=== PATIENT | male | born 1965 | race Caucasian/White ===

== ENCOUNTER → 2019-04-26 11:38 | Outpatient (CLI) | payer MEDICARE, OTHER, SELFPAY ==
--- NOTE | 2019-04-26 12:01 | US_ITS ---
EXAM DESCRIPTION: Ultrasound the testicles CLINICAL HISTORY: 53 years Male, RT GROIN (NOT LEFT)PAIN X 2 WEEKS COMPARISON: None. FINDINGS: A bilateral testicular ultrasound was performed showing a homogeneous internal pattern of the testicles with the following measurements: Right testicle: 3.5 cm. x 2.6cm. x 2.0 cm. Left testicle: 3.3 cm. x 2.6cm. x 2.0 cm. There is good color Doppler flow noted in both testicles, with no evidence of an internal testicular mass. The epididymis appears shows multiple small epididymal cysts bilaterally the largest on the right measuring 6 x 4 x 4 mm in size. A small right hydrocele is seen. US/Testicular with Arterial Flow IMPRESSION: Some tiny epididymal cysts are noted in both epididymis is. No evidence of testicular torsion or other abnormalities are seen. Electronically Signed: Gumaro Graham, at 14:20 EST Tel , Service support ,
[2019-04-26 13:33] LABS: Absolute Lymphocyte Count 1.69 X10^3/uL (0.83-4.51); Absolute Neutrophil Count 5.3 X10^3/uL (2.0-7.7); Basophil# 0.03 X10^3/uL; Basophil% 0.4 % (0-1); Eosinophil# 0.22 X10^3/uL; Eosinophils% 2.7 % (0-5); Hematocrit 48.9 % (40-54); Hemoglobin 16.7 g/dL (13.0-16.5); Lymphocyte # 1.69 X10^3/ul (4.0); Lymphocyte % 20.7 % (19-41); Mean Corp Hgb Conc 34.2 g/dL (32-36); Mean Corpuscular Hgb 28.9 pg (27.0-32.0); Mean Corpuscular Volume 84.6 fL (80-94); Mean Platelet Vol. 9.8 fl (6.2-12.0); Monocyte# 0.88 X10^3/uL; Monocyte% 10.8 % (0-10); NRBC Flagged by Analyzer 0 % (0-5); Neutrophil # 5.31 X10^3/uL (2.7-7.7); Platelet Count 158 K/mm3 (150-450); RBC Distribution Width CV 12.5 % (11.6-14.6); RBC Distribution Width SD 37.5 fl (35.1-43.9); Red Blood Count 5.78 M/mm3 (4.6-6.2); White Blood Count 8.2 K/mm3 (4.4-11.0)
[2019-04-26 13:58] LABS: ALB/GLOB Ratio 1.1 RATIO (0.9-2.4); AST(SGOT) 29 U/L (15-37); Alanine Aminotransfer ALT/SGPT 42 U/L (16-61); Albumin, Serum 4.1 g/dL (3.2-5.0); Alkaline Phosphatase 68 U/L (45-117); Anion Gap 7 (5-15); BUN 13 mg/dL (7-18); BUN/Creat Ratio 10.9 RATIO (10-20); Calcium,Total 8.9 mg/dL (8.5-10.1); Chloride 105 mmol/L (98-107); Creatinine, Serum 1.19 mg/dL (0.70-1.30); EST Glomerular Filtration Rate 68 mL/min (>60); Est Glom Filt Rate - Afr Amer 82 mL/min (>60); Globulin 3.7 g/dL (2.2-4.2); Glucose 99 mg/dL (74-106); Potassium 3.8 mmol/L (3.5-5.1); Protein, Total 7.8 g/dL (6.4-8.2); Sodium Level 138 mmol/L (136-145); Vitamin D,25 Hydroxy 38.3 ng/mL
== END ==
DX: R10.31 Right lower quadrant pain (principal); R79.89 Other specified abnormal findings of blood chemistry; E55.9 Vitamin D deficiency, unspecified
CPT/HCPCS: 36415; 76870; 80053; 82306; 85025; 93976

== ENCOUNTER → 2019-05-06 | Outpatient (CLI) | payer MEDICARE, OTHER, SELFPAY ==
[2019-05-06 10:42] LABS: Hemoglobin A1c 6.4 % (4.2-6.3)
[2019-05-06 10:50] LABS: Vitamin B12 464 pg/mL (211-911)
[2019-05-06 11:01] LABS: Ferritin 75 ng/mL (26-388); Iron Binding Capacity,Total 283 ug/dL (250-450); Magnesium 1.8 mg/dL (1.6-2.6)
[2019-05-06 16:42] LABS: Iron 50 ug/dL (65-175)
== END | disposition home or self-care (01) ==
DX: R53.83 Other fatigue (principal); R73.03 Prediabetes; F41.9 Anxiety disorder, unspecified; E61.1 Iron deficiency
CPT/HCPCS: 36415; 82607; 82728; 82746; 83036; 83540; 83550; 83735

== ENCOUNTER 2019-05-12 19:58 | Emergency (ER) | payer MEDICARE, OTHER, SELFPAY ==
[2019-05-12 20:00] VITALS: BP 137/76; PULSE 83; RESP 18; TEMP 36.8; O2SAT 94; BMI 35.2
[2019-05-12 21:30] VITALS: RESP 16
--- NOTE | 2019-05-12 22:31 | CT_ITS ---
STUDY: CT ABDOMEN AND PELVIS WITH CONTRAST REASON FOR EXAM: Male, 53 years old. Lower abdominal pain. History of diverticulitis. RADIATION DOSAGE (If Supplied By Facility): CTDIvol = ( 16.94 ) mGy, DLP = ( 1335.32 ) mGycm TECHNIQUE: Transaxial images were obtained from the dome of the diaphragm to the symphysis pubis without oral contrast. IV 100mL Isovue-300 was administered. Sagittal and coronal images were reconstructed. Individualized dose optimization techniques were used for this CT. COMPARISON: None. FINDINGS: The visualized lung bases are unremarkable. The visualized portions of the heart are within normal limits. Normal liver. There are surgical clips in the gallbladder fossa consistent with a prior cholecystectomy. There is mild splenomegaly. Spleen measures 15.1 cm in greatest craniocaudad dimension. Normal pancreas. Normal bilateral adrenal glands. Normal right kidney. Normal left kidney. Normal visualized stomach. Normal small intestine. Mild wall thickening, diverticulosis and mild pericolonic inflammatory changes involving a 7.5 cm segment of the mid sigmoid colon left hemipelvis axial image 95 and coronal image 66. Additional scattered diverticuli involving the descending and sigmoid colon. The appendix is probably visualized, is very small, and appears normal. Normal abdominal aorta. Normal inferior vena cava. Normal retroperitoneum. No intra-abdominal free air. Normal urinary bladder. Prostate gland is borderline enlarged. Normal abdominal wall. Mild degenerative changes of the lower thoracic and upper lumbar spine. CT/Abdomen/Pelvis W IV Cont ONLY IMPRESSION: Acute sigmoid diverticulitis without evidence of perforation. Mild splenomegaly. Borderline prostate gland enlargement. Electronically Signed: Pollo Rosales MD at 0:06 EDT , Service support ,
--- NOTE | 2019-05-12 22:35 | ED.VISSUMM ---
- ER Visit Summary Date of Service: 05/12/19 Chief Complaint: Planing of bilateral lower abdominal pain for 3 weeks. History of Present Illness: The patient is a 53 M history of diverticulosis, prior stroke and Parkinson's disease. Prior appendectomy and cholecystectomy. Patient states has had pain for about 3 weeks of lower abdomen. Saw his primary care physician in [facility]. Was placed on antibiotics and had a ultrasound of his testicles which was negative. States the pain is not improved. He was on amoxicillin. Patient denies fever. He denies nausea or vomiting. He denies diarrhea. He does have mild dysuria. Physical Examination: Middle-aged male no acute distress vital signs are stable afebrile. Does not look septic or toxic. HEENT exam normal. Neck nontender. Lungs clear to auscultation. Heart regular rhythm no murmur. Abdomen is soft. Bilateral lower quadrant tenderness. No hernia. No masses. No obstruction. No peritoneal signs. External exam is unremarkable. Normal scrotum and testicles are nontender nonenlarged. No masses. No inguinal lymphadenopathy. Extremities moves all 4. Neurologically is awake and alert. Test Results: Again at 10. Hemoglobin 15. No bands chemistries normal except creatinine 1.41. Liver enzymes negative. UA negative. CAT scan abdomen pelvis with IV contrast read both the radiologist and reviewed by me shows sigmoid diverticulitis. Mild splenomegaly. Mild BPH. I went over all the test results with the patient and his significant other. Emergency Department Course and Treatment: Patient treated with IV morphine and Zofran for pain. A liter of normal saline. Screening labs and CAT scan are being obtained along with urinalysis. Patient given 1 dose of oral Cipro and Flagyl prior to discharge. Treatment Plan: Cipro twice daily for 10 days. Flagyl 3 times daily for 10 days. [place] for pain. Zofran for nausea. Follow-up. Disposition: Discharge Impression: Acute bilateral lower quadrant abdominal pain [place] to sigmoid diverticulitis This note was generated with [employer] dictation software. It may contain incorrect words, spelling, and punctuation that were not noted in review of the chart prior to signing ED Disposition - Plan for ED Patient: Referrals: [facility] Doctor,Out of [NON-STAFF] -
[2019-05-12] MEDS: 0.9% Normal Saline 1,000 ML 1000 ML IV (22:50)
[2019-05-12] MEDS: Ondansetron 4 MG/2 ML Vial IV (22:50)
[2019-05-12] MEDS: morphine 8 MG/ML Syringe 6 MG IV (22:52)
[2019-05-12 22:55] LABS: Bacteria 0 SEEN /hpf (None Seen); Mucous, Urine 0 SEEN /hpf (<or=2+); Red Blood Cells-Urine 0 SEEN /hpf (0-5); Squamous Epithelial Cells - UA 0 SEEN /hpf (0-5); White Blood Cells 0 SEEN /hpf (0-5)
[2019-05-12 22:58] LABS: Color, Urine Yellow (Yellow); Glucose, Dipstick Normal (Normal); Ketone-Dipstick Negative (Negative); Leukocyte Esterase-Dipstick Negative /ul (Negative); Nitrite-Dipstick Negative (Negative); Occult Blood-Urine 10 /ul (Negative); Protein-Dipstick Negative (Negative); Specific Gravity, Urine 1.015 (1.002-1.030); Urine Bilirubin Dipstick Negative (Negative); Urine Clarity Clear (Clear); Urine Urobilinogen Normal (Normal)
[2019-05-12 23:00] LABS: Absolute Lymphocyte Count 1.72 X10^3/uL (0.83-4.51); Absolute Neutrophil Count 7.5 X10^3/uL (2.0-7.7); Basophil# 0.06 X10^3/uL; Basophil% 0.6 % (0-1); Eosinophil# 0.35 X10^3/uL; Eosinophils% 3.2 % (0-5); Hematocrit 47.2 % (40-54); Hemoglobin 15.8 g/dL (13.0-16.5); Lymphocyte # 1.72 X10^3/ul (4.0); Lymphocyte % 15.8 % (19-41); Mean Corp Hgb Conc 33.5 g/dL (32-36); Mean Corpuscular Hgb 28.3 pg (27.0-32.0); Mean Corpuscular Volume 84.4 fL (80-94); Mean Platelet Vol. 10.1 fl (6.2-12.0); Monocyte# 1.07 X10^3/uL; Monocyte% 9.8 % (0-10); NRBC Flagged by Analyzer 0 % (0-5); Neutrophil # 7.52 X10^3/uL (2.7-7.7); Neutrophil % 69.1 % (47-70); Platelet Count 166 K/mm3 (150-450); RBC Distribution Width CV 12.8 % (11.6-14.6); Red Blood Count 5.59 M/mm3 (4.6-6.2); White Blood Count 10.9 K/mm3 (4.4-11.0)
[2019-05-12 23:07] LABS: ALB/GLOB Ratio 1.1 RATIO (0.9-2.4); AST(SGOT) 21 U/L (15-37); Alanine Aminotransfer ALT/SGPT 36 U/L (16-61); Albumin, Serum 3.9 g/dL (3.2-5.0); Alkaline Phosphatase 69 U/L (45-117); Anion Gap 8 (5-15); BUN 14 mg/dL (7-18); BUN/Creat Ratio 9.9 RATIO (10-20); Calcium,Total 8.8 mg/dL (8.5-10.1); Chloride 106 mmol/L (98-107); Creatinine, Serum 1.41 mg/dL (0.70-1.30); EST Glomerular Filtration Rate 56 mL/min (>60); Est Glom Filt Rate - Afr Amer 67 mL/min (>60); Globulin 3.7 g/dL (2.2-4.2); Glucose 110 mg/dL (74-106); Protein, Total 7.6 g/dL (6.4-8.2); Sodium Level 139 mmol/L (136-145)
[2019-05-12 23:32] VITALS: BP 141/78; PULSE 74; RESP 14; TEMP 36.6; O2SAT 95
[2019-05-13] MEDS: morphine 8 MG/ML Syringe 6 MG IV (00:01)
--- NOTE | 2019-05-13 00:31 | ED.DEP ---
ED Disposition - Plan for ED Patient: Disposition: Home or Assisted Living Instructions: Diverticulitis Prescriptions: Ciprofloxacin [Cipro] 500 mg PO BID #20 tab Prescription Printed Metronidazole [Flagyl] 500 mg PO Q8 #30 tab Prescription Printed Hydrocodone Bitart/Apap 5-325 [Woodrow 5MG-325MG] 1 tab PO Q4H PRN PRN 2 Days #14 tab PRN Reason: Pain Prescription Printed Ondansetron [Zofran Odt] 4 mg PO Q8H PRN PRN #10 tab PRN Reason: Nausea Prescription Printed Referrals: [facility],Out of [NON-STAFF] - 1 Week Additional Instructions: With your doctor in a week to ensure you are improving. [place]row as needed for pain and/or Motrin. Cipro 1 pill 2 times a day for 10 days. Flagyl 1 pill 3 times a day for 10 days. Do not drink any alcohol while you are on the Cipro. Plenty of fluids and rest. Zofran as needed for nausea.
[2019-05-13] MEDS: metroNIDAZOLE 500 MG Tablet PO (00:50)
[2019-05-13] MEDS: Ciprofloxacin 500 MG Tablet PO (00:50)
[2019-05-13 00:54] VITALS: RESP 16
== END 2019-05-13 00:55 | disposition home or self-care (01) ==
PROVIDERS: Emergency Provider Emergency Medicine
DX: K57.32 Diverticulitis of large intestine without perforation or abscess without bleeding (principal); R30.0 Dysuria; G20 Parkinson's disease; R16.1 Splenomegaly, not elsewhere classified; N40.0 Benign prostatic hyperplasia without lower urinary tract symptoms; Z79.82 Long term (current) use of aspirin; Z79.899 Other long term (current) drug therapy; Z86.73 Personal history of transient ischemic attack (TIA), and cerebral infarction without residual deficits; Z90.49 Acquired absence of other specified parts of digestive tract
CPT/HCPCS: 74177; 80053; 81001; 85025; 96361; 96374; 96375; 96376; 99285; J7030; Q9967; A4216; J2405

== ENCOUNTER → 2019-07-26 09:21 | Outpatient (CLI) | payer MEDICARE, SELFPAY ==
--- NOTE | 2019-07-26 09:35 | MRI_ITS ---
STUDY: MRI ABDOMEN WITH AND WITHOUT CONTRAST REASON FOR EXAM: Male, 54 years old. ruq pain -- pain, enlarged spleen, f/t CT TECHNIQUE: Standardized fat and water weighted pulse sequences were obtained in all 3 orthogonal planes post contrast administration. dotarem 23ml IV was administered for the contrast portion of the examination. COMPARISON: CT 05/12/2019 FINDINGS: The visualized lung bases are unremarkable. The visualized portions of the heart are within normal limits. Normal liver. There are surgical clips in the gallbladder fossa consistent with a prior cholecystectomy. There is mild splenomegaly. Normal pancreas. Normal bilateral adrenal glands. Normal right kidney. Normal left kidney. Normal visualized stomach. Normal small intestine. Normal colon. There is non-visualization of the appendix. Normal abdominal aorta. Normal inferior vena cava. Normal retroperitoneum. Normal abdominal wall. Normal osseous structures. MRI/MRI Abd WITH and W/O Contrast IMPRESSION: Mild splenomegaly. Electronically Signed: Arcenio Deng MD at 10:58 EDT Tel , Service support ,
== END ==
DX: R16.1 Splenomegaly, not elsewhere classified (principal); R10.11 Right upper quadrant pain
CPT/HCPCS: 74183; A9575

== ENCOUNTER 2019-10-17 10:38 | Emergency (ER) | payer OTHER, MEDICARE, SELFPAY ==
[2019-10-17 10:39] VITALS: BP 140/78; PULSE 107; PULSE 108; RESP 17; RESP 19; TEMP 36.6; O2SAT 94; O2SAT 95; BMI 34.1
--- NOTE | 2019-10-17 11:07 | CT_ITS ---
STUDY: CT ABDOMEN AND PELVIS WITH CONTRAST REASON FOR EXAM: Male, 54 years old. LLQ AND RLQ PAIN/NAUSEA/HX OF DIVERTICULITIS RADIATION DOSAGE (If Supplied By Facility): CTDIvol = ( 15.90 ) mGy, DLP = ( 1107.40 ) mGycm TECHNIQUE: Transaxial images were obtained from the dome of the diaphragm to the symphysis pubis without oral contrast. Oral and amp; IV [place] and amp; 100mL Isovue-300 was administered. Sagittal and coronal images were reconstructed. Individualized dose optimization techniques were used for this CT. COMPARISON: None. FINDINGS: The visualized lung bases are unremarkable. The visualized portions of the heart are within normal limits. Normal liver. There are surgical clips in the gallbladder fossa consistent with a prior cholecystectomy. Normal spleen. Normal pancreas. Normal bilateral adrenal glands. Normal right kidney. Normal left kidney. Normal visualized stomach. Normal small intestine. There is diverticulosis, with thickening of the colon wall, and pericolonic inflammation changes consistent with acute diverticulitis. There is non-visualization of the appendix. Normal abdominal aorta. Normal inferior vena cava. Normal retroperitoneum. Normal urinary bladder. Normal abdominal wall. Normal osseous structures. CT/Abdomen/Pelvis WITH Contrast IMPRESSION: Sigmoid diverticulitis. There is no evidence of abscess. There is no free air in the abdomen. Electronically Signed: Damari Mtz, at 14:06 EDT Tel , Service support ,
[2019-10-17] MEDS: Ondansetron 4 MG/2 ML Vial IV (11:15)
[2019-10-17] MEDS: Morphine 4 MG/ML Syringe IV ×2 (11:15→14:24)
[2019-10-17 11:27] LABS: Absolute Lymphocyte Count 0.72 X10^3/uL (0.83-4.51); Absolute Neutrophil Count 13.1 X10^3/uL (2.0-7.7); Basophil# 0.03 X10^3/uL; Basophil% 0.2 % (0-1); Eosinophils% 0.7 % (0-5); Hematocrit 45.7 % (40-54); Hemoglobin 15.6 g/dL (13.0-16.5); Lymphocyte # 0.72 X10^3/ul (4.0); Lymphocyte % 4.7 % (19-41); Mean Corp Hgb Conc 34.1 g/dL (32-36); Mean Corpuscular Hgb 29.4 pg (27.0-32.0); Mean Corpuscular Volume 86.2 fL (80-94); Monocyte# 1.34 X10^3/uL; Monocyte% 8.7 % (0-10); NRBC Flagged by Analyzer 0 % (0-5); Neutrophil % 85.2 % (47-70); Platelet Count 141 K/mm3 (150-450); RBC Distribution Width CV 12.1 % (11.6-14.6); RBC Distribution Width SD 38.1 fl (35.1-43.9); White Blood Count 15.4 K/mm3 (4.4-11.0)
[2019-10-17 11:39] LABS: ALB/GLOB Ratio 1.1 RATIO (0.9-2.4); AST(SGOT) 15 U/L (15-37); Alanine Aminotransfer ALT/SGPT 32 U/L (16-61); Albumin, Serum 3.9 g/dL (3.2-5.0); Alkaline Phosphatase 68 U/L (45-117); BUN 13 mg/dL (7-18); BUN/Creat Ratio 10.7 RATIO (10-20); Calcium,Total 8.9 mg/dL (8.5-10.1); Chloride 106 mmol/L (98-107); Creatinine, Serum 1.22 mg/dL (0.70-1.30); EST Glomerular Filtration Rate 66 mL/min (>60); Est Glom Filt Rate - Afr Amer 80 mL/min (>60); Estimated Creatinine Clearance 71.47 ml/min; Globulin 3.5 g/dL (2.2-4.2); Glucose 145 mg/dL (74-106); Lipase 84 U/L (73-393); Potassium 4.2 mmol/L (3.5-5.1); Protein, Total 7.4 g/dL (6.4-8.2); Sodium Level 137 mmol/L (136-145)
[2019-10-17 11:40] LABS: Anion Gap 2 (5-15)
--- NOTE | 2019-10-17 11:52 | ED.VISSUMM ---
- ER Visit Summary Date of Service: 10/17/19 Chief Complaint: Abdominal pain History of Present Illness: The patient is a 54 M presenting with abdominal pain. Patient states this started yesterday. He states he has had multiple episodes of diverticulitis and this feels similar. He has had nausea and vomiting. He states his last bowel movement was yesterday. Denies blood in his stool. History of previous appendectomy and cholecystectomy. Denies other complaints. Physical Examination: Vitals are stable. Patient is afebrile. Alert no acute distress. HEENT exam is unremarkable. Neck is supple. Lungs are clear and equal bilaterally. Heart is regular rate and rhythm. Abdomen is soft left lower quadrant and right lower quadrant tenderness with no guarding or rebound Extremities are unremarkable. Skin is warm and dry. Remainder of exam is unremarkable. Emergency Department Course and Treatment: Patient was given morphine, Zofran IV. CBC shows white count 15.4, platelet 141. Chemistries show glucose 145. Liver lipase are normal. Urinalysis unremarkable. CT abdomen pelvis shows sigmoid diverticulitis. There is no evidence of abscess. There is no free air in the abdomen. Patient continues to have pain was given a GI cocktail and additional dose of morphine. On reevaluation, patient is resting comfortably. He states his primary care physician already called him in a prescription for Cipro and Flagyl. He is advised to take these medications until complete. Advised to follow-up with primary care physician. Also given referral to Dr. Giraldo, general surgery for recurrent diverticulitis. Advised return to ED for worsening complaints. Disposition: Discharge home Impression: Diverticulitis This note was generated with [employer] dictation software. It may contain incorrect words, spelling, and punctuation that were not noted in review of the chart prior to signing ED Disposition - Plan for ED Patient: Instructions: ED Diverticulitis Referrals: Thuy Hannah [Other] Tay Giraldo MD [STAFF PHYSICIAN] -
[2019-10-17 12:11] LABS: Bacteria 0 SEEN /hpf (None Seen); Squamous Epithelial Cells - UA 0 SEEN /hpf (0-5); White Blood Cells 0 SEEN /hpf (0-5)
[2019-10-17 12:15] LABS: Color, Urine Yellow (Yellow); Glucose, Dipstick Normal (Normal); Ketone-Dipstick Negative (Negative); Leukocyte Esterase-Dipstick 25 /ul (Negative); Nitrite-Dipstick Negative (Negative); Occult Blood-Urine 10 /ul (Negative); Protein-Dipstick 15 mg/dl (Negative); Urine Bilirubin Dipstick Negative (Negative); Urine Clarity Clear (Clear); Urine Urobilinogen Normal (Normal); Urine pH 6.5 (5.0 - 8.0)
[2019-10-17 12:20] LABS: Red Blood Cells-Urine 0-5 SEEN /hpf (0-5)
[2019-10-17 12:21] LABS: Mucous, Urine RARE /hpf (<or=2+)
[2019-10-17] MEDS: Mag Hydrox/Al Hydrox/Simeth 30 ML UDC PO (13:15)
[2019-10-17 14:27] VITALS: BP 121/76; RESP 16
--- NOTE | 2019-10-17 14:54 | ED.DEP ---
ED Disposition - Plan for ED Patient: Instructions: ED Diverticulitis Referrals: Thuy Hannah [Other]
--- NOTE | 2019-10-17 14:56 | ED.DEP ---
ED Disposition - Plan for ED Patient: Instructions: ED Diverticulitis Referrals: Thuy Hannah [Other] Tay Giraldo MD [STAFF PHYSICIAN] -
[2019-10-17] MEDS: Ciprofloxacin 500 MG Tablet PO (15:11)
[2019-10-17] MEDS: metroNIDAZOLE 500 MG Tablet PO (15:12)
[2019-10-17 15:17] VITALS: RESP 18
== END 2019-10-17 15:18 | disposition home or self-care (01) ==
LOC: ED 11:29
PROVIDERS: Emergency Provider Emergency Medicine
DX: K57.32 Diverticulitis of large intestine without perforation or abscess without bleeding (principal); G20 Parkinson's disease; Z79.82 Long term (current) use of aspirin; Z79.899 Other long term (current) drug therapy; Z90.49 Acquired absence of other specified parts of digestive tract
CPT/HCPCS: 74177; 80053; 81001; 83690; 85025; 96374; 96375; 96376; 99284; J7030; Q9967; A4216; J2405

== ENCOUNTER 2020-01-31 08:59 | Day surgery (SDC) | payer OTHER, MEDICARE, SELFPAY ==
[2020-01-07 12:35] VITALS: BMI 34.7
--- NOTE | 2020-01-31 09:00 | HP_ITS ---
Intake Vital Signs 01/07/20 Height 5 ft 11 in 01/07/20 Weight: 249 lb 01/07/20 BP 144/78 H 01/07/20 Blood Pressure Location Rt brachial 01/07/20 Position Sitting 01/07/20 Respiration 18 01/07/20 Pulse 72 01/07/20 Pulse Source Monitor 01/07/20 Temp 98.3 F 01/07/20 Temp Source Temporal 01/07/20 Pulse Oximetry (%) 96 01/07/20 Oxygen Delivery Method room air Intake Visit Reasons: DIVERTICULITIS Chief Complaint: Diverticulitis/abdominal pain Software Quality Analyst Required: No Accompanied by: Is patient in pain?: Yes Allergies No Known Allergies Allergy (Verified 01/07/20 12:37) Medications Aspirin 81 mg PO DAILY 05/12/19 [History Confirmed 01/07/20] Cholecalciferol (VIT D3) [Vitamin D] 2,000 unit PO DAILY 05/12/19 [History Confirmed 01/07/20] Melatonin [Melatin] 9 mg PO DAILY 05/12/19 [History Confirmed 01/07/20] Pantoprazole Sodium [Protonix] 80 mg PO BID 05/12/19 [History Confirmed 01/07/20] Paroxetine HCl 75 mg PO DAILY 05/12/19 [History Confirmed 01/07/20] Trazodone HCl 250 mg PO DAILY 05/12/19 [History Confirmed 01/07/20] atorvastatin 20 mg tablet 40 mg PO DAILY tab 01/07/20 [History Confirmed 01/07/20] carbidopa 50 mg-levodopa 200 mg-entacapone 200 mg tablet 1 tab PO DAILY 01/07/20 [History Confirmed 01/07/20] carbidopa ER 36.25 mg-levodopa 145 mg capsule,extended release 1 cap PO TID 01/07/20 [History Confirmed 01/07/20] diltiazem HCl 30 mg tablet 60 mg PO DAILY tab 01/07/20 [History Confirmed 01/07/20] prazosin 5 mg capsule 6 mg PO DAILY cap 01/07/20 [History Confirmed 01/07/20] [facility] Medical History GERD (gastroesophageal reflux disease) (Acute) Constipation (Acute) Sleep apnea (Acute) Depression with anxiety (Acute) Abdominal pain (Acute) Diverticulitis (Acute) Surgical History (Updated 01/07/20 @ 12:34 by Itzel Delatorre) History of appendectomy (Acute) History of laparoscopic cholecystectomy (Acute) Family History (Updated 01/07/20 @ 12:48 by Itzle Delatorre) Mother Heart disease Hypertension High cholesterol Cancer skin cancer Father Heart disease High cholesterol Hypertension CVA (cerebral vascular accident) Social History (Updated 01/07/20 @ 13:[address] Jay Chavez MD) Smoking Status: Smoker, status unknown alcohol intake: never substance use type: does not use HPI HPI HPI: KRISHAN BURNHAM is a 54 M who presents to the office today for HPI HPI Surgical H&P: Yes HPI: KRISHAN BURNHAM, is a 54 M who presents to the office today for diverticulitis. The patient has had several bouts of diverticulitis in his past. He reports he chronically has left lower quadrant pain. His last bout of diverticulitis was this past March and this past September. He reports he is never had complicated diverticulitis. He does have constipation leading up to his flareups. He reports no nausea or vomiting. He has no fevers or chills. He has no history or family history of inflammatory bowel disease. His last colonoscopy was 6 years ago. ROS General General: No weight change, appetite, fatigue, colon cancer, breast cancer or weakness Endo Endocrine: No thyroid disease, diabetes mellitus, thyroid cancer, Hair loss, heat intolerance or cold intolerance Skin Skin: No rash or changing moles Breast Breast: No left breast lump, right breast lump, nipple discharge, breast pain, abnormal mammogram, abnormal US or breast enlargement Musc Musculoskeletal: No back problems, arthritis, rheumatoid arthritis, gout or joint pain Cardio Cardiovascular: No murmur, pacemaker, heart disease, atrial fibrillation, high blood pressure, heart attack, heart stent, palpitations, shortness of breat with exertion or chest pain Psych Psychiatric: Yes depression and anxiety; no hearing voices Resp Respiratory: No shortness of breath, Yes sleep apnea, No cough, No COPD, No asthma, No emphysema, No wheezing Gastro Gastrointestinal: Yes abdominal pain, No nausea or vomiting, No diarrhea, Yes constipation, No blood in stool, Yes acid reflux, No hemorrhoids, No ulcers, No gallbladder problem, No black,tarry stools Skyler Hematologic: No blood thinners, No blood disorders, No bleeding, No anemia, No blood clots Neuro Neurologic: No system reviewed and no additional complaints, except as docu, No as per HPI, No abnormal walking, No abnormal hearing, No abnormal movements, No abnormal speech, No behavioral changes, No burning sensations, No confusion, No seizure-like activity, No unsteadiness, No dizziness, No localized weakness, No frequent falls, No headache(s), No lack of coordination, No loss of vision, No memory loss, No numbness, No other visual disturbances, No radiating pain, No restless legs, No sensory deficit, No fainting, No tingling, No tremor(s), No weakness, No other Exam Const General: cooperative Orientation: alert, oriented x3 Chest Breast Palpation: No nipple discharge Resp Effort & Inspection: normal respiratory effort Auscultation: clear to auscultation bilaterally Cardio Rate: regular rate Rhythm: regular rhythm Heart Sounds: no murmurs GI Inspection: non-distended Palpation: soft, tender in the LLQ Assessment & Plan Problems 1. 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 I recommended sigmoid colectomy to the patient. I discussed this with him in detail. I recommended colonoscopy as his last one was 6 years ago and he did have polyps. I explained endoscopy in detail to the patient. I explained the risks including but not limited to stroke or heart attack with anesthesia, perforation of the GI tract, bleeding, infection. I explained that any of these could necessitate further emergency surgery. The patient understands and all questions were answered sufficiently. The patient wishes to proceed with procedure. Jay Chavez MD Pager: [facility] [address] [place] [address], [address] [place] [address] Office: Orders Orders: Colonoscopy Today K57.92 Coding Level of Care Code Off vis,new,level 3 Diagnoses Diverticulitis K57.92 I have re-examined the patient. There are no clinical changes since date of exam.
[2020-01-31 09:16] VITALS: BP 133/78; PULSE 82; RESP 16; TEMP 36.8; O2SAT 98; BMI 34.1
[2020-01-31] MEDS: Lactated Ringers 1,000 ML 100 ML IV (09:27)
--- NOTE | 2020-01-31 10:34 | OP.COLON_ITS ---
Patient Name: Arcenio Hernández Procedure Date: 01/31/2020 10:11 AM Date of : 1965 Age: 54 Procedure: Colonoscopy Indications: Follow-up of diverticulitis Providers: Jay Chavez MD Referring MD: Jay Chavez MD Medicines: Monitored Anesthesia Care Patient Profile: This is a 54 year old male. Refer to note in patient chart for documentation of history and physical. Last Colonoscopy: several years ago. Complications: No immediate complications. Procedure: Pre-Anesthesia Assessment: - Prior to the procedure, a History and Physical was performed, and patient medications and allergies were reviewed. The patient's tolerance of previous anesthesia was also reviewed. The risks and benefits of the procedure and the sedation options and risks were discussed with the patient. All questions were answered, and informed consent was obtained. Prior Anticoagulants: The patient has taken no previous anticoagulant or antiplatelet agents. After reviewing the risks and benefits, the patient was deemed in satisfactory condition to undergo the procedure. After I obtained informed consent, the scope was passed under direct vision. Throughout the procedure, the patient's blood pressure, pulse, and oxygen saturations were monitored continuously. The Colonoscope was introduced through the anus and advanced to the cecum, identified by appendiceal orifice and ileocecal valve. The colonoscopy was performed without difficulty. The patient tolerated the procedure well. The quality of the bowel preparation was good. Scope In: 10:18:45 AM Scope Withdrawal Time 0 hours 6 minutes 14 seconds Scope Out: 10:28:07 AM Total Procedure Duration Time 0 hours 9 minutes 22 seconds Findings: A few small-mouthed diverticula were found in the sigmoid colon. The entire examined colon appeared normal on direct and retroflexion views. Impression: - Diverticulosis in the sigmoid colon. - The entire examined colon is normal on direct and retroflexion views. - No specimens collected. Recommendation: - Discharge patient to home. - Resume previous diet. - Continue present medications. - Repeat colonoscopy in 10 years for screening purposes. - Return to my office at appointment to be scheduled. Procedure Code(s): --- Professional --- 11256, Colonoscopy, flexible; diagnostic, including collection of specimen(s) by brushing or washing, when performed (separate procedure) Diagnosis Code(s): --- Professional --- K57.32, Diverticulitis of large intestine without perforation or abscess without bleeding K57.30, Diverticulosis of large intestine without perforation or abscess without bleeding CPT copyright 2017 [employer]. All rights reserved. The codes documented in this report are preliminary and upon radiologic technology teacher review may be revised to meet current compliance requirements. Jay Chavez MD 01/31/2020 10:34:23 AM This report has been signed electronically. Number of Addenda: 0 Note Initiated On: 01/31/2020 10:11 AM
[2020-01-31 10:35] VITALS: BP 133/78; BP 91/56; PULSE 68; RESP 16; TEMP 36.8; O2SAT 95
--- NOTE | 2020-01-31 10:35 | OP.CCLET_ITS ---
01/31/2020 Thuy Hannah Np-c Re : Colonoscopy procedure for Arcenio Hernández [place] This procedure was performed on Friday, January 31, 2020. My impressions and recommendations are as follows: Impressions : - Diverticulosis in the sigmoid colon. - The entire examined colon is normal on direct and retroflexion views. - No specimens collected. Recommendations : - Discharge patient to home. - Resume previous diet. - Continue present medications. - Repeat colonoscopy in 10 years for screening purposes. - Return to my office at appointment to be scheduled. My findings are described in the full procedure note, which is enclosed. If I can be of further assistance, please feel free to contact me at Doctor phone number(s): , Work: . Sincerely, Jay Chavez MD 01/31/2020 10:34:23 AM This report has been signed electronically.
[2020-01-31 10:40] VITALS: BP 133/78; BP 94/56; PULSE 67; RESP 16; O2SAT 94
[2020-01-31 10:45] VITALS: BP 102/53; BP 133/78; PULSE 68; RESP 16; O2SAT 94
[2020-01-31 10:50] VITALS: BP 118/80; BP 133/78; PULSE 77; RESP 16; TEMP 37.2; O2SAT 94
== END 2020-01-31 11:14 | disposition home or self-care (01) ==
LOC: EN 09:00 → AC 09:00
PROVIDERS: PCP Nurse Practitioner Family; Referring Provider Surgery; Visit Provider Surgery
PROC: 0DJD8ZZ Inspection of Lower Intestinal Tract, Via Natural or Artificial Opening Endoscopic (ICD-10-PCS; CPT 45378; principal; 2020-01-31 09:55)
DX: K57.32 Diverticulitis of large intestine without perforation or abscess without bleeding (principal); K59.00 Constipation, unspecified; G20 Parkinson's disease; E78.00 Pure hypercholesterolemia, unspecified; Z79.82 Long term (current) use of aspirin; Z79.899 Other long term (current) drug therapy; Z86.010 Personal history of colon polyps
CPT/HCPCS: 45378; 87426; C9803; J7120; J2405

== ENCOUNTER 2020-02-24 08:51 | Inpatient (IN) | payer OTHER, MEDICARE, SELFPAY ==
[2020-02-07 09:35] VITALS: BMI 33.5
[2020-02-19 10:25] LABS: Hematocrit 47.3 % (40-54); Mean Corp Hgb Conc 33.8 g/dL (32-36); Mean Corpuscular Hgb 29.8 pg (27.0-32.0); Mean Corpuscular Volume 88.1 fL (80-94); Mean Platelet Vol. 10.1 fl (6.2-12.0); Platelet Count 138 K/mm3 (150-450); RBC Distribution Width CV 12.5 % (11.6-14.6); RBC Distribution Width SD 39.8 fl (35.1-43.9); Red Blood Count 5.37 M/mm3 (4.6-6.2); White Blood Count 7.3 K/mm3 (4.4-11.0)
[2020-02-19 10:38] LABS: Magnesium 2.2 mg/dL (1.6-2.6)
--- NOTE | 2020-02-19 10:57 | EKG12_ITS ---
Test Reason : PREOP Blood Pressure : / mmHG Vent. Rate : 065 BPM Atrial Rate : 065 BPM P-R Int : 184 ms QRS Dur : 080 ms QT Int : 378 ms P-R-T Axes : 022 -09 032 degrees QTc Int : 393 ms Normal sinus rhythm Normal ECG Confirmed by GINA REDD, JUICE ([id number]), science editor MENDY CHEEMA ([id number]) on 02/20/2020 8:46:15 AM Referred By: Jay Chavez Confirmed By:JUICE FUENTES MD
[2020-02-24] VITALS (12 sets, daily range): BP systolic 119–183; BP diastolic 69–93; PULSE 75–85; RESP 16–18; TEMP 36.6–37.4; O2SAT 90–100; BMI 34.7
--- NOTE | 2020-02-24 08:26 | HP_ITS ---
Intake Vital Signs 02/07/20 Height 5 ft 11 in 02/07/20 Weight: 240 lb 02/07/20 BMI 33.5 02/07/20 BP 128/80 H 02/07/20 Blood Pressure Location Lt brachial 02/07/20 Position Sitting 02/07/20 Respiration 16 02/07/20 Pulse 67 02/07/20 Pulse Source Monitor 02/07/20 Temp 98.4 F 02/07/20 Temp Source Temporal 02/07/20 Pulse Oximetry (%) 97 02/07/20 Oxygen Delivery Method room air Intake Visit Reasons: 1wk f/u C-Scope 01/30 Chief Complaint: Diverticulitis/abdominal pain Coating Mixer Required: No Is patient in pain?: Yes (LLQ) Pain scale (1-10): 3 Allergies No Known Allergies Allergy (Verified 02/07/20 09:42) Medications Aspirin 81 mg PO DAILY 05/12/19 [History Confirmed 02/07/20] Cholecalciferol (VIT D3) [Vitamin D] 2,000 unit PO DAILY 05/12/19 [History Confirmed 02/07/20] Melatonin [Melatin] 9 mg PO DAILY 05/12/19 [History Confirmed 02/07/20] Pantoprazole Sodium [Protonix] 80 mg PO BID 05/12/19 [History Confirmed 02/07/20] Paroxetine HCl 75 mg PO DAILY 05/12/19 [History Confirmed 02/07/20] Trazodone HCl 250 mg PO DAILY 05/12/19 [History Confirmed 02/07/20] atorvastatin 20 mg tablet 40 mg PO DAILY tab 01/07/20 [History Confirmed 02/07/20] carbidopa 50 mg-levodopa 200 mg-entacapone 200 mg tablet 1 tab PO DAILY 01/07/20 [History Confirmed 02/07/20] carbidopa ER 36.25 mg-levodopa 145 mg capsule,extended release 1 cap PO TID 01/07/20 [History Confirmed 02/07/20] diltiazem HCl 30 mg tablet 60 mg PO DAILY tab 01/07/20 [History Confirmed 02/07/20] prazosin 5 mg capsule 6 mg PO DAILY cap 01/07/20 [History Confirmed 02/07/20] metronidazole 500 mg tablet 500 mg PO .COMPLEX #6 tab 02/07/20 [Rx Confirmed 02/07/20] neomycin 500 mg tablet 500 mg PO .COMPLEX #6 tab 02/07/20 [Rx Confirmed 02/07/20] [facility] Medical History GERD (gastroesophageal reflux disease) (Acute) Constipation (Acute) Sleep apnea (Acute) Depression with anxiety (Acute) Abdominal pain (Acute) Diverticulitis (Acute) Surgical History History of appendectomy (Acute) History of laparoscopic cholecystectomy (Acute) Family History Mother Heart disease Hypertension High cholesterol Cancer skin cancer Father Heart disease High cholesterol Hypertension CVA (cerebral vascular accident) Social History (Updated 02/07/20 @ 09:[address] Jay Chavez MD) Smoking Status: Never smoker alcohol intake: never substance use type: does not use HPI HPI HPI: KRISHAN BURNHAM, is a 54 M who presents to the office today for HPI HPI Surgical H&P: Yes HPI: KRISHAN BURNHAM, is a 54 M who presents to the office today for Diverticulitis. The patient recently had colonoscopy for recurrent diverticulitis and the colonoscopy was normal except for diverticulosis. The patient is here to discuss elective sigmoid colectomy. The patient is not having any recurrent nausea or vomiting or severe pain. He has chronic dull left lower quadrant pain. ROS General General: No weight change, appetite, fatigue, colon cancer, breast cancer or weakness Endo Endocrine: No thyroid disease, diabetes mellitus, thyroid cancer, Hair loss, heat intolerance or cold intolerance Skin Skin: No rash or changing moles Breast Breast: No left breast lump, right breast lump, nipple discharge, breast pain, abnormal mammogram, abnormal US or breast enlargement Musc Musculoskeletal: No back problems, arthritis, rheumatoid arthritis, gout or joint pain Cardio Cardiovascular: No murmur, pacemaker, heart disease, atrial fibrillation, high blood pressure, heart attack, heart stent, palpitations, shortness of breat with exertion or chest pain Psych Psychiatric: Yes depression and anxiety; no hearing voices Resp Respiratory: No shortness of breath, Yes sleep apnea, No cough, No COPD, No asthma, No emphysema, No wheezing Gastro Gastrointestinal: Yes abdominal pain, No nausea or vomiting, No diarrhea, Yes constipation, No blood in stool, Yes acid reflux, No hemorrhoids, No ulcers, No gallbladder problem, No black,tarry stools Skyler Hematologic: No blood thinners, No blood disorders, No bleeding, No anemia, No blood clots Neuro Neurologic: No system reviewed and no additional complaints, except as docu, No as per HPI, No abnormal walking, No abnormal hearing, No abnormal movements, No abnormal speech, No behavioral changes, No burning sensations, No confusion, No seizure-like activity, No unsteadiness, No dizziness, No localized weakness, No frequent falls, No headache(s), No lack of coordination, No loss of vision, No memory loss, No numbness, No other visual disturbances, No radiating pain, No restless legs, No sensory deficit, No fainting, No tingling, No tremor(s), No weakness, No other Exam Const General: cooperative Orientation: alert, oriented x3 Chest Breast Palpation: No nipple discharge Resp Effort & Inspection: normal respiratory effort Auscultation: clear to auscultation bilaterally Cardio Rate: regular rate Rhythm: regular rhythm Heart Sounds: no murmurs GI Inspection: non-distended Palpation: soft, nontender Assessment & Plan Problems 1. Diverticulitis K57.92 Plan The patient has recurring diverticulitis that happens several times per year and would like a sigmoid colectomy. I discussed laparoscopic sigmoid colectomy with the patient in detail as well as the risks of bleeding, infection, injury to other organs like the ureter, bowel, bladder. The patient understands risks and wants to proceed with laparoscopic possible open sigmoid resection. I discussed hospitalization after surgery as well as ERAS protocol. Patient had bowel prep as well as antibiotic bowel prep ordered. We discussed the current risks associated with COVID-19. While it is understood that there is a community spread of COVID-19, the risk of christ COVID-19 while at [facility] ([facility]) is very low; however, the risk cannot be completely mitigated because of the community spread of the disease. We discussed in detail the risk of exposure to and/or potential harm posed by the COVID-19 virus with having a surgery/procedure at this time versus the risk of delaying the surgery/procedure. It is not possible to know either the risk of delaying the surgery or procedure or chance of getting an infection with perfect accuracy, but a joint decision was made to proceed at this time with the scheduled surgery/procedure as indicated on the consent form. Patient was notified that we will need to comply with any screening or testing [facility] wishes to perform or that surgery may be delayed for any positive results. I discussed that the patient surgery may be delayed if Covid necessitates due to bed restrictions or surgery cancellations. If that occurs the patient will be rescheduled for the spring. Jay Chavez MD Pager: [facility] [address] [place] [address] [address] [place] [address] Office: Medications New: metronidazole (Flagyl) 500 mg PO; 2 tabs at 1300, 2000 and 2100 night before surgery 6 tabs 0RF neomycin 500 mg PO; 2 tabs at 1300, 2000 and 2100 night before surgery 6 tabs 0RF Coding Level of Care Code Off vis,est,level 4 Diagnoses Diverticulitis K57.92 I have re-examined the patient. There are no clinical changes since date of exam.
[2020-02-24] MEDS: Lactated Ringers 1,000 ML 40 ML IV ×2 (09:53→18:43)
[2020-02-24] MEDS: Acetaminophen 500 MG Tablet 1000 MG PO ×3 (09:56→21:25)
[2020-02-24] MEDS: Gabapentin 600 MG Tablet PO (09:56)
[2020-02-24 10:51] LABS: Bedside Glucose 146 mg/dL (70-110)
--- NOTE | 2020-02-24 11:00 | COL_PTH ---
PATIENT: KRISHAN BURNHAM LOC: MS3 U#:[id number] AGE/SX: 54/M ROOM: NC310 RE02/24/[address]: Dr. Jay Chavez MD : 1965 BED: 1 DIS: 02/26/2020 SPEC #: [id number] RECD: 02/24/20 15:52 STATUS: FLYNN REKeya #: [id number] BAIRON: 02/24/20 11:[address]: Jay Chavez DEPT: SURGICAL PATHOLOGY RECD BY: Dorothy Holt ENTERED: 02/25/20 07:12 SP TYPE: COLON OTHR DR: Thuy Hannah, [employer]-C Tissues: A - Colon, NOS B - Colon Donuts C - Colon Donuts Procedures: Surgery Specimen Level III Surgery Specimen Level V HEADER OPERATION: ERAS, laparoscopic sigmoid colectomy PRE-OP DIAGNOSIS: Diverticulitis TISSUE SUBMITTED: A - Colon, sigmoid, suture mathis proximal colon, B - Proximal donut, C - Distal donut MICROSCOPIC DIAGNOSIS A. Colon, segmental resection: Diverticular disease of colon with microabscess formation. Two out of two lymph nodes with no pathologic change. B. Proximal mucosal donut, excision: Vascular congestion. No evidence of inflammation. C. Distal mucosal donut, excision: Vascular congestion. No evidence of inflammation. AM:salas 02/27/20 MICROSCOPIC DESCRIPTION Slides are reviewed. GROSS DESCRIPTION A - Received in fixative is one container labeled with the patient's name and designated colon. The specimen consists of a 12 cm segment of bowel with attached yellow fatty tissue that displays fat wrapping. No gross perforations are evident. Serial sections reveal multiple diverticula, none of which appear to have perforated through the bowel wall. Company Laundry Worker sections are submitted in five cassettes as follows: 1-4 - diverticula, 5 - possible lymph node. B - Received in fixative is one container labeled with the patient's name and designated proximal donut. The specimen consists of a holbrook mucosal donut measuring 2 cm in diameter and 1 cm in length. No mucosal mass lesions are identified. Company Laundry Worker sections are submitted in one cassette. C - Received in fixative is one container labeled with the patient's name and designated distal donut. The specimen consists of a holbrook mucosal donut measuring 2 cm in diameter and 1.2 cm in length. No mucosal mass lesions are identified. Company Laundry Worker sections are submitted in one cassette. / AM:salas 02/26/20 TC:3 CPT: 34122, 41693 x2
[2020-02-24] MEDS: Lubricating Jelly 60 GM Tube 30 GM TOPICAL (13:22)
[2020-02-24] MEDS: BUPIVACAINE LIPOSOME/PF 20 ML VIAL OPERA.SITE (14:00)
--- NOTE | 2020-02-24 15:08 | PCM.OPRPT ---
Problem List (1) Diverticulitis Status: Acute Report of Operation Date of Procedure: 02/24/20 Pre-Operative Diagnosis: History of recurrent diverticulitis Post-Operative Diagnosis: Same Surgery/Procedure Performed:: 1. Laparoscopic sigmoid colectomy. 2. Laparoscopic takedown of splenic flexure Specimen's removed: Sigmoid colon with suture marking the proximal staple line Description of Procedure: The patient was brought back to the operating room and general anesthesia was induced. Patient was placed into stirrups and the rectum was prepped with Betadine and then a Betadine enema was performed with a flexible catheter. The patient then had a Davis catheter placed. Next the abdomen and perineum were prepped and draped in usual sterile fashion. An incision was made in the right mid abdomen and using a Visiport technique a 5 mm port was placed under direct visualization. The abdomen was then insufflated to 15 mmHg. The abdomen was inspected and the patient had a small hernia superior to the umbilicus. Under laparoscopic guidance a tap block was performed bilaterally from the ASIS up to the subcostal margin. This was performed with Exparel saline mixture. Next under direct visualization an incision was made over the underlying hernia and a 5 mm port was placed through the hernia. In the right lower quadrant another incision was made and a 12 mm port was placed under direct visualization. Another 5 mm port was placed in the left lower quadrant. Each of the skin incisions was injected with local anesthetic prior to incision. Patient was then placed in steep Trendelenburg position. The sigmoid colon was identified and the diseased portion of the colon was identified in the mid sigmoid with tight adhesions to the left lower quadrant. These adhesions were taken down and then the white line of Toldt was taken down superiorly and inferiorly using the Enseal. The left ureter was identified. There was not enough slack in the descending colon to reach the pelvis and so the white line of Toldt was taken down all the way up to the splenic flexure and the splenic flexure was released laparoscopically. Next the peritoneum in the pelvis was scored and a 60 [place] stapler was used to divide the rectosigmoid junction. The mesentery to the sigmoid was then taken down with Enseal until the nondiseased portion of the colon was reached. Next the skin incision was made in the bikini region and deepened to the fascia and a Pfannenstiel incision in the fascia was made with electrocautery. The peritoneum was then incised vertically and a wound protector was placed. The staple line was delivered through the wound protector and the diseased segment of the colon was brought up. There was good hemostasis and there was good oozing at the staple line. An [place] was used to take down the healthy colon and the specimen was sent. The staple line was then removed and the distal descending colon was sized and a 29 EEA stapler was selected. The anvil was placed into the distal descending bowel and an 0 Prolene suture was used to pursestring the colon shot around the anvil. This was then placed back into the abdomen and the wound protector was tied closed with an umbilical tape. The abdomen was reinsufflated and inspected. Next serial sizers were placed per rectum and the 29 EEA stapler was placed through the anus and into the rectum and the spike was deployed. The anvil was placed onto the spike and the stapler was closed and fired. The stapler was then removed and donuts were intact. The pelvis was irrigated with saline and pressure was held on the descending colon and a rigid proctoscope was placed into the rectum and inflated. There was no air leak. The fluid in the pelvis was suctioned but there was some bleeding at the staple line anteriorly. A 2-0 silk suture was used laparoscopically to suture this area to stop the bleeding. The rectum was reinspected from the inside using the rigid sigmoidoscope to ensure that the anastomosis was patent and nonbleeding. The pelvis was then irrigated and suctioned dry and the air was allowed to desufflate from the abdomen and the wound protector was removed. All staff changed gown and gloves. The peritoneum was closed in a running fashion using a 3-0 Vicryl suture. The lower wound was irrigated and suctioned dry. The fascia was closed in a transverse fashion using 0 PDS suture. The subcutaneous tissue was then irrigated and suctioned and the skin was closed with interrupted 4-0 Monocryl sutures. The abdomen was reinsufflated and laparoscopically using a Kamlesh Gutierrez needle the ventral hernia was closed with a [id number] 0 Vicryl suture. The air was desufflated from the abdomen once more and under direct visualization the right lower quadrant fascia was closed with an 0 Vicryl suture as well. All skin incisions were injected once more with local anesthetic and closed with interrupted 4-0 Monocryl sutures as well as Steri-Strips and bandages. Patient was then awoken and taken to PACU in stable condition with Davis in place. Patient tolerated the procedure well. - Admit VTE Documentation VTE Mechan Device Prophylaxis: SCD's
[2020-02-24] MEDS: MELATONIN 3 MG TABLET 9 MG PO (21:25)
[2020-02-24] MEDS: Docusate Sodium 100 MG Capsule PO (21:25)
[2020-02-24] MEDS: traZODone 100 MG Tablet 250 MG PO (21:31)
[2020-02-24] MEDS: Pantoprazole Sodium 40 MG Tablet 80 MG PO (23:17)
[2020-02-25] VITALS (7 sets, daily range): BP systolic 113–128; BP diastolic 62–76; PULSE 61–85; RESP 16–18; TEMP 36.6–36.9; O2SAT 94–96
[2020-02-25] MEDS: Ketorolac 15 MG/ML Vial IV ×2 (01:56→14:28)
[2020-02-25] MEDS: Acetaminophen 500 MG Tablet 1000 MG PO ×3 (05:00→18:43)
[2020-02-25 06:06] LABS: Hematocrit 42.3 % (40-54); Hemoglobin 14.3 g/dL (13.0-16.5); Mean Corp Hgb Conc 33.8 g/dL (32-36); Mean Corpuscular Hgb 29.5 pg (27.0-32.0); Mean Corpuscular Volume 87.4 fL (80-94); Platelet Count 155 K/mm3 (150-450); RBC Distribution Width CV 12.4 % (11.6-14.6); RBC Distribution Width SD 39.1 fl (35.1-43.9); Red Blood Count 4.84 M/mm3 (4.6-6.2); White Blood Count 12.1 K/mm3 (4.4-11.0)
[2020-02-25 06:26] LABS: Anion Gap 4 (5-15); BUN 15 mg/dL (7-18); BUN/Creat Ratio 12.3 RATIO (10-20); Calcium,Total 8.4 mg/dL (8.5-10.1); Chloride 107 mmol/L (98-107); Creatinine, Serum 1.22 mg/dL (0.70-1.30); EST Glomerular Filtration Rate 66 mL/min (>60); Est Glom Filt Rate - Afr Amer 79 mL/min (>60); Estimated Creatinine Clearance 73.72 ml/min; Glucose 130 mg/dL (74-106); Potassium 4.2 mmol/L (3.5-5.1); Sodium Level 138 mmol/L (136-145)
[2020-02-25] MEDS: 0.9% Saline Lock 10 ML Syringe IV ×2 (07:56→14:28)
--- NOTE | 2020-02-25 08:36 | PN.SURG_ITS ---
Patient Problems: Active and Suspected Problems (Last Reviewed 02/07/20 @ 09:27 by Jo Guadarrama) Diverticulitis (Acute) Subjective: Patient reports he is doing well and tolerated clears with no nausea or vomiting. Abdominal pain is well controlled - Physical Exam Vitals/I&O's: Vital Signs Temp Pulse Resp BP Pulse Ox 98.4 F 85 16 113/64 95 02/25/20 04:57 02/25/20 04:57 02/25/20 04:57 02/25/20 04:57 02/25/20 06:57 Oxygen Flow Rate (L/min) 6 Oxygen Delivery Method Room Air Weight: 249 lb 5.485 oz Body Mass Index (BMI) 34.7 Intake and Output for Last 24 Hours 02/23/20 02/24/20 02/25/20 23:59 23:59 23:59 Intake Total 1556.5 / 1556.5 979.33 / 979.33 Output Total 2500 / 2500 350 / 350 Balance -943.5 / -943.5 629.33 / 629.33 General: Alert, Oriented x3 Lungs: Normal air movement Cardiovascular: Regular rate, Regular Rhythm Abdomen: Soft, Non-Distended Laboratory Results 02/24/20 09:42: POC Glucose 146 H 02/25/20 05:52: WBC 12.1 H, RBC 4.84, Hgb 14.3, Hct 42.3, MCV 87.4, MCH 29.5, MCHC 33.8, RDW Std Deviation 39.1, RDW Coeff of Gail 12.4, Plt Count 155, MPV 10.0 02/25/20 05:52: Sodium 138, Potassium 4.2, Chloride 107, Carbon Dioxide 27.0, Anion Gap 4 L, BUN 15, Creatinine 1.22, Estim Creat Clear Calc 73.72, Est GFR (MDRD) Af Amer 79, Est GFR (MDRD) Non-Af 66, BUN/Creatinine Ratio 12.3, Glucose 130 H, Calcium 8.4 L Current Medications Acetaminophen (Acetaminophen 500 Mg Tablet) 1,000 mg PO Q6H TAN Last Admin: 02/25/20 05:00 Dose: 1,000 mg Documented by: Atorvastatin Calcium (Atorvastatin Calcium 40 Mg Tablet) 40 mg PO DAILY [facility] Diltiazem HCl (Diltiazem 60 Mg Tablet) 60 mg PO BID [facility] Docusate Sodium (Docusate Sodium 100 Mg Capsule) 100 mg PO BID [facility] Last Admin: 02/24/20 21:25 Dose: 100 mg Documented by: Sodium Chloride () 250 mls @ 15 mls/hr IV .[id number] PRN PRN Reason: Saline Flush Sodium Chloride () 250 mls @ 15 mls/hr IV .[id number] PRN PRN Reason: Additional IVPB Infusion Ketorolac Tromethamine (Ketorolac 15 Mg/Ml Vial) 15 mg IV Q6H PRN PRN PRN Reason: Pain Score 4-10 Last Admin: 02/25/20 01:56 Dose: 15 mg Documented by: Magnesium Chloride (Magnesium Chloride 64 Mg Delay Rel.Tablet) 128 mg PO DAILY PRN PRN PRN Reason: Constipation Melatonin (Melatonin 3 Mg Tablet) 9 mg PO QHS [facility] Last Admin: 02/24/20 21:25 Dose: 9 mg Documented by: Ondansetron HCl (Ondansetron Odt 4 Mg Tablet) 4 mg PO Q6H PRN PRN PRN Reason: NAUSEA Pantoprazole Sodium (Pantoprazole Sodium 40 Mg Tablet) 80 mg PO BID [facility] Last Admin: 02/24/20 23:17 Dose: 80 mg Documented by: Paroxetine HCl (Paroxetine Cr 12.5 Mg Tablet) 75 mg PO DAILY [facility] Sodium Chloride (0.9% Saline Lock 10 Ml Syringe) 10 - 40 ml IV UD PRN PRN Reason: SALINE FLUSH Last Admin: 02/25/20 07:56 Dose: 10 ml Documented by: Trazodone HCl (Trazodone 100 Mg Tablet) 250 mg PO DAILY@2200 [facility] Last Admin: 02/24/20 21:31 Dose: 250 mg Documented by: Medical Necessity - Tobacco Use Smoking Status: Never smoker Tobacco Use: Non-smoker Assessment/Plan All Active Problems (Last Reviewed 02/07/20 @ 09:27 by Jo Guadarrama) GERD (gastroesophageal reflux disease) (Acute) Constipation (Acute) Sleep apnea (Acute) Depression with anxiety (Acute) Abdominal pain (Acute) Diverticulitis (Acute) 54-year-old male status post laparoscopic sigmoid colectomy 1. Patient is tolerating clears no nausea or vomiting. Abdominal pain is well controlled on the Tylenol and Toradol. I will remove his Davis and stop his IV fluids. Continue clears until later today once he is passing more significant flatus I will advance his diet. Jay Chavez MD Pager: [facility] [address] [place] [address], [address] [place] [phone] Office:
[2020-02-25] MEDS: Atorvastatin Calcium 40 MG Tablet PO (09:57)
[2020-02-25] MEDS: Docusate Sodium 100 MG Capsule PO ×2 (09:57→22:08)
[2020-02-25] MEDS: Pantoprazole Sodium 40 MG Tablet PO (09:57)
[2020-02-25] MEDS: PARoxetine CR 12.5 MG Tablet 75 MG PO (09:57)
[2020-02-25] MEDS: dilTIAZem 60 MG Tablet PO ×2 (09:57→22:09)
--- NOTE | 2020-02-25 10:02 | CASEMGMT ---
Addendum entered by Chaim Atwood 02/25/20 11:17: Call received from Jovani @ [facility] for clinical update on pt and this was provided to her. She was made aware pt states [facility] approved his surgery @ [facility] and that he was informed [facility] would pay for the hospitalization. Call placed to Kathy in pre-cert. She verifies there is an [facility]. Addendum entered by Chaim Atwood 02/25/20 10:11: Correction. Pt was sitting up in chair in room at time of assessment. Original Note: RN CM FRONT END JAVA DEVELOPER CM to room to meet with patient for initial transition planning/care coordination assessment. RN CM introduced self and role at [facility]. Pt voices understanding and consents to assessment at this time. Pt sitting up in bed in no distress at this time. Pt is A/O at this time and answers all questions appropriately. Care providers, pharmacy, and demographics verified/updated at this time. PCP: Dr Thuy Hannah @ [facility]. Seekamran Cota @ [facility] Specialists: [facility] Neurologist Preferred Pharmacy: [facility] Insurance: [facility], [facility]. Pt states surgery @ [facility] was approved through the [facility]. Prescription Benefit: [facility] only Living Will/HPOA: Has both LW and Healthcare POA: , [place]. LNOK: Living Arrangements: Lives in one story home w/1 step to enter with his and 2 sons (8 and 17 yrs old). Independent Transportation: Pt states drives self and states no transportation concerns at this time. will take him home @ d/c DME: CPAP Pt states no need for further DME at this time. HHC/SNF: No history of either. No needs identified. Pt wishes to return home and states has no concerns with going home at time of discharge. CM to follow for any discharge planning/needs. Pt voices no concerns/needs at this time. Advised pt to ask for CM if any questions/concerns/needs arise. Voices understanding. PLAN: Home Phil STRICKLAND RN, CM
[2020-02-25] MEDS: Ondansetron ODT 4 MG Tablet PO (14:28)
[2020-02-25] MEDS: MELATONIN 3 MG TABLET 9 MG PO (22:07)
[2020-02-25] MEDS: traZODone 100 MG Tablet 250 MG PO (22:08)
[2020-02-25 22:25] LABS: Bedside Glucose 130 mg/dL (70-110)
[2020-02-26] MEDS: Acetaminophen 500 MG Tablet 1000 MG PO ×3 (00:15→11:59)
[2020-02-26 00:17] VITALS: BP 120/71; PULSE 70; RESP 16; TEMP 36.6; O2SAT 93
[2020-02-26 06:18] VITALS: BP 137/78; PULSE 66; RESP 16; TEMP 36.8; O2SAT 95
[2020-02-26 07:30] LABS: Absolute Lymphocyte Count 1.66 X10^3/uL (0.83-4.51); Absolute Neutrophil Count 5.1 X10^3/uL (2.0-7.7); Basophil# 0.03 X10^3/uL; Basophil% 0.4 % (0-1); Eosinophils% 1.3 % (0-5); Hemoglobin 13.9 g/dL (13.0-16.5); Lymphocyte # 1.66 X10^3/ul (4.0); Lymphocyte % 21.3 % (19-41); Mean Corp Hgb Conc 33.1 g/dL (32-36); Mean Corpuscular Hgb 28.9 pg (27.0-32.0); Mean Corpuscular Volume 87.3 fL (80-94); Mean Platelet Vol. 9.8 fl (6.2-12.0); Monocyte# 0.89 X10^3/uL; Monocyte% 11.4 % (0-10); NRBC Flagged by Analyzer 0 % (0-5); Neutrophil # 5.09 X10^3/uL (2.7-7.7); Neutrophil % 65.2 % (47-70); Platelet Count 141 K/mm3 (150-450); RBC Distribution Width CV 12.3 % (11.6-14.6); RBC Distribution Width SD 39.5 fl (35.1-43.9); Red Blood Count 4.81 M/mm3 (4.6-6.2); White Blood Count 7.8 K/mm3 (4.4-11.0)
--- NOTE | 2020-02-26 07:39 | DCINST_ITS ---
- Discharge Diagnoses Current Active Problems: Current Active and Chronic Problems (Last Reviewed 02/07/20 @ 09:27 by Jo Guadarrama) Diverticulitis (Acute) You will use the following diet at home:: Regular Your food should be the consistency of: Regular Discharge Activity: May Drive, May Shower Lifting Restrictions: 20 lbs for 4 weeks Call your doctor if your incision/area has: Continuous Slow Oozing, Sudden Incr eased Bleeding, Increased Pain/ Swelling, Increased Redness, Foul Smelling Discharge, Swelling at the incision site Call your doctor if you observe: Fever of 101 or Higher Remove Dressing in (days):: 1 - Remove clear bandages tomorrow, remove white steri strips in 7-10 days Allergies/Adverse Reactions: Allergies No Known Allergies Allergy (Verified 02/17/20 13:25) Medications to take at Discharge Aspirin 81 mg PO DAILY 05/12/19 Cholecalciferol (VIT D3) [Vitamin D3] 2,000 unit PO DAILY 05/12/19 Melatonin [Melatin] 9 mg PO QHS 05/12/19 Pantoprazole Sodium [Protonix] 80 mg PO BID 05/12/19 Paroxetine HCl 75 mg PO DAILY 05/12/19 Trazodone HCl 250 mg PO DAILY 05/12/19 atorvastatin 20 mg tablet 40 mg PO DAILY tab 01/07/20 diltiazem HCl 30 mg tablet 60 mg PO DAILY tab 01/07/20 Carbidopa/Levodopa 50/200 [Sinemet CR 50/200] 1 tab PO QHS 02/17/20 Famotidine [Acid Controller] 20 mg PO QHS 02/17/20 Primary Care Physician: Thuy Hannah, CHANNEL MANAGER-C [Primary Care Provider] - Test Results: Test results from this visit will be discussed in further detail at your follow- up appointment, if applicable. Please Follow Up With: Jay Chavez MD When: Please call to schedule 2 week follow up appointment. [phone]
--- NOTE | 2020-02-26 07:43 | PCM.DC.SUM ---
Discharge Date and Diagnosis - Problem List Patient Problems: Active and Suspected Problems (Last Reviewed 02/07/20 @ 09:27 by Jo Guadarrama) Diverticulitis (Acute) Date of Admission: 02/24/20 Date of Discharge: 02/26/20 - Primary Discharge Diagnosis Acute Problems: Active Problems (Last Reviewed 02/07/20 @ 09:27 by Jo Guadarrama) Diverticulitis (Acute) Hospital Course and Treatment Operations: colectomy Procedures: None Summary of Care Provided: The patient is a 54 year old M who presented for elective sigmoid colectomy for chronic diverticulitis. Patient tolerated laparoscopic sigmoid colectomy well with no issues. After 1 day he was started on clear liquids and advance to a full liquid diet in the next day was advanced to regular diet after he tolerated this and passing flatus and bowel movements he was discharged home in stable condition. Patient Problems: Active and Suspected Problems (Last Reviewed 02/07/20 @ 09:27 by Jo Guadarrama) Diverticulitis (Acute) - Physical Exam Vitals/I&O's: Vital Signs Temp Pulse Resp BP Pulse Ox 98.2 F 66 16 137/78 H 95 02/26/20 06:18 02/26/20 06:18 02/26/20 06:18 02/26/20 06:18 02/26/20 06:18 Oxygen Flow Rate (L/min) 6 Oxygen Delivery Method Room Air Weight: 249 lb 5.485 oz Body Mass Index (BMI) 34.7 Intake and Output for Last 24 Hours 02/24/20 02/25/20 02/26/20 23:59 23:59 23:59 Intake Total 1556.5 / 1556.5 1959.33 / 2549.33 1390 / 1390 Output Total 2500 / 2500 2049 / 2049 Balance -943.5 / -943.5 -90.67 / 499.33 1390 / 1390 Laboratory Results 02/25/20 22:06: POC Glucose 130 H 02/26/20 06:30: WBC 7.8, RBC 4.81, Hgb 13.9, Hct 42.0, MCV 87.3, MCH 28.9, MCHC 33.1, RDW Std Deviation 39.5, RDW Coeff of Gail 12.3, Plt Count 141 L, MPV 9.8, Immature Gran % (Auto) 0.400, Neut % (Auto) 65.2, Lymph % (Auto) 21.3, [place] % (Auto) 11.4 H, Eos % (Auto) 1.3, Baso % (Auto) 0.4, Absolute Neuts (auto) 5.1, Absolute Lymphs (auto) 1.66, Nucleated RBC % 0 Current Medications Acetaminophen (Acetaminophen 500 Mg Tablet) 1,000 mg PO Q6H [facility] Last Admin: 02/26/20 06:26 Dose: 1,000 mg Documented by: Atorvastatin Calcium (Atorvastatin Calcium 40 Mg Tablet) 40 mg PO DAILY [facility] Last Admin: 02/25/20 09:57 Dose: 40 mg Documented by: Diltiazem HCl (Diltiazem 60 Mg Tablet) 60 mg PO BID [facility] Last Admin: 02/25/20 22:09 Dose: 60 mg Documented by: Docusate Sodium (Docusate Sodium 100 Mg Capsule) 100 mg PO BID [facility] Last Admin: 02/25/20 22:08 Dose: 100 mg Documented by: Sodium Chloride () 250 mls @ 15 mls/hr IV .[id number] PRN PRN Reason: Saline Flush Sodium Chloride () 250 mls @ 15 mls/hr IV .[id number] PRN PRN Reason: Additional IVPB Infusion Ketorolac Tromethamine (Ketorolac 15 Mg/Ml Vial) 15 mg IV Q6H PRN PRN PRN Reason: Pain Score 4-10 Last Admin: 02/25/20 14:28 Dose: 15 mg Documented by: Magnesium Chloride (Magnesium Chloride 64 Mg Delay Rel.Tablet) 128 mg PO DAILY PRN PRN PRN Reason: Constipation Melatonin (Melatonin 3 Mg Tablet) 9 mg PO QHS [facility] Last Admin: 02/25/20 22:07 Dose: 9 mg Documented by: Ondansetron HCl (Ondansetron Odt 4 Mg Tablet) 4 mg PO Q6H PRN PRN PRN Reason: NAUSEA Last Admin: 02/25/20 14:28 Dose: 4 mg Documented by: Pantoprazole Sodium (Pantoprazole Sodium 40 Mg Tablet) 40 mg PO DAILY [facility] Last Admin: 02/25/20 09:57 Dose: 40 mg Documented by: Paroxetine HCl (Paroxetine Cr 12.5 Mg Tablet) 75 mg PO DAILY [facility] Last Admin: 02/25/20 09:57 Dose: 75 mg Documented by: Sodium Chloride (0.9% Saline Lock 10 Ml Syringe) 10 - 40 ml IV UD PRN PRN Reason: SALINE FLUSH Last Admin: 02/25/20 14:28 Dose: 20 ml Documented by: Trazodone HCl (Trazodone 100 Mg Tablet) 250 mg PO DAILY@2200 TAN Last Admin: 02/25/20 22:08 Dose: 250 mg Documented by: Discharge Activity: May Drive, May Shower Call your doctor if your incision/area has: Continuous Slow Oozing, Sudden Increased Bleeding, Increased Pain/ Swelling, Increased Redness, Foul Smelling Discharge, Swelling at the incision site Call your doctor if you observe: Fever of 101 or Higher Remove Dressing in (days):: 1 - Remove clear bandages tomorrow, remove white steri strips in 7-10 days Home Medications: Medications to take at Discharge Aspirin 81 mg PO DAILY 05/12/19 Cholecalciferol (VIT D3) [Vitamin D3] 2,000 unit PO DAILY 05/12/19 Melatonin [Melatin] 9 mg PO QHS 05/12/19 Pantoprazole Sodium [Protonix] 80 mg PO BID 05/12/19 Paroxetine HCl 75 mg PO DAILY 05/12/19 Trazodone HCl 250 mg PO DAILY 05/12/19 atorvastatin 20 mg tablet 40 mg PO DAILY tab 01/07/20 diltiazem HCl 30 mg tablet 60 mg PO DAILY tab 01/07/20 Carbidopa/Levodopa 50/200 [Sinemet CR 50/200] 1 tab PO QHS 02/17/20 Famotidine [Acid Controller] 20 mg PO QHS 02/17/20 Primary Care Physician: Thuy Hannah, [facility] [Primary Care Provider] - Please Follow Up With: Jay Chavez MD When: Please call to schedule 2 week follow up appointment. [phone] Medical Necessity - Tobacco Use Smoking Status: Never smoker Tobacco Use: Non-smoker Meaningful Use Info Meaningful Use Diagnoses (Choose all that apply): None applicable
--- NOTE | 2020-02-26 08:51 | PCS.PANDOC ---
PANDEMIC DOCUMENTATION INITIATED: Date: Time:
[2020-02-26] MEDS: Docusate Sodium 100 MG Capsule PO (08:54)
[2020-02-26] MEDS: Ketorolac 15 MG/ML Vial IV (08:54)
[2020-02-26] MEDS: Pantoprazole Sodium 40 MG Tablet PO (08:54)
[2020-02-26] MEDS: Atorvastatin Calcium 40 MG Tablet PO (08:55)
[2020-02-26] MEDS: PARoxetine CR 12.5 MG Tablet 75 MG PO (08:55)
[2020-02-26] MEDS: dilTIAZem 60 MG Tablet PO (08:55)
[2020-02-26] MEDS: 0.9% Saline Lock 10 ML Syringe IV (08:56)
[2020-02-26 09:04] VITALS: O2SAT 93
[2020-02-26 10:00] VITALS: BP 134/76; PULSE 78; RESP 18; TEMP 36.6; O2SAT 94
--- NOTE | 2020-02-26 11:00 | PHA.DC.MR ---
Pharmacy Service has performed discharge medication reconciliation for this patient. The patient's discharge medication list was reviewed for discrepancies and discrepancies were resolved. Home Medications Aspirin 81 mg PO DAILY 05/12/19 Cholecalciferol (VIT D3) [Vitamin D3] 2,000 unit PO DAILY 05/12/19 Melatonin [Melatin] 9 mg PO QHS 05/12/19 Pantoprazole Sodium [Protonix] 80 mg PO BID 05/12/19 Paroxetine HCl 75 mg PO DAILY 05/12/19 Trazodone HCl 250 mg PO DAILY 05/12/19 atorvastatin 20 mg tablet 40 mg PO DAILY tab 01/07/20 diltiazem HCl 30 mg tablet 60 mg PO DAILY tab 01/07/20 Carbidopa/Levodopa 50/200 [Sinemet CR 50/200] 1 tab PO QHS 02/17/20 Famotidine [Acid Controller] 20 mg PO QHS 02/17/20
--- NOTE | 2020-02-26 13:39 | CASEMGMT ---
MONICA BOONE NOTE: VM received from Jovani @ [facility] for update on pt. Call placed back to [facility] and they were made aware d/c order is in and plan is for d/c home today if pt tolerating reg diet, ambulating, and pain well controlled. D/C summary and instructions faxed to [facility] at this time. Phil STRICKLAND RN CM
== END 2020-02-26 14:02 | disposition home or self-care (01) | DRG 331 ==
LOC: ACINP 08:56 → MS3 16:40
PROVIDERS: Anesthesiology; Admitting Provider Surgery; PCP Nurse Practitioner Family; Referring Provider Surgery; Visit Provider Surgery
PROC: 0DTN0ZZ Resection of Sigmoid Colon, Open Approach (ICD-10-PCS; CPT 44204; principal; 2020-02-24 10:35)
DX: K57.92 Diverticulitis of intestine, part unspecified, without perforation or abscess without bleeding (principal); K43.9 Ventral hernia without obstruction or gangrene; G20 Parkinson's disease; I10 Essential (primary) hypertension; E78.00 Pure hypercholesterolemia, unspecified; G47.30 Sleep apnea, unspecified; K21.9 Gastro-esophageal reflux disease without esophagitis; F32.9 Major depressive disorder, single episode, unspecified; F41.9 Anxiety disorder, unspecified; Z79.82 Long term (current) use of aspirin; Z79.899 Other long term (current) drug therapy
CPT/HCPCS: 36415; 80048; 82962; 83735; 85025; 85027; 87426; 88304; 88307; 93005; 94762; 99251; C9803; J7120; A4216; C1760; G0463; J2405

== ENCOUNTER 2020-06-06 16:24 | Inpatient (IN) | payer OTHER, MEDICARE, SELFPAY ==
[2020-02-24 16:56] VITALS: BMI 34.7
[2020-06-06] VITALS (8 sets, daily range): BP systolic 129–176; BP diastolic 73–84; PULSE 64–84; RESP 16–18; TEMP 36.6–36.9; O2SAT 94–100; BMI 36.0; BMI 35.3
--- NOTE | 2020-06-06 16:33 | EKG12_ITS ---
Test Reason : CP Blood Pressure : / mmHG Vent. Rate : 084 BPM Atrial Rate : 084 BPM P-R Int : 188 ms QRS Dur : 082 ms QT Int : 348 ms P-R-T Axes : 018 -24 022 degrees QTc Int : 411 ms Normal sinus rhythm Minimal voltage criteria for LVH, may be normal variant Borderline ECG Confirmed by SELMA REDD, STEVE ([id number]), graphic editor AUBREE MIXON ([id number]) on 06/10/2020 10:45:50 AM Referred By: AROLDO Confirmed By:STEVE HAHN MD
--- NOTE | 2020-06-06 16:34 | ED.DCSUM_ITS ---
History of Present Illness Chief Complaint: Chest Pain Informant: Patient Onset: Today Current Severity: Mild Maximum Severity: Moderate Narrative: Patient presents with chest pressure since 1 PM this afternoon. He states for the past couple days he has what he is describing as bee stings. He states he gets a stinging sensation in his chest that goes up to the back of his head and then down his right arm. He states this only last for a few seconds at a time. - Past Medical History (1) Depression with anxiety Status: Chronic (2) GERD (gastroesophageal reflux disease) Status: Chronic Past Medical History - Allergies and Home Meds Allergies/Adverse Reactions: Allergies No Known Allergies Allergy (Verified 03/09/20 09:15) Primary Care Physician: Thuy Hannah NP-C [Primary Care Provider] - Smoking Status: Never smoker Review of Systems General: Denies: Chills, Fever Eyes: Denies: Visual changes - bilaterally ENT: Denies: Bilateral ear pain Cardiovascular: Reports: Chest pain. Denies: Palpitations, Heart racing Respiratory: Denies: Dyspnea Gastrointestinal: Denies: Abdominal pain, Nausea, Vomiting Neurological: Reports: Headache, Parasthesia, Numbness Hematologic: Denies: Easy bruising, Easy bleeding Allergy: Denies: Uticaria Physical Exam Vital Signs/Narrative: Vital Signs Temp Pulse Resp BP Pulse Ox 06/06/20 16:25 98.4 F 84 16 176/84 H 96 Inital Vital Signs reviewed: Yes General: Well nourished, Well developed Head: Normocephalic Neck: Supple Cardiovascular: Regular rate, Regular rhythm Respiratory: No distress, CTA bilaterally Abdomen: Soft, Nontender Extremities: Nontender, No edema Skin: Normal color Neurological: Alert, Oriented x3 Psychological: Normal affect Diagnostic/Tx/Re-eval Chest X-Ray - ED: 1 View, Read by ED Physician, Normal, Heart, Lungs, Mediastinum Impressions Chest X-Ray 06/06/20 16:40 IMPRESSION: Nonacute portable x-ray examination of the chest. Electronically Signed: Juma Oconnell MD (Brooks) at 17:00 EDT , Service support , 06/06/20 16:40 Chest 1 View (Portable) [RAD] Stat Laboratory Results 06/06/20 06/06/20 16:29 16:29 WBC 8.3 RBC 5.42 Hgb 15.7 Hct 46.5 MCV 85.8 MCH 29.0 MCHC 33.8 RDW Std Deviation 39.3 RDW Coeff of Gail 12.8 Plt Count 155 MPV 9.8 Immature Gran % (Auto) 0.200 Neut % (Auto) 63.4 Lymph % (Auto) 20.9 [place] % (Auto) 12.5 H Eos % (Auto) 2.5 Baso % (Auto) 0.5 Absolute Neuts (auto) 5.3 Absolute Lymphs (auto) 1.74 Nucleated RBC % 0 Sodium 139 Potassium 3.8 Chloride 106 Carbon Dioxide 28.0 Anion Gap 5 BUN 15 Creatinine 1.22 Estim Creat Clear Calc 73.72 Est GFR (MDRD) Af Amer 79 Est GFR (MDRD) Non-Af 66 BUN/Creatinine Ratio 12.3 Glucose 128 H Calcium 8.9 Troponin I < 0.015 - EKG Initial EKG Interpretation: Sinus Rhythm - Sinus 84. No acute ST change. - Medical Decision Making Patient was given aspirin on arrival. Portable chest x-ray per my interpretation shows no focal infiltrate. Radiologist interpretation is reviewed. Blood work is unremarkable at this time. Patient states he did have a prior stress test done he believes at [facility]. I was able to find a prior stress from December 2017 in clinic sink. The impression for that stress test states that there is abnormal myocardial perfusion. There is a small perfusion defect of moderate intensity in the inferolateral region during stress imaging which is most consistent with ischemia but may be due to artifact. When asked about this patient states he never had a follow-up stress test or heart cath done. Repeat examination patient is resting comfortably. I did recommend observation for cycling of enzymes and probable stress test. I will speak with the hospitalist regarding admission. ED Disposition - Plan for ED Patient: Disposition: Acute Care Hospital [facility] Diagnosis: Chest pain Referrals: Thuy Hannah, [facility] [Primary Care Provider] -
--- NOTE | 2020-06-06 16:40 | RAD_ITS ---
STUDY: X-RAY CHEST REASON FOR EXAM: Male, 54 years old. chest pain TECHNIQUE: AP COMPARISON: None. FINDINGS: EKG leads project over the chest. The lungs are clear and expanded. There is no demonstrated pleural abnormality. Normal size heart. Normal mediastinum and nandini. Normal visualized pulmonary arteries. Normal visualized aortic arch and descending thoracic aorta. Normal visualized thoracic spine. Normal visualized ribs, clavicles, and shoulders. There is no demonstrated abnormality of the visualized soft tissue structures of the upper abdomen. RAD/Chest 1 View (Portable) IMPRESSION: Nonacute portable x-ray examination of the chest. Electronically Signed: Juma Oconnell MD (Brooks) at 17:00 EDT , Service support ,
[2020-06-06 16:43] LABS: Absolute Lymphocyte Count 1.74 X10^3/uL (0.83-4.51); Absolute Neutrophil Count 5.3 X10^3/uL (2.0-7.7); Basophil# 0.04 X10^3/uL; Basophil% 0.5 % (0-1); Eosinophil# 0.21 X10^3/uL; Eosinophils% 2.5 % (0-5); Hematocrit 46.5 % (40-54); Hemoglobin 15.7 g/dL (13.0-16.5); Lymphocyte # 1.74 X10^3/ul (4.0); Lymphocyte % 20.9 % (19-41); Mean Corp Hgb Conc 33.8 g/dL (32-36); Mean Corpuscular Volume 85.8 fL (80-94); Mean Platelet Vol. 9.8 fl (6.2-12.0); Monocyte# 1.04 X10^3/uL; Monocyte% 12.5 % (0-10); NRBC Flagged by Analyzer 0 % (0-5); Neutrophil # 5.29 X10^3/uL (2.7-7.7); Neutrophil % 63.4 % (47-70); Platelet Count 155 K/mm3 (150-450); RBC Distribution Width CV 12.8 % (11.6-14.6); RBC Distribution Width SD 39.3 fl (35.1-43.9); Red Blood Count 5.42 M/mm3 (4.6-6.2); White Blood Count 8.3 K/mm3 (4.4-11.0)
[2020-06-06 17:02] LABS: Anion Gap 5 (5-15); BUN 15 mg/dL (7-18); BUN/Creat Ratio 12.3 RATIO (10-20); Calcium,Total 8.9 mg/dL (8.5-10.1); Chloride 106 mmol/L (98-107); Creatinine, Serum 1.22 mg/dL (0.70-1.30); EST Glomerular Filtration Rate 66 mL/min (>60); Est Glom Filt Rate - Afr Amer 79 mL/min (>60); Estimated Creatinine Clearance 73.72 ml/min; Glucose 128 mg/dL (74-106); Potassium 3.8 mmol/L (3.5-5.1); Sodium Level 139 mmol/L (136-145)
[2020-06-06] MEDS: Aspirin 81 MG TAB.CHEW 324 MG PO (17:10)
--- NOTE | 2020-06-06 18:07 | PCM.HP.STD ---
Problem List (1) Chest pain Status: Acute Qualifiers: Chest pain type: unspecified Qualified Code(s): R07.9 - Chest pain, unspecified (2) Parkinsons disease Status: Chronic (3) GERD (gastroesophageal reflux disease) Status: Chronic Qualifiers: Esophagitis presence: esophagitis presence not specified Qualified Code(s): K21.9 - Gastro-esophageal reflux disease without esophagitis (4) Constipation Status: Chronic Qualifiers: Constipation type: unspecified constipation type Qualified Code(s): K59.00 - Constipation, unspecified (5) Sleep apnea Status: Chronic Qualifiers: Sleep apnea type: unspecified type Qualified Code(s): G47.30 - Sleep apnea, unspecified (6) Depression with anxiety Status: Chronic (7) HTN (hypertension) Status: Chronic Qualifiers: Hypertension type: essential hypertension Qualified Code(s): I10 - Essential (primary) hypertension (8) HLD (hyperlipidemia) Status: Chronic Qualifiers: Hyperlipidemia type: unspecified Qualified Code(s): E78.5 - Hyperlipidemia, unspecified History of Present Illness Date of Admission: 06/06/20 Chief Complaint: Chest pain The patient is a 54 y/o M w/ PMHx: Parkinson's disease following w/ Neurology at [facility], Obesity, BRITTANY on CPAP q HS, GERD, Depression and Anxiety, Hx abnormal stress test but no follow-up catheterization per his report 2018, HTN, HLD who presents to the [facility] ED on 06/06/20 with history of onset chest pain, described as stinging-like sensation, occuring while at rest with radiation into the RUE and neck region lasting seconds at a time over the last several days, recurring most recently at ~ 1 pm on day of ED presentation. He rated discomfort 4-5 out of 10 in severity, currently improved upon ED evaluation but notes it had been constant previously. Denies any recent specific injury or alteration activity. He denies any related dyspnea, diaphoresis, nausea, emesis. Work-up in the ED included T 98.4, heart rate 84, BP 176/4 with repeat 1 3634, respiratory rate 16, 96% on room air, CBC with WBC 8.3, hemoglobin 15.7, platelet 155 without marked shift, BMP with glucose 128 otherwise not marked appearing, troponin less than 0.015, chest x-ray with no acute cardiopulmonary findings, EKG SR without acute evidence of ischemia. In the ED patient administered aspirin 324 mg p.o. x1. Past Medical History Past Medical History (Chronic Problems): Chronic Problems (Last Reviewed 03/09/20 @ 09:18 by Josie Calvert) Parkinsons disease (Chronic) HTN (hypertension) (Chronic) HLD (hyperlipidemia) (Chronic) GERD (gastroesophageal reflux disease) (Chronic) Constipation (Chronic) Sleep apnea (Chronic) Depression with anxiety (Chronic) Medical History: Medical History (Last Reviewed 03/09/20 @ 09:18 by Josie Calvert) GERD (gastroesophageal reflux disease) (Chronic) K21.9 Constipation (Acute) K59.00 Sleep apnea (Acute) G47.30 Depression with anxiety (Chronic) F41.8 Abdominal pain (Acute) R10.9 Diverticulitis (Acute) K57.92 Allergies No Known Allergies Allergy (Verified 03/09/20 09:15) Home Medications: Ambulatory Orders Medication Instructions Recorded Aspirin 81 mg PO DAILY 05/12/19 Cholecalciferol (VIT D3) [Vitamin 2,000 unit PO DAILY 05/12/19 D3] Melatonin [Melatin] 9 mg PO QHS 05/12/19 Pantoprazole Sodium [Protonix] 80 mg PO BID 05/12/19 Paroxetine HCl 75 mg PO DAILY 05/12/19 Trazodone HCl 250 mg PO DAILY 05/12/19 atorvastatin 20 mg tablet 40 mg PO DAILY tab 01/07/20 diltiazem HCl 30 mg tablet 60 mg PO DAILY tab 01/07/20 Carbidopa/Levodopa 50/200 [Sinemet 1 tab PO QHS 02/17/20 CR 50/200] Famotidine [Acid Controller] 20 mg PO QHS 02/17/20 Surgical History: Surgical History (Last Updated 03/09/20 @ 09:18 by Josie Calvert) History of appendectomy Z90.49 History of colectomy Onset Date: ~02/2020 Z90.49 History of laparoscopic cholecystectomy Z90.49 Surgical History: - - Appendectomy, cholecystectomy, recent partial colectomy secondary to recurrent diverticulitis. Psychiatric History: Anxiety, Depression Lives: Spouse/ Significant Other Smoking Status: Never smoker Tobacco Use: Non-smoker Alcohol: None Drugs: None - *Family History Maternal Family History: Family History (Last Reviewed 03/09/20 @ 09:18 by Josie Calvert) Mother Heart disease Hypertension High cholesterol Cancer Father Heart disease High cholesterol Hypertension CVA (cerebral vascular accident) History Items: Cancer, High Cholesterol, Heart Disease, Hypertension Paternal Family History: Family History (Last Reviewed 03/09/20 @ 09:18 by Josie Calvert) Mother Heart disease Hypertension High cholesterol Cancer Father Heart disease High cholesterol Hypertension CVA (cerebral vascular accident) History Items: High Cholesterol, Heart Disease, Hypertension, Stroke Review of Systems Constitutional: Reports: Fatigue. Denies: Anorexia, Chills, Fever, Malaise, Weakness, Weight Change HEENT: Denies: Head Aches, Sinus Congestion, Sinus Drainage Cardiovascular: Reports: Chest Pain. Denies: Chest Pressure, Chest Tightness, Light Headedness, Orthopnea, Palpitations, Syncope Respiratory: Denies: Cough, Shortness of Breath, Shortness of breath at rest, Shortness of breath upon exertion, Sputum production Gastrointestinal: Denies: Abdominal Pain, Nausea, Vomiting Genitourinary: Denies: Dysuria Musculoskeletal: Reports: Joint Pain. Denies: Joint Tenderness Skin: Denies: Rash, Wounds Neurological: Denies: Numbness, Tingling, Focal weakness Psychiatric: Reports: Anxiety, Depression. Denies: Homicidal Ideations, Suicidal Ideations Hematologic/ Lymphatic: Denies: Easy Bruising, Easy Bleeding VTE Information - Inpt Only VTE Present on Admission: No VTE Mechan Device Prophylaxis: SCD's VTE Pharm Prophylaxis ordered?: Yes Patient Problems: Active and Suspected Problems (Last Reviewed 03/09/20 @ 09:18 by Josie Calvert) Chest pain (Acute) Subjective: Patient seated upright in the ED bed, no acute distress, improved chest discomfort. Objective: Physical Examination: General: awake, alert, oriented x 3 and cooperative, seated upright in the ED bed in no apparent distress, chest discomfort improving. Skin: normal color, turgor, no icterus, cyanosis. HEENT: AT/NC, EOMI, PERRLA, mildly dry MM, no carotid bruits or JVD noted. Lungs: Diminished breath sounds, greater bases, moderate effort, no rales, ronchi or wheezing. Heart: Regular rate and rhythm; no gallop, rub audible. Abdomen: soft,obese, NTTP, ND, normal BS, no HSM. Extremities: no cyanosis, clubbing, or edema. Neurological: patient awake, alert, oriented as noted; cognitive function intact; pupils equally reactive to light and accomodation; cranial nerves II-XII grossly normal, moving all 4 extremities, no focal deficits, strength mildly globally decreased, possibly confounded by underlying Parkinson's disease. Psychiatric: affect appears flat, fatigued, no acute evidence of depressive or anxiety feelings. - Physical Exam Vitals/I&O's: Vital Signs Temp Pulse Resp BP Pulse Ox 98.4 F 80 16 136/84 H 94 06/06/20 16:25 06/06/20 17:10 06/06/20 17:10 06/06/20 17:10 06/06/20 17:10 Oxygen Delivery Method Room Air Weight: 258 lb 6.108 oz Body Mass Index (BMI) 36.0 Laboratory Results 06/06/20 16:29: WBC 8.3, RBC 5.42, Hgb 15.7, Hct 46.5, MCV 85.8, MCH 29.0, MCHC 33.8, RDW Std Deviation 39.3, RDW Coeff of Gail 12.8, Plt Count 155, MPV 9.8, Immature Gran % (Auto) 0.200, Neut % (Auto) 63.4, Lymph % (Auto) 20.9, [place] % (Auto) 12.5 H, Eos % (Auto) 2.5, Baso % (Auto) 0.5, Absolute Neuts (auto) 5.3, Absolute Lymphs (auto) 1.74, Nucleated RBC % 0 06/06/20 16:29: Sodium 139, Potassium 3.8, Chloride 106, Carbon Dioxide 28.0, Anion Gap 5, BUN 15, Creatinine 1.22, Estim Creat Clear Calc 73.72, Est GFR (MDRD) Af Amer 79, Est GFR (MDRD) Non-Af 66, BUN/Creatinine Ratio 12.3, Glucose 128 H, Calcium 8.9, Troponin I < 0.015 Assessment/Plan All Active Problems (Last Reviewed 03/09/20 @ 09:18 by Josie Calvert) Chest pain (Acute) Abdominal pain (Acute) Diverticulitis (Acute) The patient is a 54 y/o M w/ PMHx: Parkinson's disease following w/ Neurology at [facility], Obesity, BRITTANY on CPAP q HS, GERD, Depression and Anxiety, Hx abnormal stress test but no follow-up catheterization per his report 2018, HTN, HLD who presents to the [facility] ED on 06/06/20 with history of onset chest pain, described as stinging-like sensation, occuring while at rest with radiation into the RUE and neck region lasting seconds at a time over the last several days, recurring most recently at ~ 1 pm on day of ED presentation. 1. Chest Pain, atypical: EKG in ED SR without acute evidence of ischemia, CXR w/ no acute cardiopulmonary findings, initial trop less than 0.015. Will admit to PCU, place on a monitored bed to assure no acute myocardial infarction with serial cardiac enzymes and EKGs. If repeat cardiac enzymes and EKGs remain unremarkable will pursue a.m. cardiac stress testing Monday. FLP in AM. Magnesium requested. ASA, NG, morphine. 2. Hyperglycemia: Admission glucose 128, mildly elevated, possibly stress response, continue to trend and if appropriate obtain A1c. 3. Hx Abnormal Stress test: Noted 2018 abnormal stress testing at [place] [facility], noted abnormal myocardial perfusion study with a small perfusion defect of moderate intensity in the inferior lateral region consistent with ischemia, continue evaluation as noted #1, maintain on aspirin, statin, currently on diltiazem instead of beta-josafat therapy. 4. Hypertension: Continue home regimen including diltiazem with hold parameters as needed, notably elevated although upon initial ED presentation, improved, PRN hydralazine. 5. Hyperlipidemia: Continue home statin regimen. AM FLP. 6. Obesity: Weight loss and lifestyle changes encouraged. 7. Anxiety and depression: We will continue patient home paroxetine regimen as well as trazodone regimen. 8. GERD: We will continue patient home PPI. 9. BRITTANY: We will continue CPAP nightly if amenable. 10. Hx Diverticulitis: Notable history recurrence, s/p partial colectomy 01/[address] Chavez. 11. Parkinson's disease: Will continue home sinemet regimen, continue Neurology evaluation at [facility]. 12. DVT prophylaxis: SCDs, Lovenox. OBSV E&M: [id number] Initial observation care L3
--- NOTE | 2020-06-06 18:51 | EKG12_ITS ---
Test Reason : AM EKG Blood Pressure : / mmHG Vent. Rate : 076 BPM Atrial Rate : 076 BPM P-R Int : 160 ms QRS Dur : 082 ms QT Int : 374 ms P-R-T Axes : 034 -20 012 degrees QTc Int : 420 ms Normal sinus rhythm Normal ECG When compared with ECG of 06-JUN-2020 19:12, MANUAL COMPARISON REQUIRED, DATA IS UNCONFIRMED Confirmed by SELMA REDD, STEVE ([id number]), fashion editor AUBREE MIXON ([id number]) on 06/10/2020 1:23:41 PM Referred By: VALENTÍN Confirmed By:STEVE HAHN MD
[2020-06-06] MEDS: 0.9% Saline Lock 10 ML Syringe IV (20:09)
[2020-06-06 20:41] LABS: Magnesium 2.1 mg/dL (1.6-2.6)
[2020-06-06] MEDS: Atorvastatin Calcium 40 MG Tablet PO (21:44)
[2020-06-06] MEDS: Psyllium 1 PACKET PO (21:44)
[2020-06-06] MEDS: MELATONIN 3 MG TABLET 9 MG PO (21:44)
[2020-06-06] MEDS: traZODone 100 MG Tablet 250 MG PO (21:44)
[2020-06-06] MEDS: Famotidine 20 MG Tablet PO (21:45)
[2020-06-06] MEDS: Pantoprazole Sodium 40 MG Tablet 80 MG PO (21:45)
[2020-06-06] MEDS: CARBIDOPA/LEVODOPA CR 50/200 Tablet PO (21:46)
[2020-06-07] VITALS (11 sets, daily range): BP systolic 111–144; BP diastolic 67–77; PULSE 58–75; RESP 11–16; TEMP 36.6–36.8; O2SAT 94–98
--- NOTE | 2020-06-07 05:55 | EKG12_ITS ---
Test Reason : CP ADMISSION Blood Pressure : / mmHG Vent. Rate : 064 BPM Atrial Rate : 064 BPM P-R Int : 184 ms QRS Dur : 084 ms QT Int : 378 ms P-R-T Axes : 028 -21 005 degrees QTc Int : 389 ms Normal sinus rhythm Normal ECG When compared with ECG of 06-JUN-2020 16:32, MANUAL COMPARISON REQUIRED, DATA IS UNCONFIRMED Confirmed by SELMA REDD, STEVE ([id number]), online content editor AUBREE MIXON ([id number]) on 06/10/2020 1:24:12 PM Referred By: VALENTÍN Confirmed By:STEVE HAHN MD
[2020-06-07 06:32] LABS: Absolute Lymphocyte Count 1.51 X10^3/uL (0.83-4.51); Absolute Neutrophil Count 4.4 X10^3/uL (2.0-7.7); Basophil# 0.06 X10^3/uL; Basophil% 0.9 % (0-1); Eosinophil# 0.24 X10^3/uL; Eosinophils% 3.4 % (0-5); Hematocrit 45.5 % (40-54); Hemoglobin 14.9 g/dL (13.0-16.5); Lymphocyte # 1.51 X10^3/ul (4.0); Lymphocyte % 21.4 % (19-41); Mean Corp Hgb Conc 32.7 g/dL (32-36); Mean Corpuscular Hgb 28.4 pg (27.0-32.0); Mean Corpuscular Volume 86.8 fL (80-94); Mean Platelet Vol. 9.8 fl (6.2-12.0); Monocyte# 0.86 X10^3/uL; Monocyte% 12.2 % (0-10); NRBC Flagged by Analyzer 0 % (0-5); Neutrophil # 4.36 X10^3/uL (2.7-7.7); Platelet Count 141 K/mm3 (150-450); RBC Distribution Width CV 12.8 % (11.6-14.6); Red Blood Count 5.24 M/mm3 (4.6-6.2)
[2020-06-07 07:12] LABS: ALB/GLOB Ratio 1.1 RATIO (0.9-2.4); AST(SGOT) 21 U/L (15-37); Alanine Aminotransfer ALT/SGPT 12 U/L (16-61); Albumin, Serum 3.6 g/dL (3.2-5.0); Alkaline Phosphatase 62 U/L (45-117); Anion Gap 5 (5-15); BUN 15 mg/dL (7-18); BUN/Creat Ratio 13.2 RATIO (10-20); Calcium,Total 8.7 mg/dL (8.5-10.1); Chloride 106 mmol/L (98-107); Cholesterol 122 mg/dL (200); Creatinine, Serum 1.14 mg/dL (0.70-1.30); EST Glomerular Filtration Rate 71 mL/min (>60); Est Glom Filt Rate - Afr Amer 86 mL/min (>60); Globulin 3.3 g/dL (2.2-4.2); Glucose 118 mg/dL (74-106); High Density Lipoprotein 25 mg/dL; Potassium 4.1 mmol/L (3.5-5.1); Protein, Total 6.9 g/dL (6.4-8.2); Sodium Level 137 mmol/L (136-145); Triglycerides 248 mg/dL; Very Low Density Lipoprotein 50 mg/dL (5-40)
[2020-06-07] MEDS: Pantoprazole Sodium 40 MG Tablet 80 MG PO ×2 (10:13→22:14)
[2020-06-07] MEDS: PARoxetine 10 MG Tablet 15 MG PO (10:13)
[2020-06-07] MEDS: Paroxetine 20 MG Tablet 60 MG PO (10:16)
[2020-06-07] MEDS: Enoxaparin 40 MG/0.4 ML Syringe SC (10:17)
[2020-06-07] MEDS: dilTIAZem 60 MG CAP.SR.12H PO (10:18)
[2020-06-07] MEDS: Aspirin 81 MG TAB.CHEW PO (10:18)
--- NOTE | 2020-06-07 11:06 | PN_ITS ---
Patient Problems: Active and Suspected Problems (Last Reviewed 03/09/20 @ 09:18 by Josie Calvert) Chest pain (Acute) Subjective: Patient seen and examined. No further chest pain overnight. Plan for stress test pain. - Physical Exam Vitals/I&O's: Vital Signs Temp Pulse Resp BP Pulse Ox 97.9 F 68 15 144/77 H 97 06/07/20 10:04 06/07/20 10:04 06/07/20 10:04 06/07/20 10:04 06/07/20 10:04 Oxygen Delivery Method Room Air Weight: 249 lb 1.957 oz Body Mass Index (BMI) 35.3 Intake and Output for Last 24 Hours 06/05/20 06/06/20 06/07/20 23:59 23:59 23:59 Intake Total 500 / 500 Balance 500 / 500 General: Alert, Oriented x3, Cooperative HEENT: Atraumatic, PERRLA, EOMI, Normocephalic Neck: Supple, No JVD, Negative Carotid Bruits Lungs: Clear to auscultation, Diminished Cardiovascular: Regular rate, No murmurs Abdomen: Bowel Sounds Present, Soft, Non Tender, Non-Distended Extremities: No clubbing, No cyanosis, No edema, Capillary Refill Less than 3 Seconds Skin: No rashes, No breakdown Musculoskeletal: No Tenderness to Palpation of Joints or Extremities Neurological: Cranial nerves II-XII grossly intact, Neuro grossly intact Psych/Mental Status: Normal Affect, Appropriate Laboratory Results 06/06/20 16:29: WBC 8.3, RBC 5.42, Hgb 15.7, Hct 46.5, MCV 85.8, MCH 29.0, MCHC 33.8, RDW Std Deviation 39.3, RDW Coeff of Gail 12.8, Plt Count 155, MPV 9.8, Immature Gran % (Auto) 0.200, Neut % (Auto) 63.4, Lymph % (Auto) 20.9, [place] % (Auto) 12.5 H, Eos % (Auto) 2.5, Baso % (Auto) 0.5, Absolute Neuts (auto) 5.3, Absolute Lymphs (auto) 1.74, Nucleated RBC % 0 06/06/20 16:29: Sodium 139, Potassium 3.8, Chloride 106, Carbon Dioxide 28.0, Anion Gap 5, BUN 15, Creatinine 1.22, Estim Creat Clear Calc 73.72, Est GFR (MDRD) Af Amer 79, Est GFR (MDRD) Non-Af 66, BUN/Creatinine Ratio 12.3, Glucose 128 H, Calcium 8.9, Troponin I < 0.015 06/06/20 20:05: Magnesium 2.1, Troponin I < 0.015 06/06/20 22:00: Troponin I < 0.015 06/07/20 05:41: WBC 7.0, RBC 5.24, Hgb 14.9, Hct 45.5, MCV 86.8, MCH 28.4, MCHC 32.7, RDW Std Deviation 40.0, RDW Coeff of Gail 12.8, Plt Count 141 L, MPV 9.8, Immature Gran % (Auto) 0.100, Neut % (Auto) 62.0, Lymph % (Auto) 21.4, [place] % (Auto) 12.2 H, Eos % (Auto) 3.4, Baso % (Auto) 0.9, Absolute Neuts (auto) 4.4, Absolute Lymphs (auto) 1.51, Nucleated RBC % 0 06/07/20 05:41: Sodium 137, Potassium 4.1, Chloride 106, Carbon Dioxide 26.0, Anion Gap 5, BUN 15, Creatinine 1.14, Estim Creat Clear Calc 78.90, Est GFR (MDRD) Af Amer 86, Est GFR (MDRD) Non-Af 71, BUN/Creatinine Ratio 13.2, Glucose 118 H, Calcium 8.7, Total Bilirubin 0.80, AST 21, ALT 12 L, Alkaline Phosphatase 62, Total Protein 6.9, Albumin 3.6, Globulin 3.3, Albumin/Globulin Ratio 1.1, Triglycerides 248 H, Cholesterol 122, LDL Cholesterol 47, VLDL Cholesterol 50 H, HDL Cholesterol 25 L 06/07/20 10:28: D-Dimer Quant (PE/DVT) Pending Current Medications Acetaminophen (Acetaminophen 325 Mg Tablet) 650 mg PO Q6H PRN PRN PRN Reason: Pain Score 1-10/Temp > 100.7 F Al Hydroxide/Mg Hydroxide (Mag Hydrox/Al Hydrox/Simeth 30 Ml Udc) 30 ml PO Q6H PRN PRN PRN Reason: Gastric Burning Albuterol Sulfate (Albuterol 2.5 Mg/3 Ml Vial.Neb.) 2.5 mg INHALATION Q2H PRN PRN PRN Reason: Dyspnea, wheezing Aspirin (A[facility]in 81 Mg Tab.Chew) [facility] Last Admin: 06/07/20 10:18 Dose: 81 mg Documented by: Atorvastatin Calcium (Atorvastatin Calcium 40 Mg Tablet) 40 mg PO QHS [facility] Last Admin: 06/06/20 21:44 Dose: 40 mg Documented by: Carbidopa/Levodopa (Carbidopa/Levodopa Cr 50/200 Tablet) 1 tablet PO QHS [facility] Last Admin: 06/06/20 21:46 Dose: 1 tablet Documented by: Diltiazem HCl (Diltiazem 60 Mg Cap.Sr.12h) 60 mg PO DAILY [facility] Last Admin: 06/07/20 10:18 Dose: 60 mg Documented by: Enoxaparin Sodium (Enoxaparin 40 Mg/0.4 Ml Syringe) 40 mg SC DAILY [facility] Last Admin: 06/07/20 10:17 Dose: 40 mg Documented by: Famotidine (Famotidine 20 Mg Tablet) 20 mg PO QHS [facility] Last Admin: 06/06/20 21:45 Dose: 20 mg Documented by: Guaifenesin (Guaifenesin 10 Ml Udc (200mg/10ml)) 20 ml PO Q4H PRN PRN PRN Reason: COUGH Hydralazine HCl (Hydralazine 20 Mg/Ml Vial) 10 mg IV Q4H PRN PRN PRN Reason: SBP > 160 Sodium Chloride () 1,000 mls @ 100 mls/hr IV .Q10H [facility] Sodium Chloride () 250 mls @ 15 mls/hr IV .[id number] PRN PRN Reason: Saline Flush Sodium Chloride () 250 mls @ 15 mls/hr IV .[id number] PRN PRN Reason: Additional IVPB Infusion Magnesium Hydroxide (Magnesium Hydroxide 30 Ml Udc) 30 ml PO DAILY PRN PRN PRN Reason: Constipation Melatonin (Melatonin 3 Mg Tablet) 9 mg PO QHS [facility] Last Admin: 06/06/20 21:44 Dose: 9 mg Documented by: Morphine Sulfate (Morphine 2 Mg/Ml Syringe) 2 mg IV Q3H PRN PRN PRN Reason: Pain Score 6-10 Nitroglycerin (Nitroglycerin (Inpatient Use) 0.4 Mg Tab.Subl) 0.4 mg SL Q5M PRN PRN Reason: CARDIAC/CHEST PAIN Ondansetron HCl (Ondansetron 4 Mg/2 Ml Vial) 4 mg IV Q8H PRN PRN PRN Reason: NAUSEA/VOMITING Oxycodone HCl (Oxycodone 5 Mg Tablet) 5 mg PO Q4H PRN PRN PRN Reason: Pain Score 4-5 Pantoprazole Sodium (Pantoprazole Sodium 40 Mg Tablet) 80 mg PO BID [facility] Last Admin: 06/07/20 10:13 Dose: 80 mg Documented by: Paroxetine HCl (Paroxetine 20 Mg Tablet) 60 mg PO DAILY [facility] Last Admin: 06/07/20 10:16 Dose: 60 mg Documented by: Paroxetine HCl (Paroxetine 10 Mg Tablet) 15 mg PO DAILY [facility] Last Admin: 06/07/20 10:13 Dose: 15 mg Documented by: Prochlorperazine Edisylate (Prochlorperazine 10 Mg/2 Ml Vial) 5 mg IV Q4H PRN PRN PRN Reason: Breakthrough Nausea/Vomiting Psyllium Hydrophilic Mucilloid (Psyllium 1 Packet) 1 packet PO DAILY PRN PRN PRN Reason: Constipation Last Admin: 06/06/20 21:44 Dose: 1 packet Documented by: Senna/Docusate Sodium (Senna/Docusate Sodium 1 Tablet) 2 tablet PO BID PRN PRN PRN Reason: Constipation Sodium Chloride (0.9% Saline Lock 10 Ml Syringe) 10 - 40 ml IV UD PRN PRN Reason: SALINE FLUSH Last Admin: 06/06/20 20:09 Dose: 10 ml Documented by: Throat Lozenges (Benzocaine/Menthol 1 Lozenge) 1 lozenge MUCOUS MEM Q2H PRN PRN PRN Reason: SORE THROAT Trazodone HCl (Trazodone 100 Mg Tablet) 250 mg PO QHS [facility] Last Admin: 06/06/20 21:44 Dose: 250 mg Documented by: Medical Necessity - Tobacco Use Smoking Status: Never smoker Tobacco Use: Non-smoker Assessment/Plan All Active Problems (Last Reviewed 03/09/20 @ 09:18 by Josie Calvert) Chest pain (Acute) Abdominal pain (Acute) Diverticulitis (Acute) 1. Atypical chest pain, history of abnormal stress test 2018-troponin negative. EKG without ST-T changes. Plan for stress test in a.m. 2. Hypertension-stable, continue on Cardizem. 3. Hyperlipidemia-continue statin. 4. Anxiety/depression-on paroxetine, trazodone. 5. Obesity-encouraged diet and lifestyle modifications. 6. GERD-continue PPI. 7. BRITTANY-continue CPAP. 8. History of diverticulitis-status post partial colectomy 02/[address] Chavez. 9. Parkinson's disease-continue Sinemet. DVT prophylaxis-Lovenox This patient was seen by ARGENTINA Hayden under the supervision of Dr. Guevara.
[2020-06-07 11:15] LABS: D-Dimer Quantitative (DVT/PE) <= 0.27 FEU/ug/m (0.27-0.49)
[2020-06-07] MEDS: Acetaminophen 325 MG Tablet 650 MG PO ×2 (11:40→20:28)
[2020-06-07 12:51] LABS: Hemoglobin A1c 5.9 % (3.8-5.6)
[2020-06-07] MEDS: CARBIDOPA/LEVODOPA CR 50/200 Tablet PO (22:14)
[2020-06-07] MEDS: Atorvastatin Calcium 40 MG Tablet PO (22:14)
[2020-06-07] MEDS: MELATONIN 3 MG TABLET 9 MG PO (22:14)
[2020-06-07] MEDS: traZODone 100 MG Tablet 250 MG PO (22:14)
[2020-06-07] MEDS: Famotidine 20 MG Tablet PO (22:14)
[2020-06-07] MEDS: 0.9% Normal Saline 1,000 ML 100 ML IV (22:17)
[2020-06-07] MEDS: 0.9% Saline Lock 10 ML Syringe IV (22:17)
[2020-06-08] VITALS (7 sets, daily range): BP systolic 118–134; BP diastolic 63–73; PULSE 52–67; RESP 14–18; TEMP 36.2–36.9; O2SAT 95–96
--- NOTE | 2020-06-08 04:33 | EKG12_ITS ---
Test Reason : AM EKG Blood Pressure : / mmHG Vent. Rate : 058 BPM Atrial Rate : 058 BPM P-R Int : 182 ms QRS Dur : 104 ms QT Int : 410 ms P-R-T Axes : 024 004 033 degrees QTc Int : 402 ms Sinus bradycardia Nonspecific T wave abnormality Abnormal ECG Confirmed by GINA REDD, JUICE ([id number]), editor farm journal AUBREE MIXON ([id number]) on 06/11/2020 11:22:18 AM Referred By: ROWAN Confirmed By:JUICE FUENTES MD
[2020-06-08] MEDS: Aspirin 81 MG TAB.CHEW PO (05:52)
--- NOTE | 2020-06-08 06:51 | CPS ---
pt wears own bipap from home
--- NOTE | 2020-06-08 11:50 | CASEMGMT ---
MONICA BOONE assessment: Face to Face with patient for initial transition planning/care coordination assessment. MONICA BOONE introduced self and role at [facility], pt voices understanding and consents to assessment. Pt is sitting up in bed in no distress. Pt is A/Ox4 and answers all questions appropriately. Care providers, pharmacy, and demographics verified. Presentation: c/o chest pressure. Also c/o PRADO and some N/T to left arm Admitting dx: Chest pain PCP: Tori Cortez [place] Specialists: [place] [facility] [place] [facility] Insurance: [facility] A/B Prescription Benefit: [place] Living Will/HPOA: Pt states has LW/HPOA and is aware that they are not on file at [facility]. Pt states his , Guera Hernández, is HPOA. LNOK: Guera Hernández, Living Arrangements: Pt states lives with in 1 story home and states no concerns at home. Pt states is independent with ADL's. Transportation: Pt states drives self and states no transportation concerns. DME/HHC: Pt states has a cpap thru [place] and states no need for any further DME. Pt states no hx of HHC or SNF in the past. Pt states no concerns with going home at time of discharge. Pt states is on disability. Pt states does not smoke cigarettes or drink ETOH. Pt states no further concerns/needs. CM to follow for any further discharge planning/needs. Advised pt to ask for CM if any further questions/concerns/needs arise, voices understanding. Pt Goal: Home [place]ONE
--- NOTE | 2020-06-08 11:52 | DCINST_ITS ---
- Discharge Diagnoses Current Active Problems: Current Active and Chronic Problems (Last Reviewed 03/09/20 @ 09:18 by Josie Calvert) Chest pain (Acute) Parkinsons disease (Chronic) HTN (hypertension) (Chronic) HLD (hyperlipidemia) (Chronic) GERD (gastroesophageal reflux disease) (Chronic) Constipation (Chronic) Sleep apnea (Chronic) Depression with anxiety (Chronic) You will use the following diet at home:: Cardiac Discharge Activity: Return to Normal Activity Call your doctor if you observe: Shortness of breath, Dizziness, Fainting spells, Chest pain Allergies/Adverse Reactions: Allergies No Known Allergies Allergy (Verified 03/09/20 09:15) Medications to take at Discharge Aspirin 81 mg PO DAILY 05/12/19 Cholecalciferol (VIT D3) [Vitamin D3] 2,000 unit PO DAILY 05/12/19 Melatonin [Melatin] 9 mg PO QHS 05/12/19 Pantoprazole Sodium [Protonix] 80 mg PO BID 05/12/19 Paroxetine HCl 75 mg PO DAILY 05/12/19 Trazodone HCl 250 mg PO DAILY 05/12/19 atorvastatin 20 mg tablet 40 mg PO DAILY tab 01/07/20 diltiazem HCl 30 mg tablet 60 mg PO DAILY tab 01/07/20 Carbidopa/Levodopa 50/200 [Sinemet CR 50/200] 1 tab PO QHS 02/17/20 Famotidine [Acid Controller] 20 mg PO QHS 02/17/20 Primary Care Physician: Thuy Hannah, HOTEL ATTENDANT-C [Primary Care Provider] - Please follow up with your Primary Care Physician in: 1 Week Test Results: Test results from this visit will be discussed in further detail at your follow- up appointment, if applicable. Proposed Discharge Date: 06/08/20
--- NOTE | 2020-06-08 12:44 | STRESSREP ---
Stress Test Report Pharmacologic myocardial perfusion stress test. 54-year-old male with a history of chest pain. Stress protocol: Resting EKG demonstrates normal sinus rhythm with a rate of 57 bpm normal intervals are noted resting blood pressure is 130/82 mmHg. 0.4 mg of regadenoson was infused per usual protocol followed by rapid intravenous saline flush injection continuous EKG monitoring was performed. The patient maintained sinus rhythm throughout the recording. The maximum heart rate attained was 81 bpm which was 48% of max impacted heart rate the maximum workload was 1 metabolic equivalent. At rest there were no ST or T wave changes noted to suggest abnormal flow reserve and at peak infusion nonspecific ST changes were noted with did not meet the criteria for ischemia. The final blood pressure was 120/78 mmHg. Myocardial perfusion protocol. 14.8 mCi of technetium 99m sestamibi was injected at rest. 0.4 mg of regadenoson was infused per usual protocol. At peak infusion 44.9 mCi of technetium 99m sestamibi was injected. Stress and rest images were reconstructed and compared in the short axis vertical long horizontal long axis. Gated images were also obtained. Perfusion SPECT analysis: Review of the stress images demonstrate normal uptake of tracer noted in all areas of the myocardium and the resting images demonstrate normal uptake of tracer noted in all areas of the myocardium. No areas of reversibility are noted to suggest ischemia and no previous infarct is noted. Gated SPECT analysis: The gated ejection fraction is 61%. Conclusion: Normal pharmacologic myocardial perfusion stress test. Preserved ejection fraction.
--- NOTE | 2020-06-08 13:21 | PCM.DC.SUM ---
<Sharri Thomason STATISTICAL REPORTING ANALYST - Last Filed: 06/08/20 13:25> Discharge Date and Diagnosis - Problem List Patient Problems: Active and Suspected Problems (Last Reviewed 03/09/20 @ 09:18 by Josie Calvert) Chest pain (Acute) Date of Admission: 06/06/20 Date of Discharge: 06/08/20 - Primary Discharge Diagnosis Acute Problems: Active Problems (Last Reviewed 03/09/20 @ 09:18 by Josie Calvert) 1. Atypical chest pain, ACS ruled out 2. Hypertension 3. Hyperlipidemia 4. Anxiety/depression 5. Obesity 6. GERD 7. BRITTANY 8. History of diverticulitis-status post partial colectomy 02/[address] Chavez. 9. Parkinson's disease - Secondary Discharge Diagnosis Chronic Problems: Chronic Problems (Last Reviewed 03/09/20 @ 09:18 by Josie Calvert) Parkinsons disease (Chronic) HTN (hypertension) (Chronic) HLD (hyperlipidemia) (Chronic) GERD (gastroesophageal reflux disease) (Chronic) Constipation (Chronic) Sleep apnea (Chronic) Depression with anxiety (Chronic) Hospital Course and Treatment Imaging Results: Diagnostic Data Chest X-Ray 06/06/20 16:40 IMPRESSION: Nonacute portable x-ray examination of the chest. Electronically Signed: Juma Oconnell MD (Brooks) at 17:00 EDT , Service support , Operations: None Procedures: Stress test Summary of Care Provided: The patient is a 54 year old M admitted 06/06/20 due to chest pain. 1. Atypical chest pain, history of abnormal stress test 2018-troponin negative. EKG without ST-T changes. Patient underwent nuclear stress test which was negative for ischemia, gated ejection fraction 61%. He has not had any further chest pain during admission. ACS ruled out. Follow-up with PCP in 1 week. 2. Hypertension-stable, continue on Cardizem. 3. Hyperlipidemia-continue statin. 4. Anxiety/depression-on paroxetine, trazodone. 5. Obesity-encouraged diet and lifestyle modifications. 6. GERD-continue PPI. 7. BRITTANY-continue CPAP. 8. History of diverticulitis-status post partial colectomy 02/[address] Chavez. 9. Parkinson's disease-continue Sinemet. General: Alert, Oriented x3, Cooperative HEENT: Atraumatic, PERRLA, EOMI, Normocephalic Neck: Supple, No JVD, Negative Carotid Bruits Lungs: Clear to auscultation, Diminished Cardiovascular: Regular rate, No murmurs Abdomen: Bowel Sounds Present, Soft, Non Tender, Non-Distended Extremities: No clubbing, No cyanosis, No edema, Capillary Refill Less than 3 Seconds Skin: No rashes, No breakdown Musculoskeletal: No Tenderness to Palpation of Joints or Extremities Neurological: Cranial nerves II-XII grossly intact, Neuro grossly intact Psych/Mental Status: Normal Affect, Appropriate Patient seen and examined prior to discharge. Physical assessment as noted above. Patient is stable for discharge with follow up recommendations as noted above. This patient was seen by ARGENTINA Hayden under the supervision of Dr. Briones. Patient Problems: Active and Suspected Problems (Last Reviewed 03/09/20 @ 09:18 by Josie Calvert) Chest pain (Acute) - Physical Exam Vitals/I&O's: Vital Signs Temp Pulse Resp BP Pulse Ox 98.4 F 64 14 134/73 H 96 06/08/20 11:42 06/08/20 11:48 06/08/20 11:42 06/08/20 11:42 06/08/20 11:42 Oxygen Delivery Method Room Air Weight: 251 lb 8.759 oz Body Mass Index (BMI) 35.3 Intake and Output for Last 24 Hours 06/06/20 06/07/20 06/08/20 23:59 23:59 23:59 Intake Total 1020 / 1020 965 / 965 Balance 1020 / 1020 965 / 965 Current Medications Acetaminophen (Acetaminophen 325 Mg Tablet) 650 mg PO Q6H PRN PRN PRN Reason: Pain Score 1-10/Temp > 100.7 F Last Admin: 06/07/20 20:28 Dose: 650 mg Documented by: Al Hydroxide/Mg Hydroxide (Mag Hydrox/Al Hydrox/Simeth 30 Ml Udc) 30 ml PO Q6H PRN PRN PRN Reason: Gastric Burning Albuterol Sulfate (Albuterol 2.5 Mg/3 Ml Vial.Neb.) 2.5 mg INHALATION Q2H PRN PRN PRN Reason: Dyspnea, wheezing Aspirin (Aspirin 81 Mg Tab.Chew) [facility] Last Admin: 06/08/20 05:52 Dose: 81 mg Documented by: Atorvastatin Calcium (Atorvastatin Calcium 40 Mg Tablet) 40 mg PO QHS [facility] Last Admin: 06/07/20 22:14 Dose: 40 mg Documented by: Carbidopa/Levodopa (Carbidopa/Levodopa Cr 50/200 Tablet) 1 tablet PO QHS [facility] Last Admin: 06/07/20 22:14 Dose: 1 tablet Documented by: Diltiazem HCl (Diltiazem 60 Mg Cap.Sr.12h) 60 mg PO DAILY [facility] Last Admin: 06/07/20 10:18 Dose: 60 mg Documented by: Enoxaparin Sodium (Enoxaparin 40 Mg/0.4 Ml Syringe) 40 mg SC DAILY [facility] Last Admin: 06/07/20 10:17 Dose: 40 mg Documented by: Famotidine (Famotidine 20 Mg Tablet) 20 mg PO QHS [facility] Last Admin: 06/07/20 22:14 Dose: 20 mg Documented by: Guaifenesin (Guaifenesin 10 Ml Udc (200mg/10ml)) 20 ml PO Q4H PRN PRN PRN Reason: COUGH Hydralazine HCl (Hydralazine 20 Mg/Ml Vial) 10 mg IV Q4H PRN PRN PRN Reason: SBP > 160 Sodium Chloride () 1,000 mls @ 100 mls/hr IV .Q10H [facility] Last Infusion: 06/08/20 07:56 Dose: 0 mls/hr Documented by: Sodium Chloride () 250 mls @ 15 mls/hr IV .[id number] PRN PRN Reason: Saline Flush Sodium Chloride () 250 mls @ 15 mls/hr IV .[id number] PRN PRN Reason: Additional IVPB Infusion Magnesium Hydroxide (Magnesium Hydroxide 30 Ml Udc) 30 ml PO DAILY PRN PRN PRN Reason: Constipation Melatonin (Melatonin 3 Mg Tablet) 9 mg PO QHS [facility] Last Admin: 06/07/20 22:14 Dose: 9 mg Documented by: Morphine Sulfate (Morphine 2 Mg/Ml Syringe) 2 mg IV Q3H PRN PRN PRN Reason: Pain Score 6-10 Nitroglycerin (Nitroglycerin (Inpatient Use) 0.4 Mg Tab.Subl) 0.4 mg SL Q5M PRN PRN Reason: CARDIAC/CHEST PAIN Ondansetron HCl (Ondansetron 4 Mg/2 Ml Vial) 4 mg IV Q8H PRN PRN PRN Reason: NAUSEA/VOMITING Oxycodone HCl (Oxycodone 5 Mg Tablet) 5 mg PO Q4H PRN PRN PRN Reason: Pain Score 4-5 Pantoprazole Sodium (Pantoprazole Sodium 40 Mg Tablet) 80 mg PO BID [facility] Last Admin: 06/07/20 22:14 Dose: 80 mg Documented by: Paroxetine HCl (Paroxetine 20 Mg Tablet) 60 mg PO DAILY [facility] Last Admin: 06/07/20 10:16 Dose: 60 mg Documented by: Paroxetine HCl (Paroxetine 10 Mg Tablet) 15 mg PO DAILY [facility] Last Admin: 06/07/20 10:13 Dose: 15 mg Documented by: Prochlorperazine Edisylate (Prochlorperazine 10 Mg/2 Ml Vial) 5 mg IV Q4H PRN PRN PRN Reason: Breakthrough Nausea/Vomiting Psyllium Hydrophilic Mucilloid (Psyllium 1 Packet) 1 packet PO DAILY PRN PRN PRN Reason: Constipation Last Admin: 06/06/20 21:44 Dose: 1 packet Documented by: Senna/Docusate Sodium (Senna/Docusate Sodium 1 Tablet) 2 tablet PO BID PRN PRN PRN Reason: Constipation Sodium Chloride (0.9% Saline Lock 10 Ml Syringe) 10 - 40 ml IV UD PRN PRN Reason: SALINE FLUSH Last Admin: 06/07/20 22:17 Dose: 10 ml Documented by: Throat Lozenges (Benzocaine/Menthol 1 Lozenge) 1 lozenge MUCOUS MEM Q2H PRN PRN PRN Reason: SORE THROAT Trazodone HCl (Trazodone 100 Mg Tablet) 250 mg PO QHS [facility] Last Admin: 06/07/20 22:14 Dose: 250 mg Documented by: Discharge Diet: Low fat/ Low Cholesterol Discharge Activity: Return to Normal Activity Call your doctor if you observe: Shortness of breath, Dizziness, Fainting spells, Chest pain Home Medications: Medications to take at Discharge Aspirin 81 mg PO DAILY 05/12/19 Cholecalciferol (VIT D3) [Vitamin D3] 2,000 unit PO DAILY 05/12/19 Melatonin [Melatin] 9 mg PO QHS 05/12/19 Pantoprazole Sodium [Protonix] 80 mg PO BID 05/12/19 Paroxetine HCl 75 mg PO DAILY 05/12/19 Trazodone HCl 250 mg PO DAILY 05/12/19 atorvastatin 20 mg tablet 40 mg PO DAILY tab 01/07/20 diltiazem HCl 30 mg tablet 60 mg PO DAILY tab 01/07/20 Carbidopa/Levodopa 50/200 [Sinemet CR 50/200] 1 tab PO QHS 02/17/20 Famotidine [Acid Controller] 20 mg PO QHS 02/17/20 Primary Care Physician: Thuy Hannah, STATISTICAL REPORTING ANALYST-C [Primary Care Provider] - Please follow up with your Primary Care Physician in: 1 Week Disposition: Home Minutes spent on discharge:: 35 Patient Condition:: Stable Medical Necessity - Tobacco Use Smoking Status: Never smoker Tobacco Use: Non-smoker Meaningful Use Info Meaningful Use Diagnoses (Choose all that apply): None applicable <Kelsae Briones - Last Filed: 06/09/20 17:01> Discharge Date and Diagnosis - Primary Discharge Diagnosis Acute Problems: Active Problems (Last Reviewed 03/09/20 @ 09:18 by Josie Calvert) Chest pain (Acute) - Secondary Discharge Diagnosis Chronic Problems: Chronic Problems (Last Reviewed 03/09/20 @ 09:18 by Josie Calvert) Parkinsons disease (Chronic) HTN (hypertension) (Chronic) HLD (hyperlipidemia) (Chronic) GERD (gastroesophageal reflux disease) (Chronic) Constipation (Chronic) Sleep apnea (Chronic) Depression with anxiety (Chronic) Hospital Course and Treatment Summary of Care Provided: This patient was seen in conjunction with Sharri Thomason NP. I have independently interviewed and examined the patient and reviewed pertinent historical, laboratory, and other data. Please refer to her note for patient's presentation, findings, and recommendations. 54-year-old male with a past medical history of hypertension, hyperlipidemia, anxiety/depression, obesity, GERD who was admitted with acute onset of chest discomfort. He was admitted to the telemetry floor. There were no acute events overnight. Troponins were trended and were negative. He underwent stress test that was negative. Patient was discharged to follow-up in the outpatient with his primary care doctor. On the day of discharge, patient was seen and examined. Denies any new complaints. Vitals were reviewed -stable Physical Exam: Gen: Comfortable, not pale, not jaundiced, alert oriented x3 CVS:HS I +II, regular, no murmurs RESP: CTA GI: BS present and normal, nontender, no palpable organs EXT:No edema - Physical Exam Vitals/I&O's: Vital Signs Temp Pulse Resp BP Pulse Ox 98.4 F 64 14 134/73 H 96 06/08/20 11:42 06/08/20 11:48 06/08/20 11:42 06/08/20 11:42 06/08/20 11:42 Oxygen Delivery Method Room Air Weight: 114.1 kg Body Mass Index (BMI) 35.3 Intake and Output for Last 24 Hours 06/07/20 06/08/20 06/09/20 23:59 23:59 23:59 Intake Total 1020 / 1020 965 / 965 Balance 1020 / 1020 965 / 965 Inpatient E&M: [id number] Disch Hosp
--- NOTE | 2020-06-08 13:54 | CASEMGMT ---
Per Anjelica PRIETO, clinicals were faxed to the [place] [facility] this am for pt. Kandis ANDERSON CM
== END 2020-06-08 13:55 | disposition home or self-care (01) | DRG 313 ==
LOC: ED 18:03 → PCU 18:37
PROVIDERS: Internal Medicine; Nurse Practitioner Family; Admitting Provider Family Medicine; Emergency Provider Emergency Medicine; PCP Nurse Practitioner Family; Visit Provider Internal Medicine
DX: R07.89 Other chest pain (principal); R73.9 Hyperglycemia, unspecified; G20 Parkinson's disease; I10 Essential (primary) hypertension; E78.5 Hyperlipidemia, unspecified; K21.9 Gastro-esophageal reflux disease without esophagitis; G47.33 Obstructive sleep apnea (adult) (pediatric); F41.8 Other specified anxiety disorders; E66.9 Obesity, unspecified; Z68.35 Body mass index [BMI] 35.0-35.9, adult; Z79.82 Long term (current) use of aspirin; Z79.899 Other long term (current) drug therapy; Z90.49 Acquired absence of other specified parts of digestive tract
CPT/HCPCS: 36415; 71045; 78452; 80048; 80053; 80061; 83036; 83735; 84484; 85025; 85379; 93005; 93017; 94660; 99251; 99285; A9500; J7030; A4216; G0463; J2785

== ENCOUNTER 2020-10-18 17:31 | Emergency (ER) | payer OTHER, MEDICARE, SELFPAY ==
[2020-10-18 17:31] VITALS: BP 155/80; PULSE 67; RESP 16; TEMP 37.3; BMI 34.8
--- NOTE | 2020-10-18 17:59 | EX.ED.UPPERE ---
HPI History of Present Illness Chief Complaint: Upper Extremity Injury Detail of Chief Complaint: Left hand injury Informant: patient Narrative Narrative: Patient presents to the emergency department with complaint of injury to his left thumb and hand. Patient states that he was at [place] yesterday getting into the hot tub when he slipped and injured his hand. He is right-hand dominant. He denies any other injuries. Patient having a hard time moving his left thumb. [facility] Medical History (Updated 10/18/20 @ 18:[address] Deo Rodriguez DO) Abdominal pain Constipation Depression with anxiety Diverticulitis Former smoker GERD (gastroesophageal reflux disease) Hyperlipidemia Hypertension Sleep apnea Home Medications aspirin 81 mg PO DAILY 05/12/19 [History Last Taken 02/17/20] cholecalciferol (vitamin D3) 2,000 unit PO DAILY 05/12/19 [History Last Taken 02/23/20] melatonin 9 mg PO QHS 05/12/19 [History Last Taken 02/23/20] pantoprazole 80 mg PO BID 05/12/19 [History Last Taken Unknown] paroxetine HCl 75 mg PO DAILY 05/12/19 [History Last Taken 02/23/20] trazodone 250 mg PO QHS 05/12/19 [History Last Taken 02/23/20] atorvastatin 20 mg tablet 40 mg PO DAILY tab 01/07/20 [History Last Taken 02/23/20] diltiazem HCl 30 mg tablet 60 mg PO DAILY tab 01/07/20 [History Last Taken 02/24/20] carbidopa-levodopa 1 tab PO QHS 02/17/20 [History Last Taken 02/23/20] famotidine 20 mg PO QHS 02/17/20 [History Last Taken 02/23/20] Allergy/AdvReac Type Severity Reaction Status Date / Time No Known Allergies Allergy Verified 10/18/20 17:31 Family History Mother Heart disease Hypertension High cholesterol Cancer skin cancer Father Heart disease High cholesterol Hypertension CVA (cerebral vascular accident) Surgical History (Updated 06/06/20 @ 16:[address] Lupe Shin MD) History of appendectomy History of colectomy (~02/2020) History of laparoscopic cholecystectomy Social History (Updated 03/09/20 @ 09:[address] Jay Chavez MD) Smoking Status: Former smoker alcohol intake: never substance use type: does not use ROS ROS ED Constitutional Constitutional ED: Reports systems reviewed and no addt'l complaints, except as documented; Denies body ache(s), change in weight or chills Eyes Eyes: Denies acute decrease in peripheral vision, change in vision, double vision or loss of vision ENT ENT ED: Reports none; Denies ear pain, lip swelling, loss taste/smell, neck pain, otalgia or sore throat Cardiovascular Cardiovascular: Reports none; Denies abdominal pain, chest pain with activity, leg edema, lightheadedness, palpitations, rapid heart rate or syncope Respiratory/Chest Respiratory/Chest: Reports none; Denies change in mental status, dry cough, dyspnea, hemoptysis, shortness of breath at rest or shortness of breath with exertion Gastrointestinal Gastrointestinal: Reports none; Denies abdominal pain, change in stool character, diarrhea, hematemesis, hematochezia, melena, rectal bleeding or vomiting Genitourinary Genitourinary ED: Reports none; Denies abdominal discomfort, anuria, dysuria, genital pain or polyuria Musculoskeletal Musculoskeletal: Reports none and other Details: Left hand injury ; Denies arthralgias, back pain, difficulty walking, extremity pain, muscle weakness or myalgias Integumentary Reports none; Denies abscess or rash Neurologic Neurologic: Reports none; Denies abnormal gait, confusion, focal weakness, frequent falls, headache(s), loss of vision, numbness, paresthesias, radicular pain, vertigo or weakness Psychiatric Psychiatric: Reports systems reviewed and no addt'l complaints, except as documented and none; Denies behavioral changes, confusion, difficulty concentrating, hallucinations, suicidal ideation, tactile hallucinations or visual hallucinations Endocrine Endocrinology: Denies none, cold intolerance, excessive sweating, fatigue or heat intolerance Hematologic/Lymphatic Hematologic/Lymphatic: Reports none; Denies anemia, easy bleeding or easy bruising Allergic/Immunologic Allergic/Immunologic ED: Denies as per HPI, none, lip swelling, mouth swelling, throat swelling, tongue swelling or hives EXAM Physical Exam Const Vital Signs: 10/18/20 17:31 Temperature 99.1 F Temperature Source Temporal Pulse Rate 67 Respiratory Rate 16 Blood Pressure 155/80 H Blood Pressure Mean 105 Positive well nourished and well developed General Appearance ED: well developed and NAD HEENT Reports TM's clear and moist mucous membranes normocephalic and atraumatic; Negative for trauma or tenderness Tympanic Membrane ED: Yes TM's clear Eyes PERRL and EOMs intact bilaterally General Eye ED: Negative for pale conjunctiva or scleral icterus Neck no lymphadenopathy, supple and no JVD General: Negative for tenderness Chest Wall inspection of chest normal and palpation of chest normal Chest: Negative for tenderness Resp normal respiratory effort and clear to auscultation bilaterally Effort and Inspection: Negative for respiratory distress or pain with movement Auscultation: Negative for rhonchi, wheezes or diminished lung sounds Cardio regular rate, regular rhythm, S1 normal heart sound, S2 normal heart sound and no murmurs Peripheral Pulses: pulses 2+ throughout GI normal to inspection, nondistended, normoactive bowel sounds, soft to palpation, non-tender, non-distended and no masses Back/Spine no CVA tenderness and no thoracic nor lumbar tenderness Extremity Extremity Narrative: Evaluation of the left hand reveals soft tissue swelling over the thenar eminence of the left hand. Patient is tenderness palpation over the anatomic snuffbox. He has tenderness over the dorsal aspect of the carpal bones diffusely. Patient has tenderness over the first MCP joint. Decreased range of motion flexion extension of the thumb at the IP joint and MCP joint secondary to swelling and pain. Neurovascularly intact distally. General Extremety ED: Yes edema General Extremity: edema Neuro oriented x3, CN's II-XII intact bilaterally, no sensory deficits noted and gait normal Sensorium / Orientation: awake, alert, oriented to person, oriented to place and oriented to time Motor Exam: strength 5/5 throughout and strength abnormal Psych mental status grossly normal Skin no rashes or lesions noted and no wounds MDM MDM MDM Narrative Medical decision making narrative: Patient has some tenderness in the anatomic snuffbox therefore he will be placed in a thumb spica splint. Patient advised to follow-up with his primary care physician in 5 to 7 days. He will use ibuprofen and Tylenol for discomfort. Radiography Diagnostic Testing: Three-view x-rays of left hand obtained interpreted by myself as no acute fractures or dislocations. Official report from radiology pending. Discharge Plan Triage Chief Complaint: Upper Extremity Injury ED Provider: Deo Rodriguez Dx/Rx/DC Orders Clinical Impression: Sprain and strain of left hand Instructions: ED Hand Sprain Prescriptions: No Action melatonin 3 MG tablet 9 mg PO QHS RF: 0 trazodone 100 MG tablet 250 mg PO QHS RF: 0 paroxetine HCl 30 MG tablet 75 mg PO DAILY RF: 0 pantoprazole 40 MG tablet 80 mg PO BID RF: 0 aspirin 81 MG tablet,chewable 81 mg PO DAILY RF: 0 cholecalciferol (vitamin D3) 1,000 UNIT tablet 2,000 unit PO DAILY RF: 0 atorvastatin 20 mg tablet 40 mg PO DAILY RF: 0 diltiazem HCl 30 mg tablet 60 mg PO DAILY RF: 0 carbidopa-levodopa 1 TABLET tablet extended release 1 tab PO QHS RF: 0 famotidine 20 MG tablet 20 mg PO QHS RF: 0 Primary Care Provider: Thuy Hannah Referrals: Thuy Hannah, PHYSICALLY IMPAIRED TEACHER-C [Primary Care Provider] - 5-7 Days Disposition Disposition: Home, Self Care
--- NOTE | 2020-10-18 18:03 | RAD_ITS ---
STUDY: X-RAY - LEFT HAND REASON FOR EXAM: Male, 55 years old. injury TECHNIQUE: 3 view(s) of the hand. COMPARISON: None. FINDINGS: Normal radiocarpal articulation. Normal distal radioulnar joint. Normal visualized carpal bones. Normal carpal articulations Normal carpometacarpal articulation of the thumb. Normal second through fifth carpometacarpal joints. Normal metacarpi. Normal metacarpophalangeal joint of the thumb. Normal interphalangeal joint of the thumb. Normal proximal and distal phalanges of the thumb. Normal metacarpophalangeal joints of the second through fifth fingers. Normal proximal and distal interphalangeal joints of the second through fifth fingers. Normal phalanges of the second through fifth fingers. There is a 3 mm metal foreign body in the soft tissues of the hyperthenar eminence. RAD/Hand Min 3 Views IMPRESSION: No fractures or dislocations. Electronically Signed: Rainer Estrada MD at 19:05 EDT , Service support ,
[2020-10-18 18:37] VITALS: BP 141/84; PULSE 59; RESP 16; O2SAT 99
[2020-10-18 19:02] VITALS: BP 147/86; PULSE 61; RESP 15; O2SAT 98
== END 2020-10-18 19:27 | disposition home or self-care (01) ==
PROVIDERS: Emergency Provider Emergency Medicine; PCP Nurse Practitioner Family
DX: S63.92XA Sprain of unspecified part of left wrist and hand, initial encounter (principal); S66.912A Strain of unspecified muscle, fascia and tendon at wrist and hand level, left hand, initial encounter; W18.43XA Slipping, tripping and stumbling without falling due to stepping from one level to another, initial encounter; Y93.89 Activity, other specified; Y92.9 Unspecified place or not applicable; Y99.9 Unspecified external cause status; I10 Essential (primary) hypertension; E78.5 Hyperlipidemia, unspecified; K21.9 Gastro-esophageal reflux disease without esophagitis; G47.30 Sleep apnea, unspecified; F32.9 Major depressive disorder, single episode, unspecified; F41.9 Anxiety disorder, unspecified; Z79.82 Long term (current) use of aspirin; Z79.899 Other long term (current) drug therapy; Z87.891 Personal history of nicotine dependence
CPT/HCPCS: 73130; 99283

== ENCOUNTER 2020-10-26 16:53 | Emergency (ER) | payer OTHER, MEDICARE, SELFPAY ==
[2020-10-26 16:54] VITALS: BP 146/82; PULSE 77; RESP 16; TEMP 37; O2SAT 97; BMI 36.6
--- NOTE | 2020-10-26 17:47 | CT_ITS ---
STUDY: CT ABDOMEN AND PELVIS WITH CONTRAST REASON FOR EXAM: Male, 55 years old. LLQ Abd pain RADIATION DOSAGE (If Supplied By Facility): CTDIvol = ( ) mGy, DLP = ( 1216.89 ) mGycm TECHNIQUE: Transaxial images were obtained from the dome of the diaphragm to the symphysis pubis without oral contrast. was administered. Sagittal and coronal images were reconstructed. Individualized dose optimization techniques were used for this CT. COMPARISON: 10/17/2019 FINDINGS: The visualized lung bases are unremarkable. The visualized portions of the heart are within normal limits. Nonspecific fatty infiltrated liver without mass or bile duct dilatation.. Gallbladder has been removed surgically.. Spleen is mildly enlarged but homogeneous attenuation. Normal pancreas. Normal bilateral adrenal glands. Normal right kidney. Normal left kidney. Normal visualized stomach. Normal small intestine. There are diverticular changes in the descending colon with focal stranding in the fat which may be consistent with acute diverticulitis. There is a trace of fluid in the paracolic gutter. Postsurgical changes status post resection of sigmoid colon. There is no peridiverticular abscess.. Appendix not visualized which may be consistent with prior appendectomy Normal abdominal aorta. Normal inferior vena cava. Normal retroperitoneum. Normal urinary bladder. Normal abdominal wall. Lumbar spine demonstrates mild spondylosis. CT/Abdomen/Pelvis W IV Cont ONLY IMPRESSION: Findings consistent with acute diverticulitis of the descending colon without evidence for peridiverticular abscess. Postop change status post resection of the sigmoid colon cholecystectomy and appendectomy Electronically Signed: Marlon Alex MD at 20:18 EDT , Service support ,
--- NOTE | 2020-10-26 17:48 | EDS_ITS ---
HPI HPI - GI History of Present Illness Chief Complaint: Abd Pain Informant: patient Abdominal Pain/Flank Pain Onset: Days Context: Gradual Onset Timing: Continuous Quality: Cramping Location: LLQ Current Severity: Mild Maximum Severity: Mild Nausea/Vomiting/Emesis GI Symptom: Positive for Nausea and Vomiting Onset: Today Diarrhea/Melena/Hematochezia GI Symptom: Positive for Diarrhea Onset: Today Stool Quality: Positive for Loose Severity: Mild Associated Symptoms Associated Symptoms: Negative for Dysuria, Frequency, Hematuria and Urgency Narrative Narrative: 55 yo male history of diverticulitis is and Parkinson's disease. Prior appendectomy, cholecystectomy and partial colectomy due to diverticulitis. 7-day history of nausea, vomiting diarrhea. Also left lower quadrant abdominal pain. Denies any dysuria. No stone history. No trauma. Prior similar symptoms: Yes Recent Illness/Hospitalization: No PFSH PFSH Medical History Abdominal pain Constipation Depression with anxiety Diverticulitis Former smoker GERD (gastroesophageal reflux disease) Hyperlipidemia Hypertension Sleep apnea Home Medications aspirin 81 mg PO DAILY 05/12/19 [History Last Taken 02/17/20] cholecalciferol (vitamin D3) 2,000 unit PO DAILY 05/12/19 [History Last Taken 02/23/20] melatonin 9 mg PO QHS 05/12/19 [History Last Taken 02/23/20] pantoprazole 80 mg PO BID 05/12/19 [History Last Taken Unknown] paroxetine HCl 75 mg PO DAILY 05/12/19 [History Last Taken 02/23/20] trazodone 250 mg PO QHS 05/12/19 [History Last Taken 02/23/20] atorvastatin 20 mg tablet 40 mg PO DAILY tab 01/07/20 [History Last Taken 02/23/20] diltiazem HCl 30 mg tablet 60 mg PO DAILY tab 01/07/20 [History Last Taken 02/24/20] carbidopa-levodopa 1 tab PO QHS 02/17/20 [History Last Taken 02/23/20] famotidine 20 mg PO QHS 02/17/20 [History Last Taken 02/23/20] ciprofloxacin HCl [Cipro] 500 mg PO BID #20 tab 10/26/20 [Rx Last Taken Unknown] hydrocodone-acetaminophen 1 tab PO Q4H PRN 4 Days #20 tab 10/26/20 [Rx Last Taken Unknown] metronidazole [Flagyl] 500 mg PO Q8H 10 Days #30 tab 10/26/20 [Rx Last Taken Unknown] venlafaxine [Effexor XR] 150 mg PO DAILY 10/26/20 [History Last Taken Unknown] Allergy/AdvReac Type Severity Reaction Status Date / Time No Known Allergies Allergy Verified 10/26/20 16:55 Family History Mother Heart disease Hypertension High cholesterol Cancer skin cancer Father Heart disease High cholesterol Hypertension CVA (cerebral vascular accident) Surgical History History of appendectomy History of colectomy (~02/2020) History of laparoscopic cholecystectomy Social History Smoking Status: Former smoker alcohol intake: never substance use type: does not use ROS ROS ED ROS Narrative Left lower quadrant abdominal pain, nausea, vomiting and diarrhea. Review of Systems ROS Unobtainable: Denies due to encephalopathy Constitutional Constitutional ED: Denies chills, fever(s) or subjective ENT ENT ED: Denies ear pain or sore throat Cardiovascular Cardiovascular: Denies chest pain or palpitations Respiratory/Chest Respiratory/Chest: Denies cough or dyspnea Gastrointestinal Gastrointestinal: Reports abdominal pain, diarrhea, nausea and vomiting; Denies constipation or melena Genitourinary Genitourinary ED: Denies dysuria or hematuria Musculoskeletal Musculoskeletal: Denies myalgias Integumentary Denies rash Neurologic Neurologic: Denies headache(s) Psychiatric Psychiatric: Denies depression Endocrine Endocrinology: Denies polyuria Hematologic/Lymphatic Hematologic/Lymphatic: Denies easy bruising Allergic/Immunologic Allergic/Immunologic ED: Denies urticaria EXAM Physical Exam Narrative Exam Narrative: Middle-aged male no acute distress. Vital signs stable afebrile. HEENT exam unremarkable. Lungs are clear. Heart regular rhythm. Abdomen soft. Tenderness left lower quadrant. No rebound guarding or rigidity. Nondistended. No pulsatile mass. Moving all 4 extremities. Back nontender. Neurologically awake and alert. No focal motor deficits. Const Vital Signs: 10/26/20 16:54 10/26/20 19:42 Temperature 98.6 F Temperature Source Temporal Pulse Rate 77 72 Respiratory Rate 16 16 Blood Pressure 146/82 H 134/76 H Blood Pressure Mean 103 95 Pulse Ox 97 97 Oxygen Delivery Method Room Air Room Air Positive well nourished and well developed General Appearance ED: well developed and NAD; Negative for pallor HEENT Reports moist mucous membranes normocephalic and atraumatic; Negative for trauma or tenderness Eyes PERRL and EOMs intact bilaterally Neck no lymphadenopathy, supple and no JVD General: Negative for tenderness Resp normal respiratory effort and clear to auscultation bilaterally Auscultation: Negative for rales, rhonchi or wheezes Cardio regular rate, regular rhythm, S1 normal heart sound, S2 normal heart sound and no murmurs GI non-distended and no masses; Negative for non-tender GI Narrative: Left lower quadrant tenderness. Auscultation: normoactive bowel sounds Palpation: soft and tender; Negative for guarding or rigid Back/Spine no CVA tenderness General Back: Negative for CVA tenderness Extremity full ROM General Extremety ED: Negative for edema or tenderness General Extremity: Negative for edema Neuro CN's II-XII intact bilaterally and moves all extremities Sensorium / Orientation: alert, oriented to person, oriented to place and oriented to time Motor Exam: strength 5/5 throughout Psych mental status grossly normal and thought process normal Skin no wounds General Skin Exam: Negative for jaundice or pallor Lesions: no lesions Rashes: no rashes MDM MDM MDM Narrative Medical decision making narrative: 55-year-old male history of diverticulitis. Left lower quadrant abdominal pain diverticulitis versus other etiologies. Treated with IV fluids, morphine and Zofran. CAT scan and labs pending. Repeat exam patient doing well at 825. Was given IV Toradol for additional pain. Labs are unremarkable as is the urinalysis. CAT scans consistent with acute diverticulitis. He will be started on Cipro and Flagyl for the next 10 days and follow-up with his primary care physician. Lab Data Attestation: I reviewed the patient's lab results. Lab results narrative: CBC shows a normal white count 9.7. Hemoglobin 15. Electrolytes show a gap of 4 normal creatinine of 1 liver enzymes unremarkable. Urine negative. Labs: Laboratory Results - last 24 hr 10/26/20 10/26/20 10/26/20 17:45 17:45 18:00 WBC 9.7 RBC 5.47 Hgb 15.6 Hct 47.0 MCV 85.9 MCH 28.5 MCHC 33.2 RDW Std Deviation 39.0 RDW Coeff of Gail 12.6 Plt Count 180 MPV 9.6 Immature Gran % (Auto) 0.300 Neut % (Auto) 68.5 Lymph % (Auto) 17.6 L Ritchie % (Auto) 12.2 H Eos % (Auto) 1.1 Baso % (Auto) 0.3 Absolute Neuts (auto) 6.6 Absolute Lymphs (auto) 1.70 Nucleated RBC % 0 Sodium 139 Potassium 3.9 Chloride 108 H Carbon Dioxide 27.0 Anion Gap 4 L BUN 11 Creatinine 1.09 Estim Creat Clear Calc 79.06 Est GFR (MDRD) Af Amer 90 Est GFR (MDRD) Non-Af 75 BUN/Creatinine Ratio 10.1 Glucose 118 H Calcium 8.6 Total Bilirubin 0.50 AST 18 ALT 36 Alkaline Phosphatase 61 Total Protein 7.5 Albumin 3.9 Globulin 3.6 Albumin/Globulin Ratio 1.1 Urine Color Yellow Urine Clarity Sl. Cloudy Urine pH 6.5 Ur Specific Carmichael 1.010 Urine Protein Negative Urine Glucose (UA) Normal Urine Ketones Negative Urine Occult Blood Negative Urine Nitrite Negative Urine Bilirubin Negative Urine Urobilinogen Normal Ur Leukocyte Esterase Negative Urine RBC 0 SEEN Urine WBC 0 SEEN Ur Squamous Epith Cells 0-5 SEEN Urine Bacteria 0 SEEN Urine Mucus 0 SEEN Radiography Diagnostic Testing: Radiology Impression Abdomen/Pelvis CT 10/26/20 17:47 IMPRESSION: Findings consistent with acute diverticulitis of the descending colon without evidence for peridiverticular abscess. Postop change status post resection of the sigmoid colon cholecystectomy and appendectomy Electronically Signed: Marlon Alex MD at 20:18 EDT , Service support , Discharge Plan Triage Chief Complaint: Abd Pain ED Provider: Javy Navarro Dx/Rx/DC Orders Clinical Impression: Diverticulitis Instructions: ED Diverticulitis Prescriptions: New ciprofloxacin HCl [Cipro] 500 mg tablet 500 mg PO BID Qty: 20 RF: 0 metronidazole [Flagyl] 500 mg tablet 500 mg PO Q8H 10 Days Qty: 30 RF: 0 hydrocodone-acetaminophen 5-325 mg tablet 1 tab PO Q4H PRN (Reason: pain) 4 Days Qty: 20 RF: 0 No Action melatonin 3 MG tablet 9 mg PO QHS RF: 0 trazodone 100 MG tablet 250 mg PO QHS RF: 0 paroxetine HCl 30 MG tablet 75 mg PO DAILY RF: 0 pantoprazole 40 MG tablet 80 mg PO BID RF: 0 aspirin 81 MG tablet,chewable 81 mg PO DAILY RF: 0 cholecalciferol (vitamin D3) 1,000 UNIT tablet 2,000 unit PO DAILY RF: 0 atorvastatin 20 mg tablet 40 mg PO DAILY RF: 0 diltiazem HCl 30 mg tablet 60 mg PO DAILY RF: 0 carbidopa-levodopa 1 TABLET tablet extended release 1 tab PO QHS RF: 0 famotidine 20 MG tablet 20 mg PO QHS RF: 0 venlafaxine [Effexor XR] 150 mg Capsule,Extended Release 24hr 150 mg PO DAILY RF: 0 Primary Care Provider: Thuy Hannah Referrals: Thuy Hannah, INSURANCE ADMINISTRATIVE ASSISTANT-C [Primary Care Provider] -
[2020-10-26 17:54] LABS: Absolute Neutrophil Count 6.6 X10^3/uL (2.0-7.7); Basophil# 0.03 X10^3/uL; Basophil% 0.3 % (0-1); Eosinophil# 0.11 X10^3/uL; Eosinophils% 1.1 % (0-5); Hemoglobin 15.6 g/dL (13.0-16.5); Lymphocyte % 17.6 % (19-41); Mean Corp Hgb Conc 33.2 g/dL (32-36); Mean Corpuscular Hgb 28.5 pg (27.0-32.0); Mean Corpuscular Volume 85.9 fL (80-94); Mean Platelet Vol. 9.6 fl (6.2-12.0); Monocyte# 1.18 X10^3/uL; Monocyte% 12.2 % (0-10); NRBC Flagged by Analyzer 0 % (0-5); Neutrophil # 6.63 X10^3/uL (2.7-7.7); Neutrophil % 68.5 % (47-70); Platelet Count 180 K/mm3 (150-450); RBC Distribution Width CV 12.6 % (11.6-14.6); Red Blood Count 5.47 M/mm3 (4.6-6.2); White Blood Count 9.7 K/mm3 (4.4-11.0)
[2020-10-26] MEDS: Ondansetron 4 MG/2 ML Vial IV (17:57)
[2020-10-26] MEDS: 0.9% Normal Saline 1,000 ML 1000 ML IV (17:57)
[2020-10-26] MEDS: morphine 8 MG/ML Syringe IV (17:57)
[2020-10-26 18:11] LABS: Bacteria 0 SEEN /hpf (None Seen); Mucous, Urine 0 SEEN /hpf (<or=2+); Red Blood Cells-Urine 0 SEEN /hpf (0-5); White Blood Cells 0 SEEN /hpf (0-5)
[2020-10-26 18:20] LABS: ALB/GLOB Ratio 1.1 RATIO (0.9-2.4); AST(SGOT) 18 U/L (15-37); Alanine Aminotransfer ALT/SGPT 36 U/L (16-61); Albumin, Serum 3.9 g/dL (3.2-5.0); Alkaline Phosphatase 61 U/L (45-117); Anion Gap 4 (5-15); BUN 11 mg/dL (7-18); BUN/Creat Ratio 10.1 RATIO (10-20); Calcium,Total 8.6 mg/dL (8.5-10.1); Chloride 108 mmol/L (98-107); Creatinine, Serum 1.09 mg/dL (0.70-1.30); EST Glomerular Filtration Rate 75 mL/min (>60); Est Glom Filt Rate - Afr Amer 90 mL/min (>60); Estimated Creatinine Clearance 79.06 ml/min; Globulin 3.6 g/dL (2.2-4.2); Glucose 118 mg/dL (74-106); Potassium 3.9 mmol/L (3.5-5.1); Protein, Total 7.5 g/dL (6.4-8.2); Sodium Level 139 mmol/L (136-145)
[2020-10-26 18:51] LABS: Color, Urine Yellow (Yellow); Glucose, Dipstick Normal (Normal); Ketone-Dipstick Negative (Negative); Leukocyte Esterase-Dipstick Negative /ul (Negative); Nitrite-Dipstick Negative (Negative); Occult Blood-Urine Negative /ul (Negative); Protein-Dipstick Negative (Negative); Urine Bilirubin Dipstick Negative (Negative); Urine Clarity Sl. Cloudy (Clear); Urine Urobilinogen Normal (Normal); Urine pH 6.5 (5.0 - 8.0)
[2020-10-26 19:32] LABS: Squamous Epithelial Cells - UA 0-5 SEEN /hpf (0-5)
[2020-10-26 19:42] VITALS: BP 134/76; PULSE 72; RESP 16; O2SAT 97
[2020-10-26] MEDS: Ketorolac 30 MG/ML Syringe IV (20:26)
--- NOTE | 2020-10-26 20:32 | ED.RN ---
this RN prepared to medicate pt. Did not realize med was a repeat. med vial opened. wasted with RN
[2020-10-26] MEDS: Ciprofloxacin 500 MG Tablet PO (20:53)
[2020-10-26] MEDS: metroNIDAZOLE 500 MG Tablet PO (20:53)
[2020-10-26 20:54] VITALS: BP 135/77; PULSE 84; RESP 16; O2SAT 98
== END 2020-10-26 20:55 | disposition home or self-care (01) ==
LOC: ED 17:59
PROVIDERS: Emergency Provider Emergency Medicine; PCP Nurse Practitioner Family
DX: K57.92 Diverticulitis of intestine, part unspecified, without perforation or abscess without bleeding (principal); F32.9 Major depressive disorder, single episode, unspecified; F41.9 Anxiety disorder, unspecified; K21.9 Gastro-esophageal reflux disease without esophagitis; E78.5 Hyperlipidemia, unspecified; G20 Parkinson's disease; Z79.82 Long term (current) use of aspirin; Z79.899 Other long term (current) drug therapy; Z87.891 Personal history of nicotine dependence
CPT/HCPCS: 74177; 80048; 80053; 81001; 85025; 96361; 96374; 96375; 99285; J7030; Q9967; A4216; J2405

== ENCOUNTER 2021-02-09 19:29 | Emergency (ER) | payer OTHER, SELFPAY ==
[2021-02-09 19:30] VITALS: BP 150/84; PULSE 92; RESP 15; TEMP 36.3; O2SAT 95; BMI 34.8
--- NOTE | 2021-02-09 20:00 | US_ITS ---
STUDY: VENOUS DOPPLER ULTRASOUND - LEFT LOWER EXTREMITY REASON FOR EXAM: Male, 55 years old. LEG PAIN AND SWELLING LT POSTERIOR KNEE PAIN TECHNIQUE: Ultrasound evaluation of the deep vein system to include nichols-scale imaging and compression was performed. Nichols-scale imaging and Doppler sonographic evaluation, including duplex spectral analysis and qualitative color flow sonography, was performed. COMPARISON: None. FINDINGS: Common Femoral Vein: Normal compression, spontaneity and augmentation. Normal color Doppler. Common Femoral Vein/Greater Saphenous Junction: Normal compression, spontaneity and augmentation. Normal color Doppler. Superficial Femoral Proximal: Normal compression, spontaneity and augmentation. Normal color Doppler. Superficial Femoral Middle: Normal compression, spontaneity and augmentation. Normal color Doppler. Superficial Femoral Distal: Normal compression, spontaneity and augmentation. Normal color Doppler. Popliteal Vein: Normal compression, spontaneity and augmentation. Normal color Doppler. Posterior Tibial Vein: Normal compression, spontaneity and augmentation. Normal color Doppler. Peroneal Vein: Normal compression, spontaneity and augmentation. Normal color Doppler. There is no demonstrated deep venous thrombosis. US/Venous Duplex Imag/Limited/Uni IMPRESSION: There is no demonstrated deep venous thrombosis. Please see technologist report in PACS for further details for their impression/ worksheet/ details/ etc. Electronically Signed: Rito Thrasher MD at 20:27 EST , Service support ,
--- NOTE | 2021-02-09 23:09 | EDS_ITS ---
HPI History of Present Illness Chief Complaint: Lower Extremity Injury Detail of Chief Complaint: Atraumatic left calf popliteal fossa pain Informant: patient Onset/Context/Timing Onset: Days (Onset 2 days ago) Context: Sudden Onset Timing: Continuous Quality of Pain: - (Pain) Location: Left popliteal fossa/calf Current Severity: Mild Maximum Severity: Moderate Worsened by: Nothing Relieved by: Nothing Associated Symptoms Associated Symptoms: Positive for - (No associated symptoms); Negative for Parasthesia, Weakness and Loss of Funtion Narrative Narrative: Patient is a 55-year-old male presents with atraumatic pain in the popliteal fossa and calf left side. He denies history of DVT or PE. There is no history of trauma. He denies paresthesia, anesthesia motors. He denies prior problems with his knee. He denies any bruising. He is not on an anticoagulant. He has no constitutional symptoms. Tetanus Immunization: 5-10 years Prior similar symptoms: No Recent Illness/Hospitalization: No [facility] Medical History Abdominal pain Constipation Depression with anxiety Diverticulitis Former smoker GERD (gastroesophageal reflux disease) Hyperlipidemia Hypertension Sleep apnea Home Medications aspirin 81 mg PO DAILY 05/12/19 [History Last Taken 02/17/20] cholecalciferol (vitamin D3) 2,000 unit PO DAILY 05/12/19 [History Last Taken 02/23/20] melatonin 9 mg PO QHS 05/12/19 [History Last Taken 02/23/20] pantoprazole 80 mg PO BID 05/12/19 [History Last Taken Unknown] paroxetine HCl 75 mg PO DAILY 05/12/19 [History Last Taken 02/23/20] trazodone 250 mg PO QHS 05/12/19 [History Last Taken 02/23/20] atorvastatin 20 mg tablet 40 mg PO DAILY tab 01/07/20 [History Last Taken 02/23/20] diltiazem HCl 30 mg tablet 60 mg PO DAILY tab 01/07/20 [History Last Taken 02/24/20] carbidopa-levodopa 1 tab PO QHS 02/17/20 [History Last Taken 02/23/20] famotidine 20 mg PO QHS 02/17/20 [History Last Taken 02/23/20] hydrocodone-acetaminophen 1 tab PO Q4H PRN 4 Days #20 tab 10/26/20 [Rx Last Taken Unknown] venlafaxine [Effexor XR] 150 mg PO DAILY 10/26/20 [History Last Taken Unknown] Allergy/AdvReac Type Severity Reaction Status Date / Time No Known Allergies Allergy Verified 02/09/21 19:32 Family History Mother Heart disease Hypertension High cholesterol Cancer skin cancer Father Heart disease High cholesterol Hypertension CVA (cerebral vascular accident) Surgical History History of appendectomy History of colectomy (~02/2020) History of laparoscopic cholecystectomy Social History (Updated 02/09/21 @ 23:[address] Flavio Concepcion MD) household members: spouse Smoking Status: Former smoker alcohol intake: never substance use type: does not use ROS ROS ED Constitutional Constitutional ED: Denies chills, fever(s), subjective or sweats Cardiovascular Cardiovascular: Denies chest pain, palpitations or racing heartbeat Respiratory/Chest Respiratory/Chest: Denies cough, dyspnea or dyspnea on exertion Gastrointestinal Gastrointestinal: Denies nausea or vomiting Musculoskeletal Musculoskeletal: Denies arthralgias or myalgias Hematologic/Lymphatic Hematologic/Lymphatic: Denies easy bleeding or easy bruising EXAM Physical Exam Const Vital Signs: 02/09/21 19:30 Temperature 97.4 F L Temperature Source Temporal Pulse Rate 92 Respiratory Rate 15 Blood Pressure 150/84 H Blood Pressure Mean 106 Pulse Ox 95 Oxygen Delivery Method Room Air Positive well nourished, well developed and obese; Negative for cachectic or contractures General Appearance ED: well developed and NAD; Negative for cachectic or contractures Nutritional Appearance: obese; Negative for cachectic HEENT normocephalic and atraumatic Eyes PERRL Neck full ROM and supple Chest Wall inspection of chest normal Resp normal respiratory effort Cardio regular rate and regular rhythm Extremity normal to inspection and full ROM Extremity Narrative: There is no reproducible pain. There is no fullness in the popliteal fossa. The patellas not blottable. There is no effusion. He has full active range of motion. There is no neurovascular mice. General Extremety ED: Yes weight-bearing difficulty; Negative for cyanosis or edema General Extremity: weight-bearing difficulty; Negative for cyanosis or edema Psych mental status grossly normal Skin no wounds Lesions: no lesions Rashes: no rashes MDM MDM MDM Narrative Medical decision making narrative: After case was discussed with triage nurse venous duplex was ordered. Venous duplex was interpreted as negative. Patient was informed the cause of his pain is unknown. Discharge Plan Triage Chief Complaint: Lower Extremity Injury ED Provider: Flavio Concepcion Dx/Rx/DC Orders Clinical Impression: Pain of left calf Instructions: ED Pain, Acute, Uncertain Cause Prescriptions: No Action melatonin 3 MG tablet 9 mg PO QHS RF: 0 trazodone 100 MG tablet 250 mg PO QHS RF: 0 paroxetine HCl 30 MG tablet 75 mg PO DAILY RF: 0 pantoprazole 40 MG tablet 80 mg PO BID RF: 0 aspirin 81 MG tablet,chewable 81 mg PO DAILY RF: 0 cholecalciferol (vitamin D3) 1,000 UNIT tablet 2,000 unit PO DAILY RF: 0 atorvastatin 20 mg tablet 40 mg PO DAILY RF: 0 diltiazem HCl 30 mg tablet 60 mg PO DAILY RF: 0 carbidopa-levodopa 1 TABLET tablet extended release 1 tab PO QHS RF: 0 famotidine 20 MG tablet 20 mg PO QHS RF: 0 venlafaxine [Effexor XR] 150 mg Capsule,Extended Release 24hr 150 mg PO DAILY RF: 0 hydrocodone-acetaminophen 5-325 mg tablet 1 tab PO Q4H PRN (Reason: pain) 4 Days Qty: 20 RF: 0 Primary Care Provider: Thuy Hannah Referrals: Thuy Hannah, CAL[facility]RATION SPECIALIST-C [Primary Care Provider] - 3-5 Days if not improving Disposition Disposition: Home, Self Care
== END 2021-02-09 23:24 | disposition home or self-care (01) ==
PROVIDERS: Emergency Provider Emergency Medicine; PCP Nurse Practitioner Family
DX: M79.662 Pain in left lower leg (principal); I10 Essential (primary) hypertension; E78.5 Hyperlipidemia, unspecified; K21.9 Gastro-esophageal reflux disease without esophagitis; G47.30 Sleep apnea, unspecified; E66.9 Obesity, unspecified; F32.A Depression, unspecified; F41.9 Anxiety disorder, unspecified; Z79.82 Long term (current) use of aspirin; Z79.899 Other long term (current) drug therapy; Z87.891 Personal history of nicotine dependence
CPT/HCPCS: 93971; 99282

== ENCOUNTER → 2021-02-16 10:54 | Outpatient (CLI) | payer MEDICARE, SELFPAY ==
[2021-02-16 12:21] LABS: Absolute Lymphocyte Count 1.43 X10^3/uL (0.83-4.51); Absolute Neutrophil Count 4.9 X10^3/uL (2.0-7.7); Basophil# 0.05 X10^3/uL; Basophil% 0.7 % (0-1); Eosinophil# 0.18 X10^3/uL; Eosinophils% 2.5 % (0-5); Hematocrit 47.8 % (40-54); Hemoglobin 16.4 g/dL (13.0-16.5); Lymphocyte # 1.43 X10^3/ul (0.83-4.51); Lymphocyte % 19.6 % (19-41); Mean Corp Hgb Conc 34.3 g/dL (32-36); Mean Corpuscular Hgb 29.4 pg (27.0-32.0); Mean Corpuscular Volume 85.8 fL (80-94); Mean Platelet Vol. 9.9 fl (6.2-12.0); Monocyte# 0.74 X10^3/uL; Monocyte% 10.1 % (0-10); NRBC Flagged by Analyzer 0 % (0-5); Neutrophil # 4.89 X10^3/uL (2.7-7.7); Neutrophil % 66.8 % (47-70); Platelet Count 160 K/mm3 (150-450); RBC Distribution Width CV 12.2 % (11.6-14.6); RBC Distribution Width SD 38.1 fl (35.1-43.9); Red Blood Count 5.57 M/mm3 (4.6-6.2); White Blood Count 7.3 K/mm3 (4.4-11.0)
[2021-02-16 12:41] LABS: Hemoglobin A1c 6.5 % (3.8-5.6)
[2021-02-16 12:47] LABS: AST(SGOT) 18 U/L (15-37); Alanine Aminotransfer ALT/SGPT 44 U/L (16-61); Albumin, Serum 3.6 g/dL (3.2-5.0); Alkaline Phosphatase 74 U/L (45-117); Anion Gap 3 (5-15); BUN 14 mg/dL (7-18); BUN/Creat Ratio 12.4 RATIO (10-20); Calcium,Total 8.9 mg/dL (8.5-10.1); Chloride 106 mmol/L (98-107); Creatinine, Serum 1.13 mg/dL (0.70-1.30); EST Glomerular Filtration Rate 71 mL/min (>60); Est Glom Filt Rate - Afr Amer 87 mL/min (>60); Globulin 3.7 g/dL (2.2-4.2); Glucose 231 mg/dL (74-106); Potassium 4.8 mmol/L (3.5-5.1); Protein, Total 7.3 g/dL (6.4-8.2); Sodium Level 137 mmol/L (136-145)
== END ==
PROVIDERS: PCP Internal Medicine; Referring Provider Internal Medicine; Visit Provider Internal Medicine
DX: I10 Essential (primary) hypertension (principal); R73.03 Prediabetes
CPT/HCPCS: 36415; 80053; 83036; 85025

== ENCOUNTER 2021-03-08 12:05 | Outpatient (CLI) | payer MEDICARE, SELFPAY ==
[2021-03-08 12:12] VITALS: BP 149/85; PULSE 72; RESP 16; TEMP 36.4; O2SAT 97
[2021-03-08] MEDS: 0.9% Saline Lock 10 ML Syringe IV (12:14)
[2021-03-08 12:37] VITALS: BP 139/74; PULSE 67; RESP 16; TEMP 36.8; O2SAT 98
[2021-03-08 13:31] VITALS: BP 141/74; PULSE 61; RESP 16; TEMP 36.5; O2SAT 99
== END 2021-03-08 23:59 | disposition home or self-care (01) ==
LOC: MS3OUT 12:06 → MS3 12:06
PROVIDERS: PCP Internal Medicine; Referring Provider Nurse Practitioner Adult Health; Visit Provider Nurse Practitioner Adult Health
DX: U07.1 COVID-19 (principal)
CPT/HCPCS: J7050; M0243; A4216; Q0244

== ENCOUNTER 2021-03-19 09:53 | Outpatient (CLI) | payer MEDICARE, SELFPAY ==
[2021-03-19 12:47] LABS: Anion Gap 6 (5-15); BUN 14 mg/dL (7-18); BUN/Creat Ratio 12.1 RATIO (10-20); Calcium,Total 9.2 mg/dL (8.5-10.1); Chloride 106 mmol/L (98-107); Creatinine, Serum 1.16 mg/dL (0.70-1.30); EST Glomerular Filtration Rate 69 mL/min (>60); Est Glom Filt Rate - Afr Amer 84 mL/min (>60); Glucose 176 mg/dL (74-106); Potassium 3.9 mmol/L (3.5-5.1); Sodium Level 136 mmol/L (136-145)
== END 2021-03-19 23:59 | disposition short-term general hospital (02) ==
LOC: BIMLAB 09:54
PROVIDERS: PCP Internal Medicine; Referring Provider Internal Medicine; Visit Provider Internal Medicine
DX: I10 Essential (primary) hypertension (principal)
CPT/HCPCS: 36415; 80048

== ENCOUNTER → 2021-07-08 | Outpatient (CLI) | payer MEDICARE, SELFPAY ==
--- NOTE | 2021-07-08 13:22 | VDLE_ITS ---
Reason For Study: Pain Procedure LEFT This is a venous duplex using B-mode, color GSV is normal. flow and spectral Doppler. CFV is compressible, spontaneous, phasic, Exam performed in department. competent, and demonstrates normal A preliminary report was called and/or faxed augmentation. to Brittney. FV is compressible, spontaneous, phasic, competent and demonstrates normal augmentation. POP V is compressible, spontaneous, phasic, competent and demonstrates normal augmentation. T/P Trunk is compressible. PTV is compressible. LT PerV is compressible. VL/Venous Duplex US, Unilateral Interpretation Summary There is no evidence of left lower extremity deep vein thrombosis. Left great s aphenous vein appears patent and compressible segmentally. Ordering Physician: Chang Lugo Referring Physician: Di Walden Performed By: Anu Maki RVT
== END | disposition home or self-care (01) ==
PROVIDERS: PCP Internal Medicine; Referring Provider Nurse Practitioner Family; Visit Provider Nurse Practitioner Family
DX: R07.9 Chest pain, unspecified (principal); M79.662 Pain in left lower leg
CPT/HCPCS: 93971

== ENCOUNTER → 2021-07-09 | Outpatient (CLI) | payer MEDICARE, SELFPAY ==
[2021-07-09 12:33] LABS: Absolute Lymphocyte Count 1.65 X10^3/uL (0.83-4.51); Absolute Neutrophil Count 4.7 X10^3/uL (2.0-7.7); Basophil# 0.03 X10^3/uL; Basophil% 0.4 % (0-1); Eosinophil# 0.25 X10^3/uL; Eosinophils% 3.4 % (0-5); Hematocrit 48.3 % (40-54); Hemoglobin 16.6 g/dL (13.0-16.5); Lymphocyte # 1.65 X10^3/ul (0.83-4.51); Lymphocyte % 22.1 % (19-41); Mean Corp Hgb Conc 34.4 g/dL (32-36); Mean Corpuscular Hgb 30.1 pg (27.0-32.0); Mean Corpuscular Volume 87.7 fL (80-94); Monocyte# 0.81 X10^3/uL; Monocyte% 10.9 % (0-10); NRBC Flagged by Analyzer 0 % (0-5); Neutrophil # 4.69 X10^3/uL (2.7-7.7); Neutrophil % 62.8 % (47-70); Platelet Count 174 K/mm3 (150-450); RBC Distribution Width CV 12.5 % (11.6-14.6); RBC Distribution Width SD 39.9 fl (35.1-43.9); Red Blood Count 5.51 M/mm3 (4.6-6.2); White Blood Count 7.5 K/mm3 (4.4-11.0)
[2021-07-09 12:38] LABS: Hemoglobin A1c 6.8 % (3.8-5.6)
[2021-07-09 13:20] LABS: ALB/GLOB Ratio 1.3 RATIO (0.9-2.4); AST(SGOT) 27 U/L (15-37); Alanine Aminotransfer ALT/SGPT 41 U/L (16-61); Albumin, Serum 3.8 g/dL (3.2-5.0); Alkaline Phosphatase 80 U/L (45-117); Anion Gap 8 (5-15); BUN 21 mg/dL (7-18); BUN/Creat Ratio 19.8 RATIO (10-20); Calcium,Total 8.1 mg/dL (8.5-10.1); Chloride 105 mmol/L (98-107); Cholesterol 131 mg/dL (200); Creatinine, Serum 1.06 mg/dL (0.70-1.30); EST Glomerular Filtration Rate 77 mL/min (>60); Est Glom Filt Rate - Afr Amer 93 mL/min (>60); Glucose 188 mg/dL (74-106); High Density Lipoprotein 19 mg/dL; Potassium 4.2 mmol/L (3.5-5.1); Protein, Total 6.8 g/dL (6.4-8.2); Sodium Level 136 mmol/L (136-145); Thyroid Stim Hormone (TSH) 1.29 uIU/mL (0.358-3.74); Triglycerides 983 mg/dL
== END | disposition home or self-care (01) ==
LOC: BIMLAB 09:04
PROVIDERS: PCP Internal Medicine; Referring Provider Nurse Practitioner Family; Visit Provider Nurse Practitioner Family
DX: K57.92 Diverticulitis of intestine, part unspecified, without perforation or abscess without bleeding (principal); R73.03 Prediabetes; I10 Essential (primary) hypertension; E78.5 Hyperlipidemia, unspecified; R07.9 Chest pain, unspecified; F41.8 Other specified anxiety disorders
CPT/HCPCS: 36415; 80053; 80061; 83036; 84443; 85025

== ENCOUNTER 2021-08-04 16:12 | Emergency (ER) | payer OTHER, SELFPAY ==
[2021-08-04 16:12] VITALS: BP 134/78; PULSE 79; RESP 15; TEMP 37.1; O2SAT 98; BMI 33.9
--- NOTE | 2021-08-04 16:29 | CT_ITS ---
STUDY: CT ABDOMEN AND PELVIS WITH CONTRAST REASON FOR EXAM: Male, 56 years old. abdominal pain -- IV PO Contrast RADIATION DOSAGE (If Supplied By Facility): CTDIvol = ( 10.85 ) mGy, DLP = ( 1220.83 ) mGycm TECHNIQUE: Transaxial images were obtained from the dome of the diaphragm to the symphysis pubis without oral contrast. Oral and amp; IV Gastrografin and amp; 75mL Isovue-370 was administered. Sagittal and coronal images were reconstructed. Individualized dose optimization techniques were used for this CT. COMPARISON: 10/26/2020 FINDINGS: Minimal bibasilar dependent atelectasis. A very small hiatal hernia. Mildly enlarged spleen measuring 15 cm in the greatest dimension. Unremarkable liver, pancreas, adrenals, and bilateral kidneys. Status post cholecystectomy with associated stable mild CBD dilatation. No CT evidence of acute appendicitis. Distal colonic diverticulosis. No acute diverticulitis. Status post partial sigmoid resection and anastomosis. No free air or free fluid. No adenopathy. Minimal vascular constipation. No abdominal aortic aneurysm. Sections through the pelvis demonstrate a mildly enlarged prostate. Urinary bladder grossly intact. No acute osseous abnormality. Multilevel thoracolumbar spondylosis. CT/Abdomen/Pelvis WITH Contrast IMPRESSION: No acute finding in the abdomen and pelvis. Stable mild splenomegaly. Distal colonic diverticulosis. No acute diverticulitis. Electronically Signed: Baljit Winters MD at 19:13 EDT ,
--- NOTE | 2021-08-04 16:30 | EKG12_ITS ---
Test Reason : Blood Pressure : / mmHG Vent. Rate : 071 BPM Atrial Rate : 071 BPM P-R Int : 206 ms QRS Dur : 084 ms QT Int : 376 ms P-R-T Axes : 010 -20 002 degrees QTc Int : 408 ms Normal sinus rhythm Normal ECG Confirmed by SELMA REDD, STEVE ([id number]), primer expeditor and drier AUBREE MIXON ([id number]) on 08/09/2021 7:37:42 AM Referred By: AROLDO Confirmed By:STEVE HAHN MD
--- NOTE | 2021-08-04 16:35 | EX.ED.DYSGE1 ---
HPI History of Present Illness Chief Complaint: Abd Pain Informant: patient Onset/Context/Timing Onset: Weeks Context: Gradual Onset Current Severity: Mild Maximum Severity: Moderate Narrative Narrative: Patient presents with 10-day history of left upper quadrant abdominal pain. He states over the past 2 days he has developed nausea. He does take famotidine for reflux disease but despite this is woken up 3 nights in a row with severe heartburn. He denies fever or chills. Pain does seem to be worse with food. He reports a 10 pound weight loss in the last 2 weeks. He has had prior cholecystectomy as well as a partial colectomy because of diverticulitis. He has been having normal bowel movements. No urinary complaints. [facility] Medical History Abdominal pain Borderline type 2 diabetes mellitus Constipation COVID-19 vaccine series completed Depression with anxiety Diverticulitis Former smoker GERD (gastroesophageal reflux disease) Hyperlipidemia Hypertension Sleep apnea Type 2 diabetes mellitus Home Medications aspirin 81 mg PO DAILY 05/12/19 [History Last Taken 02/17/20] cholecalciferol (vitamin D3) 2,000 unit PO DAILY 05/12/19 [History Last Taken 02/23/20] melatonin 9 mg PO QHS 05/12/19 [History Last Taken 02/23/20] pantoprazole 80 mg PO BID 05/12/19 [History Last Taken Unknown] paroxetine HCl 75 mg PO DAILY 05/12/19 [History Last Taken 02/23/20] trazodone 250 mg PO QHS 05/12/19 [History Last Taken 02/23/20] famotidine 20 mg PO QHS 02/17/20 [History Last Taken 02/23/20] venlafaxine [Effexor XR] 150 mg PO DAILY 10/26/20 [History Last Taken Unknown] carbidopa ER 50 mg-levodopa 200 mg tablet,extended release 1 tab PO TID tab 02/16/21 [History Last Taken Unknown] clonazepam 0.5 mg tablet 0.5 mg PO QHS PRN 02/16/21 [History Last Taken Unknown] diltiazem HCl 30 mg tablet 60 mg PO BID tab 02/16/21 [History Last Taken Unknown] hydrochlorothiazide 12.5 mg tablet 12.5 mg PO QAM #90 tab 02/16/21 [Rx Last Taken Unknown] levodopa 42 mg capsule with inhalation device 84 mg INHALATION BID 02/16/21 [History Last Taken Unknown] prazosin 2 mg capsule 6 mg PO QHS cap 02/16/21 [History Last Taken Unknown] propranolol 10 mg tablet 10 mg PO ONCE PRN tab 02/16/21 [History Last Taken Unknown] fenofibrate 54 mg tablet 54 mg PO DAILY #90 tab 07/13/21 [Rx Last Taken Unknown] semaglutide 0.5 mg SUBCUT QWEEK 90 Days #5.2 ml 07/13/21 [Rx Last Taken Unknown] empagliflozin [Jardiance] 0 mg PO DAILY 08/04/21 [History Last Taken Unknown] hydrocodone-acetaminophen 1 tab PO Q6H PRN 3 Days #10 tab 08/04/21 [Rx Last Taken Unknown] ondansetron 4 mg PO Q8H PRN #10 tab 08/04/21 [Rx Last Taken Unknown] pantoprazole [Protonix] 40 mg PO DAILY #14 tab 08/04/21 [Rx Last Taken Unknown] Allergy/AdvReac Type Severity Reaction Status Date / Time No Known Allergies Allergy Verified 08/04/21 16:12 Family History Mother Heart disease Hypertension High cholesterol Cancer skin cancer Father Heart disease High cholesterol Hypertension CVA (cerebral vascular accident) Surgical History History of appendectomy History of colectomy (~02/2020) History of laparoscopic cholecystectomy Social History household members: spouse number of children: 5 current occupational status: unemployed Smoking Status: Former smoker alcohol intake: never substance use type: does not use ROS ROS ED Constitutional Constitutional ED: Denies chills or fever(s) Eyes Eyes: Denies change in vision ENT ENT ED: Denies sore throat Cardiovascular Cardiovascular: Denies chest pain Respiratory/Chest Respiratory/Chest: Denies cough or dyspnea Gastrointestinal Gastrointestinal: Reports abdominal pain, nausea and vomiting; Denies diarrhea Genitourinary Genitourinary ED: Denies dysuria Musculoskeletal Musculoskeletal: Reports back pain Integumentary Denies rash Neurologic Neurologic: Denies headache(s) or weakness Allergic/Immunologic Allergic/Immunologic ED: Denies urticaria EXAM Physical Exam Const Vital Signs: 08/04/21 16:12 08/04/21 18:13 Temperature 98.8 F Temperature Source Temporal Pulse Rate 79 Respiratory Rate 15 16 Blood Pressure 134/78 H Blood Pressure Mean 96 Pulse Ox 98 Positive well nourished and well developed General Appearance ED: well developed HEENT Reports moist mucous membranes Eyes PERRL and EOMs intact bilaterally Neck supple Chest Wall inspection of chest normal and palpation of chest normal Resp normal respiratory effort and clear to auscultation bilaterally GI Auscultation: hypoactive bowel sounds Palpation: soft and tender other (Tenderness in the epigastrium as well as along the left side of the abdomen. No guarding or rebound.) Extremity normal to inspection Neuro oriented x3 Sensorium / Orientation: alert Psych mental status grossly normal Skin no rashes or lesions noted MDM MDM MDM Narrative Medical decision making narrative: Patient was given morphine and Zofran along with IV fluids. Lab work obtained. CT scan of the abdomen pelvis ordered. Lab Data Labs: Laboratory Results - last 24 hr 08/04/21 08/04/21 16:40 16:40 WBC 9.2 RBC 5.43 Hgb 16.0 Hct 46.5 MCV 85.6 MCH 29.5 MCHC 34.4 RDW Std Deviation 39.0 RDW Coeff of Gail 12.7 Plt Count 174 MPV 9.7 Immature Gran % (Auto) 0.200 Neut % (Auto) 71.7 H Lymph % (Auto) 16.2 L Thurston % (Auto) 9.1 Eos % (Auto) 2.3 Baso % (Auto) 0.5 Absolute Neuts (auto) 6.6 Absolute Lymphs (auto) 1.49 Nucleated RBC % 0 Sodium 139 Potassium 3.5 Chloride 107 Carbon Dioxide 26.0 Anion Gap 6 BUN 15 Creatinine 1.20 Estim Creat Clear Calc 73.21 Est GFR (MDRD) Af Amer 81 Est GFR (MDRD) Non-Af 67 BUN/Creatinine Ratio 12.5 Glucose 103 Calcium 9.1 Total Bilirubin 0.60 Direct Bilirubin 0.18 AST 34 ALT 52 Alkaline Phosphatase 53 Troponin I High Sens 12 Total Protein 7.3 Albumin 4.0 Globulin 3.3 Lipase 106 Radiography Diagnostic Testing: Clinical Impression(s) from Imaging Studies Abdomen/Pelvis CT 08/04/21 16:29 IMPRESSION: No acute finding in the abdomen and pelvis. Stable mild splenomegaly. Distal colonic diverticulosis. No acute diverticulitis. Electronically Signed: Baljit Winters MD at 19:13 EDT , EKG Initial EKG: Attestation: I personally reviewed and interpreted this EKG as follows: Interpretation: Sinus Rhythm (Sinus at 71 with no acute ischemia.) Treatment and Re-Evaluation Narrative: Due to increased pain patient did ask for something further and was given a small dose of Dilaudid. Lab work returns unremarkable. LFTs and lipase are normal. Troponin is negative. EKG reveals no ischemia. CT scan with p.o. and IV contrast shows no acute findings. Test results are all discussed with the patient. At this time I will write him for [place] and Zofran at home as well as a short course of Protonix to take in place of his Pepcid. He is to follow-up with his primary care physician if not improving. Return instructions provided. Discharge Plan Triage Chief Complaint: Abd Pain ED Provider: Lupe Shin Dx/Rx/DC Orders Clinical Impression: Abdominal pain Instructions: ED Abdominal Pain Unkn Cause Male... Prescriptions: New hydrocodone-acetaminophen 5-325 mg tablet 1 tab PO Q6H PRN (Reason: pain) 3 Days Qty: 10 RF: 0 pantoprazole [Protonix] 40 mg tablet,delayed release (DR/EC) 40 mg PO DAILY Qty: 14 RF: 0 ondansetron 4 mg tablet,disintegrating 4 mg PO Q8H PRN (Reason: nausea and vomiting) Qty: 10 RF: 0 No Action prazosin 2 mg capsule 6 mg PO QHS RF: 0 Inbrija 42 mg capsule, w/inhalation device 84 mg inhalation BID RF: 0 clonazepam 0.5 mg tablet 0.5 mg PO QHS PRN (Reason: Sleep) RF: 0 propranolol 10 mg tablet 10 mg PO ONCE PRN (Reason: Anxiety) RF: 0 hydrochlorothiazide 12.5 mg tablet 12.5 mg PO QAM Qty: 90 RF: 1 Ozempic 0.25 mg or 0.5 mg(2 mg/1.5 mL) pen injector 0.5 mg subcut QWEEK 90 Days Qty: 5.2 RF: 1 fenofibrate 54 mg tablet 54 mg PO DAILY Qty: 90 RF: 3 melatonin 3 MG tablet 9 mg PO QHS RF: 0 trazodone 100 MG tablet 250 mg PO QHS RF: 0 paroxetine HCl 30 MG tablet 75 mg PO DAILY RF: 0 pantoprazole 40 MG tablet 80 mg PO BID RF: 0 aspirin 81 MG tablet,chewable 81 mg PO DAILY RF: 0 cholecalciferol (vitamin D3) 1,000 UNIT tablet 2,000 unit PO DAILY RF: 0 diltiazem HCl 30 mg tablet 60 mg PO BID RF: 0 famotidine 20 MG tablet 20 mg PO QHS RF: 0 carbidopa-levodopa 50-200 mg tablet extended release 1 tab PO TID RF: 0 venlafaxine [Effexor XR] 150 mg Capsule,Extended Release 24hr 150 mg PO DAILY RF: 0 Jardiance 10 mg Tablet 0 mg PO DAILY RF: 0 Primary Care Provider: Chang Lugo NP Referrals: Chang Lugo NP, CABLE LAYER-C [Primary Care Provider] - 5-7 Days Disposition Disposition: Home, Self Care
[2021-08-04] MEDS: Ondansetron 4 MG/2 ML Vial IV (16:43)
[2021-08-04] MEDS: Morphine 4 MG/ML Syringe IV (16:43)
[2021-08-04 16:47] LABS: Absolute Lymphocyte Count 1.49 X10^3/uL (0.83-4.51); Absolute Neutrophil Count 6.6 X10^3/uL (2.0-7.7); Basophil# 0.05 X10^3/uL; Basophil% 0.5 % (0-1); Eosinophil# 0.21 X10^3/uL; Eosinophils% 2.3 % (0-5); Hematocrit 46.5 % (40-54); Lymphocyte # 1.49 X10^3/ul (0.83-4.51); Lymphocyte % 16.2 % (19-41); Mean Corp Hgb Conc 34.4 g/dL (32-36); Mean Corpuscular Hgb 29.5 pg (27.0-32.0); Mean Corpuscular Volume 85.6 fL (80-94); Mean Platelet Vol. 9.7 fl (6.2-12.0); Monocyte# 0.84 X10^3/uL; Monocyte% 9.1 % (0-10); NRBC Flagged by Analyzer 0 % (0-5); Neutrophil # 6.61 X10^3/uL (2.7-7.7); Neutrophil % 71.7 % (47-70); Platelet Count 174 K/mm3 (150-450); RBC Distribution Width CV 12.7 % (11.6-14.6); Red Blood Count 5.43 M/mm3 (4.6-6.2); White Blood Count 9.2 K/mm3 (4.4-11.0)
[2021-08-04] MEDS: 0.9% Normal Saline 1,000 ML 150 ML IV (17:04)
[2021-08-04 17:14] LABS: AST(SGOT) 34 U/L (15-37); Alanine Aminotransfer ALT/SGPT 52 U/L (16-61); Alkaline Phosphatase 53 U/L (45-117); Anion Gap 6 (5-15); BUN 15 mg/dL (7-18); BUN/Creat Ratio 12.5 RATIO (10-20); Bilirubin, Direct 0.18 mg/dL (0.00-0.30); Calcium,Total 9.1 mg/dL (8.5-10.1); Chloride 107 mmol/L (98-107); EST Glomerular Filtration Rate 67 mL/min (>60); Est Glom Filt Rate - Afr Amer 81 mL/min (>60); Estimated Creatinine Clearance 73.21 ml/min; Globulin 3.3 g/dL (2.2-4.2); Glucose 103 mg/dL (74-106); Lipase 106 U/L (73-393); Potassium 3.5 mmol/L (3.5-5.1); Protein, Total 7.3 g/dL (6.4-8.2); Sodium Level 139 mmol/L (136-145); Troponin-I HS 12 pg/mL (3.0-78.0)
[2021-08-04] MEDS: HYDROmorphone 0.5 MG/0.5 ML SYRINGE IV (17:57)
[2021-08-04 18:13] VITALS: RESP 16
[2021-08-04 19:32] VITALS: BP 140/82; PULSE 75; RESP 18; O2SAT 97
== END 2021-08-04 19:32 | disposition home or self-care (01) ==
PROVIDERS: Emergency Provider Emergency Medicine; PCP Nurse Practitioner Family; Visit Provider Emergency Medicine
DX: R10.9 Unspecified abdominal pain (principal); E11.9 Type 2 diabetes mellitus without complications; I10 Essential (primary) hypertension; E78.5 Hyperlipidemia, unspecified; K21.9 Gastro-esophageal reflux disease without esophagitis; R10.12 Left upper quadrant pain; R12 Heartburn; G47.30 Sleep apnea, unspecified; F32.A Depression, unspecified; F41.9 Anxiety disorder, unspecified; Z79.82 Long term (current) use of aspirin; Z79.899 Other long term (current) drug therapy; Z87.891 Personal history of nicotine dependence; Z90.49 Acquired absence of other specified parts of digestive tract
CPT/HCPCS: 74177; 80048; 80076; 83690; 84484; 85025; 93005; 96361; 96374; 96375; 99283; J7030; Q9967; A4216; J2405

== ENCOUNTER → 2021-09-20 | Outpatient (CLI) | payer MEDICARE, SELFPAY ==
[2021-09-20 12:18] LABS: Absolute Lymphocyte Count 1.39 X10^3/uL (0.83-4.51); Absolute Neutrophil Count 4.3 X10^3/uL (2.0-7.7); Basophil# 0.03 X10^3/uL; Basophil% 0.5 % (0-1); Eosinophil# 0.15 X10^3/uL; Eosinophils% 2.3 % (0-5); Hematocrit 49.3 % (40-54); Hemoglobin 16.3 g/dL (13.0-16.5); Lymphocyte # 1.39 X10^3/ul (0.83-4.51); Lymphocyte % 21.4 % (19-41); Mean Corp Hgb Conc 33.1 g/dL (32-36); Mean Corpuscular Hgb 29.2 pg (27.0-32.0); Mean Corpuscular Volume 88.4 fL (80-94); Monocyte# 0.59 X10^3/uL; Monocyte% 9.1 % (0-10); NRBC Flagged by Analyzer 0 % (0-5); Neutrophil # 4.34 X10^3/uL (2.7-7.7); Neutrophil % 66.5 % (47-70); Platelet Count 166 K/mm3 (150-450); RBC Distribution Width CV 12.2 % (11.6-14.6); RBC Distribution Width SD 39.9 fl (35.1-43.9); Red Blood Count 5.58 M/mm3 (4.6-6.2); White Blood Count 6.5 K/mm3 (4.4-11.0)
[2021-09-20 12:27] LABS: ALB/GLOB Ratio 1.2 RATIO (0.9-2.4); AST(SGOT) 20 U/L (15-37); Alanine Aminotransfer ALT/SGPT 30 U/L (16-61); Albumin, Serum 4.2 g/dL (3.2-5.0); Alkaline Phosphatase 51 U/L (45-117); Anion Gap 6 (5-15); BUN 20 mg/dL (7-18); BUN/Creat Ratio 15.3 RATIO (10-20); Chloride 107 mmol/L (98-107); Cholesterol 174 mg/dL (200); Creatinine, Serum 1.31 mg/dL (0.70-1.30); EST Glomerular Filtration Rate 60 mL/min (>60); Est Glom Filt Rate - Afr Amer 73 mL/min (>60); Globulin 3.4 g/dL (2.2-4.2); Glucose 107 mg/dL (74-106); High Density Lipoprotein 30 mg/dL; Potassium 4.1 mmol/L (3.5-5.1); Protein, Total 7.6 g/dL (6.4-8.2); Sodium Level 139 mmol/L (136-145); Triglycerides 156 mg/dL; Very Low Density Lipoprotein 31 mg/dL (5-40)
[2021-09-20 12:31] LABS: Hemoglobin A1c 5.6 % (3.8-5.6)
== END | disposition home or self-care (01) ==
LOC: BIMLAB 10:53
PROVIDERS: PCP Nurse Practitioner Family; Referring Provider Physician Assistant; Visit Provider Physician Assistant
DX: K57.92 Diverticulitis of intestine, part unspecified, without perforation or abscess without bleeding (principal); E11.9 Type 2 diabetes mellitus without complications; I10 Essential (primary) hypertension; E78.5 Hyperlipidemia, unspecified; K21.9 Gastro-esophageal reflux disease without esophagitis; R07.9 Chest pain, unspecified
CPT/HCPCS: 36415; 80053; 80061; 83036; 85025

== ENCOUNTER 2021-11-30 15:37 | Inpatient (IN) | payer OTHER, SELFPAY ==
[2021-11-30] VITALS (33 sets, daily range): BP systolic 125–172; BP diastolic 65–100; PULSE 60–90; RESP 13–20; TEMP 36.4–37.1; O2SAT 94–977; BMI 29.3; BMI 31.1
--- NOTE | 2021-11-30 15:42 | EKG12_ITS ---
Test Reason : STROKE Blood Pressure : / mmHG Vent. Rate : 074 BPM Atrial Rate : 074 BPM P-R Int : 190 ms QRS Dur : 090 ms QT Int : 380 ms P-R-T Axes : 049 -26 019 degrees QTc Int : 421 ms Normal sinus rhythm Normal ECG Confirmed by STEVE HAHN MD ([id number]), slot editor AUBREE MIXON ([id number]) on 12/02/2021 8:01:19 AM Referred By: THOMAS Confirmed By:STEVE HAHN MD
--- NOTE | 2021-11-30 15:43 | CT_ITS ---
STUDY: CT HEAD STROKE PROTOCOL W/O CONTRAST INJECTION REASON FOR EXAM: Male, 56 years old. Neuro deficit, acute, stroke suspected RADIATION DOSAGE (If Supplied By Facility): CTDIvol = ( 44.99 ) mGy, DLP = ( a 46.73 ) mGycm TECHNIQUE: Transaxial CT imaging of the brain was performed without administration of intravenous contrast material. Individualized dose optimization techniques were used for this CT. COMPARISON: No relevant priors. FINDINGS: Normal soft tissue structures. Normal calvarium. Normal size ventricles and extra-axial spaces for the patient''s age. Normal white matter tracts of the cerebral hemispheres. Normal basal ganglia and thalami. Normal brainstem. Normal cerebellum. There is no intracranial hemorrhage. There are no findings of an acute ischemic infarction. There is opacification of both maxillary sinuses. ASPECT score: 10 CT/STROKE Brain/Head without Cont IMPRESSION: Normal unenhanced CT scan of the brain. N.B. : The above Results were Read Back by Nikhil Jarquin MD to [facility] and understanding confirmed on 11/30/2021 15:57:20 (ET). Electronically Signed: Nikhil Jarquin MD at 15:58 EDT ,
--- NOTE | 2021-11-30 15:47 | EDS_ITS ---
HPI History of Present Illness Chief Complaint: Neuro S/Sx Detail of Chief Complaint: Strokelike symptoms that started at 1430 Informant: patient and spouse/S.O. Onset/Context/Timing Onset: Hours Context: Sudden Onset Timing: Continuous Quality and Location: Positive for Right Facial Droop, Right Face Paresthesia, Right Arm Parasthesia and Right Leg Parasthesia Current Severity: Mild Maximum Severity: Mild Worsened by: Nothing Relieved by: Nothing Associated Symptoms Associated Symptoms: Negative for Headache, Nausea, Vomiting or Chest Pain Narrative Narrative: Patient is a 56-year-old male with history of type 2 diabetes, hypertension, hyperlipidemia, GERD, obstructive sleep apnea, prior stroke and Parkinson's disease. He was brought to the hospital because of strokelike symptoms. He texted his at 1430. He was brought to the emergency department immediately. Denies headache. Nuys double vision, blurred vision loss of vision. No drainage ears decreased hearing. Denies cardiac symptoms. Denies respiratory symptoms. Nuys GI symptoms. states he does have weakness from his Parkinson's but its not unilateral. Prior similar symptoms: Yes Recent Illness/Hospitalization: No PFSH PFSH Medical History Abdominal pain Borderline type 2 diabetes mellitus Constipation COVID-19 vaccine series completed Depression with anxiety Diverticulitis Former smoker GERD (gastroesophageal reflux disease) Hyperlipidemia Hypertension Sleep apnea Type 2 diabetes mellitus Home Medications aspirin 81 mg chewable tablet 81 mg PO DAILY BLOOD THINNER 05/12/19 [History Last Taken 02/17/20] cholecalciferol (vitamin D3) 25 mcg (1,000 unit) tablet 2,000 unit PO DAILY SUPPLEMENT 05/12/19 [History Last Taken 02/23/20] melatonin 3 mg tablet 9 mg PO QHS SLEEP 05/12/19 [History Last Taken 02/23/20] paroxetine HCl 30 mg tablet 75 mg PO DAILY DEPRESSION 05/12/19 [History Last Taken 02/23/20] trazodone 100 mg tablet 250 mg PO QHS SLEEP 05/12/19 [History Last Taken 02/23/20] famotidine 20 mg tablet 20 mg PO QHS GERD 02/17/20 [History Last Taken 02/23/20] venlafaxine 150 mg capsule,extended release 24 hr (Effexor XR) 150 mg PO DAILY 10/26/20 [History Last Taken Unknown] carbidopa ER 50 mg-levodopa 200 mg tablet,extended release 1 tab PO TID PARKINSONS 02/16/21 [History Last Taken Unknown] clonazepam 0.5 mg tablet 0.5 mg PO QHS PRN Sleep 02/16/21 [History Last Taken Unknown] diltiazem HCl 30 mg tablet 60 mg PO BID BP 02/16/21 [History Last Taken Unknown] hydrochlorothiazide 12.5 mg tablet 12.5 mg PO QAM #90 tabs 02/16/21 [Rx Last Taken Unknown] levodopa 42 mg capsule with inhalation device (Inbrija) 84 mg inhalation BID 02/16/21 [History Last Taken Unknown] prazosin 2 mg capsule 6 mg PO QHS 02/16/21 [History Last Taken Unknown] propranolol 10 mg tablet 10 mg PO ONCE PRN Anxiety 02/16/21 [History Last Taken Unknown] fenofibrate 54 mg tablet 54 mg PO DAILY #90 tabs 07/13/21 [Rx Last Taken Unknown] empagliflozin 10 mg tablet (Jardiance) 0 mg PO DAILY 08/04/21 [History Last Taken Unknown] ondansetron 4 mg disintegrating tablet 4 mg PO Q8H PRN nausea and vomiting #10 tabs 08/04/21 [Rx Last Taken Unknown] pantoprazole 40 mg tablet,delayed release (Protonix) 40 mg PO DAILY #14 tabs 08/04/21 [Rx Last Taken Unknown] ciprofloxacin HCl 500 mg tablet 500 mg PO Q12H 2 weeks #28 tabs 11/30/21 [Rx Last Taken Unknown] Allergy/AdvReac Type Severity Reaction Status Date / Time No Known Allergies Allergy Verified 11/30/21 10:09 Family History Mother Heart disease Hypertension High cholesterol Cancer skin cancer Father Heart disease High cholesterol Hypertension CVA (cerebral vascular accident) Surgical History History of appendectomy History of colectomy (~02/2020) History of laparoscopic cholecystectomy Social History household members: spouse number of children: 5 current occupational status: unemployed Smoking Status: Former smoker alcohol intake: never substance use type: does not use ROS ROS ED Constitutional Constitutional ED: Denies chills, fever(s), subjective, sweats or weakness Eyes Eyes: Denies blurry vision, change in vision or diplopia ENT ENT ED: Denies ear pain, rhinorrhea or sore throat Cardiovascular Cardiovascular: Denies chest pain or palpitations Respiratory/Chest Respiratory/Chest: Denies cough, dyspnea or dyspnea on exertion Gastrointestinal Gastrointestinal: Denies abdominal pain, diarrhea, melena, nausea or vomiting Genitourinary Genitourinary ED: Denies dysuria, hematuria or urinary frequency Musculoskeletal Musculoskeletal: Denies arthralgias, back pain, myalgias or neck pain Integumentary Denies Abrasions or rash Neurologic Neurologic: Reports paresthesias and weakness; Denies headache(s) Psychiatric Psychiatric: Denies anxiety, depression or suicidal ideation Endocrine Endocrinology: Denies polydipsia, polyphagia or polyuria Hematologic/Lymphatic Hematologic/Lymphatic: Denies easy bleeding or easy bruising EXAM Physical Exam Const Vital Signs: 11/30/21 15:39 11/30/21 15:55 11/30/21 15:55 Temperature 97.6 F L Temperature Source Temporal Pulse Rate 90 84 Respiratory Rate 16 18 Blood Pressure 154/90 H 136/95 H Blood Pressure Mean 111 108 Blood Pressure Source Blood Pressure Position Blood Pressure Location Pulse Ox 98 97 97 Oxygen Delivery Method Room Air Room Air Room Air 11/30/21 15:55 11/30/21 16:09 11/30/21 16:12 Temperature 97.6 F L Temperature Source Temporal Pulse Rate 83 85 Respiratory Rate 18 16 Blood Pressure 172/85 H 172/85 H 172/85 H Blood Pressure Mean 114 114 Blood Pressure Source Blood Pressure Position Blood Pressure Location Pulse Ox 98 97 Oxygen Delivery Method Room Air Room Air 11/30/21 16:12 11/30/21 16:12 11/30/21 16:27 Temperature 98.5 F 98.5 F Temperature Source Temporal Temporal Temporal Pulse Rate 71 73 67 Respiratory Rate 16 16 14 Blood Pressure 157/86 H 157/86 H 142/77 H Blood Pressure Mean 109 109 98 Blood Pressure Source Monitor Blood Pressure Position Sitting Blood Pressure Location Left Arm Pulse Ox 96 96 95 Oxygen Delivery Method Room Air Room Air 11/30/21 16:27 11/30/21 16:31 Temperature 98.5 F 98.5 F Temperature Source Temporal Temporal Pulse Rate 67 69 Respiratory Rate 16 14 Blood Pressure 142/77 H 142/77 H Blood Pressure Mean 98 98 Blood Pressure Source Monitor Blood Pressure Position Supine Blood Pressure Location Left Arm Pulse Ox 96 96 Oxygen Delivery Method Room Air Room Air Positive well nourished and well developed General Appearance ED: well developed and NAD HEENT Reports moist mucous membranes Nose: other Other Details: Ears normal. Nares patent. Mucosa moist. Uvula midline. No deviation tongue or protrusion. Head is atraumatic normocephalic. Eyes PERRL and EOMs intact bilaterally General Eye ED: Negative for pale conjunctiva or scleral icterus Neck no lymphadenopathy, supple and no JVD Chest Wall inspection of chest normal and palpation of chest normal Resp normal respiratory effort and clear to auscultation bilaterally Cardio no murmurs Rate: regular rate Rhythm: regular rhythm Heart Sounds: S1 normal and S2 normal GI normal to inspection, nondistended, normoactive bowel sounds, soft to palpation, non-tender and non-distended Back/Spine no CVA tenderness Thoracic Spine / Upper Back: Negative for thoracic spinal tenderness Lumbar Spine / Lower Back: Negative for lumbar spinal tenderness Extremity normal to inspection General Extremety ED: Negative for deformity, edema or tenderness General Extremity: Negative for deformity or edema Neuro No oriented x3, CN's II-XII intact bilaterally and No no sensory deficits noted [place] Coma Scale: document GCS findings Spontaneous Obeys Commands Confused 14 Sensorium / Orientation: oriented to person, oriented to place and orientation impaired; Negative for alert or oriented to time Motor Exam: Negative for strength 5/5 throughout Psych Mood & Affect: depressed Skin no wounds General Skin Exam: Negative for jaundice Lesions: no lesions Rashes: no rashes NIHSS NIHSS Initial: 1a Level of Consciousness: 1 1b LOC Questions (Score 2 if aphasic/stupor): 1 1c LOC Commands (Only score 1st attempt): 0 2 Best Gaze (If aphasic, use reflexive mvmts.): 0 3 Visual: 1 (Patient has a visual field cut patient right lower quadrant, homonymous quadrantanopsia) 4 Facial Palsy: 0 5 Motor Arm Right (UN = amputation/fusion): 1 5 Motor Arm Left: 0 6 Motor Leg Right: 2 6 Motor Leg Left: 0 8 Sensory (Aphasia/stupor=0 or 1, coma=2): 1 9 Best Language: 0 10 Dysarthria (mute, coma=2, intubated=UN): 0 11 Extinction and Inattention (only scored if +): 1 Total Score: 8 MDM MDM MDM Narrative Medical decision making narrative: NIH was not completed however his score is 6 without testing for visual field cut or cerebellar dysfunction. CT of the head was ordered as well as CTA of the head neck When Dr. Hanna the neurologist from [facility] was available. He was informed the patient's presentation, NIH score and discussion that was being had with and patient regarding tPA. They did give verbal consent. He agreed. tPA was ordered. Lab Data Attestation: I reviewed the patient's lab results. Lab results narrative: CBC is unremarkable. Coags are unremarkable. [id number] glucose is elevated 182. Basic metabolic panel and troponin are unremarkable. Labs: Laboratory Results - last 24 hr 11/30/21 11/30/21 11/30/21 15:43 15:45 15:45 WBC 8.2 RBC 5.60 Hgb 15.8 Hct 47.8 MCV 85.4 MCH 28.2 MCHC 33.1 RDW Std Deviation 38.6 RDW Coeff of Gail 12.6 Plt Count 194 MPV 9.7 Immature Gran % (Auto) 0.200 Neut % (Auto) 65.0 Lymph % (Auto) 22.1 [place] % (Auto) 9.3 Eos % (Auto) 2.7 Baso % (Auto) 0.7 Absolute Neuts (auto) 5.3 Absolute Lymphs (auto) 1.80 Nucleated RBC % 0 PT 13.3 INR 1.0 APTT 27.9 Sodium Potassium Chloride Carbon Dioxide Anion Gap BUN Creatinine Estim Creat Clear Calc Est GFR (MDRD) Af Amer Est GFR (MDRD) Non-Af BUN/Creatinine Ratio Glucose Calcium Troponin I High Sens POC Glucose 182 H 11/30/21 15:45 WBC RBC Hgb Hct MCV MCH MCHC RDW Std Deviation RDW Coeff of Gail Plt Count MPV Immature Gran % (Auto) Neut % (Auto) Lymph % (Auto) [place] % (Auto) Eos % (Auto) Baso % (Auto) Absolute Neuts (auto) Absolute Lymphs (auto) Nucleated RBC % PT INR APTT Sodium 141 Potassium 3.8 Chloride 107 Carbon Dioxide 28.0 Anion Gap 6 BUN 23 H Creatinine 1.17 Estim Creat Clear Calc 75.09 Est GFR (MDRD) Af Amer 83 Est GFR (MDRD) Non-Af 68 BUN/Creatinine Ratio 19.7 Glucose 165 H Calcium 9.3 Troponin I High Sens 10 POC Glucose Radiography Diagnostic Testing: Clinical Impression(s) from Imaging Studies Brain CT 11/30/21 15:43 IMPRESSION: Normal unenhanced CT scan of the brain. N.B. : The above Results were Read Back by Nikhil Jarquin MD to Flavio Concepcion and understanding confirmed on 11/30/2021 15:57:20 (ET). Electronically Signed: Nikhil Jarquin MD at 15:58 EDT , ADDENDUM: 11/30/21 1605 IMPRESSION: Normal unenhanced CT scan of the brain. N.B. : The above Results were Read Back by Nikhil Jarquin MD to Flavio Concepcion and understanding confirmed on 11/30/2021 15:57:20 (ET). Electronically Signed: Nikhil Jarquin MD at 15:58 EDT , Head/Neck CTA 11/30/21 15:52 IMPRESSION: Minor atherosclerotic disease within the brain and neck. Electronically Signed: Marlon Alex MD at 16:15 EDT , ADDENDUM: 11/30/21 1629 IMPRESSION: Minor atherosclerotic disease within the brain and neck. N.B. : The above Results were Read Back by Marlon Alex MD to Lupe Shin MD, and understanding confirmed on 11/30/2021 16:22:04 (ET). Electronically Signed: Marlon Alex MD at 16:15 EDT , EKG Initial EKG: Attestation: I personally reviewed and interpreted this EKG as follows: Interpretation: Sinus Rhythm (The EKG is normal. Rate is 74. VA interval is 190 ms. Cures duration 90 ms. QT duration 280 ms. Dixie is normal) Stroke Documentation Questions Stroke Team Activated: Yes Reviewed Inclusion/Exclusion criteria: Yes IV Alteplase (t-PA) Administered: Yes No contraindications for IV Alteplase (t-PA) administration.: Yes Alteplase (t-PA) risks, benefits, alternative discussed: Yes Critical Care Time Critical Care Time: Yes Critical care time (excluding procedures): 30-74 minutes (32 minutes), Including time spent: (History, physical, documentation, review of CT scan, discussion with radiologist, discussion with neurologist at [facility]), Discussing w/Patient &/or Family/Machine Operator Assistant (Discussion with patient and regarding administration tPA with risk factors and benefits outlined.), Discussing w/Consultants (Radiologist, neurologist and hospitalist), Arranging Admission or Transfer and - (Administration of tPA) Discharge Plan Dx/Rx/DC Orders Clinical Impression: Acute cerebrovascular accident (CVA) due to ischemia, HTN (hypertension), HLD (hyperlipidemia), Borderline type 2 diabetes mellitus Disposition Disposition: Acute Care [facility]
[2021-11-30 15:51] LABS: Absolute Neutrophil Count 5.3 X10^3/uL (2.0-7.7); Basophil# 0.06 X10^3/uL; Basophil% 0.7 % (0-1); Eosinophil# 0.22 X10^3/uL; Eosinophils% 2.7 % (0-5); Hematocrit 47.8 % (40-54); Hemoglobin 15.8 g/dL (13.0-16.5); Lymphocyte % 22.1 % (19-41); Mean Corp Hgb Conc 33.1 g/dL (32-36); Mean Corpuscular Hgb 28.2 pg (27.0-32.0); Mean Corpuscular Volume 85.4 fL (80-94); Mean Platelet Vol. 9.7 fl (6.2-12.0); Monocyte# 0.76 X10^3/uL; Monocyte% 9.3 % (0-10); NRBC Flagged by Analyzer 0 % (0-5); Platelet Count 194 K/mm3 (150-450); RBC Distribution Width CV 12.6 % (11.6-14.6); RBC Distribution Width SD 38.6 fl (35.1-43.9); White Blood Count 8.2 K/mm3 (4.4-11.0)
--- NOTE | 2021-11-30 15:52 | CT_ITS ---
We are attempting to reach an attending provider to discuss findings. An addendum with communication details will be sent when the communication is complete. STUDY: CTA HEAD AND NECK WITH CONTRAST REASON FOR EXAM: Male, 56 years old. Stroke RADIATION DOSAGE (If Supplied By Facility): CTDIvol = ( 23.28 ) mGy, DLP = ( 701.67 ) mGycm TECHNIQUE: CT angiography was performed with a multi-detector CT scanner. Data acquisition was obtained from the skull base through the vertex following intravenous administration of IV 100mL [id number]-370. MIP images were reconstructed from the axial data set. Post-processing of the angiographic images was performed, with multiplanar reformation and 3D reconstruction. Individualized dose optimization techniques were used for this CT. COMPARISON: No relevant priors. FINDINGS: Normal bilateral petrous carotid arteries. Minor calcific plaquing of the right cavernous carotid artery with a normal supraclinoid bifurcation. Minor calcific plaquing of the left cavernous carotid artery with a normal supraclinoid bifurcation. Normal right A1 segments of the anterior cerebral artery. Normal left A1 segments of the anterior cerebral artery. Anterior communicating artery not visualized consistent with normal variant. Normal bilateral A2 segments of the anterior cerebral arteries. Normal right M1 and M2 segments of the middle cerebral arteries, with a normal M1 bifurcation. Normal left M1 and M2 segments of the middle cerebral arteries, with a normal M1 bifurcation. Posterior communicating arteries not visualized consistent with normal variant Normal bilateral vertebral arteries. Normal basilar artery with a normal basilar bifurcation. The visualized bilateral superior cerebellar (SCA) arteries are normal. Normal bilateral P1, P2 and visualized P3 segments of the posterior cerebral arteries. There is no demonstrated aneurysm of the [place] of [place]. There is no demonstrated abnormality of the visualized brain. AORTIC ARCH: Normal visualized aortic arch. Normal origins of the brachiocephalic, left common carotid, and left subclavian arteries. RIGHT CAROTID ARTERIES: Normal right common carotid artery (CCA). Tiny focus of calcific plaque in the right common carotid bulb. Normal origin of the right internal carotid (ICA) artery without a hemodynamically significant stenosis. Normal visualized cervical portion of the right internal carotid artery. Normal origin of the right external carotid artery (ECA). LEFT CAROTID ARTERIES: Normal left common carotid artery (CCA). Normal left common carotid bulb. Normal origin of the left internal carotid (ICA) artery without a hemodynamically significant stenosis. Normal visualized cervical portion of the left internal carotid artery. Normal origin of the left external carotid artery (ECA). VERTEBRAL ARTERIES: Normal bilateral vertebral arteries. CT/STROKE CTA Head AND Neck W/Con IMPRESSION: Minor atherosclerotic disease within the brain and neck. Electronically Signed: Marlon Alex MD at 16:15 EDT ,
[2021-11-30 16:02] LABS: Partial Thromboplast Time 27.9 Seconds (24.1-36.2); Prothrombin Time (Protime)PT. 13.3 SECONDS (11.7-14.9)
[2021-11-30 16:06] LABS: Bedside Glucose 182 mg/dL (74-106)
--- NOTE | 2021-11-30 16:07 | CHAPLAIN ---
Type of Pastoral Visit ___ Initial Visit ___ Follow-up Visit ___ On-call Visit ___ General Patient Visit ___ Spiritual Assessment ___ Family Conference ___ Bereavement _x__ Rapid Response ___ Code Blue ___ Other (describe below) Pastoral Care Referral From ___ Patient ___ Family ___ Nurse ___ Physician ___ Twist Tester ___ Scrap Metal Burner _x__ Other (describe below) Sacrament/Intervention _x__ Active listening ___ Anointing ___ Church ___ Bereavement ___ Communion ___ Radha exploration ___ ___ Life review _x__ Prayer ___ Reconciliation ___ Sacrament of Sick _x__ Supportive presence ___ Wedding ___ Other (describe below) Pastoral Comments came to ED triage for stroke alert; patient was taken to CT scan; met with spouse along with SW to offer support; spouse indicated relationship to episcopalian and post doc fellowship's and therefore open to prayer support; sat with spouse until pt returned to room and readied for online meeting with neurologist; introduced self and role to patient
[2021-11-30 16:10] LABS: Anion Gap 6 (5-15); BUN 23 mg/dL (7-18); BUN/Creat Ratio 19.7 RATIO (10-20); Calcium,Total 9.3 mg/dL (8.5-10.1); Chloride 107 mmol/L (98-107); Creatinine, Serum 1.17 mg/dL (0.70-1.30); EST Glomerular Filtration Rate 68 mL/min (>60); Est Glom Filt Rate - Afr Amer 83 mL/min (>60); Estimated Creatinine Clearance 75.09 ml/min; Glucose 165 mg/dL (74-106); Potassium 3.8 mmol/L (3.5-5.1); Sodium Level 141 mmol/L (136-145); Troponin-I HS 10 pg/mL (3.0-78.0)
[2021-11-30] MEDS: 0.9% Normal Saline 1,000 ML 100 ML IV ×2 (16:23→20:27)
--- NOTE | 2021-11-30 16:23 | HP.PCM.HOS_ITS ---
HPI - General General Date of Admission: 11/30/21 Date of Service: 11/30/21 Chief Complaint: Blurry vision, imbalance, paresthesias R face, R sided weakness HPI Narrative The patient is a 56 y/o M w/ PMHx: Hx Diverticulitis s/p prior partial colectomy, HTN, HLD, Diabetes mellitus type II, Depression and Anxiety, GERD, Former tobacco use, BRITTANY, Parkinson's disease who presents to the [facility] ED on 11/30/21 with history of onset of strokelike symptoms at approximately 1430 with right facial droop, right-sided facial paresthesias as well as right-sided upper and lower extremity paresthesias in addition to weakness with history of underlying chronic weakness secondary to his Parkinson's disease but is never been unilateral but he does report history of COVID illness diagnosed 11/14/21 with mild symptom onset ~ 3 days prior to his testing with history of full vaccination series. He also notes recent issues with his prostate and recent prostatitis with cipro start but he notes having not filled this regimen yet. Work-up in the ED included T17.6, heart rate 90, BP 154/90, respiratory rate 16, 98% on room air with most recent vitals T98.5, heart rate 73, BP 157 heart rate 86, respiratory rate 16, 96% on room air, CBC with WBC 8.2, hemoglobin 15.8, platelet 194 without marked shift, unremarkable coags, BMP with BUN/current 23/1.17, glucose 165, troponin 10, CT brain with no acute intracranial findings, follow-up CTA head and neck with noted minor atherosclerotic disease within the brain and neck, EKG sinus rhythm with no acute evidence of ischemia. Patient initial NIH stroke scale with 1 for level of consciousness, 1 for LOC questions, 1 right upper extremity motor, 2 for right lower extremity motor, 1 sensory, 1 extinction and inattention for a total of 8. ED physician did initiate stroke alert and discussed the case with neurologist from [facility] with initiation of tPA protocol. In the ED patient administered alteplase bolus and normal saline IV fluids. Improved in the ED on evaluation to NIHSS 4. [facility] Medical History (Updated 11/30/21 @ 16:[address] Flavio Concepcion MD) Abdominal pain Borderline type 2 diabetes mellitus Constipation COVID-19 vaccine series completed Depression with anxiety Diverticulitis Former smoker GERD (gastroesophageal reflux disease) Hyperlipidemia Hypertension Sleep apnea Type 2 diabetes mellitus Home Medications aspirin 81 mg chewable tablet 81 mg PO DAILY BLOOD THINNER 05/12/19 [History L ast Taken 02/17/20] cholecalciferol (vitamin D3) 25 mcg (1,000 unit) tablet 2,000 unit PO DAILY SUPP LEMENT 05/12/19 [History Last Taken 02/23/20] melatonin 3 mg tablet 9 mg PO QHS SLEEP 05/12/19 [History Last Taken 02/23/20] paroxetine HCl 30 mg tablet 75 mg PO DAILY DEPRESSION 05/12/19 [History Last Taken 02/23/20] trazodone 100 mg tablet 250 mg PO QHS SLEEP 05/12/19 [History Last Taken 02/23/20] famotidine 20 mg tablet 20 mg PO QHS GERD 02/17/20 [History Last Taken 02/23/20] venlafaxine 150 mg capsule,extended release 24 hr (Effexor XR) 150 mg PO DAILY 10/26/20 [History Last Taken Unknown] carbidopa ER 50 mg-levodopa 200 mg tablet,extended release 1 tab PO TID PARKINSONS 02/16/21 [History Last Taken Unknown] clonazepam 0.5 mg tablet 0.5 mg PO QHS PRN Sleep 02/16/21 [History Last Taken Un known] diltiazem HCl 30 mg tablet 60 mg PO BID BP 02/16/21 [History Last Taken Unknown] hydrochlorothiazide 12.5 mg tablet 12.5 mg PO QAM #90 tabs 02/16/21 [Rx Last Taken Unknown] levodopa 42 mg capsule with inhalation device (Inbrija) 84 mg inhalation BID 02/16/21 [History Last Taken Unknown] prazosin 2 mg capsule 6 mg PO QHS 02/16/21 [History Last Taken Unknown] propranolol 10 mg tablet 10 mg PO ONCE PRN Anxiety 02/16/21 [History Last Taken Unknown] fenofibrate 54 mg tablet 54 mg PO DAILY #90 tabs 07/13/21 [Rx Last Taken Unknown] empagliflozin 10 mg tablet (Jardiance) 0 mg PO DAILY 08/04/21 [History Last Taken Unknown] ondansetron 4 mg disintegrating tablet 4 mg PO Q8H PRN nausea and vomiting #10 tabs 08/04/21 [Rx Last Taken Unknown] pantoprazole 40 mg tablet,delayed release (Protonix) 40 mg PO DAILY #14 tabs 08/04/21 [Rx Last Taken Unknown] ciprofloxacin HCl 500 mg tablet 500 mg PO Q12H 2 weeks #28 tabs 11/30/21 [Rx Last Taken Unknown] Allergy/AdvReac Type Severity Reaction Status Date / Time No Known Allergies Allergy Verified 11/30/21 10:09 Family History Mother Heart disease Hypertension High cholesterol Cancer skin cancer Father Heart disease High cholesterol Hypertension CVA (cerebral vascular accident) Surgical History (Updated 11/30/21 @ 17:[address] Jamee Phillips MD) History of appendectomy History of colectomy (~02/2020) History of laparoscopic cholecystectomy S/P arthroscopic surgery of left knee Social History (Updated 11/30/21 @ 17:[address] Jamee Phillips MD) household members: spouse number of children: 5 current occupational status: unemployed Smoking Status: Former smoker how long ago did patient quit smoking: Quit ~ 15 years prior, smoked socially only. alcohol intake: never substance use type: does not use ROS ROS Narrative Admission Review of Systems: CONSTITUTIONAL: No weight loss, fever, chills, + weakness or fatigue. HEENT: + R facial droop, transient field cut, blurry vision, facial paresthesias. Eyes: No double vision or yellow sclerae. Ears, Nose, Throat: No hearing loss, sneezing, congestion, runny nose or sore throat. SKIN: No rash or itching, lesions, wounds. CARDIOVASCULAR: No chest pain, chest pressure or chest discomfort, palpitations, edema, orthopnea, syncopal events. RESPIRATORY: No shortness of breath, cough or sputum, wheezing, hemoptysis. GASTROINTESTINAL: No anorexia, nausea, vomiting or diarrhea, abdominal pain, melena, BRBPR. GENITOURINARY: + Penile discomfort at tip with weeks insertion, recent prostate discomfort, No dysuria, frequency. NEUROLOGICAL: + R sided facial droop, vision changes transiently, paresthesias, weakness. No headache, dizziness, syncope, paralysis, ataxia, change in bowel or bladder control, seizure. MUSCULOSKELETAL: + muscle, back pain, joint pain or stiffness. HEMATOLOGIC: No anemia, bleeding or bruising. LYMPHATICS: No enlarged nodes. No history of splenectomy. PSYCHIATRIC: + history of depression or anxiety, no SI. ENDOCRINOLOGIC: No reports of sweating, cold or heat intolerance. No polyuria or polydipsia. ALLERGIES: No history of asthma, hives, eczema or rhinitis. Vital Signs Vital Signs Vital Signs: 11/30/21 15:39 11/30/21 15:55 11/30/21 15:55 Temperature 97.6 F L Temperature Source Temporal Pulse Rate 90 84 Respiratory Rate 16 18 Blood Pressure 154/90 H 136/95 H Blood Pressure Mean 111 108 Blood Pressure Source Blood Pressure Position Blood Pressure Location Pulse Ox 98 97 97 Oxygen Delivery Method Room Air Room Air Room Air 11/30/21 15:55 11/30/21 16:09 11/30/21 16:12 Temperature 97.6 F L Temperature Source Temporal Pulse Rate 83 85 Respiratory Rate 18 16 Blood Pressure 172/85 H 172/85 H 172/85 H Blood Pressure Mean 114 114 Blood Pressure Source Blood Pressure Position Blood Pressure Location Pulse Ox 98 97 Oxygen Delivery Method Room Air Room Air 11/30/21 16:12 11/30/21 16:12 Temperature 98.5 F Temperature Source Temporal Temporal Pulse Rate 71 73 Respiratory Rate 16 16 Blood Pressure 157/86 H 157/86 H Blood Pressure Mean 109 109 Blood Pressure Source Monitor Blood Pressure Position Sitting Blood Pressure Location Left Arm Pulse Ox 96 96 Oxygen Delivery Method Room Air Weight Weight: 210 lb 8.663 oz Body Mass Index (BMI) 29.3 Physical Exam Narrative Physical Examination: General: Awake, alert, oriented to self, place however did give initially incorrect month but gave correct year and president, remains cooperative, seated upright in the ED bed, extremely flat affect and does admit to depression and anxiety. Skin: Normal color, normal turgor, no icterus, no cyanosis. HEENT: AT/NC, EOMI, PERRLA, MMM, no carotid bruits or JVD noted, no further field cut noted, correctable very mild right-sided facial nasolabial flattening, speech appropriate. Lungs: CTA bilaterally, moderate effort, mild decrease BL bases, no rales, ronchi or wheezing. Heart: Currently regular rate and rhythm; no gallop, rub audible. Abdomen: Soft, overweight, NTTP, ND, normal BS, no HSM. Extremities: No cyanosis, clubbing, or edema. Neurological: Patient awake, alert, oriented as noted, cognitive function improving, suspect near baseline intact; pupils equally reactive to light and accommodation, cranial nerves grossly normal except still mild residual right- sided nasolabial fold flattening, moving all 4 extremities however still does have a very mild drift right upper extremity and right lower extremity, appropriate [id number] and [id number], equivocal Babinski, sensation still with paresthesias to the right side. Psychiatric: Affect appears extremely flat, does admit that he has been more depressed and anxious over the last 3 weeks but denies suicidal ideation. Results Lab / Micro Data Result Diagrams: 11/30/21 15:45 11/30/21 15:45 Labs: Laboratory Results - last 24 hr 11/30/21 15:43: POC Glucose 182 H 11/30/21 15:45: WBC 8.2, RBC 5.60, Hgb 15.8, Hct 47.8, MCV 85.4, MCH 28.2, MCHC 33.1, RDW Std Deviation 38.6, RDW Coeff of Gail 12.6, Plt Count 194, MPV 9.7, Immature Gran % (Auto) 0.200, Neut % (Auto) 65.0, Lymph % (Auto) 22.1, [place] % (Auto) 9.3, Eos % (Auto) 2.7, Baso % (Auto) 0.7, Absolute Neuts (auto) 5.3, Absolute Lymphs (auto) 1.80, Nucleated RBC % 0 11/30/21 15:45: PT 13.3, INR 1.0, APTT 27.9 11/30/21 15:45: Sodium 141, Potassium 3.8, Chloride 107, Carbon Dioxide 28.0, Anion Gap 6, BUN 23 H, Creatinine 1.17, Estim Creat Clear Calc 75.09, Est GFR (MDRD) Af Amer 83, Est GFR (MDRD) Non-Af 68, BUN/Creatinine Ratio 19.7, Glucose 165 H, Calcium 9.3, Troponin I High Sens [address] 11/30/21 15:43 IMPRESSION: Normal unenhanced CT scan of the brain. N.B. : The above Results were Read Back by Nikhil Jarquin MD to [facility] Concepcion and understanding confirmed on 11/30/2021 15:57:20 (ET). Electronically Signed: Nikhil Jarquin MD at 15:58 EDT , ADDENDUM: 11/30/21 1605 IMPRESSION: Normal unenhanced CT scan of the brain. N.B. : The above Results were Read Back by Nikhil Jarquin MD to Flavio Concepcion and understanding confirmed on 11/30/2021 15:57:20 (ET). Electronically Signed: Nikhil Jarquin MD at 15:58 EDT , Head/Neck CTA 11/30/21 15:52 IMPRESSION: Minor atherosclerotic disease within the brain and neck. Electronically Signed: Marlon Alex MD at 16:15 EDT , Assessment & Plan Assessment/Plan (1) Acute cerebrovascular accident (CVA) due to ischemia: PLAN: Plan The patient is a 56 y/o M w/ PMHx: Hx Diverticulitis s/p prior partial colectomy, HTN, HLD, Diabetes mellitus type II, Depression and Anxiety, GERD, Former tobacco use, BRITTANY, Parkinson's disease who presents to the [facility] ED on 11/30/21 with history of onset of strokelike symptoms at approximately 1430 with right facial droop, right-sided facial paresthesias as well as right-sided upper and lower extremity paresthesias in addition to weakness with history of underlying chronic weakness secondary to his Parkinson's disease but is never been unilateral but he does report history of COVID illness diagnosed 11/14/21 with mild symptom onset ~ 3 days prior to his testing with history of full vaccination series. #1. Acute R sided Weakness/Paresthesias/R facial droop concerning for Acute CVA s/p TPA administration: Will admit to the ICU, TPA administered/initiated in the ED, will plan CT head in 24 hours or if appropriate timing will obtain MRI brain at that time, ECHO, PT/OT/Speech/Nutrition evaluation per protocol, will consult insulation cutter given tPA administration and continue with neurology consultation, will continue permissive hypertension with as needed agents per stroke protocol, resume immediately aspirin therapy once repeat CT head or MRI if appropriate at 24 hours is negative for any intracranial bleeding, initiate on high-dose statin therapy, maintain on fall and aspiration precautions. FLP, magnesium, TSH, HgbA1c. Recent risks also included recent COVID illness. #2. Anxiety and depression, Uncontrolled: From review of records clarifying as patient is listed as being on venlafaxine high-dose in addition to high-dose paroxetine and high-dose trazodone, following clarification we will add appropriate home regimen however we will temporarily hold if an actual home medicine high-dose trazodone given likely sedation in acute setting. Discussed frankly and notes recently 3-4 week history of worsened depression without SI with follow-up therapy this week and next week as well. Strongly encouraged early and aggressive follow-up especially given current acute presentation. #3. Recent prostatitis: We will continue recently initiated ciprofloxacin therapy and encourage continued outpatient follow-up. Weeks in place per protocol given #1. #4. Parkinson's disease: Complicates presentation, maintain on fall precautions, will continue patient home levodopa regimen, therapies consulted as noted. #5. Hypertension: Permissive hypertension with as needed agents per stroke protocol. #6. Hyperlipidemia: FLP in AM. We will continue patient home fenofibrate regimen, initiate on high-dose statin therapy given acute presentation as noted #1 #7. Diabetes mellitus type II with hyperglycemia: Hold oral home regimen, continue home insulin regimen, ADA diet, accu checks w/ ISS. #8. Former tobacco use: Encourage continued tobacco cessation. #9. BRITTANY: CPAP nightly. #10. DVT prophylaxis: SCDs, defer any chemoprophylaxis given tPA administration. Charges/Coding Visit Charges Inpatient E&M: 65761 Init Hosp L3
--- NOTE | 2021-11-30 16:35 | CM.ED ---
SW Note SW responded to stroke alert for patient. SW and [facility] [employer] met with patient's , Guera. SW provided emotional support. SW remains available if further needs arise. Plan: Emotional Support Faiza BAILON
[2021-11-30] MEDS: Lidocaine Jelly 2% 20 ML Syringe (URO-JET) 1 APPLIC TOPICAL (16:59)
--- NOTE | 2021-11-30 17:15 | CM.ED ---
voiced concern regarding the [facility] being notified. SW asked chief unit forester Sarah to advise [facility]. Faiza BAILON
--- NOTE | 2021-11-30 18:30 | RAD_ITS ---
STUDY: X-RAY CHEST REASON FOR EXAM: Male, 56 years old. Neuro deficit, acute, stroke suspected TECHNIQUE: AP portable COMPARISON: 06/06/2020 FINDINGS: The lungs are clear and expanded. There is no demonstrated pleural abnormality. Normal size heart. Normal mediastinum and nandini. Normal visualized pulmonary arteries. Normal visualized aortic arch and descending thoracic aorta. Dorsal spine demonstrates degenerative changes.. Normal visualized ribs, clavicles, and shoulders. There is no demonstrated abnormality of the visualized soft tissue structures of the upper abdomen. RAD/Chest 1 View IMPRESSION: No acute cardiopulmonary pathology. Electronically Signed: Marlon Alex MD at 19:35 EDT ,
--- NOTE | 2021-11-30 18:40 | TELEMED_ITS ---
[facility] Telemed has confirmed receipt of a request for visit. This document confirms receipt of the order initiating the consult. To find the results of the consultation, please view the patient's reports for the scanned Telemed Consult.
--- NOTE | 2021-11-30 18:40 | ECHOD_ITS ---
Reason For Study: CVA Procedure This was a 2D Doppler, Color Flow transthoracic echocardiogram. Exam performed portable in ICU/CCU. Left Ventricle Normal LV size. Left ventricular systolic function is normal. The estimated ejection fraction is 60 %. No regional wall motion abnormalities noted. Right Ventricle Normal RV size. Normal systolic function. Atria Normal left atrium. Normal right atrium. Bubble contrast study negative for right to left interatrial shunt. Mitral Valve Normal mitral valve. Trivial eccentric mitral valve insufficiency. Tricuspid Valve Normal tricuspid valve. Mild tricuspid valve insufficiency. Pulmonary artery systolic pressure is 26 mmHg. Aortic Valve Normal aortic valve. Trisinus/trileaflet aortic valve. Mild (1+) aortic valve insufficiency. Pulmonic Valve Normal pulmonic valve. Great Vessels Normal aortic root. The pulmonary artery is normal size. Normal inferior vena cava. Pericardium/Pleural No pericardial effusion. Medication Performed a rapid injection of agitated mix of 9 cc saline and 1cc air to assess for atrial septal defect. MMode/2D Measurements & Calculations LVIDd: 5.5 cm IVSd: 1.0 cm Ao root diam: 3.3 cm LVIDs: 3.5 cm LVPWd: 0.87 cm RVDd: 4.2 cm FS: 36.6 % LAV(MOD-bp): 58.4 ml LVAd ap4: 42.9 cm2 SV(MOD-sp4): 92.9 ml LAV(MOD-bp) Indexed: 26.5 ml/m2 LVLd ap4: 9.8 cm LAV(MOD-sp2): 55.0 ml EDV(MOD-sp4): 151.2 ml LAV(MOD-sp4): 52.7 ml EDV(sp4-el): 159.5 ml LVAs ap4: 23.1 cm2 LVLs ap4: 7.9 cm ESV(MOD-sp4): 58.3 ml ESV(sp4-el): 57.4 ml EF(MOD-sp4): 61.5 % EF(sp4-el): 64.1 % SV(sp4-el): 102.2 ml LA A4 area: 20.8 cm2 LA dimension(2D): 4.0 cm RA A4 area: 19.6 cm2 Time Measurements MV dec time: 0.21 sec Doppler Measurements & Calculations MV E max david: 70.8 cm/sec Lat Peak E' David: 10.7 cm/sec Med Peak E' David: 8.1 cm/sec MV A max david: 64.7 cm/sec E/E' lat: 6.6 E/E' med: 8.8 MV E/A: 1.1 MV dec slope: 330.5 cm/sec2 Ao V2 max: 134.7 cm/sec AI max david: 356.4 cm/sec Ao max P.3 mmHg AI max P.8 mmHg AI dec slope: 170.5 cm/sec2 AI P1/2t: 612.4 msec LV V1 max: 130.7 cm/sec PA V2 max: 130.4 cm/sec PI end-d david: 66.6 cm/sec LV V1 max P.8 mmHg TR max david: 236.9 cm/sec TR max P.5 mmHg ECHO/Echo Complete Interpretation Summary Normal LV size. Left ventricular systolic function is normal. The estimated ejection fraction is 60 %. Bubble contrast study negative for right to left interatrial shunt. Pulmonary artery systolic pressure is 26 mmHg. Ordering Physician: Jamee Phillips Referring Physician: KEV HAYWARD Performed By: Carolyne Nam RDCS
[2021-11-30 19:00] LABS: Magnesium 2.3 mg/dL (1.6-2.6)
[2021-11-30] MEDS: Acetaminophen 325 MG Tablet 650 MG PO (19:15)
[2021-11-30] MEDS: CARBIDOPA/LEVODOPA CR 50/200 Tablet PO (20:25)
[2021-11-30] MEDS: Pantoprazole Sodium 40 MG Tablet 80 MG PO (20:25)
[2021-11-30] MEDS: Atorvastatin Calcium 80 MG Tablet PO (20:25)
[2021-11-30] MEDS: Famotidine 20 MG Tablet PO (20:26)
[2021-11-30] MEDS: Polyethylene Glycol 3350 17 GM PACKET PO (20:26)
[2021-11-30] MEDS: Ciprofloxacin 500 MG Tablet PO (20:27)
[2021-11-30] MEDS: clonazePAM 0.5 MG Tablet PO (20:54)
[2021-11-30] MEDS: Insulin Lispro 100 UNIT/ML INSULN.PEN SC (20:54)
[2021-11-30 21:16] LABS: Bedside Glucose 198 mg/dL (74-106)
[2021-11-30] MEDS: proCHLORPERazine 10 MG/2 ML Vial 5 MG IV (23:03)
[2021-11-30] MEDS: 0.9% Saline Lock 10 ML Syringe IV (23:03)
[2021-12-01] VITALS (32 sets, daily range): BP systolic 94–157; BP diastolic 49–87; PULSE 51–80; RESP 13–21; TEMP 36.2–36.8; O2SAT 94–99; BMI 31.1
[2021-12-01] MEDS: 0.9% Normal Saline 1,000 ML 100 ML IV (02:00)
[2021-12-01 04:33] LABS: Absolute Lymphocyte Count 1.63 X10^3/uL (0.83-4.51); Absolute Neutrophil Count 3.9 X10^3/uL (2.0-7.7); Basophil# 0.03 X10^3/uL; Basophil% 0.5 % (0-1); Eosinophil# 0.26 X10^3/uL; Hematocrit 45.9 % (40-54); Hemoglobin 15.4 g/dL (13.0-16.5); Lymphocyte # 1.63 X10^3/ul (0.83-4.51); Lymphocyte % 25.1 % (19-41); Mean Corp Hgb Conc 33.6 g/dL (32-36); Mean Corpuscular Hgb 28.4 pg (27.0-32.0); Mean Corpuscular Volume 84.5 fL (80-94); Mean Platelet Vol. 9.7 fl (6.2-12.0); Monocyte# 0.63 X10^3/uL; Monocyte% 9.7 % (0-10); NRBC Flagged by Analyzer 0 % (0-5); Neutrophil # 3.93 X10^3/uL (2.7-7.7); Neutrophil % 60.4 % (47-70); Platelet Count 167 K/mm3 (150-450); RBC Distribution Width CV 12.6 % (11.6-14.6); RBC Distribution Width SD 38.3 fl (35.1-43.9); Red Blood Count 5.43 M/mm3 (4.6-6.2); White Blood Count 6.5 K/mm3 (4.4-11.0)
[2021-12-01 05:57] LABS: ALB/GLOB Ratio 1.1 RATIO (0.9-2.4); AST(SGOT) 14 U/L (15-37); Alanine Aminotransfer ALT/SGPT 12 U/L (16-61); Albumin, Serum 3.5 g/dL (3.2-5.0); Alkaline Phosphatase 49 U/L (45-117); Anion Gap 6 (5-15); BUN 16 mg/dL (7-18); BUN/Creat Ratio 17.5 RATIO (10-20); Calcium,Total 8.5 mg/dL (8.5-10.1); Chloride 109 mmol/L (98-107); Cholesterol 114 mg/dL (200); Creatinine, Serum 0.91 mg/dL (0.70-1.30); EST Glomerular Filtration Rate 91 mL/min (>60); Est Glom Filt Rate - Afr Amer 110 mL/min (>60); Estimated Creatinine Clearance 96.54 ml/min; Globulin 3.3 g/dL (2.2-4.2); Glucose 96 mg/dL (74-106); High Density Lipoprotein 29 mg/dL; Potassium 4.2 mmol/L (3.5-5.1); Protein, Total 6.8 g/dL (6.4-8.2); Sodium Level 142 mmol/L (136-145); Triglycerides 115 mg/dL; Very Low Density Lipoprotein 23 mg/dL (5-40)
--- NOTE | 2021-12-01 06:36 | EX.PCM.CONCC ---
Assessment & Plan Assessment/Plan (1) Acute cerebrovascular accident (CVA) due to ischemia: PLAN: Plan RECOMMENDATIONS: 1. Continue ICU monitoring per tPA protocol. 2. Maintain blood pressure less than 185/105 mmHg. 3. Repeat head imaging early this evening. 4. PT/OT evaluations once cleared from repeat head imaging standpoint. IMPRESSIONS: 1. Acute ischemic CVA status post tPA Continue routine ICU monitoring per tPA protocol. Maintain bedrest until repeat head imaging is completed. Maintain blood pressure less than 185/105 mmHg. PT/OT evaluations once cleared from repeat head imaging standpoint. 2. History of Parkinson's disease/prior CVA/GERD/diabetes mellitus/recent COVID infection Complicates care, management, recovery and prognosis. Continue home medications as indicated. This note was generated with Last.fmation software. It may contain incorrect words, spelling, and punctuation that were not noted in checking the note before signing. HPI Consult Data Date of Consult: 12/01/21 HPI Narrative Reason for Consultation: CVA status post tPA HPI Narrative: The patient is a 56-year-old male, with a history as outlined below, who presented to the emergency department on November 30 with a right facial droop and right-sided paresthesias. The patient reported that he did suffer from a stroke approximately 7 years ago. The patient is a non-smoker. He does have a history of Parkinson's disease, GERD and diabetes mellitus. The patient was recently diagnosed with COVID-19 in mid October 2021, but his illness was rather mild in severity. On presentation to the emergency department, the patient was noted to be afebrile hemodynamically stable. He was maintaining appropriate oxygen saturations on room air. His initial laboratory evaluation was completely unremarkable. Head CT was unremarkable. CTA head and neck showed no significant stenoses or large vessel occlusion. Over concerns for an ischemic CVA, neurology consultation was obtained and the recommendation was to proceed with tPA administration. Accordingly, the patient was admitted to the medical intensive care unit post tPA per protocol. No overnight issues were identified by the nursing staff. The patient's presenting symptoms have all completely resolved. His last NIH score was 0. He is due for repeat head imaging early this evening. [facility] Medical History (Updated 11/30/21 @ 16:[address] Flavio Concepcion MD) Abdominal pain Borderline type 2 diabetes mellitus Constipation COVID-19 vaccine series completed Depression with anxiety Diverticulitis Former smoker GERD (gastroesophageal reflux disease) Hyperlipidemia Hypertension Sleep apnea Type 2 diabetes mellitus Home Medications aspirin 81 mg chewable tablet 81 mg PO DAILY BLOOD THINNER 05/12/19 [History Last Taken 11/30/21] melatonin 3 mg tablet 9 mg PO QHS SLEEP 05/12/19 [History Last Taken 11/29/21] trazodone 100 mg tablet 200 mg PO QHS SLEEP 05/12/19 [History Last Taken 11/29/21] famotidine 20 mg tablet 20 mg PO BID GERD 02/17/20 [History Last Taken 11/30/21] carbidopa ER 50 mg-levodopa 200 mg tablet,extended release 1 tab PO QHS PARKINSONS 02/16/21 [History Last Taken 11/29/21] clonazepam 0.5 mg tablet 0.5 mg PO BID PRN PRN Sleep 02/16/21 [History Last Taken 11/30/21] hydrochlorothiazide 12.5 mg tablet 12.5 mg PO QAM #90 tabs 02/16/21 [Rx Last Taken 11/30/21] levodopa 42 mg capsule with inhalation device (Inbrija) 84 mg inhalation TID 02/16/21 [History Last Taken 11/30/21] propranolol 10 mg tablet 10 mg PO TID 02/16/21 [History Last Taken 11/30/21] carbidopa ER 36.25 mg-levodopa 145 mg capsule,extended release (Rytary) 1 cap PO 4X/DAY 11/30/21 [History Last Taken Unknown] cholecalciferol (vitamin D3) 50 mcg (2,000 unit) tablet 50 mcg PO DAILY supplement 11/30/21 [History Last Taken 11/30/21] diltiazem HCl 60 mg tablet 60 mg PO BID 11/30/21 [History Last Taken 11/30/21] empagliflozin 25 mg tablet (Jardiance) 12.5 mg PO DAILY 11/30/21 [History Last Taken 11/30/21] omega-3 fatty acids 1,000 mg PO DAILY 11/30/21 [History Last Taken 11/30/21] pantoprazole 40 mg tablet,delayed release (Protonix) 80 mg PO BID gerd 11/30/21 [History Last Taken 11/30/21] polyethylene glycol 3350 17 gram oral powder packet 17 g PO QHS 11/30/21 [History Last Taken 11/29/21] prazosin 5 mg capsule 10 mg PO QHS 11/30/21 [History Last Taken 11/29/21] rosuvastatin 20 mg tablet 20 mg PO QHS 11/30/21 [History Last Taken 11/29/21] testosterone cypionate 200 mg/mL intramuscular oil 200 mg IM Q14D 11/30/21 [History Last Taken 1 Week Ago ~11/23/21] Allergy/AdvReac Type Severity Reaction Status Date / Time No Known Allergies Allergy Verified 11/30/21 10:09 Family History Mother Heart disease Hypertension High cholesterol Cancer skin cancer Father Heart disease High cholesterol Hypertension CVA (cerebral vascular accident) Surgical History (Updated 11/30/21 @ 17:[address] Jamee Phillips MD) History of appendectomy History of colectomy (~02/2020) History of laparoscopic cholecystectomy S/P arthroscopic surgery of left knee Social History (Updated 11/30/21 @ 17:[address] Jamee Phillips MD) household members: spouse number of children: 5 current occupational status: unemployed Smoking Status: Former smoker how long ago did patient quit smoking: Quit ~ 15 years prior, smoked socially only. alcohol intake: never substance use type: does not use ROS ROS Narrative 10 systems were reviewed with pertinent positives as noted in the HPI above. Physical Exam Const alert and no apparent distress General Appearance: cooperative HEENT normocephalic, head/scalp atraumatic and moist oral mucous membranes Eyes PERRL, EOMs intact bilaterally and conjunctivae normal Neck supple General: trachea midline Chest inspection of chest normal Resp normal respiratory effort Auscultation: Negative for rales, rhonchi or wheezes Cardio regular rate and regular rhythm GI normal to inspection, nondistended, normoactive bowel sounds Extremity no clubbing, cyanosis or edema Skin no rashes or lesions noted Neuro CN's II-XII intact bilaterally and no focal motor deficits Psych cooperative and affect normal Lab / Micro Data Result Diagrams: 12/01/21 04:20 12/01/21 04:20 Labs: Laboratory Results - last 24 hr 11/30/21 15:43: POC Glucose 182 H 11/30/21 15:45: WBC 8.2, RBC 5.60, Hgb 15.8, Hct 47.8, MCV 85.4, MCH 28.2, MCHC 33.1, RDW Std Deviation 38.6, RDW Coeff of Gail 12.6, Plt Count 194, MPV 9.7, Immature Gran % (Auto) 0.200, Neut % (Auto) 65.0, Lymph % (Auto) 22.1, [place] % (Auto) 9.3, Eos % (Auto) 2.7, Baso % (Auto) 0.7, Absolute Neuts (auto) 5.3, Absolute Lymphs (auto) 1.80, Nucleated RBC % 0 11/30/21 15:45: PT 13.3, INR 1.0, APTT 27.9 11/30/21 15:45: Sodium 141, Potassium 3.8, Chloride 107, Carbon Dioxide 28.0, Anion Gap 6, BUN 23 H, Creatinine 1.17, Estim Creat Clear Calc 75.09, Est GFR (MDRD) Af Amer 83, Est GFR (MDRD) Non-Af 68, BUN/Creatinine Ratio 19.7, Glucose 165 H, Calcium 9.3, Troponin I High Sens 10 11/30/21 15:45: Magnesium 2.3 11/30/21 20:31: POC Glucose 198 H 12/01/21 04:20: WBC 6.5, RBC 5.43, Hgb 15.4, Hct 45.9, MCV 84.5, MCH 28.4, MCHC 33.6, RDW Std Deviation 38.3, RDW Coeff of Gail 12.6, Plt Count 167, MPV 9.7, Immature Gran % (Auto) 0.300, Neut % (Auto) 60.4, Lymph % (Auto) 25.1, [place] % (Auto) 9.7, Eos % (Auto) 4.0, Baso % (Auto) 0.5, Absolute Neuts (auto) 3.9, Absolute Lymphs (auto) 1.63, Nucleated RBC % 0 12/01/21 04:20: Sodium 142, Potassium 4.2, Chloride 109 H, Carbon Dioxide 27.0, Anion Gap 6, BUN 16, Creatinine 0.91, Estim Creat Clear Calc 96.54, Est GFR (MDRD) Af Amer 110, Est GFR (MDRD) Non-Af 91, BUN/Creatinine Ratio 17.5, Glucose 96, Calcium 8.5, Total Bilirubin 0.50, AST 14 L, ALT 12 L, Alkaline Phosphatase 49, Total Protein 6.8, Albumin 3.5, Globulin 3.3, Albumin/Globulin Ratio 1.1, Triglycerides 115, Cholesterol 114, LDL Cholesterol 62, VLDL Cholesterol 23, HDL Cholesterol 29 L, TSH 1.[address] 11/30/21 15:43 IMPRESSION: Normal unenhanced CT scan of the brain. N.B. : The above Results were Read Back by Nikhil Jarquin MD to Flavio Concepcion and understanding confirmed on 11/30/2021 15:57:20 (ET). Electronically Signed: Nikhil Jarquin MD at 15:58 EDT , ADDENDUM: 11/30/21 1605 IMPRESSION: Normal unenhanced CT scan of the brain. N.B. : The above Results were Read Back by Nikhil Jarquin MD to Flavio Concepcion and understanding confirmed on 11/30/2021 15:57:20 (ET). Electronically Signed: Nikhil Jarquin MD at 15:58 EDT , Head/Neck CTA 11/30/21 15:52 IMPRESSION: Minor atherosclerotic disease within the brain and neck. Electronically Signed: Marlon Alex MD at 16:15 EDT , ADDENDUM: 11/30/21 1629 IMPRESSION: Minor atherosclerotic disease within the brain and neck. N.B. : The above Results were Read Back by Marlon Alex MD to Lupe Shin MD, and understanding confirmed on 11/30/2021 16:22:04 (ET). Electronically Signed: Marlon Alex MD at 16:15 EDT , Chest X-Ray 11/30/21 18:30 IMPRESSION: No acute cardiopulmonary pathology. Electronically Signed: Marlon Alex MD at 19:35 EDT , Charges/Coding Visit Charges Inpatient E&M: 66610 Init Hosp L2
[2021-12-01 08:45] LABS: Bedside Glucose 116 mg/dL (74-106)
--- NOTE | 2021-12-01 10:00 | CASEMGMT ---
MONICA BOONE assessment: Face to Face with patient for initial transition planning/care coordination assessment. MONICA BOONE introduced self and role at [facility], pt voices understanding and consents to assessment. Pt is sitting up in bed in no distress on room air. Pt is A/Ox4 and answers all questions appropriately. Pt's is at bedside during assessment.? Pt with flat affect during assessment. Care providers, pharmacy,?and demographics verified. ? Presentation: Pt w/ blurry vision, dizziness, off balance-numbness/tingling to right side of face, right sided weakness Admitting dx: CVA s/p TPA PCP: Chang Lugo [employer]; Liat Dee, PCP at [facility] Specialists: Emre neuro at [facility] Pharmacy: [facility] Insurance: [place]/[facility] Prescription Benefit:[place] Living Will/HPOA: Pt states does not have LW/HPOA and declines AD info. LNOK: Guera Hernández, Living Arrangements: Pt lives with in 1 story home with 1-2 steps in and states no concerns at home. Pt is normally independent with ADL's. Transportation: Pt drives self and states no transporation concerns. DME/HHC: [facility] and states no need for any further DME. Pt states has had HHC [facility] in past but has not been to SNF. Pt states no concerns with going home at time of discharge. Pt is retired. Pt does not smoke cigarettes or drink ETOH. Pt voices no further concerns/needs. CM to follow for therapy notes and any further discharge planning/needs. Advised pt to ask for CM if any further questions/concerns/needs arise, voices understanding. Pt Goal: Home ? Plan: Home, pending therapy evals, repeat MRI. [place] MONICA BOONE
[2021-12-01] MEDS: Famotidine 20 MG Tablet PO ×2 (10:10→21:10)
[2021-12-01] MEDS: Pantoprazole Sodium 40 MG Tablet 80 MG PO ×2 (10:11→21:11)
--- NOTE | 2021-12-01 10:46 | CASEMGMT ---
Social Work SW in to pt room to conduct PHQ9 assessment. Pt resting in bed comfortably. Pt in bedside chair. Pt agreeable to answering questions. Pt shared historical issues with anxiety and depression. During PHQ9 assessment pt answered most questions in affirmative. Total score for assessment was 19/27 which indictes moderately severe depression. SW talked with pt regarding this score. Pt reports self and recently had Covid and pt believes being confined to the home brought on increased level of depression. SW attempted to provide counseling resources. Pt reported resources not needed. Pt shared has psychiatrist and a therapist, both seen bi-weekly through tele-med services with the MD. Pt reported psychiatrist changed meds around 4 weeks ago and pt just recently began to notice a positive effect from the new meds. Pt has appointment set up with therapist and psychiatrist in the next few days. Pt also reported neurologist appointment via video tomorrow. Pt declined this SW calling to arrange/confirm appointments, stated handles these things. recently also applied for a caregiver for pt through MD to help with respite. Pt discussed PTSD. SW reminded pt to implement coping skills learned in therapy and to have marisela and patience with self during this difficult time. Pt appeared understanding. SW provided support to pt and pt . Encouraged both to reach out should other needs/issues/concerns arise. SHAWNA Berumen
--- NOTE | 2021-12-01 14:00 | MRI_ITS ---
STUDY: MRI BRAIN WITHOUT CONTRAST ADMINISTRATION OF 1527 HOURS ON 12/01/2021 REASON FOR EXAM: 56-year-old male. Evaluate for cerebrovascular accident. TECHNIQUE: Standardized multiplanar fat and water weighted pulse sequences were obtained. Sequences were obtained. COMPARISON: None. FINDINGS: Normal size of the ventricles and extra-axial spaces for the patient''s age. Normal white matter tracts of the supratentorial brain. Normal bilateral basal ganglia. Normal thalami. There is no extra-axial fluid accumulation. Normal flow voids within the major intracranial circulation suggesting patency by spin echo criteria. Normal sella turcica, pituitary gland, infundibular stalk, optic chiasm and hypothalamus. Normal tectal plate and pineal gland. Normal midbrain, cristofer and medulla. Normal cerebellum. Normal basal cisterns. Normal bilateral temporal bones. Normal bilateral internal auditory canals. No demonstrated orbital abnormality, within the constraints of a routine brain study. There is opacification of both maxillary sinuses compatible with acute bilateral maxillary sinusitis. Normal calvarium and skull base. Normal visualized soft tissue structures. Normal visualized upper cervical spine. Normal orbits, globes, and optic nerves. There is no evidence of ischemic or hemorrhagic cerebral infarct. No intracranial neoplasms. No abnormal sites of focal demyelination. MRI/Brain without Contrast IMPRESSION: 1. Complete opacification of both maxillary sinuses compatible with a bilateral maxillary sinusitis. 2. No ischemic or hemorrhagic cerebral infarct. 3. No intracranial neoplasms, hemorrhage or hematomas. 4. No abnormal sites of focal demyelination intracranially. 5. Normal orbits, globes and optic nerves. 6. No evidence of other significant abnormalities. Electronically Signed: Leo Millan MD at 18:03 EDT ,
--- NOTE | 2021-12-01 14:39 | PN.HOSP_ITS ---
Subjective Subjective Yesterday afternoon with stroke symptoms including right-sided weakness and right facial droop. Initial NIH was 8. This morning his NIH is 0. He is status post tPA. MRI is scheduled for this afternoon and if negative for hemorrhagic transformation we will start aspirin and Plavix. Patient wanting to get up to go to the bathroom and I informed him that some possible until after he is 24 hours out from his tPA. He voiced understanding. Objective Data Objective Data Vital Signs: Vital Signs Temp Pulse Resp BP Pulse Ox O2 Del Method 98.2 F 68 13 123/79 H 97 Room Air 12/01/21 12:02 12/01/21 12:02 12/01/21 12:02 12/01/21 12:02 12/01/21 12:02 12/01/21 12:02 Oxygen Delivery Method Room Air Weight: 101.4 kg Body Mass Index (BMI) 31.1 Intake & Output: Intake and Output for Last 24 Hours 11/29/21 11/30/21 12/01/21 23:59 23:59 23:59 Intake Total 1052.4 / 1052.4 1196.67 / 1196.67 Output Total 1200 / 1400 2675 / 2675 Balance -147.6 / -347.6 -1478.33 / -1478.33 Lab / Micro Data Result Diagrams: 12/01/21 04:20 12/01/21 04:20 Labs: Laboratory Results - last 24 hr 11/30/21 15:43: POC Glucose 182 H 11/30/21 15:45: WBC 8.2, RBC 5.60, Hgb 15.8, Hct 47.8, MCV 85.4, MCH 28.2, MCHC 33.1, RDW Std Deviation 38.6, RDW Coeff of Gail 12.6, Plt Count 194, MPV 9.7, Imm ature Gran % (Auto) 0.200, Neut % (Auto) 65.0, Lymph % (Auto) 22.1, [place] % (Auto) 9.3, Eos % (Auto) 2.7, Baso % (Auto) 0.7, Absolute Neuts (auto) 5.3, Absolute Lymphs (auto) 1.80, Nucleated RBC % 0 11/30/21 15:45: PT 13.3, INR 1.0, APTT 27.9 11/30/21 15:45: Sodium 141, Potassium 3.8, Chloride 107, Carbon Dioxide 28.0, Anion Gap 6, BUN 23 H, Creatinine 1.17, Estim Creat Clear Calc 75.09, Est GFR (MDRD) Af Amer 83, Est GFR (MDRD) Non-Af 68, BUN/Creatinine Ratio 19.7, Glucose 165 H, Calcium 9.3, Troponin I High Sens 10 11/30/21 15:45: Magnesium 2.3 11/30/21 20:31: POC Glucose 198 H 12/01/21 04:20: WBC 6.5, RBC 5.43, Hgb 15.4, Hct 45.9, MCV 84.5, MCH 28.4, MCHC 33.6, RDW Std Deviation 38.3, RDW Coeff of Gail 12.6, Plt Count 167, MPV 9.7, Immature Gran % (Auto) 0.300, Neut % (Auto) 60.4, Lymph % (Auto) 25.1, [place] % (Auto) 9.7, Eos % (Auto) 4.0, Baso % (Auto) 0.5, Absolute Neuts (auto) 3.9, Absolute Lymphs (auto) 1.63, Nucleated RBC % 0 12/01/21 04:20: Sodium 142, Potassium 4.2, Chloride 109 H, Carbon Dioxide 27.0, Anion Gap 6, BUN 16, Creatinine 0.91, Estim Creat Clear Calc 96.54, Est GFR (MDRD) Af Amer 110, Est GFR (MDRD) Non-Af 91, BUN/Creatinine Ratio 17.5, Glucose 96, Calcium 8.5, Total Bilirubin 0.50, AST 14 L, ALT 12 L, Alkaline Phosphatase 49, Total Protein 6.8, Albumin 3.5, Globulin 3.3, Albumin/Globulin Ratio 1.1, Triglycerides 115, Cholesterol 114, LDL Cholesterol 62, VLDL Cholesterol 23, HDL Cholesterol 29 L, TSH 1.40 12/01/21 04:20: Hemoglobin A1c 6.0 H 12/01/21 08:22: POC Glucose 116 H Radiography Diagnostic Testing: Radiology Impression Brain CT 11/30/21 15:43 IMPRESSION: Normal unenhanced CT scan of the brain. N.B. : The above Results were Read Back by Nikhil Jarquin MD to Flavio Concepcion and understanding confirmed on 11/30/2021 15:57:20 (ET). Electronically Signed: Nikhil Jarquin MD at 15:58 EDT , ADDENDUM: 11/30/21 1605 IMPRESSION: Normal unenhanced CT scan of the brain. N.B. : The above Results were Read Back by Nikhil Jarquin MD to Flavio Concepcion and understanding confirmed on 11/30/2021 15:57:20 (ET). Electronically Signed: Nikhil Jarquin MD at 15:58 EDT , Head/Neck CTA 11/30/21 15:52 IMPRESSION: Minor atherosclerotic disease within the brain and neck. Electronically Signed: Marlon Alex MD at 16:15 EDT , ADDENDUM: 11/30/21 1629 IMPRESSION: Minor atherosclerotic disease within the brain and neck. N.B. : The above Results were Read Back by Marlon Alex MD to Lupe Shin MD, and understanding confirmed on 11/30/2021 16:22:04 (ET). Electronically Signed: Marlon Alex MD at 16:15 EDT , Chest X-Ray 11/30/21 18:30 IMPRESSION: No acute cardiopulmonary pathology. Electronically Signed: Marlon Alex MD at 19:35 EDT , Echocardiogram 11/30/21 18:40 Interpretation Summary Normal LV size. Left ventricular systolic function is normal. The estimated ejection fraction is 60 %. Bubble contrast study negative for right to left interatrial shunt. Pulmonary artery systolic pressure is 26 mmHg. Ordering Physician: Jamee Phillips Referring Physician: KEV HAYWARD Performed By: Carolyne Nam RDCS Physical Exam Const alert, oriented x3, no apparent distress and well nourished Constitutional Narrative: Obese, middle-aged white male sitting up in bed, appears comfortable nontoxic, nursing at bedside HEENT head/scalp atraumatic and moist oral mucous membranes HEENT Narrative: Mallampati 2-3, dentition is good, no thrush Eyes PERRL and EOMs intact bilaterally Resp normal respiratory effort, no retractions, no use of accessory muscles and clear to auscultation bilaterally Auscultation: Negative for crackles, rales, rhonchi or wheezes Cardio regular rate, regular rhythm, S1 normal heart sound, S2 normal heart sound, no murmurs, no rub, no gallops, no clicks and no JVD GI normal to inspection, nondistended, normoactive bowel sounds, soft to palpation and non-tender Extremity no clubbing, cyanosis or edema Extremity Narrative: 2+ pedal pulses Neuro oriented x3, CN's II-XII intact bilaterally, moves all extremities and no focal motor deficits Neuro Narrative: Reflexes are 2+ Speech: speech normal Motor Exam: strength 5/5 throughout Psych Psych Narrative: Affect is flat Assessment & Plan Assessment/Plan (1) Acute cerebrovascular accident (CVA) due to ischemia: PLAN: Plan Acute stroke -Presented with right-sided weakness/paresthesia/right facial droop -Status post tPA yesterday afternoon -MRI pending for this afternoon -If MRI negative for hemorrhagic transformation we will start aspirin 81 mg and Plavix 75 mg daily -Continue rosuvastatin 20 mg at at bedtime -Total cholesterol 114/LDL 62/HDL 29 -Antihypertensives on hold to allow for permissive hypertension following stroke -Pressure has been well controlled status post tPA -Hemoglobin A1c is 6 -CTA of the head and neck showed minor atherosclerotic disease in the brain and neck without any significant stenosis or occlusion -Echocardiogram shows EF of 60% with negative bubble study and pulmonary systolic pressure 26 mmHg -No arrhythmias on telemetry -Will need event monitor at discharge -PT/OT consultation -SOC consultation Hypertension -Allow for permissive hypertension at this time and antihypertensives are held -We will likely restart antihypertensive the next 24 hours -Is on prazosin/propranolol/HCTZ/diltiazem at baseline Recent prostatitis -Davis removed per patient request -Continue home ciprofloxacin -Outpatient follow-up as directed prior to admission Hyperlipidemia -Continue home statin -Lipids appear well controlled Parkinson's disease -PT/OT consultation DM-2 -Home antihyperglycemic's on hold -Continue SSI -Carb controlled diet -Accu-Cheks as ordered -DM-2 well-controlled with a hemoglobin A1c of 6.1 BRITTANY -Continue CPAP nightly Anxiety/depression -Restart medications at discharge -Outpatient follow-up History of tobacco abuse -Continue to encourage ongoing cessation DVT prophylaxis -SCDs -We will start chemoprophylaxis tomorrow if not able to discharge and no hemorr hagic transformation on MRI CODE STATUS Full code -Continue home medication regimen Charges/Coding Visit Charges Inpatient E&M: 26353 Subs Hosp L2
[2021-12-01] MEDS: 0.9% Saline Lock 10 ML Syringe IV (14:50)
[2021-12-01] MEDS: LORazepam 2 MG/ML Syringe 1 MG IV (14:50)
[2021-12-01 15:30] LABS: Bedside Glucose 112 mg/dL (74-106)
[2021-12-01 19:46] LABS: Bedside Glucose 105 mg/dL (74-106)
[2021-12-01] MEDS: Clopidogrel Bisulfate 75 MG Tablet PO (21:10)
[2021-12-01] MEDS: Aspirin 81 MG TAB.CHEW PO (21:10)
[2021-12-01] MEDS: Atorvastatin Calcium 80 MG Tablet PO (21:10)
[2021-12-01] MEDS: traZODone 100 MG Tablet 200 MG PO ×2 (21:11)
[2021-12-01] MEDS: clonazePAM 0.5 MG Tablet PO (21:13)
[2021-12-01] MEDS: CARBIDOPA/LEVODOPA CR 50/200 Tablet PO (21:14)
[2021-12-01] MEDS: Polyethylene Glycol 3350 17 GM PACKET PO (21:14)
[2021-12-01 21:31] LABS: Bedside Glucose 110 mg/dL (74-106)
[2021-12-02] VITALS (10 sets, daily range): BP systolic 97–127; BP diastolic 52–75; PULSE 54–69; RESP 11–19; TEMP 36.2–36.6; O2SAT 95–98
[2021-12-02] MEDS: Aspirin 81 MG TAB.CHEW PO (09:33)
[2021-12-02] MEDS: Famotidine 20 MG Tablet PO (09:33)
[2021-12-02] MEDS: Pantoprazole Sodium 40 MG Tablet 80 MG PO (09:33)
[2021-12-02] MEDS: FLU VACC QS2022-23(6MOS UP)/PF 60 MCG/0.5 ML SYRINGE IM (09:33)
[2021-12-02] MEDS: Clopidogrel Bisulfate 75 MG Tablet PO (09:33)
--- NOTE | 2021-12-02 10:08 | PN.CC_ITS ---
Assessment & Plan Assessment/Plan (1) Acute cerebrovascular accident (CVA) due to ischemia: PLAN: Plan RECOMMENDATIONS: 1. Aspirin and Plavix per neurology recommendations. 2. PT/OT evaluations. 3. The patient is medically stable for transfer out of the intensive care unit. Will sign off from a critical care perspective. IMPRESSIONS: 1. Acute ischemic CVA status post tPA MRI brain, per radiology, demonstrated no evidence of acute infarction. However, there is discrepancy in the interpretation, as the neurologist felt tsewart t the MRI demonstrated evidence of an acute midbrain lacunar infarction on diffusion-weighted imaging. 2. History of Parkinson's disease/prior CVA/GERD/diabetes mellitus/recent COVID infection Complicates care, management, recovery and prognosis. Continue home medications as indicated. This note was generated with [employer] dictation software. It may contain incorrect words, spelling, and punctuation that were not noted in checking the note before signing. Subjective Subjective The patient was seen and examined at the bedside this morning. Events from the last 24 hours have been reviewed. The patient is currently afebrile, hemodynamically stable and maintaining appropriate oxygen saturations on room air. MRI brain completed yesterday demonstrated no evidence of infarction, per radiology. However, neurologist reported a right midbrain lacunar infarct on diffusion-weighted imaging. Objective Data Objective Data The patient's most recent lab work, culture data and imaging studies have all been personally reviewed. Vital Signs: Vital Signs Temp Pulse Resp BP Pulse Ox O2 Del Method 97.8 F 67 14 118/74 96 Room Air 12/02/21 09:25 12/02/21 09:25 12/02/21 09:25 12/02/21 09:25 12/02/21 09:25 12/02/21 09:25 Oxygen Delivery Method Room Air Weight: 221 lb 1.978 oz Body Mass Index (BMI) 31.1 Intake & Output: Intake and Output for Last 24 Hours 11/30/21 12/01/21 12/02/21 23:59 23:59 23:59 Intake Total 1052.4 / 1052.4 1796.67 / 1796.67 0 / 0 Output Total 1200 / 1400 3125 / 3125 700 / 700 Balance -147.6 / -347.6 -1328.33 / -1328.33 -700 / -700 Lab / Micro Data Attestation: I reviewed the patient's lab results. Result Diagrams: 12/01/21 04:20 12/01/21 04:20 Labs: Laboratory Results - last 24 hr 12/01/21 11:38: POC Glucose 112 H 12/01/21 16:44: POC Glucose 105 12/01/21 21:08: POC Glucose 110 H Radiography Diagnostic Testing: Radiology Impression Echocardiogram 11/30/21 18:40 Interpretation Summary Normal LV size. Left ventricular systolic function is normal. The estimated ejection fraction is 60 %. Bubble contrast study negative for right to left interatrial shunt. Pulmonary artery systolic pressure is 26 mmHg. Ordering Physician: Jamee Phillips Referring Physician: KEV HAYWARD Performed By: Carolyne Nam RDCS Brain MRI 12/01/21 14:00 IMPRESSION: 1. Complete opacification of both maxillary sinuses compatible with a bilateral maxillary sinusitis. 2. No ischemic or hemorrhagic cerebral infarct. 3. No intracranial neoplasms, hemorrhage or hematomas. 4. No abnormal sites of focal demyelination intracranially. 5. Normal orbits, globes and optic nerves. 6. No evidence of other significant abnormalities. Electronically Signed: Leo Millan MD at 18:03 EDT , Physical Exam Const alert and no apparent distress General Appearance: cooperative HEENT normocephalic, head/scalp atraumatic and moist oral mucous membranes Eyes PERRL, EOMs intact bilaterally and conjunctivae normal Neck supple General: trachea midline Chest inspection of chest normal Resp normal respiratory effort Auscultation: Negative for rales, rhonchi or wheezes Cardio regular rate and regular rhythm GI normal to inspection, nondistended, normoactive bowel sounds Extremity no clubbing, cyanosis or edema Skin no rashes or lesions noted Neuro CN's II-XII intact bilaterally and no focal motor deficits Psych cooperative and affect normal Charges/Coding Visit Charges Inpatient E&M: 45010 Subs Hosp L2
--- NOTE | 2021-12-02 10:40 | PCM.DC.SUM ---
Providers Date of Admission: 11/30/21 Date of Discharge: 12/02/21 Primary Care Physician: ARGENTINA Carroll Consultations 11/30/21 16:02 Consult: Core Driller Helper / Pulmonary Medicine Routine Consulting Provider: Pulmonary Medicine eduardo Henrietta Reason for Consult: stroke for alteplase EMERGENT Consult: Yes MD Notified: Yes Date Notified: 11/30/21 Time Notified: 17:45 Method of Notification: Text Comments:: If admitted, Hospitalist will consult Core Driller Helper 11/30/21 18:40 Consult: Core Driller Helper / Pulmonary Medicine Routine Consulting Provider: Gamal French Reason for Consult: stroke for alteplase EMERGENT Consult: No MD Notified: Yes Date Notified: 11/30/21 Time Notified: 16:59 Method of Notification: Text Reason For Visit: CVA S/P TPA Diagnosis Discharge Diagnosis (1) Acute cerebrovascular accident (CVA) due to ischemia: Status: Acute Code(s): I63.9 - Cerebral infarction, unspecified Medications at Discharge Home Medications aspirin 81 mg chewable tablet 81 mg PO DAILY BLOOD THINNER 05/12/19 melatonin 3 mg tablet 9 mg PO QHS SLEEP 05/12/19 trazodone 100 mg tablet 200 mg PO QHS SLEEP 05/12/19 famotidine 20 mg tablet 20 mg PO BID GERD 02/17/20 carbidopa ER 50 mg-levodopa 200 mg tablet,extended release 1 tab PO QHS PARKINSONS 02/16/21 clonazepam 0.5 mg tablet 0.5 mg PO BID PRN PRN Sleep 02/16/21 hydrochlorothiazide 12.5 mg tablet 12.5 mg PO QAM #90 tabs 02/16/21 levodopa 42 mg capsule with inhalation device (Inbrija) 84 mg inhalation TID 02/16/21 propranolol 10 mg tablet 10 mg PO TID 02/16/21 carbidopa ER 36.25 mg-levodopa 145 mg capsule,extended release (Rytary) 1 cap PO 4X/DAY 11/30/21 cholecalciferol (vitamin D3) 50 mcg (2,000 unit) tablet 50 mcg PO DAILY supplement 11/30/21 diltiazem HCl 60 mg tablet 60 mg PO BID 11/30/21 empagliflozin 25 mg tablet (Jardiance) 12.5 mg PO DAILY 11/30/21 omega-3 fatty acids 1,000 mg PO DAILY 11/30/21 pantoprazole 40 mg tablet,delayed release (Protonix) 80 mg PO BID gerd 11/30/21 polyethylene glycol 3350 17 gram oral powder packet 17 g PO QHS 11/30/21 prazosin 5 mg capsule 10 mg PO QHS 11/30/21 rosuvastatin 20 mg tablet 20 mg PO QHS 11/30/21 testosterone cypionate 200 mg/mL intramuscular oil 200 mg IM Q14D 11/30/21 clopidogrel 75 mg tablet 75 mg PO DAILY #21 tabs 12/02/21 Hospital Course Operations None Procedures 2-D Echocardiogram and - (CT head/CTA head and neck/MRI brain) Summary of Care Provided Minutes Spent on Discharge: 38 Hospital Course: Mr. Hernández is a 56-year-old white male who presented to the emergency department on 11/30/2021 with complaints of right-sided paresthesias and right facial droop that started approximately 1430 on that afternoon. He did report a history of underlying weakness due to Parkinson's disease. He admitted to a recent COVID-19 infection on 11/14/2021 and had mild symptoms at onset. Work-up in the ED included T17.6, heart rate 90, BP 154/90, respiratory rate 16, 98% on room air with most recent vitals T98.5, heart rate 73, BP 157 heart rate 86, respiratory rate 16, 96% on room air, CBC with WBC 8.2, hemoglobin 15.8, platelet 194 without marked shift, unremarkable coags, BMP with BUN/current 23/1.17, glucose 165, troponin 10, CT brain with no acute intracranial findings, follow-up CTA head and neck with noted minor atherosclerotic disease within the brain and neck, EKG sinus rhythm with no acute evidence of ischemia. His initial NIH was 8. The ED physician did initiate stroke alert and discussed the case with neurologist from [facility] with initiation of tPA protocol.? In the ED tPA was initiated and normal saline IV fluids were given. Repeat NIH after the initiation of tPA showed improvement to a 4. He was admitted to the ICU with stroke protocol. Echocardiogram was performed and showed an EF of 60% with normal LV function and a negative bubble study, pulmonary artery systolic pressure was 26 mmHg. At 24 hours after tPA initiation an MRI was performed and per discussion with neurology they noted a right midbrain lacunar infarct in the cristofer on diffusion-weighted imaging with no hemorrhagic transformation. The MRI report here read by the radiologist reported no acute abnormalities. I have discussed this with radiology and they will review the imaging. His blood pressure medication were held on admission to allow for some permissive hypertension but as needed's were ordered to maintain him in appropriate range status post tPA. He was maintained on his hyperlipidemia medication and total cholesterol was 114/LDL 62/HDL 29. TSH was found to be normal at 1.4. Hemoglobin A1c was 6.0 indicating good glycemic control. Given no hemorrhagic transformation on his MRI aspirin and Plavix were started on the evening of 12/01/2021. He was maintained on his cholesterol medication as noted above. Physical and Occupational Therapy saw the patient and indicated the patient did not demonstrate any need for ongoing skilled therapy at discharge. A prescription for Plavix 75 mg daily x21 days per neurology recommendation was initiated and a prescription was sent to his pharmacy. He is to be maintained on his antihypertensives as well as his medications for hyperlipidemia. Neurology also recommended a hypercoagulable panel be done in the next 1 to 2 weeks but deferred this to outpatient as he had tPA and this would affect results if done at the time of admission. I have discussed this with the patient and placed in his discharge summary to request this from either his primary care physician or his neurologist. He has an established neurologist in [place] and is working on follow-up with her soon. I also recommend follow-up with his primary care physician within the next 1 to 2 weeks. A 30-day event monitor has been ordered and will be initiated after discharge. He was discharged home in stable condition on 12/02/2021. Discharge diagnoses: Right midbrain/cristofer lacunar infarct Hypertension Hyperlipidemia Recent prostatitis [id number] Parkinson's disease BRITTANY Anxiety Depression History of tobacco abuse Physical Exam Const alert, oriented x3, no apparent distress and well nourished Constitutional Narrative: Obese, middle-aged white male sitting up in a chair at the bedside, appears comfortable, nontoxic, General Appearance: cooperative, comfortable, well kempt and well developed Orientation / Consciousness: awake, oriented to person, oriented to place and oriented to time Exam Limitations: no limitations Nutritional Appearance: overweight HEENT normocephalic, head/scalp atraumatic, hearing grossly normal bilaterally and moist oral mucous membranes HEENT Narrative: Mallampati 3, no thrush, dentition is good Eyes PERRL, EOMs intact bilaterally and conjunctivae normal Eyes Narrative: No scleral icterus Neck no lymphadenopathy, supple, no JVD and no carotid bruits Neck Narrative: Trachea midline, no thyroid enlargement Resp normal respiratory effort, no retractions, no use of accessory muscles and clear to auscultation bilaterally Auscultation: Negative for crackles, rales, rhonchi or wheezes Cardio regular rate, regular rhythm, S1 normal heart sound, S2 normal heart sound, no murmurs, no rub, no gallops, no clicks and no JVD GI normal to inspection, nondistended, normoactive bowel sounds, soft to palpation and non-tender Extremity no clubbing, cyanosis or edema Extremity Narrative: 2+ pedal pulses Skin no rashes or lesions noted, no wounds, skin turgor normal and no jaundice Neuro oriented x3, CN's II-XII intact bilaterally, moves all extremities and no focal motor deficits Neuro Narrative: Reflexes are 2+ Speech: speech normal Motor Exam: strength 5/5 throughout Psych Psych Narrative: Affect is flat Weight / BMI Weight Weight: 100.3 kg Body Mass Index (BMI) 31.1 ABG / Lab / Microbiology Data Result Diagrams: 12/01/21 04:20 12/01/21 04:20 Laboratory: Laboratory Results - last 24 hr 12/01/21 11:38: POC Glucose 112 H 12/01/21 16:44: POC Glucose 105 12/01/21 21:08: POC Glucose 110 H Radiography Diagnostic Testing: Radiology Impression Echocardiogram 11/30/21 18:40 Interpretation Summary Normal LV size. Left ventricular systolic function is normal. The estimated ejection fraction is 60 %. Bubble contrast study negative for right to left interatrial shunt. Pulmonary artery systolic pressure is 26 mmHg. Ordering Physician: Jamee Phillips Referring Physician: KEV LUGO Performed By: Carolyne Nam RDCS Brain MRI 12/01/21 14:00 IMPRESSION: 1. Complete opacification of both maxillary sinuses compatible with a bilateral maxillary sinusitis. 2. No ischemic or hemorrhagic cerebral infarct. 3. No intracranial neoplasms, hemorrhage or hematomas. 4. No abnormal sites of focal demyelination intracranially. 5. Normal orbits, globes and optic nerves. 6. No evidence of other significant abnormalities. Electronically Signed: Leo Millan MD at 18:03 EDT , D/C Instructions Discharge Diet: Low fat / Low cholesterol and 1800 Calorie Control Diet Discharge Activity: Return to Normal Activity Return to work on: 12/06/21 Meaningful Use Info Meaningful Use Diagnoses (Choose all that apply): Ischemic CVA CVA Therapy Assessed for PT,OT and/or ST?: Yes Ischemic Stroke Antithrombotic order at d/c?: Yes Dx of Atrial fib/flutter?: No Anticoagulant at discharge?: No Reason anticoagulant not ordered: Treatment not Indicated Statins at discharge?: Yes Primary Dx Acute Ischemic CVA?: Yes IV tPA ordered during stay?: Yes Discharge Plan Admission Admit Date/Time: 11/30/21 16:34 Primary Reason for Your Visit: Stroke Attending Provider: Leonora Dunbar Primary Care Provider: Kev Lugo NP Consulting Providers: Gamal French ; Frankie Smith ; Manjinder Mcnally ; Rory Garcia ; Ana Lilia Whitaker NP ; Jamee Phillips Instructions Additional Instructions / Restrictions: 1. Neurology recommended hypercoagulable panel be performed in a week or 2 after discharge for accuracy as you were given tPA during her hospitalization and that can affect results. Ask primary care physician or neurologist for this test Discharge Orders/Prescriptions Prescriptions: New clopidogrel 75 mg Tablet 75 mg PO DAILY Qty: 21 0RF Continued Inbrija 42 mg capsule, w/inhalation device 84 mg inhalation TID clonazepam 0.5 mg tablet 0.5 mg PO BID PRN PRN (Reason: Sleep) propranolol 10 mg tablet 10 mg PO TID hydrochlorothiazide 12.5 mg tablet 12.5 mg PO QAM Qty: 90 1RF melatonin 3 MG tablet 9 mg PO QHS trazodone 100 MG tablet 200 mg PO QHS aspirin 81 MG tablet,chewable 81 mg PO DAILY famotidine 20 MG tablet 20 mg PO BID carbidopa-levodopa 50-200 mg tablet extended release 1 tab PO QHS polyethylene glycol 3350 17 gram Powder In Packet 17 g PO QHS prazosin 5 mg Capsule 10 mg PO QHS testosterone cypionate 200 mg/mL Oil 200 mg IM Q14D diltiazem HCl 60 mg Tablet 60 mg PO BID omega-3 fatty acids Capsule 1,000 mg PO DAILY rosuvastatin 20 mg Tablet 20 mg PO QHS cholecalciferol (vitamin D3) 50 mcg (2,000 unit) Tablet 50 mcg PO DAILY Jardiance 25 mg Tablet 12.5 mg PO DAILY Rytary 36.25-145 mg Capsule, Extended Release 1 cap PO 4X/DAY Rx Instructions: divide evenly over waking hours pantoprazole [Protonix] 40 mg tablet,delayed release (DR/EC) 80 mg PO BID Other Ambulatory Orders: 30 Day Event Recorder Preventi (Urgent) Timeframe: 1 Day Facility: [facility] - Location: Cardiovascular Services Ordered By: Dr. Leonora Dunbar Referrals / Follow Up: Temi Bustamante, PharmD, BCPS, BCPP [Other] (Follow up for ) Israel Luciano MD [Non-Staff] - None (no need to f/u with above--> f/u with your neurologist within 1 month) eKv Lugo ROOM INSPECTOR, ROOM INSPECTOR-C [Primary Care Provider] - Disposition Disposition (needs filled in before D/C Order can be placed): Home, Self Care Charges/Coding Visit Charges Inpatient E&M: 89876 Disch Hosp
== END 2021-12-02 11:00 | disposition home or self-care (01) | DRG 62 ==
LOC: ED 16:32 → ICU 16:48
PROVIDERS: Admitting Provider Family Medicine; Emergency Provider Emergency Medicine; PCP Nurse Practitioner Family; Visit Provider Internal Medicine
DX: I63.81 Other cerebral infarction due to occlusion or stenosis of small artery (principal); G81.91 Hemiplegia, unspecified affecting right dominant side; G20 Parkinson's disease; E11.65 Type 2 diabetes mellitus with hyperglycemia; I10 Essential (primary) hypertension; G47.33 Obstructive sleep apnea (adult) (pediatric); K21.9 Gastro-esophageal reflux disease without esophagitis; F41.8 Other specified anxiety disorders; H53.8 Other visual disturbances; E78.5 Hyperlipidemia, unspecified; Z79.85 Long-term (current) use of injectable non-insulin antidiabetic drugs; Z87.891 Personal history of nicotine dependence; Z79.82 Long term (current) use of aspirin; Z86.16 Personal history of COVID-19; Z23 Encounter for immunization; Z79.899 Other long term (current) drug therapy; R29.708 NIHSS score 8; R29.810 Facial weakness; N41.9 Inflammatory disease of prostate, unspecified
CPT/HCPCS: 51702; 70450; 70496; 70498; 70551; 71045; 80048; 80053; 80061; 82962; 83036; 83735; 84443; 84484; 85025; 85610; 85730; 92523; 92526; 92610; 93005; 93306; 97161; 97166; 99285; J2997; J7030; Q9967; 90686; A4216

== ENCOUNTER → 2021-11-30 | Outpatient (CLI) | payer MEDICARE, SELFPAY ==
[2021-11-30 10:40] LABS: Bacteria 0 SEEN /hpf (None Seen); Mucous, Urine 0 SEEN /hpf (<or=2+); Red Blood Cells-Urine 0 SEEN /hpf (0-5); Squamous Epithelial Cells - UA 0 SEEN /hpf (0-5); White Blood Cells 0 SEEN /hpf (0-5)
[2021-11-30 12:26] LABS: Color, Urine Yellow (Yellow); Glucose, Dipstick 1000 mg/dl (Normal); Ketone-Dipstick 5 mg/dl (Negative); Leukocyte Esterase-Dipstick Negative /ul (Negative); Nitrite-Dipstick Negative (Negative); Occult Blood-Urine Negative /ul (Negative); Protein-Dipstick Negative (Negative); Urine Bilirubin Dipstick Negative (Negative); Urine Clarity Clear (Clear); Urine Urobilinogen Normal (Normal); Urine pH 6.5 (5.0 - 8.0)
== END | disposition home or self-care (01) ==
LOC: LABSPEC 10:40
PROVIDERS: PCP Nurse Practitioner Family; Referring Provider Physician Assistant; Visit Provider Physician Assistant
DX: R35.0 Frequency of micturition (principal)
CPT/HCPCS: 81001; 87086

== ENCOUNTER → 2022-01-05 | Outpatient (CLI) | payer MEDICARE, SELFPAY ==
[2022-01-05 12:11] LABS: Absolute Lymphocyte Count 1.37 X10^3/uL (0.83-4.51); Absolute Neutrophil Count 4.3 X10^3/uL (2.0-7.7); Basophil# 0.03 X10^3/uL; Basophil% 0.5 % (0-1); Eosinophil# 0.13 X10^3/uL; Hematocrit 46.5 % (40-54); Hemoglobin 16.1 g/dL (13.0-16.5); Lymphocyte # 1.37 X10^3/ul (0.83-4.51); Lymphocyte % 21.3 % (19-41); Mean Corp Hgb Conc 34.6 g/dL (32-36); Mean Corpuscular Hgb 29.3 pg (27.0-32.0); Mean Corpuscular Volume 84.5 fL (80-94); Mean Platelet Vol. 9.8 fl (6.2-12.0); Monocyte# 0.61 X10^3/uL; Monocyte% 9.5 % (0-10); NRBC Flagged by Analyzer 0 % (0-5); Neutrophil # 4.28 X10^3/uL (2.7-7.7); Neutrophil % 66.4 % (47-70); Platelet Count 140 K/mm3 (150-450); RBC Distribution Width CV 13.2 % (11.6-14.6); RBC Distribution Width SD 39.9 fl (35.1-43.9); White Blood Count 6.4 K/mm3 (4.4-11.0)
[2022-01-05 13:10] LABS: ALB/GLOB Ratio 1.2 RATIO (0.9-2.4); AST(SGOT) 26 U/L (15-37); Alanine Aminotransfer ALT/SGPT 42 U/L (16-61); Albumin, Serum 4.2 g/dL (3.2-5.0); Alkaline Phosphatase 54 U/L (45-117); Anion Gap 9 (5-15); BUN 21 mg/dL (7-18); Calcium,Total 8.8 mg/dL (8.5-10.1); Chloride 103 mmol/L (98-107); Cholesterol 149 mg/dL (200); EST Glomerular Filtration Rate 82 mL/min (>60); Est Glom Filt Rate - Afr Amer 100 mL/min (>60); Globulin 3.6 g/dL (2.2-4.2); Glucose 101 mg/dL (74-106); High Density Lipoprotein 33 mg/dL; Potassium 3.6 mmol/L (3.5-5.1); Protein, Total 7.8 g/dL (6.4-8.2); Sodium Level 138 mmol/L (136-145); Triglycerides 137 mg/dL; Very Low Density Lipoprotein 27 mg/dL (5-40)
[2022-01-05 13:23] LABS: Homocysteine 9.4 umol/L (3.2-10.7)
[2022-01-12 08:09] LABS: Dilute Prothrombin Time (dPT) 45.1 sec (0.0-47.6); Dilute Russell Viper Venom 47.6 sec (0.0-47.0); Factor VIII Activity 112 % (56-140); PTT-LA 35.8 sec (0.0-51.9); Protein C Antigen 97 % (60-150); Protein S, Free 95 % (61-136); Thrombin Time 18.8 sec (0.0-23.0); dPT Confirm Ratio 1.21 Ratio (0.00-1.34)
[2022-01-12 16:43] LABS: Anti-Cardiolipin Ab, IgA, Qn < 9 APL U/mL (0-11); Anti-Cardiolipin Ab, IgG, Qn < 9 GPL U/mL (0-14); Anti-Cardiolipin Ab, IgM, Qn < 9 MPL U/mL (0-12); Anti-Thrombin 3 AG, Immunol 85 % (72-124); Antithrombin 3 Function 95 % (75-135); Beta-2-Glycoprotein I IgA <9 (0-25); Beta-2-Glycoprotein I IgG <9 (0-20); Beta-2-Glycoprotein I IgM <9 (0-32); Interpretation Comment: (.); Protein S, Total 96 % (60-150)
== END | disposition home or self-care (01) ==
PROVIDERS: PCP Nurse Practitioner Family; Referring Provider Physician Assistant; Visit Provider Physician Assistant
DX: I63.9 Cerebral infarction, unspecified (principal)
CPT/HCPCS: 36415; 80053; 80061; 81240; 81241; 83090; 85025; 85240; 85245; 85300; 85301; 85302; 85305; 85306; 86146; 86147

== ENCOUNTER 2022-01-14 14:27 | Emergency (ER) | payer OTHER, SELFPAY ==
[2022-01-14 14:28] VITALS: BP 140/89; PULSE 70; RESP 14; TEMP 36.2; O2SAT 97; BMI 31.5
--- NOTE | 2022-01-14 14:43 | CT_ITS ---
INDICATION: Abdominal pain. EXAMINATION: CT ABDOMEN AND PELVIS WITH CONTRAST - CT Abdomen And Pelvis W/ Contrast Injection TECHNIQUE: Helically acquired images were obtained of the abdomen and pelvis following IV contrast. A radiation dose optimization technique was used for this scan. IV Contrast dosage and agent: 100 mL of Isovue 370 Oral contrast: None. COMPARISON: August 04, 2021. FINDINGS: LOWER CHEST: Lung bases are clear. No cardiomegaly or pericardial effusion. LIVER: Homogeneous. No focal mass. GALLBLADDER AND BILIARY TREE: Status post cholecystectomy. Mild prominence of the CBD without filling defect. PANCREAS: No focal cystic or solid mass. SPLEEN: Normal size without focal cystic or solid mass. ADRENAL GLANDS: No nodules. KIDNEYS AND URETERS: Normal renal size and position. No hydronephrosis. Normal ureters. PERITONEUM: No ascites or free air. No other fluid collection. BOWEL: Normal stomach. There is distended fluid filled loops of small bowel predominantly in the left abdomen. This gradually tapering into a more normal diameter distal small bowel. No transition point or evidence of obstruction. Sigmoid and descending diverticuli without acute inflammatory change. There is a surgical anastomosis in the rectosigmoid region. The proximal colon is unremarkable. Appendix is not identified. LYMPH NODES: Normal VESSELS: Aorta is non-dilated. Normal IVC. URINARY BLADDER: Unremarkable. REPRODUCTIVE ORGANS: Normal prostate. ABDOMINAL WALL: No discrete abdominal or pelvic wall hernia. BONES: Degenerative changes of the lumbar spine. No fracture or dislocation. No lytic or blastic lesions. CT/Abdomen/Pelvis W IV Cont ONLY IMPRESSION: 1. Mildly distended proximal small bowel. This gradually tapers in a more normal distal small bowel. No evidence of obstruction. 2. Colonic diverticulosis without acute inflammatory change. Again seen are surgical clips in the rectosigmoid region. 3. No evidence of renal, ureteral or urinary bladder abnormality. 4. Otherwise stable findings. Electronically Signed: Chad Edouard DO at 17:47 EST Reading Location ID and State: [facility] / [place] Tel [phone], Service support ,
--- NOTE | 2022-01-14 14:46 | EDS_ITS ---
HPI <ARGENTINA Wiseman - Last Filed: 01/14/22 18:23> History of Present Illness Chief Complaint: Abd Pain Narrative Narrative: 56-year-old male with history of diverticulitis, TIA hypertension lipidemia, GERD presents the emergency department with 3 days of left lower quadrant pain. Patient called his PCP, due to his history of diverticulitis they placed him on Augmentin. Patient has taken 2 doses. Today, patient states the pain is much worse, he also developed black tarry stools. Patient is concerned and is here for evaluation. He denies any other fevers or chills today however did state to have them yesterday. Denies any nausea or vomiting however Monday he did have them 2 days ago. Denies any bright red blood. PFSH <ARGENTINA Wiseman - Last Filed: 01/14/22 18:23> [facility] Medical History Abdominal pain Acute cerebrovascular accident (CVA) due to ischemia Borderline type 2 diabetes mellitus Constipation COVID-19 vaccine series completed Depression with anxiety Diverticulitis Former smoker GERD (gastroesophageal reflux disease) Hyperlipidemia Hypertension Sleep apnea Type 2 diabetes mellitus Home Medications aspirin 81 mg chewable tablet 81 mg PO DAILY BLOOD THINNER 05/12/19 [History Last Taken 11/30/21] melatonin 3 mg tablet 9 mg PO QHS SLEEP 05/12/19 [History Last Taken 11/29/21] trazodone 100 mg tablet 200 mg PO QHS SLEEP 05/12/19 [History Last Taken 11/29/21] famotidine 20 mg tablet 20 mg PO BID GERD 02/17/20 [History Last Taken 11/30/21] carbidopa ER 50 mg-levodopa 200 mg tablet,extended release 1 tab PO QHS [place] 02/16/21 [History Last Taken 11/29/21] clonazepam 0.5 mg tablet 0.5 mg PO BID PRN PRN Sleep 02/16/21 [History Last Taken 11/30/21] hydrochlorothiazide 12.5 mg tablet 12.5 mg PO QAM #90 tabs 02/16/21 [Rx Last Taken 11/30/21] levodopa 42 mg capsule with inhalation device (Inbrija) 84 mg inhalation TID 02/16/21 [History Last Taken 11/30/21] propranolol 10 mg tablet 10 mg PO TID 02/16/21 [History Last Taken 11/30/21] carbidopa ER 36.25 mg-levodopa 145 mg capsule,extended release (Rytary) 1 cap PO 4X/DAY 11/30/21 [History Last Taken Unknown] cholecalciferol (vitamin D3) 50 mcg (2,000 unit) tablet 50 mcg PO DAILY supplement 11/30/21 [History Last Taken 11/30/21] diltiazem HCl 60 mg tablet 60 mg PO BID 11/30/21 [History Last Taken 11/30/21] empagliflozin 25 mg tablet (Jardiance) 12.5 mg PO DAILY 11/30/21 [History Last Taken 11/30/21] omega-3 fatty acids 1,000 mg PO DAILY 11/30/21 [History Last Taken 11/30/21] pantoprazole 40 mg tablet,delayed release (Protonix) 80 mg PO BID gerd 11/30/21 [History Last Taken 11/30/21] polyethylene glycol 3350 17 gram oral powder packet 17 g PO QHS 11/30/21 [History Last Taken 11/29/21] prazosin 5 mg capsule 10 mg PO QHS 11/30/21 [History Last Taken 11/29/21] rosuvastatin 20 mg tablet 20 mg PO QHS 11/30/21 [History Last Taken 11/29/21] testosterone cypionate 200 mg/mL intramuscular oil 200 mg IM Q14D 11/30/21 [History Last Taken 1 Week Ago ~11/23/21] clopidogrel 75 mg tablet 75 mg PO DAILY #21 tabs 12/02/21 [Rx Last Taken Unknown] amoxicillin 875 mg-potassium clavulanate 125 mg tablet 1 tab PO BID #20 tabs 01/13/22 [Rx Last Taken Unknown] ondansetron 4 mg disintegrating tablet 4 mg PO Q8H PRN nausea and vomiting #30 tabs 01/13/22 [Rx Last Taken Unknown] dicyclomine 20 mg tablet 20 mg PO BID #20 tabs 01/14/22 [Rx Last Taken Unknown] Allergy/AdvReac Type Severity Reaction Status Date / Time No Known Allergies Allergy Verified 01/14/22 14:28 Family History Mother Heart disease Hypertension High cholesterol Cancer skin cancer Father Heart disease High cholesterol Hypertension CVA (cerebral vascular accident) Surgical History History of appendectomy History of colectomy (~02/2020) History of laparoscopic cholecystectomy S/P arthroscopic surgery of left knee Social History household members: spouse number of children: 5 current occupational status: unemployed Smoking Status: Former smoker how long ago did patient quit smoking: Quit ~ 15 years prior, smoked socially only. alcohol intake: never substance use type: does not use ROS <ARGENTINA Wiseman - Last Filed: 01/14/22 18:23> ROS ED ROS Narrative Constitutional: Negative for weight loss, weakness. Positive fever and chills Eyes: Negative for vision loss, vision change, double vision ENT: Negative for any sore throat, ear pain, congestion Cardiovascular: Negative for any chest pain, tightness, palpitations Respiratory: Negative for any cough, sputum production, hemoptysis, dyspnea, dyspnea on exertion, orthopnea Gastrointestinal: Negative for any diarrhea, constipation, blood in vomit. Positive for abdominal, nausea and vomiting, positive blood in stool : Negative for any urinary frequency, dysuria, retention, blood in urine Muscle skeletal: Negative for any muscle joint pain, stiffness, myalgias, arthralgias, neck pain, back pain Neurological: Negative for any headache, syncope, numbness or tingling, dizziness Skin: Negative for any rashes, lumps, itching, abrasions, lacerations Psychiatric: Negative for any depression, anxiety, stress, suicidal ideation, homicidal ideation Hematologic: Negative for any easy bruising, excessive bruising, easy bleeding Allergies: Negative for any eczema, hives, rash EXAM <ARGENTINA Wiseman - Last Filed: 01/14/22 18:23> Physical Exam Narrative Exam Narrative: Vital signs reviewed. HEET: Head normocephalic atraumatic, TMs clear bilaterally. Posterior pharynx is clear, moist mucous membranes. Nares clear bilaterally. Neck: Supple with no lymphadenopathy or tenderness. No signs of meningismus, negative jolt sign. Cardiac: Regular rate and rhythm no murmurs gallops or rubs, equal peripheral pulses bilaterally. Respiratory: Lungs clear to auscultation bilaterally. No chest tenderness. Abdomen: Soft, nondistended. No abdominal bruit or pulsatile masses. No hepatosplenomegaly. Pain to the left lower quadrant mid abdomen Extremities: No peripheral edema, no signs of gross trauma or deformity. Active full range of motion of all extremities. Neuro: Cranial nerves II through XII intact, no focal neurological deficits. Skin: Clean dry and intact with no rash, purpura, petechiae, vesicles or pustules. Backs/flank: No CVA tenderness, no midline spinal tenderness, no deformity. Psych: Normal mood and affect. No SI, HI or acute psychosis. rectal: Rectal exam was completed with female nurse intern retail. There was no active bleeding. Patient had minimal stool in the rectal vault however the tip I appear to have some dark stool. This will be sent. Const Vital Signs: 01/14/22 14:28 01/14/22 17:09 Temperature 97.1 F L Temperature Source Temporal Pulse Rate 70 62 Respiratory Rate 14 Blood Pressure 140/89 H 132/67 H Blood Pressure Mean 106 88 Pulse Ox 97 96 Oxygen Delivery Method Room Air Room Air <Dr. Bib Beavers DO - Last Filed: 01/16/22 10:17> Physical Exam Const Vital Signs: 01/14/22 14:28 01/14/22 17:09 Temperature 97.1 F L Temperature Source Temporal Pulse Rate 70 62 Respiratory Rate 14 Blood Pressure 140/89 H 132/67 H Blood Pressure Mean 106 88 Pulse Ox 97 96 Oxygen Delivery Method Room Air Room Air [facility] <ARGENTINA Wiseman - Last Filed: 01/14/22 18:23> [facility] Lab Data Labs: Laboratory Results - last 24 hr 01/14/22 01/14/22 01/14/22 15:00 15:10 15:10 WBC 6.5 RBC 5.79 Hgb 16.7 H Hct 49.2 MCV 85.0 MCH 28.8 MCHC 33.9 RDW Std Deviation 39.5 RDW Coeff of Gail 13.0 Plt Count 144 L MPV 10.1 Immature Gran % (Auto) 0.200 Neut % (Auto) 68.1 Lymph % (Auto) 14.9 L Josephine % (Auto) 15.7 H Eos % (Auto) 0.8 Baso % (Auto) 0.3 Absolute Neuts (auto) 4.4 Absolute Lymphs (auto) 0.97 Nucleated RBC % 0 PT 14.0 INR 1.1 Sodium Potassium Chloride Carbon Dioxide Anion Gap BUN Creatinine Estim Creat Clear Calc Est GFR (MDRD) Af Amer Est GFR (MDRD) Non-Af BUN/Creatinine Ratio Glucose Lactic Acid 0.7 Calcium Total Bilirubin AST ALT Alkaline Phosphatase Total Protein Albumin Globulin Albumin/Globulin Ratio Lipase Urine Color Urine Clarity Urine pH Ur Specific [place] Urine Protein Urine Glucose (UA) Urine Ketones Urine Occult Blood Urine Nitrite Urine Bilirubin Urine Urobilinogen Ur Leukocyte Esterase Urine RBC Urine WBC Ur Squamous Epith Cells Urine Bacteria Urine Mucus 01/14/22 01/14/22 15:10 15:10 WBC RBC Hgb Hct MCV MCH MCHC RDW Std Deviation RDW Coeff of Gail Plt Count MPV Immature Gran % (Auto) Neut % (Auto) Lymph % (Auto) Josephine % (Auto) Eos % (Auto) Baso % (Auto) Absolute Neuts (auto) Absolute Lymphs (auto) Nucleated RBC % PT INR Sodium 137 Potassium 3.6 Chloride 102 Carbon Dioxide 27.0 Anion Gap 8 BUN 21 H Creatinine 1.09 Estim Creat Clear Calc 80.60 Est GFR (MDRD) Af Amer 90 Est GFR (MDRD) Non-Af 74 BUN/Creatinine Ratio 19.3 Glucose 116 H Lactic Acid Calcium 9.0 Total Bilirubin 0.90 AST 28 ALT 51 Alkaline Phosphatase 51 Total Protein 7.8 Albumin 4.3 Globulin 3.5 Albumin/Globulin Ratio 1.2 Lipase 72 L Urine Color Straw Urine Clarity Clear Urine pH 6.0 Ur Specific [place] 1.015 Urine Protein Negative Urine Glucose (UA) 1000 H Urine Ketones 5 H Urine Occult Blood 10 H Urine Nitrite Negative Urine Bilirubin Negative Urine Urobilinogen Normal Ur Leukocyte Esterase Negative Urine RBC 0 SEEN Urine WBC 0 SEEN Ur Squamous Epith Cells 0 SEEN Urine Bacteria 0 SEEN Urine Mucus 0 SEEN Radiography Diagnostic Testing: Clinical Impression(s) from Imaging Studies Abdomen/Pelvis CT 01/14/22 14:43 IMPRESSION: 1. Mildly distended proximal small bowel. This gradually tapers in a more normal distal small bowel. No evidence of obstruction. 2. Colonic diverticulosis without acute inflammatory change. Again seen are surgical clips in the rectosigmoid region. 3. No evidence of renal, ureteral or urinary bladder abnormality. 4. Otherwise stable findings. Electronically Signed: Chad Edouard DO at 17:47 EST Reading Location ID and State: [address] [place] [address] Tel [phone], Service support , Treatment and Re-Evaluation Narrative: Patient appears well, patient appears nontoxic, vital signs are stable. Patient presents to the emergency department with ongoing abdominal pain to the left lower quadrant, mid abdomen, started on Augmentin for diverticulitis. Patient did have a full abdominal work-up concerning for any bowel obstruction, abscess formation. Patient's laboratory studies show a normal CBC, patient's chemistries were unremarkable lipase was negative. Patient's PT/INR is within normal limits. Patient's stool occult was negative. Patient did receive IV fluids, IV Zofran, IV morphine. Patient states this did decrease his painful symptoms and he felt much better. Patient did receive a CT scan of the abdomen pelvis with IV contrast, this showed a mildly distended proximal small bowel, this gradually tapers in a more normal distal small bowel. No evidence of obstruction. Colonic diverticulosis without acute inflammatory change again seen are surgical clips in the rectosigmoid region. No evidence of renal, ureteral or urinary bladder abnormality. I did speak with the patient, he is feeling well enough for discharge. He will continue his Augmentin, he will be placed on Bentyl, he has nausea medicine at home. He is given return precautions. Patient stable for discharge. <Dr. Bib Beavers, DO - Last Filed: 01/16/22 10:17> [facility] Narrative Medical decision making narrative: Attending note: Patient seen and evaluated with certified surgical technician. I perform my own [id number] evaluation. I agree with the plan of work-up. Left side to lower quadrant abdominal pain for 2 days. Fever yesterday. Normal bowel movements. Black stools. Denies Pepto-Bismol or iron. History of diverticulitis in the past had partial colectomy previously with reanastomosis followed by Dr. Chavez. PCP started Augmentin yesterday. Pain was increasing today reported going into the suprapubic region. Denies urinary symptoms. Exam mild tenderness left lower quadrant, is no guarding or rebound. Work-up initiated due to his history of diverticulitis and worsening pain. CT scan with no acute process. Patient clinically feeling better. Discharged with outpatient follow-up. Lab Data Attestation: I reviewed the patient's lab results. Labs: Laboratory Results - last 24 hr 01/14/22 01/14/22 01/14/22 15:00 15:10 15:10 WBC 6.5 RBC 5.79 Hgb 16.7 H Hct 49.2 MCV 85.0 MCH 28.8 MCHC 33.9 RDW Std Deviation 39.5 RDW Coeff of Gail 13.0 Plt Count 144 L MPV 10.1 Immature Gran % (Auto) 0.200 Neut % (Auto) 68.1 Lymph % (Auto) 14.9 L Josephine % (Auto) 15.7 H Eos % (Auto) 0.8 Baso % (Auto) 0.3 Absolute Neuts (auto) 4.4 Absolute Lymphs (auto) 0.97 Nucleated RBC % 0 PT 14.0 INR 1.1 Sodium Potassium Chloride Carbon Dioxide Anion Gap BUN Creatinine Estim Creat Clear Calc Est GFR (MDRD) Af Amer Est GFR (MDRD) Non-Af BUN/Creatinine Ratio Glucose Lactic Acid 0.7 Calcium Total Bilirubin AST ALT Alkaline Phosphatase Total Protein Albumin Globulin Albumin/Globulin Ratio Lipase Urine Color Urine Clarity Urine pH Ur Specific [place] Urine Protein Urine Glucose (UA) Urine Ketones Urine Occult Blood Urine Nitrite Urine Bilirubin Urine Urobilinogen Ur Leukocyte Esterase Urine RBC Urine WBC Ur Squamous Epith Cells Urine Bacteria Urine Mucus 01/14/22 01/14/22 15:10 15:10 WBC RBC Hgb Hct MCV MCH MCHC RDW Std Deviation RDW Coeff of Gail Plt Count MPV Immature Gran % (Auto) Neut % (Auto) Lymph % (Auto) Josephine % (Auto) Eos % (Auto) Baso % (Auto) Absolute Neuts (auto) Absolute Lymphs (auto) Nucleated RBC % PT INR Sodium 137 Potassium 3.6 Chloride 102 Carbon Dioxide 27.0 Anion Gap 8 BUN 21 H Creatinine 1.09 Estim Creat Clear Calc 80.60 Est GFR (MDRD) Af Amer 90 Est GFR (MDRD) Non-Af 74 BUN/Creatinine Ratio 19.3 Glucose 116 H Lactic Acid Calcium 9.0 Total Bilirubin 0.90 AST 28 ALT 51 Alkaline Phosphatase 51 Total Protein 7.8 Albumin 4.3 Globulin 3.5 Albumin/Globulin Ratio 1.2 Lipase 72 L Urine Color Straw Urine Clarity Clear Urine pH 6.0 Ur Specific [place] 1.015 Urine Protein Negative Urine Glucose (UA) 1000 H Urine Ketones 5 H Urine Occult Blood 10 H Urine Nitrite Negative Urine Bilirubin Negative Urine Urobilinogen Normal Ur Leukocyte Esterase Negative Urine RBC 0 SEEN Urine WBC 0 SEEN Ur Squamous Epith Cells 0 SEEN Urine Bacteria 0 SEEN Urine Mucus 0 SEEN Radiography Diagnostic Testing: Clinical Impression(s) from Imaging Studies Abdomen/Pelvis CT 01/14/22 14:43 IMPRESSION: 1. Mildly distended proximal small bowel. This gradually tapers in a more normal distal small bowel. No evidence of obstruction. 2. Colonic diverticulosis without acute inflammatory change. Again seen are surgical clips in the rectosigmoid region. 3. No evidence of renal, ureteral or urinary bladder abnormality. 4. Otherwise stable findings. Electronically Signed: Chad Edouard DO at 17:47 EST Reading Location ID and State: [facility] / [place] Tel [phone], Service support , Discharge Plan Triage Chief Complaint: Abd Pain ED Midlevel Provider: Adi Nevarez ED Provider: Bib Beavers Dx/Rx/DC Orders Clinical Impression: Abdominal pain, Diverticulitis Instructions: Abdominal Pain Prescriptions: New dicyclomine 20 mg tablet 20 mg PO BID Qty: 20 0RF No Action Inbrija 42 mg capsule, w/inhalation device 84 mg inhalation TID clonazepam 0.5 mg tablet 0.5 mg PO BID PRN PRN (Reason: Sleep) propranolol 10 mg tablet 10 mg PO TID hydrochlorothiazide 12.5 mg tablet 12.5 mg PO QAM Qty: 90 1RF ondansetron 4 mg tablet,disintegrating 4 mg PO Q8H PRN (Reason: nausea and vomiting) Qty: 30 0RF amoxicillin-pot clavulanate 875-125 mg tablet 1 tab PO BID Qty: 20 0RF melatonin 3 MG tablet 9 mg PO QHS trazodone 100 MG tablet 200 mg PO QHS aspirin 81 MG tablet,chewable 81 mg PO DAILY famotidine 20 MG tablet 20 mg PO BID carbidopa-levodopa 50-200 mg tablet extended release 1 tab PO QHS polyethylene glycol 3350 17 gram Powder In Packet 17 g PO QHS prazosin 5 mg Capsule 10 mg PO QHS testosterone cypionate 200 mg/mL Oil 200 mg IM Q14D diltiazem HCl 60 mg Tablet 60 mg PO BID omega-3 fatty acids Capsule 1,000 mg PO DAILY rosuvastatin 20 mg Tablet 20 mg PO QHS cholecalciferol (vitamin D3) 50 mcg (2,000 unit) Tablet 50 mcg PO DAILY Jardiance 25 mg Tablet 12.5 mg PO DAILY Rytary 36.25-145 mg Capsule, Extended Release 1 cap PO 4X/DAY Rx Instructions: divide evenly over waking hours pantoprazole [Protonix] 40 mg tablet,delayed release (DR/EC) 80 mg PO BID clopidogrel 75 mg Tablet 75 mg PO DAILY Qty: 21 0RF Primary Care Provider: Chang Lugo NP Referrals: Chang Lugo NP, [employer]ATOR[employer] [Primary Care Provider] - Activity Restrictions/Additional Instructions: Please follow-up. Continue Augmentin until finished. Disposition Disposition: Home, Self Care Discharge Date/Time: 01/14/22 18:31
[2022-01-14] MEDS: 0.9% Normal Saline 1,000 ML 1000 ML IV (15:20)
[2022-01-14] MEDS: Ondansetron 4 MG/2 ML Vial IV (15:33)
[2022-01-14 15:34] LABS: Bacteria 0 SEEN /hpf (None Seen); Mucous, Urine 0 SEEN /hpf (<or=2+); Red Blood Cells-Urine 0 SEEN /hpf (0-5); Squamous Epithelial Cells - UA 0 SEEN /hpf (0-5); White Blood Cells 0 SEEN /hpf (0-5)
[2022-01-14] MEDS: Morphine 4 MG/ML Syringe IV (15:34)
[2022-01-14 15:37] LABS: Color, Urine Straw (Yellow); Glucose, Dipstick 1000 mg/dl (Normal); Ketone-Dipstick 5 mg/dl (Negative); Leukocyte Esterase-Dipstick Negative /ul (Negative); Nitrite-Dipstick Negative (Negative); Occult Blood-Urine 10 /ul (Negative); Protein-Dipstick Negative (Negative); Specific Gravity, Urine 1.015 (1.002-1.030); Urine Bilirubin Dipstick Negative (Negative); Urine Clarity Clear (Clear); Urine Urobilinogen Normal (Normal)
[2022-01-14 15:38] LABS: Absolute Lymphocyte Count 0.97 X10^3/uL (0.83-4.51); Absolute Neutrophil Count 4.4 X10^3/uL (2.0-7.7); Basophil# 0.02 X10^3/uL; Basophil% 0.3 % (0-1); Eosinophil# 0.05 X10^3/uL; Eosinophils% 0.8 % (0-5); Hematocrit 49.2 % (40-54); Hemoglobin 16.7 g/dL (13.0-16.5); Lymphocyte # 0.97 X10^3/ul (0.83-4.51); Lymphocyte % 14.9 % (19-41); Mean Corp Hgb Conc 33.9 g/dL (32-36); Mean Corpuscular Hgb 28.8 pg (27.0-32.0); Mean Platelet Vol. 10.1 fl (6.2-12.0); Monocyte# 1.02 X10^3/uL; Monocyte% 15.7 % (0-10); NRBC Flagged by Analyzer 0 % (0-5); Neutrophil # 4.44 X10^3/uL (2.7-7.7); Neutrophil % 68.1 % (47-70); Platelet Count 144 K/mm3 (150-450); RBC Distribution Width SD 39.5 fl (35.1-43.9); Red Blood Count 5.79 M/mm3 (4.6-6.2); White Blood Count 6.5 K/mm3 (4.4-11.0)
[2022-01-14 15:46] LABS: International Normalized Ratio 1.1
[2022-01-14 15:59] LABS: ALB/GLOB Ratio 1.2 RATIO (0.9-2.4); AST(SGOT) 28 U/L (15-37); Alanine Aminotransfer ALT/SGPT 51 U/L (16-61); Albumin, Serum 4.3 g/dL (3.2-5.0); Alkaline Phosphatase 51 U/L (45-117); Anion Gap 8 (5-15); BUN 21 mg/dL (7-18); BUN/Creat Ratio 19.3 RATIO (10-20); Chloride 102 mmol/L (98-107); Creatinine, Serum 1.09 mg/dL (0.70-1.30); EST Glomerular Filtration Rate 74 mL/min (>60); Est Glom Filt Rate - Afr Amer 90 mL/min (>60); Globulin 3.5 g/dL (2.2-4.2); Glucose 116 mg/dL (74-106); Lipase 72 U/L (73-393); Potassium 3.6 mmol/L (3.5-5.1); Protein, Total 7.8 g/dL (6.4-8.2); Sodium Level 137 mmol/L (136-145)
[2022-01-14 16:03] LABS: Lactic Acid 0.7 mmol/L (0.4-1.9)
[2022-01-14 17:09] VITALS: BP 132/67; PULSE 62; O2SAT 96
[2022-01-14 18:31] VITALS: BP 126/73; PULSE 88; RESP 15; O2SAT 99
== END 2022-01-14 18:31 | disposition home or self-care (01) ==
PROVIDERS: Nurse Practitioner; Emergency Provider Emergency Medicine; PCP Nurse Practitioner Family; Visit Provider Emergency Medicine
DX: K57.92 Diverticulitis of intestine, part unspecified, without perforation or abscess without bleeding (principal); E11.9 Type 2 diabetes mellitus without complications; I10 Essential (primary) hypertension; Z87.891 Personal history of nicotine dependence; E78.5 Hyperlipidemia, unspecified; Z86.73 Personal history of transient ischemic attack (TIA), and cerebral infarction without residual deficits; F32.9 Major depressive disorder, single episode, unspecified; F41.9 Anxiety disorder, unspecified; Z79.899 Other long term (current) drug therapy; Z79.82 Long term (current) use of aspirin; Z79.84 Long term (current) use of oral hypoglycemic drugs; R19.7 Diarrhea, unspecified
CPT/HCPCS: 74177; 80053; 81001; 82274; 83605; 83690; 85025; 85610; 87506; 96361; 96374; 96375; 99283; Q9967; J2405

== ENCOUNTER → 2022-01-31 | Outpatient (CLI) | payer MEDICARE, SELFPAY ==
[2022-02-03 14:08] LABS: Dilute Prothrombin Time (dPT) 40.6 sec (0.0-47.6); Dilute Russell Viper Venom 44.7 sec (0.0-47.0); PTT-LA 35.7 sec (0.0-51.9); Thrombin Time 20.3 sec (0.0-23.0); dPT Confirm Ratio 1.12 Ratio (0.00-1.34)
[2022-02-03 14:57] LABS: Interpretation Comment: (.)
== END | disposition home or self-care (01) ==
PROVIDERS: PCP Nurse Practitioner Family; Referring Provider Physician Assistant; Visit Provider Physician Assistant
DX: Z86.73 Personal history of transient ischemic attack (TIA), and cerebral infarction without residual deficits (principal)
CPT/HCPCS: 36415

== ENCOUNTER 2022-03-24 09:17 | Emergency (ER) | payer OTHER, SELFPAY ==
[2022-03-24 09:18] VITALS: BP 157/89; PULSE 70; RESP 15; TEMP 36.2; O2SAT 96; BMI 32.5
--- NOTE | 2022-03-24 09:38 | RAD_ITS ---
STUDY: X-RAY CHEST REASON FOR EXAM: Male, 56 years old. Chest pain TECHNIQUE: PA and lateral views of the chest. COMPARISON: Comparison is made with prior study dated 11/30/2021. FINDINGS: EKG electrodes are seen. The lungs are clear and expanded. There is no demonstrated pleural abnormality. Normal size heart. Normal mediastinum and nandini. Normal visualized pulmonary arteries. Normal visualized aortic arch and descending thoracic aorta. There are diffuse degenerative changes of the visualized thoracic spine. Normal visualized ribs, clavicles, and shoulders. There is no demonstrated abnormality of the visualized soft tissue structures of the upper abdomen. RAD/Chest PA and Lateral IMPRESSION: Normal x-ray examination of the chest. Electronically Signed: Nikhil Jarquin MD at 10:19 [facility] ,
--- NOTE | 2022-03-24 09:45 | EKG12_ITS ---
Test Reason : Blood Pressure : / mmHG Vent. Rate : 068 BPM Atrial Rate : 068 BPM P-R Int : 186 ms QRS Dur : 086 ms QT Int : 394 ms P-R-T Axes : 044 -13 040 degrees QTc Int : 418 ms Normal sinus rhythm Normal ECG Confirmed by SELMA REDD, STEVE ([id number]), deputy editor in chief AUBREE MIXON ([id number]) on 03/28/2022 9:11:29 AM Referred By: THOMAS Confirmed By:STEVE HAHN MD
[2022-03-24 09:47] LABS: Absolute Lymphocyte Count 1.67 X10^3/uL (0.83-4.51); Absolute Neutrophil Count 4.3 X10^3/uL (2.0-7.7); Basophil# 0.04 X10^3/uL; Basophil% 0.6 % (0-1); Eosinophil# 0.18 X10^3/uL; Eosinophils% 2.6 % (0-5); Hematocrit 48.3 % (40-54); Hemoglobin 16.2 g/dL (13.0-16.5); Lymphocyte # 1.67 X10^3/ul (0.83-4.51); Lymphocyte % 23.9 % (19-41); Mean Corp Hgb Conc 33.5 g/dL (32-36); Mean Corpuscular Hgb 29.3 pg (27.0-32.0); Mean Corpuscular Volume 87.3 fL (80-94); Monocyte# 0.83 X10^3/uL; Monocyte% 11.9 % (0-10); NRBC Flagged by Analyzer 0 % (0-5); Neutrophil # 4.25 X10^3/uL (2.7-7.7); Neutrophil % 60.9 % (47-70); Platelet Count 158 K/mm3 (150-450); RBC Distribution Width CV 12.6 % (11.6-14.6); RBC Distribution Width SD 40.3 fl (35.1-43.9); Red Blood Count 5.53 M/mm3 (4.6-6.2)
[2022-03-24 10:05] LABS: Anion Gap 7 (5-15); BUN 21 mg/dL (7-18); BUN/Creat Ratio 18.4 RATIO (10-20); Calcium,Total 8.8 mg/dL (8.5-10.1); Chloride 106 mmol/L (98-107); Creatinine, Serum 1.14 mg/dL (0.70-1.30); EST Glomerular Filtration Rate 70 mL/min (>60); Est Glom Filt Rate - Afr Amer 85 mL/min (>60); Estimated Creatinine Clearance 77.06 ml/min; Glucose 115 mg/dL (74-106); Lipase 195 U/L (73-393); Magnesium 2.4 mg/dL (1.6-2.6); Sodium Level 140 mmol/L (136-145); Troponin-I HS (w/2H Reflex) 12 pg/mL (3.0-78.0)
[2022-03-24 10:16] LABS: AST(SGOT) 13 U/L (15-37); Alanine Aminotransfer ALT/SGPT 32 U/L (16-61); Alkaline Phosphatase 53 U/L (45-117); Bilirubin, Direct 0.18 mg/dL (0.00-0.30); Globulin 3.5 g/dL (2.2-4.2); Protein, Total 7.5 g/dL (6.4-8.2)
--- NOTE | 2022-03-24 10:20 | ED.VIS.CHEST ---
HPI History of Present Illness Chief Complaint: Chest Pain Informant: patient Narrative Narrative: Patient is a 56-year-old male with history of diverticulitis, hypertension, hyperlipidemia, hiatal hernia, GERD presenting with chest pain. Patient states around 8 AM he developed epigastric abdominal pain. 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 He felt it was so bad he was going to pass out. It started rating to his chest, his back, behind his left shoulder blade and down his left arm. He describes as a pressure. He was sweating and slightly nauseous without a secondary to the pain. He notes that the past month he has been having postprandial diarrhea. He has a history of cholecystectomy as well as partial colectomy secondary to diverticulitis. He notes he had a stroke in November but has no residual deficits. He also reports that he had a stress test about a year ago and about 10 years ago had a cardiac catheterization due to similar chest discomfort. He states he had no significant disease at that time. That cath was performed at per the patient. Patient did not take anything for symptoms prior to arrival. [facility] Medical History Abdominal pain Acute cerebrovascular accident (CVA) due to ischemia Borderline type 2 diabetes mellitus Constipation COVID-19 vaccine series completed Depression with anxiety Diverticulitis Former smoker GERD (gastroesophageal reflux disease) Hyperlipidemia Hypertension Sleep apnea Type 2 diabetes mellitus Home Medications melatonin 3 mg tablet 9 mg PO QHS SLEEP 05/12/19 [History Last Taken 11/29/21] trazodone 100 mg tablet 200 mg PO QHS SLEEP 05/12/19 [History Last Taken 11/29/21] famotidine 20 mg tablet 20 mg PO BID GERD 02/17/20 [History Last Taken 11/30/21] carbidopa ER 50 mg-levodopa 200 mg tablet,extended release 1 tab PO QHS [place] 02/16/21 [History Last Taken 11/29/21] clonazepam 0.5 mg tablet 0.5 mg PO QHS 02/16/21 [History Last Taken 11/30/21] hydrochlorothiazide 12.5 mg tablet 12.5 mg PO QAM #90 tabs 02/16/21 [Rx Last Taken 11/30/21] levodopa 42 mg capsule with inhalation device (Inbrija) 84 mg inhalation TID 02/16/21 [History Last Taken 11/30/21] propranolol 10 mg tablet 10 mg PO TID 02/16/21 [History Last Taken 11/30/21] carbidopa ER 36.25 mg-levodopa 145 mg capsule,extended release (Rytary) 1 cap PO 4X/DAY 11/30/21 [History Last Taken Unknown] cholecalciferol (vitamin D3) 50 mcg (2,000 unit) tablet 50 mcg PO DAILY supplement 11/30/21 [History Last Taken 11/30/21] diltiazem HCl 60 mg tablet 60 mg PO BID 11/30/21 [History Last Taken 11/30/21] empagliflozin 25 mg tablet (Jardiance) 12.5 mg PO DAILY 11/30/21 [History Last Taken 11/30/21] omega-3 fatty acids 1,000 mg PO DAILY 11/30/21 [History Last Taken 11/30/21] pantoprazole 40 mg tablet,delayed release (Protonix) 80 mg PO BID gerd 11/30/21 [History Last Taken 11/30/21] polyethylene glycol 3350 17 gram oral powder packet 17 g PO QHS 11/30/21 [History Last Taken 11/29/21] prazosin 5 mg capsule 10 mg PO QHS 11/30/21 [History Last Taken 11/29/21] rosuvastatin 20 mg tablet 20 mg PO QHS 11/30/21 [History Last Taken 11/29/21] testosterone cypionate 200 mg/mL intramuscular oil 200 mg IM Q14D 11/30/21 [History Last Taken 1 Week Ago ~11/23/21] clopidogrel 75 mg tablet 75 mg PO DAILY #21 tabs 12/02/21 [Rx Last Taken Unknown] ondansetron 4 mg disintegrating tablet 4 mg PO Q8H PRN nausea and vomiting #30 tabs 01/13/22 [Rx Last Taken Unknown] dicyclomine 20 mg tablet 20 mg PO BID #20 tabs 01/14/22 [Rx Last Taken Unknown] sucralfate 1 gram tablet (Carafate) 1 g PO Q6H #28 tabs 03/24/22 [Rx Last Taken Unknown] Allergy/AdvReac Type Severity Reaction Status Date / Time No Known Allergies Allergy Verified 03/24/22 09:21 Family History Mother Heart disease Hypertension High cholesterol Cancer skin cancer Father Heart disease High cholesterol Hypertension CVA (cerebral vascular accident) Surgical History History of appendectomy History of colectomy (~02/2020) History of laparoscopic cholecystectomy S/P arthroscopic surgery of left knee Social History household members: spouse number of children: 5 current occupational status: unemployed Smoking Status: Former smoker how long ago did patient quit smoking: Quit ~ 15 years prior, smoked socially only. alcohol intake: never substance use type: does not use ROS ROS ED Constitutional Constitutional ED: Reports sweats; Denies chills or fever(s) Eyes Eyes: Denies change in vision Cardiovascular Cardiovascular: Reports as per HPI and chest pain; Denies palpitations Respiratory/Chest Respiratory/Chest: Denies cough or dyspnea Gastrointestinal Gastrointestinal: Reports abdominal pain, diarrhea and nausea; Denies constipation or vomiting Genitourinary Genitourinary ED: Denies dysuria or hematuria Musculoskeletal Musculoskeletal: Reports back pain; Denies arthralgias, myalgias or neck pain Integumentary Denies rash Neurologic Neurologic: Denies headache(s), paresthesias or weakness Hematologic/Lymphatic Hematologic/Lymphatic: Denies easy bleeding or easy bruising EXAM Physical Exam Const Vital Signs: 03/24/22 09:18 03/24/22 09:24 03/24/22 10:43 Temperature 97.2 F L Temperature Source Temporal Pulse Rate 70 65 Respiratory Rate 15 Respiratory Effort Normal Non-Labored Blood Pressure 157/89 H 123/79 H Blood Pressure Mean 111 Pulse Ox 96 Oxygen Delivery Method Room Air 03/24/22 10:54 03/24/22 12:18 03/24/22 14:14 Temperature 98.2 F Temperature Source Temporal Pulse Rate 66 55 L 74 Respiratory Rate 16 16 Respiratory Effort Blood Pressure 136/77 H 105/70 119/75 Blood Pressure Mean 81 89 Pulse Ox 98 99 Oxygen Delivery Method Room Air Room Air Positive well nourished and well developed General Appearance ED: well developed and NAD HEENT Reports moist mucous membranes normocephalic and atraumatic Eyes PERRL Neck supple and no JVD Chest Wall inspection of chest normal and palpation of chest normal Resp normal respiratory effort and clear to auscultation bilaterally Cardio regular rate, regular rhythm and no murmurs GI normal to inspection, nondistended, normoactive bowel sounds GI Narrative: Mild tenderness palpation in the epigastric and left upper quadrant Extremity normal to inspection Extremity Narrative: 2+ radial and PT pulses Neuro oriented x3 Sensorium / Orientation: awake and alert Motor Exam: Negative for general weakness Psych mental status grossly normal Skin no rashes or lesions noted and no wounds Heart Score History: Moderately Suspicious ECG: Normal Age: >45 - <65 years Risk Factors: >/= 3 Risk Factors or History of CAD Troponin: </= Normal Limit Score: 4 MDM MDM MDM Narrative Medical decision making narrative: Patient is evaluated for chest pain. Started as epigastric/left upper quadrant and radiates to his chest. Vital signs are significant for mild hypertension with a blood pressure 157/89. Differential includes but is not limited to ACS, pneumonia, gastritis, pancreatitis or other acute cardiopulmonary process. Chart review performed and patient had echocardiogram on 11/30/2021 which showed EF of 60% with no significant abnormalities. Patient had a stress test on 06/08/2020 which showed normal pharmacologic myocardial perfusion. Cardiac work-up including delta high-sensitivity troponin is normal. Patient has mild improvement of his chest pain with nitroglycerin but continues to have significant epigastric and left upper quadrant abdominal pain. He is given Maalox (GI cocktail is ordered but our hospital is currently out of oral lidocaine). Patient does not have any significant improvement with a GI cocktail. He is given 4 mg of IV morphine and has improvement of his pain. Given his continued pain I did check a CT of his abdomen pelvis to rule out any diverticulitis, obstruction or other acute process to explain his presentation today. CT is largely negative. Patient is a longstanding history of acid reflux is actually on Protonix as well as famotidine. He has been already referred to Dr. Abreu but cannot be seen until May. I will start the patient on Carafate and encouraged follow-up with primary care until he can be seen by GI. I do suspect his symptoms are more GI in nature. He is also encouraged follow-up with his primary care doctor for further outpatient cardiac testing including stress testing if possible. Patient verbalized agreement understand this plan. Given return precautions to the ER. Discharged home in stable condition. Lab Data Labs: Laboratory Results - last 24 hr 03/24/22 03/24/22 03/24/22 09:20 09:20 09:20 WBC 7.0 RBC 5.53 Hgb 16.2 Hct 48.3 MCV 87.3 MCH 29.3 MCHC 33.5 RDW Std Deviation 40.3 RDW Coeff of Gail 12.6 Plt Count 158 MPV 10.0 Immature Gran % (Auto) 0.100 Neut % (Auto) 60.9 Lymph % (Auto) 23.9 [place] % (Auto) 11.9 H Eos % (Auto) 2.6 Baso % (Auto) 0.6 Absolute Neuts (auto) 4.3 Absolute Lymphs (auto) 1.67 Nucleated RBC % 0 Sodium 140 Potassium 4.0 Chloride 106 Carbon Dioxide 27.0 Anion Gap 7 BUN 21 H Creatinine 1.14 Estim Creat Clear Calc 77.06 Est GFR (MDRD) Af Amer 85 Est GFR (MDRD) Non-Af 70 BUN/Creatinine Ratio 18.4 Glucose 115 H Calcium 8.8 Magnesium 2.4 Total Bilirubin 0.70 Direct Bilirubin 0.18 AST 13 L ALT 32 Alkaline Phosphatase 53 Troponin I High Sens 12 Total Protein 7.5 Albumin 4.0 Globulin 3.5 Lipase 195 03/24/22 11:24 WBC RBC Hgb Hct MCV MCH MCHC RDW Std Deviation RDW Coeff of Gail Plt Count MPV Immature Gran % (Auto) Neut % (Auto) Lymph % (Auto) [place] % (Auto) Eos % (Auto) Baso % (Auto) Absolute Neuts (auto) Absolute Lymphs (auto) Nucleated RBC % Sodium Potassium Chloride Carbon Dioxide Anion Gap BUN Creatinine Estim Creat Clear Calc Est GFR (MDRD) Af Amer Est GFR (MDRD) Non-Af BUN/Creatinine Ratio Glucose Calcium Magnesium Total Bilirubin Direct Bilirubin AST ALT Alkaline Phosphatase Troponin I High Sens 11 Total Protein Albumin Globulin Lipase Radiography Chest X-Ray - ED: 2 View, Read by ED Physician, Read by Radiologist and No Acute Disease Diagnostic Testing: Clinical Impression(s) from Imaging Studies Chest X-Ray 03/24/22 09:38 IMPRESSION: Normal x-ray examination of the chest. Electronically Signed: Nikhil Jarquin MD at 10:19 EST , Abdomen/Pelvis CT 03/24/22 12:32 IMPRESSION: Fatty infiltration of the liver. An anastomosis seen in the sigmoid colon. Status post cholecystectomy and appendectomy. Electronically Signed: Nikhil Jarquin MD at 13:20 EST , Rhythm Strip Rhythm Strip: Sinus Rhythm Rate: 68 Ectopy: None EKG Initial EKG: Attestation: I personally reviewed and interpreted this EKG as follows: Interpretation: Sinus Rhythm Comments: Normal sinus rhythm at a rate of 68 bpm Normal axis Normal intervals Normal ST segments No significant change compared to prior EKG on 08/04/2021 Discharge Plan Triage Chief Complaint: Chest Pain ED Provider: Tarsha Power Dx/Rx/DC Orders Clinical Impression: Chest pain, Abdominal pain, acute, left upper quadrant Instructions: ED Chest Pain, Uncertain Cause, ED Abd Pain Unknown ... Prescriptions: New sucralfate [Carafate] 1 gram tablet 1 g PO Q6H Qty: 28 0RF No Action Inbrija 42 mg capsule, w/inhalation device 84 mg inhalation TID clonazepam 0.5 mg tablet 0.5 mg PO QHS propranolol 10 mg tablet 10 mg PO TID hydrochlorothiazide 12.5 mg tablet 12.5 mg PO QAM Qty: 90 1RF ondansetron 4 mg tablet,disintegrating 4 mg PO Q8H PRN (Reason: nausea and vomiting) Qty: 30 0RF melatonin 3 MG tablet 9 mg PO QHS trazodone 100 MG tablet 200 mg PO QHS famotidine 20 MG tablet 20 mg PO BID carbidopa-levodopa 50-200 mg tablet extended release 1 tab PO QHS polyethylene glycol 3350 17 gram Powder In Packet 17 g PO QHS prazosin 5 mg Capsule 10 mg PO QHS testosterone cypionate 200 mg/mL Oil 200 mg IM Q14D diltiazem HCl 60 mg Tablet 60 mg PO BID omega-3 fatty acids Capsule 1,000 mg PO DAILY rosuvastatin 20 mg Tablet 20 mg PO QHS cholecalciferol (vitamin D3) 50 mcg (2,000 unit) Tablet 50 mcg PO DAILY Jardiance 25 mg Tablet 12.5 mg PO DAILY Rytary 36.25-145 mg Capsule, Extended Release 1 cap PO 4X/DAY Rx Instructions: divide evenly over waking hours pantoprazole [Protonix] 40 mg tablet,delayed release (DR/EC) 80 mg PO BID clopidogrel 75 mg Tablet 75 mg PO DAILY Qty: 21 0RF dicyclomine 20 mg tablet 20 mg PO BID Qty: 20 0RF Primary Care Provider: Chang Lugo NP Referrals: Timur Abreu DO [Med Staff - Active Staff] - As soon as possible Chang Lugo NP, TRANSPORTATION SERVICES REPRESENTATIVE-[facility] [Primary Care Provider] - Activity Restrictions/Additional Instructions: Your cardiac work-up was normal today. The exact cause of your pain is not clear. I question if it could be more associated with your stomach. We will start on Carafate. Please follow-up with your primary care physician for further cardiac evaluation and possibly scheduling an outpatient stress test. Return to the ER if you have a progression or worsening of your symptoms. Disposition Disposition: Home, Self Care Discharge Date/Time: 03/24/22 14:15
[2022-03-24] MEDS: Aspirin 81 MG TAB.CHEW 324 MG PO (10:42)
[2022-03-24 10:43] VITALS: BP 123/79; PULSE 65
[2022-03-24] MEDS: Nitroglycerin SL (ED/IMG/CATH) 0.4 MG TABLET SL ×2 (10:43→10:54)
[2022-03-24 10:54] VITALS: BP 136/77; PULSE 66
[2022-03-24] MEDS: Morphine 4 MG/ML Syringe IV (11:27)
[2022-03-24] MEDS: Mag Hydrox/Al Hydrox/Simeth 30 ML UDC PO (11:38)
[2022-03-24 11:43] LABS: Reflex Troponin-HS? (from REC) Y
[2022-03-24 11:58] LABS: Troponin-I HS 11 pg/mL (3.0-78.0)
[2022-03-24 12:18] VITALS: BP 105/70; PULSE 55; RESP 16; O2SAT 98
--- NOTE | 2022-03-24 12:32 | CT_ITS ---
STUDY: CT ABDOMEN AND PELVIS WITH CONTRAST REASON FOR EXAM: Male, 56 years old. Left-sided epigastric pain. Partial colectomy for diverticular disease. RADIATION DOSAGE (If Supplied By Facility): CTDIvol = ( 17.71 ) mGy, DLP = ( 1172.02 ) mGycm TECHNIQUE: Transaxial images were obtained from the dome of the diaphragm to the symphysis pubis without oral contrast. IV 100mL Isovue-300 was administered. Sagittal and coronal images were reconstructed. Individualized dose optimization techniques were used for this CT. COMPARISON: Comparison is made with prior examination dated 01/14/2022. FINDINGS: The visualized lung bases are unremarkable. The visualized portions of the heart are within normal limits. There is decreased attenuation of the liver consistent with steatosis. There are surgical clips in the gallbladder fossa consistent with a prior cholecystectomy. Normal spleen. Normal pancreas. Normal bilateral adrenal glands. Normal right kidney. Normal left kidney. There is a small hiatal hernia. Normal small intestine. Surgical anastomosis is seen in the sigmoid colon. The patient is status post appendectomy. Clinical history. Normal abdominal aorta. Normal inferior vena cava. Normal retroperitoneum. Normal urinary bladder. Normal abdominal wall. There are mild degenerative changes of the visualized lumbar spine. CT/Abdomen/Pelvis W IV Cont ONLY IMPRESSION: Fatty infiltration of the liver. An anastomosis seen in the sigmoid colon. Status post cholecystectomy and appendectomy. Electronically Signed: Nikhil Jarquin MD at 13:20 EST ,
[2022-03-24 14:14] VITALS: BP 119/75; PULSE 74; RESP 16; TEMP 36.8; O2SAT 99
== END 2022-03-24 14:15 | disposition home or self-care (01) ==
PROVIDERS: Emergency Provider Emergency Medicine; PCP Nurse Practitioner Family; Visit Provider Emergency Medicine
DX: R07.9 Chest pain, unspecified (principal); E11.9 Type 2 diabetes mellitus without complications; R11.0 Nausea; Z87.891 Personal history of nicotine dependence; I10 Essential (primary) hypertension; E78.5 Hyperlipidemia, unspecified; R19.7 Diarrhea, unspecified; R10.12 Left upper quadrant pain
CPT/HCPCS: 36415; 71046; 74177; 80048; 80076; 83690; 83735; 84484; 85025; 93005; 96374; 99285; Q9967; A4216

== ENCOUNTER 2022-05-26 11:35 | Emergency (ER) | payer OTHER, SELFPAY ==
[2022-05-26 11:36] VITALS: BP 122/80; PULSE 72; RESP 20; TEMP 36.6; O2SAT 96; BMI 32.4
--- NOTE | 2022-05-26 12:03 | EDS_ITS ---
HPI HPI - GI History of Present Illness Chief Complaint: Abd Pain Detail of Chief Complaint: Abdominal pain Informant: patient Narrative Narrative: Patient presents with abdominal pain as her 3 days ago. Patient thought his diverticulitis might be acting up. He started on a soft diet. He denies any blood in his stool or black tarry stool. Pain became more severe today. Patient had nausea and vomited x2 at home. He does describe some dysuria and some urinary frequency. He is never had a kidney stone. Patient had a partial colectomy for diverticulitis about 2 years ago. Patient has had his appendix re moved and has had his gallbladder removed. Prior similar symptoms: Yes PFSH PFSH Medical History Abdominal pain Acute cerebrovascular accident (CVA) due to ischemia Borderline type 2 diabetes mellitus Constipation COVID-19 vaccine series completed Depression with anxiety Diverticulitis Former smoker GERD (gastroesophageal reflux disease) Hyperlipidemia Hypertension Sleep apnea Type 2 diabetes mellitus Home Medications melatonin 3 mg tablet 9 mg PO QHS SLEEP 05/12/19 [History Last Taken 11/29/21] trazodone 100 mg tablet 200 mg PO QHS SLEEP 05/12/19 [History Last Taken 11/29/21] famotidine 20 mg tablet 20 mg PO BID GERD 02/17/20 [History Last Taken 11/30/21] carbidopa ER 50 mg-levodopa 200 mg tablet,extended release 1 tab PO QHS [place] 02/16/21 [History Last Taken 11/29/21] clonazepam 0.5 mg tablet 0.5 mg PO QHS 02/16/21 [History Last Taken 11/30/21] hydrochlorothiazide 12.5 mg tablet 12.5 mg PO QAM #90 tabs 02/16/21 [Rx Last Taken 11/30/21] levodopa 42 mg capsule with inhalation device (Inbrija) 84 mg inhalation TID 02/16/21 [History Last Taken 11/30/21] propranolol 10 mg tablet 10 mg PO TID 02/16/21 [History Last Taken 11/30/21] carbidopa ER 36.25 mg-levodopa 145 mg capsule,extended release (Rytary) 1 cap PO 4X/DAY 11/30/21 [History Last Taken Unknown] cholecalciferol (vitamin D3) 50 mcg (2,000 unit) tablet 50 mcg PO DAILY supplement 10/04/22 [History Last Taken 11/30/21] diltiazem HCl 60 mg tablet 60 mg PO BID 11/30/21 [History Last Taken 11/30/21] empagliflozin 25 mg tablet (Jardiance) 12.5 mg PO DAILY 11/30/21 [History Last Taken 11/30/21] omega-3 fatty acids 1,000 mg PO DAILY 11/30/21 [History Last Taken 11/30/21] pantoprazole 40 mg tablet,delayed release (Protonix) 80 mg PO BID gerd 11/30/21 [History Last Taken 11/30/21] polyethylene glycol 3350 17 gram oral powder packet 17 g PO QHS 11/30/21 [History Last Taken 11/29/21] prazosin 5 mg capsule 10 mg PO QHS 11/30/21 [History Last Taken 11/29/21] rosuvastatin 20 mg tablet 20 mg PO QHS 11/30/21 [History Last Taken 11/29/21] testosterone cypionate 200 mg/mL intramuscular oil 200 mg IM Q14D 11/30/21 [History Last Taken 1 Week Ago ~11/23/21] clopidogrel 75 mg tablet 75 mg PO DAILY #21 tabs 12/02/21 [Rx Last Taken Unknown] ondansetron 4 mg disintegrating tablet 4 mg PO Q8H PRN nausea and vomiting #30 tabs 01/13/22 [Rx Last Taken Unknown] dicyclomine 20 mg tablet 20 mg PO BID #20 tabs 01/14/22 [Rx Last Taken Unknown] sucralfate 1 gram tablet (Carafate) 1 g PO Q6H #28 tabs 03/24/22 [Rx Last Taken Unknown] duloxetine 60 mg capsule,delayed release 60 mg PO DAILY 03/29/22 [History Last Taken Unknown] Allergy/AdvReac Type Severity Reaction Status Date / Time No Known Allergies Allergy Verified 05/26/22 11:38 Family History Mother Heart disease Hypertension High cholesterol Cancer skin cancer Father Heart disease High cholesterol Hypertension CVA (cerebral vascular accident) Surgical History History of appendectomy History of colectomy (~02/2020) History of laparoscopic cholecystectomy S/P arthroscopic surgery of left knee Social History household members: spouse number of children: 5 current occupational status: unemployed Smoking Status: Former smoker how long ago did patient quit smoking: Quit ~ 15 years prior, smoked socially only. alcohol intake: never substance use type: does not use ROS ROS ED Review of Systems ROS Unobtainable: other Constitutional Constitutional ED: Reports lethargy; Denies chills, fever(s), sweats or weight loss Eyes Eyes: Denies blurry vision, change in vision or diplopia ENT ENT ED: Denies rhinorrhea or sore throat Cardiovascular Cardiovascular: Denies chest pain, orthopnea or racing heartbeat Respiratory/Chest Respiratory/Chest: Denies cough, dyspnea, dyspnea on exertion, orthopnea or sputum Gastrointestinal Gastrointestinal: Reports abdominal pain, nausea and vomiting; Denies diarrhea Genitourinary Genitourinary ED: Denies dysuria, hematuria or urinary frequency Musculoskeletal Musculoskeletal: Denies arthralgias, back pain, myalgias or neck pain Integumentary Denies abscess, Abrasions or rash Neurologic Neurologic: Denies headache(s) or weakness Psychiatric Psychiatric: Denies anxiety, depression or suicidal thoughts Endocrine Endocrinology: Denies polydipsia, polyphagia or polyuria Hematologic/Lymphatic Hematologic/Lymphatic: Denies easy bleeding, easy bruising or lymphadenopathy Allergic/Immunologic Allergic/Immunologic ED: Denies mouth swelling, tongue swelling or urticaria EXAM Physical Exam Const Vital Signs: 05/26/22 11:36 Temperature 97.9 F Temperature Source Temporal Pulse Rate 72 Respiratory Rate 20 H Blood Pressure 122/80 H Blood Pressure Mean 94 Pulse Ox 96 Oxygen Delivery Method Room Air Positive well nourished and well developed General Appearance ED: well developed and NAD HEENT Reports TM's clear and moist mucous membranes normocephalic and atraumatic; Negative for trauma or tenderness Tympanic Membrane ED: Yes TM's clear Eyes PERRL and EOMs intact bilaterally General Eye ED: Negative for pale conjunctiva or scleral icterus Neck no lymphadenopathy, supple and no JVD General: Negative for tenderness Chest Wall inspection of chest normal and palpation of chest normal Chest: Negative for tenderness Resp normal respiratory effort and clear to auscultation bilaterally Effort and Inspection: Negative for respiratory distress or pain with movement Auscultation: Negative for rhonchi, wheezes or diminished lung sounds Cardio regular rate, regular rhythm, S1 normal heart sound, S2 normal heart sound and no murmurs Peripheral Pulses: pulses 2+ throughout GI normal to inspection, nondistended, normoactive bowel sounds, soft to palpation, non-distended and no masses GI Narrative: Tenderness to palpation over left lower quadrant and suprapubic region with some guarding. There is no rebound, rigidity, or pedal signs. Patient has mild CVA tenderness on the left. Back/Spine no thoracic nor lumbar tenderness Back/Spine Narrative: Mild left CVA tenderness. Extremity normal to inspection General Extremety ED: Negative for edema General Extremity: Negative for edema Neuro oriented x3, CN's II-XII intact bilaterally, no sensory deficits noted and gait normal Sensorium / Orientation: awake, alert, oriented to person, oriented to place and oriented to time Motor Exam: strength 5/5 throughout and strength abnormal Psych mental status grossly normal Skin no rashes or lesions noted and no wounds MDM MDM MDM Narrative Medical decision making narrative: Patient presents with left-sided abdominal pain with history of diverticulitis. In the differential also would be kidney stone versus bowel obstruction versus bowel perforation. Lab work-up showed a normal white count of 7.1. Hemoglobin was 16.1. Platelet count was 151. Chemistries unremarkable. Urinalysis showed glucose but no signs of infection. CT scan of the abdomen pelvis essentially showed no acute disease process but did show the prior anastomosis of the sigmoid colon. Patient was medicated with morphine and Zofran as well as Toradol on arrival. He had good pain relief with that. I discussed results with the patient. He is got an appointment with orthotic and prosthetic technician in May. Patient does not anything for pain or nausea for home. He is advised to return if worsening pain, fever, vomiting, or condition should worsen anyway. Lab Data Labs: Laboratory Results - last 24 hr 05/26/22 05/26/22 05/26/22 12:25 12:25 12:25 WBC 7.1 RBC 5.51 Hgb 16.1 Hct 47.2 MCV 85.7 MCH 29.2 MCHC 34.1 RDW Std Deviation 36.6 RDW Coeff of Gail 11.9 Plt Count 151 MPV 9.6 Immature Gran % (Auto) 0.400 Neut % (Auto) 66.6 Lymph % (Auto) 21.1 [place] % (Auto) 9.6 Eos % (Auto) 1.7 Baso % (Auto) 0.6 Absolute Neuts (auto) 4.8 Absolute Lymphs (auto) 1.50 Nucleated RBC % 0 Sodium 139 Potassium 3.9 Chloride 104 Carbon Dioxide 30.0 Anion Gap 5 BUN 17 Creatinine 1.20 Estim Creat Clear Calc 73.21 Est GFR (MDRD) Af Amer 80 Est GFR (MDRD) Non-Af 66 BUN/Creatinine Ratio 14.2 Glucose 121 H Calcium 9.2 Urine Color Yellow Urine Clarity Clear Urine pH 7.0 Ur Specific [place] 1.010 Urine Protein Negative Urine Glucose (UA) 1000 H Urine Ketones Negative Urine Occult Blood Negative Urine Nitrite Negative Urine Bilirubin Negative Urine Urobilinogen Normal Ur Leukocyte Esterase Negative Urine RBC 0 SEEN Urine WBC 0 SEEN Ur Squamous Epith Cells 0 SEEN Urine Bacteria 0 SEEN Urine Mucus 0 SEEN Radiography Diagnostic Testing: Clinical Impression(s) from Imaging Studies Abdomen/Pelvis CT 05/26/22 12:03 IMPRESSION: Status post cholecystectomy. Surgical anastomosis is seen at the rectosigmoid colon. Electronically Signed: Nikhil Jarquin MD at 12:57 EDT , Discharge Plan Triage Chief Complaint: Abd Pain ED Provider: Deo Rodriguez Dx/Rx/DC Orders Clinical Impression: Abdominal pain Instructions: ED Abdominal Pain Unkn Cause Male... Prescriptions: No Action Inbrija 42 mg capsule, w/inhalation device 84 mg inhalation TID clonazepam 0.5 mg tablet 0.5 mg PO QHS propranolol 10 mg tablet 10 mg PO TID hydrochlorothiazide 12.5 mg tablet 12.5 mg PO QAM Qty: 90 1RF ondansetron 4 mg tablet,disintegrating 4 mg PO Q8H PRN (Reason: nausea and vomiting) Qty: 30 0RF duloxetine 60 mg capsule,delayed release(DR/EC) 60 mg PO DAILY melatonin 3 MG tablet 9 mg PO QHS trazodone 100 MG tablet 200 mg PO QHS famotidine 20 MG tablet 20 mg PO BID carbidopa-levodopa 50-200 mg tablet extended release 1 tab PO QHS polyethylene glycol 3350 17 gram Powder In Packet 17 g PO QHS prazosin 5 mg Capsule 10 mg PO QHS testosterone cypionate 200 mg/mL Oil 200 mg IM Q14D diltiazem HCl 60 mg Tablet 60 mg PO BID omega-3 fatty acids Capsule 1,000 mg PO DAILY rosuvastatin 20 mg Tablet 20 mg PO QHS cholecalciferol (vitamin D3) 50 mcg (2,000 unit) Tablet 50 mcg PO DAILY Jardiance 25 mg Tablet 12.5 mg PO DAILY Rytary 36.25-145 mg Capsule, Extended Release 1 cap PO 4X/DAY Rx Instructions: divide evenly over waking hours pantoprazole [Protonix] 40 mg tablet,delayed release (DR/EC) 80 mg PO BID clopidogrel 75 mg Tablet 75 mg PO DAILY Qty: 21 0RF dicyclomine 20 mg tablet 20 mg PO BID Qty: 20 0RF sucralfate [Carafate] 1 gram tablet 1 g PO Q6H Qty: 28 0RF Primary Care Provider: Chang Lugo NP Referrals: Jay Chavez MD [Med Staff - Active Staff] - 3-5 Days Timur Abreu DO [Med Staff - Active Staff] - Keep [facility] appointment Chang Lugo NP, [employer]OWERHOU[employer] [Primary Care Provider] - Disposition Disposition: Home, Self Care
--- NOTE | 2022-05-26 12:03 | CT_ITS ---
STUDY: CT ABDOMEN AND PELVIS WITHOUT CONTRAST REASON FOR EXAM: Male, 56 years old. Pain, CONSTIPATION, COLECTOMY RADIATION DOSAGE (If Supplied By Facility): CTDIvol = ( 14.55 ) mGy, DLP = ( 767.07 ) mGycm TECHNIQUE: Transaxial images were obtained from the dome of the diaphragm to the symphysis pubis without oral contrast, and without intravenous contrast. Sagittal and coronal images were reconstructed. Individualized dose optimization techniques were used for this CT. COMPARISON: Comparison is made with prior study dated 11/22/2022. FINDINGS: The visualized lung bases are unremarkable. The visualized portions of the heart are within normal limits. Normal liver. There are surgical clips in the gallbladder fossa consistent with a prior cholecystectomy. Normal spleen. Normal pancreas. Normal bilateral adrenal glands. Normal right kidney. Normal left kidney. There is a small hiatal hernia. Normal small intestine. Surgical anastomosis is seen in the rectosigmoid colon. The patient is status post appendectomy. Normal abdominal aorta. Normal inferior vena cava. Normal retroperitoneum. Normal urinary bladder. Normal abdominal wall. There are degenerative changes of the visualized lumbar spine. CT/Abdomen/Pelvis without Cont IMPRESSION: Status post cholecystectomy. Surgical anastomosis is seen at the rectosigmoid colon. Electronically Signed: Nikhil Jarquin MD at 12:57 EDT ,
[2022-05-26] MEDS: 0.9% Normal Saline 1,000 ML 125 ML IV (12:21)
[2022-05-26] MEDS: Morphine 4 MG/ML Syringe IV (12:22)
[2022-05-26] MEDS: Ondansetron 4 MG/2 ML Vial IV (12:22)
[2022-05-26] MEDS: Ketorolac 15 MG/ML Vial IV (12:22)
[2022-05-26 12:37] LABS: Bacteria 0 SEEN /hpf (None Seen); Mucous, Urine 0 SEEN /hpf (<or=2+); Red Blood Cells-Urine 0 SEEN /hpf (0-5); Squamous Epithelial Cells - UA 0 SEEN /hpf (0-5); White Blood Cells 0 SEEN /hpf (0-5)
[2022-05-26 12:38] LABS: Color, Urine Yellow (Yellow); Glucose, Dipstick 1000 mg/dl (Normal); Ketone-Dipstick Negative (Negative); Leukocyte Esterase-Dipstick Negative /ul (Negative); Nitrite-Dipstick Negative (Negative); Occult Blood-Urine Negative /ul (Negative); Protein-Dipstick Negative (Negative); Urine Bilirubin Dipstick Negative (Negative); Urine Clarity Clear (Clear); Urine Urobilinogen Normal (Normal)
[2022-05-26 12:40] LABS: Absolute Neutrophil Count 4.8 X10^3/uL (2.0-7.7); Basophil# 0.04 X10^3/uL; Basophil% 0.6 % (0-1); Eosinophil# 0.12 X10^3/uL; Eosinophils% 1.7 % (0-5); Hematocrit 47.2 % (40-54); Hemoglobin 16.1 g/dL (13.0-16.5); Lymphocyte % 21.1 % (19-41); Mean Corp Hgb Conc 34.1 g/dL (32-36); Mean Corpuscular Hgb 29.2 pg (27.0-32.0); Mean Corpuscular Volume 85.7 fL (80-94); Mean Platelet Vol. 9.6 fl (6.2-12.0); Monocyte# 0.68 X10^3/uL; Monocyte% 9.6 % (0-10); NRBC Flagged by Analyzer 0 % (0-5); Neutrophil # 4.75 X10^3/uL (2.7-7.7); Neutrophil % 66.6 % (47-70); Platelet Count 151 K/mm3 (150-450); RBC Distribution Width CV 11.9 % (11.6-14.6); RBC Distribution Width SD 36.6 fl (35.1-43.9); Red Blood Count 5.51 M/mm3 (4.6-6.2); White Blood Count 7.1 K/mm3 (4.4-11.0)
[2022-05-26 12:52] LABS: Anion Gap 5 (5-15); BUN 17 mg/dL (7-18); BUN/Creat Ratio 14.2 RATIO (10-20); Calcium,Total 9.2 mg/dL (8.5-10.1); Chloride 104 mmol/L (98-107); EST Glomerular Filtration Rate 66 mL/min (>60); Est Glom Filt Rate - Afr Amer 80 mL/min (>60); Estimated Creatinine Clearance 73.21 ml/min; Glucose 121 mg/dL (74-106); Potassium 3.9 mmol/L (3.5-5.1); Sodium Level 139 mmol/L (136-145)
== END 2022-05-26 13:19 | disposition home or self-care (01) ==
PROVIDERS: Emergency Provider Emergency Medicine; PCP Nurse Practitioner Family; Visit Provider Emergency Medicine
DX: R10.9 Unspecified abdominal pain (principal); E11.9 Type 2 diabetes mellitus without complications; E78.5 Hyperlipidemia, unspecified; I10 Essential (primary) hypertension; R11.2 Nausea with vomiting, unspecified; R35.0 Frequency of micturition; R30.0 Dysuria; K21.9 Gastro-esophageal reflux disease without esophagitis; Z90.49 Acquired absence of other specified parts of digestive tract; Z79.84 Long term (current) use of oral hypoglycemic drugs; Z79.02 Long term (current) use of antithrombotics/antiplatelets; Z79.899 Other long term (current) drug therapy; Z87.891 Personal history of nicotine dependence; Z86.73 Personal history of transient ischemic attack (TIA), and cerebral infarction without residual deficits
CPT/HCPCS: 74176; 80048; 81001; 85025; 96361; 96374; 96375; 99283; J7030; A4216; J2405

== ENCOUNTER → 2022-06-17 | Outpatient (CLI) | payer OTHER, SELFPAY ==
[2022-06-17 10:45] LABS: Absolute Lymphocyte Count 1.14 X10^3/uL (0.83-4.51); Absolute Neutrophil Count 3.5 X10^3/uL (2.0-7.7); Basophil# 0.04 X10^3/uL; Basophil% 0.7 % (0-1); Eosinophil# 0.16 X10^3/uL; Hematocrit 47.5 % (40-54); Hemoglobin 16.2 g/dL (13.0-16.5); Lymphocyte # 1.14 X10^3/ul (0.83-4.51); Lymphocyte % 21.2 % (19-41); Mean Corp Hgb Conc 34.1 g/dL (32-36); Mean Corpuscular Hgb 29.5 pg (27.0-32.0); Mean Corpuscular Volume 86.4 fL (80-94); Mean Platelet Vol. 9.5 fl (6.2-12.0); Monocyte# 0.52 X10^3/uL; Monocyte% 9.7 % (0-10); NRBC Flagged by Analyzer 0 % (0-5); Neutrophil # 3.51 X10^3/uL (2.7-7.7); Neutrophil % 65.2 % (47-70); Platelet Count 151 K/mm3 (150-450); RBC Distribution Width CV 12.1 % (11.6-14.6); RBC Distribution Width SD 38.3 fl (35.1-43.9); White Blood Count 5.4 K/mm3 (4.4-11.0)
[2022-06-17 11:09] LABS: Differential Comment 5.4; Erythrocyte Sedimentation Rate 3 mm/hr (0-20)
[2022-06-17 11:13] LABS: ALB/GLOB Ratio 1.3 RATIO (0.9-2.4); AST(SGOT) 25 U/L (15-37); Alanine Aminotransfer ALT/SGPT 46 U/L (16-61); Albumin, Serum 4.5 g/dL (3.2-5.0); Alkaline Phosphatase 53 U/L (45-117); Anion Gap 4 (5-15); BUN 19 mg/dL (7-18); BUN/Creat Ratio 16.4 RATIO (10-20); CRP < 2.90 mg/L (0.0-3.0); Calcium,Total 9.5 mg/dL (8.5-10.1); Chloride 106 mmol/L (98-107); Creatinine, Serum 1.16 mg/dL (0.70-1.30); EST Glomerular Filtration Rate 69 mL/min (>60); Est Glom Filt Rate - Afr Amer 84 mL/min (>60); Globulin 3.5 g/dL (2.2-4.2); Glucose 131 mg/dL (74-106); LDH 165 U/L (87-241); Potassium 3.8 mmol/L (3.5-5.1); Sodium Level 137 mmol/L (136-145)
[2022-06-20 14:08] LABS: Dilute Prothrombin Time (dPT) 38.2 sec (0.0-47.6); Dilute Russell Viper Venom 33.3 sec (0.0-47.0); Interpretation Comment: (.); PTT-LA 36.6 sec (0.0-43.5); Thrombin Time 18.2 sec (0.0-23.0); dPT Confirm Ratio 1.01 Ratio (0.00-1.34)
[2022-06-20 15:07] LABS: Anti-Centromere B Ab <0.2 AI (0.0-0.9); Anti-Chromatin <0.2 AI (0.0-0.9); Anti-Jo <0.2 AI (0.0-0.9); Anti-Scleroderma-70 AB <0.2 AI (0.0-0.9); Anti-dsDNA Ab <1 IU/mL (0-9); Endomysial Antibody IgA Negative (Negative); Immunoglobulin A 243 mg/dL (90-386); RNP Ab <0.2 AI (0.0-0.9); SJOGREN'S Anti-SS-A test < 0.2 AI (0.0-0.9); SJOGREN'S Anti-SS-B test < 0.2 AI (0.0-0.9); Smith Ab <0.2 AI (0.0-0.9); t-Transglutaminase IgA <2 U/mL (0-3)
[2022-06-22 04:07] LABS: Albumin 4.2 g/dL (2.9-4.4); Alpha-1-Globulins 0.3 g/dL (0.0-0.4); Alpha-2-Globulins 0.6 g/dL (0.4-1.0); Cytoplasmic Ab (C-ANCA) <1:20 titer (Neg:<1:20); Immunoglobulin A 250 mg/dL (90-386); Immunoglobulin E 36 IU/mL (6-495); Immunoglobulin G 1184 mg/dL (603-1613); Immunoglobulin M 46 mg/dL (20-172); PROEL- TOTAL PROTEIN 7.2 g/dL (6.0-8.5); Perinuclear Ab (P-ANCA) <1:20 titer (Neg:<1:20)
== END | disposition home or self-care (01) ==
PROVIDERS: Physician Assistant; PCP Nurse Practitioner Family; Referring Provider Nurse Practitioner Adult Health; Visit Provider Nurse Practitioner Adult Health
DX: R19.8 Other specified symptoms and signs involving the digestive system and abdomen (principal); I63.9 Cerebral infarction, unspecified; R10.32 Left lower quadrant pain; K21.9 Gastro-esophageal reflux disease without esophagitis
CPT/HCPCS: 36415; 80053; 82784; 82785; 83516; 83615; 84165; 85025; 85652; 86140; 86225; 86235; 86255; 86256; 86334

== ENCOUNTER → 2022-06-18 | Outpatient (CLI) | payer OTHER, SELFPAY ==
[2022-06-23 16:09] LABS: Calprotectin, Stool 90 ug/g (0-120)
== END | disposition home or self-care (01) ==
LOC: LABSPEC 09:23
PROVIDERS: PCP Nurse Practitioner Family; Visit Provider Nurse Practitioner Adult Health
DX: R10.32 Left lower quadrant pain (principal); R19.8 Other specified symptoms and signs involving the digestive system and abdomen
CPT/HCPCS: 83630; 83993

== ENCOUNTER 2022-07-04 08:25 | Day surgery (SDC) | payer OTHER, SELFPAY ==
[2022-07-04] VITALS (7 sets, daily range): BP systolic 93–118; BP diastolic 54–70; PULSE 63–74; RESP 16–18; TEMP 36.3–36.7; O2SAT 95–97; BMI 31.9
--- NOTE | 2022-07-04 | GASB_PTH ---
PATIENT: KRISHAN BURNHAM LOC: EN U#:[id number] AGE/SX: 56/M ROOM: RE07/04/[address]: Dr. Timur Abreu DO : 1965 BED: DIS: 07/04/2022 SPEC #: [id number] RECD: 07/04/22 14:16 STATUS: FLYNN JUANY #: [id number] BAIRON: 07/04/22 00:[address]: Timur Abreu DEPT: SURGICAL PATHOLOGY RECD BY: Jd Angeles ENTERED: 07/05/22 11:53 SP TYPE: Gastric Bx OTHR DR: Chang Lugo, MANAGER [employer] Tissues: A - Duodenum, NOS B - Gastric mucous membrane C - Esophageal mucous membrane D - Ileum, NOS E - COLON BIOPSY F - Sigmoid colon biopsy Procedures: Special Stain Group II Surgery Specimen Level IV Alcian Blue/PAS (control) HEADER OPERATION: Colonoscopy, [place] biopsy PRE-OP DIAGNOSIS: Abdominal pain, constipation/diarrhea, GERD TISSUE SUBMITTED: A ? Duodenum biopsy, B ? Gastric body biopsy, C ? Distal esophagus biopsy, D ? Terminal ileum biopsy, E ? Random colonic biopsy, F ? Sigmoid polyp biopsy MICROSCOPIC DIAGNOSIS A. Duodenum, biopsy: Fragments of duodenal mucosa with Yaneth gland hyperplasia. B. Gastric body, biopsy: Mild gastritis. See microscopic description and comment. C. Distal esophagus, biopsy: Fragments of gastroesophageal mucosa with chronic inflammation. Intestinal metaplasia (goblet cell metaplasia) not identified. See comment. D. Terminal ileum, biopsy: A fragment of small intestinal mucosa, no pathologic diagnosis. E. Colon, random biopsy: Fragments of colonic mucosa, no pathologic diagnosis. F. Sigmoid polyp, biopsy: A fragment of colonic mucosa, no pathologic diagnosis. SJ:salas 07/06/2022 COMMENT B. The results of immunohistochemistry for Helicobacter pylori will be reported separately ([id number]). C. Alcian blue/PAS stain with matched control is used in the evaluation of the specimen. MICROSCOPIC DESCRIPTION Slides are reviewed. B. The specimen shows fragments of gastric mucosa with chronic inflammatory cell infiltrates in the lamina propria consisting of lymphocytes and plasma cells, consistent with mild chronic gastritis. Focal mucosal congestion is also noted. GROSS DESCRIPTION A - Received in fixative is one container labeled with the patient's name and designated duodenum biopsy. The specimen consists of two irregular fragments of light holbrook soft tissue that in aggregate measure 0.6 x 0.3 x 0.1 cm. The specimen is totally submitted in one cassette. B - Received in fixative is one container labeled with the patient's name and designated gastric body biopsy. The specimen consists of multiple irregular fragments of light holbrook soft tissue that in aggregate measure 1.0 x 0.3 x 0.1 cm. The specimen is totally submitted in one cassette. C - Received in fixative is one container labeled with the patient's name and designated distal esophagus biopsy. The specimen consists of multiple irregular fragments of light holbrook soft tissue that in aggregate measure 0.7 x 0.5 x 0.1 cm. The specimen is totally submitted in one cassette. D - Received in fixative is one container labeled with the patient's name and designated terminal ileum biopsy. The specimen consists of one irregular fragment of light holbrook soft tissue that measures 0.5 x 0.5 x 0.1 cm. The specimen is totally submitted in one cassette. E - Received in fixative is one container labeled with the patient's name and designated random colon biopsy. The specimen consists of multiple irregular fragments of light holbrook soft tissue that in aggregate measure 2.0 x 1.0 x 0.5 cm. The specimen is totally submitted in one cassette. F - Received in fixative is one container labeled with the patient's name and designated sigmoid polyp. The specimen consists of one irregular fragment of light ohlbrook soft tissue that measures 0.5 x 0.5 x 0.1 cm. The specimen is totally submitted in one cassette. / AM:salas 07/05/2022 TC:3 CPT: 01451 x6, [id number]
--- NOTE | 2022-07-04 08:34 | HP.PCM_ITS ---
History and Physical Date of Admission: 07/04/22 56 M who presents to the office today to establish with gastroenterology for chronic abdominal pain.? He actually has multiple different abdominal pains.? The most longstanding pain is left-sided which began years ago.? He had recurrent diverticulitis.? He had laparoscopic sigmoid colectomy and takedown of splenic flexure in January 2020.? Pain resolved for 3 months but then returned and has persisted since then.? He had a follow-up visit with his surgeon Dr. Chavez who felt he might be having issues with the anastomosis and possible stricturing.? At that time patient declined barium enema or colonoscopy.? He continues to have the pain in left upper and left lower quadrants.? This pain is constant.? Can be crampy or sharp.? No particular aggravating or relieving factors. He also has epigastric pain, this started about 6 months ago, random, usually in the morning, sudden onset, severe, doesn't radiate, lasts about an hour, worse with GI cocktail at [employer], better with milk and a little bit of food. He reports he has a hiatal hernia. He takes famotidine, pantoprazole. Reflux better since starting famotidine. Liquid sucralfate hasn't helped.??No nausea or vomiting.? No dysphagia. For 6 mos he has had alternating bowel pattern--can have urgent postprandial diarrhea with cramps, or he can have constipation. Currently having normal BMs, has started making/drinking kefir. No melena or hematochezia. No nocturnal diarrhea. 03/24/22 CT/Abdomen/Pelvis W IV Cont ONLY IMPRESSION: Fatty infiltration of the liver. An anastomosis seen in the sigmoid colon. Status post cholecystectomy and appendectomy. ? 05/26/22 CT/Abdomen/Pelvis without Cont IMPRESSION: Status post cholecystectomy. Surgical anastomosis is seen at the rectosigmoid colon. ROS Const Constitutional: Positive for fatigue, weakness and weight change ENT ENT: No difficulty swallowing Gastro GI: Positive for abdominal pain, bloating, change in bowel habits, constipation, diarrhea, heartburn, excessive flatus, nausea/dyspepsia and vomiting; No belching, change in stool character, coffee ground emesis, cramping, difficulty swallowing, feeling full early, incontinent of stools, Vomiting blood/hematemesis, Blood in stool, loose stools, Black,tarry stools, pain with swallowing or other Musc Musculoskeletal: Positive for stiffness, Arthritis and restless legs; No joint pain Skin Skin: No yellowing of the eye or itchy eyes Neuro Neurology: Positive for weakness and restless legs Psych Psychiatric: Positive for anxiety and Positive for depression Endo Endocrine: Positive for fatigue and weight change Aller/Imm Allergy/Immunologic: No itchy eyes Skyler/Lymp Hematologic/Lymphatic: No easy bleeding or easy bruising Exam Const General: cooperative, healthy appearing and comfortable Orientation: alert, awake and oriented x3 HENMT Head: normal to inspection Eyes Sclera: sclerae normal Resp Effort & Inspection: normal respiratory effort GI Inspection: normal to inspection Palpation: soft, no hepatosplenomegaly, no masses and tender in the epigastrum, in the LLQ, in the RLQ, in the LUQ and in the RUQ General: bladder normal to palpation Skin General: no rashes or lesions noted Neuro Speech: speech normal Gait: normal gait Psych Mood: congruent mood Quality Reporting Tobacco Screening ([facility] 138) Smoking Status: Former smoker Assessment and Plan Assessment and Plan (1) Abdominal pain: ?Status:?Chronic ?Qualifiers: ?Abdominal location:?left lower quadrant? Qualified Code(s):?R10.32 - Left lower quadrant pain ?Plan: 56-year-old male with long-term chronic left upper quadrant and left lower quadrant abdominal pain which may be related to diverticular disease.? History of sigmoid resection and takedown of splenic flexure in 2020 for diverticular disease.? Consider SCAD.? We will get labs to evaluate for inflammation and blood in stool, IBD, autoimmune.? We will contact him with the results via the portal, and any further evaluation as well as treatment.? He has chronic reflux, 6 months of intermittent severe epigastric pain.? He will be scheduled for EGD and colonoscopy, with office visit 2 weeks later to review results. (2) Alternating constipation and diarrhea: ?Status:?Chronic ?Plan: See above (3) GERD (gastroesophageal reflux disease): ?Status:?Chronic ?Qualifiers: ?Esophagitis presence:?esophagitis presence not specified? Qualified Cod e(s):?K21.9 - Gastro-esophageal reflux disease without esophagitis ?Plan: See above ? ? ? Orders: Orders Miscellaneous Lab Procedure Today K21.9 - Gastro-esophageal reflux disease without esophagitis, R10.32 - Left lower quadrant pain, R19.8 - Other specified symptoms and signs involving the digestive system and abdomen ? Comprehensive Metabolic Profil Today R10.32 - Left lower quadrant pain, R19.8 - Other specified symptoms and signs involving the digestive system and abdomen ? CRP Today R10.32 - Left lower quadrant pain, R19.8 - Other specified symptoms and signs involving the digestive system and abdomen ? LDH Today R10.32 - Left lower quadrant pain, R19.8 - Other specified symptoms and signs involving the digestive system and abdomen ? CBC W/Diff, Automated Today R10.32 - Left lower quadrant pain, R19.8 - Other specified symptoms and signs involving the digestive system and abdomen ? Erythrocyte Sed Rate Today R10.32 - Left lower quadrant pain, R19.8 - Other specified symptoms and signs involving the digestive system and abdomen ? DEVI Comprehensive Panel Today R10.32 - Left lower quadrant pain, R19.8 - Other specified symptoms and signs involving the digestive system and abdomen ? Calprotectin, Stool Today R10.32 - Left lower quadrant pain, R19.8 - Other specified symptoms and signs involving the digestive system and abdomen ? Stool Lactoferrin/WBC Today R10.32 - Left lower quadrant pain, R19.8 - Other specified symptoms and signs involving the digestive system and abdomen ? ANCA Today R10.32 - Left lower quadrant pain, R19.8 - Other specified symptoms and signs involving the digestive system and abdomen ? Celiac Disease Profile Today R10.32 - Left lower quadrant pain, R19.8 - Other specified symptoms and signs involving the digestive system and abdomen ? Immunoglobulins G/A/M/E Today R10.32 - Left lower quadrant pain, R19.8 - Other specified symptoms and signs involving the digestive system and abdomen ? CAITLYN + Protein Elect, Serum Today R10.32 - Left lower quadrant pain, R19.8 - Other specified symptoms and signs involving the digestive system and abdomen ? I have examined the patient and the H&P has been reviewed. There are no clinical changes since date of exam.
[2022-07-04] MEDS: Lactated Ringers 1,000 ML 15 ML IV (08:59)
--- NOTE | 2022-07-04 09:30 | IMM_PTH ---
PATIENT: KRISHAN BURNHAM LOC: EN U#:[id number] AGE/SX: 56/M ROOM: RE07/04/[address]: Dr. Timur Abreu DO : 1965 BED: DIS: 07/04/2022 SPEC #: [id number] RECD: 07/05/22 14:59 STATUS: FLYNN REKeya #: [id number] BAIRON: 07/04/22 09:[address]: Timur Abreu DEPT: IMMUNOHISTOCHEMISTRY RECD BY: Stephanie Bentley ENTERED: 07/05/22 14:59 SP TYPE: IMMUNO OTHR DR: Chang Lugo, EXCELLENCE MANAGER-C Tissues: B - Stomach, NOS Procedures: H Pylori (initial) PHYSICIAN & INSTITUTION [place] [id number] SPECIMEN INFORMATION: Tissue Source: B ? Gastric body Clinical Info: Abdominal pain, constipation/diarrhea, GERD Specimen Number: [id number] CPT code: 99565 METHODOLOGY: Deparaffinized sections of prefer/formalin-fixed tissue or PAP/DQ stained slides are incubated with monoclonal/polyclonal antibodies/oligonucleotide probes. Localization is made via biotin free immunoperoxidase method. Appropriate controls are performed and reacted as expected. Results on target cell population are indicated in the following table: RESULTS: ANTIBODY / CLONE RESULT Block B H Pylori (polyclonal) negative These tests were developed and their performance characteristics determined by [facility]. They may not have been cleared or approved by the U.S. Food and Drug Administration. The FDA has determined that such clearance or approval is not necessary. The above immunohistochemical/dualISH markers are ordered and reviewed by the Pathologist. INTERPRETATION: B. Gastric body, biopsy: Negative for Helicobacter pylori organisms. SJ:salas 07/06/2022
[2022-07-04 09:35] LABS: Bedside Glucose 131 mg/dL (74-106)
--- NOTE | 2022-07-04 10:09 | OP.EGD_ITS ---
Patient Name: Arcenio Hernández Procedure Date: 07/04/2022 9:30 AM Date of : 1965 Age: 56 Procedure: Upper GI endoscopy Indications: Functional Dyspepsia, Heartburn Providers: Timur Abreu DO Referring MD: Timur Abreu DO Medicines: Monitored Anesthesia Care Patient Profile: This is a 56 year old male. Refer to note in patient chart for documentation of history and physical. Patient has symptoms of chronic global abdominal pain. Complications: No immediate complications. Procedure: Pre-Anesthesia Assessment: - Prior to the procedure, a History and Physical was performed, and patient medications and allergies were reviewed. The patient is competent. The risks and benefits of the procedure and the sedation options and risks were discussed with the patient. All questions were answered and informed consent was obtained. Patient identification and proposed procedure were verified by the physician in the pre-procedure area. Mental Status Examination: alert and oriented. Airway Examination: normal oropharyngeal airway and neck mobility. Respiratory Examination: clear to auscultation. CV Examination: normal. Prophylactic Antibiotics: The patient does not require prophylactic antibiotics. Prior Anticoagulants: The patient has taken no previous anticoagulant or antiplatelet agents. ASA Grade Assessment: II - A patient with mild systemic disease. After reviewing the risks and benefits, the patient was deemed in satisfactory condition to undergo the procedure. The anesthesia plan was to use monitored anesthesia care (MAC). Immediately prior to administration of medications, the patient was re-assessed for adequacy to receive sedatives. The heart rate, respiratory rate, oxygen saturations, blood pressure, adequacy of pulmonary ventilation, and response to care were monitored throughout the procedure. The physical status of the patient was re-assessed after the procedure. After obtaining informed consent, the endoscope was passed under direct vision. Throughout the procedure, the patient's blood pressure, pulse, and oxygen saturations were monitored continuously. The Colonoscope was introduced through the mouth, and advanced to the second part of duodenum. The upper GI endoscopy was accomplished without difficulty. The patient tolerated the procedure well. Scope In: 9:39:40 AM Scope Out: 9:45:31 AM Total Procedure Duration Time 0 hours 5 minutes 51 seconds Findings: Non-severe esophagitis with no bleeding was found 40 to 42 cm from the incisors. Biopsies were taken with a cold forceps for histology. Verification of patient identification for the specimen was done. Estimated blood loss was minimal. A mild Schatzki ring was found in the lower third of the esophagus. A small hiatal hernia was present. Diffuse moderate inflammation characterized by congestion (edema), erosions and erythema was found in the entire examined stomach. Biopsies were taken with a cold forceps for histology. Verification of patient identification for the specimen was done. Verification of patient identification for the specimen was done. Diffuse mildly erythematous mucosa without active bleeding and with no stigmata of bleeding was found in the duodenal bulb, in the first portion of the duodenum and in the second portion of the duodenum. Biopsies were taken with a cold forceps for histology. Verification of patient identification for the specimen was done. Estimated blood loss was minimal. Impression: - Non-severe reflux esophagitis. Biopsied. - Mild Schatzki ring. - Small hiatal hernia. - Bile gastritis. Biopsied. - Erythematous duodenopathy. Biopsied. Recommendation: - Discharge patient to home. - Resume previous diet. - Continue present medications. - Await pathology results. Procedure Code(s): --- Professional --- 20858, Esophagogastroduodenoscopy, flexible, transoral; with biopsy, single or multiple CPT copyright 2017 [employer]. All rights reserved. The codes documented in this report are preliminary and upon vocational training director review may be revised to meet current compliance requirements. Timur Abreu DO 07/04/2022 10:09:12 AM This report has been signed electronically. Number of Addenda: 0 Note Initiated On: 07/04/2022 9:30 AM
--- NOTE | 2022-07-04 10:10 | OP.CCLET_ITS ---
07/04/2022 Chang Lugo NP [address] [place] [address] [place] [address] Re : Upper GI endoscopy procedure for Arcenio Hernández Dear Mr. Lugo This procedure was performed on Monday, July 04, 2022. My impressions and recommendations are as follows: Impressions : - Non-severe reflux esophagitis. Biopsied. - Mild Schatzki ring. - Small hiatal hernia. - Bile gastritis. Biopsied. - Erythematous duodenopathy. Biopsied. Recommendations : - Discharge patient to home. - Resume previous diet. - Continue present medications. - Await pathology results. My findings are described in the full procedure note, which is enclosed. If I can be of further assistance, please feel free to contact me at . Sincerely, Timur Abreu, 07/04/2022 10:09:12 AM This report has been signed electronically.
--- NOTE | 2022-07-04 10:15 | OP.COLON_ITS ---
Patient Name: Arcenio Hernández Procedure Date: 07/04/2022 9:46 AM Date of : 1965 Age: 56 Procedure: Colonoscopy Indications: Generalized abdominal pain, Clinically significant diarrhea of unexplained origin Providers: Timur Abreu DO Referring MD: Timur Abreu DO Medicines: Monitored Anesthesia Care Patient Profile: This is a 56 year old male. Refer to note in patient chart for documentation of history and physical. Patient has symptoms of chronic global abdominal pain. Last Colonoscopy: within the past 3 years. Complications: No immediate complications. Procedure: Pre-Anesthesia Assessment: - Prior to the procedure, a History and Physical was performed, and patient medications and allergies were reviewed. The patient is competent. The risks and benefits of the procedure and the sedation options and risks were discussed with the patient. All questions were answered and informed consent was obtained. Patient identification and proposed procedure were verified by the physician in the pre-procedure area. Mental Status Examination: alert and oriented. Airway Examination: normal oropharyngeal airway and neck mobility. Respiratory Examination: clear to auscultation. CV Examination: normal. Prophylactic Antibiotics: The patient does not require prophylactic antibiotics. Prior Anticoagulants: The patient has taken no previous anticoagulant or antiplatelet agents. ASA Grade Assessment: II - A patient with mild systemic disease. After reviewing the risks and benefits, the patient was deemed in satisfactory condition to undergo the procedure. The anesthesia plan was to use monitored anesthesia care (MAC). Immediately prior to administration of medications, the patient was re-assessed for adequacy to receive sedatives. The heart rate, respiratory rate, oxygen saturations, blood pressure, adequacy of pulmonary ventilation, and response to care were monitored throughout the procedure. The physical status of the patient was re-assessed after the procedure. After I obtained informed consent, the scope was passed under direct vision. Throughout the procedure, the patient's blood pressure, pulse, and oxygen saturations were monitored continuously. The Colonoscope was introduced through the anus and advanced to the terminal ileum. The colonoscopy was performed without difficulty. The patient tolerated the procedure well. The quality of the bowel preparation was adequate. Scope In: 9:47:15 AM Scope Withdrawal Time 0 hours 14 minutes 41 seconds Scope Out: 10:03:35 AM Total Procedure Duration Time 0 hours 16 minutes 20 seconds Findings: The perianal and digital rectal examinations were normal. A 5 mm polyp was found in the sigmoid colon. The polyp was sessile. The polyp was removed with a cold snare. Resection and retrieval were complete. Verification of patient identification for the specimen was done. Estimated blood loss was minimal. A few small-mouthed diverticula were found in the recto-sigmoid colon and sigmoid colon. There was evidence of a prior end-to-end colo-colonic anastomosis in the recto-sigmoid colon. This was patent and was characterized by healthy appearing mucosa. An area of mildly congested mucosa was found in the entire colon. Biopsies were taken with a cold forceps for histology. Verification of patient identification for the specimen was done. Estimated blood loss was minimal. The terminal ileum appeared normal. Biopsies were taken with a cold forceps for histology. Verification of patient identification for the specimen was done. Estimated blood loss was minimal. Impression: - One 5 mm polyp in the sigmoid colon, removed with a cold snare. Resected and retrieved. - Diverticulosis in the recto-sigmoid colon and in the sigmoid colon. - Patent end-to-end colo-colonic anastomosis, characterized by healthy appearing mucosa. - Congested mucosa in the entire examined colon. Biopsied. - The examined portion of the ileum was normal. Biopsied. Recommendation: - Discharge patient to home. - Resume previous diet. - Continue present medications. - Await pathology results. - Repeat colonoscopy in 5 years for surveillance. Procedure Code(s): --- Professional --- 05223, Colonoscopy, flexible; with removal of tumor(s), polyp(s), or other lesion(s) by snare technique 58375, 59, Colonoscopy, flexible; with biopsy, single or multiple CPT copyright 2017 [employer]. All rights reserved. The codes documented in this report are preliminary and upon police judge review may be revised to meet current compliance requirements. Timur Abreu DO 07/04/2022 10:14:59 AM This report has been signed electronically. Number of Addenda: 0 Note Initiated On: 07/04/2022 9:46 AM
--- NOTE | 2022-07-04 10:16 | OP.CCLET_ITS ---
07/04/2022 Chang Lugo, QUYEN [address] [place] [address] [place] [address] Re : Colonoscopy procedure for Arcenio Edgar Dear Mr. Lugo This procedure was performed on Monday, July 04, 2022. My impressions and recommendations are as follows: Impressions : - One 5 mm polyp in the sigmoid colon, removed with a cold snare. Resected and retrieved. - Diverticulosis in the recto-sigmoid colon and in the sigmoid colon. - Patent end-to-end colo-colonic anastomosis, characterized by healthy appearing mucosa. - Congested mucosa in the entire examined colon. Biopsied. - The examined portion of the ileum was normal. Biopsied. Recommendations : - Discharge patient to home. - Resume previous diet. - Continue present medications. - Await pathology results. - Repeat colonoscopy in 5 years for surveillance. My findings are described in the full procedure note, which is enclosed. If I can be of further assistance, please feel free to contact me at . Sincerely, Timur Abreu DO 07/04/2022 10:14:59 AM This report has been signed electronically.
== END 2022-07-04 10:44 | disposition home or self-care (01) ==
LOC: EN 08:25 → AC 08:27
PROVIDERS: PCP Nurse Practitioner Family; Referring Provider Nurse Practitioner Family; Visit Provider Internal Medicine Gastroenterology
PROC: 0DJD8ZZ Inspection of Lower Intestinal Tract, Via Natural or Artificial Opening Endoscopic (ICD-10-PCS; CPT 45378; principal; 2022-07-04 09:25)
DX: K44.9 Diaphragmatic hernia without obstruction or gangrene (principal); E11.9 Type 2 diabetes mellitus without complications; K57.30 Diverticulosis of large intestine without perforation or abscess without bleeding; K21.00 Gastro-esophageal reflux disease with esophagitis, without bleeding; K29.70 Gastritis, unspecified, without bleeding; Z87.891 Personal history of nicotine dependence; K63.5 Polyp of colon; K22.2 Esophageal obstruction; Z98.0 Intestinal bypass and anastomosis status; I10 Essential (primary) hypertension; Z79.899 Other long term (current) drug therapy
CPT/HCPCS: 45380; 45385; 43239; 82962; 88305; 88313; 88342; J7120; J2405

== ENCOUNTER 2022-08-06 18:52 | Emergency (ER) | payer OTHER, SELFPAY ==
[2022-08-06 18:52] VITALS: BP 157/87; PULSE 96; RESP 16; TEMP 36.9; O2SAT 99; BMI 33.3
--- NOTE | 2022-08-06 19:30 | RAD_ITS ---
STUDY: X-RAY - THORACIC SPINE REASON FOR EXAM: Male, 57 years old. fall, pain TECHNIQUE: XR Spine Thoracic 3 Views COMPARISON: None FINDINGS: Normal kyphosis of the thoracic spine. There is no substantial scoliosis. There is multilevel endplate spondylosis of the thoracic vertebrae. There is multilevel disc space narrowing of the thoracic spine. The soft tissue structures are unremarkable. RAD/Thoracic Spine 3 Views IMPRESSION: There are degenerative changes as noted above. Electronically Signed: Rito Thrasher MD at 19:58 EDT ,
--- NOTE | 2022-08-06 19:30 | RAD_ITS ---
STUDY: X-RAY - LUMBAR SPINE REASON FOR EXAM: Male, 57 years old. fall, pain TECHNIQUE: XR Spine Lumbar 2 or 3 Views COMPARISON: None FINDINGS: Normal lumbar lordosis. There is no substantial scoliosis. There is a normal alignment of the vertebrae. There is multilevel endplate spondylosis of the lumbar vertebrae. There is multi-level degenerative disc disease with multi-level disc space narrowing. There are atherosclerotic vascular calcifications. The soft tissue structures are unremarkable. RAD/Lumbar Spine 2 or 3 Views IMPRESSION: Degenerative changes of the spine, as detailed above. Electronically Signed: Rito Thrasher MD at 20:03 EDT ,
--- NOTE | 2022-08-06 19:49 | EDS_ITS ---
HPI <TAD Bedoya - Last Filed: 08/06/22 20:37> History of Present Illness Chief Complaint: Back Narrative Narrative: Patient presenting today due to back pain that he has had since this evening. He reports that he was outside when he fell backwards and hit his back against an upward projection of the concrete. He reports that he falls often due to his history of Parkinson's. He denies any fever, bowel/bladder incontinence, saddle paresthesia. He did not hit his head nor did he lose consciousness. PFSH <TAD Bedoya - Last Filed: 08/06/22 20:37> [facility] Medical History Abdominal pain Acute cerebrovascular accident (CVA) due to ischemia Borderline type 2 diabetes mellitus Constipation COVID-19 vaccine series completed CPAP (continuous positive airway pressure) dependence Depression with anxiety Diabetes Diverticulitis Former smoker GERD (gastroesophageal reflux disease) History of hiatal hernia Hyperlipidemia Hypertension Lupus Sleep apnea Type 2 diabetes mellitus Wears glasses Home Medications melatonin 3 mg tablet 9 mg PO QHS SLEEP 05/12/19 [History Last Taken 11/29/21] trazodone 100 mg tablet 200 mg PO QHS SLEEP 05/12/19 [History Last Taken 11/29/21] famotidine 20 mg tablet 20 mg PO BID GERD 02/17/20 [History Last Taken 07/04/22 06:00] carbidopa ER 50 mg-levodopa 200 mg tablet,extended release 1 tab PO QHS PARKINSONS 02/16/21 [History Last Taken 11/29/21] clonazepam 0.5 mg tablet 0.5 mg PO QHS 02/16/21 [History Last Taken 11/30/21] hydrochlorothiazide 12.5 mg tablet 12.5 mg PO QAM #90 tabs 02/16/21 [Rx Last Taken 11/30/21] levodopa 42 mg capsule with inhalation device (Inbrija) 84 mg inhalation TID 1 04/19/20 [History Last Taken 11/30/21] propranolol 10 mg tablet 10 mg PO TID 02/16/21 [History Last Taken 11/30/21] carbidopa ER 36.25 mg-levodopa 145 mg capsule,extended release (Rytary) 1 cap PO 4X/DAY 11/30/21 [History Last Taken Unknown] cholecalciferol (vitamin D3) 50 mcg (2,000 unit) tablet 50 mcg PO DAILY supplement 11/30/21 [History Last Taken 11/30/21] diltiazem HCl 60 mg tablet 60 mg PO BID 11/30/21 [History Last Taken 11/30/21] empagliflozin 25 mg tablet (Jardiance) 12.5 mg PO DAILY 11/30/21 [History Last Taken 11/30/21] omega-3 fatty acids 1,000 mg PO DAILY 11/30/21 [History Last Taken 11/30/21] pantoprazole 40 mg tablet,delayed release (Protonix) 80 mg PO BID gerd 11/30/21 [History Last Taken 07/04/22 06:00] polyethylene glycol 3350 17 gram oral powder packet 17 g PO QHS 11/30/21 [History Last Taken 11/29/21] prazosin 5 mg capsule 10 mg PO QHS 11/30/21 [History Last Taken 11/29/21] rosuvastatin 20 mg tablet 20 mg PO QHS 11/30/21 [History Last Taken 11/29/21] testosterone cypionate 200 mg/mL intramuscular oil 200 mg IM Q14D 11/30/21 [History Last Taken 1 Week Ago ~11/23/21] clopidogrel 75 mg tablet 75 mg PO DAILY #21 tabs 12/02/21 [Rx Last Taken Unknown] ondansetron 4 mg disintegrating tablet 4 mg PO Q8H PRN nausea and vomiting #30 tabs 01/13/22 [Rx Last Taken Unknown] dicyclomine 20 mg tablet 20 mg PO BID #20 tabs 01/14/22 [Rx Last Taken Unknown] sucralfate 1 gram tablet (Carafate) 1 g PO Q6H #28 tabs 03/24/22 [Rx Last Taken Unknown] duloxetine 60 mg capsule,delayed release 60 mg PO DAILY 03/29/22 [History Last Taken Unknown] Allergy/AdvReac Type Severity Reaction Status Date / Time No Known Allergies Allergy Verified 08/06/22 18:53 Family History Mother Heart disease Hypertension High cholesterol Cancer skin cancer Father Heart disease High cholesterol Hypertension CVA (cerebral vascular accident) Surgical History History of appendectomy History of colectomy (~02/2020) History of laparoscopic cholecystectomy S/P arthroscopic surgery of left knee Social History household members: spouse number of children: 5 current occupational status: unemployed Smoking Status: Former smoker how long ago did patient quit smoking: Quit ~ 15 years prior, smoked socially only. alcohol intake: never substance use type: does not use ROS <TAD Bedoya - Last Filed: 08/06/22 20:37> ROS ED Constitutional Constitutional ED: Denies chills or fever(s) Cardiovascular Cardiovascular: Denies chest pain Respiratory/Chest Respiratory/Chest: Denies cough or dyspnea Gastrointestinal Gastrointestinal: Denies abdominal pain, nausea or vomiting Genitourinary Genitourinary ED: Denies dysuria, hematuria or urinary frequency Musculoskeletal Musculoskeletal: Reports back pain Integumentary Denies abscess, Abrasions or rash Neurologic Neurologic: Denies paresthesias or weakness EXAM <TAD Bedoya - Last Filed: 08/06/22 20:37> Physical Exam Const Vital Signs: 08/06/22 18:52 Temperature 98.4 F Temperature Source Temporal Pulse Rate 96 Respiratory Rate 16 Blood Pressure 157/87 H Blood Pressure Mean 110 Pulse Ox 99 Oxygen Delivery Method Room Air Positive well nourished, well developed and no apparent distress General Appearance ED: well developed HEENT Reports normocephalic and head/scalp atraumatic Mouth ED: Yes moist mucous membranes normal Eyes PERRL and EOMs intact bilaterally Neck full ROM and supple Chest Wall inspection of chest normal Resp normal respiratory effort and clear to auscultation bilaterally Cardio regular rate and regular rhythm GI soft to palpation, non-tender, non-distended and no masses Back/Spine normal ROM and normal to inspection Back/Spine Narrative: Tenderness to the thoracic and lumbar spine. No step-off. Range of motion in the back intact. Extremity normal to inspection and full ROM Neuro oriented x3, CN's II-XII intact bilaterally, moves all extremities, no focal motor deficits and no sensory deficits noted Sensorium / Orientation: awake and alert Motor Exam: strength 5/5 throughout Psych mental status grossly normal and thought process normal Skin no rashes or lesions noted and no wounds <Dr. Kev Izaguirre DO - Last Filed: 08/06/22 20:41> Physical Exam Const Vital Signs: 08/06/22 18:52 Temperature 98.4 F Temperature Source Temporal Pulse Rate 96 Respiratory Rate 16 Blood Pressure 157/87 H Blood Pressure Mean 110 Pulse Ox 99 Oxygen Delivery Method Room Air [facility] <TAD Bedoya - Last Filed: 08/06/22 20:37> [facility] Narrative Medical decision making narrative: Patient presenting today after a mechanical fall that occurred this evening. he is complaining of pain to his back and has tenderness along the thoracic and lumbar spine. Patient also has paraspinal tenderness to the thoracic and lumbar spine on both the left and right side that is worse on the left. X-ray will be obtained to rule out fracture/ dislocation and is negative for any acute findings. Patient declined anything for pain at this time, I have encouraged him to use Tylenol for his pain and to ice the area. He will be discharged home in stable condition and is comfortable with plan. He is to follow-up with his PCP. Radiography Diagnostic Testing: Clinical Impression(s) from Imaging Studies Lumbar Spine X-Ray 08/06/22 19:30 IMPRESSION: Degenerative changes of the spine, as detailed above. Electronically Signed: Rito Thrasher MD at 20:03 EDT , Thoracic Spine X-Ray 08/06/22 19:30 IMPRESSION: There are degenerative changes as noted above. Electronically Signed: Rito Thrsaher MD at 19:58 EDT , <Dr. Kev Izaguirre, DO - Last Filed: 08/06/22 20:41> [facility] Radiography Diagnostic Testing: Clinical Impression(s) from Imaging Studies Lumbar Spine X-Ray 08/06/22 19:30 IMPRESSION: Degenerative changes of the spine, as detailed above. Electronically Signed: Rito Thrasher MD at 20:03 EDT , Thoracic Spine X-Ray 08/06/22 19:30 IMPRESSION: There are degenerative changes as noted above. Electronically Signed: Rito Thrasher MD at 19:58 EDT , Treatment and Re-Evaluation Narrative: I have personally performed a face to face assessment of the patient and have reviewed the KRYSTAL Note. I performed a substantive portion of the visit including all aspects of the following. My latif findings include: History: Patient presents with back pain that began after a fall today. Patient states he has a history of Parkinson's and falls frequently. Patient states he fell back onto the edge of a concrete curb. Patient denies any head injury or loss of consciousness. Patient states his pain is over his thoracic and lumbar area. Patient denies any radiation of the pain. Patient denies any paresthesias or weakness. Patient denies any other injuries. Exam: Vital signs are stable. Patient is afebrile. Patient is in no acute distress. Musculoskeletal exam reveals tenderness over the thoracic and lumbar spine. There is also tenderness over the paraspinal muscles. There is no bony crepitance or step-off. Range of motion was slightly limited in all motions of the thoracic and lumbar spine secondary to pain. Strength is 5/5 bilaterally in the upper and lower extremities. There are no sensory deficits noted. Medical Decision Making: Differential diagnosis includes thoracic strain, thoracic fracture, lumbar strain, and lumbar fracture. X-rays of the thoracic spine and lumbar spine will be obtained to assess for fracture. X-rays of the thoracic spine were obtained. There are 3 views. On my independent interpretation, there is no acute fracture noted. There is no spondylolisthesis noted. There are some degenerative changes noted. Radiologist also interpreted the x-ray and agrees. X-rays of the lumbar spine were obtained. There are 2 views. On my independent interpretation, there is no acute fracture or spondylolisthesis. There are some degenerative changes noted. Appraisal Specialist also interpreted the x-rays and agrees. Patient was advised of his findings. Patient instructed to use ice to the area. Patient instructed take Tylenol or ibuprofen as needed for pain. Patient was instructed to follow-up with his primary care physician in 5 to 7 days. Patient understood and was agreeable with the plan. All questions were answered. Discharge Plan Triage Chief Complaint: Back ED Midlevel Provider: Sumaya Coles ED Provider: Kev Izaguirre Dx/Rx/DC Orders Clinical Impression: Back contusion, Parkinsons disease, Fall Instructions: ED Back Contusion Prescriptions: No Action Inbrija 42 mg capsule, w/inhalation device 84 mg inhalation TID clonazepam 0.5 mg tablet 0.5 mg PO QHS propranolol 10 mg tablet 10 mg PO TID hydrochlorothiazide 12.5 mg tablet 12.5 mg PO QAM Qty: 90 1RF ondansetron 4 mg tablet,disintegrating 4 mg PO Q8H PRN (Reason: nausea and vomiting) Qty: 30 0RF duloxetine 60 mg capsule,delayed release(DR/EC) 60 mg PO DAILY melatonin 3 MG tablet 9 mg PO QHS trazodone 100 MG tablet 200 mg PO QHS famotidine 20 MG tablet 20 mg PO BID carbidopa-levodopa 50-200 mg tablet extended release 1 tab PO QHS polyethylene glycol 3350 17 gram Powder In Packet 17 g PO QHS prazosin 5 mg Capsule 10 mg PO QHS testosterone cypionate 200 mg/mL Oil 200 mg IM Q14D diltiazem HCl 60 mg Tablet 60 mg PO BID omega-3 fatty acids Capsule 1,000 mg PO DAILY rosuvastatin 20 mg Tablet 20 mg PO QHS cholecalciferol (vitamin D3) 50 mcg (2,000 unit) Tablet 50 mcg PO DAILY Jardiance 25 mg Tablet 12.5 mg PO DAILY Rytary 36.25-145 mg Capsule, Extended Release 1 cap PO 4X/DAY Rx Instructions: divide evenly over waking hours pantoprazole [Protonix] 40 mg tablet,delayed release (DR/EC) 80 mg PO BID clopidogrel 75 mg Tablet 75 mg PO DAILY Qty: 21 0RF dicyclomine 20 mg tablet 20 mg PO BID Qty: 20 0RF sucralfate [Carafate] 1 gram tablet 1 g PO Q6H Qty: 28 0RF [facility] [Primary Care Provider] - Activity Restrictions/Additional Instructions: Alternate Tylenol and ibuprofen for your pain, return for any worsening of your symptoms. Disposition Disposition: Home, Self Care
[2022-08-06 20:48] VITALS: RESP 16
== END 2022-08-06 20:50 | disposition home or self-care (01) ==
PROVIDERS: Emergency Provider Emergency Medicine; Visit Provider Emergency Medicine
DX: S20.229A Contusion of unspecified back wall of thorax, initial encounter (principal); G20 Parkinson's disease; E11.9 Type 2 diabetes mellitus without complications; W01.198A Fall on same level from slipping, tripping and stumbling with subsequent striking against other object, initial encounter; I10 Essential (primary) hypertension; E78.5 Hyperlipidemia, unspecified; Z79.02 Long term (current) use of antithrombotics/antiplatelets; Z79.84 Long term (current) use of oral hypoglycemic drugs; Z79.899 Other long term (current) drug therapy; Z86.73 Personal history of transient ischemic attack (TIA), and cerebral infarction without residual deficits; Z87.891 Personal history of nicotine dependence
CPT/HCPCS: 72072; 72100; 99282

== ENCOUNTER 2022-10-18 11:15 | Outpatient (RCR) | payer OTHER, SELFPAY ==
--- NOTE | 2022-10-18 12:16 | HP.PTEVAL_ITS ---
Patient's Visit Information Visit Information Visit Information: KRISHAN BURNHAM is a 57 year old M referred to Physical Therapy by ALEN LOPES with a diagnosis of back pain and PD. Date of Evaluation: 10/18/22 Physical Therapist: NATALIE Napier Visit Plan Frequency: 2x /Week Duration: 2 Months Plan: 2X/ week for 8 weeks for AT for neutral spine core stability, deep water hang (if able), LE strength, opp arm and leg dual tasking, balance with HEP Subjective Subjective: He has a bugling disc and fx of spine and barrowing of the spine and a cyst. He fell and fx his spine about 6 months ago. He has constant back pain. He has no shooting leg pain and no weakness. No N&T. He has PD (dx in 2010). He tries to walk and does the BIG program at home. He falls at least once a month. He freezes especially when turning and then he falls. He has PT for PD at [facility]. He wants to do water therapy as he has tried land therapy before and it did not work. He has not had any pain management. He takes Tylenol as needed. He has stairs to the basement with a railing. He has a walk in shower. He is retired from the [employer]. Pain back pain: Pain Intensity (Out of 10): 4 Objective Objective: Gait: Pt walks with decreased stride length, decrease arm swing, decrease trunk rotation Standing opp arm and leg: pt able to do approx 3-4 on each side and then he reverts back to same side. Trunk AROM: flexion 75%, ext 25%, SB B 75% and Rot B 50% MMT R hip flex 13.1 and L 15.8 R knee ext 17.7 and L 13.9 R knee flex 8.5 and L 8.6 FGA: 20 Patella DTR 2+/3 B SLUMP TEST + B for pain in the back. Balance/Special Test Scores Functional Gait Assessment Score: 20 % Disability: 33.3400 Oswestry Low Back Score: 11 Goals Goal 1:: I HEP Goal Time Frame: 6-8 Weeks Goal 2:: Increase trunk AROM (at the time of the eval: Trunk AROM: flexion 75%, ext 25%, SB B 75% and Rot B 50%) Goal Time Frame: 6-8 Weeks Goal 3:: Increase LE strength (at the time of the eval: R hip flex 13.1 and L 15.8 R knee ext 17.7 and L 13.9 R knee flex 8.5 and L 8.6) Goal Time Frame: 6-8 Weeks Rehabilitation Potential Rehabilitation Potential: Good Anticipated Interventions Patient/Client Instruction: Educate patient on: Condition and Plan of Care For the Purpose of:: To decrease pain, To increase ROM, To improve nutrient delivery to tissue, To improve muscle performance and motor function, To improve ability to perform ADL's, To increase tolerance to activity/condition/position, To improve performance and independence with ADL's, To decrease level of supervision to perform tasks, To improve ability of physical actions for home/community/work/leisure, To improve gait and locomotor functions, To improve health of tissue, To increase flexibility/ROM, To improve endurance and To improve balance Therapeutic Exercise to Include: Strength training, Endurance training, Balance training, Postural training, Flexibilty training, Gait and locomotor training, Neuromotor development, In an aquatic setting, Active ROM, Dynamic Lumbar Stabilization and Scapular Strength/Stabilization For the Purpose of:: To decrease pain, To increase ROM, To improve nutrient delivery to tissue, To improve muscle performance and motor function, To improve ability to perform ADL's, To increase tolerance to activity/condition/position, To improve performance and independence with ADL's, To decrease level of supervision to perform tasks, To improve ability of physical actions for home/community/work/leisure, To improve gait and locomotor functions, To improve health of tissue, To decrease soft tissue restriction, To increase flexibility/ROM, To improve endurance, To improve balance and To improve safety with gait Functional Training to Include: Gait training For the Purpose of:: To improve safety with gait Text: Thank you for the opportunity to evaluate your patient. For Medicare and Medicare HMO plans, please review the plan of care and approve it. It will need to be FAXED BACK to us at [phone] for Medicare purposes. For Medicare only, by signing this I certify the plan of care. Please let me know if there are questions or concerns regarding this plan of care. Physician Signature: Date:
--- NOTE | 2022-11-29 08:11 | HP.PT.NRP(2) ---
Patient Information Patient Information: KRISHAN BURNHAM was seen in my office for initial evaluation on . The following Plan of Care was established for this patient: Last Seen Last Seen: This patient was last seen in our office . Pertinent comments regarding their Physical therapy will appear below: At this point I will be discontinuing this patient from physical therapy. I would be happy to see this patient again in the future if found appropriate by the physician. Thank you! Meryl Solis, MPT
== END 2022-10-18 19:00 | disposition home or self-care (01) ==
LOC: PT 11:15
DX: M54.9 Dorsalgia, unspecified (principal); G20 Parkinson's disease
CPT/HCPCS: 97161

== ENCOUNTER 2023-01-10 17:28 | Inpatient (IN) | payer OTHER, SELFPAY ==
[2023-01-10] VITALS (22 sets, daily range): BP systolic 127–165; BP diastolic 71–87; PULSE 54–98; RESP 10–15; TEMP 36.2–37; O2SAT 95–100; BMI 33.3; BMI 32.8; BMI 32.6
--- NOTE | 2023-01-10 17:34 | EKG12_ITS ---
Test Reason : POSS STROKE Blood Pressure : / mmHG Vent. Rate : 070 BPM Atrial Rate : 070 BPM P-R Int : 216 ms QRS Dur : 094 ms QT Int : 386 ms P-R-T Axes : 024 -26 029 degrees QTc Int : 416 ms Sinus rhythm with 1st degree A-V block Minimal voltage criteria for LVH, may be normal variant ( R in aVL ) Inferior infarct , age undetermined Abnormal ECG Confirmed by SELMA REDD, STEVE ([id number]), medical transcription editor AUBREE MIXON ([id number]) on 01/18/2023 10:39:18 AM Referred By: Confirmed By:STEVE HAHN MD
--- NOTE | 2023-01-10 17:34 | CT_ITS ---
EXAM: CT angiogram brain. HISTORY: Neuro deficit, acute, stroke suspected TECHNIQUE: CTA Head and Neck Stroke W/ Contrast (and W/O if performed). Multiplanar reconstructions and 3-D reformats were obtained. A radiation dose optimization technique was used for this scan. COMPARISON: CTA November 30, 2021. LIMITATIONS: Motion artifact. DISTAL CAROTID ARTERIES: No significant stenosis. ANTERIOR CEREBRAL ARTERIES: No significant stenosis. MIDDLE CEREBRAL ARTERIES: No significant stenosis. POSTERIOR CEREBRAL ARTERIES: No significant stenosis. BASILAR ARTERY: No significant stenosis. OTHER: The maxillary sinuses are completely opacified bilaterally.. CONCLUSION: No aneurysm or significant stenosis. EXAM: CT angiogram neck. HISTORY: Neuro deficit, acute, stroke suspected TECHNIQUE: CTA Head and Neck Stroke W/ Contrast (and W/O if performed). Multiplanar reconstructions and 3-D reformats were obtained. A radiation dose optimization technique was used for this scan. COMPARISON: CTA November 30, 2021. LIMITATIONS: Motion artifact. CAROTID ARTERIES: No significant stenosis. VERTEBRAL ARTERIES: No significant stenosis. BONES/SOFT TISSUES: No acute fracture. OTHER: None. CONCLUSION: No significant stenosis. N.B. : The above Results were Read Back by Steven Aiken MD to Flavio Concepcion MD, and understanding confirmed on 01/10/2023 18:15:25 (ET). Electronically Signed: Steven Aiken MD at 18:15 EST , CT/STROKE CTA Head AND Neck W/Con IMPRESSION: undefined
--- NOTE | 2023-01-10 17:35 | CT_ITS ---
We are attempting to reach an attending provider to discuss findings. An addendum with communication details will be sent when the communication is complete. EXAMINATION : Head CT w/out contrast HISTORY : Neuro deficit, acute, stroke suspected COMPARISON : None. TECHNIQUE : Multiple contiguous axial images were obtained from the skull base to the vertex without intravenous contrast. A radiation dose optimization technique was used for this scan. FINDINGS : The ventricles and sulci are normal in size. There is no evidence for acute intracranial hemorrhage, mass effect, or midline shift. There is no extra-axial fluid collection. There is normal huerta-white differentiation, without CT evidence of acute ischemia or infarct. The skull base and calvarium are unremarkable. The orbits are unremarkable. The paranasal sinuses are clear. The mastoid air cells are well-aerated. The soft tissues are unremarkable. CT/STROKE Brain/Head without Cont IMPRESSION: No acute intracranial abnormality. Electronically Signed: Ja Dillon MD at 17:49 EST ,
--- NOTE | 2023-01-10 17:38 | ED.RN ---
[facility] LINE CALLED AT [id number]
--- NOTE | 2023-01-10 17:38 | ED.VIS.STROK ---
HPI History of Present Illness Chief Complaint: Stroke Alert Detail of Chief Complaint: Presents with strokelike symptoms Informant: patient and spouse/S.O. Onset/Context/Timing Onset: Today (1644) Context: Sudden Onset Timing: Continuous Quality and Location: Positive for Right Facial Droop, Right Arm Parasthesia, Right Leg Parasthesia, Right Arm Weakness and Right Leg Weakness Onset: 1644 Current Severity: Mild Maximum Severity: Mild Worsened by: Nothing Relieved by: Nothing Associated Symptoms Associated Symptoms: Positive for Chest Pain; Negative for Headache, Nausea or Vomiting Narrative Narrative: Patient is a 57-year-old gentleman with past history of hypertension, hyperlipidemia, type 2 diabetes, GERD, Parkinson disease who presents with strokelike symptoms that started at 1644. He has altered sensation and weakness on the right side. noted slurring of his words. He denies visual symptoms. He denies problems with his balance. He denies prior history of TIA or CVA. He has had intermittent chest pain since Monday. He denies dyspnea or dyspnea on exertion. [place] orthopnea or PND. He has no contraindication anticoagulation. He denies black or maroon-colored stool. Review of prior records indicates the patient has a prior stroke. Will clarify with . Prior similar symptoms: No Recent Illness/Hospitalization: No PFSH PFSH Medical History Abdominal pain Acute cerebrovascular accident (CVA) due to ischemia Borderline type 2 diabetes mellitus Constipation COVID-19 vaccine series completed CPAP (continuous positive airway pressure) dependence Depression with anxiety Diabetes Diverticulitis Former smoker GERD (gastroesophageal reflux disease) History of hiatal hernia Hyperlipidemia Hypertension Lupus Sleep apnea Type 2 diabetes mellitus Wears glasses Home Medications melatonin 3 mg tablet 9 mg PO QHS SLEEP 05/12/19 [History Last Taken 11/29/21] trazodone 100 mg tablet 200 mg PO QHS SLEEP 05/12/19 [History Last Taken 11/29/21] famotidine 20 mg tablet 20 mg PO BID GERD 02/17/20 [History Last Taken 07/04/22 06:00] carbidopa ER 50 mg-levodopa 200 mg tablet,extended release 1 tab PO QHS PARKINSONS 02/16/21 [History Last Taken 11/29/21] clonazepam 0.5 mg tablet 0.5 mg PO QHS 02/16/21 [History Last Taken 11/30/21] hydrochlorothiazide 12.5 mg tablet 12.5 mg PO QAM #90 tabs 02/16/21 [Rx Last Taken 11/30/21] levodopa 42 mg capsule with inhalation device (Inbrija) 84 mg inhalation TID 02/16/21 [History Last Taken 11/30/21] propranolol 10 mg tablet 10 mg PO TID 02/16/21 [History Last Taken 11/30/21] carbidopa ER 36.25 mg-levodopa 145 mg capsule,extended release (Rytary) 1 cap PO 4X/DAY 11/30/21 [History Last Taken Unknown] cholecalciferol (vitamin D3) 50 mcg (2,000 unit) tablet 50 mcg PO DAILY supplement 11/30/21 [History Last Taken 11/30/21] diltiazem HCl 60 mg tablet 60 mg PO BID 11/30/21 [History Last Taken 11/30/21] empagliflozin 25 mg tablet (Jardiance) 12.5 mg PO DAILY 11/30/21 [History Last Taken 11/30/21] omega-3 fatty acids 1,000 mg PO DAILY 11/30/21 [History Last Taken 11/30/21] pantoprazole 40 mg tablet,delayed release (Protonix) 80 mg PO BID gerd 11/30/21 [History Last Taken 07/04/22 06:00] polyethylene glycol 3350 17 gram oral powder packet 17 g PO QHS 11/30/21 [History Last Taken 11/29/21] prazosin 5 mg capsule 10 mg PO QHS 11/30/21 [History Last Taken 11/29/21] rosuvastatin 20 mg tablet 20 mg PO QHS 11/30/21 [History Last Taken 11/29/21] testosterone cypionate 200 mg/mL intramuscular oil 200 mg IM Q14D 11/30/21 [History Last Taken 1 Week Ago ~11/23/21] clopidogrel 75 mg tablet 75 mg PO DAILY #21 tabs 12/02/21 [Rx Last Taken Unknown] ondansetron 4 mg disintegrating tablet 4 mg PO Q8H PRN nausea and vomiting #30 tabs 01/13/22 [Rx Last Taken Unknown] dicyclomine 20 mg tablet 20 mg PO BID #20 tabs 01/14/22 [Rx Last Taken Unknown] sucralfate 1 gram tablet (Carafate) 1 g PO Q6H #28 tabs 03/24/22 [Rx Last Taken Unknown] duloxetine 60 mg capsule,delayed release 60 mg PO DAILY 03/29/22 [History Last Taken Unknown] Allergy/AdvReac Type Severity Reaction Status Date / Time No Known Allergies Allergy Verified 01/10/23 17:36 Family History Mother Heart disease Hypertension High cholesterol Cancer skin cancer Father Heart disease High cholesterol Hypertension CVA (cerebral vascular accident) Surgical History History of appendectomy History of colectomy (~02/2020) History of laparoscopic cholecystectomy S/P arthroscopic surgery of left knee Social History household members: spouse number of children: 5 current occupational status: unemployed Smoking Status: Former smoker how long ago did patient quit smoking: Quit ~ 15 years prior, smoked socially only. alcohol intake: never substance use type: does not use ROS ROS ED Constitutional Constitutional ED: Denies chills, fever(s), subjective, sweats or weakness Eyes Eyes: Denies blurry vision, change in vision or diplopia ENT ENT ED: Denies ear pain, rhinorrhea or sore throat Cardiovascular Cardiovascular: Reports chest pain; Denies palpitations, paroxysmal nocturnal dyspnea or racing heartbeat Respiratory/Chest Respiratory/Chest: Denies cough, dyspnea, dyspnea on exertion or paroxysmal nocturnal dyspnea Gastrointestinal Gastrointestinal: Denies abdominal pain, melena, nausea or vomiting Genitourinary Genitourinary ED: Denies dysuria, hematuria or urinary frequency Musculoskeletal Musculoskeletal: Denies arthralgias, back pain, myalgias or neck pain Integumentary Denies abscess or rash Neurologic Neurologic: Reports paresthesias and weakness; Denies headache(s) Psychiatric Psychiatric: Reports depression; Denies anxiety Endocrine Endocrinology: Denies polydipsia, polyphagia or polyuria Hematologic/Lymphatic Hematologic/Lymphatic: Denies easy bleeding or easy bruising EXAM Physical Exam Const Vital Signs: 01/10/23 17:33 01/10/23 17:42 01/10/23 17:50 Temperature 98.6 F Temperature Source Temporal Pulse Rate 98 Respiratory Rate 14 14 Blood Pressure 156/81 H 165/87 H Blood Pressure Mean 106 113 Blood Pressure Source Blood Pressure Position Blood Pressure Location Pulse Ox 100 Oxygen Delivery Method Room Air Room Air 01/10/23 18:00 01/10/23 18:23 01/10/23 18:04 Temperature Temperature Source Pulse Rate 64 Respiratory Rate 15 Blood Pressure 165/75 H 142/71 H 148/72 H Blood Pressure Mean 105 97 Blood Pressure Source Blood Pressure Position Blood Pressure Location Pulse Ox 95 Oxygen Delivery Method Room Air 01/10/23 18:27 Temperature Temperature Source Pulse Rate 70 Respiratory Rate 15 Blood Pressure 142/71 H Blood Pressure Mean 94 Blood Pressure Source Monitor Blood Pressure Position Sitting Blood Pressure Location Left Arm Pulse Ox 95 Oxygen Delivery Method Room Air Positive well nourished, well developed and obese Constitutional Narrative: She has a flat affect question masked face which may be due to Parkinson's and reason he does not appear alert. He is awake. He does not answer questions quickly but he does answer them correctly. General Appearance ED: well developed and NAD Nutritional Appearance: obese HEENT Reports moist mucous membranes atraumatic Eyes PERRL and EOMs intact bilaterally Eyes Narrative: There is no nystagmus. There is no visual field cut. General Eye ED: Negative for pale conjunctiva or scleral icterus Neck no lymphadenopathy, supple and no JVD Chest Wall inspection of chest normal and palpation of chest normal Resp normal respiratory effort and clear to auscultation bilaterally Cardio no murmurs Rate: regular rate Rhythm: regular rhythm Heart Sounds: S1 normal and S2 normal GI normal to inspection, nondistended, normoactive bowel sounds, soft to palpation, non-tender and non-distended Back/Spine no CVA tenderness Extremity normal to inspection General Extremety ED: Negative for deformity, edema or tenderness General Extremity: Negative for deformity or edema Neuro oriented x3, No CN's II-XII intact bilaterally and No no sensory deficits noted [place] Coma Scale: document GCS findings Spontaneous Obeys Commands Oriented 15 Sensorium / Orientation: Negative for alert Speech: Negative for speech normal Motor Exam: Negative for strength 5/5 throughout Psych Mood & Affect: depressed Skin General Skin Exam: Negative for jaundice Lesions: no lesions Rashes: no rashes NIHSS NIHSS Initial: 1a Level of Consciousness: 1 1b LOC Questions (Score 2 if aphasic/stupor): 0 1c LOC Commands (Only score 1st attempt): 0 2 Best Gaze (If aphasic, use reflexive mvmts.): 0 3 Visual: 0 4 Facial Palsy: 1 5 Motor Arm Right (UN = amputation/fusion): 1 5 Motor Arm Left: 0 6 Motor Leg Right: 1 6 Motor Leg Left: 0 7 Limb ataxia (Only + if out of proportion): 0 8 Sensory (Aphasia/stupor=0 or 1, coma=2): 1 9 Best Language: 0 10 Dysarthria (mute, coma=2, intubated=UN): 1 11 Extinction and Inattention (only scored if +): 0 Total Score: 6 MDM MDM MDM Narrative Medical decision making narrative: Patient has a NIH of 6. Patient is a candidate for thrombolytics. He was taken immediately to the CT suite. Will obtain CT of the head as well as CTA of the head and neck. PGT was 167. Because of his reported chest pain and multiple risk factors for coronary disease EKG was obtained as well as troponin since he had symptoms since Monday. Pharmacy was contacted to alert them that patient is a candidate for thrombolytics. History & Record Review Discussion w/independent historian: Patient and Significant other Lab Data Labs: Laboratory Results - last 24 hr 01/10/23 01/10/23 17:35 17:50 WBC 6.7 RBC 4.71 Hgb 13.8 Hct 40.0 MCV 84.9 MCH 29.3 MCHC 34.5 RDW Std Deviation 37.9 RDW Coeff of Gail 12.3 Plt Count 127 L MPV 9.7 Immature Gran % (Auto) 0.100 Neut % (Auto) 64.2 Lymph % (Auto) 23.5 Sargent % (Auto) 10.0 Eos % (Auto) 1.8 Baso % (Auto) 0.4 Absolute Neuts (auto) 4.3 Absolute Lymphs (auto) 1.57 Nucleated RBC % 0 PT 13.9 INR 1.1 APTT 28.1 Sodium 138 Potassium 3.2 L Chloride 103 Carbon Dioxide 31.0 Anion Gap 4 L BUN 19 H Creatinine 1.31 H Estim Creat Clear Calc 66.26 Est GFR (MDRD) Af Amer 72 Est GFR (MDRD) Non-Af 60 BUN/Creatinine Ratio 14.5 Glucose 159 H Calcium 8.2 L Troponin I High Sens 12 POC Glucose 167 H Radiography Diagnostic Testing: Clinical Impression(s) from Imaging Studies Head/Neck CTA 01/10/23 17:34 IMPRESSION: undefined ADDENDUM: 01/10/23 1822 IMPRESSION: undefined Brain CT 01/10/23 17:35 IMPRESSION: No acute intracranial abnormality. Electronically Signed: Ja Dillon MD at 17:49 EST , ADDENDUM: 01/10/23 1806 IMPRESSION: No acute intracranial abnormality. N.B. : The above Results were Read Back by Ja Dillon MD to Flavio Concepcion MD, and understanding confirmed on 01/10/2023 17:59:11 (ET). Electronically Signed: Ja Dillon MD at 17:49 EST , EKG Initial EKG: Attestation: I personally reviewed and interpreted this EKG as follows: Interpretation: Sinus Rhythm (Rate is 70 with a first-degree AV block. MI interval is 216 ms. QRS duration 94 ms. QT duration 386 ms. There is artifact noted. There is no acute ischemic changes noted. 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 Once I received call from the radiologist regarding the CTA and there was no evidence of a aortic dissection TNK was ordered. Stroke Documentation Questions Stroke Team Activated: Yes Reviewed Inclusion/Exclusion criteria: Yes IV Thrombolytic Administered: Yes No contraindications from thrombolytic administration: Yes Risks, Benefits, Alternatives Discussed: Yes Critical Care Time Critical Care Time: Yes Critical care time (excluding procedures): 30-74 minutes (34), Including time spent: (History, physical, documentation, review of prior records, initial review of CT and CTA.), Discussing w/Patient &/or Family/Agricultural Extension Officer (Regarding risk benefits of TNK.), Discussing w/Consultants (Radiologist for the unenhanced scan, a different radiologist for the CTA of the head neck, neurologist at [facility] and the hospitalist) and Arranging Admission or Transfer (Hospitalist and returns supervisor for ICU bed) Discharge Plan Triage Chief Complaint: Stroke Alert ED Provider: Flavio Concepcion Dx/Rx/DC Orders Clinical Impression: Acute stroke due to ischemia, Parkinsons disease, HTN (hypertension), HLD (hyperlipidemia), Type 2 diabetes mellitus, Chest pressure Prescriptions: No Action Inbrija 42 mg capsule, w/inhalation device 84 mg inhalation TID clonazepam 0.5 mg tablet 0.5 mg PO QHS propranolol 10 mg tablet 10 mg PO TID hydrochlorothiazide 12.5 mg tablet 12.5 mg PO QAM Qty: 90 1RF ondansetron 4 mg tablet,disintegrating 4 mg PO Q8H PRN (Reason: nausea and vomiting) Qty: 30 0RF duloxetine 60 mg capsule,delayed release(DR/EC) 60 mg PO DAILY melatonin 3 MG tablet 9 mg PO QHS trazodone 100 MG tablet 200 mg PO QHS famotidine 20 MG tablet 20 mg PO BID carbidopa-levodopa 50-200 mg tablet extended release 1 tab PO QHS polyethylene glycol 3350 17 gram Powder In Packet 17 g PO QHS prazosin 5 mg Capsule 10 mg PO QHS testosterone cypionate 200 mg/mL Oil 200 mg IM Q14D diltiazem HCl 60 mg Tablet 60 mg PO BID omega-3 fatty acids Capsule 1,000 mg PO DAILY rosuvastatin 20 mg Tablet 20 mg PO QHS cholecalciferol (vitamin D3) 50 mcg (2,000 unit) Tablet 50 mcg PO DAILY Jardiance 25 mg Tablet 12.5 mg PO DAILY Rytary 36.25-145 mg Capsule, Extended Release 1 cap PO 4X/DAY Rx Instructions: divide evenly over waking hours pantoprazole [Protonix] 40 mg tablet,delayed release (DR/EC) 80 mg PO BID clopidogrel 75 mg Tablet 75 mg PO DAILY Qty: 21 0RF dicyclomine 20 mg tablet 20 mg PO BID Qty: 20 0RF sucralfate [Carafate] 1 gram tablet 1 g PO Q6H Qty: 28 0RF [facility] [place] [Primary Care Provider] - Disposition Disposition: Acute Care Hospital [facility]
[2023-01-10 17:53] LABS: Bedside Glucose 167 mg/dL (74-106)
[2023-01-10 17:57] LABS: Absolute Lymphocyte Count 1.57 X10^3/uL (0.83-4.51); Absolute Neutrophil Count 4.3 X10^3/uL (2.0-7.7); Basophil# 0.03 X10^3/uL; Basophil% 0.4 % (0-1); Eosinophil# 0.12 X10^3/uL; Eosinophils% 1.8 % (0-5); Hemoglobin 13.8 g/dL (13.0-16.5); Lymphocyte # 1.57 X10^3/ul (0.83-4.51); Lymphocyte % 23.5 % (19-41); Mean Corp Hgb Conc 34.5 g/dL (32-36); Mean Corpuscular Hgb 29.3 pg (27.0-32.0); Mean Corpuscular Volume 84.9 fL (80-94); Mean Platelet Vol. 9.7 fl (6.2-12.0); Monocyte# 0.67 X10^3/uL; NRBC Flagged by Analyzer 0 % (0-5); Neutrophil # 4.28 X10^3/uL (2.7-7.7); Neutrophil % 64.2 % (47-70); Platelet Count 127 K/mm3 (150-450); RBC Distribution Width CV 12.3 % (11.6-14.6); RBC Distribution Width SD 37.9 fl (35.1-43.9); Red Blood Count 4.71 M/mm3 (4.6-6.2); White Blood Count 6.7 K/mm3 (4.4-11.0)
[2023-01-10 18:13] LABS: International Normalized Ratio 1.1; Prothrombin Time (Protime)PT. 13.9 SECONDS (11.7-14.9)
[2023-01-10 18:16] LABS: Anion Gap 4 (5-15); BUN 19 mg/dL (7-18); BUN/Creat Ratio 14.5 RATIO (10-20); Calcium,Total 8.2 mg/dL (8.5-10.1); Chloride 103 mmol/L (98-107); Creatinine, Serum 1.31 mg/dL (0.70-1.30); EST Glomerular Filtration Rate 60 mL/min (>60); Est Glom Filt Rate - Afr Amer 72 mL/min (>60); Estimated Creatinine Clearance 66.26 ml/min; Glucose 159 mg/dL (74-106); Potassium 3.2 mmol/L (3.5-5.1); Sodium Level 138 mmol/L (136-145); Troponin-I HS 12 pg/mL (3.0-78.0)
[2023-01-10] MEDS: Tenecteplase 25 MG in Syringe 1 EACH 3600 MG IV (18:23)
[2023-01-10] MEDS: 0.9% Saline Lock 10 ML Syringe IV (18:23)
[2023-01-10 18:27] LABS: Partial Thromboplast Time 28.1 Seconds (24.1-36.2)
--- NOTE | 2023-01-10 18:38 | RAD_ITS ---
INDICATION: Neuro deficit, acute, stroke suspected EXAMINATION/TECHNIQUE: X-RAY - portable upright AP chest x-ray COMPARISON: 03/24/2022 FINDINGS: LINES/DEVICES: None. LUNGS: No consolidation, edema or effusion. No pneumothorax. MEDIASTINUM AND CARDIOVASCULAR STRUCTURES: Cardiac silhouette not enlarged. Central airways and mediastinal contour are unremarkable. BONES AND SOFT TISSUES: No acute changes. RAD/Chest 1 View IMPRESSION: No radiographic evidence of acute cardiopulmonary disease. Electronically Signed: Pollo Matute MD at 19:12 EST ,
--- NOTE | 2023-01-10 18:39 | PCM.HP.STD ---
HPI - General General Date of Admission: 01/10/23 Date of Service: 01/10/23 Chief Complaint: R sided weakness, paresthesias, chest pain, LH/dizziness. HPI Narrative The patient is a 57 y/o M w/ PMHx: Hx Diverticulitis s/p prior partial colectomy, HTN, HLD, Diabetes mellitus type II, Depression and Anxiety, GERD, Former tobacco use, BRITTANY on CPAP q HS, Parkinson's disease, admission 11/30/21 with Blurry vision, imbalance, paresthesias R face, R sided weakness w/ TNK administration at that time with no MRI evidence of ischemic stroke noted nor any evidence of demyelination who now re-presents to the [facility] ED on 01/10/23 with history of onset at 1645 onset of right sided facial droop, right upper and lower extremity paresthesias as well as right upper and lower extremity weakness in addition to onset of chest discomfort left-sided described as aching and dyspepsia like in nature with associated mild dyspnea, diaphoresis occurring intermittently since Monday independent of activity or rest lasting up to 30 minutes at a time rated 5-6 out of 10 at its worse however with onset of his neurological symptoms his chest pain again began and continued with reported also right upper extremities pain but no radiation to the neck or to the left upper extremity prompting eventual ED evaluation. He also notes episodes of dizziness with positional changes primarily or with activity in general since Monday as well. In the ED initial NIH stroke score score 6.0. Upon hospitalist evaluation status post TNK initiated at 1827 patient with improvement with resolving paresthesias and only very mild drift to the right upper and lower extremity as well as resolving facial droop and no altered speech noted. Work-up in the ED included 98.6, heart rate 98, BP 156/81, respiratory rate 14, 100% on room air, CBC with WBC 6.7, hemoglobin 13.8, platelet 127 without marked shift, unremarkable coags, BMP with potassium 3.2, BUN/creatinine 19/1.31, glucose 159, troponin 12, EKG with sinus rhythm with first-degree AV block with no acute evidence of ischemia, CT head with no acute intracranial findings, chest x-ray with no acute cardiopulmonary findings, CTA head and neck with no evidence of any significant stenoses or aneurysm. ED physician did discuss with neurology for stroke alert and TNK was recommended and initiated. [facility] Medical History Abdominal pain Acute cerebrovascular accident (CVA) due to ischemia Borderline type 2 diabetes mellitus Constipation COVID-19 vaccine series completed CPAP (continuous positive airway pressure) dependence Depression with anxiety Diabetes Diverticulitis Former smoker GERD (gastroesophageal reflux disease) History of hiatal hernia Hyperlipidemia Hypertension Lupus Sleep apnea Type 2 diabetes mellitus Wears glasses Home Medications melatonin 3 mg tablet 9 mg PO QHS SLEEP 05/12/19 [History Last Taken 11/29/21] trazodone 100 mg tablet 200 mg PO QHS SLEEP 05/12/19 [History Last Taken 11/29/21] famotidine 20 mg tablet 20 mg PO BID GERD 02/17/20 [History Last Taken 07/04/22 06:00] carbidopa ER 50 mg-levodopa 200 mg tablet,extended release 1 tab PO QHS PARKINSONS 02/16/21 [History Last Taken 11/29/21] clonazepam 0.5 mg tablet 0.5 mg PO QHS 02/16/21 [History Last Taken 11/30/21] hydrochlorothiazide 12.5 mg tablet 12.5 mg PO QAM #90 tabs 02/16/21 [Rx Last Taken 11/30/21] levodopa 42 mg capsule with inhalation device (Inbrija) 84 mg inhalation TID 02/16/21 [History Last Taken 11/30/21] propranolol 10 mg tablet 10 mg PO TID 02/16/21 [History Last Taken 11/30/21] carbidopa ER 36.25 mg-levodopa 145 mg capsule,extended release (Rytary) 1 cap PO 4X/DAY 11/30/21 [History Last Taken Unknown] cholecalciferol (vitamin D3) 50 mcg (2,000 unit) tablet 50 mcg PO DAILY supplement 11/30/21 [History Last Taken 11/30/21] diltiazem HCl 60 mg tablet 60 mg PO BID 11/30/21 [History Last Taken 11/30/21] empagliflozin 25 mg tablet (Jardiance) 12.5 mg PO DAILY 11/30/21 [History Last Taken 11/30/21] omega-3 fatty acids 1,000 mg PO DAILY 11/30/21 [History Last Taken 11/30/21] pantoprazole 40 mg tablet,delayed release (Protonix) 80 mg PO BID gerd 11/30/21 [History Last Taken 07/04/22 06:00] polyethylene glycol 3350 17 gram oral powder packet 17 g PO QHS 11/30/21 [History Last Taken 11/29/21] prazosin 5 mg capsule 10 mg PO QHS 11/30/21 [History Last Taken 11/29/21] rosuvastatin 20 mg tablet 20 mg PO QHS 11/30/21 [History Last Taken 11/29/21] testosterone cypionate 200 mg/mL intramuscular oil 200 mg IM Q14D 11/30/21 [History Last Taken 1 Week Ago ~11/23/21] clopidogrel 75 mg tablet 75 mg PO DAILY #21 tabs 12/02/21 [Rx Last Taken Unknown] ondansetron 4 mg disintegrating tablet 4 mg PO Q8H PRN nausea and vomiting #30 tabs 01/13/22 [Rx Last Taken Unknown] dicyclomine 20 mg tablet 20 mg PO BID #20 tabs 01/14/22 [Rx Last Taken Unknown] sucralfate 1 gram tablet (Carafate) 1 g PO Q6H #28 tabs 03/24/22 [Rx Last Taken Unknown] duloxetine 60 mg capsule,delayed release 60 mg PO DAILY 03/29/22 [History Last Taken Unknown] Allergy/AdvReac Type Severity Reaction Status Date / Time No Known Allergies Allergy Verified 01/10/23 17:36 Family History Mother Heart disease Hypertension High cholesterol Cancer skin cancer Father Heart disease High cholesterol Hypertension CVA (cerebral vascular accident) Surgical History History of appendectomy History of colectomy (~02/2020) History of laparoscopic cholecystectomy S/P arthroscopic surgery of left knee Social History household members: spouse number of children: 5 current occupational status: unemployed Smoking Status: Former smoker how long ago did patient quit smoking: Quit ~ 15 years prior, smoked socially only. alcohol intake: never substance use type: does not use ROS ROS Narrative Admission Review of Systems: CONSTITUTIONAL: No weight loss, fever, chills, + weakness or fatigue. HEENT: + R facial droop, facial paresthesias, LH/dizziness. Eyes: No double vision or yellow sclerae. Ears, Nose, Throat: No hearing loss, sneezing, congestion, runny nose or sore throat. SKIN: No rash or itching, lesions, wounds. CARDIOVASCULAR: + chest pain, dyspnea, diaphoresis, LH/Dizziness. No palpitations, edema, orthopnea, syncopal events. RESPIRATORY: No shortness of breath, cough or sputum, wheezing, hemoptysis. GASTROINTESTINAL: No anorexia, nausea, vomiting or diarrhea, abdominal pain, melena, BRBPR. GENITOURINARY: No dysuria, frequency, urgency or retention. NEUROLOGICAL: + R sided facial droop, R sided paresthesias, weakness, LH/dizziness. No headache, syncope, paralysis, ataxia, change in bowel or bladder control, seizure. MUSCULOSKELETAL: + muscle, back pain, joint pain or stiffness. HEMATOLOGIC: No anemia, bleeding or bruising. LYMPHATICS: No enlarged nodes. No history of splenectomy. PSYCHIATRIC: + history of depression or anxiety. ENDOCRINOLOGIC:+ reports of sweating. No cold or heat intolerance. No polyuria or polydipsia. ALLERGIES: No history of asthma, hives, eczema or rhinitis. Vital Signs Vital Signs Vital Signs: 01/10/23 17:33 01/10/23 17:42 01/10/23 17:50 Temperature 98.6 F Temperature Source Temporal Pulse Rate 98 Respiratory Rate 14 14 Blood Pressure 156/81 H 165/87 H Blood Pressure Mean 106 113 Blood Pressure Source Blood Pressure Position Blood Pressure Location Pulse Ox 100 Oxygen Delivery Method Room Air Room Air 01/10/23 18:00 01/10/23 18:23 01/10/23 18:04 Temperature Temperature Source Pulse Rate 64 Respiratory Rate 15 Blood Pressure 165/75 H 142/71 H 148/72 H Blood Pressure Mean 105 97 Blood Pressure Source Blood Pressure Position Blood Pressure Location Pulse Ox 95 Oxygen Delivery Method Room Air 01/10/23 18:27 01/10/23 18:30 Temperature Temperature Source Pulse Rate 70 70 Respiratory Rate 15 15 Blood Pressure 142/71 H 153/83 H Blood Pressure Mean 94 106 Blood Pressure Source Monitor Monitor Blood Pressure Position Sitting Sitting Blood Pressure Location Left Arm Left Arm Pulse Ox 95 96 Oxygen Delivery Method Room Air Room Air Weight Weight: 235 lb 0.204 oz Body Mass Index (BMI) 32.8 Physical Exam Narrative Physical Examination: General: Awake, alert, oriented x 3, cooperative, seated upright in the ED bed, flat affect. Skin: Normal color, normal turgor, no icterus, no cyanosis. HEENT: AT/NC, EOMI, PERRLA, MMM, no carotid bruits or JVD noted, no marked facial droop noted, appropriate smile, equal teeth visualized. Lungs: CTA bilaterally, moderate effort, mild decrease BL bases, no rales, ronchi or wheezing. Heart: Regular rate and rhythm; no gallop, rub audible. Abdomen: Soft, obese, NTTP, ND, normal BS, no HSM. Extremities: No cyanosis, clubbing, or edema. Neurological: Patient awake, alert, oriented as noted, cognitive function appears baseline, pupils equally reactive to light and accommodation, cranial nerves grossly normal, moving all 4 extremities however still does have a very mild drift right upper extremity and right lower extremity, appropriate [id number] and [id number], equivocal Babinski, sensation still with paresthesias to the right face and right lower extremity but he notes improved. Psychiatric: Affect appears flat, does have underlying anxiety and depression. Results Lab / Micro Data 01/10/23 17:50 01/10/23 17:50 Labs: Laboratory Results - last 24 hr 01/10/23 17:35: POC Glucose 167 H 01/10/23 17:50: WBC 6.7, RBC 4.71, Hgb 13.8, Hct 40.0, MCV 84.9, MCH 29.3, MCHC 34.5, RDW Std Deviation 37.9, RDW Coeff of Gail 12.3, Plt Count 127 L, MPV 9.7, Immature Gran % (Auto) 0.100, Neut % (Auto) 64.2, Lymph % (Auto) 23.5, Lincoln % (Auto) 10.0, Eos % (Auto) 1.8, Baso % (Auto) 0.4, Absolute Neuts (auto) 4.3, Absolute Lymphs (auto) 1.57, Nucleated RBC % 0, PT 13.9, INR 1.1, APTT 28.1, Sodium 138, Potassium 3.2 L, Chloride 103, Carbon Dioxide 31.0, Anion Gap 4 L, BUN 19 H, Creatinine 1.31 H, Estim Creat Clear Calc 66.26, Est GFR (MDRD) Af Amer 72, Est GFR (MDRD) Non-Af 60, BUN/Creatinine Ratio 14.5, Glucose 159 H, Calcium 8.2 L, Troponin I High Sens 12 Radiology Impression Head/Neck CTA 01/10/23 17:34 IMPRESSION: undefined ADDENDUM: 01/10/23 1822 IMPRESSION: undefined Brain CT 01/10/23 17:35 IMPRESSION: No acute intracranial abnormality. Electronically Signed: Ja Dillon MD at 17:49 EST , ADDENDUM: 01/10/23 1806 IMPRESSION: No acute intracranial abnormality. N.B. : The above Results were Read Back by Ja Dillon MD to Flavio Concepcion MD, and understanding confirmed on 01/10/2023 17:59:11 (ET). Electronically Signed: Ja Dillon MD at 17:49 EST , Assessment & Plan Assessment/Plan (1) Acute stroke due to ischemia: (2) Chest pressure: PLAN: Plan The patient is a 57 y/o M w/ PMHx: Hx Diverticulitis s/p prior partial colectomy, HTN, HLD, Diabetes mellitus type II, Depression and Anxiety, GERD, Former tobacco use, BRITTANY on CPAP q HS, Parkinson's disease, admission 11/30/21 with Blurry vision, imbalance, paresthesias R face, R sided weakness w/ TNK administration at that time with no MRI evidence of ischemic stroke noted nor any evidence of demyelination who now re-presents to the [facility] ED on 01/10/23 with history of onset at 1645 onset of right sided facial droop, right upper and lower extremity paresthesias as well as right upper and lower extremity weakness in addition to onset of chest discomfort left-sided described as aching and dyspepsia like in nature with associated mild dyspnea, diaphoresis occurring intermittently since Monday independent of activity or rest lasting up to 30 minutes at a time rated 5-6 out of 10 at its worse however with onset of his neurological symptoms his chest pain again began and continued with reported also right upper extremities pain but no radiation to the neck or to the left upper extremity prompting eventual ED evaluation. #1. Acute R sided Weakness/Paresthesias concerning for Acute CVA s/p TNK administration: Will admit to the ICU, TNK administered in the ED, will request data clerk consultation per protocol, will plan CT head in 24 hours or if appropriate timing will obtain MRI brain at that time, ECHO 11/2021 with negative bubble study thus will defer repeat, PT/OT/Speech/Nutrition evaluation per protocol, will continue permissive hypertension with as needed agents per stroke protocol given TNK administration, resume immediately antiplt therapy once repeat CT head or MRI if appropriate at 24 hours is negative for any intracranial bleeding, maintain on statin therapy, maintain on fall and aspiration precautions. FLP, magnesium, TSH, HgbA1c. #2. Chest Pain: EKG in ED with sinus rhythm with first-degree AV block with no acute evidence of ischemia, CXR w/ no acute cardiopulmonary findings, initial trop 12. Will place on a monitored bed to assure no acute myocardial infarction with serial cardiac enzymes and EKGs. Magnesium level requested. FLP in AM. Given current presentation as noted #1 we will temporally have to hold the patient Plavix therapy, resume if repeat CT head or MRI at 24-hour bob is negative. If cardiac enzymes are unremarkable and patient with no acute evidence of stroke then will need to pursue anginal work-up #3. Anxiety and depression: Given current presentation we will hold sedated regimen including clonazepam as well as high-dose trazodone temporarily given need for appropriate and accurate NIH stroke scale assessments, will continue patient home duloxetine regimen. #4. Parkinson's disease: Complicates presentation, maintain on fall precautions, will continue patient home levodopa regimen. #5. Hypertension: Permissive hypertension with as needed agents per stroke protocol especially given TNK administration. #6. Hyperlipidemia: FLP in AM, continue patient on statin therapy. #7. Diabetes mellitus type II with hyperglycemia: Hold oral home regimen, nutrition consulted per protocol #1, hemoglobin A1c requested, ADA diet, accu checks w/ ISS. #8. Former tobacco use: Encourage continued tobacco cessation. #9. BRITTANY: CPAP nightly. #10. DVT prophylaxis: SCDs, defer any chemoprophylaxis given tPA administration. Charges/Coding Visit Charges Inpatient E&M: 68718 Init Hosp L3
--- NOTE | 2023-01-10 18:44 | ED.RN ---
Patient also having c/o chest pain. per doctor at [facility] the CTA must be negative before TNK can be given. Dr. Concepcion to speak to the radiologist. Pharmacy notified to have TNK ready. Per policy weeks cath is to be placed. Patient refused weeks cath. supervisor blasting educated patient on the risks if it was not inserted. Patient declined to have it done. Dr. Concepcion notified.
--- NOTE | 2023-01-10 18:51 | EKG12_ITS ---
Test Reason : DYSRHYTHMIA Blood Pressure : / mmHG Vent. Rate : 064 BPM Atrial Rate : 064 BPM P-R Int : 210 ms QRS Dur : 092 ms QT Int : 382 ms P-R-T Axes : 017 -23 013 degrees QTc Int : 394 ms Sinus rhythm with 1st degree A-V block Minimal voltage criteria for LVH, may be normal variant ( R in aVL ) Borderline ECG Confirmed by SELMA REDD, STEVE ([id number]), deputy editor in chief AUBREE MIXON ([id number]) on 01/18/2023 10:40:04 AM Referred By: Confirmed By:STEVE HAHN MD
[2023-01-10] MEDS: 0.9% Normal Saline (1000mL) 1,000 ML 100 ML IV ×2 (18:58→21:06)
[2023-01-10 19:16] LABS: Magnesium 2.2 mg/dL (1.6-2.6)
[2023-01-10] MEDS: Morphine 4 MG/ML Syringe IV (19:54)
[2023-01-10] MEDS: Ondansetron 4 MG/2 ML Vial IV (19:54)
--- NOTE | 2023-01-10 19:57 | EKG12_ITS ---
Test Reason : CP ADMISSION Blood Pressure : / mmHG Vent. Rate : 056 BPM Atrial Rate : 056 BPM P-R Int : 184 ms QRS Dur : 090 ms QT Int : 428 ms P-R-T Axes : 031 -13 025 degrees QTc Int : 413 ms Sinus bradycardia Otherwise normal ECG When compared with ECG of 10-JAN-2023 18:55, MANUAL COMPARISON REQUIRED, DATA IS UNCONFIRMED Confirmed by SELMA REDD, STEVE ([id number]), development editor AUBREE MIXON ([id number]) on 01/18/2023 1:02:58 PM Referred By: VALENTÍN Confirmed By:STEVE HAHN MD
[2023-01-10 21:00] LABS: Troponin-I HS 14 pg/mL (3.0-78.0)
[2023-01-10] MEDS: Potassium Chloride Oral Tablet 20 MEQ 40 MEQ PO (22:04)
[2023-01-10] MEDS: Famotidine 20 MG Tablet PO (22:05)
[2023-01-10] MEDS: MELATONIN 3 MG TABLET 9 MG PO (22:05)
[2023-01-10] MEDS: Atorvastatin Calcium 40 MG Tablet PO (22:05)
[2023-01-10] MEDS: Polyethylene Glycol 3350 17 GM PACKET PO (22:06)
[2023-01-10] MEDS: Pantoprazole Sodium 40 MG Tablet 80 MG PO (22:06)
[2023-01-10] MEDS: CARBIDOPA/LEVODOPA CR 50/200 Tablet PO (22:06)
[2023-01-10] MEDS: fentaNYL 100 MCG/2 ML Ampul 25 MCG IV (22:19)
[2023-01-10] MEDS: Acetaminophen 325 MG Tablet 650 MG PO (23:04)
[2023-01-11] VITALS (25 sets, daily range): BP systolic 117–171; BP diastolic 70–92; PULSE 51–76; RESP 10–17; TEMP 36.2–36.8; O2SAT 93–98; BMI 32.6
[2023-01-11 00:23] LABS: Bedside Glucose 98 mg/dL (74-106)
[2023-01-11] MEDS: fentaNYL 100 MCG/2 ML Ampul 25 MCG IV ×2 (00:37→08:34)
[2023-01-11 00:43] LABS: Troponin-I HS 18 pg/mL (3.0-78.0)
[2023-01-11] MEDS: Acetaminophen 325 MG Tablet 650 MG PO ×3 (03:35→22:57)
[2023-01-11 03:53] LABS: Absolute Lymphocyte Count 1.45 X10^3/uL (0.83-4.51); Absolute Neutrophil Count 5.7 X10^3/uL (2.0-7.7); Basophil# 0.04 X10^3/uL; Basophil% 0.5 % (0-1); Eosinophil# 0.13 X10^3/uL; Eosinophils% 1.6 % (0-5); Hematocrit 41.3 % (40-54); Hemoglobin 13.9 g/dL (13.0-16.5); Lymphocyte # 1.45 X10^3/ul (0.83-4.51); Lymphocyte % 17.9 % (19-41); Mean Corp Hgb Conc 33.7 g/dL (32-36); Mean Corpuscular Hgb 29.4 pg (27.0-32.0); Mean Corpuscular Volume 87.3 fL (80-94); Monocyte# 0.73 X10^3/uL; NRBC Flagged by Analyzer 0 % (0-5); Neutrophil # 5.73 X10^3/uL (2.7-7.7); Neutrophil % 70.8 % (47-70); Platelet Count 121 K/mm3 (150-450); RBC Distribution Width CV 12.5 % (11.6-14.6); RBC Distribution Width SD 39.7 fl (35.1-43.9); Red Blood Count 4.73 M/mm3 (4.6-6.2); White Blood Count 8.1 K/mm3 (4.4-11.0)
[2023-01-11 04:18] LABS: ALB/GLOB Ratio 1.2 RATIO (0.9-2.4); AST(SGOT) 27 U/L (15-37); Alanine Aminotransfer ALT/SGPT 11 U/L (16-61); Albumin, Serum 3.6 g/dL (3.2-5.0); Alkaline Phosphatase 53 U/L (45-117); Anion Gap 3 (5-15); BUN 18 mg/dL (7-18); Calcium,Total 8.3 mg/dL (8.5-10.1); Chloride 109 mmol/L (98-107); Cholesterol 117 mg/dL (200); Creatinine, Serum 1.06 mg/dL (0.70-1.30); EST Glomerular Filtration Rate 76 mL/min (>60); Est Glom Filt Rate - Afr Amer 92 mL/min (>60); Estimated Creatinine Clearance 81.89 ml/min; Glucose 116 mg/dL (74-106); High Density Lipoprotein 32 mg/dL; Potassium 3.9 mmol/L (3.5-5.1); Protein, Total 6.6 g/dL (6.4-8.2); Sodium Level 139 mmol/L (136-145); Thyroid Stim Hormone (TSH) 1.95 uIU/mL (0.358-3.74); Triglycerides 176 mg/dL; Very Low Density Lipoprotein 35 mg/dL (5-40)
--- NOTE | 2023-01-11 07:45 | EX.PCM.CONCC ---
Assessment & Plan Assessment/Plan (1) Acute stroke due to ischemia: PLAN: Plan RECOMMENDATIONS: 1. Continue ICU monitoring per TNK protocol. 2. Follow-up head imaging is scheduled. 3. PT/OT evaluations once repeat head imaging is complete. 4. Echocardiogram with bubble study. IMPRESSIONS: 1. Acute CVA status post TNK The patient initially presented to the hospital with right-sided deficits and concern for an acute ischemic CVA. TNK was administered following evaluation by neurology. Plan to continue routine monitoring in the ICU per protocol. The patient will be due for follow-up head imaging this evening. If unremarkable, the patient will be a candidate for PT/OT evaluations tomorrow. 2. History of Parkinson's/hypertension/hyperlipidemia/diabetes mellitus/obstructive sleep apnea Complicates care, management, recovery and prognosis. Initiate sliding scale insulin coverage. Continue PAP therapy per home regimen. This note was generated with [employer] software. It may contain incorrect words, spelling, and punctuation that were not noted in checking the note before signing. HPI Consult Data Date of Consult: 01/11/23 HPI Narrative Reason for Consultation: Stroke status post tenecteplase HPI Narrative: The patient is a 57-year-old male, with a history as outlined below, who presented to the emergency department on January 10 with right-sided weakness and paresthesias. The patient has a history of diabetes mellitus, hypertension, Parkinson's disease and obstructive sleep apnea. The patient reported that he was hospitalized in November 2021 with strokelike symptoms and received TNK at that time. Subsequent MRI showed no evidence of ischemic stroke. On presentation to the emergency department, the patient was documented to be afebrile hemodynamically stable. He was maintaining appropriate oxygen saturations on room air. Initial laboratory evaluation revealed a platelet count of 127,000. Coagulation profile was unremarkable. Chemistry profile was notable for a potassium of 3.2 and creatinine of 1.31. CT imaging of the head including CTA showed no evidence for large vessel occlusion or stenosis. Chest x-ray was unremarkable. Stroke consultation was obtained and TNK was felt to be indicated. Following administration, the patient was admitted to the medical intensive care unit for further management. [facility] Medical History Abdominal pain Acute cerebrovascular accident (CVA) due to ischemia Borderline type 2 diabetes mellitus Constipation COVID-19 vaccine series completed CPAP (continuous positive airway pressure) dependence Depression with anxiety Diabetes Diverticulitis Former smoker GERD (gastroesophageal reflux disease) History of hiatal hernia Hyperlipidemia Hypertension Lupus Sleep apnea Type 2 diabetes mellitus Wears glasses Home Medications melatonin 3 mg tablet 9 mg PO QHS SLEEP 05/12/19 [History Last Taken 01/10/23] trazodone 100 mg tablet 200 mg PO QHS SLEEP 05/12/19 [History Last Taken 01/09/23] famotidine 20 mg tablet 20 mg PO BID GERD 02/17/20 [History Last Taken 01/10/23] carbidopa ER 50 mg-levodopa 200 mg tablet,extended release 1 tab PO QHS PARKINSONS 02/16/21 [History Last Taken 11/29/21] clonazepam 0.5 mg tablet 0.5 mg PO QHS Sleep 02/16/21 [History Last Taken 01/09/23] hydrochlorothiazide 12.5 mg tablet 12.5 mg PO QAM #90 tabs 02/16/21 [Rx Last Taken 01/10/23] levodopa 42 mg capsule with inhalation device (Inbrija) 84 mg inhalation TID 02/16/21 [History Last Taken 11/30/21] propranolol 10 mg tablet 10 mg PO TID hypertension 02/16/21 [History Last Taken 01/10/23] carbidopa ER 36.25 mg-levodopa 145 mg capsule,extended release (Rytary) 1 cap PO 4X/DAY Parkinsons 11/30/21 [History Last Taken Unknown] cholecalciferol (vitamin D3) 50 mcg (2,000 unit) tablet 50 mcg PO DAILY supplement 11/30/21 [History Last Taken 01/10/23] diltiazem HCl 60 mg tablet 60 mg PO BID hypertension/angina 11/30/21 [History Last Taken 01/10/23] empagliflozin 25 mg tablet (Jardiance) 12.5 mg PO DAILY diabetes 11/30/21 [History Last Taken 01/10/23] omega-3 fatty acids 1,000 mg PO DAILY 11/30/21 [History Last Taken 11/30/21] pantoprazole 40 mg tablet,delayed release (Protonix) 80 mg PO BID gerd 11/30/21 [History Last Taken 01/10/23] polyethylene glycol 3350 17 gram oral powder packet 17 g PO QHS Constipation 11/30/21 [History Last Taken 01/10/23] prazosin 5 mg capsule 10 mg PO QHS hypertension 11/30/21 [History Last Taken 01/10/23] rosuvastatin 20 mg tablet 20 mg PO QHS high cholesterol 11/30/21 [History Last Taken 01/10/23] testosterone cypionate 200 mg/mL intramuscular oil 200 mg IM Q14D 11/30/21 [History Last Taken 1 Week Ago ~11/23/21] clopidogrel 75 mg tablet 75 mg PO DAILY #21 tabs 12/02/21 [Rx Last Taken 01/10/23] ondansetron 4 mg disintegrating tablet 4 mg PO Q8H PRN nausea and vomiting #30 tabs 01/13/22 [Rx Last Taken Unknown] dicyclomine 20 mg tablet 20 mg PO BID #20 tabs 01/14/22 [Rx Last Taken Unknown] sucralfate 1 gram tablet (Carafate) 1 g PO Q6H Prevent ulcers #28 tabs 03/24/22 [Rx Last Taken 01/10/23] duloxetine 60 mg capsule,delayed release 60 mg PO DAILY depression 03/29/22 [History Last Taken 01/10/23] Allergy/AdvReac Type Severity Reaction Status Date / Time No Known Allergies Allergy Verified 01/10/23 17:36 Family History Mother Heart disease Hypertension High cholesterol Cancer skin cancer Father Heart disease High cholesterol Hypertension CVA (cerebral vascular accident) Surgical History History of appendectomy History of colectomy (~02/2020) History of laparoscopic cholecystectomy S/P arthroscopic surgery of left knee Social History household members: spouse number of children: 5 current occupational status: unemployed Smoking Status: Former smoker how long ago did patient quit smoking: Quit ~ 15 years prior, smoked socially only. alcohol intake: never substance use type: does not use ROS ROS Narrative 10 systems were reviewed with pertinent positives as noted in the HPI above. Physical Exam Const alert and no apparent distress General Appearance: cooperative HEENT normocephalic, head/scalp atraumatic and moist oral mucous membranes Eyes PERRL, EOMs intact bilaterally and conjunctivae normal Neck supple General: trachea midline Chest inspection of chest normal Resp normal respiratory effort Auscultation: Negative for rales, rhonchi or wheezes Cardio regular rate and regular rhythm GI normal to inspection, nondistended, normoactive bowel sounds Extremity no clubbing, cyanosis or edema Skin no rashes or lesions noted Neuro CN's II-XII intact bilaterally and moves all extremities Neuro Narrative: No focal deficits. Psych Mood & Affect: flat affect Lab / Micro Data 01/11/23 03:40 01/11/23 03:40 Labs: Laboratory Results - last 24 hr 01/10/23 17:35: POC Glucose 167 H 01/10/23 17:50: WBC 6.7, RBC 4.71, Hgb 13.8, Hct 40.0, MCV 84.9, MCH 29.3, MCHC 34.5, RDW Std Deviation 37.9, RDW Coeff of Gail 12.3, Plt Count 127 L, MPV 9.7, Immature Gran % (Auto) 0.100, Neut % (Auto) 64.2, Lymph % (Auto) 23.5, [place] % (Auto) 10.0, Eos % (Auto) 1.8, Baso % (Auto) 0.4, Absolute Neuts (auto) 4.3, Absolute Lymphs (auto) 1.57, Nucleated RBC % 0, PT 13.9, INR 1.1, APTT 28.1, Sodium 138, Potassium 3.2 L, Chloride 103, Carbon Dioxide 31.0, Anion Gap 4 L, BUN 19 H, Creatinine 1.31 H, Estim Creat Clear Calc 66.26, Est GFR (MDRD) Af Amer 72, Est GFR (MDRD) Non-Af 60, BUN/Creatinine Ratio 14.5, Glucose 159 H, Calcium 8.2 L, Magnesium 2.2, Troponin I High Sens 12 01/10/23 20:20: Troponin I High Sens 14 01/10/23 22:12: POC Glucose 98 01/11/23 00:08: Troponin I High Sens 18 01/11/23 03:40: WBC 8.1, RBC 4.73, Hgb 13.9, Hct 41.3, MCV 87.3, MCH 29.4, MCHC 33.7, RDW Std Deviation 39.7, RDW Coeff of Gail 12.5, Plt Count 121 L, MPV 10.0, Immature Gran % (Auto) 0.200, Neut % (Auto) 70.8 H, Lymph % (Auto) 17.9 L, [place] % (Auto) 9.0, Eos % (Auto) 1.6, Baso % (Auto) 0.5, Absolute Neuts (auto) 5.7, Absolute Lymphs (auto) 1.45, Nucleated RBC % 0, Sodium 139, Potassium 3.9, Chloride 109 H, Carbon Dioxide 27.0, Anion Gap 3 L, BUN 18, Creatinine 1.06, Estim Creat Clear Calc 81.89, Est GFR (MDRD) Af Amer 92, Est GFR (MDRD) Non-Af 76, BUN/Creatinine Ratio 17.0, Glucose 116 H, Calcium 8.3 L, Total Bilirubin 0.70, AST 27, ALT 11 L, Alkaline Phosphatase 53, Total Protein 6.6, Albumin 3.6, Globulin 3.0, Albumin/Globulin Ratio 1.2, Triglycerides 176, Cholesterol 117, LDL Cholesterol 50, VLDL Cholesterol 35, HDL Cholesterol 32 L, TSH 1.95 Radiology Impression Head/Neck CTA 01/10/23 17:34 IMPRESSION: undefined ADDENDUM: 01/10/23 1822 IMPRESSION: undefined Brain CT 01/10/23 17:35 IMPRESSION: No acute intracranial abnormality. Electronically Signed: Ja Dillon MD at 17:49 EST , ADDENDUM: 01/10/23 1806 IMPRESSION: No acute intracranial abnormality. N.B. : The above Results were Read Back by Ja Dillon MD to Flavio Concepcion MD, and understanding confirmed on 01/10/2023 17:59:11 (ET). Electronically Signed: Ja Dillon MD at 17:49 EST , Chest X-Ray 01/10/23 18:38 IMPRESSION: No radiographic evidence of acute cardiopulmonary disease. Electronically Signed: Pollo Matute MD at 19:12 EST , Charges/Coding Visit Charges Inpatient E&M: 90971 Init Hosp L3
--- NOTE | 2023-01-11 07:49 | PN.HOSP_ITS ---
Subjective Subjective Complaining of right hand. Was occurring prior to events. Denies trauma. No further right sided weakness. Denies h/o gout. Objective Data Objective Data Vital Signs: Vital Signs Temp Pulse Resp BP Pulse Ox O2 Del Method 36.3 C L 61 13 139/83 H 98 Room Air 01/11/23 06:00 01/11/23 07:00 01/11/23 07:00 01/11/23 07:00 01/11/23 07:00 01/11/23 07:00 Oxygen Delivery Method Room Air Weight: 106.2 kg Body Mass Index (BMI) 32.6 Intake & Output: Intake and Output for Last 24 Hours 01/09/23 01/10/23 01/11/23 23:59 23:59 23:59 Intake Total 551.67 / 671.67 1370 / 1370 Output Total 350 / 350 400 / 400 Balance 201.67 / 321.67 970 / 970 Lab / Micro Data 01/11/23 03:40 01/11/23 03:40 Labs: Laboratory Results - last 24 hr 01/10/23 17:35: POC Glucose 167 H 01/10/23 17:50: WBC 6.7, RBC 4.71, Hgb 13.8, Hct 40.0, MCV 84.9, MCH 29.3, MCHC 34.5, RDW Std Deviation 37.9, RDW Coeff of Gail 12.3, Plt Count 127 L, MPV 9.7, Immature Gran % (Auto) 0.100, Neut % (Auto) 64.2, Lymph % (Auto) 23.5, [place] % (Auto) 10.0, Eos % (Auto) 1.8, Baso % (Auto) 0.4, Absolute Neuts (auto) 4.3, Absolute Lymphs (auto) 1.57, Nucleated RBC % 0, PT 13.9, INR 1.1, APTT 28.1, Sodium 138, Potassium 3.2 L, Chloride 103, Carbon Dioxide 31.0, Anion Gap 4 L, BUN 19 H, Creatinine 1.31 H, Estim Creat Clear Calc 66.26, Est GFR (MDRD) Af Amer 72, Est GFR (MDRD) Non-Af 60, BUN/Creatinine Ratio 14.5, Glucose 159 H, Calcium 8.2 L, Magnesium 2.2, Troponin I High Sens 12 11/14/23 20:20: Troponin I High Sens 14 01/10/23 22:12: POC Glucose 98 01/11/23 00:08: Troponin I High Sens 18 01/11/23 03:40: WBC 8.1, RBC 4.73, Hgb 13.9, Hct 41.3, MCV 87.3, MCH 29.4, MCHC 33.7, RDW Std Deviation 39.7, RDW Coeff of Gail 12.5, Plt Count 121 L, MPV 10.0, Immature Gran % (Auto) 0.200, Neut % (Auto) 70.8 H, Lymph % (Auto) 17.9 L, [place] % (Auto) 9.0, Eos % (Auto) 1.6, Baso % (Auto) 0.5, Absolute Neuts (auto) 5.7, Absolute Lymphs (auto) 1.45, Nucleated RBC % 0, Sodium 139, Potassium 3.9, Chloride 109 H, Carbon Dioxide 27.0, Anion Gap 3 L, BUN 18, Creatinine 1.06, Estim Creat Clear Calc 81.89, Est GFR (MDRD) Af Amer 92, Est GFR (MDRD) Non-Af 76, BUN/Creatinine Ratio 17.0, Glucose 116 H, Calcium 8.3 L, Total Bilirubin 0.70, AST 27, ALT 11 L, Alkaline Phosphatase 53, Total Protein 6.6, Albumin 3.6, Globulin 3.0, Albumin/Globulin Ratio 1.2, Triglycerides 176, Cholesterol 117, LDL Cholesterol 50, VLDL Cholesterol 35, HDL Cholesterol 32 L, TSH 1.95 Radiography Diagnostic Testing: Radiology Impression Head/Neck CTA 01/10/23 17:34 IMPRESSION: undefined ADDENDUM: 01/10/23 182 IMPRESSION: undefined Brain CT 01/10/23 17:35 IMPRESSION: No acute intracranial abnormality. Electronically Signed: Ja Dillon MD at 17:49 EST , ADDENDUM: 01/10/23 180 IMPRESSION: No acute intracranial abnormality. N.B. : The above Results were Read Back by Ja Dillon MD to Flavio Concepcion MD, and understanding confirmed on 01/10/2023 17:59:11 (ET). Electronically Signed: Ja Dillon MD at 17:49 EST , Chest X-Ray 01/10/23 18:38 IMPRESSION: No radiographic evidence of acute cardiopulmonary disease. Electronically Signed: Pollo Matute MD at 19:12 EST , Physical Exam Const alert and no apparent distress HEENT head/scalp atraumatic Extremity normal to inspection and no clubbing, cyanosis or edema Extremity Narrative: TTP at radial right wrist. no swelling. Neuro moves all extremities Sensorium / Orientation: awake and alert Assessment & Plan Assessment/Plan (1) Acute stroke due to ischemia: PLAN: Presented with right sided weakness and dysarthria. 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 Received TNK on 01/10. Head CT and CTA H+N negative. Check MRI brain, check Echo PT OT ST (2) Chest pressure: PLAN: Atypical Troponin series negative Echo ordered. (3) Wrist pain: PLAN: TTP over right radial wrist. No obvious edema. Check Xray. Doubt gout. PLAN: Plan Chronic conditions: * Anxiety and depression: Given acute CVA, hold clonazepam, duloxetine * Parkinson's disease: Complicates presentation, maintain on fall precautions, will continue carbidopa CR/levodopa and levodopa. Cannot rule out this being an exacerbation of PD. * Hypertension: Permissive hypertension with as needed agents per stroke protocol especially given TNK administration. * Hyperlipidemia:FLP WNL. continue statin * Diabetes mellitus type II: hold Jardiance. SSI * Former tobacco use * BRITTANY: CPAP nightly. DVT prophylaxis: SCDs, defer any chemoprophylaxis given tPA administration. Charges/Coding Visit Charges Inpatient E&M: 96620 Subs Hosp L2
--- NOTE | 2023-01-11 07:59 | ECHOD_ITS ---
Reason For Study: TIA/CVA Left Ventricle Normal left ventricle. The estimated ejection fraction is 55-60 %. Right Ventricle Normal right ventricle. Normal systolic function. Atria Normal left atrium. Normal right atrium. Mitral Valve The mitral valve is structurally normal. No prolapse or stenosis seen. Tricuspid Valve Normal tricuspid valve. Aortic Valve The aortic valve is not well visualized. Pulmonic Valve The pulmonic valve is not well visualized. Great Vessels Normal aortic root. Pericardium/Pleural No pericardial effusion. MMode/2D Measurements & Calculations LVIDd: 5.0 cm IVSd: 1.1 cm Ao root diam: 3.5 cm LVIDs: 3.0 cm LVPWd: 1.0 cm RVDd: 3.5 cm FS: 40.4 % LAV(MOD-bp): 52.3 ml LVAd ap4: 33.3 cm2 SV(MOD-sp4): 65.8 ml LAV(MOD-bp) Indexed: 23.2 ml/m2 LVLd ap4: 9.2 cm LAV(MOD-sp2): 55.8 ml EDV(MOD-sp4): 97.8 ml LAV(MOD-sp4): 44.1 ml EDV(sp4-el): 102.1 ml LVAs ap4: 16.6 cm2 LVLs ap4: 7.5 cm ESV(MOD-sp4): 32.0 ml ESV(sp4-el): 31.2 ml EF(MOD-sp4): 67.3 % EF(sp4-el): 69.4 % SV(sp4-el): 70.9 ml LA dimension(2D): 4.3 cm LA A4 area: 17.9 cm2 RA A4 area: 14.6 cm2 TAPSE: 2.9 cm Time Measurements MV dec time: 0.23 sec Doppler Measurements & Calculations MV E max david: 87.8 cm/sec Lat Peak E' David: 10.9 cm/sec Med Peak E' David: 8.0 cm/sec MV A max david: 59.7 cm/sec E/E' lat: 8.1 E/E' med: 11.0 MV E/A: 1.5 Ao V2 max: 143.8 cm/sec LV V1 max: 125.5 cm/sec MV dec slope: 386.0 cm/sec2 Ao max P.3 mmHg LV V1 max P.3 mmHg Ao V2 mean: 103.6 cm/sec LV V1 mean P.2 mmHg Ao mean P.7 mmHg LV V1 mean: 82.7 cm/sec Ao V2 VTI: 30.0 cm LV V1 VTI: 26.8 cm AV (velocity ratio): 0.90 PA V2 max: 121.1 cm/sec PI end-d david: 104.4 cm/sec TR max davdi: 245.7 cm/sec TR max P.1 mmHg ECHO/Echo Complete Interpretation Summary The estimated ejection fraction is 55-60 %. Normal LV systolic function No significant change from previous echocardiogram Ordering Physician: Kev Bedoya Referring Physician: [facility] Performed By: Liat Arrington, AYANA, RVT
[2023-01-11] MEDS: Dicyclomine 10 MG Capsule 20 MG PO (08:35)
[2023-01-11] MEDS: Pantoprazole Sodium 40 MG Tablet 80 MG PO ×2 (08:36→21:54)
[2023-01-11] MEDS: Famotidine 20 MG Tablet PO ×2 (08:36→21:53)
[2023-01-11] MEDS: DULoxetine Hcl 60 MG Capsule PO (08:36)
[2023-01-11] MEDS: 0.9% Saline Lock 10 ML Syringe IV ×2 (08:37→16:06)
[2023-01-11] MEDS: CHLORHEXIDINE GLUC 2% CLOTH 1 EACH TOWELETTE TOPICAL (08:43)
[2023-01-11] MEDS: LEVODOPA 42 MG 84 MG INHALATION ×3 (10:03→21:53)
--- NOTE | 2023-01-11 10:55 | CASEMGMT ---
RN?CM?[employer]ENDER?CM?to room to meet with patient for initial transition planning/care coordination?assessment.?RN?CM?introduced self and role at [facility].? Pt voices understanding and consents to?assessment?at this time.? Pt resting in bed in no distress at this time. and son present and pt agreeable to them being present during assessment. ? Pt is A/O at this time and answers all questions appropriately.?? Care providers, pharmacy, and demographics verified/updated at this time. PCP: Liat Dee, PCP at [facility] Specialists: Emre neuro at [facility] Pharmacy: Mahendra Crespo Insurance: [place]/[facility] Prescription Benefit:[facility] Living Will/HPOA: Pt states does not have LW/HPOA and would like to complete. SW, Christina, made aware. Pt and family made aware, if SW unable to complete AD w/pt while he is @ [facility], this can be done as an OP w/SW. They voice understanding. LNOK: Guera Hernández, . 4 children. Living Arrangements: Pt lives with and 10-yr old child in 1 story home with 1-2 steps in and states no concerns at home. Pt is normally independent with ADL's and manages his own medications. Pt and share home mgnt tasks. Transportation: Pt drives self and states no transporation concerns. also drives. DME/HHC/SNF: Pt has a pulse ox, functioning glucometer w/testing supplies, and a cpap thru [place] and states no need for any further DME. Pt states has had HHC thru [place] in past but has not been to SNF. Pt on bedrest until MRI around 4:30/5 PM today. PT/OT evals pending. Pt states, if he is able to get up and walk around independently then he wishes to return home and denies needs. Pt states no concerns with going home at time of discharge. Pt and voice no further concerns/needs. CM to follow for therapy notes and any further discharge planning/needs. Advised pt and to ask for CM if any further questions/concerns/needs arise, voices understanding. PLAN: Home. PT/OT evals pending. Follow for any recommendations. Phil STEVEN RN CM
[2023-01-11 12:24] LABS: Bedside Glucose 146 mg/dL (74-106)
--- NOTE | 2023-01-11 15:00 | RAD_ITS ---
STUDY: X-RAY - RIGHT WRIST REASON FOR EXAM: Male, 57 years old. Right radial wrist pain TECHNIQUE: 2 view(s) of the wrist were obtained. COMPARISON: None. FINDINGS: Normal visualized distal radius and ulna. Normal radiocarpal articulation. Normal distal radioulnar articulation. Normal carpal bones. Normal carpal articulations. Normal carpometacarpal articulation of the thumb. Normal second through fifth carpometacarpal articulations. Normal visualized metacarpal bones. The soft tissue structures are unremarkable. RAD/Wrist 2 Views IMPRESSION: Normal x-ray examination of the wrist. Electronically Signed: Nikhil Jarquin MD at 15:19 EST ,
[2023-01-11] MEDS: CARBIDOPA/LEVODOPA 1 EACH CAPSULE.ER 3 EACH PO ×2 (15:07→20:26)
[2023-01-11] MEDS: Ondansetron 4 MG/2 ML Vial IV (16:05)
--- NOTE | 2023-01-11 16:15 | MRI_ITS ---
STUDY: MRI BRAIN WITHOUT CONTRAST REASON FOR EXAM: Male, 57 years old. CVA -- MRI 24 hours after IV thrombolytic administration TECHNIQUE: Standardized multiplanar fat and water weighted pulse sequences were obtained. COMPARISON: CT and CTA brain January 10, 2023. MR brain December 01, 2021 FINDINGS: Normal size of the ventricles and extra-axial spaces for the patient''s age. Normal white matter tracts of the supratentorial brain. There is no evidence for recent intracranial ischemia or other cause of cytotoxic edema on diffusion weighted imaging (DWI). Normal bilateral basal ganglia. Normal thalami. There is no extra-axial fluid accumulation. Normal flow voids within the major intracranial circulation suggesting patency by spin echo criteria. Normal sella turcica, pituitary gland, infundibular stalk, optic chiasm and hypothalamus. Normal tectal plate and pineal gland. Normal midbrain, cristofer and medulla. Normal cerebellum. Normal basal cisterns. Normal bilateral temporal bones. Normal bilateral internal auditory canals. No demonstrated orbital abnormality, within the constraints of a routine brain study. Bilateral fluid signal in the maxillary sinuses. Normal calvarium and skull base. Normal visualized soft tissue structures. Normal visualized upper cervical spine. MRI/Brain without Contrast IMPRESSION: Bilateral maxillary sinusitis. Otherwise no acute intracranial disease. Electronically Signed: Jason Villeda MD at 17:53 EST ,
--- NOTE | 2023-01-11 16:15 | CASEMGMT ---
Social Work SW met with pt and completed a PHQ9 as pt has a diagnosis of stroke. Pt score of 6 indicating moderate depression. Pt states that he is clinically depressed and is [facility]. Pt states he did have an appointment tomorrow with the counselor that pt will cancel. Pt denies any further mental health resources. SHAWNA Pop
--- NOTE | 2023-01-11 16:18 | CASEMGMT ---
Social Work SW assisted pt in completing a living will and health care POA naming his Guera Hernández. Copy placed on pt chart and original given to pt. SHAWNA Aguiar
[2023-01-11 16:26] LABS: Bedside Glucose 132 mg/dL (74-106)
[2023-01-11] MEDS: Lidocaine 5% Patch 1 PATCH TOPICAL (18:00)
[2023-01-11] MEDS: MELATONIN 3 MG TABLET 9 MG PO (21:53)
[2023-01-11] MEDS: Atorvastatin Calcium 40 MG Tablet PO (21:53)
[2023-01-11] MEDS: Polyethylene Glycol 3350 17 GM PACKET PO (21:53)
[2023-01-11] MEDS: CARBIDOPA/LEVODOPA CR 50/200 Tablet PO (21:54)
[2023-01-11 22:24] LABS: Bedside Glucose 131 mg/dL (74-106)
[2023-01-11] MEDS: traZODone 100 MG Tablet 200 MG PO (22:57)
[2023-01-11] MEDS: clonazePAM 0.5 MG Tablet PO (22:57)
[2023-01-12] VITALS: BP 122/77; PULSE 61; RESP 15; TEMP 36.4; O2SAT 95
[2023-01-12 02:57] LABS: Absolute Lymphocyte Count 1.38 X10^3/uL (0.83-4.51); Absolute Neutrophil Count 6.6 X10^3/uL (2.0-7.7); Basophil# 0.04 X10^3/uL; Basophil% 0.4 % (0-1); Eosinophil# 0.12 X10^3/uL; Eosinophils% 1.3 % (0-5); Hematocrit 43.3 % (40-54); Hemoglobin 14.7 g/dL (13.0-16.5); Lymphocyte # 1.38 X10^3/ul (0.83-4.51); Lymphocyte % 15.3 % (19-41); Mean Corp Hgb Conc 33.9 g/dL (32-36); Mean Corpuscular Hgb 29.5 pg (27.0-32.0); Mean Corpuscular Volume 86.8 fL (80-94); Mean Platelet Vol. 9.8 fl (6.2-12.0); Monocyte# 0.85 X10^3/uL; Monocyte% 9.4 % (0-10); NRBC Flagged by Analyzer 0 % (0-5); Neutrophil # 6.59 X10^3/uL (2.7-7.7); Neutrophil % 73.4 % (47-70); Platelet Count 129 K/mm3 (150-450); RBC Distribution Width CV 12.5 % (11.6-14.6); RBC Distribution Width SD 39.1 fl (35.1-43.9); Red Blood Count 4.99 M/mm3 (4.6-6.2)
[2023-01-12 03:09] LABS: Anion Gap 6 (5-15); BUN 18 mg/dL (7-18); BUN/Creat Ratio 20.5 RATIO (10-20); Calcium,Total 8.7 mg/dL (8.5-10.1); Chloride 107 mmol/L (98-107); Creatinine, Serum 0.88 mg/dL (0.70-1.30); EST Glomerular Filtration Rate 95 mL/min (>60); Est Glom Filt Rate - Afr Amer 115 mL/min (>60); Estimated Creatinine Clearance 98.64 ml/min; Glucose 102 mg/dL (74-106); Potassium 3.7 mmol/L (3.5-5.1); Sodium Level 141 mmol/L (136-145)
[2023-01-12 03:18] VITALS: BMI 32.5
[2023-01-12 04:00] VITALS: BP 143/86; PULSE 55; RESP 12; TEMP 36.6; O2SAT 94
[2023-01-12] MEDS: LEVODOPA 42 MG 84 MG INHALATION (05:45)
[2023-01-12] MEDS: CARBIDOPA/LEVODOPA 1 EACH CAPSULE.ER 3 EACH PO ×2 (07:00→10:16)
[2023-01-12 07:20] LABS: Bedside Glucose 116 mg/dL (74-106)
--- NOTE | 2023-01-12 07:46 | PN.HOSP_ITS ---
Reason for Visit Reason for Visit: Diagnoses Cerebral infarction, unspecified (01/10/23) Pain in unspecified wrist (01/10/23) Other chest pain (01/10/23) Subjective Subjective Still with wrist pain but feeling better. Objective Data Objective Data Vital Signs: Vital Signs Temp Pulse Resp BP Pulse Ox O2 Del Method 36.6 C 55 L 12 143/86 H 94 Room Air 01/12/23 04:00 01/12/23 04:00 01/12/23 04:00 01/12/23 04:00 01/12/23 04:00 01/12/23 04:00 Oxygen Delivery Method Room Air Weight: 106 kg Body Mass Index (BMI) 32.5 Intake & Output: Intake and Output for Last 24 Hours 01/10/23 01/11/23 01/12/23 23:59 23:59 23:59 Intake Total 551.67 / 671.67 2600 / 2900 300 / 300 Output Total 350 / 350 1550 / 2300 1150 / 1150 Balance 201.67 / 321.67 1050 / 600 -850 / -850 Lab / Micro Data 01/12/23 02:47 01/12/23 02:47 Labs: Laboratory Results - last 24 hr 01/10/23 17:37: POC Glucose Cancelled 01/11/23 03:40: Hemoglobin A1c 6.0 H 01/11/23 12:06: POC Glucose 146 H 01/11/23 16:07: POC Glucose 132 H 01/11/23 22:06: POC Glucose 131 H 01/12/23 02:47: WBC 9.0, RBC 4.99, Hgb 14.7, Hct 43.3, MCV 86.8, MCH 29.5, MCHC 33.9, RDW Std Deviation 39.1, RDW Coeff of Gail 12.5, Plt Count 129 L, MPV 9.8, Immature Gran % (Auto) 0.200, Neut % (Auto) 73.4 H, Lymph % (Auto) 15.3 L, [place] % (Auto) 9.4, Eos % (Auto) 1.3, Baso % (Auto) 0.4, Absolute Neuts (auto) 6.6, Absolute Lymphs (auto) 1.38, Nucleated RBC % 0, Sodium 141, Potassium 3.7, Chloride 107, Carbon Dioxide 28.0, Anion Gap 6, BUN 18, Creatinine 0.88, Estim Creat Clear Calc 98.64, Est GFR (MDRD) Af Amer 115, Est GFR (MDRD) Non-Af 95, BUN/Creatinine Ratio 20.5 H, Glucose 102, Calcium 8.7 01/12/23 06:58: POC Glucose 116 H Radiography Diagnostic Testing: Radiology Impression Echocardiogram 01/11/23 07:59 Interpretation Summary The estimated ejection fraction is 55-60 %. Normal LV systolic function No significant change from previous echocardiogram Ordering Physician: Kev Bedoya Referring Physician: [facility] Performed By: Liat Arrington, AYANA, RVT Wrist X-Ray 01/11/23 15:00 IMPRESSION: Normal x-ray examination of the wrist. Electronically Signed: Nikhil Jarquin MD at 15:19 EST , Brain MRI 01/11/23 16:15 IMPRESSION: Bilateral maxillary sinusitis. Otherwise no acute intracranial disease. Electronically Signed: Jason Villeda MD at 17:53 EST , Physical Exam Const alert and no apparent distress HEENT head/scalp atraumatic and moist oral mucous membranes Eyes PERRL Extremity normal to inspection Extremity Narrative: Some slight edema at the radial aspect of his wrist. Does have a Lidoderm patch on. Neuro no focal motor deficits Sensorium / Orientation: awake and alert Assessment & Plan Assessment/Plan (1) Acute stroke due to ischemia: PLAN: Presented with right sided weakness and dysarthria. 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 Received TNK on 01/10. Head CT and CTA H+N negative. MRI brain negative for stroke or bleed. Bilateral maxillary sinusitis. Echo shows and EF 55-60%. PT OT ST Per neurology recommendations: ASA 325 x1, then 81 daily. clopidogrel 75 daily for 3 weeks, high-intensity statin (LDL currently 50). 30-day event monitor. Neurology follow up as outpt. Patient have a follow-up appointment with his neurologist at the [place]. I just recommend him continue with aspirin and clopidogrel until he sees them as well as continue with statin. He states that he will follow-up with the neurologist about the 30-day event monitor. (2) Chest pressure: PLAN: Atypical Troponin series negative Echo ordered. (3) Wrist pain: PLAN: TTP over right radial wrist. No obvious edema. X-ray negative for any fracture Patient denies a history of gout. Check uric acid level as if this is an acute flare he may be artificially low. Patient is never had gout before so its seems less likely however this not ruled out. Patient does take hydrochlorothiazide which can cause gout flares. Recommended supportive management at this time with acetaminophen and patient states that he does have Lidoderm patches at home that he can use. PLAN: Plan Chronic conditions: * Anxiety and depression: Given acute CVA, hold clonazepam, duloxetine * Parkinson's disease: Complicates presentation, maintain on fall precautions, will continue carbidopa CR/levodopa and levodopa. Cannot rule out this being an exacerbation of PD. * Hypertension: Permissive hypertension with as needed agents per stroke protocol especially given TNK administration. * Hyperlipidemia:FLP WNL. continue statin * Diabetes mellitus type II: hold Jardiance. SSI * Former tobacco use * BRITTANY: CPAP nightly. DVT prophylaxis: SCDs, defer any chemoprophylaxis given tPA administration.
[2023-01-12 08:00] VITALS: BP 127/81; PULSE 67; RESP 18; TEMP 36.8; O2SAT 96
[2023-01-12] MEDS: Dicyclomine 10 MG Capsule 20 MG PO (08:15)
[2023-01-12 09:20] VITALS: O2SAT 97
[2023-01-12 10:00] VITALS: BP 146/74; PULSE 71; RESP 16; TEMP 36.8; O2SAT 96
[2023-01-12] MEDS: Lidocaine 5% Patch 1 PATCH TOPICAL (10:14)
[2023-01-12] MEDS: Famotidine 20 MG Tablet PO (10:14)
[2023-01-12] MEDS: Pantoprazole Sodium 40 MG Tablet 80 MG PO (10:14)
[2023-01-12] MEDS: DULoxetine Hcl 60 MG Capsule PO (10:14)
--- NOTE | 2023-01-12 11:00 | DS.PCM_ITS ---
Providers Date of Admission: 01/10/23 Primary Care Physician: [facility] Consultations 01/10/23 18:15 Consult: Thread Separator / Pulmonary Medicine Routine Consulting Provider: Rodríguez Quiros Reason for Consult: stroke for thrombolytic administration EMERGENT Consult: No Notified: Yes Date Notified: 01/10/23 Time Notified: 18:15 Method of Notification: Text Comments:: Consult may be done in ED or ICU 01/10/23 19:57 Consult: Thread Separator / Pulmonary Medicine Routine Consulting Provider: Rodríguez Quiros Reason for Consult: stroke for thrombolytic EMERGENT Consult: Yes Notified: Yes Date Notified: 01/10/23 Time Notified: 18:46 Method of Notification: Text Reason For Visit: CVA S/P TNK Diagnosis Discharge Diagnosis (1) Acute stroke due to ischemia: Status: Acute Code(s): I63.9 - Cerebral infarction, unspecified Plan: Presented with right sided weakness and dysarthria. 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 Received TNK on 01/10. Head CT and CTA H+N negative. MRI brain negative for stroke or bleed. Bilateral maxillary sinusitis. Echo shows and EF 55-60%. PT OT ST Per neurology recommendations: ASA 325 x1, then 81 daily. clopidogrel 75 daily for 3 weeks, high-intensity statin (LDL currently 50). 30-day event monitor. Neurology follow up as outpt. Patient have a follow-up appointment with his neurologist [place]. I just recommend him continue with aspirin and clopidogrel until he sees them as well as continue with statin. He states that he will follow-up with the neurologist about the 30-day event monitor. (2) Chest pressure: Status: Acute Code(s): R07.89 - Other chest pain Plan: Atypical Troponin series negative Echo ordered. (3) Wrist pain: Status: Acute Code(s): M25.539 - Pain in unspecified wrist Plan: TTP over right radial wrist. No obvious edema. X-ray negative for any fracture Patient denies a history of gout. Check uric acid level as if this is an acute flare he may be artificially low. Patient is never had gout before so its seems less likely however this not ruled out. Patient does take hydrochlorothiazide which can cause gout flares. Recommended supportive management at this time with acetaminophen and patient states that he does have Lidoderm patches at home that he can use. Plan Chronic conditions: * Anxiety and depression: Given acute CVA, hold clonazepam, duloxetine * Parkinson's disease: Complicates presentation, maintain on fall precautions, will continue carbidopa CR/levodopa and levodopa. Cannot rule out this being an exacerbation of PD. * Hypertension: Permissive hypertension with as needed agents per stroke protocol especially given TNK administration. * Hyperlipidemia:FLP WNL. continue statin * Diabetes mellitus type II: hold Jardiance. SSI * Former tobacco use * BRITTANY: CPAP nightly. DVT prophylaxis: SCDs, defer any chemoprophylaxis given tPA administration. Medications at Discharge Home Medications melatonin 3 mg tablet 9 mg PO QHS SLEEP 05/12/19 trazodone 100 mg tablet 200 mg PO QHS SLEEP 05/12/19 famotidine 20 mg tablet 20 mg PO BID GERD 02/17/20 carbidopa ER 50 mg-levodopa 200 mg tablet,extended release 1 tab PO QHS [place] 02/16/21 clonazepam 0.5 mg tablet 0.5 mg PO QHS Sleep 02/16/21 hydrochlorothiazide 12.5 mg tablet 12.5 mg PO QAM #90 tabs 02/16/21 levodopa 42 mg capsule with inhalation device (Inbrija) 84 mg inhalation TID Parkinsons 02/16/21 propranolol 10 mg tablet 10 mg PO TID hypertension 02/16/21 carbidopa ER 36.25 mg-levodopa 145 mg capsule,extended release (Rytary) 3 cap PO 4X/DAY Parkinsons 11/30/21 cholecalciferol (vitamin D3) 50 mcg (2,000 unit) tablet 50 mcg PO DAILY supplement 11/30/21 diltiazem HCl 60 mg tablet 60 mg PO BID hypertension/angina 11/30/21 empagliflozin 25 mg tablet (Jardiance) 12.5 mg PO DAILY diabetes 11/30/21 omega-3 fatty acids 1,000 mg PO DAILY 11/30/21 pantoprazole 40 mg tablet,delayed release (Protonix) 80 mg PO BID gerd 11/30/21 polyethylene glycol 3350 17 gram oral powder packet 17 g PO QHS Constipation 11/30/21 prazosin 5 mg capsule 10 mg PO QHS hypertension 11/30/21 rosuvastatin 20 mg tablet 20 mg PO QHS high cholesterol 11/30/21 sucralfate 1 gram tablet (Carafate) 1 g PO Q6H Prevent ulcers #28 tabs 03/24/22 duloxetine 60 mg capsule,delayed release 60 mg PO DAILY depression 03/29/22 aspirin 81 mg tablet,delayed release 81 mg PO DAILY #30 tabs 01/12/23 clopidogrel 75 mg tablet 75 mg PO DAILY #21 tabs 01/12/23 lidocaine 5 % topical patch 1 patch topical DAILY PRN Pain, Severe #0 ea 01/12/23 Hospital Course Operations None Procedures 2-D Echocardiogram Summary of Care Provided Minutes Spent on Discharge: 32 Hospital Course: Patient presents with acute onset of right-sided weakness. Patient was evaluated by [facility] teleneurology and patient underwent tenecteplase. Patient had resolution of his symptoms. Subsequent MRI did not show any evidence of a stroke. Patient was recommended to continue with clopidogrel as well as adding aspirin and statin. Patient goes to [place] for his neurology care and will follow- up with them in regards to which of the medications, aspirin or clopidogrel could be potentially dropped. Patient will need an event monitor the patient states that he will follow-up with neurology in regards to getting that arranged. Patient also did have some right wrist pain. Very tender radially. Slight bogginess there but without erythema or warmth. Etiology is unclear. Wrist x- ray was negative for any fracture. Seems unlikely gout but that is not ruled out at this time. Just recommend supportive management at this time. Patient denies any recent fall that may have precipitated this. Weight / BMI Weight Weight: 106 kg Body Mass Index (BMI) 32.5 ABG / Lab / Microbiology Data 01/12/23 02:47 01/12/23 02:47 Laboratory: Laboratory Results - last 24 hr 01/10/23 17:37: POC Glucose Cancelled 01/11/23 12:06: POC Glucose 146 H 01/11/23 16:07: POC Glucose 132 H 01/11/23 22:06: POC Glucose 131 H 01/12/23 02:47: WBC 9.0, RBC 4.99, Hgb 14.7, Hct 43.3, MCV 86.8, MCH 29.5, MCHC 33.9, RDW Std Deviation 39.1, RDW Coeff of Gail 12.5, Plt Count 129 L, MPV 9.8, Immature Gran % (Auto) 0.200, Neut % (Auto) 73.4 H, Lymph % (Auto) 15.3 L, [place] % (Auto) 9.4, Eos % (Auto) 1.3, Baso % (Auto) 0.4, Absolute Neuts (auto) 6.6, Absolute Lymphs (auto) 1.38, Nucleated RBC % 0, Sodium 141, Potassium 3.7, Chloride 107, Carbon Dioxide 28.0, Anion Gap 6, BUN 18, Creatinine 0.88, Estim Creat Clear Calc 98.64, Est GFR (MDRD) Af Amer 115, Est GFR (MDRD) Non-Af 95, BUN/Creatinine Ratio 20.5 H, Glucose 102, Calcium 8.7 01/12/23 06:58: POC Glucose 116 H Radiography Diagnostic Testing: Radiology Impression Echocardiogram 01/11/23 07:59 Interpretation Summary The estimated ejection fraction is 55-60 %. Normal LV systolic function No significant change from previous echocardiogram Ordering Physician: Kev Bedoya Referring Physician: [facility] Performed By: Liat Arrington, AYANA, RVT Wrist X-Ray 01/11/23 15:00 IMPRESSION: Normal x-ray examination of the wrist. Electronically Signed: Nikhil Jarquin MD at 15:19 EST , Brain MRI 01/11/23 16:15 IMPRESSION: Bilateral maxillary sinusitis. Otherwise no acute intracranial disease. Electronically Signed: Jason Villeda MD at 17:53 EST , D/C Instructions Discharge Diet: Low fat / Low cholesterol Meaningful Use Info Meaningful Use Diagnoses (Choose all that apply): Ischemic CVA CVA Therapy Assessed for PT,OT and/or ST?: Yes Ischemic Stroke Antithrombotic order at d/c?: Yes Dx of Atrial fib/flutter?: No Anticoagulant at discharge?: No Reason anticoagulant not ordered: Treatment not Indicated Statins at discharge?: Yes Primary Dx Acute Ischemic CVA?: Yes IV thrombolytic ordered during stay?: Yes Discharge Plan Admission Admit Date/Time: 01/10/23 18:41 Primary Reason for Your Visit: Stroke Attending Provider: Kev Bedoya Primary Care Provider: [facility] Consulting Providers: Frankie Smith; Gamal French; Marylu Lynn; Manjinder Mcnally; Rory Garcia; Ana Lilia Whitaker NP; Jamee Phillips Instructions Additional Instructions / Restrictions: You had a most concerning for an acute stroke and you did receive tenecteplase (clot Buster medication). Symptoms have resolved. Neurology who saw you recommended taking Plavix and aspirin and also taking a statin medication. He said you follow-up with your neurologist at the [place]. It is recommended that you also have a 30-day event monitor to see if you have any arrhythmia that may potentially lead to further strokes down the road. Discharge Orders/Prescriptions Prescriptions: New lidocaine 5 % Adhesive Patch,Medicated 1 patch topical DAILY PRN (Reason: Pain, Severe) Qty: 0 0RF Protocol: *Topical Application Instructions APPLICATION INSTRUCTIONS: right forearm. aspirin 81 mg tablet,delayed release (DR/EC) 81 mg PO DAILY Qty: 30 0RF Continued Inbrija 42 mg capsule, w/inhalation device 84 mg inhalation TID clonazepam 0.5 mg tablet 0.5 mg PO QHS propranolol 10 mg tablet 10 mg PO TID hydrochlorothiazide 12.5 mg tablet 12.5 mg PO QAM Qty: 90 1RF duloxetine 60 mg capsule,delayed release(DR/EC) 60 mg PO DAILY melatonin 3 MG tablet 9 mg PO QHS trazodone 100 MG tablet 200 mg PO QHS famotidine 20 MG tablet 20 mg PO BID carbidopa-levodopa 50-200 mg tablet extended release 1 tab PO QHS polyethylene glycol 3350 17 gram Powder In Packet 17 g PO QHS prazosin 5 mg Capsule 10 mg PO QHS diltiazem HCl 60 mg Tablet 60 mg PO BID omega-3 fatty acids Capsule 1,000 mg PO DAILY rosuvastatin 20 mg Tablet 20 mg PO QHS cholecalciferol (vitamin D3) 50 mcg (2,000 unit) Tablet 50 mcg PO DAILY Jardiance 25 mg Tablet 12.5 mg PO DAILY Rytary 36.25-145 mg Capsule, Extended Release 3 cap PO 4X/DAY Rx Instructions: divide evenly over waking hours pantoprazole [Protonix] 40 mg tablet,delayed release (DR/EC) 80 mg PO BID sucralfate [Carafate] 1 gram tablet 1 g PO Q6H Qty: 28 0RF clopidogrel 75 mg Tablet 75 mg PO DAILY Qty: 21 0RF Discontinued testosterone cypionate 200 mg/mL Oil 200 mg IM Q14D [facility]errals [facility] - Within 2 Weeks Disposition Disposition (needs filled in before D/C Order can be placed): Home, Self Care Charges/Coding Visit Charges Inpatient E&M: 04054 Disch Hosp >30min
--- NOTE | 2023-01-12 11:20 | CASEMGMT ---
MONICA CM into pt room, pt dressed and standing at window with visitor at bedside. Pt denies any homegoing needs at this time. He states his arm is a little weak but he thinks he can build this strength up on his own. He states if not, [facility] he goes to his follow up appt.
[2023-01-12 11:45] VITALS: BMI 32.5
== END 2023-01-12 12:00 | disposition home or self-care (01) | DRG 62 ==
LOC: ED 18:36 → ICU 19:35
PROVIDERS: Admitting Provider Family Medicine; Emergency Provider Emergency Medicine
DX: I63.9 Cerebral infarction, unspecified (principal); G81.91 Hemiplegia, unspecified affecting right dominant side; E11.65 Type 2 diabetes mellitus with hyperglycemia; F32.A Depression, unspecified; E78.5 Hyperlipidemia, unspecified; J32.0 Chronic maxillary sinusitis; G20.A1 Parkinson's disease without dyskinesia, without mention of fluctuations; I10 Essential (primary) hypertension; G47.33 Obstructive sleep apnea (adult) (pediatric); K21.9 Gastro-esophageal reflux disease without esophagitis; M10.9 Gout, unspecified; F41.9 Anxiety disorder, unspecified; R29.810 Facial weakness; R29.706 NIHSS score 6; R07.89 Other chest pain; Z79.84 Long term (current) use of oral hypoglycemic drugs; Z87.891 Personal history of nicotine dependence; Z86.73 Personal history of transient ischemic attack (TIA), and cerebral infarction without residual deficits
CPT/HCPCS: 70450; 70496; 70498; 70551; 71045; 73100; 80048; 80053; 80061; 82962; 83036; 83735; 84443; 84484; 85025; 85610; 85730; 92610; 93005; 93306; 94668; 97802; 99285; J3101; J7030; Q9967; A4216; J2405; J3490

== ENCOUNTER 2023-03-16 16:41 | Inpatient (IN) | payer OTHER, SELFPAY ==
[2023-03-16] VITALS (10 sets, daily range): BP systolic 113–142; BP diastolic 71–82; PULSE 58–93; RESP 15–18; TEMP 35.8–35.9; O2SAT 96–99; BMI 33.2; BMI 32.8
--- NOTE | 2023-03-16 17:01 | EKG12_ITS ---
Test Reason : CP Blood Pressure : / mmHG Vent. Rate : 078 BPM Atrial Rate : 078 BPM P-R Int : 188 ms QRS Dur : 088 ms QT Int : 362 ms P-R-T Axes : 026 -33 008 degrees QTc Int : 412 ms Normal sinus rhythm Left axis deviation Minimal voltage criteria for LVH, may be normal variant ( R in aVL ) Inferior infarct , age undetermined Abnormal ECG Confirmed by SELMA REDD, STEVE ([id number]), managing editor AUBREE MIXON ([id number]) on 03/17/2023 10:28:25 AM Referred By: TEX Confirmed By:STEVE HAHN MD
[2023-03-16] MEDS: Aspirin 81 MG TAB.CHEW 324 MG PO (17:13)
--- OUTSIDE RECORDS SUMMARY | 2023-03-16 17:15 | XMS RPT_ITS | CCD ---
Author Name Unknown Address [id number] [place] [address] Organization [facility] Care Team Providers Care Community Health Educator Name Role Phone Maki, Sohail L Unavailable Craske, W. Don Unavailable MAKI, SOHAIL L Unavailable Unavailable CRASKE, W. DON Unavailable Unavailable MAKI, SOHAIL L Unavailable Unavailable MAKI, SOHAIL L Unavailable Unavailable MAKI, SOHAIL L Unavailable Unavailable CRASKE, W. DON Unavailable Unavailable MAKI, SOHAIL L Unavailable Unavailable MAKI, SOHAIL L Unavailable Unavailable PHYSICIAN, DEFAULT Unavailable Unavailable PHYSICIAN, DEFAULT Unavailable Unavailable UNKNOWN, PROVIDER Unavailable Unavailable CLEMENTINE Unavailable Unavailable ASSALY, RAGHEB Unavailable Unavailable ADRIAN, VENKATAKRISHNAN Unavailable Unavail able [place] Unavailable Unavailable MAHFOOZ, MARLYN Unavailable Unavailable DAVID, MANGO B Unavailable Unavailable DAVID, MANGO B Unavailable Unavailable DAVID, MANGO B Unavailable Unavailable DAVID, MANGO B Unavailable Unavailable DAVID, MANGO B Unavailable Unavailable DAVID, MANGO B Unavailable Unavailable DAVID, MANGO B Unavailable Unavailable DAVID, MANGO B Unavailable Unavailable DAVID, MANGO B Unavailable Unavailable DAVID, MANGO B Unavailable Unavailable Castillo, Gumaro W Unavailable Unavailable Castillo, Gumaro W Unavailable Unavailable Maki, Sohail L Unavailable Unavailable Castillo, Gumaro W Unavailable Unavailable Maki, Sohail L Unavailable Unavailable Laci Bains Unavailable Unavailable Laci Bains Unavailable Unavailable Maki, Sohail L Unavailable Unavailable Fernando Beaulieu Unavailable Unavailable Fernando Beaulieu Unavailable Unavailable Alejandra Cazares Unavailable Unavailable Alejandra Cazares Unavailable Unavailable Sohail Gambino Primary Care Provider Unavailab Nivia Dai Unavailable GHAZARIAN, STEVE Primary Care Unavailable SERGIO MONTAÑO Attending Unavailable GHAZARIAN, STEVE Referring Unavailable GHAZARIAN, STEVE Primary Care Unavailable GHAZARIAN, STEVE Referring Unavailable GHAZARIAN, STEVE Primary Care Unavailable GHAZARIAN, STEVE Referring Unavailable GHAZARIAN, STEVE Primary Care Unavailable GHAZARIAN, STEVE Referring Unavailable GHAZARIAN, STEVE Primary Care Unavailable GHAZARIAN, STEVE Referring Unavailable GHAZARIAN, STEVE Primary Care Unavailable JASON DALLAS Referring Unavailable GHAZARIAN, STEVE Primary Care Unavailable GHAZARIAN, STEVE Referring Unavailable GHAZARIAN, STEVE Primary Care Unavailable DALLIN DALLAS Admitting Unavailab DALLIN Rob Attending Unavailab SOHAIL Anna Primary Care Unavailable Hannah, Thuy Unavailable Unavailable Hannah, Thuy D Unavailable Unavailable [place], Mango B Unavailable Unavailable Unknown, Referring Provider Unavailable Unav ailable Hannah, Thuy D Unavailable Unavailable David Mango B Unavailable Unavailable Tavallaee, Panchito Unavailable Unavailable Sohail Gambino Primary Care Provider Nivia aCzares Unavailable Hannah, Thuy D Unavailable Unavailable Unavailable VINOD ACUÑA CNP Primary Care Physician Allergies Allergy Classification Reported Allergen(s) Allergy Type Date of Onset Reaction(s) Facility (2 sources) No Known Allergies; Translations: [No Known Allergies] Propensity to adverse reactions (disorder) 8 [facility] Medications Current Medications Medication Drug Class(es) Dates Sig (Normalized) Sig (Original) clonazePAM 0.5 mg oral tablet (3 sources) Benzodiazepine take 1 tablet by mouth three times daily as needed for anxiety clonazePAM (KLONOPIN) 0.5 MG tablet Take 0.5 mg by mouth 3 (three) times a day as needed for anxiety. 0 Active entacapone 200 mg oral tablet (3 sources) Agfvnlqo-Y-Zscbytoujbg ferase Inhibitor take 1 tablet by mouth four times daily entacapone (COMTAN) 200 mg tablet Take 200 mg by mouth 4 (four) times a day. 0 Active hyoscyamine sulfate 0.125 mg sublingual tablet (2 sources) hyoscyamine (LEVSIN/SL) 0.[address] 0.125 mg under the tongue 2 (two) times a day as needed for cramping (abdominal pain & spasm) . 0 Active 24 hr isosorbide mononitrate 30 mg extended release oral tablet (4 sources) Nitrate Vasodilator take 1 tablet by mouth once daily, then take 2 tablets by mouth every twenty-four hours isosorbide mononitrate (IMDUR) 30 MG 24 hr tablet Take 15 mg by mouth daily . 0 Active Completed/Discontinued Medications Medication Drug Class(es) Dates Sig (Normalized) Sig (Original) amoxicillin 500 mg oral capsule (2 sources) Penicillin-class Antibacterial Start: 09-23-2020 take 1 capsule by mouth twice daily Amoxicillin 500 MG Oral Capsule Take 1 capsule twice daily Quantity: 20 Refills: 0 Ordered: 23-Sep-2020 Thuy Mccord Start : 23-Sep-2020 Active amoxicillin 875 mg / clavulanate 125 mg oral tablet (1 source) Penicillin-class Antibacterial Start: 04-26-2019 take 1 tablet by mouth twice daily Amoxicillin-Pot Clavulanate 875-125 MG Oral Tablet 1 tab bid for 10 days Quantity: 20 Refills: 0 Thuy Mccord Start : 26-Apr-2019 Active aspirin 81 mg oral tablet (9 sources) Nonsteroidal Anti-inflammatory Drug Aspirin 81 MG TABS TAKE 1 TABLET DAILY. Quantity: 0 Refills: 0 Ordered: 26-Apr-2019 DO Active Problems Active Problems Problem Classification Problem Date Documented Da te Episodic/Chronic Abdominal pain (10 sources) Right lower quadrant pain; Translations: [Right upper quadrant pain] Episodic Acute cerebrovascular disease (3 sources) Cerebral infarction, unspecified; Translations: [CEREBRAL INFARCTION, UNSPECIFIED] Onset: 04-17-2017 Chronic Anxiety disorders (7 sources) Post-traumatic stress disorder, unspecified; Translations: [Posttraumatic stress disorder] Onset: 04-17-2017 Chronic Coronary atherosclerosis and other heart disease (6 sources) Coronary arteriosclerosis; Translations: [Coronary atherosclerosis of unspecified type of vessel, [place] or graft] Chronic Diabetes mellitus without complication (6 sources) Hyperglycemia; Translations: [Prediabetes] Episodic Disorders of lipid metabolism (1 source) Hyperlipidemia, unspecified; Translations: [HYPERLIPIDEMIA, UNSPECIFIED] Onset: 04-17-2017 Chronic Diverticulosis and diverticulitis (3 sources) Diverticular disease; Translations: [Diverticulosis of colon (without mention of hemorrhage)] Chronic Essential hypertension (7 sources) Essential (primary) hypertension; Translations: [Benign essential hypertension] Onset: 04-17-2017 Chronic Genitourinary symptoms and ill-defined conditions (6 sources) Nocturia; Translations: [Nocturia] Episodic Headache, including migraine (1 source) Migraine, unspecified, not intractable, without status migrainosus; Translations: [MIGRAINE, UNSP, NOT INTRACTABLE, WITHOUT STATUS MIGRAINOSUS] Onset: 04-17-2017 Chronic Headache; including migraine (3 sources) Headache; Translations: [Headache] Episodic Immunizations and screening for infectious disease (3 sources) Patient encounter status; Translations: [Special screening examination for other specified viral diseases] Episodic Inflammatory conditions of male genital organs (5 sources) Prostatitis; Translations: [Prostatitis, unspecified] Episodic Malaise and fatigue (3 sources) Fatigue; Translations: [Other malaise and fatigue] Episodic Mycoses (3 sources) Candidiasis of mouth; Translations: [Candidiasis of mouth] Episodic Nausea and vomiting (1 source) Vomiting, unspecified; Translations: [VOMITING, UNSPECIFIED] Onset: 04-17-2017 Nutritional deficiencies (15 sources) Decreased vitamin D; Translations: [Vitamin deficiency] Episodic Other and unspecified benign neoplasm (6 sources) History of polyp of colon; Translations: [Personal history of colonic polyps] Episodic Other endocrine disorders (1 source) Hypogonadism; Translations: [Hypogonadism] Chronic Other endocrine disorders (6 sources) Testicular hypofunction; Translations: [Other testicular hypofunction] Chronic Other endocrine disorders (5 sources) Male hypogonadism; Translations: [Other testicular hypofunction] Chronic Other gastrointestinal disorders (5 sources) Splenomegaly; Translations: [Splenomegaly] Episodic Other liver diseases (5 sources) Hepatic fibrosis; 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 Other liver diseases (5 sources) Steatosis of liver; Translations: [Other chronic nonalcoholic liver disease] Chronic Other lower respiratory disease (3 sources) Cough; Translations: [Cough] Episodic Other male genital disorders (3 sources) Impotence; Translations: [Erectile dysfunction] Chronic Other male genital disorders (3 sources) Male erectile dysfunction, unspecified; Translations: [Erectile dysfunction] Chronic Other nutritional; endocrine; and metabolic disorders (6 sources) Cholesterol level - finding; Translations: [Lipoprotein deficiencies] Chronic Other nutritional; endocrine; and metabolic disorders (4 sources) Simple obesity ; Translations: [Obesity, unspecified] Chronic Other nutritional; endocrine; and metabolic disorders (4 sources) Morbid obesity; Translations: [Morbid obesity] Chronic Other nutritional; endocrine; and metabolic disorders (2 sources) Obesity; Translations: [Obesity, unspecified] Chronic Other screening for suspected conditions (not mental disorders or infectious disease) (11 sources) Decreased testosterone level ; Translations: [Serum iron low] Onset: 04-30-2019 Episodic Past or Other Problems Problem Classification Problem Date Documented Da te Episodic/Chronic Unclassified (1 source) Varicose veins of leg with pain, right Unclassified (3 sources) Patient encounter status; Translations: [History of Prostate cancer screening] Varicose veins of lower extremity (2 sources) Varicose veins of right lower extremity with pain; Translations: [Varicose veins of right lower extremity with pain] Onset: 02-01-2017 Episodic NEGATED: Highlighted row has not occurred!Residual codes; unclassified (8 sources) Disease Episodic Results Test Name Value Interpretation Reference Range Facil ity Vital Signs Date Time Vital Sign Value Performing Clinician Facility 08-12-2019 16:44-0400 BMI (Body Mass Index) 32.65 kg/m2 Panchito Shannon [facility]Frryfkw-Pkwrnml Work Phone: 08-12-2019 16:44-0400 Body Temperature 97.9 [degF] Panchito Shannon [facility] Work Phone: 08-12-2019 16:44-0400 Body weight 106.17 kg Panchito Shannon [facility] Work Phone: 08-12-2019 16:44-0400 BP Diastolic 82 mm[Hg] Panchito Tavallaee OL-Pktucvz-Iuw land Work Phone: 08-12-2019 16:44-0400 BP Systolic 136 mm[Hg] Panchito Tavallaee LG-Rqkafzg-Jqt land Work Phone: 08-12-2019 16:44-0400 BSA (Body Surface Area) 2.25 m2 Panchito Tavallaee LS-Czkswby-Iiqsnny Work Phone: 08-12-2019 16:44-0400 Height 180.34 cm Panchito Tavallaee WW-Ygoezdf-Mbn land Work Phone: 08-12-2019 16:44-0400 Pulse (Heart Rate) 82 /min Panchito Tavallaee [facility] [place] Work Phone: 08-12-2019 16:44-0400 Pulse Oximetry 96 % Panchito Iliaallaee RH-Pbjxdgw-Cug land Work Phone: 08-12-2019 16:44-0400 Respiratory Rate 16 /min Panchito Tavallaee HR-Tnpgzmz-Ip hland Work Phone: 08-12-2019 11:26-0400 BMI (Body Mass Index) 33.05 kg/m2 Panchito Tavallaee LU-Eftqmgk-Csievzf Work Phone: 08-12-2019 11:26-0400 Body weight 107.5 kg Panchito Iliaallaee SO-Kimzxkx-Iyk land Work Phone: 08-12-2019 11:26-0400 BP Diastolic 62 mm[Hg] Panchito Tavallaee MI-Sgufufh-Vji land Work Phone: 08-12-2019 11:26-0400 BP Systolic 154 mm[Hg] Panchito Tavallaee QX-Msyards-Hut land Work Phone: 08-12-2019 11:26-0400 BSA (Body Surface Area) 2.27 m2 Panchito Tavallaee GA-Unwntys-Klrdqga Work Phone: 08-12-2019 11:26-0400 Height 180.34 cm Panchito Shannon AQ-Hqmntwq-Dos land Work Phone: 08-12-2019 11:26-0400 Pulse (Heart Rate) 115 /min Panchito Shannon -[facility] [place] Work Phone: 04-26-2019 12:10-0500 BMI (Body Mass Index) 35.98 kg/m2 Thuy Hannah [facility] Work Phone: 04-26-2019 12:10-0500 Body weight 117.03 kg Thuy Hannah [facility] Work Phone: 04-26-2019 12:10-0500 BP Diastolic 84 mm[Hg] Thuy Hannah [facility] Work Phone: 04-26-2019 12:10-0500 BP Systolic 136 mm[Hg] Thuy Hannah [facility] Work Phone: 04-26-2019 12:10-0500 BSA (Body Surface Area) 2.35 m2 Thuy Hannah [facility] Work Phone: 04-26-2019 12:10-0500 Height 180.34 cm Thuy Hannah [facility] Medicine Work Phone: 04-26-2019 12:10-0500 Pulse (Heart Rate) 76 /min Thuy Hannah [facility] Work Phone: 07-04-2018 11:50-0400 BP Diastolic 68 mm[Hg] Dallin Dallas [facility] 07-04-2018 11:50-0400 BP Systolic 102 mm[Hg] Dallin Dallas [facility] 07-04-2018 11:50-0400 Pulse (Heart Rate) 57 /[facility] 11:50-0400 Pulse Oximetry 95 % [facility] 09:50-0400 Respiratory Rate 18 /min [facility] 07:26-0400 BMI (Body Mass Index) 33.91 kg/m2 Dallin Dallas [facility] 07-04-2018 07:26-0400 Height 182.9 cm Dallin Dallas [facility] 07-04-2018 07:26-0400 Weight 113.4 kg Dallin Dallas [facility] 07-04-2018 07:20-0400 Body Temperature 97.9 [degF] Dallin Dallas [facility] 02-01-2017 15:11-0500 BP Diastolic 77 mm[Hg] Nivia Cazares [facility] Work Phone: 02-01-2017 15:11-0500 BP Systolic 133 mm[Hg] Nivia Cazares [facility] Work Phone: 02-01-2017 15:11-0500 Pulse (Heart Rate) 66 /min Nivia Cazares [facility] Work Phone: 02-01-2017 15:09-0500 BMI (Body Mass Index) 35.55 kg/m2 Nivia Cazares [facility] Work Phone: 02-01-2017 15:09-0500 Height 180.3 cm Nivia Cazares [facility] Work Phone: 02-01-2017 15:09-0500 Respiratory Rate 16 /min Nivia Cazares [facility] Work Phone: 02-01-2017 15:09-0500 Weight 115.62 kg Nivia Cazares [facility] Work Phone: Encounters Encounter Date Encounter Type Care Provider Facility Start: 08-11-2022 End: 11-25-2022 Physical therapy management JAKE MCMAHON MD [facility] Start: 09-25-2020 Chart Update Thuy Hannah Work Phone: [facility] Work Phone: Start: 09-23-2020 Phys/qhp telephone evaluation 11-20 min Thuy Hannah Work Phone: [facility] Work Phone: Start: 09-10-2020 Office outpatient visit 15 minutes Thuy Hannah Work Phone: [facility] Work Phone: Start: 05-13-2020 End: 05-13-2020 Orders Only Mehnaz Price Work Phone: [facility] Start: 08-12-2019 Patient encounter procedure Panchito Tavallaee YO-Fwongva-Sufercq Work Phone: Start: 07-30-2019 Patient encounter procedure Panchito Tavallaee BQ-Pgolfyt-Sqrprgv Work Phone: Start: 07-08-2019 Patient encounter procedure Panchito Tavallaee JR-Fjbhgnb-Biywqga Work Phone: Start: 06-10-2019 Patient encounter procedure Panchito Tavallaee WF-Znbsotq-Prxnbbr Work Phone: Start: 05-21-2019 Patient encounter procedure Thuy Hannah -[facility] Work Phone: Start: 04-26-2019 Patient encounter procedure Thuy Hannah [facility] Work Phone: Start: 08-14-2018 End: 08-17-2018 Patient [facility] Start: 07-04-2018 End: 07-04-2018 Patient encounter procedure DALLIN REYNOLDS [facility] Start: 07-04-2018 End: 07-04-2018 Patient encounter procedure Dallin Reynolds [facility] Work Phone: [facility] Start: 06-28-2018 End: 06-29-2018 Patient encounter procedure [facility]ASON Fanny [facility] Start: 02-10-2018 End: 02-10-2018 Emergency department patient visit Fernando Beaulieu Facility:[place] Start: 12-29-2017 End: 01-01-2018 Patient encounter procedure [facility] Start: 12-09-2017 End: 12-09-2017 Emergency department patient visit [facility] Start: 09-21-2017 End: 09-21-2017 Patient encounter Gumaro Castillo Facility:[facility] Start: 07-27-2017 End: 07-28-2017 Patient encounter Laci Higgins Bains Facility:[facility] Start: 06-05-2017 End: 06-06-2017 Patient [facility] Start: 04-19-2017 End: 04-19-2017 Patient encounter MANGO ESPINAL Facility:[facility] Start: 04-17-2017 End: 04-18-2017 Evaluation and management of inpatient PROVIDER UNKNOWN Facility:[facility] Start: 04-13-2017 End: 04-13-2017 Patient encounter MANGO ESPINAL Facility:[facility] Start: 04-05-2017 Patient encounter eze Alejandra JaraXavi Sage Facility:[place] Start: 03-17-2017 End: 03-18-2017 Patient encounter MANGO ESPINAL Facility:[facility] Start: 03-08-2017 End: 03-09-2017 Patient encounter MANGO ESPINAL Facility:[facility] Start: 02-01-2017 End: 02-01-2017 Ambulatory [facility] Start: 02-01-2017 Office outpatient ne w 30 minutes [facility] Work Phone: [facility] Start: 01-30-2017 Ambulatory [facility] Amb[facility] Start: 12-19-2016 End: 12-20-2016 Ambulatory DEFAULT PHYSICIAN Facility:[facility] Patient encounter procedure Thuy Hannah Work Phone: -[facility] Work Phone: Procedures Date Procedure Procedure Detail Performing Clinician Start: 08-12-2019 Assay of prostate sp ecific antigen total Panchito Tavallaee Start: 08-12-2019 Assay of testosterone total Panchito Tavallaee Start: 08-12-2019 Measurement of total hemoglobin concentration and hematocrit Panchito Tavallaee Start: 04-26-2019 Ultrasound Scrotum W ith Dopplers Thuy Hannah Start: 04-26-2019 US Bilateral Extremi ty, Nonvascular, Real Time with Image Documentation, Limited, Anatomic Specific Thuy Hannah Start: 08-14-2018 Dup-scan xtr veins unilateral/limited study [facility] Start: 07-04-2018 Cardiac catheterization Dallin Rodolfo [place] Work Phone: Start: 06-28-2018 25 hydroxy includes fractions if performed [facility] Start: 06-28-2018 Assay of thyroid sti mulating hormone tsh [facility] Start: 06-28-2018 Blood typing serologic abo [facility] Start: 06-28-2018 Comprehensive metabo lic panel [facility] Start: 06-28-2018 Lipid panel [facility] Start: 12-29-2017 Myocardial spect mul tiple studies [facility] Start: 12-29-2017 Cv strs tst xers&/or rx cont ecg w/o i&r [facility] Start: 12-29-2017 Echo tthrc r-t 2d w/ wom-mode compl spec&colr d [facility] Start: 12-09-2017 Radiologic exam ches t single view [facility] Start: 12-09-2017 Ct head/brain w/o co ntrast material [facility] Start: 12-09-2017 Assay of free thyroxine [facility] Start: 12-09-2017 Assay of thyroid sti mulating hormone tsh [facility] Start: 12-09-2017 Blood count complete auto&auto difrntl wbc [facility] Start: 12-09-2017 Comprehensive metabo lic panel [facility] Start: 12-09-2017 D-DIMER, QUANTITATIVE G [facility] Start: 12-09-2017 Prothrombin time [facility] Start: 12-09-2017 T3 free mass conc [facility] Start: 12-09-2017 Thromboplastin time partial plasma/whole blood [facility] Start: 12-09-2017 Troponin I.cardiac mass conc [facility] Start: 12-09-2017 EKG 12-LEAD [facility] Start: 04-18-2017 MEASUREMENT OF MULTI CRAFT MAINTENANCE TECHNICIAN E LECTR ACTIVITY, JUDO INSTRUCTOR APPROACH MARLYN CARRILLO Start: 10-28-2016 Colonoscopy Thuy pennington Work Phone: Plan of Treatment Date Care Activity Detail Author Start: 11-20-2027 Tetanus vaccination [facility] Start: 06-08-2021 Patient encounter procedure MCRANNUAL, Provider: Thuy Hannah, Status: Pen, Time: 9:20 AM [facility] Work Phone: Start: 01-28-2020 Assay of prostate specific antigen total Prostate Specific Antigen [facility] Work Phone: Start: 01-28-2020 Assay of testosteron e total Testosterone, Level [facility] Work Phone: Start: 01-28-2020 Measurement of total hemoglobin concentration and hematocrit Hemoglobin + Hematocrit [facility] Work Phone: Start: 10-29-2019 Influenza vaccinatio n given Sequential Influenza Vaccine (#1) [facility] Start: 10-28-2018 Influenza vaccinatio n given SEQUENTIAL INFLUENZA VACCINE (Season Ended) [facility] Start: 04-05-2017 End: 04-05-2017 Ambulatory [facility] Start: 10-28-2016 Influenza vaccination SEQUENTI AL INFLUENZA VACCINE (#1) [facility] Work Phone: Start: 07-07-2015 Administration of he rpes zoster vaccine Zoster Vaccines (1 of 2) [facility] Start: 07-07-2015 Screening for malign ant neoplasm of colon [facility] Start: 07-07-1983 Hepatitis C antibody , confirmatory test Hepatitis C Screening [facility] Start: 1981 COVID-19 Vaccine (1 of 2) COVID-19 Vaccine (1 of 2) [facility] Start: 1980 HIV screening HIV Screening [facility] Start: 1977 Adolescent depressio n screening assessment Depression Screening (PHQ9) [facility] Start: 1968 History and physical examination, annual for health maintenance Wellness Visit [facility] Start: 1965 Prostate specific antigen measurement PSA Level [facility] Start: 1965 Screening colonoscopy COLONOSCOPY [facility] Work Phone: Start: 1965 Screening for malign ant neoplasm of colon Colorectal Cancer Screening: Colonoscopy [facility] Start: 1965 Tetanus vaccination TETANUS EVERY 10 YR [facility] Work Phone: Cardiac catheterization Cardiac Catheterization Routine 07/04/2018 9:24 AM EDT [facility] End: 04-04-2018 Ultrasound venous insufficiency right leg Ultrasound venous insufficiency right leg Routine Varicose veins of leg with pain, right 1 Occurrences starting 02/01/2017 until 04/04/2018 [facility] Work Phone: NEGATED: Highlighted row has been ruled out! Planned Goals not documented FQ-Faqzbtt-Tbxbzvr Work Phone: Immunizations Immunization Date Immunization Notes Care Provider Fa bradley 05-16-2020 Pfizer-BioNTech COVI D-19 Vacc 30 MCG/0.3ML Intramuscular Suspension Thuy D Hannah Work Phone: [facility] Work Phone: 04-25-2020 Pfizer-BioNTech COVI D-19 Vacc 30 MCG/0.3ML Intramuscular Suspension Thuy D Hannah Work Phone: [facility] Work Phone: 12-10-2019 Influenza, injectabl e, Madin Post Canine Kidney, preservative free, quadrivalent Thuy Delgadokins Work Phone: [facility] Work Phone: 12-11-2018 influenza, injectabl e, quadrivalent, preservative free Thuy Delgadokins Work Phone: [facility] Work Phone: 11-27-2018 influenza, seasonal, injectable Thuy Delgadokins Work Phone: [facility] Work Phone: Payers Date Payer Category Payer Unknown 2017 Medicare 2017 Unknown [id number] 2015 Medicare [id number] 2013 Medicare MEDICARE MEDICAR E PART A & B xxxxxxxxxx 2013-Present [place] xxxxxxxxxx [id number] 2013 Medicare [id number] 2013 Medicare MEDICARE MEDICAR E PART A & B [id number] 2013-Present [place] [id number] 1965 Unknown [id number] 1965 Unknown [id number] 1965 Unknown [id number] 1965 Unknown [id number] 1965 Unknown [id number] 1965 Unknown [id number] 1965 Unknown [id number] 1965 Unknown [id number] 1965 Unknown [id number] Private Health Insurance [id number] Social History Date Type Detail Facility Start: 02-01-2017 Tobacco smoking stat 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 (finding) [facility] Tobacco smoking status No Smokin g Status Entered [facility] Sex Assigned At Male [facility] NEGATED: Highlighted row - - [facility] Work Phone: Medical Equipment Procedure Code Equipment Code Equipment Origin al Text Equipment Identifier Dates Closure 6fr Angioseal Vip - [id number] Start: 07-04-2018 Closure 6fr Angioseal Vip - [id number] Start: 07-04-2018 Functional Status Date Assessment Result Facility 08-11-2022 Functional Status Home Living Ad ditional Information OBJECTIVE BP: 137/77 Gait: amb with no AD, ER of hips, slow pace, limited trunk rotation, minimal arm swing, slight limp Transfers: able to perform without UEs Coordination: arm rolling, hand grestures - normal ; toe tapping, limited with RLE 5x Sit to stands: 22 seconds [place] out of 56 Activity-Specific Balance Confidence Scale (ABC): 53% [facility] NEGATED: Highlighted row Functional performance Functional status health issues are not documented Disease [facility] Medicine Work Phone: Mental Status Date Assessment Result Facility NEGATED: Highlighted row Cognitive function [Interpretation] Cognitive status health issues are not documented Disease [facility] Work Phone: Chief complaint Narrative - Reported 09-10-2020 Note Date & Type Note Facility 09-10-2020 Chief complaint Narrative - Reported An interactive audio and video telecommunication system which permits real time communications between the patient (at the originating site) and provider (at the distant site) was utilized to provide this telehealth service.Verbal consent was requested and obtained from ARCENIO BURNHAM on this date, 09/10/2020 04:00 PM , for a telehealth visit.VIRTUAL: [phone]. Cpap not working [facility] Work Phone: Evaluation + Plan note Note Date & Type Note Facility Evaluation + Plan note No data available for this section [facility] History of Present illness Narrative Note Date & Type Note Facility History of Present illness Narrative VIRTUAL APPOINTMENT BEING PERFORMED DUE TO COVID-19 (CORONAVIRUS)Presents today for FACE TO FACE FOR A NEW CPAP MACHINE. C/O HIS MACHINE HAS BEEN BLOWING OUT OUT INTENSE PRESSURE OF AIR THAT CAUSES JOHANNY TO BE UNABLE TO BREATHE. SINCE HE HAS BEEN UNABLE TO USE HIS MACHINE, HE IS NOW HAVING TROUBLE SLEEPING AND IS TIRED THROUGHOUT THE DAY. HE HAS HAD HIS CURRENT MACHINE FOR 6 YEARS. IT IS NOT WORKING CORRECTLY AND IT IS BROKEN BEYOND REPAIR. IT IS MEDICALLY NECESSARY FOR HIM TO HAVE A NEW MACHINE.PARKINSON'S- STABLEDIVERTICULOSIS- STABLE [facility] Work Phone: History of Present illness Narrative Note Date & Type Note Facility History of Present illness Narrative TELEPHONE APPOINTMENT BEING PERFORMED DUE TO COVID-19 (CORONAVIRUS)Presents today for C/O SORE THROAT, NASAL CONGESTION, AND NAUSEA modifying factors consists of HIS IS EXPERIENCING SIMILAR SYMPTOMS associated symptoms consist of NO SINUS TENDERNESS, SOB, COUGH, OR CP prior treatment consists of medication NONETESTOSTERONE- REQUESTING 21 G NEEDLES BE SENT TO [facility]. 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, right Summary Purpose Family History No Family History Records Found Mother Name Dates Details Family history of Blockage o f coronary artery of heart(410.90, I24.0) Status:Active Family history of type 2 ivan betes mellitus(V18.0, Z83.3) Status:Active Family history of cardiac di sorder(V17.49, Z82.49) Status:Active Family history of hyperchole sterolemia(V18.19, Z83.42) Status:Active Family history of hypertensi on(V17.49, Z82.49) Status:Active Family history of malignant neoplasm of skin(V16.8, Z80.8) Status:Active Family history of rheumatoid arthritis(V17.7, Z82.61) Status:Active Father Name Dates Details Family history of myocardial infarction(V17.3, Z82.49) Status:Active Family history of Blockage o f coronary artery of heart(410.90, I24.0) Status:Active Family history of cataracts( V19.19, Z83.518) Status:Active Family history of depression (V17.0, Z81.8) Status:Active Family history of colonic di verticulitis(V18.59, Z83.79) Status:Active Family history of glaucoma(V 19.11, Z83.511) Status:Active Family history of hyperchole sterolemia(V18.19, Z83.42) Status:Active Family history of hypertensi on(V17.49, Z82.49) Status:Active Family history of H/O heart artery stent(V45.82, Z95.5) Status:Active Family history of ulcerative colitis(V18.59, Z83.79) Status:Active Brother Name Dates Details Family history of type 2 ivan betes mellitus(V18.0, Z83.3) Status:Active Mother Name Dates Details Family history of Blockage o f coronary artery of heart(410.90, I24.0) Status:Active Family history of type 2 ivan betes mellitus(V18.0, Z83.3) Status:Active Family history of cardiac di sorder(V17.49, Z82.49) Status:Active Family history of hyperchole sterolemia(V18.19, Z83.42) Status:Active Family history of hypertensi on(V17.49, Z82.49) Status:Active Family history of rheumatoid arthritis(V17.7, Z82.61) Status:Active Family history of malignant neoplasm of skin(V16.8, Z80.8) Status:Active Father Name Dates Details Family history of Blockage o f coronary artery of heart(410.90, I24.0) Status:Active Family history of cataracts( V19.19, Z83.518) Status:Active Family history of depression (V17.0, Z81.8) Status:Active Family history of colonic di verticulitis(V18.59, Z83.79) Status:Active Family history of glaucoma(V 19.11, Z83.511) Status:Active Family history of hyperchole sterolemia(V18.19, Z83.42) Status:Active Family history of hypertensi on(V17.49, Z82.49) Status:Active Family history of H/O heart artery stent(V45.82, Z95.5) Status:Active Family history of ulcerative colitis(V18.59, Z83.79) Status:Active Family history of myocardial infarction(V17.3, Z82.49) Status:Active Brother Name Dates Details Family history of type 2 ivan betes mellitus(V18.0, Z83.3) Status:Active Mother Name Dates Details Family history of Blockage o f coronary artery of heart(410.90, I24.0) Status:Active Family history of type 2 ivan betes mellitus(V18.0, Z83.3) Status:Active Family history of cardiac di sorder(V17.49, Z82.49) Status:Active Family history of hyperchole sterolemia(V18.19, Z83.42) Status:Active Family history of hypertensi on(V17.49, Z82.49) Status:Active Family history of rheumatoid arthritis(V17.7, Z82.61) Status:Active Family history of malignant neoplasm of skin(V16.8, Z80.8) Status:Active Father Name Dates Details Family history of Blockage o f coronary artery of heart(410.90, I24.0) Status:Active Family history of cataracts( V19.19, Z83.518) Status:Active Family history of depression (V17.0, Z81.8) Status:Active Family history of colonic di verticulitis(V18.59, Z83.79) Status:Active Family history of glaucoma(V 19.11, Z83.511) Status:Active Family history of hyperchole sterolemia(V18.19, Z83.42) Status:Active Family history of hypertensi on(V17.49, Z82.49) Status:Active Family history of H/O heart artery stent(V45.82, Z95.5) Status:Active Family history of ulcerative colitis(V18.59, Z83.79) Status:Active Family history of myocardial infarction(V17.3, Z82.49) Status:Active Brother Name Dates Details Family history of type 2 ivan betes mellitus(V18.0, Z83.3) Status:Active Unknown Family Member Name Dates Details Family history of malignant neoplasm of skin: Mother(V16.8, Z80.8) Comments:MELANOMA; Status:Active Family history of myocardial infarction: Father(V17.3, Z82.49) Comments:AGE 58; Status:Active Family history of ulcerative colitis: Father(V18.59, Z83.79) Status:Active H/O heart artery stent: Fath er(V45.82, Z95.5) Status:Active Family history of rheumatoid arthritis: Mother(V17.7, Z82.61) Status:Active Family history of hypertensi on: Mother, Father(V17.49, Z82.49) Status:Active Family history of hyperchole sterolemia: Mother, Father(V18.19, Z83.42) Status:Active Family history of cardiac di sorder: Mother(V17.49, Z82.49) Status:Active Family history of glaucoma: Father(V19.11, Z83.511) Status:Active Family history of colonic di verticulitis: Father(V18.59, Z83.79) Status:Active Family history of type 2 ivan betes mellitus: Mother, Brother(V18.0, Z83.3) Status:Active Family history of depression : Father(V17.0, Z81.8) Status:Active Family history of cataracts: Father(V19.19, Z83.518) Status:Active Blockage of coronary artery of heart: Mother, Father Status:Active Unknown Family Member Name Dates Details Blockage of coronary artery of heart: Mother, Father Status:Active Family history of cataracts: Father(V19.19, Z83.518) Status:Active Family history of depression : Father(V17.0, Z81.8) Status:Active Family history of type 2 ivan betes mellitus: Mother, Brother(V18.0, Z83.3) Status:Active Family history of colonic di verticulitis: Father(V18.59, Z83.79) Status:Active Family history of glaucoma: Father(V19.11, Z83.511) Status:Active Family history of cardiac di sorder: Mother(V17.49, Z82.49) Status:Active Family history of hyperchole sterolemia: Mother, Father(V18.19, Z83.42) Status:Active Family history of hypertensi on: Mother, Father(V17.49, Z82.49) Status:Active Family history of rheumatoid arthritis: Mother(V17.7, Z82.61) Status:Active H/O heart artery stent: Fath er(V45.82, Z95.5) Status:Active Family history of ulcerative colitis: Father(V18.59, Z83.79) Status:Active Family history of malignant neoplasm of skin: Mother(V16.8, Z80.8) Comments:MELANOMA; Status:Active Family history of myocardial infarction: Father(V17.3, Z82.49) Comments:AGE 58; Status:Active Unknown Family Member Name Dates Details Blockage of coronary artery of heart: Mother, Father Status:Active Family history of cataracts: Father(V19.19, Z83.518) Status:Active Family history of depression : Father(V17.0, Z81.8) Status:Active Family history of type 2 ivan betes mellitus: Mother, Brother(V18.0, Z83.3) Status:Active Family history of colonic di verticulitis: Father(V18.59, Z83.79) Status:Active Family history of glaucoma: Father(V19.11, Z83.511) Status:Active Family history of cardiac di sorder: Mother(V17.49, Z82.49) Status:Active Family history of hyperchole sterolemia: Mother, Father(V18.19, Z83.42) Status:Active Family history of hypertensi on: Mother, Father(V17.49, Z82.49) Status:Active Family history of rheumatoid arthritis: Mother(V17.7, Z82.61) Status:Active H/O heart artery stent: Fath er(V45.82, Z95.5) Status:Active Family history of ulcerative colitis: Father(V18.59, Z83.79) Status:Active Family history of malignant neoplasm of skin: Mother(V16.8, Z80.8) Comments:MELANOMA; Status:Active Family history of myocardial infarction: Father(V17.3, Z82.49) Comments:AGE 58; Status:Active Advance Directives No Advanced Directives Records FoundLatest Code Status on File Code Status Date Activated Date Inactivated Comments Full Code 07/04/2018 7:11 AM Documents on File Type Date Recorded Patient Nitroglycerin Distributor Hetal calvert Advance Directives and Edwar lincoln Will 07/04/2018 7:02 AM Discharge Instructions * Instructions* Linda Corrales RN - 07/04/2018 Post Procedure Site Care Instructions After an Angiogram, Peripheral Vascular Procedure, Cardiac Cath, Stent or Angioplasty. During your procedure, your doctor made an opening in your artery. There are many different ways toprevent bleeding from the puncture site. We use closure devices or apply direct manual pressure to the site. Your device was: ? Angioseal ? Starclose ? Mynx ? Perclose ? TR Band For all Procedures: Drink 1 to 2 glasses fo fluid every hour until bedtime to flush the dye used out of the kidneys. Avoid caffeine and alcohol. Do not smoke for 24 hours after the procedure. Smoking greatly increases the chances of a blood clot forming in the artery. Avoid all types of tobacco. You may feel drowsy for the next several hours if you received sedation during the procedure. Limit these activities for the rest of the day: - Do not drive or operate hazardous machinery or instruments. - Do not make important business or personal decisions or sign legal papers. Wound Care: Keep the site clean and dry for 24 hours Apply a new band-aid right away if it becomes wet You may shower after 24 hours. Gently clean the site using mild soap and water Dry the area by blotting it with a clean towel. Do not scrub the area Do not apply powders or lotions to the area. Do not rub or scratch the wound. Do not submerge the site in water for 5 days Watch for signs of infection and call your doctor if they occur - Redness - Swelling - Drainage - Temperature greater than 101 ? What to Expect With Your Groin Site: After the procedure, your groin may feel numb, but this should wear off in about one hour. Soreness and tenderness may last about one week. Possible bruising could occur and last for about 2weeks. You may develop a lump the size of a dime or quarter and this could last up to 6 weeks. ? Care instructions for Groin and Leg Closures Keep a closure device card in your wallet. If re-puncture of the artery needs to occur in the next three months, show this card to your healthcare provider. For the first 2 days if a certain activity causes pain, do not do it. No lifting over 10 pounds forone week or until the wound heals. Limit climbing stairs and excessive bending, squatting, or stooping. Do not take a tub bath, submerge or soak wound in water, for the next 5 days or until the the woundis healed. ? Care Instructions for Wrist and Arm Closures Do not lift anything heaver than 10 pounds with affected arm for 7 days. Do no twist or turn a jar lift or anything else using the affected arm for 7 days. Do not submerge the site in water, such as bathing or washing dishes for 7 days. Do not use the affected hand for any continuous work that would cause flexion or extension of your wrist for 7 days, such as painting, washing windows, or using power tools. Call your Doctor or 911 Immediately if: Bright red, pulsating bleeding, or oozing of blood occurs, that does not stop after lying flat and applying firm pressure to your groin for at least 20 minutes. Increased swelling of a new hematoma, which is a firm, raising area that forms at the site. Changes in groin/leg or wrist/hand area occur, including unusual pain, numbness, tingling, coolness, loss of sensation, and change in color or temperature. Signs of infection: Swelling at site, redness, drainage, warm to touch, fever over 101 degrees and chills, or the site does not heal.STOP taking IMDUR, continue rest of home medications, remove Safeguard tomorrow evening, no tub baths, swimming or hot tubs for 5 days, * Attachments The following attachments cannot be sent through Care Everywhere. * CARDIAC CATHETERIZATION: LEFT (MAORI) documented in this encounter Chief Complaint * A telephone visit (audio only) between the patient (at the originating site) and the provider (at the distant site) was utilized to provide this telehealth service. * Verbal consent was requested and obtained from ARCENIO BURNHAM on this date, 09/23/2020 03:00 PM , fora telehealth visit. * VIRTUAL: [phone]. Congestion, PRADO, nausea. Additional Source Comments (unrecognized sect ion and content) No Status Records FoundNo Status Records FoundNo Status Records FoundNo Status Records FoundNo Status Records FoundNo Status Records FoundNo Status Records FoundNo Status Records FoundNo Status Records FoundNo Status Records Found INFORMATION SOURCE (unrecogn ized section and content) DATE CREATED AUTHOR AUTHOR'S ORGANIZ ATION 09/06/2017 [facility] DATE CREATED AUTHOR AUTHOR'S ORGANIZ ATION 12/15/2017 [facility] DATE CREATED AUTHOR AUTHOR'S ORGANIZ ATION 01/22/[address] [facility] DATE CREATED AUTHOR AUTHOR'S ORGANIZ ATION 02/16/2018 [facility] DATE CREATED AUTHOR AUTHOR'S ORGANIZ ATION 08/17/2018 [facility] DATE CREATED AUTHOR AUTHOR'S ORGANIZ ATION 10/05/2018 [facility] DATE CREATED AUTHOR AUTHOR'S ORGANIZ ATION 09/24/2020 [facility] DATE CREATED AUTHOR AUTHOR'S ORGANIZ ATION 09/26/2020 [facility] DATE CREATED AUTHOR AUTHOR'S ORGANIZ ATION 12/17/2022 [facility] Dallin Dallas MD - 07/03/2018 4:17 PM EDT H&P Notes (unrecognized sect ion and content) Dallin Dallas M.D. [facility] [place] [address] June 28, 2018 Steve Barrios MD [address] [place] [address] RE: Arcenio Burnham : [address] Barrios: CHIEF COMPLAINT: 1. Chest pain. 2. Hospitalization at [facility] on 06/25, for chest discomfort. HISTORY OF PRESENT ILLNESS: I had the pleasure of seeing Mr. Burnham in our office on 06/28/2018. He is a pleasant 52-year-old gentleman who I first saw on 01/23/2018. He has a history of parkinsonism that is well controlled, which he has had since 2010. He had a catheterization in 2000 that was unremarkable. In 2013, he was hospitalized with chest pain, had a Cardiolite stress test on 05/23/2013, was abnormal. He went to the [place] and had a cardiac catheterization in [place] at [facility] and he was told that it was okay, although I do not have the report. He had been developing increasing loss of energy and shortness of breath with exertion as well as chest pain with exertion. He was active in the yard at the beginning of the summer of 2017, but by the end of the summer in 2017 he had limited yard work because of shortness of breath, loss of energy, chest pain. He had a cardiac stress test on 12/29/2017, that was abnormal showing a moderate intensity defect in the inferolateral recently consistent with ischemia. He had an echocardiogram on 12/29/2017, that demonstrated EF of 55% with trivial mitral regurgitation, mild aortic insufficiency. He had an EGD by Dr. Medina in 11/2017, where he had a moderate size hiatal hernia with mild diffuse gastritis. He had grade A esophagitis with moderate size sliding hiatal hernia. Colonoscopy was unremarkable. He was hospitalized in the emergency room on 12/09/2017, for chest pain and myocardial infarction was ruled out. Dr. Barrios who had ordered the stress test and echocardiogram. We have been attempting medical therapy. However, he has continued to have chest pain and chest discomfort. He does use a treadmill everyday for approximately 20 to 30 minutes, his chest pain will sometimes worsen on the treadmill. He will occasionally have it when he is not working and therefore, he has a very atypical quality also. We placed him on full medical therapy including Lopressor and Imdur. On 06/24, Monday, evening, he developed chest pain along with left arm discomfort radiating to the left side of his neck, continued during the night and in the following morning on Monday. He took some nitroglycerin and his pain did not resolve and therefore, went to [facility] and was admitted overnight. His troponins were negative and I am seeing him in discharge. He feels markedly fatigued. He is still able to do the treadmill but has more shortness of breath and he does develop worsening chest pain on the treadmill. He has had no PND, orthopnea. No unusual pedal edema. Denies any syncope, near-syncope. He has no indigestion and food does not affect his discomfort. Again it can occur at any time during the day but does seem to be worsen with exercise consistent with angina. CARDIAC RISK FACTORS: Hypertension: Positive. Hyperlipidemia: Positive. Peripheral Vascular Disease: Negative. Other Family Members: Positive. Father had an AR at 52. Smoking: Negative. Diabetes: Negative. MEDICATIONS: At home, he is currently on aspirin 81 mg daily, Lipitor 40 mg daily, Sinemet SR 25/100 q.i.d., Cardizem 60 mg b.i.d., Comtan 200 mg q.i.d., Imdur 30 mg daily, Lopressor 50 mg b.i.d., Prilosec 40 mg daily, Paxil 75 mg every morning, perphenazine 2 mg nightly, ranitidine 150 mg b.i.d., Requip 2 mg daily, AndroGel, Desyrel 200 mg nightly. PAST MEDICAL HISTORY: 1. He had parkinsonism since 2010. 2. History of kidney stones 30 years ago. 3. Has been treated for hypertension, hyperlipidemia, under good control. 4. Diverticulitis. 5. Catheterization is 2000 and on 09/24/2013, at [facility] and told it was okay. . 6. He has had cholecystectomy. 7. Vasectomy. 8. Appendectomy. FAMILY HISTORY: Father had AR at age 52. Mother had heart disease. Two brothers, 55 and 49, are in good health. SOCIAL HISTORY: He is for the second time for 13 years, has a total of 6 children with 4 children at home; ages 17, 15, 14, and 5; 17-year-old girl is a senior, goes to [employer] for nursing, will graduate within the next month. He does not smoke or drink alcohol. 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 He is now exercising on a treadmill. REVIEW OF SYSTEMS: Cardiac as above. Other systems reviewed including constitutional, eyes, ears, nose and throat, cardiovascular, respiratory, GI, , musculoskeletal, integumentary, neurologic, psychiatric, endocrine, hematologic and allergic/immunologic and are negative except for what is described above. No weight loss or weight gain. No change in bowel habits, no blood in stools. No fever, sweats or chills. PHYSICAL EXAMINATION: VITAL SIGNS: His blood pressure was at 110/60 in both arms with a heart rate of 70 and regular. Respirations were 18. O2 saturation was 98%. Weight is 260 pounds. GENERAL: He is a pleasant 52-year-old gentleman. Denied pain. He was oriented to person, place and time. Answered questions appropriately. SKIN: No unusual skin changes. HEENT: The pupils are equally round and reactive to light and accommodation. Extraocular movements were intact. Mucous membranes were dry. NECK: No JVD. Good carotid pulses. No carotid bruits. No lymphadenopathy or thyromegaly. CARDIOVASCULAR EXAM: S1 and S2 were normal. No S3 or S4. Soft systolic blowing type murmur. No diastolic murmur. PMI was normal. No lift, thrust, or pericardial friction rub. LUNGS: Quite clear to auscultation and percussion. ABDOMEN: Soft and nontender. Good bowel sounds. EXTREMITIES: Good femoral pulses. Good pedal pulses. No pedal edema. Skin was warm and dry. No calf tenderness. Nail beds pink. Good cap refill. PULSES: Bilateral symmetrical radial, brachial and carotid pulses. No carotid bruits. Good femoral and pedal pulses. NEUROLOGIC EXAM: Within normal limits. PSYCHIATRIC EXAM: Within normal limits. LABORATORY DATA: From [facility] on 06/26/2018. His white count was 7.9, hemoglobin 14.6, platelet count 148. Glucose 222, BUN 13, creatinine 1.0, GFR greater than 60, sodium 135, potassium 3.5, calcium 8.7, magnesium 1.7, troponin is less than 0.03. EKG showed sinus rhythm with nonspecific ST changes with no significant change from previous EKG. Echocardiogram on 12/29/2017, showed normal LV function, EF of 55% with mildly dilated left atrium and right atrium, and trivial mitral regurgitation. Cardiac stress test on 12/29/2017, was abnormal showing a small perfusion defect of moderate intensity in anterolateral region during stress consistent with ischemia, I felt there was anterior wall ischemia also. IMPRESSION: 1. Chest pain consistent with angina with left arm discomfort, left neck discomfort, worse with exercise consistent with angina. 2. Hospitalization at [facility] on 06/25/2018, being discharged on 06/26 with negative troponins. 3. Abnormal Myoview stress test with inferolateral ischemia on 12/29/2017. 4. Normal LV function, EF of 60% by an echocardiogram on 12/29/2017. 5. Normal cardiac catheterization in 2000. 6. Catheterization at [facility] in 2013, where he was told everything was okay, although I do not have the actual report. 7. Hypertension, well controlled. 8. Hyperlipidemia, well controlled. 9. Parkinsonism since 2010, well controlled. 10. Strong family history of coronary artery disease with father having a AR at 52. PLAN: Proceed with cardiac catheterization on 07/04 in [place]. DISCUSSION: Mr. Burnham is on full medical therapy with nitrates and beta blockers. However, he continues to have chest pain and was recently hospitalized at [facility] for chest pain. His stress test was mildly abnormal showing inferolateral wall ischemia versus infarct with it being more concern with an ischemia. We had tried full medical therapy. He has also exercised on a regular basis at home on a treadmill, his chest pain continues and does seem to be worse with activity. I think it is reasonable since he continued to have chest pain on full medical therapy consistent with angina to proceed with a cardiac catheterization to define his anatomy. I have discussed this approach and he agrees. I did give him the option of going to cardiac rehab first. Since he has already exercising at home, he feels rehab probably would not be of great benefit and I do tend to agree. I made no change in his medications. We will proceed with a cardiac catheterization this coming Monday. Thank you very much for allowing me the privilege of seeing Mr. Burnham. If you have any questions on my thoughts, please do not hesitate to contact me. Sincerely, DALLIN DALLAS [id number] Doc#: [id number] documented in this encounter Quick Note - Linda Corrales RN - 07/04/2018 1:02 PM EDTQukip Note - Linda Corrales RN - 07/04/2018 12:43 PM EDTQuick Note - Linda Corrales RN - 07/04/2018 9:45 AM EDT Miscellaneous Notes (unrecog nized section and content) Discharge instructions reviewed, instructed patient to STOP taking Imdur per Dr. Dallas's orders, voiced understanding, copy of instructions given to patient Sat HOB up 60 degrees, no change in R groin site, ordered lunch, no signs of distress Dr. Dallas here to talk with patient & spouse Back to room via cart, moved to bed via MAT system, R groin safeguard intact, R PPP, no signs of distress, VS stable, call light within reach documented in this encounter Patient Care team informatio n (unrecognized section and content) Care Team Personnel Name: VINOD ACUÑA DEPORTATION EXAMINER Member Role: Primary Care Physician Address: Address: [address] [place] [id number] Care Team Related Persons Name: ELYSSA BURNHAM FOR RECORDS PERTAINING TO PATIENTS WHO ARE OR HAVE BEEN ENROLLED IN A CHEMICAL DEPENDENCY/SUBSTANCEABUSE PROGRAM, SOME INFORMATION MAY BE OMITTED. This clinical summary was aggregated from multiple sources. Caution should be exercised in using it in the provision of clinical care. This summary normalizes information from multiple sources, and as a consequence, information in this document may materially change the coding, format and clinical context of patient data. In addition, data may be omitted in some cases. CLINICAL DECISIONS SHOULD BE BASED ON THE PRIMARY CLINICAL RECORDS. [employer] [facility]. provides no warranty or guarantee of the accuracy or completeness of information in this document.
--- NOTE | 2023-03-16 17:24 | RAD_ITS ---
STUDY: X-RAY CHEST REASON FOR EXAM: Male, 57 years old. chest pain TECHNIQUE: AP portable COMPARISON: January 10, 2023. FINDINGS: The lungs are clear and expanded. There is no demonstrated pleural abnormality. Normal size heart. Normal mediastinum and nandini. Normal visualized pulmonary arteries. Normal visualized aortic arch and descending thoracic aorta. Normal visualized thoracic spine. Normal visualized ribs, clavicles, and shoulders. There is no demonstrated abnormality of the visualized soft tissue structures of the upper abdomen. No significant change since prior study RAD/Chest 1 View (Portable) IMPRESSION: Normal x-ray examination of the chest. Electronically Signed: Marlon Alex MD at 17:47 EST ,
--- NOTE | 2023-03-16 17:26 | ED.VIS.CHEST ---
HPI History of Present Illness Chief Complaint: Chest Pain Narrative Narrative: 57-year-old male with history of diabetes, hypertension, hyperlipidemia, stroke presenting with chest pain. Patient states it started about 4 days ago. It was retrosternal chest pressure initially and some lightheadedness. This is progressed and he is having increasing chest pressure. Patient states that now radiates up into his neck into his left arm. It is worse with exertion. He denies any trauma. He still feeling lightheaded and dizzy when he gets up and ambulates. Patient states that he has a history of cardiac cath 15 years ago which showed some mild blockages. Patient states at that time he was put on diltiazem which is for his chest pain. He had stress test since then which were negative. Patient states that he has not had a repeat catheterization. Patient states that initially when his symptoms started 4 days ago he thought he was coming down with a chest cold but now he still feels like he is getting weaker and he does not have a cough or shortness of breath or fevers or chills. Patient has not DVT/PE risk factors. Patient notably had a TIA recently and is on Plavix. No black or bloody stools. Patient does have history of GERD and is on Carafate, Protonix 80 mg twice daily, Pepcid. [facility] Medical History (Updated 03/16/23 @ 19:[address] Jake Franklin, ) Abdominal pain Acute cerebrovascular accident (CVA) due to ischemia Acute stroke due to ischemia Borderline type 2 diabetes mellitus Chest pain Constipation COVID-19 vaccine series completed CPAP (continuous positive airway pressure) dependence Depression with anxiety Diabetes Diverticulitis Former smoker GERD (gastroesophageal reflux disease) History of hiatal hernia HLD (hyperlipidemia) HTN (hypertension) Hyperlipidemia Hypertension Lupus Parkinsons disease Sleep apnea Type 2 diabetes mellitus Wears glasses Home Medications melatonin 3 mg tablet 9 mg PO QHS SLEEP 05/12/19 [History Last Taken 03/15/23] trazodone 100 mg tablet 200 mg PO QHS SLEEP 05/12/19 [History Last Taken 03/16/23] famotidine 20 mg tablet 20 mg PO BID GERD 02/17/20 [History Last Taken 03/16/23] clonazepam 0.5 mg tablet 0.5 mg PO QHS SLEEP 02/16/21 [History Last Taken 03/15/23] levodopa 42 mg capsule with inhalation device (Inbrija) 84 mg inhalation 0700,1100,1500 PARKINSONS 02/16/21 [History Last Taken 03/16/23] propranolol 10 mg tablet 10 mg PO TID HYPERTENSION 02/16/21 [History Last Taken 03/16/23] carbidopa ER 36.25 mg-levodopa 145 mg capsule,extended release (Rytary) 4 cap PO 4X/DAY Parkinsons 11/30/21 [History Last Taken 03/16/23] cholecalciferol (vitamin D3) 50 mcg (2,000 unit) tablet 50 mcg PO DAILY SUPPLEMENT 11/30/21 [History Last Taken 03/16/23] diltiazem HCl 60 mg tablet 60 mg PO BID HYPERTENSION/AGINA 11/30/21 [History Last Taken 03/16/23] empagliflozin 25 mg tablet (Jardiance) 12.5 mg PO DAILY DIABETES 11/30/21 [History Last Taken 03/16/23] omega-3 fatty acids 1,000 mg PO DAILY SUPPLEMENT 11/30/21 [History Last Taken 03/16/23] pantoprazole 40 mg tablet,delayed release (Protonix) 80 mg PO BID GERD 11/30/21 [History Last Taken 03/16/23] polyethylene glycol 3350 17 gram oral powder packet 17 g PO QHS PRN CONSTIPATION 11/30/21 [History Last Taken 03/15/23] prazosin 5 mg capsule 10 mg PO QHS HYPERTENSION 11/30/21 [History Last Taken 03/15/23] rosuvastatin 20 mg tablet 20 mg PO QHS HIGH CHOLESTEROL 11/30/21 [History Last Taken 03/16/23] sucralfate 1 gram tablet (Carafate) 1 g PO Q6H STOMACH ULCERS #28 tabs 03/24/22 [Rx Last Taken 01/10/23] duloxetine 60 mg capsule,delayed release 120 mg PO DAILY DEPRESSION 03/29/22 [History Last Taken 03/16/23] aspirin 81 mg tablet,delayed release 81 mg PO DAILY HEART HEALTH #30 tabs 01/12/23 [Rx Last Taken Unknown] clopidogrel 75 mg tablet 75 mg PO DAILY BLOOD THINNER #21 tabs 01/12/23 [Rx Last Taken 03/16/23] clonazepam 0.5 mg tablet 0.5 mg PO DAILY PRN PANIC ATTACKS 03/16/23 [History Last Taken 03/14/23] diclofenac sodium 1 % topical gel 4 g topical BID PRN OSTEOARTHRITIS 03/16/23 [History Last Taken Unknown] gabapentin 300 mg capsule 300 mg PO QHS RESTLESS LEG SYNDROME 03/16/23 [History Last Taken 03/15/23] hydrochlorothiazide 12.5 mg tablet 12.5 mg PO QAM BLOOD PRESSURE 03/16/23 [History Last Taken 03/16/23] lidocaine 5 % topical patch 1 patch topical DAILY PRN SEVERE PAIN 03/16/23 [History Last Taken Unknown] sildenafil 100 mg tablet 100 mg PO DAILY PRN sexual activity 03/16/23 [History Last Taken Unknown] sodium chloride-aloe vera nasal gel ([place] Saline nasal gel) 1 applic intranasal DAILY NASAL DRYNESS 03/16/23 [History Last Taken 03/16/23] sucralfate 100 mg/mL oral suspension (Carafate) 1 g PO 4X/DAY ULCERS 03/16/23 [History Last Taken 03/16/23] Allergy/AdvReac Type Severity Reaction Status Date / Time No Known Allergies Allergy Verified 03/16/23 16:42 Family History Mother Heart disease Hypertension High cholesterol Cancer skin cancer Father Heart disease High cholesterol Hypertension CVA (cerebral vascular accident) Surgical History History of appendectomy History of colectomy (~02/2020) History of laparoscopic cholecystectomy S/P arthroscopic surgery of left knee Social History household members: spouse number of children: 5 current occupational status: unemployed Smoking Status: Former smoker how long ago did patient quit smoking: Quit ~ 15 years prior, smoked socially only. alcohol intake: never substance use type: does not use ROS ROS ED Constitutional Constitutional ED: Denies chills, fever(s) or sweats Eyes Eyes: Denies blurry vision or change in vision ENT ENT ED: Denies ear pain or sore throat Cardiovascular Cardiovascular: Reports as per HPI and chest pain; Denies racing heartbeat Respiratory/Chest Respiratory/Chest: Reports dyspnea; Denies cough or sputum Gastrointestinal Gastrointestinal: Reports nausea; Denies abdominal pain, constipation, diarrhea or vomiting Genitourinary Genitourinary ED: Denies dysuria, hematuria or urinary frequency Musculoskeletal Musculoskeletal: Denies arthralgias, myalgias or neck pain Integumentary Denies abscess, Abrasions or rash Neurologic Neurologic: Denies headache(s), paresthesias or weakness Psychiatric Psychiatric: Denies anxiety, depression, suicidal ideation or suicidal thoughts Endocrine Endocrinology: Denies polydipsia or polyuria EXAM Physical Exam Const Vital Signs: 03/16/23 16:42 03/16/23 17:09 03/16/23 17:09 Temperature 96.4 F L Temperature Source Temporal Pulse Rate 93 Respiratory Rate 18 Respiratory Effort Normal Non-Labored Blood Pressure 142/75 H Blood Pressure Mean 97 Pulse Ox 98 99 Oxygen Delivery Method Room Air Room Air 03/16/23 17:35 03/16/23 18:00 03/16/23 19:16 Temperature Temperature Source Pulse Rate 75 73 73 Respiratory Rate 16 15 Respiratory Effort Blood Pressure 131/80 H 113/76 120/74 Blood Pressure Mean 88 89 Pulse Ox 97 Oxygen Delivery Method Room Air 03/16/23 19:40 03/16/23 20:18 Temperature Temperature Source Pulse Rate 66 63 Respiratory Rate 16 16 Respiratory Effort Blood Pressure 138/71 H 131/82 H Blood Pressure Mean 93 98 Pulse Ox 97 98 Oxygen Delivery Method Room Air Positive well nourished General Appearance ED: NAD; Negative for pallor HEENT Reports moist mucous membranes normocephalic and atraumatic Eyes PERRL and EOMs intact bilaterally Neck no lymphadenopathy Chest Wall inspection of chest normal Resp normal respiratory effort and clear to auscultation bilaterally Auscultation: Negative for rales, rhonchi or wheezes Cardio regular rate and regular rhythm GI normal to inspection, nondistended, normoactive bowel sounds Neuro oriented x3 and CN's II-XII intact bilaterally Sensorium / Orientation: awake and alert Psych mental status grossly normal Skin no rashes or lesions noted General Skin Exam: Negative for jaundice or pallor Heart Score History: Slightly/Non-Suspicious ECG: Nonspecific Repolarization Age: >45 - <65 years Risk Factors: >/= 3 Risk Factors or History of CAD Score: 4 MDM MDM MDM Narrative Medical decision making narrative: Patient presented with chest pain for 4 days. He states been constant but waxes and wanes in severity. It is currently been radiated up his neck into his left shoulder. HEART score 4. Differential includes ACS, CHF, pneumonia, GERD, gastritis, dehydration, uremia, electrolyte normalities. Considered pneumothorax, the patient has equal bilateral breath sounds and chest wall rise. Also considered PE but the patient does PERC negative. CBC will be obtained to assess white blood cell count, hemoglobin, platelets. BMP to assess renal function, electrolytes, glucose. High-sensitivity troponin to assess for ischemia. Chest x-ray rule out pneumonia or CHF. BNP to assess for CHF. Patient will be given nitroglycerin to see if this helps with his chest pain. CBC, BMP, high-sensitivity troponin all within normal limits. BMP 5.2. Delta troponin is 10 and initial troponin 8. There is no significant change. At this point patient wishes to be admitted out of concern for cardiac etiology. Discussed with hospitalist. Impression: 1. Chest pain Lab Data Labs: Laboratory Results - last 24 hr 03/16/23 03/16/23 03/16/23 17:10 17:28 19:35 WBC 6.5 RBC 5.12 Hgb 15.2 Hct 44.0 MCV 85.9 MCH 29.7 MCHC 34.5 RDW Std Deviation 38.6 RDW Coeff of Gail 12.4 Plt Count 147 L MPV 10.1 Immature Gran % (Auto) 0.300 Neut % (Auto) 63.8 Lymph % (Auto) 23.2 [place] % (Auto) 9.7 Eos % (Auto) 2.5 Baso % (Auto) 0.5 Absolute Neuts (auto) 4.2 Absolute Lymphs (auto) 1.51 Nucleated RBC % 0 Sodium 138 Potassium 3.5 Chloride 106 Carbon Dioxide 28.0 Anion Gap 4 L BUN 23 H Creatinine 1.25 Estim Creat Clear Calc 81.49 Est GFR (MDRD) Af Amer 76 Est GFR (MDRD) Non-Af 63 BUN/Creatinine Ratio 18.4 Glucose 173 H Calcium 9.3 Troponin I High Sens 8 10 B-Natriuretic Peptide 5.2 Radiography Diagnostic Testing: Clinical Impression(s) from Imaging Studies Chest X-Ray 03/16/23 17:24 IMPRESSION: Normal x-ray examination of the chest. Electronically Signed: Marlon Alex MD at 17:47 EST , Discharge Plan Triage Chief Complaint: Chest Pain ED Provider: Xavi Orlando Dx/Rx/DC Orders Prescriptions: No Action Inbrija 42 mg capsule, w/inhalation device 84 mg inhalation 0700,1100,1500 clonazepam 0.5 mg tablet 0.5 mg PO QHS propranolol 10 mg tablet 10 mg PO TID duloxetine 60 mg capsule,delayed release(DR/EC) 120 mg PO DAILY melatonin 3 MG tablet 9 mg PO QHS trazodone 100 MG tablet 200 mg PO QHS famotidine 20 MG tablet 20 mg PO BID polyethylene glycol 3350 17 gram Powder In Packet 17 g PO QHS PRN (Reason: CONSTIPATION) prazosin 5 mg Capsule 10 mg PO QHS diltiazem HCl 60 mg Tablet 60 mg PO BID omega-3 fatty acids Capsule 1,000 mg PO DAILY rosuvastatin 20 mg Tablet 20 mg PO QHS cholecalciferol (vitamin D3) 50 mcg (2,000 unit) Tablet 50 mcg PO DAILY Jardiance 25 mg Tablet 12.5 mg PO DAILY Rytary 36.25-145 mg Capsule, Extended Release 4 cap PO 4X/DAY Rx Instructions: divide evenly over waking hours pantoprazole [Protonix] 40 mg tablet,delayed release (DR/EC) 80 mg PO BID sucralfate [Carafate] 1 gram tablet 1 g PO Q6H Qty: 28 0RF aspirin 81 mg tablet,delayed release (DR/EC) 81 mg PO DAILY Qty: 30 0RF clopidogrel 75 mg Tablet 75 mg PO DAILY Qty: 21 0RF clonazepam 0.5 mg tablet 0.5 mg PO DAILY PRN (Reason: PANIC ATTACKS) diclofenac sodium 1 % gel 4 g topical BID PRN (Reason: OSTEOARTHRITIS) gabapentin 300 mg capsule 300 mg PO QHS sildenafil 100 mg tablet 100 mg PO DAILY PRN (Reason: sexual activity) lidocaine 5 % Adhesive Patch,Medicated 1 patch topical DAILY PRN (Reason: SEVERE PAIN) Protocol: *Topical Application Instructions APPLICATION INSTRUCTIONS: right forearm. Rx Instructions: PATCH SHOULDNT BE LEFT ON SKIN FOR MORE THAN 12 HOURS hydrochlorothiazide 12.5 mg tablet 12.5 mg PO QAM Rx Instructions: take with food sucralfate [Carafate] 100 mg/mL suspension 1 g PO 4X/DAY [place] Saline Gel 1 applic intranasal DAILY Primary Care Provider: Hospital,[facility] Referrals: Hospital,[facility] [Primary Care Provider] - Capacity Legal [employer]rication Department Supervisor Reflex Medical hold order details:: IF a medical hold is selected below, a suggested order for a MEDICAL HOLD will reflex upon signing the document. Next of kin: [place] law dictates a PRIORITY LIST for identifying legal decision-maker/legal next of kin in the following order (LNOK): 1st: The patient?s legal guardian, if any 2nd: The patient's spouse (if status is questionable, consult Risk Management) 3rd: The patient?s adult child(marco antonio) (majority, if multiple children) 4th: The patient?s parents 5th: The patient?s adult siblings (majority, if multiple children siblings)
[2023-03-16 17:28] LABS: Absolute Lymphocyte Count 1.51 X10^3/uL (0.83-4.51); Absolute Neutrophil Count 4.2 X10^3/uL (2.0-7.7); Basophil# 0.03 X10^3/uL; Basophil% 0.5 % (0-1); Eosinophil# 0.16 X10^3/uL; Eosinophils% 2.5 % (0-5); Hemoglobin 15.2 g/dL (13.0-16.5); Lymphocyte # 1.51 X10^3/ul (0.83-4.51); Lymphocyte % 23.2 % (19-41); Mean Corp Hgb Conc 34.5 g/dL (32-36); Mean Corpuscular Hgb 29.7 pg (27.0-32.0); Mean Corpuscular Volume 85.9 fL (80-94); Mean Platelet Vol. 10.1 fl (6.2-12.0); Monocyte# 0.63 X10^3/uL; Monocyte% 9.7 % (0-10); NRBC Flagged by Analyzer 0 % (0-5); Neutrophil # 4.15 X10^3/uL (2.7-7.7); Neutrophil % 63.8 % (47-70); Platelet Count 147 K/mm3 (150-450); RBC Distribution Width CV 12.4 % (11.6-14.6); RBC Distribution Width SD 38.6 fl (35.1-43.9); Red Blood Count 5.12 M/mm3 (4.6-6.2); White Blood Count 6.5 K/mm3 (4.4-11.0)
[2023-03-16] MEDS: Nitroglycerin SL (ED/IMG/CATH) 0.4 MG TABLET 0.400000000000000022 MG SL (17:35)
--- NOTE | 2023-03-16 17:40 | ED.RN ---
PT RATES CP AT A 3/10 ON PAIN SCALE AFTER 1 SL NITRO- PATIENT DECLINES ANY FURTHER DOSES.
[2023-03-16 17:44] LABS: Anion Gap 4 (5-15); BUN 23 mg/dL (7-18); BUN/Creat Ratio 18.4 RATIO (10-20); Calcium,Total 9.3 mg/dL (8.5-10.1); Chloride 106 mmol/L (98-107); Creatinine, Serum 1.25 mg/dL (0.70-1.30); EST Glomerular Filtration Rate 63 mL/min (>60); Est Glom Filt Rate - Afr Amer 76 mL/min (>60); Estimated Creatinine Clearance 81.49 ml/min; Glucose 173 mg/dL (74-106); Potassium 3.5 mmol/L (3.5-5.1); Sodium Level 138 mmol/L (136-145); Troponin-I HS (w/2H Reflex) 8 pg/mL (3.0-78.0)
[2023-03-16 17:55] LABS: BNP,B-Type NATRIURETIC PEPTIDE 5.2 pg/mL (0-100)
--- NOTE | 2023-03-16 19:13 | PCM.HP.STD ---
HPI - General General Date of Admission: 03/16/23 Date of Service: 03/16/23 Chief Complaint: Chest Pain HPI Narrative KRISHAN HERNÁNDEZ, is a 57 M with a past medical history of essential hypertension, hyperlipidemia, obesity; with BMI of 33.2 this admission, obstructive sleep apnea; on CPAP, diabetes mellitus type 2; of unknown control, history of TIA/CVA; on Plavix, Parkinson's disease (since 2010), systemic lupus erythematosus, history of colonic diverticulitis; s/p colectomy, BPH, history of de Quervain's tenosynovitis (right), GERD; with history of hiatal hernia on Protonix twice daily, Pepcid and Carafate, depression with anxiety, osteoarthritis and history of chest pain; with left heart catheterization ~15 years ago which showed mild blockages but no flow-limiting ischemia treated with Cardizem who presents to [facility] [place] [facility] complaining of chest pain. Mr. Hernández reports his symptoms began approximately 4 days prior to admission with chest pain that began at rest and was substernal, pressure-like, ~6-7/10, radiating up into his neck and left arm and was made worse with exertion and better after SL NTG. He also admits to feeling lightheaded and dizzy when he gets up and attempts to ambulate. He initially thought he was coming down with a chest cold but now he feels like he is generally getting weaker and does not have cough, shortness of breath, fever or chills so he is becoming more concerned about a potential cardiac origin. He denies recent trauma, overexertion or recent medication changes. In the ER he was noted to have an unremarkable EKG and an normal troponin and he was then admitted to the CDU under observation status for ongoing care for a stay that is expected to be less than 48 hours. [facility] Medical History Abdominal pain Acute cerebrovascular accident (CVA) due to ischemia Acute stroke due to ischemia Borderline type 2 diabetes mellitus Chest pain Constipation COVID-19 vaccine series completed CPAP (continuous positive airway pressure) dependence Depression with anxiety Diabetes Diverticulitis Former smoker GERD (gastroesophageal reflux disease) History of hiatal hernia HLD (hyperlipidemia) HTN (hypertension) Hyperlipidemia Hypertension Lupus Parkinsons disease Sleep apnea Type 2 diabetes mellitus Wears glasses Home Medications melatonin 3 mg tablet 9 mg PO QHS SLEEP 05/12/19 [History Last Taken 03/15/23] trazodone 100 mg tablet 200 mg PO QHS SLEEP 05/12/19 [History Last Taken 03/16/23] famotidine 20 mg tablet 20 mg PO BID GERD 02/17/20 [History Last Taken 03/16/23] clonazepam 0.5 mg tablet 0.5 mg PO QHS SLEEP 02/16/21 [History Last Taken 03/15/23] levodopa 42 mg capsule with inhalation device (Inbrija) 84 mg inhalation 0700,1100,1500 PARKINSONS 02/16/21 [History Last Taken 03/16/23] propranolol 10 mg tablet 10 mg PO TID HYPERTENSION 02/16/21 [History Last Taken 03/16/23] carbidopa ER 36.25 mg-levodopa 145 mg capsule,extended release (Rytary) 4 cap PO 4X/DAY Parkinsons 11/30/21 [History Last Taken 03/16/23] cholecalciferol (vitamin D3) 50 mcg (2,000 unit) tablet 50 mcg PO DAILY SUPPLEMENT 11/30/21 [History Last Taken 03/16/23] diltiazem HCl 60 mg tablet 60 mg PO BID HYPERTENSION/AGINA 11/30/21 [History Last Taken 03/16/23] empagliflozin 25 mg tablet (Jardiance) 12.5 mg PO DAILY DIABETES 11/30/21 [History Last Taken 03/16/23] omega-3 fatty acids 1,000 mg PO DAILY SUPPLEMENT 11/30/21 [History Last Taken 03/16/23] pantoprazole 40 mg tablet,delayed release (Protonix) 80 mg PO BID GERD 11/30/21 [History Last Taken 03/16/23] polyethylene glycol 3350 17 gram oral powder packet 17 g PO QHS PRN CONSTIPATION 11/30/21 [History Last Taken 03/15/23] prazosin 5 mg capsule 10 mg PO QHS HYPERTENSION 11/30/21 [History Last Taken 03/15/23] rosuvastatin 20 mg tablet 20 mg PO QHS HIGH CHOLESTEROL 11/30/21 [History Last Taken 03/16/23] sucralfate 1 gram tablet (Carafate) 1 g PO Q6H STOMACH ULCERS #28 tabs 03/24/22 [Rx Last Taken 01/10/23] duloxetine 60 mg capsule,delayed release 120 mg PO DAILY DEPRESSION 03/29/22 [History Last Taken 03/16/23] aspirin 81 mg tablet,delayed release 81 mg PO DAILY HEART HEALTH #30 tabs 01/12/23 [Rx Last Taken 03/16/23] clopidogrel 75 mg tablet 75 mg PO DAILY BLOOD THINNER #21 tabs 01/12/23 [Rx Last Taken 03/16/23] clonazepam 0.5 mg tablet 0.5 mg PO DAILY PRN PANIC ATTACKS 03/16/23 [History Last Taken 03/14/23] diclofenac sodium 1 % topical gel 4 g topical BID PRN OSTEOARTHRITIS 03/16/23 [History Last Taken Unknown] gabapentin 300 mg capsule 300 mg PO QHS RESTLESS LEG SYNDROME 03/16/23 [History Last Taken 03/15/23] hydrochlorothiazide 12.5 mg tablet 12.5 mg PO QAM BLOOD PRESSURE 03/16/23 [History Last Taken 03/16/23] lidocaine 5 % topical patch 1 patch topical DAILY PRN SEVERE PAIN 03/16/23 [History Last Taken Unknown] sildenafil 100 mg tablet 100 mg PO DAILY PRN sexual activity 03/16/23 [History Last Taken Unknown] sodium chloride-aloe vera nasal gel ([place] Saline nasal gel) 1 applic intranasal DAILY NASAL DRYNESS 03/16/23 [History Last Taken 03/16/23] sucralfate 100 mg/mL oral suspension (Carafate) 1 g PO 4X/DAY ULCERS 03/16/23 [History Last Taken 03/16/23] Allergy/AdvReac Type Severity Reaction Status Date / Time No Known Allergies Allergy Verified 03/16/23 16:42 Family History Mother Heart disease Hypertension High cholesterol Cancer skin cancer Father Heart disease High cholesterol Hypertension CVA (cerebral vascular accident) Surgical History History of appendectomy History of colectomy (~02/2020) History of laparoscopic cholecystectomy S/P arthroscopic surgery of left knee Social History household members: spouse number of children: 5 current occupational status: unemployed Smoking Status: Former smoker how long ago did patient quit smoking: Quit ~ 15 years prior, smoked socially only. alcohol intake: never substance use type: does not use ROS ROS Narrative Review of systems: General: Patient denies fevers or chills. HENT: Denies headache, denies stuffy nose, denies sore throat EYES: Denies changes in vision Resp: Patient admits to shortness of breath but denies cough or sputum. Cardiac: Patient admits to chest pain and sensation his heart is racing. GI: Denies abdominal pain, denies changes in bowel, had some nausea : Denies changes in urination Extremity: Denies swelling Musculoskeletal: Patient denies arthralgias or myalgias. Neuro: Denies any numbness/tingling Heme: Denies any bleeding or bruising Skin: Denies rashes Psychiatric: No complaints voiced related to uncontrolled depression or anxiety. Endocrine: No polyuria, polydipsia or polyphagia. The rest of the 14 point ROS was negative except for positives in HPI. Vital Signs Vital Signs Vital Signs: 03/16/23 16:42 03/16/23 17:09 03/16/23 17:09 Temperature 96.4 F L Temperature Source Temporal Pulse Rate 93 Respiratory Rate 18 Respiratory Effort Normal Non-Labored Blood Pressure 142/75 H Blood Pressure Mean 97 Pulse Ox 98 99 Oxygen Delivery Method Room Air Room Air 03/16/23 17:35 03/16/23 18:00 Temperature Temperature Source Pulse Rate 75 73 Respiratory Rate 16 Respiratory Effort Blood Pressure 131/80 H 113/76 Blood Pressure Mean 88 Pulse Ox Oxygen Delivery Method Weight Weight: 238 lb Body Mass Index (BMI) 33.2 Physical Exam Const alert, oriented x3, no apparent distress, average body habitus and healthy appearing General Appearance: cooperative HEENT normocephalic, head/scalp atraumatic, hearing grossly normal bilaterally and moist oral mucous membranes Eyes PERRL and EOMs intact bilaterally Neck no lymphadenopathy and supple Resp normal respiratory effort, no retractions, no use of accessory muscles and clear to auscultation bilaterally Cardio regular rate and regular rhythm GI normal to inspection, nondistended, normoactive bowel sounds, soft to palpation, non-tender and non-distended Extremity normal to inspection and full ROM Skin Skin Narrative: Patient has no evidence of rash or abscess at this time. Neuro oriented x3, CN's II-XII intact bilaterally, moves all extremities and no focal motor deficits Sensorium / Orientation: awake, alert, oriented to person, oriented to place and oriented to time Speech: speech normal Motor Exam: strength 5/5 throughout Psych affect normal Results Medical Records Data Attestation: I reviewed the patient's medical records Lab / Micro Data Attestation: I reviewed the patient's lab results. 03/16/23 17:10 03/16/23 17:10 Labs: Laboratory Results - last 24 hr 03/16/23 17:10: WBC 6.5, RBC 5.12, Hgb 15.2, Hct 44.0, MCV 85.9, MCH 29.7, MCHC 34.5, RDW Std Deviation 38.6, RDW Coeff of Gail 12.4, Plt Count 147 L, MPV 10.1, Immature Gran % (Auto) 0.300, Neut % (Auto) 63.8, Lymph % (Auto) 23.2, Pratt % (Auto) 9.7, Eos % (Auto) 2.5, Baso % (Auto) 0.5, Absolute Neuts (auto) 4.2, Absolute Lymphs (auto) 1.51, Nucleated RBC % 0, Sodium 138, Potassium 3.5, Chloride 106, Carbon Dioxide 28.0, Anion Gap 4 L, BUN 23 H, Creatinine 1.25, Estim Creat Clear Calc 81.49, Est GFR (MDRD) Af Amer 76, Est GFR (MDRD) Non-Af 63, BUN/Creatinine Ratio 18.4, Glucose 173 H, Calcium 9.3, Troponin I High Sens 8 03/16/23 17:28: B-Natriuretic Peptide 5.2 Imagaing Radiology Impression Chest X-Ray 03/16/23 17:24 IMPRESSION: Normal x-ray examination of the chest. Electronically Signed: Marlon Alex MD at 17:47 EST Reading Location ID and State: [facility] Tel , Service support , Assessment & Plan Assessment/Plan (1) Chest pain: QUALIFIERS: Chest pain type: unspecified Qualified Code(s): R07.9 - Chest pain, unspecified PLAN: Plan 1. Chest pain - Admit to CDU under observation status. Serialize troponin. Check d-dimer. Continue ECASA plus prn SL NTG. Check echocardiogram to evaluate LVEF. Check Lexiscan NST in the AM to evaluate for ischemia. 2. Severe GERD; with history of hiatal hernia on Protonix twice daily, Pepcid and Carafate complicating #1 likely due to at least in part to Pill Esophagitis with Polypharmacy as he is on 27 different routine medications chronically - Continue aggressive GERD regimen. Consider GI consultation as outpatient if cardiac workup is negative and chest pain persists. 3. History of chest pain; with left heart catheterization ~15 years ago which showed mild blockages but no flow-limiting ischemia treated with Cardizem - Noted. Continue Cardizem as previous. 4. Essential hypertension - Continue home regimen plus give prn IV Hydralazine for systolic blood pressure > 160 mm Hg. 5. Hyperlipidemia - Resume statin and check lipid profile in light of #1. 6. Obesity; with BMI of 33.2 this admission plus obstructive sleep apnea; on CPAP - Weight loss will be recommended. Continue nocturnal CPAP. 7. Diabetes mellitus type 2; of unknown control - ADA diet. FSBS q. AC/HS plus SSI. Check HgbA1c to objectively assess quality of diabetic control. 8. History of TIA/CVA; on Plavix - Continue Plavix. 9. Parkinson's disease - Resume carbidopa and levodopa as previous. 10. Systemic lupus erythematosus - Stable. Moderate thrombocytopenia of 147 present on admission. 11. History of colonic diverticulitis; s/p colectomy - Noted. 12. BPH - Continue Prazosin. 13. History of de Quervain's tenosynovitis (right) - Noted. 14. Depression with anxiety - Resume home medications as previous plus give prn Xanax for breakthrough symptoms. 15. Osteoarthritis - Give Tylenol prn. 16. DVT prophylaxis - Lovenox 40 mg sq daily. Total time: Approximately 45 minutes. Charges/Coding Visit Charges OBSV E&M: 39532 Observ/hosp same date L1
[2023-03-16 19:20] LABS: Reflex Troponin-HS? (from REC) Y
--- NOTE | 2023-03-16 19:50 | ECHOD_ITS ---
Reason For Study: Chest Pain Procedure This was a 2D Doppler, Color Flow transthoracic echocardiogram. Exam performed in department. Left Ventricle Normal LV size. Mild concentric left ventricular hypertrophy. Left ventricular systolic function is normal. The estimated ejection fraction is 65 %. No regional wall motion abnormalities noted. Right Ventricle Normal RV size. Normal systolic function. Atria Normal left atrium. Normal right atrium. Mitral Valve The mitral valve is structurally normal. No prolapse or stenosis seen. Trivial mitral valve insufficiency. Tricuspid Valve Normal tricuspid valve. Trivial tricuspid valve insufficiency. Right ventricular systolic pressure estimated to be 32 mmHg. Aortic Valve Trisinus/trileaflet aortic valve. Trivial aortic valve insufficiency. Pulmonic Valve Normal pulmonic valve. Trivial pulmonic valve insufficiency. Great Vessels Normal aortic root. Pericardium/Pleural No pericardial effusion. MMode/2D Measurements & Calculations LVIDd: 4.9 cm IVSd: 1.2 cm Ao root diam: 3.3 cm LVIDs: 3.0 cm LVPWd: 1.2 cm RVDd: 3.9 cm FS: 37.7 % LAV(MOD-bp): 46.0 ml LVAd ap4: 31.9 cm2 SV(MOD-sp4): 63.8 ml LAV(MOD-bp) Indexed: 20.4 ml/m2 LVLd ap4: 8.7 cm LAV(MOD-sp2): 37.4 ml EDV(MOD-sp4): 95.6 ml LAV(MOD-sp4): 47.8 ml EDV(sp4-el): 98.9 ml LVAs ap4: 16.3 cm2 LVLs ap4: 7.2 cm ESV(MOD-sp4): 31.9 ml ESV(sp4-el): 31.4 ml EF(MOD-sp4): 66.7 % EF(sp4-el): 68.3 % SV(sp4-el): 67.5 ml LA A4 area: 18.7 cm2 LA dimension(2D): 3.9 cm RA A4 area: 9.0 cm2 TAPSE: 2.7 cm Time Measurements MV dec time: 0.29 sec Doppler Measurements & Calculations MV E max david: 72.4 cm/sec Lat Peak E' David: 8.4 cm/sec Med Peak E' David: 7.7 cm/sec MV A max david: 59.8 cm/sec E/E' lat: 8.6 E/E' med: 9.4 MV E/A: 1.2 Ao V2 max: 143.5 cm/sec LV V1 max: 120.3 cm/sec MV dec slope: 246.0 cm/sec2 Ao max P.2 mmHg LV V1 max P.8 mmHg Ao V2 mean: 97.5 cm/sec LV V1 mean P.9 mmHg Ao mean P.4 mmHg LV V1 mean: 77.8 cm/sec Ao V2 VTI: 31.4 cm LV V1 VTI: 25.1 cm AV (velocity ratio): 0.80 PA V2 max: 139.5 cm/sec PI end-d david: 93.3 cm/sec TR max david: 268.7 cm/sec PA V2 mean: 107.7 cm/sec TR max P.9 mmHg ECHO/Echo Complete Interpretation Summary The estimated ejection fraction is 65 %. Mild concentric left ventricular hypertrophy. Structually normal valves. Compared to prior study, there is no significant change. Ordering Physician: Jake Franklin Referring Physician: [facility] Performed By: Liat Arrington, AYANA, RVT
[2023-03-16 20:01] LABS: Troponin-I HS 10 pg/mL (3.0-78.0)
[2023-03-16] MEDS: Ondansetron 4 MG/2 ML Vial IV (20:17)
--- OUTSIDE RECORDS SUMMARY | 2023-03-16 21:30 | XMS RPT_ITS | CCD ---
Author Name Unknown Address [address] [place] [address] [facility] Care Team Providers Care Molding Line Operator Name Role Phone Maki, Sohail L Unavailable [...] Unavailable Unavailable ADRIAN, VENKATAKRISHNAN Unavailable Unavail able [place] Unavailable Unavailable MAHFOOZ, MARLYN Unavailable Unavailable DAVID, [...] Unavailable Unavailable Hannah, Thuy D Unavailable Unavailable Dayton, Mango B Unavailable Unavailable Unknown, Referring Provider Unavailable Unav ailable Hannah, Thuy D Unavailable Unavailable David Mango B Unavailable Unavailable Tavallaee, Panchito Unavailable Unavailable Sohail Gambino Primary Care Provider Niiva Cazares Unavailable Hannah, Thuy D Unavailable Unavailable Unavailable VINOD ACUÑA CNP Primary Care Physician Allergies Allergy Classification Reported Allergen(s) Allergy Type Date of Onset Reaction(s) Facility (2 sources) No Known Allergies; Translations: [No Known Allergies] Propensity to adverse reactions (disorder) 8 [facility] Medications Current Medications Medication Drug Class(es) Dates Sig (Normalized) Sig (Original) clonazePAM 0.5 mg oral tablet (3 sources) Benzodiazepine take 1 tablet by mouth three times daily as needed for anxiety clonazePAM (KLONOPIN) 0.5 MG tablet Take 0.5 mg by mouth 3 (three) times a day as needed for anxiety. 0 Active entacapone 200 mg oral tablet (3 sources) Jcmgicno-D-Jtjlkxgrpkj ferase Inhibitor take 1 tablet by mouth [...] [Coronary atherosclerosis of unspecified type of vessel, tulalip or graft] Chronic Diabetes mellitus without complication [...] (Body Mass Index) 32.65 kg/m2 Panchito Shannon WR-Sllokhj-Smbazsx Work Phone: 08-12-2019 16:44-0400 Body Temperature 97.9 [degF] Panchito Shannon MP-Urology-[place] Work Phone: 08-12-2019 16:44-0400 Body weight 106.17 kg Panchito Shannon MP-Urology[facility] [employer] ( [facility] ) Work Phone: 08-12-2019 16:44-0400 BP Diastolic 82 mm[Hg] Panchito Tavallaee XE-Xkgmwac-Bop land Work Phone: 08-12-2019 16:44-0400 BP Systolic 136 mm[Hg] Panchito Tavallaee QK-Umyofoh-Mgu land Work Phone: 08-12-2019 16:44-0400 BSA (Body Surface Area) 2.25 m2 Panchito Tavallaee RP-Ncjxjgm-Fdtetdc Work Phone: 08-12-2019 16:44-0400 Height 180.34 cm Panchito Tavallaee YZ-Gfzhyzy-Zpl land Work Phone: 08-12-2019 16:44-0400 Pulse (Heart Rate) 82 /min Panchito Tavallaee MP-Urology- [place] Work Phone: 08-12-2019 16:44-0400 Pulse Oximetry 96 % Panchito Iliaallaee ND-Uqopwlw-Ark land Work Phone: 08-12-2019 16:44-0400 Respiratory Rate 16 /min Panchito Tavallaee YD-Wlxdkvu-Xc hland Work Phone: 08-12-2019 11:26-0400 BMI (Body Mass Index) 33.05 kg/m2 Panchito Tavallaee OB-Hnewyel-Bgdfpcr Work Phone: 08-12-2019 11:26-0400 Body weight 107.5 kg Panchito Iliaallaee OK-Syyivdg-Ytd land Work Phone: 08-12-2019 11:26-0400 BP Diastolic 62 mm[Hg] Panchito Tavallaee JM-Auijcgk-Olf land Work Phone: 08-12-2019 11:26-0400 BP Systolic 154 mm[Hg] Panchito Tavallaee GC-Vhgdwmx-Wjg land Work Phone: 08-12-2019 11:26-0400 BSA (Body Surface Area) 2.27 m2 Panchito Tavallaee GJ-Ockvvqj-Yejgump Work Phone: 08-12-2019 11:26-0400 Height 180.34 cm Panchito Shannon BV-Ebwtbct-Dke land Work Phone: 08-12-2019 11:26-0400 Pulse (Heart Rate) 115 /min Panchito Shannon -[facility] [place] Work Phone: 04-26-2019 12:10-0500 BMI (Body Mass Index) 35.98 kg/m2 Thuy Hannah [facility] Internal Medicine Work Phone: 04-26-2019 12:10-0500 Body weight 117.03 kg Thuy Hannah [facility] Work Phone: 04-26-2019 12:10-0500 BP Diastolic 84 mm[Hg] Thuy Hannah [facility] Work Phone: 04-26-2019 12:10-0500 BP Systolic 136 mm[Hg] Thuy Hannah [facility] Work Phone: 04-26-2019 12:10-0500 BSA (Body Surface Area) 2.35 m2 Thuy Hannah [facility] Work Phone: 04-26-2019 12:10-0500 Height 180.34 cm Thuy Hannah [facility] Medicine Work Phone: 04-26-2019 12:10-0500 Pulse (Heart Rate) 76 /min Thuy Hannah [facility] Work Phone: 07-04-2018 11:50-0400 BP Diastolic 68 mm[Hg] Dallin Dallas [facility] 07-04-2018 11:50-0400 BP Systolic 102 mm[Hg] Dallin Dallas [facility] 07-04-2018 11:50-0400 Pulse (Heart Rate) 57 /[facility] 11:50-0400 Pulse Oximetry 95 % [facility]-04-[facility] 09:50-0400 Respiratory Rate 18 /min [facility]-2018 07:26-0400 BMI (Body Mass Index) 33.91 kg/m2 Dallin Dallas [facility] 07-04-2018 07:26-0400 Height 182.9 cm Dallin Dallas [facility] 07-04-2018 07:26-0400 Weight 113.4 kg Dallin Dallas [facility] 07-04-2018 07:20-0400 Body Temperature 97.9 [degF] Dallin Dallas [facility] 02-01-2017 15:11-0500 BP Diastolic 77 mm[Hg] Nivia Cazares [facility] Work Phone: 02-01-2017 15:11-0500 BP Systolic 133 mm[Hg] Nivia Cazares [facility] Work Phone: 02-01-2017 15:11-0500 Pulse (Heart Rate) 66 /min Nivia Cazares [facility] Work Phone: 02-01-2017 15:09-0500 BMI (Body Mass Index) 35.55 kg/m2 Nivia Cazares [facility] Work Phone: 02-01-2017 15:09-0500 Height 180.3 cm Nivia Cazares [facility] Work Phone: 02-01-2017 15:09-0500 Respiratory Rate 16 /min Nivia Cazares [facility] Work Phone: 02-01-2017 15:09-0500 Weight 115.62 kg Nivia Cazares [facility] Work Phone: Encounters Encounter Date Encounter Type Care Provider Facility Start: 08-11-2022 End: 11-25-2022 Physical therapy management JAKE MCMAHON MD [facility] Start: 09-25-2020 Chart Update Thuy Hannah Work Phone: [facility] Work Phone: Start: 09-23-2020 Phys/qhp telephone evaluation 11-20 min Thuy Hannah Work Phone: [facility] Work Phone: Start: 09-10-2020 Office outpatient visit 15 minutes Thuy Hannah Work Phone: [facility] Work Phone: Start: 05-13-2020 End: 05-13-2020 Orders Only Mehnaz Price Work Phone: [facility] Start: 08-12-2019 Patient encounter procedure Panchito Tavallaee DO-Xulxodd-Pyzllzb Work Phone: Start: 07-30-2019 Patient encounter procedure Panchito Tavallaee PQ-Yhpvxag-Dfjxwkl Work Phone: Start: 07-08-2019 Patient encounter procedure Panchito Tavallaee XC-Gbehpeb-Dkextup Work Phone: Start: 06-10-2019 Patient encounter procedure Panchito Tavallaee GK-Qrulcdh-Xhllana Work Phone: Start: 05-21-2019 Patient encounter procedure Thuy Hannah -[facility] Work Phone: Start: 04-26-2019 Patient encounter procedure hTuy Hannah [facility] Work Phone: Start: 08-14-2018 End: 08-17-2018 Patient encounter procedure [facility] Start: 07-04-2018 End: 07-04-2018 Patient encounter procedure DALLIN REYNOLDS [facility] Start: 07-04-2018 End: 07-04-2018 Patient encounter procedure Dallin Reynolds [facility] Work Phone: [facility] Start: 06-28-2018 End: 06-29-2018 Patient encounter procedure JASON Fanny [facility] Start: 02-10-2018 End: 02-10-2018 Emergency department patient visit Fernando Beaulieu Facility:[facility] Start: 12-29-2017 End: 01-01-2018 Patient encounter procedure [facility] Start: 12-09-2017 End: 12-09-2017 Emergency department patient visit [facility] Start: 09-21-2017 End: 09-21-2017 Patient encounter Gumaro Castillo Facility:[facility] yin miller Urology [facility] Start: 07-27-2017 End: 07-28-2017 Patient encounter Laci Higgins Bains Facility:[facility] Start: 06-05-2017 End: 06-06-2017 [facility] Start: 04-19-2017 End: 04-19-2017 Patient encounter MANGO ESPINAL Facility:[facility] Start: 04-17-2017 End: 04-18-2017 Evaluation and management of inpatient PROVIDER UNKNOWN Facility:[facility] Start: 04-13-2017 End: 04-13-2017 Patient encounter MANGO ESPINAL Facility:[facility] Start: 04-05-2017 Patient encounter eze Alejandra JaraXavi Sage Facility:[facility] Start: 03-17-2017 End: 03-18-2017 Patient encounter MANGO ESPINAL Facility:[facility] Start: 03-08-2017 End: 03-09-2017 Patient encounter MANGO ESPINAL Facility:[facility] Start: 02-01-2017 End: 02-01-2017 Ambulatory [facility] Start: 02-01-2017 Office outpatient ne w 30 minutes [facility] Work Phone: [facility] Start: 01-30-2017 Ambulatory [facility] Ambulatory Start: 12-19-2016 End: 12-20-2016 Ambulatory DEFAULT PHYSICIAN Facility:[facility] Patient encounter procedure Thuy Hannah Work Phone: -[facility] Work Phone: Procedures Date [...] Start: 08-14-2018 Dup-scan xtr veins unilateral/limited study [facility] Start: 07-04-2018 Cardiac catheterization Dallin Rodolfo [place] Work Phone: Start: 06-28-2018 25 hydroxy includes fractions if performed [facility] Start: 06-28-2018 Assay of thyroid sti mulating hormone tsh [facility] Start: 06-28-2018 Blood typing serologic abo [facility] Start: 06-28-2018 Comprehensive metabo lic panel [facility] Start: 06-28-2018 Lipid panel [facility] Start: 12-29-2017 Myocardial spect mul tiple studies [facility] Start: 12-29-2017 Cv strs tst xers&/or rx cont ecg w/o i&r [facility] Start: 12-29-2017 Echo tthrc r-t 2d w/ wom-mode compl spec&colr d [facility] Start: 12-09-2017 Radiologic exam ches t single view [facility] Start: 12-09-2017 Ct head/brain w/o co ntrast material [facility] Start: 12-09-2017 Assay of free thyroxine [facility] Start: 12-09-2017 Assay of thyroid sti mulating hormone tsh [facility] Start: 12-09-2017 Blood count complete auto&auto difrntl wbc [facility] Start: 12-09-2017 Comprehensive metabo lic panel [facility] Start: 12-09-2017 D-DIMER, QUANTITATIVE G [facility] Start: 12-09-2017 Prothrombin time [facility] Start: 12-09-2017 T3 free mass conc [facility] Start: 12-09-2017 Thromboplastin time partial plasma/whole blood [facility] Start: 12-09-2017 Troponin I.cardiac mass conc [facility] Start: 12-09-2017 EKG 12-LEAD [facility] Start: 04-18-2017 MEASUREMENT OF SURVEY RESEARCH TEACHER E LECTR ACTIVITY, 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 APPROACH MARLYN CARRILLO Start: 10-28-2016 Colonoscopy Thuy pennington Work Phone: Plan of Treatment Date Care Activity Detail Author Start: 11-20-2027 Tetanus vaccination [facility] Start: 06-08-2021 Patient encounter procedure MCRANNUAL, Provider: Thuy Hannah, Status: Pen, Time: 9:20 AM [facility] Work Phone: Start: 01-28-2020 Assay of prostate specific antigen total Prostate Specific Antigen [facility] Work Phone: Start: 01-28-2020 Assay of testosteron e total Testosterone, Level [facility] Work Phone: Start: 01-28-2020 Measurement of total hemoglobin concentration and hematocrit Hemoglobin + Hematocrit [facility] Work Phone: Start: 10-29-2019 Influenza vaccinatio n given Sequential Influenza Vaccine (#1) [facility] Start: 10-28-2018 Influenza vaccinatio n given SEQUENTIAL INFLUENZA VACCINE (Season Ended) [facility] Start: 04-05-2017 End: 04-05-2017 Ambulatory [facility] Start: 10-28-2016 Influenza vaccination SEQUENTI AL INFLUENZA VACCINE (#1) [facility] Work Phone: Start: 07-07-2015 Administration of he rpes zoster vaccine Zoster Vaccines (1 of 2) [facility] Start: 07-07-2015 Screening for malign ant neoplasm of colon [facility] Start: 07-07-1983 Hepatitis C antibody , confirmatory test Hepatitis C Screening [facility] Start: 1981 COVID-19 Vaccine (1 of 2) COVID-19 Vaccine (1 of 2) [facility] Start: 1980 HIV screening HIV Screening [facility] Start: 1977 Adolescent depressio n screening assessment Depression Screening (PHQ9) [facility] Start: 1968 History and physical examination, annual for health maintenance Wellness Visit [facility] Start: 1965 Prostate specific antigen measurement PSA Level [facility] Start: 1965 Screening colonoscopy COLONOSCOPY O [facility] Work Phone: Start: 1965 Screening for malign ant neoplasm of colon Colorectal Cancer Screening: Colonoscopy [facility] Start: 1965 Tetanus vaccination TETANUS EVERY 10 YR [facility] Work Phone: Cardiac catheterization Cardiac Catheterization Routine 07/04/2018 9:24 AM EDT [facility] End: 04-04-2018 Ultrasound venous insufficiency right leg Ultrasound venous insufficiency right leg Routine Varicose veins of leg with pain, right 1 Occurrences starting 02/01/2017 until 04/04/2018 [facility] Work Phone: NEGATED: Highlighted row has been ruled out! Planned Goals not documented YB-Yvgghja-Wtvqrpn Work Phone: Immunizations Immunization Date Immunization Notes Care Provider Fa bradley 05-16-2020 Pfizer-BioNTech COVI D-19 Vacc 30 MCG/0.3ML Intramuscular Suspension Thuy D Hannah Work Phone: [facility] Work Phone: 04-25-2020 Pfizer-BioNTech COVI D-19 Vacc 30 MCG/0.3ML Intramuscular Suspension Thuy D Hannah Work Phone: [facility] Work Phone: 12-10-2019 Influenza, injectabl e, Madin [place] Canine Kidney, preservative free, quadrivalent Thuy Delgadokins Work Phone: [facility] Work Phone: 12-11-2018 influenza, injectabl e, quadrivalent, preservative free Thuy Delgadokins Work Phone: [facility] Work Phone: 11-27-2018 influenza, seasonal, injectable Thuy Delgadokins Work Phone: [facility] Work Phone: Payers Date Payer Category Payer Unknown 2017 Medicare 2017 Unknown [id number] 2015 Medicare [id number] 3 2013 Medicare MEDICARE MEDICAR E PART A & B xxxxxxxxxx 2013-Present [place] xxxxxxxxxx [id number] 2013 Medicare [id number] 2013 Medicare MEDICARE MEDICAR E PART A & B [id number] 2013-Present [place] [id number] 1965 Unknown [id number] 1965 Unknown [id number] 1965 Unknown [id number] 1965 Unknown [id number] 1965 Unknown [id number] 1965 Unknown [id number] 1965 Unknown [id number] 1965 Unknown [id number] 1965 Unknown [id number] Private Health Insurance [id number] Social History Date Type Detail Facility Start: 02-01-2017 Tobacco smoking stat [facility] Never smoker [facility] Work Phone: Sex Assigned At Not on file [facility] Work Phone: Start: 07-04-2018 End: 07-05-2018 Tobacco smoking status NHIS Former smoker [facility] End: 07-04-2005 History of tobacco use Current smoker [facility] Start: 07-04-2018 End: 07-05-2018 Cigarettes smoked current (pack per day) - Reported [facility] Start: 07-05-2018 Tobacco use and exposure Never used [facility] Start: 07-05-2018 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 NEGATED: Highlighted row - - [facility] Work Phone: Medical Equipment Procedure Code Equipment Code Equipment Origin al Text Equipment Identifier Dates Closure 6fr Angioseal Vip - [id number] Start: 07-04-2018 Closure 6fr Angioseal Vip - [id number] Start: 07-04-2018 Functional Status Date Assessment [...] 56 Activity-Specific Balance Confidence Scale (ABC): 53% [facility] NEGATED: Highlighted row Functional performance Functional status health issues are not documented Disease [facility] Medicine Work Phone: Mental Status Date Assessment Result Facility NEGATED: Highlighted row Cognitive function [Interpretation] Cognitive status health issues are not documented Disease [facility] Work Phone: Chief complaint Narrative - [...] 04:00 PM , for a telehealth visit.VIRTUAL: [phone]. Cpap not working [facility] Work Phone: Evaluation + Plan note Note Date & Type Note Facility Evaluation + Plan note No data available for this section [facility] History of Present illness Narrative Note Date [...] TO HAVE A NEW MACHINE.PARKINSON'S- STABLEDIVERTICULOSIS- STABLE [facility] Work Phone: History of Present [...] G AND THEY HURT WHEN INJECTING MED [facility] Work Phone: Hospital Discharge instructions Note Date & Type Note Facility Hospital Discharge instructions No data available for this section [facility] Progress note Note Date & Type Note Facility Progress note No data available for this section [facility] Assessments Diagnosis Varicose veins of leg with [...] Documents on File Type Date Recorded Patient Crane Helper Hetal calvert Advance Directives and Edwar lincoln [...] through Care Everywhere. * CARDIAC CATHETERIZATION: LEFT (WELSH) documented in this encounter Chief Complaint * A telephone visit (audio only) between the patient (at the originating site) and the provider (at the distant site) was utilized to provide this telehealth service. * Verbal consent was requested and obtained from ARCENIO BURNHAM on this date, 09/23/2020 03:00 PM , fora telehealth visit. * VIRTUAL: [phone]. Congestion, PRADO, nausea. Additional Source Comments (unrecognized sect ion and content) No Status Records FoundNo Status Records FoundNo Status Records FoundNo Status Records FoundNo Status Records FoundNo Status Records FoundNo Status Records FoundNo Status Records FoundNo Status Records FoundNo Status Records Found INFORMATION SOURCE (unrecogn ized section and content) DATE CREATED AUTHOR AUTHOR'S ORGANIZ ATION 09/06/2017 [facility] DATE CREATED AUTHOR AUTHOR'S ORGANIZ ATION 12/15/2017 [facility] DATE CREATED AUTHOR AUTHOR'S ORGANIZ ATION 01/22/2018 [facility] DATE CREATED AUTHOR AUTHOR'S ORGANIZ ATION 02/16/2018 [facility] DATE CREATED AUTHOR AUTHOR'S ORGANIZ ATION 08/17/2018 [facility] DATE CREATED AUTHOR AUTHOR'S ORGANIZ ATION 10/05/2018 [facility] DATE CREATED AUTHOR AUTHOR'S ORGANIZ ATION 09/24/2020 [facility] DATE CREATED AUTHOR AUTHOR'S ORGANIZ ATION 09/26/2020 [facility] ical Center DATE CREATED AUTHOR AUTHOR'S ORGANIZ ATION 12/17/2022 [facility] Dallin Dallas MD - 07/03/2018 4:17 PM EDT H&P Notes (unrecognized sect ion and content) Dallin Dallas M.D. [facility] [place] [address] June 28, 2018 Steve Barrios MD [address] [place] [address] RE: Arcenio Burnham : [address] Barrios: CHIEF COMPLAINT: 1. Chest pain. 2. Hospitalization at [facility] on 06/25, for chest discomfort. HISTORY OF [...] 05/23/2013, was abnormal. He went to the ID and had a cardiac catheterization in [place] at [facility] and he was told that it was [...] did not resolve and therefore, went to [facility] and was admitted overnight. His troponins were [...] Other Family Members: Positive. Father had an MD at 52. Smoking: Negative. Diabetes: Negative. MEDICATIONS: [...] Catheterization is 2000 and on 09/24/2013, at [facility] and told it was okay. . 6. He has had cholecystectomy. 7. Vasectomy. 8. Appendectomy. FAMILY HISTORY: Father had MD at age 52. Mother had heart disease. Two brothers, 55 and 49, are in good health. SOCIAL HISTORY: He is for the second time for 13 years, has a total of 6 children with 4 children at home; ages 17, 15, 14, and 5; 17-year-old girl is a senior, goes to [employer] for nursing, will graduate within the next month. He does not smoke or drink alcohol. 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 LABORATORY DATA: From [facility] on 06/26/2018. His white count was 7.9, [...] exercise consistent with angina. 2. Hospitalization at [facility] on 06/25/2018, being discharged on 06/26 with negative troponins. 3. Abnormal Myoview stress test with inferolateral ischemia on 12/29/2017. 4. Normal LV function, EF of 60% by an echocardiogram on 12/29/2017. 5. Normal cardiac catheterization in 2000. 6. Catheterization at [facility] in 2013, where he was told everything was okay, although I do not have the actual report. 7. Hypertension, well controlled. 8. Hyperlipidemia, well controlled. 9. Parkinsonism since 2010, well controlled. 10. Strong family history of coronary artery disease with father having a MD at 52. PLAN: Proceed with cardiac catheterization on 07/04 in [place]. DISCUSSION: Mr. Burnham is on full medical therapy with nitrates and beta blockers. However, he continues to have chest pain and was recently hospitalized at [facility] for chest pain. His stress test was [...] contact me. Sincerely, DALLIN DALLAS [id number] Doc#: [id number] documented in this encounter Quick Note - [...] content) Care Team Personnel Name: VINOD ACUÑA MEDICAL OFFICE MANAGER Member Role: Primary Care Physician Address: Address: [address] [place] [phone] Care Team Related Persons Name: ELYSSA BURNHAM [...] BE BASED ON THE PRIMARY CLINICAL RECORDS. [employer] [facility]. provides no warranty or guarantee of the accuracy or completeness of information in this document.
--- NOTE | 2023-03-16 22:02 | EKG12_ITS ---
Test Reason : chest pain Blood Pressure : / mmHG Vent. Rate : 050 BPM Atrial Rate : 050 BPM P-R Int : 184 ms QRS Dur : 100 ms QT Int : 442 ms P-R-T Axes : 008 -20 -15 degrees QTc Int : 402 ms Sinus bradycardia Minimal voltage criteria for LVH, may be normal variant ( R in aVL ) Inferior infarct , age undetermined Abnormal ECG When compared with ECG of 16-MAR-2023 22:45, MANUAL COMPARISON REQUIRED, DATA IS UNCONFIRMED Confirmed by SELMA REDD, STEVE ([id number]), news assignment editor AUBREE MIXON ([id number]) on 03/17/2023 1:32:41 PM Referred By: Confirmed By:STEVE HAHN MD
[2023-03-16] MEDS: traZODone 100 MG Tablet 200 MG PO (22:22)
[2023-03-16] MEDS: MELATONIN 3 MG TABLET 9 MG PO (22:22)
[2023-03-16] MEDS: Gabapentin 300 MG Capsule PO (22:22)
[2023-03-16] MEDS: dilTIAZem 60 MG Tablet PO (22:22)
[2023-03-16] MEDS: clonazePAM 0.5 MG Tablet PO (22:23)
[2023-03-16] MEDS: Morphine 2 MG/ML Syringe IV (22:23)
[2023-03-16] MEDS: Famotidine 20 MG Tablet PO (22:23)
[2023-03-17 00:31] LABS: Troponin-I HS 14 pg/mL (3.0-78.0)
[2023-03-17] MEDS: Morphine 2 MG/ML Syringe IV ×4 (04:23→22:37)
[2023-03-17] MEDS: 0.9% Saline Lock 10 ML Syringe IV ×3 (04:23→22:47)
[2023-03-17 04:33] VITALS: BP 129/70; PULSE 57; RESP 16; TEMP 36.1; O2SAT 96
--- NOTE | 2023-03-17 05:55 | EKG12_ITS ---
Test Reason : admission EKG Blood Pressure : / mmHG Vent. Rate : 055 BPM Atrial Rate : 055 BPM P-R Int : 198 ms QRS Dur : 088 ms QT Int : 432 ms P-R-T Axes : 010 -24 -16 degrees QTc Int : 413 ms Sinus bradycardia Minimal voltage criteria for LVH, may be normal variant ( R in aVL ) Borderline ECG When compared with ECG of 16-MAR-2023 16:48, MANUAL COMPARISON REQUIRED, DATA IS UNCONFIRMED Confirmed by SELMA REDD, STEVE ([id number]), film editor AUBREE MIXON ([id number]) on 03/17/2023 1:33:37 PM Referred By: Confirmed By:STEVE HAHN MD
[2023-03-17] MEDS: Aspirin E.C. 81 MG Tablet PO (06:49)
[2023-03-17] MEDS: Clopidogrel Bisulfate 75 MG Tablet PO (06:49)
[2023-03-17 07:39] LABS: Cholesterol 146 mg/dL (200); High Density Lipoprotein 32 mg/dL; Triglycerides 302 mg/dL; Very Low Density Lipoprotein 60 mg/dL (5-40)
[2023-03-17 10:30] VITALS: BP 120/72; PULSE 52; RESP 16; TEMP 35.9; O2SAT 98
[2023-03-17] MEDS: LEVODOPA 42 MG 84 MG INHALATION ×3 (10:49→22:35)
[2023-03-17] MEDS: Pantoprazole Sodium 40 MG Tablet 80 MG PO ×2 (10:56→22:42)
[2023-03-17] MEDS: hydroCHLOROthiazide 12.5mg 12.5 MG PO (10:57)
[2023-03-17] MEDS: Famotidine 20 MG Tablet PO ×2 (10:57→22:39)
[2023-03-17] MEDS: Cholecalciferol (VIT D3) 25 MCG TABLET (1,000 UNITS) 50 MCG PO (10:57)
[2023-03-17] MEDS: Sucralfate 1 GM Tablet PO ×3 (10:57→22:40)
[2023-03-17] MEDS: Omega-3 Acid Ethyl Esters 1 GM Capsule PO (10:58)
[2023-03-17] MEDS: DULoxetine Hcl 60 MG Capsule PO (10:58)
--- NOTE | 2023-03-17 14:08 | PN.HOSP_ITS ---
Reason for Visit Reason for Visit: Diagnoses Chest pain, unspecified (03/16/23) Subjective Subjective Patient continues to have chest pain, worse with exertion with associated shortness of breath, improved with nitro, substernal pressure. Patient former smoker and also has strong family history of coronary artery disease, has a brother who is wheezing and he already has stents Objective Data Objective Data Vital Signs: Vital Signs Temp Pulse Resp BP Pulse Ox O2 Del Method 96.7 F L 52 L 16 120/72 98 Room Air 03/17/23 10:30 03/17/23 10:30 03/17/23 10:30 03/17/23 10:30 03/17/23 10:30 03/17/23 10:30 Oxygen Delivery Method Room Air Weight: 107 kg Body Mass Index (BMI) 32.8 Intake & Output: Intake and Output for Last 24 Hours 03/15/23 03/16/23 03/17/23 23:59 23:59 23:59 Intake Total 120 / 120 Balance 120 / 120 Lab / Micro Data 03/16/23 17:10 03/16/23 17:10 Labs: Laboratory Results - last 24 hr 03/16/23 17:10: WBC 6.5, RBC 5.12, Hgb 15.2, Hct 44.0, MCV 85.9, MCH 29.7, MCHC 34.5, RDW Std Deviation 38.6, RDW Coeff of Gail 12.4, Plt Count 147 L, MPV 10.1, Immature Gran % (Auto) 0.300, Neut % (Auto) 63.8, Lymph % (Auto) 23.2, [place] % (A uto) 9.7, Eos % (Auto) 2.5, Baso % (Auto) 0.5, Absolute Neuts (auto) 4.2, Absolute Lymphs (auto) 1.51, Nucleated RBC % 0, Sodium 138, Potassium 3.5, Chloride 106, Carbon Dioxide 28.0, Anion Gap 4 L, BUN 23 H, Creatinine 1.25, Estim Creat Clear Calc 81.49, Est GFR (MDRD) Af Amer 76, Est GFR (MDRD) Non-Af 63, BUN/Creatinine Ratio 18.4, Glucose 173 H, Calcium 9.3, Troponin I High Sens 8 03/16/23 17:28: B-Natriuretic Peptide 5.2 03/16/23 19:35: Troponin I High Sens 10 03/16/23 23:51: Troponin I High Sens 14 03/17/23 06:30: Triglycerides 302 H, Cholesterol 146, LDL Cholesterol 54, VLDL Cholesterol 60 H, HDL Cholesterol 32 L Radiography Diagnostic Testing: Radiology Impression Chest X-Ray 03/16/23 17:24 IMPRESSION: Normal x-ray examination of the chest. Electronically Signed: Marlon Alex MD at 17:47 EST , Physical Exam Narrative General: Alert, oriented, no apparent distress HEENT: Atraumatic, normocephalic Eyes: Anicteric, normal conjunctiva, extraocular movements grossly intact Neck: Supple Respiratory: Clear to auscultation bilaterally, normal respiratory effort Cardiovascular: Regular rate and rhythm GI: Soft, nontender, nondistended Extremities: No edema Musculoskeletal: Moving all extremities Neuro: No overt focal neurological deficits Skin: No rashes appreciated Psych: Cooperative Assessment & Plan Assessment/Plan (1) Chest pain: QUALIFIERS: Chest pain type: unspecified Qualified Code(s): R07.9 - Chest pain, unspecified PLAN: Plan 1. typical chest pain - Admit to CDU under observation status. Serialize troponin. Check d-dimer. Continue ECASA plus prn SL NTG. Check echocardiogram to evaluate LVEF. Check Lexiscan NST in the AM to evaluate for ischemia. -03/17: Patient has chest pain relieved with nitro, symptoms including shortness of breath that worsened with exertion and pain is substernal, continues to have pain, echo and stress test are pending however patient has smoking history and also has very strong history of coronary artery disease so even if these are negative would still like cardiology's input as stress could be false negative. Cardiology consult placed, patient on aspirin, Plavix, and statin 2. Severe GERD; with history of hiatal hernia on Protonix twice daily, Pepcid and Carafate complicating #1 likely due to at least in part to Pill Esophagitis with Polypharmacy as he is on 27 different routine medications chronically - Continue aggressive GERD regimen. Consider GI consultation as outpatient if cardiac workup is negative and chest pain persists. -03/17: Continue PPI 3. History of chest pain; with left heart catheterization ~15 years ago which showed mild blockages but no flow-limiting ischemia treated with Cardizem - Noted. Continue Cardizem as previous. -03/17: See 1 4. Essential hypertension - Continue home regimen plus give prn IV Hydralazine for systolic blood pressure > 160 mm Hg. 5. Hyperlipidemia - Resume statin and check lipid profile in light of #1. -03/17: Continue statin 6. Obesity; with BMI of 33.2 this admission plus obstructive sleep apnea; on CPAP - Weight loss will be recommended. Continue nocturnal CPAP. 7. Diabetes mellitus type 2; of unknown control - ADA diet. FSBS q. AC/HS plus SSI. Check HgbA1c to objectively assess quality of diabetic control. -03/17: Awaiting A1c 8. History of TIA/CVA; on Plavix - Continue Plavix. 9. Parkinson's disease - Resume carbidopa and levodopa as previous. 10. Systemic lupus erythematosus - Stable. Moderate thrombocytopenia of 147 present on admission. 11. History of colonic diverticulitis; s/p colectomy - Noted. 12. BPH - Continue Prazosin. 13. History of de Quervain's tenosynovitis (right) - Noted. 14. Depression with anxiety - Resume home medications as previous plus give prn Xanax for breakthrough symptoms. 15. Osteoarthritis - Give Tylenol prn. 16. DVT prophylaxis - Lovenox 40 mg sq daily. Total time: Approximately 35 minutes. Charges/Coding Visit Charges Inpatient E&M: 13742 Subs Hosp L2
--- NOTE | 2023-03-17 15:07 | STRESSREP ---
Stress Test Report Pharmacologic Lexiscan myocardial perfusion stress test. Indication; 57-year-old patient presented with symptoms of chest pain Cardiac workup with cardiac markers negative. Stress protocol: Resting EKG demonstrates. Normal sinus rhythm. 0.4 mg of regadenoson was infused per usual protocol followed by rapid intravenous saline flush injection continuous EKG monitoring was performed. The maximum heart rate attained was 75 bpm which was 46% of maximum predicted heart . Stress EKG showed[, no significant change from the resting EKG, with maximum heart rate of 75 bpm. Arrhythmia: No arrhythmia demonstrated Symptoms: Patient had no symptoms of chest pain Blood pressure at rest: [112/74 mmHg blood pressure at the end of stress: 118/62 mmHg Myocardial perfusion protocol. 14.2 mCi ]of Technetium 99m Sestamibi was injected at rest. [ 0.4 mg ]of Regadenoson was infused per usual protocol peak infusion 44.3 mCi ]of Technetium 99m sestamibi was injected. Stress images were obtained stress and rest images were reconstructed and compared in the short axis vertical and horizontal long axis. Gated images were also obtained Perfusion SPECT analysis: Review of the images demonstrate normal uptake of sestamibi at rest, post stress images demonstrate similar uptake of sestamibi to the resting images, homogeneous tracer uptake With no evidence of reversible myocardial ischemia. Gated SPECT analysis: The gated ejection fraction is 61% Normal LV wall motion with normal LV systolic function Conclusion: Negative Lexiscan sestamibi myocardial perfusion study for reversible myocardial ischemia Normal myocardial perfusion study Normal LV systolic function Cristina Duncan MD,FACC,[facility]
--- NOTE | 2023-03-17 15:12 | CON.PCM.CA_ITS ---
HPI Consult Data Date of Consult: 03/17/23 HPI Narrative HPI Narrative: KRISHAN BURNHAM, is a 57 M who presented to [facility] yesterday with chest pain. He does have a history of hypertension, hyperlipidemia, diabetes and CVA. Patient had noted that his chest pain started approximately 4 days ago. It was retrosternal in nature with some lightheadedness. Chest discomfort have progressed and that brought him to the emergency room. He noted that it radiated up to his arms and into his neck. He does have a strong family history of heart disease. He states that he had a heart catheterization approximately 15 years ago where he was noted to have mild disease. Troponins have been negative. He did undergo a stress test and echocardiogram today. Stress test was negative for ischemia. We were consulted due to the nature of his symptoms and it was felt that it was likely cardiac in origin. [facility] Medical History Abdominal pain Acute cerebrovascular accident (CVA) due to ischemia Acute stroke due to ischemia Borderline type 2 diabetes mellitus Chest pain Constipation COVID-19 vaccine series completed CPAP (continuous positive airway pressure) dependence Depression with anxiety Diabetes Diverticulitis Former smoker GERD (gastroesophageal reflux disease) History of hiatal hernia HLD (hyperlipidemia) HTN (hypertension) Hyperlipidemia Hypertension Lupus Parkinsons disease Sleep apnea Type 2 diabetes mellitus Wears glasses Home Medications melatonin 3 mg tablet 9 mg PO QHS SLEEP 05/12/19 [History Last Taken 03/15/23] trazodone 100 mg tablet 200 mg PO QHS SLEEP 05/12/19 [History Last Taken 03/16/23] famotidine 20 mg tablet 20 mg PO BID GERD 02/17/20 [History Last Taken 03/16/23] clonazepam 0.5 mg tablet 0.5 mg PO QHS SLEEP 02/16/21 [History Last Taken 03/15/23] levodopa 42 mg capsule with inhalation device (Inbrija) 84 mg inhalation 0700,1100,1500 PARKINSONS 02/16/21 [History Last Taken 03/16/23] propranolol 10 mg tablet 10 mg PO TID HYPERTENSION 02/16/21 [History Last Taken 03/16/23] carbidopa ER 36.25 mg-levodopa 145 mg capsule,extended release (Rytary) 4 cap PO 4X/DAY Parkinsons 11/30/21 [History Last Taken 03/16/23] cholecalciferol (vitamin D3) 50 mcg (2,000 unit) tablet 50 mcg PO DAILY SUPPLEMENT 11/30/21 [History Last Taken 03/16/23] diltiazem HCl 60 mg tablet 60 mg PO BID HYPERTENSION/AGINA 11/30/21 [History Last Taken 03/16/23] empagliflozin 25 mg tablet (Jardiance) 12.5 mg PO DAILY DIABETES 11/30/21 [History Last Taken 03/16/23] omega-3 fatty acids 1,000 mg PO DAILY SUPPLEMENT 11/30/21 [History Last Taken 03/16/23] pantoprazole 40 mg tablet,delayed release (Protonix) 80 mg PO BID GERD 11/30/21 [History Last Taken 03/16/23] polyethylene glycol 3350 17 gram oral powder packet 17 g PO QHS PRN CONSTIPATION 11/30/21 [History Last Taken 03/15/23] prazosin 5 mg capsule 10 mg PO QHS HYPERTENSION 11/30/21 [History Last Taken 03/15/23] rosuvastatin 20 mg tablet 20 mg PO QHS HIGH CHOLESTEROL 11/30/21 [History Last Taken 03/16/23] sucralfate 1 gram tablet (Carafate) 1 g PO Q6H STOMACH ULCERS #28 tabs 03/24/22 [Rx Last Taken 01/10/23] duloxetine 60 mg capsule,delayed release 120 mg PO DAILY DEPRESSION 03/29/22 [History Last Taken 03/16/23] aspirin 81 mg tablet,delayed release 81 mg PO DAILY HEART HEALTH #30 tabs 01/12/23 [Rx Last Taken 03/16/23] clopidogrel 75 mg tablet 75 mg PO DAILY BLOOD THINNER #21 tabs 01/12/23 [Rx Last Taken 03/16/23] clonazepam 0.5 mg tablet 0.5 mg PO DAILY PRN PANIC ATTACKS 03/16/23 [History Last Taken 03/14/23] diclofenac sodium 1 % topical gel 4 g topical BID PRN OSTEOARTHRITIS 03/16/23 [History Last Taken Unknown] gabapentin 300 mg capsule 300 mg PO QHS RESTLESS LEG SYNDROME 03/16/23 [History Last Taken 03/15/23] hydrochlorothiazide 12.5 mg tablet 12.5 mg PO QAM BLOOD PRESSURE 03/16/23 [History Last Taken 03/16/23] lidocaine 5 % topical patch 1 patch topical DAILY PRN SEVERE PAIN 03/16/23 [History Last Taken Unknown] sildenafil 100 mg tablet 100 mg PO DAILY PRN sexual activity 03/16/23 [History Last Taken Unknown] sodium chloride-aloe vera nasal gel (Drayton Saline nasal gel) 1 applic intranasal DAILY NASAL DRYNESS 03/16/23 [History Last Taken 03/16/23] sucralfate 100 mg/mL oral suspension (Carafate) 1 g PO 4X/DAY ULCERS 03/16/23 [History Last Taken 03/16/23] Allergy/AdvReac Type Severity Reaction Status Date / Time No Known Allergies Allergy Verified 03/16/23 16:42 Family History Mother Heart disease Hypertension High cholesterol Cancer skin cancer Father Heart disease High cholesterol Hypertension CVA (cerebral vascular accident) Surgical History History of appendectomy History of colectomy (~02/2020) History of laparoscopic cholecystectomy S/P arthroscopic surgery of left knee Social History household members: spouse number of children: 5 current occupational status: unemployed Smoking Status: Former smoker how long ago did patient quit smoking: Quit ~ 15 years prior, smoked socially only. alcohol intake: never substance use type: does not use Objective Data Vital Signs: Vital Signs Temp Pulse Resp BP Pulse Ox O2 Del Method 96.7 F L 52 L 16 120/72 98 Room Air 03/17/23 10:30 03/17/23 10:30 03/17/23 10:30 03/17/23 10:30 03/17/23 10:30 03/17/23 10:30 Oxygen Delivery Method Room Air Weight: 235 lb 14.314 oz Body Mass Index (BMI) 32.8 Intake & Output: Intake and Output for Last 24 Hours 03/15/23 03/16/23 03/17/23 23:59 23:59 23:59 Intake Total 120 / 120 Balance 120 / 120 Lab / Micro Data 03/16/23 17:10 03/16/23 17:10 Labs: Laboratory Results - last 24 hr 03/16/23 17:10: WBC 6.5, RBC 5.12, Hgb 15.2, Hct 44.0, MCV 85.9, MCH 29.7, MCHC 34.5, RDW Std Deviation 38.6, RDW Coeff of Gail 12.4, Plt Count 147 L, MPV 10.1, Immature Gran % (Auto) 0.300, Neut % (Auto) 63.8, Lymph % (Auto) 23.2, [place] % (Auto) 9.7, Eos % (Auto) 2.5, Baso % (Auto) 0.5, Absolute Neuts (auto) 4.2, Absolute Lymphs (auto) 1.51, Nucleated RBC % 0, Sodium 138, Potassium 3.5, Chloride 106, Carbon Dioxide 28.0, Anion Gap 4 L, BUN 23 H, Creatinine 1.25, Estim Creat Clear Calc 81.49, Est GFR (MDRD) Af Amer 76, Est GFR (MDRD) Non-Af 63, BUN/Creatinine Ratio 18.4, Glucose 173 H, Calcium 9.3, Troponin I High Sens 8 03/16/23 17:28: B-Natriuretic Peptide 5.2 03/16/23 19:35: Troponin I High Sens 10 03/16/23 23:51: Troponin I High Sens 14 03/17/23 06:30: Triglycerides 302 H, Cholesterol 146, LDL Cholesterol 54, VLDL Cholesterol 60 H, HDL Cholesterol 32 L Cardiology Labs/Tests 03/16/23 17:10: WBC 6.5, RBC 5.12, Hgb 15.2, Hct 44.0, MCV 85.9, MCH 29.7, MCHC 34.5, Plt Count 147 L, MPV 10.1, Immature Gran % (Auto) 0.300, Neut % (Auto) 63.8, Lymph % (Auto) 23.2, [place] % (Auto) 9.7, Eos % (Auto) 2.5, Baso % (Auto) 0.5, Absolute Neuts (auto) 4.2, Nucleated RBC % 0, Sodium 138, Potassium 3.5, Chloride 106, Carbon Dioxide 28.0, Anion Gap 4 L, BUN 23 H, Creatinine 1.25, Est GFR (MDRD) Af Amer 76, Est GFR (MDRD) Non-Af 63, BUN/Creatinine Ratio 18.4, Glucose 173 H, Calcium 9.3 03/16/23 17:28: B-Natriuretic Peptide 5.2 03/17/23 06:30: Triglycerides 302 H, Cholesterol 146, LDL Cholesterol 54, VLDL Cholesterol 60 H, HDL Cholesterol 32 L Rhythm: EKG: ECHO: Stress Test: Cardiac Cath: PCI: CT Surgery: Holter monitor: EPS: PPM: CXR: Chest CT Scan: Radiography Diagnostic Testing: Radiology Impression Chest X-Ray 03/16/23 17:24 IMPRESSION: Normal x-ray examination of the chest. Electronically Signed: Marlon Alex MD at 17:47 EST ,
--- NOTE | 2023-03-17 15:30 | CASEMGMT ---
Social Work Both LW and Healthcare POA scanned into [facility], Guera Hernández is pt's healthcare POA. BINTA Carlton
--- NOTE | 2023-03-17 16:19 | PCM.CONS.C ---
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 Minor change in the EKG was noted mainly in the inferior leads with some ST depression. While resting in PCU he was complaining of retrosternal chest pain the prior cardiac catheterization and also had a family history of CAD his brother had a coronary artery stent In January 11 he was in the hospital with history of stroke affecting his right side. Cardiac exam essentially normal. Further evaluation by myocardial perfusion study which is Lexiscan sestamibi showed no evidence of ischemia and evaluation by echocardiogram showed LV function is preserved with no significant valve abnormality Cardiac care plan recommendations; I discussed in detail the plan of outpatient evaluation patient insisted that he is continue to have symptoms of chest pain at rest and on exertion will plan for cardiac catheterization which can be set up on Monday As well CTA to assess for ascending aorta. HPI Consult Data Date of Consult: 03/17/23 HPI Narrative Reason for Consultation: Chest pain evaluation/[facility] HPI Narrative: KRISHAN BURNHAM, is a 57 M who presents [facility] Medical History Abdominal pain Acute cerebrovascular accident (CVA) due to ischemia Acute stroke due to ischemia Borderline type 2 diabetes mellitus Chest pain Constipation COVID-19 vaccine series completed CPAP (continuous positive airway pressure) dependence Depression with anxiety Diabetes Diverticulitis Former smoker GERD (gastroesophageal reflux disease) History of hiatal hernia HLD (hyperlipidemia) HTN (hypertension) Hyperlipidemia Hypertension Lupus Parkinsons disease Sleep apnea Type 2 diabetes mellitus Wears glasses Home Medications melatonin 3 mg tablet 9 mg PO QHS SLEEP 05/12/19 [History Last Taken 03/15/23] trazodone 100 mg tablet 200 mg PO QHS SLEEP 05/12/19 [History Last Taken 03/16/23] famotidine 20 mg tablet 20 mg PO BID GERD 02/17/20 [History Last Taken 03/16/23] clonazepam 0.5 mg tablet 0.5 mg PO QHS SLEEP 02/16/21 [History Last Taken 03/15/23] levodopa 42 mg capsule with inhalation device (Inbrija) 84 mg inhalation 0700,1100,1500 PARKINSONS 02/16/21 [History Last Taken 03/16/23] propranolol 10 mg tablet 10 mg PO TID HYPERTENSION 02/16/21 [History Last Taken 03/16/23] carbidopa ER 36.25 mg-levodopa 145 mg capsule,extended release (Rytary) 4 cap PO 4X/DAY Parkinsons 11/30/21 [History Last Taken 03/16/23] cholecalciferol (vitamin D3) 50 mcg (2,000 unit) tablet 50 mcg PO DAILY SUPPLEMENT 11/30/21 [History Last Taken 03/16/23] diltiazem HCl 60 mg tablet 60 mg PO BID HYPERTENSION/AGINA 11/30/21 [History Last Taken 03/16/23] empagliflozin 25 mg tablet (Jardiance) 12.5 mg PO DAILY DIABETES 11/30/21 [History Last Taken 03/16/23] omega-3 fatty acids 1,000 mg PO DAILY SUPPLEMENT 11/30/21 [History Last Taken 03/16/23] pantoprazole 40 mg tablet,delayed release (Protonix) 80 mg PO BID GERD 11/30/21 [History Last Taken 03/16/23] polyethylene glycol 3350 17 gram oral powder packet 17 g PO QHS PRN CONSTIPATION 11/30/21 [History Last Taken 03/15/23] prazosin 5 mg capsule 10 mg PO QHS HYPERTENSION 11/30/21 [History Last Taken 03/15/23] rosuvastatin 20 mg tablet 20 mg PO QHS HIGH CHOLESTEROL 11/30/21 [History Last Taken 03/16/23] sucralfate 1 gram tablet (Carafate) 1 g PO Q6H STOMACH ULCERS #28 tabs 03/24/22 [Rx Last Taken 01/10/23] duloxetine 60 mg capsule,delayed release 120 mg PO DAILY DEPRESSION 03/29/22 [History Last Taken 03/16/23] aspirin 81 mg tablet,delayed release 81 mg PO DAILY HEART HEALTH #30 tabs 01/12/23 [Rx Last Taken 03/16/23] clopidogrel 75 mg tablet 75 mg PO DAILY BLOOD THINNER #21 tabs 01/12/23 [Rx Last Taken 03/16/23] clonazepam 0.5 mg tablet 0.5 mg PO DAILY PRN PANIC ATTACKS 03/16/23 [History Last Taken 03/14/23] diclofenac sodium 1 % topical gel 4 g topical BID PRN OSTEOARTHRITIS 03/16/23 [History Last Taken Unknown] gabapentin 300 mg capsule 300 mg PO QHS RESTLESS LEG SYNDROME 03/16/23 [History Last Taken 03/15/23] hydrochlorothiazide 12.5 mg tablet 12.5 mg PO QAM BLOOD PRESSURE 03/16/23 [History Last Taken 03/16/23] lidocaine 5 % topical patch 1 patch topical DAILY PRN SEVERE PAIN 03/16/23 [History Last Taken Unknown] sildenafil 100 mg tablet 100 mg PO DAILY PRN sexual activity 03/16/23 [History Last Taken Unknown] sodium chloride-aloe vera nasal gel ([place] Saline nasal gel) 1 applic intranasal DAILY NASAL DRYNESS 03/16/23 [History Last Taken 03/16/23] sucralfate 100 mg/mL oral suspension (Carafate) 1 g PO 4X/DAY ULCERS 03/16/23 [History Last Taken 03/16/23] Allergy/AdvReac Type Severity Reaction Status Date / Time No Known Allergies Allergy Verified 03/16/23 16:42 Family History Mother Heart disease Hypertension High cholesterol Cancer skin cancer Father Heart disease High cholesterol Hypertension CVA (cerebral vascular accident) Surgical History History of appendectomy History of colectomy (~02/2020) History of laparoscopic cholecystectomy S/P arthroscopic surgery of left knee Social History household members: spouse number of children: 5 current occupational status: unemployed Smoking Status: Former smoker how long ago did patient quit smoking: Quit ~ 15 years prior, smoked socially only. alcohol intake: never substance use type: does not use Physical Exam Cardio Cardio Narrative: Resting in chair in PCU Complaining of chest discomfort described as retrosternal with some radiation to the left arm and to the left jaw. Cardiac rhythm is normal sinus Cardiac exam S1-S2 regular Chest exam clear to auscultation bilateral. Risk Stratification Risk Stratification Applicable: Yes Age >/= 65: No >/= 3 CAD Risk Factors (HTN, HLD, DM, family hx of CAD, or current smoker): No Aspirin Use in the Past 7 Days: Yes Severe Angina (>/= episodes in 24 hours): Yes EKG ST Changes >/= 0.5mm: Yes Positive Cardiac Marker: No MACIE Risk Stratification Score: 3 MACIE % Risk: 13% Risk Objective Data Vital Signs: Vital Signs Temp Pulse Resp BP Pulse Ox O2 Del Method 96.7 F L 52 L 16 120/72 98 Room Air 03/17/23 10:30 03/17/23 10:30 03/17/23 10:30 03/17/23 10:30 03/17/23 10:30 03/17/23 10:30 Oxygen Delivery Method Room Air Weight: 235 lb 14.314 oz Body Mass Index (BMI) 32.8 Intake & Output: Intake and Output for Last 24 Hours 03/15/23 03/16/23 03/17/23 23:59 23:59 23:59 Intake Total 120 / 120 Balance 120 / 120 Lab / Micro Data 03/16/23 17:10 03/16/23 17:10 Labs: Laboratory Results - last 24 hr 03/16/23 17:10: WBC 6.5, RBC 5.12, Hgb 15.2, Hct 44.0, MCV 85.9, MCH 29.7, MCHC 34.5, RDW Std Deviation 38.6, RDW Coeff of Gail 12.4, Plt Count 147 L, MPV 10.1, Immature Gran % (Auto) 0.300, Neut % (Auto) 63.8, Lymph % (Auto) 23.2, [place] % (Auto) 9.7, Eos % (Auto) 2.5, Baso % (Auto) 0.5, Absolute Neuts (auto) 4.2, Absolute Lymphs (auto) 1.51, Nucleated RBC % 0, Sodium 138, Potassium 3.5, Chloride 106, Carbon Dioxide 28.0, Anion Gap 4 L, BUN 23 H, Creatinine 1.25, Estim Creat Clear Calc 81.49, Est GFR (MDRD) Af Amer 76, Est GFR (MDRD) Non-Af 63, BUN/Creatinine Ratio 18.4, Glucose 173 H, Calcium 9.3, Troponin I High Sens 8 03/16/23 17:28: B-Natriuretic Peptide 5.2 01/18/24 19:35: Troponin I High Sens 10 03/16/23 23:51: Troponin I High Sens 14 03/17/23 06:30: Triglycerides 302 H, Cholesterol 146, LDL Cholesterol 54, VLDL Cholesterol 60 H, HDL Cholesterol 32 L Cardiology Labs/Tests 03/16/23 17:10: WBC 6.5, RBC 5.12, Hgb 15.2, Hct 44.0, MCV 85.9, MCH 29.7, MCHC 34.5, Plt Count 147 L, MPV 10.1, Immature Gran % (Auto) 0.300, Neut % (Auto) 63.8, Lymph % (Auto) 23.2, [place] % (Auto) 9.7, Eos % (Auto) 2.5, Baso % (Auto) 0.5, Absolute Neuts (auto) 4.2, Nucleated RBC % 0, Sodium 138, Potassium 3.5, Chloride 106, Carbon Dioxide 28.0, Anion Gap 4 L, BUN 23 H, Creatinine 1.25, Est GFR (MDRD) Af Amer 76, Est GFR (MDRD) Non-Af 63, BUN/Creatinine Ratio 18.4, Glucose 173 H, Calcium 9.3 03/16/23 17:28: B-Natriuretic Peptide 5.2 03/17/23 06:30: Triglycerides 302 H, Cholesterol 146, LDL Cholesterol 54, VLDL Cholesterol 60 H, HDL Cholesterol 32 L Rhythm: EKG: ECHO: Stress Test: Cardiac Cath: PCI: CT Surgery: Holter monitor: EPS: PPM: CXR: Chest CT Scan: Radiography Diagnostic Testing: Radiology Impression Chest X-Ray 03/16/23 17:24 IMPRESSION: Normal x-ray examination of the chest. Electronically Signed: Marlon Alex MD at 17:47 EST Reading Location ID and State: [facility] / [place] Tel , Service support , Echocardiogram 03/16/23 19:50 Interpretation Summary The estimated ejection fraction is 65 %. Mild concentric left ventricular hypertrophy. Structually normal valves. Compared to prior study, there is no significant change. Ordering Physician: Jake Franklin Referring Physician: [facility] Performed By: Liat Arrington RDCS, RVT
[2023-03-17 16:30] VITALS: BP 118/70; PULSE 58; RESP 18; TEMP 36.1; O2SAT 100
[2023-03-17 22:30] VITALS: BP 139/81; PULSE 67; RESP 14; TEMP 36.6; O2SAT 94
[2023-03-17] MEDS: MELATONIN 3 MG TABLET 9 MG PO (22:36)
[2023-03-17] MEDS: clonazePAM 0.5 MG Tablet PO (22:36)
[2023-03-17] MEDS: Gabapentin 300 MG Capsule PO (22:36)
[2023-03-17] MEDS: traZODone 100 MG Tablet 200 MG PO (22:37)
[2023-03-17] MEDS: Polyethylene Glycol 3350 17 GM PACKET PO (22:39)
[2023-03-17] MEDS: Doxazosin 4 MG Tablet 8 MG PO (22:39)
[2023-03-17] MEDS: Atorvastatin Calcium 40 MG Tablet PO (22:41)
[2023-03-17] MEDS: dilTIAZem 60 MG Tablet PO (22:41)
[2023-03-18 04:30] VITALS: BP 119/68; PULSE 58; RESP 14; TEMP 35.7; O2SAT 96
[2023-03-18] MEDS: Morphine 2 MG/ML Syringe IV ×4 (05:58→21:52)
[2023-03-18] MEDS: CARBIDOPA/LEVODOPA 1 EACH CAPSULE.ER 3 EACH PO ×4 (06:00→21:49)
[2023-03-18] MEDS: Sucralfate 1 GM Tablet PO ×4 (06:00→21:43)
[2023-03-18] MEDS: LEVODOPA 42 MG 84 MG INHALATION ×3 (06:01→15:00)
[2023-03-18 06:54] LABS: Absolute Lymphocyte Count 0.95 X10^3/uL (0.83-4.51); Absolute Neutrophil Count 3.7 X10^3/uL (2.0-7.7); Basophil# 0.05 X10^3/uL; Basophil% 0.9 % (0-1); Eosinophils% 3.6 % (0-5); Hematocrit 42.2 % (40-54); Hemoglobin 14.5 g/dL (13.0-16.5); Lymphocyte # 0.95 X10^3/ul (0.83-4.51); Lymphocyte % 17.1 % (19-41); Mean Corp Hgb Conc 34.4 g/dL (32-36); Mean Corpuscular Hgb 29.4 pg (27.0-32.0); Mean Corpuscular Volume 85.6 fL (80-94); Monocyte# 0.66 X10^3/uL; Monocyte% 11.8 % (0-10); NRBC Flagged by Analyzer 0 % (0-5); Neutrophil # 3.69 X10^3/uL (2.7-7.7); Neutrophil % 66.2 % (47-70); Platelet Count 137 K/mm3 (150-450); RBC Distribution Width CV 12.4 % (11.6-14.6); RBC Distribution Width SD 38.5 fl (35.1-43.9); Red Blood Count 4.93 M/mm3 (4.6-6.2); White Blood Count 5.6 K/mm3 (4.4-11.0)
[2023-03-18 06:58] LABS: Prothrombin Time (Protime)PT. 13.6 SECONDS (11.7-14.9)
[2023-03-18 07:03] LABS: Anion Gap 5 (5-15); BUN 29 mg/dL (7-18); Calcium,Total 8.5 mg/dL (8.5-10.1); Chloride 108 mmol/L (98-107); Creatinine, Serum 0.97 mg/dL (0.70-1.30); EST Glomerular Filtration Rate 85 mL/min (>60); Est Glom Filt Rate - Afr Amer 103 mL/min (>60); Estimated Creatinine Clearance 104.56 ml/min; Glucose 158 mg/dL (74-106); Potassium 3.6 mmol/L (3.5-5.1); Sodium Level 139 mmol/L (136-145)
[2023-03-18 07:41] LABS: Hemoglobin A1c 6.4 % (3.8-5.6)
--- NOTE | 2023-03-18 08:33 | PCM.PN.HOSP ---
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 (03/17/23) Chest pain, unspecified (03/17/23) Subjective Subjective Patient reports he continues to have chest pain and he had an episode that woke him up overnight, morphine has been helpful when he takes it, awaiting heart cath Objective Data Objective Data Vital Signs: Vital Signs Temp Pulse Resp BP Pulse Ox O2 Del Method 96.3 F L 58 L 14 119/68 96 Room Air 03/18/23 04:30 03/18/23 04:30 03/18/23 04:30 03/18/23 04:30 03/18/23 04:30 03/18/23 04:30 Oxygen Delivery Method Room Air Weight: 107 kg Body Mass Index (BMI) 32.8 Intake & Output: Intake and Output for Last 24 Hours 03/16/23 03/17/23 03/18/23 23:59 23:59 23:59 Intake Total 600 / 1080 960 / 960 Balance 600 / 1080 960 / 960 Lab / Micro Data 03/18/23 06:28 03/18/23 06:28 Labs: Laboratory Results - last 24 hr 03/18/23 06:28: WBC 5.6, RBC 4.93, Hgb 14.5, Hct 42.2, MCV 85.6, MCH 29.4, MCHC 34.4, RDW Std Deviation 38.5, RDW Coeff of Gail 12.4, Plt Count 137 L, MPV 10.0, Immature Gran % (Auto) 0.400, Neut % (Auto) 66.2, Lymph % (Auto) 17.1 L, [place] % (Auto) 11.8 H, Eos % (Auto) 3.6, Baso % (Auto) 0.9, Absolute Neuts (auto) 3.7, Absolute Lymphs (auto) 0.95, Nucleated RBC % 0, PT 13.6, INR 1.0, Sodium 139, Potassium 3.6, Chloride 108 H, Carbon Dioxide 26.0, Anion Gap 5, BUN 29 H, Creatinine 0.97, Estim Creat Clear Calc 104.56, Est GFR (MDRD) Af Amer 103, Est GFR (MDRD) Non-Af 85, BUN/Creatinine Ratio 30.0 H, Glucose 158 H, Hemoglobin A1c 6.4 H, Calcium 8.5 Radiography Diagnostic Testing: Radiology Impression Echocardiogram 03/16/23 19:50 Interpretation Summary The estimated ejection fraction is 65 %. Mild concentric left ventricular hypertrophy. Structually normal valves. Compared to prior study, there is no significant change. Ordering Physician: Jake Franklin Referring Physician: [facility] Performed By: Liat Arrington RDCS, RVT Physical Exam Narrative General: Alert, oriented, no apparent distress HEENT: Atraumatic, normocephalic Eyes: Anicteric, normal conjunctiva, extraocular movements grossly intact Neck: Supple Respiratory: Clear to auscultation bilaterally, normal respiratory effort Cardiovascular: Regular rate and rhythm GI: Soft, nontender, nondistended Extremities: No edema Musculoskeletal: Moving all extremities Neuro: No overt focal neurological deficits Skin: No rashes appreciated Psych: Cooperative Assessment & Plan Assessment/Plan (1) Chest pain: QUALIFIERS: Chest pain type: unspecified Qualified Code(s): R07.9 - Chest pain, unspecified PLAN: Plan 1. typical chest pain - Admit to CDU under observation status. Serialize troponin. Check d-dimer. Continue ECASA plus prn SL NTG. Check echocardiogram to evaluate LVEF. Check Lexiscan NST in the AM to evaluate for ischemia. -03/17: Patient has chest pain relieved with nitro, symptoms including shortness of breath that worsened with exertion and pain is substernal, continues to have pain, echo and stress test are pending however patient has smoking history and also has very strong history of coronary artery disease so even if these are negative would still like cardiology's input as stress could be false negative. Cardiology consult placed, patient on aspirin, Plavix, and statin -03/18: Given stress and echo are okay patient was offered outpatient evaluation however given his ongoing pain cardiac cath to be arranged for Monday 2. Severe GERD; with history of hiatal hernia on Protonix twice daily, Pepcid and Carafate complicating #1 likely due to at least in part to Pill Esophagitis with Polypharmacy as he is on 27 different routine medications chronically - Continue aggressive GERD regimen. Consider GI consultation as outpatient if cardiac workup is negative and chest pain persists. -03/17: Continue PPI 3. History of chest pain; with left heart catheterization ~15 years ago which showed mild blockages but no flow-limiting ischemia treated with Cardizem - Noted. Continue Cardizem as previous. -03/17: See 1 4. Essential hypertension - Continue home regimen plus give prn IV Hydralazine for systolic blood pressure > 160 mm Hg. 5. Hyperlipidemia - Resume statin and check lipid profile in light of #1. -03/17: Continue statin 6. Obesity; with BMI of 33.2 this admission plus obstructive sleep apnea; on CPAP - Weight loss will be recommended. Continue nocturnal CPAP. 7. Diabetes mellitus type 2; of unknown control - ADA diet. FSBS q. AC/HS plus SSI. Check HgbA1c to objectively assess quality of diabetic control. -03/17: Awaiting A1c -03/18: Patient found to be prediabetic with A1c of 6.4, encouraged lifestyle modification 8. History of TIA/CVA; on Plavix - Continue Plavix. 9. Parkinson's disease - Resume carbidopa and levodopa as previous. 10. Systemic lupus erythematosus - Stable. Moderate thrombocytopenia of 147 present on admission. -03/18: Continue to monitor 11. History of colonic diverticulitis; s/p colectomy - Noted. 12. BPH - Continue Prazosin. 13. History of de Quervain's tenosynovitis (right) - Noted. 14. Depression with anxiety - Resume home medications as previous plus give prn Klonopin for breakthrough symptoms. 15. Osteoarthritis - Give Tylenol prn. 16. DVT prophylaxis - Lovenox 40 mg sq daily. Total time: Approximately 35 minutes. Charges/Coding Visit Charges Inpatient E&M: 08377 Subs Hosp L2
[2023-03-18] MEDS: Pantoprazole Sodium 40 MG Tablet 80 MG PO ×2 (09:57→21:44)
[2023-03-18] MEDS: DULoxetine Hcl 60 MG Capsule PO (09:57)
[2023-03-18] MEDS: Omega-3 Acid Ethyl Esters 1 GM Capsule PO (09:57)
[2023-03-18 10:00] VITALS: BP 123/69; PULSE 75; RESP 16; TEMP 36.3; O2SAT 95
[2023-03-18] MEDS: Famotidine 20 MG Tablet PO ×2 (10:02→21:45)
[2023-03-18] MEDS: hydroCHLOROthiazide 12.5mg 12.5 MG PO (10:03)
[2023-03-18] MEDS: Aspirin E.C. 81 MG Tablet PO (10:03)
[2023-03-18] MEDS: Clopidogrel Bisulfate 75 MG Tablet PO (10:03)
[2023-03-18] MEDS: dilTIAZem 60 MG Tablet PO ×2 (10:04→21:43)
[2023-03-18] MEDS: 0.9% Saline Lock 10 ML Syringe IV ×3 (10:04→21:54)
[2023-03-18] MEDS: Cholecalciferol (VIT D3) 25 MCG TABLET (1,000 UNITS) 50 MCG PO (10:04)
[2023-03-18] MEDS: Enoxaparin 40 MG/0.4 ML Syringe SC (10:22)
--- NOTE | 2023-03-18 11:10 | CASEMGMT ---
RN CM Face to Face with patient for initial transition planning/care coordination assessment. RN CM introduced self and role at [facility]. Patient sitting in chair, alert and oriented. Patient willing to participate in assessment and is able to answer all questions appropriately. Care providers, pharmacy, and demographics verified. Patient wishes to discharge home, denies need for home health at this time. Patient states he has no further needs or concerns at this time. CM to follow for discharge planning needs that may arise. PCP: Diego Dee Specialists: jasmin Cueto [place] Preferred Pharmacy: [facility] Insurance: [employer] Pres[place] Benef[place]: [place] Living Will/HPOA: yes, [facility]dez LNOK: Living Arrangements: Patient lives with in a single story home with 2 steps to enter the home. Transportation: self, DME/HHC: Patient has cane and cpap at home. No previous HHC Or SNF Disposition Plan: Patient to discharge home with family support and follow-up plans in place. Anu STEVEN, RN, CM
--- NOTE | 2023-03-18 11:29 | PN.CARD_ITS ---
Subjective Subjective Patient is still having symptoms of chest pain while resting in the chair seen and evaluated today in progressive care unit. Objective Data Vital Signs: Vital Signs Temp Pulse Resp BP Pulse Ox O2 Del Method 97.4 F L 75 16 123/69 H 95 Room Air 03/18/23 10:00 03/18/23 10:00 03/18/23 10:00 03/18/23 10:00 03/18/23 10:00 03/18/23 10:00 Oxygen Delivery Method Room Air Weight: 235 lb 14.314 oz Body Mass Index (BMI) 32.8 Intake & Output: Intake and Output for Last 24 Hours 03/16/23 03/17/23 03/18/23 23:59 23:59 23:59 Intake Total 600 / 1080 960 / 960 Balance 600 / 1080 960 / 960 Lab / Micro Data 03/18/23 06:28 03/18/23 06:28 Labs: Laboratory Results - last 24 hr 03/18/23 06:28: WBC 5.6, RBC 4.93, Hgb 14.5, Hct 42.2, MCV 85.6, MCH 29.4, MCHC 34.4, RDW Std Deviation 38.5, RDW Coeff of Gail 12.4, Plt Count 137 L, MPV 10.0, Immature Gran % (Auto) 0.400, Neut % (Auto) 66.2, Lymph % (Auto) 17.1 L, [place] % (Auto) 11.8 H, Eos % (Auto) 3.6, Baso % (Auto) 0.9, Absolute Neuts (auto) 3.7, Absolute Lymphs (auto) 0.95, Nucleated RBC % 0, PT 13.6, INR 1.0, Sodium 139, Potassium 3.6, Chloride 108 H, Carbon Dioxide 26.0, Anion Gap 5, BUN 29 H, Creatinine 0.97, Estim Creat Clear Calc 104.56, Est GFR (MDRD) Af Amer 103, Est GFR (MDRD) Non-Af 85, BUN/Creatinine Ratio 30.0 H, Glucose 158 H, Hemoglobin A1c 6.4 H, Calcium 8.5 Cardiology Labs/Tests 03/18/23 06:28: WBC 5.6, RBC 4.93, Hgb 14.5, Hct 42.2, MCV 85.6, MCH 29.4, MCHC 34.4, Plt Count 137 L, MPV 10.0, Immature Gran % (Auto) 0.400, Neut % (Auto) 66.2, Lymph % (Auto) 17.1 L, [place] % (Auto) 11.8 H, Eos % (Auto) 3.6, Baso % (Auto) 0.9, Absolute Neuts (auto) 3.7, Nucleated RBC % 0, PT 13.6, INR 1.0, Sodium 139, Potassium 3.6, Chloride 108 H, Carbon Dioxide 26.0, Anion Gap 5, BUN 29 H, Creatinine 0.97, Est GFR (MDRD) Af Amer 103, Est GFR (MDRD) Non-Af 85, BUN/Creatinine Ratio 30.0 H, Glucose 158 H, Hemoglobin A1c 6.4 H, Calcium 8.5 Rhythm: EKG: ECHO: Stress Test: Cardiac Cath: PCI: CT Surgery: Holter monitor: EPS: PPM: CXR: Chest CT Scan: Radiography Diagnostic Testing: Radiology Impression Echocardiogram 03/16/23 19:50 Interpretation Summary The estimated ejection fraction is 65 %. Mild concentric left ventricular hypertrophy. Structually normal valves. Compared to prior study, there is no significant change. Ordering Physician: Jake Franklin Referring Physician: [facility] Performed By: Liat Arrington RDCS, RVT Assessment & Plan Assessment/Plan (1) Chest pain: QUALIFIERS: Chest pain type: unspecified Qualified Code(s): R07.9 - Chest pain, unspecified (2) Unstable angina due to arteriosclerosis of autologous artery coronary artery bypass graft: PLAN: Plan 57-year-old patient who presented with symptoms of chest pain. Has a cardiac workup With echocardiogram showing LV function preserved Further evaluation with Lexiscan sestamibi showed no evidence of reversible myocardial ischemia with a normal myocardial perfusion study. However he continues to describe retrosternal chest pain with some radiation to the left shoulder into the jaw typical of angina Also had a significant family history of CAD his brother had a history of CAD with coronary artery stents Based on his clinical presentation recommended to evaluate with cardiac catheterization he does have a prior cardiac catheterization which showed known obstructive CAD with normal LV function. From cardiac standpoint he is already set up for cardiac cath on Monday.
[2023-03-18] MEDS: Senna/Docusate Sodium 1 Tablet 2 TABLET PO (13:01)
[2023-03-18 15:00] VITALS: BP 133/69; PULSE 70; RESP 16; TEMP 36.6; O2SAT 98
[2023-03-18 21:41] VITALS: BP 127/64; PULSE 61; RESP 16; TEMP 36.8; O2SAT 97
[2023-03-18] MEDS: clonazePAM 0.5 MG Tablet PO (21:42)
[2023-03-18] MEDS: Gabapentin 300 MG Capsule PO (21:42)
[2023-03-18] MEDS: MELATONIN 3 MG TABLET 9 MG PO (21:43)
[2023-03-18] MEDS: traZODone 100 MG Tablet 200 MG PO (21:45)
[2023-03-18] MEDS: Doxazosin 4 MG Tablet 8 MG PO (21:46)
[2023-03-18] MEDS: Polyethylene Glycol 3350 17 GM PACKET PO (21:47)
[2023-03-18] MEDS: Atorvastatin Calcium 40 MG Tablet PO (21:47)
[2023-03-19 03:30] VITALS: BP 133/74; PULSE 60; RESP 18; TEMP 37.2; O2SAT 98
[2023-03-19] MEDS: Morphine 2 MG/ML Syringe IV ×5 (04:17→22:26)
[2023-03-19] MEDS: 0.9% Saline Lock 10 ML Syringe IV (04:17)
[2023-03-19] MEDS: LEVODOPA 42 MG 84 MG INHALATION ×3 (06:05→15:07)
[2023-03-19] MEDS: Sucralfate 1 GM Tablet PO ×4 (06:06→22:10)
[2023-03-19 06:11] VITALS: BP 136/82; PULSE 60; RESP 16; TEMP 36.6; O2SAT 98
[2023-03-19 06:42] LABS: Absolute Lymphocyte Count 1.01 X10^3/uL (0.83-4.51); Absolute Neutrophil Count 2.8 X10^3/uL (2.0-7.7); Basophil# 0.02 X10^3/uL; Basophil% 0.4 % (0-1); Eosinophil# 0.19 X10^3/uL; Eosinophils% 4.1 % (0-5); Hematocrit 42.2 % (40-54); Hemoglobin 14.4 g/dL (13.0-16.5); Lymphocyte # 1.01 X10^3/ul (0.83-4.51); Lymphocyte % 21.8 % (19-41); Mean Corp Hgb Conc 34.1 g/dL (32-36); Mean Corpuscular Hgb 29.1 pg (27.0-32.0); Mean Corpuscular Volume 85.4 fL (80-94); Mean Platelet Vol. 10.3 fl (6.2-12.0); Monocyte# 0.57 X10^3/uL; Monocyte% 12.3 % (0-10); NRBC Flagged by Analyzer 0 % (0-5); Neutrophil # 2.83 X10^3/uL (2.7-7.7); Neutrophil % 61.2 % (47-70); Platelet Count 125 K/mm3 (150-450); RBC Distribution Width CV 12.2 % (11.6-14.6); RBC Distribution Width SD 37.7 fl (35.1-43.9); Red Blood Count 4.94 M/mm3 (4.6-6.2); White Blood Count 4.6 K/mm3 (4.4-11.0)
[2023-03-19 07:15] LABS: Anion Gap 4 (5-15); BUN 20 mg/dL (7-18); BUN/Creat Ratio 20.4 RATIO (10-20); Chloride 104 mmol/L (98-107); Creatinine, Serum 0.98 mg/dL (0.70-1.30); EST Glomerular Filtration Rate 84 mL/min (>60); Est Glom Filt Rate - Afr Amer 101 mL/min (>60); Estimated Creatinine Clearance 103.49 ml/min; Glucose 132 mg/dL (74-106); Potassium 3.4 mmol/L (3.5-5.1); Sodium Level 138 mmol/L (136-145)
--- NOTE | 2023-03-19 08:06 | PN.HOSP_ITS ---
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) with unsta ble angina pectoris (03/17/23) Chest pain, unspecified (03/17/23) Subjective Subjective Still gets the chest pain and shortness of breath but does feel like it is less intense than yesterday Objective Data Objective Data Vital Signs: Vital Signs Temp Pulse Resp BP Pulse Ox O2 Del Method 98 F 60 16 136/82 H 98 Room Air 03/19/23 06:11 03/19/23 06:11 03/19/23 06:11 03/19/23 06:11 03/19/23 06:11 03/19/23 06:11 Oxygen Delivery Method Room Air Weight: 107 kg Body Mass Index (BMI) 32.8 Intake & Output: Intake and Output for Last 24 Hours 03/17/23 03/18/23 03/19/23 23:59 23:59 23:59 Intake Total 600 / 1080 2060 / 2060 800 / 800 Balance 600 / 1080 2060 / 2060 800 / 800 Lab / Micro Data 03/19/23 05:51 03/19/23 05:51 Labs: Laboratory Results - last 24 hr 03/19/23 05:51: WBC 4.6, RBC 4.94, Hgb 14.4, Hct 42.2, MCV 85.4, MCH 29.1, MCHC 34.1, RDW Std Deviation 37.7, RDW Coeff of Gail 12.2, Plt Count 125 L, MPV 10.3, Immature Gran % (Auto) 0.200, Neut % (Auto) 61.2, Lymph % (Auto) 21.8, [place] % (Auto) 12.3 H, Eos % (Auto) 4.1, Baso % (Auto) 0.4, Absolute Neuts (auto) 2.8, Absolute Lymphs (auto) 1.01, Nucleated RBC % 0, Sodium 138, Potassium 3.4 L, Chloride 104, Carbon Dioxide 30.0, Anion Gap 4 L, BUN 20 H, Creatinine 0.98, Estim Creat Clear Calc 103.49, Est GFR (MDRD) Af Amer 101, Est GFR (MDRD) Non-Af 84, BUN/Creatinine Ratio 20.4 H, Glucose 132 H, Calcium 9.0 Physical Exam Narrative General: Alert, oriented, no apparent distress HEENT: Atraumatic, normocephalic Eyes: Anicteric, normal conjunctiva, extraocular movements grossly intact Neck: Supple Respiratory: Clear to auscultation bilaterally, normal respiratory effort Cardiovascular: Regular rate and rhythm GI: Soft, nontender, nondistended Extremities: No edema Musculoskeletal: Moving all extremities Neuro: No overt focal neurological deficits Skin: No rashes appreciated Psych: Cooperative Assessment & Plan Assessment/Plan (1) Chest pain: QUALIFIERS: Chest pain type: unspecified Qualified Code(s): R07.9 - Chest pain, unspecified PLAN: Plan 1. typical chest pain - Admit to CDU under observation status. Serialize troponin. Check d-dimer. Continue ECASA plus prn SL NTG. Check echocardiogram to evaluate LVEF. Check Lexiscan NST in the AM to evaluate for ischemia. -03/17: Patient has chest pain relieved with nitro, symptoms including shortness of breath that worsened with exertion and pain is substernal, continues to have pain, echo and stress test are pending however patient has smoking history and also has very strong history of coronary artery disease so even if these are negative would still like cardiology's input as stress could be false negative. Cardiology consult placed, patient on aspirin, Plavix, and statin -03/18: Given stress and echo are okay patient was offered outpatient evaluation however given his ongoing pain cardiac cath to be arranged for Monday -03/19: Heart cath tomorrow -03/19: Continues to have some pain, somewhat less intense than yesterday, n.p.o. at midnight for heart cath tomorrow 2. Severe GERD; with history of hiatal hernia on Protonix twice daily, Pepcid and Carafate complicating #1 likely due to at least in part to Pill Esophagitis with Polypharmacy as he is on 27 different routine medications chronically - Continue aggressive GERD regimen. Consider GI consultation as outpatient if car diac workup is negative and chest pain persists. -03/17: Continue PPI -03/19: Still may need outpatient GI eval, continuing PPI 3. History of chest pain; with left heart catheterization ~15 years ago which showed mild blockages but no flow-limiting ischemia treated with Cardizem - Noted. Continue Cardizem as previous. -03/17: See 1 4. Essential hypertension - Continue home regimen plus give prn IV Hydralazine for systolic blood pressure > 160 mm Hg. -03/19: Blood pressure 136/82 today 5. Hyperlipidemia - Resume statin and check lipid profile in light of #1. -03/17: Continue statin 6. Obesity; with BMI of 33.2 this admission plus obstructive sleep apnea; on CPAP - Weight loss will be recommended. Continue nocturnal CPAP. 7. Diabetes mellitus type 2; of unknown control - ADA diet. FSBS q. AC/HS plus SSI. Check HgbA1c to objectively assess quality of diabetic control. -03/17: Awaiting A1c -03/18: Patient found to be prediabetic with A1c of 6.4, encouraged lifestyle modification -03/19: Will need to follow-up with PCP on outpatient basis 8. History of TIA/CVA; on Plavix - Continue Plavix. -03/19: Patient on aspirin and Plavix 9. Parkinson's disease - Resume carbidopa and levodopa as previous. 10. Systemic lupus erythematosus - Stable. Moderate thrombocytopenia of 147 pr esent on admission. -03/18: Continue to monitor 11. History of colonic diverticulitis; s/p colectomy - Noted. 12. BPH - Continue Prazosin. 13. History of de Quervain's tenosynovitis (right) - Noted. 14. Depression with anxiety - Resume home medications as previous plus give prn Klonopin for breakthrough symptoms. 15. Osteoarthritis - Give Tylenol prn. 16. DVT prophylaxis - Lovenox 40 mg sq daily. Total time: Approximately 26 minutes. Charges/Coding Visit Charges Inpatient E&M: 35841 [facility] Hosp L1
[2023-03-19] MEDS: dilTIAZem 60 MG Tablet PO ×2 (08:44→22:10)
[2023-03-19] MEDS: Cholecalciferol (VIT D3) 25 MCG TABLET (1,000 UNITS) 50 MCG PO (08:44)
[2023-03-19] MEDS: Enoxaparin 40 MG/0.4 ML Syringe SC (08:45)
[2023-03-19] MEDS: Famotidine 20 MG Tablet PO ×2 (08:45→22:10)
[2023-03-19] MEDS: hydroCHLOROthiazide 12.5mg 12.5 MG PO (08:45)
[2023-03-19] MEDS: Pantoprazole Sodium 40 MG Tablet 80 MG PO ×2 (08:45→22:09)
[2023-03-19] MEDS: Aspirin E.C. 81 MG Tablet PO (08:45)
[2023-03-19] MEDS: Clopidogrel Bisulfate 75 MG Tablet PO (08:46)
[2023-03-19] MEDS: DULoxetine Hcl 60 MG Capsule PO (08:47)
[2023-03-19] MEDS: Omega-3 Acid Ethyl Esters 1 GM Capsule PO (08:47)
[2023-03-19] MEDS: CARBIDOPA/LEVODOPA 1 EACH CAPSULE.ER 3 EACH PO ×4 (08:48→22:27)
[2023-03-19] MEDS: Potassium Chloride Oral Tablet 20 MEQ 40 MEQ PO (08:52)
[2023-03-19 11:10] VITALS: BP 123/68; PULSE 68; RESP 16; TEMP 36.8; O2SAT 96
--- NOTE | 2023-03-19 13:19 | PN.CARD_ITS ---
Subjective Subjective Seen evaluated today at bedside sitting out in a chair Still had mild chest discomfort which is improving. Objective Data Vital Signs: Vital Signs Temp Pulse Resp BP Pulse Ox O2 Del Method 98.3 F 68 16 123/68 H 96 Room Air 03/19/23 11:10 03/19/23 11:10 03/19/23 11:10 03/19/23 11:10 03/19/23 11:10 03/19/23 11:10 Oxygen Delivery Method Room Air Weight: 235 lb 14.314 oz Body Mass Index (BMI) 32.8 Intake & Output: Intake and Output for Last 24 Hours 03/17/23 03/18/23 03/19/23 23:59 23:59 23:59 Intake Total 600 / 1080 2059 / 0 1150 / 1150 Balance 600 / 1080 2059 / 2059 1150 / 1150 Lab / Micro Data 03/19/23 05:51 03/19/23 05:51 Labs: Laboratory Results - last 24 hr 03/19/23 05:51: WBC 4.6, RBC 4.94, Hgb 14.4, Hct 42.2, MCV 85.4, MCH 29.1, MCHC 34.1, RDW Std Deviation 37.7, RDW Coeff of Gail 12.2, Plt Count 125 L, MPV 10.3, Immature Gran % (Auto) 0.200, Neut % (Auto) 61.2, Lymph % (Auto) 21.8, [place] % (Auto) 12.3 H, Eos % (Auto) 4.1, Baso % (Auto) 0.4, Absolute Neuts (auto) 2.8, Absolute Lymphs (auto) 1.01, Nucleated RBC % 0, Sodium 138, Potassium 3.4 L, Chloride 104, Carbon Dioxide 30.0, Anion Gap 4 L, BUN 20 H, Creatinine 0.98, Estim Creat Clear Calc 103.49, Est GFR (MDRD) Af Amer 101, Est GFR (MDRD) Non-Af 84, BUN/Creatinine Ratio 20.4 H, Glucose 132 H, Calcium 9.0 Cardiology Labs/Tests 03/19/23 05:51: WBC 4.6, RBC 4.94, Hgb 14.4, Hct 42.2, MCV 85.4, MCH 29.1, MCHC 34.1, Plt Count 125 L, MPV 10.3, Immature Gran % (Auto) 0.200, Neut % (Auto) 61.2, Lymph % (Auto) 21.8, [place] % (Auto) 12.3 H, Eos % (Auto) 4.1, Baso % (Auto) 0.4, Absolute Neuts (auto) 2.8, Nucleated RBC % 0, Sodium 138, Potassium 3.4 L, Chloride 104, Carbon Dioxide 30.0, Anion Gap 4 L, BUN 20 H, Creatinine 0.98, Est GFR (MDRD) Af Amer 101, Est GFR (MDRD) Non-Af 84, BUN/Creatinine Ratio 20.4 H, G lucose 132 H, Calcium 9.0 Rhythm: EKG: ECHO: Stress Test: Cardiac Cath: PCI: CT Surgery: Holter monitor: EPS: PPM: CXR: Chest CT Scan: Physical Exam Cardio Cardio Narrative: Cardiac examination S1-S2 regular Chest examination clear to auscultation bilateral Review of the cruise consultant showed normal sinus rhythm. Assessment & Plan Assessment/Plan (1) Chest pain: QUALIFIERS: Chest pain type: unspecified Qualified Code(s): R07.9 - Chest pain, unspecified (2) Unstable angina due to arteriosclerosis of autologous artery coronary artery bypass graft: PLAN: Plan 57-year-old patient who presented with symptoms of chest pain has evaluation by nuclear stress test and cardiac markers EKG and he continues to have symptoms of chest pain. Also patient has family history of CAD. Brother had coronary artery stents. Currently patient has been on aspirin Plavix as well as he is on statin. He has a history of GERD with a history of hiatal hernia and been on Protonix. Hype rtension Hyperlipidemia Diabetes mellitus Prior history of TIA CVA and has been on Plavix for that reason. And also had a history of depression and anxiety. Cardiac care plan recommendations; Based on his clinical presentation patient was concerned about CAD Will schedule him for cardiac catheterization due to significant family history and multiple risk factors. And possible stenosis could represent false negative. I discussed in detail the risk of cardiac catheterization benefits with the patient he elected to proceed and he is scheduled for cardiac cath on Monday. Patient remained comfortable no further episode of chest pain. Patient will be followed by the cardiac team
[2023-03-19 16:36] VITALS: BP 118/69; PULSE 64; RESP 16; TEMP 36.9; O2SAT 96
[2023-03-19 22:02] VITALS: BP 136/73; PULSE 66; RESP 16; TEMP 36.6; O2SAT 96
[2023-03-19] MEDS: MELATONIN 3 MG TABLET 9 MG PO (22:10)
[2023-03-19] MEDS: Atorvastatin Calcium 40 MG Tablet PO (22:10)
[2023-03-19] MEDS: traZODone 100 MG Tablet 200 MG PO (22:14)
[2023-03-19] MEDS: Polyethylene Glycol 3350 17 GM PACKET PO (22:15)
[2023-03-19] MEDS: clonazePAM 0.5 MG Tablet PO (22:24)
[2023-03-19] MEDS: Doxazosin 4 MG Tablet 8 MG PO (22:25)
[2023-03-19] MEDS: Gabapentin 300 MG Capsule PO (22:26)
[2023-03-20] VITALS (13 sets, daily range): BP systolic 104–126; BP diastolic 62–76; PULSE 54–68; RESP 13–18; TEMP 36.3–36.6; O2SAT 93–97
[2023-03-20 05:37] LABS: Absolute Lymphocyte Count 1.27 X10^3/uL (0.83-4.51); Basophil# 0.03 X10^3/uL; Basophil% 0.6 % (0-1); Eosinophil# 0.18 X10^3/uL; Eosinophils% 3.5 % (0-5); Hematocrit 41.2 % (40-54); Hemoglobin 14.1 g/dL (13.0-16.5); Lymphocyte # 1.27 X10^3/ul (0.83-4.51); Lymphocyte % 24.8 % (19-41); Mean Corp Hgb Conc 34.2 g/dL (32-36); Mean Corpuscular Volume 84.8 fL (80-94); Mean Platelet Vol. 9.7 fl (6.2-12.0); Monocyte# 0.62 X10^3/uL; Monocyte% 12.1 % (0-10); NRBC Flagged by Analyzer 0 % (0-5); Neutrophil # 3.01 X10^3/uL (2.7-7.7); Neutrophil % 58.8 % (47-70); Platelet Count 135 K/mm3 (150-450); RBC Distribution Width CV 12.3 % (11.6-14.6); RBC Distribution Width SD 37.8 fl (35.1-43.9); Red Blood Count 4.86 M/mm3 (4.6-6.2); White Blood Count 5.1 K/mm3 (4.4-11.0)
[2023-03-20] MEDS: Morphine 2 MG/ML Syringe IV (05:58)
[2023-03-20 06:09] LABS: Anion Gap 6 (5-15); BUN 19 mg/dL (7-18); BUN/Creat Ratio 19.7 RATIO (10-20); Calcium,Total 8.9 mg/dL (8.5-10.1); Chloride 105 mmol/L (98-107); Creatinine, Serum 0.96 mg/dL (0.70-1.30); EST Glomerular Filtration Rate 85 mL/min (>60); Est Glom Filt Rate - Afr Amer 103 mL/min (>60); Estimated Creatinine Clearance 105.65 ml/min; Glucose 144 mg/dL (74-106); Potassium 3.4 mmol/L (3.5-5.1); Sodium Level 139 mmol/L (136-145)
[2023-03-20] MEDS: LEVODOPA 42 MG 84 MG INHALATION ×2 (06:41→10:53)
[2023-03-20] MEDS: Sucralfate 1 GM Tablet PO ×2 (06:42→12:41)
[2023-03-20] MEDS: Aspirin E.C. 81 MG Tablet PO (06:42)
[2023-03-20] MEDS: dilTIAZem 60 MG Tablet PO (06:42)
[2023-03-20] MEDS: Clopidogrel Bisulfate 75 MG Tablet PO (06:42)
--- NOTE | 2023-03-20 11:11 | PN.HOSP_ITS ---
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) with unsta ble angina pectoris (03/17/23) Chest pain, unspecified (03/17/23) Subjective Subjective Patient is a 57-year-old gentleman admitted with recurrent chest pa Objective Data Objective Data Vital Signs: Vital Signs Temp Pulse Resp BP Pulse Ox O2 Del Method 97.5 F L 62 16 124/76 H 94 Room Air 03/20/23 09:30 03/20/23 09:30 03/20/23 09:30 03/20/23 09:30 03/20/23 09:30 03/20/23 09:30 Oxygen Delivery Method Room Air Weight: 107 kg Body Mass Index (BMI) 32.8 Intake & Output: Intake and Output for Last 24 Hours 03/18/23 03/19/23 03/20/23 23:59 23:59 23:59 Intake Total 2059 1600 / 1600 Balance 2059 1600 / 1600 Lab / Micro Data 03/20/23 05:00 03/20/23 05:00 Labs: Laboratory Results - last 24 hr 03/20/23 05:00: WBC 5.1, RBC 4.86, Hgb 14.1, Hct 41.2, MCV 84.8, MCH 29.0, MCHC 34.2, RDW Std Deviation 37.8, RDW Coeff of Gail 12.3, Plt Count 135 L, MPV 9.7, Immature Gran % (Auto) 0.200, Neut % (Auto) 58.8, Lymph % (Auto) 24.8, [place] % (Auto) 12.1 H, Eos % (Auto) 3.5, Baso % (Auto) 0.6, Absolute Neuts (auto) 3.0, Absolute Lymphs (auto) 1.27, Nucleated RBC % 0, Sodium 139, Potassium 3.4 L, Chloride 105, Carbon Dioxide 28.0, Anion Gap 6, BUN 19 H, Creatinine 0.96, Estim Creat Clear Calc 105.65, Est GFR (MDRD) Af Amer 103, Est GFR (MDRD) Non-Af 85, BUN/Creatinine Ratio 19.7, Glucose 144 H, Calcium 8.9 Physical Exam Narrative GENERAL: cooperative HEENT: Atraumatic; normocephalic EYES; Anicteric, Normal Conjunctiva NECK; supple, normal thyroid, RESPIRATORY: Diminished to auscultation CARDIOVASCULAR: Regular S1 S2, GI: soft, normoactive bowel sounds, : No Renal angle tenderness; EXTREMITIES: No edema, no clubbing, MUSCULOSKELETAL: no muscle wasting NEURO: Awake; no lateralizing signs. SKIN: No Rash PSYCH; Flat affect Skin Skin Narrative: Patient has no evidence of rash or abscess at this time. Assessment & Plan Assessment/Plan (1) Chest pain: QUALIFIERS: Chest pain type: unspecified Qualified Code(s): R07.9 - Chest pain, unspecified PLAN: Plan Patient is a 57-year-old gentleman admitted with recurrent chest pain 1. Chest pain ? Consistent with unstable angina. Consult placed to cardiology plan is for patient to undergo subsequent evaluation with left heart catheterization 2. Severe GERD ? With hiatal hernia patient is on Protonix continued 3. Hypertension - Blood pressure controlled, home medications continued with dose adjustment as needed 4. Previous history of TIA/CVA ? Patient is on Plavix 5. Diabetes mellitus type II -patient's oral hypoglycemics held. Placed on Accu-Cheks a.c. and at bedtime and covered with sliding scale insulin 6. Dyslipidemia -Patient is on statin therapy, continued at home dose 7. Obstructive sleep apnea ? On CPAP at night 8. Class I obesity with BMI of 33 ? Complicating care weight loss advised 9. Parkinson's disease ? Patient is on Rytary and Inbrija did continue home dose 10. Systemic lupus erythematosus - Stable. 11. History of colon diverticulitis ? Status post colectomy 12. BPH with lower urinary obstructive symptoms - Patient treated with prazosin 13. Mild thrombocytopenia - will continue with monitoring 14. Generalized osteoarthritis -pain meds as needed 15. DVT prophylaxis - On enoxaparin Time spent in the patient's overall evaluation,decision-making process, review of diagnostic data, adjustment of management, discussion with other providers, nursing nursing and ancillary staff involved in patient's care documentation, 35 Minutes Charges/Coding Visit Charges Inpatient E&M: 87504 Subs Hosp L2
--- NOTE | 2023-03-20 11:15 | NURSING ---
Report called to factory laborer MONICA Almonte.
--- NOTE | 2023-03-20 12:07 | PCM.PN.CARD ---
Subjective Subjective Patient seen and evaluated. Underwent cardiac catheterization today Objective Data Vital Signs: Vital Signs Temp Pulse Resp BP Pulse Ox O2 Del Method 97.5 F L 62 16 124/76 H 94 Room Air 03/20/23 09:30 03/20/23 09:30 03/20/23 09:30 03/20/23 09:30 03/20/23 09:30 03/20/23 09:30 Oxygen Delivery Method Room Air Weight: 235 lb 14.314 oz Body Mass Index (BMI) 32.8 Intake & Output: Intake and Output for Last 24 Hours 03/18/23 03/19/23 03/20/23 23:59 23:59 23:59 Intake Total 2059 1600 / 1600 Balance 2059 1600 / 1600 Lab / Micro Data 03/20/23 05:00 03/20/23 05:00 Labs: Laboratory Results - last 24 hr 03/20/23 05:00: WBC 5.1, RBC 4.86, Hgb 14.1, Hct 41.2, MCV 84.8, MCH 29.0, MCHC 34.2, RDW Std Deviation 37.8, RDW Coeff of Gail 12.3, Plt Count 135 L, MPV 9.7, Immature Gran % (Auto) 0.200, Neut % (Auto) 58.8, Lymph % (Auto) 24.8, [place] % (Auto) 12.1 H, Eos % (Auto) 3.5, Baso % (Auto) 0.6, Absolute Neuts (auto) 3.0, Absolute Lymphs (auto) 1.27, Nucleated RBC % 0, Sodium 139, Potassium 3.4 L, Chloride 105, Carbon Dioxide 28.0, Anion Gap 6, BUN 19 H, Creatinine 0.96, Estim Creat Clear Calc 105.65, Est GFR (MDRD) Af Amer 103, Est GFR (MDRD) Non-Af 85, BUN/Creatinine Ratio 19.7, Glucose 144 H, Calcium 8.9 Cardiology Labs/Tests 03/20/23 05:00: WBC 5.1, RBC 4.86, Hgb 14.1, Hct 41.2, MCV 84.8, MCH 29.0, MCHC 34.2, Plt Count 135 L, MPV 9.7, Immature Gran % (Auto) 0.200, Neut % (Auto) 58.8, Lymph % (Auto) 24.8, [place] % (Auto) 12.1 H, Eos % (Auto) 3.5, Baso % (Auto) 0.6, Absolute Neuts (auto) 3.0, Nucleated RBC % 0, Sodium 139, Potassium 3.4 L, Chloride 105, Carbon Dioxide 28.0, Anion Gap 6, BUN 19 H, Creatinine 0.96, Est GFR (MDRD) Af Amer 103, Est GFR (MDRD) Non-Af 85, BUN/Creatinine Ratio 19.7, Glucose 144 H, Calcium 8.9 Rhythm: EKG: ECHO: Stress Test: Cardiac Cath: PCI: CT Surgery: Holter monitor: EPS: PPM: CXR: Chest CT Scan: Physical Exam Const alert, oriented x3 and no apparent distress General Appearance: cooperative HEENT hearing grossly normal bilaterally Head and Scalp: atraumatic Eyes EOMs intact bilaterally Neck General: normal visual inspection Chest inspection of chest normal and palpation of chest normal Resp normal respiratory effort Auscultation: clear to auscultation bilaterally Cardio regular rate, regular rhythm, S1 normal heart sound and S2 normal heart sound Jugular Venous Distention: JVD GI normal to inspection, nondistended, normoactive bowel sounds Extremity normal capillary refill and no pedal edema Peripheral Pulses: Yes pulses 2+ throughout and femoral pulses present Skin no rashes or lesions noted Neuro oriented x3 and CN's II-XII intact bilaterally Psych Appearance: grossly normal and appropriate Assessment & Plan Assessment/Plan (1) Chest pain: QUALIFIERS: Chest pain type: unspecified Qualified Code(s): R07.9 - Chest pain, unspecified PLAN: Patient had complained of chest discomfort. Was evaluated by cardiology it was felt that cardiac catheterization was warranted. He underwent a cardiac catheterization today which demonstrated essentially normal coronary arteries. Normal left ventricular ejection fraction was also noted. The patient will be discharged for outpatient follow-up.
--- NOTE | 2023-03-20 12:20 | CL.D_ITS ---
Patient Name: KRISHAN BURNHAM Study Date: 03/20/2023 Performing: Jose Seth MD Ht: 71 inches 180.34 cm : 1965 Wt: 235.3 lbs 106.59 kg Age: 57 Gender: male BSA: 2.26 PROCEDURE(S) PERFORMED DC01-(43097)LHC/COR/LV CLINICAL PROFILE AND INDICATIONS Indications: Suspected CAD Heart Failure: None Stress/Imaging Stress/Image Study Performed: No CAD Presentations: Stable angina. CONCLUSIONS Normal coronary arteries Normal LV size, wall motion,and systolic function RECOMMENDATIONS Medical therapy DESCRIPTION OF PROCEDURE The patient arrived to the procedure lab. The risks and benefits of the procedure as well as a full description of our services here and current unavailability of surgical backup were fully explained to the patient and/or their significant other prior to the catheterization. The Timeout was completed, verifying the correct patient and procedure. The patient's procedural site was prepped and draped in the usual fashion. Local anesthetic was given subcutaneously to right radial region with Lidocaine 2%. Using a modified Seldinger technique, arterial access was obtained via the right radial artery, a 6Fr sheath was inserted. Left Coronary Artery selective angiography was performed in multiple views using a 5 Fr. 4.0 Paris catheter. Right Coronary Artery selective angiography was then performed in multiple views using a 5 Fr. 4.0 Paris catheter. Left Ventriculography was performed in WHEELER projection using a 5 Fr. Pigtail catheter. LV to AO pullback pressures were then recorded.The arterial sheath was pulled and a TR Band was applied for hemostasis-9cc air CORONARY ANGIOGRAPHY DOMINANCE: Right Dominant LEFT HEART ASSESSMENT Left Ventricular Ejection Fraction: by LV Gram 60 % Normal LV wall motion Normal Left Ventricular systolic function Normal Left Ventricular systolic function LEFT MAIN: Angiographically normal LEFT ANTERIOR DESCENDING ARTERY: Angiographically normal CIRCUMFLEX ARTERY: Angiographically normal RIGHT CORONARY ARTERY: Angiographically normal COMPLICATIONS No Complications PROCEDURE MEDICATIONS Versed 1 mg IV Fentanyl 50 mcg IV Oxygen: 2 L/min via nasal cannula Heparin given IA 03/20/2023 11:57:01 Verapamil 2.5mg, Ntg 100mcgs, 3000 units of Heparin given IA 03/20/2023 11:57:01 IV Bolus: .9 NaCl 250 ml total 03/20/2023 12:12:04 SUMMARY OF HEMODYNAMIC DATA Time AIR REST ECG 11:44:27 AO 104/64 (80) SA 11:58:52 LV 106/6, 9 12:03:45 LV 109/5, 9 12:03:53 LV 93/10, 11 12:04:27 LVp 94/9, 11 12:04:30 AOp 101/66 (83) 12:04:37 AIR REST 12:15:27 Signed By Jose Seth MD On 03/21/2023 10:06:29 Jose Seth MD
[2023-03-20] MEDS: DULoxetine Hcl 60 MG Capsule PO (12:41)
[2023-03-20] MEDS: Cholecalciferol (VIT D3) 25 MCG TABLET (1,000 UNITS) 50 MCG PO (12:41)
[2023-03-20] MEDS: hydroCHLOROthiazide 12.5mg 12.5 MG PO (12:41)
[2023-03-20] MEDS: Omega-3 Acid Ethyl Esters 1 GM Capsule PO (12:41)
[2023-03-20] MEDS: Pantoprazole Sodium 40 MG Tablet 80 MG PO (12:41)
[2023-03-20] MEDS: CARBIDOPA/LEVODOPA 1 EACH CAPSULE.ER 3 EACH PO (12:42)
[2023-03-20] MEDS: Famotidine 20 MG Tablet PO (12:42)
[2023-03-20] MEDS: Potassium Chloride Oral Tablet 20 MEQ 40 MEQ PO (13:12)
--- NOTE | 2023-03-20 14:17 | DS.PCM_ITS ---
Providers Date of Admission: 03/17/23 Date of Discharge: 03/20/23 Primary Care Physician: [facility] Consultations 03/17/23 14:09 Consult: Cardiology Routine Consulting Provider: Cristina Duncan Reason for Consult: Classic chest pain, strong family hx of CAD and premature CAD EMERGENT Consult: No MD Notified: Yes Date Notified: 03/17/23 Time Notified: 14:18 Method of Notification: Text Reason For Visit: CHEST PAIN Diagnosis Discharge Diagnosis (1) Chest pain: Status: Acute Code(s): R07.9 - Chest pain, unspecified Qualifiers: Chest pain type: unspecified Qualified Code(s): R07.9 - Chest pain, unspecified Plan Patient is a 57-year-old gentleman admitted with recurrent chest pain 1. Chest pain ? Patient was placed on a monitored bed [place] ruled out with serial cardiac enzymes consult placed to cardiology plan is for patient to undergo subsequent evaluation with left heart catheterization ? Patient left heart catheterization did not demonstrate any obstructive lesions. Patient was therefore discharged home with optimization of medical therapy 2. Severe GERD ? With hiatal hernia patient is on Protonix continued 3. Hypertension - Blood pressure controlled, home medications continued with dose adjustment as needed 4. Previous history of TIA/CVA ? Patient is on Plavix 5. Diabetes mellitus type II -patient's oral hypoglycemics held. Placed on Accu-Cheks a.c. and at bedtime and covered with sliding scale insulin 6. Dyslipidemia -Patient is on statin therapy, continued at home dose 7. Obstructive sleep apnea ? On CPAP at night 8. Class I obesity with BMI of 33 ? Complicating care weight loss advised 9. Parkinson's disease ? Patient is on Rytary and Inbrija did continue home dose 10. Systemic lupus erythematosus - Stable. 11. History of colon diverticulitis ? Status post colectomy 12. BPH with lower urinary obstructive symptoms - Patient treated with prazosin 13. Mild thrombocytopenia - will continue with monitoring 14. Generalized osteoarthritis -pain meds as needed 15. DVT prophylaxis - On enoxaparin Time spent in the patient's overall evaluation,decision-making process, review of diagnostic data, adjustment of management, discussion with other providers, nursing nursing and ancillary staff involved in patient's care documentation, 35 Minutes Medications at Discharge Home Medications melatonin 3 mg tablet 9 mg PO QHS SLEEP 05/12/19 trazodone 100 mg tablet 200 mg PO QHS SLEEP 05/12/19 famotidine 20 mg tablet 20 mg PO BID GERD 02/17/20 clonazepam 0.5 mg tablet 0.5 mg PO QHS SLEEP 02/16/21 levodopa 42 mg capsule with inhalation device (Inbrija) 84 mg inhalation 0700,1100,1500 PARKINSONS 02/16/21 propranolol 10 mg tablet 10 mg PO TID HYPERTENSION 02/16/21 carbidopa ER 36.25 mg-levodopa 145 mg capsule,extended release (Rytary) 4 cap PO 4X/DAY Parkinsons 11/30/21 cholecalciferol (vitamin D3) 50 mcg (2,000 unit) tablet 50 mcg PO DAILY SUPPLEMENT 11/30/21 diltiazem HCl 60 mg tablet 60 mg PO BID HYPERTENSION/AGINA 11/30/21 empagliflozin 25 mg tablet (Jardiance) 12.5 mg PO DAILY DIABETES 11/30/21 omega-3 fatty acids 1,000 mg PO DAILY SUPPLEMENT 11/30/21 pantoprazole 40 mg tablet,delayed release (Protonix) 80 mg PO BID GERD 11/30/21 polyethylene glycol 3350 17 gram oral powder packet 17 g PO QHS PRN CONSTIPATION 11/30/21 prazosin 5 mg capsule 10 mg PO QHS HYPERTENSION 11/30/21 rosuvastatin 20 mg tablet 20 mg PO QHS HIGH CHOLESTEROL 11/30/21 sucralfate 1 gram tablet (Carafate) 1 g PO Q6H STOMACH ULCERS #28 tabs 03/24/22 duloxetine 60 mg capsule,delayed release 120 mg PO DAILY DEPRESSION 03/29/22 aspirin 81 mg tablet,delayed release 81 mg PO DAILY HEART HEALTH #30 tabs 01/12/23 clopidogrel 75 mg tablet 75 mg PO DAILY BLOOD THINNER #21 tabs 01/12/23 clonazepam 0.5 mg tablet 0.5 mg PO DAILY PRN PANIC ATTACKS 03/16/23 diclofenac sodium 1 % topical gel 4 g topical BID PRN OSTEOARTHRITIS 03/16/23 gabapentin 300 mg capsule 300 mg PO QHS RESTLESS LEG SYNDROME 03/16/23 hydrochlorothiazide 12.5 mg tablet 12.5 mg PO QAM BLOOD PRESSURE 03/16/23 lidocaine 5 % topical patch 1 patch topical DAILY PRN SEVERE PAIN 03/16/23 sildenafil 100 mg tablet 100 mg PO DAILY PRN sexual activity 03/16/23 sodium chloride-aloe vera nasal gel ([place] Saline nasal gel) 1 applic intranasal DAILY NASAL DRYNESS 03/16/23 sucralfate 100 mg/mL oral suspension (Carafate) 1 g PO 4X/DAY ULCERS 03/16/23 Physical Exam Narrative GENERAL: cooperative HEENT: Atraumatic; normocephalic EYES; Anicteric, Normal Conjunctiva NECK; supple, normal thyroid, RESPIRATORY: Diminished to auscultation CARDIOVASCULAR: Regular S1 S2, GI: soft, normoactive bowel sounds, : No Renal angle tenderness; EXTREMITIES: No edema, no clubbing, MUSCULOSKELETAL: no muscle wasting NEURO: Awake; no lateralizing signs. SKIN: No Rash PSYCH; Flat affect Weight / BMI Weight Weight: 107 kg Body Mass Index (BMI) 32.8 ABG / Lab / Microbiology Data 03/20/23 05:00 03/20/23 05:00 Laboratory: Laboratory Results - last 24 hr 03/20/23 05:00: WBC 5.1, RBC 4.86, Hgb 14.1, Hct 41.2, MCV 84.8, MCH 29.0, MCHC 34.2, RDW Std Deviation 37.8, RDW Coeff of Gail 12.3, Plt Count 135 L, MPV 9.7, Immature Gran % (Auto) 0.200, Neut % (Auto) 58.8, Lymph % (Auto) 24.8, [place] % (Auto) 12.1 H, Eos % (Auto) 3.5, Baso % (Auto) 0.6, Absolute Neuts (auto) 3.0, Absolute Lymphs (auto) 1.27, Nucleated RBC % 0, Sodium 139, Potassium 3.4 L, Chloride 105, Carbon Dioxide 28.0, Anion Gap 6, BUN 19 H, Creatinine 0.96, Estim Creat Clear Calc 105.65, Est GFR (MDRD) Af Amer 103, Est GFR (MDRD) Non-Af 85, BUN/Creatinine Ratio 19.7, Glucose 144 H, Calcium 8.9 D/C Instructions Discharge Diet: Low fat / Low cholesterol Discharge Activity: Return to Normal Activity Call your doctor if you observe: Fever of 101 or Higher, Shortness of breath, Fainting spells and Chest pain Meaningful Use Info Meaningful Use Diagnoses (Choose all that apply): None applicable Discharge Plan Admission Admit Date/Time: 03/17/23 18:57 Attending Provider: Jake Cox Primary Care Provider: [facility] Consulting Providers: Jake Franklin; Cristina Duncan; Temi Katz Discharge Orders/Prescriptions Prescriptions: Continued Inbrija 42 mg capsule, w/inhalation device 84 mg inhalation 0700,1100,1500 clonazepam 0.5 mg tablet 0.5 mg PO QHS propranolol 10 mg tablet 10 mg PO TID duloxetine 60 mg capsule,delayed release(DR/EC) 120 mg PO DAILY melatonin 3 MG tablet 9 mg PO QHS trazodone 100 MG tablet 200 mg PO QHS famotidine 20 MG tablet 20 mg PO BID polyethylene glycol 3350 17 gram Powder In Packet 17 g PO QHS PRN (Reason: CONSTIPATION) prazosin 5 mg Capsule 10 mg PO QHS diltiazem HCl 60 mg Tablet 60 mg PO BID omega-3 fatty acids Capsule 1,000 mg PO DAILY rosuvastatin 20 mg Tablet 20 mg PO QHS cholecalciferol (vitamin D3) 50 mcg (2,000 unit) Tablet 50 mcg PO DAILY Jardiance 25 mg Tablet 12.5 mg PO DAILY Rytary 36.25-145 mg Capsule, Extended Release 4 cap PO 4X/DAY Rx Instructions: divide evenly over waking hours pantoprazole [Protonix] 40 mg tablet,delayed release (DR/EC) 80 mg PO BID sucralfate [Carafate] 1 gram tablet 1 g PO Q6H Qty: 28 0RF aspirin 81 mg tablet,delayed release (DR/EC) 81 mg PO DAILY Qty: 30 0RF clopidogrel 75 mg Tablet 75 mg PO DAILY Qty: 21 0RF clonazepam 0.5 mg tablet 0.5 mg PO DAILY PRN (Reason: PANIC ATTACKS) diclofenac sodium 1 % gel 4 g topical BID PRN (Reason: OSTEOARTHRITIS) gabapentin 300 mg capsule 300 mg PO QHS sildenafil 100 mg tablet 100 mg PO DAILY PRN (Reason: sexual activity) lidocaine 5 % Adhesive Patch,Medicated 1 patch topical DAILY PRN (Reason: SEVERE PAIN) Protocol: *Topical Application Instructions APPLICATION INSTRUCTIONS: right forearm. Rx Instructions: PATCH SHOULDNT BE LEFT ON SKIN FOR MORE THAN 12 HOURS hydrochlorothiazide 12.5 mg tablet 12.5 mg PO QAM Rx Instructions: take with food sucralfate [Carafate] 100 mg/mL suspension 1 g PO 4X/DAY [place] Saline Gel 1 applic intranasal DAILY Referrals / [facility]: [facility] - Within 2 Weeks Disposition Disposition (needs filled in before D/C Order can be placed): Home, Self Care Charges/Coding Visit Charges Inpatient E&M: 63322 Disch Hosp >30min
--- NOTE | 2023-03-20 15:02 | CASEMGMT ---
Patient has order for discharge. RN CM in to discuss needs at discharge. Patient denies needs or help at discharge. Patient had no further questions or concerns.
== END 2023-03-20 15:45 | disposition home or self-care (01) | DRG 287 ==
LOC: ED 18:30 → PCU 21:26
PROVIDERS: Internal Medicine; Admitting Provider Internal Medicine; Emergency Provider Student in an Organized Health Care Education/Training Program; Visit Provider Internal Medicine
DX: R07.9 Chest pain, unspecified (principal); N13.8 Other obstructive and reflux uropathy; M32.9 Systemic lupus erythematosus, unspecified; E11.9 Type 2 diabetes mellitus without complications; E78.5 Hyperlipidemia, unspecified; E66.9 Obesity, unspecified; G20.A1 Parkinson's disease without dyskinesia, without mention of fluctuations; I10 Essential (primary) hypertension; F32.A Depression, unspecified; K44.9 Diaphragmatic hernia without obstruction or gangrene; G47.33 Obstructive sleep apnea (adult) (pediatric); F41.9 Anxiety disorder, unspecified; M15.9 Polyosteoarthritis, unspecified; N40.1 Benign prostatic hyperplasia with lower urinary tract symptoms; N13.9 Obstructive and reflux uropathy, unspecified; Z79.82 Long term (current) use of aspirin; Z79.84 Long term (current) use of oral hypoglycemic drugs; Z79.02 Long term (current) use of antithrombotics/antiplatelets; Z87.891 Personal history of nicotine dependence; Z86.73 Personal history of transient ischemic attack (TIA), and cerebral infarction without residual deficits; Z90.49 Acquired absence of other specified parts of digestive tract; Z68.33 Body mass index [BMI] 33.0-33.9, adult
CPT/HCPCS: 36415; 71045; 78452; 80048; 80061; 83036; 83880; 84484; 85025; 85610; 93005; 93017; 93306; 93458; 99152; 99153; 99285; A9500; Q9967; A4216; C1769; C1894; J2405; J2785

== ENCOUNTER 2023-04-26 12:58 | Outpatient (CLI) | payer OTHER, MEDICARE, SELFPAY ==
--- OUTSIDE RECORDS SUMMARY | 2023-04-26 22:30 | XMS RPT_ITS | CCD ---
Author Name Unknown Address [address] [place] [address] Organization [facility] [place] Care Team Providers Care Manager School Name Role Phone Maki, Sohail L Unavailable [...] Unavailable Unavailable ADRIAN, VENKATAKRISHNAN Unavailable Unavail able [place] Unavailable Unavailable MAHFOOZ, MARLYN Unavailable Unavailable DAVID, [...] Primary Care Unavailable DALLIN DALLAS Admitting Unavailab ADLLIN Rob Attending Unavailab SOHAIL Anna Primary Care Unavailable Hannah, Thuy Unavailable Unavailable Hannah, Thuy D Unavailable Unavailable David, Mango B Unavailable Unavailable Unknown, Referring Provider Unavailable Unav ailable Hannah, Thuy D Unavailable Unavailable [place] Mango B Unavailable Unavailable Tavallaee, Panchito Unavailable Unavailable Sohail Gambino Primary Care Provider [phone] Nivia Cazares Unavailable Hannah, Thuy D Unavailable Unavailable Unavailable VINOD ACUÑA CNP Primary Care Physician Allergies Allergy Classification Reported Allergen(s) Allergy Type Date of Onset Reaction(s) Facility (2 sources) No Known Allergies; Translations: [No Known Allergies] Propensity to adverse reactions (disorder) 8 [facility] Medications Current Medications Medication Drug Class(es) Dates Sig (Normalized) Sig (Original) clonazePAM 0.5 mg oral tablet (3 sources) Benzodiazepine take 1 tablet by mouth three times daily as needed for anxiety clonazePAM (KLONOPIN) 0.5 MG tablet Take 0.5 mg by mouth 3 (three) times a day as needed for anxiety. 0 Active entacapone 200 mg oral tablet (3 sources) Ojeiequa-Q-Kotuugylqiw ferase Inhibitor take 1 tablet by mouth [...] [Coronary atherosclerosis of unspecified type of vessel, hughes or graft] Chronic Diabetes mellitus without complication [...] (Body Mass Index) 32.65 kg/m2 Panchito Shannon [place]-Annddrm-Fpzucru Work Phone: 08-12-2019 16:44-0400 Body Temperature 97.9 [degF] Panchito Shannon [facility] Work Phone: 08-12-2019 16:44-0400 Body weight 106.17 kg Panchito Shannon MP-UrologyGlassdoor Work Phone: 08-12-2019 16:44-0400 BP Diastolic 82 mm[Hg] Panchito Tavallaee BT-Hhclthn-Jdx land Work Phone: 08-12-2019 16:44-0400 BP Systolic 136 mm[Hg] Panchito Tavallaee SN-Qgvnblj-Qye land Work Phone: 08-12-2019 16:44-0400 BSA (Body Surface Area) 2.25 m2 Panchito Tavallaee BE-Ytnapsx-Opmpexg Work Phone: 08-12-2019 16:44-0400 Height 180.34 cm Panchito Tavallaee PC-Ofkzehn-Ntg land Work Phone: 08-12-2019 16:44-0400 Pulse (Heart Rate) 82 /min Panchito Tavallaee MP-[facility]- [place] Work Phone: 08-12-2019 16:44-0400 Pulse Oximetry 96 % Panchito Iliaallaee PX-Pdbmygo-Bgr land Work Phone: 08-12-2019 16:44-0400 Respiratory Rate 16 /min Panchito Tavallaee PF-Deuynyx-Gb hland Work Phone: 08-12-2019 11:26-0400 BMI (Body Mass Index) 33.05 kg/m2 Panchito Tavallaee VX-Tsuloor-Xdbxdee Work Phone: 08-12-2019 11:26-0400 Body weight 107.5 kg Panchito Iliaallaee VJ-Hpqpetm-Wyn land Work Phone: 08-12-2019 11:26-0400 BP Diastolic 62 mm[Hg] Panchito Tavallaee II-Iqzvkts-Eea land Work Phone: 08-12-2019 11:26-0400 BP Systolic 154 mm[Hg] Panchito Tavallaee AF-Shyxsmb-Ltp land Work Phone: 08-12-2019 11:26-0400 BSA (Body Surface Area) 2.27 m2 Panchito Tavallaee XF-Ocglyes-Hhcszuw Work Phone: 08-12-2019 11:26-0400 Height 180.34 cm Panchito Shannon AV-Oxluwcm-Vtc land Work Phone: 08-12-2019 11:26-0400 Pulse (Heart Rate) 115 /min Panchito Shannon -[facility] [place] Work Phone: 04-26-2019 12:10-0500 BMI (Body Mass Index) 35.98 kg/m2 Thuy Hannah [facility] Work Phone: 04-26-2019 12:10-0500 Body weight 117.03 kg Thuy Hannah [facility] Work Phone: 04-26-2019 12:10-0500 BP Diastolic 84 mm[Hg] Thuy Hannah [facility] Work Phone: 04-26-2019 12:10-0500 BP Systolic 136 mm[Hg] Thuy Hannah [facility] Work Phone: 04-26-2019 12:10-0500 BSA (Body Surface Area) 2.35 m2 Thuy Hannah [facility] Work Phone: 04-26-2019 12:10-0500 Height 180.34 cm Thuy Hannah [facility] Medicine Work Phone: 04-26-2019 12:10-0500 Pulse (Heart Rate) 76 /min Thuy Hannah [facility] Work Phone: 07-04-2018 11:50-0400 BP Diastolic 68 mm[Hg] Dallin Dallas [facility] 07-04-2018 11:50-0400 BP Systolic 102 mm[Hg] Dallin Dallas [facility] 07-04-2018 11:50-0400 Pulse (Heart Rate) 57 /min [facility] 11:50-0400 Pulse Oximetry 95 % [facility]-04-2018 09:50-0400 Respiratory Rate 18 /min [facility]-04-2018 07:26-0400 BMI (Body Mass Index) 33.91 kg/m2 Dallin Dallas [facility] 07-04-2018 07:26-0400 Height 182.9 cm Dallin Dallas [facility] 07-04-2018 07:26-0400 Weight 113.4 kg Dallin Dallas [facility] 07-04-2018 07:20-0400 Body Temperature 97.9 [degF] Dallin Dallas [facility] 02-01-2017 15:11-0500 BP Diastolic 77 mm[Hg] Nivia Cazares [facility] Work Phone: 02-01-2017 15:11-0500 BP Systolic 133 mm[Hg] Nivia Cazares [facility] Work Phone: 02-01-2017 15:11-0500 Pulse (Heart Rate) 66 /min Nivia Cazares [facility] Work Phone: 02-01-2017 15:09-0500 BMI (Body Mass Index) 35.55 kg/m2 Nivia Cazares [facility] Work Phone: 02-01-2017 15:09-0500 Height 180.3 cm Nivia Cazares [facility] Work Phone: 02-01-2017 15:09-0500 Respiratory Rate 16 /min Nivia Cazares [facility] Work Phone: 02-01-2017 15:09-0500 Weight 115.62 kg Nivia Cazares [facility] Work Phone: Encounters Encounter Date Encounter Type Care Provider Facility Start: 08-11-2022 End: 11-25-2022 Physical therapy management JAKE MCMAHON MD [facility] Start: 09-25-2020 Chart Update Thuy Hannah Work Phone: [facility] Work Phone: Start: 09-23-2020 Phys/qhp telephone evaluation 11-20 min Thuy Hannah Work Phone: [facility] Work Phone: Start: 09-10-2020 Office outpatient visit 15 minutes Thuy Hannah Work Phone: [facility] Work Phone: Start: 05-13-2020 End: 05-13-2020 Orders Only Mehnaz Price Work Phone: [facility] Start: 08-12-2019 Patient encounter procedure Panchito Tavallaee CJ-Uqszozv-Khtaqta Work Phone: Start: 07-30-2019 Patient encounter procedure Panchito Tavallaee VB-Nmmhyce-Mtxblgf Work Phone: Start: 07-08-2019 Patient encounter procedure Panchito Tavallaee PT-Eorpnox-Novoodt Work Phone: Start: 06-10-2019 Patient encounter procedure Panchito Tavallaee LJ-Zojtrye-Qisuqwb Work Phone: Start: 05-21-2019 Patient encounter procedure Thuy Hannah -[facility] Work Phone: Start: 04-26-2019 Patient encounter procedure Thuy Hannah [facility] Work Phone: Start: 08-14-2018 End: 08-17-2018 Patient encounter procedure [facility] Start: 07-04-2018 End: 07-04-2018 Patient encounter procedure DALLIN REYNOLDS [facility] Start: 07-04-2018 End: 07-04-2018 Patient encounter procedure Dallin Reynolds [facility] Work Phone: [facility] Start: 06-28-2018 End: 06-29-2018 Patient encounter procedure JASON Fanny [facility] Start: 02-10-2018 End: 02-10-2018 Emergency department patient visit Fernando Beaulieu Facility:[facility] Start: 12-29-2017 End: 01-01-2018 Patient encounter procedure [facility] Start: 12-09-2017 End: 12-09-2017 Emergency department patient visit [facility] Start: 09-21-2017 End: 09-21-2017 Patient encounter Gumaro Castillo Facility:[facility] yin miller [facility] Start: 07-27-2017 End: 07-28-2017 Patient encounter Laci Higgins Bains Facility:[facility] Start: 06-05-2017 End: 06-06-2017 Patient [facility] Start: 04-19-2017 End: 04-19-2017 Patient encounter MANGO ESPINAL Facility:[facility] Start: 04-17-2017 End: 04-18-2017 Evaluation and management of inpatient PROVIDER UNKNOWN Facility:[facility] Start: 04-13-2017 End: 04-13-2017 Patient encounter MANGO ESPINAL Facility:[facility] Start: 04-05-2017 Patient encounter eze Alejandra JaraXavi Sage Facility:[facility] Start: 03-17-2017 End: 03-18-2017 Patient encounter MANGO ESPINAL Facility:[facility] Start: 03-08-2017 End: 03-09-2017 Patient encounter MANGO ESPINAL Facility:[facility] Start: 02-01-2017 End: 02-01-2017 Ambulatory [facility] Ambulato ry Start: 02-01-2017 Office outpatient ne w 30 minutes [facility] Work Phone: [facility] Start: 01-30-[address] [facility] Ambulatory Start: 12-19-2016 End: 12-20-2016 Ambulatory DEFAULT PHYSICIAN Facility:[facility] Patient encounter procedure Thuy Hannah Work Phone: -[facility] Work Phone: Procedures Date [...] Start: 08-14-2018 Dup-scan xtr veins unilateral/limited study [facility] Start: 07-04-2018 Cardiac catheterization Dallin Rodolfo [place] Work Phone: Start: 06-28-2018 25 hydroxy includes fractions if performed [facility] Start: 06-28-2018 Assay of thyroid sti mulating hormone tsh [facility] Start: 06-28-2018 Blood typing serologic abo [facility] Start: 06-28-2018 Comprehensive metabo lic panel [facility] Start: 06-28-2018 Lipid panel [facility] Start: 12-29-2017 Myocardial spect mul tiple studies [facility] Start: 12-29-2017 Cv strs tst xers&/or rx cont ecg w/o i&r [facility] Start: 12-29-2017 Echo tthrc r-t 2d w/ wom-mode compl spec&colr d [facility] Start: 12-09-2017 Radiologic exam ches t single view [facility] Start: 12-09-2017 Ct head/brain w/o co ntrast material [facility] Start: 12-09-2017 Assay of free thyroxine [facility] Start: 12-09-2017 Assay of thyroid sti mulating hormone tsh [facility] Start: 12-09-2017 Blood count complete auto&auto difrntl wbc [facility] Start: 12-09-2017 Comprehensive metabo lic panel [facility] Start: 12-09-2017 D-DIMER, QUANTITATIVE [facility] Start: 12-09-2017 Prothrombin time [facility] Start: 12-09-2017 T3 free mass conc [facility] Start: 12-09-2017 Thromboplastin time partial plasma/whole blood [facility] Start: 12-09-2017 Troponin I.cardiac mass conc [facility] Start: 12-09-2017 EKG 12-LEAD [facility] Start: 04-18-2017 MEASUREMENT OF 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, 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 APPROACH MARLYN CARRILLO Start: 10-28-2016 Colonoscopy Thuy pennington Work Phone: Plan of Treatment Date Care Activity Detail Author Start: 11-20-2027 Tetanus vaccination [facility] Start: 06-08-2021 Patient encounter procedure MCRANNUAL, Provider: Thuy Hannah, Status: Pen, Time: 9:20 AM [facility] Work Phone: Start: 01-28-2020 Assay of prostate specific antigen total Prostate Specific Antigen [facility] Work Phone: Start: 01-28-2020 Assay of testosteron e total Testosterone, Level [facility] Work Phone: Start: 01-28-2020 Measurement of total hemoglobin concentration and hematocrit Hemoglobin + Hematocrit [facility] Work Phone: Start: 10-29-2019 Influenza vaccinatio n given Sequential Influenza Vaccine (#1) [facility] Start: 10-28-2018 Influenza vaccinatio n given SEQUENTIAL INFLUENZA VACCINE (Season Ended) [facility] Start: 04-05-2017 End: 04-05-2017 Ambulatory [facility] Start: 10-28-2016 Influenza vaccination SEQUENTI AL INFLUENZA VACCINE (#1) [facility] Work Phone: Start: 07-07-2015 Administration of he rpes zoster vaccine Zoster Vaccines (1 of 2) [facility] Start: 07-07-2015 Screening for malign ant neoplasm of colon [facility] Start: 07-07-1983 Hepatitis C antibody , confirmatory test Hepatitis C Screening [facility] Start: 1981 COVID-19 Vaccine (1 of 2) COVID-19 Vaccine (1 of 2) [facility] Start: 1980 HIV screening HIV Screening [facility] Start: 1977 Adolescent depressio n screening assessment Depression Screening (PHQ9) [facility] Start: 1968 History and physical examination, annual for health maintenance Wellness Visit [facility] Start: 1965 Prostate specific antigen measurement PSA Level [facility] Start: 1965 Screening colonoscopy COLONOSCOPY [facility] Work Phone: Start: 1965 Screening for malign ant neoplasm of colon Colorectal Cancer Screening: Colonoscopy [facility] Start: 1965 Tetanus vaccination TETANUS EVERY 10 YR [facility] Work Phone: Cardiac catheterization Cardiac Catheterization Routine 07/04/2018 9:24 AM EDT [facility] End: 04-04-2018 Ultrasound venous insufficiency right leg Ultrasound venous insufficiency right leg Routine Varicose veins of leg with pain, right 1 Occurrences starting 02/01/2017 until 04/04/2018 [facility] Work Phone: NEGATED: Highlighted row has been ruled out! Planned Goals not documented [facility]Huweeba-Jmjsaaz Work Phone: Immunizations Immunization Date Immunization Notes Care Provider Fa bradley 05-16-2020 Pfizer-BioNTech COVI D-19 Vacc 30 MCG/0.3ML Intramuscular Suspension Thuy D Hannah Work Phone: [facility] Work Phone: 04-25-2020 Pfizer-BioNTech COVI D-19 Vacc 30 MCG/0.3ML Intramuscular Suspension Thuy D Hannah Work Phone: [facility] Work Phone: 12-10-2019 Influenza, injectabl e, Madin [place] Canine Kidney, preservative free, quadrivalent Thuy Delgadokins Work Phone: [facility] Work Phone: 12-11-2018 influenza, injectabl e, quadrivalent, preservative free Thuy Delgadokins Work Phone: [facility] Work Phone: 11-27-2018 influenza, seasonal, injectable Thuy Delgadokins Work Phone: [facility] Work Phone: Payers Date Payer Category Payer Unknown 2017 Medicare 2017 Unknown [id number] 2015 Medicare [id number] 3 2013 Medicare MEDICARE MEDICAR E PART A & B xxxxxxxxxx 2013-Present [place] xxxxxxxxx[place] [id number] 2013 Medicare [id number] 2013 Medicare MEDICARE MEDICAR E PART A & B [id number] 2013-Present [place] [id number] 1965 Unknown [id number] 1965 Unknown [id number] 1965 Unknown [id number] 1965 Unknown [id number] 1965 Unknown [id number] 1965 Unknown [id number] 1965 Unknown [id number] 1965 Unknown [id number] 1965 Unknown [id number] Private Health Insurance [id number] Social History Date Type Detail Facility Start: 02-01-2017 Tobacco smoking stat [facility] Never smoker [facility] Work Phone: Sex Assigned At Not on file [facility] Work Phone: Start: 07-04-2018 End: 07-05-2018 Tobacco smoking status NHIS Former smoker [facility] End: 07-04-2005 History of tobacco use Current smoker [facility] Start: 07-04-2018 End: 07-05-2018 Cigarettes smoked current (pack per day) - Reported [facility] Start: 07-05-2018 Tobacco use and exposure Never used [facility] Start: 07-05-2018 Alcohol intake Current non-dr foot doctor of alcohol (finding) [facility] Tobacco smoking status No Smokin g Status Entered [facility] Sex Assigned At Male [facility] NEGATED: Highlighted row - - [facility] Work Phone: Medical Equipment Procedure Code Equipment Code Equipment Origin al Text Equipment Identifier Dates Closure 6fr Angioseal Vip - [id number] Start: 07-04-2018 Closure 6fr Angioseal Vip - [id number] Start: 07-04-2018 Functional Status Date Assessment [...] 56 Activity-Specific Balance Confidence Scale (ABC): 53% [facility] NEGATED: Highlighted row Functional performance Functional status health issues are not documented Disease [facility] Work Phone: Mental Status Date Assessment Result Facility NEGATED: Highlighted row Cognitive function [Interpretation] Cognitive status health issues are not documented Disease [facility] Work Phone: Chief complaint Narrative - [...] 04:00 PM , for a telehealth visit.VIRTUAL: [phone]. Cpap not working [facility] Work Phone: Evaluation + Plan note Note Date & Type Note Facility Evaluation + Plan note No data available for this section [facility] History of Present illness Narrative Note [...] TO HAVE A NEW MACHINE.PARKINSON'S- STABLEDIVERTICULOSIS- STABLE [facility] Work Phone: History of [...] G AND THEY HURT WHEN INJECTING MED [facility] Work Phone: Hospital Discharge instructions Note Date & Type Note Facility Hospital Discharge instructions No data available for this section [facility] Progress note Note Date & Type Note Facility Progress note No data available for this section [facility] Assessments Diagnosis Varicose veins of leg [...] Documents on File Type Date Recorded 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 * CARDIAC CATHETERIZATION: LEFT ([place]) documented in this encounter Chief Complaint * A telephone visit (audio only) between the patient (at the originating site) and the provider (at the distant site) was utilized to provide this telehealth service. * Verbal consent was requested and obtained from ARCENIO BURNHAM on this date, 09/23/2020 03:00 PM , fora telehealth visit. * VIRTUAL: [phone]. Congestion, PRADO, nausea. Additional Source Comments (unrecognized sect ion and content) No Status Records FoundNo Status Records FoundNo Status Records FoundNo Status Records FoundNo Status Records FoundNo Status Records FoundNo Status Records FoundNo Status Records FoundNo Status Records FoundNo Status Records Found INFORMATION SOURCE (unrecogn ized section and content) DATE CREATED AUTHOR AUTHOR'S ORGANIZ ATION 09/06/2017 [facility] DATE CREATED AUTHOR AUTHOR'S ORGANIZ ATION 12/15/2017 [facility] DATE CREATED AUTHOR AUTHOR'S ORGANIZ ATION 01/22/2018 [facility] DATE CREATED AUTHOR AUTHOR'S ORGANIZ ATION 02/16/2018 [facility] DATE CREATED AUTHOR AUTHOR'S ORGANIZ ATION 08/17/2018 [facility] DATE CREATED AUTHOR AUTHOR'S ORGANIZ ATION 10/05/2018 [facility] DATE CREATED AUTHOR AUTHOR'S ORGANIZ ATION 09/24/2020 [facility] DATE CREATED AUTHOR AUTHOR'S ORGANIZ ATION 09/26/2020 [facility] DATE CREATED AUTHOR AUTHOR'S ORGANIZ ATION 12/17/2022 [facility] Dallin [place] MD - 07/03/2018 4:17 PM EDT H&P Notes (unrecognized sect ion and content) Dallin [place] M.D. [facility] [place] [address] June 28, 2018 Steve Barrios MD [address] [place] [address] RE: Arcenio Burnham : [address] Barrios: CHIEF COMPLAINT: 1. Chest pain. 2. Hospitalization at [facility] on 06/25, for chest discomfort. HISTORY [...] 05/23/2013, was abnormal. [place] went to [place] and had a cardiac catheterization in [place] at [facility] and he was told that it was [...] did not resolve and therefore, went to [facility] and was admitted overnight. His troponins [...] Other Family Members: Positive. Father had an SC at 52. Smoking: Negative. Diabetes: Negative. MEDICATIONS: [...] Catheterization is 2000 and on 09/24/2013, at [facility] and told it was okay. . 6. He has had cholecystectomy. 7. Vasectomy. 8. Appendectomy. FAMILY HISTORY: Father had SC at age 52. Mother had heart disease. Two brothers, 55 and 49, are in good health. SOCIAL HISTORY: He is for the second time for 13 years, has a total of 6 children with 4 children at home; ages 17, 15, 14, and 5; 17-year-old girl is a senior, goes to [employer] for nursing, will graduate within the next month. He does not smoke or drink alcohol. 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 LABORATORY DATA: From [facility] on 06/26/2018. His white count was [...] exercise consistent with angina. 2. [address] [facility] on 06/25/2018, being discharged on 06/26 with negative troponins. 3. Abnormal Myoview stress test with inferolateral ischemia on 12/29/2017. 4. Normal LV function, EF of 60% by an echocardiogram on 12/29/2017. 5. Normal cardiac catheterization in 2000. 6. Catheterization at [facility] in 2013, where he was told everything was okay, although I do not have the actual report. 7. Hypertension, well controlled. 8. Hyperlipidemia, well controlled. 9. Parkinsonism since 2010, well controlled. 10. Strong family history of coronary artery disease with father having a SC at 52. PLAN: Proceed with cardiac catheterization on 07/04 in [place]. DISCUSSION: Mr. Burnham is on full medical therapy with nitrates and beta blockers. However, he continues to have chest pain and was recently hospitalized at [facility] for chest pain. His stress test [...] contact me. Sincerely, DALLIN DALLAS [id number] Doc#: [id number] documented in this encounter Quick Note - [...] content) Care Team Personnel Name: VINOD ACUÑA MACHINE SPRAYER Member Role: Primary Care Physician Address: Address: [address] [place] [phone] Care Team Related Persons Name: ELYSSA BURNHAM [...] BE BASED ON THE PRIMARY CLINICAL RECORDS. [email or web address] [facility]. provides no warranty or guarantee of the accuracy or completeness of information in this document.
== END 2023-04-26 23:59 | disposition home or self-care (01) ==
PROVIDERS: Visit Provider Physician Assistant
DX: R05.1 Acute cough (principal)
CPT/HCPCS: 87631

== ENCOUNTER 2023-07-30 16:55 | Inpatient (IN) | payer OTHER, SELFPAY ==
[2023-07-30] VITALS (26 sets, daily range): BP systolic 107–176; BP diastolic 58–98; PULSE 55–105; RESP 10–19; TEMP 36.7–36.8; O2SAT 93–97; BMI 27.1; BMI 30.7
--- NOTE | 2023-07-30 16:56 | CT_ITS ---
We are attempting to reach an attending provider to discuss findings. An addendum with communication details will be sent when the communication is complete. STUDY: CT BRAIN WITHOUT CONTRAST REASON FOR EXAM: Male, 58 years old. Neuro deficit, acute, stroke suspected RADIATION DOSAGE (If Supplied By Facility): CTDIvol = ( ) mGy, DLP = ( 846.73 ) mGycm TECHNIQUE: Transaxial CT imaging of the brain was performed without administration of intravenous contrast material. Individualized dose optimization techniques were used for this CT. The protocol utilizes one or more of the following dose reduction techniques: automated exposure control, adjustment of mA and/or kV according to patient size,and/or use of iterative reconstruction technique. COMPARISON: MR brain January 11, 2023. CT and CTA brain January 10, 2023. FINDINGS: Normal soft tissue structures. Normal calvarium. Normal size ventricles and extra-axial spaces for the patient''s age. Normal white matter tracts of the cerebral hemispheres. Normal basal ganglia and thalami. Normal brainstem. Normal cerebellum. There is no intracranial hemorrhage. There are no findings of an acute ischemic infarction. Opacification of maxillary sinuses bilaterally. CT/STROKE Brain/Head without Cont IMPRESSION: Bilateral maxillary sinusitis otherwise no acute intracranial disease. Electronically Signed: Jason Villeda MD at 17:13 EDT ,
--- NOTE | 2023-07-30 16:56 | EKG12_ITS ---
Test Reason : NEURO Blood Pressure : / mmHG Vent. Rate : 079 BPM Atrial Rate : 079 BPM P-R Int : 190 ms QRS Dur : 082 ms QT Int : 370 ms P-R-T Axes : 032 -26 020 degrees QTc Int : 424 ms Normal sinus rhythm with sinus arrhythmia Minimal voltage criteria for LVH, may be normal variant ( R in aVL ) Borderline ECG Confirmed by STEVE HAHN MD ([id number]), video effects editor BRET ARCOS ([id number]) on 08/01/2023 2:04:48 PM Referred By: Confirmed By:STEVE HAHN MD
--- NOTE | 2023-07-30 16:57 | CT_ITS ---
STUDY: CTA HEAD AND NECK WITH CONTRAST REASON FOR EXAM: Male, 58 years old. Neuro deficit, acute, stroke suspected RADIATION DOSAGE (If Supplied By Facility): CTDIvol = ( 25.94 ) mGy, DLP = ( 755.74 ) mGycm TECHNIQUE: CT angiography was performed with a multi-detector CT scanner. Data acquisition was obtained from the skull base through the vertex following intravenous administration of IV 100mL [id number]-370. MIP images were reconstructed from the axial data set. Post-processing of the angiographic images was performed, with multiplanar reformation and 3D reconstruction. Individualized dose optimization techniques were used for this CT. The protocol utilizes one or more of the following dose reduction techniques: automated exposure control, adjustment of mA and/or kV according to patient size,and/or use of iterative reconstruction technique. COMPARISON: Noncontrast CT head from today. CTA head and neck report only without images November 30, 2021. FINDINGS: Normal bilateral petrous carotid arteries. Normal right cavernous carotid artery with a normal supraclinoid bifurcation. Normal left cavernous carotid artery with a normal supraclinoid bifurcation. Normal right A1 segments of the anterior cerebral artery. Normal left A1 segments of the anterior cerebral artery. There is non-visualization of the anterior communicating artery (ACOM). Normal bilateral A2 segments of the anterior cerebral arteries. Normal right M1 and M2 segments of the middle cerebral arteries, with a normal M1 bifurcation. Normal left M1 and M2 segments of the middle cerebral arteries, with a normal M1 bifurcation. There is non-visualization of the right posterior communicating artery (PCOM). There is non-visualization of the left posterior communicating artery (PCOM). Normal bilateral vertebral arteries. Normal basilar artery with a normal basilar bifurcation. The visualized bilateral superior cerebellar (SCA) arteries are normal. Normal bilateral P1, P2 and visualized P3 segments of the posterior cerebral arteries. There is no demonstrated aneurysm of the lummi of Chakraborty. There is no demonstrated abnormality of the visualized brain. AORTIC ARCH: Normal visualized aortic arch. Normal origins of the brachiocephalic, left common carotid, and left subclavian arteries. RIGHT CAROTID ARTERIES: Normal right common carotid artery (CCA). Normal right common carotid bulb. Normal origin of the right internal carotid (ICA) artery without a hemodynamically significant stenosis. Normal visualized cervical portion of the right internal carotid artery. Normal origin of the right external carotid artery (ECA). LEFT CAROTID ARTERIES: Normal left common carotid artery (CCA). Normal left common carotid bulb. Normal origin of the left internal carotid (ICA) artery without a hemodynamically significant stenosis. Normal visualized cervical portion of the left internal carotid artery. Normal origin of the left external carotid artery (ECA). VERTEBRAL ARTERIES: Normal bilateral vertebral arteries. Opacification of the maxillary sinuses bilaterally. CT/STROKE CTA Head AND Neck W/Con IMPRESSION: Bilateral maxillary sinusitis otherwise Normal CTA Head and neck with contrast. N.B. : The above Results were Read Back by Jason Villeda MD to Lupe Shin MD, and understanding confirmed on 07/30/2023 18:11:00 (ET). Electronically Signed: Jason Villeda MD at 18:12 EDT ,
[2023-07-30 17:09] LABS: Absolute Lymphocyte Count 1.59 X10^3/uL (0.83-4.51); Absolute Neutrophil Count 4.3 X10^3/uL (2.0-7.7); Basophil# 0.03 X10^3/uL; Basophil% 0.4 % (0-1); Eosinophil# 0.15 X10^3/uL; Eosinophils% 2.2 % (0-5); Hematocrit 45.7 % (40-54); Hemoglobin 15.5 g/dL (13.0-16.5); Lymphocyte # 1.59 X10^3/ul (0.83-4.51); Lymphocyte % 23.7 % (19-41); Mean Corp Hgb Conc 33.9 g/dL (32-36); Mean Corpuscular Hgb 29.8 pg (27.0-32.0); Mean Corpuscular Volume 87.9 fL (80-94); Mean Platelet Vol. 9.7 fl (6.2-12.0); Monocyte# 0.66 X10^3/uL; Monocyte% 9.8 % (0-10); NRBC Flagged by Analyzer 0 % (0-5); Neutrophil # 4.26 X10^3/uL (2.7-7.7); Neutrophil % 63.6 % (47-70); Platelet Count 161 K/mm3 (150-450); RBC Distribution Width CV 12.5 % (11.6-14.6); RBC Distribution Width SD 39.6 fl (35.1-43.9); White Blood Count 6.7 K/mm3 (4.4-11.0)
[2023-07-30 17:17] LABS: Prothrombin Time (Protime)PT. 12.8 SECONDS (11.7-14.9)
[2023-07-30 17:18] LABS: Partial Thromboplast Time 25.7 Seconds (24.1-36.2)
--- NOTE | 2023-07-30 17:21 | EDS_ITS ---
HPI History of Present Illness Chief Complaint: Stroke Alert Informant: patient and spouse/S.O. Onset/Context/Timing Onset: Today Context: Sudden Onset Narrative Narrative: Patient presents via EMS as a stroke alert. Patient does have a history of Parkinson's as well as 3 prior ischemic strokes. He is currently on Plavix but no other form of anticoagulation. states that they were at the store around 4:00 and he states that he felt weak and needed to go to the car to sit down. They got home and he was able to get into the house. She took the dog out and when she came back and at 415 he was very slow to answer questions with difficulty with speech as well as right-sided weakness. Patient was met at the EMS entrance and quickly examined. He was sent immediately to CT. I did review his prior records. His most recent stroke was in December of last year with similar symptoms. He did receive TNK at that time. [facility] Medical History Acute stroke due to ischemia Lupus Wears glasses Diabetes History of hiatal hernia CPAP (continuous positive airway pressure) dependence Acute cerebrovascular accident (CVA) due to ischemia Type 2 diabetes mellitus COVID-19 vaccine series completed Borderline type 2 diabetes mellitus Former smoker Hypertension Hyperlipidemia HLD (hyperlipidemia) HTN (hypertension) Parkinsons disease Chest pain GERD (gastroesophageal reflux disease) Constipation Sleep apnea Depression with anxiety Abdominal pain Diverticulitis Home Medications ?Medication ?Instructions ?Recorded ?Last Taken ?Type melatonin 3 mg tablet 9 mg PO QHS SLEEP 05/12/19 03/15/23 History trazodone 100 mg tablet 200 mg PO QHS SLEEP 05/12/19 03/16/23 History famotidine 20 mg tablet 20 mg PO BID GERD 02/17/20 03/16/23 History levodopa 42 mg capsule with 84 mg inhalation 0700,1100,1500 02/16/21 03/16/23 History inhalation device (Inbrija) PARKINSONS propranolol 10 mg tablet 10 mg PO BID HYPERTENSION 02/16/21 03/16/23 History carbidopa ER 36.25 mg-levodopa 145 4 cap PO 4X/DAY Parkinsons 11/30/21 03/16/23 History mg capsule,extended release (Rytary) cholecalciferol (vitamin D3) 50 50 mcg PO DAILY SUPPLEMENT 11/30/21 03/16/23 History mcg (2,000 unit) tablet diltiazem HCl 60 mg tablet 60 mg PO BID HYPERTENSION/AGINA 11/30/21 03/16/23 History empagliflozin 25 mg tablet 12.5 mg PO DAILY DIABETES 11/30/21 03/16/23 History (Jardiance) omega-3 fatty acids 1,000 mg PO DAILY SUPPLEMENT 11/30/21 03/16/23 History prazosin 5 mg capsule 10 mg PO QHS HYPERTENSION 11/30/21 03/15/23 History rosuvastatin 20 mg tablet 20 mg PO QHS HIGH CHOLESTEROL 11/30/21 03/16/23 History duloxetine 60 mg capsule,delayed 120 mg PO DAILY DEPRESSION 03/29/22 03/16/23 History release clopidogrel 75 mg tablet 75 mg PO DAILY BLOOD THINNER #21 01/12/23 03/16/23 Rx tabs clonazepam 0.5 mg tablet 0.5 mg PO QHS PANIC ATTACKS 03/16/23 03/14/23 History diclofenac sodium 1 % topical gel 4 g topical BID PRN OSTEOARTHRITIS 03/16/23 Unknown History gabapentin 300 mg capsule 300 mg PO QHS RESTLESS LEG SYNDROME 03/16/23 03/15/23 History lidocaine 5 % topical patch 1 patch topical DAILY PRN SEVERE 03/16/23 Unknown History PAIN sildenafil 100 mg tablet 100 mg PO DAILY PRN sexual activity 03/16/23 Unknown History icosapent ethyl 1 gram capsule 2 g PO BID 07/30/23 Unknown History testosterone cypionate 200 mg/mL 200 mg IM .[id number] 07/30/23 Unknown History intramuscular oil (Depo-Testosterone) Allergy/AdvReac Type Severity Reaction Status Date / Time No Known Allergies Allergy Verified 07/30/23 17:20 Family History Mother Heart disease Hypertension High cholesterol Cancer skin cancer Father Heart disease High cholesterol Hypertension CVA (cerebral vascular accident) Surgical History S/P arthroscopic surgery of left knee History of colectomy (~02/2020) History of laparoscopic cholecystectomy History of appendectomy Social History household members: spouse number of children: 5 current occupational status: unemployed Smoking Status: Former smoker how long ago did patient quit smoking: Quit ~ 15 years prior, smoked socially only. alcohol intake: never substance use type: does not use ROS ROS ED Constitutional Constitutional ED: Denies fever(s) ENT ENT ED: Denies rhinorrhea or sore throat Cardiovascular Cardiovascular: Denies chest pain Respiratory/Chest Respiratory/Chest: Denies cough or dyspnea Gastrointestinal Gastrointestinal: Denies abdominal pain, diarrhea or vomiting Musculoskeletal Musculoskeletal: Denies back pain Neurologic Neurologic: Reports headache(s), paresthesias and weakness EXAM Physical Exam Const Vital Signs: 07/30/23 16:55 07/30/23 17:04 07/30/23 17:06 Temperature 98.1 F Temperature Source Temporal Pulse Rate 105 H 87 87 Respiratory Rate 18 16 16 Blood Pressure 160/80 H 176/79 H 176/79 H Blood Pressure Mean 106 111 111 Blood Pressure Source Blood Pressure Position Blood Pressure Location Pulse Ox 96 94 94 Oxygen Delivery Method Room Air Room Air Room Air 07/30/23 17:11 07/30/23 17:19 07/30/23 17:31 Temperature Temperature Source Pulse Rate 82 Respiratory Rate 13 Blood Pressure 157/83 H 157/83 H Blood Pressure Mean 107 Blood Pressure Source Monitor Blood Pressure Position Semi-Fowlers Blood Pressure Location Left Arm Pulse Ox 95 Oxygen Delivery Method Nasal Cannula Room Air 07/30/23 17:34 07/30/23 17:48 07/30/23 17:49 Temperature 98.1 F Temperature Source Pulse Rate 78 83 76 Respiratory Rate 12 14 18 Blood Pressure 143/74 H 151/98 H 155/88 H Blood Pressure Mean 97 115 110 Blood Pressure Source Monitor Monitor Blood Pressure Position Semi-Fowlers Semi-Fowlers Blood Pressure Location Left Arm Left Arm Pulse Ox 96 94 96 Oxygen Delivery Method Room Air Room Air 07/30/23 18:04 07/30/23 18:19 Temperature Temperature Source Pulse Rate 78 82 Respiratory Rate 10 L 19 H Blood Pressure 140/81 H 130/74 H Blood Pressure Mean 100 92 Blood Pressure Source Monitor Monitor Blood Pressure Position Semi-Fowlers Semi-Fowlers Blood Pressure Location Left Arm Left Arm Pulse Ox 94 94 Oxygen Delivery Method Room Air Room Air Positive well nourished and well developed General Appearance ED: well developed HEENT Reports moist mucous membranes Eyes EOMs intact bilaterally Chest Wall inspection of chest normal and palpation of chest normal Resp normal respiratory effort and clear to auscultation bilaterally Cardio Rate: regular rate Rhythm: regular rhythm GI soft to palpation and non-tender Extremity normal to inspection Neuro Neuro Narrative: See NIH stroke score NIHSS NIHSS Initial: 1a Level of Consciousness: 0 1b LOC Questions (Score 2 if aphasic/stupor): 0 1c LOC Commands (Only score 1st attempt): 0 2 Best Gaze (If aphasic, use reflexive mvmts.): 0 3 Visual: 0 4 Facial Palsy: 1 5 Motor Arm Right (UN = amputation/fusion): 3 5 Motor Arm Left: 0 6 Motor Leg Right: 3 6 Motor Leg Left: 0 8 Sensory (Aphasia/stupor=0 or 1, coma=2): 1 9 Best Language: 1 10 Dysarthria (mute, coma=2, intubated=UN): 0 11 Extinction and Inattention (only scored if +): 0 Total Score: 9 MDM MDM MDM Narrative Medical decision making narrative: Patient examined in the room again upon return from CT. Stroke workup has been initiated. I spoke with the stroke neurologist from [facility]. After his exam and discussion with family, he does feel patient is a good candidate for TNK. This has been ordered. History & Record Review Discussion w/independent historian: Patient and Significant other Additional record(s) reviewed:: Prior inpatient record, Prior ED visit and Prior labs Lab Data Attestation: I reviewed the patient's lab results. Labs: Laboratory Results - last 24 hr 07/30/23 16:50 WBC 6.7 RBC 5.20 Hgb 15.5 Hct 45.7 MCV 87.9 MCH 29.8 MCHC 33.9 RDW Std Deviation 39.6 RDW Coeff of Gail 12.5 Plt Count 161 MPV 9.7 Immature Gran % (Auto) 0.300 Neut % (Auto) 63.6 Lymph % (Auto) 23.7 Bledsoe % (Auto) 9.8 Eos % (Auto) 2.2 Baso % (Auto) 0.4 Absolute Neuts (auto) 4.3 Absolute Lymphs (auto) 1.59 Nucleated RBC % 0 PT 12.8 INR 1.0 APTT 25.7 Sodium 137 Potassium 3.6 Chloride 105 Carbon Dioxide 27.0 Anion Gap 5 BUN 14 Creatinine 1.27 Estim Creat Clear Calc 67.53 Est GFR (MDRD) Af Amer 75 Est GFR (MDRD) Non-Af 62 BUN/Creatinine Ratio 11.0 Glucose 215 H Calcium 9.0 Troponin I High Sens 7 Radiography Chest X-Ray - ED: 1 View, Read by ED Physician, Chronic Changes and No Infiltrates Diagnostic Testing: Clinical Impression(s) from Imaging Studies Brain CT 07/30/23 16:56 IMPRESSION: Bilateral maxillary sinusitis otherwise no acute intracranial disease. Electronically Signed: Jasno Villeda MD at 17:13 EDT Reading Location ID and State: [address] [place] [address] Tel , Service support , ADDENDUM: 07/30/23 1722 IMPRESSION: Bilateral maxillary sinusitis otherwise no acute intracranial disease. N.B. : The above Results were Read Back by Jason Villeda MD to Lupe Shin MD, and understanding confirmed on 07/30/2023 17:15:54 (ET). Electronically Signed: Jason Villeda MD at 17:13 EDT Reading Location ID and State: [place] / [place] Tel , Service support , ADDENDUM: 07/30/23 1753 IMPRESSION: Bilateral maxillary sinusitis otherwise no acute intracranial disease. N.B. : The above Results were Read Back by Jason Villeda MD to Lupe Shin MD, and understanding confirmed on 07/30/2023 17:16:20 (ET). Electronically Signed: Jason Villeda MD at 17:13 EDT , Head/Neck CTA 07/30/23 16:57 IMPRESSION: Bilateral maxillary sinusitis otherwise Normal CTA Head and neck with contrast. N.B. : The above Results were Read Back by Jason Villeda MD to Lupe Shin MD, and understanding confirmed on 07/30/2023 18:11:00 (ET). Electronically Signed: Jason Villeda MD at 18:12 EDT , ADDENDUM: 07/30/23 1819 IMPRESSION: Bilateral maxillary sinusitis otherwise Normal CTA Head and neck with contrast. N.B. : The above Results were Read Back by Jason Villeda MD to Lupe Shin MD, and understanding confirmed on 07/30/2023 18:11:00 (ET). Electronically Signed: Jason Villeda MD at 18:12 EDT , EKG Initial EKG: Attestation: I personally reviewed and interpreted this EKG as follows: Interpretation: Sinus Rhythm (Sinus at 79 with no acute ischemia.) Treatment and Re-Evaluation Narrative: CBC was normal white count 6.7 the hemoglobin of 15.5. Differential unremarkable. Coags unremarkable. Chemistry studies significant only for glucose of 215. Initial troponin is negative at 7. Portable chest x-ray per my interpretation reveals chronic changes with no focal findings. EKG is sinus rhythm at 79 with no acute ischemia. CT scan of the head reveals mild bilateral maxillary sinus disease, otherwise no acute findings. CTA of the head and neck reveals no evidence of LVO. Patient is complaining of a posterior headache. He did swallow bedside swallow test and was given liquid Tylenol as report this to be easier for him to swallow than pills. On repeat exam at this time he states his headache is slightly improved. Facial droop is improving. Patient can lift his elbow off of the bed at this time which is an improvement. He is able to extend his knee and lift his heel off the bed but cannot quite lift from the hip at this time. I will speak with hospitalist regarding admission. Discharge Plan Triage Chief Complaint: Stroke Alert ED Provider: Lupe Shin Dx/Rx/DC Orders Clinical Impression: Acute CVA (cerebrovascular accident), Hx of Parkinson's disease Prescriptions: No Action Inbrija 42 mg capsule, w/inhalation device 84 mg inhalation 0700,1100,1500 propranolol 10 mg tablet 10 mg PO BID duloxetine 60 mg capsule,delayed release(DR/EC) 120 mg PO DAILY melatonin 3 MG tablet 9 mg PO QHS trazodone 100 MG tablet 200 mg PO QHS famotidine 20 MG tablet 20 mg PO BID prazosin 5 mg Capsule 10 mg PO QHS diltiazem HCl 60 mg Tablet 60 mg PO BID omega-3 fatty acids Capsule 1,000 mg PO DAILY rosuvastatin 20 mg Tablet 20 mg PO QHS cholecalciferol (vitamin D3) 50 mcg (2,000 unit) Tablet 50 mcg PO DAILY Jardiance 25 mg Tablet 12.5 mg PO DAILY Rytary 36.25-145 mg Capsule, Extended Release 4 cap PO 4X/DAY Rx Instructions: takes at 7am,11am,3pm,7pm clopidogrel 75 mg Tablet 75 mg PO DAILY Qty: 21 0RF clonazepam 0.5 mg tablet 0.5 mg PO QHS diclofenac sodium 1 % gel 4 g topical BID PRN (Reason: OSTEOARTHRITIS) gabapentin 300 mg capsule 300 mg PO QHS sildenafil 100 mg tablet 100 mg PO DAILY PRN (Reason: sexual activity) lidocaine 5 % Adhesive Patch,Medicated 1 patch topical DAILY PRN (Reason: SEVERE PAIN) Protocol: *Topical Application Instructions APPLICATION INSTRUCTIONS: right forearm. Rx Instructions: PATCH SHOULDNT BE LEFT ON SKIN FOR MORE THAN 12 HOURS testosterone cypionate [Depo-Testosterone] 200 mg/mL oil 200 mg IM .[id number] icosapent ethyl 1 gram capsule 2 g PO BID [facility] Care Provider[facility] [facility]: [facility] [Primary Care Provider] - Print Language: Dutch Disposition Disposition: Acute Care Hospital [facility]
--- NOTE | 2023-07-30 17:25 | ED.RN ---
patient is declining weeks catheter at this time
[2023-07-30 17:31] LABS: Anion Gap 5 (5-15); BUN 14 mg/dL (7-18); Chloride 105 mmol/L (98-107); Creatinine, Serum 1.27 mg/dL (0.70-1.30); EST Glomerular Filtration Rate 62 mL/min (>60); Est Glom Filt Rate - Afr Amer 75 mL/min (>60); Estimated Creatinine Clearance 67.53 ml/min; Glucose 215 mg/dL (74-106); Potassium 3.6 mmol/L (3.5-5.1); Sodium Level 137 mmol/L (136-145); Troponin-I HS 7 pg/mL (3.0-78.0)
[2023-07-30] MEDS: TENECTEPLASE 3182.4 MG IV (17:31)
[2023-07-30] MEDS: 0.9% Saline Lock 10 ML Syringe IV ×2 (17:31→17:32)
[2023-07-30] MEDS: 0.9% Normal Saline (1000mL) 1,000 ML 100 ML IV (17:34)
--- NOTE | 2023-07-30 17:50 | ED.RN ---
[facility] CALLED, [facility]EM[facility] ABOUT PT. FAXED CHART TO [phone]
--- NOTE | 2023-07-30 17:55 | RAD_ITS ---
STUDY: X-RAY CHEST REASON FOR EXAM: Male, 58 years old. Neuro deficit, acute, stroke suspected TECHNIQUE: Single frontal view of the chest. COMPARISON: March 16, 2023 FINDINGS: The lungs are clear and expanded. There is no demonstrated pleural abnormality. Normal size heart. Normal mediastinum and nandini. Normal visualized pulmonary arteries. Normal visualized aortic arch and descending thoracic aorta. Normal visualized thoracic spine. Normal visualized ribs, clavicles, and shoulders. There is no demonstrated abnormality of the visualized soft tissue structures of the upper abdomen. RAD/Chest 1 View IMPRESSION: Normal x-ray examination of the chest. Electronically Signed: Jason Villeda MD at 19:55 EDT ,
[2023-07-30] MEDS: Acetaminophen 650 MG/20 ML UDC PO (18:08)
--- NOTE | 2023-07-30 18:46 | HP.PCM.HOS_ITS ---
HPI - General General Date of Admission: 07/30/23 Date of Service: 07/30/23 Chief Complaint: Acute stroke HPI Narrative 58-year-old gentleman was presented to the ED with concerns regarding acute stroke with right-sided facial droop, upper and lower extremity weakness. Given his presentation he has received tenecteplase in the ED. His CT head and CVA did not show any acute bleed. The case was discussed with the stroke center and [facility] and a decision was made to start him on TNK. He is being admitted post tenecteplase therapy for further evaluation and management. There has been some improvement in his weakness after the tenecteplase. He has a significant past medical history of prior TIA/CVA and is on Plavix, type 2 diabetes, dyslipidemia, BRITTANY, obesity with a BMI of 33, Parkinson's disease for which she is on Rytary and Inbrija. , SLE, colon diverticulitis, BPH, generalized osteoarthritis. He was previously admitted to [facility] on 03/17/2023 to 2023 for recurrent chest pain. At the time [place] was ruled out or ruled out with serial cardiac enzymes. His left heart catheterization did not demonstrate any obstructive lesions. Today, With his in a grocery store at around 4 PM when he started developing symptoms of right-sided weakness and facial droop with changes in his voice. This is his fourth episode of similar presentation, he asked his to call the EMS right away and was brought to the ED. At the time of presentation to the ED his blood pressure was 152/75, pulse of 80, satting well at room air, his cholesterol was 146, triglycerides 302, HDL 32 WBC 6.7, hemoglobin 15.5, PT 12.8, INR 1.0, glucose of 215, CTA showed normal head and neck vasculature, brain CT showed no findings of intracranial hemorrhage or acute ischemic infarction, but showed opacification of maxillary sinuses bilaterally. REPLACED BY [facility] Medical History Acute stroke due to ischemia Lupus Wears glasses Diabetes History of hiatal hernia CPAP (continuous positive airway pressure) dependence Acute cerebrovascular accident (CVA) due to ischemia Type 2 diabetes mellitus COVID-19 vaccine series completed Borderline type 2 diabetes mellitus Former smoker Hypertension Hyperlipidemia HLD (hyperlipidemia) HTN (hypertension) Parkinsons disease Chest pain GERD (gastroesophageal reflux disease) Constipation Sleep apnea Depression with anxiety Abdominal pain Diverticulitis Home Medications ?Medication ?Instructions ?Recorded ?Last Taken ?Type melatonin 3 mg tablet 9 mg PO QHS SLEEP 05/12/19 03/15/23 History trazodone 100 mg tablet 200 mg PO QHS SLEEP 05/12/19 03/16/23 History famotidine 20 mg tablet 20 mg PO BID GERD 02/17/20 03/16/23 History levodopa 42 mg capsule with 84 mg inhalation 0700,1100,1500 02/16/21 03/16/23 History inhalation device (Inbrija) PARKINSONS propranolol 10 mg tablet 10 mg PO BID HYPERTENSION 02/16/21 03/16/23 History carbidopa ER 36.25 mg-levodopa 145 4 cap PO 4X/DAY Parkinsons 11/30/21 03/16/23 History mg capsule,extended release (Rytary) cholecalciferol (vitamin D3) 50 50 mcg PO DAILY SUPPLEMENT 11/30/21 03/16/23 History mcg (2,000 unit) tablet diltiazem HCl 60 mg tablet 60 mg PO BID HYPERTENSION/AGINA 11/30/21 03/16/23 History empagliflozin 25 mg tablet 12.5 mg PO DAILY DIABETES 11/30/21 03/16/23 History (Jardiance) omega-3 fatty acids 1,000 mg PO DAILY SUPPLEMENT 11/30/21 03/16/23 History prazosin 5 mg capsule 10 mg PO QHS HYPERTENSION 11/30/21 03/15/23 History rosuvastatin 20 mg tablet 20 mg PO QHS HIGH CHOLESTEROL 11/30/21 03/16/23 History duloxetine 60 mg capsule,delayed 120 mg PO DAILY DEPRESSION 03/29/22 03/16/23 History release clopidogrel 75 mg tablet 75 mg PO DAILY BLOOD THINNER #21 01/12/23 03/16/23 Rx tabs clonazepam 0.5 mg tablet 0.5 mg PO QHS PANIC ATTACKS 03/16/23 03/14/23 History diclofenac sodium 1 % topical gel 4 g topical BID PRN OSTEOARTHRITIS 03/16/23 Unknown History gabapentin 300 mg capsule 300 mg PO QHS RESTLESS LEG SYNDROME 03/16/23 03/15/23 History lidocaine 5 % topical patch 1 patch topical DAILY PRN SEVERE 03/16/23 Unknown History PAIN sildenafil 100 mg tablet 100 mg PO DAILY PRN sexual activity 03/16/23 Unknown History icosapent ethyl 1 gram capsule 2 g PO BID 07/30/23 Unknown History testosterone cypionate 200 mg/mL 200 mg IM .[id number] 07/30/23 Unknown History intramuscular oil (Depo-Testosterone) Allergy/AdvReac Type Severity Reaction Status Date / Time No Known Allergies Allergy Verified 07/30/23 17:20 Family History Mother Heart disease Hypertension High cholesterol Cancer skin cancer Father Heart disease High cholesterol Hypertension CVA (cerebral vascular accident) Surgical History S/P arthroscopic surgery of left knee History of colectomy (~02/2020) History of laparoscopic cholecystectomy History of appendectomy Social History household members: spouse number of children: 5 current occupational status: unemployed Smoking Status: Former smoker how long ago did patient quit smoking: Quit ~ 15 years prior, smoked socially only. alcohol intake: never substance use type: does not use Vital Signs Vital Signs Vital Signs: 07/30/23 16:55 07/30/23 17:04 07/30/23 17:06 Temperature 98.1 F Temperature Source Temporal Pulse Rate 105 H 87 87 Respiratory Rate 18 16 16 Blood Pressure 160/80 H 176/79 H 176/79 H Blood Pressure Mean 106 111 111 Blood Pressure Source Blood Pressure Position Blood Pressure Location Pulse Ox 96 94 94 Oxygen Delivery Method Room Air Room Air Room Air 07/30/23 17:11 07/30/23 17:19 07/30/23 17:31 Temperature Temperature Source Pulse Rate 82 Respiratory Rate 13 Blood Pressure 157/83 H 157/83 H Blood Pressure Mean 107 Blood Pressure Source Monitor Blood Pressure Position Semi-Fowlers Blood Pressure Location Left Arm Pulse Ox 95 Oxygen Delivery Method Nasal Cannula Room Air 07/30/23 17:34 07/30/23 17:48 07/30/23 17:49 Temperature 98.1 F Temperature Source Pulse Rate 78 83 76 Respiratory Rate 12 14 18 Blood Pressure 143/74 H 151/98 H 155/88 H Blood Pressure Mean 97 115 110 Blood Pressure Source Monitor Monitor Blood Pressure Position Semi-Fowlers Semi-Fowlers Blood Pressure Location Left Arm Left Arm Pulse Ox 96 94 96 Oxygen Delivery Method Room Air Room Air 07/30/23 18:04 07/30/23 18:19 07/30/23 18:34 Temperature Temperature Source Pulse Rate 78 82 80 Respiratory Rate 10 L 19 H 14 Blood Pressure 140/81 H 130/74 H 152/75 H Blood Pressure Mean 100 92 100 Blood Pressure Source Monitor Monitor Monitor Blood Pressure Position Semi-Fowlers Semi-Fowlers Semi-Fowlers Blood Pressure Location Left Arm Left Arm Left Arm Pulse Ox 94 94 95 Oxygen Delivery Method Room Air Room Air Room Air Weight Weight: 195 lb Body Mass Index (BMI) 27.1 Results Lab / Micro Data 07/30/23 16:50 07/30/23 16:50 Labs: Laboratory Results - last 24 hr 07/30/23 16:50: WBC 6.7, RBC 5.20, Hgb 15.5, Hct 45.7, MCV 87.9, MCH 29.8, MCHC 33.9, RDW Std Deviation 39.6, RDW Coeff of Gail 12.5, Plt Count 161, MPV 9.7, Immature Gran % (Auto) 0.300, Neut % (Auto) 63.6, Lymph % (Auto) 23.7, [place] % (Auto) 9.8, Eos % (Auto) 2.2, Baso % (Auto) 0.4, Absolute Neuts (auto) 4.3, Absolute Lymphs (auto) 1.59, Nucleated RBC % 0, PT 12.8, INR 1.0, APTT 25.7, Sodium 137, Potassium 3.6, Chloride 105, Carbon Dioxide 27.0, Anion Gap 5, BUN 14, Creatinine 1.27, Estim Creat Clear Calc 67.53, Est GFR (MDRD) Af Amer 75, Est GFR (MDRD) Non-Af 62, BUN/Creatinine Ratio 11.0, Glucose 215 H, Calcium 9.0, Troponin I High Sens 7 Imaging Radiology Impression Brain CT 07/30/23 16:56 IMPRESSION: Bilateral maxillary sinusitis otherwise no acute intracranial disease. Electronically Signed: Jason Villeda MD at 17:13 EDT , ADDENDUM: 07/30/23 1722 IMPRESSION: Bilateral maxillary sinusitis otherwise no acute intracranial disease. N.B. : The above Results were Read Back by Jason Villeda MD to Lupe Shin MD, and understanding confirmed on 07/30/2023 17:15:54 (ET). Electronically Signed: Jason Villeda MD at 17:13 EDT , ADDENDUM: 07/30/23 1753 IMPRESSION: Bilateral maxillary sinusitis otherwise no acute intracranial disease. N.B. : The above Results were Read Back by Jason Villeda MD to Lupe Shin MD, and understanding confirmed on 07/30/2023 17:16:20 (ET). Electronically Signed: Jason Villeda MD at 17:13 EDT , Head/Neck CTA 07/30/23 16:57 IMPRESSION: Bilateral maxillary sinusitis otherwise Normal CTA Head and neck with contrast. N.B. : The above Results were Read Back by Jason Villeda MD to Lupe Shin MD, and understanding confirmed on 07/30/2023 18:11:00 (ET). Electronically Signed: Jason Villeda MD at 18:12 EDT , ADDENDUM: 07/30/23 1819 IMPRESSION: Bilateral maxillary sinusitis otherwise Normal CTA Head and neck with contrast. N.B. : The above Results were Read Back by Jason Villeda MD to Lupe Shin MD, and understanding confirmed on 07/30/2023 18:11:00 (ET). Electronically Signed: Jason Villeda MD at 18:12 EDT , Assessment & Plan Assessment/Plan (1) Acute CVA (cerebrovascular accident): PLAN: Plan 58 year old male with past medical history of Diverticulitis s/p prior partial colectomy, HTN, HLD, Diabetes mellitus type II, Depression and Anxiety, GERD, Former tobacco use, BRITTANY on CPAP q HS, Parkinson's disease, presents to the ED with concerns of acute ischemic stroke with NIHSS: 9, and received tenecteplase in the ED. Postoperatively there has been some improvement in his symptoms but he still AO x 2 and there is some persistent weakness. He is being admitted to the ICU for further neurologic monitoring, and evaluation. This is fourth admission for acute ischemic stroke. #Acute ischemic stroke: -Resume clopidogrel 75 mg daily after 24 hours after TNK administration with repeat CT scan -MRA brain -Echocardiogram -Sen[employer]roll [employer], consultation as per protocol -Continue permissive hypertension with as needed agents per the stroke protocol given TNK administration #Parkinson's disease: -On carbidopa levodopa -Inbrija 42 mg capsule # Acute maxillary sinusitis: No active treatment for now #Panic attacks: Continue clonazepam 0.5 mg daily at bedtime #Hypertension: -Hold off diltiazem 60 mg twice daily, propranolol 10 mg tablet twice daily for now #Depression: Continue duloxetine 120 mg #Diabetes Jardiance 12.5 mg daily #GERD: Famotidine 20 mg twice daily #Restless leg syndrome: Gabapentin 300 mg at bedtime #Insomnia: -Melatonin 9 mg at bedtime -Trazodone 200 mg at bedtime #Dyslipidemia: Rosuvastatin 20 mg at bedtime # DVT prophylaxis: SCD, defer any chemoprophylaxis given the TNK administration Charges/Coding Visit Charges Inpatient E&M: 97699 Init Hosp L3
[2023-07-30] MEDS: Ondansetron 4 MG/2 ML Vial IV (19:04)
--- NOTE | 2023-07-30 19:11 | ECHOD_ITS ---
Reason For Study: TIA/CVA Procedure This was a 2D Doppler, Color Flow transthoracic echocardiogram. Exam performed portable in ICU/CCU. Left Ventricle Normal LV size. Mild concentric left ventricular hypertrophy. Left ventricular systolic function is normal. The estimated ejection fraction is 60 %. No regional wall motion abnormalities noted. Right Ventricle Normal RV size. Normal systolic function. Mitral Valve Normal mitral valve. Tricuspid Valve Normal tricuspid valve. Mild (1+) tricuspid valve insufficiency. Pulmonary artery systolic pressure is 20 mmHg. Aortic Valve Trisinus/trileaflet aortic valve. Pulmonic Valve Normal pulmonic valve. Great Vessels Normal aortic root. Pericardium/Pleural No pericardial effusion. MMode/2D Measurements & Calculations LVIDd: 4.9 cm IVSd: 1.2 cm Ao root diam: 3.2 cm LVIDs: 3.1 cm LVPWd: 1.2 cm RVDd: 4.2 cm FS: 37.0 % LAV(MOD-bp): 61.6 ml LVAd ap4: 36.0 cm2 LVAd ap2: 35.2 cm2 LAV(MOD-bp) Indexed: 28.1 ml/m2 LVLd ap4: 10.0 cm LVLd ap2: 10.0 cm LAV(MOD-sp2): 68.9 ml EDV(MOD-sp4): 107.5 ml EDV(MOD-sp2): 101.1 ml LAV(MOD-sp4): 44.8 ml EDV(sp4-el): 110.2 ml EDV(sp2-el): 105.4 ml LVAs ap4: 20.3 cm2 LVAs ap2: 16.6 cm2 LVLs ap4: 8.5 cm LVLs ap2: 7.9 cm ESV(MOD-sp4): 42.5 ml ESV(MOD-sp2): 32.0 ml ESV(sp4-el): 41.1 ml ESV(sp2-el): 29.8 ml EF(MOD-sp4): 60.4 % EF(MOD-sp2): 68.3 % EF(sp4-el): 62.7 % SV(MOD-sp4): 65.0 ml SV(MOD-sp2): 69.1 ml SV(sp4-el): 69.1 ml LA dimension(2D): 3.8 cm LA A4 area: 19.3 cm2 RA A4 area: 17.1 cm2 TAPSE: 2.2 cm Time Measurements MV dec time: 0.21 sec Doppler Measurements & Calculations MV E max david: 75.6 cm/sec Lat Peak E' David: 12.9 cm/sec Med Peak E' David: 8.2 cm/sec MV A max david: 62.9 cm/sec E/E' lat: 5.8 E/E' med: 9.3 MV E/A: 1.2 MV dec slope: 366.7 cm/sec2 Ao V2 max: 127.4 cm/sec LV V1 max: 118.6 cm/sec Ao max P.5 mmHg LV V1 max P.6 mmHg PA V2 max: 103.3 cm/sec TR max david: 195.3 cm/sec TR max P.3 mmHg ECHO/Echo Complete Interpretation Summary Normal LV size. Left ventricular systolic function is normal. The estimated ejection fraction is 60 %. Mild concentric left ventricular hypertrophy. Structurally normal valves. Ordering Physician: Madhuri Galaviz Referring Physician: [facility] Performed By: Mar Sevilla RDCS
--- NOTE | 2023-07-30 20:01 | PCMCONS.TICU ---
HPI Consult Data Date of Consult: 07/30/23 HPI Narrative HPI Narrative: KRISHAN BURNHAM, is a 58 M w/ recurrent CVA on ASA/plavix, SLE, DM2, BRITTANY, Parkinson's disease, obesity, h/o diverticulitis who was admitted for recurrent stroke-like sx. He was at grocery store with earlier today and around 4 PM developed acute R sided weakness, facial droop, slurred speech; sx similar to his prior CVA. called EMS who brought him to ED. Per discussion with stroke center at [facility], they recommended TNK which was administered. CTA head/neck without LVO. He still has some dysarthria and word finding difficulty. Feels weakness getting slightly better. Denies recent fevers/chills, infections, chest pain, dyspnea. He thinks he is only taking plavix currently and not ASA, believes he was told to stop this. Quit smoking many yrs ago. Denies fevers, chills, nausea, vomiting, diarrhea, syncope, presyncope, dysphagia, odynophagia, orthopnea, paroxysmal, nocturnal dyspnea, shortness of breath, chest pain, reflux symptoms, belly pain, dysuria, hematuria, melena, hematochezia, seizures. ROS: 12-point ROS negative except as per HPI PFSH Medical History Acute stroke due to ischemia Lupus Wears glasses Diabetes History of hiatal hernia CPAP (continuous positive airway pressure) dependence Acute cerebrovascular accident (CVA) due to ischemia Type 2 diabetes mellitus COVID-19 vaccine series completed Borderline type 2 diabetes mellitus Former smoker Hypertension Hyperlipidemia HLD (hyperlipidemia) HTN (hypertension) Parkinsons disease Chest pain GERD (gastroesophageal reflux disease) Constipation Sleep apnea Depression with anxiety Abdominal pain Diverticulitis Home Medications ?Medication ?Instructions ?Recorded ?Last Taken ?Type melatonin 3 mg tablet 9 mg PO QHS SLEEP 05/12/19 03/15/23 History trazodone 100 mg tablet 200 mg PO QHS SLEEP 05/12/19 03/16/23 History famotidine 20 mg tablet 20 mg PO BID GERD 02/17/20 03/16/23 History levodopa 42 mg capsule with 84 mg inhalation 0700,1100,1500 02/16/21 03/16/23 History inhalation device (Inbrija) PARKINSONS propranolol 10 mg tablet 10 mg PO BID HYPERTENSION 02/16/21 03/16/23 History carbidopa ER 36.25 mg-levodopa 145 4 cap PO 4X/DAY Parkinsons 11/30/21 03/16/23 History mg capsule,extended release (Rytary) cholecalciferol (vitamin D3) 50 50 mcg PO DAILY SUPPLEMENT 11/30/21 03/16/23 History mcg (2,000 unit) tablet diltiazem HCl 60 mg tablet 60 mg PO BID HYPERTENSION/AGINA 11/30/21 03/16/23 History empagliflozin 25 mg tablet 12.5 mg PO DAILY DIABETES 11/30/21 03/16/23 History (Jardiance) omega-3 fatty acids 1,000 mg PO DAILY SUPPLEMENT 11/30/21 03/16/23 History prazosin 5 mg capsule 10 mg PO QHS HYPERTENSION 11/30/21 03/15/23 History rosuvastatin 20 mg tablet 20 mg PO QHS HIGH CHOLESTEROL 11/30/21 03/16/23 History duloxetine 60 mg capsule,delayed 120 mg PO DAILY DEPRESSION 03/29/22 03/16/23 History release clopidogrel 75 mg tablet 75 mg PO DAILY BLOOD THINNER #21 01/12/23 03/16/23 Rx tabs clonazepam 0.5 mg tablet 0.5 mg PO QHS PANIC ATTACKS 03/16/23 03/14/23 History diclofenac sodium 1 % topical gel 4 g topical BID PRN OSTEOARTHRITIS 03/16/23 Unknown History gabapentin 300 mg capsule 300 mg PO QHS RESTLESS LEG SYNDROME 03/16/23 03/15/23 History lidocaine 5 % topical patch 1 patch topical DAILY PRN SEVERE 03/16/23 Unknown History PAIN sildenafil 100 mg tablet 100 mg PO DAILY PRN sexual activity 03/16/23 Unknown History icosapent ethyl 1 gram capsule 2 g PO BID 07/30/23 Unknown History testosterone cypionate 200 mg/mL 200 mg IM .[id number] 07/30/23 Unknown History intramuscular oil (Depo-Testosterone) Allergy/AdvReac Type Severity Reaction Status Date / Time No Known Allergies Allergy Verified 07/30/23 17:20 Family History Mother Heart disease Hypertension High cholesterol Cancer skin cancer Father Heart disease High cholesterol Hypertension CVA (cerebral vascular accident) Surgical History S/P arthroscopic surgery of left knee History of colectomy (~02/2020) History of laparoscopic cholecystectomy History of appendectomy Social History household members: spouse number of children: 5 current occupational status: unemployed Smoking Status: Former smoker how long ago did patient quit smoking: Quit ~ 15 years prior, smoked socially only. alcohol intake: never substance use type: does not use Objective Data Objective Data Vital Signs: Vital Signs Last response Temperature 36.7 C 07/30/23 17:48 Temperature Source Temporal 07/30/23 17:04 Pulse Rate 78 07/30/23 19:19 Respiratory Rate 12 07/30/23 19:19 Blood Pressure 136/72 H 07/30/23 19:19 Blood Pressure Mean 93 07/30/23 19:19 Blood Pressure Source Monitor 07/30/23 19:19 Blood Pressure Position Semi-Fowlers 07/30/23 19:19 Blood Pressure Location Left Arm 07/30/23 19:19 Pulse Ox 95 07/30/23 19:19 Oxygen Delivery Method Room Air 07/30/23 19:19 I&O: I&O Last 24 Hours 07/29/23 07/30/23 07/30/23 23:59 11:59 23:59 Intake Total 0 / 0 Balance 0 / 0 I&O: Total Stay 07/30/23 16:55 thru 07/30/23 19:25 Intake Total 0 Balance 0 Current Meds Ordered / Administered: Current meds ordered / Administered Generic Name Dose Route Start Last Admin Trade Name Freq PRN Reason Stop Dose Admin Acetaminophen 650 mg 07/30/23 19:12 Acetaminophen 325 Mg Tablet PO Q6H PRN PRN Pain 1-10 Or Fever >100.7 Atorvastatin Calcium 40 mg 07/30/23 22:00 Atorvastatin Calcium 40 Mg Tablet PO QHS TAN Clarify Med Order 1 each 07/31/23 15:00 Clarify Order NOTE CLARIFY TAN Clonazepam 0.5 mg 07/30/23 22:00 Clonazepam 0.5 Mg Tablet PO QHS TAN Diphenhydramine HCl 50 mg 07/30/23 17:19 Diphenhydramine 50 Mg/Ml Syringe IV 07/31/23 17:19 X1 PRN Allergic Reaction Duloxetine HCl 120 mg 07/31/23 10:00 Duloxetine Hcl 60 Mg Capsule PO DAILY [facility] Empagliflozin 12.5 mg 07/31/23 10:00 Empagliflozin 25 Mg Tablet PO DAILY [facility] Famotidine 20 mg 07/30/23 22:00 Famotidine 20 Mg Tablet PO BID TAN Gabapentin 300 mg 07/30/23 22:00 Gabapentin 300 Mg Capsule PO QHS TAN Sodium Chloride 1,000 mls @ 100 mls/hr 07/30/23 17:20 07/30/23 17:34 IV 100 mls/hr .Q10H TAN Administration Sodium Chloride 250 mls @ 15 mls/hr 07/30/23 19:39 IV .[id number] PRN Additional IVPB Infusion Sodium Chloride 250 mls @ 15 mls/hr 07/30/23 19:39 IV .[id number] PRN Saline Flush Labetalol HCl 20 mg 07/30/23 16:56 Labetalol (Prefilled) 20 Mg/4 Ml IV 07/31/23 16:56 X1 PRN BLOOD PRESSURE Labetalol HCl 20 mg 07/30/23 17:19 Labetalol (Prefilled) 20 Mg/4 Ml IV 07/31/23 17:19 X1 PRN BLOOD PRESSURE Melatonin 9 mg 07/30/23 22:00 Melatonin 3 Mg Tablet PO QHS [facility] Non-Formulary Medication 4 cap 07/30/23 22:00 Carbidopa-Levodopa [Rytary] PO 4X/DAY [facility] Non-Formulary Medication 84 mg 07/31/23 07:00 Levodopa [Inbrija] INHALATION 0700,1100,1500 [facility] Oxycodone HCl 5 mg 07/30/23 19:12 Oxycodone 5 Mg Tablet PO Q4H PRN PRN Pain Score 4-10 Sodium Chloride 10 - 40 ml 07/30/23 19:39 0.9% Saline Lock 10 Ml Syringe IV UD PRN SALINE FLUSH Trazodone HCl 200 mg 07/30/23 22:00 Trazodone 100 Mg Tablet PO QHS [facility] Lab / Micro Data 07/30/23 16:50 07/30/23 16:50 Labs: Laboratory Results - last 24 hr 07/30/23 16:50: WBC 6.7, RBC 5.20, Hgb 15.5, Hct 45.7, MCV 87.9, MCH 29.8, MCHC 33.9, RDW Std Deviation 39.6, RDW Coeff of Gail 12.5, Plt Count 161, MPV 9.7, Immature Gran % (Auto) 0.300, Neut % (Auto) 63.6, Lymph % (Auto) 23.7, [place] % (Auto) 9.8, Eos % (Auto) 2.2, Baso % (Auto) 0.4, Absolute Neuts (auto) 4.3, Absolute Lymphs (auto) 1.59, Nucleated RBC % 0, PT 12.8, INR 1.0, APTT 25.7, Sodium 137, Potassium 3.6, Chloride 105, Carbon Dioxide 27.0, Anion Gap 5, BUN 14, Creatinine 1.27, Estim Creat Clear Calc 67.53, Est GFR (MDRD) Af Amer 75, Est GFR (MDRD) Non-Af 62, BUN/Creatinine Ratio 11.0, Glucose 215 H, Calcium 9.0, Troponin I High Sens 7 Imaging Radiology Impression Brain CT 07/30/23 16:56 IMPRESSION: Bilateral maxillary sinusitis otherwise no acute intracranial disease. Electronically Signed: Jason Villeda MD at 17:13 EDT Reading Location ID and State: [address] [place] [address] Tel , Service support , ADDENDUM: 07/30/23 1722 IMPRESSION: Bilateral maxillary sinusitis otherwise no acute intracranial disease. N.B. : The above Results were Read Back by Jason Villeda MD to Lupe Shin MD, and understanding confirmed on 07/30/2023 17:15:54 (ET). Electronically Signed: Jason Villeda MD at 17:13 EDT Reading Location ID and State: [facility] / [place] Tel , Service support , ADDENDUM: 07/30/23 1753 IMPRESSION: Bilateral maxillary sinusitis otherwise no acute intracranial disease. N.B. : The above Results were Read Back by Jason Villeda MD to Lupe Shin MD, and understanding confirmed on 07/30/2023 17:16:20 (ET). Electronically Signed: Jason Villeda MD at 17:13 EDT Reading Location ID and State: [address] [place] [address] Tel , Service support , Head/Neck CTA 07/30/23 16:57 IMPRESSION: Bilateral maxillary sinusitis otherwise Normal CTA Head and neck with contrast. N.B. : The above Results were Read Back by Jason Villeda MD to Lupe Shin MD, and understanding confirmed on 07/30/2023 18:11:00 (ET). Electronically Signed: Jason Villeda MD at 18:12 EDT Reading Location ID and State: [address] [place] [address] Tel , Service support , ADDENDUM: 07/30/23 1819 IMPRESSION: Bilateral maxillary sinusitis otherwise Normal CTA Head and neck with contrast. N.B. : The above Results were Read Back by Jason Villeda MD to Lupe Shin MD, and understanding confirmed on 07/30/2023 18:11:00 (ET). Electronically Signed: Jason Villeda MD at 18:12 EDT Reading Location ID and State: [address] [place] [address] Tel , Service support , Chest X-Ray 07/30/23 17:55 IMPRESSION: Normal x-ray examination of the chest. Electronically Signed: Jason Villeda MD at 19:55 EDT Reading Location ID and State: [address] [place] [address] Tel , Service support , Assessment and Plan . Assessment and plan: Physical Exam: Gen - NAD, well-developed HEENT - MMM. Sclera anicteric Resp - CTAB. Breathing nonlabored CV - RRR. No m/g/r Abd - Soft, NT, ND Ext - No c/c/e. Skin - No rashes? Neuro - R sided weakness. Alert, answers questions appropriately I have reviewed the pertinent vital sign, laboratory, and imaging data. ASSESSMENT: # Acute CVA - 4th admission for recurrent CVA. On ASA/plavix at home # SLE # DM2 # BRITTANY # Parkinson's disease # Chronic back pain # Obesity # h/o diverticulitis PLAN: -s/p TNK. Monitor in ICU closely with Q1h neuro checks -Recommend formal neuro consult given recurrent CVA, appears ED spoke to [facility] stroke center -Agree with MR brain, echo with bubble study. Repeat CT head in 24 hrs post-TNK -Permissive hypertension -PRN analgesia for back pain, monitor for oversedation -PT/OT/ST FEN/GI: NPO Proph DVT/GI: SCDs Code status: DNR Critical Care Time: 60 mins The entirety of this encounter was completed via telemedicine
[2023-07-30 20:03] LABS: Hemoglobin A1c 5.5 % (3.8-5.6)
[2023-07-30] MEDS: oxyCODONE 5 MG Tablet PO (20:06)
[2023-07-30] MEDS: Famotidine 20 MG Tablet PO (22:38)
[2023-07-30] MEDS: Gabapentin 300 MG Capsule PO (22:39)
[2023-07-30] MEDS: Morphine 2 MG/ML Syringe IV (22:39)
[2023-07-30] MEDS: Atorvastatin Calcium 40 MG Tablet PO (22:39)
[2023-07-30] MEDS: clonazePAM 0.5 MG Tablet PO (22:39)
[2023-07-30] MEDS: traZODone 100 MG Tablet 200 MG PO (22:39)
[2023-07-30] MEDS: MELATONIN 3 MG TABLET 9 MG PO (22:39)
[2023-07-31] VITALS (23 sets, daily range): BP systolic 95–145; BP diastolic 67–87; PULSE 48–73; RESP 10–16; TEMP 36.2–36.8; O2SAT 92–97; BMI 27.1; BMI 30.8
[2023-07-31] MEDS: oxyCODONE 5 MG Tablet PO ×3 (02:52→21:20)
[2023-07-31] MEDS: 0.9% Normal Saline (1000mL) 1,000 ML 100 ML IV (02:52)
[2023-07-31] MEDS: Morphine 2 MG/ML Syringe IV ×4 (03:49→17:44)
[2023-07-31] MEDS: 0.9% Saline Lock 10 ML Syringe IV ×4 (03:49→17:07)
[2023-07-31 04:06] LABS: Absolute Lymphocyte Count 1.55 X10^3/uL (0.83-4.51); Absolute Neutrophil Count 4.5 X10^3/uL (2.0-7.7); Basophil# 0.03 X10^3/uL; Basophil% 0.4 % (0-1); Eosinophil# 0.17 X10^3/uL; Eosinophils% 2.4 % (0-5); Hematocrit 41.8 % (40-54); Hemoglobin 13.7 g/dL (13.0-16.5); Lymphocyte # 1.55 X10^3/ul (0.83-4.51); Mean Corp Hgb Conc 32.8 g/dL (32-36); Mean Corpuscular Volume 88.6 fL (80-94); Mean Platelet Vol. 9.8 fl (6.2-12.0); Monocyte# 0.74 X10^3/uL; Monocyte% 10.5 % (0-10); NRBC Flagged by Analyzer 0 % (0-5); Neutrophil # 4.51 X10^3/uL (2.7-7.7); Neutrophil % 64.3 % (47-70); Platelet Count 146 K/mm3 (150-450); RBC Distribution Width CV 12.6 % (11.6-14.6); RBC Distribution Width SD 40.9 fl (35.1-43.9); Red Blood Count 4.72 M/mm3 (4.6-6.2)
[2023-07-31 04:21] LABS: International Normalized Ratio 1.1; Prothrombin Time (Protime)PT. 14.2 SECONDS (11.7-14.9)
[2023-07-31 04:37] LABS: ALB/GLOB Ratio 1.2 RATIO (0.9-2.4); AST(SGOT) 21 U/L (15-37); Alanine Aminotransfer ALT/SGPT 24 U/L (16-61); Albumin, Serum 3.4 g/dL (3.2-5.0); Alkaline Phosphatase 44 U/L (45-117); Anion Gap 8 (5-15); BUN 12 mg/dL (7-18); BUN/Creat Ratio 12.8 RATIO (10-20); Bilirubin, Direct 0.12 mg/dL (0.00-0.30); Calcium,Total 8.3 mg/dL (8.5-10.1); Chloride 109 mmol/L (98-107); Cholesterol 120 mg/dL (200); Creatinine, Serum 0.94 mg/dL (0.70-1.30); EST Glomerular Filtration Rate 88 mL/min (>60); Est Glom Filt Rate - Afr Amer 106 mL/min (>60); Globulin 2.9 g/dL (2.2-4.2); Glucose 110 mg/dL (74-106); High Density Lipoprotein 28 mg/dL; Magnesium 2.1 mg/dL (1.6-2.6); Phosphorus 3.9 mg/dL (2.5-4.9); Potassium 3.9 mmol/L (3.5-5.1); Protein, Total 6.3 g/dL (6.4-8.2); Sodium Level 141 mmol/L (136-145); Thyroid Stim Hormone (TSH) 2.31 uIU/mL (0.358-3.74); Triglycerides 178 mg/dL; Very Low Density Lipoprotein 36 mg/dL (5-40)
--- NOTE | 2023-07-31 07:23 | PN.HOSP_ITS ---
Reason for Visit Reason for Visit: Diagnoses Cerebral infarction, unspecified (07/30/23) Subjective Subjective Patient is a 58-year-old gentleman with history of previous CVA who presented with right-sided weakness facial droop as well as slurred speech. Objective Data Objective Data Vital Signs: Vital Signs Temp Pulse Resp BP Pulse Ox O2 Del Method 98 F 48 L 10 L 122/79 H 94 Room Air 07/31/23 03:30 07/31/23 06:30 07/31/23 06:30 07/31/23 06:30 07/31/23 06:30 07/31/23 06:30 Oxygen Delivery Method Room Air Weight: 100 kg Body Mass Index (BMI) 30.8 Intake & Output: Intake and Output for Last 24 Hours 07/29/23 07/30/23 07/31/23 23:59 23:59 23:59 Intake Total 400 / 400 1410 / 1410 Output Total 650 / 650 625 / 625 Balance -250 / -250 785 / 785 Lab / Micro Data 07/31/23 03:40 07/31/23 03:40 Labs: Laboratory Results - last 24 hr 07/30/23 16:50: WBC 6.7, RBC 5.20, Hgb 15.5, Hct 45.7, MCV 87.9, MCH 29.8, MCHC 33.9, RDW Std Deviation 39.6, RDW Coeff of Gail 12.5, Plt Count 161, MPV 9.7, Immature Gran % (Auto) 0.300, Neut % (Auto) 63.6, Lymph % (Auto) 23.7, Kershaw % (Auto) 9.8, Eos % (Auto) 2.2, Baso % (Auto) 0.4, Absolute Neuts (auto) 4.3, Absolute Lymphs (auto) 1.59, Nucleated RBC % 0, PT 12.8, INR 1.0, APTT 25.7, Sodium 137, Potassium 3.6, Chloride 105, Carbon Dioxide 27.0, Anion Gap 5, BUN 14, Creatinine 1.27, Estim Creat Clear Calc 67.53, Est GFR (MDRD) Af Amer 75, Est GFR (MDRD) Non-Af 62, BUN/Creatinine Ratio 11.0, Glucose 215 H, Hemoglobin A1c 5.5, Calcium 9.0, Troponin I High Sens 7 07/31/23 03:40: WBC 7.0, RBC 4.72, Hgb 13.7, Hct 41.8, MCV 88.6, MCH 29.0, MCHC 32.8, RDW Std Deviation 40.9, RDW Coeff of Gail 12.6, Plt Count 146 L, MPV 9.8, Immature Gran % (Auto) 0.400, Neut % (Auto) 64.3, Lymph % (Auto) 22.0, Kershaw % (Auto) 10.5 H, Eos % (Auto) 2.4, Baso % (Auto) 0.4, Absolute Neuts (auto) 4.5, Absolute Lymphs (auto) 1.55, Nucleated RBC % 0, PT 14.2, INR 1.1, Sodium 141, Potassium 3.9, Chloride 109 H, Carbon Dioxide 24.0, Anion Gap 8, BUN 12, Creatinine 0.94, Estim Creat Clear Calc 103.20, Est GFR (MDRD) Af Amer 106, Est GFR (MDRD) Non-Af 88, BUN/Creatinine Ratio 12.8, Glucose 110 H, Calcium 8.3 L, Phosphorus 3.9, Magnesium 2.1, Total Bilirubin 0.40, Direct Bilirubin 0.12, AST 21, ALT 24, Alkaline Phosphatase 44 L, Total Protein 6.3 L, Albumin 3.4, Globulin 2.9, Albumin/Globulin Ratio 1.2, Triglycerides 178, Cholesterol 120, LDL Cholesterol 56, VLDL Cholesterol 36, HDL Cholesterol 28 L, TSH 2.31 Radiography Diagnostic Testing: Radiology Impression Brain CT 07/30/23 16:56 IMPRESSION: Bilateral maxillary sinusitis otherwise no acute intracranial disease. Electronically Signed: Jason Villeda MD at 17:13 EDT , ADDENDUM: 07/30/23 3540 IMPRESSION: Bilateral maxillary sinusitis otherwise no acute intracranial disease. N.B. : The above Results were Read Back by Jason Villeda MD to Lupe Shin MD, and understanding confirmed on 07/30/2023 17:15:54 (ET). Electronically Signed: Jason Villeda MD at 17:13 EDT Reading Location ID and State: [address] [place] [address] Tel , Service support , ADDENDUM: 07/30/23 1753 IMPRESSION: Bilateral maxillary sinusitis otherwise no acute intracranial disease. N.B. : The above Results were Read Back by Jason Villeda MD to Lupe Shin MD, and understanding confirmed on 07/30/2023 17:16:20 (ET). Electronically Signed: Jason Villeda MD at 17:13 EDT Reading Location ID and State: [address] [place] [address] Tel , Service support , Head/Neck CTA 07/30/23 16:57 IMPRESSION: Bilateral maxillary sinusitis otherwise Normal CTA Head and neck with contrast. N.B. : The above Results were Read Back by Jason Villeda MD to Lupe Shin MD, and understanding confirmed on 07/30/2023 18:11:00 (ET). Electronically Signed: Jason Villeda MD at 18:12 EDT Reading Location ID and State: [address] [place] [address] Tel , Service support , ADDENDUM: 07/30/23 1819 IMPRESSION: Bilateral maxillary sinusitis otherwise Normal CTA Head and neck with contrast. N.B. : The above Results were Read Back by Jason Villeda MD to Lupe Shin MD, and understanding confirmed on 07/30/2023 18:11:00 (ET). Electronically Signed: Jason Villeda MD at 18:12 EDT , Chest X-Ray 07/30/23 17:55 IMPRESSION: Normal x-ray examination of the chest. Electronically Signed: Jason Villeda MD at 19:55 EDT , Physical Exam Narrative GENERAL: cooperative HEENT: Atraumatic; normocephalic EYES; Anicteric, Normal Conjunctiva NECK; supple, normal thyroid, RESPIRATORY: Diminished to auscultation CARDIOVASCULAR: Regular S1 S2, GI: soft, normoactive bowel sounds, : No Renal angle tenderness; EXTREMITIES: No edema, no clubbing, MUSCULOSKELETAL: no muscle wasting NEURO: Awake; muscle strength 2/5 in RLE and 4/5 in theRUE SKIN: No Rash PSYCH; Flat affect Assessment & Plan Assessment/Plan (1) Acute CVA (cerebrovascular accident): PLAN: Plan Patient is a 58-year-old gentleman with history of previous CVA who presented with right-sided weakness facial droop as well as slurred speech. 1. Acute ischemic CVA with right-sided weakness ? Patient did receive TNK admitted to the intensive care unit. Subsequently monitored with permissive hypertension, every 4 neurochecks with MRI and echo ordered. Plan is to resume antiplatelet therapy 24 hours after administration of TNK 2. Parkinson's disease ?on carbidopa levodop,Inbrija 42 mg capsule 3. Essential hypertension ? Permissive hypertensive management in place given patient acute ischemic CVA 4. Dyslipidemia ? Patient is on high intensity statin therapy 5. Depression with anxiety Did continue home meds 6. Diabetes mellitus type II -patient's oral hypoglycemics held. Placed on long acting insulin, Accu-Cheks a.c. and at bedtime and covered with sliding scale insulin 7. Restless leg syndrome ? Patient is on gabapentin at night 8. Acute maxillary sinusitis ? CT finding patient remains asymptomatic 9. DVT prophylaxis ? SCDs for now with patient having received TNK Time spent in the patient's overall evaluation,decision-making process, review of diagnostic data, adjustment of management, discussion with other providers, nursing nursing and ancillary staff involved in patient's care documentation, 51 Minutes Charges/Coding Visit Charges Inpatient E&M: 68436 Subs Hosp L3
[2023-07-31] MEDS: DULoxetine Hcl 60 MG Capsule 120 MG PO (09:00)
[2023-07-31] MEDS: Famotidine 20 MG Tablet PO ×2 (09:00→21:22)
[2023-07-31] MEDS: Empagliflozin 25 MG Tablet 12.5 MG PO (09:00)
--- NOTE | 2023-07-31 09:53 | CASEMGMT ---
SW completed a PHQ 9 with patient as he may have had a Stroke. Patient scored a 10 which indicates moderate depression. Patient stated he does have depression and has a Psychiatrist and sees a counselor. Patient is also on antidepressant medication. SW asked patient if he would like any resources. Patient was not sure and said it depends on how things work out during this hospital stay. Patient asked if SW could check back with him. SW told patient SW can definitely check back with him. Christina OSEGUERA
--- NOTE | 2023-07-31 12:50 | CASEMGMT ---
RN CM Face to Face with patient for initial transition planning/care coordination assessment. RN CM introduced self and role at [facility]. Patient lying in bed, alert and oriented, at bedside. Patient willing to participate in assessment and is able to answer all questions appropriately. Care providers, pharmacy, and demographics verified. PCP: [facility]; Also follows at [facility]: Emre Neurologist [facility] Preferred Pharmacy: [facility] [place]: [place], [place] Prescription Benefit: yes Living Will/HPOA: yes, Guera Hernández LNOK: Living Arrangements: Patient lives with in a single story home with 2 steps to enter the home. Transportation: self, DME/HHC: Patient has raised toilet, cane, walker, cpap, and pulse ox at home. Patient wishes to discharge home. Therapy eval pending, will monitor for recommendations. Patient states he has no further needs or concerns at this time. CM to follow for discharge planning needs that may arise. Disposition Plan: TBD, anticipate home vs RU pending course of treatment and progress with therapy. Anu STEVEN, RN, CM
--- NOTE | 2023-07-31 13:06 | CHAPLAIN ---
Type of Pastoral Visit _x__ Initial Visit ___ Follow-up Visit ___ On-call Visit ___ General Patient Visit ___ Spiritual Assessment ___ Family Conference ___ Bereavement ___ Rapid Response ___ Code Blue ___ Other (describe below) Pastoral Care Referral From _x__ Patient _x__ Family ___ Nurse ___ Physician ___ Cable Testers Helper ___ Nurse Extern ___ Other (describe below) Sacrament/Intervention _x__ Active listening ___ Anointing ___ Zoroastrian ___ Bereavement ___ Communion ___ Radha exploration ___ ___ Life review _x__ Prayer ___ Reconciliation ___ Sacrament of Sick _x__ Supportive presence ___ Wedding ___ Other (describe below) Pastoral Comments Spouse and father were outside patient's room when this copier technician approached; talked with family members to assess for needs and support; entered room to speak with patient who is alert; pt has low affect but answers questions and indicates an admission of some depression; pt has had previous strokes but nothing as severe as this one; pt welcomes presence and prayer stating there are people in my zoroastrian praying for me; pt acknowledges the help of radha for his support
[2023-07-31] MEDS: Ondansetron 4 MG/2 ML Vial IV (17:07)
--- NOTE | 2023-07-31 17:30 | MRI_ITS ---
STUDY: MRI BRAIN WITHOUT CONTRAST REASON FOR EXAM: Male, 58 years old. [place] -24 HRS POST TNK FOLLOW-UP MRI brain TECHNIQUE: Standardized multiplanar fat and water weighted pulse sequences were obtained. MRI examination brain obtained with standard protocol including multiplanar multiecho noncontrast imaging. Contrast: No contrast administered. COMPARISON: CT of 07/30/2023 HEMISPHERES, CEREBELLUM AND BRAINSTEM: 1. The cerebral parenchyma, ventricular system, subarachnoid spaces have normal configuration and density. There is a normal gyral pattern. There is normal olguin/white differentiation. No midline shift.. 2. The hemispheric white matter has normal appearance. 3. No intraparenchymal mass, hemorrhage, or acute territorial infarct. 4. The cerebellum, brainstem, basilar and suprasellar cisterns have normal appearance. No Chiari malformation. PITUITARY: Infundibulum and pituitary have normal configuration. Midline structures appear normal. CSF SPACES: Appropriate for age. No hydrocephalus. Basal cisterns are patent. VESSELS: 1. There are normal flow voids noted in the great vessels at the skull base ORBITS AND PARANASAL SINUSES: 1. Both globes, extraocular muscles, optic nerves and retrobulbar fat appear unremarkable. 2. Complete opacification of the maxillary sinuses bilaterally. Mild ethmoid mucosal thickening. BONY ELEMENTS: Bony elements of the cranial vault, facial skeleton and skull base have normal appearance. SCALP AND SOFT TISSUES: Normal appearance of the soft tissues of the scalp and the visualized face OTHER: None MRI/Brain without Contrast IMPRESSION: 1. No intracranial mass, hemorrhage, or acute territorial infarct. 2. Maxillary sinus disease with complete opacification of maxillary antra bilaterally. Mild ethmoid mucosal thickening. Electronically Signed: Arcenio Valladares MD at 19:14 EDT ,
--- NOTE | 2023-07-31 19:50 | NURSING ---
Pt assisted up to chair by staff x2, gait belt and walker; pt stated he felt like right leg would give out but wanted to continue to the chair. Gait was actually slow and steady w/guidance and tolerated move well. Pt's , Guera, asked to please bring in non-formulary meds for Parkinson's; explained to pt and his that these meds are not to be stopped suddenly at the risk of increased motor deficits that may have previously under control. agrees to go home and get meds.
[2023-07-31] MEDS: Gabapentin 300 MG Capsule PO (21:20)
[2023-07-31] MEDS: Psyllium 1 PACKET PO (21:20)
[2023-07-31] MEDS: clonazePAM 0.5 MG Tablet PO (21:20)
[2023-07-31] MEDS: Acetaminophen 325 MG Tablet 650 MG PO (21:21)
[2023-07-31] MEDS: CARBIDOPA/LEVODOPA 1 EACH CAPSULE.ER 4 EACH PO (21:22)
[2023-07-31] MEDS: Atorvastatin Calcium 40 MG Tablet PO (21:22)
[2023-07-31] MEDS: traZODone 100 MG Tablet 200 MG PO (21:22)
[2023-07-31] MEDS: MELATONIN 3 MG TABLET 9 MG PO (21:22)
[2023-08-01] VITALS (8 sets, daily range): BP systolic 105–143; BP diastolic 61–81; PULSE 55–76; RESP 10–18; TEMP 36.4–36.9; O2SAT 94–97; BMI 30.8; BMI 31.4
[2023-08-01 03:06] LABS: Absolute Lymphocyte Count 1.36 X10^3/uL (0.83-4.51); Basophil# 0.04 X10^3/uL; Basophil% 0.5 % (0-1); Eosinophils% 2.7 % (0-5); Hematocrit 43.8 % (40-54); Hemoglobin 14.4 g/dL (13.0-16.5); Lymphocyte # 1.36 X10^3/ul (0.83-4.51); Lymphocyte % 18.6 % (19-41); Mean Corp Hgb Conc 32.9 g/dL (32-36); Mean Corpuscular Hgb 28.9 pg (27.0-32.0); Mean Corpuscular Volume 87.8 fL (80-94); Mean Platelet Vol. 9.9 fl (6.2-12.0); Monocyte# 0.71 X10^3/uL; Monocyte% 9.7 % (0-10); NRBC Flagged by Analyzer 0 % (0-5); Neutrophil # 4.98 X10^3/uL (2.7-7.7); Neutrophil % 68.2 % (47-70); Platelet Count 136 K/mm3 (150-450); RBC Distribution Width CV 12.4 % (11.6-14.6); RBC Distribution Width SD 39.4 fl (35.1-43.9); Red Blood Count 4.99 M/mm3 (4.6-6.2); White Blood Count 7.3 K/mm3 (4.4-11.0)
[2023-08-01 03:37] LABS: Anion Gap 2 (5-15); BUN 14 mg/dL (7-18); BUN/Creat Ratio 14.6 RATIO (10-20); Calcium,Total 8.6 mg/dL (8.5-10.1); Chloride 107 mmol/L (98-107); Creatinine, Serum 0.96 mg/dL (0.70-1.30); EST Glomerular Filtration Rate 86 mL/min (>60); Est Glom Filt Rate - Afr Amer 104 mL/min (>60); Estimated Creatinine Clearance 101.05 ml/min; Glucose 134 mg/dL (74-106); Magnesium 2.2 mg/dL (1.6-2.6); Phosphorus 4.3 mg/dL (2.5-4.9); Potassium 3.7 mmol/L (3.5-5.1); Sodium Level 138 mmol/L (136-145)
[2023-08-01] MEDS: CARBIDOPA/LEVODOPA 1 EACH CAPSULE.ER 4 EACH PO ×4 (06:50→18:35)
[2023-08-01] MEDS: 0.9% Saline Lock 10 ML Syringe IV ×2 (06:51→16:50)
--- NOTE | 2023-08-01 07:27 | PN.HOSP_ITS ---
Reason for Visit Reason for Visit: Diagnoses Cerebral infarction, unspecified (07/30/23) Subjective Subjective MRI obtained the day prior demonstrated no intracranial mass, hemorrhage, or acute territorial infarct. Patient still has significant right-sided deficit. Patient scheduled to undergo modified barium swallow by speech therapy Objective Data Objective Data Vital Signs: Vital Signs Temp Pulse Resp BP Pulse Ox O2 Del Method 98.4 F 55 L 10 L 105/62 95 Room Air 08/01/23 04:00 08/01/23 04:00 08/01/23 04:00 08/01/23 04:00 08/01/23 04:00 08/01/23 04:00 Oxygen Delivery Method Room Air Weight: 102.2 kg Body Mass Index (BMI) 31.4 Intake & Output: Intake and Output for Last 24 Hours 07/30/23 07/31/23 08/01/23 23:59 23:59 23:59 Intake Total 400 / 400 4005 / 4255 250 / 250 Output Total 650 / 650 2850 / 3150 900 / 900 Balance -250 / -250 1155 / 1105 -650 / -650 Lab / Micro Data 08/01/23 03:00 08/01/23 03:00 Labs: Laboratory Results - last 24 hr 08/01/23 03:00: WBC 7.3, RBC 4.99, Hgb 14.4, Hct 43.8, MCV 87.8, MCH 28.9, MCHC 32.9, RDW Std Deviation 39.4, RDW Coeff of Gail 12.4, Plt Count 136 L, MPV 9.9, Immature Gran % (Auto) 0.300, Neut % (Auto) 68.2, Lymph % (Auto) 18.6 L, [place] % (Auto) 9.7, Eos % (Auto) 2.7, Baso % (Auto) 0.5, Absolute Neuts (auto) 5.0, Absolute Lymphs (auto) 1.36, Nucleated RBC % 0, Sodium 138, Potassium 3.7, Chloride 107, Carbon Dioxide 29.0, Anion Gap 2 L, BUN 14, Creatinine 0.96, Estim Creat Clear Calc 101.05, Est GFR (MDRD) Af Amer 104, Est GFR (MDRD) Non-Af 86, BUN/Creatinine Ratio 14.6, Glucose 134 H, Calcium 8.6, Phosphorus 4.3, Magnesium 2.2 Radiography Diagnostic Testing: Radiology Impression Echocardiogram 07/30/23 19:11 Interpretation Summary Normal LV size. Left ventricular systolic function is normal. The estimated ejection fraction is 60 %. Mild concentric left ventricular hypertrophy. Structurally normal valves. Ordering Physician: Madhuri Galaviz Referring Physician: [facility] Performed By: Mar Sevilla RDCS Brain MRI 07/31/23 17:30 IMPRESSION: 1. No intracranial mass, hemorrhage, or acute territorial infarct. 2. Maxillary sinus disease with complete opacification of maxillary antra bilaterally. Mild ethmoid mucosal thickening. Electronically Signed: Arcenio Valladares MD at 19:14 EDT , Physical Exam Narrative GENERAL: cooperative HEENT: Atraumatic; normocephalic EYES; Anicteric, Normal Conjunctiva NECK; supple, normal thyroid, RESPIRATORY: Diminished to auscultation CARDIOVASCULAR: Regular S1 S2, GI: soft, normoactive bowel sounds, : No Renal angle tenderness; EXTREMITIES: No edema, no clubbing, MUSCULOSKELETAL: no muscle wasting NEURO: Awake; muscle strength 2/5 in RLE and 4/5 in theRUE SKIN: No Rash PSYCH; Flat affect Assessment & Plan Assessment/Plan (1) Acute CVA (cerebrovascular accident): PLAN: Plan Patient is a 58-year-old gentleman with history of previous CVA who presented with right-sided weakness facial droop as well as slurred speech. 1. Acute ischemic CVA with right-sided weakness ? Patient did receive TNK admitted to the intensive care unit. Subsequently monitored with permissive hypertension, every 4 neurochecks with MRI and echo ordered. Plan is to resume antiplatelet therapy 24 hours after administration of TNK ? 08/01/2023;MRI obtained the day prior demonstrated no intracranial mass, hemorrhage, or acute territorial infarct. Patient still has significant right- sided deficit. Patient scheduled to undergo modified barium swallow by speech therapy 2. Parkinson's disease ?on carbidopa levodop,Inbrija 42 mg capsule 3. Essential hypertension ? Permissive hypertensive management in place given patient acute ischemic CVA 4. Dyslipidemia ? Patient is on high intensity statin therapy 5. Depression with anxiety Did continue home meds 6. Diabetes mellitus type II -patient's oral hypoglycemics held. Placed on long acting insulin, Accu-Cheks a.c. and at bedtime and covered with sliding scale insulin 7. Restless leg syndrome ? Patient is on gabapentin at night 8. Acute maxillary sinusitis ? CT finding patient remains asymptomatic 9. DVT prophylaxis ? SCDs for now with patient having received TNK Time spent in the patient's overall evaluation,decision-making process, review of diagnostic data, adjustment of management, discussion with other providers, nursing nursing and ancillary staff involved in patient's care documentation, 40 Minutes Charges/Coding Visit Charges Inpatient E&M: 41774 Subs Hosp L2
[2023-08-01] MEDS: LEVODOPA 42 MG 84 MG INHALATION ×3 (09:39→16:51)
[2023-08-01] MEDS: Empagliflozin 25 MG Tablet 12.5 MG PO (09:39)
[2023-08-01] MEDS: DULoxetine Hcl 60 MG Capsule 120 MG PO (09:39)
[2023-08-01] MEDS: Psyllium 1 PACKET PO ×2 (09:40→21:00)
[2023-08-01] MEDS: Famotidine 20 MG Tablet PO ×2 (09:40→20:59)
--- NOTE | 2023-08-01 12:36 | SP.MBSS_ITS ---
Modified Barium Swallow Patient Information Study Date: 08/01/23 Study Time: 12:25 Direct Billable Minutes: 109 Total Minutes procedure & reportin Diagnosis: CVA I63.9; Hx of Parkinson's disease Z86.69 Referring Physician: Jake Cox Reason for Referral: Objectively assess swallow function, assess risk for aspiration, and determine recommendations for least restrictive diet textures and compensatory strategies to improve safety of swallow. Medical History: Patient is a 58-year-old gentleman who presented to the ED with concerns regarding acute stroke w/ right-sided facial droop and upper/lower extremity weakness. Given his presentation, received tenecteplase in the ED. His CT head and CVA did not show any acute bleed. The case was discussed with the stroke center and [facility] - a decision was made to start him on TNK. He is being admitted post tenecteplase therapy for further evaluation and management. There has been some improvement in his weakness after the tenecteplase. ST has been consulted per CVA protocol. BSE recommended regular textures / thin liquids with plan for MBSS to further assess swallow function and aspiration risk. Patient feels sensation of food get caught in his throat intermittently. Brain MRI 07/31/23 IMPRESSION: 1. No intracranial mass, hemorrhage, or acute territorial infarct. 2. Maxillary sinus disease with complete opacification of maxillary antra bilaterally. Mild ethmoid mucosal thickening. He has a significant past medical history of prior TIA/CVA and is on Plavix, type 2 diabetes, dyslipidemia, BRITTANY, obesity with a BMI of 33, Parkinson's disease for which she is on Rytary and Inbrija, SLE, colon diverticulitis, BPH, generalized osteoarthritis. He was previously admitted to [facility] on 03/17/2023 to 03/20/2023 for recurrent chest pain. At the time AR was ruled out or ruled out with serial cardiac enzymes. His left heart catheterization did not demonstrate any obstructive lesions. Current Diet Ordered: Regular textures / Thin liquids Dentition: WNL and Natural Teeth Mental Status: WNL (Responded appropriately in conversation and followed commands to complete evaluation; however, significant aphasia per ST evaluation 07/31/23.) Respiratory Status: Oxygenating on Room Air Penetration-Aspiration Scale Penetration-Aspiration Scale: OBJECTIVE ASSESSMENT OF SWALLOW FUNCTION (QUANTITATIVE ? PER TRIAL): PENETRATION / ASPIRATION SCALE (CASTAÑEDA): 1 = does not enter airway 2 = enters airway/above vocal folds/ejected 3 = enters airway/above vocal folds/not ejected 4 = enters airway/contacts vocal folds/ejected 5 = enters airway/contacts vocal folds/not ejected 6 = enters airway/below vocal folds/ejected 7 = enters airway/below vocal folds/not ejected despite effort 8 = enters airway/below vocal folds/no effort VIDEOFLOROSCOPIC SCALE SCORE (CASTAÑEDA): Grade I = aspiration of material that has penetrated into the laryngeal vestibule, intact cough reflex Grade II = aspiration < 10 % of the bolus, intact cough reflex Grade III = aspiration of < 10 % of the bolus, reduced cough reflex or aspiration of > 10 % of the bolus, intact cough reflex Grade IV = aspiration of > 10 % of the bolus, reduced cough reflex Penetration-Aspiration Scale Score Thin Liquid via teaspoon: Result: 1= does not enter airway Thin Liquid via teaspoon Trial 2: Result: 1= does not enter airway Thin Liquid via sequential sips: cup: Result: 2= enter airway/above vocal folds/ejected Comment: Esophageal screen - Complete clearance. Literberry Thick Liquid via small single sip: cup: Result: 7= enters airways/below vocal folds/not ejected despite effort Pudding via teaspoon: Result: 1= does not enter airway Comment: Esophageal screen - Complete clearance. 1/2 Cookie: Result: 1= does not enter airway Comment: Esophageal screen - Retention of cookie with retrograde flow. Thin Liquid via single sip: straw: Result: 1= does not enter airway Comment: Esophageal screen - Complete clearance. Thin Liquid via sequential sips:straw: Result: 2= enter airway/above vocal folds/ejected Oral Phase Labial Seal: No Labial Escape Tongue Control During Bolus Hold: Posterior escape of less than half of bolus Bolus Preparation/Mastication: Timely and efficient chewing and mashing Bolus Transport/Lingual Motion: Delayed initiation of tongue motion Oral Residue: Trace residue lining oral structures Pharyngeal Phase Initiation of Pharyngeal Swallow: Bolus head in pyriforms (escape of mildly/nectar thick liquids to the trachea before swallow onset) Soft Palate Elevation: Trace column of contrast/air between soft palate and pharyngeal wall Laryngeal Elevation: Partial superior movement thyroid cart/partial apprx aryt- epig petiole Anterior Hyoid Excursion: Partial anterior movement Epiglottic Movement: Complete inversion Laryngeal Vestibule Closure at Height of Swallow: Incomplete; narrow column of air/contrast in laryngeal vestibule Pharyngeal Stripping Wave: Present - diminished Pharyngoesophageal Segment Opening: Complete distension and complete duration; no obstruction of flow Tongue Base Retraction: Narrow column of contrast between tongue base & post. pharyngeal wall Pharyngeal Residue: Trace residue within or on pharyngeal structures Esophageal Phase Esophageal Clearance: Esophageal retention w/ retrograde flow below pharyngoesophageal seg. Diagnosis/Impression Diagnosis: Mild oropharyngeal dysphagia R13.12 Impression: The oral phase is primarily marked by... -Decreased bolus control with <1/2 of the mildly/nectar thick bolus spilling posteriorly to the trachea prior to swallow onset. -Delayed tongue motion for A-P transport. The pharyngeal phase is primarily marked by... -Mildly decreased tongue base retraction and mildly decreased pharyngeal stripping wave; however, only trace pharyngeal residue after the swallow. -Aspiration of mildly/nectar thick liquids via cup before the swallow due to premature posterior loss resulting in coughing episode. Trace laryngeal penetrat ion with full ejection of sequential sips of thin liquids via cup and straw. The esophageal phase is primarily marked by... -Esophageal retention of cookie with min retrograde flow, which fully cleared when provided a thin liquid wash. Recommendations Diet: Regular Textures and Thin Liquids Compensatory Strategies: Small Bites, Small Sips, Slow Rate, Alternate bites/solids and sips/liquids (Sip after every 1-2 bites), Sitting upright and Remain sitting upright for 30 minutes after PO intake Supervision: Distant Supervision Recommend Repeat Modified Barium Swallow: TBD Need for Skilled Speech Therapy Services: Yes Comment: -Train the patient in use of strategies to decrease risk for aspiration and reflux aspiration. -Ongoing assessment of diet tolerance of recommended textures. -Train the patient in oropharyngeal exercise program to improve bolus control, swallow onset, and tongue base retraction (lingual resistance, Indu, Fiorella). Recommend maintenance home exercise program due to diagnosis of PD and risk for worsening dysphagia and aspiration risk with disease progression. Recommended Referrals: GI Consult (GI consult as an OP, especially if the patient feels increased sensation of food retention, s/s of reflux, or regurgitation.) Education Completed: 1. Described result of evaluation., 2. Pt understands evaluation & agrees with goals and treatment plan. and 7. Pt requires further education on strategies & risks. Status Active ST Patient: Active Contact Information [facility]:: Paula Davalos M.A. CCC-PRODUCT STRATEGY DIRECTOR? Speech-Language Pathologist?? [place] [address] [address]?? [place] [address]?? [email or web address]?? [phone]
--- NOTE | 2023-08-01 12:54 | STROKE.CONS ---
Assessment and Plan: Stroke Assessment/Plan KRISHAN BURNHAM is a 58 M with a history of PD, prior stroke who presents for evaluation of stroke s/p TNK. Pt has been having recurrently symptoms of R sided weakness with prodrome of numbness, headache and confusion. In the setting of recurrent stereotyped symptoms and negative MRIs (granted in setting of thrombolytics, however symptoms generally last longer than 24 hrs), there is some concern for non-cerebrovascular causes of stroke including possible seizure. RECOMMENDATIONS: - Admit to Neurological intensive care unit - Post IVtNK order sets - Post- procedure CT brain - TTE wnl, recommend VELMA to further evaluate for structural abnormalities that could lead to recurrent strokes. - routine EEG in the hospital - LDL 56, A1C 5.5 - Occupational/Physical therapy consult - DVT prophylaxis with SCDs and heparin SQ - NPO until swallow evaluation. IVF - Permissive hypertension to goal SBP < 180 mm Hg - Anti-platelet medication : Aspirin 325 mg daily - Vascular risk factor modification: - Hyperlipidemia: LDL Goal < 70 mg/dL - Smoking Cessation - Diabetes management Unclear if stroke, recommend HPI Consult Data Date of Consult: 08/01/23 HPI Narrative HPI Narrative: KRISHAN BURNHAM, is a 58 M who presents with slowed and difficult speech and RSW. Patient does have a history of Parkinson's as well as 3 prior ischemic strokes. He is currently on Plavix but no other form of anticoagulation. For this episode, states that they were at the store around 4:00 and he states that he felt weak and needed to go to the car to sit down. They got home and he was able to get into the house. She took the dog out and when she came back and at 415 he was very slow to answer questions with difficulty with speech as well as right-sided weakness. Patient was met at the EMS entrance and quickly examined. He was sent immediately to CT. I did review his prior records. His most recent stroke was in December of last year with similar symptoms. He did receive TNK at that time. Yesterday he also received TNK. Did not have a fall, was walking when symptoms started. Started with numbness on the R face and had difficulty speaking. There is always face tingling and headache, there is always weakness on the R side as well with these symptoms. He currently still has R sided weakness. In the past, repeated R sided weakness has lasted > 24 hrs occasionally and there has not been stroke on MRIs. Was told by his neurologist that there is something in the cristofer but based on evaluation on the MRIs, nothing is clearly present. Re his PD, he is diagnosed based on rigidity and RUE tremors which are well controlled on Rytary. [facility] Medical History Acute stroke due to ischemia Lupus Wears glasses Diabetes History of hiatal hernia CPAP (continuous positive airway pressure) dependence Acute cerebrovascular accident (CVA) due to ischemia Type 2 diabetes mellitus COVID-19 vaccine series completed Borderline type 2 diabetes mellitus Former smoker Hypertension Hyperlipidemia HLD (hyperlipidemia) HTN (hypertension) Parkinsons disease Chest pain GERD (gastroesophageal reflux disease) Constipation Sleep apnea Depression with anxiety Abdominal pain Diverticulitis Home Medications ?Medication ?Instructions ?Recorded ?Last Taken ?Type melatonin 3 mg tablet 9 mg PO QHS SLEEP 05/12/19 03/15/23 History trazodone 100 mg tablet 200 mg PO QHS SLEEP 05/12/19 03/16/23 History famotidine 20 mg tablet 20 mg PO BID GERD 02/17/20 03/16/23 History levodopa 42 mg capsule with 84 mg inhalation 0900,1300,1700 02/16/21 03/16/23 History inhalation device (Inbrija) PARKINSONS propranolol 10 mg tablet 10 mg PO BID HYPERTENSION 02/16/21 03/16/23 History carbidopa ER 36.25 mg-levodopa 145 4 cap PO 4X/DAY Parkinsons 11/30/21 03/16/23 History mg capsule,extended release (Rytary) cholecalciferol (vitamin D3) 50 50 mcg PO DAILY SUPPLEMENT 11/30/21 03/16/23 History mcg (2,000 unit) tablet diltiazem HCl 60 mg tablet 60 mg PO BID HYPERTENSION/AGINA 11/30/21 03/16/23 History empagliflozin 25 mg tablet 12.5 mg PO DAILY DIABETES 11/30/21 03/16/23 History (Jardiance) omega-3 fatty acids 1,000 mg PO DAILY SUPPLEMENT 11/30/21 03/16/23 History prazosin 5 mg capsule 10 mg PO QHS HYPERTENSION 11/30/21 03/15/23 History rosuvastatin 20 mg tablet 20 mg PO QHS HIGH CHOLESTEROL 11/30/21 03/16/23 History duloxetine 60 mg capsule,delayed 120 mg PO DAILY DEPRESSION 03/29/22 03/16/23 History release clopidogrel 75 mg tablet 75 mg PO DAILY BLOOD THINNER #21 01/12/23 03/16/23 Rx tabs clonazepam 0.5 mg tablet 0.5 mg PO QHS PANIC ATTACKS 03/16/23 03/14/23 History diclofenac sodium 1 % topical gel 4 g topical BID PRN OSTEOARTHRITIS 03/16/23 Unknown History gabapentin 300 mg capsule 300 mg PO QHS RESTLESS LEG SYNDROME 03/16/23 03/15/23 History lidocaine 5 % topical patch 1 patch topical DAILY PRN SEVERE 03/16/23 Unknown History PAIN sildenafil 100 mg tablet 100 mg PO DAILY PRN sexual activity 03/16/23 Unknown History icosapent ethyl 1 gram capsule 2 g PO BID 07/30/23 Unknown History testosterone cypionate 200 mg/mL 200 mg IM .[id number] 07/30/23 Unknown History intramuscular oil (Depo-Testosterone) Allergy/AdvReac Type Severity Reaction Status Date / Time No Known Allergies Allergy Verified 07/30/23 17:20 Family History Mother Heart disease Hypertension High cholesterol Cancer skin cancer Father Heart disease High cholesterol Hypertension CVA (cerebral vascular accident) Surgical History S/P arthroscopic surgery of left knee History of colectomy (~02/2020) History of laparoscopic cholecystectomy History of appendectomy Social History household members: spouse number of children: 5 current occupational status: unemployed Smoking Status: Former smoker how long ago did patient quit smoking: Quit ~ 15 years prior, smoked socially only. alcohol intake: never substance use type: does not use Vital Signs Vital Signs Vital Signs: 07/31/23 13:00 07/31/23 14:00 07/31/23 15:00 Temperature Temperature Source Pulse Rate 68 65 70 Pulse Strength Respiratory Rate 15 14 16 Blood Pressure 145/86 H 132/75 H 135/69 H Blood Pressure Mean 103 92 88 Blood Pressure Source Monitor Monitor Monitor Blood Pressure Position Semi-Fowlers Semi-Fowlers Semi-Fowlers Blood Pressure Location Right Arm Right Arm Right Arm Pulse Ox 95 95 96 Oxygen Delivery Method Room Air Room Air Room Air 07/31/23 16:00 07/31/23 17:00 07/31/23 18:37 Temperature 97.1 F L Temperature Source Temporal Pulse Rate 65 73 68 Pulse Strength Respiratory Rate 13 14 14 Blood Pressure 135/76 H 144/84 H 144/80 H Blood Pressure Mean 95 100 101 Blood Pressure Source Monitor Monitor Monitor Blood Pressure Position Semi-Fowlers Semi-Fowlers Semi-Fowlers Blood Pressure Location Right Arm Right Arm Right Arm Pulse Ox 96 96 96 Oxygen Delivery Method Room Air Room Air Room Air 07/31/23 18:37 07/31/23 20:00 07/31/23 22:00 Temperature 98.1 F Temperature Source Oral Pulse Rate 66 Pulse Strength Normal (2+) Respiratory Rate 12 Blood Pressure 144/80 H 133/77 H Blood Pressure Mean 95 95 Blood Pressure Source Monitor Monitor Blood Pressure Position Sitting Blood Pressure Location Right Arm Pulse Ox 95 Oxygen Delivery Method Room Air 08/01/23 00:00 08/01/23 00:00 08/01/23 04:00 Temperature 98.1 F 98.4 F Temperature Source Temporal Temporal Pulse Rate 70 71 55 L Pulse Strength Respiratory Rate 18 18 10 L Blood Pressure 106/61 106/61 105/62 Blood Pressure Mean 76 76 76 Blood Pressure Source Monitor Monitor Monitor Blood Pressure Position Semi-Fowlers Semi-Fowlers Semi-Fowlers Blood Pressure Location Right Arm Right Arm Right Arm Pulse Ox 94 94 95 Oxygen Delivery Method Room Air Room Air Room Air 08/01/23 08:00 08/01/23 12:00 08/01/23 12:45 Temperature 98.3 F 98.2 F Temperature Source Oral Oral Pulse Rate 70 76 Pulse Strength Respiratory Rate 17 17 Blood Pressure 124/74 H 124/77 H Blood Pressure Mean 90 92 Blood Pressure Source Monitor Monitor Blood Pressure Position Sitting Sitting Blood Pressure Location Right Arm Right Arm Pulse Ox 95 97 97 Oxygen Delivery Method Room Air Room Air Room Air Weight Weight: 102.2 kg Body Mass Index (BMI) 31.4 EEG Results Procedure Details EEG Procedure Details: KRISHAN BURNHAM is a 58 year old M with a past medical history of , who presents for evaluation of Electroencephalogram on DATE at TIME NIHSS NIHSS Nursing Documentation NIHSS Nursing Documentation: NIHSS: Ischemic Stroke/TIA Start: 07/30/23 19:12 Text: For ICU Patients: NIH sroke scale at Status: Active presentation and every 2 hours or with change in RN caregiver Freq: Q4H Protocol: Activity Type Activity Date Activity User E-sign Co-sign Detail Recorded Client Recorded Date Recorded By Document 08/01/23 12:00 HN [id number] 08/01/23 12:43 HNG 08/01/23 12:00 NIH Stroke Scale [NIHSS] A score of 0 is normal or asymptomatic . Total possible score is 42. Inpatient: RN or Physician to activate a stroke alert for onset of new stroke symptoms or with NIHSS increase >/= 3 points. Following change in neurological status, NIHSS will be performed per physician order or more frequently PRN. -1a. Level of Consciousness Alert; keenly responsive -1b. LOC Questions Answers BOTH questions correctly. -1c. LOC Commands Performs both tasks correctly . -2. Best Gaze Normal -3. Visual Partial hemianopia -4. Facial Palsy Normal symmetrical movements -5a. Left Arm No drift; arm holds 90 (or 45 ) degrees for full 10 seconds -5b. Right Arm No drift; arm holds 90 (or 45 ) degrees for full 10 seconds -6a. Left Leg No drift; leg holds 30-degree position for full 5 seconds -6b. Right Leg Drift; leg falls by the end of 5- seconds, but does not hit bed -7. Limb Ataxia Absent -8. Sensory Mild-to- moderate sensory loss; -9. Best Language Mild-to- moderate aphasia; -10. Dysarthria Normal -11. Extinction and Inattention No abnormality -Total 4 Query Text:A score of 0 is normal or asymptomatic. Total possible score is 42 . ED: Notify Physician for NIHSS increase by > / = 3 points. Inpatient: RN or Physician to activate a stroke alert for NIHSS increase of > / = 3 points. Thrombolytic: Vital Signs & NIHSS Start: 07/30/23 17:19 Text: Assess and document vital signs and NIHSS Status: Complete within 15 minutes of tenecteplase bolus administration Freq: [id number],Q2H Protocol: Activity Type Activity Date Activity User E-sign Co-sign Detail Recorded Client Recorded Date Recorded By Document 07/30/23 19:19 EY [id number] 07/30/23 19:23 EY 07/30/23 19:19 Vital Signs [Pulse] -Pulse Rate (60-100) 78 -Pulse Location Monitor [Respirations] -Respiratory Rate (12-18) 12 -Respiratory rate source Monitor -Pulse Oximetry 95 -Oxygen Delivery Method Room Air [Blood Pressure] -Blood Pressure (90/60-120/80) 136/72 H -Blood Pressure Mean 93 -Source Monitor -Position Semi-Fowlers -Blood Pressure Location Left Arm -Is the SBP > or = 180 No -Is the DBP > or = 105 No NIH Stroke Scale [NIHSS] A score of 0 is normal or asymptomatic . Total possible score is 42. Inpatient: RN or Physician to activate a stroke alert for onset of new stroke symptoms or with NIHSS increase >/= 3 points. Following change in neurological status, NIHSS will be performed per physician order or more frequently PRN. -1a. Level of Consciousness Alert; keenly responsive -1b. LOC Questions Answers BOTH questions correctly. -1c. LOC Commands Performs both tasks correctly . -2. Best Gaze Normal -3. Visual Partial hemianopia -4. Facial Palsy Minor paralysis (flattened nasolabial fold , asymmetry on smiling) -5a. Left Arm No drift; arm holds 90 (or 45 ) degrees for full 10 seconds -5b. Right Arm Drift; arm drifts downward but doesn?t hit the bed -6a. Left Leg No drift; leg holds 30-degree position for full 5 seconds -6b. Right Leg Some effort against gravity ; -7. Limb Ataxia Present in 2 limbs -8. Sensory Mild-to- moderate sensory loss; -9. Best Language Mild-to- moderate aphasia; -10. Dysarthria Normal -11. Extinction and Inattention No abnormality -Total 9 Query Text:A score of 0 is normal or asymptomatic. Total possible score is 42 . ED: Notify Physician for NIHSS increase by > / = 3 points. Inpatient: RN or Physician to activate a stroke alert for NIHSS increase of > / = 3 points. NIHSS 1a. Level of Consciousness: Alert; keenly responsive 1b. LOC Questions: Answers BOTH questions correctly. 1c. LOC Commands: Performs both tasks correctly. 2. Best Gaze: Normal 3. Visual: No visual loss 4. Facial Palsy: Normal symmetrical movements 5a. Left Arm: No drift; arm holds 90 (or 45) degrees for full 10 seconds 5b. Right Arm: No drift; arm holds 90 (or 45) degrees for full 10 seconds 6a. Left Leg: No drift; leg holds 30-degree position for full 5 seconds 6b. Right Leg: Drift; leg falls by the end of 5-seconds, but does not hit bed 7. Limb Ataxia: Absent 8. Sensory: Normal; no sensory loss 9. Best Language: No aphasia; normal Total: 1 Physical Exam Narrative -? General: Laying comfortably in bed; in no acute distress. -? HENT: Normal oropharynx and mucosa. Normal external appearance of ears and nose. Exophthalmos. -? Neck: Supple, no pain or tenderness -? CV:? No peripheral edema. -? Pulmonary:? Normal respiratory effort. -? Ext: No cyanosis, edema, or deformity -? Skin: No rash. Normal palpation of skin.? -? Musculoskeletal: full range of motion; no joint tenderness. Normal digits and nails by inspection. No clubbing. -? NEURO: -? Mental Status: The patient was alert and oriented to time, place, and person. Normal recent/remote memory, concentration, and general fund of knowledge. -? Language: speech is clear.? Naming, repetition, fluency, and comprehension intact. -? Cranial Nerves: EOMI, visual robles full, no facial asymmetry, facial sensation intact, hearing intact -? Motor: normal bulk, tone, and strength throughout. +Pronation of the RUE. b/l LE antigravity -? Tone: is normal and bulk is normal -? Sensation- Intact to light touch bilaterally -? Coordination: No dysmetria on [id number], finger follow finger or [id number]. -? Gait- deferred Lab / Micro Data 08/01/23 03:00 08/01/23 03:00 Labs: Laboratory Results - last 24 hr 08/01/23 03:00: WBC 7.3, RBC 4.99, Hgb 14.4, Hct 43.8, MCV 87.8, MCH 28.9, MCHC 32.9, RDW Std Deviation 39.4, RDW Coeff of Gail 12.4, Plt Count 136 L, MPV 9.9, Immature Gran % (Auto) 0.300, Neut % (Auto) 68.2, Lymph % (Auto) 18.6 L, Duval % (Auto) 9.7, Eos % (Auto) 2.7, Baso % (Auto) 0.5, Absolute Neuts (auto) 5.0, Absolute Lymphs (auto) 1.36, Nucleated RBC % 0, Sodium 138, Potassium 3.7, Chloride 107, Carbon Dioxide 29.0, Anion Gap 2 L, BUN 14, Creatinine 0.96, Estim Creat Clear Calc 101.05, Est GFR (MDRD) Af Amer 104, Est GFR (MDRD) Non-Af 86, BUN/Creatinine Ratio 14.6, Glucose 134 H, Calcium 8.6, Phosphorus 4.3, Magnesium 2.2 Imaging Radiology Impression Echocardiogram 07/30/23 19:11 Interpretation Summary Normal LV size. Left ventricular systolic function is normal. The estimated ejection fraction is 60 %. Mild concentric left ventricular hypertrophy. Structurally normal valves. Ordering Physician: Madhuri Galaviz Referring Physician: [facility] Performed By: Mar Sevilla RDCS Brain MRI 07/31/23 17:30 IMPRESSION: 1. No intracranial mass, hemorrhage, or acute territorial infarct. 2. Maxillary sinus disease with complete opacification of maxillary antra bilaterally. Mild ethmoid mucosal thickening. Electronically Signed: Krishan Valladares MD at 19:14 EDT , Active Medications Active Medications Active Medications: Current Medications Generic Name Dose Route Start Last Admin Trade Name Freq PRN Reason Stop Dose Admin Acetaminophen 650 mg 07/30/23 19:12 07/31/23 21:21 Acetaminophen 325 Mg Tablet PO 650 mg Q6H PRN PRN Administration Pain 1-10 Or Fever >100.7 Atorvastatin Calcium 40 mg 07/30/23 22:00 07/31/23 21:22 Atorvastatin Calcium 40 Mg Tablet PO 40 mg QHS TAN Administration Carbidopa/Levodopa 4 each 07/31/23 19:00 08/01/23 12:30 Carbidopa/Levodopa 1 Each Capsule.Er PO 4 each 0700,1100,1500,1900 TAN Administration Clonazepam 0.5 mg 07/30/23 22:00 07/31/23 21:20 Clonazepam 0.5 Mg Tablet PO 0.5 mg QHS TAN Administration Duloxetine HCl 120 mg 07/31/23 10:00 08/01/23 09:39 Duloxetine Hcl 60 Mg Capsule PO 120 mg DAILY TAN Administration Empagliflozin 12.5 mg 07/31/23 10:00 08/01/23 09:39 Empagliflozin 25 Mg Tablet PO 12.5 mg DAILY TAN Administration Famotidine 20 mg 07/30/23 22:00 08/01/23 09:40 Famotidine 20 Mg Tablet PO 20 mg BID TAN Administration Gabapentin 300 mg 07/30/23 22:00 07/31/23 21:20 Gabapentin 300 Mg Capsule PO 300 mg QHS TAN Administration Sodium Chloride 250 mls @ 15 mls/hr 07/30/23 19:39 IV .[id number] PRN Additional IVPB Infusion Sodium Chloride 250 mls @ 15 mls/hr 07/30/23 19:39 IV .[id number] PRN Saline Flush Levodopa 84 mg 08/01/23 09:00 08/01/23 09:39 Levodopa 42 Mg Capsule INHALATION 84 mg 0900,1300,1700 TAN Administration Lorazepam 1 mg 07/31/23 10:34 Lorazepam 2 Mg/Ml Syringe IV Q6H PRN PRN ANXIETY Melatonin 9 mg 07/30/23 22:00 07/31/23 21:22 Melatonin 3 Mg Tablet PO 9 mg QHS TAN Administration Morphine Sulfate 2 mg 07/30/23 21:11 07/31/23 17:44 Morphine 2 Mg/Ml Syringe IV 2 mg Q4H PRN PRN Administration Pain Score 6-10 Ondansetron HCl 4 mg 07/31/23 10:34 07/31/23 17:07 Ondansetron 4 Mg/2 Ml Vial IV 4 mg Q6H PRN PRN Administration NAUSEA/VOMITING Oxycodone HCl 5 mg 07/30/23 19:12 07/31/23 21:20 Oxycodone 5 Mg Tablet PO 5 mg Q4H PRN PRN Administration Pain Score 4-10 Psyllium Hydrophilic Mucilloid 1 packet 07/31/23 22:00 08/01/23 09:40 Psyllium 1 Packet PO 1 packet BID TAN Administration Sodium Chloride 10 - 40 ml 07/30/23 19:39 08/01/23 06:51 0.9% Saline Lock 10 Ml Syringe IV 10 ml UD PRN Administration SALINE FLUSH Trazodone HCl 200 mg 07/30/23 22:00 07/31/23 21:22 Trazodone 100 Mg Tablet PO 200 mg QHS TAN Administration
--- NOTE | 2023-08-01 14:08 | CASEMGMT ---
MONICA BOONE in to discuss needs at discharge. MONICA BOONE reviewed progress with therapy and recommendations for rehab at discharge. MONICA BOONE discussed rehab with patient and he is agreeable. Patient prefers [facility] Acute Rehab and declines list. Patient had no further questions or concerns. SW updated regarding request for [facility] Acute Rehab.
--- NOTE | 2023-08-01 14:14 | CASEMGMT ---
SW asked [facility] to review patient for Acute Rehab. Christina Garcia SEWING MACHINE OPERATOR [employer]AG[employer] ANA ROSA
--- NOTE | 2023-08-01 15:07 | CASEMGMT ---
SW met with patient. SW let patient know that SW did make a referral to the Acute Rehab Unit. SW did explain SW may not have an answer for patient today. SW explained once the physician accepts patient his insurance will have to approve. SW explained to patient he may not leave until . SW also gave patient information on [facility] stroke support group. SW provided emotional support to patient as well. Plan: d/c to [facility] Acute Rehab pending acceptance and insurance approval. Christina Garcia STOCK SUPERVISORAlejandra OSEGUERA
[2023-08-01] MEDS: traZODone 100 MG Tablet 200 MG PO (20:59)
[2023-08-01] MEDS: MELATONIN 3 MG TABLET 9 MG PO (20:59)
[2023-08-01] MEDS: Atorvastatin Calcium 40 MG Tablet PO (20:59)
[2023-08-01] MEDS: clonazePAM 0.5 MG Tablet PO (20:59)
[2023-08-01] MEDS: Gabapentin 300 MG Capsule PO (21:00)
[2023-08-02 03:15] VITALS: BP 112/73; PULSE 85; RESP 16; TEMP 36.2; O2SAT 95
[2023-08-02 04:48] VITALS: BMI 31.6
[2023-08-02] MEDS: CARBIDOPA/LEVODOPA 1 EACH CAPSULE.ER 4 EACH PO ×3 (06:05→15:03)
[2023-08-02 06:12] LABS: Absolute Lymphocyte Count 1.53 X10^3/uL (0.83-4.51); Absolute Neutrophil Count 4.5 X10^3/uL (2.0-7.7); Basophil# 0.05 X10^3/uL; Basophil% 0.7 % (0-1); Eosinophils% 2.9 % (0-5); Hematocrit 46.3 % (40-54); Hemoglobin 15.1 g/dL (13.0-16.5); Lymphocyte # 1.53 X10^3/ul (0.83-4.51); Lymphocyte % 21.9 % (19-41); Mean Corp Hgb Conc 32.6 g/dL (32-36); Mean Corpuscular Hgb 28.8 pg (27.0-32.0); Mean Corpuscular Volume 88.4 fL (80-94); Mean Platelet Vol. 10.1 fl (6.2-12.0); Monocyte# 0.72 X10^3/uL; Monocyte% 10.3 % (0-10); NRBC Flagged by Analyzer 0 % (0-5); Neutrophil # 4.46 X10^3/uL (2.7-7.7); Neutrophil % 63.9 % (47-70); Platelet Count 143 K/mm3 (150-450); RBC Distribution Width CV 12.4 % (11.6-14.6); RBC Distribution Width SD 40.1 fl (35.1-43.9); Red Blood Count 5.24 M/mm3 (4.6-6.2)
--- NOTE | 2023-08-02 07:42 | CASEMGMT ---
[facility] Acute Rehab can accept patient and [facility] will start pre-cert. SW will notify patient and physician. Christina OSEGUERA
[2023-08-02 07:57] VITALS: O2SAT 96
[2023-08-02 08:54] LABS: Anion Gap 6 (5-15); BUN 16 mg/dL (7-18); BUN/Creat Ratio 16.4 RATIO (10-20); Calcium,Total 8.8 mg/dL (8.5-10.1); Chloride 107 mmol/L (98-107); Creatinine, Serum 0.98 mg/dL (0.70-1.30); EST Glomerular Filtration Rate 84 mL/min (>60); Est Glom Filt Rate - Afr Amer 101 mL/min (>60); Estimated Creatinine Clearance 100.38 ml/min; Glucose 114 mg/dL (74-106); Potassium 3.8 mmol/L (3.5-5.1); Sodium Level 139 mmol/L (136-145)
[2023-08-02 09:12] VITALS: BP 138/78; PULSE 68; RESP 18; TEMP 36.4; O2SAT 100
[2023-08-02] MEDS: LEVODOPA 42 MG 84 MG INHALATION ×2 (09:14→12:48)
[2023-08-02] MEDS: Psyllium 1 PACKET PO (09:14)
[2023-08-02] MEDS: Famotidine 20 MG Tablet PO (09:14)
[2023-08-02] MEDS: Empagliflozin 25 MG Tablet 12.5 MG PO (09:14)
[2023-08-02] MEDS: DULoxetine Hcl 60 MG Capsule 120 MG PO (09:15)
--- NOTE | 2023-08-02 09:19 | CASEMGMT ---
SW notified patient Acute Rehab is able to take him pending his insurance approving. Plan: [facility] Acute Rehab pending insurance approval. Christina OSEGUERA
--- NOTE | 2023-08-02 09:35 | PN.HOSP_ITS ---
Reason for Visit Reason for Visit: Diagnoses Cerebral infarction, unspecified (07/30/23) Subjective Subjective Patient seen had a relatively uneventful night. Case was discussed with Dr. Rm with teleneuro the day prior recommended for patient to undergo subsequent evaluation with an EEG. Patient also being evaluated for possible transfer to the inpatient rehab. Objective Data Objective Data Vital Signs: Vital Signs Temp Pulse Resp BP Pulse Ox O2 Del Method 97.5 F L 68 18 138/78 H 100 Room Air 08/02/23 09:12 08/02/23 09:12 08/02/23 09:12 08/02/23 09:12 08/02/23 09:12 08/02/23 09:12 Oxygen Delivery Method Room Air Weight: 103 kg Body Mass Index (BMI) 31.6 Intake & Output: Intake and Output for Last 24 Hours 07/31/23 08/01/23 08/02/23 23:59 23:59 23:59 Intake Total 4005 / 4255 1230 / 1230 Output Total 2850 / 3150 1400 / 1400 Balance 1155 / 1105 -170 / -170 Lab / Micro Data 08/02/23 05:18 08/02/23 05:18 Labs: Laboratory Results - last 24 hr 08/02/23 05:18: WBC 7.0, RBC 5.24, Hgb 15.1, Hct 46.3, MCV 88.4, MCH 28.8, MCHC 32.6, RDW Std Deviation 40.1, RDW Coeff of Gail 12.4, Plt Count 143 L, MPV 10.1, Immature Gran % (Auto) 0.300, Neut % (Auto) 63.9, Lymph % (Auto) 21.9, [place] % (Auto) 10.3 H, Eos % (Auto) 2.9, Baso % (Auto) 0.7, Absolute Neuts (auto) 4.5, Absolute Lymphs (auto) 1.53, Nucleated RBC % 0, Sodium 139, Potassium 3.8, Chloride 107, Carbon Dioxide 26.0, Anion Gap 6, BUN 16, Creatinine 0.98, Estim Creat Clear Calc 100.38, Est GFR (MDRD) Af Amer 101, Est GFR (MDRD) Non-Af 84, BUN/Creatinine Ratio 16.4, Glucose 114 H, Calcium 8.8 Physical Exam Narrative GENERAL: cooperative HEENT: Atraumatic; normocephalic EYES; Anicteric, Normal Conjunctiva NECK; supple, normal thyroid, RESPIRATORY: Diminished to auscultation CARDIOVASCULAR: Regular S1 S2, GI: soft, normoactive bowel sounds, : No Renal angle tenderness; EXTREMITIES: No edema, no clubbing, MUSCULOSKELETAL: no muscle wasting NEURO: Awake; muscle strength 2/5 in RLE and 4/5 in theRUE SKIN: No Rash PSYCH; Flat affect Assessment & Plan Assessment/Plan (1) Acute CVA (cerebrovascular accident): PLAN: Plan Patient is a 58-year-old gentleman with history of previous CVA who presented with right-sided weakness facial droop as well as slurred speech. 1. Acute ischemic CVA with right-sided weakness ? Patient did receive TNK admitted to the intensive care unit. Subsequently monitored with permissive hypertension, every 4 neurochecks with MRI and echo ordered. Plan is to resume antiplatelet therapy 24 hours after administration of TNK ? 08/01/2023;MRI obtained the day prior demonstrated no intracranial mass, hemorrhage, or acute territorial infarct. Patient still has significant right- sided deficit. Patient scheduled to undergo modified barium swallow by speech therapy ? 08/02/2023 MRI was negative for acute CVA.Patient seen had a relatively uneventful night. Case was discussed with Dr. Rm with teleneuro the day prior recommended for patient to undergo subsequent evaluation with an EEG. Patient also being evaluated for possible transfer to the inpatient rehab. 2. Parkinson's disease ?on carbidopa levodop,Inbrija 42 mg capsule 3. Essential hypertension ? Permissive hypertensive management in place given patient acute ischemic CVA 4. Dyslipidemia ? Patient is on high intensity statin therapy 5. Depression with anxiety Did continue home meds 6. Diabetes mellitus type II -patient's oral hypoglycemics held. Placed on long acting insulin, Accu-Cheks a.c. and at bedtime and covered with sliding scale insulin 7. Restless leg syndrome ? Patient is on gabapentin at night 8. Acute maxillary sinusitis ? CT finding patient remains asymptomatic 9. DVT prophylaxis ? SCDs for now with patient having received TNK Time spent in the patient's overall evaluation,decision-making process, review of diagnostic data, adjustment of management, discussion with other providers, nursing nursing and ancillary staff involved in patient's care documentation, 35 minutes Charges/Coding Visit Charges Inpatient E&M: 88316 Subs Hosp L2
[2023-08-02] MEDS: Docusate Sodium 100 MG Capsule 200 MG PO (09:44)
--- NOTE | 2023-08-02 12:24 | CASEMGMT ---
Patient was approved for [facility] Acute Rehab Unit. SW notified patient and his . SW also let them know there is a good chance patient will go today. Plan: d/c to [facility] Acute Rehab Unit. Christina OSEGUERA
--- NOTE | 2023-08-02 14:24 | DS.PCM_ITS ---
Providers Date of Admission: 07/30/23 Date of Discharge: 08/02/23 Primary Care Physician: [facility] Consultations 07/30/23 17:19 Consult: [facility] Assessment / Pulmonary Medicine Routine Consulting Provider: Pulmonary Medicine eduardo Mccray Reason for Consult: stroke for thrombolytic administration EMERGENT Consult: Yes Notified: Yes Date Notified: 07/30/23 Time Notified: 17:19 Method of Notification: ED Physician Initiated Comments:: Consult may be done in ED or ICU 07/30/23 19:26 Consult: [facility] Assessment / Pulmonary Medicine Routine Consulting Provider: Intensivists/Pulmonary Med Reason for Consult: Acute stroke EMERGENT Consult: Yes MD Notified: Yes Date Notified: 07/30/23 Time Notified: 15:00 Method of Notification: ED Physician Initiated 07/31/23 13:08 SOC [Consult: Tele-Neurology] Routine Consulting Provider: [facility] Reason for Consult: CVA s/p tenectaplase EMERGENT Consult: No Notified: Yes Date Notified: 07/31/23 Time Notified: 13:10 Method of Notification: Answering Service Nursing Unit Staff Notify [facility] of Tele-Neurology Consult: Yes Reason For Visit: ACUTE STROKE Diagnosis Discharge Diagnosis (1) Acute CVA (cerebrovascular accident): Status: Acute Code(s): I63.9 - Cerebral infarction, unspecified Plan Patient is a 58-year-old gentleman with history of previous CVA who presented with right-sided weakness facial droop as well as slurred speech. 1. Acute ischemic CVA with right-sided weakness ? Patient did receive TNK admitted to the intensive care unit. Subsequently monitored with permissive hypertension, every 4 neurochecks with MRI and echo ordered. Plan is to resume antiplatelet therapy 24 hours after administration of TNK ? 08/01/2023;MRI obtained the day prior demonstrated no intracranial mass, hemorrhage, or acute territorial infarct. Patient still has significant right- sided deficit. Patient scheduled to undergo modified barium swallow by speech therapy ? 08/02/2023 MRI was negative for acute CVA.Patient seen had a relatively uneventful night. Case was discussed with Dr. Rm with teleneuro the day prior recommended for patient to undergo subsequent evaluation with an EEG. Patient also being evaluated for possible transfer to the inpatient rehab. -Patient was accepted for transfer to the inpatient rehab unit. Case was discussed with Dr. RM with teleneuro who recommended for patient to undergo Patient to undergo MRI of the brain with and without contrast on 08/04/2023 2. Parkinson's disease ?on carbidopa levodop,Inbrija 42 mg capsule 3. Essential hypertension ? Permissive hypertensive management in place given patient acute ischemic CVA 4. Dyslipidemia ? Patient is on high intensity statin therapy 5. Depression with anxiety Did continue home meds 6. Diabetes mellitus type II -patient's oral hypoglycemics held. Placed on long acting insulin, Accu-Cheks a.c. and at bedtime and covered with sliding scale insulin 7. Restless leg syndrome ? Patient is on gabapentin at night 8. Acute maxillary sinusitis ? CT finding patient remains asymptomatic 9. DVT prophylaxis ? SCDs for now with patient having received TNK Time spent in the patient's overall evaluation,decision-making process, review of diagnostic data, adjustment of management, discussion with other providers, nursing nursing and ancillary staff involved in patient's care documentation, 35 minutes Medications at Discharge Home Medications melatonin 3 mg tablet 9 mg PO QHS SLEEP 05/12/19 trazodone 100 mg tablet 200 mg PO QHS SLEEP 05/12/19 famotidine 20 mg tablet 20 mg PO BID GERD 02/17/20 levodopa 42 mg capsule with inhalation device (Inbrija) 84 mg inhalation 0900,1300,1700 PARKINSONS 02/16/21 propranolol 10 mg tablet 10 mg PO BID HYPERTENSION 02/16/21 carbidopa ER 36.25 mg-levodopa 145 mg capsule,extended release (Rytary) 4 cap PO 4X/DAY Parkinsons 11/30/21 cholecalciferol (vitamin D3) 50 mcg (2,000 unit) tablet 50 mcg PO DAILY SUPPLEMENT 11/30/21 diltiazem HCl 60 mg tablet 60 mg PO BID HYPERTENSION/AGINA 11/30/21 empagliflozin 25 mg tablet (Jardiance) 12.5 mg PO DAILY DIABETES 11/30/21 omega-3 fatty acids 1,000 mg PO DAILY SUPPLEMENT 11/30/21 prazosin 5 mg capsule 10 mg PO QHS HYPERTENSION 11/30/21 rosuvastatin 20 mg tablet 20 mg PO QHS HIGH CHOLESTEROL 11/30/21 duloxetine 60 mg capsule,delayed release 120 mg PO DAILY DEPRESSION 03/29/22 clopidogrel 75 mg tablet 75 mg PO DAILY BLOOD THINNER #21 tabs 01/12/23 clonazepam 0.5 mg tablet 0.5 mg PO QHS PANIC ATTACKS 03/16/23 diclofenac sodium 1 % topical gel 4 g topical BID PRN OSTEOARTHRITIS 03/16/23 gabapentin 300 mg capsule 300 mg PO QHS RESTLESS LEG SYNDROME 03/16/23 lidocaine 5 % topical patch 1 patch topical DAILY PRN SEVERE PAIN 03/16/23 sildenafil 100 mg tablet 100 mg PO DAILY PRN sexual activity 03/16/23 icosapent ethyl 1 gram capsule 2 g PO BID 07/30/23 testosterone cypionate 200 mg/mL intramuscular oil (Depo-Testosterone) 200 mg IM [id number] 07/30/23 docusate sodium 100 mg capsule 100 mg PO DAILY #0 caps 08/02/23 psyllium husk (aspartame) 3 gram oral powder packet (Daily Fiber (psyllium- aspartame)) 1 packet PO DAILY #0 ea 08/02/23 Physical Exam Narrative GENERAL: cooperative HEENT: Atraumatic; normocephalic EYES; Anicteric, Normal Conjunctiva NECK; supple, normal thyroid, RESPIRATORY: Diminished to auscultation CARDIOVASCULAR: Regular S1 S2, GI: soft, normoactive bowel sounds, : No Renal angle tenderness; EXTREMITIES: No edema, no clubbing, MUSCULOSKELETAL: no muscle wasting NEURO: Awake; muscle strength 2/5 in RLE and 4/5 in theRUE SKIN: No Rash PSYCH; Flat affect Weight / BMI Weight Weight: 103 kg Body Mass Index (BMI) 31.6 ABG / Lab / Microbiology Data 08/02/23 05:18 08/02/23 05:18 Laboratory: Laboratory Results - last 24 hr 08/02/23 05:18: WBC 7.0, RBC 5.24, Hgb 15.1, Hct 46.3, MCV 88.4, MCH 28.8, MCHC 32.6, RDW Std Deviation 40.1, RDW Coeff of Gail 12.4, Plt Count 143 L, MPV 10.1, Immature Gran % (Auto) 0.300, Neut % (Auto) 63.9, Lymph % (Auto) 21.9, [place] % (Auto) 10.3 H, Eos % (Auto) 2.9, Baso % (Auto) 0.7, Absolute Neuts (auto) 4.5, Absolute Lymphs (auto) 1.53, Nucleated RBC % 0, Sodium 139, Potassium 3.8, Chloride 107, Carbon Dioxide 26.0, Anion Gap 6, BUN 16, Creatinine 0.98, Estim Creat Clear Calc 100.38, Est GFR (MDRD) Af Amer 101, Est GFR (MDRD) Non-Af 84, BUN/Creatinine Ratio 16.4, Glucose 114 H, Calcium 8.8 D/C Instructions Discharge Diet: Low fat / Low cholesterol Discharge Activity: Return to Normal Activity Call your doctor if you observe: Fever of 101 or Higher, Shortness of breath, Fainting spells and Chest pain Meaningful Use Info Meaningful Use Meaningful Use Diagnoses (Choose all that apply): Ischemic CVA CVA Therapy Assessed for PT,OT and/or ST?: Yes Ischemic Stroke Antithrombotic order at d/c?: Yes Dx of Atrial fib/flutter?: No Statin Dosing Therapy Reference: STATIN DOSE THERAPY REFERENCE: * Patients > 75 years receive moderate or high dose statin therapy. * Patients 75 years or YOUNGER should receive HIGH intensity statin dose unless contraindicated. You will be required to document reason for non-treatment if statin daily dose does not meet guidelines. HIGH DOSE STATIN THERAPY DAILY Atorvastatin > than or = to 40 mg Rosuvastatin > than or = to 20 mg Amlodipine + Atorvastatin > than or = to 2.5/40 mg Ezetimibe + Simvastatin 10/80 mg Simvastatin 80mg Statins at discharge?: Yes If patient is 75 or younger, pt will be discharged on HIGH intensity statin.: Y es Primary Dx Acute Ischemic CVA?: Yes IV thrombolytic ordered during stay?: No Reason IV thrombolytic not ordered: Treatment Refused by Pt Discharge Plan Admission Admit Date/Time: 07/30/23 18:58 Attending Provider: Jake Cox Primary Care Provider: [facility] Consulting Providers: Laci Bradley; Hi Pineda; Gamal French; Edgardo Wilson; Jesse Stinson; Lauren Luis; Braulio Iqbal; Naila Santos; Marylu Lynn; Nicho Brower; Todd Salinas; Solo Cordon; Keo Hernandez; Israel Funes; Madhuri Galaviz; Nehemiah Metzger; Delores Mcclendon; Lily Smith; Judy Garcia; Liv Rm; Michael Hanna; Jaquelin Sloan; Dylan Tipton; Enrike Urlich; Shelia Weathers; Collin Covington; Tracie Houston; John Escalona; Nelda Ayala; Figueroa Joshi; Gareth Maya; Jimmie Chavez; Kellen Dunbar; Latricia Gross; Elida Mcclelland; Sacha Thibodeaux; Lilli Galaviz; MIRACLE RAMSEY; Joseph Quezada; Mary Carmen Archer Instructions Additional Instructions / Restrictions: Patient to undergo MRI of the brain with and without contrast on 08/04/2023 Discharge Orders/Prescriptions Prescriptions: New docusate sodium 100 mg Capsule 100 mg PO DAILY Qty: 0 0RF Daily Fiber (psyllium-aspart) 3 gram Powder In Packet 1 packet PO DAILY Qty: 0 0RF Continued Inbrija 42 mg capsule, w/inhalation device 84 mg inhalation 0900,1300,1700 propranolol 10 mg tablet 10 mg PO BID duloxetine 60 mg capsule,delayed release(DR/EC) 120 mg PO DAILY melatonin 3 MG tablet 9 mg PO QHS trazodone 100 MG tablet 200 mg PO QHS famotidine 20 MG tablet 20 mg PO BID prazosin 5 mg Capsule 10 mg PO QHS diltiazem HCl 60 mg Tablet 60 mg PO BID omega-3 fatty acids Capsule 1,000 mg PO DAILY rosuvastatin 20 mg Tablet 20 mg PO QHS cholecalciferol (vitamin D3) 50 mcg (2,000 unit) Tablet 50 mcg PO DAILY Jardiance 25 mg Tablet 12.5 mg PO DAILY Rytary 36.25-145 mg Capsule, Extended Release 4 cap PO 4X/DAY Rx Instructions: takes at 7am,11am,3pm,7pm clopidogrel 75 mg Tablet 75 mg PO DAILY Qty: 21 0RF clonazepam 0.5 mg tablet 0.5 mg PO QHS diclofenac sodium 1 % gel 4 g topical BID PRN (Reason: OSTEOARTHRITIS) gabapentin 300 mg capsule 300 mg PO QHS sildenafil 100 mg tablet 100 mg PO DAILY PRN (Reason: sexual activity) lidocaine 5 % Adhesive Patch,Medicated 1 patch topical DAILY PRN (Reason: SEVERE PAIN) Protocol: *Topical Application Instructions APPLICATION INSTRUCTIONS: right forearm. Rx Instructions: PATCH SHOULDNT BE LEFT ON SKIN FOR MORE THAN 12 HOURS testosterone cypionate [Depo-Testosterone] 200 mg/mL oil 200 mg IM [id number] icosapent ethyl 1 gram capsule 2 g PO BID Referrals [facility] [[facility] - Disposition Disposition (needs filled in before D/C Order can be placed): Inpatient Rehab Unit/Facility Charges/Coding Visit Charges Inpatient E&M: 66297 Disch Hosp >30min
--- NOTE | 2023-08-02 14:25 | STROKE.PNOTE ---
Objective Data Objective Data Vital Signs: Vital Signs Temp Pulse Resp BP Pulse Ox O2 Del Method 97.5 F L 68 18 138/78 H 100 Room Air 08/02/23 09:12 08/02/23 09:12 08/02/23 09:12 08/02/23 09:12 08/02/23 09:12 08/02/23 09:12 Oxygen Delivery Method Room Air Weight: 103 kg Body Mass Index (BMI) 31.6 Intake & Output: Intake and Output for Last 24 Hours 07/31/23 08/01/23 08/02/23 23:59 23:59 23:59 Intake Total 4005 / 4255 1230 / 1230 480 / 480 Output Total 2850 / 3150 1400 / 1400 Balance 1155 / 1105 -170 / -170 480 / 480 Lab / Micro Data 08/02/23 05:18 08/02/23 05:18 Labs: Laboratory Results - last 24 hr 08/02/23 05:18: WBC 7.0, RBC 5.24, Hgb 15.1, Hct 46.3, MCV 88.4, MCH 28.8, MCHC 32.6, RDW Std Deviation 40.1, RDW Coeff of Gail 12.4, Plt Count 143 L, MPV 10.1, Immature Gran % (Auto) 0.300, Neut % (Auto) 63.9, Lymph % (Auto) 21.9, [place] % (Auto) 10.3 H, Eos % (Auto) 2.9, Baso % (Auto) 0.7, Absolute Neuts (auto) 4.5, Absolute Lymphs (auto) 1.53, Nucleated RBC % 0, Sodium 139, Potassium 3.8, Chloride 107, Carbon Dioxide 26.0, Anion Gap 6, BUN 16, Creatinine 0.98, Estim Creat Clear Calc 100.38, Est GFR (MDRD) Af Amer 101, Est GFR (MDRD) Non-Af 84, BUN/Creatinine Ratio 16.4, Glucose 114 H, Calcium 8.8 Physical Exam Narrative -? General: Laying comfortably in bed; in no acute distress. -? HENT: Normal oropharynx and mucosa. Normal external appearance of ears and nose. Exophthalmos. -? Neck: Supple, no pain or tenderness -? CV:? No peripheral edema. -? Pulmonary:? Normal respiratory effort. -? Ext: No cyanosis, edema, or deformity -? Skin: No rash. Normal palpation of skin.? -? Musculoskeletal: full range of motion; no joint tenderness. Normal digits and nails by inspection. No clubbing. -? NEURO: -? Mental Status: The patient was alert and oriented to time, place, and person. Normal recent/remote memory, concentration, and general fund of knowledge. -? Language: speech is clear.? Naming, repetition, fluency, and comprehension intact. -? Cranial Nerves: EOMI, visual robles full, no facial asymmetry, facial sensation intact, hearing intact -? Motor: normal bulk, tone, and strength throughout. +Pronation of the RUE. b/l LE antigravity - ДМИТРИЙ diminished on the RUE and RLE. There is a resting tremor on the RUE -? Tone: is normal and bulk is normal -? Sensation- Intact to light touch bilaterally -? Coordination: No dysmetria on [id number], finger follow finger or [id number]. -? Gait- deferred Subject: Neurology Subjective Pt remains with R sided weakness per pt. States that weakness is lasting longer than his usual length, usuallly by now the weakness in the arm and leg is resolved EEG Results Procedure Details EEG Procedure Details: KRISHAN BURNHAM is a 58 year old M with a past medical history of , who presents for evaluation of Electroencephalogram on DATE at TIME Assessment and Plan: Stroke Assessment/Plan KRISHAN BURNHAM is a 58 M with a history of PD, prior stroke who presents for evaluation of stroke s/p TNK. Pt has been having recurrently symptoms of R sided weakness with prodrome of numbness, headache and confusion. In the setting of recurrent stereotyped symptoms and negative MRIs (granted in setting of thrombolytics, however symptoms generally last longer than 24 hrs), there is some concern for non-cerebrovascular causes of stroke including possible seizure. RECOMMENDATIONS: - Admit to Neurological intensive care unit - Post IVtNK order sets - Post- procedure CT brain - TTE wnl, recommend VELMA to further evaluate for structural abnormalities that could lead to recurrent strokes. - routine EEG in the hospital is normal per prelim read - recommend repeat MRI Brain in 1-2 days w/wo con to eval for new lesions - LDL 56, A1C 5.5 - Occupational/Physical therapy consult - DVT prophylaxis with SCDs and heparin SQ - NPO until swallow evaluation. IVF - Permissive hypertension to goal SBP < 180 mm Hg - Anti-platelet medication : Aspirin 325 mg daily - Vascular risk factor modification: - Hyperlipidemia: LDL Goal < 70 mg/dL - Smoking Cessation - Diabetes management
--- NOTE | 2023-08-02 15:07 | PHA.DC_ITS ---
Pharmacy [place] Med Reconciliation Pharmacy Service has performed discharge medication reconciliation for this patient. The patient's discharge medication list was reviewed for discrepancies and discrepancies were resolved. Medications at Discharge Home Medications melatonin 3 mg tablet 9 mg PO QHS SLEEP 05/12/19 trazodone 100 mg tablet 200 mg PO QHS SLEEP 05/12/19 famotidine 20 mg tablet 20 mg PO BID GERD 02/17/20 levodopa 42 mg capsule with inhalation device (Inbrija) 84 mg inhalation 0900 ,1300,1700 PARKINSONS 02/16/21 propranolol 10 mg tablet 10 mg PO BID HYPERTENSION 02/16/21 carbidopa ER 36.25 mg-levodopa 145 mg capsule,extended release (Rytary) 4 cap PO 4X/DAY Parkinsons 11/30/21 cholecalciferol (vitamin D3) 50 mcg (2,000 unit) tablet 50 mcg PO DAILY SUPPLEMENT 11/30/21 diltiazem HCl 60 mg tablet 60 mg PO BID HYPERTENSION/AGINA 11/30/21 empagliflozin 25 mg tablet (Jardiance) 12.5 mg PO DAILY DIABETES 11/30/21 omega-3 fatty acids 1,000 mg PO DAILY SUPPLEMENT 11/30/21 prazosin 5 mg capsule 10 mg PO QHS HYPERTENSION 11/30/21 rosuvastatin 20 mg tablet 20 mg PO QHS HIGH CHOLESTEROL 11/30/21 duloxetine 60 mg capsule,delayed release 120 mg PO DAILY DEPRESSION 03/29/22 clopidogrel 75 mg tablet 75 mg PO DAILY BLOOD THINNER #21 tabs 01/12/23 clonazepam 0.5 mg tablet 0.5 mg PO QHS PANIC ATTACKS 03/16/23 diclofenac sodium 1 % topical gel 4 g topical BID PRN OSTEOARTHRITIS 03/16/23 gabapentin 300 mg capsule 300 mg PO QHS RESTLESS LEG SYNDROME 03/16/23 lidocaine 5 % topical patch 1 patch topical DAILY PRN SEVERE PAIN 03/16/23 sildenafil 100 mg tablet 100 mg PO DAILY PRN sexual activity 03/16/23 icosapent ethyl 1 gram capsule 2 g PO BID 07/30/23 testosterone cypionate 200 mg/mL intramuscular oil (Depo-Testosterone) 200 mg IM .[id number] 07/30/23 docusate sodium 100 mg capsule 100 mg PO DAILY #0 caps 08/02/23 psyllium husk (aspartame) 3 gram oral powder packet (Daily Fiber (psyllium- aspartame)) 1 packet PO DAILY #0 ea 08/02/23
--- NOTE | 2023-08-02 15:11 | NURSING ---
Called replort to nurse on rehab unit
[2023-08-02 15:12] VITALS: BP 151/83; PULSE 86; RESP 18; TEMP 36.6; O2SAT 97
[2023-08-02 15:33] VITALS: BMI 31.6
== END 2023-08-02 15:46 | DRG 66 ==
LOC: ED 18:36 → ICU 19:22 → PCU 08-01 17:25
PROVIDERS: Admitting Provider Internal Medicine; Emergency Provider Emergency Medicine; Visit Provider Internal Medicine
DX: I63.9 Cerebral infarction, unspecified (principal); E11.9 Type 2 diabetes mellitus without complications; J01.00 Acute maxillary sinusitis, unspecified; E78.5 Hyperlipidemia, unspecified; E66.9 Obesity, unspecified; G20.C Parkinsonism, unspecified; M32.9 Systemic lupus erythematosus, unspecified; I10 Essential (primary) hypertension; J32.0 Chronic maxillary sinusitis; F41.8 Other specified anxiety disorders; K21.9 Gastro-esophageal reflux disease without esophagitis; G47.33 Obstructive sleep apnea (adult) (pediatric); G25.81 Restless legs syndrome; Z86.73 Personal history of transient ischemic attack (TIA), and cerebral infarction without residual deficits; Z87.891 Personal history of nicotine dependence; F41.0 Panic disorder [episodic paroxysmal anxiety]; Z79.84 Long term (current) use of oral hypoglycemic drugs; Z79.02 Long term (current) use of antithrombotics/antiplatelets; Z68.31 Body mass index [BMI] 31.0-31.9, adult
CPT/HCPCS: 36415; 70450; 70496; 70498; 70551; 71045; 74230; 80048; 80053; 80061; 80076; 83036; 83735; 84100; 84443; 84484; 85025; 85610; 85730; 92523; 92526; 92610; 92611; 93005; 93306; 95819; 97162; 97166; 97530; 97535; 97802; 99285; J3101; J7030; A4216; J2405; J3490

== ENCOUNTER 2023-08-02 15:54 | Inpatient (IN) | payer MEDICARE, SELFPAY ==
[2023-08-02 16:09] VITALS: BP 137/84; PULSE 83; RESP 18; TEMP 36.9; O2SAT 96; BMI 30.7
[2023-08-02 16:23] VITALS: BP 115/70; BP 134/85; BP 145/87; PULSE 74; PULSE 84; PULSE 93
[2023-08-02] MEDS: LEVODOPA 42 MG 84 MG INHALATION (17:49)
[2023-08-02] MEDS: CARBIDOPA/LEVODOPA 1 EACH CAPSULE.ER 4 EACH PO (22:02)
[2023-08-02] MEDS: Doxazosin 4 MG Tablet 8 MG PO (22:09)
[2023-08-02] MEDS: Famotidine 20 MG Tablet PO (22:09)
[2023-08-02] MEDS: dilTIAZem 60 MG Tablet PO (22:09)
[2023-08-02] MEDS: Propranolol 10 MG Tablet PO (22:09)
[2023-08-02] MEDS: Gabapentin 300 MG Capsule PO (22:09)
[2023-08-02] MEDS: traZODone 100 MG Tablet 200 MG PO (22:09)
[2023-08-02] MEDS: Atorvastatin Calcium 40 MG Tablet PO (22:09)
[2023-08-02] MEDS: MELATONIN 3 MG TABLET 9 MG PO (22:09)
[2023-08-02] MEDS: clonazePAM 0.5 MG Tablet PO (22:09)
[2023-08-03 05:21] LABS: Hematocrit 44.1 % (40-54); Mean Corpuscular Hgb 29.8 pg (27.0-32.0); Mean Corpuscular Volume 87.7 fL (80-94); Mean Platelet Vol. 9.3 fl (6.2-12.0); Platelet Count 142 K/mm3 (150-450); RBC Distribution Width CV 12.6 % (11.6-14.6); Red Blood Count 5.03 M/mm3 (4.6-6.2); White Blood Count 7.1 K/mm3 (4.4-11.0)
[2023-08-03] MEDS: CARBIDOPA/LEVODOPA 1 EACH CAPSULE.ER 4 EACH PO ×4 (06:16→19:00)
[2023-08-03 06:17] LABS: ALB/GLOB Ratio 1.1 RATIO (0.9-2.4); AST(SGOT) 23 U/L (15-37); Alanine Aminotransfer ALT/SGPT 12 U/L (16-61); Albumin, Serum 3.6 g/dL (3.2-5.0); Alkaline Phosphatase 58 U/L (45-117); Anion Gap 3 (5-15); BUN 17 mg/dL (7-18); BUN/Creat Ratio 16.3 RATIO (10-20); Chloride 107 mmol/L (98-107); Creatinine, Serum 1.04 mg/dL (0.70-1.30); EST Glomerular Filtration Rate 78 mL/min (>60); Est Glom Filt Rate - Afr Amer 94 mL/min (>60); Estimated Creatinine Clearance 91.53 ml/min; Globulin 3.2 g/dL (2.2-4.2); Glucose 124 mg/dL (74-106); Magnesium 2.3 mg/dL (1.6-2.6); Phosphorus 4.3 mg/dL (2.5-4.9); Potassium 3.7 mmol/L (3.5-5.1); Protein, Total 6.8 g/dL (6.4-8.2); Sodium Level 138 mmol/L (136-145)
[2023-08-03] MEDS: Psyllium 1 PACKET PO (07:55)
[2023-08-03] MEDS: DULoxetine Hcl 60 MG Capsule 120 MG PO (07:55)
[2023-08-03] MEDS: Famotidine 20 MG Tablet PO ×2 (07:56→21:45)
[2023-08-03] MEDS: Cholecalciferol (VIT D3) 25 MCG TABLET (1,000 UNITS) 50 MCG PO (07:56)
[2023-08-03] MEDS: Clopidogrel Bisulfate 75 MG Tablet PO (07:56)
[2023-08-03] MEDS: Propranolol 10 MG Tablet PO ×2 (07:56→21:45)
[2023-08-03] MEDS: Docusate Sodium 100 MG Capsule PO (07:56)
[2023-08-03] MEDS: Omega-3 Acid Ethyl Esters 1 GM Capsule PO (07:56)
[2023-08-03] MEDS: dilTIAZem 60 MG Tablet PO ×2 (07:56→21:46)
[2023-08-03] MEDS: Empagliflozin 25 MG Tablet 12.5 MG PO (07:56)
[2023-08-03] MEDS: Glucerna Shake 120 ML LIQUID PO ×2 (07:57→11:35)
[2023-08-03] MEDS: LEVODOPA 42 MG 84 MG INHALATION ×3 (07:57→17:00)
[2023-08-03 08:48] VITALS: BP 115/74; PULSE 60; RESP 20; TEMP 36.1; O2SAT 97
[2023-08-03] MEDS: Arthritis Pain Compound 60 CLICK TUBE TOPICAL (11:32)
--- NOTE | 2023-08-03 12:15 | EX.PCM.HP.RE ---
HPI - General General Date of Admission: 08/02/23 Date of Service: 08/03/23 Chief Complaint: Post stroke debility HPI Narrative KRISHAN BURNHAM, is a 58-year-old M with a past medical history of Parkinson's disease, diabetes mellitus type 2, dyslipidemia, obstructive sleep apnea, obesity, SLE, diverticulosis, BPH, osteoarthritis and previous ischemic CVAs who presented to the emergency department at [facility] on 07/30/2023 as a stroke alert. His told the emergency room physician that they were at the store around 4 PM and he stated he felt weak and needed to go to the car to sit down. When they got home he was able to get into the house. His took the dog out and when she returned at approximately 4:15 PM Krishan was slow to answer questions and was having difficulty with speech as well as right-sided weakness. She called 911 and EMS transported him to the emergency department at [facility]. His last stroke was in December of 2022 and he had similar sx. He received TNK at that time. NIHSS score was 9 at presentation to the ER for facial palsy weakness of the right upper extremity and the right lower extremity, sensory deficit and aphasia. Stat noncontrast CT brain showed bilateral maxillary sinusitis but no acute intracranial disease. CTA of the head and neck was normal. Teleneurology was consulted from the emergency department and the neurologist felt the patient was a good candidate for TNK. He received TNK in the emergency department and then was admitted to the hospitalist service. A transthoracic echocardiogram showed mild concentric left ventricular hypertrophy with an ejection fraction of 60% and no regional wall motion abnormalities. There was mild TR. Pulmonary artery systolic pressure was estimated at 20 mmHg. He had a cardiac catheterization and February 2023 that showed normal coronaries and normal left ventricular size, wall motion and systolic function. He had a event monitor in 2021 that showed normal sinus rhythm with no AF. He had a brain MRI done on 07/31/2023 and it showed no intracranial mass, hemorrhage or acute territorial infarct. Despite the fact that the radiology report said no acute stroke he has persistent new neurologic deficits and he is being managed as an ischemic stroke. While in the hospital he was seen by PT/OT/ST and acute rehab was recommended at [facility]. Testosterone is prescribed by his PCP at the [facility]. He has had a positive lupus anticoagulant in the past. Mother and brother have both had blood clots. His mother also had hypothyroidism. His brother has had a stroke and is known to have a PFO. Krishan is not on a blood thinner. He is on Plavix prescribed by neurology. He is seen at [facility] for PD. He tells me that he was diagnosed in 2010 with PD. He also tells me that he has episodes than can last from a few days to a few weeks of increased weakness and muscle spasms in his legs. He also gets weakness in his arms and tingling in his hands. He denies any spinal cord injuries. When he gets these episodes he develops urinary frequency/urgency and sometimes has nocturia every hour at night. He does not feel as though he is emptying his bladder and he has lower abdominal bloating/fullness. He has not told his neurologist about these sx. He denies lightheadedness. He denies ever seeing a tailor men's ready to wear. He has not seen a urologist. He denies any hx of VTE in the legs or lungs. Orthostatics are + this AM. Lying down his blood pressure was 145/87 with a pulse rate of 74. Sitting up the blood pressure was 134/85 with a pulse rate of 84 and standing the blood pressure dropped to 115/70 with a heart rate of 93. [facility] Medical History (Updated 08/04/23 @ 15:[address] Aisha Rios, ) Left ventricular hypertrophy Chronic prescription benzodiazepine use Type 2 diabetes mellitus Testosterone deficiency in male Diverticulosis Sprain and strain of left hand COVID-19 Alternating constipation and diarrhea Wrist pain De Quervain's tenosynovitis, right Cough Cellulitis of right wrist Acute stroke due to ischemia Lupus Wears glasses History of hiatal hernia CPAP (continuous positive airway pressure) dependence Acute cerebrovascular accident (CVA) due to ischemia COVID-19 vaccine series completed Former smoker Hypertension Hyperlipidemia HTN (hypertension) Parkinsons disease GERD (gastroesophageal reflux disease) Constipation Sleep apnea Depression with anxiety Abdominal pain Diverticulitis Home Medications ?Medication ?Instructions ?Recorded ?Last Taken ?Type melatonin 3 mg tablet 9 mg PO QHS SLEEP 05/12/19 03/15/23 History trazodone 100 mg tablet 200 mg PO QHS SLEEP 05/12/19 08/01/23 History famotidine 20 mg tablet 20 mg PO BID GERD 02/17/20 08/02/23 History levodopa 42 mg capsule with 84 mg inhalation 0900,1300,1700 02/16/21 08/02/23 History inhalation device (Inbrija) PARKINSONS propranolol 10 mg tablet 10 mg PO BID HYPERTENSION 02/16/21 08/02/23 History carbidopa ER 36.25 mg-levodopa 145 4 cap PO 4X/DAY Parkinsons 11/30/21 08/02/23 History mg capsule,extended release (Rytary) cholecalciferol (vitamin D3) 50 50 mcg PO DAILY SUPPLEMENT 11/30/21 08/02/23 History mcg (2,000 unit) tablet diltiazem HCl 60 mg tablet 60 mg PO BID HYPERTENSION/AGINA 11/30/21 03/16/23 History empagliflozin 25 mg tablet 12.5 mg PO DAILY DIABETES 11/30/21 08/02/23 History (Jardiance) omega-3 fatty acids 1,000 mg PO DAILY SUPPLEMENT 11/30/21 03/16/23 History prazosin 5 mg capsule 10 mg PO QHS HYPERTENSION 11/30/21 08/02/23 History rosuvastatin 20 mg tablet 20 mg PO QHS HIGH CHOLESTEROL 11/30/21 08/01/23 History duloxetine 60 mg capsule,delayed 120 mg PO DAILY DEPRESSION 03/29/22 08/02/23 History release clopidogrel 75 mg tablet 75 mg PO DAILY BLOOD THINNER #21 01/12/23 03/16/23 Rx tabs clonazepam 0.5 mg tablet 0.5 mg PO QHS PANIC ATTACKS 03/16/23 03/14/23 History diclofenac sodium 1 % topical gel 4 g topical BID PRN OSTEOARTHRITIS 03/16/23 Unknown History gabapentin 300 mg capsule 300 mg PO QHS RESTLESS LEG SYNDROME 03/16/23 03/15/23 History lidocaine 5 % topical patch 1 patch topical DAILY PRN SEVERE 03/16/23 Unknown History PAIN sildenafil 100 mg tablet 100 mg PO DAILY PRN sexual activity 03/16/23 Unknown History icosapent ethyl 1 gram capsule 2 g PO BID Cholesterol 07/30/23 08/02/23 History testosterone cypionate 200 mg/mL 200 mg IM .p4lexiw Testosterone 07/30/23 07/30/23 History intramuscular oil (Depo-Testosterone) docusate sodium 100 mg capsule 100 mg PO DAILY Constipation #0 08/02/23 Unknown Rx caps psyllium husk (aspartame) 3 gram 1 packet PO DAILY Constipation #0 08/02/23 Unknown Rx oral powder packet (Daily Fiber ea (psyllium-aspartame)) Allergy/AdvReac Type Severity Reaction Status Date / Time No Known Allergies Allergy Verified 07/30/23 17:20 Family History Mother Heart disease Hypertension High cholesterol Cancer skin cancer Father Heart disease High cholesterol Hypertension CVA (cerebral vascular accident) Surgical History S/P arthroscopic surgery of left knee History of colectomy (~02/2020) History of laparoscopic cholecystectomy History of appendectomy Social History household members: spouse number of children: 5 current occupational status: unemployed Smoking Status: Former smoker how long ago did patient quit smoking: Quit ~ 15 years prior, smoked socially only. alcohol intake: never substance use type: does not use ROS Constitutional Constitutional: Reports fatigue and weakness; Denies anorexia, change in weight, chills, fever(s) or night sweats Eyes Eyes: Denies blurry vision, change in vision, eye pain or loss of vision ENT HEENT: Denies abnormal hearing, dysphagia, headache(s), hearing loss, nasal congestion or sore throat Cardiovascular Cardiovascular: Denies chest pain, dyspnea on exertion, edema, lightheadedness, orthopnea, palpitations, paroxysmal nocturnal dyspnea or syncope Respiratory/Chest Respiratory/Chest: Denies cough, dyspnea, shortness of breath at rest, shortness of breath with exertion or wheezing Gastrointestinal Gastrointestinal: Denies abdominal pain, constipation, diarrhea, dyspepsia, hematemesis, hematochezia, nausea or vomiting Genitourinary Genitourinary: Denies dysuria, hematuria, nocturia, urinary frequency, urinary hesitancy, urinary incontinence or urinary urgency Musculoskeletal Musculoskeletal: Denies back pain, joint pain, joint swelling or neck pain Neurologic Neurologic: Reports disequilibrium, focal weakness and other Details: Has noticed that his thought processes are slower than his baseline. ; Denies confusion, dizziness, headache(s), paresthesias, seizures or tremor(s) Psychiatric Psychiatric: Denies anxiety, depression, homicidal ideation or suicidal ideation Endocrine Endocrinology: Denies change in body appearance, polydipsia or polyuria Hematologic/Lymphatic Hematologic/Lymphatic: Denies easy bleeding, easy bruising or lymphadenopathy Allergic/Immunologic Allergic/Immunologic: Denies rhinitis, eczemia or asthma Vital Signs Vital Signs Vital Signs: 08/02/23 16:09 08/02/23 16:23 08/03/23 08:48 Temperature 98.5 F 96.9 F L Temperature Source Temporal Temporal Pulse Rate 83 60 Pulse Rate [Lying] 74 Pulse Rate [Sitting (for 1 minute prior to obtaining)] 84 Pulse Rate [Standing (for 1 minute prior to obtaining)] 93 Respiratory Rate 18 20 H Blood Pressure 137/84 H 115/74 Blood Pressure [Lying] 145/87 H Blood Pressure [Sitting (for 1 minute prior to obtaining)] 134/85 H Blood Pressure [Standing (for 1 minute prior to obtaining)] 115/70 Blood Pressure Mean 101 87 Blood Pressure Mean [Lying] 106 Blood Pressure Mean [Sitting (for 1 minute prior to obtaining)] 101 Blood Pressure Mean [Standing (for 1 minute prior to obtaining)] 85 Blood Pressure Source Monitor Monitor Blood Pressure Position Sitting Sitting Blood Pressure Location Right Arm Left Arm Pulse Ox 96 97 Oxygen Delivery Method Room Air Room Air 08/03/23 11:07 Temperature Temperature Source Pulse Rate Pulse Rate [Lying] Pulse Rate [Sitting (for 1 minute prior to obtaining)] Pulse Rate [Standing (for 1 minute prior to obtaining)] Respiratory Rate Blood Pressure Blood Pressure [Lying] Blood Pressure [Sitting (for 1 minute prior to obtaining)] Blood Pressure [Standing (for 1 minute prior to obtaining)] Blood Pressure Mean Blood Pressure Mean [Lying] Blood Pressure Mean [Sitting (for 1 minute prior to obtaining)] Blood Pressure Mean [Standing (for 1 minute prior to obtaining)] Blood Pressure Source Blood Pressure Position Blood Pressure Location Pulse Ox Oxygen Delivery Method Room Air Weight Weight: 219 lb 4 oz Body Mass Index (BMI) 30.7 Indicators for Scoring Admitted with or Primary Diagnosis of CVA/Stroke: Yes Hx of CVA/Stroke: Yes Modified [place] Score MRS Score at time of Evaluation: 2-Slight disability NIHSS NIHSS 1a. Level of Consciousness: Alert; keenly responsive 1b. LOC Questions: Answers BOTH questions correctly. 1c. LOC Commands: Performs both tasks correctly. 2. Best Gaze: Normal 3. Visual: No visual loss 4. Facial Palsy: Minor paralysis (flattened nasolabial fold, asymmetry on smiling) (Can not see as many teeth on the R when he smiles.) 5a. Left Arm: No drift; arm holds 90 (or 45) degrees for full 10 seconds 5b. Right Arm: No drift; arm holds 90 (or 45) degrees for full 10 seconds (Did not drift but, he is weaker on the R and he is R hand dominant) 6a. Left Leg: No drift; leg holds 30-degree position for full 5 seconds 6b. Right Leg: No drift; leg holds 30-degree position for full 5 seconds (R leg is weaker than the left.) 7. Limb Ataxia: Present in 1 limb (RUE) 8. Sensory: Normal; no sensory loss 9. Best Language: No aphasia; normal 10. Dysarthria: Normal 11. Extinction and Inattention: No abnormality Total: 2 Stroke Questions Stroke Team Activated: No Physical Exam Const alert, oriented x3 and no apparent distress Constitutional Narrative: Making good eye contact, appropriate. Thought process is a little slow and he has noticed this. Affect is flat. General Appearance: cooperative and comfortable HEENT moist oral mucous membranes and oropharynx normal Eyes PERRL and EOMs intact bilaterally Eyes Narrative: No conjunctival injection, no scleral icterus, no discharge from the eyes and no mattering of the eyelashes. No visual field cuts. No visual extinction. Neck no lymphadenopathy, supple, no JVD, No nodes and no carotid bruits Neck Narrative: Carotids have brisk upstroke and good pulse volume bilaterally. Resp normal respiratory effort, no use of accessory muscles and clear to auscultation bilaterally Resp Narrative: Not tachypneic and no conversational dyspnea. Cardio regular rate, regular rhythm, S1 normal heart sound, S2 normal heart sound, no murmurs, no rub and no gallops GI normal to inspection, nondistended, normoactive bowel sounds, soft to palpation and non-tender GI Narrative: No guarding with palpation. Extremity no clubbing, cyanosis or edema and no calf tenderness Skin no wounds, no jaundice and no petechiae Skin Narrative: No rashes, no skin breakdown. Neuro oriented x3 and no sensory deficits noted Neuro Narrative: He has mild ataxia with the RUE. Nor drift of the RUE or the RLE but, strength is diminished on the R side. Poor coordination of the R hand and he is R hand dominant. No sensory loss, no extinction, no dysarthria and no aphasia. He has resting tremors of the hands. No significant bradykinesia or rigidity. Speech is a little halting at times as if he is searching for the word. Motor Exam: strength 5/5 throughout Psych affect normal Psych Narrative: Appropriate, making good eye contact. Able to stay on topic and focus but, at times he has to think about what word he wants to say. No flight of ideas. Does not appear anxious or depressed. Conversant and relating well to staff. Affect is flat. Appearance: appropriate Attitude: No agitated Mood & Affect: flat affect Thought Content: No suicidality, No delusion(s) and No hallucination(s) Results Lab / Micro Data 08/03/23 05:01 08/03/23 05:01 Labs: Laboratory Results - last 24 hr 08/03/23 05:01: WBC 7.1, RBC 5.03, Hgb 15.0, Hct 44.1, MCV 87.7, MCH 29.8, MCHC 34.0, RDW Std Deviation 40.0, RDW Coeff of Gail 12.6, Plt Count 142 L, MPV 9.3, Sodium 138, Potassium 3.7, Chloride 107, Carbon Dioxide 28.0, Anion Gap 3 L, BUN 17, Creatinine 1.04, Estim Creat Clear Calc 91.53, Est GFR (MDRD) Af Amer 94, Est GFR (MDRD) Non-Af 78, BUN/Creatinine Ratio 16.3, Glucose 124 H, Calcium 9.0, Phosphorus 4.3, Magnesium 2.3, Total Bilirubin 0.40, AST 23, ALT 12 L, Alkaline Phosphatase 58, Total Protein 6.8, Albumin 3.6, Globulin 3.2, Albumin/Globulin Ratio 1.1 Assessment & Plan Assessment/Plan (1) Debility: (2) Acute CVA (cerebrovascular accident): (3) 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): (4) Weakness of right side of body: (5) Hx of Parkinson's disease: (6) Orthostatic hypotension: (7) Hyperlipidemia: QUALIFIERS: Hyperlipidemia type: unspecified Qualified Code(s): E78.5 - Hyperlipidemia, unspecified (8) Hypertension: QUALIFIERS: Hypertension type: primary hypertension Qualified Code(s): I10 - Essential (primary) hypertension (9) Type 2 diabetes mellitus: QUALIFIERS: Diabetes mellitus complication detail: with other circulatory complications Diabetes mellitus complication status: with circulatory complication Diabetes mellitus long term care phlebotomist insulin use: without long term care phlebotomist use Qualified Code(s): E11.59 - Type 2 diabetes mellitus with other circulatory complications (10) BMI 34.0-34.9,adult: (11) Sleep apnea: QUALIFIERS: Sleep apnea type: unspecified type Qualified Code(s): G47.30 - Sleep apnea, unspecified (12) GERD (gastroesophageal reflux disease): QUALIFIERS: Esophagitis presence: esophagitis presence not specified Qualified Code(s): K21.9 - Gastro-esophageal reflux disease without esophagitis (13) Chronic prescription benzodiazepine use: (14) Left ventricular hypertrophy: PLAN: Plan PLAN PT for gait stability OT for ADL's ST for evaluation Analgesics as needed Bowel protocol Fall precautions Assess for Anxiety/Depression GI prophylaxis -not necessary at this time DVT prophylaxis with BOB hernandez and ambulation Follow up with PCP, neurology and endocrinology following DC from IP Rehab AM lab including CMP, CBC, Mag and Phos Pt tells me that he has had a + lupus anticoagulant in the past. His father and brother have had strokes. Brother has a PFO. Possible inherited hypercoagulable disorder. Will order a hypercoagulable W/U. Check antithyroid antibodies. Obtain records from [place] - particularly interested in testosterone levels.......seth want to see if he has had a low free testosterone in the past. Check a prolactin and an LH Obtain records from his neurologist.......I let him know that he needs to discuss the other neurologic sx he has been having episodically. Weakness and muscle spasms of the legs and UE's with urine retention sx and changes in vision. Has had an MRI of the low back in the past.....without contrast though. DC testosterone due to the adverse reaction of causing blood clots. I reviewed all the echocardiograms done at [facility] over the past few years and on 12/01/2021 he had a bubble contrast study which was negative for a right to left atrial shunt. Charges/Coding Visit Charges Inpatient E&M: 36450 Init Hosp L3
[2023-08-03 16:29] LABS: Bedside Glucose 197 mg/dL (74-106)
[2023-08-03 19:47] VITALS: BP 121/75; PULSE 64; RESP 16; TEMP 36.6; O2SAT 97
[2023-08-03] MEDS: Doxazosin 4 MG Tablet 8 MG PO (21:45)
[2023-08-03] MEDS: Gabapentin 300 MG Capsule PO (21:45)
[2023-08-03] MEDS: clonazePAM 0.5 MG Tablet PO (21:45)
[2023-08-03] MEDS: Atorvastatin Calcium 40 MG Tablet PO (21:45)
[2023-08-03] MEDS: MELATONIN 3 MG TABLET 9 MG PO (21:46)
[2023-08-03] MEDS: traZODone 100 MG Tablet 200 MG PO (21:46)
[2023-08-04] MEDS: CARBIDOPA/LEVODOPA 1 EACH CAPSULE.ER 4 EACH PO ×4 (06:40→19:44)
[2023-08-04 06:51] VITALS: O2SAT 98
[2023-08-04 08:36] VITALS: BP 119/68; PULSE 78; RESP 16; TEMP 36.7; O2SAT 98
--- NOTE | 2023-08-04 09:16 | REHABEVAL_ITS ---
Admission Information Primary Diagnosis:: Post stroke debility Status Changes from Prescreening?: No changes Identified Actual Problem List:: Cognitve Impr/Memory Loss, Depression, Mobility Impaired, Self Care Deficit and Alteration-Leisure Activ. Potential Problem List:: DVT, Bleeding, Infection, UTI, Aspiration, Falls, Skin Integrity and Depression Risk of Complications DVT: LMWH, BOB Hose and - (Ambulation) Bleeding: Monitor Lab Values, Nursing to Teach Precautions for anti-coagulation therapy., Wound, if applicable, to be assessed every shift. and Stroke patients assessed for lethargy or change in status. Infection: Clinical Staff to Monitor for S/S of infection: and S/S of infection include fever, redness, warmth, etc. Urinary Tract Infection: Monitor for frequency, burning, discomfort, or incontinence. and Nursing will obtain urine sample for urinalysis and C&S when ordered. Aspiration: Clinical staff will monitor for coughing, drooling, congestion., Speech will evaluate swallowing and dsyphasia. and Nursing will monitor patient swallowing during meals. Falls: Patient will be evaluated for Fall Precautions and Patient will be placed on Fall Precautions as indicated per protocol. Skin Breakdown: Nursing will assess skin daily using assessment tool. and Nursing will place on Skin Breakdown Precautions as indicated. Pain: Clinical staff will assess patient's pain level per protocol., Medications will be given, if needed, and the pain level reassessed. and Other methods: Massage, distraction, decrease stimulus, etc. used PRN. Plan of Care Patient requires physician specializing in physical medicine and rehab oversight to provide close medical supervision of rehab issues including: Pain Management, Sleep Problems, Bowel and Bladder, Medical and co-morbidity Management, DVT prophylaxis, Rehabilitation Leadership and Coordination of treatment team Patient needs Physical Therapy: For a minimum of 1 hour and At least 5 out of 7 days Patient needs Physical Therapy to improve:: Mobility, Strengthening, Transfers, Stretching, ROM, Endurance, Stairs, Gait and Balance Patient needs Occupational Therapy: For a minimum of 1 hour and At least 5 out of 7 days Patient needs Occupational Therapy to improve ADL's incl.: Eating, Grooming, Bathing, Dressing, Toileting, Toilet transfers, Community Reintegration, Higher functioning activities, Household tasks, Adaptive Equipment, Splinting and Other activities as determined Patient requires speech therapy: For a minimum of 1 hour and At least 5 out of 7 days Patient requires speech therapy for: Swallowing, Cognition, Language Skills and Compensatory Strategies Patient requires 24/7 Rehabilitation Nursing for: Pain Issues, Identifying and preventing risk factors, Monitoring and reporting current medical conditions, Assisting with ambulation, transfer, and all ADL's, Teaching patients about disease process and medications, Family teaching, Providing safe environment, Bowel and Bladder Issues, Skin integrity and Medication Management Patient needs Braille Duplicating Machine Operator/ Case Management for: Discharge Planning, Arranging Home Equipment or Services and Family Interventions Patient needs Dietary and Nutrition Services for: Adequate Nutrition, Nutritional Supplements and Nutritional Education Goals Goals Patient will remain: free from falls Patient will perform eating at: MOD I level of assist. Patient will perform bed mobility at: MOD I level of assist. Patient will complete transfers from bed to chair at: MOD I level of assist. Patient will ambulate: - (1000 feet with least restrictive device or without a device on various surfaces) Patient will complete upper body dressing at: MOD I level of assist. Patient will complete lower body dressing at: MOD I level of assist. Patient will complete toilet transfer at: MOD I level of assist. Patient will complete toileting at: MOD I level of assist. Patient will perform bathing at: MOD I level of assist. Patient will perform Tub/Shower transfer at: - (Supervision) Patient will complete grooming at: - (Independently) Patient will complete home management skills at: MOD I level of assist. Patient will achieve: 12 stairs (With 1 handrail at supervision to allow access to his basement) Patient will have pain level of: of 3 or less Patient's skin will: remain intact Patient will receive: adequate nutrition. Discharge Planning Pt Prognosis for Sig. Practical Improv. w/in Reasonable Time: Good Estimated Length of stay (days): 14 Anticipated D/C Destination: Home with Outpt Therapy Was Preadmission Assessment Accurate?: Yes
[2023-08-04] MEDS: LEVODOPA 42 MG 84 MG INHALATION ×3 (09:21→17:18)
[2023-08-04] MEDS: Arthritis Pain Compound 60 CLICK TUBE TOPICAL ×2 (09:21→22:03)
[2023-08-04] MEDS: dilTIAZem 60 MG Tablet PO ×2 (09:22→22:04)
[2023-08-04] MEDS: Propranolol 10 MG Tablet PO ×2 (09:23→22:03)
[2023-08-04] MEDS: DULoxetine Hcl 60 MG Capsule 120 MG PO (09:23)
[2023-08-04] MEDS: Empagliflozin 25 MG Tablet 12.5 MG PO (09:23)
[2023-08-04] MEDS: Docusate Sodium 100 MG Capsule PO (09:24)
[2023-08-04] MEDS: Psyllium 1 PACKET PO (09:24)
[2023-08-04] MEDS: Clopidogrel Bisulfate 75 MG Tablet PO (09:24)
[2023-08-04] MEDS: Omega-3 Acid Ethyl Esters 1 GM Capsule PO (09:24)
[2023-08-04] MEDS: Famotidine 20 MG Tablet PO ×2 (09:24→22:03)
[2023-08-04] MEDS: Cholecalciferol (VIT D3) 25 MCG TABLET (1,000 UNITS) 50 MCG PO (09:24)
[2023-08-04 10:17] LABS: Luteinizing Hormone < 0.2 mIU/mL; Prolactin 2.6 ng/mL
[2023-08-04 16:25] LABS: Bedside Glucose 112 mg/dL (74-106)
[2023-08-04] MEDS: Glucerna Shake 120 ML LIQUID PO (17:19)
--- NOTE | 2023-08-04 18:45 | CASEMGMT ---
Social Work Met with patient in the community/therapy room introducing to self and social work role. Patient's and son in patient's room, so conducted assessment in the community room when patient was there getting snacks. Patient agreeable to speak to nephrology social worker and indicated the community room okay to talk. Patient's BIMS score a 15/15, memory appearing intact during social work assessment. PHQ2 was a score of 0. Patient does have a history of depression, anxiety and PTSD but reports to feel this managed well by medication and counseling. Patient's goal is to return home with support from , and would be open to outpatient PT/OT if needed. Patient confirms is the patient's POAHC. POA[facility] and [facility] on file. Plan: SW to follow for discharge planning and support as indicated. Anticipate home with outpatient therapy. -SUHAS Grimes
[2023-08-04 19:57] VITALS: BP 115/67; PULSE 70; RESP 16; TEMP 37.1; O2SAT 96
[2023-08-04] MEDS: MELATONIN 3 MG TABLET 9 MG PO (22:03)
[2023-08-04] MEDS: Doxazosin 4 MG Tablet 8 MG PO (22:03)
[2023-08-04] MEDS: traZODone 100 MG Tablet 200 MG PO (22:04)
[2023-08-04] MEDS: Atorvastatin Calcium 40 MG Tablet PO (22:04)
[2023-08-04] MEDS: Gabapentin 300 MG Capsule PO (22:08)
[2023-08-04] MEDS: clonazePAM 0.5 MG Tablet PO (22:08)
[2023-08-05] MEDS: CARBIDOPA/LEVODOPA 1 EACH CAPSULE.ER 4 EACH PO ×4 (06:46→18:48)
[2023-08-05] MEDS: Enoxaparin 40 MG/0.4 ML Syringe SC (06:47)
[2023-08-05 06:58] LABS: Bedside Glucose 159 mg/dL (74-106)
[2023-08-05] MEDS: Glucerna Shake 120 ML LIQUID PO ×3 (08:37→17:11)
[2023-08-05 08:45] VITALS: BP 104/65; PULSE 68; RESP 16; TEMP 36.4; O2SAT 95
[2023-08-05] MEDS: LEVODOPA 42 MG 84 MG INHALATION ×3 (09:02→17:11)
[2023-08-05] MEDS: Arthritis Pain Compound 60 CLICK TUBE TOPICAL ×2 (09:02→21:35)
[2023-08-05] MEDS: dilTIAZem 60 MG Tablet PO ×2 (09:03→21:36)
[2023-08-05] MEDS: Docusate Sodium 100 MG Capsule PO (09:04)
[2023-08-05] MEDS: DULoxetine Hcl 60 MG Capsule 120 MG PO (09:05)
[2023-08-05] MEDS: Propranolol 10 MG Tablet PO ×2 (09:05→21:37)
[2023-08-05] MEDS: Empagliflozin 25 MG Tablet 12.5 MG PO (09:06)
[2023-08-05] MEDS: Omega-3 Acid Ethyl Esters 1 GM Capsule PO (09:07)
[2023-08-05] MEDS: Cholecalciferol (VIT D3) 25 MCG TABLET (1,000 UNITS) 50 MCG PO (09:07)
[2023-08-05] MEDS: Famotidine 20 MG Tablet PO ×2 (09:07→21:39)
[2023-08-05] MEDS: Clopidogrel Bisulfate 75 MG Tablet PO (09:07)
[2023-08-05] MEDS: Psyllium 1 PACKET PO (09:07)
[2023-08-05 10:00] VITALS: PULSE 68
[2023-08-05 16:39] LABS: Bedside Glucose 121 mg/dL (74-106)
[2023-08-05 21:34] VITALS: BP 131/77; PULSE 66; RESP 16; TEMP 36.4; O2SAT 97
[2023-08-05] MEDS: Doxazosin 4 MG Tablet 8 MG PO (21:36)
[2023-08-05] MEDS: traZODone 100 MG Tablet 200 MG PO (21:36)
[2023-08-05] MEDS: Atorvastatin Calcium 40 MG Tablet PO (21:38)
[2023-08-05] MEDS: MELATONIN 3 MG TABLET 9 MG PO (21:39)
[2023-08-05] MEDS: clonazePAM 0.5 MG Tablet PO (21:46)
[2023-08-05] MEDS: Gabapentin 300 MG Capsule PO (21:46)
[2023-08-06] MEDS: Enoxaparin 40 MG/0.4 ML Syringe SC (06:25)
[2023-08-06] MEDS: CARBIDOPA/LEVODOPA 1 EACH CAPSULE.ER 4 EACH PO ×4 (06:28→18:52)
[2023-08-06 07:01] LABS: Bedside Glucose 118 mg/dL (74-106)
[2023-08-06 07:07] VITALS: O2SAT 95
[2023-08-06] MEDS: Glucerna Shake 120 ML LIQUID PO ×3 (08:11→17:02)
[2023-08-06] MEDS: Propranolol 10 MG Tablet PO ×2 (08:12→21:39)
[2023-08-06] MEDS: LEVODOPA 42 MG 84 MG INHALATION ×3 (08:12→17:02)
[2023-08-06] MEDS: Arthritis Pain Compound 60 CLICK TUBE TOPICAL ×2 (08:12→21:37)
[2023-08-06] MEDS: Docusate Sodium 100 MG Capsule PO (08:12)
[2023-08-06] MEDS: Clopidogrel Bisulfate 75 MG Tablet PO (08:12)
[2023-08-06 08:13] VITALS: BP 110/66; PULSE 62; RESP 16; TEMP 36.2; O2SAT 96
[2023-08-06] MEDS: DULoxetine Hcl 60 MG Capsule 120 MG PO (08:13)
[2023-08-06] MEDS: dilTIAZem 60 MG Tablet PO ×2 (08:13→21:38)
[2023-08-06] MEDS: Famotidine 20 MG Tablet PO ×2 (08:13→21:40)
[2023-08-06] MEDS: Cholecalciferol (VIT D3) 25 MCG TABLET (1,000 UNITS) 50 MCG PO (08:13)
[2023-08-06] MEDS: Psyllium 1 PACKET PO (08:14)
[2023-08-06] MEDS: Omega-3 Acid Ethyl Esters 1 GM Capsule PO (08:14)
[2023-08-06] MEDS: Empagliflozin 25 MG Tablet 12.5 MG PO (08:14)
[2023-08-06 10:00] VITALS: PULSE 62; O2SAT 94
[2023-08-06 19:15] LABS: Bedside Glucose 151 mg/dL (74-106)
[2023-08-06 19:30] VITALS: BP 123/70; PULSE 59; RESP 17; TEMP 36.7; O2SAT 98
[2023-08-06 21:35] VITALS: BP 124/77; PULSE 73
[2023-08-06] MEDS: Doxazosin 4 MG Tablet 8 MG PO (21:38)
[2023-08-06] MEDS: Atorvastatin Calcium 40 MG Tablet PO (21:39)
[2023-08-06] MEDS: traZODone 100 MG Tablet 200 MG PO (21:39)
[2023-08-06] MEDS: MELATONIN 3 MG TABLET 9 MG PO (21:40)
[2023-08-06] MEDS: clonazePAM 0.5 MG Tablet PO (21:43)
[2023-08-06] MEDS: Gabapentin 300 MG Capsule PO (21:43)
[2023-08-07] MEDS: Enoxaparin 40 MG/0.4 ML Syringe SC (06:32)
[2023-08-07] MEDS: CARBIDOPA/LEVODOPA 1 EACH CAPSULE.ER 4 EACH PO ×4 (06:32→19:39)
[2023-08-07 06:59] LABS: Bedside Glucose 119 mg/dL (74-106)
[2023-08-07 07:34] VITALS: BP 101/64; PULSE 60; RESP 17; TEMP 37.1; O2SAT 96
[2023-08-07] MEDS: Famotidine 20 MG Tablet PO ×2 (07:53→21:04)
[2023-08-07] MEDS: Cholecalciferol (VIT D3) 25 MCG TABLET (1,000 UNITS) 50 MCG PO (07:53)
[2023-08-07] MEDS: Psyllium 1 PACKET PO (07:53)
[2023-08-07] MEDS: DULoxetine Hcl 60 MG Capsule 120 MG PO (07:53)
[2023-08-07] MEDS: Omega-3 Acid Ethyl Esters 1 GM Capsule PO (07:53)
[2023-08-07] MEDS: Clopidogrel Bisulfate 75 MG Tablet PO (07:54)
[2023-08-07] MEDS: Propranolol 10 MG Tablet PO ×2 (07:54→21:03)
[2023-08-07] MEDS: dilTIAZem 60 MG Tablet PO ×2 (07:56→21:03)
[2023-08-07] MEDS: Docusate Sodium 100 MG Capsule PO (07:56)
[2023-08-07] MEDS: Empagliflozin 25 MG Tablet 12.5 MG PO (07:57)
[2023-08-07 08:01] VITALS: BP 117/70; PULSE 63
[2023-08-07] MEDS: LEVODOPA 42 MG 84 MG INHALATION ×3 (09:04→16:38)
--- NOTE | 2023-08-07 11:04 | PCM.PROGNOTE ---
Subjective Subjective Arcenio was seen on team rounds today. His Guera was present in the room for rounds. Afebrile VSS - Maintaining appropriate oxygen saturation on RA Oral intake - FOOD good FLUIDS good Blood sugars are well-controlled with no hypoglycemia. Discussed with nursing - no problems that need addressed Reviewed the THERAPY notes - All the therapists feel that he is ready to DC home with OP PT/ST Medication list reviewed. Antithyroid antibodies and hypercoagulable workup still pending. I reviewed the lab he had done in May of 2022 and the protein/immuno electrophoresis was unremarkable. W/U for autoimmune disease was also negative at that time. [facility]. Arcenio denies PRADO, CP, SOB, N/V/abd pain, dysuria and calf tenderness. He is sleeping well at night and his appetite is good. Objective Data Objective Data Vital Signs: Vital Signs Temp Pulse Resp BP Pulse Ox O2 Del Method 98.7 F 63 17 117/70 96 Room Air 08/07/23 07:34 08/07/23 08:01 08/07/23 07:34 08/07/23 08:01 08/07/23 07:34 08/07/23 07:34 Oxygen Delivery Method Room Air Weight: 218 lb 4.122 oz Body Mass Index (BMI) 30.7 Intake & Output: Intake and Output for Last 24 Hours 08/05/23 08/06/23 08/07/23 23:59 23:59 23:59 Intake Total 2800 / 2800 2800 / 2800 400 / 400 Output Total 1780 / 1780 2750 / 2750 1000 / 1000 Balance 1020 / 1020 50 / 50 -600 / -600 Lab / Micro Data 08/03/23 05:01 08/03/23 05:01 Labs: Laboratory Results - last 24 hr 08/06/23 18:55: POC Glucose 151 H 08/07/23 06:39: POC Glucose 119 H Physical Exam Const alert, oriented x3 and no apparent distress Constitutional Narrative: Speech is more fluent. Voice is soft. General Appearance: cooperative and comfortable HEENT moist oral mucous membranes and oropharynx normal Eyes PERRL and EOMs intact bilaterally Eyes Narrative: No conjunctival injection, no scleral icterus, no discharge from the eyes and no mattering of the eyelashes. No visual field cuts. No visual extinction. Neck no lymphadenopathy, supple, no JVD, No nodes and no carotid bruits Neck Narrative: Carotids have brisk upstroke and good pulse volume bilaterally. Resp clear to auscultation bilaterally Resp Narrative: Not tachypneic and no conversational dyspnea. Cardio regular rate, regular rhythm, no murmurs and no gallops GI normal to inspection, nondistended, normoactive bowel sounds, soft to palpation and non-tender GI Narrative: No guarding with palpation. Extremity no calf tenderness General Extremity: Negative for edema Skin no wounds, no jaundice and no petechiae Skin Narrative: No rashes, no skin breakdown. General Skin Exam: no breakdown Rashes: no rashes Neuro oriented x3 and no sensory deficits noted Neuro Narrative: He has mild ataxia with the RUE. Nor drift of the RUE or the RLE but, strength is diminished on the R side. Poor coordination of the R hand and he is R hand dominant. No sensory loss, no extinction, no dysarthria and no aphasia. He has resting tremors of the hands. No significant bradykinesia or rigidity. Speech is a little halting at times as if he is searching for the word. Motor Exam: strength 5/5 throughout Psych cooperative and affect normal Psych Narrative: Appropriate, making good eye contact. Able to stay on topic and focus but, at times he has to think about what word he wants to say. No flight of ideas. Does not appear anxious or depressed. Conversant and relating well to staff. Affect is flat. 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 Doing very well with therapy. Has ambulated up to 2,500 ft without a AD with no LOB. Speech is fluent with no hesitations with word finding when he is talking with me today. 2. Plan DC home tomorrow with OP PT/ST at [facility] 3. He will call me at the end of the week to discuss the results of the hypercoagulable panel and the anti-thyroid antibodies. 4. He is agreeable to following up with endocrinology in 2 months for possible hypogonadism. Will schedule an appt with Dr. Purvis. 5. He understands that he is not to take Testosterone due to the increase risk for thromboembolic events All questions were answered and plans for discharge were discussed. Charges/Coding Visit Charges Inpatient E&M: 24065 Subs Hosp L2
--- NOTE | 2023-08-07 12:47 | CASEMGMT ---
Addendum entered by Paty Najera 08/07/23 18:24: SW submitted referral to [facility] for outpatient therapy for PT and ST services. Original Note: Social Work IDT met with patient and , Guera at bedside to complete care plans. Discussed patient progress with therapy (PT/OT/ST) and nursing. Patient is independent with ambulation 2500ft, 20 steps. independent with transfers and IADL. Per ST, patient previously scored 39/50 on B-Cat. Patient has improved with therapy. Speech therapy is recommending for continued therapy outpatient. SW discussed discharge plans for outpatient therapy. Patient would like to discharge to [facility]. SW to order PT/ST for outpatient therapy. Patient will follow up with physician outpatient. Physician discussed discharge recommendations to discharge on 08/07. SW will continue to follow up to arrange discharge. ANA ROSA Gutierrez
[2023-08-07 13:07] LABS: Dilute Prothrombin Time (dPT) 38.7 sec (0.0-47.6); Dilute Russell Viper Venom 45.1 sec (0.0-47.0); Interpretation Comment: (.); PTT-LA 40.5 sec (0.0-43.5); Thrombin Time 18.5 sec (0.0-23.0); dPT Confirm Ratio 1.25 Ratio (0.00-1.34)
--- NOTE | 2023-08-07 15:39 | PCM.DC ---
Discharge Instructions Diet Discharge Diet: - (Low-fat, low-salt, consistent carbohydrate.) Activity Discharge Activity: [address] and - (No assistive device necessary) Weight Bearing Status: Full weight bearing Dressing / Incision Call your doctor if you observe: Fever of 101 or Higher, Inability to urinate, Shortness of breath, Dizziness, Fainting spells, Swelling in the ankles, Chest pain, Increased palpitations (irregular heartbeat), Calf discomfort and - (STROKE symptoms: facial droop, slurred speech, inability to get words out, weakness on 1 side of the body and not the other, numbness on 1 side of the body and not the other, inability to maintain your balance sitting or standing, vertigo. ) Follow Up Care Please Follow Up With: JUSTIN Giron When: You will also need to follow up with Dr. Andrea and with endocrinology. Test Results: Test results from this visit will be discussed in further detail at your follow-up appointment, if applicable. Pending Tests Upon Discharge: Hypercoagulable panel and anti-thyroid antibodies. Discharge Plan Admission Admit Date/Time: 08/02/23 15:54 Primary Reason for Your Visit: Post stroke debility Attending Provider: Aisha Rios Primary Care Provider: [facility],[place] Instructions Patient Instructions: Depo-Testosterone Injectable Solution 200 mg/mL, Understanding Parkinson Disease, Parkinson Common Symptoms, Orthostatic Hypotension Additional Instructions / Restrictions: 1. Testosterone supplementation can cause strokes and heart attacks due to formation of blood clots that can occlude an artery in the heart or the brain. Not everyone on testosterone has these complications. You had some lab done in the hospital to test for a hypercoagulable disorder. These are send out tests and the results will not be back until the end of the week. Please call me on Monday at [phone] (cell) or [phone] (office) and we can discuss the results with you. Do not take any Testosterone until you follow up with endocrinology. 2. The arteries in the brain and the neck have no evidence of significant stenosis (narrowing that would restrict blood flow). They look normal. Your diabetes and cholesterol are very well controlled. You had an event monitor 2 years ago looking for atrial fibrillation and you did not have AFIB. You had a heart catheterization in February of 2023 and the coronary arteries are normal. You have had a ECHO in the past that was negative for a PFO. You had an EEG(brain wave study) in the hospital and it was negative for seizures. I have to think it is the Testosterone that is causing the strokes. 3. You are taking a drug called Prazosin for high blood pressure. This drug tends to decrease the BP with going from lying to sitting and sitting to standing. This is called orthostatic hypotension. Some of the other medications you are taking can also cause orthostatic hypotension. Parkinson's disease also causes orthostatic hypotension. You have orthostatic hypotension BUT, you are currently asymptomatic. If you start having lightheadedness when you are standing or become dizzy with standing, seth prolonged standing, you PCP may want to consider decreasing the dose of the Prazosin or discontinuing this medication and starting aonther antihypertensive that is less likely to contribute to orthostatic hypotension. 4. If you or Guera have any questions after returning home please do not hesitate to call me. OFFICE: [phone] CELL: [phone] Discharge Orders/Prescriptions Prescriptions: Continued Inbrija 42 mg capsule, w/inhalation device 84 mg inhalation 0900,1300,1700 propranolol 10 mg tablet 10 mg PO BID duloxetine 60 mg capsule,delayed release(DR/EC) 120 mg PO DAILY melatonin 3 MG tablet 9 mg PO QHS trazodone 100 MG tablet 200 mg PO QHS famotidine 20 MG tablet 20 mg PO BID prazosin 5 mg Capsule 10 mg PO QHS diltiazem HCl 60 mg Tablet 60 mg PO BID omega-3 fatty acids Capsule 1,000 mg PO DAILY cholecalciferol (vitamin D3) 50 mcg (2,000 unit) Tablet 50 mcg PO DAILY Jardiance 25 mg Tablet 12.5 mg PO DAILY Rytary 36.25-145 mg Capsule, Extended Release 4 cap PO 4X/DAY Rx Instructions: takes at 7am,11am,3pm,7pm clopidogrel 75 mg Tablet 75 mg PO DAILY Qty: 21 0RF clonazepam 0.5 mg tablet 0.5 mg PO QHS diclofenac sodium 1 % gel 4 g topical BID PRN (Reason: OSTEOARTHRITIS) gabapentin 300 mg capsule 300 mg PO QHS sildenafil 100 mg tablet 100 mg PO DAILY PRN (Reason: sexual activity) icosapent ethyl 1 gram capsule 2 g PO BID Discontinued rosuvastatin 20 mg Tablet 20 mg PO QHS lidocaine 5 % Adhesive Patch,Medicated 1 patch topical DAILY PRN (Reason: SEVERE PAIN) Protocol: *Topical Application Instructions APPLICATION INSTRUCTIONS: right forearm. Rx Instructions: PATCH SHOULDNT BE LEFT ON SKIN FOR MORE THAN 12 HOURS testosterone cypionate [Depo-Testosterone] 200 mg/mL oil 200 mg IM .[id number] docusate sodium 100 mg Capsule 100 mg PO DAILY Qty: 0 0RF Daily Fiber (psyllium-aspart) 3 gram Powder In Packet 1 packet PO DAILY Qty: 0 0RF Referrals / Follow Up: Anais Andrea [Other] - 08/30/23 (patient made appointment and has the time written down) Gavin Purvis MD [Med Staff - Courtesy Staff] - [facility] [Primary Care Provider] - (patient will make appointment) Disposition Disposition (needs filled in before D/C Order can be placed): Home, Self Care
[2023-08-07 16:09] LABS: Thyroglobulin Antibody < 1.0 IU/mL (0.0-0.9); Thyroid Peroxidase AB 11 IU/mL (0-34)
--- NOTE | 2023-08-07 16:26 | DS.PCM_ITS ---
Providers Date of Admission: 08/02/23 Date of Discharge: 08/08/23 Primary Care Physician: [facility] Reason For Visit: CVA Diagnosis Discharge Diagnosis (1) Debility: Status: Acute Code(s): R53.81 - Other malaise (2) Acute CVA (cerebrovascular accident): Status: Acute Code(s): I63.9 - Cerebral infarction, unspecified Plan: Received TNK. MRI negative post TNK but, sx of R side weakness and cognitive dysfunction persisted. EEG negative. No PFO on ECHO. CTA of the head and neck normal. He will discontinue Testosterone until seen by Endocrinology and Neurology. He had a event monitor in 2021 that was negative for AF. ECHO shows LVH but, no atrial enlargement. 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 Speech is fluent with better projection. (4) Weakness of right side of body: Status: Acute Code(s): R53.1 - Weakness Plan: This is persistent although it is mildly better at [facility] than at admission to rehab. (5) Hx of Parkinson's disease: Status: Chronic Code(s): Z86.69 - Personal history of other diseases of the nervous system and sense organs Plan: Will continue to follow up with Dr. Andrea at [facility] in [place]. (6) Orthostatic hypotension: Status: Acute Code(s): I95.1 - Orthostatic hypotension Plan: Asymptomatic. Likely multifactorial due to PD, medications such as Prazosin, Diltiazem, Propanolol, etc. [id number] is the most likely culprit. since he is asymptomatic no changes were made in his drug regimen. Plan 1. Doing very well with therapy. Has ambulated up to 2,500 ft without a AD with no LOB. Speech is fluent with no hesitations with word finding when he is talking with me today. 2. Plan DC home tomorrow with OP PT/ST at [facility] 3. He will call me at the end of the week to discuss the results of the hypercoagulable panel and the anti-thyroid antibodies. 4. He is agreeable to following up with endocrinology in 2 months for possible hypogonadism. Will schedule an appt with Dr. Purvis. 5. He understands that he is not to take Testosterone due to the increase risk for thromboembolic events All questions were answered and plans for discharge were discussed. Medications at Discharge Home Medications melatonin 3 mg tablet 9 mg PO QHS SLEEP 05/12/19 trazodone 100 mg tablet 200 mg PO QHS SLEEP 05/12/19 famotidine 20 mg tablet 20 mg PO BID GERD 02/17/20 levodopa 42 mg capsule with inhalation device (Inbrija) 84 mg inhalation 0900,1300,1700 PARKINSONS 02/16/21 propranolol 10 mg tablet 10 mg PO BID HYPERTENSION 02/16/21 carbidopa ER 36.25 mg-levodopa 145 mg capsule,extended release (Rytary) 4 cap PO 4X/DAY Parkinsons 11/30/21 cholecalciferol (vitamin D3) 50 mcg (2,000 unit) tablet 50 mcg PO DAILY SUPPLEMENT 11/30/21 diltiazem HCl 60 mg tablet 60 mg PO BID HYPERTENSION/AGINA 11/30/21 empagliflozin 25 mg tablet (Jardiance) 12.5 mg PO DAILY DIABETES 11/30/21 omega-3 fatty acids 1,000 mg PO DAILY SUPPLEMENT 11/30/21 prazosin 5 mg capsule 10 mg PO QHS HYPERTENSION 11/30/21 duloxetine 60 mg capsule,delayed release 120 mg PO DAILY DEPRESSION 03/29/22 clopidogrel 75 mg tablet 75 mg PO DAILY BLOOD THINNER #21 tabs 01/12/23 clonazepam 0.5 mg tablet 0.5 mg PO QHS PANIC ATTACKS 03/16/23 diclofenac sodium 1 % topical gel 4 g topical BID PRN OSTEOARTHRITIS 03/16/23 gabapentin 300 mg capsule 300 mg PO QHS RESTLESS LEG SYNDROME 03/16/23 sildenafil 100 mg tablet 100 mg PO DAILY PRN sexual activity 03/16/23 icosapent ethyl 1 gram capsule 2 g PO BID Cholesterol 07/30/23 Hospital Course Operations None Procedures None Summary of Care Provided Minutes Spent on Discharge: 40 Hospital Course: KRISHAN BURNHAM, is a 58-year-old M with a past medical history of Parkinson's disease, diabetes mellitus type 2, dyslipidemia, obstructive sleep apnea, obesity, intermittently + lupus anticoagulant, diverticulosis, BPH, osteoarthritis and previous ischemic CVAs who presented to the emergency department at [facility] on 07/30/2023 as a stroke alert. His told the emergency room physician that they were at the store around 4 PM and he started he felt weak and needed to go to the car to sit down. When they got home he was able to get into the house. His took the dog out and when she returned at approximately 4:15 PM Krishan was slow to answer questions and was having difficulty with speech as well as right-sided weakness. She called 911 and EMS transported him to the emergency department at [facility]. His last stroke was in December of 2022 and he had similar sx. MRI was negative on that admission. He received TNK at that time. NIHSS score was 9 at presentation to the ER for facial palsy weakness of the right upper extremity and the right lower extremity, sensory deficit and aphasia. Stat noncontrast CT brain showed bilateral maxillary sinusitis but no acute intracranial disease. CTA of the head and neck was normal. Teleneurology was consulted from the emergency department and the neurologist felt the patient was a good candidate for TNK. He received TNK in the emergency department and then was admitted to the hospitalist service. A transthoracic echocardiogram showed mild concentric left ventricular hypertrophy with an ejection fraction of 60% and no regional wall motion abnormalities. There was mild TR. Pulmonary artery systolic pressure was estimated at 20 mmHg. He had a cardiac catheterization and February 2023 that showed normal coronaries and normal left ventricular size, wall motion and systolic function. He had a event monitor in 2021 that showed normal sinus rhythm with no AF. He had a brain MRI done on 07/31/2023 and it showed no intracranial mass, hemorrhage or acute territorial infarct. Despite the fact that the radiology report said no acute stroke he has persistent new neurologic deficits and he is being managed as an acute ischemic stroke. In the past 2 years Krishan has been treated 3 times with either TNK or TPA. On all 3 occasions he presented to the ED with PRADO, R side weakness, slurred speech and trouble word finding. In November of 2021 the MRI was read negative by radiology BUT, tele-neurology said MRI was + for a R midbrain lacunar infarct. MRI's in December of 2022 and July of 2023 have both been read negative by the radiologist. EEG during most recent hospitalization was negative for seizure activity. A hypercoagulable panel was recommended in the past and was to be done as an OP......[facility] never [facility] we requested so I do not know if a hypercoagulable W/U was done. Krishan tells me that in the past he had a + lupus anticoagulant. He has a brother who has had a stroke but, the brother has a PFO. Krishan had an ECHO with a bubble study in the past that was negative for PFO. A hypercoagulable panel was sent from rehab and the results are still pending at the time of [facility]. The results may be tainted by recent TNK. I am referring him to hematology at [facility] for a better evaluation for hypercoagulable states. It seems very odd to me that he would have the same sx each of the last 3 presentations to the ER. Sx are not always associated with a PRADO. Event monitor was negative for PAF in the past. Krishan also told me that he has episodes than can last from a few days to a few weeks of increased weakness and muscle spasms in his legs. He also gets weakness in his arms and tingling in his hands. He denies any spinal cord injuries. When he gets these episodes he develops urinary frequency/urgency and sometimes has nocturia every hour at night. He does not feel as though he is emptying his bladder and he has lower abdominal bloating/fullness. He has not told his neurologist about these sx. He denies lightheadedness. Krishan improved significantly within a few days following admission to rehab. Speech was no longer halting and he was not having problems with word finding. He had persistent RUE/RLE weakness but it was very mild at [facility] from rehab. He is R hand dominant. He was able to ambulate without and assistive device with no LOB. Krishan was told not to take Testosterone and he is going to follow up with endocrinology, Dr. Gavin Purvis. He is also going to follow up with hematology regarding possible hypercoagulable illness. Both his mother and brother have had VTE in past. He is aware that Testosterone supplementation can cause cerebrovascular and cardiac events/thrombosis. I am not sure that this is the case though because why would he have the same symptoms every time if the cause is ischemic CVA due to thrombosis. 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 He is going to follow up with Dr. Anais Andrea from neurology post [facility]. I have asked Krishan to explain to Dr. Andrea about the other neurologic sx he is having episodically and resolve in a few days to a few weeks without treatment. Krishan is going to call me at the end of this week to review the results of the hypercoagulable panel......results could be affected by the administration of TNK at admission to the hospital and I have also requested he follow up with hematology at [facility]. He is also going to follow up with endocrinology following DC from rehab. Weight / BMI Weight Weight: 218 lb 4.122 oz Body Mass Index (BMI) 30.7 ABG / Lab / Microbiology Data 08/03/23 05:01 08/03/23 05:01 Laboratory: Laboratory Results - last 24 hr 08/04/23 09:30: Thyroglobulin Antibody < 1.0, Thyroid Peroxidase Ab 11 08/04/23 15:50: PT Diluted 38.7, PT Ratio 1.25, Thrombin Time 18.5, Lupus Anticoag aPTT 40.5, Dil Miguel Angel Viper Venom 45.1, Lupus Anticoag Interp Comment: 08/06/23 18:55: POC Glucose 151 H 08/07/23 06:39: POC Glucose 119 H Indicators for Scoring Admitted with or Primary Diagnosis of CVA/Stroke: Yes Hx of CVA/Stroke: Yes Modified Una Score MRS Score at time of Evaluation: 2-Slight disability NIHSS NIHSS 1a. Level of Consciousness: Alert; keenly responsive 1b. LOC Questions: Answers BOTH questions correctly. 1c. LOC Commands: Performs both tasks correctly. 3. Visual: No visual loss 4. Facial Palsy: Normal symmetrical movements 5a. Left Arm: No drift; arm holds 90 (or 45) degrees for full 10 seconds 5b. Right Arm: No drift; arm holds 90 (or 45) degrees for full 10 seconds 6a. Left Leg: No drift; leg holds 30-degree position for full 5 seconds 6b. Right Leg: No drift; leg holds 30-degree position for full 5 seconds 7. Limb Ataxia: Absent 8. Sensory: Normal; no sensory loss 9. Best Language: No aphasia; normal 10. Dysarthria: Normal 11. Extinction and Inattention: No abnormality Total: 0 Stroke Questions Stroke Team Activated: No D/C Instructions Discharge Diet: - (Low-fat, low-salt, consistent carbohydrate.) Weight Bearing Status: Full weight bearing Call your doctor if you observe: Fever of 101 or Higher, Inability to urinate, Shortness of breath, Dizziness, Fainting spells, Swelling in the ankles, Chest pain, Increased palpitations (irregular heartbeat), Calf discomfort and - (STROKE symptoms: facial droop, slurred speech, inability to get words out, weakness on 1 side of the body and not the other, numbness on 1 side of the body and not the other, inability to maintain your balance sitting or standing, vertigo. ) Pending Tests Upon Discharge: Hypercoagulable panel and anti-thyroid antibodies. Please Follow Up With: JUSTIN Giron When: You will also need to follow up with Dr. Andrea and with endocrinology. Meaningful Use Info Meaningful Use Meaningful Use Diagnoses (Choose all that apply): Ischemic CVA CVA Therapy Assessed for PT,OT and/or ST?: Yes Ischemic Stroke Antithrombotic order at d/c?: Yes Dx of Atrial fib/flutter?: No Anticoagulant at discharge?: No Reason anticoagulant not ordered: Treatment not Indicated Statin Dosing Therapy Reference: STATIN DOSE THERAPY REFERENCE: * Patients > 75 years receive moderate or high dose statin therapy. * Patients 75 years or YOUNGER should receive HIGH intensity statin dose unless contraindicated. You will be required to document reason for non-treatment if statin daily dose does not meet guidelines. HIGH DOSE STATIN THERAPY DAILY Atorvastatin > than or = to 40 mg Rosuvastatin > than or = to 20 mg Amlodipine + Atorvastatin > than or = to 2.5/40 mg Ezetimibe + Simvastatin 10/80 mg Simvastatin 80mg Statins at discharge?: No Reason Statin not ordered: Adverse Reaction to Drug (He will resume Vascepa. ) If patient is 75 or younger, pt will be discharged on HIGH intensity statin.: No High intensity statin for patient 75 or younger not ordered due to: adverse reaction to statin in past. He is going to resume Vascepa. Primary Dx Acute Ischemic CVA?: Yes IV thrombolytic ordered during stay?: No Reason IV thrombolytic not ordered: Procedure not Indicated (He received TNK in the ED at he time of the initial event prior to coming to acute rehab. ) Discharge Plan Admission Admit Date/Time: 08/02/23 15:54 Primary Reason for Your Visit: Post stroke debility Attending Provider: Aisha Rios Primary Care Provider: [facility] Instructions Patient Instructions: Depo-Testosterone Injectable Solution 200 mg/mL, Understanding Parkinson Disease, Parkinson Common Symptoms, Orthostatic Hypotension Additional Instructions / Restrictions: 1. Testosterone supplementation can cause strokes and heart attacks due to formation of blood clots that can occlude an artery in the heart or the brain. Not everyone on testosterone has these complications. You had some lab done in the hospital to test for a hypercoagulable disorder. These are send out tests and the results will not be back until the end of the week. Please call me on Monday at [phone] (cell) or [phone] (office) and we can discuss the results with you. Do not take any Testosterone until you follow up with endocrinology. 2. The arteries in the brain and the neck have no evidence of significant stenosis (narrowing that would restrict blood flow). They look normal. Your diabetes and cholesterol are very well controlled. You had an event monitor 2 years ago looking for atrial fibrillation and you did not have AFIB. You had a heart catheterization in February of 2023 and the coronary arteries are normal. You have had a ECHO in the past that was negative for a PFO. You had an EEG(brain wave study) in the hospital and it was negative for seizures. I have to think it is the Testosterone that is causing the strokes. 3. You are taking a drug called Prazosin for high blood pressure. This drug tends to decrease the BP with going from lying to sitting and sitting to standing. This is called orthostatic hypotension. Some of the other medications you are taking can also cause orthostatic hypotension. Parkinson's disease also causes orthostatic hypotension. You have orthostatic hypotension BUT, you are currently asymptomatic. If you start having lightheadedness when you are standing or become dizzy with standing, seth prolonged standing, you PCP may want to consider decreasing the dose of the Prazosin or discontinuing this medication and starting aonther antihypertensive that is less likely to contribute to orthostatic hypotension. 4. If you or Guera have any questions after returning home please do not hesitate to call me. OFFICE: [phone] CELL: [phone] Discharge Orders/Prescriptions Prescriptions: Continued Inbrija 42 mg capsule, w/inhalation device 84 mg inhalation 0900,1300,1700 propranolol 10 mg tablet 10 mg PO BID duloxetine 60 mg capsule,delayed release(DR/EC) 120 mg PO DAILY melatonin 3 MG tablet 9 mg PO QHS trazodone 100 MG tablet 200 mg PO QHS famotidine 20 MG tablet 20 mg PO BID prazosin 5 mg Capsule 10 mg PO QHS diltiazem HCl 60 mg Tablet 60 mg PO BID omega-3 fatty acids Capsule 1,000 mg PO DAILY cholecalciferol (vitamin D3) 50 mcg (2,000 unit) Tablet 50 mcg PO DAILY Jardiance 25 mg Tablet 12.5 mg PO DAILY Rytary 36.25-145 mg Capsule, Extended Release 4 cap PO 4X/DAY Rx Instructions: takes at 7am,11am,3pm,7pm clopidogrel 75 mg Tablet 75 mg PO DAILY Qty: 21 0RF clonazepam 0.5 mg tablet 0.5 mg PO QHS diclofenac sodium 1 % gel 4 g topical BID PRN (Reason: OSTEOARTHRITIS) gabapentin 300 mg capsule 300 mg PO QHS sildenafil 100 mg tablet 100 mg PO DAILY PRN (Reason: sexual activity) icosapent ethyl 1 gram capsule 2 g PO BID Discontinued rosuvastatin 20 mg Tablet 20 mg PO QHS lidocaine 5 % Adhesive Patch,Medicated 1 patch topical DAILY PRN (Reason: SEVERE PAIN) Protocol: *Topical Application Instructions APPLICATION INSTRUCTIONS: right forearm. Rx Instructions: PATCH SHOULDNT BE LEFT ON SKIN FOR MORE THAN 12 HOURS testosterone cypionate [Depo-Testosterone] 200 mg/mL oil 200 mg IM .[id number] docusate sodium 100 mg Capsule 100 mg PO DAILY Qty: 0 0RF Daily Fiber (psyllium-aspart) 3 gram Powder In Packet 1 packet PO DAILY Qty: 0 0RF Referrals / Follow Up: Anais Andrea [Other] - 08/30/23 (patient made appointment and has the time written down) Gavin Purvis MD [Med Staff - Courtesy Staff] - [facility] [Primary Care Provider] - (patient will make appointment) Disposition Disposition (needs filled in before D/C Order can be placed): Home, Self Care Charges/Coding Visit Charges Inpatient E&M: 16518 Disch Hosp >30min
[2023-08-07 16:50] LABS: Bedside Glucose 230 mg/dL (74-106)
[2023-08-07 21:01] VITALS: BP 130/77; PULSE 64; RESP 16; TEMP 36.4; O2SAT 96
[2023-08-07] MEDS: Arthritis Pain Compound 60 CLICK TUBE TOPICAL (21:02)
[2023-08-07] MEDS: Doxazosin 4 MG Tablet 8 MG PO (21:03)
[2023-08-07] MEDS: traZODone 100 MG Tablet 200 MG PO (21:03)
[2023-08-07] MEDS: MELATONIN 3 MG TABLET 9 MG PO (21:03)
[2023-08-07] MEDS: Atorvastatin Calcium 40 MG Tablet PO (21:04)
[2023-08-07] MEDS: Gabapentin 300 MG Capsule PO (21:07)
[2023-08-07] MEDS: clonazePAM 0.5 MG Tablet PO (21:07)
[2023-08-08] MEDS: CARBIDOPA/LEVODOPA 1 EACH CAPSULE.ER 4 EACH PO (06:24)
[2023-08-08] MEDS: Enoxaparin 40 MG/0.4 ML Syringe SC (06:25)
[2023-08-08 07:03] LABS: Bedside Glucose 155 mg/dL (74-106)
[2023-08-08 07:47] VITALS: BP 128/76; PULSE 58; RESP 16; TEMP 36.4; O2SAT 98
[2023-08-08] MEDS: Docusate Sodium 100 MG Capsule PO (10:22)
[2023-08-08] MEDS: Omega-3 Acid Ethyl Esters 1 GM Capsule PO (10:22)
[2023-08-08] MEDS: Cholecalciferol (VIT D3) 25 MCG TABLET (1,000 UNITS) 50 MCG PO (10:22)
[2023-08-08] MEDS: dilTIAZem 60 MG Tablet PO (10:22)
[2023-08-08] MEDS: Propranolol 10 MG Tablet PO (10:23)
[2023-08-08] MEDS: Clopidogrel Bisulfate 75 MG Tablet PO (10:23)
[2023-08-08] MEDS: Psyllium 1 PACKET PO (10:23)
[2023-08-08] MEDS: Famotidine 20 MG Tablet PO (10:23)
[2023-08-08] MEDS: LEVODOPA 42 MG 84 MG INHALATION (10:24)
[2023-08-08] MEDS: DULoxetine Hcl 60 MG Capsule 120 MG PO (10:24)
[2023-08-08] MEDS: Empagliflozin 25 MG Tablet 12.5 MG PO (10:25)
[2023-08-08 15:09] LABS: Protein C Antigen 94 % (60-150); Protein C, Functional 99 % (73-180)
== END 2023-08-08 11:15 | disposition home or self-care (01) | DRG 57 ==
PROVIDERS: Admitting Provider Internal Medicine; Visit Provider Internal Medicine
DX: I69.351 Hemiplegia and hemiparesis following cerebral infarction affecting right dominant side (principal); E11.59 Type 2 diabetes mellitus with other circulatory complications; M32.9 Systemic lupus erythematosus, unspecified; E78.5 Hyperlipidemia, unspecified; E66.9 Obesity, unspecified; G20.A1 Parkinson's disease without dyskinesia, without mention of fluctuations; I10 Essential (primary) hypertension; I69.318 Other symptoms and signs involving cognitive functions following cerebral infarction; G47.33 Obstructive sleep apnea (adult) (pediatric); F41.8 Other specified anxiety disorders; K21.9 Gastro-esophageal reflux disease without esophagitis; I95.1 Orthostatic hypotension; I69.393 Ataxia following cerebral infarction; Z79.02 Long term (current) use of antithrombotics/antiplatelets; Z87.891 Personal history of nicotine dependence; Z79.84 Long term (current) use of oral hypoglycemic drugs; Z68.30 Body mass index [BMI] 30.0-30.9, adult; Z79.899 Other long term (current) drug therapy; N40.1 Benign prostatic hyperplasia with lower urinary tract symptoms; R39.14 Feeling of incomplete bladder emptying; R39.15 Urgency of urination; R35.0 Frequency of micturition
CPT/HCPCS: 36415; 80053; 81240; 81241; 82533; 82962; 83002; 83735; 84100; 84146; 85027; 85300; 85301; 85302; 85303; 86146; 86147; 86376; 86800; 92507; 92522; 92526; 92610; 94668; 96125; 97110; 97116; 97129; 97162; 97166; 97530; 97802; 99252; G0463

== ENCOUNTER 2024-09-17 11:04 | Emergency (ER) | payer OTHER, SELFPAY ==
[2024-09-17 11:04] VITALS: BP 166/91; PULSE 88; RESP 16; TEMP 36.8; O2SAT 96; BMI 33.9
[2024-09-17 11:22] VITALS: O2SAT 97
--- NOTE | 2024-09-17 11:22 | EKG12_ITS ---
Test Reason : CHEST PAIN Blood Pressure : */* mmHG Vent. Rate : 77 BPM Atrial Rate : 77 BPM P-R Int : 180 ms QRS Dur : 84 ms QT Int : 378 ms P-R-T Axes : 34 -24 2 degrees QTcB Int : 427 ms Normal sinus rhythm Minimal voltage criteria for LVH, may be normal variant ( R in aVL ) Borderline ECG Confirmed by Jhony Ortiz ([id number]), newspaper managing editor BRET ARCOS ([id number]) on 09/18/2024 1:47:09 PM Referred By: Confirmed By: Jhony Ortiz
--- NOTE | 2024-09-17 11:22 | CT_ITS ---
PROCEDURE: CTA CHST, ABD, PEL W AND/OR WO 09/17/2024 REASON FOR EXAM: PAIN TECHNIQUE: CTA CHST, ABD, PEL W AND/OR WO coronal and Sagittal reconstruction series were provided. One or more dose reduction techniques were used (e.g., Automated exposure control, adjustment of the mA and/or kV according to patient size, use of iterative reconstruction technique. CONTRAST: 100 cc Isovue 370 RADIATION DOSE SUMMARY: DLP: 1405 mGycm COMPARISON: None FINDINGS: CHEST: Lines and tubes: Surgical clips are noted in the right upper quadrant Mediastinum: There is no pathologic adenopathy by size criteria. Heart: Unremarkable Thoracic Aorta: The ascending aorta measures 3.3 cm. Distal arch = 3.0 cm, descending aorta = 2.5 cm. There is no aneurysm or dissection. The origin of the great vessels are normal in appearance. Minimal atherosclerotic calcifications are noted. Lungs and Airways: There is minimal atelectasis or scar at the right and left lung base. There is a 0.7 cm solid pulmonary nodule in the right lung base, image 98/286. Pleura: There is no pneumothorax or effusion Bones: There is no acute bony abnormality ABDOMEN AND PELVIS: Liver: Unremarkable Gallbladder: Surgically absent Spleen: Unremarkable Pancreas: Unremarkable Adrenals: Unremarkable Kidneys: Unremarkable Bladder: Unremarkable Reproductive Organs: Unremarkable Bowel: Surgical clips are noted in the rectosigmoid junction. Gas and stool is noted in the colon. The small bowel loops are nondistended. The appendix is not demonstrated. Vasculature: Scattered atherosclerotic calcifications are noted. The celiac and superior mesenteric artery origins are widely patent. The right and left renal artery origins are widely patent and appears single. The inferior mesenteric artery origin is patent. The iliac bifurcation is normal. The internal and external iliacs are widely patent to the level of the common femoral. Peritoneum / Retroperitoneum: There is no free air or free fluid. Bones: There is no acute bony abnormality. CT/CTA Chst, Abd, Pel W and/or WO IMPRESSION: There is a 0.7 cm solid pulmonary nodule in the right lung base, image 98/286. this is unchanged compared to the May 26, [address] Continued follow-up is recommended. CTA of the chest abdomen and pelvis is within normal limits. Reading Location: [facility]
[2024-09-17 11:32] LABS: Hematocrit 43.4 % (40-54); Hemoglobin 15.1 g/dL (13.0-16.5); Immature Granulocytes Count 0.040 X10^3/uL (0.0-0.0); Mean Corp Hgb Conc 34.8 g/dL (32-36); Mean Corpuscular Volume 85.1 fL (80-94); Mean Platelet Vol. 10.3 fl (6.2-12.0); NRBC Flagged by Analyzer 0 % (0-5); Platelet Count 144 K/mm3 (150-450); RBC Distribution Width CV 12.7 % (11.6-14.6); RBC Distribution Width SD 38.8 fl (35.1-43.9); Red Blood Count 5.10 M/mm3 (4.6-6.2); White Blood Count 6.3 K/mm3 (4.4-11.0)
[2024-09-17 11:40] LABS: Prothrombin Time (Protime)PT. 12.5 SECONDS (11.7-14.9)
[2024-09-17 11:41] LABS: Partial Thromboplast Time 24.1 Seconds (24.1-36.2)
[2024-09-17 12:04] VITALS: BP 155/85; PULSE 70; RESP 15; O2SAT 94
--- NOTE | 2024-09-17 12:12 | ED.VIS.CHEST ---
HPI History of Present Illness Chief Complaint: Chest Pain Informant: patient Narrative Narrative: Patient reports yesterday 3 PM at rest transient sharp pain left lower abdomen. Half hour later no pain in the middle of his chest sharp in nature. He states pain went down to his abdomen feels it was pulsating per patient. Denies history of known aneurysms. Diabetes, hypertension history. Remote smoker. He states he had a heart cath a couple years ago here no intervention. Reports pain is 8 out of 10. No recent travel surgery or immobilizations. No history of PE or DVT. Father 19 stents in the past first 1 at age of 55. Grandfather with coronary disease. Prior Similar Symptoms: No CVD Risk Factors: Positive for Hypertension, Diabetes and Family History 1' </=55; Negative for Hypercholesterolemia or Smoking PE Risk Factors: Negative for Recent Travel/Surgery, Recent Immobilization or Prior DVT or PE [facility] Medical History BMI 34.0-34.9,adult Left ventricular hypertrophy Chronic prescription benzodiazepine use Type 2 diabetes mellitus Testosterone deficiency in male Diverticulosis Sprain and strain of left hand COVID-19 Alternating constipation and diarrhea Wrist pain De Quervain's tenosynovitis, right Cough Cellulitis of right wrist Acute stroke due to ischemia Lupus Wears glasses History of hiatal hernia CPAP (continuous positive airway pressure) dependence Acute cerebrovascular accident (CVA) due to ischemia COVID-19 vaccine series completed Former smoker Hypertension Hyperlipidemia HTN (hypertension) Parkinsons disease GERD (gastroesophageal reflux disease) Constipation Sleep apnea Depression with anxiety Abdominal pain Diverticulitis Home Medications Medication Instructions Recorded Last Taken Type melatonin 3 mg tablet 9 mg PO QHS SLEEP 05/12/19 03/15/23 History trazodone 100 mg tablet 200 mg PO QHS SLEEP 05/12/19 08/01/23 History famotidine 20 mg tablet 20 mg PO BID GERD 02/17/20 08/02/23 History levodopa 42 mg capsule with 84 mg inhalation 0900,1300,1700 02/16/21 08/02/23 History inhalation device (Inbrija) PARKINSONS propranolol 10 mg tablet 10 mg PO BID HYPERTENSION 02/16/21 08/02/23 History carbidopa ER 36.25 mg-levodopa 145 4 cap PO 4X/DAY Parkinsons 11/30/21 08/02/23 History mg capsule,extended release (Rytary) cholecalciferol (vitamin D3) 50 50 mcg PO DAILY SUPPLEMENT 11/30/21 08/02/23 History mcg (2,000 unit) tablet diltiazem HCl 60 mg tablet 60 mg PO BID HYPERTENSION/AGINA 11/30/21 03/16/23 History empagliflozin 25 mg tablet 12.5 mg PO DAILY DIABETES 11/30/21 08/02/23 History (Jardiance) omega-3 fatty acids 1,000 mg PO DAILY SUPPLEMENT 11/30/21 03/16/23 History prazosin 5 mg capsule 10 mg PO QHS HYPERTENSION 11/30/21 08/02/23 History duloxetine 60 mg capsule,delayed 120 mg PO DAILY DEPRESSION 03/29/22 08/02/23 History release clopidogrel 75 mg tablet 75 mg PO DAILY BLOOD THINNER #21 01/12/23 03/16/23 Rx tabs clonazepam 0.5 mg tablet 0.5 mg PO QHS PANIC ATTACKS 03/16/23 03/14/23 History diclofenac sodium 1 % topical gel 4 g topical BID PRN OSTEOARTHRITIS 03/16/23 Unknown History gabapentin 300 mg capsule 300 mg PO QHS RESTLESS LEG SYNDROME 03/16/23 03/15/23 History sildenafil 100 mg tablet 100 mg PO DAILY PRN sexual activity 03/16/23 Unknown History icosapent ethyl 1 gram capsule 2 g PO BID Cholesterol 07/30/23 08/02/23 History Allergy/AdvReac Type Severity Reaction Status Date / Time No Known Allergies Allergy Verified 07/30/23 17:20 Family History Mother Heart disease Hypertension High cholesterol Cancer skin cancer Father Heart disease High cholesterol Hypertension CVA (cerebral vascular accident) Surgical History S/P arthroscopic surgery of left knee History of colectomy (~02/2020) History of laparoscopic cholecystectomy History of appendectomy Social History household members: spouse number of children: 5 current occupational status: unemployed Smoking Status: Former smoker how long ago did patient quit smoking: Quit ~ 15 years prior, smoked socially only. alcohol intake: never substance use type: does not use ROS ROS ED Constitutional Constitutional ED: Denies chills, fever(s) or sweats ENT ENT ED: Denies sore throat Cardiovascular Cardiovascular: Reports chest pain; Denies leg edema, palpitations or racing heartbeat Respiratory/Chest Respiratory/Chest: Denies cough, dyspnea or dyspnea on exertion Gastrointestinal Gastrointestinal: Reports abdominal pain; Denies diarrhea, nausea or vomiting Genitourinary Genitourinary ED: Denies dysuria, hematuria or urinary frequency Musculoskeletal Musculoskeletal: Denies back pain, extremity pain or neck pain Integumentary Denies rash or wounds Neurologic Neurologic: Denies headache(s), paresthesias or weakness EXAM Physical Exam Const Vital Signs: 09/17/24 11:04 09/17/24 11:22 09/17/24 12:04 Temperature 98.3 F Temperature Source Oral Pulse Rate 88 70 Respiratory Rate 16 15 Blood Pressure 166/91 H 155/85 H Blood Pressure Mean 116 108 Pulse Ox 96 97 94 Oxygen Delivery Method Room Air Room Air Room Air 09/17/24 13:00 09/17/24 14:00 09/17/24 14:56 Temperature 98.3 F Temperature Source Pulse Rate 63 58 L 58 L Respiratory Rate 10 L 14 14 Blood Pressure 136/80 H 136/80 H Blood Pressure Mean 98 98 Pulse Ox 94 Oxygen Delivery Method Positive well nourished and well developed General Appearance ED: well developed and NAD HEENT Reports moist mucous membranes normocephalic and atraumatic Eyes General Eye ED: Yes normal appearance of both eyes Neck full ROM Chest Wall Chest: Negative for tenderness Resp normal respiratory effort and normal air movement Effort and Inspection: symmetric chest movement; Negative for respiratory distress Cardio regular rate, regular rhythm and no murmurs Peripheral Pulses: pulses 2+ throughout GI normal to inspection, nondistended, normoactive bowel sounds and non-tender GI Narrative: Negative Coombs and McBurney's. Unable to palpate any pulsatile mass. Palpation: Negative for guarding or rebound tenderness present Extremity normal to inspection General Extremety ED: Negative for edema or tenderness General Extremity: Negative for edema Neuro oriented x3 and no sensory deficits noted Sensorium / Orientation: awake and alert Skin no rashes or lesions noted and no wounds MDM MDM MDM Narrative Medical decision making narrative: Interventions / MDM: Differential diagnosis: Atypical chest pain, gastritis, abdominal pain Diagnosis considered but do not suspect: ACS however workup negative. Dissection aorta dissection however CT is negative. Pancreatitis however lipase normal. My EKG interpretation: Sinus rate of 77, no ST changes. States he will version these to be nonspecific. QTc 427. Imaging independently reviewed and interpreted by myself: CTA chest abdomen pelvis: No dissection noted. Stable right lung base nodule. External documents reviewed: Cardiac cath February 2023: Normal coronary arteries. Test considered but not ordered:N/A ED course: Patient lower belly pain in the chest pain that radiates down to his belly reporting pulsatile sensation. EKG was normal. With his history and reported symptoms will send directly to CT for dissection rule out. Cardiac workup initiated. Zofran morphine for pain control. 1200: I did not appreciate any dissection on my review of the CT scans. Awaiting final read. 1244: CT results negative for dissection. Incidental 0.7 cm pulmonary nodule right lung base unchanged from April 2022. No acute findings of chest abdomen or pelvis. Noted report from nursing he had pain left groin rating down his leg. Discussed with her he states mild however has mild mid chest pain down to his abdomen. I did not appreciate any kidney stones any hernias on the CT. There was no signs of colitis on the CT on my review also. There is lipase liver enzymes creatinine normal white count normal hemoglobin normal. I will order GI cocktail with some symptoms down his chest into his abdomen albeit it is improving after morphine. Will plan for delta troponins. Will reevaluate. 1435: Delta troponin also negative. Reviewing his records normal heart cath in 2023. With workup negative likely cardiac issues. He reports improvement of symptoms with GI cocktail. He reports he is on famotidine and omeprazole at home. He will continue this medicine. He is followed by his surgeon with endoscopies in the past. He sees Dr. Chavez. He denies black or bloody stools. I discussed continuing His medications monitoring symptoms. He will follow-up with his doctor. All questions were answered. Re-evaluation: stable Disposition discussed with patient/family/significant other: Patient Case discussed with consulting clinician: N/A This note was generated with Info [employer] dictation software. It may contain incorrect words, spelling, and punctuation that were not noted in checking the note before signing. Lab Data Attestation: I reviewed the patient's lab results. Labs: Laboratory Results - last 24 hr 09/17/24 09/17/24 11:09 13:15 WBC 6.3 RBC 5.10 Hgb 15.1 Hct 43.4 MCV 85.1 MCH 29.6 MCHC 34.8 RDW Std Deviation 38.8 RDW Coeff of Gail 12.7 Plt Count 144 L MPV 10.3 Immature Gran % (Auto) 0.600 Neut % (Auto) 58.4 Lymph % (Auto) 26.2 Porter % (Auto) 11.5 H Eos % (Auto) 2.7 Baso % (Auto) 0.6 Absolute Neuts (auto) 3.7 Absolute Lymphs (auto) 1.66 Nucleated RBC % 0 PT 12.5 INR 0.9 APTT 24.1 Sodium 138 Potassium 3.9 Chloride 101 Carbon Dioxide 21.5 Anion Gap 15 BUN 15 Creatinine 1.05 Estim Creat Clear Calc 95.68 Est GFR (MDRD) Non-Af 82 BUN/Creatinine Ratio 14.1 Glucose 205 H Calcium 9.2 Total Bilirubin 0.41 Direct Bilirubin 0.13 AST 22 ALT 28 Alkaline Phosphatase 81 Troponin T High Sens 11 Troponin T Hi Sens 2 Hr 11 Total Protein 7.4 Albumin 4.6 Globulin 2.9 Lipase 25 Radiography Diagnostic Testing: Clinical Impression(s) from Imaging Studies Chest/Abdomen/Pelvis CTA 09/17/24 11:22 IMPRESSION: There is a 0.7 cm solid pulmonary nodule in the right lung base, image 98/286. this is unchanged compared to the May 26, [address] Continued follow-up is recommended. CTA of the chest abdomen and pelvis is within normal limits. Reading [facility] Discharge Plan Triage Chief Complaint: Chest Pain ED Provider: Bib Beavers Dx/Rx/DC Orders Clinical Impression: Chest pain, Gastritis, Incidental pulmonary nodule, > 3mm and < 8mm Instructions: ED Chest Pain, Noncardiac, ED Gastritis (Adult) Prescriptions: No Action Inbrija 42 mg capsule, w/inhalation device 84 mg inhalation 0900,1300,1700 propranolol 10 mg tablet 10 mg PO BID duloxetine 60 mg capsule,delayed release(DR/EC) 120 mg PO DAILY melatonin 3 MG tablet 9 mg PO QHS trazodone 100 MG tablet 200 mg PO QHS famotidine 20 MG tablet 20 mg PO BID prazosin 5 mg Capsule 10 mg PO QHS diltiazem HCl 60 mg Tablet 60 mg PO BID omega-3 fatty acids Capsule 1,000 mg PO DAILY cholecalciferol (vitamin D3) 50 mcg (2,000 unit) Tablet 50 mcg PO DAILY Jardiance 25 mg Tablet 12.5 mg PO DAILY Rytary 36.25-145 mg Capsule, Extended Release 4 cap PO 4X/DAY Rx Instructions: takes at 7am,11am,3pm,7pm clopidogrel 75 mg Tablet 75 mg PO DAILY Qty: 21 0RF clonazepam 0.5 mg tablet 0.5 mg PO QHS diclofenac sodium 1 % gel 4 g topical BID PRN (Reason: OSTEOARTHRITIS) gabapentin 300 mg capsule 300 mg PO QHS sildenafil 100 mg tablet 100 mg PO DAILY PRN (Reason: sexual activity) icosapent ethyl 1 gram capsule 2 g PO BID Primary Care Provider: [facility],[place] Referrals: Jay Chavez MD [Med Staff - Active Staff] - 1-2 Weeks [facility],[place] [Primary Care Provider] - Activity Restrictions/Additional Instructions: Your cardiac workup negative. Review of records had a normal heart cath February 2023. CT chest abdomen pelvis notes a normal aorta. You have a stable pulmonary nodule right lower lobe. Your symptoms improved with the GI cocktail. Take your home medications. You are followed by Dr. Chavez for your endoscopies with with your history of partial colectomy for your diverticulitis. Follow-up for him for reevaluation. Monitor for any black or bloody stools. Print Language: Sammarinese Disposition Disposition: Home, Self Care Discharge Date/Time: 09/17/24 15:00
[2024-09-17 12:15] LABS: Lipase 25 U/L (13-75)
--- NOTE | 2024-09-17 12:15 | ED.RN ---
Dr. Beavers notified of patient's reported worsening pain that is now in groin and radiating through L leg.
[2024-09-17 12:16] LABS: AST(SGOT) 22 U/L (<=37); Alanine Aminotransfer ALT/SGPT 28 U/L (<=46); Albumin, Serum 4.6 g/dL (3.5-5.0); Alkaline Phosphatase 81 U/L (40-129); Bilirubin, Direct 0.13 mg/dL (0.00-0.30); Globulin 2.9 g/dL (2.2-4.2)
[2024-09-17 12:17] LABS: Anion Gap 15 (5-15); BUN 15 mg/dL (4-19); BUN/Creat Ratio 14.1 RATIO (10-20); Calcium,Total 9.2 mg/dL (7.6-11.0); Carbon Dioxide 21.5 mmol/L (21.0-32.0); Chloride 101 mmol/L (98-108); Estimated Creatinine Clearance 95.68 ml/min (50-250); Glucose 205 mg/dL (70-99); Potassium 3.9 mmol/L (3.3-5.1); Troponin T High Sensitivity 11 ng/L (<=22)
[2024-09-17 13:00] VITALS: BP 136/80; PULSE 63; RESP 10
[2024-09-17] MEDS: Lidocaine 2% Viscous15 ML UDC 15 ML PO (13:48)
[2024-09-17 14:00] VITALS: PULSE 58; RESP 14
[2024-09-17 14:04] LABS: Troponin T High Sens 2 HR 11 ng/L (<=22)
[2024-09-17 14:56] VITALS: BP 136/80; PULSE 58; RESP 14; TEMP 36.8; O2SAT 94
== END 2024-09-17 15:00 | disposition home or self-care (01) ==
PROVIDERS: Emergency Provider Emergency Medicine; Visit Provider Emergency Medicine
DX: R07.9 Chest pain, unspecified (principal); G20.A1 Parkinson's disease without dyskinesia, without mention of fluctuations; E11.9 Type 2 diabetes mellitus without complications; K29.70 Gastritis, unspecified, without bleeding; R91.1 Solitary pulmonary nodule; I10 Essential (primary) hypertension; Z90.49 Acquired absence of other specified parts of digestive tract; Z79.02 Long term (current) use of antithrombotics/antiplatelets; Z79.84 Long term (current) use of oral hypoglycemic drugs; Z79.899 Other long term (current) drug therapy; Z86.16 Personal history of COVID-19; Z87.891 Personal history of nicotine dependence; Z82.49 Family history of ischemic heart disease and other diseases of the circulatory system
CPT/HCPCS: 71275; 74174; 80048; 80076; 83690; 84484; 85025; 85610; 85730; 93005; 96374; 96375; 99284; Q9967; A4216; J2405

== ENCOUNTER 2024-10-27 14:50 | Emergency (ER) | payer OTHER, SELFPAY ==
[2024-10-27 14:51] VITALS: BP 153/78; PULSE 82; RESP 20; TEMP 36.3; O2SAT 96; BMI 33.3
[2024-10-27 15:13] LABS: Mucous, Urine 0 SEEN /hpf (<or=2+); Red Blood Cells-Urine 0 SEEN /hpf (0-5)
[2024-10-27 15:14] LABS: Color, Urine Yellow (Yellow); Glucose, Dipstick 1000 mg/dl (Normal); Ketone-Dipstick Negative (Negative); Leukocyte Esterase-Dipstick Negative /ul (Negative); Nitrite-Dipstick Negative (Negative); Occult Blood-Urine Negative /ul (Negative); Protein-Dipstick Negative (Negative); Specific Gravity, Urine 1.015 (1.002-1.030); Urine Bilirubin Dipstick Negative (Negative)
--- NOTE | 2024-10-27 15:14 | ED.VIS.GI ---
HPI HPI - GI History of Present Illness Chief Complaint: Abd Pain Informant: patient Abdominal Pain/Flank Pain Onset: Weeks Context: Gradual Onset Timing: Intermittent Location: Diffuse and LLQ Current Severity: Mild Maximum Severity: Mild Worsened by: Nothing Relieved by: Nothing Nausea/Vomiting/Emesis GI Symptom: Positive for Nausea Severity: Mild Diarrhea/Melena/Hematochezia GI Symptom: Positive for Diarrhea and - (Intermittent constipation) Onset: Days Severity: Mild Associated Symptoms Associated Symptoms: Negative for Dysuria, Frequency, Hematuria or Urgency Narrative Narrative: 59-year-old male history of prior diverticulitis, diabetes, prior cholecystectomy, appendectomy and partial colon resection due to diverticulitis and prior hernia repair. She has had intermittent abdominal pain last 2 to 3 weeks at times it is more in the left lower quadrant other times is diffuse. He has had no vomiting but some nausea. Intermittent loose stools and constipation. But he is having bowel movements. Denies any urinary symptoms. No weight change. Prior similar symptoms: Yes Recent Illness/Hospitalization: No PFSH PFSH Medical History BMI 34.0-34.9,adult Left ventricular hypertrophy Chronic prescription benzodiazepine use Type 2 diabetes mellitus Testosterone deficiency in male Diverticulosis Sprain and strain of left hand COVID-19 Alternating constipation and diarrhea Wrist pain De Quervain's tenosynovitis, right Cough Cellulitis of right wrist Acute stroke due to ischemia Lupus Wears glasses History of hiatal hernia CPAP (continuous positive airway pressure) dependence Acute cerebrovascular accident (CVA) due to ischemia COVID-19 vaccine series completed Former smoker Hypertension Hyperlipidemia HTN (hypertension) Parkinsons disease GERD (gastroesophageal reflux disease) Constipation Sleep apnea Depression with anxiety Abdominal pain Diverticulitis Home Medications ?Medication ?Instructions ?Recorded ?Last Taken ?Type melatonin 3 mg tablet 9 mg PO QHS SLEEP 05/12/19 03/15/23 History trazodone 100 mg tablet 200 mg PO QHS SLEEP 05/12/19 08/01/23 History famotidine 20 mg tablet 20 mg PO BID GERD 02/17/20 08/02/23 History levodopa 42 mg capsule with 84 mg inhalation 0900,1300,1700 02/16/21 08/02/23 History inhalation device (Inbrija) PARKINSONS propranolol 10 mg tablet 10 mg PO BID HYPERTENSION 02/16/21 08/02/23 History carbidopa ER 36.25 mg-levodopa 145 4 cap PO 4X/DAY Parkinsons 11/30/21 08/02/23 History mg capsule,extended release (Rytary) cholecalciferol (vitamin D3) 50 50 mcg PO DAILY SUPPLEMENT 11/30/21 08/02/23 History mcg (2,000 unit) tablet diltiazem HCl 60 mg tablet 60 mg PO BID HYPERTENSION/AGINA 11/30/21 03/16/23 History empagliflozin 25 mg tablet 12.5 mg PO DAILY DIABETES 11/30/21 08/02/23 History (Jardiance) omega-3 fatty acids 1,000 mg PO DAILY SUPPLEMENT 11/30/21 03/16/23 History prazosin 5 mg capsule 10 mg PO QHS HYPERTENSION 11/30/21 08/02/23 History duloxetine 60 mg capsule,delayed 120 mg PO DAILY DEPRESSION 03/29/22 08/02/23 History release clopidogrel 75 mg tablet 75 mg PO DAILY BLOOD THINNER #21 01/12/23 03/16/23 Rx tabs clonazepam 0.5 mg tablet 0.5 mg PO QHS PANIC ATTACKS 03/16/23 03/14/23 History diclofenac sodium 1 % topical gel 4 g topical BID PRN OSTEOARTHRITIS 03/16/23 Unknown History gabapentin 300 mg capsule 300 mg PO QHS RESTLESS LEG SYNDROME 03/16/23 03/15/23 History sildenafil 100 mg tablet 100 mg PO DAILY PRN sexual activity 03/16/23 Unknown History icosapent ethyl 1 gram capsule 2 g PO BID Cholesterol 07/30/23 08/02/23 History Allergy/AdvReac Type Severity Reaction Status Date / Time No Known Allergies Allergy Verified 10/27/24 14:51 Family History Mother Heart disease Hypertension High cholesterol Cancer skin cancer Father Heart disease High cholesterol Hypertension CVA (cerebral vascular accident) Surgical History S/P arthroscopic surgery of left knee History of colectomy (~02/2020) History of laparoscopic cholecystectomy History of appendectomy Social History household members: spouse number of children: 5 current occupational status: unemployed Smoking Status: Former smoker how long ago did patient quit smoking: Quit ~ 15 years prior, smoked socially only. alcohol intake: never substance use type: does not use ROS ROS ED ROS Narrative Abdominal pain. Nausea. Intermittent constipation and diarrhea. No dysuria. No fever. Constitutional Constitutional ED: Denies chills or fever(s) Cardiovascular Cardiovascular: Denies chest pain Respiratory/Chest Respiratory/Chest: Denies cough or dyspnea Gastrointestinal Gastrointestinal: Reports abdominal pain, constipation, diarrhea and nausea; Denies melena or vomiting Genitourinary Genitourinary ED: Denies dysuria or hematuria Musculoskeletal Musculoskeletal: Denies arthralgias Integumentary Denies abscess Neurologic Neurologic: Denies headache(s) Psychiatric Psychiatric: Denies anxiety Endocrine Endocrinology: Denies polydipsia Hematologic/Lymphatic Hematologic/Lymphatic: Denies easy bleeding Allergic/Immunologic Allergic/Immunologic ED: Denies mouth swelling, tongue swelling or urticaria EXAM Physical Exam Narrative Exam Narrative: 9-year-old male sitting upright in bed vital signs stable afebrile. No acute distress. at bedside. No acute distress. H EENT exam pupils round react to light. Moist mucous members. Neck nontender no lymphadenopathy. No meningismus. Lungs clear to auscultation bilaterally. Heart regular rhythm no murmur. Chest wall ribs nontender. Abdomen soft nondistended normal bowel sounds without peritoneal signs. Mild left lower quadrant tenderness. No hernia or mass. No obstruction. No pulsatile mass. Right upper right lower quadrant unremarkable. Moving all 4 extremities. Nontender no edema. Normal strength. Back nontender. Neurologically is awake alert. Answering questions following commands. Const Vital Signs: 10/27/24 14:51 Temperature 97.4 F L Temperature Source Temporal Pulse Rate 82 Respiratory Rate 20 H Blood Pressure 153/78 H Blood Pressure Mean 103 Pulse Ox 96 Oxygen Delivery Method Room Air Positive well nourished and well developed; Negative for cachectic, contractures or unkempt General Appearance ED: well developed and NAD; Negative for unkempt, cachectic, contractures or pallor Nutritional Appearance: Negative for cachectic HEENT Reports moist mucous membranes normocephalic and atraumatic Eyes PERRL Neck no lymphadenopathy, supple and no JVD Resp normal respiratory effort and clear to auscultation bilaterally Cardio regular rate, regular rhythm, S1 normal heart sound, S2 normal heart sound and no murmurs GI non-distended and no masses; Negative for non-tender Inspection: Negative for abdominal distention Auscultation: normoactive bowel sounds Palpation: soft and tender; Negative for guarding, rigid, hernia, mass, pulsatile mass or rebound tenderness present Back/Spine no CVA tenderness General Back: Negative for CVA tenderness Cervical Spine: Negative for cervical spine tenderness Thoracic Spine / Upper Back: Negative for thoracic spinal tenderness Lumbar Spine / Lower Back: Negative for lumbar spinal tenderness Extremity full ROM General Extremety ED: Negative for edema or tenderness General Extremity: Negative for edema Neuro CN's II-XII intact bilaterally and moves all extremities Sensorium / Orientation: alert, oriented to person, oriented to place and oriented to time Motor Exam: strength 5/5 throughout Psych mental status grossly normal and thought process normal Appearance: Negative for unkempt Skin no wounds General Skin Exam: Negative for jaundice or pallor Lesions: no lesions Rashes: no rashes MDM MDM MDM Narrative Medical decision making narrative: 89-year-old male abdominal pain 2 to 3 weeks history of prior diverticulitis and prior multiple abdominal surgeries. CAT scan and labs being obtained. Differential would include diverticulitis, colitis, UTI, obstruction versus other etiologies. Clinically I do not think it is obstruction. He is having no urinary symptoms. He will be treated with morphine for pain and Zofran for nausea. Repeat exam around 3:30 PM. Patient was complaining more pain and was then given IV Toradol. His exam is really unchanged. We discussed his lab results were awaiting the CAT scan. Repeat exam at 5:10 PM patient is doing well. His CAT scan and labs are unremarkable. There is no signs of diverticulitis or any other acute intra-abdominal pathology. He will be discharged home with outpatient follow-up with primary care physician. Abdominal pain uncertain etiology. History & Record Review Discussion w/independent historian: Patient and Family Additional record(s) reviewed:: Prior inpatient record, Prior outpatient record, Prior ED visit and Prior labs Lab Data Attestation: I reviewed the patient's lab results. Lab results narrative: CBC shows a normal white count of 5.9. H&H 14 and 41. Platelets 146. Electrolytes show an anion gap of 16. H&H of 11 and 1. Glucose 269. Liver enzymes normal. Lipase normal at 29. UA positive for glucose but no signs of infection. No white or red cells no bacteria or nitrates. Labs: Laboratory Results - last 24 hr 10/27/24 15:05 WBC 5.9 RBC 4.93 Hgb 14.5 Hct 41.8 MCV 84.8 MCH 29.4 MCHC 34.7 RDW Std Deviation 37.9 RDW Coeff of Gail 12.6 Plt Count 146 L MPV 9.5 Immature Gran % (Auto) 0.300 Neut % (Auto) 63.9 Lymph % (Auto) 22.0 [place] % (Auto) 9.2 Eos % (Auto) 3.9 Baso % (Auto) 0.7 Absolute Neuts (auto) 3.8 Absolute Lymphs (auto) 1.29 Nucleated RBC % 0 Sodium 135 Potassium 3.7 Chloride 103 Carbon Dioxide 16.5 L Anion Gap 16 H BUN 11 Creatinine 1.03 Estim Creat Clear Calc 96.75 Est GFR (MDRD) Non-Af 84 BUN/Creatinine Ratio 10.9 Glucose 269 H Calcium 8.8 Total Bilirubin 0.42 AST 21 ALT 24 Alkaline Phosphatase 76 Total Protein 6.8 Albumin 4.3 Globulin 2.5 Albumin/Globulin Ratio 1.7 Lipase 29 Urine Color Yellow Urine Clarity Clear Urine pH 6.0 Ur Specific [place] 1.015 Urine Protein Negative Urine Glucose (UA) 1000 H Urine Ketones Negative Urine Occult Blood Negative Urine Nitrite Negative Urine Bilirubin Negative Urine Urobilinogen Normal Ur Leukocyte Esterase Negative Urine RBC 0 SEEN Urine WBC 0-5 SEEN Ur Squamous Epith Cells 0-5 SEEN Urine Bacteria 0 SEEN Urine Mucus 0 SEEN Radiography Diagnostic Testing: Clinical Impression(s) from Imaging Studies Abdomen/Pelvis CT 10/27/24 15:45 IMPRESSION: Currently, there is no acute abnormality. The lung bases are clear Reading [facility] Discharge Plan Triage Chief Complaint: Abd Pain ED Provider: Javy Navarro Dx/Rx/DC Orders Clinical Impression: Abdominal pain Instructions: ED Abdominal Pain Unkn Cause Male... Prescriptions: No Action Inbrija 42 mg capsule, w/inhalation device 84 mg inhalation 0900,1300,1700 propranolol 10 mg tablet 10 mg PO BID duloxetine 60 mg capsule,delayed release(DR/EC) 120 mg PO DAILY melatonin 3 MG tablet 9 mg PO QHS trazodone 100 MG tablet 200 mg PO QHS famotidine 20 MG tablet 20 mg PO BID prazosin 5 mg Capsule 10 mg PO QHS diltiazem HCl 60 mg Tablet 60 mg PO BID omega-3 fatty acids Capsule 1,000 mg PO DAILY cholecalciferol (vitamin D3) 50 mcg (2,000 unit) Tablet 50 mcg PO DAILY Jardiance 25 mg Tablet 12.5 mg PO DAILY Rytary 36.25-145 mg Capsule, Extended Release 4 cap PO 4X/DAY Rx Instructions: takes at 7am,11am,3pm,7pm clopidogrel 75 mg Tablet 75 mg PO DAILY Qty: 21 0RF clonazepam 0.5 mg tablet 0.5 mg PO QHS diclofenac sodium 1 % gel 4 g topical BID PRN (Reason: OSTEOARTHRITIS) gabapentin 300 mg capsule 300 mg PO QHS sildenafil 100 mg tablet 100 mg PO DAILY PRN (Reason: sexual activity) icosapent ethyl 1 gram capsule 2 g PO BID [facility] [Primary [facility] Provider] - 3-5 Days if not improving Activity Restrictions/Additional Instructions: Your labs and CAT scan look good. They do not see any signs of acute diverticulitis at this time. Plenty of fluids. Plenty of fiber to help with any constipation. Tylenol for pain. If not proving follow-up with your primary care provider. Print Language: [place] Disposition Disposition: Home, Self Care
--- OUTSIDE RECORDS SUMMARY | 2024-10-27 15:14 | XMS RPT_ITS | CCD ---
Author Organization [facility] Care Team Providers Care Foundation Relations Manager Name Role Phone Maki, Sohail L Unavailable Craske, W. Don Unavailable MAKI, SOHAIL L Unavailable Unavailable CRASKE, W. DON Unavailable Unavailable MAKI, SOHAIL L Unavailable Unavailable MAKI, SOHAIL L Unavailable Unavailable MAKI, SOHAIL L Unavailable Unavailable CRASKE, W. DON Unavailable Unavailable MAKI, SOHAIL L Unavailable Unavailable AMKI, SOHAIL L Unavailable Unavailable PHYSICIAN, DEFAULT Unavailable Unavailable PHYSICIAN, DEFAULT Unavailable Unavailable UNKNOWN, PROVIDER Unavailable Unavailable CLEMENTINE Unavailable Unavailable ASSALY, RAGHEB Unavailable Unavailable ADRIAN, VENKATAKRISHNAN Unavailable Unavail able [place] Unavailable Unavailable MAHFOOZ, MARLYN Unavailable Unavailable DAVID, [...] Unavailable Unavailable Maki, Sohail L Unavailable Unavailable Catsillo, Gumaro W Unavailable Unavailable Maki, Sohail L Unavailable Unavailable Laci Bains Unavailable Unavailable Laci Bains Unavailable Unavailable Maki, Sohail L Unavailable Unavailable Fernando Beaulieu K. Unavailable Unavailable BeaulieuFernando radford. Unavailable Unavailable Craske, W Xavi Unavailable Unavailable Craske, W Xavi Unavailable Unavailable Maki, Sohail L Primary Care Provider Unavailab le Craske, W. Don Unavailable [place]O NORTON Primary Care Unavailable SERGIO MONTAÑO Attending Unavailable GHAZARIAN, [place]LANDO Referring Unavailable GHAZARIAN, [place]O Primary Care Unavailable GHAZARIAN, [place]O Referring Unavailable GHAZARIAN, ORLANDO Primary Care Unavailable GHAZARIAN, [place]LANDO Referring Unavailable GHAZARIAN, ORLANDO Primary Care Unavailable GHAZARIAN, [place]LANDO Referring Unavailable GHAZARIAN, [place] Primary Care Unavailable GHAZARIAN, [place] Referring Unavailable GHAZARIAN, [place] Primary Care Unavailable VIGESJASON HINOJOSA Referring Unavailable GHAZARIAN, [place] Primary Care Unavailable GHAZARIAN, [place] Referring Unavailable GHAZARIAN, [place] Primary Care Unavailable JOSIAS SINGH Admitting Unavailab le JOSIAS SINGH Attending Unavailab le SOHAIL GAMBINO Primary Care Unavailable Hannah, Thuy Unavailable Unavailable Hannah, Thuy D Unavailable Unavailable David, Mango B Unavailable Unavailable Unknown, Referring Provider Unavailable Unav ailable Hannah, Thuy D Unavailable Unavailable [place], Mango B Unavailable Unavailable [place], Panchito Unavailable Unavailable Sohail Gambino Primary Care Provider Nivia Cazares Unavailable Hannah, Thuy D Unavailable Unavailable Unavailable Dr. Di Walden Primary Care Provider [phone] Dr. Di Walden Attending Provider [phone] Dr. Di Walden Referring Provider [phone] Brittney PICK UP WORKER, PICK UP WORKER-C Chang Attending Provider [phone] Dr. Tarun Farley Attending Provider Dr. Di Walden Primary Care Provider [phone] Dr. Di Walden Referring Provider [phone] Lugo PICK UP WORKER, PICK UP WORKER-C Chang Referring Provider [phone] Lugo PICK UP WORKER, PICK UP WORKER-C Chang Primary Care Provider TAD Sanders Attending Provider Unavailab le Lugo PICK UP WORKER, PICK UP WORKER-C Chang Referring Provider [phone] Dr. Flavio Concepcion Emergency Provider Dr. Jamee Phillips Admit Provider Dr. Jamee Phillips Other Provider Dr. Gamal French Attending Provider Dr. Gamal French Other Provider Dr. Frankie Smith Other Provider Dr. Manjinder Mcnally Other Provider Dr. Rory Garcia Other Provider Unavailab landry Whitaker PICK UP WORKER, PICK UP WORKER-C Ana Lilia Other Provider Dr. Leonora Dunbar Other Provider Dr. Jose Seth Attending Provider Dr. Leonora Dunbar Attending Provider [place] PICK UP WORKER, PICK UP WORKER-C Chang Primary Care Provider Lugo PICK UP WORKER, PICK UP WORKER-C Chang Referring Provider TAD Sanders Attending Provider Unavailab Dr. Flavio Garcia Emergency Provider [phone] Jamee Phillips Admit Provider Dr. Jamee Phillips Referring Provider Dr. Jamee Phillips Other Provider Dr. Gamal French Attending Provider Dr. Gamal French Other Provider Dr. Frankie Smith Other Provider Dr. Manjinder Mcnally Other Provider Dr. Rory Garcia Other Provider Unavailab landry Whitaker PICK UP WORKER, PICK UP WORKER-C Ana Lilia Other Provider Dr. Leonora Dunbar Other Provider Dr. Jose Seth Attending Provider Dr. Leonora Dunbar Attending Provider [place] PICK UP WORKER, PICK UP WORKER-C Chang Attending Provider [place] PICK UP WORKER, PICK UP WORKER-C Chang Primary Care Provider [place] PICK UP WORKER, PICK UP WORKER-C Chang Referring Provider [phone] TAD Sanders Attending Provider Unavailab le Brittney PICK UP WORKER, PICK UP WORKER-C Chang Primary Care Provider Brittney PICK UP WORKER, PICK UP WORKER-C Chang Referring Provider [phone] [place] PICK UP WORKER, PICK UP WORKER-C Lala Higgins Attending Provider [phone] Friend, Dr. Ding Attending Provider [phone] Brady, Dr. Ding Other Provider [phone] ARIANNE STRAUSS, [facility] Primary Care Physician Brittney PICK UP WORKER, PICK UP WORKER-C Chang Referring Provider [phone] Friend, Dr. Ding Attending Provider [phone] [facility], [place] Primary Care Provider Unavailabl [place], [place] Primary Care Provider Unavailabl e Dr. Flavio Concepcion Emergency Provider Dr. Jamee Phillips Admit Provider Dr. Jamee Phillips Other Provider Dr. Frankie Smith Other Provider Dr. Gamal French Attending Provider Dr. Gamal French Other Provider Dr. Marylu Lynn Other Provider Unavailable Dr. Manjinder Mcnally Other Provider [phone] Rory Garcia Other Provider Unavailab landry Whitaker PICK UP WORKER, PICK UP WORKER-C Ana Lilia Other Provider Dr. Jose Maria Bedoya Referring Provider Dr. Jose Maria Bedoya Other Provider Dr. Jose Maria Bedoya Attending Provider Dr. Cristina Duncan Attending Provider [place], [place] Referring Provider Unavailable TAD Hillman Attending Provider Dr. Xavi [place] Emergency Provider [phone] Dr. Jake Franklin Admit Provider Unavailabl e Dr. Jake Franklin Attending Provider Unavail able Dr. Jake Frnaklin Other Provider UnavailDr. Jose Soto Attending Provider Dr. Jose Seth Referring Provider [phone] Temi Katz Attending Provider [phone] Temi Katz Other Provider Dr. Cristina Duncan Other Provider Dr. Jake Cox Attending Provider Unavailable Dr. Jake Cox Other Provider Unavailable Jose Maria Deras Primary Care Provider Jorge Anguiano Unavailable [phone] JOSE MARIA DERAS Primary Care Unavailable VINOD ACUÑA CNP Primary Care Unavail CARMELA Davis DO Attending [facility], [place] Primary Care Provider Unavailarlen Lopez, Dr[facility] Mcc[facility] [place] Primary Care Unavailable [facility] [place] Referring Unavailable Gavin Purvis Attending [facility], [place] Primary Care [facility] Bib Beavers Attending Unavailable Allergies Allergy Classification Reported Allergen(s) Allergy Type Date of Onset Reaction(s) Facility (2 sources) No Known Allergies; Translations: [No Known Allergies] Propensity to adverse reactions (disorder) 8 [facility] Repository Medications Current Medications Medication Drug Class(es) Dates Sig (Normalized) Sig (Original) amoxicillin 875 mg / clavulanate 125 mg oral tablet (4 sources) Penicillin-class Antibacterial Start: 01-13-2022 take 1 tablet by mouth twice daily Amoxicillin-Pot Clavulanate Active 1 TABLET PO TWICE A DAY January 13, 2022 12:00am Start: 04-26-2019 take 1 tablet by tita th twice daily Amoxicillin-Pot Clavulanate 875-125 MG
[2024-10-27 15:18] LABS: Hematocrit 41.8 % (40-54); Hemoglobin 14.5 g/dL (13.0-16.5); Immature Granulocytes Count 0.020 X10^3/uL (0.0-0.0); Mean Corp Hgb Conc 34.7 g/dL (32-36); Mean Corpuscular Volume 84.8 fL (80-94); Mean Platelet Vol. 9.5 fl (6.2-12.0); NRBC Flagged by Analyzer 0 % (0-5); Platelet Count 146 K/mm3 (150-450); RBC Distribution Width CV 12.6 % (11.6-14.6); RBC Distribution Width SD 37.9 fl (35.1-43.9); Red Blood Count 4.93 M/mm3 (4.6-6.2); White Blood Count 5.9 K/mm3 (4.4-11.0)
[2024-10-27 15:31] LABS: Squamous Epithelial Cells - UA 0-5 SEEN /hpf (0-5)
[2024-10-27 15:43] LABS: AST(SGOT) 21 U/L (<=37); Alanine Aminotransfer ALT/SGPT 24 U/L (<=46); Albumin, Serum 4.3 g/dL (3.5-5.0); Alkaline Phosphatase 76 U/L (40-129); Anion Gap 16 (5-15); BUN 11 mg/dL (4-19); BUN/Creat Ratio 10.9 RATIO (10-20); Calcium,Total 8.8 mg/dL (7.6-11.0); Carbon Dioxide 16.5 mmol/L (21.0-32.0); Chloride 103 mmol/L (98-108); Estimated Creatinine Clearance 96.75 ml/min (50-250); Globulin 2.5 g/dL (2.2-4.2); Glucose 269 mg/dL (70-99); Lipase 29 U/L (13-75); Potassium 3.7 mmol/L (3.3-5.1)
--- NOTE | 2024-10-27 15:45 | CT_ITS ---
PROCEDURE: ABDOMEN/PELVIS W IV CONT ONLY 10/27/2024 REASON FOR EXAM: ABD PAIN AND HX OF DIVERTICULITIS TECHNIQUE: Procedure Code: [id number] Modality: CT Procedure: ABDOMEN/PELVIS W IV CONT ONLY Coronal and Sagittal reconstruction series were provided. CONTRAST: Isovue 370 VOLUME: 100 mL One or more dose reduction techniques were used (e.g., Automated exposure control, adjustment of the mA and/or kV according to patient size, use of iterative reconstruction technique. RADIATION DOSE SUMMARY: CTDlvol: 30 mGy DLP: 1162 mGycm COMPARISON: 09/17/2024 FINDINGS: Gallbladder surgically absent. Normal liver. Normal spleen. Normal pancreas. No renal mass or hydronephrosis. Normal adrenal glands. Postsurgical changes in the sigmoid colon. No free-fluid. No free air. No abscess. Currently no diverticulitis or appendicitis. CT/Abdomen/Pelvis W IV Cont ONLY IMPRESSION: Currently, there is no acute abnormality. The lung bases are clear Reading Location: [facility]
[2024-10-27] MEDS: Ketorolac 30 MG/ML Syringe IV (15:59)
[2024-10-27 17:20] VITALS: BP 100/73; PULSE 59; RESP 16; TEMP 37.1; O2SAT 100
== END 2024-10-27 17:21 | disposition home or self-care (01) ==
PROVIDERS: Emergency Provider Emergency Medicine; Visit Provider Emergency Medicine
DX: R10.9 Unspecified abdominal pain (principal); E11.9 Type 2 diabetes mellitus without complications; I10 Essential (primary) hypertension; E78.5 Hyperlipidemia, unspecified; Z87.891 Personal history of nicotine dependence; Z90.49 Acquired absence of other specified parts of digestive tract; G47.30 Sleep apnea, unspecified; Z99.89 Dependence on other enabling machines and devices; K21.9 Gastro-esophageal reflux disease without esophagitis; Z79.899 Other long term (current) drug therapy; Z79.84 Long term (current) use of oral hypoglycemic drugs; F41.8 Other specified anxiety disorders; R11.2 Nausea with vomiting, unspecified
CPT/HCPCS: 74177; 80053; 81001; 83690; 85025; 96374; 96375; 99283; Q9967; A4216; J2405

== ENCOUNTER 2024-12-01 12:22 | Observation (INO) | payer OTHER, SELFPAY ==
[2024-12-01] VITALS (10 sets, daily range): BP systolic 106–155; BP diastolic 74–90; PULSE 61–80; RESP 14–18; TEMP 36.2–37.1; O2SAT 94–100; BMI 31.4; BMI 33.5
--- NOTE | 2024-12-01 12:28 | CT_ITS ---
PROCEDURE: STROKE BRAIN/HEAD WITHOUT CONT; STROKE CTA HEAD AND NECK W/CON 12/01/2024 REASON FOR EXAM: NEURO DEFICIT, ACUTE, STROKE SUSPECTED TECHNIQUE: Procedure Code: CTBR.ST; CTCTA.ST.HN Modality: CT Procedure: STROKE BRAIN/HEAD WITHOUT CONT; STROKE CTA HEAD AND NECK W/CON Initially a noncontrast CT of the brain is performed. Sagittal axial and reformatted images are submitted for interpretation. CTA of the head and neck is performed after intravenous administration of 100 cc of Isovue 370. Sagittal axial and coronal reformatted images are submitted for interpretation. 3D surface rendered imaging through the vasculature is obtained. Sagittal coronal reformatted MIP images are submitted for interpretation One or more dose reduction techniques were used (e.g., Automated exposure control, adjustment of the mA and/or kV according to patient size, use of iterative reconstruction technique. RADIATION DOSE SUMMARY: Head CT: DLP: 796.11 MGycm CTA head and neck: DLP: 828.51 MGycm FINDINGS: CT brain: No acute intracranial hemorrhage midline shift or mass effect is appreciated. The ventricles are normal in size and contour. There is no intra-axial mass. No subarachnoid or subdural hematoma seen. No extra-axial fluid collection or mass appreciated. Orbits are intact. Pituitary fossa is within normal limits. Posterior fossa and brainstem and cerebellar hemispheres appear normal. Mucoperiosteal thickening and opacification of the maxillary sinuses noted bilaterally. There is slight nasal septal deviation to the right of midline. Mastoid air cells are well aerated. Base of the skull and visible osseous structures appear normal. No soft tissue abnormality seen. CTA NECK: The origins of the vessels arising from the aortic arch are patent without high- grade stenosis. Right carotid artery: The right common carotid artery is patent without high- grade stenosis. The right cervical internal carotid artery is patent without hemodynamically significant stenosis. Left carotid artery: The left common carotid artery is patent without high-grade stenosis. The left cervical internal carotid artery is patent without hemodynamically significant stenosis. Cervical vertebral arteries: The cervical vertebral arteries are patent without high-grade stenosis. Assessment for carotid stenosis is performed utilizing NASCET criteria. NASCET carotid stenosis criteria: 0% - none, 1-49% - mild, 50-69% - moderate, 70-89% - severe, 90-99% - critical. % ICA stenosis = (normal distal cervical ICA diameter - narrowest cervical ICA diameter / normal distal cervical ICA diameter) x 100. CTA Head: The petrous, cavernous, and intracranial internal carotid arteries are patent without high-grade stenosis. The proximal anterior cerebral arteries are patent without high-grade stenosis. The proximal middle cerebral arteries are patent without high-grade stenosis. The intradural vertebral arteries are patent without high-grade stenosis. The basilar artery is patent without high-grade stenosis. The proximal posterior cerebral arteries are patent without high-grade stenosis. No dominant intracranial aneurysm or high flow arteriovenous malformation is identified. Ancillary findings: None. Mild degenerative disc disease at C5-6 and C6-7. CT/STROKE Brain/Head without Cont IMPRESSION: No acute intracranial abnormality. No evidence of large territorial ischemic i nfarct. Normal CTA of the head and neck and [id number]. Stroke Alert: No acute intracranial abnormality. No large vessel occlusion. No large territorial infarct. The critical findings in the findings and impression above were relayed directl y by me by telephone to Ermias Geramn on 12/01/2024 at 12:58 pm with readback verification. Reading Location: [id number]
--- NOTE | 2024-12-01 12:28 | EKG12_ITS ---
Test Reason : Blood Pressure : */* mmHG Vent. Rate : 80 BPM Atrial Rate : 80 BPM P-R Int : 182 ms QRS Dur : 84 ms QT Int : 374 ms P-R-T Axes : 36 -19 -2 degrees QTcB Int : 431 ms Normal sinus rhythm Normal ECG Confirmed by SELMA REDD, STEVE ([id number]), managing editor BRET ARCOS ([id number]) on 12/02/2024 8:38:13 AM Referred By: Confirmed By: STEVE HAHN MD
--- NOTE | 2024-12-01 12:29 | EDS_ITS ---
HPI History of Present Illness Chief Complaint: Stroke Alert [facility] Medical History BMI 34.0-34.9,adult Left ventricular hypertrophy Chronic prescription benzodiazepine use Type 2 diabetes mellitus Testosterone deficiency in male Diverticulosis Sprain and strain of left hand COVID-19 Alternating constipation and diarrhea Wrist pain De Quervain's tenosynovitis, right Cough Cellulitis of right wrist Acute stroke due to ischemia Lupus Wears glasses History of hiatal hernia CPAP (continuous positive airway pressure) dependence Acute cerebrovascular accident (CVA) due to ischemia COVID-19 vaccine series completed Former smoker Hypertension Hyperlipidemia HTN (hypertension) Parkinsons disease GERD (gastroesophageal reflux disease) Constipation Sleep apnea Depression with anxiety Abdominal pain Diverticulitis Home Medications ?Medication ?Instructions ?Recorded ?Last Taken ?Type melatonin 3 mg tablet 9 mg PO QHS SLEEP 05/12/19 0 03/15/23 History trazodone 100 mg tablet 300 mg PO QHS SLEEP 05/12/19 08/01/23 History famotidine 20 mg tablet 20 mg PO BID GERD 02/17/20 0 08/02/23 History propranolol 10 mg tablet 10 mg PO BID HYPERTENSION AN D 02/16/21 08/02/23 History ANXIETY carbidopa ER 36.25 mg-levodopa 145 4 cap PO 4X/DAY Par kinsons 11/30/21 08/02/23 History mg capsule,extended release (Rytary) cholecalciferol (vitamin D3) 50 50 mcg PO DAILY SUPPLE MENT 11/30/21 08/02/23 History mcg (2,000 unit) tablet diltiazem HCl 60 mg tablet 60 mg PO BID HYPERTENSION/A DARRYL 11/30/21 03/16/23 History empagliflozin 25 mg tablet 25 mg PO DAILY DIABETES 06/1808/02/23 History (Jardiance) prazosin 5 mg capsule 10 mg PO QHS HYPERTENSION 08/02/23 History duloxetine 60 mg capsule,delayed 120 mg PO DAILY DEPRE SSION 03/29/22 08/02/23 History release diclofenac sodium 1 % topical gel 4 g topical BID PRN OSTEOARTHRITIS 03/16/23 Unknown History gabapentin 300 mg capsule 300 mg PO QHS RESTLESS LEG S YNDROME 03/16/23 03/15/23 History sildenafil 100 mg tablet 100 mg PO DAILY PRN sexual a ctivity 03/16/23 Unknown History pantoprazole 40 mg tablet,delayed 40 mg PO QDAY GERD 0 11/25/24 Unknown History release rosuvastatin 20 mg tablet 20 mg PO QDAY HIGH CHOLESTER OL 11/25/24 Unknown History testosterone cypionate 200 mg/mL 200 mg IM Q2W LOW PARAM TOSTERONE 11/25/24 Unknown History intramuscular oil (Depo-Testosterone) clonazepam 1 mg tablet (Klonopin) 1 mg PO QHS PANIC DI SORDER 12/01/24 Unknown History clopidogrel 75 mg tablet 75 mg PO DAILY STROKE PREVEN TION 12/01/24 Unknown History hydrochlorothiazide 12.5 mg capsule 12.5 mg PO DAILY H YPERTENSION 12/01/24 Unknown History quetiapine 25 mg tablet 75 mg PO QHS NIGHT TERRORS 1 Unknown History Allergy/AdvReac Type Severity Reaction Status Date / Time No Known Allergies Allergy Verified 12/01/24 12:27 Family History (Updated 11/25/24 @ 08:39 by Aisha Mckeon) Mother Heart disease Hypertension High cholesterol Cancer skin cancer Thyroid disorder Diabetes Father Heart disease High cholesterol Hypertension CVA (cerebral vascular accident) Surgical History S/P arthroscopic surgery of left knee History of colectomy (~02/2020) History of laparoscopic cholecystectomy History of appendectomy Social History household members: spouse number of children: 5 current occupational status: unemployed Smoking Status: Former smoker how long ago did patient quit smoking: Quit ~ 15 years prior, smoked socially only. alcohol intake: never substance use type: does not use EXAM Physical Exam Const Vital Signs: 12/01/24 12:26 12/01/24 12:26 12/01/24 12:28 Temperature 98.7 F Temperature Source Oral Pulse Rate 80 80 Respiratory Rate 16 14 Respiratory Effort Respiratory Pattern Blood Pressure 155/90 H 155/90 H Blood Pressure Mean 111 111 Pulse Ox 98 98 Oxygen Delivery Method Room Air Room Air Room Air 12/01/24 12:53 12/01/24 13:16 12/01/24 13:33 Temperature Temperature Source Pulse Rate 75 75 71 Respiratory Rate 16 14 18 Respiratory Effort Respiratory Pattern Blood Pressure 153/83 H 106/74 129/76 H Blood Pressure Mean 106 84 93 Pulse Ox 97 98 97 Oxygen Delivery Method Room Air Room Air Room Air 12/01/24 13:39 12/01/24 14:00 Temperature Temperature Source Pulse Rate 70 Respiratory Rate 14 Respiratory Effort Normal Respiratory Pattern Normal Blood Pressure 146/84 H Blood Pressure Mean 104 Pulse Ox 98 Oxygen Delivery Method Room Air [facility] [place] Narrative Medical decision making narrative: HISTORY OF PRESENT ILLNESS: Chief complaint: Speech difficulty, swallowing difficulty, left-sided weakness 59-year-old male history of CVA, Parkinson's disease, hypertension, type 2 diabetes, former smoker presents with difficulty swallowing, left-sided facial sensory changes, left upper and lower extremity weakness. Last known well was at 10:30 PM on 11/2024. No falls or trauma noted. No chest pain or headache noted REVIEW OF SYSTEMS: Pertinent positives: Left-sided weakness, difficulty swallowing Pertinent negatives: Chest pain, headache PHYSICAL EXAM: Nursing triage notes reviewed, Vital signs reviewed Constitutional: please see [facility] HENT: MMM Eyes: Pupils equal round and reactive to light, Extraocular muscles intact Neck: No stridor, no JVD, full neck ROM Lungs: Clear to auscultation, No wheezing or rales. No increased work of breathing, no conversational dyspnea, no accessory muscle use, no nasal flaring. No respiratory distress noted Heart: Regular rate and rhythm, No murmurs, No rubs and No gallops, 2+ distal pulses (radial, femoral, posterior tibial) in all extremities Abdomen: Soft, there is no tenderness, rigidity, rebound or guarding, no obvious peritoneal signs, no palpable pulsatile abdominal masses, no auscultated abdominal bruit : No CVAT Extremities: No edema Neuro: Patient was alert, he was oriented, he had no obvious aphasia or dysarthria, no obvious facial drooping. His visual robles were intact and extraocular muscles were intact. He had subjective sensory changes in the left side of his face. He also had weakness and drift in left upper and lower extremity. He had no loss of coordination or ataxia. His initial NIH was 3. Skin: No rash or lesions noted MEDICAL DECISION MAKING: Chief Complaint: please see [facility] External records reviewed: Reviewed prior imaging studies: Reviewed MRI from 2023 which showed no intracranial mass, hemorrhage or acute surgical infarct Factors affecting care: As per HPI Social determinants of health: Former smoker History obtained from others: The patient's Consults: Stroke radiology, stroke neurology, internal medicine [facility] Narrative: Patient was initially hemodynamically stable, afebrile and nontoxic-appearing. Initial NIH of 3 with left-sided subjective sensory changes and slight drift in left upper and lower extremity. Given the patient's positive NIH stroke scale and last known well within 24 hours a stroke alert was called. I considered the following differential diagnosis: Acute CVA, TIA, focal seizu re, ICH, Fabio's paralysis I obtained a broad lab and imaging workup to further determine if the patient was suffering from a life-threatening etiology. ALL IMAGES (IF OBTAINED) HAVE BEEN PERSONALLY REVIEWED AND INTERPRETED BY MYSELF. EKG with normal sinus rhythm rate of 80, left ax deviation, normal intervals, no STEMI CT scan of the brain shows no acute hemorrhage or shift CTA head and neck shows no evidence of large vessel occlusion Given last known well greater than 4-1/2 hours prior to arrival, low NIH and no sign of large vessel occlusion patient not a candidate for TNK or thrombectomy. High-sensitivity troponin is negative, no evidence of myocardial ischemia No obvious coagulopathy CBC with no leukocytosis, anemia or thrombocytopenia BMP without significant electrolyte maladies, there is a metabolic acidosis as well as elevated anion gap. There is unclear clinical significance as the patient presents with strokelike symptoms. He does not have any nausea or vomiting is not particular hyperglycemic with a blood sugar of 178. I do not suspect this related to DKA. He has no infectious signs or symptoms to suggest lactic acidosis. Will discuss this with hospitalist and continue workup as an inpatient. Discussed with stroke neurologist (Dr. Winston) Who noted no obvious ICH, mass. No obvious large vessel occlusion. Notes patient is Discussed with stroke neurologist (Dr. Hanna) who recommended no TNK or thrombectomy. He further recommended admission here was given a hospital for MRI, risk factor modification. He recommended patient continue Plavix that is already prescribed Discussed case with internal medicine physician . She agreed admit the patient to PCU observation. The patient and/or family, caregivers express understanding. The patient and/or family, caregivers agrees with the plan. Shared decision making: I will have a discussion with the patient and or visitors regarding risk/benefits of further testing or admission. They will be made aware of of the risk/benefits inherent in this decision they will be given the opportunity to voice understanding. Total critical care time today provided was at least 35 minutes. This excludes separately billable procedures. Critical care time (if documented) is secondary to the patient having high probability of clinically significant/life threatening deterioration in the patient's condition which required my urgent intervention. Impression: 1. Acute CVA 2. History of hypertension 3. History of hyperlipidemia Dispo: Admit to PCU This note was generated with [employer] dictation software. It may contain incorrect words, spelling, and punctuation that were not noted in review of the chart prior to signing. Lab Data Labs: Laboratory Results - last 24 hr 12/01/24 12/01/24 12/01/24 12:28 12:30 14:00 WBC 6.3 RBC 5.32 Hgb 15.7 Hct 43.6 MCV 82.0 MCH 29.5 MCHC 36.0 RDW Std Deviation 38.3 RDW Coeff of Gail 13.2 Plt Count 158 MPV 9.4 Immature Gran % (Auto) 0.200 Neut % (Auto) 62.1 Lymph % (Auto) 25.0 [place] % (Auto) 8.4 Eos % (Auto) 3.7 Baso % (Auto) 0.6 Absolute Neuts (auto) 3.9 Absolute Lymphs (auto) 1.57 Nucleated RBC % 0 PT 12.1 INR 0.9 APTT 26.1 Sodium 135 Potassium 4.3 Chloride 102 Carbon Dioxide 13.0 L Anion Gap 20 H BUN 14 Creatinine 1.05 Estim Creat Clear Calc 92.15 Est GFR (MDRD) Non-Af 82 BUN/Creatinine Ratio 13.4 Glucose 178 H Lactic Acid < 1.0 Calcium 9.2 Troponin T High Sens 9 D b-Hydroxybutyric mmol/L 0.1 Urine Color Urine Clarity Urine pH Ur Specific [place] Urine Protein Urine Glucose (UA) Urine Ketones Urine Occult Blood Urine Nitrite Urine Bilirubin Urine Urobilinogen Ur Leukocyte Esterase Urine RBC Urine WBC Ur Squamous Epith Cells Urine Bacteria Urine Mucus 12/01/24 14:09 WBC RBC Hgb Hct MCV MCH MCHC RDW Std Deviation RDW Coeff of Gail Plt Count MPV Immature Gran % (Auto) Neut % (Auto) Lymph % (Auto) [place] % (Auto) Eos % (Auto) Baso % (Auto) Absolute Neuts (auto) Absolute Lymphs (auto) Nucleated RBC % PT INR APTT Sodium Potassium Chloride Carbon Dioxide Anion Gap BUN Creatinine Estim Creat Clear Calc Est GFR (MDRD) Non-Af BUN/Creatinine Ratio Glucose Lactic Acid Calcium Troponin T High Sens b-Hydroxybutyric mmol/L Urine Color Yellow Urine Clarity Clear Urine pH 5.0 Ur Specific [place] 1.010 Urine Protein 15 H Urine Glucose (UA) 1000 H Urine Ketones 5 H Urine Occult Blood Negative Urine Nitrite Negative Urine Bilirubin Negative Urine Urobilinogen Normal Ur Leukocyte Esterase Negative Urine RBC 0 SEEN Urine WBC 0 SEEN Ur Squamous Epith Cells 0 SEEN Urine Bacteria 0 SEEN Urine Mucus 0 SEEN Radiography Diagnostic Testing: Clinical Impression(s) from Imaging Studies Brain CT 12/01/24 12:28 IMPRESSION: No acute intracranial abnormality. No evidence of large territorial ischemic infarct. Normal CTA of the head and neck and [id number]. Stroke Alert: No acute intracranial abnormality. No large vessel occlusion. No large territorial infarct. The critical findings in the findings and impression above were relayed directly by me by telephone to Ermias German on 12/01/2024 at 12:58 pm with readback verification. Reading Location: [facility] Head/Neck CTA 12/01/24 12:28 IMPRESSION: No acute intracranial abnormality. No evidence of large territorial ischemic infarct. Normal CTA of the head and neck and [id number]. Stroke Alert: No acute intracranial abnormality. No large vessel occlusion. No large territorial infarct. The critical findings in the findings and impression above were relayed directly by me by telephone to Ermias German on 12/01/2024 at 12:58 pm with readback verification. Reading Location: [facility] Discharge Plan Disposition Disposition: Acute Care Hospital [facility] Discharge Date/Time: 12/01/24 14:28
--- NOTE | 2024-12-01 12:30 | CM.ED ---
Social Work Date of referral: 12/01/24 Reason for referral: Stroke Alert Inventory Worker responded to stroke alert. Patient's was present and social worker masters offered support. Patient's stated this is not the first time she's been through this and stated she was ok and denied any needs for additional support at this time. Patient taken away for medical treatment but was clam. Lupe Hall, BILLING CLINICIAN, MICROSCOPIST
--- OUTSIDE RECORDS SUMMARY | 2024-12-01 12:35 | XMS RPT_ITS | CCD ---
Author Organization [facility] Care Team Providers Care Mail Inserter Name Role Phone Maki, Lisa L Unavailable Craske, W. Don Unavailable MAKI, LISA L Unavailable Unavailable CRASKE, W. DON Unavailable Unavailable MAKI, LISA L Unavailable Unavailable MAKI, LISA L Unavailable Unavailable MAKI, LISA L Unavailable Unavailable CRASKE, W. DON Unavailable Unavailable MAKI, LISA L Unavailable Unavailable MAKI, LISA L Unavailable Unavailable PHYSICIAN, DEFAULT Unavailable Unavailable PHYSICIAN, DEFAULT Unavailable Unavailable UNKNOWN, PROVIDER Unavailable Unavailable CLEMENTINE Unavailable Unavailable ASSALY, RAGHEB Unavailable Unavailable ADRIAN, VENKATAKRISHNAN Unavailable Unavail able NE Unavailable Unavailable MAHFOOZ, SKY Unavailable Unavailable TEDDY, MANGO B Unavailable Unavailable TEDDY, MANGO B Unavailable Unavailable TEDDY, MANGO B Unavailable Unavailable TEDDY, MANGO B Unavailable Unavailable TEDDY, MANGO B Unavailable Unavailable TEDDY, MANGO B Unavailable Unavailable TEDDY, MANGO B Unavailable Unavailable TEDDY, MANGO B Unavailable Unavailable TEDDY, MANGO B Unavailable Unavailable TEDDY, MANGO B Unavailable Unavailable Mariscal, Mariam W Unavailable Unavailable Mariscal, Mariam W Unavailable Unavailable Maki, Lisa L Unavailable Unavailable Mariscal, Mariam W Unavailable Unavailable Maki, Lisa L Unavailable Unavailable Laci Bains Unavailable Unavailable Laci Bains Unavailable Unavailable Maki, Lisa L Unavailable Unavailable Fernando Beaulieu K. Unavailable Unavailable BeaulieuFernando radford. Unavailable Unavailable Craske, W Xavi Unavailable Unavailable Craske, W Xavi Unavailable Unavailable Maki, Lisa L Primary Care Provider Unavailab le Craske, W. Don Unavailable STEVE BARRIOS Primary Care Unavailable GREG MONTAÑO Attending Unavailable GHAZARIAN, STEVE Referring Unavailable GHAZARIAN, STEVE Primary Care Unavailable GHAZARIAN, STEVE Referring Unavailable GHAZARIAN, STEVE Primary Care Unavailable GHAZARIAN, STEVE Referring Unavailable GHAZARIAN, STEVE Primary Care Unavailable GHAZARIAN, STEVE Referring Unavailable GHAZARIAN, STEVE Primary Care Unavailable GHAZARIAN, STEVE Referring Unavailable GHAZARIAN, STEVE Primary Care Unavailable VIGESKENDELL HINOJOSA Referring Unavailable GHAZARIAN, STEVE Primary Care Unavailable GHAZARIAN, STEVE Referring Unavailable GHAZARIAN, STEVE Primary Care Unavailable JOSIAS SINGH Admitting Unavailab le JOSIAS SINGH Attending Unavailab le LISA GAMBINO Primary Care Unavailable Hannah, Thuy Unavailable Unavailable Hannah, Thuy D Unavailable Unavailable Teddy, Mango B Unavailable Unavailable Unknown, Referring Provider Unavailable Unav ailable Hannah, Thuy D Unavailable Unavailable Teddy, Mango B Unavailable Unavailable Tavallaee, Panchito Unavailable Unavailable Lisa Gambino Primary Care Provider Nivia Cazares Unavailable Hannah, Thuy D Unavailable Unavailable Unavailable Dr. Di Walden Primary Care Provider [phone] Dr. Di Walden Attending Provider [phone] Dr. Di Walden Referring Provider [phone] Brittney SUMO WRESTLER, SUMO WRESTLER-C Kev Attending Provider [phone] Dr. Tarun Farley Attending Provider Dr. Di Walden Primary Care Provider [phone] Dr. Di Walden Referring Provider [phone] Lugo SUMO WRESTLER, SUMO WRESTLER-C Kev Referring Provider [phone] Lugo SUMO WRESTLER, SUMO WRESTLER-C Kev Primary Care Provider TAD Sanders Attending Provider Unavailab le Lugo SUMO WRESTLER, SUMO WRESTLER-C Kev Referring Provider [phone] Dr. Flavio Concepcion Emergency Provider Dr. Jamee Phillips Admit Provider Dr. Jamee Phillips Other Provider Dr. Gamal French Attending Provider Dr. Gamal French Other Provider Dr. Frankie Smith Other Provider Dr. Manjinder Mcnally Other Provider Dr. Rory Garcia Other Provider Unavailab landry Whitaker SUMO WRESTLER, SUMO WRESTLER-C Ana Lilia Other Provider Dr. Leonora Dunbar Other Provider Dr. Jose Seth Attending Provider Dr. Leonora Dunbar Attending Provider Lugo SUMO WRESTLER, SUMO WRESTLER-C Kev Primary Care Provider Lugo SUMO WRESTLER, SUMO WRESTLER-C Kev Referring Provider TAD Sanders Attending Provider Unavailab Dr. Flavio Garcia Emergency Provider Dr. Jamee Phillips Admit Provider Dr. Jamee Phillips Referring Provider Dr. Jamee Phillips Other Provider Dr. Gamal French Attending Provider Dr. Gamal French Other Provider Dr. Frankie Smith Other Provider Dr. Manjinder Mcnally Other Provider Dr. Rory Garcia Other Provider Unavailab landry Whitaker SUMO WRESTLER, SUMO WRESTLER-C Ana Lilia Other Provider Dr. Leonora Dunbar Other Provider Dr. Jose Seth Attending Provider Dr. Leonora Dunbar Attending Provider Lugo SUMO WRESTLER, SUMO WRESTLER-C Kev Attending Provider Lugo SUMO WRESTLER, SUMO WRESTLER-C Kev Primary Care Provider Lugo SUMO WRESTLER, SUMO WRESTLER-C Kev Referring Provider [phone] TAD Sanders Attending Provider Unavailab le Brittney SUMO WRESTLER, SUMO WRESTLER-C Kev Primary Care Provider Brittney SUMO WRESTLER, SUMO WRESTLER-C Kev Referring Provider [phone] [place] SUMO WRESTLER, SUMO WRESTLER-C Lala Higgins Attending Provider [phone] Friend, Dr. Ding Attending Provider [phone] Brady, Dr. Ding Other Provider [phone] ARIANNE STRAUSS, [facility] Primary Care Physician Brittney SUMO WRESTLER, SUMO WRESTLER-C Kev Referring Provider [phone] Friend, Dr. Ding Attending Provider [phone] [facility], [place] Primary Care Provider Unavailabl [place], [place] Primary Care Provider Unavailabl e Dr. Flavio Concepcion Emergency Provider Dr. Jamee Phillips Admit Provider Dr. Jamee Phillips Other Provider Dr. Frankie Smith Other Provider Dr. Gamal French Attending Provider Dr. Gamal French Other Provider Dr. Marylu Lynn Other Provider Unavailable Dr. Manjinder Mcnally Other Provider [phone] Rory Garcia Other Provider Unavailab landry Whitaker SUMO WRESTLER, SUMO WRESTLER-C Ana Lilia Other Provider Dr. Jose Maria Bedoya Referring Provider Dr. Jose Maria Bedoya Other Provider Dr. Jose Maria Bedoya Attending Provider [phone] Dr. Cristina Duncan Attending Provider [place], [place] Referring Provider Unavailable TAD Hillman Attending Provider Dr. Xavi [place] Emergency Provider Dr. Jake Franklin Admit Provider Unavailabl e Dr. Jake Franklin Attending Provider Unavail able Dr. Jake Franklin Other Provider Unavailabl e Dr. Jose Seth Attending Provider Dr. Jose Seth Referring Provider Dr. Temi Katz Attending Provider Dr. Temi Katz Other Provider Dr. Cristina Duncan Other Provider Dr. Jake Cox Attending Provider Unavailable Dr. Jake Cox Other Provider Unavailable Jose Maria Deras Primary Care Provider Jorge Anguiano Sarah Unavailable JOSE MARIA DERAS Primary Care Unavailable VINOD ACUÑA CNP Primary Care Unavailab CARMELA Davis DO Attending [facility], [place] Primary Care Provider Unavailabl e Landry HAN, Dr. Mccartney Emergency Provider Dr. Bib Beavers DO Attending Provider [phone] Ramon REDD, Dr. Palafox Emergency Provider [phone] [facility], [place] Primary Care Physician Unavailab Dr. Bib Maloney Attending Physician Dr. Bib Beavers DO Emergency Department Physician Dr. Javy Navarro MD Attending Physician Dr. Javy Navarro MD Emergency Department Physici an [facility], [place] Primary Care Physician Unavailab [facility], [place] Referring Provider Unavailable Scott REDD, Dr. Thompson Attending Physician Gavin Purvis Attending [facility], [place] Referring Unavailable [place] Primary Care Unavailable Javy Navarro Attending [facility], [place] Primary Care Unavailable Bib Beavers Attending [facility], [place] Primary Care Unavailable [facility], [place] Primary Care Unavailable Jay Chavez Attending [facility], [place] Primary Care Unavailable Jay Chavez Attending [facility], [place] Referring Unavailable Allergies Allergy Classification Reported Allergen(s) Allergy Type Date of Onset Reaction(s) Facility (2 sources) No Known Allergies; Translations: [No Known Allergies] Propensity to adverse reactions (disorder) 8 [facility] Medications Current Medications Medication Drug Class(es) Dates Sig (Normalized) Sig (Original) amoxicillin 875 mg / clavulanate 125 mg oral tablet (4 sources) Penicillin-class Antibacterial Start: 01-13-2022 take 1 tablet by mouth twice daily Amoxicillin-Pot Clavulanate Active 1 TABLET PO TWICE A DAY January 13, 2022 12:00am Start: 04-26-2019 take 1 tablet by tita th twice daily Amoxicillin-Pot Clavulanate 875-125 MG Oral Tablet 1 tab bid for 10 days Quantity: 20 Refills: 0 Hannah EPIC INTERFACE ANALYST-SNIPPER, Thuy Start : 26-Apr-2019 Active atorvastatin 20 mg oral tablet (20 sources) HMG-CoA Reductase Inhibitor Start: 01-07-2020 take 40 mg by mouth once daily Atorvastatin Active 40 MG PO DAILY January 07, 2020 1:40pm Start: 05-12-2019 End: 01-07-2020 take 1 tablet by mouth once daily Atorvastatin 20 MG tablet Discontinued 20 mg PO DAILY May 12, 2019 12:00am January 07, 2020 1:43pm take 1 tablet by tita th once daily Atorvastatin Calcium 40 MG Oral Tablet Take 1 tablet daily Quantity: 0 Refills: 0 Ordered: 26-Apr-2019 DO Active atorvastatin (LI PITOR) 80 MG tablet Indications: hypercholesterolemia Take 20 mg by mouth daily Reasons: high cholesterol. 0 Active take 1 tablet by tita th once daily atorvastatin (LIPITOR) 80 MG tablet Take 80 mg by mouth daily . Active benzonatate 200 mg oral capsule (2 sources) Non-narcotic Antitussive Start: 03-04-2021 take 200 mg by mouth three times daily Benzonatate Active 200 MG PO THREE TIMES A DAY March 04, 2021 11:57am 8 hr carbidopa 36.25 mg / levodopa 145 mg extended release oral capsule (20 sources) Aromatic Amino Acid Decarboxylation Inhibitor Start: 11-30-2021 Start: 02-16-2021 take 1 tablet by tita th three times daily Carbidopa-Levodopa Active 1 TABLET PO THREE TIMES A DAY February 16, 2021 11:27am Start: 02-17-2020 End: 01-12-2023 Carbidopa-Levodopa 50-200 mg tablet extended release Discontinued 1 {tbl} PO AT BEDTIME February 16, 2021 11:27am January 12, 2023 3:29pm [place] Start: 02-17-2020 End: 01-12-2023 take 1 tablet by mouth at bedtime Carbidopa-Levodopa Discontinued 1 TABLET PO AT BEDTIME February 16, 2021 10:27am January 12, 2023 2:29pm Start: 05-12-2019 End: 01-07-2020 Carbidopa-Levodopa 1 TABLET tablet Discontinued 1 {tbl} PO THREE TIMES DAILY BEFORE MEALS May 12, 2019 12:00am January 07, 2020 1:39pm 23.75-95 mg Start: 05-12-2019 End: 01-07-2020 Carbidopa-Levodopa 1 TABLET tablet extended release Discontinued 1 {tbl} PO DAILY May 12, 2019 12:00am January 07, 2020 1:41pm Start: 05-12-2019 End: 01-07-2020 take 1 tablet by mouth three times daily before mealtime Carbidopa-Levodopa Discontinued 1 TABLET PO THREE TIMES DAILY BEFORE MEALS May 11, 2019 11:00pm January 07, 2020 12:39pm 23.75-95 mg Start: 05-12-2019 End: 01-07-2020 take 1 tablet by mouth once daily Carbidopa-Levodopa Discontinued 1 TABLET PO DAILY May 11, 2019 11:00pm January 07, 2020 12:41pm take 4 capsules by [facility] three times daily Rytary 23.75-95 MG Oral Capsule Extended Release TAKE 4 CAPSULE 3 times daily Quantity: 0 Refills: 0 Ordered: 26-Apr-2019 DO Active take 1 tablet by tita four times daily carbidopa-levodopa (SINEMET) 25-100 mg per tablet Take 1 tablet by mouth 4 (four) times a day. 0 Active cholecalciferol 0.05 mg oral tablet (20 sources) Vitamin D Start: 11-30-2021 take 1 tablet by tita once daily Start: 05-12-2019 take [facility]IU[facility] Cholecalciferol (Vitamin D3) Active 2000 UNIT PO DAILY May 12, 2019 10:53pm take 1 tablet by tita once daily Vitamin D3 50 MCG (1999 UT) Oral Tablet Take 1 tablet daily Quantity: 0 Refills: 0 Ordered: 25-Apr-2019 DO Active take 2 tablets by [facility] once daily cholecalciferol, vitamin D3, 1,000 unit tablet Take 2,000 Units by mouth daily. 0 Active clonazePAM 0.5 mg oral tablet (20 sources) Benzodiazepine Start: 02-16-2021 End: 07-30-2023 take 1 tablet by mouth at bedtime Start: 02-16-2021 take 0.5 mg by mouth at bedtim e Clonazepam Active 0.5 MG PO AT BEDTIME February 16, 2021 12:00am take 1 tablet by tita th three times daily as needed for anxiety clonazePAM (KLONOPIN) 0.5 MG tablet Take 0.5 mg by mouth 3 (three) times a day as needed for anxiety. 0 Active diclofenac sodium 0.01 mg/mg topical gel (5 sources) Nonsteroidal Anti-inflammatory Drug Start: 03-16-2023 apply 4 g topically twice daily as needed Start: 03-16-2023 apply 4 g topically twice randy y Diclofenac Sodium Active 4 GM TOPICAL TWICE A DAY March 16, 2023 12:00am dilTIAZem hydrochloride 60 mg oral tablet (20 sources) Calcium Channel Kezia Start: 11-30-2021 take 1 tablet by mouth twice daily Start: 02-16-2021 take 60 mg by mouth twice randy y Diltiazem Hcl Active 60 MG PO TWICE A DAY February 16, 2021 11:27am Start: 01-07-2020 End: 02-16-2021 take 2 tablets by mouth once daily Diltiazem Hcl 30 mg tablet Discontinued 60 mg PO DAILY January 07, 2020 1:41pm February 16, 2021 11:31am BP Start: 01-07-2020 End: 02-16-2021 take 60 mg by mouth once daily Diltiazem Hcl Discontin ued 60 MG PO DAILY January 07, 2020 12:41pm February 16, 2021 10:31am Start: 05-12-2019 End: 01-07-2020 take 2 tablets by mouth twice daily Diltiazem Hcl 30 MG tablet Discontinued 60 mg PO TWICE A DAY May 12, 2019 12:00am January 07, 2020 1:43pm Start: 05-12-2019 End: 01-07-2020 take 60 mg by mouth twice daily Diltiazem Hcl Disconti nued 60 MG PO TWICE A DAY May 11, 2019 11:00pm January 07, 2020 12:43pm take 1 tablet by tita th once daily dilTIAZem HCl - 60 MG Oral Tablet Take 1 tablet daily Quantity: 0 Refills: 0 Ordered: 26-Apr-2019 DO Active take 1 tablet by tita th twice daily diltiazem (CARDIZEM) 60 MG tablet Take 60 mg by mouth 2 (two) times a day . 0 Active doxycycline hyclate 100 mg oral tablet (1 source) Tetracycline-class Drug Start: 06-01-2024 End: 06-08-2024 take 1 tablet by mouth twice daily doxycycline (VIBRA-TABS) 100 mg tablet Indications: Rhinosinusitis Take 1 tablet by mouth two times a day for 7 days. 14 tablet 06/01/2024 06/08/2024 Active DULoxetine 60 mg delayed release oral capsule (10 sources) Serotonin and Norepinephrine Reuptake Inhibitor Start: 03-29-2022 take 2 capsules by mouth once daily Start: 03-29-2022 take 120 mg by mouth once randy y Duloxetine Active 120 MG PO DAILY March 29, 2022 12:00am Start: 03-29-2022 take 60 mg by mouth once daily Duloxetine Active 60 MG PO DAILY March 29, 2022 12:00am empagliflozin 25 mg oral tablet (19 sources) Sodium-Glucose Cotransporter 2 Inhibitor Start: 11-30-2021 take 1 tablet by mouth once daily Start: 08-04-2021 take 1 tablet by tita th once daily Empagliflozin (Jardiance) 10 mg Tablet Active 0 MG PO DAILY August 04, 2021 5:05pm entacapone 200 mg oral tablet (3 sources) Qicevmci-E-Layzfpwgtfqlwjsef Inhibitor take 1 tablet by mouth four times daily entacapone (COMTAN) 200 mg tablet Take 200 mg by mouth 4 (four) times a day. 0 Active famotidine 20 mg oral tablet (20 sources) Histamine-2 Receptor Antagonist Start: 2019 take 1 tablet by mouth twice daily Start: 05-12-2019 End: 01-07-2020 take 1 tablet by mouth twice daily Famotidine 20 MG tablet Discontinued 20 mg PO TWICE A DAY May 12, 2019 12:00am January 07, 2020 1:41pm fenofibrate 54 mg oral tablet (4 sources) Peroxisome Proliferator Receptor alpha Agonist Start: 07-13-2021 take 54 mg by mouth once daily Fenofibrate Active 54 MG PO DAILY July 13, 2021 1:33pm gabapentin 300 mg oral capsule (5 sources) Anti-epileptic Agent Start: 03-16-2023 take 1 capsule by mouth at bedtime guaiFENesin 400 mg oral tablet (2 sources) Start: 03-04-2021 take 400 mg by mouth three times daily Guaifenesin Active 400 MG PO THREE TIMES A DAY March 04, 2021 11:57am hyoscyamine sulfate 0.125 mg sublingual tablet (2 [...] mg by mouth daily . 0 Active take 1 tablet by mouth once randy y Isosorbide Mononitrate ER 30 MG Oral Tablet Extended Release 24 Hour Take 1 tablet daily Refills: 0 Active melatonin 3 mg oral tablet (20 sources) Start: 05-12-2019 take 3 tablets by mouth at bed time Start: 05-12-2019 take 9 mg by mouth at bedtime Melatonin Active 9 MG PO AT BEDTIME May 11, 2019 11:00pm mupirocin 0.02 mg/mg topical ointment (1 source) RNA Synthetase Inhibitor Antibacterial Start: 06-01-2024 End: 06-11-2024 mupirocin (BACTROBAN) 2 % ointment Indications: Rhinosinusitis Apply to affected area three times a day for 10 days. 15 g 06/01/2024 06/11/2024 Active Round Top-3 Fatty Acids (13 sources) Start: 11-30-2021 take 1000 mg by mouth once daily Round Top-3 Fatty Acids Active 1000 MG PO DAILY November 29, 2021 11:00pm Start: 11-30-2021 take 1000 mg by mouth once johan ly Round Top-3 Fatty Acids Active 1000 MG PO DAILY November 30, 2021 12:00am Round Top-3 Fatty Acids (Round Top 3) Capsule (1 source) Start: 11-30-2021 take 1 capsule by mouth once daily Round Top-3 Fatty Acids (Round Top 3) Capsule Active 1000 MG PO DAILY November 30, 2021 12:00am pantoprazole 40 mg delayed release oral tablet (20 sources) Proton Pump Inhibitor Start: 11-25-2024 take 1 tablet by mouth once daily Start: 08-04-2021 End: 11-30-2021 take 1 tablet by mouth once daily Pantoprazole (Protonix) 40 mg tablet,delayed release (DR/EC) Discontinued 40 mg PO DAILY 14 0 August 04, 2021 12:00am November 30, 2021 5:21pm Start: 05-12-2019 End: 07-30-2023 take 2 tablets by mouth twice daily Pantoprazole (Protonix) 40 mg tablet,delayed release (DR/EC) Discontinued 80 mg PO TWICE A DAY November 30, 2021 5:20pm July 30, 2023 5:46pm GERD Start: 05-12-2019 End: 11-30-2021 take 80 mg by mouth twice daily Pantoprazole Discontinued 80 MG PO TWICE A DAY May 11, 2019 11:00pm November 30, 2021 9:11am take 1 tablet by tita twice daily Pantoprazole Sodium 40 MG Oral Tablet Delayed Release Take 1 tablet twice daily Quantity: 0 Refills: 0 Ordered: 26-Apr-2019 DO Active PARoxetine hydrochloride 30 mg oral tablet (13 sources) Serotonin Reuptake Inhibitor Start: 05-12-2019 take 75 mg by mouth once daily Paroxetine Hcl Active 75 MG PO DAILY May 12, 2019 10:53pm take 2.5 tablets by mouth once d aily PARoxetine HCl - 30 MG Oral Tablet TAKE 2.5 TABLET Daily Quantity: 0 Refills: 0 Ordered: 26-Apr-2019 DO Active PARoxetine (PAXI L) 40 MG tablet Indications: panic disorder Take 75 mg by mouth daily Reasons: panic disorder. 0 Active take 1 tablet by mouth twice johan ly PARoxetine (PAXIL) 40 MG tablet Take 40 mg by mouth 2 (two) times a day . Active perphenazine 2 mg oral tablet (2 sources) Phenothiazine take 1 tablet by mouth once daily perphenazine (TRILAFON) 2 MG tablet Take 2 mg by mouth daily . 0 Active prazosin 5 mg oral capsule (20 sources) alpha-Adrenergic Kezia Start: 12-01-19 take 1 capsule by mouth at bedtime Start: 11-30-2021 take 10 mg by mouth at bedtime Prazosin Active 10 MG PO AT BEDTIME November 29, 2021 11:00pm Start: 02-16-2021 take 6 mg by mouth at bedtime Prazosin Active 6 MG PO AT BEDTIME February 16, 2021 11:29am Start: 05-12-2019 End: 01-07-2020 take 1 capsule by mouth once daily Prazosin 5 MG capsule Discontinued 5 mg PO DAILY May 12, 2019 12:00am January 07, 2020 1:43pm take 6 mg by mouth once daily pr azosin (MINIPRESS) 1 MG capsule Take 6 mg by mouth nightly . 0 Active propranolol hydrochloride 10 mg oral tablet (20 sources) beta-Adrenergic Kezia Start: 02-16-2021 take 1 tablet by mouth twice daily Start: 02-16-2021 take 10 mg by mouth three times daily Propranolol Active 10 MG PO THREE TIMES A DAY February 16, 2021 12:00am Start: 02-16-2021 take 10 mg by mouth once Propr anolol Active 10 MG PO ONCE February 16, 2021 11:30am anxiety prostaglandin E-1, papaverin e, phentolamine (TRI-MIX FORMULA CUSTOM) injection (3 sources) prostaglandin E- 1, papaverine, phentolamine (TRI-MIX FORMULA CUSTOM) injection as needed. 0 Active prostaglandin E- 1, papaverine, phentolamine (TRI-MIX FORMULA CUSTOM) injection as needed. Active raNITIdine 150 mg oral tablet (3 sources) Histamine-2 Receptor Antagonist take 1 tablet by mouth once daily ranitidine (ZANTAC) 150 MG tablet Take 150 mg by mouth nightly. 0 Active rOPINIRole 2 mg oral tablet (3 sources) Nonergot Dopamine Agonist take 1 tablet by mouth once daily rOPINIRole (REQUIP) 2 MG tablet Take 2 mg by mouth nightly. 0 Active rosuvastatin calcium 20 mg oral tablet (18 sources) HMG-CoA Reductase Inhibitor Start: take 1 tablet by mouth once daily Start: 11-30-2021 End: 08-07-2023 take 1 tablet by mouth at bedtime Rosuvastatin 20 mg Tablet Discontinued 20 mg PO AT BEDTIME November 30, 2021 12:00am August 07, 2023 4:07pm HIGH CHOLESTEROL sildenafil 100 mg oral tablet (6 sources) Phosphodiesterase 5 Inhibitor Start: 03-16-2023 take 1 tablet by mouth once daily as needed End: 02-01-2017 take 1 tablet by mouth once daily as needed sildenafil (VIAGRA) 100 MG tablet Take 100 mg by mouth daily as needed for erectile dysfunction. 02/01/2017 Discontinued 1 ml testosterone cypionate 200 mg/ml injection (20 sources) Androgen Start: 11-25-2024 inject 200 mg by intramuscular injection every other week Start: 07-30-2023 End: 08-07-2023 inject 200 mg by intramuscular injection every other week Testosterone Cypionate (Depo-Testosterone) 200 mg/mL oil Discontinued 200 mg IM .[id number] July 30, 2023 12:00am August 07, 2023 4:07pm Testosterone Start: 11-30-2021 End: 01-12-2023 inject 200 mg by intramuscular injection every other week Testosterone Cypionate 200 mg/mL Oil Discontinued 200 mg IM Q14D November 30, 2021 12:00am January 12, 2023 12:04pm Start: 11-30-2021 End: 01-12-2023 inject 200 mg by intramuscular injection every other week Testosterone Cypionate Discontinued 200 MG IM Q14D November 29, 2021 11:00pm January 12, 2023 11:04am Start: 05-12-2019 End: 01-07-2020 inject 200 mg by intramuscular injection every other week Testosterone Cypionate 200 MG/ML oil Discontinued 200 mg IM .COMPLEX May 12, 2019 12:00am January 07, 2020 1:42pm once every 2 weeks Start: 05-12-2019 End: 01-07-2020 inject 200 mg by intramuscular injection every other week Testosterone Cypionate Discontinued 200 MG IM .COMPLEX May 11, 2019 11:00pm January 07, 2020 12:42pm once every 2 weeks testosterone cyp ionate (DEPOTESTOTERONE CYPIONATE) 200 mg/mL injection Inject 100 mg into the shoulder, thigh, or buttocks once a week . 0 Active testosterone cyp ionate (DEPOTESTOTERONE CYPIONATE) 200 mg/mL injection Inject 100 mg into the shoulder, thigh, or buttocks once a week . Active traZODone hydrochloride 100 mg oral tablet (20 sources) Serotonin Reuptake Inhibitor Start: 05-12-2019 take 2 tablets by mouth at bedtime Start: 05-12-2019 take 200 mg by mouth at bedtim e Trazodone Active 200 MG PO AT BEDTIME May 11, 2019 11:00pm Start: 05-12-2019 take 250 mg by mouth at bedtim e Trazodone Active 250 MG PO AT BEDTIME May 12, 2019 10:53pm take 2.5 tablets by mouth at bedtime traZODone HCl - 100 MG Oral Tablet TAKE 2.5 TABLET Bedtime Quantity: 0 Refills: 0 Ordered: 26-Apr-2019 DO Active take 1 tablet by tita th once as needed for sleep traZODone (DESYREL) 100 MG tablet Take 100 mg by mouth nightly as needed for sleep 2 tablets . Active 24 hr venlafaxine 150 mg extended release oral capsule (4 sources) Serotonin and Norepinephrine Reuptake Inhibitor Start: 10-26-2020 take 1 capsule by mouth once daily Venlafaxine (Effexor Xr) 150 mg Capsule,Extended Release 24hr Active 150 MG PO DAILY October 26, 2020 6:00pm Completed/Discontinued Medications Medication Drug Class(es) Dates Sig (Normalized) Sig (Original) acetaminophen 325 mg / HYDROcodone bitartrate 5 mg oral tablet (20 sources) Opioid Agonist Start: 08-04-2021 End: 09-20-2021 Hydrocodone-Acetami nophen 5-325 mg tablet Discontinued 1 {tbl} PO EVERY 6 HOURS as needed for pain 10 3 0 August 04, 2021 September 20, 2021 10:33am Abdominal pain Left lower quadrant pain Start: 08-04-2021 End: 09-20-2021 take 1 tablet by mouth every six hours Hydrocodone-Acetaminophen Discontinued 1 TABLET PO EVERY 6 HOURS 10 3 August 04, 2021 September 20, 2021 9:33am Start: 10-26-2020 take 1 tablet by tita th every four hours Hydrocodone-Acetaminophen Active 1 TABLE T PO Q4H 20 4 October 26, 2020 8:36pm Start: 05-13-2019 End: 05-15-2019 Hydrocodone-Acetaminophen 1 TABLET tablet Discontinued 1 {tbl} PO EVERY 4 HOURS NEEDED as needed for Pain 14 2 0 May 13, 2019 May 14, 2019 12:00am May 15, 2019 12:08am Diverticulitis Start: 05-13-2019 End: 05-15-2019 take 1 tablet by mouth every four hours as needed Hydrocodone-Acetaminophen Discontinued 1 TABLET PO EVERY 4 HOURS NEEDED 14 2 May 13, 2019 May 14, 2019 11:08pm amoxicillin 500 mg oral capsule (2 sources) Penicillin-class Antibacterial Start: 09-23-2020 take 1 capsule by mouth twice daily Amoxicillin 500 MG Oral Capsule Take 1 capsule twice daily Quantity: 20 Refills: 0 Ordered: 23-Sep-2020 Thuy Mccord Start : 23-Sep-2020 Active aspirin 81 mg delayed release oral tablet (20 sources) Nonsteroidal Anti-inflammatory Drug Start: 01-12-2023 End: 04-26-2023 take 1 tablet by mouth once daily Aspirin 81 mg tablet,delayed release (DR/EC) Discontinued 81 mg PO DAILY 30 January 12, 2023 1:00am April 26, 2023 12:39pm [facility] Start: 05-12-2019 take 81 mg by mouth once daily Aspirin Active 81 MG PO DAILY May 11, 2019 11:00pm Aspirin 81 MG TA BS TAKE 1 TABLET DAILY. Quantity: 0 Refills: 0 Ordered: 26-Apr-2019 DO Active cephalexin 500 mg oral capsule (5 sources) Cephalosporin Antibacterial Start: 01-12-2023 End: 03-16-2023 take 1 capsule by mouth every six hours Cephalexin 500 mg capsule Discontinued 500 mg PO EVERY 6 HOURS 40 January 12, 2023 1:00am March 16, 2023 8:11pm ciprofloxacin 500 mg oral tablet (20 sources) Quinolone Antimicrobial Start: 12-02-2021 End: 12-16-2021 take 1 tablet by mouth every twelve hours Ciprofloxacin Hcl 500 mg tablet Discontinued 500 mg PO Q12H 28 14 December 02, 2021 4:36pm December 15, 2021 12:00am December 16, 2021 12:03am Start: 10-26-2020 End: 11-16-2020 take 1 tablet by mouth twice daily Ciprofloxacin Hcl (Cipro) 500 mg tablet Discontinued 500 mg PO TWICE A DAY October 26, 2020 12:00am November 16, 2020 10:12am Diverticulitis clopidogrel 75 mg oral tablet (20 sources) [id number] Platelet Inhibitor Start: 12-02-2021 End: 11-25-2024 take 1 tablet by mouth once daily Clopidogrel 75 mg Tablet Discontinued 75 mg PO DAILY January 12, 2023 12:07pm November 25, 2024 8:40am BLOOD THINNER dicyclomine hydrochloride 20 mg oral tablet (13 sources) Anticholinergic Start: 01-14-2022 End: 01-11-2023 take 1 tablet by mouth twice daily Dicyclomine 20 mg tablet Discontinued 20 mg PO TWICE A DAY 20 0 January 14, 2022 1:00am January 11, 2023 3:36pm docusate sodium 100 mg oral capsule (3 sources) Start: 08-02-2023 End: 08-07-2023 take 1 capsule by mouth once daily Docusate Sodium 100 mg Capsule Discontinued 100 mg PO DAILY 0 0 August 02, 2023 12:00am August 07, 2023 4:03pm Constipation hydroCHLOROthiazide 12.5 mg oral tablet (20 sources) Thiazide Diuretic Start: 02-16-2021 End: 07-30-2023 take 1 tablet by mouth once daily at mealtime Hydrochlorothiazide 12.5 mg tablet Discontinued 12.5 mg PO EVERY MORNING March 16, 2023 1:00am July 30, 2023 5:46pm BLOOD PRESSURE take with food icosapent ethyl 1000 mg oral capsule (3 sources) Start: 07-30-2023 End: 11-25-2024 take 2 capsules by mouth twice daily Icosapent Ethyl 1 gram capsule Discontinued 2 g PO TWICE A DAY July 30, 2023 12:00am November 25, 2024 8:41am Cholesterol lactobacillus acidophilus [id number] unt oral capsule (6 sources) Start: 04-26-2019 take 1 capsule by mouth once daily Probiotic Acidophilus Oral Capsule TAKE 1 CAPSULE Daily Quantity: 90 Refills: 3 Ordered: 08-Jan-2020 Thuy Mccord Start : 26-Apr-2019 Active Start: 04-26-2019 [facility] Probiotic Acidophilus Oral Capsule TAKE 1 CAPSULE Daily Quantity: 30 Refills: 0 Hannah EPIC INTERFACE ANALYST-SNIPPER, Thuy Start : 26-Apr-2019 Active levodopa 42 mg inhalation powder (20 sources) Aromatic Amino Acid Start: 02-16-2021 End: 11-25-2024 Levodopa (Inbrija) 42 mg capsule, w/inhalation device Discontinued 84 mg INHALATION 0900,1300,1700 February 16, 2021 1:00am November 25, 2024 8:41am [facility] Start: 02-16-2021 Levodopa (Inbr ija) 42 mg capsule, w/inhalation device Active 84 MG INHALATION 0700,1100,1500 February 16, 2021 12:00am Start: 02-16-2021 Levodopa (Inbr ija) 42 mg capsule, w/inhalation device Active 84 MG INHALATION TWICE A DAY February 16, 2021 11:30am levoFLOXacin 500 mg oral tablet (1 source) Quinolone Antimicrobial Start: 05-21-2019 take 1 tablet by mouth once daily levoFLOXacin 500 MG Oral Tablet TAKE 1 TABLET DAILY FOR 28 DAYS. Quantity: 28 Refills: 0 Ahnnah EPIC INTERFACE ANALYST-SNIPPER, Thuy Start : 21-May-2019 Active lidocaine 0.05 mg/mg medicated patch (10 sources) Antiarrhythmic, Amide Local Anesthetic Start: 03-16-2023 End: 08-07-2023 apply 1 dose topically once daily as needed for pain Lidocaine 5 % Adhesive Patch,Medicated Discontinued 1 NMA TOPICAL DAILY as needed for SEVERE PAIN March 16, 2023 1:00am August 07, 2023 4:05pm PATCH SHOULDNT BE LEFT ON SKIN FOR MORE THAN 12 HOURS Please contact the information source for Protocol details. Start: 01-12-2023 End: 03-16-2023 Lidocaine 5 % Adhesive Patch ,Medicated Discontinued 1 NMA TOPICAL DAILY as needed for SEVERE PAIN 0 0 January 12, 2023 1:00am March 16, 2023 8:48pm Please contact the information source for Protocol details. metoprolol tartrate 50 mg oral tablet (20 sources) beta-Adrenergic Kezia Start: 05-12-2019 End: 01-07-2020 take 1 tablet by mouth twice daily Metoprolol Tartrate 50 MG tablet Discontinued 50 mg PO TWICE A DAY May 12, 2019 12:00am January 07, 2020 1:42pm take 1 tablet by mouth twice johan ly Metoprolol Succinate ER 50 MG Oral Tablet Extended Release 24 Hour Take 1 tablet twice daily Quantity: 0 Refills: 0 Ordered: 26-Apr-2019 DO Active metroNIDAZOLE 500 mg oral tablet (20 sources) Nitroimidazole Antimicrobial Start: 10-26-2020 End: 11-16-2020 take 1 tablet by mouth every eight hours Metronidazole (Flagyl) 500 mg tablet Discontinued 500 mg PO Q8H 30 10 0 October 26, 2020 12:00am November 16, 2020 10:12am Diverticulitis Start: 02-07-2020 End: 02-26-2020 Metronidazole 500 MG tablet Discontinued 500 mg PO .COMPLEX February 17, 2020 2:31pm February 26, 2020 8:38am PRE-OP MED 500 mg PO; 2 tabs at 1300, 2000 and 2100 night before surgery neomycin sulfate 500 mg oral tablet (20 sources) Aminoglycoside Antibacterial Start: 02-07-2020 End: 02-26-2020 Neomycin 500 MG tablet Discontinued 500 mg PO .COMPLEX February 17, 2020 2:31pm February 26, 2020 8:39am PRE-OP MED 500 mg PO; 2 tabs at 1300, 2000 and 2100 night before surgery nitroglycerin 0.4 mg sublingual tablet (1 source) Nitrate Vasodilator Start: 07-04-2018 End: 07-04-2018 nitroGLYCERIN (NITROSTAT) SL tablet 0.4 mg Round [place]-3 Fatty Acids Capsule (3 sources) Start: 11-30-2021 End: 11-25-2024 take 1 capsule by mouth once daily Round Top-3 Fatty Acids Capsule Discontinued 1000 mg PO DAILY November 30, 2021 12:00am November 25, 2024 8:41am SUPPLEMENT Start: 11-30-2021 take 1 capsule by mo [facility] once daily Round Top-3 Fatty Acids Capsule Active 1000 mg PO DAILY November 30, 2021 12:00am SUPPLEMENT ondansetron 4 mg disintegrating oral tablet (16 sources) Serotonin-3 Receptor Antagonist Start: 01-13-2022 End: 01-11-2023 take 1 tablet by mouth every eight hours as needed for nausea and vomiting Ondansetron 4 mg tablet,disintegrating Discontinued 4 mg PO Q8H as needed for nausea and vomiting 30 0 January 13, 2022 1:00am January 11, 2023 3:36pm Start: 08-04-2021 take 4 mg by mouth e very eight hours Ondansetron Active 4 MG PO Q8H August 04, 2021 7:25pm phentermine hydrochloride 37.5 mg oral tablet (1 source) Sympathomimetic Amine Anorectic Start: 06-10-2019 take 1 tablet by mouth once daily Phentermine HCl - 37.5 MG Oral Tablet TAKE 1 TABLET DAILY DIRECTED. Quantity: 30 Refills: 0 Mirtha REDD, Panchito Start : 10-Jun-2019 Active polyethylene glycol 3350 65244 mg powder for oral solution (20 sources) Osmotic Laxative Start: 11-30-2021 End: 07-30-2023 take 17 g by mouth at bedtime as needed for constipation Polyethylene Glycol 3350 17 gram Powder In Packet Discontinued 17 g PO AT BEDTIME as needed for CONSTIPATION November 30, 2021 12:00am July 30, 2023 5:46pm Start: 05-12-2019 End: 01-07-2020 take 17 g by mouth once daily Polyethylene Glycol 3350 17 GM packet Discontinued 17 g PO DAILY May 12, 2019 12:00am January 07, 2020 1:41pm Polyethylene Gly col 3350 POWD MIX WITH WATER/CLEAR LIQUID AND DRINK 8 OZ EVERY 10 MINS OR UNTIL GONE Refills: 0 DO Active 119 GM Bottle Polyethylene Gly col 3350 POWD MIX WITH WATER/CLEAR LIQUID AND DRINK 8 OZ EVERY 10 MINS OR UNTIL GONE Refills: 0 Active 119 GM Bottle Polyethylene Glycol 3350 POWD (3 sources) Polyethylene Gly col 3350 POWD MIX WITH WATER/CLEAR LIQUID AND DRINK 8 OZ EVERY 10 MINS OR UNTIL GONE Quantity: 0 Refills: 0 Ordered: 26-Apr-2019 DO Active predniSONE 10 mg oral tablet (2 sources) Start: 09-23-2020 take 3 tablets by mouth once daily predniSONE 10 MG Oral Tablet TAKE 3 TABLET Daily Quantity: 15 Refills: 0 Ordered: 23-Sep-2020 Thuy Mccord Start : 23-Sep-2020 Active psyllium 3400 mg powder for oral suspension (20 sources) Start: 05-12-2019 End: 01-07-2020 take 1 dose by mouth once daily Psyllium Husk 1 PACKET packet Discontinued 1 NMA PO DAILY May 12, 2019 12:00am January 07, 2020 1:42pm Start: 05-12-2019 End: 01-07-2020 Psyllium Husk (Aspartame) Di scontinued 1 PACKET PO DAILY May 11, 2019 11:00pm January 07, 2020 12:42pm Psyllium Husk (Daily Fiber (Psyllium-Aspart)) 3 gram Powder In Packet (3 sources) Start: 08-02-2023 End: 08-07-2023 Psyllium Husk (Daily Fiber (Psyllium-Aspart)) 3 gram Powder In Packet Discontinued 1 NMA PO DAILY 0 0 August 02, 2023 12:00am August 07, 2023 4:06pm Constipation 0.25 mg, 0.5 mg dose 1.5 ml semaglutide 1.34 mg/ml pen injector (20 sources) Start: 07-13-2021 End: 09-20-2021 Semaglutide (Ozempic) 0.25 m g or 0.5 mg(2 mg/1.5 mL) pen injector Discontinued 0.5 mg SC EVERY WEEK 5.2 90 1 July 13, 2021 12:00am September 20, 2021 10:34am Sodium Chloride (6 sources) Start: 03-16-2023 End: 03-16-2023 sodium chloride NASAL GEL ge l Discontinued NASAL DAILY March 16, 2023 1:00am March 16, 2023 8:55pm NASAL DRYNESS Start: 03-16-2023 End: 03-16-2023 sodium chloride NASAL GEL Di scontinued NASAL DAILY March 16, 2023 12:00am March 16, 2023 7:55pm Start: 07-04-2018 End: 07-04-2018 sodium chloride 0.9% (NS) Sodium Chloride-Aloe Vera (A yr Saline) gel (5 sources) Start: 03-16-2023 End: 07-30-2023 Sodium Chloride-Aloe Vera (A yr Saline) gel Discontinued 1 NMA INTRANASAL DAILY March 16, 2023 1:00am July 30, 2023 5:46pm NASAL DRYNESS Start: 03-16-2023 Sodium Chlorid e-Aloe Vera (Llano Saline) gel Active 1 APPLIC INTRANASAL DAILY March 16, 2023 12:00am sucralfate 100 mg/ml oral suspension (16 sources) Aluminum Complex Start: 03-16-2023 End: 07-30-2023 take 1 g by mouth four times daily Sucralfate (Carafate) 100 mg/mL suspension Discontinued 1 g PO 4 TIMES DAILY March 16, 2023 1:00am July 30, 2023 5:46pm ULCERS Start: 03-24-2022 End: 07-30-2023 take 1 tablet by mouth every six hours Sucralfate (Carafate) 1 gram tablet Discontinued 1 g PO EVERY 6 HOURS 28 0 March 24, 2022 1:00am July 30, 2023 5:46pm STOMACH ULCERS Problems Active Problems Problem Classification Problem Date Documented Da te Episodic/Chronic Abdominal pain (20 sources) Right lower quadrant pain; Translations: [Right upper quadrant pain] Onset: 3 Episodic Acute cerebrovascular disease (20 sources) Cerebral infarction, unspecified; Translations: [Ischemic stroke] Onset: 8 Chronic Comment on above: NO DEFICEITS ISCHEMIC. Received T NK in ER. MRI reported as negative however he has persistent neurologic deficits. 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; Translations: [Unstable angina due to arteriosclerosis of autologous artery coronary artery bypass g] 03-24-2023 Chronic Coronary atherosclerosis and other heart disease (6 sources) Coronary arteriosclerosis; Translations: [Coronary atherosclerosis of unspecified type of vessel, [place] or graft] Chronic Diabetes mellitus without complication (20 sources) Type 2 diabetes mellitus; Translations: [Type 2 diabetes mellitus without complications] Chronic Diabetes mellitus without complication (20 sources) Hyperglycemia; Translations: [Prediabetes] Onset: 5 Episodic Disorders of lipid metabolism (20 sources) Hyperlipidemia, unspecified; Translations: [Hyperlipidemia] Onset: 8 Chronic Diverticulosis and diverticulitis (20 sources) Diverticular disease; Translations: [Diverticulosis of colon (without mention of hemorrhage)] Chronic E Codes: Fall (6 sources) Fall; Translations: [Unspecified fall, initial encounter] 08-14-2022 Episodic Esophageal disorders (20 sources) Gastroesophageal reflux disease; Translations: [Gastro-esophageal reflux disease without esophagitis] 06-06-2020 Chronic Essential hypertension (20 sources) Essential (primary) hypertension; Translations: [Benign essential hypertension] Onset: 8 Chronic Gastritis and duodenitis (3 sources) Gastritis; Translations: [Gastritis, unspecified, without bleeding] 09-17-2024 Episodic Gastrointestinal hemorrhage (3 sources) Melena; Translations: [Melena] Onset: 5 11-25-2024 Episodic Genitourinary symptoms and ill-defined conditions (6 sources) Nocturia; Translations: [Nocturia] Episodic Headache, including migraine (1 source) Migraine, unspecified, not intractable, without status migrainosus; Translations: [MIGRAINE, UNSP, NOT INTRACTABLE, WITHOUT STATUS MIGRAINOSUS] Onset: 8 Chronic Headache; including migraine (3 sources) Headache; Translations: [Headache] Episodic Immunizations and screening for infectious disease (3 sources) Patient encounter status; Translations: [Special screening examination for other specified viral diseases] Episodic Inflammatory conditions of male genital organs (12 sources) Prostatitis; Translations: [Prostatitis, unspecified] Episodic Malaise and fatigue (11 sources) Fatigue; Translations: [Other malaise and fatigue] Onset: 5 Episodic Comment on above: POST STROKE DEBILITY Mycoses (3 sources) Candidiasis of mouth; Translations: [Candidiasis of mouth] Episodic Nausea and vomiting (4 sources) Nausea with vomiting, unspecified; Translations: [Nausea with vomiting] Episodic Nausea and vomiting (1 source) Vomiting, unspecified; Translations: [VOMITING, UNSPECIFIED] Onset: 8 Nonspecific chest pain (20 sources) Chest pain; Translations: [Chest pain, unspecified] Onset: 5 03-24-2022 Episodic Nutritional deficiencies (15 sources) Decreased vitamin D; Translations: [Vitamin deficiency] Episodic Other aftercare (3 sources) Long-term current use of benzodiazepine; Translations: [Other fpc (current) drug therapy] 08-10-2023 Episodic Other and ill-defined heart disease (3 sources) Left ventricular hypertrophy; Translations: [Cardiomegaly] 08-10-2023 Chronic Other and unspecified benign neoplasm (7 sources) History of polyp of colon; Translations: [Personal history of colonic polyps] 11-25-2024 Episodic Other circulatory disease (3 sources) Orthostatic hypotension; Translations: [Orthostatic hypotension] 08-04-2023 Episodic Comment on above: Likely due to the co mbined effects of high-dose Cardura and Parkinson's disease. Asymptomatic. Other connective tissue disease (20 sources) Pain in calf; Translations: [Pain in left lower leg] 02-17-2021 Episodic Other connective tissue disease (1 source) Pain in left lower leg; Translations: [Pain in limb] Episodic Other connective tissue disease (5 sources) Tenosynovitis of right radial styloid; Translations: [Radial styloid tenosynovitis [de Quervain]] 01-12-2023 Episodic Other connective tissue disease (2 sources) Radial styloid tenosynovitis [de Quervain]; Translations: [Radial styloid tenosynovitis] 01-12-2023 Episodic Other connective tissue disease (1 source) Pain of left calf; Translations: [Pain in left lower leg] 02-17-2021 Episodic Other endocrine disorders (1 source) Hypogonadism; Translations: [Hypogonadism] Chronic Other endocrine disorders (6 sources) Testicular hypofunction; Translations: [Other testicular hypofunction] Chronic Other endocrine disorders (5 sources) Male hypogonadism; Translations: [Other testicular hypofunction] Chronic Other gastrointestinal disorders (5 sources) Splenomegaly; Translations: [Splenomegaly] Episodic Other gastrointestinal disorders (20 sources) Constipation; Translations: [Constipation, unspecified] 06-06-2020 Episodic Other gastrointestinal disorders (9 sources) Constipation alternates with diarrhea; Translations: [Other specified symptoms and signs involving the digestive system and abdomen] 06-17-2022 Episodic Other gastrointestinal disorders (4 sources) Other specified symptoms and signs involving the digestive system and abdomen; Translations: [Other symptoms involving digestive system] 06-17-2022 Episodic Other gastrointestinal disorders (2 sources) Dysphagia; Translations: [Dysphagia, unspecified] 11-25-2024 Episodic Other gastrointestinal disorders (1 source) Dysphagia, unspecified; Translations: [Dysphagia, unspecified] Onset: Episodic Other liver diseases (5 sources) Hepatic fibrosis; 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 Other liver diseases (5 sources) Steatosis of liver; Translations: [Other chronic nonalcoholic liver disease] Chronic Other lower respiratory disease (8 sources) Cough; Translations: [Cough] 04-26-2023 Episodic Other lower respiratory disease (3 sources) Solitary nodule of lung; Translations: [Solitary pulmonary nodule] 09-17-2024 Episodic Other male genital disorders (3 sources) Impotence; Translations: [Erectile dysfunction] Chronic Other male genital disorders (3 sources) Male erectile dysfunction, unspecified; Translations: [Erectile dysfunction] Chronic Other nervous system disorders (3 sources) Impaired cognition 08-04-2023 Episodic Other nervous system disorders (3 sources) H/O: brain disorder; Translations: [Personal history of other diseases of the nervous system and sense organs] 08-09-2023 Episodic Other non-traumatic joint disorders (1 source) Pain in left knee; Translations: [Pain in joint, lower leg] Episodic Other non-traumatic joint disorders (5 sources) Pain in wrist; Translations: [Pain in unspecified wrist] 01-20-2023 Episodic Other non-traumatic joint disorders (2 sources) Pain in unspecified wrist; Translations: [Pain in joint, forearm] 01-12-2023 Episodic Other nutritional; endocrine; and metabolic disorders (6 sources) Cholesterol level - finding; Translations: [Lipoprotein deficiencies] Chronic Other nutritional; endocrine; and metabolic disorders (4 sources) Simple obesity ; Translations: [Obesity, unspecified] Chronic Other nutritional; endocrine; and metabolic disorders (4 sources) Morbid obesity; Translations: [Morbid obesity] Chronic Other nutritional; endocrine; and metabolic disorders (2 sources) Obesity; Translations: [Obesity, unspecified] Chronic Other nutritional; endocrine; and metabolic disorders (20 sources) Body mass index 30+ - obesity; Translations: [Body mass index (BMI) 34.0-34.9, adult] 03-05-2021 Chronic Other screening for suspected conditions (not mental disorders or infectious disease) (11 sources) Decreased testosterone level ; Translations: [Serum iron low] Onset: Episodic Comment on above: 0.7ng/ml - 04/29/2010/ 03/15 - 0.8; Other upper respiratory disease (3 sources) Congestion of nasal sinus; Translations: [Other disease of nasal cavity and sinuses] Episodic Other upper respiratory infections (1 source) Chronic sinusitis, unspecified; Translations: [Unspecified sinusitis (chronic)] 06-01-2024 Chronic Other upper respiratory infections (2 sources) Pharyngitis; Translations: [Acute pharyngitis] Episodic Paralysis (1 source) Hemiplegia, unspecified affecting right dominant side; Translations: [HEMIPLEGIA, UNSPECIFIED AFFECTING RIGHT DOMINANT SIDE] Onset: 8 Chronic Parkinson's disease (20 sources) Parkinson's disease; Translations: [Parkinson's disease] Onset: 8 06-06-2020 Chronic Comment on above: Primary Parkinson's disease; Residual codes; unclassified (3 sources) Obstructive sleep apnea syndrome; Translations: [Obstructive sleep apnea (adult)(pediatric)] Chronic Residual codes; unclassified (20 sources) Sleep apnea; Translations: [Sleep apnea, unspecified] 06-06-2020 Chronic Residual codes; unclassified (6 sources) Sleep apnea, unspecified; Translations: [Unspecified sleep apnea] Chronic Residual codes; unclassified (20 sources) History of vaccination; Translations: [Personal history of other drug therapy] 02-16-2021 Episodic Skin and subcutaneous tissue infections (7 sources) Cellulitis of right wrist; Translations: [Cellulitis of right upper limb] 01-12-2023 Episodic Sprains and strains (20 sources) Injury of left hand; Translations: [Sprain of unspecified part of left wrist and hand, initial encounter] 10-18-2020 Episodic Superficial injury; contusion (6 sources) Contusion of back; Translations: [Contusion of unspecified back wall of thorax, initial encounter] 08-14-2022 Episodic Unclassified (2 sources) Obstructive sleep apnea (adult) (pediatric); Translations: [Status post administration of tPA (rtPA) in a different facility within the last 24 hours prior to admission to current facility] Onset: 8 Chronic Unclassified (7 sources) Parkinson's disease; Translations: [Parkinson's disease] 01-10-2023 Chronic Unclassified (2 sources) Unknown / UNK(Unknown) Onset: 8 Viral infection (20 sources) Verruca plantaris; Translations: [Plantar wart] Episodic Past or Other Problems Problem Classification [...] Results Test Name Value Interpretation Reference Range Facility Surgery Visit Reporton 11-25 Surgery Visit Report [facility] [address] [place], [place] [address] OFFICE VISIT Date of Service: 11/25/24 MR#: [id number] Acct: [id number] Name: KRISHAN BURNHAM Rep #: [id number] : 1965 Provider: Dr. Jay hayes MD Age/Sex: 59/M Location: [facility] Status: Signed Intake Vital Signs 10/27/24 14:51 11/25/24 08:39 Height 5 ft 11 in 5 ft 11 in Weight: 239 lb BMI 33.3 BP 120/77 Blood Pressure Location Rt brachial Position Sitting Respiration 17 Pulse 66 Pulse Source Monitor Pulse Oximetry (%) 97 Oxygen Delivery Method room air Intake Visit Reasons: COLONOSCOPY Chief Complaint: colonoscopy Is patient in pain?: No Allergies No Known Allergies Allergy (Verified 11/25/24 08:40) Medications ???Medication ???Instructions ???Recorded ???Confirmed ???Type melatonin 3 mg tablet 9 mg PO QHS SLEEP 05/12/19 5 History trazodone 100 mg tablet 200 mg PO QHS SLEEP 05/12/1911/25 History famotidine 20 mg tablet 20 mg PO BID GERD 02/17/20 5 History propranolol 10 mg tablet 10 mg PO BID HYPERTENSION 02/16/21 11/25/24 History carbidopa ER 36.25 mg-levodopa 145 4 cap PO 4X/DAY Parkinsons 11/3011/25/24 History mg capsule,extended release (Rytary) cholecalciferol (vitamin D3) 50 50 mcg PO DAILY SUPPLEMENT 2 11/25/24 History mcg (2,000 unit) tablet diltiazem HCl 60 mg tablet 60 mg PO BID HYPERTENSION/AGINA 11/25/24 History empagliflozin 25 mg tablet 12.5 mg PO DAILY DIABETES 11/30/21 11/25/24 History (Jardiance) prazosin 5 mg capsule 10 mg PO QHS HYPERTENSION 11/30/21 11/25/24 History duloxetine 60 mg capsule,delayed 120 mg PO DAILY DEPRESSION 3 11/25/24 History release clonazepam 0.5 mg tablet 0.5 mg PO QHS PANIC ATTACKS 11/25/24 History diclofenac sodium 1 % topical gel 4 g topical BID PRN OSTEOARTHRITI S 03/16/23 08/02/23 History gabapentin 300 mg capsule 300 mg PO QHS RESTLESS LEG SYNDROM E 03/16/23 11/25/24 History sildenafil 100 mg tablet 100 mg PO DAILY PRN sexual activit y 03/16/23 11/25/24 History pantoprazole 40 mg tablet,delayed 40 mg PO QDAY 11/25/24 11/25/24 H istory release rosuvastatin 20 mg tablet 20 mg PO QDAY 11/25/24 11/25/24 Hi [facility] testosterone cypionate 200 mg/mL 200 mg IM Q2W 11/25/24 11/25/24 Hi story intramuscular oil (Depo-Testosterone) PFSH Medical History BMI 34.0-34.9,adult Left ventricular hypertrophy Chronic prescription benzodiazepine use Type 2 diabetes mellitus Testosterone deficiency in male Diverticulosis Sprain and strain of left hand COVID-19 Alternating constipation and diarrhea Wrist pain De Quervain's tenosynovitis, right Cough Cellulitis of right wrist Acute stroke due to ischemia Lupus Wears glasses History of hiatal hernia CPAP (continuous positive airway pressure) dependence Acute cerebrovascular accident (CVA) due to ischemia COVID-19 vaccine series completed Former smoker Hypertension Hyperlipidemia HTN (hypertension) Parkinsons disease GERD (gastroesophageal reflux disease) Constipation Sleep apnea Depression with anxiety Abdominal pain Diverticulitis Surgical History S/P arthroscopic surgery of left knee History of colectomy ( 02/2020) History of laparoscopic cholecystectomy History of appendectomy Family History (Updated 11/25/24 @ 08:39 by Aisha Mckeon) Mother Heart disease Hypertension High cholesterol Cancer skin cancer Thyroid disorder Diabetes Father Heart disease High cholesterol Hypertension CVA (cerebral vascular accident) Social History household members: spouse number of children: 5 current occupational status: unemployed Smoking Status: Former smoker how long ago did patient quit smoking: Quit 15 years prior, smoked socially only. alcohol intake: never substance use type: does not use HPI HPI HPI: Patient is a 59-year-old male here with 2 issues. First he is having melanotic stools occasionally. He reports they are foul-smelling and he reports that he is having bloating and diarrhea after eating. He is on omeprazole and famotidine. He also reports he is having difficulty swallowing with food getting stuck in his esophagus. He is also having left lower quadrant pain that has been chronic since his colectomy 3 years ago. He reports normal stools except for the melena. ROS General General: Yes fatigue; No weight change, appetite, colon cancer, breast cancer or weakness HEENT HEENT: Yes difficulty swallowing; No eye injury, eye surgery, swollen glands or hoarseness (more content not included)... Normal [facility] Abdomen/Pelvis W IV Cont ONL Yon 10-27-2024 Abdomen/Pelvis W IV Cont ONLY [facility] Imaging Services [address] [place] [address] Abdomen/Pelvis W IV Cont ONLY MR#: [id number] Acct: [id number] Name: KRISHAN BURNHAM Rep #: [id number] : 1965 M 59 From: William Beasley MD PCP: [facility] Status: REG ER Study: Abdomen/Pelvis W IV Cont ONLY Date of Exam: Exam# [id number] Ordering Dr: Javy Navarro MD PROCEDURE: ABDOMEN/PELVIS W IV CONT ONLY 10/27/2024 REASON FOR EXAM: ABD PAIN AND HX OF DIVERTICULITIS TECHNIQUE: Procedure Code: CTABDPELIV Modality: CT Procedure: ABDOMEN/PELVIS W IV CONT ONLY Coronal and Sagittal reconstruction series were provided. CONTRAST: Isovue 370 VOLUME: 100 mL One or more dose reduction techniques were used (e.g., Automated exposure control, adjustment of the mA and/or kV according to patient size, use of iterative reconstruction technique. RADIATION DOSE SUMMARY: CTDlvol: 30 mGy DLP: 1162 mGycm COMPARISON: 09/17/2024 FINDINGS: Gallbladder surgically absent. Normal liver. Normal spleen. Normal pancreas. No renal mass or hydronephrosis. Normal adrenal glands. Postsurgical changes in the sigmoid colon. No free-fluid. No free air. No abscess. Currently no diverticulitis or appendicitis. CT/Abdomen/Pelvis W IV Cont ONLY IMPRESSION: Currently, there is no acute abnormality. The lung bases are clear Reading Location: [facility] CC: Dr. Javy Navarro MD; [facility] Office Specialist: Signed Normal [facility] Absolute lymphocyte countOrd ered By: Javy Navarro on 10-27-2024 Lymphocytes Auto (Unsp spec) [#/Vol] 1.29 10*3/uL 0.83-4.51 [facility] Absolute neutrophil countOrd ered By: Javy Navarro on 10-27-2024 Neutrophils (Bld) [#/Vol] 3.8 10*3/uL 2.0-7.7 [facility] Anion gap in Serum or Plasma Ordered By: Javy Navarro on 10-27-2024 Anion gap [Moles/Vol] 16 mmol/L High 5-15 [facility] Automated lymphocyte count a s percentage of total leukocytesOrdered By: Javy Navarro on 10-27-2024 Lymphocytes/100 WBC Auto (Unsp spec) 22.0 % 19-41 [facility] BUN/creatinine ratioOrdered By: Javy Navarro on 10-27-2024 Urea nitrogen/Creatinine [Mass ratio] 10.9 mg/mg 10-20 [facility] Basophil percentageOrdered B y: Javy Navarro on 10-27-2024 Basophils/100 WBC (Bld) 0.7 % 0-1 [facility] Bilirubin Test strip Ql (U)O rdered By: Javy Navarro on 10-27-2024 Bilirubin Ql (U) Negative Negative [facility] Bilirubin, totalOrdered By: Javy Navarro on 10-27-2024 Bilirubin [Mass/Vol] 0.42 mg/dL 0.00-1.30 [facility] CBC W/Diff, Automatedon 09-29 Absolute Lymph 1.29 X10 3/uL Normal 0.83-4.51 [facility] Comment on above: Performed By: #### L 500.4050, L501.2450, L100.0100 ####[facility] [address] [place], [place], [id number] Absolute Neut 3.8 X10 3/uL Normal 2.0-7.7 [facility] Comment on above: Performed By: #### L 500.4050, L501.2450, L100.0100 ####[facility] [address] [place], [address] Basophils/100 WBC (Bld) 0.7 % Normal 0-1 [facility] Comment on above: Performed By: #### L 500.4050, L501.2450, L100.0100 ####[facility] [address] [place], [address] Eosinophils/100 WBC (Bld) 3.9 % Normal 0-5 [facility] Comment on above: Performed By: #### L 500.4050, L501.2450, L100.0100 ####[facility] [address] [place], [address] Erythrocyte distribution width (RBC) [Ratio] 12.6 % Normal 11.6-14.6 [facility] Comment on above: Performed By: #### L 500.4050, L501.2450, L100.0100 ####[facility] [address] [place], [address] Hematocrit (Bld) [Volume fraction] 41.8 % Normal 40-54 [facility] Comment on above: Performed By: #### L 500.4050, L501.2450, L100.0100 ####[facility] [address] [place], [address] Hemoglobin (Bld) [Mass/Vol] 14.5 g/dL Normal 13.0-16.5 [facility] Comment on above: Performed By: #### L 500.4050, L501.2450, L100.0100 ####[facility] [address] [place], [address] IG% 0.300 Normal 0.0-0.9 [facility] Comment on above: Result Comment: IG% - Immature Granulocytes (promyelocytes, myelocytes and metamyelocytes) > 1% indicates that a LEFT SHIFT is Present. Performed By: #### L 500.4050, L501.2450, L100.0100 ####[facility] [address] [place], [address] Lymphocytes/100 WBC (Bld) 22.0 % Normal 19-41 [facility] Comment on above: Performed By: #### L 500.4050, L501.2450, L100.0100 ####[facility] [address] [place], [address] MCH (RBC) [Entitic mass] 29.4 pg Normal 27.0-32.0 [facility] Comment on above: Performed By: #### L 500.4050, L501.2450, L100.0100 ####[facility] [address] [place], [address] MCHC (RBC) [Mass/Vol] 34.7 g/dL Normal 32-36 [facility] Comment on above: Performed By: #### L 500.4050, L501.2450, L100.0100 ####[facility] [address] [place], [address] MCV (RBC) [Entitic vol] 84.8 fL Normal 80-94 [facility] Comment on above: Performed By: #### L 500.4050, L501.2450, L100.0100 ####[facility] [address] [place], [address] Monocytes/100 WBC (Bld) 9.2 % Normal 0-10 [facility] Comment on above: Performed By: #### L 500.4050, L501.2450, L100.0100 ####[facility] [address] [place], [address] Neutrophils/100 WBC (Bld) 63.9 % Normal 47-70 [facility] Comment on above: Performed By: #### L 500.4050, L501.2450, L100.0100 ####[facility] [address] [place], [address] Nucleated RBC (Bld) [#/Vol] 0 10*3/uL Normal 0-5 [facility] Comment on above: Performed By: #### L 500.4050, L501.2450, L100.0100 ####[facility] [address] [place], [address] Platelet mean volume (Bld) [Entitic vol] 9.5 fL Normal 6.2-12.0 [facility] Comment on above: Performed By: #### L 500.4050, L501.2450, L100.0100 ####[facility] [address] [place], [address] Platelets (Bld) [#/Vol] 146 10*3/uL Low 150-450 [facility] Comment on above: Performed By: #### L 500.4050, L501.2450, L100.0100 ####[facility] [address] [place], [address] RBC (Bld) [#/Vol] 4.93 10*6/uL Normal 4.6-6.2 [facility] Comment on above: Performed By: #### L 500.4050, L501.2450, L100.0100 ####[facility] [address] [place], [address] RDW SD 37.9 fl Normal 35.1-43.9 [facility] Comment on above: Performed By: #### L 500.4050, L501.2450, L100.0100 ####[facility] [address] [place], [address] WBC (Bld) [#/Vol] 5.9 10*3/uL Normal 4.4-11.0 [facility] Comment on above: Performed By: #### L 500.4050, L501.2450, L100.0100 ####[facility] [address] [place], [address] Carbon dioxide, total [Moles /volume] in Central venous bloodOrdered By: Javy Navarro on 10-27-2024 CO2 [Moles/Vol] 16.5 mmol/L Low 21.0-32.0 [facility] Chloride assayOrdered By: Juanito Navarro on 10-27-2024 Chloride [Moles/Vol] 103 mmol/L 98-108 [facility] Comprehensive Metabolic Prof ilon 10-27-2024 Albumin [Mass/Vol] 4.3 g/dL Normal 3.5-5.0 [facility] Comment on above: Performed By: #### L 500.4050, L501.2450, L100.0100 ####[facility] [address] [place], [address] Albumin/Globulin [Mass ratio] 1.7 {ratio} Normal 0.9-2.4 [facility] Comment on above: Performed By: #### L 500.4050, L501.2450, L100.0100 ####[facility] [address] [place], [address] ALK PHOS 76 U/L Normal 40-129 [facility] Comment on above: Performed By: #### L 500.4050, L501.2450, L100.0100 ####[facility] [address] [place], [address] ALT [Catalytic activity/Vol] 24 U/L Normal <=46 [facility] Comment on above: Performed By: #### L 500.4050, L501.2450, L100.0100 ####[facility] [address] [place], [address] AST [Catalytic activity/Vol] 21 U/L Normal <=37 [facility] Comment on above: Performed By: #### L 500.4050, L501.2450, L100.0100 ####[facility] [address] [place], [address] Bilirubin [Mass/Vol] 0.42 mg/dL Normal 0.00-1.30 [facility] Comment on above: Performed By: #### L 500.4050, L501.2450, L100.0100 ####[facility] [address] [place], [address] BUN/CRE 10.9 RATIO Normal 10-20 [facility] Comment on above: Performed By: #### L 500.4050, L501.2450, L100.0100 ####[facility] [address] [place], [address] Calcium [Mass/Vol] 8.8 mg/dL Normal 7.6-11.0 [facility] Comment on above: Performed By: #### L 500.4050, L501.2450, L100.0100 ####[facility] [address] [place], [address] Chloride [Moles/Vol] 103 mmol/L Normal 98-108 [facility] Comment on above: Performed By: #### L 500.4050, L501.2450, L100.0100 ####[facility] [address] [place], [address] CO2 [Moles/Vol] 16.5 mmol/L Low 21.0-32.0 [facility] Comment on above: Performed By: #### L 500.4050, L501.2450, L100.0100 ####[facility] [address] [place], [address] Creatinine [Mass/Vol] 1.03 mg/dL Normal 0.70-1.20 [facility] Comment on above: Performed By: #### L 500.4050, L501.2450, L100.0100 ####[facility] [address] [place], [address] ECRCL 96.75 ml/min Normal 50-250 [facility] Comment on above: Performed By: #### L 500.4050, L501.2450, L100.0100 ####[facility] [address] [place], [address] GAP 16 High 5-15 [facility] Comment on above: Performed By: #### L 500.4050, L501.2450, L100.0100 ####[facility] [address] [place], [address] GFR/1.73 sq M.predicted among non-blacks MDRD (S/P/Bld) [Vol rate/Area] 84 mL/min/{1.73_m2} Normal >60 [facility] Comment on above: Result Comment: mL/m in/1.73m2 CKD-EPI Creatinine Equation (2020) Performed By: #### L 500.4050, L501.2450, L100.0100 ####[facility] [address] [place], [address] Globulin (S) [Mass/Vol] 2.5 g/dL Normal 2.2-4.2 [facility] Comment on above: Performed By: #### L 500.4050, L501.2450, L100.0100 ####[facility] [address] [place], [address] Glucose [Mass/Vol] 269 mg/dL High 70-99 [facility] Comment on above: Performed By: #### L 500.4050, L501.2450, L100.0100 ####[facility] [address] [place], [address] Potassium [Moles/Vol] 3.7 mmol/L Normal 3.3-5.1 [facility] Comment on above: Performed By: #### L 500.4050, L501.2450, L100.0100 ####[facility] [address] [place], [address] Sodium [Moles/Vol] 135 mmol/L Normal 133-145 [facility] Comment on above: Performed By: #### L 500.4050, L501.2450, L100.0100 ####[facility] [address] [place], [address] T PROT 6.8 g/dL Normal 5.9-8.4 [facility] Comment on above: Performed By: #### L 500.4050, L501.2450, L100.0100 ####[facility] [address] [place], [address] Urea nitrogen [Mass/Vol] 11 mg/dL Normal 4-19 [facility] Comment on above: Performed By: #### L 500.4050, L501.2450, L100.0100 ####[facility] [address] [place], [address] Emergency Department Summary on 10-27-2024 Emergency Department Summary [facility] Medical Records Department [address] [place] [address] Emergency Department Summary 10/27/24 MR#: [id number] Acct: [id number] Name: KRISHAN BURNHAM Rep #: [id number] : 1965 59 From: Javy Navarro MD PCP: [facility] Status:DEP ER Location: ED HPI HPI - GI History of Present Illness Chief Complaint: Abd Pain Informant: patient Abdominal Pain/Flank Pain Onset: Weeks Context: Gradual Onset Timing: Intermittent Location: Diffuse and LLQ Current Severity: Mild Maximum Severity: Mild Worsened by: Nothing Relieved by: Nothing Nausea/Vomiting/Emesis GI Symptom: Positive for Nausea Severity: Mild Diarrhea/Melena/Hematoche michelle GI Symptom: Positive for Diarrhea and - (Intermittent constipation) Onset: Days Severity: Mild Associated Symptoms Associated Symptoms: Negative for Dysuria, Frequency, Hematuria or Urgency Narrative Narrative: 59-year-old male history of prior diverticulitis, diabetes, prior cholecystectomy, appendectomy and partial colon resection due to diverticulitis and prior hernia repair. She has had intermittent abdominal pain last 2 to 3 weeks at times it is more in the left lower quadrant other times is diffuse. He has had no vomiting but some nausea. Intermittent loose stools and constipation. But he is having bowel movements. Denies any urinary symptoms. No weight change. Prior similar symptoms: Yes Recent Illness/Hospitalization: No PFSH PFSH Medical History BMI 34.0-34.9,adult Left ventricular hypertrophy Chronic prescription benzodiazepine use Type 2 diabetes mellitus Testosterone deficiency in male Diverticulosis Sprain and strain of left hand COVID-19 Alternating constipation and diarrhea Wrist pain De Quervain's tenosynovitis, right Cough Cellulitis of right wrist Acute stroke due to ischemia Lupus Wears glasses History of hiatal hernia CPAP (continuous positive airway pressure) dependence Acute cerebrovascular accident (CVA) due to ischemia COVID-19 vaccine series completed Former smoker Hypertension Hyperlipidemia HTN (hypertension) Parkinsons disease GERD (gastroesophageal reflux disease) Constipation Sleep apnea Depression with anxiety Abdominal pain Diverticulitis Home Medications ???Medication ???Instructions ???Recorded ???Last Taken ???Type melatonin 3 mg tablet 9 mg PO QHS SLEEP 05/12/19 4 History trazodone 100 mg tablet 200 mg PO QHS SLEEP 05/12/1907/31 History famotidine 20 mg tablet 20 mg PO BID GERD 02/17/20 4 History levodopa 42 mg capsule with 84 mg inhalation 0900,1300,1700 08/02/23 History inhalation device (Inbrija) PARKINSONS propranolol 10 mg tablet 10 mg PO BID HYPERTENSION 02/16/21 08/02/23 History carbidopa ER 36.25 mg-levodopa 145 4 cap PO 4X/DAY Parkinsons 11/3008/02/23 History mg capsule,extended release (Rytary) cholecalciferol (vitamin D3) 50 50 mcg PO DAILY SUPPLEMENT 2 08/02/23 History mcg (2,000 unit) tablet diltiazem HCl 60 mg tablet 60 mg PO BID HYPERTENSION/AGINA 03/16/23 History empagliflozin 25 mg tablet 12.5 mg PO DAILY DIABETES 11/30/21 08/02/23 History (Jardiance) omega-3 fatty acids 1,000 mg PO DAILY SUPPLEMENT 11/3003/16/23 History prazosin 5 mg capsule 10 mg PO QHS HYPERTENSION 11/30/21 08/02/23 History duloxetine 60 mg capsule,delayed 120 mg PO DAILY DEPRESSION 3 08/02/23 History release clopidogrel 75 mg tablet 75 mg PO DAILY BLOOD THINNER #21 1 03/14/22 03/16/23 Rx tabs clonazepam 0.5 mg tablet 0.5 mg PO QHS PANIC ATTACKS 03/14/23 History diclofenac sodium 1 % topical gel 4 g topical BID PRN OSTEOARTHRITI S 03/16/23 Unknown History gabapentin 300 mg capsule 300 mg PO QHS RESTLESS LEG SYNDROM E 03/16/23 03/15/23 History sildenafil 100 mg tablet 100 mg PO DAILY PRN sexual activit y 03/16/23 Unknown History icosapent ethyl 1 gram capsule 2 g PO BID Cholesterol 07/30/23 History Allergy/AdvReac Type Severity Reaction Status Date / Time No Known Allergies Allergy Verified 10/27/24 14:51 Family History Mother Heart disease Hypertension High cholesterol Cancer skin cancer Father Heart disease High cholesterol Hypertension CVA (cerebral vascular accident) Surgical History S/P arthroscopic surgery of left knee History of colectomy ( 02/2020) History of laparoscopic cholecystectomy History of appendectomy Social History household members: spouse number of children: 5 current occupational status: unemployed Smoking Status: Former smoker (more content not included)... Normal [facility] Eosinophil percentageOrdered By: Javy Navarro on 10-27-2024 Eosinophils/100 WBC (Bld) 3.9 % 0-5 [facility] Erythrocyte distribution wid th ratioOrdered By: Javy Navarro on 10-27-2024 Erythrocyte distribution width (RBC) [Ratio] 12.6 % 11.6-14.6 [facility] Erythrocyte distribution wid th standard deviationOrdered By: Javy Navarro on 10-27-2024 Erythrocyte distribution width (RBC) [Ratio] 37.9 fl 35.1-43.9 [facility] Glomerular filtration rate ( GFR) estimation/1.73 sq m using serum, plasma, or whole bOrdered By: Javy Navarro on 10-27-2024 GFR/1.73 sq M.predicted among non-blacks MDRD (S/P/Bld) [Vol rate/Area] 84 mL/min/{1.73_m2} >60 [facility] Comment on above: mL/min/1.73m2 CKD-EP I Creatinine Equation (2020) Hematocrit Auto (Bld) [Volum e fraction]Ordered By: Javy Navarro on 10-27-2024 Hematocrit (Bld) [Volume fraction] 41.8 % 40-54 [facility] Hemoglobin measurementOrdere d By: Javy Navarro on 10-27-2024 Hemoglobin (Bld) [Mass/Vol] 14.5 g/dL 13.0-16.5 [facility] Immature granulocytes/100 WB C Auto (Bld)Ordered By: Javy Navarro on 10-27-2024 Immature granulocytes/100 WBC (Bld) 0.300 % 0.0-0.9 [facility] Comment on above: IG% - Immature Granu locytes (promyelocytes, myelocytes and metamyelocytes) > 1% indicates that a LEFT SHIFT is Present. Ketones Test strip Ql (U)Ord ered By: Javy Navarro on 10-27-2024 Ketones Ql (U) Negative Negative [facility] Laboratory - Chemistry and C hemistry - challengeOrdered By: Javy Navarro on 10-27-2024 AST [Catalytic activity/Vol] 21 U/L <38 [facility] Lipaseon 10-27-2024 Lipase [Catalytic activity/Vol] 29 U/L Normal 13-75 [facility] Comment on above: Result Comment: Homar james note: LIPASE revised reference range effective 22. New Lipase methodology. Expected to produce lower values than the previous assay method. NEW Reference Range: 13 - 75 U/L Performed By: #### L 500.4050, L501.2450, L100.0100 ####[facility] [address] [place], [address] Lipase measurementOrdered By : Javy Navarro on 10-27-2024 Lipase [Catalytic activity/Vol] 29 U/L 13-75 [facility] Comment on above: Please note:LIPASE r evised reference range effective 22. New Lipase methodology. Expected to produce lower values than the previous assay method. NEW Reference Range: 13 - 75 U/L MCV (mean corpuscular volume ) determinationOrdered By: Javy Navarro on 10-27-2024 MCV (RBC) [Entitic vol] 84.8 fL 80-94 [facility] Mean corpuscular hemoglobin (MCH) determinationOrdered By: Javy Navarro on 10-27-2024 MCH (RBC) [Entitic mass] 29.4 pg 27.0-32.0 [facility] Mean corpuscular hemoglobin concentration (MCHC) determinationOrdered By: Javy Navarro on 10-27-2024 MCHC (RBC) [Mass/Vol] 34.7 g/dL 32-36 [facility] Mean platelet volume determi nationOrdered By: Javy Navarro on 10-27-2024 Platelet mean volume (Bld) [Entitic vol] 9.5 fL 6.2-12.0 [facility] Microscopic analysis of urin e for red blood cells (RBC)Ordered By: Jayv Navarro on 10-27-2024 Microscopic analysis of urine for red blood cells (RBC) 0 SEEN /hpf 0-5 [facility] Monocyte percentageOrdered B y: Javy Navarro on 10-27-2024 Monocytes/100 WBC (Bld) 9.2 % 0-10 [facility] Mucus LM Ql (Urine sed)Order ed By: Javy Navarro on 10-27-2024 Mucus Ql (Urine sed) 0 SEEN /hpf [facility] Neutrophil percentageOrdered By: Javy Navarro on 10-27-2024 Neutrophils/100 WBC (Bld) 63.9 % 47-70 [facility] Nitrite Test strip Ql (U)Ord ered By: Javy Navarro on 10-27-2024 Nitrite Ql (U) Negative Negative [facility] Nucleated red blood cell per centageOrdered By: Javy Navarro on 10-27-2024 Nucleated RBC/100 WBC (Bld) [Ratio] 0 % 0-5 [facility] Platelet countOrdered By: Juanito Navarro on 10-27-2024 Platelets (Bld) [#/Vol] 146 10*3/uL Low 150-450 [facility] Potassium measurement (mass/ volume)Ordered By: Javy Navarro on 10-27-2024 Potassium (Unsp spec) [Mass/Vol] 3.7 mmol/L 3.3-5.1 [facility] Protein Test strip Ql (U)Ord ered By: Javy Navarro on 10-27-2024 Protein Ql (U) Negative Negative [facility] RBC Auto (Bld) [#/Vol]Ordere d By: Javy Navarro on 10-27-2024 RBC (Bld) [#/Vol] 4.93 10*6/uL 4.6-6.2 [facility] Serum creatinine measurement (mass/volume)Ordered By: Javy Navarro on 10-27-2024 Creatinine [Mass/Vol] 1.03 mg/dL 0.70-1.20 [facility] Serum globulin measurementOr dered By: Javy Navarro on 10-27-2024 Globulin (S) [Mass/Vol] 2.5 g/dL 2.2-4.2 [facility] Serum glucose measurement (m ass/volume)Ordered By: Javy Navarro on 10-27-2024 Glucose [Mass/Vol] 269 mg/dL High 70-99 [facility] Serum or plasma alanine layton otransferase (ALT) measurementOrdered By: Javy Navarro on 10-27-2024 ALT [Catalytic activity/Vol] 24 U/L <47 [facility] Serum or plasma albumin noy urement (mass/volume)Ordered By: Javy Navarro on 10-27-2024 Albumin [Mass/Vol] 4.3 g/dL 3.5-5.0 [facility] Serum or plasma albumin/glob ulin mass ratioOrdered By: Javy Navaror on 10-27-2024 Albumin/Globulin [Mass ratio] 1.7 {ratio} 0.9-2.4 [facility] Serum or plasma alkaline usha sphatase measurementOrdered By: Javy Navarro on 10-27-2024 ALP [Catalytic activity/Vol] 76 U/L 40-129 [facility] Serum or plasma calcium ony urement (mass/volume)Ordered By: Javy Navaror on 10-27-2024 Calcium [Mass/Vol] 8.8 mg/dL 7.6-11.0 [facility] Serum or plasma urea nitroge n measurement (mass/volume)Ordered By: Javy Navarro on 10-27-2024 Urea nitrogen [Mass/Vol] 11 mg/dL 4-19 [facility] Sodium levelOrdered By: Javy Navarro on 10-27-2024 Sodium [Moles/Vol] 135 mmol/L 133-145 [facility] Squamous epithelial cells de tection in urine sediment by light microscopyOrdered By: Javy Navarro on 10-27-2024 Epithelial cells.squamous LM Ql (Urine sed) 0-5 SEEN /hpf 0-5 [facility] Total proteinOrdered By: Angel Navarro on 10-27-2024 Protein [Mass/Vol] 6.8 g/dL 5.9-8.4 [facility] Urinalysis, Completeon 10-27 EPI,SQUAMOUS 0-5 SEEN Normal 0-5 [facility] Comment on above: Order Comment: CLEAN CATCH Performed By: #### L 400.0001 ####[facility] [address] [place], [address] WBC 0-5 SEEN Normal 0-5 [facility] Comment on above: Order Comment: CLEAN CATCH Performed By: #### L 400.0001 ####[facility] [address] [place], [address] BACTERIA 0 SEEN Normal None Seen [facility] Comment on above: Order Comment: CLEAN CATCH Performed By: #### L 400.0001 ####[facility] [address] [place], [address] Mucus Ql (Urine sed) 0 SEEN Normal [facility] Comment on above: Order Comment: CLEAN CATCH Performed By: #### L 400.0001 ####[facility] [address] [place], [address] RBC 0 SEEN Normal 0-5 [facility] Comment on above: Order Comment: CLEAN CATCH Performed By: #### L 400.0001 ####[facility] [address] [place], [address] Urine clarityOrdered By: Angel Navarro on 10-27-2024 Clarity (U) Clear Clear [facility] Urine color determinationOrd ered By: Javy Navarro on 10-27-2024 Color (U) Yellow Yellow [facility] Urine glucose detectionOrder ed By: Javy Navarro on 10-27-2024 Glucose Ql (U) 1000 mg/dl High Normal [facility] Urine leukocyte esterase det ection by dipstickOrdered By: Javy Navarro on 10-27-2024 Leukocyte esterase Test strip Ql (U) Negative Negative [facility] Urine pHOrdered By: Javy Coppola ghandre on 10-27-2024 pH (U) 6.0 [pH] 5.0 - 8.0 [facility] Urine sediment bacteria coun t by microscopy (number/high power field)Ordered By: Javy Navarro on 10-27-2024 Bacteria LM.HPF (Urine sed) [#/Area] 0 /[HPF] None Seen [facility] Urine specific gravity measu rementOrdered By: Javy Navarro on 10-27-2024 Specific gravity (U) [Rel density] 1.015 1.002-1.03 0 [facility] Urine urobilinogen measureme ntOrdered By: Javy Navarro on 10-27-2024 Urobilinogen Ql (U) Normal mg/dl Normal [facility] White blood cell (WBC) count Ordered By: Javy Navarro on 10-27-2024 WBC (Bld) [#/Vol] 5.9 10*3/uL 4.4-11.0 [facility] White blood cell countOrdere d By: Javy Navarro on 10-27-2024 White blood cell count 0-5 SEEN /hpf 0-5 [facility] 12 Lead EKGon 09-17-2024 12 Lead EKG [facility] [address] [place] [address] 12 Lead EKG 09/17/24 1112 MR#: [id number] Acct: [id number] Name: KRISHAN BURNHAM JOHANNY Rep #: [id number] : 1965 59 From: Jhony Ortiz MD Attending Dr: Status: DEP ER Ordering Dr: Bib Beavers DO Date: 09/17/24 Location: ED Sex: M C Admitted: Test Reason : CHEST PAIN Blood Pressure : */* mmHG Vent. Rate : 77 BPM Atrial Rate : 77 BPM P-R Int : 180 ms QRS Dur : 84 ms QT Int : 378 ms P-R-T Axes : 34 -24 2 degrees QTcB Int : 427 ms Normal sinus rhythm Minimal voltage criteria for LVH, may be normal variant ( R in aVL ) Borderline ECG Confirmed by Jhony Ortiz ([id number]), editor city BRET ARCOS ([id number]) on 09/18/2024 1:47:09 PM Referred By: Confirmed By: Jhony Ortiz 09/18/24 1347 Date Jhony Ortiz MD CC: Dr. Bib Beavers, ; [facility] Signed Normal [facility] Absolute lymphocyte countOrd ered By: Bib Beavers on 09-17-2024 Lymphocytes Auto (Unsp spec) [#/Vol] 1.66 10*3/uL 0.83-4.51 [facility] Absolute neutrophil countOrd ered By: Bib Beavers on 09-17-2024 Neutrophils (Bld) [#/Vol] 3.7 10*3/uL 2.0-7.7 [facility] Activated partial thrombopla stin time (aPTT) in platelet poor plasma by coagulation aOrdered By: Bib Beavers on 09-17-2024 aPTT Coag (PPP) [Time] 24.1 s 24.1-36.2 [facility] Anion gap in Serum or Plasma Ordered By: Bib Beavers on 09-17-2024 Anion gap [Moles/Vol] 15 mmol/L 5-15 [facility] Automated lymphocyte count a s percentage of total leukocytesOrdered By: Bbi Beavers on 09-17-2024 Lymphocytes/100 WBC Auto (Unsp spec) 26.2 % 19-41 [facility] BUN/creatinine ratioOrdered By: Bib Beavers on 09-17-2024 Urea nitrogen/Creatinine [Mass ratio] 14.1 mg/mg 10-20 [facility] Basic Metabolic Profile (BMP )on 09-17-2024 BUN/CRE 14.1 RATIO Normal 10-20 [facility] Comment on above: Performed By: #### L 300.3900, L100.0100, L300.4310, L500.2500, L501.4021 #### [facility] [address] [place], [address] Calcium [Mass/Vol] 9.2 mg/dL Normal 7.6-11.0 [facility] Comment on above: Performed By: #### L 300.3900, L100.0100, L300.4310, L500.2500, L501.4021 #### [facility] [address] [place], [address] Chloride [Moles/Vol] 101 mmol/L Normal 98-108 [facility] Comment on above: Performed By: #### L 300.3900, L100.0100, L300.4310, L500.2500, L501.4021 #### [facility] [address] [place], [address] CO2 [Moles/Vol] 21.5 mmol/L Normal 21.0-32.0 [facility] Comment on above: Performed By: #### L 300.3900, L100.0100, L300.4310, L500.2500, L501.4021 #### [facility] [address] [place], [address] Creatinine [Mass/Vol] 1.05 mg/dL Normal 0.70-1.20 [facility] Comment on above: Performed By: #### L 300.3900, L100.0100, L300.4310, L500.2500, L501.4021 #### [facility] [address] [place], [address] ECRCL 95.68 ml/min Normal 50-250 [facility] Comment on above: Performed By: #### L 300.3900, L100.0100, L300.4310, L500.2500, L501.4021 #### [facility] [address] [place], [address] GAP 15 Normal 5-15 [facility] Comment on above: Performed By: #### L 300.3900, L100.0100, L300.4310, L500.2500, L501.4021 #### [facility] [address] [place], [address] GFR/1.73 sq M.predicted among non-blacks MDRD (S/P/Bld) [Vol rate/Area] 82 mL/min/{1.73_m2} Normal >60 [facility] Comment on above: Result Comment: mL/m in/1.73m2 CKD-EPI Creatinine Equation (2020) Performed By: #### L 300.3900, L100.0100, L300.4310, L500.2500, L501.4021 #### [facility] [address] [place], [address] Glucose [Mass/Vol] 205 mg/dL High 70-99 [facility] Comment on above: Performed By: #### L 300.3900, L100.0100, L300.4310, L500.2500, L501.4021 #### [facility] [address] [place], [address] Potassium [Moles/Vol] 3.9 mmol/L Normal 3.3-5.1 [facility] Comment on above: Result Comment: Hemo lysis present, Results??could be affected. ?? Performed By: #### L 300.3900, L100.0100, L300.4310, L500.2500, L501.4021 #### [facility] [address] [place], [address] Sodium [Moles/Vol] 138 mmol/L Normal 133-145 [facility] Comment on above: Performed By: #### L 300.3900, L100.0100, L300.4310, L500.2500, L501.4021 #### [facility] [address] [place], [address] Urea nitrogen [Mass/Vol] 15 mg/dL Normal 4-19 [facility] Comment on above: Performed By: #### L 300.3900, L100.0100, L300.4310, L500.2500, L501.4021 #### [facility] [address] [place], [address] Basophil percentageOrdered B y: Bib Beavers on 09-17-2024 Basophils/100 WBC (Bld) 0.6 % 0-1 [facility] Bilirubin directOrdered By: Bib Beavers on 09-17-2024 Bilirubin.direct [Mass/Vol] 0.13 mg/dL 0.00-0.30 [facility] Comment on above: Hemolysis present, R esults could be affected. Bilirubin, totalOrdered By: Bib Beavers on 09-17-2024 Bilirubin [Mass/Vol] 0.41 mg/dL 0.00-1.30 [facility] CBC W/Diff, Automatedon 08-28 Absolute Lymph 1.66 X10 3/uL Normal 0.83-4.51 [facility] Comment on above: Performed By: #### L 300.3900, L100.0100, L300.4310, L500.2500, L501.4021 #### [facility] [address] [place], [address] Absolute Neut 3.7 X10 3/uL Normal 2.0-7.7 [facility] Comment on above: Performed By: #### L 300.3900, L100.0100, L300.4310, L500.2500, L501.4021 #### [facility] [address] [place], [address] Basophils/100 WBC (Bld) 0.6 % Normal 0-1 [facility] Comment on above: Performed By: #### L 300.3900, L100.0100, L300.4310, L500.2500, L501.4021 #### [facility] [address] [place], [address] Eosinophils/100 WBC (Bld) 2.7 % Normal 0-5 [facility] Comment on above: Performed By: #### L 300.3900, L100.0100, L300.4310, L500.2500, L501.4021 #### [facility] [address] [place], [address] Erythrocyte distribution width (RBC) [Ratio] 12.7 % Normal 11.6-14.6 [facility] Comment on above: Performed By: #### L 300.3900, L100.0100, L300.4310, L500.2500, L501.4021 #### [facility] [address] [place], [address] Hematocrit (Bld) [Volume fraction] 43.4 % Normal 40-54 [facility] Comment on above: Performed By: #### L 300.3900, L100.0100, L300.4310, L500.2500, L501.4021 #### [facility] [address] [place], [address] Hemoglobin (Bld) [Mass/Vol] 15.1 g/dL Normal 13.0-16.5 [facility] Comment on above: Performed By: #### L 300.3900, L100.0100, L300.4310, L500.2500, L501.4021 #### [facility] [address] [place], [address] IG% 0.600 Normal 0.0-0.9 [facility] Comment on above: Result Comment: IG% - Immature Granulocytes (promyelocytes, myelocytes and metamyelocytes) > 1% indicates that a LEFT SHIFT is Present. Performed By: #### L 300.3900, L100.0100, L300.4310, L500.2500, L501.4021 #### [facility] [address] [place], [address] Lymphocytes/100 WBC (Bld) 26.2 % Normal 19-41 [facility] Comment on above: Performed By: #### L 300.3900, L100.0100, L300.4310, L500.2500, L501.4021 #### [facility] [address] [place], [address] MCH (RBC) [Entitic mass] 29.6 pg Normal 27.0-32.0 [facility] Comment on above: Performed By: #### L 300.3900, L100.0100, L300.4310, L500.2500, L501.4021 #### [facility] [address] [place], [address] MCHC (RBC) [Mass/Vol] 34.8 g/dL Normal 32-36 [facility] Comment on above: Performed By: #### L 300.3900, L100.0100, L300.4310, L500.2500, L501.4021 #### [facility] [address] [place], [address] MCV (RBC) [Entitic vol] 85.1 fL Normal 80-94 [facility] Comment on above: Performed By: #### L 300.3900, L100.0100, L300.4310, L500.2500, L501.4021 #### [facility] [address] [place], [address] Monocytes/100 WBC (Bld) 11.5 % High 0-10 [facility] Comment on above: Performed By: #### L 300.3900, L100.0100, L300.4310, L500.2500, L501.4021 #### [facility] [address] [place], [address] Neutrophils/100 WBC (Bld) 58.4 % Normal 47-70 [facility] Comment on above: Performed By: #### L 300.3900, L100.0100, L300.4310, L500.2500, L501.4021 #### [facility] [address] [place], [address] Nucleated RBC (Bld) [#/Vol] 0 10*3/uL Normal 0-5 [facility] Comment on above: Performed By: #### L 300.3900, L100.0100, L300.4310, L500.2500, L501.4021 #### [facility] [address] [place], [address] Platelet mean volume (Bld) [Entitic vol] 10.3 fL Normal 6.2-12.0 [facility] Comment on above: Performed By: #### L 300.3900, L100.0100, L300.4310, L500.2500, L501.4021 #### [facility] [address] [place], [address] Platelets (Bld) [#/Vol] 144 10*3/uL Low 150-450 [facility] Comment on above: Performed By: #### L 300.3900, L100.0100, L300.4310, L500.2500, L501.4021 #### [facility] [address] [place], [address] RBC (Bld) [#/Vol] 5.10 10*6/uL Normal 4.6-6.2 [facility] Comment on above: Performed By: #### L 300.3900, L100.0100, L300.4310, L500.2500, L501.4021 #### [facility] [address] [place], [address] RDW SD 38.8 fl Normal 35.1-43.9 [facility] Comment on above: Performed By: #### L 300.3900, L100.0100, L300.4310, L500.2500, L501.4021 #### [facility] [address] [place], [address] WBC (Bld) [#/Vol] 6.3 10*3/uL Normal 4.4-11.0 [facility] Comment on above: Performed By: #### L 300.3900, L100.0100, L300.4310, L500.2500, L501.4021 #### [facility] [address] [place], [address] CTA Chst, Abd, Pel W and/or WOon 09-17-2024 CTA Chst, Abd, Pel W and/or WO [facility] Imaging Services [address] [place] [address] CTA Chst, Abd, Pel W and/or WO MR#: [id number] Acct: [id number] Name: KRISHAN BURNHAM Rep #: [id number] : 1965 M 59 From: Paulie Gale MD PCP: [facility] Status: REG ER Study: CTA Chst, Abd, Pel W and/or WO Date of Exam: 0 09/17/24 Exam# [id number] Ordering Dr: Bib Beavers DO PROCEDURE: CTA CHST, ABD, PEL W AND/OR WO 09/17/2024 REASON FOR EXAM: PAIN TECHNIQUE: CTA CHST, ABD, PEL W AND/OR WO coronal and Sagittal reconstruction series were provided. One or more dose reduction techniques were used (e.g., Automated exposure control, adjustment of the mA and/or kV according to patient size, use of iterative reconstruction technique. CONTRAST: 100 cc Isovue 370 RADIATION DOSE SUMMARY: DLP: 1405 mGycm COMPARISON: None FINDINGS: CHEST: Lines and tubes: Surgical clips are noted in the right upper quadrant Mediastinum: There is no pathologic adenopathy by size criteria. Heart: Unremarkable Thoracic Aorta: The ascending aorta measures 3.3 cm. Distal arch = 3.0 cm, descending aorta = 2.5 cm. There is no aneurysm or dissection. The origin of the great vessels are normal in appearance. Minimal atherosclerotic calcifications are noted. Lungs and Airways: There is minimal atelectasis or scar at the right and left lung base. There is a 0.7 cm solid pulmonary nodule in the right lung base, image 98/286. Pleura: There is no pneumothorax or effusion Bones: There is no acute bony abnormality ABDOMEN AND PELVIS: Liver: Unremarkable Gallbladder: Surgically absent Spleen: Unremarkable Pancreas: Unremarkable Adrenals: Unremarkable Kidneys: Unremarkable Bladder: Unremarkable Reproductive Organs: Unremarkable Bowel: Surgical clips are noted in the rectosigmoid junction. Gas and stool is noted in the colon. The small bowel loops are nondistended. The appendix is not demonstrated. Vasculature: Scattered atherosclerotic calcifications are noted. The celiac and superior mesenteric artery origins are widely patent. The right and left renal artery origins are widely patent and appears single. The inferior mesenteric artery origin is patent. The iliac bifurcation is normal. The internal and external iliacs are widely patent to the level of the common femoral. Peritoneum / Retroperitoneum: There is no free air or free fluid. Bones: There is no acute bony abnormality. CT/CTA Chst, Abd, Pel W and/or WO IMPRESSION: There is a 0.7 cm solid pulmonary nodule in the right lung base, image 98/286. this is unchanged compared to the May 26, [address] Continued follow-up is recommended. CTA of the chest abdomen and pelvis is within normal limits. Reading Location: [facility] CC: Dr. Bib Beavers DO; [facility] Office Specialist: Signed Normal [facility] Carbon dioxide, total [Moles /volume] in Central venous bloodOrdered By: Bib Beavers on 09-17-2024 CO2 [Moles/Vol] 21.5 mmol/L 21.0-32.0 [facility] Chloride assayOrdered By: Andrei Beavers on 09-17-2024 Chloride [Moles/Vol] 101 mmol/L 98-108 [facility] Emergency Department Summary on 09-17-2024 Emergency Department Summary [facility] Medical Records Department [address] [place] [address] Emergency Department Summary 09/17/24 MR#: [id number] Acct: [id number] Name: KRISHAN BURNHAM Rep #: [id number] : 1965 59 From: Bib Lopez PCP: [facility] Status:DEP ER Location: ED HPI History of Present Illness Chief Complaint: Chest Pain Informant: patient Narrative Narrative: Patient reports yesterday 3 PM at rest transient sharp pain left lower abdomen. Half hour later no pain in the middle of his chest sharp in nature. He states pain went down to his abdomen feels it was pulsating per patient. Denies history of known aneurysms. Diabetes, hypertension history. Remote smoker. He states he had a heart cath a couple years ago here no intervention. Reports pain is 8 out of 10. No recent travel surgery or immobilizations. No history of PE or DVT. Father 19 stents in the past first 1 at age of 55. Grandfather with coronary disease. Prior Similar Symptoms: No CVD Risk Factors: Positive for Hypertension, Diabetes and Family History 1' Hypercholesterolemia or Smoking PE Risk Factors: Negative for Recent Travel/Surgery, Recent Immobilization or Prior DVT or PE [facility] Medical History BMI 34.0-34.9,adult Left ventricular hypertrophy Chronic prescription benzodiazepine use Type 2 diabetes mellitus Testosterone deficiency in male Diverticulosis Sprain and strain of left hand COVID-19 Alternating constipation and diarrhea Wrist pain De Quervain's tenosynovitis, right Cough Cellulitis of right wrist Acute stroke due to ischemia Lupus Wears glasses History of hiatal hernia CPAP (continuous positive airway pressure) dependence Acute cerebrovascular accident (CVA) due to ischemia COVID-19 vaccine series completed Former smoker Hypertension Hyperlipidemia HTN (hypertension) Parkinsons disease GERD (gastroesophageal reflux disease) Constipation Sleep apnea Depression with anxiety Abdominal pain Diverticulitis Home Medications ???Medication ???Instructions ???Recorded ???Last Taken ???Type melatonin 3 mg tablet 9 mg PO QHS SLEEP 05/12/1903/15/ 4 History trazodone 100 mg tablet 200 mg PO QHS SLEEP 05/12/1907/31 History famotidine 20 mg tablet 20 mg PO BID GERD 02/17/20 4 History levodopa 42 mg capsule with 84 mg inhalation 0900,1300,1700 08/02/23 History inhalation device (Inbrija) PARKINSONS propranolol 10 mg tablet 10 mg PO BID HYPERTENSION 02/16/21 08/02/23 History carbidopa ER 36.25 mg-levodopa 145 4 cap PO 4X/DAY Parkinsons 11/3008/02/23 History mg capsule,extended release (Rytary) cholecalciferol (vitamin D3) 50 50 mcg PO DAILY SUPPLEMENT 2 08/02/23 History mcg (2,000 unit) tablet diltiazem HCl 60 mg tablet 60 mg PO BID HYPERTENSION/AGINA 03/16/23 History empagliflozin 25 mg tablet 12.5 mg PO DAILY DIABETES 11/30/21 08/02/23 History (Jardiance) omega-3 fatty acids 1,000 mg PO DAILY SUPPLEMENT 11/3003/16/23 History prazosin 5 mg capsule 10 mg PO QHS HYPERTENSION 11/30/21 08/02/23 History duloxetine 60 mg capsule,delayed 120 mg PO DAILY DEPRESSION 3 08/02/23 History release clopidogrel 75 mg tablet 75 mg PO DAILY BLOOD THINNER #21 1 03/14/22 03/16/23 Rx tabs clonazepam 0.5 mg tablet 0.5 mg PO QHS PANIC ATTACKS 03/14/23 History diclofenac sodium 1 % topical gel 4 g topical BID PRN OSTEOARTHRITI S 03/16/23 Unknown History gabapentin 300 mg capsule 300 mg PO QHS RESTLESS LEG SYNDROM E 03/16/23 03/15/23 History sildenafil 100 mg tablet 100 mg PO DAILY PRN sexual activit y 03/16/23 Unknown History icosapent ethyl 1 gram capsule 2 g PO BID Cholesterol 07/30/23 History Allergy/AdvReac Type Severity Reaction Status Date / Time No Known Allergies Allergy Verified 07/30/23 17:20 Family History Mother Heart disease Hypertension High cholesterol Cancer skin cancer Father Heart disease High cholesterol Hypertension CVA (cerebral vascular accident) Surgical History S/P arthroscopic surgery of left knee History of colectomy ( 02/2020) History of laparoscopic cholecystectomy History of appendectomy Social History household members: spouse number of children: 5 current occupational status: unemployed Smoking Status: Former smoker how long ago did patient quit smoking: Quit 15 years prior, smoked socially only. alcohol intake: never substance use type: does not use ROS ROS ED Constitutional Constitutional ED: Denies chills, fever(s) or sweats ENT ENT ED: Denies sore throat Cardiovas (more content not included)... Normal [facility] Eosinophil percentageOrdered By: Bib Beavers on 09-17-2024 Eosinophils/100 WBC (Bld) 2.7 % 0-5 [facility] Erythrocyte distribution wid th ratioOrdered By: Bib Beavers on 09-17-2024 Erythrocyte distribution width (RBC) [Ratio] 12.7 % 11.6-14.6 [facility] Erythrocyte distribution wid th standard deviationOrdered By: Bib Beavers on 09-17-2024 Erythrocyte distribution width (RBC) [Ratio] 38.8 fl 35.1-43.9 [facility] Glomerular filtration rate ( GFR) estimation/1.73 sq m using serum, plasma, or whole bOrdered By: Bib Beavers on 09-17-2024 GFR/1.73 sq M.predicted among non-blacks MDRD (S/P/Bld) [Vol rate/Area] 82 mL/min/{1.73_m2} >60 [facility] Comment on above: mL/min/1.73m2 CKD-EP I Creatinine Equation (2020) Hematocrit Auto (Bld) [Volum e fraction]Ordered By: Bib Beavers on 09-17-2024 Hematocrit (Bld) [Volume fraction] 43.4 % 40-54 [facility] Hemoglobin measurementOrdere d By: Bib Beavers on 09-17-2024 Hemoglobin (Bld) [Mass/Vol] 15.1 g/dL 13.0-16.5 [facility] Immature granulocytes/100 WB C Auto (Bld)Ordered By: Bib Beavers on 09-17-2024 Immature granulocytes/100 WBC (Bld) 0.600 % 0.0-0.9 [facility] Comment on above: IG% - Immature Granu locytes (promyelocytes, myelocytes and metamyelocytes) > 1% indicates that a LEFT SHIFT is Present. International normalized rat io (INR) calculationOrdered By: Bib Beavers on 09-17-2024 INR Coag (Bld) [Relative time] 0.9 {INR} [facility] L501.4021on 09-17-2024 Trop T High Sen 11 ng/L Normal <=22 [facility] Comment on above: Performed By: #### L 300.3900, L100.0100, L300.4310, L500.2500, L501.4021 #### [facility] [address] [place], [place], [id number] Laboratory - Chemistry and C hemistry - challengeOrdered By: Bib Beavers on 09-17-2024 AST [Catalytic activity/Vol] 22 U/L <38 [facility] Comment on above: Hemolysis present, R esults could be affected. Lipaseon 09-17-2024 Lipase [Catalytic activity/Vol] 25 U/L Normal 13-75 [facility] Comment on above: Result Comment: Plea note: LIPASE revised reference range effective 22. New Lipase methodology. Expected to produce lower values than the previous assay method. NEW Reference Range: 13 - 75 U/L Performed By: #### L 500.3400, L501.2450 ####[facility] [address] [place], [address] Lipase measurementOrdered By : Bib Beavers on 09-17-2024 Lipase [Catalytic activity/Vol] 25 U/L 13-75 [facility] Comment on above: Please note:LIPASE r evised reference range effective 22. New Lipase methodology. Expected to produce lower values than the previous assay method. NEW Reference Range: 13 - 75 U/L Liver Profileon 09-17-2024 Albumin [Mass/Vol] 4.6 g/dL Normal 3.5-5.0 [facility] Comment on above: Performed By: #### L 500.3400, L501.2450 ####[facility] [address] [place], [address] ALK PHOS 81 U/L Normal 40-129 [facility] Comment on above: Performed By: #### L 500.3400, L5.0 ####[facility] [address] [place], [address] ALT [Catalytic activity/Vol] 28 U/L Normal <=46 [facility] Comment on above: Performed By: #### L 500.3400, L5 ####[facility] [address] [place], [address] AST [Catalytic activity/Vol] 22 U/L Normal <=37 [facility] Comment on above: Result Comment: Hemo lysis present, Results??could be affected. ?? Performed By: #### L 500.3400, ####[facility] [address] [place], [address] Bilirubin [Mass/Vol] 0.41 mg/dL Normal 0.00-1.30 [facility] Comment on above: Performed By: #### L 500.3400, L5 ####[facility] [address] [place], [address] Bilirubin.direct [Mass/Vol] 0.13 mg/dL Normal 0.00-0.30 [facility] Comment on above: Result Comment: Hemo lysis present, Results??could be affected. ?? Performed By: #### L 500.3400, L501.2450 ####[facility] [address] [place], [address] Globulin (S) [Mass/Vol] 2.9 g/dL Normal 2.2-4.2 [facility] Comment on above: Performed By: #### L 500.3400, L5.2450 ####[facility] [address] [place], [address] T PROT 7.4 g/dL Normal 5.9-8.4 [facility] Comment on above: Performed By: #### L 500.3400, L501.2450 ####[facility] [address] [place], [address] MCV (mean corpuscular volume ) determinationOrdered By: Bib Beavers on 09-17-2024 MCV (RBC) [Entitic vol] 85.1 fL 80-94 [facility] Mean corpuscular hemoglobin (MCH) determinationOrdered By: Bib Beavers on 09-17-2024 MCH (RBC) [Entitic mass] 29.6 pg 27.0-32.0 [facility] Mean corpuscular hemoglobin concentration (MCHC) determinationOrdered By: Bib Beavers on 09-17-2024 MCHC (RBC) [Mass/Vol] 34.8 g/dL 32-36 [facility] Mean platelet volume determi nationOrdered By: Bib Beavers on 09-17-2024 Platelet mean volume (Bld) [Entitic vol] 10.3 fL 6.2-12.0 [facility] Monocyte percentageOrdered B y: Bib Beavers on 09-17-2024 Monocytes/100 WBC (Bld) 11.5 % High 0-10 [facility] Neutrophil percentageOrdered By: Bib Beavers on 09-17-2024 Neutrophils/100 WBC (Bld) 58.4 % 47-70 [facility] Nucleated red blood cell per centageOrdered By: Bib Beavers on 09-17-2024 Nucleated RBC/100 WBC (Bld) [Ratio] 0 % 0-5 [facility] Partial Thromboplast Timeon 09-17-2024 aPTT Coag (Bld) [Time] 24.1 s Normal 24.1-36.2 [facility] Comment on above: Performed By: #### L 300.3900, L100.0100, L300.4310, L500.2500, L501.4021 #### [facility] [address] [place], [address] Platelet countOrdered By: Andrei keen Landry on 09-17-2024 Platelets (Bld) [#/Vol] 144 10*3/uL Low 150-450 [facility] Potassium measurement (mass/ volume)Ordered By: Bib Beavers on 09-17-2024 Potassium (Unsp spec) [Mass/Vol] 3.9 mmol/L 3.3-5.1 [facility] Comment on above: Hemolysis present, R esults could be affected. Prothrombin Time w/INRon INR Coag (PPP) [Relative time] 0.9 {INR} Normal [facility] Comment on above: Performed By: #### L 300.3900, L100.0100, L300.4310, L500.2500, L501.4021 #### [facility] [address] [place], [place], [id number] PT Coag (PPP) [Time] 12.5 s Normal 11.7-14.9 [facility] Comment on above: Performed By: #### L 300.3900, L100.0100, L300.4310, L500.2500, L501.4021 #### [facility] [address] [place], [place], [id number] Prothrombin timeOrdered By: Bib Beavers on 09-17-2024 PT Coag (PPP) [Time] 12.5 s 11.7-14.9 [facility] RBC Auto (Bld) [#/Vol]Ordere d By: Bib Beavers on 09-17-2024 RBC (Bld) [#/Vol] 5.10 10*6/uL 4.6-6.2 [facility] Serum creatinine measurement (mass/volume)Ordered By: Bib Beavers on 09-17-2024 Creatinine [Mass/Vol] 1.05 mg/dL 0.70-1.20 [facility] Serum globulin measurementOr dered By: Bib Beavers on 09-17-2024 Globulin (S) [Mass/Vol] 2.9 g/dL 2.2-4.2 [facility] Serum glucose measurement (m ass/volume)Ordered By: Bib Beavers on 09-17-2024 Glucose [Mass/Vol] 205 mg/dL High 70-99 [facility] Serum or plasma alanine layton otransferase (ALT) measurementOrdered By: Bib Beavers on 09-17-2024 ALT [Catalytic activity/Vol] 28 U/L <47 [facility] Serum or plasma albumin noy urement (mass/volume)Ordered By: Bib Beavers on 09-17-2024 Albumin [Mass/Vol] 4.6 g/dL 3.5-5.0 [facility] Serum or plasma alkaline usha sphatase measurementOrdered By: Bib Beavers on 09-17-2024 ALP [Catalytic activity/Vol] 81 U/L 40-129 [facility] Serum or plasma calcium noy urement (mass/volume)Ordered By: Bib Beavers on 09-17-2024 Calcium [Mass/Vol] 9.2 mg/dL 7.6-11.0 [facility] Serum or plasma urea nitroge n measurement (mass/volume)Ordered By: Bib Beavers on 09-17-2024 Urea nitrogen [Mass/Vol] 15 mg/dL 4-19 [facility] Sodium levelOrdered By: Bib Beavers on 09-17-2024 Sodium [Moles/Vol] 138 mmol/L 133-145 [facility] Total proteinOrdered By: Rito Beavers on 09-17-2024 Protein [Mass/Vol] 7.4 g/dL 5.9-8.4 [facility] Troponin T HS 2 HRon 025 Trop T High Sen 11 ng/L Normal <=22 [facility] Comment on above: Performed By: #### L 499.0042 #### [facility] [address] [place], [place], [address] Troponin T HS 4 HRon 025 Trop T High Sen Normal <=22 [facility] Comment on above: Result Comment: Canc elled via OM: Order cancelled - Patient discharged Performed By: #### L 499.0043 ####[facility] [address] [place], [place], [address] Troponin T.cardiac [Mass/vol ume] in Serum or Plasma by High sensitivity methodOrdered By: Bib Beavers on 09-17-2024 Troponin T.cardiac High sensitivity method [Mass/Vol] 11 ng/L <22 [facility] Troponin T.cardiac High sensitivity method [Mass/Vol] 11 ng/L <22 [facility] White blood cell (WBC) count Ordered By: Bib Beavers on 09-17-2024 WBC (Bld) [#/Vol] 6.3 10*3/uL 4.4-11.0 [facility] .Auto Diffon 06-29-2024 Basophil, Absolute 0.0 10 3/mcL Normal 0.0-0.3 [facility] Comment on above: Performed By: #### B NELLIE WONG, GFR, ADIFF, TROPHS, CBC, ANEU, MG #### [address] [address] Basophils/100 WBC (Bld) 0.6 % Normal 0.0-2.5 [facility] Comment on above: Performed By: #### B NELLIE WONG, GFR, ADIFF, TROPHS, CBC, ANEU, MG #### [address] [address] Eosinophil, Absolute 0.1 10 3/mcL Normal 0.0-0.7 [facility] Comment on above: Performed By: #### B NELLIE WONG, GFR, ADIFF, TROPHS, CBC, ANEU, MG #### [address] [address] Eosinophils/100 WBC (Bld) 2.7 % Normal 0.0-6.0 [facility] Comment on above: Performed By: #### B NELLIE WONG, GFR, ADIFF, TROPHS, CBC, ANEU, MG #### [address] [address] Lymphocyte, Absolute 1.6 10 3/mcL Normal 0.9-4.3 [facility] Comment on above: Performed By: #### B NELLIE WONG, GFR, ADIFF, TROPHS, CBC, ANEU, MG #### [address] [address] Lymphocytes/100 WBC (Bld) 29.2 % Normal 20.0-40.0 [facility] Comment on above: Performed By: #### B NELLIE WONG, GFR, ADIFF, TROPHS, CBC, ANEU, MG #### [address] [address] Monocyte, Absolute 0.5 10 3/mcL Normal 0.1-1.4 [facility] Comment on above: Performed By: #### B NELLIE WONG, GFR, ADIFF, TROPHS, CBC, ANEU, MG #### [address] [address] Monocytes/100 WBC (Bld) 9.5 % Normal 2.0-13.0 [facility] Comment on above: Performed By: #### B NELLIE WONG, GFR, ADIFF, TROPHS, CBC, ANEU, MG #### [address] [address] Neutrophils/100 WBC (Bld) 58.0 % Normal 50.0-75.0 [facility] Comment on above: Performed By: #### B NELLIE WONG, GFR, ADIFF, TROPHS, CBC, ANEU, MG #### [address] [address] .GFRon 06-29-2024 Estimated Glomerular Filtration Rate 101 ml/min/1.73sqm Normal [facility] Comment on above: Result Comment: Stages of Chronic Kidney Disease (CKD) Stage Description eGFR(ml/min/1.73 sq.m.) CKD 1 Normal kidney function or >=90 normal kindney function with possible kidney damage (ex. Proteinuria) CKD 2 Kidney damage with mild loss 60-89 of kidney function CKD 3a Mild to moderate loss of kidney 45-59 function CKD 3b Moderate to severe loss of 30-44 of kindey function CKD 4 Severe loss of kidney function 15-29 CKD 5 Kidney failure <15 Note: (go live 2024) the eGFR calculation was updated to the 2020 CKD-EPI creatinine equation without a race factor to calculate the eGFR results. Performed By: #### B NELLIE WONG, GFR, ADIFF, TROPHS, CBC, ANEU, MG #### [address] [address] .MDWon 06-29-2024 Monocyte Distribution Width 17.20 Normal 0.00-20.00 [facility] Comment on above: Result Comment: For ED adult patients suspected of sepsis, MDW<=20.0 does not rule out sepsis or risk of sepsis Performed By: #### B NELLIE WONG, GFR, ADIFF, TROPHS, CBC, ANEU, MG #### [address] [address] .NEUABSon 06-29-2024 Neutrophil, Absolute 3.2 10 3/mcL Normal 2.3-8.1 [facility] Comment on above: Performed By: #### B NELLIE WONG, GFR, ADIFF, TROPHS, CBC, ANEU, MG #### [address] [address] BMPon 06-29-2024 BUN/Creatinine Ratio 21 ratio Normal 7-27 [facility] Comment on above: Performed By: #### B NELLIE WONG, GFR, ADIFF, TROPHS, CBC, ANEU, MG #### [address] [address] Calcium [Mass/Vol] 8.9 mg/dL Normal 8.4-10.2 [facility] Comment on above: Performed By: #### B NELLIE WONG, GFR, ADIFF, TROPHS, CBC, ANEU, MG #### [address] [address] Chloride [Moles/Vol] 106 mmol/L Normal 98-107 [facility] Comment on above: Performed By: #### B NELLIE WONG, GFR, ADIFF, TROPHS, CBC, ANEU, MG #### [address] [address] CO2 [Moles/Vol] 29 mmol/L Normal 22-29 [facility] Comment on above: Performed By: #### B NELLIE WONG, GFR, ADIFF, TROPHS, CBC, ANEU, MG #### [address] [address] Creatinine [Mass/Vol] 0.84 mg/dL Normal 0.67-1.17 [facility] Comment on above: Performed By: #### B NELLIE WONG, GFR, ADIFF, TROPHS, CBC, ANEU, MG #### [address] [address] Electrolyte Balance 5.0 mEq/L Normal 4.0-15.0 [facility] Comment on above: Performed By: #### B NELLIE WONG, GFR, ADIFF, TROPHS, CBC, ANEU, MG #### [address] [address] Glucose [Mass/Vol] 297 mg/dL High 70-105 [facility] Comment on above: Performed By: #### B NELLIE WONG, GFR, ADIFF, TROPHS, CBC, ANEU, MG #### [address] [address] Potassium [Moles/Vol] 3.7 mmol/L Normal 3.5-5.1 [facility] Comment on above: Performed By: #### B NELLIE WONG, GFR, ADIFF, TROPHS, CBC, ANEU, MG #### [address] [address] Sodium [Moles/Vol] 140 mmol/L Normal 136-145 [facility] Comment on above: Performed By: #### B NELLIE WONG, GFR, ADIFF, TROPHS, CBC, ANEU, MG #### [address] [address] Urea nitrogen [Mass/Vol] 18 mg/dL Normal 7-18 [facility] Comment on above: Performed By: #### B NELLIE WONG, GFR, ADIFF, TROPHS, CBC, ANEU, MG #### [address] [address] CBCon 06-29-2024 Erythrocyte distribution width (RBC) [Ratio] 13.3 % Normal 11.5-15.5 [facility] Comment on above: Performed By: #### B NELLIE WONG, GFR, ADIFF, TROPHS, CBC, ANEU, MG #### [place] [address] Hematocrit (Bld) [Volume fraction] 40.5 % Normal 40.0-52.0 [facility] Comment on above: Performed By: #### B NELLIE WONG, GFR, ADIFF, TROPHS, CBC, ANEU, MG #### [place] [address] Hgb 14.5 G/dL Normal 13.0-17.5 [facility] Comment on above: Performed By: #### B NELLIE WONG, GFR, ADIFF, TROPHS, CBC, ANEU, MG #### [place] [address] MCH (RBC) [Entitic mass] 30.2 pg Normal 27.0-33.0 [facility] Comment on above: Performed By: #### B NELLIE WONG, GFR, ADIFF, TROPHS, CBC, ANEU, MG #### [place] [address] MCHC 35.9 G/dL Normal 32.0-36.0 [facility] Comment on above: Performed By: #### B NELLIE WONG, GFR, ADIFF, TROPHS, CBC, ANEU, MG #### [place] [address] MCV (RBC) [Entitic vol] 84.2 fL Normal 81.0-100.0 [facility] Comment on above: Performed By: #### B NELLIE WONG, GFR, ADIFF, TROPHS, CBC, ANEU, MG #### [place] [address] Platelet 142 10 3/mcL Low 150-450 [facility] Comment on above: Performed By: #### B NELLIE WONG, GFR, ADIFF, TROPHS, CBC, ANEU, MG #### [address] [address] Platelet mean volume (Bld) [Entitic vol] 7.7 fL Normal 6.4-10.5 [facility] Comment on above: Performed By: #### B MP, MDW, GFR, ADIFF, TROPHS, CBC, ANEU, MG #### [place] [address] [place], [place] [address] RBC 4.81 10 6/mcL Normal 4.50-6.00 [facility] Comment on above: Performed By: #### B MP, MDW, GFR, ADIFF, TROPHS, CBC, ANEU, MG #### [place] [address] [place], [place] [address] WBC 5.6 10 3/mcL Normal 4.5-10.8 [facility] Comment on above: Performed By: #### B MP, MDW, GFR, ADIFF, TROPHS, CBC, ANEU, MG #### [address] [address] [address] HEAD OR BRAIN W/O CONTRAS Ton 06-29-2024 CT HEAD OR BRAIN W/O CONTRAST ORIGINAL EXAMINATION: CT OF THE HEAD WITHOUT CONTRAST 06/29/2024 10:42 pm TECHNIQUE: CT of the head was performed without the administration of intravenous contrast. Automated exposure control, iterative reconstruction, and/or weight based adjustment of the mA/kV was utilized to reduce the radiation dose to as low as reasonably achievable. COMPARISON: None. HISTORY: ORDERING SYSTEM PROVIDED HISTORY: Reason for Exam: weakness confusion. pt says he has a hx of stroke but no head symptoms currently confusion FINDINGS: BRAIN/VENTRICLES: There is no acute intracranial hemorrhage, mass effect or midline shift. No abnormal extra-axial fluid collection. The olguin-white differentiation is maintained without evidence of an acute infarct. There is no evidence of hydrocephalus. Atherosclerosis of the bilateral cavernous carotid segments. ORBITS: The visualized portion of the orbits demonstrate no acute abnormality. SINUSES: Partially visualized complete opacification of the bilateral maxillary sinuses. The remaining visualized paranasal sinuses and mastoid air cells demonstrate no acute abnormality. SOFT TISSUES/SKULL: No acute abnormality of the visualized skull or soft tissues. IMPRESSION: No acute intracranial abnormality. Complete opacification of the partially visualized maxillary sinuses compatible with sinusitis in the appropriate clinical context. I have personally reviewed the images of this examination and agree with the resident's findings and interpretation. Interpreted by: Tay Khoury Preliminary Report By: Eva Gutierrez Electronically signed By Tay Khoury Dictated Date: 06/29/2024 10:49:34 PM Prelim Date: 06/29/2024 10:52:30 PM Sign Date: 06/29/2024 10:57:23 PM Ordering Provider: CARMELA CORRALES Normal [facility] LABORATORYOrdered By: Dale Moyer on 06-29-2024 Glucose [Mass/Vol] 166 mg/dL High 70 - 110 mg/dL [facility] Work Phone: Glucose [Mass/Vol] 266 mg/dL High 70 - 110 mg/dL [facility] Work Phone: LABORATORYOrdered By: Janet Velazquez on 06-29-2024 Appearance (U) Clear (06/29/24 10:07 PM) Normal Clear AO Auto Urine SS Bilirubin Ql (U) Negative (06/29/24 10:07 PM) Normal Negative AO Auto Urine SS Color (U) Yellow (06/29/24 10:07 PM) Normal AO Auto Urine SS Glucose Test strip (U) [Mass/Vol] >=1000 mg/dL Invalid Interpretation Code Negative AO Auto Urine SS Hemoglobin Auto test strip (U) [Mass/Vol] Negative (06/29/24 10:07 PM) Normal Negative AO Auto Urine SS Ketones Ql (U) Negative Normal Negative AO Auto Urine SS UA Leuk Est Negative (06/29/24 10:07 PM) Normal Negative AO Auto Urine SS UA Nitrite Negative (06/29/24 10:07 PM) Normal Negative AO Auto Urine SS UA pH 6.5 (06/29/24 10:07 PM) Normal 5.0 - 8.0 AO Auto Urine SS UA Protein Negative Normal Negative AO Auto Urine SS UA Spec Grav 1.015 (06/29/24 10:07 PM) Normal 1.015-1.02 5 AO Auto Urine SS UA Specimen Type Not Given (06/29/24 10:07 PM) Normal AO Auto Urine SS UA Urobilinogen 0.2 E.U./dL Normal 0.2-1.0 AO Auto Urine SS LABORATORYOrdered By: SYSTEM SYSTEM on 06-29-2024 Basophils (Bld) [#/Vol] 0.0 103/mcL Normal 0.0 - 0.3 10^3/mcL AO Workflow SS Basophils/100 WBC (Bld) 0.6 % Normal 0.0 - 2.5 % AO Workflow SS Calcium [Mass/Vol] 8.9 mg/dL Normal 8.4 - 10. 2 mg/dL AO ADM SS Chloride [Moles/Vol] 106 mmol/L Normal 98 - 10 7 mmol/L AO ADM SS CO2 [Moles/Vol] 29 mmol/L Normal 22 - 29 mmol/L AO ADM SS Creatinine [Mass/Vol] 0.84 mg/dL Normal 0.67 - 1.17 mg/dL AO ADM SS Electrolyte Balance 5.0 mEq/L Normal 4.0 - 15 .0 mEq/L AO ADM SS Eosinophil, Absolute 0.1 103/mcL Normal 0.0 - 0 .7 10^3/mcL AO Workflow SS Eosinophils/100 WBC (Bld) 2.7 % Normal 0.0 - 6.0 % AO Workflow SS Erythrocyte distribution width (RBC) [Ratio] 13.3 % Normal 11.5 - 15.5 % AO Workflow SS Estimated Glomerular Filtration Rate 101 ml/min/1.73sqm Invalid Interpretation Code AO Chemistry S Comment on above: Interpretive Data: Stages of Chronic Kidney Disease (CKD) Stage Description eGFR(ml/min/1.73 sq.m.) CKD 1 Normal kidney function or >=90 normal kindney function with possible kidney damage (ex. Proteinuria) CKD 2 Kidney damage with mild loss 60-89 of kidney function CKD 3a Mild to moderate loss of kidney 45-59 function CKD 3b Moderate to severe loss of 30-44 of kindey function CKD 4 Severe loss of kidney function 15-29 CKD 5 Kidney failure <15 Note: (go live 2024) the eGFR calculation was updated to the 2020 CKD-EPI creatinine equation without a race factor to calculate the eGFR results. Glucose [Mass/Vol] 297 mg/dL High 70 - 105 mg/dL AO ADM SS Hematocrit (Bld) [Volume fraction] 40.5 % Normal 40.0 - 52.0 % AO Workflow SS Hemoglobin (Bld) [Mass/Vol] 14.5 G/dL Normal 13.0 - 17.5 G/dL AO Workflow SS Lymphocytes (Bld) [#/Vol] 1.6 103/mcL Normal 0.9 - 4.3 10^3/mcL AO Workflow SS Lymphocytes/100 WBC (Bld) 29.2 % Normal 20.0 - 40.0 % AO Workflow SS Magnesium [Mass/Vol] 1.9 mg/dL Normal 1.8 - 2 .4 mg/dL AO ADM SS MCH (RBC) [Entitic mass] 30.2 pg Normal 27. 0 - 33.0 pg AO Workflow SS MCHC 35.9 G/dL Normal 32.0 - 36.0 G/dL AO Workflow SS MCV (RBC) [Entitic vol] 84.2 fL Normal 81.0 - 100.0 fL AO Workflow SS Monocyte distribution width Auto (Bld) [Entitic vol] 17.20 1 Normal 0.00 - 20.00 AO Workflow SS Comment on above: Result Comment: For ED adult patients suspected of sepsis, MDW<=20.0 does not rule out sepsis or risk of sepsis Monocytes (Bld) [#/Vol] 0.5 103/mcL Normal 0.1 - 1.4 10^3/mcL AO Workflow SS Monocytes/100 WBC (Bld) 9.5 % Normal 2.0 - 13.0 % AO Workflow SS Neutrophils (Bld) [#/Vol] 3.2 103/mcL Normal 2.3 - 8.1 10^3/mcL AO Workflow SS Neutrophils/100 WBC (Bld) 58.0 % Normal 50.0 - 75.0 % AO Workflow SS Platelet mean volume (Bld) [Entitic vol] 7.7 fL Normal 6.4 - 10.5 fL AO Workflow SS Platelets (Bld) [#/Vol] 142 103/mcL Low 150 - 450 10^3/mcL AO Workflow SS Potassium [Moles/Vol] 3.7 mmol/L Normal 3.5 - 5.1 mmol/L AO ADM SS RBC (Bld) [#/Vol] 4.81 106/mcL Normal 4.50 - 6.00 10^6/mcL AO Workflow SS Sodium [Moles/Vol] 140 mmol/L Normal 136 - 145 mmol/L AO ADM SS Troponin I.cardiac DL <= 0.01 ng/mL [Mass/Vol] 11 ng/L Normal 0 - 76 ng/L AO ADM SS Comment on above: Interpretive Data: H igh Sensitive Troponin I Reference Ranges: Female: 0-51 ng/L Male: 0-76 ng/L Testing performed on Dimension EXL using a homogeneous sandwich chemiluminescent immunoassay based on [employer] technology. Urea nitrogen [Mass/Vol] 18 mg/dL Normal 7 - 18 mg/dL AO ADM SS Urea nitrogen/Creatinine [Mass ratio] 21 ratio Normal 7 - 27 ratio AO ADM SS WBC (Bld) [#/Vol] 5.6 103/mcL Normal 4.5 - 10.8 10^3/mcL AO Workflow SS MGon 06-29-2024 Magnesium [Mass/Vol] 1.9 mg/dL Normal 1.8-2.4 [facility] Comment on above: Performed By: #### B NELLIE WONG, GFR, ADIFF, TROPHS, CBC, ANEU, MG #### [address] [address] TROPHSon 06-29-2024 High Sensitivity Troponin I 11 ng/L Normal 0-76 [facility] Comment on above: Result Comment: High Sensitive Troponin I Reference Ranges: Female: 0-51 ng/L Male: 0-76 ng/L Testing performed on Dimension EX using a homogeneous sandwich chemiluminescent immunoassay based on [employer] technology. Performed By: #### B NELLIE WONG, GFR, ADIFF, TROPHS, CBC, ANEU, MG #### [address] [address] UAon 06-29-2024 Color (U) Yellow Normal [facility] Comment on above: Performed By: #### U A #### [address] [address] Glucose (U) [Mass/Vol] mg/dL Abnormal Negative [facility] Comment on above: Performed By: #### U A #### [address] [address] Ketones Ql (U) Negative Normal Negative [facility] Comment on above: Performed By: #### U A #### [address] [address] UA Appear Clear Normal Clear [facility] Comment on above: Performed By: #### U A #### [address] [address] UA Blood Negative Normal Negative [facility] Comment on above: Performed By: #### U A #### [place] [address] UA Leuk Est Negative Normal Negative [facility] Comment on above: Performed By: #### U A #### [place] [address] UA Nitrite Negative Normal Negative [facility] Comment on above: Performed By: #### U A #### [place] [address] UA pH 6.5 Normal 5.0 - 8.0 [facility] Comment on above: Performed By: #### U A #### [place] [address] UA Protein Negative Normal Negative [facility] Comment on above: Performed By: #### U A #### [place] [address] UA Spec Grav 1.015 Normal 1.015-1.02 5 [facility] Comment on above: Performed By: #### U A #### [place] [address] UA Specimen Type Not Given Normal [facility] Comment on above: Performed By: #### U A #### [place] [address] UA Urobilinogen 0.2 E.U./dL Normal 0.2-1.0 [facility] Comment on above: Performed By: #### U A #### [place] [address] Urobilinogen (U) [Mass/Vol] Negative Normal Negative [facility] Comment on above: Performed By: #### U A #### [place] [address] XR CHEST 1 VIEWon 06-29-2024 XR CHEST 1 VIEW ORIGINAL EXAMINATION: ONE XRAY VIEW OF THE CHEST 06/29/2024 10:40 pm COMPARISON: 12/09/2017 HISTORY: ORDERING SYSTEM PROVIDED HISTORY: Reason for Exam: weakness FINDINGS: Cardiomediastinal silhouette is mildly enlarged which could be secondary to patient inspiratory effort and technique. Mild blunting of the left costophrenic angle is favored to be secondary to superimposed soft tissue structures and epicardial fat pad. No focal consolidation, large pleural effusion, pulmonary edema or pneumothorax. No acute osseous findings. IMPRESSION: No acute cardiopulmonary findings. I have personally reviewed the images of this examination and agree with the resident's findings and interpretation. Interpreted by: Tay Khoury Preliminary Report By: Eva Gutierrez Electronically signed By Tay Khoury Dictated Date: 06/29/2024 11:00:14 PM Prelim Date: 06/29/2024 11:02:01 PM Sign Date: 06/29/2024 11:06:58 PM [facility]ing [facility] ----- KRISHAN BURNHAM ([id number]) 1965 M Date Time Provider Department 06/01/24 10:15 AM TILA REYES [facility] During your visit today, we recorded the following information about you: Temperature Pulse Respiration Blood pressure 97 degrees 64/minute 18/minute 143/77 Weight 106 kg Tila Reyes APRN.SNIPPER 06/01/2024 10:15 AM Signed [facility] Subjective Krishan Burnham is a 58 year old male. Patient presents with: Viral Infections: Entered by patient Sinus Problem: Sinus congestion x1 day Derm Problem: Sore on inside of R nostril x1 week, possible Staph Patient came in with complaints of sinus pressure and congestion for a week and a half. Patient also thinks he has staph inside his nose. Patient says he gets it quite often. Patient says it sore. Patient denies any other symptoms at this time. The history is provided by the patient. No clinical laboratory technologist was used. Sinus Problem Associated symptoms include congestion. Review of Systems Constitutional: Negative. HENT: Positive for congestion and sinus pressure. Objective BP 143/77 Pulse 64 Temp 36.1 ?C (97 ?F) Resp 18 Wt 106 kg (233 lb 11 oz) SpO2 99% Physical Exam Constitutional: Appearance: Normal appearance. HENT: Right Ear: Tympanic membrane, ear canal and external ear normal. Left Ear: Tympanic membrane, ear canal and external ear normal. Nose: Nasal tenderness present. Right Turbinates: Enlarged and swollen. Left Turbinates: Swollen. Not enlarged. Right Sinus: Maxillary sinus tenderness present. Left Sinus: Maxillary sinus tenderness present. Mouth/Throat: Mouth: Mucous membranes are moist. Pharynx: Oropharynx is clear. Eyes: Pupils: Pupils are equal, round, and reactive to light. Cardiovascular: Rate and Rhythm: Normal rate and regular rhythm. Heart sounds: Normal heart sounds. Pulmonary: Effort: Pulmonary effort is normal. Breath sounds: Normal breath sounds. Neurological: Mental Status: He is alert. No past medical history on file. No past surgical history on file. ALLERGIES Patient has no known allergies. MEDICATIONS doxycycline (VIBRA-TABS) 100 mg tablet Take 1 tablet by mouth two times a day for 7 days. mupirocin (BACTROBAN) 2 % ointment Apply to affected area three times a day for 10 days. No family history on file. Social History Tobacco Use Smoking status: Never Smokeless tobacco: Never {ASSESSMENT/PLAN: 1. Rhinosinusitis - ICD9: 473.9, ICD10: J32.9 - Will begin treatment with as per antibiotic as written, see orders - Supportive care with plenty of fluids, rest, and analgesia prn. - DOXYCYCLINE HYCLATE 100 MG TABLET - MUPIROCIN 2 % TOPICAL OINTMENT Patient agreeable to care plan. Tila Reyes APRN.SNIPPER History and Record Review External record(s) reviewed: no prior records. Disposition The patient was discharged. Procedures Allergies As of Date: 06/01/2024 (No Known Allergies) Date Reviewed: 06/01/2024 Reviewed by: Natasha Toth MA - Fully Assessed Reason for Visit: Viral Infections [4226] Cmt: Entered by patient Sinus Problem [99] Cmt: Sinus congestion x1 day Derm Problem [33] Cmt: Sore on inside of R nostril x1 week, possible Staph Primary Visit Diagnosis:Rhinosinusitis [J32.9] Order(s):doxycycline (VIBRA-TABS) 100 mg tabletTake 1 tablet by mouth two times a day for 7 days.Disp: 14 tabletRfl: 0 mupirocin (BACTROBAN) 2 % ointmentApply to affected area three times a day for 10 days.Disp: 15 gRfl: 0 Prescriptions as of 06/01/2024 - doxycycline (VIBRA-TABS) 100 mg tablet Take 1 tablet by mouth two times a day for 7 days. - mupirocin (BACTROBAN) 2 % ointment Apply to affected area three times a day for 10 days. Problem List As Of Date: 06/01/2024 (None) Prescriptions ordered this encounter Disp Refills Start End DOXYCYCLINE HYCLATE 100 MG TABLET 14 t* 0 06/01/2024 06/08/2024 Route: ORAL Sig: Take 1 tablet by mouth two times a day for 7 days. MUPIROCIN 2 % TOPICAL OINTMENT 15 g 0 06/01/2024 06/11/2024 Route: TOPICAL Sig: Apply to affected area three times a day for 10 days. Encounter Status:Closed by TILA REYES on 06/01/24 Normal [facility] - Microbiology an d Antimicrobial susceptibilityOrdered By: Collin Burciaga on 04-26-2023 SARS-CoV-2 (COVID-19) RNA GITA+probe Ql (Unsp spec) [facility] Absolute lymphocyte countOrd ered By: Temi Katz on 03-20-2023 Lymphocytes Auto (Unsp spec) [#/Vol] 1.27 10*3/uL 0.83-4.51 [facility] Automated lymphocyte count a s percentage of total leukocytesOrdered By: Temi Katz on 03-20-2023 Lymphocytes/100 WBC Auto (Unsp spec) 24.8 % 19-41 [facility] Basophil percentageOrdered B y: Temi Katz on 03-20-2023 Basophils/100 WBC (Bld) 0.6 % 0-1 [facility] Chloride [Moles/Vol] 105 mmol/L 98-107 [facility] Eosinophils/100 WBC (Bld) 3.5 % 0-5 [facility] Glucose [Mass/Vol] 144 mg/dL 74-106 [facility] Comment on above: Fasting Glucose resu lt greater than or equal to 126 mg/dL suggests DIABETES MELLITUS per A.D.A. criteria. Hemoglobin (Bld) [Mass/Vol] 14.1 g/dL 13.0-16.5 [facility] Monocytes/100 WBC (Bld) 12.1 % 0-10 [facility] Neutrophils (Bld) [#/Vol] 3.0 10*3/uL 2.0-7.7 [facility] Neutrophils/100 WBC (Bld) 58.8 % 47-70 [facility] Potassium [Moles/Vol] 3.4 mmol/L 3.5-5.1 [facility] Sodium [Moles/Vol] 139 mmol/L 136-145 [facility] WBC (Bld) [#/Vol] 5.1 10*3/uL 4.4-11.0 [facility] Determination of erythrocyte mean corpuscular volume (MCV)Ordered By: Temi Katz on 03-20-2023 MCV (RBC) [Entitic vol] 84.8 fL 80-94 [facility] Erythrocyte distribution wid th ratioOrdered By: Temi Katz on 03-20-2023 Erythrocyte distribution width (RBC) [Ratio] 12.3 % 11.6-14.6 [facility] Erythrocyte distribution wid th standard deviationOrdered By: Temi Katz on 03-20-2023 Erythrocyte distribution width (RBC) [Entitic vol] 37.8 fL 35.1-43.9 [facility] Hematocrit Auto (Bld) [Volum e fraction]Ordered By: Temi Katz on 03-20-2023 Hematocrit (Bld) [Volume fraction] 41.2 % 40-54 [facility] Immature granulocytes/100 WB C Auto (Bld)Ordered By: Temi Katz on 03-20-2023 Immature granulocytes/100 WBC (Bld) 0.200 % 0.0-0.9 [facility] Comment on above: IG% - Immature Granu locytes (promyelocytes, myelocytes and metamyelocytes) > 1% indicates that a LEFT SHIFT is Present. Laboratory - Chemistry and C hemistry - challengeOrdered By: Temi Katz on 03-20-2023 CO2 [Moles/Vol] 28.0 mmol/L 21.0-32.0 [facility] Urea nitrogen/Creatinine [Mass ratio] 19.7 mg/mg 10-20 [facility] - Hematology and Cell countsOrdered By: Temi Katz on 03-20-2023 MCH (RBC) [Entitic mass] 29.0 pg 27.0-32.0 [facility] MCHC (RBC) [Mass/Vol] 34.2 g/dL 32-36 [facility] Nucleated RBC/100 WBC (Bld) [Ratio] 0 % 0-5 [facility] Platelets (Bld) [#/Vol] 135 10*3/uL 150-450 [facility] No Panel InformationOrdered By: Temi Katz on 03-20-2023 Estimated Creatinine Clearance Calc 105.65 ml/min [facility] Estimated GFR (MDRD) Amer 103 mL/min >60 [facility] Comment on above: GFR Calc Estimated GFR (MDRD) Non-Af Amer 85 mL/min >60 [facility] Comment on above: Non- GFR Calc Platelet mean volume Paramjit-Ec ker (Bld) [Entitic vol]Ordered By: Temi Katz on 03-20-2023 Platelet mean volume (Bld) [Entitic vol] 9.7 fL 6.2-12.0 [facility] RBC Auto (Bld) [#/Vol]Ordere d By: Temi Katz on 03-20-2023 RBC (Bld) [#/Vol] 4.86 10*6/uL 4.6-6.2 [facility] Serum or plasma calcium noy urement (mass/volume)Ordered By: Temi Katz on 03-20-2023 Calcium [Mass/Vol] 8.9 mg/dL 8.5-10.1 [facility] Serum or plasma creatinine m easurement (mass/volume)Ordered By: Temi Katz on 03-20-2023 Creatinine [Mass/Vol] 0.96 mg/dL 0.70-1.30 [facility] Comment on above: The validity of the calculated GFR & GFRAA in patients over 70 years has not been determined. Clinical correlation is essential. Serum or plasma urea nitroge n measurement (mass/volume)Ordered By: Temi Katz on 03-20-2023 Urea nitrogen [Mass/Vol] 19 mg/dL 7-18 [facility] Thin prep Papanicolaou smear with manual screeningOrdered By: Temi Katz on 03-20-2023 Thin prep Papanicolaou smear with manual screening 6 5-15 [facility] Laboratory - CoagulationOrde red By: Temi Katz on 03-18-2023 PT Coag (PPP) [Time] 13.6 s 11.7-14.9 [facility] Platelet poor plasma interna tional normalized ratio (INR)Ordered By: Temi Katz on 03-18-2023 INR Coag (PPP) [Relative time] 1.0 {INR} [facility] Whole blood hemoglobin A1c/t otal hemoglobin ratio (mass fraction)Ordered By: Temi Katz on 03-18-2023 HbA1c (Bld) [Mass fraction] 6.4 % 3.8-5.6 [facility] Comment on above: Normal < 5.7 % Predi abetic 5.7 - 6.4 % Diabetic >or= 6.5 % Please note range changes. Basophil percentageOrdered B y: Jake Campbell on 03-17-2023 Cholesterol [Mass/Vol] 146 mg/dL <200 [facility] Comment on above: <200 mg/dL Desirable 200-240 mg/dL Borderline >240 mg/dL High Risk Triglyceride [Mass/Vol] 302 mg/dL <199 [facility] Comment on above: The drugs N-Acetylcy steine and Metamizole may falsely depress this assay.Serum Triglycerides Reference Interval Normal <150 mg/dL Borderline high 150 - 199 mg/dL High 200 - 499 mg/dL Very High > or = 500 mg/dL Laboratory - Chemistry and C hemistry - challengeOrdered By: Jake Campbell on 03-17-2023 Cholesterol in HDL (Body fld) [Mass/Vol] 32 mg/dL >40 [facility] Comment on above: The drugs N-Acetylcy steine and Metamizole may falsely depress this assay. Reference Range HDL <40 mg/dL Low HDL Cholesterol HDL >or= 60 mg/dL High HDL Cholesterol Cholesterol in LDL (Body fld) [Moles/Vol] 54 mg/dL 0-130 [facility] Cholesterol in VLDL Calc [Moles/Vol] 60 mg/dL 5-40 [facility] Absolute lymphocyte countOrd ered By: Xavi Orlando on 03-16-2023 Lymphocytes Auto (Unsp spec) [#/Vol] 1.51 10*3/uL 0.83-4.51 [facility] Automated lymphocyte count a s percentage of total leukocytesOrdered By: Xavi Orlando on 03-16-2023 Lymphocytes/100 WBC Auto (Unsp spec) 23.2 % 19-41 [facility] Basophil percentageOrdered B y: Xavi Orlando on 03-16-2023 Basophils/100 WBC (Bld) 0.5 % 0-1 [facility] Chloride [Moles/Vol] 106 mmol/L 98-107 [facility] Eosinophils/100 WBC (Bld) 2.5 % 0-5 [facility] Glucose [Mass/Vol] 173 mg/dL 74-106 [facility] Comment on above: Fasting Glucose resu lt greater than or equal to 126 mg/dL suggests DIABETES MELLITUS per A.D.A. criteria. Hemoglobin (Bld) [Mass/Vol] 15.2 g/dL 13.0-16.5 [facility] Monocytes/100 WBC (Bld) 9.7 % 0-10 [facility] Neutrophils (Bld) [#/Vol] 4.2 10*3/uL 2.0-7.7 [facility] Neutrophils/100 WBC (Bld) 63.8 % 47-70 [facility] Potassium [Moles/Vol] 3.5 mmol/L 3.5-5.1 [facility] Sodium [Moles/Vol] 138 mmol/L 136-145 [facility] WBC (Bld) [#/Vol] 6.5 10*3/uL 4.4-11.0 [facility] Determination of erythrocyte mean corpuscular volume (MCV)Ordered By: Xavi Orlando on 03-16-2023 MCV (RBC) [Entitic vol] 85.9 fL 80-94 [facility] Erythrocyte distribution wid th ratioOrdered By: Xavi Orlando on 03-16-2023 Erythrocyte distribution width (RBC) [Ratio] 12.4 % 11.6-14.6 [facility] Erythrocyte distribution wid th standard deviationOrdered By: Xavi Orlando on 03-16-2023 Erythrocyte distribution width (RBC) [Entitic vol] 38.6 fL 35.1-43.9 [facility] Hematocrit Auto (Bld) [Volum e fraction]Ordered By: Xavi Orlando on 03-16-2023 Hematocrit (Bld) [Volume fraction] 44.0 % 40-54 [facility] Immature granulocytes/100 WB C Auto (Bld)Ordered By: Xavi Orlando on 03-16-2023 Immature granulocytes/100 WBC (Bld) 0.300 % 0.0-0.9 [facility] Comment on above: IG% - Immature Granu locytes (promyelocytes, myelocytes and metamyelocytes) > 1% indicates that a LEFT SHIFT is Present. Laboratory - Chemistry and C hemistry - challengeOrdered By: Xavi Orlando on 03-16-2023 Natriuretic peptide B (Bld) [Mass/Vol] 5.2 pg/mL 0-100 [facility] CO2 [Moles/Vol] 28.0 mmol/L 21.0-32.0 [facility] Urea nitrogen/Creatinine [Mass ratio] 18.4 mg/mg 10-20 [facility] Laboratory - Hematology and Cell countsOrdered By: Xavi Orlando on 03-16-2023 MCH (RBC) [Entitic mass] 29.7 pg 27.0-32.0 [facility] MCHC (RBC) [Mass/Vol] 34.5 g/dL 32-36 [facility] Nucleated RBC/100 WBC (Bld) [Ratio] 0 % 0-5 [facility] Platelets (Bld) [#/Vol] 147 10*3/uL 150-450 [facility] No Panel InformationOrdered By: Jake Campbell on 03-16-2023 Troponin I High Sensitivity 14 pg/mL 3.0-78.0 [facility] Comment on above: Please Note: New Ann[place] t Units and Gender Specific Reference Ranges. For more information see Policy Stat Procedure [place] High Sensitivity Troponin (TNIH) and attachments. No Panel InformationOrdered By: Xavi Orlando on 03-16-2023 Troponin I High Sensitivity 10 pg/mL 3.0-78.0 [facility] Comment on above: Please Note: New Ann[place] t Units and Gender Specific Reference Ranges. For more information see Policy Stat Procedure [place] High Sensitivity Troponin (TNIH) and attachments. Estimated Creatinine Clearance Calc 81.49 ml/min [facility] Estimated GFR (MDRD) Amer 76 mL/min >60 [facility] Comment on above: GFR Calc Estimated GFR (MDRD) Non-Af Amer 63 mL/min >60 [facility] Comment on above: Non- GFR Calc Platelet mean volume Paramjit-Ec ker (Bld) [Entitic vol]Ordered By: Xavi Orlando on 03-16-2023 Platelet mean volume (Bld) [Entitic vol] 10.1 fL 6.2-12.0 [facility] RBC Auto (Bld) [#/Vol]Ordere d By: Xavi Orlando on 03-16-2023 RBC (Bld) [#/Vol] 5.12 10*6/uL 4.6-6.2 [facility] Serum or plasma calcium noy urement (mass/volume)Ordered By: Xavi Orlando on 03-16-2023 Calcium [Mass/Vol] 9.3 mg/dL 8.5-10.1 [facility] Serum or plasma creatinine m easurement (mass/volume)Ordered By: Xavi Orlando on 03-16-2023 Creatinine [Mass/Vol] 1.25 mg/dL 0.70-1.30 [facility] Comment on above: The validity of the calculated GFR & GFRAA in patients over 70 years has not been determined. Clinical correlation is essential. Serum or plasma urea nitroge n measurement (mass/volume)Ordered By: Xavi Orlando on 03-16-2023 Urea nitrogen [Mass/Vol] 23 mg/dL 09-13 [facility] Thin prep Papanicolaou smear with manual screeningOrdered By: Xavi Orlando on 03-16-2023 Thin prep Papanicolaou smear with manual screening 4 07-11 [facility] Absolute lymphocyte countOrd ered By: Jose Maria Bedoya on 01-12-2023 Lymphocytes Auto (Unsp spec) [#/Vol] 1.38 10*3/uL 0.83-4.51 [facility] Basophil percentageOrdered B y: Jose Maria Bedoya on 01-12-2023 Basophils/100 WBC (Bld) 0.4 % 0-1 [facility] Chloride [Moles/Vol] 107 mmol/L 98-107 [facility] Eosinophils/100 WBC (Bld) 1.3 % 0-5 [facility] Glucose [Mass/Vol] 102 mg/dL 74-106 [facility] Comment on above: Fasting Glucose resu lt from 100 to 125 mg/dL suggests IMPAIRED HOMEOSTASIS per A.D.A. criteria. Neutrophils (Bld) [#/Vol] 6.6 10*3/uL 2.0-7.7 [facility] Neutrophils/100 WBC (Bld) 73.4 % 47-70 [facility] Potassium [Moles/Vol] 3.7 mmol/L 3.5-5.1 [facility] Sodium [Moles/Vol] 141 mmol/L 136-145 [facility] WBC (Bld) [#/Vol] 9.0 10*3/uL 4.4-11.0 [facility] Blood erythrocytes count (nu mber/volume)Ordered By: Jose Maria Bedoya on 01-12-2023 RBC (Bld) [#/Vol] 4.99 10*6/uL 4.6-6.2 [facility] Blood hemoglobin measurement (mass/volume)Ordered By: Jose Maria Bedoya on 01-12-2023 Hemoglobin (Bld) [Mass/Vol] 14.7 g/dL 13.0-16.5 [facility] Blood lymphocytes/100 leukoc ytesOrdered By: Jose Maria Bedoya on 01-12-2023 Lymphocytes/100 WBC (Bld) 15.3 % 19-41 [facility] Blood monocytes/100 leukocyt esOrdered By: Jose Maria Bedoya on 01-12-2023 Monocytes/100 WBC (Bld) 9.4 % 0-10 [facility] Blood platelet mean volumeOr dered By: Jose Maria Bedoya on 01-12-2023 Platelet mean volume (Bld) [Entitic vol] 9.8 fL 6.2-12.0 [facility] Determination of erythrocyte mean corpuscular volume (MCV)Ordered By: Jose Maria Bedoya on 01-12-2023 MCV (RBC) [Entitic vol] 86.8 fL 80-94 [facility] Glucose Glucometer (BldC) [M ass/Vol]Ordered By: Jose Maria Bedoya on 01-12-2023 Glucose [Mass/Vol] 116 mg/dL 74-106 [facility] Comment on above: MANAGEMENT OF PATIEN T CARE PER NURSING PROTOCOL Hematocrit Auto (Bld) [Volum e fraction]Ordered By: Jose Maria Bedoya on 01-12-2023 Hematocrit (Bld) [Volume fraction] 43.3 % 40-54 [facility] Laboratory - Chemistry and C hemistry - challengeOrdered By: Jose Maria Bedoya on 01-12-2023 CO2 [Moles/Vol] 28.0 mmol/L 21.0-32.0 [facility] Urea nitrogen/Creatinine [Mass ratio] 20.5 mg/mg 10-20 [facility] - Hematology and Cell countsOrdered By: Jose Maria Bedoya on 01-12-2023 Erythrocyte distribution width (RBC) [Entitic vol] 39.1 fL 35.1-43.9 [facility] Erythrocyte distribution width (RBC) [Ratio] 12.5 % 11.6-14.6 [facility] Immature granulocytes/100 WBC (Bld) 0.200 % 0.0-0.9 [facility] Comment on above: IG% - Immature Granu locytes (promyelocytes, myelocytes and metamyelocytes) > 1% indicates that a LEFT SHIFT is Present. MCH (RBC) [Entitic mass] 29.5 pg 27.0-32.0 [facility] Nucleated RBC/100 WBC (Bld) [Ratio] 0 % 0-5 [facility] MCHC Auto (RBC) [Mass/Vol]Or dered By: Jose Maria Bedoya on 01-12-2023 MCHC (RBC) [Mass/Vol] 33.9 g/dL 32-36 [facility] No Panel InformationOrdered By: Jose Maria Bedoya on 01-12-2023 Estimated Creatinine Clearance Calc 98.64 ml/min [facility] Estimated GFR (MDRD) Amer 115 mL/min >60 [facility] Comment on above: GFR Calc Estimated GFR (MDRD) Non-Af Amer 95 mL/min >60 [facility] Comment on above: Non- GFR Calc Platelets bldOrdered By: Prerna Bedoya on 01-12-2023 Platelets (Bld) [#/Vol] 129 10*3/uL 150-450 [facility] Serum or plasma calcium noy urement (mass/volume)Ordered By: Jose Maria Bedoya on 01-12-2023 Calcium [Mass/Vol] 8.7 mg/dL 8.5-10.1 [facility] Serum or plasma creatinine m easurement (mass/volume)Ordered By: Jose Maria Bedoya on 01-12-2023 Creatinine [Mass/Vol] 0.88 mg/dL 0.70-1.30 [facility] Comment on above: The validity of the calculated GFR & GFRAA in patients over 70 years has not been determined. Clinical correlation is essential. Serum or plasma urea nitroge n measurement (mass/volume)Ordered By: Jose Maria Bedoya on 01-12-2023 Urea nitrogen [Mass/Vol] 18 mg/dL 7-18 [facility] Thin prep Papanicolaou smear with manual screeningOrdered By: Jose Maria Bedoya on 01-12-2023 Thin prep Papanicolaou smear with manual screening 6 5-15 [facility] Basophil percentageOrdered B y: Jamee Phillips on 01-11-2023 Bilirubin [Mass/Vol] 0.70 mg/dL 0.20-1.00 [facility] Comment on above: For patients on eltr ombopag therapy, use of Dimension [place] TBIL is not recommended. Cholesterol [Mass/Vol] 117 mg/dL <200 [facility] Comment on above: <200 mg/dL Desirable 200-240 mg/dL Borderline >240 mg/dL High Risk Protein [Mass/Vol] 6.6 g/dL 6.4-8.2 [facility] Triglyceride [Mass/Vol] 176 mg/dL <199 [facility] Comment on above: The drugs N-Acetylcy steine and Metamizole may falsely depress this assay.Serum Triglycerides Reference Interval Normal <150 mg/dL Borderline high 150 - 199 mg/dL High 200 - 499 mg/dL Very High > or = 500 mg/dL Laboratory - Chemistry and C hemistry - challengeOrdered By: Jamee Phillips on 01-11-2023 ALP [Catalytic activity/Vol] 53 U/L 45-117 [facility] ALT [Catalytic activity/Vol] 11 U/L 16-61 [facility] Globulin (S) [Mass/Vol] 3.0 g/dL 2.2-4.2 [facility] No Panel InformationOrdered By: Jamee Phillips on 01-11-2023 Thyroid Stimulating Hormone (TSH) 1.95 uIU/mL 0.358-3.74 [facility] Troponin I High Sensitivity 18 pg/mL 3.0-78.0 [facility] Comment on above: Please Note: New Ann[place] t Units and Gender Specific Reference Ranges. For more information see Policy Stat Procedure [place] High Sensitivity Troponin (TNIH) and attachments. Serum or plasma albumin noy urement (mass/volume)Ordered By: Jamee Phillips on 01-11-2023 Albumin [Mass/Vol] 3.6 g/dL 3.2-5.0 [facility] Serum or plasma albumin/glob ulin mass ratioOrdered By: Jamee Phillips 01-11-2023 Albumin/Globulin [Mass ratio] 1.2 {ratio} 0.9-2.4 [facility] Serum or plasma cholesterol in HDL measurement (mass/volume)Ordered By: [facility] Alan 01-11-2023 Cholesterol in HDL [Mass/Vol] 32 mg/dL >40 [facility] Comment on above: The drugs N-Acetylcy steine and Metamizole may falsely depress this assay. Reference Range HDL <40 mg/dL Low HDL Cholesterol HDL >or= 60 mg/dL High HDL Cholesterol Serum or plasma cholesterol in VLDL measurement (mass/volume)Ordered By: Jamee Phillips 01-11-2023 Cholesterol in VLDL [Mass/Vol] 35 mg/dL 5-40 [facility] Serum or plasma low density lipoprotein (LDL) cholesterol measurement (mass/volume)Ordered By: [facility] Alan 01-11-2023 Cholesterol in LDL [Mass/Vol] 50 mg/dL 0-130 [facility] Thin prep Papanicolaou smear with manual screeningOrdered By: Jamee Phillips 01-11-2023 Thin prep Papanicolaou smear with manual screening 27 U/L 15-37 [facility] Whole blood hemoglobin A1c/t otal hemoglobin ratio (mass fraction)Ordered By: Jamee Phillips 01-11-2023 HbA1c (Bld) [Mass fraction] 6.0 % 3.8-5.6 [facility] Comment on above: Normal < 5.7 % Predi abetic 5.7 - 6.4 % Diabetic >or= 6.5 % Please note range changes. Absolute lymphocyte countOrd ered By: Flaviojoanne Concepcion on 01-10-2023 Lymphocytes Auto (Unsp spec) [#/Vol] 1.57 10*3/uL 0.83-4.51 [facility] Basophil percentageOrdered B y: Flaviojoanne Concepcion on 01-10-2023 Basophils/100 WBC (Bld) 0.4 % 0-1 [facility] Chloride [Moles/Vol] 103 mmol/L 98-107 [facility] Eosinophils/100 WBC (Bld) 1.8 % 0-5 [facility] Glucose [Mass/Vol] 159 mg/dL 74-106 [facility] Comment on above: Fasting Glucose resu lt greater than or equal to 126 mg/dL suggests DIABETES MELLITUS per A.D.A. criteria. Neutrophils (Bld) [#/Vol] 4.3 10*3/uL 2.0-7.7 [facility] Neutrophils/100 WBC (Bld) 64.2 % 47-70 [facility] Potassium [Moles/Vol] 3.2 mmol/L 3.5-5.1 [facility] Sodium [Moles/Vol] 138 mmol/L 136-145 [facility] WBC (Bld) [#/Vol] 6.7 10*3/uL 4.4-11.0 [facility] Blood erythrocytes count (nu mber/volume)Ordered By: Flaviojoanne Concepcion on 01-10-2023 RBC (Bld) [#/Vol] 4.71 10*6/uL 4.6-6.2 [facility] Blood hemoglobin measurement (mass/volume)Ordered By: Flaviojoanne Concepcion on 01-10-2023 Hemoglobin (Bld) [Mass/Vol] 13.8 g/dL 13.0-16.5 [facility] Blood lymphocytes/100 leukoc ytesOrdered By: Flaviojoanne Concepcion on 01-10-2023 Lymphocytes/100 WBC (Bld) 23.5 % 19-41 [facility] Blood monocytes/100 leukocyt esOrdered By: Flavio Concepcion on 01-10-2023 Monocytes/100 WBC (Bld) 10.0 % 0-10 [facility] Blood platelet mean volumeOr dered By: Flavio Concepcion on 01-10-2023 Platelet mean volume (Bld) [Entitic vol] 9.7 fL 6.2-12.0 [facility] Determination of erythrocyte mean corpuscular volume (MCV)Ordered By: Flavio Concepcion on 01-10-2023 MCV (RBC) [Entitic vol] 84.9 fL 80-94 [facility] Glucose Glucometer (BldC) [M ass/Vol]Ordered By: Flavio Concepcion on 01-10-2023 Glucose [Mass/Vol] 167 mg/dL 74-106 [facility] Comment on above: MANAGEMENT OF PATIEN T CARE PER NURSING PROTOCOL Hematocrit Auto (Bld) [Volum e fraction]Ordered By: Flavio Concepcion on 01-10-2023 Hematocrit (Bld) [Volume fraction] 40.0 % 40-54 [facility] INR in Blood by Coagulation assayOrdered By: Flavio Concepcion on 01-10-2023 INR Coag (Bld) [Relative time] 1.1 {INR} [facility] Laboratory - Chemistry and C hemistry - challengeOrdered By: Flavio Concepcion on 01-10-2023 CO2 [Moles/Vol] 31.0 mmol/L 21.0-32.0 [facility] Urea nitrogen/Creatinine [Mass ratio] 14.5 mg/mg 10-20 [facility] Laboratory - Chemistry and C hemistry - challengeOrdered By: Jamee White on 01-10-2023 Magnesium [Mass/Vol] 2.2 mg/dL 1.6-2.6 [facility] Laboratory - CoagulationOrde red By: Flavio Concepcion on 01-10-2023 aPTT Coag (Bld) [Time] 28.1 s 24.1-36.2 [facility] PT Coag (PPP) [Time] 13.9 s 11.7-14.9 [facility] Laboratory - Hematology and Cell countsOrdered By: Flavio Concepcion on 01-10-2023 Erythrocyte distribution width (RBC) [Entitic vol] 37.9 fL 35.1-43.9 [facility] Erythrocyte distribution width (RBC) [Ratio] 12.3 % 11.6-14.6 [facility] Immature granulocytes/100 WBC (Bld) 0.100 % 0.0-0.9 [facility] Comment on above: IG% - Immature Granu locytes (promyelocytes, myelocytes and metamyelocytes) > 1% indicates that a LEFT SHIFT is Present. MCH (RBC) [Entitic mass] 29.3 pg 27.0-32.0 [facility] Nucleated RBC/100 WBC (Bld) [Ratio] 0 % 0-5 [facility] MCHC Auto (RBC) [Mass/Vol]Or dered By: Flavio Concepcion on 01-10-2023 MCHC (RBC) [Mass/Vol] 34.5 g/dL 32-36 [facility] No Panel InformationOrdered By: Flaviojoanne Concepcion on 01-10-2023 Estimated Creatinine Clearance Calc 66.26 ml/min [facility] Estimated GFR (MDRD) Amer 72 mL/min >60 [facility] Comment on above: GFR Calc Estimated GFR (MDRD) Non-Af Amer 60 mL/min >60 [facility] Comment on above: Non- GFR Calc Troponin I High Sensitivity 12 pg/mL 3.0-78.0 [facility] Comment on above: Please Note: New Annel t Units and Gender Specific Reference Ranges. For more information see Policy Stat Procedure [place] High Sensitivity Troponin (TNIH) and attachments. Platelets bldOrdered By: Flavio Concepcion on 01-10-2023 Platelets (Bld) [#/Vol] 127 10*3/uL 150-450 [facility] Serum or plasma calcium noy urement (mass/volume)Ordered By: Flaviojoanne Concepcion on 01-10-2023 Calcium [Mass/Vol] 8.2 mg/dL 8.5-10.1 [facility] Serum or plasma creatinine m easurement (mass/volume)Ordered By: Flaviojoanne Concepcion on 01-10-2023 Creatinine [Mass/Vol] 1.31 mg/dL 0.70-1.30 [facility] Comment on above: The validity of the calculated GFR & GFRAA in patients over 70 years has not been determined. Clinical correlation is essential. Serum or plasma urea nitroge n measurement (mass/volume)Ordered By: Flavio Concepcion on 01-10-2023 Urea nitrogen [Mass/Vol] 19 mg/dL - [facility] Thin prep Papanicolaou smear with manual screeningOrdered By: Flavio Concepcion on 01-10-2023 Thin prep Papanicolaou smear with manual screening 4 - [facility] Reminderson 12-16-2022 Reminders - From: Shelly Munguia MA To: Shelly Munguia MA; Sent: 12/15/2022 13:50:33 EDT Show up: 12/15/2022 13:51:00 EDT Subject: colon recall Reminder Message [address] Medina 12/11/17 first recall letter sent Normal [facility] Patient Letter FTon 2022 Patient Letter [facility] (Inserted Image. Bouchra ble to display) December 15, 2022 KRISHAN BURNHAM [address] [place] [address] : 1965 Dear Krishan, This is a reminder that you are due for an appointment with [facility]. Please contact our office at [phone] to schedule your 5 year colon recall Thank you, [facility] Glucose Glucometer (BldC) [M ass/Vol]Ordered By: Timur Abreu on 07-04-2022 Glucose [Mass/Vol] 131 mg/dL 74-106 [facility] Comment on above: MANAGEMENT OF PATIEN T CARE PER NURSING PROTOCOL No Panel InformationOrdered By: Lala Hannah on 06-18-2022 Stool Calprotectin 90 ug/g 0-120 [facility] Comment on above: Concentration Interp retation Follow-Up<16 - 50 ug/g Normal None>50 -120 ug/g Borderline Re-evaluate in 4-6 weeks >120 ug/g Abnormal Repeat as clinically indicatedPerformed at: BN - [facility] [address] [id number] Director: Luis Alfaro MD, Phone: [phone] Stool lactoferrin detection by immunoassayOrdered By: Lala Hannah on 06-18-2022 Lactoferrin IA Ql (Stl) [facility] Absolute lymphocyte countOrd ered By: Lala Hannah on 06-17-2022 Lymphocytes Auto (Unsp spec) [#/Vol] 1.14 10*3/uL 0.83-4.51 [facility] Albumin Elph [Mass/Vol]Order ed By: Lala Hannah on 06-17-2022 Albumin [Mass/Vol] 4.2 g/dL 2.9-4.4 [facility] Atypical perinuclear antineu trophil cytoplasmic antibodies measurementOrdered By: Lala Hannah on 06-17-2022 Neutrophil cytoplasmic Ab.perinuclear.atypical IF (S) [Titer] <1:20 titer Neg:<1:20 [facility] Comment on above: The atypical pANCA p attern has been observed in asignificant percentage of patients with ulcerative colitis,primary sclerosing cholangitis and autoimmune hepatitis.Performed at: - [facility] [address] [id number] Director: Jethro Saenz PhD, Phone: [phone] at: - [facility] [address] [id number] Director: Luis Alfaro MD, Phone: [phone] Basophil percentageOrdered B y: Lala Camden on 06-17-2022 Basophil percentage < 0.2 AI 0.0-0.9 [facility] Basophils/100 WBC (Bld) 0.7 % 0-1 [facility] Bilirubin [Mass/Vol] 0.70 mg/dL 0.20-1.00 [facility] Comment on above: For patients on eltr ombopag therapy, use of Dimension [place] TBIL is not recommended. Chloride [Moles/Vol] 106 mmol/L 98-107 [facility] Eosinophils/100 WBC (Bld) 3.0 % 0-5 [facility] Glucose [Mass/Vol] 131 mg/dL 74-106 [facility] Comment on above: Fasting Glucose resu lt greater than or equal to 126 mg/dL suggests DIABETES MELLITUS per A.D.A. criteria. LDH [Catalytic activity/Vol] 165 U/L 87-241 [facility] Neutrophils (Bld) [#/Vol] 3.5 10*3/uL 2.0-7.7 [facility] Neutrophils/100 WBC (Bld) 65.2 % 47-70 [facility] Potassium [Moles/Vol] 3.8 mmol/L 3.5-5.1 [facility] Protein [Mass/Vol] 8.0 g/dL 6.4-8.2 [facility] Sodium [Moles/Vol] 137 mmol/L 136-145 [facility] WBC (Bld) [#/Vol] 5.4 10*3/uL 4.4-11.0 [facility] Blood erythrocytes count (nu mber/volume)Ordered By: Lala Hannah on 06-17-2022 RBC (Bld) [#/Vol] 5.50 10*6/uL 4.6-6.2 [facility] Blood hemoglobin measurement (mass/volume)Ordered By: Lala Hannah on 06-17-2022 Hemoglobin (Bld) [Mass/Vol] 16.2 g/dL 13.0-16.5 [facility] Blood lymphocytes/100 leukoc ytesOrdered By: Lala Hannah on 06-17-2022 Lymphocytes/100 WBC (Bld) 21.2 % 19-41 [facility] Blood manual differential co mment interpretation (narrative result)Ordered By: Lala Hannah on 06-17-2022 Manual differential comment Bj (Bld) [Interp] 5.4 [facility] Blood monocytes/100 leukocyt esOrdered By: Lala Hannah on 06-17-2022 Monocytes/100 WBC (Bld) 9.7 % 0-10 [facility] Blood platelet mean volumeOr dered By: Lala Hannah on 06-17-2022 Platelet mean volume (Bld) [Entitic vol] 9.5 fL 6.2-12.0 [facility] Determination of erythrocyte mean corpuscular volume (MCV)Ordered By: Lala Hannah on 06-17-2022 MCV (RBC) [Entitic vol] 86.4 fL 80-94 [facility] Dilute Miguel Angel's viper venom timeOrdered By: Melania Sanders on 06-17-2022 dRVVT Coag (PPP) [Time] 33.3 s 0.0-47.0 [facility] Erythrocyte sedimentation ra teOrdered By: Lala Hannah on 06-17-2022 ESR (Bld) [Velocity] 3 mm/h 0-20 [facility] Hematocrit Auto (Bld) [Volum e fraction]Ordered By: Lala Hannah on 06-17-2022 Hematocrit (Bld) [Volume fraction] 47.5 % 40-54 [facility] Interpretation of serum or p lasma protein pattern by immunofixation (narrative resultOrdered By: Lala Hannah on 06-17-2022 Protein Fractions Immunofixation Bj [Interp] See comment [facility] Comment on above: Result: Not Observed Laboratory - Chemistry and C hemistry - challengeOrdered By: Lala Hannah on 06-17-2022 ALP [Catalytic activity/Vol] 53 U/L 45-117 [facility] ALT [Catalytic activity/Vol] 46 U/L 16-61 [facility] CO2 [Moles/Vol] 27.0 mmol/L 21.0-32.0 [facility] Urea nitrogen/Creatinine [Mass ratio] 16.4 mg/mg 10-20 [facility] Laboratory - Hematology and Cell countsOrdered By: Lala Hannah on 06-17-2022 Erythrocyte distribution width (RBC) [Entitic vol] 38.3 fL 35.1-43.9 [facility] Erythrocyte distribution width (RBC) [Ratio] 12.1 % 11.6-14.6 [facility] Immature granulocytes/100 WBC (Bld) 0.200 % 0.0-0.9 [facility] Comment on above: IG% - Immature Granu locytes (promyelocytes, myelocytes and metamyelocytes) > 1% indicates that a LEFT SHIFT is Present. MCH (RBC) [Entitic mass] 29.5 pg 27.0-32.0 [facility] Nucleated RBC/100 WBC (Bld) [Ratio] 0 % 0-5 [facility] MCHC Auto (RBC) [Mass/Vol]Or dered By: Lala Hannah on 06-17-2022 MCHC (RBC) [Mass/Vol] 34.1 g/dL 32-36 [facility] No Panel InformationOrdered By: Lala Hannah on 06-17-2022 Addendum Document Comment . [facility] Comment on above: Protein electrophore sis scan will follow via computer,mail, or host coordinator delivery. Centromere B Antibody <0.2 AI 0.0-0.9 [facility] Endomysial IgA Antibody Negative Negative [facility] Estimated GFR (MDRD) Amer 84 mL/min >60 [facility] Comment on above: GFR Calc Estimated GFR (MDRD) Non-Af Amer 69 mL/min >60 [facility] Comment on above: Non- GFR Calc Immunoglobulin E 36 IU/mL 6-495 [facility] Miscellaneous Test See comment [facility] Comment on above: TEST RESULT LIMITSIB D Expanded Panel Noe 68 High units 0-50 Negative <45 Equivocal 45 - 50 Positive >50 ACCA 29 units 0-90 Negative <80 Equivocal 80 - 90 Positive >90 ALCA 22 units 0-60 Negative <55 Equivocal 55 - 60 Positive >60 AMCA 69 units 0-100 Negative < 90 Equivocal 90 - 100 Positive >100 This test was developed and its performance characteristics determined by [facility]. It has not been cleared or approved by the Food and Drug Administration. The FDA has determined that such clearance or approval is not necessary.Atypical pANCA Negative Negative Comments Abnormal Suggestive of Crohn's Disease. Pattern is not conclusive for disease behavior risk stratification. TESTING PERFORMED AT [facility]. ORIGINAL REPORT ON FILE IN LAB CONTAINS ADDITIONAL TEST SITE INFORMATION. 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 <0.2 AI 0.0-0.9 [facility] Platelets bldOrdered By: Coreen Hannah on 06-17-2022 Platelets (Bld) [#/Vol] 151 10*3/uL 150-450 [facility] Serum DNA double strand anti body assay (units/volume)Ordered By: Lala Hannah on 06-17-2022 DNA double strand Ab Qn (S) [IU]/mL 0-9 [facility] Comment on above: Negative <5 Equivoca l 5 - 9 Positive >9 Serum Leonarda-1 antibody assay (u nits/volume)Ordered By: Lala Hannah on 06-17-2022 Leonarda-1 extractable nuclear Ab Qn (S) <0.2 AI 0.0-0.9 [facility] Serum Scl-70 extractable nuc lear antibody assay (units/volume)Ordered By: Lala Hannah on 06-17-2022 SCL-70 extractable nuclear Ab Qn (S) <0.2 AI 0.0-0.9 [facility] Serum Mcintyre extractable nucl ear antibody detectionOrdered By: Lala Hannah on 06-17-2022 Mcintyre extractable nuclear Ab Ql (S) <0.2 AI 0.0-0.9 [facility] Serum [id number] measu rement by electrophoresisOrdered By: Lala Hannah on 06-17-2022 Alpha 1 globulin Elph [Mass/Vol] 0.3 g/dL 0.0-0.4 [facility] Alpha 1 globulin Elph [Mass/Vol] 0.6 g/dL 0.4-1.0 [facility] Serum classic neutrophil cyt oplasmic antibody assay (units/volume)Ordered By: Lala Hannah on 06-17-2022 Neutrophil cytoplasmic Ab.classic Qn (S) <1:20 titer Neg:<1:20 [facility] Serum globulin measurement ( mass/volume)Ordered By: Lala Hannah on 06-17-2022 Globulin (S) [Mass/Vol] 3.0 g/dL 2.2-3.9 [facility] Serum or plasma C reactive p rotein measurement (mass/volume)Ordered By: Lala Hannah on 06-17-2022 CRP [Mass/Vol] mg/L 0.0-3.0 [facility] Comment on above: C-Reactive Protein ( CRP) provides useful information for thediagnosis, therapy and monitoring of inflammatory processesand associated diseases. For the evaluation of Relative Riskfor Cardiovascular Disease, a High Sensitivity CRP (HSCRP)should be ordered. Serum or plasma IgA measurem ent (mass/volume)Ordered By: Lala Hannah on 06-17-2022 IgA [Mass/Vol] 250 mg/dL 90-386 [facility] Serum or plasma IgG measurem ent (mass/volume)Ordered By: Lala Hannah on 06-17-2022 IgG [Mass/Vol] 1184 mg/dL 603-1613 [facility] Serum or plasma IgM measurem ent (mass/volume)Ordered By: Lala Hannah on 06-17-2022 IgM [Mass/Vol] 46 mg/dL 20-172 [facility] Serum or plasma albumin noy urement (mass/volume)Ordered By: Lala Hannah on 06-17-2022 Albumin [Mass/Vol] 4.5 g/dL 3.2-5.0 [facility] Serum or plasma albumin/glob ulin mass ratioOrdered By: Lala Hannah on 06-17-2022 Albumin/Globulin [Mass ratio] 1.3 {ratio} 0.9-2.4 [facility] Serum or plasma beta globuli n measurement by electrophoresis (mass/volume)Ordered By: Lala Hannah on 06-17-2022 Beta globulin Elph [Mass/Vol] 1.2 g/dL 0.7-1.3 [facility] Serum or plasma calcium noy urement (mass/volume)Ordered By: Lala Hannah on 06-17-2022 Calcium [Mass/Vol] 9.5 mg/dL 8.5-10.1 [facility] Serum or plasma creatinine m easurement (mass/volume)Ordered By: Lala Hannah on 06-17-2022 Creatinine [Mass/Vol] 1.16 mg/dL 0.70-1.30 [facility] Comment on above: The validity of the calculated GFR & GFRAA in patients over 70 years has not been determined. Clinical correlation is essential. Serum or plasma gamma globul in measurement by electrophoresis (mass/volume)Ordered By: Lala Hannah on 06-17-2022 Gamma globulin Elph [Mass/Vol] 1.0 g/dL 0.4-1.8 [facility] Serum or plasma immunoelectr ophoresis interpretation (nominal result)Ordered By: Lala Hannah on 06-17-2022 Interpretation IEP [Interp] Comment . [facility] Comment on above: No monoclonality det ected. Serum or plasma urea nitroge n measurement (mass/volume)Ordered By: Lala Hannah on 06-17-2022 Urea nitrogen [Mass/Vol] 19 mg/dL 7-18 [facility] Serum perinuclear neutrophil cytoplasmic antibody titer by immunofluorescenceOrdered By: Lala Hannah on 06-17-2022 Neutrophil cytoplasmic Ab.perinuclear IF (S) [Titer] <1:20 titer Neg:<1:20 [facility] Comment on above: The presence of posi tive fluorescence exhibiting P-ANCA orC-ANCA patterns alone is not specific for the diagnosis ofWegener's Granulomatosis (WG) or microscopic polyangiitis.Decisions about treatment should not be based solely onANCA IFA results. The International ANCA Group Consensusrecommends follow up testing of positive sera with both NE-3 and MPO-ANCA enzyme immunoassays. As many as 5% serumsamples are positive only by EIA. Ref. AM J Clin Nckjyl8620;111:507-513. Serum tissue transglutaminas e IgA antibody assay (units/volume)Ordered By: Lala Hannah on 06-17-2022 tTG IgA Qn (S) <2 U/mL 0-3 [facility] Comment on above: Negative 0 - 3 Weak Positive 4 - 10 Positive >10 Tissue Transglutaminase (tTG) has been identified as the endomysial antigen. Studies have demonstr- ated that endomysial IgA antibodies have over 99% specificity for gluten sensitive enteropathy. Thin prep Papanicolaou smear with manual screeningOrdered By: Lala Hannah on 06-17-2022 Thin prep Papanicolaou smear with manual screening 25 U/L 15-37 [facility] Thin prep Papanicolaou smear with manual screening 4 5-15 [facility] Thin prep Papanicolaou smear with manual screening 1.5 0.7-1.7 [facility] Thin prep Papanicolaou smear with manual screeningOrdered By: Melania Sanders on 06-17-2022 Thin prep Papanicolaou smear with manual screening 38.2 sec 0.0-47.6 [facility] Thin prep Papanicolaou smear with manual screening 1.01 Ratio 0.00-1.34 [facility] Thin prep Papanicolaou smear with manual screening 36.6 sec 0.0-43.5 [facility] Thin prep Papanicolaou smear with manual screening Comment: . [facility] Comment on above: No lupus anticoagula nt was detected.Performed at: - [address] [id number] Director: Luis Alfaro MD, Phone: [phone] Thrombin time in platelet po or plasmaOrdered By: Melania aSnders on 06-17-2022 Thrombin time Coag (PPP) [Time] 18.2 sec 0.0-23.0 [facility] Total protein bloodOrdered B y: Lala Hannah on 06-17-2022 Protein [Mass/Vol] 7.2 g/dL 6.0-8.5 [facility] Absolute lymphocyte countOrd ered By: Dr. Rodriguez on 05-26-2022 Lymphocytes Auto (Unsp spec) [#/Vol] 1.50 10*3/uL 0.83-4.51 [facility] Basophil percentageOrdered B y: Dr. Rodriguez on 05-26-2022 Basophil percentage 0 SEEN /hpf 0-5 [facility] Basophils/100 WBC (Bld) 0.6 % 0-1 [facility] Chloride [Moles/Vol] 104 mmol/L 98-107 [facility] Eosinophils/100 WBC (Bld) 1.7 % 0-5 [facility] Glucose [Mass/Vol] 121 mg/dL 74-106 [facility] Comment on above: Fasting Glucose resu lt from 100 to 125 mg/dL suggests IMPAIRED HOMEOSTASIS per A.D.A. criteria. Neutrophils (Bld) [#/Vol] 4.8 10*3/uL 2.0-7.7 [facility] Neutrophils/100 WBC (Bld) 66.6 % 47-70 [facility] Potassium [Moles/Vol] 3.9 mmol/L 3.5-5.1 [facility] Sodium [Moles/Vol] 139 mmol/L 136-145 [facility] WBC (Bld) [#/Vol] 7.1 10*3/uL 4.4-11.0 [facility] Bilirubin Test strip Ql (U)O rdered By: Dr. Rodriguez on 05-26-2022 Bilirubin Ql (U) Negative Negative [facility] Blood erythrocytes count (nu mber/volume)Ordered By: Dr. Rodriguez on 05-26-2022 RBC (Bld) [#/Vol] 5.51 10*6/uL 4.6-6.2 [facility] Blood hemoglobin measurement (mass/volume)Ordered By: Dr. Rodriguez on 05-26-2022 Hemoglobin (Bld) [Mass/Vol] 16.1 g/dL 13.0-16.5 [facility] Blood lymphocytes/100 leukoc ytesOrdered By: Dr. Rodriguez on 05-26-2022 Lymphocytes/100 WBC (Bld) 21.1 % 19-41 [facility] Blood monocytes/100 leukocyt esOrdered By: Dr. Rodriguez on 05-26-2022 Monocytes/100 WBC (Bld) 9.6 % 0-10 [facility] Blood platelet mean volumeOr dered By: Dr. Rodriguez on 05-26-2022 Platelet mean volume (Bld) [Entitic vol] 9.6 fL 6.2-12.0 [facility] Determination of erythrocyte mean corpuscular volume (MCV)Ordered By: Dr. Rodriguez on 05-26-2022 MCV (RBC) [Entitic vol] 85.7 fL 80-94 [facility] Hematocrit Auto (Bld) [Volum e fraction]Ordered By: Dr. Rodriguez on 05-26-2022 Hematocrit (Bld) [Volume fraction] 47.2 % 40-54 [facility] Ketones Test strip Ql (U)Ord ered By: Dr. Rodriguez on 05-26-2022 Ketones Ql (U) Negative Negative [facility] Laboratory - Chemistry and C hemistry - challengeOrdered By: Dr. Rodriguez on 05-26-2022 CO2 [Moles/Vol] 30.0 mmol/L 21.0-32.0 [facility] Urea nitrogen/Creatinine [Mass ratio] 14.2 mg/mg 10-20 [facility] Laboratory - Hematology and Cell countsOrdered By: Dr. Rodriguez on 05-26-2022 Erythrocyte distribution width (RBC) [Entitic vol] 36.6 fL 35.1-43.9 [facility] Erythrocyte distribution width (RBC) [Ratio] 11.9 % 11.6-14.6 [facility] Immature granulocytes/100 WBC (Bld) 0.400 % 0.0-0.9 [facility] Comment on above: IG% - Immature Granu locytes (promyelocytes, myelocytes and metamyelocytes) > 1% indicates that a LEFT SHIFT is Present. MCH (RBC) [Entitic mass] 29.2 pg 27.0-32.0 [facility] Nucleated RBC/100 WBC (Bld) [Ratio] 0 % 0-5 [facility] MCHC Auto (RBC) [Mass/Vol]Or dered By: Dr. Rodriguez on 05-26-2022 MCHC (RBC) [Mass/Vol] 34.1 g/dL 32-36 [facility] Mucus LM Ql (Urine sed)Order ed By: Dr. Rodriguez on 05-26-2022 Mucus Ql (Urine sed) 0 SEEN /hpf [facility] Nitrite Test strip Ql (U)Ord ered By: Dr. Rodriguez on 05-26-2022 Nitrite Ql (U) Negative Negative [facility] No Panel InformationOrdered By: Dr. Rodriguez on 05-26-2022 Estimated Creatinine Clearance Calc 73.21 ml/min [facility] Estimated GFR (MDRD) Amer 80 mL/min >60 [facility] Comment on above: GFR Calc Estimated GFR (MDRD) Non-Af Amer 66 mL/min >60 [facility] Comment on above: Non- GFR Calc Platelets bldOrdered By: Dr. Rodriguez on 05-26-2022 Platelets (Bld) [#/Vol] 151 10*3/uL 150-450 [facility] Protein Test strip Ql (U)Ord ered By: Dr. Rodriguez on 05-26-2022 Protein Ql (U) Negative Negative [facility] Serum or plasma calcium noy urement (mass/volume)Ordered By: Dr. Rodriguez on 05-26-2022 Calcium [Mass/Vol] 9.2 mg/dL 8.5-10.1 [facility] Serum or plasma creatinine m easurement (mass/volume)Ordered By: Dr. Rodriguez on 05-26-2022 Creatinine [Mass/Vol] 1.20 mg/dL 0.70-1.30 [facility] Comment on above: The validity of the calculated GFR & GFRAA in patients over 70 years has not been determined. Clinical correlation is essential. Serum or plasma urea nitroge n measurement (mass/volume)Ordered By: Dr. Rodriguez on 05-26-2022 Urea nitrogen [Mass/Vol] 17 mg/dL 7-18 [facility] Squamous epithelial cells de tection in urine sediment by light microscopyOrdered By: Dr. Rodriguez on 05-26-2022 Epithelial cells.squamous LM Ql (Urine sed) 0 SEEN /hpf 0-5 [facility] Thin prep Papanicolaou smear with manual screeningOrdered By: Dr. Rodriguez on 05-26-2022 Thin prep Papanicolaou smear with manual screening 5 5-15 [facility] Urine blood detectionOrdered By: Dr. Rodriguez on 05-26-2022 RBC Ql (U) Negative Negative [facility] RBC Ql (U) 0 SEEN /hpf 0-5 [facility] Urine clarityOrdered By: Dr. Rodriguez on 05-26-2022 Clarity (U) Clear Clear [facility] Urine color determinationOrd ered By: Dr. Rodriguez on 05-26-2022 Color (U) Yellow Yellow [facility] Urine glucose detectionOrder ed By: Dr. Rodriguez on 05-26-2022 Glucose Ql (U) 1000 mg/dl Normal [facility] Urine leukocyte esterase det ection by dipstickOrdered By: Dr. Rodriguez on 05-26-2022 Leukocyte esterase Test strip Ql (U) Negative Negative [facility] Urine pHOrdered By: Dr. Wes helms on 05-26-2022 pH (U) 7.0 [pH] 5.0 - 8.0 [facility] Urine sediment bacteria coun t by microscopy (number/high power field)Ordered By: Dr. Rodriguez on 05-26-2022 Bacteria LM.HPF (Urine sed) [#/Area] 0 /[HPF] None Seen [facility] Urine specific gravity measu rementOrdered By: Dr. Rodriguez on 05-26-2022 Specific gravity (U) [Rel density] 1.010 1.002-1.03 0 [facility] Urobilinogen Auto test strip Ql (U)Ordered By: Dr. Rodriguez on 05-26-2022 Urobilinogen Ql (U) Normal mg/dl Normal [facility] Absolute lymphocyte countOrd ered By: Dr. Power on 03-24-2022 Lymphocytes Auto (Unsp spec) [#/Vol] 1.67 10*3/uL 0.83-4.51 [facility] Basophil percentageOrdered B y: Dr. Power on 03-24-2022 Basophils/100 WBC (Bld) 0.6 % 0-1 [facility] Bilirubin [Mass/Vol] 0.70 mg/dL 0.20-1.00 [facility] Comment on above: For patients on eltr ombopag therapy, use of Dimension [place] TBIL is not recommended. Chloride [Moles/Vol] 106 mmol/L 98-107 [facility] Eosinophils/100 WBC (Bld) 2.6 % 0-5 [facility] Glucose [Mass/Vol] 115 mg/dL 74-106 [facility] Comment on above: Fasting Glucose resu lt from 100 to 125 mg/dL suggests IMPAIRED HOMEOSTASIS per A.D.A. criteria. Neutrophils (Bld) [#/Vol] 4.3 10*3/uL 2.0-7.7 [facility] Neutrophils/100 WBC (Bld) 60.9 % 47-70 [facility] Potassium [Moles/Vol] 4.0 mmol/L 3.5-5.1 [facility] Protein [Mass/Vol] 7.5 g/dL 6.4-8.2 [facility] Sodium [Moles/Vol] 140 mmol/L 136-145 [facility] WBC (Bld) [#/Vol] 7.0 10*3/uL 4.4-11.0 [facility] Blood erythrocytes count (nu mber/volume)Ordered By: Dr. Power on 03-24-2022 RBC (Bld) [#/Vol] 5.53 10*6/uL 4.6-6.2 [facility] Blood hemoglobin measurement (mass/volume)Ordered By: Dr. Power on 03-24-2022 Hemoglobin (Bld) [Mass/Vol] 16.2 g/dL 13.0-16.5 [facility] Blood lymphocytes/100 leukoc ytesOrdered By: Dr. Power on 03-24-2022 Lymphocytes/100 WBC (Bld) 23.9 % 19-41 [facility] Blood monocytes/100 leukocyt esOrdered By: Dr. Power on 03-24-2022 Monocytes/100 WBC (Bld) 11.9 % 0-10 [facility] Blood platelet mean volumeOr dered By: Dr. Power on 03-24-2022 Platelet mean volume (Bld) [Entitic vol] 10.0 fL 6.2-12.0 [facility] Determination of erythrocyte mean corpuscular volume (MCV)Ordered By: Dr. Power on 03-24-2022 MCV (RBC) [Entitic vol] 87.3 fL 80-94 [facility] Direct bilirubinOrdered By: Dr. Power on 03-24-2022 Bilirubin.direct [Mass/Vol] 0.18 mg/dL 0.00-0.30 [facility] Hematocrit Auto (Bld) [Volum e fraction]Ordered By: Dr. Power on 03-24-2022 Hematocrit (Bld) [Volume fraction] 48.3 % 40-54 [facility] Laboratory - Chemistry and C hemistry - challengeOrdered By: Dr. Power on 03-24-2022 ALP [Catalytic activity/Vol] 53 U/L 45-117 [facility] ALT [Catalytic activity/Vol] 32 U/L 16-61 [facility] CO2 [Moles/Vol] 27.0 mmol/L 21.0-32.0 [facility] Globulin (S) [Mass/Vol] 3.5 g/dL 2.2-4.2 [facility] Lipase [Catalytic activity/Vol] 195 U/L 73-393 [facility] Magnesium [Mass/Vol] 2.4 mg/dL 1.6-2.6 [facility] Urea nitrogen/Creatinine [Mass ratio] 18.4 mg/mg 10-20 [facility] Laboratory - Hematology and Cell countsOrdered By: Dr. Power on 03-24-2022 Erythrocyte distribution width (RBC) [Entitic vol] 40.3 fL 35.1-43.9 [facility] Erythrocyte distribution width (RBC) [Ratio] 12.6 % 11.6-14.6 [facility] Immature granulocytes/100 WBC (Bld) 0.100 % 0.0-0.9 [facility] Comment on above: IG% - Immature Granu locytes (promyelocytes, myelocytes and metamyelocytes) > 1% indicates that a LEFT SHIFT is Present. MCH (RBC) [Entitic mass] 29.3 pg 27.0-32.0 [facility] Nucleated RBC/100 WBC (Bld) [Ratio] 0 % 0-5 [facility] MCHC Auto (RBC) [Mass/Vol]Or dered By: Dr. Power on 03-24-2022 MCHC (RBC) [Mass/Vol] 33.5 g/dL 32-36 [facility] No Panel InformationOrdered By: Dr. Power on 03-24-2022 Troponin I High Sensitivity 11 pg/mL 3.0-78.0 [facility] Comment on above: Please Note: New Annel t Units and Gender Specific Reference Ranges. For more information see Policy Stat Procedure [place] High Sensitivity Troponin (TNIH) and attachments. Estimated Creatinine Clearance Calc 77.06 ml/min [facility] Estimated GFR (MDRD) Amer 85 mL/min >60 [facility] Comment on above: GFR Calc Estimated GFR (MDRD) Non-Af Amer 70 mL/min >60 [facility] Comment on above: Non- GFR Calc Platelets bldOrdered By: Dr. Power on 03-24-2022 Platelets (Bld) [#/Vol] 158 10*3/uL 150-450 [facility] Serum or plasma albumin noy urement (mass/volume)Ordered By: Dr. Power on 03-24-2022 Albumin [Mass/Vol] 4.0 g/dL 3.2-5.0 [facility] Serum or plasma calcium noy urement (mass/volume)Ordered By: Dr. Power on 03-24-2022 Calcium [Mass/Vol] 8.8 mg/dL 8.5-10.1 [facility] Serum or plasma creatinine m easurement (mass/volume)Ordered By: Dr. Power on 03-24-2022 Creatinine [Mass/Vol] 1.14 mg/dL 0.70-1.30 [facility] Comment on above: The validity of the calculated GFR & GFRAA in patients over 70 years has not been determined. Clinical correlation is essential. Serum or plasma urea nitroge n measurement (mass/volume)Ordered By: Dr. Power on 03-24-2022 Urea nitrogen [Mass/Vol] 21 mg/dL 7-18 [facility] Thin prep Papanicolaou smear with manual screeningOrdered By: Dr. Power on 03-24-2022 Thin prep Papanicolaou smear with manual screening 13 U/L 15-37 [facility] Thin prep Papanicolaou smear with manual screening 7 5-15 [facility] Dilute Miguel Angel's viper venom timeon 01-31-2022 dRVVT Coag (PPP) [Time] 44.7 s 0.0-47.0 [facility] Thin prep Papanicolaou smear with manual screeningon 01-31-2022 Thin prep Papanicolaou smear with manual screening 40.6 sec 0.0-47.6 [facility] Thin prep Papanicolaou smear with manual screening 1.12 Ratio 0.00-1.34 [facility] Thin prep Papanicolaou smear with manual screening 35.7 sec 0.0-51.9 [facility] Thin prep Papanicolaou smear with manual screening Comment: . [facility] Comment on above: No lupus anticoagula nt was detected.Performed at: [facility] [id number] Director: Luis Alfaro MD, Phone: [phone] Thrombin time in platelet po or plasmaon 01-31-2022 Thrombin time Coag (PPP) [Time] 20.3 sec 0.0-23.0 [facility] EP PanelOrdered By: Adi patino on 01-15-2022 Gastrointestinal pathogens panel GITA+probe (Stl) [facility] Absolute lymphocyte countOrd ered By: Adi Nevarez on 11-18-2022 Lymphocytes Auto (Unsp spec) [#/Vol] 0.97 10*3/uL 0.83-4.51 [facility] Basophil percentageOrdered B y: Adi Nevarez on 01-14-2022 Basophil percentage 0 SEEN /hpf 0-5 [facility] Basophils/100 WBC (Bld) 0.3 % 0-1 [facility] Bilirubin [Mass/Vol] 0.90 mg/dL 0.20-1.00 [facility] Comment on above: For patients on eltr ombopag therapy, use of Dimension [place] TBIL is not recommended. Chloride [Moles/Vol] 102 mmol/L 98-107 [facility] Eosinophils/100 WBC (Bld) 0.8 % 0-5 [facility] Glucose [Mass/Vol] 116 mg/dL 74-106 [facility] Comment on above: Fasting Glucose resu lt from 100 to 125 mg/dL suggests IMPAIRED HOMEOSTASIS per A.D.A. criteria. Neutrophils (Bld) [#/Vol] 4.4 10*3/uL 2.0-7.7 [facility] Neutrophils/100 WBC (Bld) 68.1 % 47-70 [facility] Potassium [Moles/Vol] 3.6 mmol/L 3.5-5.1 [facility] Protein [Mass/Vol] 7.8 g/dL 6.4-8.2 [facility] Sodium [Moles/Vol] 137 mmol/L 136-145 [facility] WBC (Bld) [#/Vol] 6.5 10*3/uL 4.4-11.0 [facility] Lactate [Moles/Vol] 0.7 mmol/L 0.4-2.0 [facility] Bilirubin Test strip Ql (U)O rdered By: Adi Nevarez on 01-14-2022 Bilirubin Ql (U) Negative Negative [facility] Blood erythrocytes count (nu mber/volume)Ordered By: Adi Nevarez on 01-14-2022 RBC (Bld) [#/Vol] 5.79 10*6/uL 4.6-6.2 [facility] Blood hemoglobin measurement (mass/volume)Ordered By: Adi Nevarez on 01-14-2022 Hemoglobin (Bld) [Mass/Vol] 16.7 g/dL 13.0-16.5 [facility] Blood lymphocytes/100 leukoc ytesOrdered By: Adi Nevarez on 01-14-2022 Lymphocytes/100 WBC (Bld) 14.9 % 19-41 [facility] Blood monocytes/100 leukocyt esOrdered By: Adi Nevarez on 01-14-2022 Monocytes/100 WBC (Bld) 15.7 % 0-10 [facility] Blood platelet mean volumeOr dered By: Adi Nevarez on 01-14-2022 Platelet mean volume (Bld) [Entitic vol] 10.1 fL 6.2-12.0 [facility] Determination of erythrocyte mean corpuscular volume (MCV)Ordered By: Adi Nevarez on 01-14-2022 MCV (RBC) [Entitic vol] 85.0 fL 80-94 [facility] Hematocrit Auto (Bld) [Volum e fraction]Ordered By: Adi Nevarez on 01-14-2022 Hematocrit (Bld) [Volume fraction] 49.2 % 40-54 [facility] INR in Blood by Coagulation assayOrdered By: Adi Nevarez on 01-14-2022 INR Coag (Bld) [Relative time] 1.1 {INR} [facility] Ketones Test strip Ql (U)Ord ered By: Adi Nevarez on 01-14-2022 Ketones Ql (U) 5 mg/dl Negative [facility] Laboratory - Chemistry and C hemistry - challengeOrdered By: Adi Nevarez on 01-14-2022 ALP [Catalytic activity/Vol] 51 U/L 45-117 [facility] ALT [Catalytic activity/Vol] 51 U/L 16-61 [facility] CO2 [Moles/Vol] 27.0 mmol/L 21.0-32.0 [facility] Globulin (S) [Mass/Vol] 3.5 g/dL 2.2-4.2 [facility] Lipase [Catalytic activity/Vol] 72 U/L 73-393 [facility] Urea nitrogen/Creatinine [Mass ratio] 19.3 mg/mg 10-20 [facility] Laboratory - CoagulationOrde red By: Adi Nevarez on 01-14-2022 PT Coag (PPP) [Time] 14.0 s 11.7-14.9 [facility] Laboratory - Hematology and Cell countsOrdered By: Adi Nevarez on 01-14-2022 Erythrocyte distribution width (RBC) [Entitic vol] 39.5 fL 35.1-43.9 [facility] Erythrocyte distribution width (RBC) [Ratio] 13.0 % 11.6-14.6 [facility] Immature granulocytes/100 WBC (Bld) 0.200 % 0.0-0.9 [facility] Comment on above: IG% - Immature Granu locytes (promyelocytes, myelocytes and metamyelocytes) > 1% indicates that a LEFT SHIFT is Present. MCH (RBC) [Entitic mass] 28.8 pg 27.0-32.0 [facility] Nucleated RBC/100 WBC (Bld) [Ratio] 0 % 0-5 [facility] MCHC Auto (RBC) [Mass/Vol]Or dered By: Adi Nevarez on 01-14-2022 MCHC (RBC) [Mass/Vol] 33.9 g/dL 32-36 [facility] Mucus LM Ql (Urine sed)Order ed By: Adi Nevarez on 01-14-2022 Mucus Ql (Urine sed) 0 SEEN /hpf [facility] Nitrite Test strip Ql (U)Ord ered By: Adi Nevarez on 01-14-2022 Nitrite Ql (U) Negative Negative [facility] No Panel InformationOrdered By: Adi Nevarez on 01-14-2022 Estimated Creatinine Clearance Calc 80.60 ml/min [facility] Estimated GFR (MDRD) Amer 90 mL/min >60 [facility] Comment on above: GFR Calc Estimated GFR (MDRD) Non-Af Amer 74 mL/min >60 [facility] Comment on above: Non- GFR Calc Platelets bldOrdered By: Randa Nevarez on 01-14-2022 Platelets (Bld) [#/Vol] 144 10*3/uL 150-450 [facility] Protein Test strip Ql (U)Ord ered By: Adi Nevarez on 01-14-2022 Protein Ql (U) Negative Negative [facility] Serum or plasma albumin noy urement (mass/volume)Ordered By: Adi Nevarez on 01-14-2022 Albumin [Mass/Vol] 4.3 g/dL 3.2-5.0 [facility] Serum or plasma albumin/glob ulin mass ratioOrdered By: Adi Nevarez on 01-14-2022 Albumin/Globulin [Mass ratio] 1.2 {ratio} 0.9-2.4 [facility] Serum or plasma calcium noy urement (mass/volume)Ordered By: Adi Nevarez on 01-14-2022 Calcium [Mass/Vol] 9.0 mg/dL 8.5-10.1 [facility] Serum or plasma creatinine m easurement (mass/volume)Ordered By: Adi Nevarez on 01-14-2022 Creatinine [Mass/Vol] 1.09 mg/dL 0.70-1.30 [facility] Comment on above: The validity of the calculated GFR & GFRAA in patients over 70 years has not been determined. Clinical correlation is essential. Serum or plasma urea nitroge n measurement (mass/volume)Ordered By: Adi Nevarez on 01-14-2022 Urea nitrogen [Mass/Vol] 21 mg/dL 7- [facility] Squamous epithelial cells de tection in urine sediment by light microscopyOrdered By: Adi Nevarez on 01-14-2022 Epithelial cells.squamous LM Ql (Urine sed) 0 SEEN /hpf 0-5 [facility] Thin prep Papanicolaou smear with manual screeningOrdered By: Adi Nevarez on 01-14-2022 Thin prep Papanicolaou smear with manual screening 28 U/L 15-37 [facility] Thin prep Papanicolaou smear with manual screening 8 5-15 [facility] Urine blood detectionOrdered By: Adi Nevarez on 01-14-2022 RBC Ql (U) 10 /ul Negative [facility] RBC Ql (U) 0 SEEN /hpf 0-5 [facility] Urine clarityOrdered By: Randa Nevarez on 01-14-2022 Clarity (U) Clear Clear [facility] Urine color determinationOrd ered By: Adi Nevarez on 01-14-2022 Color (U) Straw Yellow [facility] Urine glucose detectionOrder ed By: Adi Nevarez on 01-14-2022 Glucose Ql (U) 1000 mg/dl Normal [facility] Urine leukocyte esterase det ection by dipstickOrdered By: Adi Nevarez on 01-14-2022 Leukocyte esterase Test strip Ql (U) Negative Negative [facility] Urine pHOrdered By: Adi patino on 01-14-2022 pH (U) 6.0 [pH] 5.0 - 8.0 [facility] Urine sediment bacteria coun t by microscopy (number/high power field)Ordered By: Adi Nevarez on 01-14-2022 Bacteria LM.HPF (Urine sed) [#/Area] 0 /[HPF] None Seen [facility] Urine specific gravity measu rementOrdered By: Adi Nevarez on 01-14-2022 Specific gravity (U) [Rel density] 1.015 1.002-1.03 0 [facility] Urobilinogen Auto test strip Ql (U)Ordered By: Adi Nevarez on 01-14-2022 Urobilinogen Ql (U) Normal mg/dl Normal [facility] Absolute lymphocyte countOrd ered By: Melania Sanders on 01-05-2022 Lymphocytes Auto (Unsp spec) [#/Vol] 1.37 10*3/uL 0.83-4.51 [facility] Basophil percentageOrdered B y: Melania Sanders on 01-05-2022 Basophils/100 WBC (Bld) 0.5 % 0-1 [facility] Bilirubin [Mass/Vol] 0.80 mg/dL 0.20-1.00 [facility] Comment on above: For patients on eltr ombopag therapy, use of Dimension [place] TBIL is not recommended. Chloride [Moles/Vol] 103 mmol/L 98-107 [facility] Cholesterol [Mass/Vol] 149 mg/dL <200 [facility] Comment on above: <200 mg/dL Desirable 200-240 mg/dL Borderline >240 mg/dL High Risk Eosinophils/100 WBC (Bld) 2.0 % 0-5 [facility] Glucose [Mass/Vol] 101 mg/dL 74-106 [facility] Comment on above: Fasting Glucose resu lt from 100 to 125 mg/dL suggests IMPAIRED HOMEOSTASIS per A.D.A. criteria. Neutrophils (Bld) [#/Vol] 4.3 10*3/uL 2.0-7.7 [facility] Neutrophils/100 WBC (Bld) 66.4 % 47-70 [facility] Potassium [Moles/Vol] 3.6 mmol/L 3.5-5.1 [facility] Protein [Mass/Vol] 7.8 g/dL 6.4-8.2 [facility] Sodium [Moles/Vol] 138 mmol/L 136-145 [facility] Triglyceride [Mass/Vol] 137 mg/dL <199 [facility] Comment on above: The drugs N-Acetylcy steine and Metamizole may falsely depress this assay.Serum Triglycerides Reference Interval Normal <150 mg/dL Borderline high 150 - 199 mg/dL High 200 - 499 mg/dL Very High > or = 500 mg/dL WBC (Bld) [#/Vol] 6.4 10*3/uL 4.4-11.0 [facility] Blood erythrocytes count (nu mber/volume)Ordered By: Melania Sanders on 01-05-2022 RBC (Bld) [#/Vol] 5.50 10*6/uL 4.6-6.2 [facility] Blood hemoglobin measurement (mass/volume)Ordered By: Melania Sanders on 01-05-2022 Hemoglobin (Bld) [Mass/Vol] 16.1 g/dL 13.0-16.5 [facility] Blood lymphocytes/100 leukoc ytesOrdered By: Melania Sanders on 01-05-2022 Lymphocytes/100 WBC (Bld) 21.3 % 19-41 [facility] Blood monocytes/100 leukocyt esOrdered By: Melania Sanders on 01-05-2022 Monocytes/100 WBC (Bld) 9.5 % 0-10 [facility] Blood or tissue coagulation factor II targeted mutation analysis by molecular geneticOrdered By: Melania Sanders on 01-05-2022 F2 gene targeted mutation analysis [employer] Nom (Bld/Tiss) Comment . [facility] Comment on above: Result: c.*97G>A - N ot DetectedThis result is not associated with an increased risk for venousthromboembolism. See Additional Clinical Information andComments.Additional Clinical Information:Venous thromboembolism is a multifactorial disease influenced bygenetic, environmental, and circumstantial risk factors. The c.*97G>Avariant in the F2 gene is a genetic risk factor for venousthromboembolism. Heterozygous carriers have a 2- to 4-fold increasedrisk for venous thromboembolism. Homozygotes for the c.*97G>A variantare rare. The annual risk of VTE in homozygotes has been reported sedrick 1.1%/year. Individuals who carry both a c.*97G>A variant in theF2 gene and a c.1601G>A (p. [id number]) variant in the F5 gene(commonly referred to as Factor V Leiden) have an approximately 20-fold increased risk for venous thromboembolism. Risks are likely sedrick even higher in more complex genotype combinations involving theF2 c.*97G>A variant and Factor V Leiden (PMID: 29084641). Additionalrisk factors include but are not limited to: deficiency of protein C,protein S, or antithrombin III, age, male sex, personal or familyhistory of deep vein thromboembolism, smoking, surgery, prolongedimmobilization, malignant neoplasm, tamoxifen treatment, raloxifenetreatment, oral contraceptive use, hormone replacement therapy, andpregnancy. Management of thrombotic risk and thrombotic events shouldfollow established guidelines and fit the clinical circumstance. Thisresult cannot predict the occurrence or recurrence of a thromboticevent.Comments:Genetic counseling is recommended to discuss the potential clinicalimplications of positive results, as well as recommendations fortesting family members.Genetic Coordinators are available for health care providers to discussresults at [phone] ([phone] Details:Variant analyzed: c.*97G>A, previously referred to as [id number]/Limitations:DNA analysis of the F2 gene (NM_000506.5) was performed by PCRamplification followed by restriction enzyme analysis. The diagnosticsensitivity is >99%. Results must be combined with clinicalinformation for the most accurate interpretation. Molecular-basedtesting is highly accurate, but as in any laboratory test, diagnosticerrors may occur. False positive or false negative results may occurfor reasons that include genetic variants, blood transfusions, bonemarrow transplantation, somatic or tissue-specific mosaicism,mislabeled samples, or erroneous representation of familyrelationships.This test was developed and its performance characteristics determinedby [employer]. It has not been cleared or approved by the Food and DrugAdministration.References:Ward S, Mahsa STOUT, Harinder R, Ashley WW, Jed JH; ACM[employer] ProfessionalPractice and Guidelines Committee. Addendum: [place] [employer] consensus statement on factor V Leiden mutationtesting. St[employer]. 2020May 01. doi: 10.1038/y69606-236-85614-k.PMID: 36564985.Leland SCHMIDT. Prothrombin Thrombophilia. 2005Sep 20[Updated 2020Apr 02]. In: Fredo MP, Ciro HH, Bo RA, et al.,editors. John(R) [Internet]. [place] ([place]): [facility]; 2292-5419. Available from:https://www.ncbi.nlm.nih.gov/books/GBO4184/James S, Mahsa STOUT, Pablo X, Aldo B, Shahzad EB, Kika P, Jazmín POTTER;[facility] Vegetable Cutter Committee. Venous thromboembolismlaboratory testing (factor V Leiden and factor II c.*97G>A),2018 update: a technical standard of the [place] [employer] ([employer]). Stacy Med. 2018 Jan;20(12):4009-7073.doi: 10.1038/r55286-306-9910-q. Epub 2017Dec 01. PMID: 40698143.Adrienne Carballo, PhD, Kishore Burgess PhDGreg Shields, PhD, Kory Garcia, PhD, Christel Anand, PhD, SOILA Caicedo, PhD, Katherine Warner, PhD, Lynn Chakraborty, PhD, [facility] Blood platelet mean volumeOr dered By: Melania Sanders on 01-05-2022 Platelet mean volume (Bld) [Entitic vol] 9.8 fL 6.2-12.0 [facility] Determination of erythrocyte mean corpuscular volume (MCV)Ordered By: Melania Sanders on 01-05-2022 MCV (RBC) [Entitic vol] 84.5 fL 80-94 [facility] Dilute Miguel Angel's viper venom timeOrdered By: Melania Sanders on 01-05-2022 dRVVT Coag (PPP) [Time] 47.6 s 0.0-47.0 [facility] Hematocrit Auto (Bld) [Volum e fraction]Ordered By: Melania Sanders on 01-05-2022 Hematocrit (Bld) [Volume fraction] 46.5 % 40-54 [facility] Laboratory - Chemistry and C hemistry - challengeOrdered By: [facility] on 01-05-2022 ALP [Catalytic activity/Vol] 54 U/L 45-117 [facility] ALT [Catalytic activity/Vol] 42 U/L 16-61 [facility] CO2 [Moles/Vol] 26.0 mmol/L 21.0-32.0 [facility] Globulin (S) [Mass/Vol] 3.6 g/dL 2.2-4.2 [facility] Urea nitrogen/Creatinine [Mass ratio] 21.0 mg/mg 10-20 [facility] Laboratory - Hematology and Cell countsOrdered By: Mel[facility] on 01-05-2022 Erythrocyte distribution width (RBC) [Entitic vol] 39.9 fL 35.1-43.9 [facility] Erythrocyte distribution width (RBC) [Ratio] 13.2 % 11.6-14.6 [facility] Immature granulocytes/100 WBC (Bld) 0.300 % 0.0-0.9 [facility] Comment on above: IG% - Immature Granu locytes (promyelocytes, myelocytes and metamyelocytes) > 1% indicates that a LEFT SHIFT is Present. MCH (RBC) [Entitic mass] 29.3 pg 27.0-32.0 [facility] Nucleated RBC/100 WBC (Bld) [Ratio] 0 % 0-5 [facility] MCHC Auto (RBC) [Mass/Vol]Or dered By: Melania Sanders on 01-05-2022 MCHC (RBC) [Mass/Vol] 34.6 g/dL 32-36 [facility] No Panel InformationOrdered By: Melaniamirella Sanders on 01-05-2022 Anti-Cardiolipin IgM Antibody < 9 MPL U/mL 0-12 [facility] Comment on above: Negative: <13 Indete rminate: 13 - 20 Low-Med Positive: >20 - 80 High Positive: >80 Coagulation Factor VIII Activity 112 % 56-140 [facility] Estimated GFR (MDRD) Amer 100 mL/min >60 [facility] Comment on above: GFR Calc Estimated GFR (MDRD) Non-Af Amer 82 mL/min >60 [facility] Comment on above: Non- GFR Calc Factor V Leiden Mutation Comment . [facility] Comment on above: Result: c.1601G>A (p .[id number]) - Not DetectedThis result is not associated with an increased risk for venousthromboembolism. See Additional Clinical Information andComments.Additional Clinical Information:Venous thromboembolism is a multifactorial diseaseinfluenced by genetic, environmental, and circumstantialrisk factors. The c.1601G>A (p. [id number]) variant in theF5 gene, commonly referred to as Factor V Leiden, is agenetic risk factor for venous thromboembolism.Heterozygous carriers of this variant have a 6- to 8-foldincreased risk for venous thromboembolism. Individualshomozygous for this variant (ie, with a copy of the varianton each chromosome) have an approximately 80-fold increasedrisk for venous thromboembolism. Individuals who carry rosas c.*97G>A variant in the F2 gene and Factor V Leiden havean approximately 20-fold increased risk for venousthromboembolism. Risks are likely to be even higher in morecomplex genotype combinations involving the F2 c.*97G>Avariant and Factor V Leiden (PMID: [id number]). Additionalrisk factors include but are not limited to: deficiency ofprotein C, protein S, or antithrombin III, age, male sex,personal or family history of deep vein thromboembolism,smoking, surgery, prolonged immobilization, malignantneoplasm, tamoxifen treatment, raloxifene treatment, oralcontraceptive use, hormone replacement therapy, andpregnancy. Management of thrombotic risk and thromboticevents should follow established guidelines and fit theclinical circumstance. This result cannot predict theoccurrence or recurrence of a thrombotic event.Comment:Genetic counseling is recommended to discuss thepotential clinical implications of positive results, aswell as recommendations for testing family members.Genetic Coordinators are available for health careproviders to discuss results at [phone] Details:Variant Analyzed: c.1601G>A (p. [id number]), referred toas Factor V LeidenMethods/Limitations:DNA analysis of the F5 gene (NM_000130.5) was performedby PCR amplification followed by restriction enzymeanalysis. The diagnostic sensitivity is >99%. Results mustbe combined with clinical information for the most accurateinterpretation. Molecular-based testing is highly accurate,but as in any laboratory test, diagnostic errors may occur.False positive or false negative results may occur forreasons that include genetic variants, blood transfusions,bone marrow transplantation, somatic or tissue-specificmosaicism, mislabeled samples, or erroneous representationof family relationships.This test was developed and its performance characteristicsdetermined by [employer]. It has not been cleared orapproved by the Food and Drug Administration.References:Ward Escobedo, Mahsa STOUT, Harinder R, Ashley WW, Jed STONER; ACMGProfessional Practice and Guidelines Committee. Addendum:[employer] [employer] consensus statement onfactor V Leiden mutation testing. Stacy Med. 2020May 01.doi: 10.1038/[id number]-l. PMID: 10468490.Leland SCHMIDT. Factor V Leiden Thrombophilia. 1998July 10[Updated 2017Mar 02]. In: Fredo MP, Ciro HH, Bo RA,et al., editors. John(R) [Internet]. [place] ([place]):[facility]; 7005-0643. Availablefrom: https://www.ncbi.nlm.nih.gov/books/KDP8817/James Escobedo, Mahsa STOUT, Pablo X, Aldo B, Shahzad EB, Kika P,Jazmín CS; ACMG Laboratory Vegetable Cutter Committee.Venous thromboembolism laboratory testing (factor V Leidenand factor II c.*97G>A), 2018 update: a technical standardof the [employer] [employer](ACMG). Stacy Med. 2017;20(12):1449-8700. doi:10.1038/[id number]-r. Epub 2017Dec 01. PMID: 40936939.Adrienne Carballo, PhD, Kishore Burgess, PhDGreg Shields, PhD, Kory Garcia, PhD, Christel Anand, PhD, FACW Amanda Caicedo, PhD, Katherine Warner, PhD, Lynn Chakraborty, PhD, [facility] Homocysteine 9.4 umol/L 3.2-10.7 [facility] Platelet poor plasma antithr ombin actual/normal ratio by chromogenic method (relativeOrdered By: Melania Sanders on 01-05-2022 Antithrombin actual/normal Chromogenic method (PPP) [Rel catalytic activity/Vol] 95 % 75-135 [facility] Comment on above: Direct Xa inhibitor anticoagulants such as rivaroxaban,apixaban and edoxaban will lead to spuriously elevatedantithrombin activity levels possibly masking a deficiency. Platelet poor plasma antithr ombin antigen detection by immunoassayOrdered By: Melania Sanders on 01-05-2022 Antithrombin Ag IA Ql (PPP) 85 % 72-124 [facility] Comment on above: This test was kathrineeljoanne mane and its performance characteristicsdetermined by [employer]. It has not been cleared orapproved by the Food and Drug Administration. Platelets bldOrdered By: Dustin Sanders on 01-05-2022 Platelets (Bld) [#/Vol] 140 10*3/uL 150-450 [facility] Protein C antigen assayOrder ed By: Melania Sanders on 01-05-2022 Protein C Ag actual/normal IA (PPP) [Relative mass conc] 97 % 60-150 [facility] Protein S measurement in cesario telet poor plasma by coagulation assay (units/volume)Ordered By: Melania Sanders on 01-05-2022 Protein S Coag Qn (PPP) 96 % 60-150 [facility] Comment on above: This test was develo ped and its performance characteristicsdetermined by [employer]. It has not been cleared orapproved by the Food and Drug Administration. Protein S, freeOrdered By: Lionel Sanders on 01-05-2022 Protein S Free Ag IA Qn (PPP) 95 % 61-136 [facility] Serum beta 2 glycoprotein 1 IgA antibody detectionOrdered By: Melania Sanders on 01-05-2022 Beta 2 glycoprotein 1 IgA Ql (S) <9 0-25 [facility] Comment on above: Result Units: GPI Ig A unitsThe reference interval reflects a 3SD or 99th percentileinterval, which is thought to represent a potentiallyclinically significant result in accordance with theInternational Consensus Statement on the classificationcriteria for definitive antiphospholipid syndrome (APS). JThromb Haem 2006;4:295-306. Serum beta 2 glycoprotein 1 IgG antibody detectionOrdered By: Melania Sanders on 01-05-2022 Beta 2 glycoprotein 1 IgG Ql (S) <9 0-20 [facility] Comment on above: Result Units: GPI Ig G unitsThe reference interval reflects a 3SD or 99th percentileinterval, which is thought to represent a potentiallyclinically significant result in accordance with theInternational Consensus Statement on the classificationcriteria for definitive antiphospholipid syndrome (APS). JThromb Haem 2006;4:295-306. Serum beta 2 glycoprotein 1 IgM antibody detectionOrdered By: Melania Sanders on 01-05-2022 Beta 2 glycoprotein 1 IgM Ql (S) <9 0-32 [facility] Comment on above: Result Units: GPI Ig M unitsThe reference interval reflects a 3SD or 99th percentileinterval, which is thought to represent a potentiallyclinically significant result in accordance with theInternational Consensus Statement on the classificationcriteria for definitive antiphospholipid syndrome (APS). JThromb Haem 2006;4:295-306. Serum cardiolipin IgG antibo dy assay by immunoassay (units/volume)Ordered By: Melania Sanders on 01-05-2022 Cardiolipin IgG IA Qn (S) < 9 GPL U/mL 0-14 [facility] Comment on above: Negative: <15 Indete rminate: 15 - 20 Low-Med Positive: >20 - 80 High Positive: >80 Serum or plasma albumin noy urement (mass/volume)Ordered By: Melania Sanders on 01-05-2022 Albumin [Mass/Vol] 4.2 g/dL 3.2-5.0 [facility] Serum or plasma albumin/glob ulin mass ratioOrdered By: Melania Sanders on 01-05-2022 Albumin/Globulin [Mass ratio] 1.2 {ratio} 0.9-2.4 [facility] Serum or plasma calcium noy urement (mass/volume)Ordered By: Melania Sanders on 01-05-2022 Calcium [Mass/Vol] 8.8 mg/dL 8.5-10.1 [facility] Serum or plasma cardiolipin IgA antibody assay (units/volume)Ordered By: Melania Sanders on 01-05-2022 Cardiolipin IgA Qn < 9 APL U/mL 0-11 [facility] Comment on above: Negative: <12 Indete rminate: 12 - 20 Low-Med Positive: >20 - 80 High Positive: >80 Serum or plasma cholesterol in HDL measurement (mass/volume)Ordered By: Melania Sanders on 01-05-2022 Cholesterol in HDL [Mass/Vol] 33 mg/dL >40 [facility] Comment on above: The drugs N-Acetylcy steine and Metamizole may falsely depress this assay. Reference Range HDL <40 mg/dL Low HDL Cholesterol HDL >or= 60 mg/dL High HDL Cholesterol Serum or plasma cholesterol in VLDL measurement (mass/volume)Ordered By: Melania Sanders on 01-05-2022 Cholesterol in VLDL [Mass/Vol] 27 mg/dL 5-40 [facility] Serum or plasma creatinine m easurement (mass/volume)Ordered By: Melania Sanders on 01-05-2022 Creatinine [Mass/Vol] 1.00 mg/dL 0.70-1.30 [facility] Comment on above: The validity of the calculated GFR & GFRAA in patients over 70 years has not been determined. Clinical correlation is essential. Serum or plasma low density lipoprotein (LDL) cholesterol measurement (mass/volume)Ordered By: Melania Sanders on 01-05-2022 Cholesterol in LDL [Mass/Vol] 89 mg/dL 0-130 [facility] Serum or plasma urea nitroge n measurement (mass/volume)Ordered By: Melania Sanders on 01-05-2022 Urea nitrogen [Mass/Vol] 21 mg/dL 7-18 [facility] Thin prep Papanicolaou smear with manual screeningOrdered By: Melania Sanders on 01-05-2022 Thin prep Papanicolaou smear with manual screening 26 U/L 15-37 [facility] Thin prep Papanicolaou smear with manual screening 9 5-15 [facility] Thin prep Papanicolaou smear with manual screening 45.1 sec 0.0-47.6 [facility] Thin prep Papanicolaou smear with manual screening 1.21 Ratio 0.00-1.34 [facility] Thin prep Papanicolaou smear with manual screening 35.8 sec 0.0-51.9 [facility] Thin prep Papanicolaou smear with manual screening Comment: . [facility] Comment on above: Results are consiste nt with the presence of a lupus anticoagulant. As onlypersistent lupus anticoagulant (LA) positivity meets laboratory diagnosticcriteria for antiphospholipid syndrome, repeat testing in 12 or more weeksis recommended, ideally in the absence of anticoagulant therapy.Important Note: The results of LA testing are not valid for patientsreceiving heparin, direct Xa inhibitor (e.g., rivaroxaban, apixaban) ordirect thrombin inhibitor (e.g., dabigatran) therapy. These drugs may causefalse positive LA results but will not interfere with anticardiolipin andbeta-2 glycoprotein 1 antibody testing. Thrombin time in platelet po or plasmaOrdered By: Melania Sanders on 01-05-2022 Thrombin time Coag (PPP) [Time] 18.8 sec 0.0-23.0 [facility] Von Willebrand factor (vWF) ristocetin cofactor actual/normal in platelet poor plasmaOrdered By: Melania Sanders on 01-05-2022 vWf ristocetin cofactor act actual/normal Platelet aggregation (PPP) [Relative time] 85 % 50-200 [facility] Comment on above: Performed at: [address] [id number] Director: Luis Alfaro MD, Phone: [phone] at: - [facility] [id number] Director: Jethro Saenz PhD, Phone: [phone] at: TG - [facility] [id number] [place], [place] [id number] Director: Fabián Wright [facility], Phone: [phone] Culture, urineOrdered By: Ra yoana Sanders on 12-02-2021 Bacteria identified Cx Nom (U) Culture exhibits no growth. [facility] Absolute lymphocyte countOrd ered By: Dr. Phillips on 12-01-2021 Lymphocytes Auto (Unsp spec) [#/Vol] 1.63 10*3/uL 0.83-4.51 [facility] Basophil percentageOrdered B y: Dr. Phillips on 12-01-2021 Basophils/100 WBC (Bld) 0.5 % 0-1 [facility] Bilirubin [Mass/Vol] 0.50 mg/dL 0.20-1.00 [facility] Comment on above: For patients on eltr ombopag therapy, use of Dimension [place] TBIL is not recommended. Chloride [Moles/Vol] 109 mmol/L 98-107 [facility] Cholesterol [Mass/Vol] 114 mg/dL <200 [facility] Comment on above: <200 mg/dL Desirable 200-240 mg/dL Borderline >240 mg/dL High Risk Eosinophils/100 WBC (Bld) 4.0 % 0-5 [facility] Glucose [Mass/Vol] 96 mg/dL 74-106 [facility] Neutrophils (Bld) [#/Vol] 3.9 10*3/uL 2.0-7.7 [facility] Neutrophils/100 WBC (Bld) 60.4 % 47-70 [facility] Potassium [Moles/Vol] 4.2 mmol/L 3.5-5.1 [facility] Protein [Mass/Vol] 6.8 g/dL 6.4-8.2 [facility] Sodium [Moles/Vol] 142 mmol/L 136-145 [facility] Triglyceride [Mass/Vol] 115 mg/dL <199 [facility] Comment on above: The drugs N-Acetylcy steine and Metamizole may falsely depress this assay.Serum Triglycerides Reference Interval Normal <150 mg/dL Borderline high 150 - 199 mg/dL High 200 - 499 mg/dL Very High > or = 500 mg/dL WBC (Bld) [#/Vol] 6.5 10*3/uL 4.4-11.0 [facility] Blood erythrocytes count (nu mber/volume)Ordered By: Dr. Phillips on 12-01-2021 RBC (Bld) [#/Vol] 5.43 10*6/uL 4.6-6.2 [facility] Blood hemoglobin measurement (mass/volume)Ordered By: Dr. Phillips on 12-01-2021 Hemoglobin (Bld) [Mass/Vol] 15.4 g/dL 13.0-16.5 [facility] Blood lymphocytes/100 leukoc ytesOrdered By: Dr. Phillips on 12-01-2021 Lymphocytes/100 WBC (Bld) 25.1 % 19-41 [facility] Blood monocytes/100 leukocyt esOrdered By: Dr. Phillips on 12-01-2021 Monocytes/100 WBC (Bld) 9.7 % 0-10 [facility] Blood platelet mean volumeOr dered By: Dr. Phillips on 12-01-2021 Platelet mean volume (Bld) [Entitic vol] 9.7 fL 6.2-12.0 [facility] Determination of erythrocyte mean corpuscular volume (MCV)Ordered By: Dr. Phillips on 12-01-2021 MCV (RBC) [Entitic vol] 84.5 fL 80-94 [facility] Glucose Glucometer (BldC) [M ass/Vol]Ordered By: Dr. Dunbar on 12-01-2021 Glucose [Mass/Vol] 110 mg/dL 74-106 [facility] Comment on above: MANAGEMENT OF PATIEN T CARE PER NURSING PROTOCOL Hematocrit Auto (Bld) [Volum e fraction]Ordered By: Dr. Phillips on 12-01-2021 Hematocrit (Bld) [Volume fraction] 45.9 % 40-54 [facility] Laboratory - Chemistry and C hemistry - challengeOrdered By: Dr. Phillips on 12-01-2021 ALP [Catalytic activity/Vol] 49 U/L 45-117 [facility] ALT [Catalytic activity/Vol] 12 U/L 16-61 [facility] CO2 [Moles/Vol] 27.0 mmol/L 21.0-32.0 [facility] Globulin (S) [Mass/Vol] 3.3 g/dL 2.2-4.2 [facility] Urea nitrogen/Creatinine [Mass ratio] 17.5 mg/mg 10-20 [facility] Laboratory - Hematology and Cell countsOrdered By: Dr. Phillips on 12-01-2021 Erythrocyte distribution width (RBC) [Entitic vol] 38.3 fL 35.1-43.9 [facility] Erythrocyte distribution width (RBC) [Ratio] 12.6 % 11.6-14.6 [facility] Immature granulocytes/100 WBC (Bld) 0.300 % 0.0-0.9 [facility] Comment on above: IG% - Immature Granu locytes (promyelocytes, myelocytes and metamyelocytes) > 1% indicates that a LEFT SHIFT is Present. MCH (RBC) [Entitic mass] 28.4 pg 27.0-32.0 [facility] Nucleated RBC/100 WBC (Bld) [Ratio] 0 % 0-5 [facility] MCHC Auto (RBC) [Mass/Vol]Or dered By: Dr. Phillips on 12-01-2021 MCHC (RBC) [Mass/Vol] 33.6 g/dL 32-36 [facility] No Panel InformationOrdered By: Dr. Phillips on 12-01-2021 Estimated Creatinine Clearance Calc 96.54 ml/min [facility] Estimated GFR (MDRD) Amer 110 mL/min >60 [facility] Comment on above: GFR Calc Estimated GFR (MDRD) Non-Af Amer 91 mL/min >60 [facility] Comment on above: Non- GFR Calc Thyroid Stimulating Hormone (TSH) 1.40 uIU/mL 0.358-3.74 [facility] Platelets bldOrdered By: Dr. Phillips on 12-01-2021 Platelets (Bld) [#/Vol] 167 10*3/uL 150-450 [facility] Serum or plasma albumin noy urement (mass/volume)Ordered By: Dr. Phillips on 12-01-2021 Albumin [Mass/Vol] 3.5 g/dL 3.2-5.0 [facility] Serum or plasma albumin/glob ulin mass ratioOrdered By: Dr. Phillips on 12-01-2021 Albumin/Globulin [Mass ratio] 1.1 {ratio} 0.9-2.4 [facility] Serum or plasma calcium noy urement (mass/volume)Ordered By: Dr. Phillips on 12-01-2021 Calcium [Mass/Vol] 8.5 mg/dL 8.5-10.1 [facility] Serum or plasma cholesterol in HDL measurement (mass/volume)Ordered By: Dr. Phillips on 12-01-2021 Cholesterol in HDL [Mass/Vol] 29 mg/dL >40 [facility] Comment on above: The drugs N-Acetylcy steine and Metamizole may falsely depress this assay. Reference Range HDL <40 mg/dL Low HDL Cholesterol HDL >or= 60 mg/dL High HDL Cholesterol Serum or plasma cholesterol in VLDL measurement (mass/volume)Ordered By: Dr. Phillips on 12-01-2021 Cholesterol in VLDL [Mass/Vol] 23 mg/dL 5-40 [facility] Serum or plasma creatinine m easurement (mass/volume)Ordered By: Dr. Phillips on 12-01-2021 Creatinine [Mass/Vol] 0.91 mg/dL 0.70-1.30 [facility] Comment on above: The validity of the calculated GFR & GFRAA in patients over 70 years has not been determined. Clinical correlation is essential. Serum or plasma low density lipoprotein (LDL) cholesterol measurement (mass/volume)Ordered By: Dr. Phillips on 12-01-2021 Cholesterol in LDL [Mass/Vol] 62 mg/dL 0-130 [facility] Serum or plasma urea nitroge n measurement (mass/volume)Ordered By: Dr. Phillips on 12-01-2021 Urea nitrogen [Mass/Vol] 16 mg/dL 7-18 [facility] Thin prep Papanicolaou smear with manual screeningOrdered By: Dr. Phillips on 12-01-2021 Thin prep Papanicolaou smear with manual screening 14 U/L 15-37 [facility] Thin prep Papanicolaou smear with manual screening 6 5-15 [facility] Whole blood hemoglobin A1c/t otal hemoglobin ratio (mass fraction)Ordered By: Dr. Phillips on 12-01-2021 HbA1c (Bld) [Mass fraction] 6.0 % 3.8-5.6 [facility] Comment on above: Normal < 5.7 % Predi abetic 5.7 - 6.4 % Diabetic >or= 6.5 % Please note range changes. Absolute lymphocyte counton 11-30-2021 Lymphocytes Auto (Unsp spec) [#/Vol] 1.80 10*3/uL 0.83-4.51 [facility] Work Phone: Basophil percentageon 2021 Basophils/100 WBC (Bld) 0.7 % 0-1 [facility] Work Phone: Chloride [Moles/Vol] 107 mmol/L 98-107 [facility] Work Phone: Eosinophils/100 WBC (Bld) 2.7 % 0-5 [facility] Work Phone: Glucose [Mass/Vol] 165 mg/dL 74-106 [facility] Work Phone: [phone] Comment on above: Fasting Glucose resu lt greater than or equal to 126 mg/dL suggests DIABETES MELLITUS per A.D.A. criteria. Neutrophils (Bld) [#/Vol] 5.3 10*3/uL 2.0-7.7 [facility] Work Phone: Neutrophils/100 WBC (Bld) 65.0 % 47-70 [facility] Work Phone: [phone] Potassium [Moles/Vol] 3.8 mmol/L 3.5-5.1 [facility] Work Phone: Comment on above: Slight Hemolysis, Re sult may be falsely increased. Sodium [Moles/Vol] 141 mmol/L 136-145 [facility] Work Phone: WBC (Bld) [#/Vol] 8.2 10*3/uL 4.4-11.0 [facility] Work Phone: Basophil percentageOrdered B y: Melania Sanders on 11-30-2021 Basophil percentage 0 SEEN /hpf 0-5 [facility] Bilirubin Test strip Ql (U)O rdered By: Melania Sanders on 11-30-2021 Bilirubin Ql (U) Negative Negative [facility] Blood erythrocytes count (nu mber/volume)on 11-30-2021 RBC (Bld) [#/Vol] 5.60 10*6/uL 4.6-6.2 [facility] Work Phone: Blood hemoglobin measurement (mass/volume)on 11-30-2021 Hemoglobin (Bld) [Mass/Vol] 15.8 g/dL 13.0-16.5 [facility] Work Phone: Blood lymphocytes/100 leukoc yteson 11-30-2021 Lymphocytes/100 WBC (Bld) 22.1 % 19-41 [facility] Work Phone: Blood monocytes/100 leukocyt eson 11-30-2021 Monocytes/100 WBC (Bld) 9.3 % 0-10 [facility] Work Phone: Blood platelet mean volumeon 11-30-2021 Platelet mean volume (Bld) [Entitic vol] 9.7 fL 6.2-12.0 [facility] Work Phone: Determination of erythrocyte mean corpuscular volume (MCV)on 11-30-2021 MCV (RBC) [Entitic vol] 85.4 fL 80-94 [facility] Work Phone: Glucose Glucometer (BldC) [M ass/Vol]on 11-30-2021 Glucose [Mass/Vol] 182 mg/dL 74-106 [facility] Work Phone: Comment on above: MANAGEMENT OF PATIEN T CARE PER NURSING PROTOCOL Hematocrit Auto (Bld) [Volum e fraction]on 11-30-2021 Hematocrit (Bld) [Volume fraction] 47.8 % 40-54 [facility] Work Phone: INR in Blood by Coagulation assayOrdered By: Dr. Concepcion on 11-30-2021 INR Coag (Bld) [Relative time] 1.0 {INR} [facility] Ketones Test strip Ql (U)Ord ered By: Melania Sanders on 11-30-2021 Ketones Ql (U) 5 mg/dl Negative [facility] Laboratory - Chemistry and C hemistry - challengeon 11-30-2021 CO2 [Moles/Vol] 28.0 mmol/L 21.0-32.0 [facility] Work Phone: Urea nitrogen/Creatinine [Mass ratio] 19.7 mg/mg 10 [facility] Work Phone: [phone] Laboratory - Chemistry and C hemistry - challengeOrdered By: Dr. Phillips on 11-30-2021 Magnesium [Mass/Vol] 2.3 mg/dL 1.6-2.6 [facility] Comment on above: Slight Hemolysis, Re sult may be falsely increased. Laboratory - CoagulationOrde red By: Dr. Concepcion on 11-30-2021 aPTT Coag (Bld) [Time] 27.9 s 24.1-36.2 [facility] PT Coag (PPP) [Time] 13.3 s 11.7-14.9 [facility] Laboratory - Hematology and Cell countson 11-30-2021 Erythrocyte distribution width (RBC) [Entitic vol] 38.6 fL 35.1-43.9 [facility] Work Phone: Erythrocyte distribution width (RBC) [Ratio] 12.6 % 11.6-14.6 [facility] Work Phone: Immature granulocytes/100 WBC (Bld) 0.200 % 0.0-0.9 [facility] Work Phone: Comment on above: IG% - Immature Granu locytes (promyelocytes, myelocytes and metamyelocytes) > 1% indicates that a LEFT SHIFT is Present. MCH (RBC) [Entitic mass] 28.2 pg 27.0-32.0 [facility] Work Phone: Nucleated RBC/100 WBC (Bld) [Ratio] 0 % 0-5 [facility] Work Phone: MCHC Auto (RBC) [Mass/Vol]on 11-30-2021 MCHC (RBC) [Mass/Vol] 33.1 g/dL 32-36 [facility] Work Phone: Mucus LM Ql (Urine sed)Order ed By: Melania Sanders on 11-30-2021 Mucus Ql (Urine sed) 0 SEEN /hpf [facility] Nitrite Test strip Ql (U)Ord ered By: Melania Sanders on 10-04-2022 Nitrite Ql (U) Negative Negative [facility] No Panel Informationon 11-30 Estimated Creatinine Clearance Calc 75.09 ml/min [facility] Work Phone: Estimated GFR (MDRD) Amer 83 mL/min >60 [facility] Work Phone: Comment on above: GFR Calc Estimated GFR (MDRD) Non-Af Amer 68 mL/min >60 [facility] Work Phone: Comment on above: Non- GFR Calc No Panel InformationOrdered By: Dr. Concepcion on 11-30-2021 Troponin I High Sensitivity 10 pg/mL 3.0-78.0 [facility] Comment on above: Please Note: [place] t Units and Gender Specific Reference Ranges. For more information see Policy Stat Procedure [place] High Sensitivity Troponin (TNIH) and attachments. Platelets bldon 11-30-2021 Platelets (Bld) [#/Vol] 194 10*3/uL 150-450 [facility] Work Phone: Protein Test strip Ql (U)Ord ered By: Melania Sanders on 11-30-2021 Protein Ql (U) Negative Negative [facility] Serum or plasma calcium noy urement (mass/volume)on 11-30-2021 Calcium [Mass/Vol] 9.3 mg/dL 8.5-10.1 [facility] Work Phone: Serum or plasma creatinine m easurement (mass/volume)on 11-30-2021 Creatinine [Mass/Vol] 1.17 mg/dL 0.70-1.30 [facility] Work Phone: Comment on above: The validity of the calculated GFR & GFRAA in patients over 70 years has not been determined. Clinical correlation is essential. Serum or plasma urea nitroge n measurement (mass/volume)on 11-30-2021 Urea nitrogen [Mass/Vol] 23 mg/dL 7-18 [facility] Work Phone: Squamous epithelial cells de tection in urine sediment by light microscopyOrdered By: Melania Sanders on 11-30-2021 Epithelial cells.squamous LM Ql (Urine sed) 0 SEEN /hpf 0-5 [facility] Thin prep Papanicolaou smear with manual screeningon 11-30-2021 Thin prep Papanicolaou smear with manual screening 6 5-15 [facility] Work Phone: Urine blood detectionOrdered By: Melania Sanders on 11-30-2021 RBC Ql (U) Negative Negative [facility] RBC Ql (U) 0 SEEN /hpf 0-5 [facility] Urine clarityOrdered By: Dustin Sanders on 11-30-2021 Clarity (U) Clear Clear [facility] Urine color determinationOrd ered By: Melania Sanders on 11-30-2021 Color (U) Yellow Yellow [facility] Urine glucose detectionOrder ed By: Melania Sanders on 11-30-2021 Glucose Ql (U) 1000 mg/dl Normal [facility] Urine leukocyte esterase det ection by dipstickOrdered By: Melania Sanders on 11-30-2021 Leukocyte esterase Test strip Ql (U) Negative Negative [facility] Urine pHOrdered By: Melania Sanders on 11-30-2021 pH (U) 6.5 [pH] 5.0 - 8.0 [facility] Urine sediment bacteria coun t by microscopy (number/high power field)Ordered By: Melania Sanders on 11-30-2021 Bacteria LM.HPF (Urine sed) [#/Area] 0 /[HPF] None Seen [facility] Urine specific gravity measu rementOrdered By: Melania Sanders on 11-30-2021 Specific gravity (U) [Rel density] 1.010 1.002-1.03 0 [facility] Urobilinogen Auto test strip Ql (U)Ordered By: Melania Sanders on 11-30-2021 Urobilinogen Ql (U) Normal mg/dl Normal [facility] Absolute lymphocyte counton 09-20-2021 Lymphocytes Auto (Unsp spec) [#/Vol] 1.39 10*3/uL 0.83-4.51 [facility] Work Phone: Basophil percentageon 2021 Basophils/100 WBC (Bld) 0.5 % 0-1 [facility] Work Phone: Bilirubin [Mass/Vol] 0.60 mg/dL 0.20-1.00 [facility] Work Phone: Comment on above: For patients on eltr ombopag therapy, use of Dimension [place] TBIL is not recommended. Chloride [Moles/Vol] 107 mmol/L 98-107 [facility] Work Phone: Cholesterol [Mass/Vol] 174 mg/dL <200 [facility] Work Phone: Comment on above: <200 mg/dL Desirable 200-240 mg/dL Borderline >240 mg/dL High Risk Eosinophils/100 WBC (Bld) 2.3 % 0-5 [facility] Work Phone: Glucose [Mass/Vol] 107 mg/dL 74-106 [facility] Work Phone: Comment on above: Fasting Glucose resu lt from 100 to 125 mg/dL suggests IMPAIRED HOMEOSTASIS per A.D.A. criteria. Neutrophils (Bld) [#/Vol] 4.3 10*3/uL 2.0-7.7 [facility] Work Phone: Neutrophils/100 WBC (Bld) 66.5 % 47-70 [facility] Work Phone: Potassium [Moles/Vol] 4.1 mmol/L 3.5-5.1 [facility] Work Phone: Protein [Mass/Vol] 7.6 g/dL 6.4-8.2 [facility] Work Phone: Sodium [Moles/Vol] 139 mmol/L 136-145 [facility] Work Phone: Triglyceride [Mass/Vol] 156 mg/dL <199 [facility] Work Phone: Comment on above: The drugs N-Acetylcy steine and Metamizole may falsely depress this assay.Serum Triglycerides Reference Interval Normal <150 mg/dL Borderline high 150 - 199 mg/dL High 200 - 499 mg/dL Very High > or = 500 mg/dL WBC (Bld) [#/Vol] 6.5 10*3/uL 4.4-11.0 [facility] Work Phone: Blood erythrocytes count (nu mber/volume)on 09-20-2021 RBC (Bld) [#/Vol] 5.58 10*6/uL 4.6-6.2 [facility]: Blood hemoglobin measurement (mass/volume)on 09-20-2021 Hemoglobin (Bld) [Mass/Vol] 16.3 g/dL 13.0-16.5 [facility] Work Phone: Blood lymphocytes/100 leukoc yteson 09-20-2021 Lymphocytes/100 WBC (Bld) 21.4 % 19-41 [facility] Work Phone: Blood monocytes/100 leukocyt eson 09-20-2021 Monocytes/100 WBC (Bld) 9.1 % 0-10 [facility] Work Phone: Blood platelet mean volumeon 09-20-2021 Platelet mean volume (Bld) [Entitic vol] 10.0 fL 6.2-12.0 [facility] Work Phone: Determination of erythrocyte mean corpuscular volume (MCV)on 09-20-2021 MCV (RBC) [Entitic vol] 88.4 fL 80-94 [facility] Work Phone: Hematocrit Auto (Bld) [Volum e fraction]on 09-20-2021 Hematocrit (Bld) [Volume fraction] 49.3 % 40-54 [facility] Work Phone: Laboratory - Chemistry and C hemistry - challengeon 09-20-2021 ALP [Catalytic activity/Vol] 51 U/L 45-117 [facility] Work Phone: ALT [Catalytic activity/Vol] 30 U/L 16-61 [facility] Work Phone: [phone] CO2 [Moles/Vol] 26.0 mmol/L 21.0-32.0 [facility] Work Phone: Globulin (S) [Mass/Vol] 3.4 g/dL 2.2-4.2 [facility] Work Phone: Urea nitrogen/Creatinine [Mass ratio] 15.3 mg/mg 10-20 [facility] Work Phone: Laboratory - Hematology and Cell countson 09-20-2021 Erythrocyte distribution width (RBC) [Entitic vol] 39.9 fL 35.1-43.9 [facility] Work Phone: Erythrocyte distribution width (RBC) [Ratio] 12.2 % 11.6-14.6 [facility] Work Phone: Immature granulocytes/100 WBC (Bld) 0.200 % 0.0-0.9 [facility] Work Phone: Comment on above: IG% - Immature Granu locytes (promyelocytes, myelocytes and metamyelocytes) > 1% indicates that a LEFT SHIFT is Present. MCH (RBC) [Entitic mass] 29.2 pg 27.0-32.0 [facility] Work Phone: Nucleated RBC/100 WBC (Bld) [Ratio] 0 % 0-5 [facility] Work Phone: MCHC Auto (RBC) [Mass/Vol]on 09-20-2021 MCHC (RBC) [Mass/Vol] 33.1 g/dL 32-36 [facility] Work Phone: No Panel Informationon 09-20 Estimated GFR (MDRD) Amer 73 mL/min >60 [facility] Work Phone: Comment on above: GFR Calc Estimated GFR (MDRD) Non-Af Amer 60 mL/min >60 [facility] Work Phone: Comment on above: Non- GFR Calc Platelets bldon 09-20-2021 Platelets (Bld) [#/Vol] 166 10*3/uL 150-450 [facility] Work Phone: Serum or plasma albumin noy urement (mass/volume)on 09-20-2021 Albumin [Mass/Vol] 4.2 g/dL 3.2-5.0 [facility] Work Phone: Serum or plasma albumin/glob ulin mass ratioon 09-20-2021 Albumin/Globulin [Mass ratio] 1.2 {ratio} 0.9-2.4 [facility] Work Phone: Serum or plasma calcium noy urement (mass/volume)on 09-20-2021 Calcium [Mass/Vol] 9.0 mg/dL 8.5-10.1 [facility] Work Phone: Serum or plasma cholesterol in HDL measurement (mass/volume)on 09-20-2021 Cholesterol in HDL [Mass/Vol] 30 mg/dL >40 [facility] Work Phone: Comment on above: The drugs N-Acetylcy steine and Metamizole may falsely depress this assay. Reference Range HDL <40 mg/dL Low HDL Cholesterol HDL >or= 60 mg/dL High HDL Cholesterol Serum or plasma cholesterol in VLDL measurement (mass/volume)on 09-20-2021 Cholesterol in VLDL [Mass/Vol] 31 mg/dL 5-40 [facility] Work Phone: Serum or plasma creatinine m easurement (mass/volume)on 09-20-2021 Creatinine [Mass/Vol] 1.31 mg/dL 0.70-1.30 [facility] Work Phone: Comment on above: The validity of the calculated GFR & GFRAA in patients over 70 years has not been determined. Clinical correlation is essential. Serum or plasma low density lipoprotein (LDL) cholesterol measurement (mass/volume)on 09-20-2021 Cholesterol in LDL [Mass/Vol] 113 mg/dL 0-130 [facility] Work Phone: Serum or plasma urea nitroge n measurement (mass/volume)on 09-20-2021 Urea nitrogen [Mass/Vol] 20 mg/dL 7-18 [facility] Work Phone: Thin prep Papanicolaou smear with manual screeningon 09-20-2021 Thin prep Papanicolaou smear with manual screening 20 U/L 15-37 [facility] Work Phone: Thin prep Papanicolaou smear with manual screening 6 5-15 [facility] Work Phone: Whole blood hemoglobin A1c/t otal hemoglobin ratio (mass fraction)on 09-20-2021 HbA1c (Bld) [Mass fraction] 5.6 % 3.8-5.6 [facility] Work Phone: Comment on above: Normal < 5.7 % Predi abetic 5.7 - 6.4 % Diabetic >or= 6.5 % Please note range changes. Absolute lymphocyte counton 08-04-2021 Lymphocytes Auto (Unsp spec) [#/Vol] 1.49 10*3/uL 0.83-4.51 [facility] Work Phone: Basophil percentageon 2021 Basophils/100 WBC (Bld) 0.5 % 0-1 [facility] Work Phone: Bilirubin [Mass/Vol] 0.60 mg/dL 0.20-1.00 [facility] Work Phone: Comment on above: For patients on eltr ombopag therapy, use of Dimension [place] TBIL is not recommended. Chloride [Moles/Vol] 107 mmol/L 98-107 [facility] Work Phone: Eosinophils/100 WBC (Bld) 2.3 % 0-5 [facility] Work Phone: Glucose [Mass/Vol] 103 mg/dL 74-106 [facility] Work Phone: Comment on above: Fasting Glucose resu lt from 100 to 125 mg/dL suggests IMPAIRED HOMEOSTASIS per A.D.A. criteria. Neutrophils (Bld) [#/Vol] 6.6 10*3/uL 2.0-7.7 [facility] Work Phone: Neutrophils/100 WBC (Bld) 71.7 % 47-70 [facility] Work Phone: [phone] Potassium [Moles/Vol] 3.5 mmol/L 3.5-5.1 [facility] Work Phone: Protein [Mass/Vol] 7.3 g/dL 6.4-8.2 [facility] Work Phone: Sodium [Moles/Vol] 139 mmol/L 136-145 [facility] Work Phone: WBC (Bld) [#/Vol] 9.2 10*3/uL 4.4-11.0 [facility] Work Phone: Blood erythrocytes count (nu mber/volume)on 08-04-2021 RBC (Bld) [#/Vol] 5.43 10*6/uL 4.6-6.2 [facility] Work Phone: Blood hemoglobin measurement (mass/volume)on 08-04-2021 Hemoglobin (Bld) [Mass/Vol] 16.0 g/dL 13.0-16.5 [facility] Work Phone: Blood lymphocytes/100 leukoc yteson 08-04-2021 Lymphocytes/100 WBC (Bld) 16.2 % 19-41 [facility] Work Phone: [phone] Blood monocytes/100 leukocyt eson 08-04-2021 Monocytes/100 WBC (Bld) 9.1 % 0-10 [facility] Work Phone: Blood platelet mean volumeon 08-04-2021 Platelet mean volume (Bld) [Entitic vol] 9.7 fL 6.2-12.0 [facility] Work Phone: Determination of erythrocyte mean corpuscular volume (MCV)on 08-04-2021 MCV (RBC) [Entitic vol] 85.6 fL 80-94 [facility] Work Phone: Direct bilirubinon 2 Bilirubin.direct [Mass/Vol] 0.18 mg/dL 0.00-0.30 [facility] Work Phone: Hematocrit Auto (Bld) [Volum e fraction]on 08-04-2021 Hematocrit (Bld) [Volume fraction] 46.5 % 40-54 [facility] Work Phone: Laboratory - Chemistry and C hemistry - challengeon 08-04-2021 ALP [Catalytic activity/Vol] 53 U/L 45-117 [facility] Work Phone: ALT [Catalytic activity/Vol] 52 U/L 16-61 [facility] Work Phone: CO2 [Moles/Vol] 26.0 mmol/L 21.0-32.0 [facility] Work Phone: Globulin (S) [Mass/Vol] 3.3 g/dL 2.2-4.2 [facility] Work Phone: Lipase [Catalytic activity/Vol] 106 U/L 73-393 [facility] Work Phone: Urea nitrogen/Creatinine [Mass ratio] 12.5 mg/mg 10-20 [facility] Work Phone: Laboratory - Hematology and Cell countson 08-04-2021 Erythrocyte distribution width (RBC) [Entitic vol] 39.0 fL 35.1-43.9 [facility] Work Phone: Erythrocyte distribution width (RBC) [Ratio] 12.7 % 11.6-14.6 [facility] Work Phone: Immature granulocytes/100 WBC (Bld) 0.200 % 0.0-0.9 [facility] Work Phone: Comment on above: IG% - Immature Granu locytes (promyelocytes, myelocytes and metamyelocytes) > 1% indicates that a LEFT SHIFT is Present. MCH (RBC) [Entitic mass] 29.5 pg 27.0-32.0 [facility] Work Phone: Nucleated RBC/100 WBC (Bld) [Ratio] 0 % 0-5 [facility] Work Phone: MCHC Auto (RBC) [Mass/Vol]on 08-04-2021 MCHC (RBC) [Mass/Vol] 34.4 g/dL 32-[address] [facility] Work Phone: No Panel Informationon 06-08 -2022 Estimated Creatinine Clearance Calc 73.21 ml/min [facility] Work Phone: Estimated GFR (MDRD) Amer 81 mL/min >60 [facility] Work Phone: Comment on above: GFR Calc Estimated GFR (MDRD) Non-Af Amer 67 mL/min >60 [facility] Work Phone: Comment on above: Non- GFR Calc Troponin I High Sensitivity 12 pg/mL 3.0-78.0 [facility] Work Phone: Comment on above: Please Note: New Annel t Units and Gender Specific Reference Ranges. For more information see Policy Stat Procedure [place] High Sensitivity Troponin (TNIH) and attachments. Platelets bldon 08-04-2021 Platelets (Bld) [#/Vol] 174 10*3/uL 150-450 [facility] Work Phone: Serum or plasma albumin noy urement (mass/volume)on 08-04-2021 Albumin [Mass/Vol] 4.0 g/dL 3.2-5.0 [facility] Work Phone: Serum or plasma calcium noy urement (mass/volume)on 08-04-2021 Calcium [Mass/Vol] 9.1 mg/dL 8.5-10.1 [facility] Work Phone: Serum or plasma creatinine m easurement (mass/volume)on 08-04-2021 Creatinine [Mass/Vol] 1.20 mg/dL 0.70-1.30 [facility] Work Phone: Comment on above: The validity of the calculated GFR & GFRAA in patients over 70 years has not been determined. Clinical correlation is essential. Serum or plasma urea nitroge n measurement (mass/volume)on 08-04-2021 Urea nitrogen [Mass/Vol] 15 mg/dL 7-18 [facility] Work Phone: Thin prep Papanicolaou smear with manual screeningon 08-04-2021 Thin prep Papanicolaou smear with manual screening 34 U/L 15-37 [facility] Work Phone: Thin prep Papanicolaou smear with manual screening 6 5-15 [facility] Work Phone: Absolute lymphocyte counton 07-09-2021 Lymphocytes Auto (Unsp spec) [#/Vol] 1.65 10*3/uL 0.83-4.51 [facility] Work Phone: Basophil percentageon 2021 Basophils/100 WBC (Bld) 0.4 % 0-1 [facility] Work Phone: Bilirubin [Mass/Vol] 0.70 mg/dL 0.20-1.00 [facility] Work Phone: Comment on above: Slight Lipemia, Resu lt may be falsely increased. For patients on eltrombopag therapy, use of Dimension [place] TBIL is not recommended. Chloride [Moles/Vol] 105 mmol/L 98-107 [facility] Work Phone: Cholesterol [Mass/Vol] 131 mg/dL <200 [facility] Work Phone: Comment on above: Slight Lipemia, Resu lt may be falsely increased. <200 mg/dL Desirable 200-240 mg/dL Borderline >240 mg/dL High Risk Eosinophils/100 WBC (Bld) 3.4 % 0-5 [facility] Work Phone: Glucose [Mass/Vol] 188 mg/dL 74-106 [facility] Work Phone: Comment on above: Slight Lipemia, Resu lt may be falsely increased.Fasting Glucose result greater than or equal to 126 mg/dL suggests DIABETES MELLITUS per A.D.A. criteria. Neutrophils (Bld) [#/Vol] 4.7 10*3/uL 2.0-7.7 [facility] Work Phone: Neutrophils/100 WBC (Bld) 62.8 % 47-70 [facility] Work Phone: Potassium [Moles/Vol] 4.2 mmol/L 3.5-5.1 [facility] Work Phone: Comment on above: Slight Hemolysis, Re sult may be falsely increased.-Slight Lipemia, Result may be falsely increased. Protein [Mass/Vol] 6.8 g/dL 6.4-8.2 [facility] Work Phone: Sodium [Moles/Vol] 136 mmol/L 136-145 [facility] Work Phone: Triglyceride [Mass/Vol] 983 mg/dL <199 [facility] Work Phone: Comment on above: The drugs N-Acetylcy steine and Metamizole may falsely depress this assay. Slight Lipemia, Result may be falsely increased. TRIGLYCERIDE IS GREATER THAN 400 mg/dL. LDL RESULT IS INVALID AND WILL NOT BE REPORTED.Serum Triglycerides Reference Interval Normal <150 mg/dL Borderline high 150 - 199 mg/dL High 200 - 499 mg/dL Very High > or = 500 mg/dL WBC (Bld) [#/Vol] 7.5 10*3/uL 4.4-11.0 [facility] Work Phone: Blood erythrocytes count (nu mber/volume)on 07-09-2021 RBC (Bld) [#/Vol] 5.51 10*6/uL 4.6-6.2 [facility] Work Phone: Blood hemoglobin measurement (mass/volume)on 07-09-2021 Hemoglobin (Bld) [Mass/Vol] 16.6 g/dL 13.0-16.5 [facility] Work Phone: Blood lymphocytes/100 leukoc yteson 07-09-2021 Lymphocytes/100 WBC (Bld) 22.1 % 19-41 [facility] Work Phone: Blood monocytes/100 leukocyt eson 07-09-2021 Monocytes/100 WBC (Bld) 10.9 % 0-10 [facility] Work Phone: Blood platelet mean volumeon 07-09-2021 Platelet mean volume (Bld) [Entitic vol] 10.0 fL 6.2-12.0 [facility] Work Phone: Determination of erythrocyte mean corpuscular volume (MCV)on 07-09-2021 MCV (RBC) [Entitic vol] 87.7 fL 80-94 [facility] Work Phone: Hematocrit Auto (Bld) [Volum e fraction]on 07-09-2021 Hematocrit (Bld) [Volume fraction] 48.3 % 40-54 [facility] Work Phone: Laboratory - Chemistry and C hemistry - challengeon 07-09-2021 ALP [Catalytic activity/Vol] 80 U/L 45-117 [facility] Work Phone: ALT [Catalytic activity/Vol] 41 U/L 16-61 [facility] Work Phone: CO2 [Moles/Vol] 23.0 mmol/L 21.0-32.0 [facility] Work Phone: Comment on above: Slight Lipemia, Resu lt may be falsely increased. Globulin (S) [Mass/Vol] 3.0 g/dL 2.2-4.2 [facility] Work Phone: Urea nitrogen/Creatinine [Mass ratio] 19.8 mg/mg 10-20 [facility] Work Phone: Laboratory - Hematology and Cell countson 07-09-2021 Erythrocyte distribution width (RBC) [Entitic vol] 39.9 fL 35.1-43.9 [facility] Work Phone: Erythrocyte distribution width (RBC) [Ratio] 12.5 % 11.6-14.6 [facility] Work Phone: Immature granulocytes/100 WBC (Bld) 0.400 % 0.0-0.9 [facility] Work Phone: Comment on above: IG% - Immature Granu locytes (promyelocytes, myelocytes and metamyelocytes) > 1% indicates that a LEFT SHIFT is Present. MCH (RBC) [Entitic mass] 30.1 pg 27.0-32.0 [facility] Work Phone: Nucleated RBC/100 WBC (Bld) [Ratio] 0 % 0-5 [facility] Work Phone: MCHC Auto (RBC) [Mass/Vol]on 07-09-2021 MCHC (RBC) [Mass/Vol] 34.4 g/dL 32-36 [facility] Work Phone: No Panel Informationon 07-09 Estimated GFR (MDRD) Amer 93 mL/min >60 [facility] Work Phone: Comment on above: GFR Calc Estimated GFR (MDRD) Non-Af Amer 77 mL/min >60 [facility] Work Phone: Comment on above: Non- GFR Calc Thyroid Stimulating Hormone (TSH) 1.29 uIU/mL 0.358-3.74 [facility] Work Phone: Platelets bldon 07-09-2021 Platelets (Bld) [#/Vol] 174 10*3/uL 150-450 [facility] Work Phone: Serum or plasma albumin noy urement (mass/volume)on 07-09-2021 Albumin [Mass/Vol] 3.8 g/dL 3.2-5.0 [facility] Work Phone: Serum or plasma albumin/glob ulin mass ratioon 07-09-2021 Albumin/Globulin [Mass ratio] 1.3 {ratio} 0.9-2.4 [facility] Work Phone: Serum or plasma calcium noy urement (mass/volume)on 07-09-2021 Calcium [Mass/Vol] 8.1 mg/dL 8.5-10.1 [facility] Work Phone: Comment on above: Slight Lipemia, Resu lt may be falsely increased. Serum or plasma cholesterol in HDL measurement (mass/volume)on 07-09-2021 Cholesterol in HDL [Mass/Vol] 19 mg/dL >40 [facility] Work Phone: Comment on above: The drugs N-Acetylcy steine and Metamizole may falsely depress this assay. Reference Range HDL <40 mg/dL Low HDL Cholesterol HDL >or= 60 mg/dL High HDL Cholesterol Serum or plasma cholesterol in VLDL measurement (mass/volume)on 07-09-2021 Cholesterol in VLDL [Mass/Vol] [facility] Work Phone: Comment on above: Test not performed Serum or plasma creatinine m easurement (mass/volume)on 07-09-2021 Creatinine [Mass/Vol] 1.06 mg/dL 0.70-1.30 [facility] Work Phone: Comment on above: Slight Lipemia, Resu lt may be falsely increased.The validity of the calculated GFR & GFRAA in patients over 70 years has not been determined. Clinical correlation is essential. Serum or plasma low density lipoprotein (LDL) cholesterol measurement (mass/volume)on 07-09-2021 Cholesterol in LDL [Mass/Vol] [facility] Work Phone: Comment on above: Test not performed Serum or plasma urea nitroge n measurement (mass/volume)on 07-09-2021 Urea nitrogen [Mass/Vol] 21 mg/dL 7-18 [facility] Work Phone: Thin prep Papanicolaou smear with manual screeningon 07-09-2021 Thin prep Papanicolaou smear with manual screening 27 U/L 15-37 [facility] Work Phone: Thin prep Papanicolaou smear with manual screening 8 5-15 [facility] Work Phone: Whole blood hemoglobin A1c/t otal hemoglobin ratio (mass fraction)on 07-09-2021 HbA1c (Bld) [Mass fraction] 6.8 % 3.8-5.6 [facility] Work Phone: Comment on above: Normal < 5.7 % Predi abetic 5.7 - 6.4 % Diabetic >or= 6.5 % Please note range changes. Basophil percentageon 2021 Chloride [Moles/Vol] 106 mmol/L 98-107 [facility] Work Phone: Glucose [Mass/Vol] 176 mg/dL 74-106 [facility] Work Phone: Comment on above: Fasting Glucose resu lt greater than or equal to 126 mg/dL suggests DIABETES MELLITUS per A.D.A. criteria. Potassium [Moles/Vol] 3.9 mmol/L 3.5-5.1 [facility] Work Phone: Sodium [Moles/Vol] 136 mmol/L 136-145 [facility] Work Phone: Laboratory - Chemistry and C hemistry - challengeon 03-19-2021 CO2 [Moles/Vol] 24.0 mmol/L 21.0-32.0 [facility] Work Phone: Urea nitrogen/Creatinine [Mass ratio] 12.1 mg/mg 10-20 [facility] Work Phone: No Panel Informationon 03-19 Estimated GFR (MDRD) Amer 84 mL/min >60 [facility] Work Phone: Comment on above: GFR Calc Estimated GFR (MDRD) Non-Af Amer 69 mL/min >60 [facility] Work Phone: Comment on above: Non- GFR Calc Serum or plasma calcium noy urement (mass/volume)on 03-19-2021 Calcium [Mass/Vol] 9.2 mg/dL 8.5-10.1 [facility] Work Phone: Serum or plasma creatinine m easurement (mass/volume)on 03-19-2021 Creatinine [Mass/Vol] 1.16 mg/dL 0.70-1.30 [facility] Work Phone: Comment on above: The validity of the calculated GFR & GFRAA in patients over 70 years has not been determined. Clinical correlation is essential. Serum or plasma urea nitroge n measurement (mass/volume)on 03-19-2021 Urea nitrogen [Mass/Vol] 14 mg/dL 7-18 [facility] Work Phone: Thin prep Papanicolaou smear with manual screeningon 03-19-2021 Thin prep Papanicolaou smear with manual screening 6 5-15 [facility] Work Phone: CORONAVIRUS 2019 BY PCRon SARS-CoV-2 (COVID-19) RNA GITA+probe Ql (Unsp spec) Not detected Normal Not Detected [facility] Comment on above: Result Comment: . This assay is designed to detect the N, ORF1ab and/or S genes of SARS-CoV-2 via nucleic acid amplification. A Negative (NOT DETECTED) result does not preclude 2019-nCoV infection since the adequacy of sample collection and/or low viral burden may result in presence of viral nucleic acids below the clinical sensitivity of this test method. Negative (NOT DETECTED) result should not be used as the sole basis for treatment or other patient management decisions. Rather negative results should be combined with clinical observations, patient history, and epidemiological information to make patient management decisions. Fact sheet for providers: https://www.fda.gov/media/556065/download Fact sheet for patients: https://www.fda.gov/media/648286/download This test has received FDA Emergency Use Authorization (EUA) and has been verified by [facility] ([facility]). This test is only authorized for the duration of time that circumstances exist to justify the authorization of the emergency use of in vitro diagnostic tests for the detection of SARS-CoV-2 virus and/or diagnosis of COVID-19 infection under section 564(b)(1) of the Act, 21 U.S.C. 360bbb-3(b)(1), unless the authorization is terminated or revoked sooner. [facility] is certified under CLIA-88 as qualified to perform high complexity testing. Testing is performed in the [facility] laboratories located at [address] [place] [address]. Performed By: #### C [id number] #### [address] [place] [address] Covid 19 Resultson SARS-CoV-2 (COVID-19) RNA GITA+probe Ql (Unsp spec) NEGATIVE COVID-19 Test Coronaviruses are common world-wide and are the cause of many common colds. SARS-COV2 is a new coronavirus that began circulating worldwide in 2019 so we are calling it COVID-19. It has been estimated that four out of five patients with COVID-19 will recover at home without the need for medical attention. Symptoms of COVID-19 may include cough, fever, shortness of breath, loss of taste or smell and other flu-like symptoms including chills, sore muscles, sore throat, and headache. Severe illness is more common in older people and people with other health problems such as high blood pressure, obesity, and immune system problems. If the test is positive, you have COVID-19. You will be contacted by the ordering physicians office and instructed to remain on home isolation, in accordance with CDC guidelines. You may also be contacted by the [facility] to see if any of your close contacts may have been exposed to the virus and need to quarantine. If the test is negative, you likely do not have COVID-19 at this time, but you still may have a different illness that can spread to other people (like Influenza, or the Flu) and could still be at risk for getting COVID-19. We recommend that you stay away from other people to limit the spread of illness until your symptoms are improving and you are fever-free for 24 hours without the use of fever lowering medications such as acetaminophen or ibuprofen. No test is 100% accurate so if you are still concerned you may have COVID-19, talk to your doctor about the need to continue to stay away from others. Medicines Unless your provider told you not to use the following: Acetaminophen (Tylenol and others) is generally safe. Anti-inflammatory medications, such as Ibuprofen (Advil or Motrin) or Naproxen (Aleve) can also be used. Iowy-dxs-adrbdzd cough and cold medicines can be used according to the instructions on the package. Some sziu-uwa-vgvaokp medicines also contain acetaminophen. Make sure you are not taking more than your recommended dose. For those not hospitalized, there is no specific treatment available for this illness. Antibiotics do not treat Coronaviruses. Follow-Up Follow up with your doctor by scheduling a virtual visit or consider follow-up at one of our urgent care fever clinics. If you are having difficulty breathing, or are very weak and having difficulty standing, this is a medical emergency. Call 911 or have someone take you to the nearest emergency room immediately. If possible, wear a facemask. Additional guidance from the CDC for patients who tested POSITIVE for COVID-19 How to isolate: Isolate yourself in a specific room at home and limit your contact with others. Use a separate bathroom from other members of the household, when possible. Leave home only to get essential medical care. Do not go to work, school or public areas. Avoid using public transportation, ride-sharing, or taxis. Restrict contact with pets and other animals. If you must care for your pet or be around animals while you are sick, wash your hands before and after your interaction and wear a facemask. Make sure that shared spaces in the home have good airflow, such as by an air conditioner or an opened window, weather permitting. Personal Hygiene Procedures: Wear a face mask when in the same room as other people or pets. If a face mask interferes with your breathing, others should wear a mask when sharing space with you. Frequent hand-washing: wash your hands with soap and water for at least 20 seconds. If soap and water are not available, use alcohol-based hand spaghetti press helper. Avoid touching your eyes, nose, and mouth with unwashed hands. Household Hygiene Procedures: Avoid sharing personal household items such as dishes, glassware, cups, eating utensils, towels or bedding with other people or pets in your home. After use, these items should be washed with soap and hot water. Disinfect all high-touch surfaces every day with antibacterial cleaning solutions such as Lysol wipes, bleach, cleansers, etc. High-touch surfaces include tabletops, doorknobs, bathroom fixtures, toilets, phones, keyboards, tablets and bedside tables. Immediately clean any surfaces that may have blood, poop or body fluids on them, using antibacterial cleaning solutions such as Lysol wipes, bleach, cleansers, etc. If clothing or bedding come into contact with blood, poop or body fluids, they should be washed immediately. Follow the directions on the laundry detergent and clothing labels but hot water is recommended when possible. Stopping home isolation precautions: If possible, consult your doctor before stopping home isolation precautions. According to the CDC, you can discontinue home isolation precautions when you have met both of these criteria: Your fever and respiratory symptoms have been gone for 24 stacey (more content not included)... Normal [facility] CORONAVIRUS 2019 BY PCRon Lab Specimen Source Nasal, Nasopharyngeal Normal [facility] Comment on above: Performed By: #### C OV19 #### [facility] [address] [place] [address] DATE OF SYMPTOM ONSET [YYYYMMDD]? 20200921 Normal [facility] Comment on above: Performed By: #### C OV19 #### [facility] [address] [place] [address] Coronavirus 2019 RNA by PCR, Symptomaticon 09-24-2020 Date and time of symptom onset 20200921 1 [facility] Internal Medicine Work Phone: Coronavirus 2019 RNA by PCR, Symptomatic Not detected Normal See Below [facility] Internal Medicine Work Phone: Comment on above: SOURCE: Nasal, Nasop haryngealReference Range: Not Detected.This assay is designed to detect the N, ORF1ab and/or S genes of SARS-CoV-2 via nucleic acid amplification. A Negative (NOT DETECTED) result does not preclude 2019-nCoV infection since the adequacy of sample collection and/or low viral burden may result in presence of viral nucleic acids below the clinical sensitivity of this test method. Negative (NOT DETECTED) result should not be used as the sole basis for treatment or other patient management decisions. Rather negative results should be combined with clinical observations, patient history, and epidemiological information to make patient management decisions.Fact sheet for providers: https://www.fda.gov/media/591521/downloadFact sheet for patients: https://www.fda.gov/media/815252/downloadThis test has received FDA Emergency Use Authorization (EUA) and has been verified by [facility] ([facility]). This test is only authorized for the duration of time that circumstances exist to justify the authorization of the emergency use of in vitro diagnostic tests for the detection of SARS-CoV-2 virus and/or diagnosis of COVID-19 infection under section 564(b)(1) of the Act, 21 U.S.C. 360bbb-3(b)(1), unless the authorization is terminated or revoked sooner. [facility] is certified under CLIA-88 as qualified to perform high complexity testing. Testing is performed in the [facility] laboratories located at [address] [place] [id number]. Office Visit (Internal Medic ine)on 09-23-2020 Follow-up visit Diagnoses/Problems Assessed Encounter for screening for other viral diseases (V73.89) (Z11.59) Pharyngitis (462) (J02.9) Low serum testosterone level (790.99) (R79.89) Orders Encounter for screening for other viral diseases Coronavirus 2019 RNA by PCR, Symptomatic; Status:Active; Requested for:23Sep2020; Perform:Lab Services - Lab To Draw (Non-Blood Test); Due:22Dec2020;Ordered; For:Encounter for screening for other viral diseases; Ordered By:Thuy Hannah; RESIDENT IN CONGREGATE CARE SETTING? : No ICU? : No HOSPITALIZED (OR PLANNED TO BE ADMITTED)? : No EMPLOYED IN HEALTHCARE? : Yes FIRST COVID NASAL SWAB TEST? : No Symptom 1 : Sore throat DATE OF SYMPTOM ONSET? : 21Sep2020 IS THE PATIENT SYMPTOMATIC DEFINED BY THE CDC (FEVER>100, NEW WORSENING COUGH OR SHORTNESS OF BREATH, NEW LOSS OF TASTE OR SMELL, SORE THROAT, DIARRHEA, BODY ACHES/MALAISE, HEADACHE, NAUSEA/VOMITING, OR RUNNY NOSE/CONGESTION)? : Yes Low serum testosterone level Start: Syringe 21G X 1 3 ML; USE DIRECTED Rx By: Thuy Hannah; Dispense: 0 Days ; #:30 Each; Refill: 2; For: Low serum testosterone level; BERNICE = N; [facility]; Last Updated By: [employer]; 09/23/2020 3:23:54 PM Pharyngitis Start: Amoxicillin 500 MG Oral Capsule; Take 1 capsule twice daily Rx By: Thuy Hannah; Dispense: 10 Days ; #:20 Capsule; Refill: 0; For: Pharyngitis; BERNICE = N; Sent To: [facility] [address]; Last Updated By: [employer]; 09/23/2020 3:23:55 PM Start: predniSONE 10 MG Oral Tablet; TAKE 3 TABLET Daily Rx By: Thuy Hannah; Dispense: 5 Days ; #:15 Tablet; Refill: 0; For: Pharyngitis; BERNICE = N; Sent To: [facility] RAM[facility]; Last Updated By: [employer], [employer]; 09/23/2020 3:23:55 PM Patient Discussion/Summary F/U BEFORE COVID TESTING Provider Impressions SCHEDULED FOR [facility] COVID-19 TESTING. INSTRUCTED TO SELF QUARANTINE AND TO PRACTICE GOOD HAND WASHING TECHNIQUES. PT WAS INSTRUCTED TO INCREASE FLUID INTAKE AND TAKE TYLENOL 650 MG PO Q6H/PRN FOR PAIN OR FEVER. RETURN SOONER OR GO TO THE ER IF SYMPTOMS PERSIST OR WORSEN WE DISCUSSED MOST COMMON SIDE EFFECTS OF PRESCRIBED MEDICATIONS. INDICATIONS, RISK, COMPLICATIONS, AND ALTERNATIVES OF MEDICATION/THERAPEUTICS WERE EXPLAINED AND DISCUSSED. PLEASE MONITOR CLOSELY FOR ANY UNTOWARD SIDE EFFECTS OR COMPLICATIONS OF MEDICATIONS. PATIENT IS STRONGLY ADVISED TO BE COMPLIANT WITH RECOMMENDATIONS. QUESTIONS AND CONCERNS WERE ADDRESSED. INSTRUCTED TO CALL, RETURN SOONER, OR GO TO THE ER, IF SYMPTOMS PERSIST OR WORSEN. THEY VOICED UNDERSTANDING AND DENIES FURTHER QUESTIONS AT THIS TIME. TIME CODE 1. PREPARATION FOR PATIENT'S VISIT (REVIEWING CHART, CURRENT MEDICAL RECORDS, OUTSIDE HEALTH PROVIDER RECORDS, PREVIOUS HISTORY, EXAM, TEST, PROCEDURE, AND MEDICATIONS) 2. FACE TO FACE ENCOUNTER OBTAINING HISTORY FROM THE PATIENT/FAMILY/CAREGIVERS ; PERFORMING EVALUATION AND EXAMINATION; ORDERING TESTS OR PROCEDURES; REFERRING AND COMMUNICATING WITH OTHER HEALTHCARE PROVIDERS; COUNSELING AND EDUCATION OF THE PATIENT/FAMILY/CAREGIVERS ; INDEPENDENTLY INTERPRETING RESULTS (TESTS, LABS, PROCEDURES, IMAGING) AND COMMUNICATING AND EXPLAINING RESULTS TO THE PATIENT/FAMILY/CAREGIVERS 3. COORDINATION OF CARE; PREPARING AND PRINTING DISCHARGE INSTRUCTIONS AND ANY EDUCATIONAL MATERIAL FOR THE PATIENT/FAMILY/CAREGIVERS . DOCUMENTING CLINICAL INFORMATION IN THE ELECTRONIC MEDICAL RECORD 4. REVIEWING OARRS NEEDED MDM 1) COMPLEXITY: MORE THAN 1 STABLE CHRONIC CONDITION ADDRESSED OR 1 ACUTE ILLNESS ADDRESSED 2)DATA: TESTS INTERPRETED AND OR ORDERED, TOOK INDEPENDENT HISTORY OR RECORDS REVIEWED 3)RISK: MODERATE RISK DUE TO NATURE OF MEDICAL CONDITIONS/COMORBIDITY OR MEDICATIONS ORDERED OR SURGICAL OR PROCEDURE REFERRAL Chief Complaint A telephone visit (audio only) between the patient (at the originating site) and the provider (at the distant site) was utilized to provide this telehealth service. Verbal consent was requested and obtained from KRISHAN BURNHAM on this date, 09/23/2020 03:00 PM , for a telehealth visit. VIRTUAL: [phone]. Congestion, PRADO, nausea. History of Present IllnessTELEPHONE APPOINTMENT BEING PERFORMED DUE TO COVID-19 (CORONAVIRUS) Presents today for C/O SORE THROAT, NASAL CONGESTION, AND NAUSEA modifying factors consists of HIS IS EXPERIENCING SIMILAR SYMPTOMS associated symptoms consist of NO SINUS TENDERNESS, SOB, COUGH, OR CP prior treatment consists of medication NONE TESTOSTERONE- REQUESTING 21 G NEEDLES BE SENT TO [facility]. [facility] G[facility] 20 G AND THEY HURT WHEN INJECTING MED Review of Systems Constitutional: feeling poorly, but no fever, no recent weight gain, no recent weight loss and no chills. Eyes: no blurred vision, no diplopia and no eyesight problems. ENT: sore throat, but no hearing loss, no tinnitus, no earache, no hoarseness and no swollen glands in the neck. Cardiovascular: no chest pain, no tightness or heavy pressure, no zoie (more content not included)... Normal [employer] Tobacco Screening.on 021 Fall risk assessment a) No falls within the last year [facility] Internal Medicine Work Phone: Tobacco use status CPHS b) No M [facility] Internal Medicine Work Phone: Office Visit (Internal Medic ine)on 09-10-2020 Follow-up visit Diagnoses/Problems Assessed BRITTANY on CPAP (327.23,V46.8) (G47.33,Z99.89) Primary Parkinson's disease (332.0) (G20) Primary Parkinson's disease Diverticulosis (562.10) (K57.90) Patient Discussion/Summary F/U 1.5 MONTH CPAP COMPLIANCE [place] [facility] [place] Impressions PLEASE MONITOR CLOSELY FOR ANY UNTOWARD SIDE EFFECTS OR COMPLICATIONS OF MEDICATIONS. PATIENT IS STRONGLY ADVISED TO BE COMPLIANT WITH RECOMMENDATIONS. QUESTIONS AND CONCERNS WERE ADDRESSED. INSTRUCTED TO CALL, RETURN SOONER, OR GO TO THE ER, IF SYMPTOMS PERSIST OR WORSEN. THEY VOICED UNDERSTANDING AND DENIES FURTHER QUESTIONS AT THIS TIME. TIME CODE 1. PREPARATION FOR PATIENT'S VISIT (REVIEWING CHART, CURRENT MEDICAL RECORDS, OUTSIDE HEALTH PROVIDER RECORDS, PREVIOUS HISTORY, EXAM, TEST, PROCEDURE, AND MEDICATIONS) 2. FACE TO FACE ENCOUNTER OBTAINING HISTORY FROM THE PATIENT/FAMILY/CAREGIVERS ; PERFORMING EVALUATION AND EXAMINATION; ORDERING TESTS OR PROCEDURES; REFERRING AND COMMUNICATING WITH OTHER HEALTHCARE PROVIDERS; COUNSELING AND EDUCATION OF THE PATIENT/FAMILY/CAREGIVERS ; INDEPENDENTLY INTERPRETING RESULTS (TESTS, LABS, PROCEDURES, IMAGING) AND COMMUNICATING AND EXPLAINING RESULTS TO THE PATIENT/FAMILY/CAREGIVERS 3. COORDINATION OF CARE; PREPARING AND PRINTING DISCHARGE INSTRUCTIONS AND ANY EDUCATIONAL MATERIAL FOR THE PATIENT/FAMILY/CAREGIVERS . DOCUMENTING CLINICAL INFORMATION IN THE ELECTRONIC MEDICAL RECORD 4. REVIEWING OARRS NEEDED MDM 1) COMPLEXITY: 1 ACUTE ILLNESS, 1 STABLE CHRONIC CONDITION, OR 2 MINOR PROBLEMS ADDRESSED 2)DATA: TESTS INTERPRETED AND OR ORDERED, TOOK INDEPENDENT HISTORY OR RECORDS REVIEWED 3)RISK: LOW RISK DUE TO NATURE OF MEDICAL CONDITIONS/COMORBIDITY OR MEDICATIONS ORDERED OR SURGICAL OR PROCEDURE REFERRAL Chief Complaint An interactive audio and video telecommunication system which permits real time communications between the patient (at the originating site) and provider (at the distant site) was utilized to provide this telehealth service. Verbal consent was requested and obtained from KRISHAN BURNHAM on this date, 09/10/2020 04:00 PM , for a telehealth visit. VIRTUAL: [phone]. Cpap not working History of Present IllnessVIRTUAL APPOINTMENT BEING PERFORMED DUE TO COVID-19 (CORONAVIRUS) Presents today for FACE TO FACE FOR A [...] NECESSARY FOR HIM TO HAVE A NEW MACHINE. PARKINSON'S- STABLE DIVERTICULOSIS- STABLE Review of Systems Constitutional: not feeling poorly, no fever, no recent weight gain, no recent weight loss and no chills. Eyes: no blurred vision, no diplopia and no eyesight problems. ENT: no hearing loss, no tinnitus, no earache, no sore throat, no hoarseness and no swollen glands in the neck. Cardiovascular: no chest pain, no tightness or heavy pressure, no shortness of breath, no palpitations and no lower extremity edema. Respiratory: no cough, not coughing up sputum and no wheezing that is consistent with asthma. Gastrointestinal: no change in bowel habits, no diarrhea, no constipation, no bloody stools, no nausea, no vomiting, no abdominal pain, no signs and symptoms of ulcer disease, no tyler colored stools and no intolerance to fatty foods. Genitourinary: no urinary frequency, no dysuria, no hematuria, no burning sensation during urination, urinary stream is not smaller and urinary stream does not start and stop. Musculoskeletal: no arthralgias, no joint stiffness, no muscle weakness, no back pain and no difficulty walking. Skin: no rashes, no change in skin color and pigmentation, no skin lesions and no skin lumps. Neurological: no headaches, no dizziness, no seizures, no tingling, no numbness, no signs and symptoms of stroke and no limb weakness. Psychiatric: sleep disturbances, but no confusion, no memory lapses or loss, no depression, no anxiety and not suicidal. 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 Normal [employer] Tobacco Screening.on 021 Fall risk assessment a) No falls within the last year [facility] Internal Medicine Work Phone: Tobacco use status CPHS b) No M [facility] Internal Medicine Work Phone: Medicare Annual Wellness Vis itoanne 06-03-2020 Medicare Annual Wellness Visit *Chief Complaint MEDICARE WELLNESS + 2 WEEK FOLLOW UP WART ON BOTTOM OF THE FOOT. PT HAS NO COMPLAINTS TODAY. Adult Risk Screening Pain Scale: On a scale of 0 to 10, the patient rates the pain at 0. History of Present Illness The patient is being seen for the subsequent annual wellness visit. Past Medical, Surgical and Family History: reviewed and updated in chart. Interval History: Patient has not been hospitalized previously. Medications and Supplements: Medications and supplements, including calcium and vitamins reviewed and updated in chart. No, the patient is not using opioids. Patient Self Assessment of Health Status: good. Tobacco use: Non-User Alcohol use: Non-User Illicit drug use: Non-User Current diet: well balanced diet, does consume adequate fluids and does consume caffeine. Exercise Frequency: regularly. Depression/Suicide Screening: . During the past 2 weeks, the patient has not felt down, depressed or hopeless. During the past 2 weeks, the patient has not felt little interest or pleasure in doing things. Hearing Impairment: Patient has significant hearing impairment, bilaterally, He uses a hearing aid. Cognitive Impairment: No cognitive impairment observed, patient or family reported no cognitive impairment. Bathing: performs independently. Dressing: performs independently. Walking: performs independently. Toileting: performs independently. Feeding: performs independently. Personal Hygiene: performs independently. Bowels: continent. Bladder: continent. Managing Finances: performs independently. Shopping: performs independently. Managing Medications: performs independently. Housework / Basic Home Maintenance: performs independently. Handling Transportation: performs independently. Preparing Meals: performs independently. Using the Telephone/ Communication Devices: performs independently. Falls Risk Screening:. KRISHAN has not fallen in the last 6 months. Home safety risk factors: no grab bars in the bathroom. Presents today for MEDICARE WELLNESS AND 1 WEEK F/U CYRO TO RIGHT FOOT. C/O RIGHT PLANTAR WART THAT REMAINS AFTER TX modifying factors consists of CRYO WITH LIQUID NITROGEN PERFORMED ON 05/18/[address] DELATORRE associated symptoms consist of HE STATES THE WART IS MUCH SMALLER BUT REMAINS. prior treatment consists of medication LIQUID NITROGEN HTN- STABLE DIVERTICULOSIS- HE IS DOING WELL SINCE HAVING ABD SURGERY. DENIES FURTHER ABD PAIN NOCTURIA- FOLLOWS WITH UROLOGY DR. MARISCAL. LAST SEEN 02/03/2020 AND IS TO F/U IN 1 YEAR PTSD- STABLE Review of Systems Constitutional: not feeling poorly, no fever, no recent weight gain, no recent weight loss and no chills. Eyes: no blurred vision, no diplopia and no eyesight problems. ENT: no hearing loss, no tinnitus, no earache, no sore throat, no hoarseness and no swollen glands in the neck. Cardiovascular: no chest pain, no tightness or heavy pressure, no shortness of breath, no palpitations and no lower extremity edema. Respiratory: no cough, not coughing up sputum and no wheezing that is consistent with asthma. Gastrointestinal: no change in bowel habits, no diarrhea, no constipation, no bloody stools, no nausea, no vomiting, no abdominal pain, no signs and symptoms of ulcer disease, no tyler colored stools and no intolerance to fatty foods. Genitourinary: no urinary frequency, no dysuria, no hematuria, no burning sensation during urination, urinary stream is not smaller and urinary stream does not start and stop. Musculoskeletal: no arthralgias, no joint stiffness, no muscle weakness, no back pain and no difficulty walking. Skin: skin lesion, but no rashes, no change in skin color and pigmentation and no skin lumps. Neurological: no headaches, no dizziness, no seizures, no tingling, no numbness, no signs and symptoms of stroke and no limb weakness. Psychiatric: no confusion, no memory lapses or loss, no depression, no sleep disturbances, no anxiety and not suicidal. 10 SYSTEMS REVIEWED AND NEGATIVE, WHICH THE EXCEPTION OF HPI LISTED ABOVE *Active Problems Benign essential hypertension (401.1) (I10) Chronic RUQ pain (789.01,338.29) (R10.11,G89.29) Coronary artery disease (414.00) (I25.10) Cough (786.2) (R05) Deficiency of other vitamins (269.1) (E56.8) Diverticulitis, colon (562.11) (K57.32) Diverticulosis (562.10) (K57.90) Erectile dysfunction (607.84) (N52.9) Fatigue (780.79) (R53.83) Fibrosis of liver (571.5) (K74.00) Headache (784.0) (R51.9) Hypogonadism in male (257.2) (E29.1) Low HDL (under 40) (272.5) (E78.6) Low iron (280.9) (E61.1) Low serum testosterone level (790.99) (R79.89) Low vitamin D level (790.6) (R79.89) Morbid obesity (278.01) (E66.01) Nocturia (788.43) (R35.1) Obesity due to excess calories (278.00) (E66.09) Oral thrush (112.0) (B37.0) Plantar wart (078.12) (B07.0) Prediabetes (790.29) (R73.03) Primary Parkinson's disease (332.0) (G20) Primary Parkinson's disease (more content not included)... Normal [employer] Office Visit (Internal Medic ine)on 05-18-2020 Follow-up visit Diagnoses/Problems Assessed Plantar wart (078.12) (B07.0) Primary Parkinson's disease (332.0) (G20)1 Primary Parkinson's disease1 1 Amended By: Panchito Delatorre; May 18 2020 3:46 PM ESTPatient Discussion/Summary F/U 1 WEEK FOR CRYO Provider Impressions MONITOR BP GOAL BP LOWER THAN 130/80 LOW SALT EXERCISE DAILY PD STABLE1 1 Amended By: Panchito Delatorre; May 18 2020 3:46 PM ESTChief Complaint PT HERE CO WART RIGHT ARCH OF FOOT STARTING TO GET PAINFUL History of Present IllnessRIGHT FOOT WART Review of Systems Constitutional: not feeling poorly, no fever, no recent weight gain and no recent weight loss. Eyes: no blurred vision and no diplopia. ENT: no hearing loss, no tinnitus, no earache, no sore throat, no hoarseness and no swollen glands in the neck. Cardiovascular: no chest pain, no tightness or heavy pressure, no shortness of breath, no palpitations and no lower extremity edema. Respiratory: no cough, not coughing up sputum and no wheezing that is consistent with asthma. Gastrointestinal: no change in bowel habits, no diarrhea, no constipation, no bloody stools, no nausea, no vomiting, no abdominal pain, no signs and symptoms of ulcer disease, no tyler colored stools and no intolerance to fatty foods. Genitourinary: no urinary frequency, no dysuria, no hematuria, no burning sensation during urination, urinary stream is not smaller and urinary stream does not start and stop. Musculoskeletal: no arthralgias, no joint stiffness, no muscle weakness, no back pain and no difficulty walking. Skin: no rashes, no change in skin color and pigmentation, no skin lesions and no skin lumps. Neurological: no headaches, no dizziness, no seizures, no tingling, no numbness, no signs and symptoms of stroke and no limb weakness. Psychiatric: no confusion, no memory lapses or loss, no depression and no sleep disturbances. Endocrine: no goiter, no thyroid disorder, no diabetes mellitus, no excessive thirst, no dry skin, no cold intolerance, no heat intolerance and no increased urinary frequency. Hematologic/Lymphatic: is not slow to heal, does not bleed easily, does not bruise easily, no thrombophlebitis, no anemia and no history of blood transfusion. All other systems have been reviewed and are negative for complaint. Active Problems Problems Benign essential hypertension (401.1) (I10) Chronic RUQ pain (789.01,338.29) (R10.11,G89.29) Coronary artery disease (414.00) (I25.10) Cough (786.2) (R05) Deficiency of other vitamins (269.1) (E56.8) Diverticulitis, colon (562.11) (K57.32) Diverticulosis (562.10) (K57.90) Erectile dysfunction (607.84) (N52.9) Fatigue (780.79) (R53.83) Fibrosis of liver (571.5) (K74.00) Headache (784.0) (R51.9) Hypogonadism in male (257.2) (E29.1) Low HDL (under 40) (272.5) (E78.6) Low iron (280.9) (E61.1) Low serum testosterone level (790.99) (R79.89) Low vitamin D level (790.6) (R79.89) Morbid obesity (278.01) (E66.01) Nocturia (788.43) (R35.1) Obesity due to excess calories (278.00) (E66.09) Oral thrush (112.0) (B37.0) Prediabetes (790.29) (R73.03) Primary Parkinson's disease (332.0) (G20) Primary Parkinson's disease Prostatitis (601.9) (N41.9) PTSD (post-traumatic stress disorder) (309.81) (F43.10) Right inguinal pain (789.03) (R10.31) Sinus congestion (478.19) (R09.81) Splenomegaly (789.2) (R16.1) Steatosis, liver (571.8) (K76.0) Testicular hypofunction (257.2) (E29.1) Past Medical History Problems History of colonic polyps (V12.72) (Z86.010) History of Prostate cancer screening (V76.44) (Z12.5) 0.7ng/ml - 04/30/19 12/28/16 - 0.8 Surgical History Problems History of Appendectomy History of Cholecystectomy History of Colonoscopy NORMAL PER PT History of Tonsillectomy Family History Mother Family history of Blockage of coronary artery of heart Family history of cardiac disorder (V17.49) (Z82.49) Family history of hypercholesterolemia (V18.19) (Z83.42) Family history of hypertension (V17.49) (Z82.49) Family history of malignant neoplasm of skin (V16.8) (Z80.8) MELANOMA Family history of rheumatoid arthritis (V17.7) (Z82.61) Family history of type 2 diabetes mellitus (V18.0) (Z83.3) Father Family history of Blockage of coronary artery of heart Family history of cataracts (V19.19) (Z83.518) Family history of colonic diverticulitis (V18.59) (Z83.79) Family history of depression (V17.0) (Z81.8) Family history of glaucoma (V19.11) (Z83.511) Family history of hypercholesterolemia (V18.19) (Z83.42) Family history of hypertension (V17.49) (Z82.49) Family history of myocardial infarction (V17.3) (Z82.49) AGE 58 Family history of ulcerative colitis (V18.59) (Z83.79) Family history of H/O heart artery stent Brother Family history of type 2 diabetes mellitus (V18.0) (Z83.3) Social History Problems Caffeine use (V49.89) (Z78.9) Denies alcohol consumption (V49.89) (Z78.9) Does not use illicit drugs (more content not included)... Normal [facility] CORONAVIRUS 2019 BY PCRon SARS-CoV-2 (COVID-19) RNA GITA+probe Ql (Unsp spec) Not detected Normal Not Detected [facility] Comment on above: Result Comment: This assay is designed to detect the N, ORF1ab and/or S genes of SARS-CoV-2 via nucleic acid amplification. A Negative (NOT DETECTED) result does not preclude 2019-nCoV infection since the adequacy of sample collection and/or low viral burden may result in presence of viral nucleic acids below the clinical sensitivity of this test method. Negative (NOT DETECTED) result should not be used as the sole basis for treatment or other patient management decisions. Rather negative results should be combined with clinical observations, patient history, and epidemiological information to make patient management decisions. Fact sheet for providers: https://www.fda.gov/media/013930/download Fact sheet for patients: https://www.fda.gov/media/736620/download This test has received FDA Emergency Use Authorization (EUA) and has been verified by [facility] ([facility]). This test is only authorized for the duration of time that circumstances exist to justify the authorization of the emergency use of in vitro diagnostic tests for the detection of SARS-CoV-2 virus and/or diagnosis of COVID-19 infection under section 564(b)(1) of the Act, 21 U.S.C. 360bbb-3(b)(1), unless the authorization is terminated or revoked sooner. [facility] is certified under CLIA-88 as qualified to perform high complexity testing. Testing is performed in the [facility] laboratories located at [address] [place] [address]. Performed By: #### C OV19 #### [facility] [id number] [place] [address]. [place] [address] CORONAVIRUS 2019 BY PCRon Lab Specimen Source Nasal, Nasopharyngeal Normal [facility] Comment on above: Performed By: #### C OV19 #### [facility] [address] [place] [address] VL DUP LOWER EXTREMITY VENOU S RIGHTon 08-14-2018 VL DUP LOWER EXTREMITY VENOUS RIGHT Radiology exam is complete. No Radiologist dictation. Please follow up with ordering provider. Final result Normal [facility] Comp Metabolic Profon 2018 (cont.) Normal [facility] Comment on above: Result Comment: Aver age GFR for 50-59 years old: 93 mL/min/1.73sq m Chronic Kidney Disease: <60 mL/min/1.73sq m Kidney failure: <15 mL/min/1.73sq m eGFR calculated using average adult body mass. Additional eGFR calculator available at: http://www.Comply365/multiple_crcl_2011.htm Performed By: #### F T3, FT4, CDP, DIME, TROPI, CP, PTT, PT, TSH #### [facility] [address] [place] [address] Albumin mass conc 4.7 g/dL Normal 3.5-5.2 [facility] Comment on above: Performed By: #### F T3, FT4, CDP, DIME, TROPI, CP, PTT, PT, TSH #### [facility] [address] [place] [address] Alkaline Phos 70 U/L Normal 40-129 [facility] Comment on above: Performed By: #### F T3, FT4, CDP, DIME, TROPI, CP, PTT, PT, TSH #### [facility] [address] [place] [address] ALT enzyme act/vol 28 U/L Normal 5-41 [facility] Comment on above: Performed By: #### F T3, FT4, CDP, DIME, TROPI, CP, PTT, PT, TSH #### [facility] [address] [place] [address] Anion gap molar conc 11 mmol/L Normal 9-17 [facility] Comment on above: Performed By: #### F T3, FT4, CDP, DIME, TROPI, CP, PTT, PT, TSH #### [facility] [address] [facility] [place] [address] AST enzyme act/vol 18 U/L Normal <40 [facility] Comment on above: Performed By: #### F T3, FT4, CDP, DIME, TROPI, CP, PTT, PT, TSH #### [facility] [address] [facility] [place] [address] Bilirubin Ql (U) 0.48 mg/dL Normal 0.30-1.20 [facility] Comment on above: Performed By: #### F T3, FT4, CDP, DIME, TROPI, CP, PTT, PT, TSH #### [facility] [address] [facility] [place] [address] BUN/CRE Ratio 11 Normal 9-20 [facility] Comment on above: Performed By: #### F T3, FT4, CDP, DIME, TROPI, CP, PTT, PT, TSH #### [facility] [address] [facility] [place] [address] Calcium mass conc 9.1 mg/dL Normal 8.6-10.4 [facility] Comment on above: Performed By: #### F T3, FT4, CDP, DIME, TROPI, CP, PTT, PT, TSH #### [facility] [address] [facility] [place] [address] Chloride molar conc 104 mmol/L Normal 98-107 [facility] Comment on above: Performed By: #### F T3, FT4, CDP, DIME, TROPI, CP, PTT, PT, TSH #### [facility] [address] [facility] [place] [address] CO2 molar conc 26 mmol/L Normal 20-31 [facility] Comment on above: Performed By: #### F T3, FT4, CDP, DIME, TROPI, CP, PTT, PT, TSH #### [address] [place] [address] Creatinine mass conc 1.14 mg/dL Normal 0.70-1.20 [facility] Comment on above: Performed By: #### F T3, FT4, CDP, DIME, TROPI, CP, PTT, PT, TSH #### [facility] [address] [facility] [place] [address] GFR, Amer >60 Normal >60 [facility] Comment on above: Performed By: #### F T3, FT4, CDP, DIME, TROPI, CP, PTT, PT, TSH #### [facility] [address] [facility] [place] [address] GFR,non Amer >60 Normal >60 [facility] Comment on above: Performed By: #### F T3, FT4, CDP, DIME, TROPI, CP, PTT, PT, TSH #### [facility] [address] [facility] [place] [address] Glucose mass conc 133 mg/dL High 70-99 [facility] Comment on above: Performed By: #### F T3, FT4, CDP, DIME, TROPI, CP, PTT, PT, TSH #### [facility] [address] [facility] [place] [address] Potassium molar conc 4.9 mmol/L Normal 3.7-5.3 [facility] Comment on above: Performed By: #### F T3, FT4, CDP, DIME, TROPI, CP, PTT, PT, TSH #### [facility] [address] [facility] [place] [address] Protein mass conc 7.4 g/dL Normal 6.4-8.3 [facility] Comment on above: Performed By: #### F T3, FT4, CDP, DIME, TROPI, CP, PTT, PT, TSH #### [facility] [address] [facility] [place] [address] Sodium molar conc 141 mmol/L Normal 135-144 [facility] Comment on above: Performed By: #### F T3, FT4, CDP, DIME, TROPI, CP, PTT, PT, TSH #### [facility] [address] [facility] [place] [id number] Urea nitrogen mass conc 13 mg/dL Normal 6-20 [facility] Comment on above: Performed By: #### F T3, FT4, CDP, DIME, TROPI, CP, PTT, PT, TSH #### [facility] [address] [facility] [place] [phone] Albumin/Globulin mass ratio NOT REPORTED Normal 1.0-2.5 [facility] Comment on above: Performed By: #### F T3, FT4, CDP, DIME, TROPI, CP, PTT, PT, TSH #### [facility] [address] [facility] [place] [address] Staging: NOT REPORTED Normal [facility] Comment on above: Performed By: #### F T3, FT4, CDP, DIME, TROPI, CP, PTT, PT, TSH #### [facility] [address] [facility]. [place] [phone] Lipid Profileon 06-28-2018 Cholesterol in HDL mass conc 28 mg/dL Low >40 [facility] Comment on above: Result Comment: HDL Guidelines: <40 Undesirable 40-59 Borderline >59 Desirable Performed By: #### F T3, FT4, CDP, DIME, TROPI, CP, PTT, PT, TSH #### [facility] [address] [facility] [place] [address] [phone] Cholesterol in LDL mass conc 57 mg/dL Normal 0-130 [facility] Comment on above: Result Comment: LDL Guidelines: <100 Desirable 100-129 Near to/above Desirable 130-159 Borderline >159 Undesirable Direct (measured) LDL and calculated LDL are not interchangeable tests. Performed By: #### F T3, FT4, CDP, DIME, TROPI, CP, PTT, PT, TSH #### [facility] [address] [facility] [place] [address] Cholesterol mass conc 130 mg/dL Normal <200 [facility] Comment on above: Result Comment: Cholesterol Guidelines: <200 Desirable 200-240 Borderline >240 Undesirable Performed By: #### F T3, FT4, CDP, DIME, TROPI, CP, PTT, PT, TSH #### [facility] [address] [facility]. [place] [phone] Cholesterol.total/Choles terol in HDL mass ratio 4.6 {ratio} Normal <5 [facility] Comment on above: Performed By: #### F T3, FT4, CDP, DIME, TROPI, CP, PTT, PT, TSH #### [facility] [address] [facility] [place] [address] Triglyceride mass conc 226 mg/dL High <150 [facility] Comment on above: Result Comment: Triglyceride Guidelines: <150 Desirable 150-199 Borderline 200-499 High >499 Very high Based on AHA Guidelines for fasting triglyceride, November 2011. Performed By: #### F T3, FT4, CDP, DIME, TROPI, CP, PTT, PT, TSH #### [facility] [address] [place] [address] Cholesterol in VLDL mass conc NOT REPORTED Normal - [facility] Comment on above: Performed By: #### F T3, FT4, CDP, DIME, TROPI, CP, PTT, PT, TSH #### [facility] [address] [place] [address] Patient fasting?on 9 Patient fasting? yes Normal [facility] Comment on above: Performed By: #### F T3, FT4, CDP, DIME, TROPI, CP, PTT, PT, TSH #### [facility] [address] [place] [address] TSH w/reflex to FT4on 2018 Thyrotropin Qn 1.28 m[IU]/L Normal 0.30-5.00 [facility] Comment on above: Performed By: #### F T3, FT4, CDP, DIME, TROPI, CP, PTT, PT, TSH #### [facility] [address] [facility] [place] [address] Vitamin D 25 OHon 06-28-2018 Vitamin D 25 [place] 34.9 ng/mL Normal 30.0-100.0 [facility] Comment on above: Result Comment: Reference Range: Vitamin D status Range Deficiency <20 ng/mL Mild Deficiency 20-30 ng/mL Sufficiency 30-100 ng/mL Toxicity >100 ng/mL Performed By: #### F T3, FT4, CDP, DIME, TROPI, CP, PTT, PT, TSH #### [facility] [address] [facility] [place] [address] FS CBCon 02-10-2018 Erythrocyte distribution width Auto Ratio (RBC) 13.0 % Normal 11.6-14.8 [facility] Comment on above: Performed By: #### F SCBC ####Unless otherwise noted, all testing performed by [address] [id number]: [id number] Director: Marino Gaitan M.D. Hematocrit Auto Volume Fraction (Bld) 39.3 % Low 41.0-53.0 [facility] Comment on above: Performed By: #### F SCBC ####Unless otherwise noted, all testing performed by [address] [phone]: [id number] Director: Marino Gaitan M.D. Hemoglobin mass conc (Bld) 13.9 g/dL Normal 13.5-17.5 [facility] Comment on above: Performed By: #### F SCBC ####Unless otherwise noted, all testing performed by [facility] [address] [phone]: [id number] Director: Marino Gaitan M.D. Lymphocytes Auto #/vol (Bld) 1.5 K/mcL Normal 0.90-4.00 [facility] Comment on above: Performed By: #### F SCBC ####Unless otherwise noted, all testing performed by [address] [phone]: [id number] Director: Marino Gaitan M.D. Lymphocytes/100 WBC Auto (Bld) 23.7 % Normal [facility] Comment on above: Performed By: #### F SCBC ####Unless otherwise noted, all testing performed by [address] [phone]: [id number] Director: Marino Gaitan M.D. MCH Auto Entitic mass (RBC) 30.5 pg Normal 26.0-34.0 [facility] Comment on above: Performed By: #### F SCBC ####Unless otherwise noted, all testing performed by [address] [phone]: [id number] Director: Marino Gaitan M.D. MCHC Auto mass conc (RBC) 35.4 g/dL Normal 31.0-37.0 [facility] Comment on above: Performed By: #### F SCBC ####Unless otherwise noted, all testing performed by [address] [phone]: [id number] Director: Marino Gaitan M.D. MCV Auto Entitic volume (RBC) 86.4 fL Normal 80-100 [facility] Comment on above: Performed By: #### F SCBC ####Unless otherwise noted, all testing performed by [address] [phone]: [id number] Director: Marino Gaitan M.D. Neutrophils Auto #/vol (Bld) 4.0 K/mcL Normal 1.70-7.00 [facility] Comment on above: Performed By: #### F SCBC ####Unless otherwise noted, all testing performed by [address]CLIA: [id number] Director: Marino Gaitan M.D. Platelet mean volume Auto Entitic volume (Bld) 10.4 fL Normal 9.0-15.5 [facility] Comment on above: Performed By: #### F SCBC ####Unless otherwise noted, all testing performed by [address]8[address]CLIA: [id number] Director: Marino Gaitan M.D. Platelets Auto #/vol (Bld) 153 K/mcL Normal 150-400 [facility] Comment on above: Performed By: #### F SCBC ####Unless otherwise noted, all testing performed by [address] [phone]: [id number] Director: Marino Gaitan M.D. RBC Auto #/vol (Bld) 4.55 M/mcL Normal 4.50-5.90 [facility] Comment on above: Performed By: #### F SCBC ####Unless otherwise noted, all testing performed by [place] [address] [place], [place] [phone]: [id number] Director: Marino Gaitan M.D. Segmented Neut % 64.5 % Normal [facility] Comment on above: Performed By: #### F SCBC ####Unless otherwise noted, all testing performed by [address] [phone]: [id number] Director: Marino Gaitan M.D. Testing performed [facility] FSED Normal [facility] Comment on above: Result Comment: Test ing performed at [facility], [address] [place] [address]; Medical Manager Of Manufacturing Jarett Orantes Performed By: #### F SCBC ####Unless otherwise noted, all testing performed by [address] [phone]: [id number] Director: Marino Gaitan M.D. WBC Auto #/vol (Bld) 6.2 K/mcL Normal 4.5-11.0 [facility] Comment on above: Performed By: #### F SCBC ####Unless otherwise noted, all testing performed by [address] [phone]: [id number] Director: Marino Gaitan M.D. FS Comprehens Metabolic Pane shalom 02-10-2018 Albumin mass conc 3.8 g/dL Normal 3.2-5.2 [facility] Comment on above: Performed By: #### F SCMET ####Unless otherwise noted, all testing performed by [address] [phone]: [id number] Director: Marino Gaitan M.D. ALP enzyme act/vol 74 U/L Normal 40-150 [facility] [place] Comment on above: Performed By: #### F SCMET ####Unless otherwise noted, all testing performed by [address] [phone]: [id number] Director: Marino Gaitan M.D. ALT enzyme act/vol 38 U/L Normal 0-40 [facility] [place] Comment on above: Performed By: #### F SCMET ####Unless otherwise noted, all testing performed by [address] [phone]: [id number] Director: Marino Gaitan M.D. AST enzyme act/vol 28 U/L Normal 0-45 [facility] [place] Comment on above: Performed By: #### F SCMET ####Unless otherwise noted, all testing performed by [address] [phone]: [id number] Director: Marino Gaitan M.D. Bilirubin mass conc 0.8 mg/dL Normal 0.0-1.3 [facility] Comment on above: Performed By: #### F SCMET ####Unless otherwise noted, all testing performed by [address] [phone]: [id number] Director: Marino Gaitan M.D. Calcium mass conc 9.4 mg/dL Normal 8.4-10.2 [facility] Comment on above: Performed By: #### F SCMET ####Unless otherwise noted, all testing performed by [address] [phone]: [id number] Director: Marino Gaitan M.D. Chloride molar conc 103 mmol/L Normal 98-108 [facility] Comment on above: Performed By: #### F SCMET ####Unless otherwise noted, all testing performed by [address] [phone]: [id number] Director: Marino Gaitan M.D. CO2 molar conc 29 mmol/L Normal 21-32 [facility] Comment on above: Performed By: #### F SCMET ####Unless otherwise noted, all testing performed by [address] [phone]: [id number] Director: Marino Gaitan M.D. Creatinine mass conc 1.4 mg/dL High 0.50-1.30 [facility] Comment on above: Performed By: #### F SCMET ####Unless otherwise noted, all testing performed by [address] [phone]: [id number] Director: Marino Gaitan M.D. Glucose mass conc 121 mg/dL High 65-99 [facility] Comment on above: Performed By: #### F SCMET ####Unless otherwise noted, all testing performed by [address] [phone]: [id number] Director: Marino Gaitan M.D. Potassium molar conc 4.1 mmol/L Normal 3.5-5.1 [facility] Comment on above: Performed By: #### F SCMET ####Unless otherwise noted, all testing performed by [address] [phone]: [id number] Director: Marino Gaitan M.D. Protein mass conc 6.6 g/dL Normal 6.0-8.0 [facility] Comment on above: Performed By: #### F SCMET ####Unless otherwise noted, all testing performed by [address] [phone]: [id number] Director: Marino Gaitan M.D. Sodium molar conc 144 mmol/L Normal 135-145 [facility] Comment on above: Performed By: #### F SCMET ####Unless otherwise noted, all testing performed by [address] [phone]: [id number] Director: Marino Gaitan M.D. Testing performed [facility] Comment on above: Result Comment: Test ing performed at [facility], [facility] [place], [place]; Medical Manager Of Manufacturing Jarett Orantes Performed By: #### F SCMET ####Unless otherwise noted, all testing performed by [address] [phone]: [id number] Director: Marino Gaitan M.D. Urea nitrogen mass conc 12 mg/dL Normal 8-25 [facility] Comment on above: Performed By: #### F SCMET ####Unless otherwise noted, all testing performed by [address] [phone]: [id number] Director: Marino Gaitan M.D. FS Urinalysison 02-10-2018 Bilirubin,Urine Negative Normal Negative [facility] Comment on above: Performed By: #### F SUA ####Unless otherwise noted, all testing performed by [address] [phone]: [id number] Director: Marion Gaitan M.D. Blood,Urine Negative Normal Negative [facility] Comment on above: Performed By: #### F SUA ####Unless otherwise noted, all testing performed by [address] [phone]: [id number] Director: Marino Gaitan M.D. Character Clear Normal [facility] Comment on above: Performed By: #### F SUA ####Unless otherwise noted, all testing performed by [address] [phone]: [id number] Director: Marino Gaitan M.D. Color Nom (U) Yellow Normal [facility] Comment on above: Performed By: #### F SUA ####Unless otherwise noted, all testing performed by [address] [phone]: [id number] Director: Marino Gaitan M.D. Glucose Ql (U) Negative Normal Negative [facility] Comment on above: Performed By: #### F SUA ####Unless otherwise noted, all testing performed by [facility] [address] [phone]: [id number] Director: Marino Gaitan M.D. Ketone,Urine Negative Normal Negative [facility] Comment on above: Performed By: #### F SUA ####Unless otherwise noted, all testing performed by [address] [phone]: [id number] Director: Marino Gaitan M.D. Leuk.Esterase,Urine Negative Normal Negative [facility] Comment on above: Performed By: #### F SUA ####Unless otherwise noted, all testing performed by [address]: [id number] Director: Marino Gaitan M.D. Nitrite,Urine Negative Normal NEG;NEGATI VE [facility] Comment on above: Performed By: #### F SUA ####Unless otherwise noted, all testing performed by [address]CLIA: [id number] Director: Marino Gaitan M.D. pH Test strip (U) 7.0 [pH] Normal 4.5-8.0 [facility] Comment on above: Performed By: #### F SUA ####Unless otherwise noted, all testing performed by [address]CLIA: [id number] Director: Marino Gaitan M.D. Protein,Urine Negative Normal Negative [facility] Comment on above: Performed By: #### F SUA ####Unless otherwise noted, all testing performed by [address] [phone]: [id number] Director: Marino Gaitan M.D. Specific [place],Urine 1.020 Normal 1.003 -1.02 9 [facility] [facility] Comment on above: Performed By: #### F SUA ####Unless otherwise noted, all testing performed by [address] [id number]: [id number] Director: Marino Gaitan M.D. Testing performed [facility] Comment on above: Result Comment: Test ing performed at [facility], [address] [place] [address]; Medical Manager Of Manufacturing Jarett Orantes Performed By: #### F SUA ####Unless otherwise noted, all testing performed by [address] [id number]: [id number] Director: Marino Gaitan M.D. Urobilinogen,Urine 0.2 mg/dL Normal <2 [facility] Comment on above: Performed By: #### F SUA ####Unless otherwise noted, all testing performed by [address] [id number]: [id number] Director: Marino Gaitan M.D. Lactic Acidon 02-10-2018 Lactate molar conc 1.0 mmol/L Normal 0.6-2.0 [facility] Comment on above: Performed By: #### L A ####Unless otherwise noted, all testing performed by [address] [id number]: [id number] Director: Marino Gaitan M.D. CARDIAC STRESS TESTon 2017 CARDIAC STRESS TEST [address] [address] CARDIAC STRESS TEST PATIENT NAME: KRISHAN BURNHAM : 1965 MED REC NO: [id number] ROOM: ACCOUNT NO: [id number] ADMIT DATE: 12/29/2017 PROVIDER: Leif Mckeon DATE OF STUDY: 12/29/2017 Cardiovascular Diagnostics Department Ordering Provider: Steve Barrios MD Primary Care Provider: Steve Barrios MD Interpreting Physician: Leif Mckeon MD MYOCARDIAL PERFUSION STRESS IMAGING The stress ECG results are reported separately. NUCLEAR IMAGING RESULTS: The overall quality of the study is fair. No significant attenuation artifact was seen. There is no evidence of abnormal lung uptake. Additionally, the right ventricle appears normal. The left ventricular cavity is noted to be normal in size on stress images. There is no evidence of transient ischemic dilatation (TID) of the left ventricle. Gated SPECT imaging reveals normal myocardial thickening and wall motion with a calculated left ventricular ejection fraction (EF) of 61%. The rest images demonstrated a small perfusion abnormality of moderate intensity in the inferior region(s) which is most likely due to artifact. On stress imaging, a small perfusion abnormality of moderate intensity was noted in the inferolateral region(s) which may be due to artifact. IMPRESSION: 1. Abnormal myocardial perfusion study. There is a small perfusion defect of moderate intensity in the inferolateral region(s) during stress imaging, which is most consistent with ischemia but may be due to artifact. 2. Global left ventricular systolic function was normal with an EF of 61% without regional wall motion abnormalities. Overall these results are most consistent with an intermediate risk scan. Depending on the patient's symptoms and level of clinical suspicion, aggressive medical management vs. additional testing by coronary angiography may be indicated. The results of this test were discussed with Dr. Singh on 12/29/2017. LEIF MCKEON ASHISH/SHILPA_LUCY Job#: [id number] Doc#: Unknown CC: Steve Singh Normal [facility] CARDIAC STRESS TEST [facility] [address] [place] [address] CARDIAC STRESS TEST PATIENT NAME: KRISHAN BURNHAM : 1965 MED REC NO: [id number] ROOM: ACCOUNT NO: [id number] ADMIT DATE: 12/29/2017 PROVIDER: Josias Singh DATE OF STUDY: 12/29/2017 LEXISCAN CARDIOLITE STRESS TEST: INDICATION: Chest pain, unable to walk treadmill. IMPRESSION: 1. We gave 0.4 mg of Lexiscan intravenously. 2. This was followed in 20 seconds by Cardiolite infusion. 3. There was no chest pain. 4. There was no ST depression. 5. It was an overall negative Lexiscan stress test. 6. Cardiolite to follow. JOSIAS SINGH [id number] Doc#: [id number] CC: Normal [facility] NM MYOCARDIAL SPECT REST EXE RCISE OR RXon 12-29-2017 NM MYOCARDIAL SPECT REST EXERCISE OR RX Radiology exam is complete. No Radiologist dictation. Please follow up with ordering provider. Final result Normal [facility] Progress Noteon 12-22-2017 HIM IP Note OR Machine Technician Normal [facility] APTTon 12-09-2017 aPTT Coag time (Bld) 26.1 s Normal 21.0-33.0 [facility] Comment on above: Result Comment: PTT Therapeutic Range: 61.7-88.4 Therapeutic range corresponds to plasma heparin levels of 0.3-0.7 U/mL. Performed By: #### F T3, FT4, CDP, DIME, TROPI, CP, PTT, PT, TSH #### [address] [place] [address] CBC with Diffon 12-09-2017 Abs. Basophil 0.00 k/uL Normal 0.0-0.2 [facility] Comment on above: Performed By: #### F T3, FT4, CDP, DIME, TROPI, CP, PTT, PT, TSH #### [facility] [address] [facility] [place] [address] Abs.Neutrophil (Seg) 4.10 k/uL Normal 2.1-6.5 [facility] Comment on above: Performed By: #### F T3, FT4, CDP, DIME, TROPI, CP, PTT, PT, TSH #### [facility] [address] [facility] [place] [address] Auto Diff Performed YES Normal [facility] Comment on above: Performed By: #### F T3, FT4, CDP, DIME, TROPI, CP, PTT, PT, TSH #### [facility] [address] [facility] [place] [address] Basophils/100 WBC (Bld) 0 % Normal 0-2 [facility] Comment on above: Performed By: #### F T3, FT4, CDP, DIME, TROPI, CP, PTT, PT, TSH #### [address] [place] [address] Eosinophils #/vol (Bld) 0.20 10*3/uL Normal 0.0-0.4 [facility] Comment on above: Performed By: #### F T3, FT4, CDP, DIME, TROPI, CP, PTT, PT, TSH #### [address] [place] [address] Eosinophils/100 WBC (Bld) 3 % Normal 0-5 [facility] Comment on above: Performed By: #### F T3, FT4, CDP, DIME, TROPI, CP, PTT, PT, TSH #### [address] [place] [address] Erythrocyte distribution width Ratio (RBC) 13.2 % Normal 12.1-15.2 [facility] Comment on above: Performed By: #### F T3, FT4, CDP, DIME, TROPI, CP, PTT, PT, TSH #### [address] [place] [address] Hematocrit Volume Fraction (Bld) 47.5 % Normal 41-53 [facility] Comment on above: Performed By: #### F T3, FT4, CDP, DIME, TROPI, CP, PTT, PT, TSH #### [facility] [address] [facility] [place] [address] Hemoglobin mass conc (Bld) 15.9 g/dL Normal 13.5-17.5 [facility] Comment on above: Performed By: #### F T3, FT4, CDP, DIME, TROPI, CP, PTT, PT, TSH #### [facility] [address] [facility] [place] [address] Lymphocytes #/vol (Bld) 1.30 10*3/uL Normal 1.0-4.8 [facility] Comment on above: Performed By: #### F T3, FT4, CDP, DIME, TROPI, CP, PTT, PT, TSH #### [facility] [address] [place] [address] Lymphocytes/100 WBC (Bld) 22 % Normal 13-44 [facility] Comment on above: Performed By: #### F T3, FT4, CDP, DIME, TROPI, CP, PTT, PT, TSH #### [facility] [address] [place] [address] MCH Entitic mass (RBC) 29.9 pg Normal 26-34 [facility] Comment on above: Performed By: #### F T3, FT4, CDP, DIME, TROPI, CP, PTT, PT, TSH #### [facility] [address] [place] [address] MCHC mass conc (RBC) 33.5 g/dL Normal 31-37 [facility] Comment on above: Performed By: #### F T3, FT4, CDP, DIME, TROPI, CP, PTT, PT, TSH #### [facility] [address] [place] [address] MCV Entitic volume (RBC) 89.3 fL Normal 80-100 [facility] Comment on above: Performed By: #### F T3, FT4, CDP, DIME, TROPI, CP, PTT, PT, TSH #### [facility] [address] [facility] [place] [address] Monocytes #/vol (Bld) 0.60 10*3/uL Normal 0.0-1.0 [facility] Comment on above: Performed By: #### F T3, FT4, CDP, DIME, TROPI, CP, PTT, PT, TSH #### [facility] [address] [facility] [place] [address] Monocytes/100 WBC (Bld) 10 % High 5-9 [facility] Comment on above: Performed By: #### F T3, FT4, CDP, DIME, TROPI, CP, PTT, PT, TSH #### [facility] [address] [facility] [place] [address] Neutrophil (Seg) 65 % Normal 39-75 [facility] Comment on above: Performed By: #### F T3, FT4, CDP, DIME, TROPI, CP, PTT, PT, TSH #### [address] [place] [address] Platelets #/vol (Bld) 157 10*3/uL Normal 140-450 [facility] Comment on above: Performed By: #### F T3, FT4, CDP, DIME, TROPI, CP, PTT, PT, TSH #### [facility] [address] [facility] [place] [address] RBC #/vol (Bld) 5.32 10*6/uL Normal 4.5-5.9 [facility] Comment on above: Performed By: #### F T3, FT4, CDP, DIME, TROPI, CP, PTT, PT, TSH #### [place] [address] WBC #/vol (Bld) 6.2 10*3/uL Normal 3.5-11.0 [facility] Comment on above: Performed By: #### F T3, FT4, CDP, DIME, TROPI, CP, PTT, PT, TSH #### [place] [address] Abs.Imm.Granulocyte NOT REPORTED Normal 0.00-0.30 [facility] Comment on above: Performed By: #### F T3, FT4, CDP, DIME, TROPI, CP, PTT, PT, TSH #### [place] [address] Immature granulocytes #/vol (Bld) NOT REPORTED Normal 0 [facility] Comment on above: Performed By: #### F T3, FT4, CDP, DIME, TROPI, CP, PTT, PT, TSH #### [place] [address] NRBC Automated NOT REPORTED Normal [facility] Comment on above: Performed By: #### F T3, FT4, CDP, DIME, TROPI, CP, PTT, PT, TSH #### [place] [address] Platelet mean volume Entitic volume (Bld) NOT REPORTED Normal 6.0-12.0 [facility] Comment on above: Performed By: #### F T3, FT4, CDP, DIME, TROPI, CP, PTT, PT, TSH #### [place] [address] Platelets #/vol (Bld) NOT REPORTED Normal [facility] Comment on above: Performed By: #### F T3, FT4, CDP, DIME, TROPI, CP, PTT, PT, TSH #### [place] [address] RBC morphology finding Nom (Bld) NOT REPORTED Normal [facility] Comment on above: Performed By: #### F T3, FT4, CDP, DIME, TROPI, CP, PTT, PT, TSH #### [facility] [address] [place] [address] WBC Morphology NOT REPORTED Normal [facility] Comment on above: Performed By: #### F T3, FT4, CDP, DIME, TROPI, CP, PTT, PT, TSH #### [facility] [address] [place] [address] CT HEAD WO CONTRASTon 2017 CT HEAD WO CONTRAST EXAM: CT HEAD WO CON TRAST CLINICAL STATEMENT: Numbness. COMPARISON: None. TECHNIQUE: CT examination of the head without IV contrast. Dose reduction techniques were achieved by using automated exposure control and/or adjustment of mA and/or kV according to patient size and/or use of iterative reconstruction technique. FINDINGS: The brain parenchyma, ventricles, and basal cisterns are within normal limits. No acute intracranial hemorrhage, mass effect, midline shift, or abnormal extraaxial collection. No large territorial infarct is seen; although, CT is less sensitive for detection of early ischemia. The calvarium and paranasal sinuses are intact. IMPRESSION: No acute intracranial abnormality. Interpreted by: Krishan Miranda MD Signed by: Krishan Miranda MD 12/09/17 Final result Normal [facility] Comp Metabolic Profon 2017 (cont.) Normal [facility] Comment on above: Result Comment: Aver age GFR for 50-59 years old: 93 mL/min/1.73sq m Chronic Kidney Disease: <60 mL/min/1.73sq m Kidney failure: <15 mL/min/1.73sq m eGFR calculated using average adult body mass. Additional eGFR calculator available at: http://[email or web address].Manifest/multiple_crcl_2012.htm Performed By: #### F T3, FT4, CDP, DIME, TROPI, CP, PTT, PT, TSH #### [facility] [address] [place] [address] Albumin mass conc 4.4 g/dL Normal 3.5-5.2 [facility] Comment on above: Performed By: #### F T3, FT4, CDP, DIME, TROPI, CP, PTT, PT, TSH #### [facility] [address] [facility] [place] [address] Alkaline Phos 75 U/L Normal 40-129 [facility] Comment on above: Performed By: #### F T3, FT4, CDP, DIME, TROPI, CP, PTT, PT, TSH #### [facility] [address] [facility] [place] [address] ALT enzyme act/vol 38 U/L Normal 5-41 [facility] Comment on above: Performed By: #### F T3, FT4, CDP, DIME, TROPI, CP, PTT, PT, TSH #### [facility] [address] [facility] [place] [address] Anion gap molar conc 10 mmol/L Normal 9-17 [facility] Comment on above: Performed By: #### F T3, FT4, CDP, DIME, TROPI, CP, PTT, PT, TSH #### [facility] [address] [facility] [place] [address] AST enzyme act/vol 23 U/L Normal <40 [facility] Comment on above: Performed By: #### F T3, FT4, CDP, DIME, TROPI, CP, PTT, PT, TSH #### [facility] [address] [facility] [place] [address] Bilirubin Ql (U) 0.36 mg/dL Normal 0.30-1.20 [facility] Comment on above: Performed By: #### F T3, FT4, CDP, DIME, TROPI, CP, PTT, PT, TSH #### [facility] [address] [facility] [place] [address] BUN/CRE Ratio 16 Normal 9-20 [facility] Comment on above: Performed By: #### F T3, FT4, CDP, DIME, TROPI, CP, PTT, PT, TSH #### [facility] [address] [facility] [place] [address] Calcium mass conc 9.5 mg/dL Normal 8.6-10.4 [facility] Comment on above: Performed By: #### F T3, FT4, CDP, DIME, TROPI, CP, PTT, PT, TSH #### [facility] [address] [facility] [place] [address] Chloride molar conc 104 mmol/L Normal 98-107 [facility] Comment on above: Performed By: #### F T3, FT4, CDP, DIME, TROPI, CP, PTT, PT, TSH #### [address] [place] [address] CO2 molar conc 24 mmol/L Normal 20-31 [facility] Comment on above: Performed By: #### F T3, FT4, CDP, DIME, TROPI, CP, PTT, PT, TSH #### [facility] [address] [facility] [place] [address] Creatinine mass conc 0.93 mg/dL Normal 0.70-1.20 [facility] Comment on above: Performed By: #### F T3, FT4, CDP, DIME, TROPI, CP, PTT, PT, TSH #### [facility] [address] [facility] [place] [address] GFR, Amer >60 Normal >60 [facility] Comment on above: Performed By: #### F T3, FT4, CDP, DIME, TROPI, CP, PTT, PT, TSH #### [address] [place] [address] GFR,non Amer >60 Normal >60 [facility] Comment on above: Performed By: #### F T3, FT4, CDP, DIME, TROPI, CP, PTT, PT, TSH #### [facility] [address] [facility] [place] [address] Glucose mass conc 157 mg/dL High 70-99 [facility] Comment on above: Performed By: #### F T3, FT4, CDP, DIME, TROPI, CP, PTT, PT, TSH #### [facility] [address] [facility] [place] [address] Potassium molar conc 3.9 mmol/L Normal 3.7-5.3 [facility] Comment on above: Performed By: #### F T3, FT4, CDP, DIME, TROPI, CP, PTT, PT, TSH #### [facility] [address] [facility] [place] [address] Protein mass conc 7.2 g/dL Normal 6.4-8.3 [facility] Comment on above: Performed By: #### F T3, FT4, CDP, DIME, TROPI, CP, PTT, PT, TSH #### [facility] [address] [facility] [place] [address] Sodium molar conc 138 mmol/L Normal 135-144 [facility] Comment on above: Performed By: #### F T3, FT4, CDP, DIME, TROPI, CP, PTT, PT, TSH #### [facility] [address] [facility] [place] [address] Urea nitrogen mass conc 15 mg/dL Normal 6-20 [facility] Comment on above: Performed By: #### F T3, FT4, CDP, DIME, TROPI, CP, PTT, PT, TSH #### [facility] [address] [facility] [place] [address] Albumin/Globulin mass ratio NOT REPORTED Normal 1.0-2.5 [facility] Comment on above: Performed By: #### F T3, FT4, CDP, DIME, TROPI, CP, PTT, PT, TSH #### [facility] [address] [place] [address] Staging: NOT REPORTED Normal [facility] Comment on above: Performed By: #### F T3, FT4, CDP, DIME, TROPI, CP, PTT, PT, TSH #### [facility] [address] [place] [address] D-Dimer Teston 12-09-2017 D-Dimer Test <0.19 Normal 0.00-0.50 [facility] Comment on above: Result Comment: Elevated levels of D dimer can be seen in any state of coagulation activation including DVT, PE, arterial thrombosis, DIC, inflamatory disease, trauma, malignancy, sepsis, infection, hematoma, liver disease, post surgical state, , atherosclerosis, old age. When combined with a low clinical probability, a D dimer value of <0.50 mg/L is considered negative for DVT and PE (negative predictive value of 98%). Performed By: #### F T3, FT4, CDP, DIME, TROPI, CP, PTT, PT, TSH #### [facility] [address] [place] [address] PTon 12-09-2017 INR Coag RelTime (PPP) 1.1 {INR} Normal [facility] Comment on above: Result Comment: * THERAPY INDICATIONS * REFERENCE RANGES Pts not on anti-coagulants 1.0 - 1.5 INR Low risk pts on anti-coagulants 2.0 - 3.0 INR High risk pts on anti-coagulants 2.5 - 3.5 INR Prevention of atrial thrombo-embolism 3.0 - 4.5 INR Performed By: #### F T3, FT4, CDP, DIME, TROPI, CP, PTT, PT, TSH #### [facility] [address] [place] [address] Prothrombin time (PT) Coag time (PPP) 10.6 s Normal 9.0-11.6 [facility] Comment on above: Performed By: #### F T3, FT4, CDP, DIME, TROPI, CP, PTT, PT, TSH #### [facility] [address] [place] [id number] T3, Freeon 12-09-2017 T3 free mass conc 3.14 pg/mL Normal 2.02-4.43 [facility] Comment on above: Performed By: #### F T3, FT4, CDP, DIME, TROPI, CP, PTT, PT, TSH #### [facility] [address] [place] [id number] ([phone]) Thyroid Stim. Horm.on 2017 Thyrotropin Qn 1.44 m[IU]/L Normal 0.30-5.00 [facility] Comment on above: Performed By: #### F T3, FT4, CDP, DIME, TROPI, CP, PTT, PT, TSH #### [facility] [address] [place] [address] ([phone]) Thyroxine, Freeon 12-09-2017 Thyroxine, Free 1.03 ng/dL Normal 0.93-1.70 [facility] Comment on above: Performed By: #### F T3, FT4, CDP, DIME, TROPI, CP, PTT, PT, TSH #### [facility] [address] [place] [address] [phone] Troponinon 12-09-2017 Troponin I.cardiac mass conc Normal [facility] Comment on above: Result Comment: Refe rence Range: <0.03 Within reference range. 0.03-0.09 Possible myocardial damage. Repeat at appropriate intervals to rule out chronic elevation. >= 0.10 Indicative of myocardial damage. Patients with high levels of Biotin oral intake (i.e >5mg/day) may have falsely decreased Troponin T levels. Samples collected within 8 hours of biotin intake may require additional information for diagnosis. Performed By: #### F T3, FT4, CDP, DIME, TROPI, CP, PTT, PT, TSH #### [facility] [address] [place] [address] ([phone]) Troponin I.cardiac mass conc ng/mL Normal <0.03 [facility] Comment on above: Result Comment: Trop onin T results cannot be compared to Troponin-I results. Performed By: #### F T3, FT4, CDP, DIME, TROPI, CP, PTT, PT, TSH #### [facility] [address] [place] [address] XR CHEST PORTABLEon 12-10-19 XR CHEST PORTABLE XR CHEST PORTABLE CLINICAL STATEMENT: Chest pain. TECHNIQUE: AP upright projection of the chest. COMPARISON: 09/25/2013 FINDINGS: The heart is thought to be satisfactory allowing for the AP projection. Trachea is midline. I do not see any mediastinal, hilar, or acute-appearing pulmonary pathology. IMPRESSION: Unremarkable AP chest. Interpreted by: Brittany Zamora DO Signed by: Brittany Zamora DO 12/09/17 Final result Normal [facility] Progress Noteon 10-12-2017 HIM IP Note OR Machine Technician Normal [facility] Progress Noteon 08-17-2017 HIM IP Note OR Machine Technician Normal [facility] Discharge Summaryon 04-20-19 Discharge Summary MR#: [id number] [facility] Admitted: 04/16/2017 Discharged: 04/18/2017 Date of : 1965 Physician: Elier Lu M.D. DISCHARGE SUMMARYDISCHARGE PHYSICIAN: Elier Lu M.D.DISCHARGE SERVICE: MICU.PRIMARY DIAGNOSES: Acute ischemic stroke status post tPA on 04/16/2017.SECONDARY DIAGNOSES:1. Parkinson disease.2. Hypertension.3. Hyperlipidemia.4. Obstructive sleep apnea.5. Posttraumatic stress disorder.CONSULT: Neurology.PROCEDURE: None.HOSPITAL COURSE: A 51-year-old male with history as noted above and withno prior history of CVA, who presented as a direct transfer from an outsidehospital after receiving tPA for suspected stroke. The patient initiallypresented to outside hospital with sudden onset of right-sided weakness andblurry vision in the right eye. An initial CT head was done withoutcontrast, which was negative for hemorrhagic stroke. The patient waswithin the window for tPA, which [facility], the patient was stable. Right-sided visionwas back to baseline per the patient and right-sided weakness showed someimprovement, but still persisted. The patient was monitored for 24 hoursin the MICU. He passed a swallow study and was started on regular diet.CTA head and neck and MRI of brain were unremarkable. The patient wasstarted on aspirin 81 mg daily and discharged from the hospital 48 hoursafter admission.DISCHARGE INSTRUCTIONS: Follow up with primary care physician orneurologist for evaluation regarding headache treatment. Continue [id number] mg daily. Follow with primary care physician or neurologist who treats Parkinson disease.DISCHARGE MEDICATIONS: Aspirin 81 mg everyday, carbidopa 25 mg, [id number] mg tablet every 4 hours. Clonazepam 0.5 mg tablets at bedtime,entacapone 200 mg tablets every 4 hours as directed, Lipitor 40 mg daily,metoprolol succinate extended release 50 mg tablet daily, paroxetine 40 mgdaily, prazosin 0.5 mg daily, Protonix 40 mg 2 times per day, Requip 5 mgat bedtime, trazodone 300 mg at bedtime, vitamin D plus omega-3.Electronically Signed by:Elier Lu M.D. 04/20/2017 02:28 P Elier Lu M.D.I personally saw this patient on the day of the encounter, performed thekey portion(s) of the service and participated in the management andconfirm the resident's documentation. Please note there may be anadditional personal documentation from me.Date Dict: 04/19/2017/06:23 P/Genaro Mancera Trans: 04/20/2017 06:59 [id number] Normal [facility] EEG Reporton 04-19-2017 [facility] [id number] Age: 51 Physician: Date: 04/18/2017 Lab#: [id number] Date of : 1965 Patient Type: I NEURODIAGNOSTIC SERVICES [id number] [place], [place] [address] Board of the [place] [employer] Accredited LaboratoryTECHNOLOGIST: Guera Levy.EEG DURATION: 28 minutes and 06 seconds.CLINICAL HISTORY: This 51-year-old male presented from [facility] with chest pain, right-sided weakness, right-sided vision loss.After a head CT, he was found to have an acute ischemic stroke. EEG torule out seizures.PAST MEDICAL HISTORY: Parkinson's, PTSD, hyperlipidemia, hypertension,BRITTANY.MEDICATI ONS: Acetaminophen, aspirin, atorvastatin, carbidopa levodopa,clonazepam, entacapone, fentanyl citrate, ondansetron HCl, pantoprazole,paroxetine HCl, promethazine, ropinirole hydrochloride, trazodone HCl.OTHER PARAMETERS: EKG.ACTIVITY: Awake 70%.1. The patient has posterior background of 10-11 hertz, 20-70 microvolts. It is seen in the posterior head region, symmetrical waxing and waning, reduced by eye opening.2. Beta waves are seen in the frontocentral region, 15-25 hertz, less than 20 microvolts.Sleep 30%.1. Slow waves 4-7 hertz, 20-70 microvolts with diffuse irregular distribution.2. Vertex waves, 1-2 hertz seen in the central head region.3. Sleep spindles 12-16 hertz seen in the frontocentral region. They are symmetrical.4. K complex 1-2 hertz generalized.Activations.1 . Hyperventilation was not performed, medically contraindicated.2. Photic stimulation was performed (1-20 hertz) with no driving.CLASSIFICATION: Normal (awake, sleep, 10-20 scalp electrodes, anteriortemporal electrodes, standard electrodes).IMPRESSION: This EEG is within normal limits. No epileptiform dischargesor EEG seizures were seen during this recording.Electronically Signed by:Sky Carrillo MD 04/24/2017 07:43 P MEGAN Byrdate Dict: 04/18/2017/07:02 P/MEGAN Byrdate Trans: 04/19/2017 03:05 P/[id number] Normal [facility] BASIC METABOLIC PANELon 02-2 Calcium 9.1 mg/dL Normal 8.6-10.3 [facility] Comment on above: Order Comment: No: D o not add to previous draw Performed By: #### 1 0070, 56478, 29153, 94125, 96783 ####[facility] [place] [address], [facility] Chloride 103 mmol/L Normal 98-107 [facility] Comment on above: Order Comment: No: D o not add to previous draw Performed By: #### 1 0070, 67167, 51423, 58417, 89827 ####[facility] [place] [address], [facility] CO2 26 mmol/L Normal 21-31 [facility] Comment on above: Order Comment: No: D o not add to previous draw Performed By: #### 1 0070, 35694, 24017, 20482, 83657 ####[facility] [place] [address], [facility] Creatinine 1.16 mg/dL Normal 0.70-1.30 [facility] Comment on above: Order Comment: No: D o not add to previous draw Performed By: #### 1 0070, 35957, 56572, 22294, 10115 ####[facility] [place] [address], [facility] eGFR (black) mL/min/{1.73_m2} Normal >60 [facility] Comment on above: Order Comment: No: D o not add to previous draw Performed By: #### 1 0070, 37096, 80080, 11341, 12535 ####[facility] [place] [address], [facility] eGFR (non-black) mL/min/{1.73_m2} Normal >60 [facility] Comment on above: Order Comment: No: D o not add to previous draw Performed By: #### 1 0070, 03702, 31517, 76286, 76045 ####[facility].[address] Glucose mass conc 111 mg/dL High 70-100 [facility] Comment on above: Order Comment: No: D o not add to previous draw Performed By: #### 1 0070, 19519, 84565, 80879, 20195 ####[facility].[address] Potassium molar conc 4.2 mmol/L Normal 3.5-5.1 [facility] Comment on above: Order Comment: No: D o not add to previous draw Performed By: #### 1 0070, 51655, 53397, 59004, 27582 ####[facility].[address] Sodium 137 mmol/L Normal 136-145 [facility] Comment on above: Order Comment: No: D o not add to previous draw Performed By: #### 1 0070, 05105, 86978, 81040, 94570 ####[facility].[address] Urea nitrogen 14 mg/dL Normal 7-25 [facility] Comment on above: Order Comment: No: D o not add to previous draw Performed By: #### 1 0070, 30370, 10194, 18215, 96455 ####[facility].[address] CBC W/DIFFon 04-18-2017 ABS BASOPHILS 0.0 10*3/uL Normal 0.0-0.2 [facility] Comment on above: Order Comment: No: D o not add to previous draw Performed By: #### 1 0070, 09616, 98353, 30741, 32713 ####[facility].[address] ABS IMM GRANS 0.0 10*3/uL Normal 0.0-0.2 [facility] Comment on above: Order Comment: No: D o not add to previous draw Performed By: #### 1 0070, 23665, 84174, 84659, 84926 ####[facility] [address] ABS NEUTROPHILS 9.2 10*3/uL High 1.6-7.6 [facility] Comment on above: Order Comment: No: D o not add to previous draw Performed By: #### 1 0070, 15220, 19871, 95630, 53167 ####[facility] [address] Basophils Auto #/vol (Bld) 0.3 % Normal 0.0-1.0 [facility] Comment on above: Order Comment: No: D o not add to previous draw Performed By: #### 1 0070, 22710, 11579, 78312, 39159 ####[facility] [address] Eosinophils 0.1 10*3/uL Normal 0.0-0.5 [facility] Comment on above: Order Comment: No: D o not add to previous draw Performed By: #### 1 0070, 88738, 21897, 97958, 35007 ####[facility].[address] Eosinophils/100 leukocytes 1.0 % Normal 0.0-6.0 [facility] Comment on above: Order Comment: No: D o not add to previous draw Performed By: #### 1 0070, 91309, 16710, 15811, 25965 ####[facility] [address] Erythrocyte distribution width Auto Ratio (RBC) 12.1 % Normal 11.5-15.0 [facility] Comment on above: Order Comment: No: D o not add to previous draw Performed By: #### 1 0070, 58958, 69571, 90007, 30567 ####[facility] [address] Erythrocytes (RBC) 5.61 10*6/uL Normal 4.20-5.70 [facility] Comment on above: Order Comment: No: D o not add to previous draw Performed By: #### 1 0070, 34278, 23520, 00512, 95825 ####[facility] [address] Hematocrit (HCT) 47.9 % Normal 39.0-50.0 [facility] Comment on above: Order Comment: No: D o not add to previous draw Performed By: #### 1 0070, 56466, 31958, 03858, 29297 ####[facility] [address] Hemoglobin mass conc (Bld) 16.6 g/dL Normal 13.0-17.0 [facility] Comment on above: Order Comment: No: D o not add to previous draw Performed By: #### 1 0070, 68294, 35240, 65630, 80813 ####[facility] [address] IMMATURE GRANS 0.3 % Normal 0.0-1.0 [facility] Comment on above: Order Comment: No: D o not add to previous draw Performed By: #### 1 0070, 45993, 49713, 53791, 54199 ####[facility] [address] Lymphocytes 1.2 10*3/uL Normal 1.2-4.0 [facility] Comment on above: Order Comment: No: D o not add to previous draw Performed By: #### 1 0070, 72535, 54419, 71658, 49699 ####[facility] Lymphocytes/100 leukocytes 10.4 % Low 20.0-45.0 [facility] Comment on above: Order Comment: No: D o not add to previous draw Performed By: #### 1 0070, 95486, 53942, 41615, 75628 ####[facility].[address] MCH 29.6 pg Normal 27.0-33.0 [facility] Comment on above: Order Comment: No: D o not add to previous draw Performed By: #### 1 0070, 78500, 53150, 73173, 10036 ####[facility].[address] MCHC mass conc (RBC) 34.7 g/dL Normal 32.0-35.0 [facility] Comment on above: Order Comment: No: D o not add to previous draw Performed By: #### 1 0070, 97894, 06758, 36778, 98542 ####[facility].[address] MCV 85.4 fL Normal 82.0-98.0 [facility] Comment on above: Order Comment: No: D o not add to previous draw Performed By: #### 1 0070, 48666, 60583, 08453, 09236 ####[facility].[address] Monocytes 0.9 10*3/uL Normal 0.1-1.0 [facility] Comment on above: Order Comment: No: D o not add to previous draw Performed By: #### 1 0070, 34615, 07755, 13424, 31628 ####[facility].[address] MONOS 7.6 % Normal 5.0-12.0 [facility] Comment on above: Order Comment: No: D o not add to previous draw Performed By: #### 1 0070, 31358, 02937, 55380, 59639 ####[facility].[address] Neutrophils/100 leukocytes 80.4 % High 40.0-72.0 [facility] Comment on above: Order Comment: No: D o not add to previous draw Performed By: #### 1 0070, 12738, 39361, 21063, 84506 ####[facility].[address] NRBC 0 % Normal 0-0 [facility] Comment on above: Order Comment: No: D o not add to previous draw Performed By: #### 1 0070, 79812, 15182, 37085, 17755 ####[facility].[address] PLAT CNT 152 10*3/uL Normal 150-400 [facility] Comment on above: Order Comment: No: D o not add to previous draw Performed By: #### 1 0070, 66467, 93475, 42020, 82014 ####[facility].[address] WBC (Leukocytes) 11.5 10*3/uL High 4.0-10.6 [facility] Comment on above: Order Comment: No: D o not add to previous draw Performed By: #### 1 0070, 32621, 07375, 69076, 65330 ####[facility] [place] [address] BRAIN WO CONTRASTon 04-18 CT BRAIN WO CONTRAST [facility] [address] [place] [address] [phone] P atient Name: KRISHAN BURNHAM : 1965Sex: MAge: Race: WhiteMRN: [id number]. Location: [address] Status: IVisit #: [id number] Date: 04/17/2017 6:15:00 PMCompleted Date: 04/18/2017 12:41 AMRequesting Provider: ANA ZEPEDA Attending Provider: ELIER LU Report Copy To: Signs & Symptoms: Stroke(CVA)History: Patient history not availableComments: R/O CVAExam: CT BRAIN WO CONTRASTAccession #: [id number] ======CT BRAIN WO CONTRAST 04/18/2017 12:41 AM EST SIGNS AND SYMPTOMS: Stroke(CVA) TECHNOLOGIST COMMENTS: Pt is 24 hour s/p TPA. Pt still c/o diffuse headache. QUESTION FOR THE RADIOLOGIST: R/O CVA PROTOCOL: Axial CT images of the head were obtained without IV contrast. TECHNIQUE:Multi-detector CT axial slices of the brain were obtained without IV contrast. Helical,sagittal, coronal, and 3-D reconstructions were performed and viewed on a separate workstation. Appropriate CT dose lowering techniques were utilized. COMPARISON: CT of the head April 16, 2017. MRI of the brain without contrast April 17, 2017. FINDINGS: There is no shift of the midline structures, acute intracranial bleeding, mass effects, or evidence of acute ischemia. The ventricular system is normal in size. The brainstem and the cerebellum are unremarkable. The visualized intraorbital contents, and the infratemporal soft tissues show no acute abnormality. The osseous structures in the skull base and the calvarium show no abnormality. Redemonstration of chronic maxillary sinus disease and status post maxillary antrectomy. IMPRESSION: No significant interval change.Chronic maxillary sinus disease and status post maxillary antrectomy. Approved by:Mariam June on 04/18/2017 8:02 AM EST. I, Kev Guallpa, have reviewed the images and report and concur with these findings. Electronically signed by:Kev Guallpa. Transcribed by: [id number], User Resident: MARIAM JUNEElectronically Signed by: KEV GUALLPA @ 04/18/2017 09:52 AMI personally read this/these film(s) with this resident Normal [facility] Comment on above: Order Comment: No: D o not add to previous draw MAGNESIUM BLOODon 04-18-2017 Magnesium 2.1 mg/dL Normal 1.9-2.7 [facility] Comment on above: Order Comment: No: D o not add to previous draw Performed By: #### 1 0070, 79347, 50438, 43826, 37962 ####[address] PORTABLE CHEST 1 VIEWon 03-31 PORTABLE CHEST 1 VIEW [facility] Pmjpsitts[address] [place] [phone] P atient Name: KRISHAN BURNHAM : 1965Sex: MAge: Race: WhiteMRN: [id number]. Location: [id number] Status: IVisit #: [id number] Date: 04/18/2017 11:00:00 AMCompleted Date: 04/18/2017 11:39 AMRequesting Provider: APRYL MARQUEZ Attending Provider: ELIER LU Report Copy To: Signs & Symptoms: OtherHistory: Patient history not availableComments: R/O Aspiration, H/O CVAExam: PORTABLE CHEST 1 VIEWAccession #: [id number] ======PORTABLE CHEST 1 VIEW 04/18/2017 11:39 AM EST SIGNS AND SYMPTOMS: Other TECHNOLOGIST COMMENTS: shortness of breath QUESTION FOR THE RADIOLOGIST: R/O Aspiration, H/O CVA PROTOCOL: AP(PA) view was obtained. COMPARISON: None FINDINGS: The heart mediastinum are unremarkable for portable AP technique with poor inspiration. The lungs are free of infiltrates or effusions. IMPRESSION: No acute cardiac or pulmonary pathology is noted. Poor respiratory effort. Electronically signed by:Manjinder Hernandes. Transcribed by: [id number], User Resident: Electronically Signed by: MANJINDER HERNANDES @ 04/18/2017 12:20 PM Normal [facility] Comment on above: Order Comment: No: D o not add to previous draw BASIC METABOLIC PANELon - Calcium 8.9 mg/dL Normal 8.6-10.3 [facility] Comment on above: Order Comment: No: D o not add to previous draw Performed By: #### 1 0070, 24047, 54470, 20283, 37407 ####[facility] [place] [address], [facility] Chloride 106 mmol/L Normal 98-107 [facility] Comment on above: Order Comment: No: D o not add to previous draw Performed By: #### 1 0070, 82352, 95342, 76010, 55607 ####[facility] [place] [address], [facility] CO2 24 mmol/L Normal 21-31 [facility] Comment on above: Order Comment: No: D o not add to previous draw Performed By: #### 1 0070, 11437, 37321, 37867, 21099 ####[facility] [place] [address], [place] Creatinine 1.17 mg/dL Normal 0.70-1.30 [facility] Comment on above: Order Comment: No: D o not add to previous draw Performed By: #### 1 0070, 39040, 55946, 31524, 62737 ####[facility] eGFR (black) mL/min/{1.73_m2} Normal >60 [facility] Comment on above: Order Comment: No: D o not add to previous draw Performed By: #### 1 0070, 71484, 54516, 86708, 29599 ####[facility] eGFR (non-black) mL/min/{1.73_m2} Normal >60 Th e [facility] Comment on above: Order Comment: No: D o not add to previous draw Performed By: #### 1 0070, 76607, 77107, 09968, 89297 ####[facility] [place] [address], [facility] Glucose mass conc 94 mg/dL Normal 70-100 [facility] Comment on above: Order Comment: No: D o not add to previous draw Performed By: #### 1 0070, 92946, 83245, 93770, 26515 ####[facility] [place] [address], [facility] Potassium molar conc 4.3 mmol/L Normal 3.5-5.1 [facility] Comment on above: Order Comment: No: D o not add to previous draw Performed By: #### 1 0070, 51283, 57951, 00607, 56054 ####[facility] [place] [address], [facility] Sodium 138 mmol/L Normal 136-145 [facility] Comment on above: Order Comment: No: D o not add to previous draw Performed By: #### 1 0070, 22330, 56026, 99049, 26008 ####[facility] Urea nitrogen 13 mg/dL Normal 7-25 [facility] Comment on above: Order Comment: No: D o not add to previous draw Performed By: #### 1 0070, 27635, 70287, 41520, 81360 ####[facility] CBC COMPLETE BLOOD COUNTon 0 - Erythrocyte distribution width Auto Ratio (RBC) 12.0 % Normal 11.5-15.0 [facility] Comment on above: Order Comment: No: D o not add to previous draw Performed By: #### 5 0608 ####[facility] Erythrocytes (RBC) 5.49 10*6/uL Normal 4.20-5.70 [facility] Comment on above: Order Comment: No: D o not add to previous draw Performed By: #### 5 0608 ####[facility].[address] Hematocrit (HCT) 46.9 % Normal 39.0-50.0 [facility] Comment on above: Order Comment: No: D o not add to previous draw Performed By: #### 5 0608 ####[facility] Hemoglobin mass conc (Bld) 16.2 g/dL Normal 13.0-17.0 [facility] Comment on above: Order Comment: No: D o not add to previous draw Performed By: #### 5 0608 ####[facility].[address] MCH 29.5 pg Normal 27.0-33.0 [facility] Comment on above: Order Comment: No: D o not add to previous draw Performed By: #### 5 0608 ####[place] [address] [address] MCHC mass conc (RBC) 34.5 g/dL Normal 32.0-35.0 [facility] Comment on above: Order Comment: No: D o not add to previous draw Performed By: #### 5 0608 ####[address] MCV 85.4 fL Normal 82.0-98.0 [facility] Comment on above: Order Comment: No: D o not add to previous draw Performed By: #### 5 0608 ####[address] NRBC 0 % Normal 0-0 [facility] Comment on above: Order Comment: No: D o not add to previous draw Performed By: #### 5 0608 ####[address] PLAT CNT 145 10*3/uL Low 150-400 [facility] Comment on above: Order Comment: No: D o not add to previous draw Performed By: #### 5 0608 ####[address] WBC (Leukocytes) 9.8 10*3/uL Normal 4.0-10.6 [facility] Comment on above: Order Comment: No: D o not add to previous draw Performed By: #### 5 0608 ####[address] CTA HEADon 04-17-2017 CTA HEAD [facility] [address]egjl[address] [place] [phone] P atient Name: KRISHAN BURNHAM : 1965Sex: MAge: Race: NAMRN: [id number]. Location: OUTPPatient Status: IVisit #: [id number] Date: 04/16/2017 10:10:00 PMCompleted Date: 04/16/2017 11:58 PMRequesting Provider: CHEO CRAMER Attending Provider: VINI KEY FA Report Copy To: Signs & Symptoms: Level 2 Stroke Alert R side weaknessHistory: Level 2 Stroke Alert R side weaknessComments: Level 2 Stroke Alert R side weaknessExam: CTA HEADAccession #: [id number] ======CTA HEAD, CTA NECK 04/16/2017 11:58 PM EST SIGNS AND SYMPTOMS: Level 2 Stroke Alert R side weakness TECHNOLOGIST COMMENTS: Level 2 Stroke Alert R side weakness, TPA given. QUESTION FOR THE RADIOLOGIST: Level 2 Stroke Alert R side weakness PROTOCOL: Axial CT angiography images were obtained with IV contrast. CONTRAST: Contrast: OMNIPAQUE 350 (LOCM), 100 milliliter, Intravenous TECHNIQUE: Multi-detector CT angiography axial slices of the head and neck were obtained before and during intravenous administration of IV contrast material. Sagittal, coronal, and 3-D reconstructions were performed and viewed on a separate workstation. Appropriate CT dose lowering techniques were utilized. COMPARISON: None FINDINGS: Noncontrast head CT: There is no shift of the midline structures, acute intracranial bleeding, mass effects, or evidence of acute ischemia. The ventricular system is normal in size. The brainstem and the cerebellum are unremarkable. The visualized intraorbital contents, and the visualized soft tissue in the infratemporal spaces show no abnormality. The osseous structures in the skull base and the calvarium show no acute abnormality. Chronic mucosal periosteal thickening in both maxillary sinuses with evidence of prior maxillary antrectomy. CTA Head: There are normal anterior and middle cerebral arteries. The anterior communicating artery is patent. The posterior communicating arteries are present. The superior cerebellar arteries, posterior inferior cerebellar arteries, and the basilar artery are within normal limits. The posterior cerebral arteries are unremarkable. The deep venous system and dural venous systems appear to be patent. CTA Neck: There is a normal 3-vessel arch. The subclavian arteries are normal in course and caliber. The vertebral arteries are normal in course and caliber arising from the subclavian arteries. The common and internal carotid arteries are normal in course and caliber. No bony abnormalities are appreciated. The lung apices are within normal limits. IMPRESSION: No acute intracranial pathology.No evidence of focal stenosis, aneurysmal dilatation, dissection or occlusion.Evidence of prior maxillary antrectomy and chronic maxillary sinus disease Electronically signed by:Idania Geiger. Transcribed by: [id number], User Resident: Electronically Signed by: IDANIA GEIGER @ 04/17/2017 08:51 AM Normal [facility] Comment on above: Order Comment: Level 2 Stroke Alert R side weakness CTA NECKon 04-17-2017 CTA NECK [facility] [address] [place] [address] P atient Name: KRISHAN BURNHAM : 1965Sex: MAge: Race: NAMRN: [id number]. Location: OUTPPatient Status: IVisit #: [id number] Date: 04/16/2017 10:15:00 PMCompleted Date: 04/16/2017 11:58 PMRequesting Provider: CHEO CRAMER Attending Provider: VINI KEY FA Report Copy To: Signs & Symptoms: Level 2 Stroke Alert R side weaknessHistory: Level 2 Stroke Alert R side weaknessComments: Level 2 Stroke Alert R side weaknessExam: CTA NECKAccession #: [id number] ======CTA HEAD, CTA NECK 04/16/2017 11:58 PM EST SIGNS AND SYMPTOMS: Level 2 Stroke Alert R side weakness TECHNOLOGIST COMMENTS: Level 2 Stroke Alert R side weakness, TPA given. QUESTION FOR THE RADIOLOGIST: Level 2 Stroke Alert R side weakness PROTOCOL: Axial CT angiography images were obtained with IV contrast. CONTRAST: Contrast: OMNIPAQUE 350 (LOCM), 100 milliliter, Intravenous TECHNIQUE: Multi-detector CT angiography axial slices of the head and neck were obtained before and during intravenous administration of IV contrast material. Sagittal, coronal, and 3-D reconstructions were performed and viewed on a separate workstation. Appropriate CT dose lowering techniques were utilized. COMPARISON: None FINDINGS: Noncontrast head CT: There is no shift of the midline structures, acute intracranial bleeding, mass effects, or evidence of acute ischemia. The ventricular system is normal in size. The brainstem and the cerebellum are unremarkable. The visualized intraorbital contents, and the visualized soft tissue in the infratemporal spaces show no abnormality. The osseous structures in the skull base and the calvarium show no acute abnormality. Chronic mucosal periosteal thickening in both maxillary sinuses with evidence of prior maxillary antrectomy. CTA Head: There are normal anterior and middle cerebral arteries. The anterior communicating artery is patent. The posterior communicating arteries are present. The superior cerebellar arteries, posterior inferior cerebellar arteries, and the basilar artery are within normal limits. The posterior cerebral arteries are unremarkable. The deep venous system and dural venous systems appear to be patent. CTA Neck: There is a normal 3-vessel arch. The subclavian arteries are normal in course and caliber. The vertebral arteries are normal in course and caliber arising from the subclavian arteries. The common and internal carotid arteries are normal in course and caliber. No bony abnormalities are appreciated. The lung apices are within normal limits. IMPRESSION: No acute intracranial pathology.No evidence of focal stenosis, aneurysmal dilatation, dissection or occlusion.Evidence of prior maxillary antrectomy and chronic maxillary sinus disease Electronically signed by:Idania Geiger. Transcribed by: [email or web address], User Resident: Electronically Signed by: IDANIA GEIGER @ 04/17/2017 08:51 AM Normal [facility] Comment on above: Order Comment: Level 2 Stroke Alert R side weakness HEMOGLOBIN A1Con 04-17-2017 Glucose mass conc 105 mg/dL Normal 70-126 [facility] Comment on above: Order Comment: No: D o not add to previous draw Performed By: #### 1 0070, 64326, 93906, 30050, 98510 ####[facility] Hemoglobin A1c/Hemoglobin.total mass fraction (Bld) 5.3 % Normal 4.0-6.0 [facility] Comment on above: Order Comment: No: D o not add to previous draw Performed By: #### 1 0070, 76069, 69777, 97091, 20574 ####[facility] LIPID PROFILEon 04-17-2017 Cholesterol 120 mg/dL Normal 120-200 [facility] Comment on above: Result Comment: CHOL ESTEROL REFERENCE RANGE:20 YEARS AND OLDER CARDIOVASCULAR RISKLess than 200 mg/dl Low Vprs246 to 239 mg/dl Borderline Dmka759 mg/dl and greater High Risk Performed By: #### 1 0070, 82708, 73645, 24678, 88796 ####[facility] [place] [address], [facility] Cholesterol to HDL Ratio 4.8 {ratio} High .0-4.5 [facility] Comment on above: Performed By: #### 1 0070, 69035, 33466, 63183, 90489 ####[facility] [place] [address], [facility] HDL Cholesterol 25 mg/dL Normal 23-92 [facility] Comment on above: Result Comment: Slig ht variation in normal range could be due to gender and/or age.HDL CHOLESTEROL REFERENCE RANGE:20 years and older Cardiovascular Risk> or =60 mg/dL Pagvtytsn22 TO 59 mg/dL Low Risk<40 mg/dL High Risk Performed By: #### 1 0070, 32605, 94738, 66882, 98559 ####[facility] LDL Cholesterol 65 mg/dL Normal 0-130 [facility] Comment on above: Result Comment: LDL IS A CALCULATIONLDL IS ONLY VALID IF THE TRIG IS LESS THAN 400. Performed By: #### 1 0070, 48797, 78432, 98748, 13829 ####[facility] NON-HDL CHOLESTEROL 95 mg/dL Normal [facility] Comment on above: Performed By: #### 1 0070, 92526, 11551, 04976, 50238 ####[facility] Triglyceride 152 mg/dL High 40-149 [facility] Comment on above: Result Comment: TRIG LYCERIDE REFERENCE RANGE:20 YEARS AND OLDER CARDIOVASCULAR RISKLESS THAN 150 mg/dl LOW OCIA998 TO 199 mg/dl BORDERLINE LYPQ133 mg/dl AND GREATER HIGH RISK Performed By: #### 1 0070, 23246, 70216, 13675, 04561 ####[facility] VLDL CHOL 30 mg/dL Normal 0-40 [facility] Comment on above: Performed By: #### 1 0070, 93891, 88887, 81558, 11077 ####[facility] MAGNESIUM BLOODon 04-17-2017 Magnesium 1.9 mg/dL Normal 1.9-2.7 [facility] Comment on above: Order Comment: No: D o not add to previous draw Performed By: #### 1 0070, 19036, 47178, 07744, 97658 ####[facility] MRI BRAIN WO CONTRASTon 03-30 [facility] [place] [address] P atient Name: KRISHAN BURNHAM : 1965Sex: MAge: Race: WhiteMRN: [id number]. Location: [id number] Status: IVisit #: [id number] Date: 04/17/2017 8:50:00 AMCompleted Date: 04/17/2017 01:57 PMRequesting Provider: ANA ZEPEDA Attending Provider: ELIER LU Report Copy To: Signs & Symptoms: OtherHistory: Patient history not availableComments: R/O CVAExam: MRI BRAIN WO CONTRASTAccession #: [id number] ======MRI BRAIN WO CONTRAST 04/17/2017 1:58 PM EST SIGN AND SYMPTOMS: Other TECHNOLOGIST COMMENTS: Positive stroke status post TPA. QUESTION FOR RADIOLOGIST: R/O CVA PROTOCOL: The following pulse sequences were utilized when imaging the brain: sagittal T1, diffusion weighted imaging, axial T2 FLAIR, axial T2 fat-sat, axial T1, axial GRE. COMPARISON: None. FINDINGS: Extra axial spaces: Age appropriate.Hemorrhage: None.Ventricular system: Within normal limits.Basal cisterns: Within normal limits and not effaced.Cerebral parenchyma: Normal in signal.Midline shift: None..Cerebellum: Within normal limits.Brainstem: Within normal limits. OTHER: Calvarium: Normal marrow signal.Vascular system: Satisfactory flow voids within the anterior and posterior circulation.Visualized Paranasal sinuses: There is partial opacification bilateral maxillary sinuses.Visualized Orbits: Within normal limits.Visualized upper cervical spine: Within normal limits.Sella and skull base: Within normal limits. IMPRESSION: No acute intracranial pathology. No evidence of diffusion restriction to suggest the presence of acute or subacute ischemia. No evidence of hemorrhage. There is partial opacification of the bilateral maxillary sinuses. Electronically signed by:Kev Guallpa. Transcribed by: [email or web address], User Resident: Electronically Signed by: KEV GUALLPA @ 04/17/2017 02:10 PM Normal [facility] Comment on above: Order Comment: R/O C VA PHOSPHORUS BLOODon 8 Phosphate 4.4 mg/dL Normal 2.5-5.0 [facility] Comment on above: Order Comment: No: D o not add to previous draw Performed By: #### 1 0070, 46839, 85622, 16827, 32703 ####[facility] PROTHROMBIN TIMEon 8 INR Coag RelTime (PPP) 1.11 {INR} Normal 0.91-1.16 [facility] Comment on above: Order Comment: No: D o not add to previous draw Result Comment: ACCC P RECOMMENDED INR FOR WARFARIN THERAPY CONDITION INRPROPHYLAXIS OF VENOUS THROMBOSIS 2-3(HIGH-RISK SURGERY)TREATMENT OF VENOUS THROMBOSIS 2-3TREATMENT OF PULMONARY EMBOLISM 2-3PREVENTION OF SYSTEMIC EMBOLISM: 2-3 ACUTE MYOCARDIAL INFARCTION TISSUE HEART VALVES VALVULAR HEART DISEASE ATRIAL FIBRILLATION RECURRENT SYSTEMIC EMBOLISMMECHANICAL HEART VALVE 2.5-3.5 FROM: ORAL ANTICOAGULANTS. MECHANISM OF ACTION, CLINICALEFFECTIVENESS, AND OPTIMAL THERAPEUTIC RANGE. [id number];108:231S-246S. Performed By: #### 5 6101 ####[facility].[address] Prothrombin time (PT) Coag time (PPP) 14.4 s Normal 12.3-14.8 [facility] Comment on above: Order Comment: No: D o not add to previous draw Result Comment: ALL RESULTS MUST BE INTERPRETED WITH RESPECT TO BLOOD DRAWING ARTIFACTOR DILUTION ERROR OF ANTICOAGULANT AT THE TIME OF SAMPLING. Performed By: #### 5 6101 ####[facility].[address] TROPONIN-Ion 04-17-2017 Troponin I.cardiac mass conc 0.03 ng/mL Normal 0.00-0.04 [facility] Comment on above: Order Comment: No: D o not add to previous draw Result Comment: REFE RENCE RANGES: 0.00 - 0.04 ng/ml NORMAL 0.05 - 0.50 ng/ml INDETERMINATE > 0.50 ng/ml CONSISTENT WITH AN M.I. Performed By: #### 1 0070, 93003, 99080, 80480, 09929 ####[facility].[address] Testost Totalon 03-18-2017 Testoster Tot 412 ng/dL Normal [facility] Comment on above: Result Comment: MALE ELVIN STAGE FEMALE ELVIN STAGE 1 <3 1 <3 - 6 2 <3 - 432 2 <3 - 10 3 65 - 778 3 <3 - 24 4 180 - 763 4 <3 - 27 5 188 - 882 5 5 - 38 MALE ADULT 264 - 916 FEMALE ADULT 20-49 years 8 - 48 >49 years 3 - 41 Adult male reference interval is based on a population of healthy nonobese males (BMI <30) between 19 and 39 years old. ortiz Mares.al. JCEM 2017,102;2725-3870. PMID: [id number].Performed At: [facility] [id number] Vincent PhD Ph:[phone] Performed By: #### 2 [id number] ####[id number] [place] [address] Culture, urine Bacteria identified Cx Nom (U) Culture exhibits no growth. [facility] Work Phone: EP Panel Gastrointestinal pathogens panel GITA+probe (Stl) [facility] Work Phone: Vital Signs Date Time Vital Sign Value Performing Clinician Facility 11-25-2024 08:39-0400 Body height 180.34 cm [facility] 11-25-2024 08:39-0400 Body mass index (BMI) [Ratio] 33.3 kg/m2 [facility] 11-25-2024 08:39-0400 Body weight 108.4 kg [facility] 11-25-2024 08:39-0400 Diastolic blood pressure 77 mm[Hg] [facility] 11-25-2024 08:39-0400 Heart rate 66 /min [facility] 11-25-2024 08:39-0400 Respiratory rate 17 /min [facility] 11-25-2024 08:39-0400 SaO2% (BldA) [Mass fraction] 97 % [facility] 11-25-2024 08:39-0400 Systolic blood pressure 120 mm[Hg] [facility] 10-27-2024 17:20-0400 Body temperature 98.7 [degF] [facility] 10-27-2024 17:20-0400 Diastolic blood pressure 73 mm[Hg] [facility] 10-27-2024 17:20-0400 Heart rate 59 /min [facility] 10-27-2024 17:20-0400 Respiratory rate 16 /min [facility] 10-27-2024 17:20-0400 SaO2% (BldA) [Mass fraction] 100 % [facility] 10-27-2024 17:20-0400 Systolic blood pressure 100 mm[Hg] [facility] 10-27-2024 14:51-0400 Body height 180.34 cm [facility] 10-27-2024 14:51-0400 Body mass index (BMI) [Ratio] 33.3 kg/m2 [facility] 10-27-2024 14:51-0400 Body weight 108.5 kg [facility] 09-17-2024 14:56-0400 Body temperature 98.3 [degF] [facility] 09-17-2024 14:56-0400 Diastolic blood pressure 80 mm[Hg] [facility] 09-17-2024 14:56-0400 Heart rate 58 /min [facility] 09-17-2024 14:56-0400 Respiratory rate 14 /min [facility] 09-17-2024 14:56-0400 SaO2% (BldA) [Mass fraction] 94 % [facility] 09-17-2024 14:56-0400 Systolic blood pressure 136 mm[Hg] [facility] 09-17-2024 11:04-0400 Body height 180.34 cm [facility] 09-17-2024 11:04-0400 Body mass index (BMI) [Ratio] 33.9 kg/m2 [facility] 09-17-2024 11:04-0400 Body weight 110.3 kg [facility] 06-29-2024 22:45-0400 Diastolic Blood Pressure Non-Invasive 67 mm[Hg] CARMELA CORRALES DO [facility] 06-29-2024 22:45-0400 Heart rate 60 /min CARMELA CORRALES DO [facility] 06-29-2024 22:45-0400 Reason For Taking VItal Signs CARMELA CORRALES DO [facility] 06-29-2024 22:45-0400 Respiratory rate 18 /min CARMELA CORRALES DO [facility] 06-29-2024 22:45-0400 Systolic Blood Pressure Non-Invasive 127 mm[Hg] CARMELA CORRALES DO [facility] 06-29-2024 21:36-0400 Body temperature 97.88 [degF] CARMELA CORRALES DO [facility] 06-29-2024 21:36-0400 Body weight 108.6 kg CARMELA CORRALES DO [facility] 06-29-2024 21:36-0400 Diastolic Blood Pressure Non-Invasive 80 mm[Hg] CARMELA CORRALES DO [facility] 06-29-2024 21:36-0400 Heart rate 60 /min CARMELA CORRALES DO [facility] 06-29-2024 21:36-0400 Respiratory rate 16 /min CARMELA CORARLES DO [facility] 06-29-2024 21:36-0400 Systolic Blood Pressure Non-Invasive 144 mm[Hg] CARMELA CORRALES DO [facility] 06-01-2024 10:05-0400 Body temperature 97 [degF] Tila Reyes APRN.SNIPPER Work Phone: [facility] 06-01-2024 10:05-0400 Body weight 106 kg Tila Reyes APRN.SNIPPER Work Phone: [facility] 06-01-2024 10:05-0400 Diastolic blood pressure 77 mm[Hg] Tila Reyes APRN.SNIPPER Work Phone: [facility] 06-01-2024 10:05-0400 Heart rate 64 /min Tila Reyes APRN.SNIPPER Work Phone: [facility] 06-01-2024 10:05-0400 Respiratory rate 18 /min Tila Reyes APRN.SNIPPER Work Phone: [facility] 06-01-2024 10:05-0400 SaO2% (BldA) [Mass fraction] 99 % Tila Enrike OSBORNE.SNIPPER Work Phone: [facility] 06-01-2024 10:05-0400 Systolic blood pressure 143 mm[Hg] Tila Enrike OSBORNE.SNIPPER Work Phone: [facility] 04-26-2023 11:36-0500 Body height 180.34 cm [facility] 04-26-2023 11:36-0500 Body mass index (BMI) [Ratio] 32.6 kg/m2 [facility] 04-26-2023 11:36-0500 Body temperature 98.2 [degF] [facility] 04-26-2023 11:36-0500 Body weight 106.14 kg [facility] 04-26-2023 11:36-0500 Diastolic blood pressure 82 mm[Hg] [facility] 04-26-2023 11:36-0500 Heart rate 66 /min [facility] 04-26-2023 11:36-0500 Respiratory rate 16 /min [facility] 04-26-2023 11:36-0500 SaO2% (BldA) [Mass fraction] 96 % [facility] 04-26-2023 11:36-0500 Systolic blood pressure 148 mm[Hg] [facility] 03-20-2023 15:00-0500 Body temperature 97.7 [degF] [facility] 03-20-2023 15:00-0500 Diastolic blood pressure 71 mm[Hg] [facility] 03-20-2023 15:00-0500 Heart rate 54 /min [facility] 03-20-2023 15:00-0500 Respiratory rate 13 /min [facility] 03-20-2023 15:00-0500 SaO2% (BldA) [Mass fraction] 95 % [facility] 03-20-2023 15:00-0500 Systolic blood pressure 126 mm[Hg] [facility] 03-16-2023 21:54-0500 Body mass index (BMI) [Ratio] 32.8 kg/m2 [facility] 03-16-2023 21:54-0500 Body weight 107 kg [facility] 03-16-2023 21:00-0500 Diastolic blood pressure 80 mm[Hg] [facility] 03-16-2023 21:00-0500 Heart rate 74 /min [facility] 03-16-2023 21:00-0500 Respiratory rate 16 /min [facility] 03-16-2023 21:00-0500 SaO2% (BldA) [Mass fraction] 97 % [facility] 03-16-2023 21:00-0500 Systolic blood pressure 129 mm[Hg] [facility] 03-16-2023 16:42-0500 Body height 180.34 cm [facility] 03-16-2023 16:42-0500 Body mass index (BMI) [Ratio] 33.2 kg/m2 [facility] 03-16-2023 16:42-0500 Body temperature 96.4 [degF] [facility] 03-16-2023 16:42-0500 Body weight 107.95 kg [facility] 01-12-2023 14:32-0500 Body mass index (BMI) [Ratio] 33 kg/m2 [facility] 01-12-2023 14:32-0500 Body temperature 98.6 [degF] [facility] 01-12-2023 14:32-0500 Body weight 107.5 kg [facility] 01-12-2023 14:32-0500 Diastolic blood pressure 88 mm[Hg] [facility] 01-12-2023 14:32-0500 Heart rate 72 /min [facility] 01-12-2023 14:32-0500 Respiratory rate 16 /min [facility] 01-12-2023 14:32-0500 SaO2% (BldA) [Mass fraction] 97 % [facility] 01-12-2023 14:32-0500 Systolic blood pressure 138 mm[Hg] [facility] 01-12-2023 11:45-0500 Body mass index (BMI) [Ratio] 32.5 kg/m2 [facility] 01-12-2023 10:00-0500 Body temperature 98.2 [degF] [facility] 01-12-2023 10:00-0500 Diastolic blood pressure 74 mm[Hg] [facility] 01-12-2023 10:00-0500 Heart rate 71 /min [facility] 01-12-2023 10:00-0500 SaO2% (BldA) [Mass fraction] 96 % [facility] 01-12-2023 10:00-0500 Systolic blood pressure 146 mm[Hg] [facility] 01-12-2023 03:18-0500 Body weight 106 kg [facility] 01-10-2023 20:06-0500 Body temperature 98.6 [degF] [employer] Kev Lugo [employer] Work Phone: [facility] 01-10-2023 20:06-0500 Diastolic blood pressure 79 mm[Hg] [employer] Kev Lugo [employer] Work Phone: [facility] 01-10-2023 20:06-0500 Heart rate 63 /min [employer] Kev Lugo [employer] Work Phone: [facility] 01-10-2023 20:06-0500 Respiratory rate 12 /min [employer] Kev Lugo [employer] Work Phone: [facility] 01-10-2023 20:06-0500 SaO2% (BldA) [Mass fraction] 98 % [employer] Kev Lugo [employer] Work Phone: [facility] 01-10-2023 20:06-0500 Systolic blood pressure 139 mm[Hg] [employer] Kev Lugo [employer] Work Phone: [facility] 01-10-2023 17:58-0500 Body height 180.34 cm [employer] Kev Lugo [employer] Work Phone: [facility] 01-10-2023 17:58-0500 Body mass index (BMI) [Ratio] 32.8 kg/m2 [employer] Kev Lugo [employer] Work Phone: [facility] 01-10-2023 17:58-0500 Body weight 106.6 kg [employer] Kev Lugo [employer] Work Phone: [facility] 07-04-2022 10:23-0400 Body temperature 98 [degF] [employer] Kev Luog [employer] Work Phone: [facility] 07-04-2022 10:23-0400 Diastolic blood pressure 55 mm[Hg] [employer] Kev Lugo [employer] Work Phone: [facility] 07-04-2022 10:23-0400 Heart rate 64 /min [employer] Kev Lugo [employer] Work Phone: [facility] 07-04-2022 10:23-0400 Respiratory rate 16 /min [employer] Kev Lugo [employer] Work Phone: [facility] 07-04-2022 10:23-0400 SaO2% (BldA) [Mass fraction] 96 % [employer] Kev Lugo [employer] Work Phone: [facility] 07-04-2022 10:23-0400 Systolic blood pressure 98 mm[Hg] [employer] Kev Lugo [employer] Work Phone: [facility] 07-04-2022 08:48-0400 Body height 180.34 cm [employer] Kev Lugo [employer] Work Phone: [facility] 07-04-2022 08:48-0400 Body mass index (BMI) [Ratio] 31.9 kg/m2 [employer] Kev Lugo [employer] Work Phone: [facility] 07-04-2022 08:48-0400 Body weight 103.87 kg [employer] Kev Lugo [employer] Work Phone: [facility] 06-17-2022 09:21-0400 Body height 180.34 cm [employer] Kev Lugo [employer] Work Phone: [facility] 06-17-2022 09:21-0400 Body mass index (BMI) [Ratio] 32.3 kg/m2 [employer] Kev Linaresder [employer] Work Phone: [facility] 06-17-2022 09:21-0400 Body weight 105.23 kg [employer] Kev Linaresder [employer] Work Phone: [facility] 06-17-2022 09:21-0400 Diastolic blood pressure 82 mm[Hg] [employer] Kev Lugo [employer] Work Phone: [facility] 06-17-2022 09:21-0400 Heart rate 63 /min [employer] Kev Linaresder [employer] Work Phone: [facility] 06-17-2022 09:21-0400 SaO2% (BldA) [Mass fraction] 96 % [employer] Kev Linaresder [employer] Work Phone: [facility] 06-17-2022 09:21-0400 Systolic blood pressure 128 mm[Hg] [employer] Kev Linaresder [employer] Work Phone: [facility] 05-26-2022 11:36-0400 Body height 180.34 cm [facility] 05-26-2022 11:36-0400 Body mass index (BMI) [Ratio] 32.4 kg/m2 [facility] 05-26-2022 11:36-0400 Body temperature 97.9 [degF] [facility] 05-26-2022 11:36-0400 Body weight 105.59 kg [facility] 05-26-2022 11:36-0400 Diastolic blood pressure 80 mm[Hg] [facility] 05-26-2022 11:36-0400 Heart rate 72 /min [facility] 05-26-2022 11:36-0400 Respiratory rate 20 /min [facility] 05-26-2022 11:36-0400 SaO2% (BldA) [Mass fraction] 96 % [facility] 05-26-2022 11:36-0400 Systolic blood pressure 122 mm[Hg] [facility] 03-24-2022 14:14-0500 Body temperature 98.2 [degF] [employer] Kev Lugo [employer] Work Phone: [facility] 03-24-2022 14:14-0500 Diastolic blood pressure 75 mm[Hg] [employer] Kev Lugo [employer] Work Phone: [facility] 03-24-2022 14:14-0500 Heart rate 74 /min [employer] Kev Lugo [employer] Work Phone: [facility] 03-24-2022 14:14-0500 Respiratory rate 16 /min [employer] Kev Lugo [employer] Work Phone: [facility] 03-24-2022 14:14-0500 SaO2% (BldA) [Mass fraction] 99 % [employer] Kev Lugo [employer] Work Phone: [facility] 03-24-2022 14:14-0500 Systolic blood pressure 119 mm[Hg] [employer] Kev Lugo [employer] Work Phone: [facility] 03-24-2022 09:18-0500 Body height 180.34 cm [employer] Kev Lugo [employer] Work Phone: [facility] 03-24-2022 09:18-0500 Body mass index (BMI) [Ratio] 32.5 kg/m2 [employer] Kev Lugo [employer] Work Phone: [facility] 03-24-2022 09:18-0500 Body weight 106 kg [employer] Kev Lugo [employer] Work Phone: [facility] 01-14-2022 18:31-0500 Diastolic blood pressure 73 mm[Hg] [employer] Kev Lugo [employer] Work Phone: [facility] 01-14-2022 18:31-0500 Heart rate 88 /min [employer] Kev Lugo [employer] Work Phone: [facility] 01-14-2022 18:31-0500 Respiratory rate 15 /min [employer] Kev Lugo [employer] Work Phone: [facility] 01-14-2022 18:31-0500 SaO2% (BldA) [Mass fraction] 99 % [employer] Kev Lugo [employer] Work Phone: [facility] 01-14-2022 18:31-0500 Systolic blood pressure 126 mm[Hg] [employer] Kev Lugo [employer] Work Phone: [facility] 01-14-2022 14:28-0500 Body height 180.34 cm [employer] Kev Lugo [employer] Work Phone: [facility] Work Phone: 01-14-2022 14:28-0500 Body mass index (BMI) [Ratio] 31.5 kg/m2 [employer] Kve Lugo [employer] Work Phone: [facility] 01-14-2022 14:28-0500 Body temperature 97.1 [degF] [employer] Kev Lugo [employer] Work Phone: [facility] 01-14-2022 14:28-0500 Body weight 102.6 kg [employer] Kev Lugo [employer] Work Phone: [facility] 12-02-2021 09:25-0400 Body temperature 97.8 [degF] [employer] Kev Lugo [employer] Work Phone: [facility] 12-02-2021 09:25-0400 Diastolic blood pressure 74 mm[Hg] [employer] Kev Lugo [employer] Work Phone: [facility] 12-02-2021 09:25-0400 Heart rate 67 /min [employer] Kev Lugo [employer] Work Phone: [facility] 12-02-2021 09:25-0400 Respiratory rate 14 /min [employer] Kev Lugo [employer] Work Phone: [facility] 12-02-2021 09:25-0400 SaO2% (BldA) [Mass fraction] 96 % [employer] Kev Lugo [employer] Work Phone: [facility] 12-02-2021 09:25-0400 Systolic blood pressure 118 mm[Hg] [employer] Kev Lugo [employer] Work Phone: [facility] 12-02-2021 05:07-0400 Body weight 100.3 kg [employer] Kev Lugo [employer] Work Phone: [facility] 12-01-2021 22:17-0400 Body mass index (BMI) [Ratio] 31.1 kg/m2 [employer] Kev Lugo [employer] Work Phone: [facility] 12-01-2021 11:32-0400 Body height 180.34 cm [employer] Kev Lugo [employer] Work Phone: [facility] Work Phone: 11-30-2021 17:03-0400 Body temperature 97.9 [degF] [employer] Kev Lugo [employer] Work Phone: [facility] Work Phone: 11-30-2021 17:03-0400 Heart rate 69 /min [employer] Kev Lugo [employer] Work Phone: [facility] Work Phone: 11-30-2021 17:03-0400 Respiratory rate 14 /min [employer] Kev Lugo [employer] Work Phone: [facility] Work Phone: 11-30-2021 17:03-0400 SaO2% (BldA) [Mass fraction] 96 % [employer] Kev Lugo [employer] Work Phone: [facility] Work Phone: 11-30-2021 17:01-0400 Diastolic blood pressure 85 mm[Hg] [employer] Kev Lugo [employer] Work Phone: [facility] Work Phone: 11-30-2021 17:01-0400 Systolic blood pressure 133 mm[Hg] [employer] Kev Lugo [employer] Work Phone: [facility] Work Phone: 11-30-2021 15:55-0400 Body height 180.34 cm [employer] Kev Lugo [employer] Work Phone: [facility] Work Phone: 11-30-2021 15:55-0400 Body mass index (BMI) [Ratio] 29.3 kg/m2 [employer] Kev Lugo [employer] Work Phone: [facility] Work Phone: 11-30-2021 15:55-0400 Body weight 95.5 kg [employer] Kev Lugo [employer] Work Phone: [facility] Work Phone: 11-30-2021 10:08-0400 Body temperature 98.1 [degF] [employer] Kev Lugo [employer] Work Phone: [facility] 11-30-2021 10:08-0400 Body weight 102.22 kg [employer] Kev Lugo [employer] Work Phone: [place] [facility]-30-2021 10:08-0400 Diastolic blood pressure 84 mm[Hg] SUMO WRESTLER-C Kev Lugo SUMO WRESTLER Work Phone: [facility] 11-30-2021 10:08-0400 Heart rate 72 /min SUMO WRESTLER-C Kev Lugo SUMO WRESTLER Work Phone: [facility] 11-30-2021 10:08-0400 Respiratory rate 16 /min SUMO WRESTLER-C Kev Lugo SUMO WRESTLER Work Phone: [facility] 11-30-2021 10:08-0400 SaO2% (BldA) [Mass fraction] 97 % SUMO WRESTLER-C Kev Lugo SUMO WRESTLER Work Phone: [facility] 11-30-2021 10:08-0400 Systolic blood pressure 138 mm[Hg] SUMO WRESTLER-C Kev Lugo SUMO WRESTLER Work Phone: [facility] 09-20-2021 10:29-0400 Body height 180.[address] Di Walden Work Phone: [facility] Work Phone: 09-20-2021 10:29-0400 Body mass index (BMI) [Ratio] 31.6 kg/m2 Dr. Di Walden Work Phone: [facility] Work Phone: 09-20-2021 10:29-0400 Body temperature 98 [degF] Dr. Di Walden Work Phone: [facility] Work Phone: 09-20-2021 10:29-0400 Body weight 102.[address] Di Walden Work Phone: [facility] Work Phone: 09-20-2021 10:29-0400 Diastolic blood pressure 82 mm[Hg] Dr. Di Walden Work Phone: [facility] Work Phone: 09-20-2021 10:29-0400 Heart rate 68 /min Dr. Di Walden Work Phone: [facility] Work Phone: 09-20-2021 10:29-0400 Respiratory rate 16 /min Dr. Di Walden Work Phone: [facility] Work Phone: 09-20-2021 10:29-0400 SaO2% (BldA) [Mass fraction] 97 % Dr. Di Walden Work Phone: [facility] Work Phone: 09-20-2021 10:29-0400 Systolic blood pressure 128 mm[Hg] Dr. Di Walden Work Phone: [facility] Work Phone: 08-04-2021 19:32-0400 Diastolic blood pressure 82 mm[Hg] Dr. Di Walden Work Phone: [facility] Work Phone: 08-04-2021 19:32-0400 Heart rate 75 /min Dr. Di Walden Work Phone: [facility] Work Phone: 08-04-2021 19:32-0400 Respiratory rate 18 /min Dr. Di Walden Work Phone: [facility] Work Phone: 08-04-2021 19:32-0400 SaO2% (BldA) [Mass fraction] 97 % Dr. Di Walden Work Phone: [facility] Work Phone: 08-04-2021 19:32-0400 Systolic blood pressure 140 mm[Hg] Dr. Di Walden Work Phone: [facility] Work Phone: 08-04-2021 16:12-0400 Body height 180.[address] Di Walden Work Phone: [facility] Work Phone: 08-04-2021 16:12-0400 Body mass index (BMI) [Ratio] 33.9 kg/m2 Dr. Di Walden Work Phone: [facility] Work Phone: 08-04-2021 16:12-0400 Body temperature 98.8 [degF] Dr. Di Walden Work Phone: [facility] Work Phone: 08-04-2021 16:12-0400 Body weight 110.[address] Di Walden Work Phone: [facility] Work Phone: 07-08-2021 10:15-0400 Body mass index (BMI) [Ratio] 34.9 kg/m2 Dr. Di Walden Work Phone: [facility] Work Phone: 07-08-2021 10:15-0400 Body temperature 98.4 [degF] Dr. Di Walden Work Phone: [facility] Work Phone: 07-08-2021 10:15-0400 Body weight 113.[address] Di Walden Work Phone: [facility] Work Phone: 07-08-2021 10:15-0400 Diastolic blood pressure 68 mm[Hg] Dr. Di Walden Work Phone: [facility] Work Phone: 07-08-2021 10:15-0400 Heart rate 84 /min Dr. Di Walden Work Phone: [facility] Work Phone: 07-08-2021 10:15-0400 Respiratory rate 14 /min Dr. Di Walden Work Phone: [facility] Work Phone: 07-08-2021 10:15-0400 SaO2% (BldA) [Mass fraction] 97 % Dr. Di Walden Work Phone: [facility] Work Phone: 07-08-2021 10:15-0400 Systolic blood pressure 122 mm[Hg] Dr. Di Walden Work Phone: [facility] Work Phone: 07-08-2021 10:15-0400 Body height 180.[address] Di Walden Work Phone: [facility] Work Phone: 07-08-2021 10:15-0400 Body mass index (BMI) [Ratio] 34.9 kg/m2 Dr. Di Walden Work Phone: [facility] Work Phone: 07-08-2021 10:15-0400 Body temperature 98.4 [degF] Dr. Di Walden Work Phone: [facility] Work Phone: 07-08-2021 10:15-0400 Body weight 113.[address] Di Walden Work Phone: [facility] Work Phone: 07-08-2021 10:15-0400 Diastolic blood pressure 68 mm[Hg] Dr. Di Walden Work Phone: [facility] Work Phone: 07-08-2021 10:15-0400 Heart rate 84 /min Dr. Di Walden Work Phone: [facility] Work Phone: 07-08-2021 10:15-0400 Respiratory rate 14 /min Dr. Di Walden Work Phone: [facility] Work Phone: 07-08-2021 10:15-0400 SaO2% (BldA) [Mass fraction] 97 % Dr. Di Walden Work Phone: [facility] Work Phone: 07-08-2021 10:15-0400 Systolic blood pressure 122 mm[Hg] Dr. Di Walden Work Phone: [facility] Work Phone: 03-19-2021 08:22-0500 Body mass index (BMI) [Ratio] 0.4 kg/m2 Dr. Di Walden Work Phone: [facility] Work Phone: 03-19-2021 08:22-0500 Body temperature 98.2 [degF] Dr. Di Walden Work Phone: [facility] Work Phone: 03-19-2021 08:22-0500 Body weight 113.[address] Di Walden Work Phone: [facility] Work Phone: 03-19-2021 08:22-0500 Diastolic blood pressure 86 mm[Hg] Dr. Di Walden Work Phone: [facility] Work Phone: 03-19-2021 08:22-0500 Heart rate 75 /min Dr. Di Walden Work Phone: [facility] Work Phone: 03-19-2021 08:22-0500 Respiratory rate 14 /min Dr. Di Walden Work Phone: [facility] Work Phone: 03-19-2021 08:22-0500 SaO2% (BldA) [Mass fraction] 97 % Dr. Di Walden Work Phone: [facility] Work Phone: 03-19-2021 08:22-0500 Systolic blood pressure 128 mm[Hg] Dr. Di Walden Work Phone: [facility] Work Phone: 08-12-2019 16:44-0400 BMI (Body Mass Index) 32.65 kg/m2 Panchito Delatorre NT-Wwguddt-Xsdtvdv Work Phone: 08-12-2019 16:44-0400 Body Temperature 97.9 [degF] Panchitoangela Delatorre UY-Foxkoxq-Op hland Work Phone: 08-12-2019 16:44-0400 Body weight 106.17 kg Panchitorani Delatorre CI-Zaibwtz-Hsi land Work Phone: 08-12-2019 16:44-0400 BP Diastolic 82 mm[Hg] Panchito Delatorre BG-Ucptrrc-Nbs land Work Phone: 08-12-2019 16:44-0400 BP Systolic 136 mm[Hg] Panchito Tavallaee NQ-Rdwdjnn-Rlv land Work Phone: 08-12-2019 16:44-0400 BSA (Body Surface Area) 2.25 m2 Panchito Tavallaee FI-Ntpvxns-Mncryhj Work Phone: 08-12-2019 16:44-0400 Height 180.34 cm Panchito Tavallaee DL-Mfonsfw-Eoa land Work Phone: 08-12-2019 16:44-0400 Pulse (Heart Rate) 82 /min Panchito Tavallaee MP-Urology- [place] Work Phone: 08-12-2019 16:44-0400 Pulse Oximetry 96 % Panchito Tavallaee RH-Ptojkgj-Jll land Work Phone: 08-12-2019 16:44-0400 Respiratory Rate 16 /min Panchito Tavallaee QO-Wvexqyr-Mj hland Work Phone: 08-12-2019 11:26-0400 BMI (Body Mass Index) 33.05 kg/m2 Panchito Tavallaee RV-Nfgjoda-Wrbvcce Work Phone: 08-12-2019 11:26-0400 Body weight 107.5 kg Panchito Tavallaee TE-Irndcum-Npx land Work Phone: 08-12-2019 11:26-0400 BP Diastolic 62 mm[Hg] Panchito Tavallaee PE-Vpgdswy-Aha land Work Phone: 08-12-2019 11:26-0400 BP Systolic 154 mm[Hg] Panchito Tavallaee NM-Hesupkg-Lrm land Work Phone: 08-12-2019 11:26-0400 BSA (Body Surface Area) 2.27 m2 Panchito Tavallaee HS-Fqxcmyn-Agrjhst Work Phone: 08-12-2019 11:26-0400 Height 180.34 cm Panchito Tavallaee BC-Auxqtox-Hjr land Work Phone: 08-12-2019 11:26-0400 Pulse (Heart Rate) 115 /min Panchito Delatorre -Urology- [place] Work Phone: 04-26-2019 12:10-0500 BMI (Body Mass Index) 35.98 kg/m2 Thuy Hannah [facility] Work Phone: 04-26-2019 12:10-0500 Body weight 117.03 kg Thuy Delgadokins [facility] Work Phone: 04-26-2019 12:10-0500 BP Diastolic 84 mm[Hg] Thuy Delgadokins [facility] Work Phone: 04-26-2019 12:10-0500 BP Systolic 136 mm[Hg] Thuy Hannah [facility] Work Phone: 04-26-2019 12:10-0500 BSA (Body Surface Area) 2.35 m2 Thuy Delgadokins [facility] Internal Medicine Work Phone: 04-26-2019 12:10-0500 Height 180.34 cm Thuy Delgadokins [facility] Work Phone: 04-26-2019 12:10-0500 Pulse (Heart Rate) 76 /min Thuy Hannah [facility] Work Phone: 07-04-2018 11:50-0400 BP Diastolic 68 mm[Hg] [facility] 07-04-2018 11:50-0400 BP Systolic 102 mm[Hg] [facility] 07-04-2018 11:50-0400 Pulse (Heart Rate) 57 /min [facility] 07-04-2018 11:50-0400 Pulse Oximetry 95 % [facility] 07-04-2018 09:50-0400 Respiratory Rate 18 /min [facility] 07-04-2018 07:26-0400 BMI (Body Mass Index) 33.91 kg/m2 [facility] 07-04-2018 07:26-0400 [facility] 07-04-2018 07:26-0400 Weight 113.4 kg Josias Singh [facility] 07-04-2018 07:20-0400 Body Temperature 97.9 [degF] Josias Singh [facility] 02-01-2017 15:11-0500 BP Diastolic 77 mm[Hg] Nivia Cazares [facility] Work Phone: 02-01-2017 15:11-0500 BP Systolic 133 mm[Hg] Nivia Cazares [facility] Work Phone: 02-01-2017 15:11-0500 Pulse (Heart Rate) 66 /min Nivia Cazares [facility] Work Phone: 02-01-2017 15:09-0500 BMI (Body Mass Index) 35.55 kg/m2 Nivia Cazares [facility] Work Phone: 02-01-2017 15:09-0500 Height 180.3 cm Nivia Cazares [facility] Work Phone: 02-01-2017 15:09-0500 Respiratory Rate 16 /min Nivia Cazares [facility] Work Phone: 02-01-2017 15:09-0500 Weight 115.62 kg [facility]: Encounters Encounter Date Encounter Type Care Provider Facility Start: 12-10-2024 ambulatory [facility] Facility:[facility] Start: 11-25-2024 End: 11-25-[address] Jya Chavez MD -[facility] Work Phone: Start: 11-25-2024 End: 11-25-2024 ambulatory [facility] Start: 10-27-2024 End: 10-27-2024 [facility] Start: 09-17-2024 End: 09-17-2024 [facility] Start: 06-29-2024 End: 06-30-2024 Emergency department patient visit CARMELA CORRALES DO [facility] Start: 06-01-2024 End: 06-01-2024 ambulatory JOSE MARIA FERRARA JIGNESHMelissa Facility:[facility] Start: 06-01-2024 End: 06-01-2024 Patient encounter procedure Tila Reyes APRN.SNIPPER Work Phone: [facility] Comment on above: Rhinosinusitis (Prim bar Dx) Start: 12-11-2023 ambulatory [facility] Facility:[facility] Start: 04-26-2023 End: 04-26-2023 ambulatory [facility] Work Phone: Start: 04-26-2023 End: 04-26-2023 Patient encounter procedure [facility]-Laboratory, Specimen Work Phone: Start: 04-26-2023 End: 04-26-2023 Patient encounter procedure [facility] Work Phone: Start: 03-20-2023 Non-patient / Non-visit [facility] Start: 03-19-2023 Non-patient / Non-visit [facility] Start: 03-19-2023 Non-patient / Non-visit [facility] Work Phone: Start: 03-18-2023 Non-patient / Non-visit [facility] Start: 03-18-2023 Non-patient / Non-visit [facility] Work Phone: Start: 03-17-2023 End: 03-20-2023 Evaluation and management of inpatient [facility] Work Phone: Start: 03-17-2023 Non-patient / Non-visit [facility] Start: 03-16-2023 End: 03-16-2023 Non-patient / Non-visit [facility] Work Phone: Start: 03-16-2023 Evaluation and management of inpatient [facility] Work Phone: Start: 03-16-2023 Non-patient / Non-visit [facility] Work Phone: Start: 03-16-2023 observation encounter [facility] Work Phone: Start: 01-12-2023 End: 01-12-2023 Patient encounter procedure [facility] Work Phone: Start: 01-12-2023 Non-patient / Non-visit [facility] Work Phone: Start: 01-11-2023 Non-patient / Non-visit [facility] Start: 01-11-2023 Non-patient / Non-visit [facility] Work Phone: Start: 01-10-2023 End: 01-12-2023 Evaluation and management of inpatient SUMO WRESTLER-C Kev Lugo SUMO WRESTLER Work Phone: [facility]Intensive Care Unit Work Phone: Start: 10-18-2022 End: 10-18-2022 Discharged Recurring SUMO WRESTLER-C Kev Lugo SUMO WRESTLER Work Phone: [facility]-Physical Therapy Work Phone: Start: 09-16-2022 End: 09-16-2022 Patient encounter procedure SUMO WRESTLER-C Kev Lugo SUMO WRESTLER Work Phone: [facility] Work Phone: Start: 08-11-2022 End: 11-25-2022 Physical therapy management JAKE MCMAHON MD [facility] Start: 07-04-2022 Non-patient / Non-visit SUMO WRESTLER-C Gisela adame Lugo SUMO WRESTLER Work Phone: [facility] Start: 07-04-2022 End: 07-04-2022 Admission to same day surgery center SUMO WRESTLER-C Kev Lugo SUMO WRESTLER Work Phone: [facility]-Endoscopy Start: 07-04-2022 End: 07-04-2022 ambulatory SUMO WRESTLER-C Kev Lugo SUMO WRESTLER Work Phone: [facility] Work Phone: Start: 06-18-2022 End: 06-18-2022 ambulatory SUMO WRESTLER-C Kev Lugo SUMO WRESTLER Work Phone: [facility] Work Phone: Start: 06-18-2022 End: 06-18-2022 Patient encounter procedure SUMO WRESTLER-C Kev Lugo SUMO WRESTLER Work Phone: [facility]-Laboratory, Specimen Start: 06-17-2022 End: 06-17-2022 ambulatory SUMO WRESTLER-C Kev Lugo SUMO WRESTLER Work Phone: [facility] Work Phone: Start: 06-17-2022 End: 06-17-2022 Patient encounter procedure SUMO WRESTLER-C Kev Lugo SUMO WRESTLER Work Phone: [facility]Laboratory Start: 05-26-2022 End: 05-26-2022 Emergency department patient visit [facility] Start: 03-24-2022 End: 03-24-2022 Emergency department patient visit SUMO WRESTLER-C Kev Lugo SUMO WRESTLER Work Phone: [facility]Emergency Department Start: 01-31-2022 End: 01-31-2022 ambulatory SUMO WRESTLER-C Kev Lugo SUMO WRESTLER Work Phone: [facility] Work Phone: Start: 01-31-2022 End: 01-31-2022 Patient encounter procedure SUMO WRESTLER-C Kev Lugo SUMO WRESTLER Work Phone: [facility]-Laboratory, [facility] Start: 01-14-2022 End: 01-14-2022 Emergency department patient visit SUMO WRESTLER-C Kev Lugo SUMO WRESTLER Work Phone: [facility]Emergency Department Start: 01-13-2022 End: 01-13-2022 Patient encounter procedure SUMO WRESTLER-C Kev Lugo SUMO WRESTLER Work Phone: [facility] Internal Medicine Start: 01-05-2022 End: 01-05-2022 ambulatory SUMO WRESTLER-C Kev Lugo SUMO WRESTLER Work Phone: [facility] Work Phone: Start: 01-05-2022 End: 01-05-2022 Patient encounter procedure SUMO WRESTLER-C Kev Lugo SUMO WRESTLER Work Phone: [facility] Internal Medicine Start: 12-08-2021 Registered Referred SUMO WRESTLER-C Kev Lugo SUMO WRESTLER Work Phone: [facility]-Cardiovascular Services Start: 12-08-2021 Non-patient / Non-visit SUMO WRESTLER-C M wendi Lugo SUMO WRESTLER Work Phone: [facility] Start: 12-02-2021 Non-patient / Non-visit SUMO WRESTLER-C M wendi Lugo SUMO WRESTLER Work Phone: [facility] Start: 12-01-2021 Non-patient / Non-visit SUMO WRESTLER-C M wendi Lugo SUMO WRESTLER Work Phone: [facility] Start: 12-01-2021 Non-patient / Non-visit SUMO WRESTLER-C M wendi Lugo SUMO WRESTLER Work Phone: [facility] Start: 12-01-2021 Non-patient / Non-visit SUMO WRESTLER-C M wendi Linaresder SUMO WRESTLER Work Phone: [facility] Start: 11-30-2021 End: 12-02-2021 Evaluation and management of inpatient SUMO WRESTLER-C Kev Lugo SUMO WRESTLER Work Phone: [facility]-Intensive Care Unit Start: 11-30-2021 End: 11-30-2021 ambulatory SUMO WRESTLER-C Kev Lugo SUMO WRESTLER Work Phone: [facility] Work Phone: Start: 11-30-2021 End: 11-30-2021 Patient encounter procedure SUMO WRESTLER-Dimas Lugo SUMO WRESTLER Work Phone: [facility] Internal Medicine Start: 09-20-2021 End: 09-20-2021 Encounter for other preprocedural examination Dr. Di Walden Work Phone: [facility] Internal Medicine Start: 09-20-2021 End: 09-20-[address] Di Walden Work Phone: [facility] Internal [facility] Start: 08-04-2021 End: 08-04-2021 Emergency department patient visit Dr. Di Walden Work Phone: [facility]Emergency Department Start: 07-13-2021 End: 07-13-[address] Di Walden Work Phone: [facility] Internal Medicine Start: 07-09-2021 End: 07-09-[address] Di Walden Work Phone: [facility] [place] Start: 07-08-2021 Non-patient / Non-visit Dr. Kalani Walden Work Phone: [facility] Start: 07-08-2021 End: 07-08-[address] Di Walden Work Phone: [facility]Cardi[facility] Services Start: 07-08-2021 End: 07-08-[address] Di Walden Work Phone: [facility] Internal Medicine Start: 03-19-2021 End: 03-19-[address] Di Walden Work Phone: [facility] [place] Start: 09-25-2020 Chart Update Thuy Hannah Work Phone: [facility] Internal Medicine Work Phone: Start: 09-23-2020 Phys/qhp telephone evaluation 11-20 min Thuy Hannah Work Phone: [facility] Internal Medicine Work Phone: Start: 09-10-2020 Office outpatient vi sit 15 minutes Thuy Hannah Work Phone: [facility] Internal Medicine Work Phone: Start: 05-13-2020 End: 05-13-2020 Orders Only Mehnaz Vallejo Dee Work Phone: [facility] Start: 08-12-2019 Patient encounter procedure Panchito Tavallaee IW-Jjwmvjq-Lhzwbxh Work Phone: Start: 07-30-2019 Patient encounter procedure Panchito Tavallaee HH-Kqgtdhw-Yljxjtj Work Phone: Start: 07-08-2019 Patient encounter procedure Panchito Tavallaee UC-Jzakqbi-Utzoiyr Work Phone: Start: 06-10-2019 Patient encounter procedure Panchito Tavallaee AO-Cdphcaj-Pjftvbc Work Phone: Start: 05-21-2019 Patient encounter procedure Thuy Hannah [facility] Internal Medicine Work Phone: Start: 04-26-2019 Patient encounter procedure Thuy Delgadokins [facility] Internal Medicine Work Phone: Start: 08-14-2018 End: 08-17-2018 Patient encounter procedure STEVE BARRIOS [facility] Start: 07-04-2018 End: 07-04-2018 Patient encounter procedure JOSIAS REYNOLDS [facility] Start: 07-04-2018 End: 07-04-2018 Patient encounter procedure Josias Reynolds [facility] Work Phone: [facility] Start: 06-28-2018 End: 06-29-2018 Patient encounter procedure KENDELL S VIGESAA [facility] Start: 02-10-2018 End: 02-10-2018 Emergency department patient visit Fernando KRobert Beaulieu Facility:[facility] Start: 12-29-2017 End: 01-01-2018 Patient encounter procedure STEVE [facility] Start: 12-09-2017 End: 12-09-2017 Emergency department patient visit [facility] Start: 09-21-2017 End: 09-21-2017 Patient encounter Mariam Roberts Mariscal Facility:[facility] angela Urology [facility] Start: 07-27-2017 End: 07-28-2017 Patient encounter Laci Higgins Nara Facility:[facility] Start: 06-05-2017 End: 06-06-2017 Patient encounter Mariam Mariscal Facility:[facility] angela Urology [facility] Start: 04-19-2017 End: 04-19-2017 Patient encounter MANGO ESPINAL Facility:[facility] Internal Medicine Start: 04-17-2017 End: 04-18-2017 Evaluation and management of inpatient PROVIDER UNKNOWN Facility:[facility] Start: 04-13-2017 End: 04-13-2017 Patient encounter MANGO ESPINAL Facility:[facility] Internal [facility] Start: 04-05-2017 Patient encounter procedure Alejandra Xavikeyla Osacrcb Facility:[facility] Start: 03-17-2017 End: 03-18-2017 Patient encounter MANGO ESPINAL Facility:[facility] Start: 03-08-2017 End: 03-09-2017 Patient encounter MANGO ESPINAL Facility:[facility] Internal Medicine Start: 02-01-2017 End: 02-01-2017 Ambulatory LISA [facility] Start: 02-01-2017 Office outpatient ne w 30 minutes Lisa Henningy Work Phone: [facility] Start: 01-30-2017 [facility] Start: 12-19-2016 End: 12-20-2016 Ambulatory DEFAULT PHYSICIAN Facility:[facility] Patient encounter procedure Thuy Hannah Work Phone: -[facility] Internal Medicine Work Phone: Procedures Date Procedure Procedure Detail Performing Clinician Start: 10-27-2024 Computed tomography of abdomen and pelvis with intravenous contrast [facility] Start: 10-27-2024 Estimated creatinine clearance [facility] Start: 10-27-2024 Urnls dip stick/tabl et reagent auto microscopy [facility] Start: 09-17-2024 CT of thorax, abdome n and pelvis with contrast [facility] Start: 09-17-2024 Estimated creatinine clearance [facility] Start: 04-26-2023 SARS-CoV-2, Influenz a & RSV (PCR) [facility] Start: 03-17-2023 Cardiovascular stres s test using pharmacologic stress agent [facility] Start: 03-16-2023 Plain chest X-ray [facility] Start: 01-11-2023 MRI of brain without contrast [facility] Start: 01-11-2023 Plain x-ray of wrist [facility] Start: 01-10-2023 Plain chest X-ray [employer] WRESTLER-C Kev Linaresder SUMO WRESTLER Work Phone: Start: 01-10-2023 CT of head without contrast SUMO WRESTLER-C Kev Linaresder SUM[employer] WRESTLER Work Phone: Start: 01-10-2023 CT angiography of he ad and neck SUMO WRESTLER-C Kev Lugo SUMO WRESTLER Work Phone: Start: 07-04-2022 Colonoscopy SUMO WRESTLER-C Kev Linaresder SUMO WRESTLER Work Phone: Start: 05-26-2022 CT of abdomen and pe lvis without contrast Start: 03-24-2022 Computed tomography of abdomen and pelvis with intravenous contrast [employer]O WRESTLER-C Kev Lugo SUMO WRESTLER Work Phone: Start: 03-24-2022 Plain chest X-ray [employer] WRESTLER-C Kev Linaresder SUMO WRESTLER Work Phone: Start: 01-14-2022 Computed tomography of abdomen and pelvis with intravenous contrast SUMO WRESTLER-C Kev Lugo SUMO WRESTLER Work Phone: Start: 12-01-2021 MRI of brain without contrast SUMO WRESTLER-C Kev Lugo SUMO WRESTLER Work Phone: Start: 11-30-2021 Plain chest X-ray [employer]O WRESTLER-C Kev Lugo SUMO WRESTLER Work Phone: Start: 11-30-2021 CT angiography of he ad and neck SUMO WRESTLER-C Kev Lugo SUMO WRESTLER Work Phone: Start: 11-30-2021 CT of head without contrast SUMO WRESTLER-C Kev Lugo SUMO WRESTLER Work Phone: Start: 08-04-2021 Computed tomography of abdomen and pelvis with contrast Dr. Di Walden Work Phone: Start: 08-12-2019 Assay of prostate sp ecific antigen total Panchito Tavallaee Start: 08-12-2019 Assay of testosterone total Panchito Tavallaee Start: 08-12-2019 Measurement of total hemoglobin concentration and hematocrit Panchito Tavallaee Start: 04-26-2019 Ultrasound Scrotum W ith Dopplers Thuy Hannah Start: 04-26-2019 US Bilateral Extremi ty, Nonvascular, Real Time with Image Documentation, Limited, Anatomic Specific Thuy Hannah Start: 08-14-2018 Dup-scan xtr veins unilateral/limited study [facility] Start: 07-04-2018 Cardiac catheterization Josias Singh Work Phone: Start: 06-28-2018 25 hydroxy includes fractions if performed [facility] Start: 06-28-2018 Assay of thyroid sti mulating hormone tsh [facility] Start: 06-28-2018 Blood typing serologic abo [facility] Start: 06-28-2018 Comprehensive metabo lic panel [facility] Start: 06-28-2018 Lipid panel [facility] Start: 06-28-2018 Lipid 1996 panel - S treva or Plasma Tila Reyes APRN.SNIPPER Work Phone: Start: 12-29-2017 Myocardial spect mul tiple studies [facility] Start: 12-29-2017 Cv strs tst xers&/or rx cont ecg w/o i&r [facility] Start: 12-29-2017 Echo tthrc r-t 2d w/ wom-mode compl spec&colr d [facility] Start: 12-09-2017 Radiologic exam ches t single view [facility] Start: 12-09-2017 Ct head/brain w/o co ntrast material [facility] Start: 12-09-2017 Assay of free thyroxine [facility] Start: 12-09-2017 Assay of thyroid sti mulating hormone tsh [facility] Start: 12-09-2017 Blood count complete auto&auto difrntl wbc [facility] Start: 12-09-2017 Comprehensive metabo lic panel [facility] Start: 12-09-2017 D-DIMER, QUANTITATIVE G MTREZA [facility] Start: 12-09-2017 Prothrombin time [facility] Start: 12-09-2017 T3 free mass conc [facility] Start: 12-09-2017 Thromboplastin time partial plasma/whole blood [facility] Start: 12-09-2017 Troponin I.cardiac mass conc [facility] Start: 12-09-2017 EKG 12-LEAD [facility] Start: 04-18-2017 MEASUREMENT OF ASSISTANT BOOKKEEPER E LECTR ACTIVITY, FILLING LAYER UP APPROACH SKY CARRILLO Start: 10-28-2016 Colonoscopy Thuy Noriega ns Work Phone: Comment on above: NORMAL PER PT; Start: 02-27-2015 Cholecystectomy Thuy wayins Work Phone: Start: 02-27-1982 Appendectomy Thuy Noriega ns Work Phone: Appendectomy Thuy Hannah Comment on above: Completed: 1982 Cholecystectomy Thuy Hannah Comment on above: Completed: 2015 End: 10-28-2016 Colonoscopy Thuy Hannah Enteric Bacteriology [employer] Peter Lugo [employer] Work Phone: Enteric Bacteriology [employer] Peter Lugo [employer] Work Phone: Lactoferrin measurement [employer] Kev Lugo [employer] Work Phone: Tonsillectomy Thuy Hannah Urine culture [employer] Kev helms [employer] Work Phone: Urine culture [employer] Kev helms [employer] Work Phone: Plan of Treatment Date Care Activity Detail Author Start: 11-20-2027 Tetanus vaccination [facility] Start: 11-20-2027 Urine microalbumin profile DTa P,Tdap,Td Vaccine (4 - Td or Tdap) [facility] Start: 11-25-[address] [facility] Start: 11-25-2024 [facility] Start: 10-27-2024 [facility] Start: 09-17-2024 [facility] Start: 09-17-2024 [facility] Start: 09-17-2024 [facility] Start: 08-11-2024 Prostate specific an tigen measurement Prostate Cancer Screening Discussion [facility] Start: 10-29-2023 Covid-19 Vaccine () Covid-19 Vaccine () [facility] Start: 06-29-2023 Lipid panel Lipid Screening [facility] Start: 03-20-2023 Patient discharge [facility] Start: 03-20-2023 Notification of physician [facility] Start: 03-20-2023 Patient education [facility] Start: 03-20-2023 Provision of activit y privileges [facility] Start: 03-20-[address] [facility] Start: 03-20-2023 Taking patient vital signs [facility] Start: 03-20-[address] [facility] Start: 03-20-2023 [facility] Start: 03-18-2023 Provision of activit y privileges [facility] Start: 03-18-2023 [facility] Start: 03-17-2023 Admission procedure [facility] Start: 03-17-2023 Referral to route delivery driver [facility] Start: 03-16-2023 Notification of physician [facility] Start: 03-16-2023 [facility] Start: 03-16-2023 Following clinical p athway protocol [facility] Start: 03-16-2023 Hospital admission, emergency, from emergency room, medical nature [facility] Start: 03-16-2023 Admission procedure [facility] Start: 03-16-2023 [facility] Start: 01-12-2023 Patient discharge [facility] Start: 01-11-2023 Care planning and pr oblem solving actions [facility] Start: 01-11-2023 CT Unspecified body region WO [facility] Start: 01-11-2023 STROKE Brain/Head wi thout Cont STROKE Brain/Head without Cont [facility] Start: 01-11-2023 Bleeding precautions [facility] Start: 01-11-2023 Thyroid stimulating hormone measurement [facility] Start: 01-11-2023 [facility] Start: 01-10-2023 Application of inter mittent pneumatic compression device [facility] Start: 01-10-2023 Following clinical p athway protocol [facility] Start: 01-10-2023 End: 01-11-2023 Troponin I measurement [facility] Start: 01-10-2023 Assessment of risk o f venous thromboembolism [facility] Start: 01-10-[address] [facility] Start: 01-10-2023 Care regimes management [facility] Start: 01-10-[address] [facility] Start: 01-10-2023 Continuous positive airway pressure ventilation treatment [facility] Start: 01-10-2023 Continuous pulse oximetry [facility] Start: 01-10-2023 Electrocardiographic procedure [facility] Start: 01-10-2023 Incentive spirometry [facility] Start: 01-10-2023 Inhalation therapy procedure [facility] Start: 01-10-2023 Insertion of cathete r into peripheral vein [facility] Start: 01-10-2023 Introduction of urin bar catheter [facility] Start: 01-10-2023 Measuring intake and output [facility] Start: 01-10-2023 MRI of brain without contrast Brain without Contrast [facility] Start: 01-10-2023 Notification of physician [facility] Start: 01-10-2023 Oxygen therapy [facility] Start: 01-10-2023 Patient referral to dietitian [facility] Start: 01-10-2023 Providing care accor ding to standard [facility] Start: 01-10-2023 Provision of activit y privileges [facility] Start: 01-10-2023 Referral to occupati onal therapist [facility] Start: 01-10-2023 Referral to service [facility] Start: 01-10-2023 Speech therapy assessment [facility] Start: 01-10-2023 Telepractice consultation [facility] Start: 01-10-2023 Vital signs measurements [facility] Start: 01-10-2023 [facility] Start: 01-10-2023 Bleeding precautions [facility] Start: 01-10-2023 Verification routine [facility] Start: 01-10-2023 Admission procedure [facility] Start: 01-10-2023 Bleeding precautions [facility] Start: 01-10-[address] [facility] Start: 01-10-2023 Patient referral to dietitian [facility] Start: 07-04-2022 Patient discharge [facility] Start: 06-18-2022 Protein measurement [facility] Start: 03-24-2022 [facility] Start: 03-04-2022 Diabetes Screening Diabetes Screenin [facility] Start: 12-02-2021 Patient discharge [facility] Start: 12-01-2021 Care planning and pr oblem solving actions [facility] Start: 12-01-2021 [facility] Start: 11-30-2021 Application of inter mittent pneumatic compression device [facility] Start: 11-30-2021 Aspiration precautions [facility] Start: 11-30-2021 Assessment of risk o f venous thromboembolism [facility] Start: 11-30-[address] [facility] Start: 11-30-2021 Care regimes management [facility] Start: 11-30-[address] [facility] Start: 11-30-2021 Continuous pulse oximetry [facility] Start: 11-30-2021 Elevation of head of bed [facility] Start: 11-30-2021 Fall prevention [facility] Start: 11-30-2021 Insertion of cathete r into peripheral vein [facility] Start: 11-30-2021 Measuring intake and output [facility] Start: 11-30-2021 Oxygen therapy [facility] Start: 11-30-2021 Providing care accor ding to standard [facility] Start: 11-30-2021 Provision of activit y privileges [facility] Start: 11-30-2021 Referral to occupati onal therapist [facility] Start: 11-30-2021 Referral to service [facility] Start: 11-30-2021 Speech therapy assessment [facility] Start: 11-30-2021 Vital signs measurements [facility] Start: 11-30-2021 End: 11-30-2021 [facility] Start: 11-30-2021 End: 11-30-2021 Following clinical pathway protocol [facility] Start: 11-30-2021 Verification routine [facility] Work Phone: Start: 11-30-2021 Admission procedure [facility] Start: 11-30-2021 Bleeding precautions [facility] Start: 11-30-[address] [facility] Start: 11-30-2021 Oxygen therapy [facility] Work Phone: Start: 11-30-2021 Plain chest X-ray Chest 1 View [facility] Work Phone: Start: 11-30-2021 End: 11-30-2021 [facility] Work Phone: Start: 11-30-2021 [facility] Work Phone: Start: 06-08-2021 Patient encounter procedure JASON ZAMORANO, Provider: Thuy Hannah, Status: Pen, Time: 9:20 AM [facility] Work Phone: Start: 01-28-2020 Assay of prostate sp ecific antigen total Prostate Specific Antigen IX-Aijtgbx-Dtqbkt d Work Phone: Start: 01-28-2020 Assay of testosterone total Testoste kandy, Level AT-Uzuoldb-Wrpavh d Work Phone: Start: 01-28-2020 Measurement of total hemoglobin concentration and hematocrit Hemoglobin + Hematocrit JA-Lfjnhma-Oayinl d Work Phone: Start: 10-29-2019 Influenza vaccination given Se quential Influenza Vaccine (#1) [facility] Start: 10-28-2018 Influenza vaccination given SE QUENTIAL INFLUENZA VACCINE (Season Ended) [facility] Start: 04-05-2017 End: 04-05-2017 Ambulatory [facility] Start: 10-28-2016 Influenza vaccination SEQUENTI AL INFLUENZA VACCINE (#1) [facility] Work Phone: Start: 07-07-2015 Administration of he rpes zoster vaccine Zoster Vaccines (1 of 2) [facility] Start: 07-07-2015 Screening for malign ant neoplasm of colon [facility] Start: 2010 Screening for malign ant neoplasm of colon [facility] Start: 1984 Hepatitis B Vaccine (1 of 3 - 19+ 3-dose series) Hepatitis B Vaccine (1 of 3 - 19+ 3-dose series) [facility] Start: 07-07-1983 Anxiety Screening Anxiety Screening [facility] Start: 07-07-1983 Depression Screening Depression Scre ening [facility] Start: 07-07-1983 Hepatitis C antibody , confirmatory test Hepatitis C Screening [facility] Start: 07-07-1983 Hepatitis C screening Hepatitis C Sc reening [facility] Start: 07-07-1983 HIV screening HIV Screening [facility] Start: 1981 COVID-19 Vaccine (1 of 2) COVI D-19 Vaccine (1 of 2) [facility] Start: 1980 HIV screening HIV Screening [facility] Start: 1977 Adolescent depressio n screening assessment Depression Screening (PHQ9) [facility] Start: 1968 History and physical examination, annual for health maintenance Wellness Visit [facility] Start: 1965 Prostate specific an tigen measurement PSA Level [facility] Start: 1965 [facility] Work Phone: Start: 1965 Screening for malign ant neoplasm of colon Colorectal Cancer Screening: Colonoscopy [facility] Start: 1965 Tetanus vaccination TETANUS EVERY 10 YR [facility] Work Phone: Alanine aminotransfe rase [Enzymatic activity/volume] in Serum or Plasma [facility] Albumin [Mass/volume ] in Serum or Plasma [facility] Alkaline phosphatase [Enzymatic activity/volume] in Serum or Plasma [facility] Anion gap measurement [facility] Aspartate aminotrans ferase [Enzymatic activity/volume] in Serum or Plasma [facility] Bacteria identified in Urine by Culture Urine Culture [facility] Work Phone: Bilirubin, total measurement [facility] BUN/Creatinine ratio [facility] Calcium [Mass/volume ] in Serum or Plasma [facility] Carbon dioxide, tota l [Moles/volume] in Serum or Plasma [facility] Cardiac catheterization Cardiac Catheterization Routine 07/04/2018 9:24 AM EDT [facility] Cardiac event recording [facility] Work Phone: Chloride [Moles/volu me] in Serum or Plasma [facility] Cholesterol [Mass/vo lume] in Serum or Plasma [facility] Cholesterol in HDL [Mass/volume] in Serum or Plasma [facility] Cholesterol in LDL [Mass/volume] in Serum or Plasma [facility] Creatinine [Moles/vo lume] in Serum or Plasma [facility] Enteric Bacteriology Enteric Bacteriology [facility] Work Phone: Gastrointestinal pat hogens panel - Stool by GITA with probe detection [facility] Work Phone: Glucose [Mass/volume ] in Serum or Plasma [facility] Hematocrit [Volume Fraction] of Blood [facility] Hemoglobin [Mass/vol ume] in Blood [facility] Hemoglobin A1c/Hemoglobin.total in Blood [facility] Leukocytes [#/volume ] in Blood [facility] Magnesium [Mass/volu me] in Serum or Plasma [facility] Work Phone: Mean corpuscular hem oglobin concentration determination [facility] Mean corpuscular hem oglobin determination [facility] Measurement of renal function [facility] Neutrophil count [facility] Neutrophil percent differential count [facility] Patient Education [facility] Work Phone: Patient referral [facility] Work Phone: Platelets [#/volume] in Blood [facility] Potassium [Moles/vol ume] in Serum or Plasma [facility] Red blood cell count [facility] Red cell distributio n width determination [facility] Sodium [Moles/volume ] in Serum or Plasma [facility] Total protein measurement [facility] Triglycerides measurement [facility] End: 04-04-2018 Ultrasound venous insufficiency right leg Ultrasound venous insufficiency right leg Routine Varicose veins of leg with pain, right 1 Occurrences starting 02/01/2017 until 04/04/2018 [facility] Work Phone: Urea nitrogen [Mass/ volume] in Serum or Plasma [facility] VLDL cholesterol measurement [facility] NEGATED: Highlighted row has been ruled out! Planned Goals not documented CN-Qwcsqfb-Qvnyep d Work Phone: Immunizations Immunization Date Immunization Notes Care Provider Kathia huerta 12-02-2021 influenza, injectabl e, quadrivalent, preservative free [employer] Kev Lugo [employer] Work Phone: [facility] 12-02-2021 influenza, seasonal, injectable [employer] Kev Lugo [employer] Work Phone: [facility] 11-27-2020 Covid (Pfizer) Dr. Di Walden Work Phone: [facility] 11-27-[address] Di Walden Work Phone: [facility] 05-27-2020 Covid (Pfizer) Dr. Di Walden Work Phone: [facility] 05-16-2020 Pfizer-BioNTech COVID-19 Vacc 30 MCG/0.3ML Intramuscular Suspension Thuy Hannah Work Phone: [facility] Work Phone: 04-25-2020 Pfizer-BioNTech COVID-19 Vacc 30 MCG/0.3ML Intramuscular Suspension Thuy Hannah Work Phone: [facility] 12-10-2019 Influenza, injectabl e, Madin [place] Canine Kidney, preservative free, quadrivalent Thuy Hannah Work Phone: [facility] Work Phone: 11-28-2019 influenza, injectabl e, quadrivalent, preservative free [employer] Kev Lugo [employer] Work Phone: [facility] 11-28-2019 influenza, seasonal, injectable Dr. Di Walden Work Phone: [facility] 12-11-2018 influenza, injectabl e, quadrivalent, preservative free Thuy Hannah Work Phone: [facility] Work Phone: 11-27-2018 influenza, seasonal, injectable Thuy D Hannah Work Phone: [facility] Work Phone: Comment on above: Series: 11-27-2018 influenza, seasonal, injectable Thuy Hannah [facility] Work Phone: 12-02-2017 influenza nasal, unspecified formulation Tila Reyes APRN.[facility] Work Phone: [facility] 12-02-2017 influenza, injectabl e, quadrivalent, preservative free Thuy D Hannah Work Phone: [facility] Work Phone: 11-19-2017 tetanus toxoid, redu madhav diphtheria toxoid, and acellular pertussis vaccine, adsorbed Thuy D Hannah Work Phone: [facility] 11-16-2015 influenza, seasonal, injectable, preservative free Thuy D Hannah Work Phone: [facility] Work Phone: 04-04-2012 tetanus toxoid, redu madhav diphtheria toxoid, and acellular pertussis vaccine, adsorbed Thuy D Hannah Work Phone: [facility] Work Phone: Payers Date Payer Category Payer Unknown [id number] 2024 Medicare (Managed Care) [facility] MEDICARE HMO [id number] 2024 Medicare [id number] 2023 Self-pay [id number] 2023 Medicare [id number] 2017 Unknown 2017 Medicare 2017 Unknown [id number] 3 2015 Medicare [id number] 3 2013 Medicare MEDICARE MEDICAR E PART A & B [id number] 2013-Present [place] xxxxxxxxxx [id number] 2013 Medicare [id number] 2013 Medicare MEDICARE MEDICAR E PART A & B [id number] 2013-Present [place] [id number] 1965 Unknown [id number] 1965 Unknown [id number] .[id number] Unknown [id number] 1965 Unknown [id number] 1965 Unknown [id number] 1965 Unknown [id number] 1965 Unknown [id number] 1965 Unknown [id number] 1965 Unknown [id number] 1965 Unknown [id number] Private Health Insurance [id number] Unknown [id number] Unknown [id number] Unknown [id number] Unknown [id number] Unknown [id number] Social History Date Type Detail Facility Start: 02-01-2017 End: 06-01-2024 Tobacco smoking status NHIS Never smoker [facility] Work Phone: Start: 1965 Sex Assigned At Not on file [facility] Work Phone: Start: 07-04-2018 End: 10-27-2024 Tobacco smoking status NHIS Former smoker [facility] End: 07-04-2005 History of tobacco use Current smoker [facility] Start: 07-04-2018 End: 02-05-2020 Cigarettes smoked current (pack per day) - Reported [facility] Start: 07-05-2018 End: 06-01-2024 Tobacco use and exposure Never used [facility] Start: 07-05-2018 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 Start: 06-06-2020 Spouse/ Signif icant Other [facility] Start: 06-06-[address]-sm[address] [facility] Start: 1965 Sex Assigned At Male [facility] Tobacco smoking status [facility] Start: 02-05-2020 End: 06-01-2024 Tobacco use panel [facility] National Score (1-100), lower number is lower risk Not on file [facility] Tobacco Nicotine Use: denies. [facility] Start: 07-13-2022 Sex Male (finding) [facility] Start: 08-02-2023 Tobacco Use Tobacco Use [facility] NEGATED: Highlighted row - - [facility] Work Phone: Medical Equipment Procedure Code Equipment Code Equipment Original Text Equipment Identifier Dates Laparoscopic-assisted sigmoidectomy AFTERNOON BABYSITTER,CLIP 5MM LIGAMAX FDA Start: 02-24-2020 Laparoscopic-assisted sigmoidectomy RELOAD,BLUE 60 FDA Start: 02-24-2020 Laparoscopic-assisted sigmoidectomy RELOAD,BLUE 60 FDA Start: 02-24-2020 Laparoscopic-assisted sigmoidectomy STAPLER,INTRA [id number] ETHICON FDA Start: 02-24-2020 Laparoscopic-assisted sigmoidectomy AFTERNOON BABYSITTER,CLIP 5MM LIGAMAX FDA Start: 02-24-2020 Laparoscopic-assisted sigmoidectomy RELOAD,BLUE 60 FDA Start: 02-24-2020 Laparoscopic-assisted sigmoidectomy RELOAD,BLUE 60 FDA Start: 02-24-2020 Laparoscopic-assisted sigmoidectomy STAPLER,INTRA [id number] ETHICON FDA Start: 02-24-2020 Laparoscopic-assisted sigmoidectomy AFTERNOON BABYSITTER,CLIP 5MM LIGAMAX FDA Start: 02-24-2020 Laparoscopic-assisted sigmoidectomy RELOAD,BLUE 60 FDA Start: 02-24-2020 Laparoscopic-assisted sigmoidectomy RELOAD,BLUE 60 FDA Start: 02-24-2020 Laparoscopic-assisted sigmoidectomy STAPLER,INTRA [id number] ETHICON FDA Start: 02-24-2020 Laparoscopic-assisted sigmoidectomy AFTERNOON BABYSITTER,CLIP 5MM LIGAMAX FDA Start: 02-24-2020 Laparoscopic-assisted sigmoidectomy RELOAD,BLUE 60 FDA Start: 02-24-2020 Laparoscopic-assisted sigmoidectomy RELOAD,BLUE 60 FDA Start: 02-24-2020 Laparoscopic-assisted sigmoidectomy STAPLER,INTRA [id number] ETHICON FDA Start: 02-24-2020 Laparoscopic-assisted sigmoidectomy AFTERNOON BABYSITTER,CLIP 5MM LIGAMAX FDA Start: 02-24-2020 Laparoscopic-assisted sigmoidectomy RELOAD,BLUE 60 FDA Start: 02-24-2020 Laparoscopic-assisted sigmoidectomy RELOAD,BLUE 60 FDA Start: 02-24-2020 Laparoscopic-assisted sigmoidectomy STAPLER,INTRA [id number] ETHICON FDA Start: 02-24-2020 Laparoscopic-assisted sigmoidectomy AFTERNOON BABYSITTER,CLIP 5MM LIGAMAX FDA Start: 02-24-2020 Laparoscopic-assisted sigmoidectomy RELOAD,BLUE 60 FDA Start: 02-24-2020 Laparoscopic-assisted sigmoidectomy RELOAD,BLUE 60 FDA Start: 02-24-2020 Laparoscopic-assisted sigmoidectomy STAPLER,INTRA CDH29A ETHICON FDA Start: 02-24-2020 Laparoscopic-assisted sigmoidectomy AFTERNOON BABYSITTER,CLIP 5MM LIGAMAX FDA Start: 02-24-2020 Laparoscopic-assisted sigmoidectomy RELOAD,BLUE 60 FDA Start: 02-24-2020 Laparoscopic-assisted sigmoidectomy RELOAD,BLUE 60 FDA Start: 02-24-2020 Laparoscopic-assisted sigmoidectomy STAPLER,INTRA CDH29A ETHICON FDA Start: 02-24-2020 Laparoscopic-assisted sigmoidectomy AFTERNOON BABYSITTER,CLIP 5MM LIGAMAX FDA Start: 02-24-2020 Laparoscopic-assisted sigmoidectomy RELOAD,BLUE 60 FDA Start: 02-24-2020 Laparoscopic-assisted sigmoidectomy RELOAD,BLUE 60 FDA Start: 02-24-2020 Laparoscopic-assisted sigmoidectomy STAPLER,INTRA CDH29A ETHICON FDA Start: 02-24-2020 Laparoscopic-assisted sigmoidectomy AFTERNOON BABYSITTER,CLIP 5MM LIGAMAX FDA Start: 02-24-2020 Laparoscopic-assisted sigmoidectomy RELOAD,BLUE 60 FDA Start: 02-24-2020 Laparoscopic-assisted sigmoidectomy RELOAD,BLUE 60 FDA Start: 02-24-2020 Laparoscopic-assisted sigmoidectomy STAPLER,INTRA CDH29A ETHICON FDA Start: 02-24-2020 Laparoscopic-assisted sigmoidectomy AFTERNOON BABYSITTER,CLIP 5MM LIGAMAX FDA Start: 02-24-2020 Laparoscopic-assisted sigmoidectomy RELOAD,BLUE 60 FDA Start: 02-24-2020 Laparoscopic-assisted sigmoidectomy RELOAD,BLUE 60 FDA Start: 02-24-2020 Laparoscopic-assisted sigmoidectomy STAPLER,INTRA CDH29A ETHICON FDA Start: 02-24-2020 Laparoscopic-assisted sigmoidectomy AFTERNOON BABYSITTER,CLIP 5MM LIGAMAX FDA Start: 02-24-2020 Laparoscopic-assisted sigmoidectomy RELOAD,BLUE 60 FDA Start: 02-24-2020 Laparoscopic-assisted sigmoidectomy RELOAD,BLUE 60 FDA Start: 02-24-2020 Laparoscopic-assisted sigmoidectomy STAPLER,INTRA CDH29A ETHICON FDA Start: 02-24-2020 Laparoscopic-assisted sigmoidectomy AFTERNOON BABYSITTER,CLIP 5MM LIGAMAX FDA Start: 02-24-2020 Laparoscopic-assisted sigmoidectomy RELOAD,BLUE 60 FDA Start: 02-24-2020 Laparoscopic-assisted sigmoidectomy RELOAD,BLUE 60 FDA Start: 02-24-2020 Laparoscopic-assisted sigmoidectomy STAPLER,INTRA CDH29A ETHICON FDA Start: 02-24-2020 Laparoscopic-assisted sigmoidectomy AFTERNOON BABYSITTER,CLIP 5MM LIGAMAX FDA Start: 02-24-2020 Laparoscopic-assisted sigmoidectomy RELOAD,BLUE 60 FDA Start: 02-24-2020 Laparoscopic-assisted sigmoidectomy RELOAD,BLUE 60 FDA Start: 02-24-2020 Laparoscopic-assisted sigmoidectomy STAPLER,INTRA CDH29A ETHICON FDA Start: 02-24-2020 Laparoscopic-assisted sigmoidectomy AFTERNOON BABYSITTER,CLIP 5MM LIGAMAX FDA Start: 02-24-2020 Laparoscopic-assisted sigmoidectomy RELOAD,BLUE 60 FDA Start: 02-24-2020 Laparoscopic-assisted sigmoidectomy RELOAD,BLUE 60 FDA Start: 02-24-2020 Laparoscopic-assisted sigmoidectomy STAPLER,INTRA CDH29A ETHICON FDA Start: 02-24-2020 Laparoscopic-assisted sigmoidectomy AFTERNOON BABYSITTER,CLIP 5MM LIGAMAX FDA Start: 02-24-2020 Laparoscopic-assisted sigmoidectomy RELOAD,BLUE 60 FDA Start: 02-24-2020 Laparoscopic-assisted sigmoidectomy RELOAD,BLUE 60 FDA Start: 02-24-2020 Laparoscopic-assisted sigmoidectomy STAPLER,INTRA CDH29A ETHICON FDA Start: 02-24-2020 Laparoscopic-assisted sigmoidectomy AFTERNOON BABYSITTER,CLIP 5MM LIGAMAX FDA Start: 02-24-2020 Laparoscopic-assisted sigmoidectomy RELOAD,BLUE 60 FDA Start: 02-24-2020 Laparoscopic-assisted sigmoidectomy RELOAD,BLUE 60 FDA Start: 02-24-2020 Laparoscopic-assisted sigmoidectomy STAPLER,INTRA CDH29A ETHICON FDA Start: 02-24-2020 Laparoscopic-assisted sigmoidectomy AFTERNOON BABYSITTER,CLIP 5MM LIGAMAX FDA Start: 02-24-2020 Laparoscopic-assisted sigmoidectomy RELOAD,BLUE 60 FDA Start: 02-24-2020 Laparoscopic-assisted sigmoidectomy RELOAD,BLUE 60 FDA Start: 02-24-2020 Laparoscopic-assisted sigmoidectomy STAPLER,INTRA CDH29A ETHICON FDA Start: 02-24-2020 Laparoscopic-assisted sigmoidectomy AFTERNOON BABYSITTER,CLIP 5MM LIGAMAX FDA Start: 02-24-2020 Laparoscopic-assisted sigmoidectomy RELOAD,BLUE 60 FDA Start: 02-24-2020 Laparoscopic-assisted sigmoidectomy RELOAD,BLUE 60 FDA Start: 02-24-2020 Laparoscopic-assisted sigmoidectomy STAPLER,INTRA CDH29A ETHICON FDA Start: 02-24-2020 Laparoscopic-assisted sigmoidectomy AFTERNOON BABYSITTER,CLIP 5MM LIGAMAX FDA Start: 02-24-2020 Laparoscopic-assisted sigmoidectomy RELOAD,BLUE 60 FDA Start: 02-24-2020 Laparoscopic-assisted sigmoidectomy RELOAD,BLUE 60 FDA Start: 02-24-2020 Laparoscopic-assisted sigmoidectomy STAPLER,INTRA CDH29A ETHICON FDA Start: 02-24-2020 Laparoscopic-assisted sigmoidectomy AFTERNOON BABYSITTER,CLIP 5MM LIGAMAX FDA Start: 02-24-2020 Laparoscopic-assisted sigmoidectomy RELOAD,BLUE 60 FDA Start: 02-24-2020 Laparoscopic-assisted sigmoidectomy RELOAD,BLUE 60 FDA Start: 02-24-2020 Laparoscopic-assisted sigmoidectomy STAPLER,INTRA CDH29A ETHICON FDA Start: 02-24-2020 Laparoscopic-assisted sigmoidectomy AFTERNOON BABYSITTER,CLIP 5MM LIGAMAX FDA Start: 02-24-2020 Laparoscopic-assisted sigmoidectomy RELOAD,BLUE 60 FDA Start: 02-24-2020 Laparoscopic-assisted sigmoidectomy RELOAD,BLUE 60 FDA Start: 02-24-2020 Laparoscopic-assisted sigmoidectomy STAPLER,INTRA CDH29A ETHICON FDA Start: 02-24-2020 Closure 6fr Angioseal Vip - [id number] Start: 07-04-2018 Closure 6fr Angioseal Vip - [id number] Start: 07-04-2018 Goals Date Patient Goal Desired Activity /State Functional Status Date Assessment Result Facility 06-30-2024 Functional Status Up ad berhane [facility] 06-29-2024 Functional Status Standard Safet y ID band on, Call device within reach, Bed in low position, Wheels locked, Toileting device within reach, Visitor at bedside, Safety level maintained [facility] 03-20-2023 Functional status Ambulates;Up ad berhane [facility] Work Phone: 01-12-[address] [facility] Work Phone: 08-11-2022 Functional Status Home Living Ad ditional [...] 56 Activity-Specific Balance Confidence Scale (ABC): 53% [facility] 12-02-2021 Functional status Ambulates;Up a d berhane;Chair [facility] Work Phone: NEGATED: Highlighted row Functional performance Functional status health issues are not documented Disease [facility] Work Phone: Mental Status Date Assessment Result Facility 09-17-2024 Cognitive function Level Of Cons ciousness Awake;Alert;Appropriate ;Follows [facility] Work Phone: 06-30-2024 Mental Status Orientation Orie nted x [address] [facility] 06-29-2024 Mental Status [facility] 03-20-2023 Cognitive function Voice/Name [facility] Work Phone: 03-16-2023 Cognitive function Awake;Alert;A ppropriate ;Follows [facility] Work Phone: 01-12-2023 Cognitive function Voice/Name [facility] Work Phone: 01-10-2023 Cognitive function Voice/Name [facility] Work Phone: 07-04-2022 Cognitive function Voice/Name [facility] Work Phone: 07-04-2022 Cognitive function Patient [place] se[place] Person;Place;Time [facility] Work Phone: 03-24-2022 Cognitive function Voice/Name [facility] Work Phone: 12-02-2021 Cognitive function Voice/Name [facility] Work Phone: 11-30-2021 Cognitive function Voice/Name [facility] Work Phone: NEGATED: Highlighted row Cognitive function [Interpretation] Cognitive status health issues are not documented Disease [facility] Internal Medicine Work Phone: Clinical Notes 09-10-2020 to 11-25-2024 Note Date & Type Note Facility 11-25-2024 Progress note [facility] 10-27-2024 Radiology Diagnostic study note [facility] Imaging Services [address] [place], [place] [address] Abdomen/Pelvis W IV Cont ONLY MR#: [id number] Acct: [id number] Name: KRISHAN BURNHAM Rep #: [id number] : 1965 M 59 From: Dhiraj Beasley MD PCP: [facility] Status: REG ER Study:Abdomen/Pelvis W IV Cont ONLY Date of E xam: 10/27/24 Exam# [id number] Ordering Dr: Ramirez Navarro MD PROCEDURE: ABDOMEN/PELVIS W IV CONT ONLY 10/27/2024 REASON FOR EXAM: ABD PAIN AND HX OF DIVERTICULITIS TECHNIQUE: Procedure Code: CTABDPELIV Modality: CT Procedure: ABDOMEN/PELVIS W IV CONT ONLY Coronal and Sagittal reconstruction series were provided. CONTRAST: Isovue 370 VOLUME: 100 mL One or more dose reduction techniques were used (e.g., Automated exposure control, adjustment of the mA and/or kV according to patient size, use of iterative reconstruction technique. RADIATION DOSE SUMMARY: CTDlvol: 30 mGy DLP: 1162 mGycm COMPARISON: 09/17/2024 FINDINGS: Gallbladder surgically absent. Normal liver. Normal spleen. Normal pancreas. No renal mass or hydronephrosis. Normal adrenal glands. Postsurgical changes in the sigmoid colon. No free-fluid. No free air. No abscess. Currently no diverticulitis or appendicitis. CT/Abdomen/Pelvis W IV Cont ONLY IMPRESSION: Currently, there is no acute abnormality. The lung bases are clear Reading Location: [facility] CC: Dr. Javy Navarro MD; [facility] ~ Office Specialist: Signed [facility] 09-17-2024 Radiology Diagnostic study note [facility] Imaging Services [address] [place] [address] CTA Chst, Abd, Pel W and/or WO MR#: [id number] Acct: [id number] Name: KRISHAN BURNHAM Rep #: [id number] : 1965 M 59 From: Hero Gale MD PCP: [facility] Status: REG ER Study:CTA Chst, Abd, Pel W and/or WO Date of Exam: 09/17/24 Exam# [id number] Ordering Dr: Bib Beavers DO PROCEDURE: CTA CHST, ABD, PEL W AND/OR WO 09/17/2024 REASON FOR EXAM: PAIN TECHNIQUE: CTA CHST, ABD, PEL W AND/OR WO coronal and Sagittal reconstruction series were provided. One or more dose reduction techniques were used (e.g., Automated exposure control, adjustment of the mA and/or kV according to patient size, use of iterative reconstruction technique. CONTRAST: 100 cc Isovue 370 RADIATION DOSE SUMMARY: DLP: 1405 mGycm COMPARISON: None FINDINGS: CHEST: Lines and tubes: Surgical clips are noted in the right upper quadrant Mediastinum: There is no pathologic adenopathy by size criteria. Heart: Unremarkable Thoracic Aorta: The ascending aorta measures 3.3 cm. Distal arch = 3.0 cm, descending aorta = 2.5 cm. There is no aneurysm or dissection. The origin of the great vessels are normal in appearance. Minimal atherosclerotic calcifications are noted. Lungs and Airways: There is minimal atelectasis or scar at the right and leftlung base. There is a 0.7 cm solid pulmonary nodule in the right lung base, image 98/286. Pleura: There is no pneumothorax or effusion Bones: There is no acute bony abnormality ABDOMEN AND PELVIS: Liver: Unremarkable Gallbladder: Surgically absent Spleen: Unremarkable Pancreas: Unremarkable Adrenals: Unremarkable Kidneys: Unremarkable Bladder: Unremarkable Reproductive Organs: Unremarkable Bowel: Surgical clips are noted in the rectosigmoid junction. Gas and stool is noted in the colon. The small bowel loops are nondistended. The appendix is not demonstrated. Vasculature: Scattered atherosclerotic calcifications are noted. The celiac andsuperior mesenteric artery origins are widely patent. The right and left renal artery origins are widely patent and appears single. The inferior mesenteric artery origin is patent. The iliac bifurcation is normal. The internal and external iliacs are widely patent to the level of the common femoral. Peritoneum / Retroperitoneum: There is no free air or free fluid. Bones: There is no acute bony abnormality. CT/CTA Chst, Abd, Pel W and/or WO IMPRESSION: There is a 0.7 cm solid pulmonary nodule in the right lung base, image 98/286. this is unchanged compared to the May 26, [address] Continued follow-up is recommended. CTA of the chest abdomen and pelvis is within normal limits. Reading Location: [facility] CC: Dr. Bib Beavers DO; [facility] Office Specialist: Signed [facility] 06-30-2024 Hospital Discharge instructions Patient Education 06/29/2024 23:48:29 Diabetes with High Blood Sugar Diabetes with High Blood Sugar You have been treated for high blood sugar (hyperglycemia). This may be because of an infection or other illness. Or it may be from eating too many sweets or starches. Or it may be from not taking enough insulin or other diabetes medicine. Home care Check your blood sugar level at least 2 times a day. Write it down the results. Do this before breakfast and before dinner. If you take insulin, also write down your routine insulin dose. Note any other doses you needed based on your sliding scale or as advised by your healthcare provider. Do this for the next 3 to 5 days. High blood sugar may cause symptoms that you can learn to spot. These include: Peeing often Thirst Headache Breath that smells fruity Nausea or vomiting Belly pain If you have symptoms of high blood sugar, use a blood or urine test to find out what your blood sugar level is. If it is above your usual range, use the sliding scale regular insulin dose from your healthcare provider. Call your provider for advice if you were not given a range for your insulin dose. If your blood sugar is over 240 mg/dL, check your urine for ketones. Follow-up care Follow up with your healthcare provider, or as advised. You may need to meet with your provider in the next week. You will likely look at your blood sugar records together. You may need to change your dose of insulin or other diabetes medicine. When to seek medical advice Call your healthcare provider right away if these occur: Symptoms of high blood sugar that don't get better with the treatment your provider advised. This is especially true if you also have ketones in your urine. Blood sugar over 300 mg/dl. If you can t reach your healthcare provider, go to a hospital emergency room or urgent care center. Call 911 Call 911 if you have any of the following: Confusion Dizziness, lightheadedness, or loss of consciousness Shortness of breath Chest pain Weakness of an arm, leg, or one side of the face Sudden trouble with speech or vision 2472-1965 [employer]. [address] [place] [address]27. All rights reserved. This information is not intended as a substitute for professional medical care. Always follow your healthcare professional's instructions. Follow Up Care 06/29/2024 21:32:20 With:Go to emergency room if symptoms worsen Address:Unknown When:2-4 days With:VINOD ACUÑA CNP Address: [address] [place] [address] [phone] When:2-[address] [facility] 06-30-2024 Note Discharge Instructions Thank you for allowing [facility] to assist you with your healthcare needs. The following is important discharge information regarding your hospital visit. Diagnosis from Today's Visit Elevated blood sugar Fatigue Thrombocytopenia What to Do Next Instructions from Your Care Team Please follow-up with your PCP for further outpatient medical management and evaluation of your symptoms that have been ongoing for the past several weeks. If you experience any acute worsening symptoms or concerns you may return to the emergency department for more emergent evaluation. Please note your platelets were below the normal range and your PCP may want to repeat blood counts to further evaluate this. No qualifying data available. Post Acute Orders No qualifying data available. You Need to Schedule the Following Appointments Follow Up with Go to emergency room if symptoms worsen When:Within 2-4 days Follow Up with VINOD ACUÑA CNP When:Within 2-4 days Where:[address] [place] [address] [phone] Allergies NKA Medications Please ask your primary doctor or pharmacist before taking any other medication not listed, including over the counter drugs, herbal medications, vitamins and or supplements as they may interact with your home medications. Please take this list to your next doctor s visit. Bring all medications you take, including over the counter medications, herbals and other supplements with you to your doctor s visit. Patients and families are reminded to discard old lists and to update any records with all medication providers or retail pharmacies. Education Materials Diabetes with High Blood Sugar You have been treated for high blood sugar (hyperglycemia). This may be because of an infection or other illness. Or it may be from eating too many sweets or starches. Or it may be from not taking enough insulin or other diabetes medicine. Home care Check your blood sugar level at least 2 times a day. Write it down the results. Do this before breakfast and before dinner. If you take insulin, also write down your routine insulin dose. Note any other doses you needed based on your sliding scale or as advised by your healthcare provider. Do this for the next 3 to 5 days. High blood sugar may cause symptoms that you can learn to spot. These include: Peeing often Thirst Headache Breath that smells fruity Nausea or vomiting Belly pain If you have symptoms of high blood sugar, use a blood or urine test to find out what your blood sugar level is. If it is above your usual range, use the sliding scale regular insulin dose from your healthcare provider. Call your provider for advice if you were not given a range for your insulin dose. If your blood sugar is over 240 mg/dL, check your urine for ketones. Follow-up care Follow up with your healthcare provider, or as advised. You may need to meet with your provider in the next week. You will likely look at your blood sugar records together. You may need to change your dose of insulin or other diabetes medicine. When to seek medical advice Call your healthcare provider right away if these occur: Symptoms of high blood sugar that don't get better with the treatment your provider advised. This is especially true if you also have ketones in your urine. Blood sugar over 300 mg/dl. If you can t reach your healthcare provider, go to a hospital emergency room or urgent care center. Call 911 Call 911 if you have any of the following: Confusion Dizziness, lightheadedness, or loss of consciousness Shortness of breath Chest pain Weakness of an arm, leg, or one side of the face Sudden trouble with speech or vision [id number] [employer]. [address] [place] [address]. All rights reserved. This information is not intended as a substitute for professional medical care. Always follow your healthcare professional's instructions. Additional Information VACCINATE! IT SAVES LIVES! Members of the community who have not yet received the COVID-19 vaccine and would like to receive it can visit one of [facility] vaccine clinics. There are many vaccine clinic locations within the [facility]. For locations and available times, please visit [email or web address] . It is important to note that some COVID mobile vaccine clinics are held outdoors and may be canceled in rainy or stormy conditions. To learn more about pediatric vaccinations (ages 5-11), we invite you to visit the [facility] webpage. [email or web address] [email or web address] To learn more about the COVID-19 vaccine, we invite you to visit the CDC website for a list of frequently asked questions. https://www.cdc.gov/coronavirus/2019 -ncov/vaccines/faq.html [facility] Patient Portal Access Instructions: Stay connected with your healthcare team and access your personal medical information anytime with the [employer] Patient Portal. If you would like a full copy of your medical records please contact the [facility] Medical Records Department Monday through Monday between 8a.m. and 4:30p.m. Please follow the directions below to access the portal: 1.Access the email account you provided upon registration to the hospital.2.Look for an invitation email from [facility].3.Open the email and access the invitation link: Accept Invitation to [employer]4.Fill in the required robles to create your account. Sign into [email or web address] with your username and password that you created in the above steps to stay up to date. You can then view a summary of results, a summary of your visits, and the ability to download your summaries to your computer or send the information securely to a physician. Remember that your healthcare information is confidential, so carefully consider who you will allow to register on the [employer] Patient Portal for access to your information. You can also access the [employer] Patient Portal on the [employer]. Simply click on Health Records under Health Data and then click on the [employer]ji logo. HOW TO SAFELY DISPOSE OF PRESCRIPTION MEDICATIONS Please use one of the following methods to safely dispose of your unused medications. 1.Use a drug disposal kit: the drug disposal pouch allows you to safely discard your old and unused drugs. Ask your nurse to give you one when you are discharged.2.Visit a local take-back location: Many local pharmacies and police departments have programs that collect old and unwanted prescription drugs. Call your local pharmacy or go to http://NewsCrafted.Rormix/8U4Qf5h to find one close to you.3.Make use of household items: Use cat litter or old coffee grounds to dispose medications if other options are not available. Mix your drugs with these household products, seal them in an airtight container and throw it into the garbage. Call [facility]: [phone] to be sure your drugs can be disposed of in this way. Some medicines may require a different approach.4.Never flush your medications down the toilet. IF YOU HAVE BEEN PRESCRIBED AN OPIOIDS FOR PAIN If you have been prescribed an opioid (such as hydrocodone, oxycodone or morphine), it is critical to understand the possible side effects and risks of opioid pain medications. Even when taken as directed, opioids can have several side effects including: Tolerance, meaning you might need to take more of a medication for the same pain relief. Nausea, vomiting and/or constipation. Sleepiness, dizziness, dry mouth, confusion, depression or itching. Physical dependence, meaning you have withdrawal symptoms when a medication is stopped ? this can develop within a few days. KNOW YOUR RESPONSIBILITIES It is important to know exactly how much and how often to take the opioid pain medications you are prescribed. Never take opioids in higher amounts or more often than prescribed. Do not combine opioids with alcohol or other drugs that cause drowsiness, such as benzodiazepines, also known as benzos, including diazepam and alprazolam, muscle relaxants or sleep aids. Never sell or share prescription opioids. This is illegal. Store opioids in a secure place and out of reach of others (including children, family, friends and visitors). The last page(s) of this document has been signed and retained as a CHART COPY Signatures Patient Education Materials Diabetes with High Blood Sugar Medication Leaflets My discharge plan and instructions have been reviewed and explained to me and I,CHACHA KRISHAN understand my current condition and have read and understand these discharge instructions. I have received a written copy of the plan/instructions. If I have questions, I am aware that I should contact my doctor. Patient/Events Director Signature: ___ Date/Time: Relationship to Patient: _ Witness Name/Signature: Date/Time: [facility] 06-29-2024 Note Exam Date Time Procedure Performing Provider Status 06/29/24 10:[address] Head or Brain w/o Contrast EDWIN KHOURY MD; Auth (Verified) [id number] ORIGINAL EXAMINATION: CT OF THE HEAD WITHOUT CONTRAST 06/29/2024 10:42 pm TECHNIQUE: CT of the head was performed without the administration of intravenous contrast. Automated exposure control, iterative reconstruction, and/or weight based adjustment of the mA/kV was utilized to reduce the radiation dose to as low as reasonably achievable. COMPARISON: None. HISTORY: ORDERING SYSTEM PROVIDED HISTORY: Reason for Exam: weakness confusion. pt says he has a hx of stroke but no head symptoms currently confusion FINDINGS: BRAIN/VENTRICLES: There is no acute intracranial hemorrhage, mass effect or midline shift. No abnormal extra-axial fluid collection. The olguin-white differentiation is maintained without evidence of an acute infarct. There is no evidence of hydrocephalus. Atherosclerosis of the bilateral cavernous carotid segments. ORBITS: The visualized portion of the orbits demonstrate no acute abnormality. SINUSES: Partially visualized complete opacification of the bilateral maxillary sinuses. The remaining visualized paranasal sinuses and mastoid air cells demonstrate no acute abnormality. SOFT TISSUES/SKULL: No acute abnormality of the visualized skull or soft tissues. IMPRESSION: No acute intracranial abnormality. Complete opacification of the partially visualized maxillary sinuses compatible with sinusitis in the appropriate clinical context. I have personally reviewed the images of this examination and agree with the resident's findings and interpretation. Interpreted by: Tay Khoury Preliminary Report By: Eva Gutierrez Electronically signed By Tay Khoury Dictated Date: 06/29/2024 10:49:34 PM Prelim Date: 06/29/2024 10:52:30 PM Sign Date: 06/29/2024 10:57:23 PM Ordering Provider: CARMELA CORRALES [facility]05-03-2025 Note* Exam Date Time Procedure Performing Provider Status 06/29/24 10:39 PM XR Chest 1 View TAY KHOURY MD; Macey h (Verified) [id number] ORIGINAL EXAMINATION: ONE XRAY VIEW OF THE CHEST 06/29/2024 10:40 pm COMPARISON: 12/09/2017 HISTORY: ORDERING SYSTEM PROVIDED HISTORY: Reason for Exam: weakness FINDINGS: Cardiomediastinal silhouette is mildly enlarged which could be secondary to patient inspiratory effort and technique. Mild blunting of the left costophrenic angle is favored to be secondary to superimposed soft tissue structures and epicardial fat pad. No focal consolidation, large pleural effusion, pulmonary edema or pneumothorax. No acute osseous findings. IMPRESSION: No acute cardiopulmonary findings. I have personally reviewed the images of this examination and agree with the resident's findings and interpretation. Interpreted by: Tay Khoury Preliminary Report By: Eva Gutierrez Electronically signed By Tay Khoury Dictated Date: 06/29/2024 11:00:14 PM Prelim Date: 06/29/2024 11:02:01 PM Sign Date: 06/29/2024 11:06:58 PM Ordering Provider: CARMELA CORRALES [facility]05-03-2025 Note* Exam Date Time Procedure Performing Provider Status 06/29/24 9:56 PM EKG [ED AOH] - CV CARMELA CORRALES DO; Aut h (Verified) ECG Final Report Sinus rhythm Borderline left axis deviation RSR' in V1 or V2, right VCD or RVH Baseline wander in lead(s) V3 Electronic Signature: CARMELA CORRALES DO 06/29/2024 22:00:54 [facility] [id number] NoteHNO ID: [id number] Author: TILA REYES APRN.SNIPPER Service: ? Author Type: Nurse Practitioner Type: Progress Notes Filed: 06/01/2024 10:15 Note Text: [facility] Subjective Krishan Burnham is a 58 year old male. Patient presents with: Viral Infections: Entered by patient Sinus Problem: Sinus congestion x1 day Derm Problem: Sore on inside of R nostril x1 week, possible Staph Patient came in with complaints of sinus pressure and congestion for a week and a half. Patient also thinks he has staph inside his nose. Patient says he gets it quite often. Patient says it sore. Patient denies any other symptoms at this time. The history is provided by the patient. No clinical laboratory technologist was used. Sinus Problem Associated symptoms include congestion. Review of Systems Constitutional: Negative. HENT: Positive for congestion and sinus pressure. Objective BP 143/77 Pulse 64 Temp 36.1 ?C (97 ?F) Resp 18 Wt 106 kg (233 lb 11 oz) SpO2 99% Physical Exam Constitutional: Appearance: Normal appearance. HENT: Right Ear: Tympanic membrane, ear canal and external ear normal. Left Ear: Tympanic membrane, ear canal and external ear normal. Nose: Nasal tenderness present. Right Turbinates: Enlarged and swollen. Left Turbinates: Swollen. Not enlarged. Right Sinus: Maxillary sinus tenderness present. Left Sinus: Maxillary sinus tenderness present. Mouth/Throat: Mouth: Mucous membranes are moist. Pharynx: Oropharynx is clear. Eyes: Pupils: Pupils are equal, round, and reactive to light. Cardiovascular: Rate and Rhythm: Normal rate and regular rhythm. Heart sounds: Normal heart sounds. Pulmonary: Effort: Pulmonary effort is normal. Breath sounds: Normal breath sounds. Neurological: Mental Status: He is alert. No past medical history on file. No past surgical history on file. ALLERGIES Patient has no known allergies. MEDICATIONS doxycycline (VIBRA-TABS) 100 mg tablet Take 1 tablet by mouth two times a day for 7 days. mupirocin (BACTROBAN) 2 % ointment Apply to affected area three times a day for 10 days. No family history on file. Social History Tobacco Use Smoking status: Never Smokeless tobacco: Never {ASSESSMENT/PLAN: 1. Rhinosinusitis - ICD9: 473.9, ICD10: J32.9 - Will begin treatment with as per antibiotic as written, see orders - Supportive care with plenty of fluids, rest, and analgesia prn. - DOXYCYCLINE HYCLATE 100 MG TABLET - MUPIROCIN 2 % TOPICAL OINTMENT Patient agreeable to care plan. Tila Reyes APRN.CARLOS A History and Record Review External record(s) reviewed: no prior records. Disposition [facility] was [facility]. [facility] of Present illness Narrative* Tila Reyes APRN.CARLOS A - 06/01/2024 10:10 AM EDT [facility] Subjective Krishan Burnham is a 58 year old male. Patient presents with: Viral Infections: Entered by patient Sinus Problem: Sinus congestion x1 day Derm Problem: Sore on inside of R nostril x1 week, possible Staph Patient came in with complaints of sinus pressure and congestion for a week and a half. Patient also thinks he has staph inside his nose. Patient says he gets it quite often. Patient says it sore. Patient denies any other symptoms at this time. The history is provided by the patient. No clinical laboratory technologist was used. Sinus Problem Associated symptoms include congestion. Review of Systems Constitutional: Negative. HENT: Positive for congestion and sinus pressure. Objective BP 143/77 Pulse 64 Temp 36.1 C (97 F) Resp 18 Wt 106 kg (233 lb 11 oz) SpO2 99% Physical Exam Constitutional: Appearance: Normal appearance. HENT: Right Ear: Tympanic membrane, ear canal and external ear normal. Left Ear: Tympanic membrane, ear canal and external ear normal. Nose: Nasal tenderness present. Right Turbinates: Enlarged and swollen. Left Turbinates: Swollen. Not enlarged. Right Sinus: Maxillary sinus tenderness present. Left Sinus: Maxillary sinus tenderness present. Mouth/Throat: Mouth: Mucous membranes are moist. Pharynx: Oropharynx is clear. Eyes: Pupils: Pupils are equal, round, and reactive to light. Cardiovascular: Rate and Rhythm: Normal rate and regular rhythm. Heart sounds: Normal heart sounds. Pulmonary: Effort: Pulmonary effort is normal. Breath sounds: Normal breath sounds. Neurological: Mental Status: He is alert. No past medical history on file. No past surgical history on file. ALLERGIES Patient has no known allergies. MEDICATIONS doxycycline (VIBRA-TABS) 100 mg tablet Take 1 tablet by mouth two times a day for 7 days. mupirocin (BACTROBAN) 2 % ointment Apply to affected area three times a day for 10 days. No family history on file. Social History Tobacco Use Smoking status: Never Smokeless tobacco: Never {ASSESSMENT/PLAN: 1. Rhinosinusitis - ICD9: 473.9, ICD10: J32.9 - Will begin treatment with as per antibiotic as written, see orders - Supportive care with plenty of fluids, rest, and analgesia prn. - DOXYCYCLINE HYCLATE 100 MG TABLET - MUPIROCIN 2 % TOPICAL OINTMENT Patient agreeable to care plan. Tlia Reyes APRN.CARLOS A History and Record Review External record(s) reviewed: no prior records. Disposition The patient was discharged. Procedures [facility] Discharge summary Author Xavi Orlando [facility] March 16, 2023 8:24pm Note Date/Time March 16, 2023 5 :28pm [facility] Medical Records Department [address] [place] [id number] Emergency Department Summary 03/16/23 MR#: [id number] Acct: [id number] Name: KRISHAN BURNHAM Rep #:[id number] : 1965 57 From: Xavi Orlando DO PCP: [facility] Status:REG ER Location: ED HPI History of Present Illness Chief Complaint: Chest Pain Narrative Narrative: 57-year-old male with history of diabetes, hypertension, hyperlipidemia, stroke presenting with chest pain. Patient states it started about 4 days ago. It wasretrosternal chest pressure initially and some lightheadedness. This is progressed and he is having increasing chest pressure. Patient states that now radiates up into his neck into his left arm. It is worse with exertion. He denies any trauma. He still feeling lightheaded and dizzy when he gets up and ambulates. Patient states that he has a history of cardiac cath 15 years ago which showed some mild blockages. Patient states at that time he was put on diltiazem which is for his chest pain. He had stress test since then which werenegative. Patient states that he has not had a repeat catheterization. Patientstates that initially when his symptoms started 4 days ago he thought he was coming down with a chest cold but now he still feels like he is getting weaker and he does not have a cough or shortness of breath or fevers or chills. Patient has not DVT/PE risk factors. Patient notably had a TIA recently and is on Plavix. No black or bloody stools. Patient does have history of GERD and micheal Carafate, Protonix 80 mg twice daily, Pepcid. [facility] Medical History (Updated 03/16/23 @ 19:[address] Jake Franklin, DO) Abdominal pain Acute cerebrovascular accident (CVA) due to ischemia Acute stroke due to ischemia Borderline type 2 diabetes mellitus Chest pain Constipation COVID-19 vaccine series completed CPAP (continuous positive airway pressure) dependence Depression with anxiety Diabetes Diverticulitis Former smoker GERD (gastroesophageal reflux disease) History of hiatal hernia HLD (hyperlipidemia) HTN (hypertension) Hyperlipidemia Hypertension Lupus Parkinsons disease Sleep apnea Type 2 diabetes mellitus Wears glasses Home Medications melatonin 3 mg tablet 9 mg PO QHS SLEEP 05/12/19 [History Last Taken 03/15/23] trazodone 100 mg tablet 200 mg PO QHS SLEEP 05/12/19 [History Last Taken 03/16/23] famotidine 20 mg tablet 20 mg PO BID GERD 02/17/20 [History Last Taken 03/16/23] clonazepam 0.5 mg tablet 0.5 mg PO QHS SLEEP 02/16/21 [History Last Taken 03/15/23] levodopa 42 mg capsule with inhalation device (Inbrija) 84 mg inhalation 0700,1100,1500 PARKINSONS 02/16/21 [History Last Taken 03/16/23] propranolol 10 mg tablet 10 mg PO TID HYPERTENSION 02/16/21 [History Last Taken 03/16/23] carbidopa ER 36.25 mg-levodopa 145 mg capsule,extended release (Rytary) 4 cap PO4X/DAY Parkinsons 11/30/21 [History Last Taken 03/16/23] cholecalciferol (vitamin D3) 50 mcg (2,000 unit) tablet 50 mcg PO DAILY SUPPLEMENT 11/30/21 [History Last Taken 03/16/23] diltiazem HCl 60 mg tablet 60 mg PO BID HYPERTENSION/AGINA 11/30/21 [History Last Taken 03/16/23] empagliflozin 25 mg tablet (Jardiance) 12.5 mg PO DAILY DIABETES 11/30/21 [History Last Taken 03/16/23] omega-3 fatty acids 1,000 mg PO DAILY SUPPLEMENT 11/30/21 [History Last Taken 03/16/23] pantoprazole 40 mg tablet,delayed release (Protonix) 80 mg PO BID GERD 11/30/21 [History Last Taken 03/16/23] polyethylene glycol 3350 17 gram oral powder packet 17 g PO QHS PRN HOLNNSPOVAKH47/04/22 [History Last Taken 03/15/23] prazosin 5 mg capsule 10 mg PO QHS HYPERTENSION 11/30/21 [History Last Taken 03/15/23] rosuvastatin 20 mg tablet 20 mg PO QHS HIGH CHOLESTEROL 11/30/21 [History Last Taken 03/16/23] sucralfate 1 gram tablet (Carafate) 1 g PO Q6H STOMACH ULCERS #28 tabs 03/24/22 [Rx Last Taken 01/10/23] duloxetine 60 mg capsule,delayed release 120 mg PO DAILY DEPRESSION 03/29/22 [History Last Taken 03/16/23] aspirin 81 mg tablet,delayed release 81 mg PO DAILY HEART HEALTH #30 tabs 01/12/23 [Rx Last Taken Unknown] clopidogrel 75 mg tablet 75 mg PO DAILY BLOOD THINNER #21 tabs 01/12/23 [Rx Last Taken 03/16/23] clonazepam 0.5 mg tablet 0.5 mg PO DAILY PRN PANIC ATTACKS 03/16/23 [History Last Taken 03/14/23] diclofenac sodium 1 % topical gel 4 g topical BID PRN OSTEOARTHRITIS 03/16/23 [History Last Taken Unknown] gabapentin 300 mg capsule 300 mg PO QHS RESTLESS LEG SYNDROME 03/16/23 [History Last Taken 03/15/23] hydrochlorothiazide 12.5 mg tablet 12.5 mg PO QAM BLOOD PRESSURE 03/16/23 [History Last Taken 03/16/23] lidocaine 5 % topical patch 1 patch topical DAILY PRN SEVERE PAIN 03/16/23 [History Last Taken Unknown] sildenafil 100 mg tablet 100 mg PO DAILY PRN sexual activity 03/16/23 [History Last Taken Unknown] sodium chloride-aloe vera nasal gel (Llano Saline nasal gel) 1 applic intranasal DAILY NASAL DRYNESS 03/16/23 [History Last Taken 03/16/23] sucralfate 100 mg/mL oral suspension (Carafate) 1 g PO 4X/DAY ULCERS 03/16/23 [History Last Taken 03/16/23] Allergy/AdvReac Type Severity Reaction Status Date / Time No Known Allergies Allergy Verified 03/16/23 16:42 Family History Mother Heart disease Hypertension High cholesterol Cancer skin cancer Father Heart disease High cholesterol Hypertension CVA (cerebral vascular accident) Surgical History History of appendectomy History of colectomy (~02/2020) History of laparoscopic cholecystectomy S/P arthroscopic surgery of left knee Social History household members: spouse number of children: 5 current occupational status: unemployed Smoking Status: Former smoker how long ago did patient quit smoking: Quit ~ 15 years prior, smoked socially only. alcohol intake: never substance use type: does not use ROS ROS ED Constitutional Constitutional ED: Denies chills, fever(s) or sweats Eyes Eyes: Denies blurry vision or change in vision ENT ENT ED: Denies ear pain or sore throat Cardiovascular Cardiovascular: Reports as per HPI and chest pain; Denies racing heartbeat Respiratory/Chest Respiratory/Chest: Reports dyspnea; Denies cough or sputum Gastrointestinal Gastrointestinal: Reports nausea; Denies abdominal pain, constipation, diarrhea or vomiting Genitourinary Genitourinary ED: Denies dysuria, hematuria or urinary frequency Musculoskeletal Musculoskeletal: Denies arthralgias, myalgias or neck pain Integumentary Denies abscess, Abrasions or rash Neurologic Neurologic: Denies headache(s), paresthesias or weakness Psychiatric Psychiatric: Denies anxiety, depression, suicidal ideation or suicidal thoughts Endocrine Endocrinology: Denies polydipsia or polyuria EXAM Physical Exam Const Vital Signs: 03/16/23 16:42 03/16/23 17:09 03/16/23 17:09 Temperature 96.4 F L Temperature Source Temporal Pulse Rate 93 Respiratory Rate 18 Respiratory Effort Normal Non-Labored Blood Pressure 142/75 H Blood Pressure Mean 97 Pulse Ox 98 99 Oxygen Delivery Method Room Air Room Air 03/16/23 17:35 03/16/23 18:00 03/16/23 19:16 Temperature Temperature Source Pulse Rate 75 73 73 Respiratory Rate 16 15 Respiratory Effort Blood Pressure 131/80 H 113/76 120/74 Blood Pressure Mean 88 89 Pulse Ox 97 Oxygen Delivery Method Room Air 03/16/23 19:40 03/16/23 20:18 Temperature Temperature Source Pulse Rate 66 63 Respiratory Rate 16 16 Respiratory Effort Blood Pressure 138/71 H 131/82 H Blood Pressure Mean 93 98 Pulse Ox 97 98 Oxygen Delivery Method Room Air Positive well nourished General Appearance ED: NAD; Negative for pallor HEENT Reports moist mucous membranes normocephalic and atraumatic Eyes PERRL and EOMs intact bilaterally Neck no lymphadenopathy Chest Wall inspection of chest normal Resp normal respiratory effort and clear to auscultation bilaterally Auscultation: Negative for rales, rhonchi or wheezes Cardio regular rate and regular rhythm GI normal to inspection, nondistended, normoactive bowel sounds Neuro oriented x3 and CN's II-XII intact bilaterally Sensorium / Orientation: awake and alert Psych mental status grossly normal Skin no rashes or lesions noted General Skin Exam: Negative for jaundice or pallor Heart Score History: Slightly/Non-Suspicious ECG: Nonspecific Repolarization Age: >45 - <65 years Risk Factors: >/= 3 Risk Factors or History of CAD Score: 4 MDM MDM MDM Narrative Medical decision making narrative: Patient presented with chest pain for 4 days. He states been constant but waxesand wanes in severity. It is currently been radiated up his neck into his left shoulder. HEART score 4. Differential includes ACS, CHF, pneumonia, GERD, gastritis, dehydration, uremia, electrolyte normalities. Considered pneumothorax, the patient has equal bilateral breath sounds and chest wall rise. Also considered PE but the patient does PERC negative. CBC will be obtained toassess white blood cell count, hemoglobin, platelets. BMP to assess renal function, electrolytes, glucose. High-sensitivity troponin to assess for ischemia. Chest x-ray rule out pneumonia or CHF. BNP to assess for CHF. Patient will be given nitroglycerin to see if this helps with his chest pain. CBC, BMP, high-sensitivity troponin all within normal limits. BMP 5.2. Delta troponin is 10 and initial troponin 8. There is no significant change. At thispoint patient wishes to be admitted out of concern for cardiac etiology. Discussed with hospitalist. Impression: 1. Chest pain Lab Data Labs: Laboratory Results - last 24 hr 03/16/23 03/16/23 03/16/23 17:10 17:28 19:35 WBC 6.5 RBC 5.12 Hgb 15.2 Hct 44.0 MCV 85.9 MCH 29.7 MCHC 34.5 RDW Std Deviation 38.6 RDW Coeff of Gail 12.4 Plt Count 147 L MPV 10.1 Immature Gran % (Auto) 0.300 Neut % (Auto) 63.8 Lymph % (Auto) 23.2 Logan % (Auto) 9.7 Eos % (Auto) 2.5 Baso % (Auto) 0.5 Absolute Neuts (auto) 4.2 Absolute Lymphs (auto) 1.51 Nucleated RBC % 0 Sodium 138 Potassium 3.5 Chloride 106 Carbon Dioxide 28.0 Anion Gap 4 L BUN 23 H Creatinine 1.25 Estim Creat Clear Calc 81.49 Est GFR (MDRD) Af Amer 76 Est GFR (MDRD) Non-Af 63 BUN/Creatinine Ratio 18.4 Glucose 173 H Calcium 9.3 Troponin I High Sens 8 10 B-Natriuretic Peptide 5.2 Radiography Diagnostic Testing: Clinical Impression(s) from Imaging Studies Chest X-Ray 03/16/23 17:24 IMPRESSION: Normal x-ray examination of the chest. Electronically Signed: Marlon Alex MD at 17:47 EST , Discharge Plan Triage Chief Complaint: Chest Pain ED Provider: Xavi Orlando Dx/Rx/DC Orders Prescriptions: No Action Inbrija 42 mg capsule, w/inhalation device 84 mg inhalation 0700,1100,1500 clonazepam 0.5 mg tablet 0.5 mg PO QHS propranolol 10 mg tablet 10 mg PO TID duloxetine 60 mg capsule,delayed release(DR/EC) 120 mg PO DAILY melatonin 3 MG tablet 9 mg PO QHS trazodone 100 MG tablet 200 mg PO QHS famotidine 20 MG tablet 20 mg PO BID polyethylene glycol 3350 17 gram Powder In Packet 17 g PO QHS PRN (Reason: CONSTIPATION) prazosin 5 mg Capsule 10 mg PO QHS diltiazem HCl 60 mg Tablet 60 mg PO BID omega-3 fatty acids Capsule 1,000 mg PO DAILY rosuvastatin 20 mg Tablet 20 mg PO QHS cholecalciferol (vitamin D3) 50 mcg (2,000 unit) Tablet 50 mcg PO DAILY Jardiance 25 mg Tablet 12.5 mg PO DAILY Rytary 36.25-145 mg Capsule, Extended Release 4 cap PO 4X/DAY Rx Instructions: divide evenly over waking hours pantoprazole [Protonix] 40 mg tablet,delayed release (DR/EC) 80 mg PO BID sucralfate [Carafate] 1 gram tablet 1 g PO Q6H Qty: 28 0RF aspirin 81 mg tablet,delayed release (DR/EC) 81 mg PO DAILY Qty: 30 0RF clopidogrel 75 mg Tablet 75 mg PO DAILY Qty: 21 0RF clonazepam 0.5 mg tablet 0.5 mg PO DAILY PRN (Reason: PANIC ATTACKS) diclofenac sodium 1 % gel 4 g topical BID PRN (Reason: OSTEOARTHRITIS) gabapentin 300 mg capsule 300 mg PO QHS sildenafil 100 mg tablet 100 mg PO DAILY PRN (Reason: sexual activity) lidocaine 5 % Adhesive Patch,Medicated 1 patch topical DAILY PRN (Reason: SEVERE PAIN) Protocol: *Topical Application Instructions APPLICATION INSTRUCTIONS: right forearm. Rx Instructions: PATCH SHOULDNT BE LEFT ON SKIN FOR MORE THAN 12 HOURS hydrochlorothiazide 12.5 mg tablet 12.5 mg PO QAM Rx Instructions: take with food sucralfate [Carafate] 100 mg/mL suspension 1 g PO 4X/DAY Llano Saline Gel 1 applic intranasal DAILY Primary Care Provider: [facility] Referrals: [facility] [Primary Care Provider] - Capacity Legal Events Director Reflex Medical hold order details:: IF a medical hold is selected below, a suggested order for a MEDICAL HOLD will reflex upon signing the document. Next of kin: [place] law dictates a PRIORITY LIST for identifying legal decision-maker/legal next of kin in the following order (LNOK): 1st: The patient?s legal guardian, if any 2nd: The patient's spouse (if status is questionable, consult Risk Management) 3rd: The patient?s adult child(marco antonio) (majority, if multiple children) 4th: The patient?s parents 5th: The patient?s adult siblings (majority, if multiple children siblings) What to do if you have Problems For any increased pain, shortness of breath, bleeding, nausea or vomiting, chestpain, or any unexpected problems, contact your Primary Care Provider. Call [employer] [facility] ([phone]) or report to the closest Emergency Room. Call 911 if necessary. 03/16/232023 <Electronically signed by Xavi Orlando DO> Cosigner Signature (if applicable): CC: [facility] ~ Signed [facility] Work Phone: [phone] 100-404101-01-2024 Hospital Discharge instructionsAdditional Instructions Your cardiac workup negative. Review of records had a normal heart cath February 2023. CT chest abdomen pelvis notes a normal aorta. You have a stable pulmonary nodule right lower lobe. Your symptoms improved with the GI cocktail. Take your home medications. You are followed by Dr. Chavez for your endoscopies with with your history of partial colectomy for your diverticulitis. Follow-up for him for reevaluation. Monitor for any black or bloody stools. [facility] Work Phone: [phone] 765-922311-14-2023 Discharge summary Author Flavio Concepcion [facility] January 10, 2023 6:59pm Note Date/Time January 10, 2023 5:45pm [facility] Medical Records Department [address] [place] [address] Emergency Department Summary 01/10/23 MR#: [id number] Acct: [id number] Name: CHACHAKRISHAN JOHANNY Rep #:[id number] : 1965 57 From: Flavio Concepcion MD PCP: [facility] Status:REG ER Location: ED HPI History of Present Illness Chief Complaint: Stroke Alert Detail of Chief Complaint: Presents with strokelike symptoms Informant: patient and spouse/S.O. Onset/Context/Timing Onset: Today (1644) Context: Sudden Onset Timing: Continuous Quality and Location: Positive for Right Facial Droop, Right Arm Parasthesia, Right Leg Parasthesia, Right Arm Weakness and Right Leg Weakness Onset: 1644 Current Severity: Mild Maximum Severity: Mild Worsened by: Nothing Relieved by: Nothing Associated Symptoms Associated Symptoms: Positive for Chest Pain; Negative for Headache, Nausea or Vomiting Narrative Narrative: Patient is a 57-year-old gentleman with past history of hypertension, hyperlipidemia, type 2 diabetes, GERD, Parkinson disease who presents with strokelike symptoms that started at 1645. He has altered sensation and weaknesson the right side. noted slurring of his words. He denies visual symptoms. He denies problems with his balance. He denies prior history of TIA or CVA. He has had intermittent chest pain since Monday. He denies dyspnea or dyspnea on exertion. Nu[place] orthopnea or PND. He has no contraindication anticoagulation. He denies black or maroon-colored stool. Review of prior records indicates the patient has a prior stroke. Will clarify with . Prior similar symptoms: No Recent [facility] [facility] Medical History Abdominal pain Acute cerebrovascular accident (CVA) due to ischemia Borderline type 2 diabetes mellitus Constipation COVID-19 vaccine series completed CPAP (continuous positive airway pressure) dependence Depression with anxiety Diabetes Diverticulitis Former smoker GERD (gastroesophageal reflux disease) History of hiatal hernia Hyperlipidemia Hypertension Lupus Sleep apnea Type 2 diabetes mellitus Wears glasses Home Medications melatonin 3 mg tablet 9 mg PO QHS SLEEP 05/12/19 [History Last Taken 11/29/21] trazodone 100 mg tablet 200 mg PO QHS SLEEP 05/12/19 [History Last Taken 11/29/21] famotidine 20 mg tablet 20 mg PO BID GERD 02/17/20 [History Last Taken 07/04/22 06:00] carbidopa ER 50 mg-levodopa 200 mg tablet,extended release 1 tab PO QHS [place] 02/16/21 [History Last Taken 11/29/21] clonazepam 0.5 mg tablet 0.5 mg PO QHS 02/16/21 [History Last Taken 11/30/21] hydrochlorothiazide 12.5 mg tablet 12.5 mg PO QAM #90 tabs 02/16/21 [Rx Last Taken 11/30/21] levodopa 42 mg capsule with inhalation device (Inbrija) 84 mg inhalation TID 02/16/21 [History Last Taken 11/30/21] propranolol 10 mg tablet 10 mg PO TID 02/16/21 [History Last Taken 11/30/21] carbidopa ER 36.25 mg-levodopa 145 mg capsule,extended release (Rytary) 1 cap PO4X/DAY 11/30/21 [History Last Taken Unknown] cholecalciferol (vitamin D3) 50 mcg (2,000 unit) tablet 50 mcg PO DAILY supplement 11/30/21 [History Last Taken 11/30/21] diltiazem HCl 60 mg tablet 60 mg PO BID 11/30/21 [History Last Taken 11/30/21] empagliflozin 25 mg tablet (Jardiance) 12.5 mg PO DAILY 11/30/21 [History Last Taken 11/30/21] omega-3 fatty acids 1,000 mg PO DAILY 11/30/21 [History Last Taken 11/30/21] pantoprazole 40 mg tablet,delayed release (Protonix) 80 mg PO BID gerd 11/30/21 [History Last Taken 07/04/22 06:00] polyethylene glycol 3350 17 gram oral powder packet 17 g PO QHS 11/30/21 [History Last Taken 11/29/21] prazosin 5 mg capsule 10 mg PO QHS 11/30/21 [History Last Taken 11/29/21] rosuvastatin 20 mg tablet 20 mg PO QHS 11/30/21 [History Last Taken 11/29/21] testosterone cypionate 200 mg/mL intramuscular oil 200 mg IM Q14D 11/30/21 [History Last Taken 1 Week Ago ~11/23/21] clopidogrel 75 mg tablet 75 mg PO DAILY #21 tabs 12/02/21 [Rx Last Taken Unknown] ondansetron 4 mg disintegrating tablet 4 mg PO Q8H PRN nausea and vomiting #30 tabs 01/13/22 [Rx Last Taken Unknown] dicyclomine 20 mg tablet 20 mg PO BID #20 tabs 01/14/22 [Rx Last Taken Unknown] sucralfate 1 gram tablet (Carafate) 1 g PO Q6H #28 tabs 03/24/22 [Rx Last Taken Unknown] duloxetine 60 mg capsule,delayed release 60 mg PO DAILY 03/29/22 [History Last Taken Unknown] Allergy/AdvReac Type Severity Reaction Status Date / Time No Known Allergies Allergy Verified 01/10/23 17:36 Family History Mother Heart disease Hypertension High cholesterol Cancer skin cancer Father Heart disease High cholesterol Hypertension CVA (cerebral vascular accident) Surgical History History of appendectomy History of colectomy (~02/2020) History of laparoscopic cholecystectomy S/P arthroscopic surgery of left knee Social History household members: spouse number of children: 5 current occupational status: unemployed Smoking Status: Former smoker how long ago did patient quit smoking: Quit ~ 15 years prior, smoked socially only. alcohol intake: never substance use type: does not use ROS ROS ED Constitutional Constitutional ED: Denies chills, fever(s), subjective, sweats or weakness Eyes Eyes: Denies blurry vision, change in vision or diplopia ENT ENT ED: Denies ear pain, rhinorrhea or sore throat Cardiovascular Cardiovascular: Reports chest pain; Denies palpitations, paroxysmal nocturnal dyspnea or racing heartbeat Respiratory/Chest Respiratory/Chest: Denies cough, dyspnea, dyspnea on exertion or paroxysmal nocturnal dyspnea Gastrointestinal Gastrointestinal: Denies abdominal pain, melena, nausea or vomiting Genitourinary Genitourinary ED: Denies dysuria, hematuria or urinary frequency Musculoskeletal Musculoskeletal: Denies arthralgias, back pain, myalgias or neck pain Integumentary Denies abscess or rash Neurologic Neurologic: Reports paresthesias and weakness; Denies headache(s) Psychiatric Psychiatric: Reports depression; Denies anxiety Endocrine Endocrinology: Denies polydipsia, polyphagia or polyuria Hematologic/Lymphatic Hematologic/Lymphatic: Denies easy bleeding or easy bruising EXAM Physical Exam Const Vital Signs: 01/10/23 17:33 01/10/23 17:42 01/10/23 17:50 Temperature 98.6 F Temperature Source Temporal Pulse Rate 98 Respiratory Rate 14 14 Blood Pressure 156/81 H 165/87 H Blood Pressure Mean 106 113 Blood Pressure Source Blood Pressure Position Blood Pressure Location Pulse Ox 100 Oxygen Delivery Method Room Air Room Air 01/10/23 18:00 01/10/23 18:23 01/10/23 18:04 Temperature Temperature Source Pulse Rate 64 Respiratory Rate 15 Blood Pressure 165/75 H 142/71 H 148/72 H Blood Pressure Mean 105 97 Blood Pressure Source Blood Pressure Position Blood Pressure Location Pulse Ox 95 Oxygen Delivery Method Room Air 01/10/23 18:27 Temperature Temperature Source Pulse Rate 70 Respiratory Rate 15 Blood Pressure 142/71 H Blood Pressure Mean 94 Blood Pressure Source Monitor Blood Pressure Position Sitting Blood Pressure Location Left Arm Pulse Ox 95 Oxygen Delivery Method Room Air Positive well nourished, well developed and obese Constitutional Narrative: She has a flat affect question masked face which may be due to Parkinson's and reason he does not appear alert. He is awake. He does not answer questions quickly but he does answer them correctly. General Appearance ED: well developed and NAD Nutritional Appearance: obese HEENT Reports moist mucous membranes atraumatic Eyes PERRL and EOMs intact bilaterally Eyes Narrative: There is no nystagmus. There is no visual field cut. General Eye ED: Negative for pale conjunctiva or scleral icterus Neck no lymphadenopathy, supple and no JVD Chest Wall inspection of chest normal and palpation of chest normal Resp normal respiratory effort and clear to auscultation bilaterally Cardio no murmurs Rate: regular rate Rhythm: regular rhythm Heart Sounds: S1 normal and S2 normal GI normal to inspection, nondistended, normoactive bowel sounds, soft to palpation,non-tender and non-distended Back/Spine no CVA tenderness Extremity normal to inspection General Extremety ED: Negative for deformity, edema or tenderness General Extremity: Negative for deformity or edema Neuro oriented x3, No CN's II-XII intact bilaterally and No no sensory deficits noted Kassidy Coma Scale: document GCS findings Spontaneous Obeys Commands Oriented 15 Sensorium / Orientation: Negative for alert Speech: Negative for speech normal Motor Exam: Negative for strength 5/5 throughout Psych Mood & Affect: depressed Skin General Skin Exam: Negative for jaundice Lesions: no lesions Rashes: no rashes NIHSS NIHSS Initial: 1a Level of Consciousness: 1 1b LOC Questions (Score 2 if aphasic/stupor): 0 1c LOC Commands (Only score 1st attempt): 0 2 Best Gaze (If aphasic, use reflexive mvmts.): 0 3 Visual: 0 4 Facial Palsy: 1 5 Motor Arm Right (UN = amputation/fusion): 1 5 Motor Arm Left: 0 6 Motor Leg Right: 1 6 Motor Leg Left: 0 7 Limb ataxia (Only + if out of proportion): 0 8 Sensory (Aphasia/stupor=0 or 1, coma=2): 1 9 Best Language: 0 10 Dysarthria (mute, coma=2, intubated=UN): 1 11 Extinction and Inattention (only scored if +): 0 Total Score: 6 MDM MDM MDM Narrative Medical decision making narrative: Patient has a NIH of 6. Patient is a candidate for thrombolytics. He was takenimmediately to the CT suite. Will obtain CT of the head as well as CTA of the head and neck. PGT was 167. Because of his reported chest pain and multiple risk factors for coronary disease EKG was obtained as well as troponin since he had symptoms since Monday. Pharmacy was contacted to alert them that patient naveen candidate for thrombolytics. History & Record Review Discussion w/independent historian: Patient and Significant other Lab Data Labs: Laboratory Results - last 24 hr 01/10/23 01/10/23 17:35 17:50 WBC 6.7 RBC 4.71 Hgb 13.8 Hct 40.0 MCV 84.9 MCH 29.3 MCHC 34.5 RDW Std Deviation 37.9 RDW Coeff of Gail 12.3 Plt Count 127 L MPV 9.7 Immature Gran % (Auto) 0.100 Neut % (Auto) 64.2 Lymph % (Auto) 23.5 Logan % (Auto) 10.0 Eos % (Auto) 1.8 Baso % (Auto) 0.4 Absolute Neuts (auto) 4.3 Absolute Lymphs (auto) 1.57 Nucleated RBC % 0 PT 13.9 INR 1.1 APTT 28.1 Sodium 138 Potassium 3.2 L Chloride 103 Carbon Dioxide 31.0 Anion Gap 4 L BUN 19 H Creatinine 1.31 H Estim Creat Clear Calc 66.26 Est GFR (MDRD) Af Amer 72 Est GFR (MDRD) Non-Af 60 BUN/Creatinine Ratio 14.5 Glucose 159 H Calcium 8.2 L Troponin I High Sens 12 POC Glucose 167 H Radiography Diagnostic Testing: Clinical Impression(s) from Imaging Studies Head/Neck CTA 01/10/23 17:34 IMPRESSION: undefined ADDENDUM: 01/10/231821 IMPRESSION: undefined Brain CT 01/10/23 17:35 IMPRESSION: No acute intracranial abnormality. Electronically Signed: Ja Dillon MD at 17:49 EST , ADDENDUM: 01/10/23 1806 IMPRESSION: No acute intracranial abnormality. N.B. : The above Results were Read Back by Ja Dillon MD to Flavio Concepcion MD, and understanding confirmed on 01/10/2023 17:59:11 (ET). Electronically Signed: Ja Dillon MD at 17:49 EST , EKG Initial EKG: Attestation: I personally reviewed and interpreted this EKG as follows: Interpretation: Sinus Rhythm (Rate is 70 with a first-degree AV block. PRinterval is 216 ms. QRS duration 94 ms. QT duration 386 ms. There is artifactnoted. There is no acute ischemic changes noted. There is a question of minimal voltage criteria for LVH per computer.) Management Discussion w/another healthcare provider: Public Relations Coordinator and Pharmacist Treatment and Re-Evaluation Narrative: Because patient is experiencing chest pain he did not have acute ischemic changes the neurologist at [facility] requested the CTA to be read prior to administering TNK because of concern for possible dissection. Once I received call from the radiologist regarding the CTA and there was no evidence of a aortic dissection TNK was ordered. Stroke Documentation Questions Stroke Team Activated: Yes Reviewed Inclusion/Exclusion criteria: Yes IV Thrombolytic Administered: Yes No contraindications from thrombolytic administration: Yes Risks, Benefits, Alternatives Discussed: Yes Critical Care Time Critical Care Time: Yes Critical care time (excluding procedures): 30-74 minutes (34), Including time spent: (History, physical, documentation, review of prior records, initial review of CT and CTA.), Discussing w/Patient &/or Family/Carpenter Assistant (Regarding risk benefits of TNK.), Discussing w/Consultants (Radiologist for the unenhancedscan, a different radiologist for the CTA of the head neck, neurologist at [facility] and the hospitalist) and Arranging Admission or Transfer (Hospitalist and wash house supervisor for ICU bed) Discharge Plan Triage Chief Complaint: Stroke Alert ED Provider: Flavio Concepcion Dx/Rx/DC Orders Clinical Impression: Acute stroke due to ischemia, Parkinsons disease, HTN (hypertension), HLD (hyperlipidemia), Type 2 diabetes mellitus, Chest pressure Prescriptions: No Action Inbrija 42 mg capsule, w/inhalation device 84 mg inhalation TID clonazepam 0.5 mg tablet 0.5 mg PO QHS propranolol 10 mg tablet 10 mg PO TID hydrochlorothiazide 12.5 mg tablet 12.5 mg PO QAM Qty: 90 1RF ondansetron 4 mg tablet,disintegrating 4 mg PO Q8H PRN (Reason: nausea and vomiting) Qty: 30 0RF duloxetine 60 mg capsule,delayed release(DR/EC) 60 mg PO DAILY melatonin 3 MG tablet 9 mg PO QHS trazodone 100 MG tablet 200 mg PO QHS famotidine 20 MG tablet 20 mg PO BID carbidopa-levodopa 50-200 mg tablet extended release 1 tab PO QHS polyethylene glycol 3350 17 gram Powder In Packet 17 g PO QHS prazosin 5 mg Capsule 10 mg PO QHS testosterone cypionate 200 mg/mL Oil 200 mg IM Q14D diltiazem HCl 60 mg Tablet 60 mg PO BID omega-3 fatty acids Capsule 1,000 mg PO DAILY rosuvastatin 20 mg Tablet 20 mg PO QHS cholecalciferol (vitamin D3) 50 mcg (2,000 unit) Tablet 50 mcg PO DAILY Jardiance 25 mg Tablet 12.5 mg PO DAILY Rytary 36.25-145 mg Capsule, Extended Release 1 cap PO 4X/DAY Rx Instructions: divide evenly over waking hours pantoprazole [Protonix] 40 mg tablet,delayed release (DR/EC) 80 mg PO BID clopidogrel 75 mg Tablet 75 mg PO DAILY Qty: 21 0RF dicyclomine 20 mg tablet 20 mg PO BID Qty: 20 0RF sucralfate [Carafate] 1 gram tablet 1 g PO Q6H Qty: 28 0RF [facility] [Primary Care Provider] - Disposition Disposition: Acute Care Hospital [facility] What to do if you have Problems For any increased pain, shortness of breath, bleeding, nausea or vomiting, chestpain, or any unexpected problems, contact your Primary Care Provider. Call [facility] ([phone]) or report to the closest Emergency Room. Call 911 if necessary. 01/10/23 6665 <Electronically signed by Flavio Concepcion MD> Cosigner Signature (if applicable): CC: [facility] ~ Signed ADDENDUM by Dr. Flavio Concepcion MD on 01/10/23 at 1859 Repeat EKG was obtained because of persistent chest pain. EKG reveals a sinus rhythm with first-degree AV block. Rate 64. Parables 210 ms. Cures duration 92 ms. QT duration 382 ms. Blanchard is normal. Question of LVH by voltage criteria. 01/10/23 1859<Electronically signed by Flavio Concepcion MD> Cosigner Signature (if applicable): cc: [facility] ~* Signed [facility] Work Phone: 1(943) 518-709705-08-2023 History and physical note Author Timur Friend [facility] July 04, 2022 8:35am Note Date/Time July 04, 2022 8:35am [facility] Medical Records Department [address] [place] [address] History & Physical Exam 07/04/22 0834 MR#: [id number] Acct: [id number] Name: KRISHAN BURNHAM Rep #:[id number] 1 : 1965 56 From: Timur Abreu DO PCP: ARGENTINA Carroll Status:[facility] Location: [place] [address] History and Physical Date of Admission: 07/04/22 56 M who presents to the office today to establish with gastroenterology for chronic abdominal pain.? He actually has multiple different abdominal pains.? The most longstanding pain is left-sided which began years ago.? He had recurrent diverticulitis.? He had laparoscopic sigmoid colectomy and takedown ofsplenic flexure in January 2020.? Pain resolved for 3 months but then returned and has persisted since then.? He had a follow-up visit with his surgeon Dr. Chavez who felt he might be having issues with the anastomosis and possible stricturing.? At that time patient declined barium enema or colonoscopy.? He continues to have the pain in left upper and left lower quadrants.? This pain isconstant.? Can be crampy or sharp.? No particular aggravating or relieving factors. He also has epigastric pain, this started about 6 months ago, random, usually inthe morning, sudden onset, severe, doesn't radiate, lasts about an hour, worse with GI cocktail at [place] cocktail, better with milk and a little bit of food.He reports he has a hiatal hernia. He takes famotidine, pantoprazole. Reflux better since starting famotidine. Liquid sucralfate hasn't helped.??No nausea orvomiting.? No dysphagia. For 6 mos he has had alternating bowel pattern--can have urgent postprandial diarrhea with cramps, or he can have constipation. Currently having normal BMs, has started making/drinking kefir. No melena or hematochezia. No nocturnal diarrhea. 03/24/22 CT/Abdomen/Pelvis W IV Cont ONLY IMPRESSION: Fatty infiltration of the liver. An anastomosis seen in the sigmoid colon. Status post cholecystectomy and appendectomy. ? 05/26/22 CT/Abdomen/Pelvis without Cont IMPRESSION: Status post cholecystectomy. Surgical anastomosis is seen at the rectosigmoid colon. ROS Const Constitutional: Positive for fatigue, weakness and weight change ENT ENT: No difficulty swallowing Gastro GI: Positive for abdominal pain, bloating, change in bowel habits, constipation,diarrhea, heartburn, excessive flatus, nausea/dyspepsia and vomiting; No belching, change in stool character, coffee ground emesis, cramping, difficulty swallowing, feeling full early, incontinent of stools, Vomiting blood/hematemesis, Blood in stool, loose stools, Black,tarry stools, pain with swallowing or other Musc Musculoskeletal: Positive for stiffness, Arthritis and restless legs; No joint pain Skin Skin: No yellowing of the eye or itchy eyes Neuro Neurology: Positive for weakness and restless legs Psych Psychiatric: Positive for anxiety and Positive for depression Endo Endocrine: Positive for fatigue and weight change Aller/Imm Allergy/Immunologic: No itchy eyes Skyler/Lymp Hematologic/Lymphatic: No easy bleeding or easy bruising Exam Const General: cooperative, healthy appearing and comfortable Orientation: alert, awake and oriented x3 HENMT Head: normal to inspection Eyes Sclera: sclerae normal Resp Effort & Inspection: normal respiratory effort GI Inspection: normal to inspection Palpation: soft, no hepatosplenomegaly, no masses and tender in the epigastrum, in the LLQ, in the RLQ, in the LUQ and in the RUQ General: bladder normal to palpation Skin General: no rashes or lesions noted Neuro Speech: speech normal Gait: normal gait Psych Mood: congruent mood Quality Reporting Tobacco Screening ([facility] 138) Smoking Status: Former smoker Assessment and Plan Assessment and Plan (1) Abdominal pain: ?Status:?Chronic ?Qualifiers: ?Abdominal location:?left lower quadrant? Qualified Code(s):?R10.32 - Left lower quadrant pain ?Plan: 56-year-old male with long-term chronic left upper quadrant and left lower quadrant abdominal pain which may be related to diverticular disease.? History of sigmoid resection and takedown of splenic flexure in 2020 for diverticular disease.? Consider SCAD.? We will get labs to evaluate for inflammation and blood in stool, IBD, autoimmune.? We will contact him with the results via the portal, and any further evaluation as well as treatment.? He has chronic reflux,6 months of intermittent severe epigastric pain.? He will be scheduled for EGD and colonoscopy, with office visit 2 weeks later to review results. (2) Alternating constipation and diarrhea: ?Status:?Chronic ?Plan: See above (3) GERD (gastroesophageal reflux disease): ?Status:?Chronic ?Qualifiers: ?Esophagitis presence:?esophagitis presence not specified? Qualified Code(s):?K21.9 - Gastro-esophageal reflux disease without esophagitis ?Plan: See above ? ? ? Orders: Orders Miscellaneous Lab Procedure Today K21.9 - Gastro-esophageal reflux disease without esophagitis, R10.32 - Left lower quadrant pain, R19.8 - Other specified symptoms and signs involving the digestive system and abdomen ? Comprehensive Metabolic Profil Today R10.32 - Left lower quadrant pain, R19.8 - Other specified symptoms and signs involving the digestive system and abdomen ? CRP Today R10.32 - Left lower quadrant pain, R19.8 - Other specified symptoms and signs involving the digestive system and abdomen ? LDH Today R10.32 - Left lower quadrant pain, R19.8 - Other specified symptoms and signs involving the digestive system and abdomen ? CBC W/Diff, Automated Today R10.32 - Left lower quadrant pain, R19.8 - Other specified symptoms and signs involving the digestive system and abdomen ? Erythrocyte Sed Rate Today R10.32 - Left lower quadrant pain, R19.8 - Other specified symptoms and signs involving the digestive system and abdomen ? DEVI Comprehensive Panel Today R10.32 - Left lower quadrant pain, R19.8 - Other specified symptoms and signs involving the digestive system and abdomen ? Calprotectin, Stool Today R10.32 - Left lower quadrant pain, R19.8 - Other specified symptoms and signs involving the digestive system and abdomen ? Stool Lactoferrin/WBC Today R10.32 - Left lower quadrant pain, R19.8 - Other specified symptoms and signs involving the digestive system and abdomen ? ANCA Today R10.32 - Left lower quadrant pain, R19.8 - Other specified symptoms and signs involving the digestive system and abdomen ? C Celiac Disease Profile Today R10.32 - Left lower quadrant pain, R19.8 - Other specified symptoms and signs involving the digestive system and abdomen ? Immunoglobulins G/A/M/E Today R10.32 - Left lower quadrant pain, R19.8 - Other specified symptoms and signs involving the digestive system and abdomen ? CAITLYN + Protein Elect, Serum Today R10.32 - Left lower quadrant pain, R19.8 - Other specified symptoms and signs involving the digestive system and abdomen ? I have examined the patient and the H&P has been reviewed. There are no clinicalchanges since date of exam. 07/04/22 0835 <Electronically signed by Timur Abreu DO> Cosigner Signature (if applicable): CC: ARGENTINA Lugo; Timur Abreu DO~ Signed [facility] Work Phone: 1(371) 548-393805-08-2023 Procedure [facility] 07-04-2022 Procedure [facility]05-08-2023 Procedure note [facility]05-08-2023 Procedure [facility] 09-10-2020 Chief complaint Narrative - Reported* An interactive audio and video telecommunication system which permits real time communications between the patient (at the originating site) and provider (at the distant site) was utilized to providethis telehealth service. * Verbal consent was requested and obtained from KRISHAN BURNHAM on this date, 09/10/2020 04:00 PM , fora telehealth visit. * VIRTUAL: [id number]. Cpap not working [facility] Work Phone: Evaluation + Plan note No data available for this section [facility] Evaluation note* Diagnosis Onset Date Resolution Status COVID-19 acute HTN (hypertension) chronic Type 2 diabetes mellitus acu te HLD (hyperlipidemia) [facility] Work Phone: Evaluation note* Diagnosis Onset Date Resolution Status Type 2 diabetes mellitus acu te HLD (hyperlipidemia) [facility] Work Phone: Evaluation note* Diagnosis Onset Date Resolution Status Pain of left calf noneactive Left knee pain noneactive Type 2 diabetes mellitus acu te HLD (hyperlipidemia) chronic Type 2 diabetes mellitus acu te HLD (hyperlipidemia) chronic HTN (hypertension) chronic Sleep apnea chronic Encounter for pre-operative examination noneactive [facility] Work Phone: Evaluation note* Diagnosis Onset Date Resolution Status Type 2 diabetes mellitus acu te HLD (hyperlipidemia) chronic HTN (hypertension) chronic Sleep apnea chronic Encounter for pre-operative examination noneactive Prostatitis, acute noneactiv e Acute cerebrovascular accident (CVA) due to ischemia acute Borderline type 2 diabetes mellitus [facility] Work Phone: Evaluation note* Diagnosis Onset Date Resolution Status Type 2 diabetes mellitus acu te HLD (hyperlipidemia) chronic HTN (hypertension) chronic Sleep apnea chronic Encounter for pre-operative examination noneactive Prostatitis, acute noneactiv e CVA (cerebral vascular accident) noneactive Acute diverticulitis noneact richard Nausea and vomiting noneacti ve [facility] Work Phone: Evaluation note* Diagnosis Onset Date Resolution Status Prostatitis, acute noneactiv e CVA (cerebral vascular accident) noneactive Acute diverticulitis noneact richard Nausea and vomiting noneacti ve [facility] Work Phone: Evaluation noteNo assessment information available [facility] Work Phone: Evaluation note* Diagnosis Onset Date Resolution Status Abdominal pain chronic Alternating constipation and diarrhea chronic GERD (gastroesophageal reflux disease) chronic [facility] Work Phone: Evaluation note* Diagnosis Onset Date Resolution Status Abdominal pain chronic Alternating constipation and diarrhea chronic GERD (gastroesophageal reflux disease) chronic Acute stroke due to ischemia acute Chest pressure acute Type 2 diabetes mellitus acu te HLD (hyperlipidemia) chronic HTN (hypertension) chronic Parkinsons disease chronic [facility] Work Phone: Evaluation note* Diagnosis Onset Date Resolution Status Wrist pain acute Chest pressure resolved Cellulitis of right wrist [place] Quervain's tenosynovitis, right acute Chest pain acute [facility] Work Phone: Evaluation note* Diagnosis Onset Date Resolution Status Wrist pain acute Chest pressure resolved Cellulitis of right wrist [place] De Quervain's tenosynovitis, right acute Chest pain resolved [id number] resolved Cough acute [facility] Work Phone: Evaluation note* Diagnosis Rhinosinusitis- Primary Unspecified sinusitis (chronic) [facility] Diagnosis Onset Date Resolution Status Admit Date Difficulty swallowing acute Oct 8:14am Melena acute October 8:14am [facility] Work Phone: History and physical note Author Jamee Phillips [facility] January 10, 2023 7:45pm Note Date/Time January 10, 2023 6:39pm [facility] Medical Records Department [address] [place] [id number] H&P Exam - Hospitalist 01/10/23 1839 MR#: [id number] Acct: [id number] Name: KRISHAN BURNHAM Rep #:[id number] : 1965 57 From: Jamee Phillips MD PCP: [facility],[place] Status:ADM IN Location: ICU ICU04-1 HPI - General General Date of Admission: 01/10/23 Date of Service: 01/10/23 Chief Complaint: R sided weakness, paresthesias, chest pain, LH/dizziness. HPI Narrative The patient is a 57 y/o M w/ PMHx: Hx Diverticulitis s/p prior partial colectomy, HTN, HLD, Diabetes mellitus type II, Depression and Anxiety, GERD, Former tobacco use, BRITTANY on CPAP q HS, Parkinson's disease, admission 11/30/21 with Blurry vision, imbalance, paresthesias R face, R sided weakness w/ TNK administration at that time with no MRI evidence of ischemic stroke noted nor any evidence of demyelination who now re-presents to the [facility] ED on 01/10/23 withhistory of onset at 1645 onset of right sided facial droop, right upper and lower extremity paresthesias as well as right upper and lower extremity weaknessin addition to onset of chest discomfort left- sided described as aching and dyspepsia like in nature with associated mild dyspnea, diaphoresis occurring intermittently since Monday independent of activity or rest lasting up to 30 minutes at a time rated 5-6 out of 10 at its worse however with onset of his neurological symptoms his chest pain again began and continued with reported also right upper extremities pain but no radiation to the neck or to the left upper extremity prompting eventual ED evaluation. He also notes episodes of dizziness with positional changes primarily or with activity in general since Monday as well. In the ED initial NIH stroke score score 6.0. Upon hospitalistevaluation status post TNK initiated at 1827 patient with improvement with resolving paresthesias and only very mild drift to the right upper and lower extremity as well as resolving facial droop and no altered speech noted. Work-up in the ED included 98.6, heart rate 98, BP 156/81, respiratory rate 14, 100% on room air, CBC with WBC 6.7, hemoglobin 13.8, platelet 127 without marked shift, unremarkable coags, BMP with potassium 3.2, BUN/creatinine 19/1.31, glucose 159, troponin 12, EKG with sinus rhythm with first-degree AV block with no acute evidence of ischemia, CT head with no acute intracranial findings, chest x-ray with no acute cardiopulmonary findings, CTA head and neck with no evidence of any significant stenoses or aneurysm. ED physician did discuss withneurology for stroke alert and TNK was recommended and initiated. [facility] Medical History Abdominal pain Acute cerebrovascular accident (CVA) due to ischemia Borderline type 2 diabetes mellitus Constipation COVID-19 vaccine series completed CPAP (continuous positive airway pressure) dependence Depression with anxiety Diabetes Diverticulitis Former smoker GERD (gastroesophageal reflux disease) History of hiatal hernia Hyperlipidemia Hypertension Lupus Sleep apnea Type 2 diabetes mellitus Wears glasses Home Medications melatonin 3 mg tablet 9 mg PO QHS SLEEP 03/15/20 [History Last Taken 11/29/21] trazodone 100 mg tablet 200 mg PO QHS SLEEP 05/12/19 [History Last Taken 11/29/21] famotidine 20 mg tablet 20 mg PO BID GERD 02/17/20 [History Last Taken 07/04/22 06:00] carbidopa ER 50 mg-levodopa 200 mg tablet,extended release 1 tab PO QHS PARKINSONS 02/16/21 [History Last Taken 11/29/21] clonazepam 0.5 mg tablet 0.5 mg PO QHS 02/16/21 [History Last Taken 11/30/21] hydrochlorothiazide 12.5 mg tablet 12.5 mg PO QAM #90 tabs 02/16/21 [Rx Last Taken 11/30/21] levodopa 42 mg capsule with inhalation device (Inbrija) 84 mg inhalation TID 02/16/21 [History Last Taken 11/30/21] propranolol 10 mg tablet 10 mg PO TID 02/16/21 [History Last Taken 11/30/21] carbidopa ER 36.25 mg-levodopa 145 mg capsule,extended release (Rytary) 1 cap PO4X/DAY 11/30/21 [History Last Taken Unknown] cholecalciferol (vitamin D3) 50 mcg (2,000 unit) tablet 50 mcg PO DAILY supplement 11/30/21 [History Last Taken 11/30/21] diltiazem HCl 60 mg tablet 60 mg PO BID 11/30/21 [History Last Taken 11/30/21] empagliflozin 25 mg tablet (Jardiance) 12.5 mg PO DAILY 11/30/21 [History Last Taken 11/30/21] omega-3 fatty acids 1,000 mg PO DAILY 11/30/21 [History Last Taken 11/30/21] pantoprazole 40 mg tablet,delayed release (Protonix) 80 mg PO BID gerd 11/30/21 [History Last Taken 07/04/22 06:00] polyethylene glycol 3350 17 gram oral powder packet 17 g PO QHS 11/30/21 [History Last Taken 11/29/21] prazosin 5 mg capsule 10 mg PO QHS 11/30/21 [History Last Taken 11/29/21] rosuvastatin 20 mg tablet 20 mg PO QHS 11/30/21 [History Last Taken 11/29/21] testosterone cypionate 200 mg/mL intramuscular oil 200 mg IM Q14D 11/30/21 [History Last Taken 1 Week Ago ~11/23/21] clopidogrel 75 mg tablet 75 mg PO DAILY #21 tabs 12/02/21 [Rx Last Taken Unknown] ondansetron 4 mg disintegrating tablet 4 mg PO Q8H PRN nausea and vomiting #30 tabs 01/13/22 [Rx Last Taken Unknown] dicyclomine 20 mg tablet 20 mg PO BID #20 tabs 01/14/22 [Rx Last Taken Unknown] sucralfate 1 gram tablet (Carafate) 1 g PO Q6H #28 tabs 03/24/22 [Rx Last Taken Unknown] duloxetine 60 mg capsule,delayed release 60 mg PO DAILY 03/29/22 [History Last Taken Unknown] Allergy/AdvReac Type Severity Reaction Status Date / Time No Known Allergies Allergy Verified 01/10/23 17:36 Family History Mother Heart disease Hypertension High cholesterol Cancer skin cancer Father Heart disease High cholesterol Hypertension CVA (cerebral vascular accident) Surgical History History of appendectomy History of colectomy (~02/2020) History of laparoscopic cholecystectomy S/P arthroscopic surgery of left knee Social History household members: spouse number of children: 5 current occupational status: unemployed Smoking Status: Former smoker how long ago did patient quit smoking: Quit ~ 15 years prior, smoked socially only. alcohol intake: never substance use type: does not use ROS ROS Narrative Admission Review of Systems: CONSTITUTIONAL: No weight loss, fever, chills, + weakness or fatigue. HEENT: + R facial droop, facial paresthesias, LH/dizziness. Eyes: No double vision or yellow sclerae. Ears, Nose, Throat: No hearing loss, sneezing, congestion, runny nose or sore throat. SKIN: No rash or itching, lesions, wounds. CARDIOVASCULAR: + chest pain, dyspnea, diaphoresis, LH/Dizziness. No palpitations, edema, orthopnea, syncopal events. RESPIRATORY: No shortness of breath, cough or sputum, wheezing, hemoptysis. GASTROINTESTINAL: No anorexia, nausea, vomiting or diarrhea, abdominal pain, melena, BRBPR. GENITOURINARY: No dysuria, frequency, urgency or retention. NEUROLOGICAL: + R sided facial droop, R sided paresthesias, weakness, LH/dizziness. No headache, syncope, paralysis, ataxia, change in bowel or bladder control, seizure. MUSCULOSKELETAL: + muscle, back pain, joint pain or stiffness. HEMATOLOGIC: No anemia, bleeding or bruising. LYMPHATICS: No enlarged nodes. No history of splenectomy. PSYCHIATRIC: + history of depression or anxiety. ENDOCRINOLOGIC:+ reports of sweating. No cold or heat intolerance. No polyuria or polydipsia. ALLERGIES: No history of asthma, hives, eczema or rhinitis. Vital Signs Vital Signs Vital Signs: 01/10/23 17:33 01/10/23 17:42 01/10/23 17:50 Temperature 98.6 F Temperature Source Temporal Pulse Rate 98 Respiratory Rate 14 14 Blood Pressure 156/81 H 165/87 H Blood Pressure Mean 106 113 Blood Pressure Source Blood Pressure Position Blood Pressure Location Pulse Ox 100 Oxygen Delivery Method Room Air Room Air 01/10/23 18:00 01/10/23 18:23 01/10/23 18:04 Temperature Temperature Source Pulse Rate 64 Respiratory Rate 15 Blood Pressure 165/75 H 142/71 H 148/72 H Blood Pressure Mean 105 97 Blood Pressure Source Blood Pressure Position Blood Pressure Location Pulse Ox 95 Oxygen Delivery Method Room Air 01/10/23 18:27 01/10/23 18:30 Temperature Temperature Source Pulse Rate 70 70 Respiratory Rate 15 15 Blood Pressure 142/71 H 153/83 H Blood Pressure Mean 94 106 Blood Pressure Source Monitor Monitor Blood Pressure Position Sitting Sitting Blood Pressure Location Left Arm Left Arm Pulse Ox 95 96 Oxygen Delivery Method Room Air Room Air Weight Weight: 235 lb 0.204 oz Body Mass Index (BMI) 32.8 Physical Exam Narrative Physical Examination: General: Awake, alert, oriented x 3, cooperative, seated upright in the ED bed, flat affect. Skin: Normal color, normal turgor, no icterus, no cyanosis. HEENT: AT/NC, EOMI, PERRLA, MMM, no carotid bruits or JVD noted, no marked facial droop noted, appropriate smile, equal teeth visualized. Lungs: CTA bilaterally, moderate effort, mild decrease BL bases, no rales, ronchi or wheezing. Heart: Regular rate and rhythm; no gallop, rub audible. Abdomen: Soft, obese, NTTP, ND, normal BS, no HSM. Extremities: No cyanosis, clubbing, or edema. Neurological: Patient awake, alert, oriented as noted, cognitive function appears baseline, pupils equally reactive to light and accommodation, cranial nerves grossly normal, moving all 4 extremities however still does have a very mild drift right upper extremity and right lower extremity, appropriate [id number] and [id number], equivocal Babinski, sensation still with paresthesias to the right face and right lower extremity but he notes improved. Psychiatric: Affect appears flat, does have underlying anxiety and depression. Results Lab / Micro Data 01/10/23 17:50 01/10/23 17:50 Labs: Laboratory Results - last 24 hr 01/10/23 17:35: POC Glucose 167 H 01/10/23 17:50: WBC 6.7, RBC 4.71, Hgb 13.8, Hct 40.0, MCV 84.9, MCH 29.3, MCHC 34.5, RDW Std Deviation 37.9, RDW Coeff of Gail 12.3, Plt Count 127 L, MPV 9.7, Immature Gran % (Auto) 0.100, Neut % (Auto) 64.2, Lymph % (Auto) 23.5, Logan % (Auto) 10.0, Eos % (Auto) 1.8, Baso % (Auto) 0.4, Absolute Neuts (auto) 4.3, Absolute Lymphs (auto) 1.57, Nucleated RBC % 0, PT 13.9, INR 1.1, APTT 28.1, Sodium 138, Potassium 3.2 L, Chloride 103, Carbon Dioxide 31.0, Anion Gap 4 L, BUN 19 H, Creatinine 1.31 H, Estim Creat Clear Calc 66.26, Est GFR (MDRD) Af Amer 72, Est GFR (MDRD) Non-Af 60, BUN/Creatinine Ratio 14.5, Glucose 159 H, Calcium 8.2 L, Troponin I High Sens 12 Radiology Impression Head/Neck CTA 01/10/23 17:34 IMPRESSION: undefined ADDENDUM: 01/10/23 182 IMPRESSION: undefined Brain CT 01/10/23 17:35 IMPRESSION: No acute intracranial abnormality. Electronically Signed: Ja Dillon MD at 17:49 EST , ADDENDUM: 01/10/23 1806 IMPRESSION: No acute intracranial abnormality. N.B. : The above Results were Read Back by Ja Dillon MD to Flavio Concepcion MD, and understanding confirmed on 01/10/2023 17:59:11 (ET). Electronically Signed: Ja Dillon MD at 17:49 EST , Assessment & Plan Assessment/Plan (1) Acute stroke due to ischemia: (2) Chest pressure: PLAN: Plan The patient is a 57 y/o M w/ PMHx: Hx Diverticulitis s/p prior partial colectomy, HTN, HLD, Diabetes mellitus type II, Depression and Anxiety, GERD, Former tobacco use, BRITTANY on CPAP q HS, Parkinson's disease, admission 11/30/21 with Blurry vision, imbalance, paresthesias R face, R sided weakness w/ TNK administration at that time with no MRI evidence of ischemic stroke noted nor any evidence of demyelination who now re-presents to the [facility] ED on 01/10/23 withhistory of onset at 1645 onset of right sided facial droop, right upper and lower extremity paresthesias as well as right upper and lower extremity weaknessin addition to onset of chest discomfort left- sided described as aching and dyspepsia like in nature with associated mild dyspnea, diaphoresis occurring intermittently since Monday independent of activity or rest lasting up to 30 minutes at a time rated 5-6 out of 10 at its worse however with onset of his neurological symptoms his chest pain again began and continued with reported also right upper extremities pain but no radiation to the neck or to the left upper extremity prompting eventual ED evaluation. #1. Acute R sided Weakness/Paresthesias concerning for Acute CVA s/p TNK administration: Will admit to the ICU, TNK administered in the ED, will request sales attendant consultation per protocol, will plan CT head in 24 hours or if appropriate timing will obtain MRI brain at that time, ECHO 11/2021 with negative bubble study thus will defer repeat, PT/OT/Speech/Nutrition evaluation per protocol, will continue permissive hypertension with as needed agents per stroke protocol given TNK administration, resume immediately antiplt therapy once repeat CT head or MRI if appropriate at 24 hours is negative for any intracranial bleeding, maintain on statin therapy, maintain on fall and aspiration precautions. FLP, magnesium, TSH, HgbA1c. #2. Chest Pain: EKG in ED with sinus rhythm with first-degree AV block with no acute evidence of ischemia, CXR w/ no acute cardiopulmonary findings, initial trop 12. Will place on a monitored bed to assure no acute myocardial infarction with serial cardiac enzymes and EKGs. Magnesium level requested. FLP in AM. Given current presentation as noted #1 we will temporally have to hold the patient Plavix therapy, resume if repeat CT head or MRI at 24-hour kev is negative. If cardiac enzymes are unremarkable and patient with no acute evidence of stroke then will need to pursue anginal work- up #3. Anxiety and depression: Given current presentation we will hold sedated regimen including clonazepam as well as high-dose trazodone temporarily given need for appropriate and accurate NIH stroke scale assessments, will continue patient home duloxetine regimen. #4. Parkinson's disease: Complicates presentation, maintain on fall precautions, will continue patient home levodopa regimen. #5. Hypertension: Permissive hypertension with as needed agents per stroke protocol especially given TNK administration. #6. Hyperlipidemia: FLP in AM, continue patient on statin therapy. #7. Diabetes mellitus type II with hyperglycemia: Hold oral home regimen, nutrition consulted per protocol #1, hemoglobin A1c requested, ADA diet, accu checks w/ ISS. #8. Former tobacco use: Encourage continued tobacco cessation. #9. BRITTANY: CPAP nightly. #10. DVT prophylaxis: SCDs, defer any chemoprophylaxis given tPA administration. Charges/Coding Visit Charges Inpatient E&M: 91794 Init Hosp L3 01/10/231944 <Electronically signed by Jamee Phillips MD> Cosigner Signature (if applicable): CC: Dr. Jamee Phillips MD; [facility]~ Signed [facility] Work Phone: History of Present illness Narrative* VIRTUAL APPOINTMENT BEING PERFORMED DUE TO COVID-19 (CORONAVIRUS) * Presents today for FACE TO FACE FOR A [...] NECESSARY FOR HIM TO HAVE A NEW MACHINE. * PARKINSON'S- STABLE * DIVERTICULOSIS- STABLE [facility] Work Phone: History of Present illness Narrative* TELEPHONE APPOINTMENT BEING PERFORMED DUE TO COVID-19 (CORONAVIRUS) * Presents today for C/O SORE THROAT, NASAL CONGESTION, AND NAUSEA modifying factors consists of HIS IS EXPERIENCING SIMILAR SYMPTOMS associated symptoms consist of NO SINUS TENDERNESS, SOB, COUGH, OR CP prior treatment consists of medication NONE * TESTOSTERONE- REQUESTING 21 G NEEDLES BE SENT TO [facility]. [facility] G[facility] 20 G AND THEY HURT WHEN INJECTINGMED [facility] Work Phone: Hospital Discharge instructions Additional Instructions Please follow-up. Continue Augmentin until finished.[facility] Work Phone: Hospital Discharge instructions Additional Instructions Your cardiac work-up was normal today. The exact cause of your pain is not clear. I question if it could be more associated with your stomach. We will start on Carafate. Please follow-up with your primary care physician for further cardiac evaluation and possibly scheduling an outpatient stress test. Return to the ER if you have a progression or worsening of your symptoms. [facility] Work Phone: Hospital Discharge instructions No data available for this section [facility] Hospital Discharge instructionsAdditional Instructions Your labs and CAT scan look good. They do not see any signs of acute diverticulitis at this time. Plenty of fluids. Plenty of fiber to help with any constipation. Tylenol for pain. If not proving follow-up with your primary care provider. [facility] Work Phone: Progress note No data available for this section [facility] Prombess note Author Jay Chavez [facility] Note Date/Time November 25, 2024 8:45am [facility] ealt System [facility] [address] [place] [address] OFFICE VISIT Date of Service: 11/25/24 MR#: [id number] Acct: [id number] Name: KRISHAN BURNHAM Rep #: [id number] : 1965 Provider: Dr. Mya Chavez MD Age/Sex: 59/M Location: [facility] Status: Signed Intake Vital Signs 10/27/24 14:51 11/25/24 08:39 Height 5 ft 11 in 5 ft 11 in Weight: 239 lb BMI 33.3 BP 120/77 Blood Pressure Location Rt brachial Position Sitting Respiration 17 Pulse 66 Pulse Source Monitor Pulse Oximetry (%) 97 Oxygen Delivery Method room air Intake Visit Reasons: COLONOSCOPY Chief Complaint: colonoscopy Is patient in pain?: No Allergies No Known Allergies Allergy (Verified 11/25/24 08:40) Medications ?Medication ?Instructions ?Recorded ?Confirmed ?Type melatonin 3 mg tablet 9 mg PO QHS SLEEP 05/12/19 0 11/25/24 History trazodone 100 mg tablet 200 mg PO QHS SLEEP 05/12/19 11/25/24 History famotidine 20 mg tablet 20 mg PO BID GERD 02/17/20 0 11/25/24 History propranolol 10 mg tablet 10 mg PO BID HYPERTENSION 11/25/24 History carbidopa ER 36.25 mg-levodopa 145 4 cap PO 4X/DAY Par kinsons 11/30/21 11/25/24 History mg capsule,extended release (Rytary) cholecalciferol (vitamin D3) 50 50 mcg PO DAILY SUPPLE MENT 11/30/21 11/25/24 History mcg (2,000 unit) tablet diltiazem HCl 60 mg tablet 60 mg PO BID HYPERTENSION/A DARRYL 11/30/21 11/25/24 History empagliflozin 25 mg tablet 12.5 mg PO DAILY DIABETES 1 11/25/24 History (Jardiance) prazosin 5 mg capsule 10 mg PO QHS HYPERTENSION 11/25/24 History duloxetine 60 mg capsule,delayed 120 mg PO DAILY DEPRE SSION 03/29/22 11/25/24 History release clonazepam 0.5 mg tablet 0.5 mg PO QHS PANIC ATTACKS 03/16/23 11/25/24 History diclofenac sodium 1 % topical gel 4 g topical BID PRN OSTEOARTHRITIS 03/16/23 08/02/23 History gabapentin 300 mg capsule 300 mg PO QHS RESTLESS LEG S YNDROME 03/16/23 11/25/24 History sildenafil 100 mg tablet 100 mg PO DAILY PRN sexual a ctivity 03/16/23 11/25/24 History pantoprazole 40 mg tablet,delayed 40 mg PO QDAY 11/25/24 History release rosuvastatin 20 mg tablet 20 mg PO QDAY 11/25/2411/25 History testosterone cypionate 200 mg/mL 200 mg IM Q2W 5 11/25/24 History intramuscular oil (Depo-Testosterone) [facility] Medical History BMI 34.0-34.9,adult Left ventricular hypertrophy Chronic prescription benzodiazepine use Type 2 diabetes mellitus Testosterone deficiency in male Diverticulosis Sprain and strain of left hand COVID-19 Alternating constipation and diarrhea Wrist pain De Quervain's tenosynovitis, right Cough Cellulitis of right wrist Acute stroke due to ischemia Lupus Wears glasses History of hiatal hernia CPAP (continuous positive airway pressure) dependence Acute cerebrovascular accident (CVA) due to ischemia COVID-19 vaccine series completed Former smoker Hypertension Hyperlipidemia HTN (hypertension) Parkinsons disease GERD (gastroesophageal reflux disease) Constipation Sleep apnea Depression with anxiety Abdominal pain Diverticulitis Surgical History S/P arthroscopic surgery of left knee History of colectomy (~02/2020) History of laparoscopic cholecystectomy History of appendectomy Family History (Updated 11/25/24 @ 08:39 by Aisha Mckeon) Mother Heart disease Hypertension High cholesterol Cancer skin cancer Thyroid disorder Diabetes Father Heart disease High cholesterol Hypertension CVA (cerebral vascular accident) Social History household members: spouse number of children: 5 current occupational status: unemployed Smoking Status: Former smoker how long ago did patient quit smoking: Quit ~ 15 years prior, smoked socially only. alcohol intake: never substance use type: does not use HPI HPI HPI: Patient is a 59-year-old male here with 2 issues. First he is having melanotic stools occasionally. He reports they are foul-smelling and he reports that he is having bloating and diarrhea after eating. He is on omeprazole and famotidine. He also reports he is having difficulty swallowing with food getting stuck in his esophagus. He is also having left lower quadrant pain thathas been chronic since his colectomy 3 years ago. He reports normal stools except for the melena. ROS General General: Yes fatigue; No weight change, appetite, colon cancer, breast cancer or weakness HEENT HEENT: Yes difficulty swallowing; No eye injury, eye surgery, swollen glands or hoarseness Endo Endocrine: Yes diabetes mellitus; No thyroid disease, thyroid cancer, Hair loss, heat intolerance or cold intolerance Skin Skin: No rash or changing moles Musc Musculoskeletal: No back problems, arthritis, rheumatoid arthritis, gout or joint pain Cardio Cardiovascular: No murmur, pacemaker, heart disease, atrial fibrillation, high blood pressure, heart attack, heart stent, palpitations, shortness of breath with exertion or chest pain Psych Psychiatric: Yes depression and anxiety; No hearing voices Resp Respiratory: No shortness of breath, No sleep apnea, No cough, No COPD, No asthma, No emphysema and No wheezing Gastro Gastrointestinal: Yes abdominal pain, Yes nausea or vomiting, Yes diarrhea, Yes constipation, Yes blood in stool, Yes acid reflux, No hemorrhoids, Yes ulcers, No gallbladder problem and Yes black,tarry stools [place]yler Hematologic: No blood thinners, No blood disorders, No bleeding, No anemia and No blood clots Neuro Neurologic: No system reviewed and no additional complaints, except as documented, No as per HPI, No abnormal gait, No abnormal hearing, No abnormal movements, No abnormal speech, No behavioral changes, No burning sensations, No confusion, No convulsions, No disequilibrium, No dizziness, No localized weakness, No frequent falls, No headache(s), No lack of coordination, No loss ofvision, No memory loss, No numbness, No other visual disturbances, No radicular pain, No restless legs, No sensory deficit, No syncope, No tingling, No tremor(s), No weakness and No other Exam Const General: cooperative Orientation: alert and oriented x3 HENMT Head: normal to inspection Neck Neck: normal visual inspection and full ROM Chest Chest palpation & inspection: normal inspection of the chest Resp Effort & Inspection: normal respiratory effort Auscultation: clear to auscultation bilaterally Cardio Rate: regular rate Rhythm: regular rhythm GI Inspection: non-distended Palpation: soft and nontender Skin General: no rashes or lesions noted Neuro General: patient alert and patient oriented x3 Extrem General: full ROM Psych Appearance: grossly normal Mental Status: mental status grossly normal Assessment and Plan Assessment and Plan (1) Difficulty swallowing: Status: Acute (2) Melena: Status: Acute Orders: Orders Colonoscopy Today EGD Today Plan Patient is having difficulty swallowing and melanotic stools. I discussed performing EGD with possible dilation I would also like to evaluate his colon omari is having left lower quadrant pain. The patient may have anastomotic stenosis. I discussed both procedures with the patient in detail. I explained endoscopy in detail to the patient. I explained the risks including but not limited to stroke or heart attack with anesthesia, perforation of the GI tract, bleeding, infection. I explained that any of these could necessitate further emergency surgery. The patient understands and all questions were answered sufficiently. The patient wishes to proceed with procedure. I did explain the increased risk of bleeding and perforation with dilation of the esophagus. Patient understands all the risks. Jay Chavez MD Pager: [facility] [address] [place] [address], [address] [place] [address] Office: Coding Level of Care Code Off vis,est,level 3 Diagnoses Difficulty swallowing R13.10 Melena K92.1 11/25/24 0845 <Electronically signed by Jay elaine MD> Date _ Jay Chavez MD Cosigner Signature: Date (if applicable) CC: ~ [facility] Work Phone: Reason for referral (narrative)No reason for referral information availableWFairfield [facility] Work Phone: Assessments Diagnosis Varicose veins of leg with [...] Father(V18.59, Z83.79) Status:Active H/O heart artery stent: Fat er(V45.82, Z95.5) Status:Active Family history of rheumatoid [...] Mother(V17.7, Z82.61) Status:Active H/O heart artery stent: [facility] er(V45.82, Z95.5) Status:Active Family history of ulcerative colitis: Father(V18.59, Z83.79) Status:Active Family history of malignant neoplasm of skin: Mother(V16.8, Z80.8) Comments:MELANOMA; Status:Active Family history of myocardial infarction: Father(V17.3, Z82.49) Comments:AGE 58; Status:Active Relationship Condition Age at Onset Recorded Date/T samir mother Cardiac disease Unknown Hypertension Unknown High blood cholesterol Unknown Malignant neoplasm Unknown father Cardiac disease Unknown Cerebrovascular accident (CVA) Unknown Relationship Condition Age at Onset Recorded Date/T samir mother Cardiac disease Unknown Hypertension Unknown High blood cholesterol Unknown Malignant neoplasm Unknown Disorder of thyroid Unknown Diabetes mellitus Unknown father Cardiac disease Unknown Cerebrovascular accident (CVA) Unknown Advance Directives No Advanced Directives Records FoundLatest Code Status on File Code Status Date Activated Date Inactivated Comments Full Code 07/04/2018 7:11 AM Documents on File Type Date Recorded Patient Events Director Expl anation Advance Directives and Livin g Will 07/04/2018 7:02 AM Advance Directive Response Recorded Date/ Time Living Will No February 09 021 11:26pm Power of Operational Test Mechanic No February 09, 2021 11:26pm Advance Directive Response Recorded Date/ Time Living Will No August 04, 2021 4 :48pm Power of Operational Test Mechanic No August 04, 2021 4:48pm Advance Directive Response Recorded Date/ Time Living Will No November 30 2 3:49pm Power of Operational Test Mechanic No November 30 022 3:49pm Advance Directive Response Recorded Date/ Time Living Will No November 30 2 5:34pm Power of Operational Test Mechanic No November 30 5:34pm Advance Directive Response Recorded Date/ Time Living Will No November 30 4:34pm Power of Operational Test Mechanic No November 30 4:34pm Advance Directive Response Recorded Date/ Time Living Will No January 14 3:05pm Power of Operational Test Mechanic No January 14, 2022 3:05pm Advance Directive Response Recorded Date/ Time Living Will No March 24 9:24am Power of Operational Test Mechanic No March 24, 2022 9:24am Advance Directive Response Recorded Date/ Time Living Will No May 26, 2022 11:45am Power of Operational Test Mechanic No May 26 11:45am Advance Directive Response Recorded Date/ Time Living Will No June 29, 2022 11 :54am Power of Operational Test Mechanic No June 29, 2022 11:54am Advance Directive Response Recorded Date/ Time Living Will No January 10 5:43pm Power of Operational Test Mechanic No January 10, 2023 5:43pm Advance Directive Response Recorded Date/ Time Name of Medical Power of Operational Test Mechanic GUERA/ March 16, 2023 5:09pm Living Will Yes March 16 5:09pm Power of Operational Test Mechanic Yes March 16, 2023 5:09pm Advance Directive Response Recorded Date/ Time Name of Medical Power of Operational Test Mechanic GUERA/ March 16, 2023 5:09pm Living Will No March 16 9:54pm Power of Operational Test Mechanic No March 16, 2023 9:54pm Advance Directive Response Recorded Date/ Time Do you have a Healthcare Power of Operational Test Mechanic? Yes September 17, 2024 11:06am Advance Directive Response Recorded Date/ Time Do you have a Healthcare Power of Operational Test Mechanic? Yes September 17, 2024 11:06am Do you have a Healthcare Power of Operational Test Mechanic? No October 27, 2024 5:20pm Discharge Instructions * Instructions* Linda Corrales RN [...] through Care Everywhere. * CARDIAC CATHETERIZATION: LEFT (ALBANIAN) documented in this encounter Chief Complaint * A telephone visit (audio only) between the patient (at the originating site) and the provider (at the distant site) was utilized to provide this telehealth service. * Verbal consent was requested and obtained from KRISHAN BURNHAM on this date, 09/23/2020 03:00 PM , fora telehealth visit. * VIRTUAL: [phone]. Congestion, PRADO, nausea. Chief Complaint and Reason for Visit Chief Complaint 1 M FU L KNEE PAIN LEFT LEG PAIN, CHEST PAIN Follow Up Reason for Visit COVID-19 HTN (hypertension) Type 2 diabetes mellitus HLD (hyperlipidemia) Chief Complaint L KNEE PAIN LEFT LEG PAIN, CHEST PAIN Follow Up ABD PAIN Reason for Visit Type 2 diabetes britney itus HLD (hyperlipidemia) Chief Complaint L KNEE PAIN LEFT LEG PAIN, CHEST PAIN Follow Up ABD PAIN SURGICAL CLEARANCE - PPW RECIEVED Reason for Visit Pain of left calf Left knee pain Type 2 diabetes mellitus HLD (hyperlipidemia) Type 2 diabetes mellitus HLD (hyperlipidemia) HTN (hypertension) Sleep apnea Encounter for pre-operative examination Chief Complaint ABD PAIN SURGICAL CLEARANCE - PPW RECIEVED PROSTATE OR BLADDER INFECTION CVA S/P TPA Reason for Visit Type 2 diabetes britney itus HLD (hyperlipidemia) HTN (hypertension) Sleep apnea Encounter for pre-operative examination Prostatitis, acute Acute cerebrovascular accident (CVA) due to ischemia Borderline type 2 diabetes mellitus Chief Complaint ABD PAIN SURGICAL CLEARANCE - PPW RECIEVED PROSTATE OR BLADDER INFECTION CVA S/P TPA CVA S/P TPA CVA S/P TPA CVA S/P TPA Reason for Visit Type 2 diabetes britney itus HLD (hyperlipidemia) HTN (hypertension) Sleep apnea Encounter for pre-operative examination Prostatitis, acute Acute cerebrovascular accident (CVA) due to ischemia Borderline type 2 diabetes mellitus Chief Complaint SURGICAL CLEARANCE - PPW RECIEVED PROSTATE OR BLADDER INFECTION CVA S/P TPA CVA S/P TPA CVA S/P TPA CVA S/P TPA CVA S/P TPA Reason for Visit Type 2 diabetes britney itus HLD (hyperlipidemia) HTN (hypertension) Sleep apnea Encounter for pre-operative examination Prostatitis, acute Acute cerebrovascular accident (CVA) due to ischemia Borderline type 2 diabetes mellitus Chief Complaint SURGICAL CLEARANCE - PPW RECIEVED PROSTATE OR BLADDER INFECTION CVA S/P TPA CVA S/P TPA CVA S/P TPA CVA S/P TPA CVA S/P TPA [facility] FU. keep as 1hr diverticulitis Reason for Visit Type 2 diabetes britney itus HLD (hyperlipidemia) HTN (hypertension) Sleep apnea Encounter for pre-operative examination Prostatitis, acute CVA (cerebral vascular accident) Acute diverticulitis Nausea and vomiting Chief Complaint SURGICAL CLEARANCE - PPW RECIEVED PROSTATE OR BLADDER INFECTION CVA S/P TPA CVA S/P TPA CVA S/P TPA CVA S/P TPA CVA S/P TPA [facility] FU. keep as 1hr diverticulitis STOOL Reason for Visit Type 2 diabetes britney itus HLD (hyperlipidemia) HTN (hypertension) Sleep apnea Encounter for pre-operative examination Prostatitis, acute CVA (cerebral vascular accident) Acute diverticulitis Nausea and vomiting Chief Complaint PROSTATE OR BLADDER INFECTION CVA S/P TPA CVA S/P TPA CVA S/P TPA CVA S/P TPA CVA S/P TPA [facility] FU. keep as 1hr diverticulitis STOOL Reason for Visit Prostatitis, acute CVA (cerebral vascular accident) Acute diverticulitis Nausea and vomiting Chief Complaint PROSTATE OR BLADDER INFECTION CVA S/P TPA CVA S/P TPA CVA S/P TPA CVA S/P TPA CVA S/P TPA [facility] FU. keep as 1hr diverticulitis STOOL CP Reason for Visit Prostatitis, acute CVA (cerebral vascular accident) Acute diverticulitis Nausea and vomiting Chief Complaint CP ABD PAIN Chief Complaint CP ABD PAIN Consult Reason for Visit Abdominal pain Alternating constipation and diarrhea GERD (gastroesophageal reflux disease) Chief Complaint 2 WK FU BACK PN, PD/RX HERE CVA S/P TNK Reason for Visit Abdominal pain Alternating constipation and diarrhea GERD (gastroesophageal reflux disease) Acute stroke due to ischemia Chest pressure Type 2 diabetes mellitus HLD (hyperlipidemia) HTN (hypertension) Parkinsons disease Chief Complaint CVA S/P TNK CVA S/P TNK CVA S/P TNK CVA S/P TNK HOSPTIAL FOLLOW UP CHEST PAIN Reason for Visit Wrist pain Chest pressure Cellulitis of right wrist De Quervain's tenosynovitis, right Chest pain Chief Complaint CVA S/P TNK CVA S/P TNK CVA S/P TNK CVA S/P TNK HOSPTIAL FOLLOW UP CHEST PAIN ADMIT EKG CHEST PAIN CHEST PAIN CHEST PAIN CHEST PAIN CHEST PAIN CHEST PAIN CHEST PAIN CHEST PAIN CHEST PAIN acute - ongoing cough Reason for Visit Wrist pain Chest pressure Cellulitis of right wrist De Quervain's tenosynovitis, right Chest pain [id number] Cough Chief Complaint Admit Date chest September 17, 2024 11:0 4am Chief Complaint Admit Date chest September 17, 2024 11:0 4am abd pain October 27, 2024 2: 50pm Chief Complaint Admit Date chest September 17, 2024 11:0 4am abd pain October 27, 2024 2: 50pm COLONOSCOPY November 25, 2024 8:14am Reason for Visit Admit Date Difficulty swallowing November 25 8:14am Melena November 25, 2024 8:14am Additional Source Comments (unrecognized sect ion and content) No Status Records FoundNo Status Records FoundNo Status Records FoundNo Status Records FoundNo Status Records FoundNo Status Records FoundNo Status Records FoundNo Status Records FoundNo Status Records FoundNo Status Records FoundNo Status Records FoundNo Status Records FoundNo Status Records Found INFORMATION SOURCE (unrecogn ized section and content) DATE CREATED AUTHOR 08/22/2017 [facility] DATE CREATED AUTHOR AUTHOR'S ORGANIZ ATION 09/06/2017 [facility] DATE CREATED AUTHOR AUTHOR'S ORGANIZ ATION 12/15/2017 [facility] DATE CREATED AUTHOR AUTHOR'S ORGANIZ ATION 01/22/2018 [facility] DATE CREATED AUTHOR AUTHOR'S ORGANIZ ATION 02/16/2018 [facility] DATE CREATED AUTHOR AUTHOR'S ORGANIZ ATION 08/17/2018 [facility] DATE CREATED AUTHOR AUTHOR'S ORGANIZ ATION 10/05/2018 [facility] DATE CREATED AUTHOR AUTHOR'S ORGANIZ ATION 09/24/2020 [facility] DATE CREATED AUTHOR AUTHOR'S ORGANIZ ATION 09/26/2020 [facility] DATE CREATED AUTHOR AUTHOR'S ORGANIZ ATION 12/17/2022 [facility] DATE CREATED AUTHOR AUTHOR'S ORGANIZ ATION 06/03/2024 [facility] DATE CREATED AUTHOR AUTHOR'S ORGANIZ ATION 07/04/2024 [facility] DATE CREATED AUTHOR AUTHOR'S ORGANIZ ATION 11/30/2024 [facility] Celena, Josias Reynolds MD - 07/03/2018 4:17 PM EDT H&P Notes (unrecognized sect ion and content) Josias Singh M.D. [facility] [place] [place] [address] June 28, 2018 Steve Barrios MD [address] [place], [place] [id number] RE: Krishan Burnham : [address] Barrios: CHIEF COMPLAINT: 1. Chest pain. 2. Hospitalization at [facility] on 06/25, for chest discomfort. HISTORY [...] 05/23/2013, was abnormal. He went to the DC and had a cardiac catheterization in [place] at [facility] and he was told that it [...] did not resolve and therefore, went to [facility] and was admitted overnight. His troponins [...] Other Family Members: Positive. Father had an CO at 52. Smoking: Negative. Diabetes: Negative. MEDICATIONS: [...] Catheterization is 2000 and on 09/24/2013, at [facility] and told it was okay.. 6. He has had cholecystectomy. 7. Vasectomy. 8. Appendectomy. FAMILY HISTORY: Father had CO at age 52. Mother had heart disease. Two brothers, 55 and 49, are in good health. SOCIAL HISTORY: He is for the second time for 13 years, has a total of 6 children with 4 children at home; ages 17, 15, 14, and 5; 17-year-old girl is a senior, goes to [employer] for nursing, will graduate within the next month. He does not smoke or drink alcohol. 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 LABORATORY DATA: From [facility] on 06/26/2018. His white count was [...] exercise consistent with angina. 2. Hospitalization at [facility] on 06/25/2018, being discharged on 06/26 with negative troponins. 3. Abnormal Myoview stress test with inferolateral ischemia on 12/29/2017. 4. Normal LV function, EF of 60% by an echocardiogram on 12/29/2017. 5. Normal cardiac catheterization in 2000. 6. Catheterization at [facility] in 2013, where he was told everything was okay, although I do not have the actual report. 7. Hypertension, well controlled. 8. Hyperlipidemia, well controlled. 9. Parkinsonism since 2010, well controlled. 10. Strong family history of coronary artery disease with father having a CO at 52. PLAN: Proceed with cardiac catheterization on 07/04 in [employer]. DISCUSSION: Mr. Burnham is on full medical therapy with nitrates and beta blockers. However, he continues to have chest pain and was recently hospitalized at [facility] for chest pain. His stress test [...] allowing me the privilege of seeing Mr. Burhnam. If you have any questions on my thoughts, please do not hesitate to contact me. Sincerely, JOSIAS SINGH [id number] Doc#: [id number] documented in this encounter Quick Note - Linda Corrales RN - 07/04/2018 1:02 PM EDTQuick Note - Linda Corrales RN - 07/04/2018 12:43 PM EDTQuick Note - Linda Corrales RN - 07/04/2018 9:45 AM EDT Miscellaneous Notes (unrecog nized section and content) Discharge instructions reviewed, instructed patient to STOP taking Imdur per Dr. Signh's orders, voiced understanding, copy of instructions given to patient Sat HOB up 60 degrees, no change in R groin site, ordered lunch, no signs of distress Dr. Singh here to talk with patient & spouse Back to room via cart, moved to bed via MAT system, R groin safeguard intact, R PPP, no signs of distress, VS stable, call light within reach documented in this encounter Goals (unrecognized section and content) Goals may be documented in a n alternate sectionGoals may be documented in an alternate sectionGoals may be documented in an alternate sectionGoals may be documented in an alternate sectionGoals may be documented in an alternate sectionGoals may be documented in an alternate sectionGoals may be documented in an alternate sectionGoals may be documented in an alternate section No data available for this sectionGoals may be documented in an alternate section No data available for this sectionGoals may be documented in an alternate sectionGoals may be documented in an alternate sectionGoals may be documented in an alternate section Care Teams (unrecognized sec tion and content) Team Status: Active Member Role Status Dates [facility] Primary Care Provider Active Team Status: Active Member Role Status Dates [facility] Primary Care Provider Active Dr. Flavio Concepcion MD Emergency Provider Active Dr. Jamee Phillips MD Admit Provider, Other Provider Active Dr. Frankie Smith MD Other Provider Active Dr. Gamal French DO Attending Provider, Other Provide r Active Dr. Marylu Lynn MD Other Provider Active Dr. Manjinder Mcnally MD Other Provider Active Dr. Rory Garcia MD Other Provider Active Ana Lilia Whitaker SUMO WRESTLER, [employer]O WRESTLER-C Other Provider Active Dr. Jose Maria Bedoya DO Referring Provider, Other Provid er Active Team Status: Active Member Role Status Dates [facility] Primary Care Provider Active Dr. Flavio Concepcion MD Emergency Provider Active Dr. Jamee Phillips MD Admit Provider, Other Provider Active Dr. Frankie Smith MD Other Provider Active Dr. Gamal French DO Other Provider Active Dr. Marylu Lynn MD Other Provider Active Dr. Manjinder Mcnally MD Other Provider Active Dr. Rory Garcia MD Other Provider Active Ana Lilia Whitaker SUMO WRESTLER, SUMO WRESTLER-C Other Provider Active Dr. Jose Maria Bedoya DO Attending Provider, Other Provid er Active Team Status: Active Member Role Status Dates [facility] Primary Care Provider Active Dr. Cristina Duncan MD Attending Provider Active Team Status: Inactive Member Role Status Dates [facility] Primary Care Provider, Referring Provider Active Collin MISHRA, PA Attending Provider Active Team Status: Inactive Member Role Status Dates [facility] Primary Care Provider Active Dr. Flavio Concepcion MD Emergency Provider Active Dr. Jamee Phillips MD Admit Provider, Other Provider Active Dr. Frankie Smith MD Other Provider Active Dr. Gamal French DO Other Provider Active Dr. Marylu Lynn MD Other Provider Active Dr. Manjinder Mcnally MD Other Provider Active Dr. Rory Garcia MD Other Provider Active Ana Lilia Whitaker SUMO WRESTLER, SUMO WRESTLER-C Other Provider Active Dr. Jose Maria Bedoya DO Attending Provider Active Team Status: Active Member Role Status Dates [facility] Primary Care Provider Active Dr. Xavi Orlando DO Emergency Provider Active Dr. Jake Franklin DO Admit Provider, Attending Pr ovider Active Team Status: Active Member Role Status Dates Kev Lugo [employer] WRESTLER, SUMO WRESTLER-C Primary Care Provider Active Team Status: Inactive Member Role Status Dates Kev Lugo [employer] WRESTLER, SUMO WRESTLER-C Primary Care Provider, Referring P rovider Active TAD Mills Attending Provider Active Team Status: Active Member Role Status Dates Kev Lugo SUMO WRESTLER, SUMO WRESTLER-C Primary Care Provider Active Dr. Flavio Concepcion MD Emergency Provider Active Dr. Jamee Phillips MD Admit Provider, Referring Provider, Other Provider Active Dr. Gamal French DO Attending Provider, Other Provide r Active Dr. Frankie Smith MD Other Provider Active Dr. Manjinder Mcnally MD Other Provider Active Dr. Rory Garcia MD Other Provider Active Ana Lilia Whitaker SUMO WRESTLER, SUMO WRESTLER-C Other Provider Active Dr. Leonora Dunbar DO Other Provider Active Team Status: Active Member Role Status Dates Kev Brittney [employer] WRESTLER, [employer] WRESTLER-C Primary Care Provider Active Dr. Jose Seth MD Attending Provider Active Team Status: Active Member Role Status Dates Kev Brittney [employer] WRESTLER, [employer]O WRESTLER-C Primary Care Provider Active Dr. Flavio Concepcion MD Emergency Provider Active Dr. Jamee Phillips MD Admit Provider, Other Provider Active Dr. Gamal French DO Other Provider Active Dr. Frankie Smith MD Other Provider Active Dr. Manjinder Mcnally MD Other Provider Active Dr. Rory Garcia MD Other Provider Active Ana Lilia Whitaker SUMO WRESTLER, SUMO WRESTLER-C Other Provider Active Dr. Leonora Dunbar DO Attending Provider, Other Provide r Active Team Status: Active Member Role Status Dates Kev Brittney [employer] WRESTLER, SUMO WRESTLER-C Primary Care Provider Active Dr. Flavio Concepcion MD Emergency Provider Active Dr. Jamee Phillips MD Admit Provider, Other Provider Active Dr. Gamal French DO Attending Provider, Other Provide r Active Dr. Frankie Smith MD Other Provider Active Dr. Manjinder Mcnally MD Other Provider Active Dr. Rory Garcia MD Other Provider Active Ana Lilia Whitaker SUMO WRESTLER, SUMO WRESTLER-C Other Provider Active Dr. Leonora Dunbar DO Other Provider Active Team Status: Inactive Member Role Status Dates Kev Linaresder SUMO WRESTLER, SUMO WRESTLER-C Primary Care Provide r, Attending Provider, Referring Provider Active Team Status: Inactive Member Role Status Dates Kev Linaresder SUMO WRESTLER, SUMO WRESTLER-C Primary Care Provider Active TAD Mills Attending Provider, Referring Pro vider Active Team Status: Inactive Member Role Status Dates Kev Linaresder SUMO WRESTLER, SUMO WRESTLER-C Primary Care Provider Active Dr. Flavio Concepcion MD Emergency Provider Active Dr. Jamee Phillips MD Admit Provider, Other Provider Active Dr. Gamal French DO Other Provider Active Dr. Frankie Smith MD Other Provider Active Dr. Manjinder Mcnally MD Other Provider Active Dr. Rory Garcia MD Other Provider Active Ana Lilia Whitaker SUMO WRESTLER, SUMO WRESTLER-C Other Provider Active Dr. Leonora Dunbar DO Attending Provider Active Team Status: Active Member Role Status Dates Kev Brittney [employer] WRESTLER, SUMO WRESTLER-C Primary Care Provider Active Dr. Leonora Dunbar DO Attending Provider, Referring Pro vider Active Team Status: Inactive Member Role Status Dates Kev Lugo [employer] WRESTLER, SUMO WRESTLER-C Primary Care Provider Active Dr. Bib Beavers DO Attending Provider, Emergency Provide r Active Team Status: Inactive Member Role Status Dates Kev Lugo [employer] WRESTLER, SUMO WRESTLER-C Primary Care Provider Active Dr. Tarsha Power DO Emergency Provider Active Team Status: Inactive Member Role Status Dates Kev Lugo [employer] WRESTLER, [employer]O WRESTLER-C Primary Care Provider Active Dr. Tarsha Power DO Attending Provider, Emergency P rovider Active Team Status: Inactive Member Role Status Dates Kev Lugo SUMO WRESTLER, SUMO WRESTLER-C Primary Care Provider Active Dr. Deo Rodriguez DO Emergency Provider Active Team Status: Inactive Member Role Status Dates Kev Lugo SUMO WRESTLER, SUMO WRESTLER-C Primary Care Provider, Referring P rovider Active Lala Hannah SUMO WRESTLER, SUMO WRESTLER-C Attending Provider Active Team Status: Inactive Member Role Status Dates Kev Lugo SUMO WRESTLER, SUMO WRESTLER-C Primary Care Provider Active Dr. Deo Rodriguez DO Attending Provider, Emergency Pro vider Active Team Status: Active Member Role Status Dates Kev Lugo SUMO WRESTLER, SUMO WRESTLER-C Primary Care Provider Active Lala Hannah SUMO WRESTLER, SUMO WRESTLER-C Attending Provider, Referrin g Provider Active Team Status: Inactive Member Role Status Dates Kev Brittney [employer] WRESTLER, [employer] WRESTLER-C Primary Care Provider Active Lala Hannah SUMO WRESTLER, SUMO WRESTLER-C Attending Provider Active Team Status: Inactive Member Role Status Dates Kev Brittney [employer] WRESTLER, [employer] WRESTLER-C Primary Care Provider Active Lalaobed Hannah SUMO WRESTLER, SUMO WRESTLER-C Attending Provider, Referrin g Provider Active Team Status: Active Member Role Status Dates Kev Lugo SUMO WRESTLER, SUMO WRESTLER-C Primary Care Provider, Referring P rovider Active Dr. Timur Abreu DO Attending Provider, Other Prov ider Active Team Status: Inactive Member Role Status Dates Kev Lugo SUMO WRESTLER, SUMO WRESTLER-C Primary Care Provider, Referring P rovider Active Dr. Timur Abreu DO Attending Provider Active Team Status: Inactive Member Role Status Dates Kev Lugo SUMO WRESTLER, SUMO WRESTLER-C Referring Provider Active Dr. Timur Abreu DO Attending Provider Active [facility] Primary Care Provider Active Team Status: Inactive Member Role Status Dates [facility] Primary Care Provider Active MOSES LOWRY Attending Provider, Referring Provider Active Team Status: Active Member Role Status Dates [facility] Primary Care Provider Active Dr. Flavio Concepcion MD Emergency Provider Active Dr. Jamee Phillips MD Admit Provider, Attending Prov ider Active Dr. Frankie Smith MD Other Provider Active Dr. Gamal French , Other Provider Active Dr. Marylu Lynn MD Other Provider Active Dr. Manjinder Mcnally MD Other Provider Active Dr. Rory Garcia MD Other Provider Active Ana Lilia Whitaker SUMO WRESTLER, SUMO WRESTLER-C Other Provider Active Team Status: Active Member Role Status Dates [facility] Primary Care Provider Active Dr. Xavi Orlando , DO Emergency Provider Active Dr. Jake Franklin , DO Admit Provider , Attending Provider, Other Provider Active Team Status: Active Member Role Status Dates [facility] Primary Care Provider Active Dr. Xavi Orlando DO Emergency Provider Active Dr. Jake Franklin DO Admit Provider, Other Provid er Active Dr. Temi Katz MD Attending Provider, Other Provid er Active Dr. Cristina Duncan MD Other Provider Active Team Status: Active Member Role Status Dates [facility] Primary Care Provider Active Dr. Xavi Orlando DO Emergency Provider Active Dr. Jake Franklin DO Admit Provider, Other Provid er Active Dr. Temi Katz MD Other Provider Active Dr. Cristina Duncan MD Attending Provider, Other Provid er Active Team Status: Active Member Role Status Dates [facility] Primary Care Provider Active Dr. Xavi Orlando DO Emergency Provider Active Dr. Jake Franklin DO Admit Provider, Other Provid er Active Dr. Cristina Duncan MD Other Provider Active Dr. Jake Cox MD Attending Provider, Other Provid er Active Dr. Temi Katz MD Other Provider Active Team Status: Active Member Role Status Dates [facility] Primary Care Provider Active Dr. Xavi Orlando DO Emergency Provider Active Dr. Jake Franklin DO Admit Provider, Other Provid er Active Dr. Cristina Duncan MD Other Provider Active Dr. Jake Cox MD Other Provider Active Dr. Temi Katz MD Other Provider Active Dr. Jose Seth MD Attending Provider Active Team Status: Active Member Role Status [facility] Primary Care Provider Active Dr. Jose Seth MD Attending Provider, Referring Pro vider Active Team Status: Inactive Member Role Status Dates [facility] Primary Care Provider Active Dr. Xavi Orlando DO Emergency Provider Active Dr. Jake Franklin DO Admit Provider, Other Provid er Active Dr. Cristina Duncan MD Other Provider Active Dr. Jake Cox MD Attending Provider Active Dr. Temi Katz MD Other Provider Active Team Status: Inactive Member Role Status Dates [facility] Primary Care Provider Active Collin MISHRA, PA Attending Provider Active Mail Inserter Relationship Specialty Start Date End Date Jose Maria Deras [facility] [place] [id number] PCP - General Family Medicine 11/26/10 Jorge Anguiano [facility] [place] [address] Primary Staff Physician Cardiology 05/15/18 Team Status: Active Member Role/Relationship Status Dates [facility] Primary Care Provider Active Team Status: Inactive Member Role/Relationship Status Dates [facility] Primary Care Provider Active Start: September 17, 2024 End: September 17, 2024 Dr. Bib Beavers DO Emergency Provider Active Start : September 17, 2024 End: September 17, 2024 Team Status: Inactive Member Role/Relationship Status Dates [facility] Primary Care Provider Active Start: September 17, 2024 End: September 17, 2024 Dr. Bib Beavers DO Attending Provider Active Start : September 17, 2024 End: September 17, 2024 Dr. Bib Beavers DO Emergency Provider Active Start : September 17, 2024 End: September 17, 2024 Team Status: Inactive Member Role/Relationship Status Dates [facility] Primary Care Provider Active Start: October 27, 2024 End: October 27, 2024 Dr. Javy Navarro MD Emergency Provider Active S tart: October 27, 2024 End: October 27, 2024 Team Status: Active Member Role/Relationship Status Dates [facility] Primary care physician Active Team Status: Inactive Member Role/Relationship Status Dates [facility] Primary care physician Active Start : September 17, 2024 End: September 17, 2024 Dr. Bib Beavers DO Attending physician Active Star t: September 17, 2024 End: September 17, 2024 Dr. Bib Beavers DO Emergency Department Physician Active Start: September 17, 2024 End: September 17, 2024 Team Status: Inactive Member Role/Relationship Status Dates [facility] Primary care physician Active Start : October 27, 2024 End: October 27, 2024 Dr. Javy Navarro MD Attending physician Active Start: October 27, 2024 End: October 27, 2024 Dr. Javy Navarro MD Emergency Department Physician Ac tive Start: October 27, 2024 End: October 27, 2024 Team Status: Inactive Member Role/Relationship Status Dates [facility] Primary care physician Active Start : November 25, 2024 End: November 25, 2024 [facility] Referring Provider Active Start: Se ptember 2024 End: November 25, 2024 Dr. Jay Chavez MD Attending physician Active Start: November 25, 2024 End: November 25, 2024 Source Comments (unrecognize d section and content) In the event this informatio n is protected by the Federal Confidentiality of Alcohol and Drug Abuse Patient Records regulations: The Federal rules restrict any use of the information to criminally investigate or prosecute any alcohol or drug abuse patient.[facility] Reason for Visit (unrecogniz ed section and content) Reason Comments Viral Infections Entered by patient Sinus Problem Sinus congestion x1 day Derm Problem Sore on inside of R nostril x1 week, possible Staph FOR RECORDS PERTAINING TO PATIENTS WHO ARE [...] BE BASED ON THE PRIMARY CLINICAL RECORDS. [facility]. provides no warranty or guarantee of the accuracy or completeness of information in this document.
[2024-12-01 12:40] LABS: Hematocrit 43.6 % (40-54); Hemoglobin 15.7 g/dL (13.0-16.5); Immature Granulocytes Count 0.010 X10^3/uL (0.0-0.0); Mean Corp Hgb Conc 36.0 g/dL (32-36); Mean Corpuscular Volume 82.0 fL (80-94); Mean Platelet Vol. 9.4 fl (6.2-12.0); NRBC Flagged by Analyzer 0 % (0-5); Platelet Count 158 K/mm3 (150-450); RBC Distribution Width CV 13.2 % (11.6-14.6); RBC Distribution Width SD 38.3 fl (35.1-43.9); Red Blood Count 5.32 M/mm3 (4.6-6.2); White Blood Count 6.3 K/mm3 (4.4-11.0)
[2024-12-01 12:46] LABS: Prothrombin Time (Protime)PT. 12.1 SECONDS (11.7-14.9)
[2024-12-01 12:47] LABS: Partial Thromboplast Time 26.1 Seconds (24.1-36.2)
[2024-12-01 13:26] LABS: Troponin T High Sensitivity 9 ng/L (<=22)
[2024-12-01 13:35] LABS: Anion Gap 20 (5-15); BUN 14 mg/dL (4-19); BUN/Creat Ratio 13.4 RATIO (10-20); Calcium,Total 9.2 mg/dL (7.6-11.0); Carbon Dioxide 13.0 mmol/L (21.0-32.0); Chloride 102 mmol/L (98-108); Estimated Creatinine Clearance 92.15 ml/min (50-250); Glucose 178 mg/dL (70-99); Potassium 4.3 mmol/L (3.3-5.1)
--- NOTE | 2024-12-01 14:09 | HP.PCM.HOS_ITS ---
HPI - General General Date of Admission: 12/01/24 Date of Service: 12/01/24 Chief Complaint: Left sided weakness HPI Narrative KRISHAN BURNHAM, is a 59-year-old male history of GERD, Parkinson's, hypertension, diabetes, CVA, depression and anxiety who presented [facility] ED 12/01/2024 due to waking up with left neck pain, left-sided tunnel vision, left-sided weakness and pain with swallowing. Stroke call made in the ED. Temp 98.7, heart rate of 80, blood pressure 155/98, respirate 16 pulse ox 98% on room air. CBC unremarkable, troponin 9, BMP with bicarb of 13 and a gap of 20 with glucose 178 otherwise within normal limits CT brain and CT head and neck no acute process, teleneurology evaluated and recommended admission for stroke rule out. Hospitalist contacted for admission. Patient evaluated at bedside. Pt reportedly woke up this AM with a right sided headache, left eye tunnel vision, whole left half of his face with tingling as well as reported weakness of left upper and lower extremity but primarily was reporting increase in joint pain in all of the joints on his left side. Additionally he reported some increased difficulty swallowing, has had difficulty swallowing recently and is supposed to undergo an outpatient swallow eval but said this morning he noticed it was worse. Presently in the ED still has slight headache and reports all of the symptoms are better than they were but still present. Denies fevers or chills, does have chronic abdominal pain with intermittent diarrhea and constipation and some nausea for which she is scheduled to undergo outpatient colonoscopy and upper endoscopy. [facility] Medical History BMI 34.0-34.9,adult Left ventricular hypertrophy Chronic prescription benzodiazepine use Type 2 diabetes mellitus Testosterone deficiency in male Diverticulosis Sprain and strain of left hand COVID-19 Alternating constipation and diarrhea Wrist pain De Quervain's tenosynovitis, right Cough Cellulitis of right wrist Acute stroke due to ischemia Lupus Wears glasses History of hiatal hernia CPAP (continuous positive airway pressure) dependence Acute cerebrovascular accident (CVA) due to ischemia COVID-19 vaccine series completed Former smoker Hypertension Hyperlipidemia HTN (hypertension) Parkinsons disease GERD (gastroesophageal reflux disease) Constipation Sleep apnea Depression with anxiety Abdominal pain Diverticulitis Home Medications ?Medication ?Instructions ?Recorded ?Last Taken ?Type melatonin 3 mg tablet 9 mg PO QHS SLEEP 05/12/19 0 03/15/23 History trazodone 100 mg tablet 300 mg PO QHS SLEEP 05/12/19 08/01/23 History famotidine 20 mg tablet 20 mg PO BID GERD 02/17/20 0 08/02/23 History propranolol 10 mg tablet 10 mg PO BID HYPERTENSION AN D 02/16/21 08/02/23 History ANXIETY carbidopa ER 36.25 mg-levodopa 145 4 cap PO 4X/DAY Par kinsons 11/30/21 08/02/23 History mg capsule,extended release (Rytary) cholecalciferol (vitamin D3) 50 50 mcg PO DAILY SUPPLE MENT 11/30/21 08/02/23 History mcg (2,000 unit) tablet diltiazem HCl 60 mg tablet 60 mg PO BID HYPERTENSION/A DARRYL 11/30/21 03/16/23 History empagliflozin 25 mg tablet 25 mg PO DAILY DIABETES 06/1808/02/23 History (Jardiance) prazosin 5 mg capsule 10 mg PO QHS HYPERTENSION 08/02/23 History duloxetine 60 mg capsule,delayed 120 mg PO DAILY DEPRE SSION 03/29/22 08/02/23 History release diclofenac sodium 1 % topical gel 4 g topical BID PRN OSTEOARTHRITIS 03/16/23 Unknown History gabapentin 300 mg capsule 300 mg PO QHS RESTLESS LEG S YNDROME 03/16/23 03/15/23 History sildenafil 100 mg tablet 100 mg PO DAILY PRN sexual a ctivity 03/16/23 Unknown History pantoprazole 40 mg tablet,delayed 40 mg PO QDAY GERD 0 11/25/24 Unknown History release rosuvastatin 20 mg tablet 20 mg PO QDAY HIGH CHOLESTER OL 11/25/24 Unknown History testosterone cypionate 200 mg/mL 200 mg IM Q2W LOW PARAM TOSTERONE 11/25/24 Unknown History intramuscular oil (Depo-Testosterone) clonazepam 1 mg tablet (Klonopin) 1 mg PO QHS PANIC DI SORDER 12/01/24 Unknown History clopidogrel 75 mg tablet 75 mg PO DAILY STROKE PREVEN TION 12/01/24 Unknown History hydrochlorothiazide 12.5 mg capsule 12.5 mg PO DAILY H YPERTENSION 12/01/24 Unknown History quetiapine 25 mg tablet 75 mg PO QHS NIGHT TERRORS 1 Unknown History Allergy/AdvReac Type Severity Reaction Status Date / Time No Known Allergies Allergy Verified 12/01/24 12:27 Family History (Updated 11/25/24 @ 08:39 by Aisha Mckeon) Mother Heart disease Hypertension High cholesterol Cancer skin cancer Thyroid disorder Diabetes Father Heart disease High cholesterol Hypertension CVA (cerebral vascular accident) Surgical History S/P arthroscopic surgery of left knee History of colectomy (~02/2020) History of laparoscopic cholecystectomy History of appendectomy Social History household members: spouse number of children: 5 current occupational status: unemployed Smoking Status: Former smoker how long ago did patient quit smoking: Quit ~ 15 years prior, smoked socially only. alcohol intake: never substance use type: does not use ROS ROS Narrative General: Denies fever/chills HENT: Right posterior headache, denies stuffy nose, denies sore throat but does report trouble swallowing EYES: Tunnel vision left eye Resp: Denies cough, denies shortness of breath Cardiac: Denies chest pain GI: Has had chronic abdominal pain and intermittent diarrhea and constipation for which she is being worked up on an outpatient basis : Denies changes in urination Extremity: Denies swelling MSK: Weakness in upper and lower left extremities, joint pains on all of the joints on the left Neuro: Reports some paresthesias on left side of face Heme: Denies any bleeding or bruising Skin: Denies rashes Psychiatric: No complaints voiced Vital Signs Vital Signs Vital Signs: 12/01/24 12:26 12/01/24 12:26 12/01/24 12:28 Temperature 98.7 F Temperature Source Oral Pulse Rate 80 80 Respiratory Rate 16 14 Respiratory Effort Respiratory Pattern Blood Pressure 155/90 H 155/90 H Blood Pressure Mean 111 111 Pulse Ox 98 98 Oxygen Delivery Method Room Air Room Air Room Air 12/01/24 12:53 12/01/24 13:16 12/01/24 13:33 Temperature Temperature Source Pulse Rate 75 75 71 Respiratory Rate 16 14 18 Respiratory Effort Respiratory Pattern Blood Pressure 153/83 H 106/74 129/76 H Blood Pressure Mean 106 84 93 Pulse Ox 97 98 97 Oxygen Delivery Method Room Air Room Air Room Air 12/01/24 13:39 Temperature Temperature Source Pulse Rate Respiratory Rate Respiratory Effort Normal Respiratory Pattern Normal Blood Pressure Blood Pressure Mean Pulse Ox Oxygen Delivery Method Weight Weight: 102.058 kg Body Mass Index (BMI) 31.4 Physical Exam Narrative General: Alert, oriented, no apparent distress HEENT: Atraumatic, normocephalic Eyes: Anicteric, normal conjunctiva, extraocular movements intact, pupils equal Neck: Supple Respiratory: Clear to auscultation bilaterally, normal respiratory effort Cardiovascular: Regular rate and rhythm GI: Soft, mild tenderness without rebound, guarding, rigidity Extremities: No edema Musculoskeletal: Strength 5 out of 5 in right upper extremity, 5 out of 5 left upper extremity, 5 out of 5 right lower extremity, 4+ out of 5 left lower extremity though there seem to be effort with 5 out of 5 at the beginning of left lower extremity test with subsequent decrease and drop Neuro: Subjective decreased sensation on entire left side of face, aside from the above otherwise cranial nerves II through XII intact, [id number] without significant difficulty bilaterally Skin: No rashes appreciated Psych: Cooperative Results Lab / Micro Data 12/01/24 12:30 12/01/24 12:30 Labs: Laboratory Results - last 24 hr 12/01/24 12:30: WBC 6.3, RBC 5.32, Hgb 15.7, Hct 43.6, MCV 82.0, MCH 29.5, MCHC 36.0, RDW Std Deviation 38.3, RDW Coeff of Gail 13.2, Plt Count 158, MPV 9.4, Immature Gran % (Auto) 0.200, Neut % (Auto) 62.1, Lymph % (Auto) 25.0, [place] % (Auto) 8.4, Eos % (Auto) 3.7, Baso % (Auto) 0.6, Absolute Neuts (auto) 3.9, Absolute Lymphs (auto) 1.57, Nucleated RBC % 0, PT 12.1, INR 0.9, APTT 26.1, Sodium 135, Potassium 4.3, Chloride 102, Carbon Dioxide 13.0 L, Anion Gap 20 H, BUN 14, Creatinine 1.05, Estim Creat Clear Calc 92.15, Est GFR (MDRD) Non-Af 82, BUN/Creatinine Ratio 13.4, Glucose 178 H, Calcium 9.2, Troponin T High Sens 9 D Imaging Radiology Impression Brain CT 12/01/24 12:28 IMPRESSION: No acute intracranial abnormality. No evidence of large territorial ischemic infarct. Normal CTA of the head and neck and [id number]. Stroke Alert: No acute intracranial abnormality. No large vessel occlusion. No large territorial infarct. The critical findings in the findings and impression above were relayed directly by me by telephone to Ermias German on 12/01/2024 at 12:58 pm with readback verification. Reading Location: [facility] Head/Neck CTA 12/01/24 12:28 IMPRESSION: No acute intracranial abnormality. No evidence of large territorial ischemic infarct. Normal CTA of the head and neck and [id number]. Stroke Alert: No acute intracranial abnormality. No large vessel occlusion. No large territorial infarct. The critical findings in the findings and impression above were relayed directly by me by telephone to Ermias German on 12/01/2024 at 12:58 pm with readback verification. Reading Location: [facility] Assessment & Plan Assessment/Plan (1) Neurologic abnormality: PLAN: Plan # Left-sided weakness and facial paresthesias -Patient multiple complaints, left-sided weakness, joint pain in his left joints, difficulty swallowing, paresthesias on the entire left side of his head, right sided headache -Admit to tele -CT head w/ no acute process -CTA head and neck no LVO -MRI ordered -NIH q4hr -asa, Plavix statin -Echo -PT/OT/Speech eval -Teleneuro consult placed -Hold BP medications to allow for permissive hypertension for 24 hours unless SBP greater than 220 or DBP greater than 120 or until stroke is ruled out # History of CVA - Previously got TNK and was admitted to our med rehab - Continue statin, patient on aspirin and Plavix, appears he was not actually taking Plavix at home # Parkinson's disease - continue home Sinemet - supportive care #Type 2 diabetes mellitus -Glucose checks and sliding scale insulin #Hypertension - Holding home meds as above #Depression/anxiety -Continue home medications #GERD -Continue PPI #DVT ppx: SCDs Temi Katz MD Charges/Coding Visit Charges Inpatient E&M: 99524 Init Hosp L2
[2024-12-01 14:16] LABS: Mucous, Urine 0 SEEN /hpf (<or=2+); Red Blood Cells-Urine 0 SEEN /hpf (0-5); Squamous Epithelial Cells - UA 0 SEEN /hpf (0-5)
[2024-12-01 14:17] LABS: Color, Urine Yellow (Yellow); Glucose, Dipstick 1000 mg/dl (Normal); Ketone-Dipstick 5 mg/dl (Negative); Leukocyte Esterase-Dipstick Negative /ul (Negative); Nitrite-Dipstick Negative (Negative); Occult Blood-Urine Negative /ul (Negative); Protein-Dipstick 15 mg/dl (Negative); Specific Gravity, Urine 1.010 (1.002-1.030); Urine Bilirubin Dipstick Negative (Negative)
[2024-12-01 14:17] LABS: SITE Not entered; VBG BASE EXCESS 3 mmol/L (-1.0-3.5); VBG PO2 38 mmHg (25-40); VBG SO2 76 % (50-70); VBG TCO2 28 mmol/L (23-33)
--- OUTSIDE RECORDS SUMMARY | 2024-12-01 14:23 | XMS RPT_ITS | CCD ---
Author Organization [facility] Care Team Providers Care Staff Nurse Midwife Name Role Phone Maki, Lisa L Unavailable [...] Unavailable Unavailable ADRIAN, VENKATAKRISHNAN Unavailable Unavail able [place] Unavailable Unavailable MAHFOOZ, SKY Unavailable Unavailable TEDDY, [...] Unavailable Unavailable Lisa Gambino Primary Care Provider [phone] Nivia Cazares Unavailable Hannah, Thuy D Unavailable Unavailable Unavailable Dr. Di Walden Primary Care Provider [phone] Dr. Di Walden Attending Provider [phone] Dr. Di Walden Referring Provider [phone] Brittney NURSE MIDWIFE/CLINICAL INSTRUCTOR, NURSE MIDWIFE/CLINICAL INSTRUCTOR-C Kev Attending Provider [phone] Dr. Tarun Farley Attending Provider [phone] Dr. Di Walden Primary Care Provider [phone] Dr. Di Walden Referring Provider [phone] Lugo NURSE MIDWIFE/CLINICAL INSTRUCTOR, NURSE MIDWIFE/CLINICAL INSTRUCTOR-C Kev Referring Provider [phone] Lugo NURSE MIDWIFE/CLINICAL INSTRUCTOR, NURSE MIDWIFE/CLINICAL INSTRUCTOR-C Kev Primary Care Provider TAD Sanders Attending Provider Unavailab le Lugo NURSE MIDWIFE/CLINICAL INSTRUCTOR, NURSE MIDWIFE/CLINICAL INSTRUCTOR-C Kev Referring Provider [phone] Dr. Flavio Concepcion Emergency Provider Dr. Jamee Phillips Admit Provider Dr. Jamee Phillips Other Provider Dr. Gamal French Attending Provider Dr. Gamal French Other Provider Dr. Frankie Smith Other Provider Dr. Manjinder Mcnally Other Provider Dr. Rory Garcia Other Provider Unavailab landry Whitaker NURSE MIDWIFE/CLINICAL INSTRUCTOR, NURSE MIDWIFE/CLINICAL INSTRUCTOR-C Ana Lilia Other Provider Dr. Leonora Dunbar Other Provider Dr. Jose Seth Attending Provider Dr. Leonora Dunbar Attending Provider Lugo NURSE MIDWIFE/CLINICAL INSTRUCTOR, NURSE MIDWIFE/CLINICAL INSTRUCTOR-C Kev Primary Care Provider Lugo NURSE MIDWIFE/CLINICAL INSTRUCTOR, NURSE MIDWIFE/CLINICAL INSTRUCTOR-C Kev Referring Provider TAD Sanders Attending Provider Unavailab Dr. Flavio Garcia Emergency Provider Dr. Jamee Phillips Admit Provider Dr. Jamee Phillips Referring Provider Dr. Jamee Phillips Other Provider Dr. Gamal French Attending Provider Dr. Gamal French Other Provider Dr. Frankie Smith Other Provider Dr. Manjinder Mcnally Other Provider Dr. Rory Garcia Other Provider Unavailab landry Whitaker NURSE MIDWIFE/CLINICAL INSTRUCTOR, NURSE MIDWIFE/CLINICAL INSTRUCTOR-C Ana Lilia Other Provider Dr. Leonora Dunbar Other Provider Dr. Jose Seth Attending Provider Dr. Leonora Dunbar Attending Provider Lugo NURSE MIDWIFE/CLINICAL INSTRUCTOR, NURSE MIDWIFE/CLINICAL INSTRUCTOR-C Kev Attending Provider Lugo NURSE MIDWIFE/CLINICAL INSTRUCTOR, NURSE MIDWIFE/CLINICAL INSTRUCTOR-C Kev Primary Care Provider Lugo NURSE MIDWIFE/CLINICAL INSTRUCTOR, NURSE MIDWIFE/CLINICAL INSTRUCTOR-C Kev Referring Provider [phone] TDA Sanders Attending Provider Unavailab le Brittney NURSE MIDWIFE/CLINICAL INSTRUCTOR, NURSE MIDWIFE/CLINICAL INSTRUCTOR-C Kev Primary Care Provider Brittney NURSE MIDWIFE/CLINICAL INSTRUCTOR, NURSE MIDWIFE/CLINICAL INSTRUCTOR-C Kev Referring Provider [phone] Camden NURSE MIDWIFE/CLINICAL INSTRUCTOR, NURSE MIDWIFE/CLINICAL INSTRUCTOR-C Lala Higgins Attending Provider [phone] Friend, Dr. Ding Attending Provider [phone] Brady, Dr. Ding Other Provider [phone] ARIANNE STRAUSS, [facility] Primary Care Physician Brittney NURSE MIDWIFE/CLINICAL INSTRUCTOR, NURSE MIDWIFE/CLINICAL INSTRUCTOR-C Kev Referring Provider [phone] Friend, Dr. Ding Attending Provider [phone] [facility], [place] Primary Care Provider Unavailabl [place], [place] Primary Care Provider Unavailabl e Dr. Flavio Concepcion Emergency Provider Dr. Jamee Phillips Admit Provider Dr. Jamee Phillips Other Provider Dr. Frankie Smiht Other Provider Dr. Gamal French Attending Provider Dr. Gamal French Other Provider Dr. Marylu Lynn Other Provider Unavailable Dr. Manjinder Mcnally Other Provider [phone] Rory Garcia Other Provider Unavailab landry Whitaker NURSE MIDWIFE/CLINICAL INSTRUCTOR, NURSE MIDWIFE/CLINICAL INSTRUCTOR-C Ana Lilia Other Provider Dr. Jose Maria Bedoya Referring Provider Dr. Jose Maria Bedoya Other Provider Dr. Jose Maria Bedoya Attending Provider Dr. Cristina Duncan Attending Provider [phone] [place], [place] Referring Provider Unavailable TAD Hillman Attending [...] Primary Care Provider Jorge Anguiano Sarah Unavailable [phone] JOSE MARIA DERAS Primary Care Unavailable VINOD ACUÑA CNP Primary Care Unavailab CARMELA Davis DO Attending [facility], [place] Primary Care Provider Unavailabl e Landry HAN, Dr. Mccartney Emergency Provider Dr. Bib Beavers DO Attending Provider [phone] Ramon REDD, Dr. Palafox Emergency Provider [phone] [facility], [place] Primary Care Physician Unavailab Dr. Bib Maloney Attending Physician Dr. Bib Beavers DO Emergency Department Physician Dr. Javy Navarro MD Attending Physician [phone] Dr. Javy Navarro MD Emergency Department Physici an [facility], [place] Primary Care Physician Unavailab [facility], [place] Referring Provider Unavailable Scott REDD, Dr. Thompson Attending Physician Gavin Purvis Attending [facility] Referring Unavailable [place] Primary Care Unavailable Javy Navarro Attending [facility] Primary Care Unavailable Bib Beavers Attending [facility], [place] Primary Care Unavailable [facility], [place] Primary Care Unavailable Jay Chavez Attending [facility], [place] Primary Care Unavailable Jay Chavez Attending [facility] Referring Unavailable Allergies Allergy Classification Reported Allergen(s) Allergy Type Date of Onset Reaction(s) Facility (2 sources) No Known Allergies; Translations: [No Known Allergies] Propensity to adverse reactions (disorder) 8 [facility] Medications Current Medications Medication Drug [...] 10 days Quantity: 20 Refills: 0 Hannah PROTOTYPE MODEL MAKER-KEYPUNCH OPERATOR, Thuy Start : 26-Apr-2019 Active atorvastatin 20 [...] 07, 2020 12:41pm take 4 capsules by [facility] three times daily Rytary 23.75-95 MG Oral [...] daily Start: 05-12-2019 take 2000 [IU] by [facility] once daily Cholecalciferol (Vitamin D3) Active 2000 UNIT PO DAILY May 12, 2019 10:53pm take 1 tablet by tita once daily Vitamin D3 50 MCG (1999 [place]) Oral Tablet Take 1 tablet daily Quantity: 0 Refills: 0 Ordered: 25-Apr-2019 DO Active take 2 tablets by [facility] once daily cholecalciferol, vitamin D3, 1,000 unit [...] entacapone 200 mg oral tablet (3 sources) Vvffryig-I-Lwgnlassrhplopbup Inhibitor take 1 tablet by mouth four [...] 10 days. 15 g 06/01/2024 06/11/2024 Active [place]-3 Fatty Acids (13 sources) Start: 11-30-2021 take 1000 mg by mouth once daily [place]-3 Fatty Acids Active 1000 MG PO DAILY November 29, 2021 11:00pm Start: 11-30-2021 take 1000 mg by mouth once johan ly [place]-3 Fatty Acids Active 1000 MG PO DAILY November 30, 2021 12:00am [place]-3 Fatty Acids ([place] 3) Capsule (1 source) Start: 11-30-2021 take 1 capsule by mouth once daily [place]-3 Fatty Acids ([place] 3) Capsule Active 1000 MG PO DAILY [...] 200 mg/mL oil Discontinued 200 mg IM .[id number] July 30, 2023 12:00am August 07, 2023 [...] 9:33am Start: 10-26-2020 take 1 tablet by itta th every four hours Hydrocodone-Acetaminophen Active 1 [...] November 25, 2024 8:41am Cholesterol lactobacillus acidophilus [id number] unt oral capsule (6 sources) Start: 04-26-2019 take 1 capsule by mouth once daily Probiotic Acidophilus Oral Capsule TAKE 1 CAPSULE Daily Quantity: 90 Refills: 3 Ordered: 08-Jan-2020 Thuy Mccord Start : 26-Apr-2019 Active Start: 04-26-2019 take 1 capsule by [facility] once daily Probiotic Acidophilus Oral Capsule TAKE 1 CAPSULE Daily Quantity: 30 Refills: 0 Hannah PROTOTYPE MODEL MAKER-KEYPUNCH OPERATOR, Thuy Start : 26-Apr-2019 Active levodopa 42 [...] FOR 28 DAYS. Quantity: 28 Refills: 0 Hannah PROTOTYPE MODEL MAKER-KEYPUNCH OPERATOR, Thuy Start : 21-May-2019 Active lidocaine 0.05 [...] 07-04-2018 nitroGLYCERIN (NITROSTAT) SL tablet 0.4 mg [place]-3 Fatty Acids Capsule (3 sources) Start: 11-30-2021 End: 11-25-2024 take 1 capsule by mouth once daily [place]-3 Fatty Acids Capsule Discontinued 1000 mg PO DAILY November 30, 2021 12:00am November 25, 2024 8:41am SUPPLEMENT Start: 11-30-2021 take 1 capsule by mo [facility] once daily [place]-3 Fatty Acids Capsule Active 1000 mg PO [...] Start : 10-Jun-2019 Active polyethylene glycol 3350 53968 mg powder for oral solution (20 sources) [...] DRYNESS Start: 03-16-2023 Sodium Chlorid e-Aloe Vera ([place] Saline) gel Active 1 APPLIC INTRANASAL DAILY [...] [Coronary atherosclerosis of unspecified type of vessel, deering or graft] Chronic Diabetes mellitus without complication [...] Long-term current use of benzodiazepine; Translations: [Other alf (current) drug therapy] 08-10-2023 Episodic Other and [...] Surgery Visit Reporton 11-25 Surgery Visit Report [facility] [address] [place], [place] [address] OFFICE VISIT Date of Service: 11/25/24 MR#: [id number] Acct: [id number] Name: KRISHAN BURNHAM Rep #: [id number] : 1965 Provider: Dr. Jay hayes MD Age/Sex: 59/M Location: [facility] Status: Signed Intake Vital Signs 10/27/24 [...] or hoarseness (more content not included)... Normal [facility] Abdomen/Pelvis W IV Cont ONL Yon 10-27-2024 Abdomen/Pelvis W IV Cont ONLY [facility] [address] [place] [address] Abdomen/Pelvis W IV Cont ONLY MR#: [id number] Acct: [id number] Name: KRISHAN BURNHAM Rep #: [id number] : 1965 M 59 From: William Beasley MD PCP: [facility] Status: REG ER Study: Abdomen/Pelvis W IV Cont ONLY Date of Exam: Exam# [id number] Ordering Dr: Javy Navarro MD PROCEDURE: ABDOMEN/PELVIS [...] The lung bases are clear Reading [facility] CC: Dr. Javy Navarro MD; [facility] Electronic Design Engineer: Signed Normal [facility] Absolute lymphocyte countOrd ered By: Javy Navarro on 10-27-2024 Lymphocytes Auto (Unsp spec) [#/Vol] 1.29 10*3/uL 0.83-4.51 [facility] Absolute neutrophil countOrd ered By: Javy Navarro on 10-27-2024 Neutrophils (Bld) [#/Vol] 3.8 10*3/uL 2.0-7.7 [facility] Anion gap in Serum or Plasma Ordered By: Javy Navarro on 10-27-2024 Anion gap [Moles/Vol] 16 mmol/L High 5-15 [facility] Automated lymphocyte count a s percentage of total leukocytesOrdered By: Javy Navarro on 10-27-2024 Lymphocytes/100 WBC Auto (Unsp spec) 22.0 % 19-41 [facility] BUN/creatinine ratioOrdered By: Javy Navarro on 10-27-2024 Urea nitrogen/Creatinine [Mass ratio] 10.9 mg/mg 10-20 [facility] Basophil percentageOrdered B y: Javy Navarro on 10-27-2024 Basophils/100 WBC (Bld) 0.7 % 0-1 [facility] Bilirubin Test strip Ql (U)O rdered By: Javy Navarro on 10-27-2024 Bilirubin Ql (U) Negative Negative [facility] Bilirubin, totalOrdered By: Javy Navarro on 10-27-2024 Bilirubin [Mass/Vol] 0.42 mg/dL 0.00-1.30 [facility] CBC W/Diff, Automatedon 09-29 Absolute Lymph 1.29 X10 3/uL Normal 0.83-4.51 [facility] Comment on above: Performed By: #### L 500.4050, L501.2450, L100.0100 ####[facility] [address] [place], [place], [id number] Absolute Neut 3.8 X10 3/uL Normal 2.0-7.7 [facility] Comment on above: Performed By: #### L 500.4050, L501.2450, L100.0100 ####[facility] [address] [place], [address] Basophils/100 WBC (Bld) 0.7 % Normal 0-1 [facility] Comment on above: Performed By: #### L 500.4050, L501.2450, L100.0100 ####[facility] [address] [place], [address] Eosinophils/100 WBC (Bld) 3.9 % Normal 0-5 [facility] Comment on above: Performed By: #### L 500.4050, L501.2450, L100.0100 ####[facility] [address] [place], [address] Erythrocyte distribution width (RBC) [Ratio] 12.6 % Normal 11.6-14.6 [facility] Comment on above: Performed By: #### L 500.4050, L501.2450, L100.0100 ####[facility] [address] [place], [address] Hematocrit (Bld) [Volume fraction] 41.8 % Normal 40-54 [facility] Comment on above: Performed By: #### L 500.4050, L501.2450, L100.0100 ####[facility] [address] [place], [address] Hemoglobin (Bld) [Mass/Vol] 14.5 g/dL Normal 13.0-16.5 [facility] Comment on above: Performed By: #### L 500.4050, L501.2450, L100.0100 ####[facility] [address] [place], [address] IG% 0.300 Normal 0.0-0.9 [facility] Comment on above: Result Comment: IG% - Immature Granulocytes (promyelocytes, myelocytes and metamyelocytes) > 1% indicates that a LEFT SHIFT is Present. Performed By: #### L 500.4050, L501.2450, L100.0100 ####[facility] [address] [place], [address] Lymphocytes/100 WBC (Bld) 22.0 % Normal 19-41 [facility] Comment on above: Performed By: #### L 500.4050, L501.2450, L100.0100 ####[facility] [address] [place], [address] MCH (RBC) [Entitic mass] 29.4 pg Normal 27.0-32.0 [facility] Comment on above: Performed By: #### L 500.4050, L501.2450, L100.0100 ####[facility] [address] [place], [address] MCHC (RBC) [Mass/Vol] 34.7 g/dL Normal 32-36 [facility] Comment on above: Performed By: #### L 500.4050, L501.2450, L100.0100 ####[facility] [address] [place], [address] MCV (RBC) [Entitic vol] 84.8 fL Normal 80-94 [facility] Comment on above: Performed By: #### L 500.4050, L501.2450, L100.0100 ####[facility] [address] [place], [address] Monocytes/100 WBC (Bld) 9.2 % Normal 0-10 [facility] Comment on above: Performed By: #### L 500.4050, L501.2450, L100.0100 ####[facility] [address] [place], [address] Neutrophils/100 WBC (Bld) 63.9 % Normal 47-70 [facility] Comment on above: Performed By: #### L 500.4050, L501.2450, L100.0100 ####[facility] [address] [place], [address] Nucleated RBC (Bld) [#/Vol] 0 10*3/uL Normal 0-5 [facility] Comment on above: Performed By: #### L 500.4050, L501.2450, L100.0100 ####[facility] [address] [place], [address] Platelet mean volume (Bld) [Entitic vol] 9.5 fL Normal 6.2-12.0 [facility] Comment on above: Performed By: #### L 500.4050, L501.2450, L100.0100 ####[facility] [address] [place], [address] Platelets (Bld) [#/Vol] 146 10*3/uL Low 150-450 [facility] Comment on above: Performed By: #### L 500.4050, L501.2450, L100.0100 ####[facility] [address] [place], [address] RBC (Bld) [#/Vol] 4.93 10*6/uL Normal 4.6-6.2 [facility] Comment on above: Performed By: #### L 500.4050, L501.2450, L100.0100 ####[facility] [address] [place], [address] RDW SD 37.9 fl Normal 35.1-43.9 [facility] Comment on above: Performed By: #### L 500.4050, L501.2450, L100.0100 ####[facility] [address] [place], [address] WBC (Bld) [#/Vol] 5.9 10*3/uL Normal 4.4-11.0 [facility] Comment on above: Performed By: #### L 500.4050, L501.2450, L100.0100 ####[facility] [address] [place], [address] Carbon dioxide, total [Moles /volume] in Central venous bloodOrdered By: Javy Navarro on 10-27-2024 CO2 [Moles/Vol] 16.5 mmol/L Low 21.0-32.0 [facility] Chloride assayOrdered By: Juanito Navarro on 10-27-2024 Chloride [Moles/Vol] 103 mmol/L 98-108 [facility] Comprehensive Metabolic Prof ilon 10-27-2024 Albumin [Mass/Vol] 4.3 g/dL Normal 3.5-5.0 [facility] Comment on above: Performed By: #### L 500.4050, L501.2450, L100.0100 ####[facility] [address] [place], [address] Albumin/Globulin [Mass ratio] 1.7 {ratio} Normal 0.9-2.4 [facility] Comment on above: Performed By: #### L 500.4050, L501.2450, L100.0100 ####[facility] [address] [place], [address] ALK PHOS 76 U/L Normal 40-129 [facility] Comment on above: Performed By: #### L 500.4050, L501.2450, L100.0100 ####[facility] [address] [place], [address] ALT [Catalytic activity/Vol] 24 U/L Normal <=46 [facility] Comment on above: Performed By: #### L 500.4050, L501.2450, L100.0100 ####[facility] [address] [place], [address] AST [Catalytic activity/Vol] 21 U/L Normal <=37 [facility] Comment on above: Performed By: #### L 500.4050, L501.2450, L100.0100 ####[facility] [address] [place], [address] Bilirubin [Mass/Vol] 0.42 mg/dL Normal 0.00-1.30 [facility] Comment on above: Performed By: #### L 500.4050, L501.2450, L100.0100 ####[facility] [address] [place], [address] BUN/CRE 10.9 RATIO Normal 10-20 [facility] Comment on above: Performed By: #### L 500.4050, L501.2450, L100.0100 ####[facility] [address] [place], [address] Calcium [Mass/Vol] 8.8 mg/dL Normal 7.6-11.0 [facility] Comment on above: Performed By: #### L 500.4050, L501.2450, L100.0100 ####[facility] [address] [place], [address] Chloride [Moles/Vol] 103 mmol/L Normal 98-108 [facility] Comment on above: Performed By: #### L 500.4050, L501.2450, L100.0100 ####[facility] [address] [place], [address] CO2 [Moles/Vol] 16.5 mmol/L Low 21.0-32.0 [facility] Comment on above: Performed By: #### L 500.4050, L501.2450, L100.0100 ####[facility] [address] [place], [address] Creatinine [Mass/Vol] 1.03 mg/dL Normal 0.70-1.20 [facility] Comment on above: Performed By: #### L 500.4050, L501.2450, L100.0100 ####[facility] [address] [place], [address] ECRCL 96.75 ml/min Normal 50-250 [facility] Comment on above: Performed By: #### L 500.4050, L501.2450, L100.0100 ####[facility] [address] [place], [address] GAP 16 High 5-15 [facility] Comment on above: Performed By: #### L 500.4050, L501.2450, L100.0100 ####[facility] [address] [place], [address] GFR/1.73 sq M.predicted among non-blacks MDRD (S/P/Bld) [Vol rate/Area] 84 mL/min/{1.73_m2} Normal >60 [facility] Comment on above: Result Comment: mL/m in/1.73m2 CKD-EPI Creatinine Equation (2020) Performed By: #### L 500.4050, L501.2450, L100.0100 ####[facility] [address] [place], [address] Globulin (S) [Mass/Vol] 2.5 g/dL Normal 2.2-4.2 [facility] Comment on above: Performed By: #### L 500.4050, L501.2450, L100.0100 ####[facility] [address] [place], [address] Glucose [Mass/Vol] 269 mg/dL High 70-99 [facility] Comment on above: Performed By: #### L 500.4050, L501.2450, L100.0100 ####[facility] [address] [place], [address] Potassium [Moles/Vol] 3.7 mmol/L Normal 3.3-5.1 [facility] Comment on above: Performed By: #### L 500.4050, L501.2450, L100.0100 ####[facility] [address] [place], [address] Sodium [Moles/Vol] 135 mmol/L Normal 133-145 [facility] Comment on above: Performed By: #### L 500.4050, L501.2450, L100.0100 ####[facility] [address] [place], [address] T PROT 6.8 g/dL Normal 5.9-8.4 [facility] Comment on above: Performed By: #### L 500.4050, L501.2450, L100.0100 ####[facility] [address] [place], [address] Urea nitrogen [Mass/Vol] 11 mg/dL Normal 4-19 [facility] Comment on above: Performed By: #### L 500.4050, L501.2450, L100.0100 ####[facility] [address] [place], [address] Emergency Department Summary on 10-27-2024 Emergency Department Summary [facility] Medical Records Department [address] [place] [address] Emergency Department Summary 10/27/24 MR#: [id number] Acct: [id number] Name: KRISHAN BURNHAM Rep #: [id number] : 1965 59 From: Javy Navarro MD PCP: [facility] Status:DEP ER Location: ED HPI HPI - [...] Former smoker (more content not included)... Normal [facility] Eosinophil percentageOrdered By: Javy Navarro on 10-27-2024 Eosinophils/100 WBC (Bld) 3.9 % 0-5 [facility] Erythrocyte distribution wid th ratioOrdered By: Javy Navarro on 10-27-2024 Erythrocyte distribution width (RBC) [Ratio] 12.6 % 11.6-14.6 [facility] Erythrocyte distribution wid th standard deviationOrdered By: Javy Navarro on 10-27-2024 Erythrocyte distribution width (RBC) [Ratio] 37.9 fl 35.1-43.9 [facility] Glomerular filtration rate ( GFR) estimation/1.73 sq m using serum, plasma, or whole bOrdered By: Javy Navarro on 10-27-2024 GFR/1.73 sq M.predicted among non-blacks MDRD (S/P/Bld) [Vol rate/Area] 84 mL/min/{1.73_m2} >60 [facility] Comment on above: mL/min/1.73m2 CKD-EP I Creatinine Equation (2020) Hematocrit Auto (Bld) [Volum e fraction]Ordered By: Javy Navarro on 10-27-2024 Hematocrit (Bld) [Volume fraction] 41.8 % 40-54 [facility] Hemoglobin measurementOrdere d By: Jayv Navarro on 10-27-2024 Hemoglobin (Bld) [Mass/Vol] 14.5 g/dL 13.0-16.5 [facility] Immature granulocytes/100 WB C Auto (Bld)Ordered By: Javy Navarro on 10-27-2024 Immature granulocytes/100 WBC (Bld) 0.300 % 0.0-0.9 [facility] Comment on above: IG% - Immature Granu locytes (promyelocytes, myelocytes and metamyelocytes) > 1% indicates that a LEFT SHIFT is Present. Ketones Test strip Ql (U)Ord ered By: Javy Navarro on 10-27-2024 Ketones Ql (U) Negative Negative [facility] Laboratory - Chemistry and C hemistry - challengeOrdered By: Javy Navarro on 10-27-2024 AST [Catalytic activity/Vol] 21 U/L <38 [facility] Lipaseon 10-27-2024 Lipase [Catalytic activity/Vol] 29 U/L Normal 13-75 [facility] Comment on above: Result Comment: Homar james note: LIPASE revised reference range effective 22. New Lipase methodology. Expected to produce lower values than the previous assay method. NEW Reference Range: 13 - 75 U/L Performed By: #### L 500.4050, L501.2450, L100.0100 ####[facility] [address] [place], [address] Lipase measurementOrdered By : Javy Navarro on 10-27-2024 Lipase [Catalytic activity/Vol] 29 U/L 13-75 [facility] Comment on above: Please note:LIPASE r evised reference range effective 22. New Lipase methodology. Expected to produce lower values than the previous assay method. NEW Reference Range: 13 - 75 U/L MCV (mean corpuscular volume ) determinationOrdered By: Javy Navarro on 10-27-2024 MCV (RBC) [Entitic vol] 84.8 fL 80-94 [facility] Mean corpuscular hemoglobin (MCH) determinationOrdered By: Javy Navarro on 10-27-2024 MCH (RBC) [Entitic mass] 29.4 pg 27.0-32.0 [facility] Mean corpuscular hemoglobin concentration (MCHC) determinationOrdered By: Javy Navarro on 10-27-2024 MCHC (RBC) [Mass/Vol] 34.7 g/dL 32-36 [facility] Mean platelet volume determi nationOrdered By: Javy Navarro on 10-27-2024 Platelet mean volume (Bld) [Entitic vol] 9.5 fL 6.2-12.0 [facility] Microscopic analysis of urin e for red blood cells (RBC)Ordered By: Javy Navarro on 10-27-2024 Microscopic analysis of urine for red blood cells (RBC) 0 SEEN /hpf 0-5 [facility] Monocyte percentageOrdered B y: Javy Navarro on 10-27-2024 Monocytes/100 WBC (Bld) 9.2 % 0-10 [facility] Mucus LM Ql (Urine sed)Order ed By: Javy Navarro on 10-27-2024 Mucus Ql (Urine sed) 0 SEEN /hpf [facility] Neutrophil percentageOrdered By: Javy Navarro on 10-27-2024 Neutrophils/100 WBC (Bld) 63.9 % 47-70 [facility] Nitrite Test strip Ql (U)Ord ered By: Javy Navarro on 10-27-2024 Nitrite Ql (U) Negative Negative [facility] Nucleated red blood cell per centageOrdered By: Javy Navarro on 10-27-2024 Nucleated RBC/100 WBC (Bld) [Ratio] 0 % 0-5 [facility] Platelet countOrdered By: Juanito Navarro on 10-27-2024 Platelets (Bld) [#/Vol] 146 10*3/uL Low 150-450 [facility] Potassium measurement (mass/ volume)Ordered By: Javy Navarro on 10-27-2024 Potassium (Unsp spec) [Mass/Vol] 3.7 mmol/L 3.3-5.1 [facility] Protein Test strip Ql (U)Ord ered By: Javy Navarro on 10-27-2024 Protein Ql (U) Negative Negative [facility] RBC Auto (Bld) [#/Vol]Ordere d By: Javy Navarro on 10-27-2024 RBC (Bld) [#/Vol] 4.93 10*6/uL 4.6-6.2 [facility] Serum creatinine measurement (mass/volume)Ordered By: Javy Navarro on 10-27-2024 Creatinine [Mass/Vol] 1.03 mg/dL 0.70-1.20 [facility] Serum globulin measurementOr dered By: Javy Navarro on 10-27-2024 Globulin (S) [Mass/Vol] 2.5 g/dL 2.2-4.2 [facility] Serum glucose measurement (m ass/volume)Ordered By: Javy Navarro on 10-27-2024 Glucose [Mass/Vol] 269 mg/dL High 70-99 [facility] Serum or plasma alanine layton otransferase (ALT) measurementOrdered By: Javy Navarro on 10-27-2024 ALT [Catalytic activity/Vol] 24 U/L <47 [facility] Serum or plasma albumin noy urement (mass/volume)Ordered By: Javy Navarro on 10-27-2024 Albumin [Mass/Vol] 4.3 g/dL 3.5-5.0 [facility] Serum or plasma albumin/glob ulin mass ratioOrdered By: Javy Navarro on 10-27-2024 Albumin/Globulin [Mass ratio] 1.7 {ratio} 0.9-2.4 [facility] Serum or plasma alkaline usha sphatase measurementOrdered By: Javy Navarro on 10-27-2024 ALP [Catalytic activity/Vol] 76 U/L 40-129 [facility] Serum or plasma calcium noy urement (mass/volume)Ordered By: Javy Navarro on 10-27-2024 Calcium [Mass/Vol] 8.8 mg/dL 7.6-11.0 [facility] Serum or plasma urea nitroge n measurement (mass/volume)Ordered By: Javy Navarro on 10-27-2024 Urea nitrogen [Mass/Vol] 11 mg/dL 4-19 [facility] Sodium levelOrdered By: Javy Navarro on 10-27-2024 Sodium [Moles/Vol] 135 mmol/L 133-145 [facility] Squamous epithelial cells de tection in urine sediment by light microscopyOrdered By: Javy Navarro on 10-27-2024 Epithelial cells.squamous LM Ql (Urine sed) 0-5 SEEN /hpf 0-5 [facility] Total proteinOrdered By: Angel Navarro on 10-27-2024 Protein [Mass/Vol] 6.8 g/dL 5.9-8.4 [facility] Urinalysis, Completeon 10-27 EPI,SQUAMOUS 0-5 SEEN Normal 0-5 [facility] Comment on above: Order Comment: CLEAN CATCH Performed By: #### L 400.0001 ####[facility] [address] [place], [address] WBC 0-5 SEEN Normal 0-5 [facility] Comment on above: Order Comment: CLEAN CATCH Performed By: #### L 400.0001 ####[facility] [address] [place], [address] BACTERIA 0 SEEN Normal None Seen [facility] Comment on above: Order Comment: CLEAN CATCH Performed By: #### L 400.0001 ####[facility] [address] [place], [address] Mucus Ql (Urine sed) 0 SEEN Normal [facility] Comment on above: Order Comment: CLEAN CATCH Performed By: #### L 400.0001 ####[facility] [address] [place], [address] RBC 0 SEEN Normal 0-5 [facility] Comment on above: Order Comment: CLEAN CATCH Performed By: #### L 400.0001 ####[facility] [address] [place], [address] Urine clarityOrdered By: Angel Navarro on 10-27-2024 Clarity (U) Clear Clear [facility] Urine color determinationOrd ered By: Javy Navarro on 10-27-2024 Color (U) Yellow Yellow [facility] Urine glucose detectionOrder ed By: Javy Navarro on 10-27-2024 Glucose Ql (U) 1000 mg/dl High Normal [facility] Urine leukocyte esterase det ection by dipstickOrdered By: Javy Navarro on 10-27-2024 Leukocyte esterase Test strip Ql (U) Negative Negative [facility] Urine pHOrdered By: Javy Coppola ghandre on 10-27-2024 pH (U) 6.0 [pH] 5.0 - 8.0 [facility] Urine sediment bacteria coun t by microscopy (number/high power field)Ordered By: Javy Navarro on 10-27-2024 Bacteria LM.HPF (Urine sed) [#/Area] 0 /[HPF] None Seen [facility] Urine specific gravity measu rementOrdered By: Javy Navarro on 10-27-2024 Specific gravity (U) [Rel density] 1.015 1.002-1.03 0 [facility] Urine urobilinogen measureme ntOrdered By: Javy Navarro on 10-27-2024 Urobilinogen Ql (U) Normal mg/dl Normal [facility] White blood cell (WBC) count Ordered By: Javy Navarro on 10-27-2024 WBC (Bld) [#/Vol] 5.9 10*3/uL 4.4-11.0 [facility] White blood cell countOrdere d By: Javy Navarro on 10-27-2024 White blood cell count 0-5 SEEN /hpf 0-5 [facility] 12 Lead EKGon 09-17-2024 12 Lead EKG [facility] Cardi[facility] Services [address] [place] [address] 12 Lead EKG 09/17/24 1112 MR#: [id number] Acct: [id number] Name: KRISHAN BURNHAM JOHANNY Rep #: [id number] : 1965 59 From: Jhony Ortiz MD [...] ) Borderline ECG Confirmed by Jhony Ortiz ([id number]), acquisitions editor BRET ARCOS ([id number]) on 09/18/2024 1:47:09 PM Referred By: Confirmed By: Jhony Ortiz 09/18/24 1347 Date Jhony Ortiz MD CC: Dr. Bib Beavers, ; [facility] Signed Normal [facility] Absolute lymphocyte countOrd ered By: Bib Beavers on 09-17-2024 Lymphocytes Auto (Unsp spec) [#/Vol] 1.66 10*3/uL 0.83-4.51 [facility] Absolute neutrophil countOrd ered By: Bib Beavers on 09-17-2024 Neutrophils (Bld) [#/Vol] 3.7 10*3/uL 2.0-7.7 [facility] Activated partial thrombopla stin time (aPTT) in platelet poor plasma by coagulation aOrdered By: Bib Beavers on 09-17-2024 aPTT Coag (PPP) [Time] 24.1 s 24.1-36.2 [facility] Anion gap in Serum or Plasma Ordered By: Bib Beavers on 09-17-2024 Anion gap [Moles/Vol] 15 mmol/L 5-15 [facility] Automated lymphocyte count a s percentage of total leukocytesOrdered By: Bib Beavers on 09-17-2024 Lymphocytes/100 WBC Auto (Unsp spec) 26.2 % 19-41 [facility] BUN/creatinine ratioOrdered By: Bib Beavers on 09-17-2024 Urea nitrogen/Creatinine [Mass ratio] 14.1 mg/mg 10-20 [facility] Basic Metabolic Profile (BMP )on 09-17-2024 BUN/CRE 14.1 RATIO Normal 10-20 [facility] Comment on above: Performed By: #### L 300.3900, L100.0100, L300.4310, L500.2500, L501.4021 #### [facility] [address] [place], [address] Calcium [Mass/Vol] 9.2 mg/dL Normal 7.6-11.0 [facility] Comment on above: Performed By: #### L 300.3900, L100.0100, L300.4310, L500.2500, L501.4021 #### [facility] [address] [place], [address] Chloride [Moles/Vol] 101 mmol/L Normal 98-108 [facility] Comment on above: Performed By: #### L 300.3900, L100.0100, L300.4310, L500.2500, L501.4021 #### [facility] [address] [place], [address] CO2 [Moles/Vol] 21.5 mmol/L Normal 21.0-32.0 [facility] Comment on above: Performed By: #### L 300.3900, L100.0100, L300.4310, L500.2500, L501.4021 #### [facility] [address] [place], [address] Creatinine [Mass/Vol] 1.05 mg/dL Normal 0.70-1.20 [facility] Comment on above: Performed By: #### L 300.3900, L100.0100, L300.4310, L500.2500, L501.4021 #### [facility] [address] [place], [address] ECRCL 95.68 ml/min Normal 50-250 [facility] Comment on above: Performed By: #### L 300.3900, L100.0100, L300.4310, L500.2500, L501.4021 #### [facility] [address] [place], [address] GAP 15 Normal 5-15 [facility] Comment on above: Performed By: #### L 300.3900, L100.0100, L300.4310, L500.2500, L501.4021 #### [facility] [address] [place], [address] GFR/1.73 sq M.predicted among non-blacks MDRD (S/P/Bld) [Vol rate/Area] 82 mL/min/{1.73_m2} Normal >60 [facility] Comment on above: Result Comment: mL/m in/1.73m2 CKD-EPI Creatinine Equation (2020) Performed By: #### L 300.3900, L100.0100, L300.4310, L500.2500, L501.4021 #### [facility] [address] [place], [address] Glucose [Mass/Vol] 205 mg/dL High 70-99 [facility] Comment on above: Performed By: #### L 300.3900, L100.0100, L300.4310, L500.2500, L501.4021 #### [facility] [address] [place], [address] Potassium [Moles/Vol] 3.9 mmol/L Normal 3.3-5.1 [facility] Comment on above: Result Comment: Hemo lysis present, Results??could be affected. ?? Performed By: #### L 300.3900, L100.0100, L300.4310, L500.2500, L501.4021 #### [facility] [address] [place], [address] Sodium [Moles/Vol] 138 mmol/L Normal 133-145 [facility] Comment on above: Performed By: #### L 300.3900, L100.0100, L300.4310, L500.2500, L501.4021 #### [facility] [address] [place], [address] Urea nitrogen [Mass/Vol] 15 mg/dL Normal 4-19 [facility] Comment on above: Performed By: #### L 300.3900, L100.0100, L300.4310, L500.2500, L501.4021 #### [facility] [address] [place], [address] Basophil percentageOrdered B y: Bib Beavers on 09-17-2024 Basophils/100 WBC (Bld) 0.6 % 0-1 [facility] Bilirubin directOrdered By: Bib Beavers on 09-17-2024 Bilirubin.direct [Mass/Vol] 0.13 mg/dL 0.00-0.30 [facility] Comment on above: Hemolysis present, R esults could be affected. Bilirubin, totalOrdered By: Bib Beavers on 09-17-2024 Bilirubin [Mass/Vol] 0.41 mg/dL 0.00-1.30 [facility] CBC W/Diff, Automatedon 08-28 Absolute Lymph 1.66 X10 3/uL Normal 0.83-4.51 [facility] Comment on above: Performed By: #### L 300.3900, L100.0100, L300.4310, L500.2500, L501.4021 #### [facility] [address] [place], [address] Absolute Neut 3.7 X10 3/uL Normal 2.0-7.7 [facility] Comment on above: Performed By: #### L 300.3900, L100.0100, L300.4310, L500.2500, L501.4021 #### [facility] [address] [place], [address] Basophils/100 WBC (Bld) 0.6 % Normal 0-1 [facility] Comment on above: Performed By: #### L 300.3900, L100.0100, L300.4310, L500.2500, L501.4021 #### [facility] [address] [place], [address] Eosinophils/100 WBC (Bld) 2.7 % Normal 0-5 [facility] Comment on above: Performed By: #### L 300.3900, L100.0100, L300.4310, L500.2500, L501.4021 #### [facility] [address] [place], [address] Erythrocyte distribution width (RBC) [Ratio] 12.7 % Normal 11.6-14.6 [facility] Comment on above: Performed By: #### L 300.3900, L100.0100, L300.4310, L500.2500, L501.4021 #### [facility] [address] [place], [address] Hematocrit (Bld) [Volume fraction] 43.4 % Normal 40-54 [facility] Comment on above: Performed By: #### L 300.3900, L100.0100, L300.4310, L500.2500, L501.4021 #### [facility] [address] [place], [address] Hemoglobin (Bld) [Mass/Vol] 15.1 g/dL Normal 13.0-16.5 [facility] Comment on above: Performed By: #### L 300.3900, L100.0100, L300.4310, L500.2500, L501.4021 #### [facility] [address] [place], [address] IG% 0.600 Normal 0.0-0.9 [facility] Comment on above: Result Comment: IG% - Immature Granulocytes (promyelocytes, myelocytes and metamyelocytes) > 1% indicates that a LEFT SHIFT is Present. Performed By: #### L 300.3900, L100.0100, L300.4310, L500.2500, L501.4021 #### [facility] [address] [place], [address] Lymphocytes/100 WBC (Bld) 26.2 % Normal 19-41 [facility] Comment on above: Performed By: #### L 300.3900, L100.0100, L300.4310, L500.2500, L501.4021 #### [facility] [address] [place], [address] MCH (RBC) [Entitic mass] 29.6 pg Normal 27.0-32.0 [facility] Comment on above: Performed By: #### L 300.3900, L100.0100, L300.4310, L500.2500, L501.4021 #### [facility] [address] [place], [address] MCHC (RBC) [Mass/Vol] 34.8 g/dL Normal 32-36 [facility] Comment on above: Performed By: #### L 300.3900, L100.0100, L300.4310, L500.2500, L501.4021 #### [facility] [address] [place], [address] MCV (RBC) [Entitic vol] 85.1 fL Normal 80-94 [facility] Comment on above: Performed By: #### L 300.3900, L100.0100, L300.4310, L500.2500, L501.4021 #### [facility] [address] [place], [address] Monocytes/100 WBC (Bld) 11.5 % High 0-10 [facility] Comment on above: Performed By: #### L 300.3900, L100.0100, L300.4310, L500.2500, L501.4021 #### [facility] [address] [place], [address] Neutrophils/100 WBC (Bld) 58.4 % Normal 47-70 [facility] Comment on above: Performed By: #### L 300.3900, L100.0100, L300.4310, L500.2500, L501.4021 #### [facility] [address] [place], [address] Nucleated RBC (Bld) [#/Vol] 0 10*3/uL Normal 0-5 [facility] Comment on above: Performed By: #### L 300.3900, L100.0100, L300.4310, L500.2500, L501.4021 #### [facility] [address] [place], [address] Platelet mean volume (Bld) [Entitic vol] 10.3 fL Normal 6.2-12.0 [facility] Comment on above: Performed By: #### L 300.3900, L100.0100, L300.4310, L500.2500, L501.4021 #### [facility] [address] [place], [address] Platelets (Bld) [#/Vol] 144 10*3/uL Low 150-450 [facility] Comment on above: Performed By: #### L 300.3900, L100.0100, L300.4310, L500.2500, L501.4021 #### [facility] [address] [place], [address] RBC (Bld) [#/Vol] 5.10 10*6/uL Normal 4.6-6.2 [facility] Comment on above: Performed By: #### L 300.3900, L100.0100, L300.4310, L500.2500, L501.4021 #### [facility] [address] [place], [address] RDW SD 38.8 fl Normal 35.1-43.9 [facility] Comment on above: Performed By: #### L 300.3900, L100.0100, L300.4310, L500.2500, L501.4021 #### [facility] [address] [place], [address] WBC (Bld) [#/Vol] 6.3 10*3/uL Normal 4.4-11.0 [facility] Comment on above: Performed By: #### L 300.3900, L100.0100, L300.4310, L500.2500, L501.4021 #### [facility] [address] [place], [address] CTA Chst, Abd, Pel W and/or WOon 09-17-2024 CTA Chst, Abd, Pel W and/or WO [facility] Imaging Services [address] [place] [address] CTA Chst, Abd, Pel W and/or WO MR#: [id number] Acct: [id number] Name: KRISHAN BURNHAM Rep #: [id number] : 1965 M 59 From: Paulie Gale MD PCP: [facility] Status: REG ER Study: CTA Chst, Abd, Pel W and/or WO Date of Exam: 0 09/17/24 Exam# [id number] Ordering Dr: Bib Beavers DO PROCEDURE: CTA [...] Location: [facility] CC: Dr. Bib Beavers DO; [facility] Electronic Design Engineer: Signed Normal [facility] Carbon dioxide, total [Moles /volume] in Central venous bloodOrdered By: Bib Beavers on 09-17-2024 CO2 [Moles/Vol] 21.5 mmol/L 21.0-32.0 [facility] Chloride assayOrdered By: Andrei Beavers on 09-17-2024 Chloride [Moles/Vol] 101 mmol/L 98-108 [facility] Emergency Department Summary on 09-17-2024 Emergency Department Summary [facility] Medical Records Department [address] [place] [address] Emergency Department Summary 09/17/24 MR#: [id number] Acct: [id number] Name: KRISHAN BURNHAM Rep #: [id number] : 1965 59 From: Bib Lopez PCP: [...] Recent Immobilization or Prior DVT or PE [facility] Medical History BMI 34.0-34.9,adult Left ventricular [...] throat Cardiovas (more content not included)... Normal [facility] Eosinophil percentageOrdered By: Bib Beavers on 09-17-2024 Eosinophils/100 WBC (Bld) 2.7 % 0-5 [facility] Erythrocyte distribution wid th ratioOrdered By: Bib Beavers on 09-17-2024 Erythrocyte distribution width (RBC) [Ratio] 12.7 % 11.6-14.6 [facility] Erythrocyte distribution wid th standard deviationOrdered By: Bib Beavers on 09-17-2024 Erythrocyte distribution width (RBC) [Ratio] 38.8 fl 35.1-43.9 [facility] Glomerular filtration rate ( GFR) estimation/1.73 sq m using serum, plasma, or whole bOrdered By: Bib Beavers on 09-17-2024 GFR/1.73 sq M.predicted among non-blacks MDRD (S/P/Bld) [Vol rate/Area] 82 mL/min/{1.73_m2} >60 [facility] Comment on above: mL/min/1.73m2 CKD-EP I Creatinine Equation (2020) Hematocrit Auto (Bld) [Volum e fraction]Ordered By: Bib Beavers on 09-17-2024 Hematocrit (Bld) [Volume fraction] 43.4 % 40-54 [facility] Hemoglobin measurementOrdere d By: Bib Beavers on 09-17-2024 Hemoglobin (Bld) [Mass/Vol] 15.1 g/dL 13.0-16.5 [facility] Immature granulocytes/100 WB C Auto (Bld)Ordered By: Bib Beavers on 09-17-2024 Immature granulocytes/100 WBC (Bld) 0.600 % 0.0-0.9 [facility] Comment on above: IG% - Immature Granu locytes (promyelocytes, myelocytes and metamyelocytes) > 1% indicates that a LEFT SHIFT is Present. International normalized rat io (INR) calculationOrdered By: Bib Beavers on 09-17-2024 INR Coag (Bld) [Relative time] 0.9 {INR} [facility] L501.4021on 09-17-2024 Trop T High Sen 11 ng/L Normal <=22 [facility] Comment on above: Performed By: #### L 300.3900, L100.0100, L300.4310, L500.2500, L501.4021 #### [facility] [address] [place], [place], [id number] Laboratory - Chemistry and C hemistry - challengeOrdered By: Bib Beavers on 09-17-2024 AST [Catalytic activity/Vol] 22 U/L <38 [facility] Comment on above: Hemolysis present, R esults could be affected. Lipaseon 09-17-2024 Lipase [Catalytic activity/Vol] 25 U/L Normal 13-75 [facility] Comment on above: Result Comment: Plea note: LIPASE revised reference range effective 22. New Lipase methodology. Expected to produce lower values than the previous assay method. NEW Reference Range: 13 - 75 U/L Performed By: #### L 500.3400, L501.2450 ####[facility] [address] [place], [address] Lipase measurementOrdered By : Bib Beavers on 09-17-2024 Lipase [Catalytic activity/Vol] 25 U/L 13-75 [facility] Comment on above: Please note:LIPASE r evised reference range effective 22. New Lipase methodology. Expected to produce lower values than the previous assay method. NEW Reference Range: 13 - 75 U/L Liver Profileon 09-17-2024 Albumin [Mass/Vol] 4.6 g/dL Normal 3.5-5.0 [facility] Comment on above: Performed By: #### L 500.3400, L501.2450 ####[facility] [address] [place], [address] ALK PHOS 81 U/L Normal 40-129 [facility] Comment on above: Performed By: #### L 500.3400, L5.0 ####[facility] [address] [place], [address] ALT [Catalytic activity/Vol] 28 U/L Normal <=46 [facility] Comment on above: Performed By: #### L 500.3400, L5 ####[facility] [address] [place], [address] AST [Catalytic activity/Vol] 22 U/L Normal <=37 [facility] Comment on above: Result Comment: Hemo lysis present, Results??could be affected. ?? Performed By: #### L 500.3400, ####[facility] [address] [place], [address] Bilirubin [Mass/Vol] 0.41 mg/dL Normal 0.00-1.30 [facility] Comment on above: Performed By: #### L 500.3400, L5 ####[facility] [address] [place], [address] Bilirubin.direct [Mass/Vol] 0.13 mg/dL Normal 0.00-0.30 [facility] Comment on above: Result Comment: Hemo lysis present, Results??could be affected. ?? Performed By: #### L 500.3400, L501.2450 ####[facility] [address] [place], [address] Globulin (S) [Mass/Vol] 2.9 g/dL Normal 2.2-4.2 [facility] Comment on above: Performed By: #### L 500.3400, L5.2450 ####[facility] [address] [place], [address] T PROT 7.4 g/dL Normal 5.9-8.4 [facility] Comment on above: Performed By: #### L 500.3400, L501.2450 ####[facility] [address] [place], [address] MCV (mean corpuscular volume ) determinationOrdered By: Bib Beavers on 09-17-2024 MCV (RBC) [Entitic vol] 85.1 fL 80-94 [facility] Mean corpuscular hemoglobin (MCH) determinationOrdered By: Bib Beavers on 09-17-2024 MCH (RBC) [Entitic mass] 29.6 pg 27.0-32.0 [facility] Mean corpuscular hemoglobin concentration (MCHC) determinationOrdered By: Bib Beavers on 09-17-2024 MCHC (RBC) [Mass/Vol] 34.8 g/dL 32-36 [facility] Mean platelet volume determi nationOrdered By: Bib Beavers on 09-17-2024 Platelet mean volume (Bld) [Entitic vol] 10.3 fL 6.2-12.0 [facility] Monocyte percentageOrdered B y: Bib Beavers on 09-17-2024 Monocytes/100 WBC (Bld) 11.5 % High 0-10 [facility] Neutrophil percentageOrdered By: Bib Beavers on 09-17-2024 Neutrophils/100 WBC (Bld) 58.4 % 47-70 [facility] Nucleated red blood cell per centageOrdered By: Bib Beavers on 09-17-2024 Nucleated RBC/100 WBC (Bld) [Ratio] 0 % 0-5 [facility] Partial Thromboplast Timeon 09-17-2024 aPTT Coag (Bld) [Time] 24.1 s Normal 24.1-36.2 [facility] Comment on above: Performed By: #### L 300.3900, L100.0100, L300.4310, L500.2500, L501.4021 #### [facility] [address] [place], [address] Platelet countOrdered By: Andrei keen Ladnry on 09-17-2024 Platelets (Bld) [#/Vol] 144 10*3/uL Low 150-450 [facility] Potassium measurement (mass/ volume)Ordered By: Bib Beavers on 09-17-2024 Potassium (Unsp spec) [Mass/Vol] 3.9 mmol/L 3.3-5.1 [facility] Comment on above: Hemolysis present, R esults could be affected. Prothrombin Time w/INRon INR Coag (PPP) [Relative time] 0.9 {INR} Normal [facility] Comment on above: Performed By: #### L 300.3900, L100.0100, L300.4310, L500.2500, L501.4021 #### [facility] [address] [place], [place], [id number] PT Coag (PPP) [Time] 12.5 s Normal 11.7-14.9 [facility] Comment on above: Performed By: #### L 300.3900, L100.0100, L300.4310, L500.2500, L501.4021 #### [facility] [address] [place], [place], [id number] Prothrombin timeOrdered By: Bib Beavers on 09-17-2024 PT Coag (PPP) [Time] 12.5 s 11.7-14.9 [facility] RBC Auto (Bld) [#/Vol]Ordere d By: Bib Beavers on 09-17-2024 RBC (Bld) [#/Vol] 5.10 10*6/uL 4.6-6.2 [facility] Serum creatinine measurement (mass/volume)Ordered By: Bib Beavers on 09-17-2024 Creatinine [Mass/Vol] 1.05 mg/dL 0.70-1.20 [facility] Serum globulin measurementOr dered By: Bib Beavers on 09-17-2024 Globulin (S) [Mass/Vol] 2.9 g/dL 2.2-4.2 [facility] Serum glucose measurement (m ass/volume)Ordered By: Bib Beavers on 09-17-2024 Glucose [Mass/Vol] 205 mg/dL High 70-99 [facility] Serum or plasma alanine layton otransferase (ALT) measurementOrdered By: Bib Beavers on 09-17-2024 ALT [Catalytic activity/Vol] 28 U/L <47 [facility] Serum or plasma albumin noy urement (mass/volume)Ordered By: Bib Beavers on 09-17-2024 Albumin [Mass/Vol] 4.6 g/dL 3.5-5.0 [facility] Serum or plasma alkaline usha sphatase measurementOrdered By: Bib Beavers on 09-17-2024 ALP [Catalytic activity/Vol] 81 U/L 40-129 [facility] Serum or plasma calcium noy urement (mass/volume)Ordered By: Bib Beavers on 09-17-2024 Calcium [Mass/Vol] 9.2 mg/dL 7.6-11.0 [facility] Serum or plasma urea nitroge n measurement (mass/volume)Ordered By: Bib Beavers on 09-17-2024 Urea nitrogen [Mass/Vol] 15 mg/dL 4-19 [facility] Sodium levelOrdered By: Bib Beavers on 09-17-2024 Sodium [Moles/Vol] 138 mmol/L 133-145 [facility] Total proteinOrdered By: Rito Beavers on 09-17-2024 Protein [Mass/Vol] 7.4 g/dL 5.9-8.4 [facility] Troponin T HS 2 HRon 025 Trop T High Sen 11 ng/L Normal <=22 [facility] Comment on above: Performed By: #### L 499.0042 #### [facility] [address] [place], [place], [address] Troponin T HS 4 HRon 025 Trop T High Sen Normal <=22 [facility] Comment on above: Result Comment: Canc elled via OM: Order cancelled - Patient discharged Performed By: #### L 499.0043 ####[facility] [address] [place], [place], [id number] Troponin T.cardiac [Mass/vol ume] in Serum or Plasma by High sensitivity methodOrdered By: Bib Beavers on 09-17-2024 Troponin T.cardiac High sensitivity method [Mass/Vol] 11 ng/L <22 [facility] Troponin T.cardiac High sensitivity method [Mass/Vol] 11 ng/L <22 [facility] White blood cell (WBC) count Ordered By: Bib Beavers on 09-17-2024 WBC (Bld) [#/Vol] 6.3 10*3/uL 4.4-11.0 [facility] .Auto Diffon 06-29-2024 Basophil, Absolute 0.0 10 3/mcL Normal 0.0-0.3 [facility] Comment on above: Performed By: #### B NELLIE WONG, GFR, ADIFF, TROPHS, CBC, ANEU, MG #### [address] [address] Basophils/100 WBC (Bld) 0.6 % Normal 0.0-2.5 [facility] Comment on above: Performed By: #### B NELLIE WONG, GFR, ADIFF, TROPHS, CBC, ANEU, MG #### [address] [address] Eosinophil, Absolute 0.1 10 3/mcL Normal 0.0-0.7 [facility] Comment on above: Performed By: #### B NELLIE WONG, GFR, ADIFF, TROPHS, CBC, ANEU, MG #### [address] [address] Eosinophils/100 WBC (Bld) 2.7 % Normal 0.0-6.0 [facility] Comment on above: Performed By: #### B NELLIE WONG, GFR, ADIFF, TROPHS, CBC, ANEU, MG #### [address] [address] Lymphocyte, Absolute 1.6 10 3/mcL Normal 0.9-4.3 [facility] Comment on above: Performed By: #### B NELLIE WONG, GFR, ADIFF, TROPHS, CBC, ANEU, MG #### [address] [address] Lymphocytes/100 WBC (Bld) 29.2 % Normal 20.0-40.0 [facility] Comment on above: Performed By: #### B NELLIE WONG, GFR, ADIFF, TROPHS, CBC, ANEU, MG #### [address] [address] Monocyte, Absolute 0.5 10 3/mcL Normal 0.1-1.4 [facility] Comment on above: Performed By: #### B NELLIE WONG, GFR, ADIFF, TROPHS, CBC, ANEU, MG #### [address] [address] Monocytes/100 WBC (Bld) 9.5 % Normal 2.0-13.0 [facility] Comment on above: Performed By: #### B NELLIE WONG, GFR, ADIFF, TROPHS, CBC, ANEU, MG #### [address] [address] Neutrophils/100 WBC (Bld) 58.0 % Normal 50.0-75.0 [facility] Comment on above: Performed By: #### B NELLIE WONG, GFR, ADIFF, TROPHS, CBC, ANEU, MG #### [address] [address] .GFRon 06-29-2024 Estimated Glomerular Filtration Rate 101 ml/min/1.73sqm Normal [facility] Comment on above: Result Comment: Stages [...] GFR, ADIFF, TROPHS, CBC, ANEU, MG #### [address] [address] .MDWon 06-29-2024 Monocyte Distribution Width 17.20 Normal 0.00-20.00 [facility] Comment on above: Result Comment: For ED adult patients suspected of sepsis, MDW<=20.0 does not rule out sepsis or risk of sepsis Performed By: #### B NELLIE WONG, GFR, ADIFF, TROPHS, CBC, ANEU, MG #### [address] [address] .NEUABSon 06-29-2024 Neutrophil, Absolute 3.2 10 3/mcL Normal 2.3-8.1 [facility] Comment on above: Performed By: #### B NELLIE WONG, GFR, ADIFF, TROPHS, CBC, ANEU, MG #### [address] [address] BMPon 06-29-2024 BUN/Creatinine Ratio 21 ratio Normal 7-27 [facility] Comment on above: Performed By: #### B NELLIE WONG, GFR, ADIFF, TROPHS, CBC, ANEU, MG #### [address] [address] Calcium [Mass/Vol] 8.9 mg/dL Normal 8.4-10.2 [facility] Comment on above: Performed By: #### B NELLIE WONG, GFR, ADIFF, TROPHS, CBC, ANEU, MG #### [address] [address] Chloride [Moles/Vol] 106 mmol/L Normal 98-107 [facility] Comment on above: Performed By: #### B NELLIE WONG, GFR, ADIFF, TROPHS, CBC, ANEU, MG #### [address] [address] CO2 [Moles/Vol] 29 mmol/L Normal 22-29 [facility] Comment on above: Performed By: #### B NELLIE WONG, GFR, ADIFF, TROPHS, CBC, ANEU, MG #### [address] [address] Creatinine [Mass/Vol] 0.84 mg/dL Normal 0.67-1.17 [facility] Comment on above: Performed By: #### B NELLIE WONG, GFR, ADIFF, TROPHS, CBC, ANEU, MG #### [address] [address] Electrolyte Balance 5.0 mEq/L Normal 4.0-15.0 [facility] Comment on above: Performed By: #### B NELLIE WONG, GFR, ADIFF, TROPHS, CBC, ANEU, MG #### [address] [address] Glucose [Mass/Vol] 297 mg/dL High 70-105 [facility] Comment on above: Performed By: #### B NELLIE WONG, GFR, ADIFF, TROPHS, CBC, ANEU, MG #### [address] [address] Potassium [Moles/Vol] 3.7 mmol/L Normal 3.5-5.1 [facility] Comment on above: Performed By: #### B NELLIE WONG, GFR, ADIFF, TROPHS, CBC, ANEU, MG #### [address] [address] Sodium [Moles/Vol] 140 mmol/L Normal 136-145 [facility] Comment on above: Performed By: #### B NELLIE WONG, GFR, ADIFF, TROPHS, CBC, ANEU, MG #### [address] [address] Urea nitrogen [Mass/Vol] 18 mg/dL Normal 7-18 [facility] Comment on above: Performed By: #### B NELLIE WONG, GFR, ADIFF, TROPHS, CBC, ANEU, MG #### [address] [address] CBCon 06-29-2024 Erythrocyte distribution width (RBC) [Ratio] 13.3 % Normal 11.5-15.5 [facility] Comment on above: Performed By: #### B NELLIE WONG, GFR, ADIFF, TROPHS, CBC, ANEU, MG #### [place] [address] Hematocrit (Bld) [Volume fraction] 40.5 % Normal 40.0-52.0 [facility] Comment on above: Performed By: #### B NELLIE WONG, GFR, ADIFF, TROPHS, CBC, ANEU, MG #### [place] [address] Hgb 14.5 G/dL Normal 13.0-17.5 [facility] Comment on above: Performed By: #### B NELLIE WONG, GFR, ADIFF, TROPHS, CBC, ANEU, MG #### [place] [address] MCH (RBC) [Entitic mass] 30.2 pg Normal 27.0-33.0 [facility] Comment on above: Performed By: #### B NELLIE WONG, GFR, ADIFF, TROPHS, CBC, ANEU, MG #### [place] [address] MCHC 35.9 G/dL Normal 32.0-36.0 [facility] Comment on above: Performed By: #### B NELLIE WONG, GFR, ADIFF, TROPHS, CBC, ANEU, MG #### [place] [address] MCV (RBC) [Entitic vol] 84.2 fL Normal 81.0-100.0 [facility] Comment on above: Performed By: #### B NELLIE WONG, GFR, ADIFF, TROPHS, CBC, ANEU, MG #### [place] [address] Platelet 142 10 3/mcL Low 150-450 [facility] Comment on above: Performed By: #### B NELLIE WONG, GFR, ADIFF, TROPHS, CBC, ANEU, MG #### [address] [address] Platelet mean volume (Bld) [Entitic vol] 7.7 fL Normal 6.4-10.5 [facility] Comment on above: Performed By: #### B MP, MDW, GFR, ADIFF, TROPHS, CBC, ANEU, MG #### [place] [address] [place], [place] [address] RBC 4.81 10 6/mcL Normal 4.50-6.00 [facility] Comment on above: Performed By: #### B MP, MDW, GFR, ADIFF, TROPHS, CBC, ANEU, MG #### [place] [id number] [place], [place] [address] WBC 5.6 10 3/mcL Normal 4.5-10.8 [facility] Comment on above: Performed By: #### B MP, MDW, GFR, ADIFF, TROPHS, CBC, ANEU, MG #### [address] [address] [address] HEAD OR BRAIN W/O CONTRAS Ton [...] 10:57:23 PM Ordering Provider: CARMELA CORRALES Normal [facility] LABORATORYOrdered By: Dale Moyer on 06-29-2024 Glucose [Mass/Vol] 166 mg/dL High 70 - 110 mg/dL [facility] Work Phone: Glucose [Mass/Vol] 266 mg/dL High 70 - 110 mg/dL [facility] Work Phone: LABORATORYOrdered By: Janet Velazquez [...] a homogeneous sandwich chemiluminescent immunoassay based on [employer] technology. Urea nitrogen [Mass/Vol] 18 mg/dL Normal 7 - 18 mg/dL AO ADM SS Urea nitrogen/Creatinine [Mass ratio] 21 ratio Normal 7 - 27 ratio AO ADM SS WBC (Bld) [#/Vol] 5.6 103/mcL Normal 4.5 - 10.8 10^3/mcL AO Workflow SS MGon 06-29-2024 Magnesium [Mass/Vol] 1.9 mg/dL Normal 1.8-2.4 [facility] Comment on above: Performed By: #### B NELLIE WONG, GFR, ADIFF, TROPHS, CBC, ANEU, MG #### [address] [address] TROPHSon 06-29-2024 High Sensitivity Troponin I 11 ng/L Normal 0-76 [facility] Comment on above: Result Comment: High Sensitive Troponin I Reference Ranges: Female: 0-51 ng/L Male: 0-76 ng/L Testing performed on Dimension EX using a homogeneous sandwich chemiluminescent immunoassay based on [employer] technology. Performed By: #### B NELLIE WONG, GFR, ADIFF, TROPHS, CBC, ANEU, MG #### [place] [address] UAon 06-29-2024 Color (U) Yellow Normal [facility] Comment on above: Performed By: #### U A #### [address] [address] Glucose (U) [Mass/Vol] mg/dL Abnormal Negative [facility] Comment on above: Performed By: #### U A #### [address] [address] Ketones Ql (U) Negative Normal Negative [facility] Comment on above: Performed By: #### U A #### [address] [address] UA Appear Clear Normal Clear [facility] Comment on above: Performed By: #### U A #### [address] [address] UA Blood Negative Normal Negative [facility] Comment on above: Performed By: #### U A #### [place] [address] UA Leuk Est Negative Normal Negative [facility] Comment on above: Performed By: #### U A #### [place] [address] UA Nitrite Negative Normal Negative [facility] Comment on above: Performed By: #### U A #### [place] [address] UA pH 6.5 Normal 5.0 - 8.0 [facility] Comment on above: Performed By: #### U A #### [place] [address] UA Protein Negative Normal Negative [facility] Comment on above: Performed By: #### U A #### [place] [address] UA Spec Grav 1.015 Normal 1.015-1.02 5 [facility] Comment on above: Performed By: #### U A #### [place] [address] UA Specimen Type Not Given Normal [facility] Comment on above: Performed By: #### U A #### [place] [address] UA Urobilinogen 0.2 E.U./dL Normal 0.2-1.0 [facility] Comment on above: Performed By: #### U A #### [place] [address] Urobilinogen (U) [Mass/Vol] Negative Normal Negative [facility] Comment on above: Performed By: #### U A #### [place] [address] XR CHEST 1 VIEWon 06-29-2024 XR CHEST [...] 06/29/2024 11:06:58 PM Ordering Provider: [facility] ) ----- KRISHAN BURNHAM ([id number]) 1965 M Date Time Provider Department 06/01/24 10:15 AM TILA REYES [facility] During your visit today, we recorded the following information about you: Temperature Pulse Respiration Blood pressure 97 degrees 64/minute 18/minute 143/77 Weight 106 kg Tila Ryees APRN.KEYPUNCH OPERATOR 06/01/2024 10:15 AM Signed [facility] [...] history is provided by the patient. No historical guide was used. Sinus Problem Associated symptoms include [...] Patient agreeable to care plan. Tila Reyes APRN.KEYPUNCH OPERATOR History and Record Review External record(s) reviewed: [...] Status:Closed by TILA REYES on 06/01/24 Normal [facility] - Microbiology an d Antimicrobial susceptibilityOrdered By: Collin Burciaga on 04-26-2023 SARS-CoV-2 (COVID-19) RNA GITA+probe Ql (Unsp spec) [facility] Absolute lymphocyte countOrd ered By: Temi Katz on 03-20-2023 Lymphocytes Auto (Unsp spec) [#/Vol] 1.27 10*3/uL 0.83-4.51 [facility] Automated lymphocyte count a s percentage of total leukocytesOrdered By: Temi Katz on 03-20-2023 Lymphocytes/100 WBC Auto (Unsp spec) 24.8 % 19-41 [facility] Basophil percentageOrdered B y: Temi Katz on 03-20-2023 Basophils/100 WBC (Bld) 0.6 % 0-1 [facility] Chloride [Moles/Vol] 105 mmol/L 98-107 [facility] Eosin[facility]/100 WBC (Bld) 3.5 % 0-5 [facility] Glucose [Mass/Vol] 144 mg/dL 74-106 [facility] Comment on above: Fasting Glucose resu lt greater than or equal to 126 mg/dL suggests DIABETES MELLITUS per A.D.A. criteria. Hemoglobin (Bld) [Mass/Vol] 14.1 g/dL 13.0-16.5 [facility] Monocytes/100 WBC (Bld) 12.1 % 0-10 [facility] Neutrophils (Bld) [#/Vol] 3.0 10*3/uL 2.0-7.7 [facility] Neutrophils/100 WBC (Bld) 58.8 % 47-70 [facility] Potassium [Moles/Vol] 3.4 mmol/L 3.5-5.1 [facility] Sodium [Moles/Vol] 139 mmol/L 136-145 [facility] WBC (Bld) [#/Vol] 5.1 10*3/uL 4.4-11.0 [facility] Determination of erythrocyte mean corpuscular volume (MCV)Ordered By: Temi Katz on 03-20-2023 MCV (RBC) [Entitic vol] 84.8 fL 80-94 [facility] Erythrocyte distribution wid th ratioOrdered By: Temi Katz on 03-20-2023 Erythrocyte distribution width (RBC) [Ratio] 12.3 % 11.6-14.6 [facility] Erythrocyte distribution wid th standard deviationOrdered By: Temi Katz on 03-20-2023 Erythrocyte distribution width (RBC) [Entitic vol] 37.8 fL 35.1-43.9 [facility] Hematocrit Auto (Bld) [Volum e fraction]Ordered By: Temi Katz on 03-20-2023 Hematocrit (Bld) [Volume fraction] 41.2 % 40-54 [facility] Immature granulocytes/100 WB C Auto (Bld)Ordered By: Temi Katz on 03-20-2023 Immature granulocytes/100 WBC (Bld) 0.200 % 0.0-0.9 [facility] Comment on above: IG% - Immature Granu locytes (promyelocytes, myelocytes and metamyelocytes) > 1% indicates that a LEFT SHIFT is Present. Laboratory - Chemistry and C hemistry - challengeOrdered By: Temi Katz on 03-20-2023 CO2 [Moles/Vol] 28.0 mmol/L 21.0-32.0 [facility] Urea nitrogen/Creatinine [Mass ratio] 19.7 mg/mg 10-20 [facility] Laboratory - Hematology and Cell countsOrdered By: Temi Katz on 03-20-2023 MCH (RBC) [Entitic mass] 29.0 pg 27.0-32.0 [facility] MCHC (RBC) [Mass/Vol] 34.2 g/dL 32-36 [facility] Nucleated RBC/100 WBC (Bld) [Ratio] 0 % 0-5 [facility] Platelets (Bld) [#/Vol] 135 10*3/uL 150-450 [facility] No Panel InformationOrdered By: Temi Katz on 03-20-2023 Estimated Creatinine Clearance Calc 105.65 ml/min [facility] Estimated GFR (MDRD) Amer 103 mL/min >60 [facility] Comment on above: GFR Calc Estimated GFR (MDRD) Non-Af Amer 85 mL/min >60 [facility] Comment on above: Non- GFR Calc Platelet mean volume Paramjit-Ec ker (Bld) [Entitic vol]Ordered By: Temi Katz on 03-20-2023 Platelet mean volume (Bld) [Entitic vol] 9.7 fL 6.2-12.0 [facility] RBC Auto (Bld) [#/Vol]Ordere d By: Temi Katz on 03-20-2023 RBC (Bld) [#/Vol] 4.86 10*6/uL 4.6-6.2 [facility] Serum or plasma calcium noy urement (mass/volume)Ordered By: Temi Katz on 03-20-2023 Calcium [Mass/Vol] 8.9 mg/dL 8.5-10.1 [facility] Serum or plasma creatinine m easurement (mass/volume)Ordered By: Temi Katz on 03-20-2023 Creatinine [Mass/Vol] 0.96 mg/dL 0.70-1.30 [facility] Comment on above: The validity of the calculated GFR & GFRAA in patients over 70 years has not been determined. Clinical correlation is essential. Serum or plasma urea nitroge n measurement (mass/volume)Ordered By: Temi Katz on 03-20-2023 Urea nitrogen [Mass/Vol] 19 mg/dL 7-18 [facility] Thin prep Papanicolaou smear with manual screeningOrdered By: Temi Katz on 03-20-2023 Thin prep Papanicolaou smear with manual screening 6 5-15 [facility] Laboratory - CoagulationOrde red By: Temi Katz on 03-18-2023 PT Coag (PPP) [Time] 13.6 s 11.7-14.9 [facility] Platelet poor plasma interna tional normalized ratio (INR)Ordered By: Temi Katz on 03-18-2023 INR Coag (PPP) [Relative time] 1.0 {INR} [facility] Whole blood hemoglobin A1c/t otal hemoglobin ratio (mass fraction)Ordered By: Temi Katz on 03-18-2023 HbA1c (Bld) [Mass fraction] 6.4 % 3.8-5.6 [facility] Comment on above: Normal < 5.7 % Predi abetic 5.7 - 6.4 % Diabetic >or= 6.5 % Please note range changes. Basophil percentageOrdered B y: Jake Campbell on 03-17-2023 Cholesterol [Mass/Vol] 146 mg/dL <200 [facility] Comment on above: <200 mg/dL Desirable 200-240 mg/dL Borderline >240 mg/dL High Risk Triglyceride [Mass/Vol] 302 mg/dL <199 [facility] Comment on above: The drugs N-Acetylcy steine and Metamizole may falsely depress this assay.Serum Triglycerides Reference Interval Normal <150 mg/dL Borderline high 150 - 199 mg/dL High 200 - 499 mg/dL Very High > or = 500 mg/dL Laboratory - Chemistry and C hemistry - challengeOrdered By: Jake Campbell on 03-17-2023 Cholesterol in HDL (Body fld) [Mass/Vol] 32 mg/dL >40 [facility] Comment on above: The drugs N-Acetylcy steine and Metamizole may falsely depress this assay. Reference Range HDL <40 mg/dL Low HDL Cholesterol HDL >or= 60 mg/dL High HDL Cholesterol Cholesterol in LDL (Body fld) [Moles/Vol] 54 mg/dL 0-130 [facility] Cholesterol in VLDL Calc [Moles/Vol] 60 mg/dL 5-40 [facility] Absolute lymphocyte countOrd ered By: Xavi Orlando on 03-16-2023 Lymphocytes Auto (Unsp spec) [#/Vol] 1.51 10*3/uL 0.83-4.51 [facility] Automated lymphocyte count a s percentage of total leukocytesOrdered By: Xavi Orlando on 03-16-2023 Lymphocytes/100 WBC Auto (Unsp spec) 23.2 % 19-41 [facility] Basophil percentageOrdered B y: Xavi Orlando on 03-16-2023 Basophils/100 WBC (Bld) 0.5 % 0-1 [facility] Chloride [Moles/Vol] 106 mmol/L 98-107 [facility] Eosinophils/100 WBC (Bld) 2.5 % 0-5 [facility] Glucose [Mass/Vol] 173 mg/dL 74-106 [facility] Comment on above: Fasting Glucose resu lt greater than or equal to 126 mg/dL suggests DIABETES MELLITUS per A.D.A. criteria. Hemoglobin (Bld) [Mass/Vol] 15.2 g/dL 13.0-16.5 [facility] Monocytes/100 WBC (Bld) 9.7 % 0-10 [facility] Neutrophils (Bld) [#/Vol] 4.2 10*3/uL 2.0-7.7 [facility] Neutrophils/100 WBC (Bld) 63.8 % 47-70 [facility] Potassium [Moles/Vol] 3.5 mmol/L 3.5-5.1 [facility] Sodium [Moles/Vol] 138 mmol/L 136-145 [facility] WBC (Bld) [#/Vol] 6.5 10*3/uL 4.4-11.0 [facility] Determination of erythrocyte mean corpuscular volume (MCV)Ordered By: Xavi Orlando on 03-16-2023 MCV (RBC) [Entitic vol] 85.9 fL 80-94 [facility] Erythrocyte distribution wid th ratioOrdered By: Xavi Orlando on 03-16-2023 Erythrocyte distribution width (RBC) [Ratio] 12.4 % 11.6-14.6 [facility] Erythrocyte distribution wid th standard deviationOrdered By: Xavi Orlando on 03-16-2023 Erythrocyte distribution width (RBC) [Entitic vol] 38.6 fL 35.1-43.9 [facility] Hematocrit Auto (Bld) [Volum e fraction]Ordered By: Xavi Orlando on 03-16-2023 Hematocrit (Bld) [Volume fraction] 44.0 % 40-54 [facility] Immature granulocytes/100 WB C Auto (Bld)Ordered By: Xavi Orlando on 03-16-2023 Immature granulocytes/100 WBC (Bld) 0.300 % 0.0-0.9 [facility] Comment on above: IG% - Immature Granu locytes (promyelocytes, myelocytes and metamyelocytes) > 1% indicates that a LEFT SHIFT is Present. Laboratory - Chemistry and C hemistry - challengeOrdered By: Xavi Orlando on 03-16-2023 Natriuretic peptide B (Bld) [Mass/Vol] 5.2 pg/mL 0-100 [facility] CO2 [Moles/Vol] 28.0 mmol/L 21.0-32.0 [facility] Urea nitrogen/Creatinine [Mass ratio] 18.4 mg/mg 10-20 [facility] Laboratory - Hematology and Cell countsOrdered By: Xavi Orlando on 03-16-2023 MCH (RBC) [Entitic mass] 29.7 pg 27.0-32.0 [facility] MCHC (RBC) [Mass/Vol] 34.5 g/dL 32-36 [facility] Nucleated RBC/100 WBC (Bld) [Ratio] 0 % 0-5 [facility] Platelets (Bld) [#/Vol] 147 10*3/uL 150-450 [facility] No Panel InformationOrdered By: Jake Campbell on 03-16-2023 Troponin I High Sensitivity 14 pg/mL 3.0-78.0 [facility] Comment on above: Please Note: [place] Units and Gender Specific Reference Ranges. For more information see Policy Stat Procedure [place] High Sensitivity Troponin (TNIH) and attachments. No Panel InformationOrdered By: Xavi Orlando on 03-16-2023 Troponin I High Sensitivity 10 pg/mL 3.0-78.0 [facility] Comment on above: Please Note: [place] Units and Gender Specific Reference Ranges. For more information see Policy Stat Procedure [place] High Sensitivity Troponin (TNIH) and attachments. Estimated Creatinine Clearance Calc 81.49 ml/min [facility] Estimated GFR (MDRD) Amer 76 mL/min >60 [facility] Comment on above: GFR Calc Estimated GFR (MDRD) Non-Af Amer 63 mL/min >60 [facility] Comment on above: Non- GFR Calc Platelet mean volume Paramjit-Ec ker (Bld) [Entitic vol]Ordered By: Xavi Orlando on 03-16-2023 Platelet mean volume (Bld) [Entitic vol] 10.1 fL 6.2-12.0 [facility] RBC Auto (Bld) [#/Vol]Ordere d By: Xavi Orlando on 03-16-2023 RBC (Bld) [#/Vol] 5.12 10*6/uL 4.6-6.2 [facility] Serum or plasma calcium noy urement (mass/volume)Ordered By: Xavi Orlando on 03-16-2023 Calcium [Mass/Vol] 9.3 mg/dL 8.5-10.1 [facility] Serum or plasma creatinine m easurement (mass/volume)Ordered By: Xavi Orlando on 03-16-2023 Creatinine [Mass/Vol] 1.25 mg/dL 0.70-1.30 [facility] Comment on above: The validity of the calculated GFR & GFRAA in patients over 70 years has not been determined. Clinical correlation is essential. Serum or plasma urea nitroge n measurement (mass/volume)Ordered By: Xavi Orlando on 03-16-2023 Urea nitrogen [Mass/Vol] 23 mg/dL 09-13 [facility] Thin prep Papanicolaou smear with manual screeningOrdered By: Xavi Orlando on 03-16-2023 Thin prep Papanicolaou smear with manual screening 4 07-11 [facility] Absolute lymphocyte countOrd ered By: Jose Maria Bedoya on 01-12-2023 Lymphocytes Auto (Unsp spec) [#/Vol] 1.38 10*3/uL 0.83-4.51 [facility] Basophil percentageOrdered B y: Jose Maria Bedoya on 01-12-2023 Basophils/100 WBC (Bld) 0.4 % 0-1 [facility] Chloride [Moles/Vol] 107 mmol/L 98-107 [facility] Eosinophils/100 WBC (Bld) 1.3 % 0-5 [facility] Glucose [Mass/Vol] 102 mg/dL 74-106 [facility] Comment on above: Fasting Glucose resu lt from 100 to 125 mg/dL suggests IMPAIRED HOMEOSTASIS per A.D.A. criteria. Neutrophils (Bld) [#/Vol] 6.6 10*3/uL 2.0-7.7 [facility] Neutrophils/100 WBC (Bld) 73.4 % 47-70 [facility] Potassium [Moles/Vol] 3.7 mmol/L 3.5-5.1 [facility] Sodium [Moles/Vol] 141 mmol/L 136-145 [facility] WBC (Bld) [#/Vol] 9.0 10*3/uL 4.4-11.0 [facility] Blood erythrocytes count (nu mber/volume)Ordered By: Jose Maria Bedoya on 01-12-2023 RBC (Bld) [#/Vol] 4.99 10*6/uL 4.6-6.2 [facility] Blood hemoglobin measurement (mass/volume)Ordered By: Jose Maria Bedoya on 01-12-2023 Hemoglobin (Bld) [Mass/Vol] 14.7 g/dL 13.0-16.5 [facility] Blood lymphocytes/100 leukoc ytesOrdered By: Jose Maria Bedoya on 01-12-2023 Lymphocytes/100 WBC (Bld) 15.3 % 19-41 [facility] Blood monocytes/100 leukocyt esOrdered By: Jose Maria Bedoya on 01-12-2023 Monocytes/100 WBC (Bld) 9.4 % 0-10 [facility] Blood platelet mean volumeOr dered By: Jose Maria Bedoya on 01-12-2023 Platelet mean volume (Bld) [Entitic vol] 9.8 fL 6.2-12.0 [facility] Determination of erythrocyte mean corpuscular volume (MCV)Ordered By: Jose Maria Bedoya on 01-12-2023 MCV (RBC) [Entitic vol] 86.8 fL 80-94 [facility] Glucose Glucometer (BldC) [M ass/Vol]Ordered By: Jose Maria Bedoya on 01-12-2023 Glucose [Mass/Vol] 116 mg/dL 74-106 [facility] Comment on above: MANAGEMENT OF PATIEN T CARE PER NURSING PROTOCOL Hematocrit Auto (Bld) [Volum e fraction]Ordered By: Jose Maria Bedoya on 01-12-2023 Hematocrit (Bld) [Volume fraction] 43.3 % 40-54 [facility] Laboratory - Chemistry and C hemistry - challengeOrdered By: Jose Maria Bedoya on 01-12-2023 CO2 [Moles/Vol] 28.0 mmol/L 21.0-32.0 [facility] Urea nitrogen/Creatinine [Mass ratio] 20.5 mg/mg 10-20 [facility] - Hematology and Cell countsOrdered By: Jose Maria Bedoya on 01-12-2023 Erythrocyte distribution width (RBC) [Entitic vol] 39.1 fL 35.1-43.9 [facility] Erythrocyte distribution width (RBC) [Ratio] 12.5 % 11.6-14.6 [facility] Immature granulocytes/100 WBC (Bld) 0.200 % 0.0-0.9 [facility] Comment on above: IG% - Immature Granu locytes (promyelocytes, myelocytes and metamyelocytes) > 1% indicates that a LEFT SHIFT is Present. MCH (RBC) [Entitic mass] 29.5 pg 27.0-32.0 [facility] Nucleated RBC/100 WBC (Bld) [Ratio] 0 % 0-5 [facility] MCHC Auto (RBC) [Mass/Vol]Or dered By: Jose Maria Bedoya on 01-12-2023 MCHC (RBC) [Mass/Vol] 33.9 g/dL 32-36 [facility] No Panel InformationOrdered By: Jose Maria Bedoya on 01-12-2023 Estimated Creatinine Clearance Calc 98.64 ml/min [facility] Estimated GFR (MDRD) Amer 115 mL/min >60 [facility] Comment on above: GFR Calc Estimated GFR (MDRD) Non-Af Amer 95 mL/min >60 [facility] Comment on above: Non- GFR Calc Platelets bldOrdered By: Prerna Bedoya on 01-12-2023 Platelets (Bld) [#/Vol] 129 10*3/uL 150-450 [facility] Serum or plasma calcium noy urement (mass/volume)Ordered By: Jose Maria Bedoya on 01-12-2023 Calcium [Mass/Vol] 8.7 mg/dL 8.5-10.1 [facility] Serum or plasma creatinine m easurement (mass/volume)Ordered By: Jose Maria Bedoya on 01-12-2023 Creatinine [Mass/Vol] 0.88 mg/dL 0.70-1.30 [facility] Comment on above: The validity of the calculated GFR & GFRAA in patients over 70 years has not been determined. Clinical correlation is essential. Serum or plasma urea nitroge n measurement (mass/volume)Ordered By: Jose Maria Bedoya on 01-12-2023 Urea nitrogen [Mass/Vol] 18 mg/dL 7-18 [facility] Thin prep Papanicolaou smear with manual screeningOrdered By: Jose Maria Bedoya on 01-12-2023 Thin prep Papanicolaou smear with manual screening 6 5-15 [facility] Basophil percentageOrdered B y: Jamee Phillips on 01-11-2023 Bilirubin [Mass/Vol] 0.70 mg/dL 0.20-1.00 [facility] Comment on above: For patients on eltr ombopag therapy, use of Dimension [place] TBIL is not recommended. Cholesterol [Mass/Vol] 117 mg/dL <200 [facility] Comment on above: <200 mg/dL Desirable 200-240 mg/dL Borderline >240 mg/dL High Risk Protein [Mass/Vol] 6.6 g/dL 6.4-8.2 [facility] Triglyceride [Mass/Vol] 176 mg/dL <199 [facility] Comment on above: The drugs N-Acetylcy steine and Metamizole may falsely depress this assay.Serum Triglycerides Reference Interval Normal <150 mg/dL Borderline high 150 - 199 mg/dL High 200 - 499 mg/dL Very High > or = 500 mg/dL Laboratory - Chemistry and C hemistry - challengeOrdered By: Jamee Phillips on 01-11-2023 ALP [Catalytic activity/Vol] 53 U/L 45-117 [facility] ALT [Catalytic activity/Vol] 11 U/L 16-61 [facility] Globulin (S) [Mass/Vol] 3.0 g/dL 2.2-4.2 [facility] No Panel InformationOrdered By: Jamee Phillips on 01-11-2023 Thyroid Stimulating Hormone (TSH) 1.95 uIU/mL 0.358-3.74 [facility] Troponin I High Sensitivity 18 pg/mL 3.0-78.0 [facility] Comment on above: Please Note: New [place] t Units and Gender Specific Reference Ranges. For more information see Policy Stat Procedure [place] High Sensitivity Troponin (TNIH) and attachments. Serum or plasma albumin noy urement (mass/volume)Ordered By: Jamee Phillips on 01-11-2023 Albumin [Mass/Vol] 3.6 g/dL 3.2-5.0 [facility] Serum or plasma albumin/glob ulin mass ratioOrdered By: Jamee Phillips 01-11-2023 Albumin/Globulin [Mass ratio] 1.2 {ratio} 0.9-2.4 [facility] Serum or plasma cholesterol in HDL measurement (mass/volume)Ordered By: [facility] Alan 01-11-2023 Cholesterol in HDL [Mass/Vol] 32 mg/dL >40 [facility] Comment on above: The drugs N-Acetylcy steine and Metamizole may falsely depress this assay. Reference Range HDL <40 mg/dL Low HDL Cholesterol HDL >or= 60 mg/dL High HDL Cholesterol Serum or plasma cholesterol in VLDL measurement (mass/volume)Ordered By: Jamee Phillips 01-11-2023 Cholesterol in VLDL [Mass/Vol] 35 mg/dL 5-40 [facility] Serum or plasma low density lipoprotein (LDL) cholesterol measurement (mass/volume)Ordered By: [facility] Alan 01-11-2023 Cholesterol in LDL [Mass/Vol] 50 mg/dL 0-130 [facility] Thin prep Papanicolaou smear with manual screeningOrdered By: Jamee Phillips 01-11-2023 Thin prep Papanicolaou smear with manual screening 27 U/L 15-37 [facility] Whole blood hemoglobin A1c/t otal hemoglobin ratio (mass fraction)Ordered By: Jamee Phillips 01-11-2023 HbA1c (Bld) [Mass fraction] 6.0 % 3.8-5.6 [facility] Comment on above: Normal < 5.7 % Predi abetic 5.7 - 6.4 % Diabetic >or= 6.5 % Please note range changes. Absolute lymphocyte countOrd ered By: Flaviojoanne Concepcion on 01-10-2023 Lymphocytes Auto (Unsp spec) [#/Vol] 1.57 10*3/uL 0.83-4.51 [facility] Basophil percentageOrdered B y: Flaviojoanne Concepcion on 01-10-2023 Basophils/100 WBC (Bld) 0.4 % 0-1 [facility] Chloride [Moles/Vol] 103 mmol/L 98-107 [facility] Eosinophils/100 WBC (Bld) 1.8 % 0-5 [facility] Glucose [Mass/Vol] 159 mg/dL 74-106 [facility] Comment on above: Fasting Glucose resu lt greater than or equal to 126 mg/dL suggests DIABETES MELLITUS per A.D.A. criteria. Neutrophils (Bld) [#/Vol] 4.3 10*3/uL 2.0-7.7 [facility] Neutrophils/100 WBC (Bld) 64.2 % 47-70 [facility] Potassium [Moles/Vol] 3.2 mmol/L 3.5-5.1 [facility] Sodium [Moles/Vol] 138 mmol/L 136-145 [facility] WBC (Bld) [#/Vol] 6.7 10*3/uL 4.4-11.0 [facility] Blood erythrocytes count (nu mber/volume)Ordered By: Flaviojoanne Concepcion on 01-10-2023 RBC (Bld) [#/Vol] 4.71 10*6/uL 4.6-6.2 [facility] Blood hemoglobin measurement (mass/volume)Ordered By: Flaviojoanne Concepcion on 01-10-2023 Hemoglobin (Bld) [Mass/Vol] 13.8 g/dL 13.0-16.5 [facility] Blood lymphocytes/100 leukoc ytesOrdered By: Flaviojoanne Concepcion on 01-10-2023 Lymphocytes/100 WBC (Bld) 23.5 % 19-41 [facility] Blood monocytes/100 leukocyt esOrdered By: Flavio Concepcion on 01-10-2023 Monocytes/100 WBC (Bld) 10.0 % 0-10 [facility] Blood platelet mean volumeOr dered By: Flavio Concepcion on 01-10-2023 Platelet mean volume (Bld) [Entitic vol] 9.7 fL 6.2-12.0 [facility] Determination of erythrocyte mean corpuscular volume (MCV)Ordered By: Flavio Concepcion on 01-10-2023 MCV (RBC) [Entitic vol] 84.9 fL 80-94 [facility] Glucose Glucometer (BldC) [M ass/Vol]Ordered By: Flavio Concepcion on 01-10-2023 Glucose [Mass/Vol] 167 mg/dL 74-106 [facility] Comment on above: MANAGEMENT OF PATIEN T CARE PER NURSING PROTOCOL Hematocrit Auto (Bld) [Volum e fraction]Ordered By: Flavio Concepcion on 01-10-2023 Hematocrit (Bld) [Volume fraction] 40.0 % 40-54 [facility] INR in Blood by Coagulation assayOrdered By: Flavio Concepcion on 01-10-2023 INR Coag (Bld) [Relative time] 1.1 {INR} [facility] Laboratory - Chemistry and C hemistry - challengeOrdered By: Flavio Concepcion on 01-10-2023 CO2 [Moles/Vol] 31.0 mmol/L 21.0-32.0 [facility] Urea nitrogen/Creatinine [Mass ratio] 14.5 mg/mg 10-20 [facility] Laboratory - Chemistry and C hemistry - challengeOrdered By: Jamee White on 01-10-2023 Magnesium [Mass/Vol] 2.2 mg/dL 1.6-2.6 [facility] Laboratory - CoagulationOrde red By: Flavio Concepcion on 01-10-2023 aPTT Coag (Bld) [Time] 28.1 s 24.1-36.2 [facility] PT Coag (PPP) [Time] 13.9 s 11.7-14.9 [facility] Laboratory - Hematology and Cell countsOrdered By: Flavio Concepcion on 01-10-2023 Erythrocyte distribution width (RBC) [Entitic vol] 37.9 fL 35.1-43.9 [facility] Erythrocyte distribution width (RBC) [Ratio] 12.3 % 11.6-14.6 [facility] Immature granulocytes/100 WBC (Bld) 0.100 % 0.0-0.9 [facility] Comment on above: IG% - Immature Granu locytes (promyelocytes, myelocytes and metamyelocytes) > 1% indicates that a LEFT SHIFT is Present. MCH (RBC) [Entitic mass] 29.3 pg 27.0-32.0 [facility] Nucleated RBC/100 WBC (Bld) [Ratio] 0 % 0-5 [facility] MCHC Auto (RBC) [Mass/Vol]Or dered By: Flavio Concepcion on 01-10-2023 MCHC (RBC) [Mass/Vol] 34.5 g/dL 32-36 [facility] No Panel InformationOrdered By: Flaviojoanne Concepcion on 01-10-2023 Estimated Creatinine Clearance Calc 66.26 ml/min [facility] Estimated GFR (MDRD) Amer 72 mL/min >60 [facility] Comment on above: GFR Calc Estimated GFR (MDRD) Non-Af Amer 60 mL/min >60 [facility] Comment on above: Non- GFR Calc Troponin I High Sensitivity 12 pg/mL 3.0-78.0 [facility] Comment on above: Please Note: [place] t Units and Gender Specific Reference Ranges. For more information see Policy Stat Procedure [place] High Sensitivity Troponin (TNIH) and attachments. Platelets bldOrdered By: Flavio Concepcion on 01-10-2023 Platelets (Bld) [#/Vol] 127 10*3/uL 150-450 [facility] Serum or plasma calcium noy urement (mass/volume)Ordered By: Flaviojoanne Concepcion on 01-10-2023 Calcium [Mass/Vol] 8.2 mg/dL 8.5-10.1 [facility] Serum or plasma creatinine m easurement (mass/volume)Ordered By: Flaviojoanne Concepcion on 01-10-2023 Creatinine [Mass/Vol] 1.31 mg/dL 0.70-1.30 [facility] Comment on above: The validity of the calculated GFR & GFRAA in patients over 70 years has not been determined. Clinical correlation is essential. Serum or plasma urea nitroge n measurement (mass/volume)Ordered By: Flavio Concepcion on 01-10-2023 Urea nitrogen [Mass/Vol] 19 mg/dL - [facility] Thin prep Papanicolaou smear with manual screeningOrdered By: Flavio Concepcion on 01-10-2023 Thin prep Papanicolaou smear with manual screening 4 - [facility] Reminderson 12-16-2022 Reminders - From: Shelly Munguia MA To: Shelly Munguia MA; Sent: 12/15/2022 13:50:33 EDT Show up: 12/15/2022 13:51:00 EDT Subject: colon recall Reminder Message [address] Medina 12/11/17 first recall letter sent Normal [facility] Patient Letter FTon 2022 Patient Letter [facility] (Inserted Image. Bouchra ble to display) December 15, 2022 KRISHAN BURNHAM [address] [place] [address] : 1965 Dear Krishan, This is a reminder that you are due for an appointment with [facility]. Please contact our office at [phone] to schedule your 5 year colon recall Thank you, [facility] Glucose Glucometer (BldC) [M ass/Vol]Ordered By: Timur Abreu on 07-04-2022 Glucose [Mass/Vol] 131 mg/dL 74-106 [facility] Comment on above: MANAGEMENT OF PATIEN T CARE PER NURSING PROTOCOL No Panel InformationOrdered By: Lala Hannah on 06-18-2022 Stool Calprotectin 90 ug/g 0-120 [facility] Comment on above: Concentration Interp retation Follow-Up<16 - 50 ug/g Normal None>50 -120 ug/g Borderline Re-evaluate in 4-6 weeks >120 ug/g Abnormal Repeat as clinically indicatedPerformed at: BN - [facility] [address] [id number] Director: Luis Alfaro MD, Phone: [phone] Stool lactoferrin detection by immunoassayOrdered By: Lala Hannah on 06-18-2022 Lactoferrin IA Ql (Stl) [facility] Absolute lymphocyte countOrd ered By: Lala Hannah on 06-17-2022 Lymphocytes Auto (Unsp spec) [#/Vol] 1.14 10*3/uL 0.83-4.51 [facility] Albumin Elph [Mass/Vol]Order ed By: Lala Hannah on 06-17-2022 Albumin [Mass/Vol] 4.2 g/dL 2.9-4.4 [facility] Atypical perinuclear antineu trophil cytoplasmic antibodies measurementOrdered By: Lala Hannah on 06-17-2022 Neutrophil cytoplasmic Ab.perinuclear.atypical IF (S) [Titer] <1:20 titer Neg:<1:20 [facility] Comment on above: The atypical pANCA p attern has been observed in asignificant percentage of patients with ulcerative colitis,primary sclerosing cholangitis and autoimmune hepatitis.Performed at: - [facility] [address] [id number] Director: Jethro Saenz PhD, Phone: [phone] at: - [facility] [address] [id number] Director: Luis Alfaro MD, Phone: [phone] Basophil percentageOrdered B y: Lala Camden on 06-17-2022 Basophil percentage < 0.2 AI 0.0-0.9 [facility] Basophils/100 WBC (Bld) 0.7 % 0-1 [facility] Bilirubin [Mass/Vol] 0.70 mg/dL 0.20-1.00 [facility] Comment on above: For patients on eltr ombopag therapy, use of Dimension [place] TBIL is not recommended. Chloride [Moles/Vol] 106 mmol/L 98-107 [facility] Eosinophils/100 WBC (Bld) 3.0 % 0-5 [facility] Glucose [Mass/Vol] 131 mg/dL 74-106 [facility] Comment on above: Fasting Glucose resu lt greater than or equal to 126 mg/dL suggests DIABETES MELLITUS per A.D.A. criteria. LDH [Catalytic activity/Vol] 165 U/L 87-241 [facility] Neutrophils (Bld) [#/Vol] 3.5 10*3/uL 2.0-7.7 [facility] Neutrophils/100 WBC (Bld) 65.2 % 47-70 [facility] Potassium [Moles/Vol] 3.8 mmol/L 3.5-5.1 [facility] Protein [Mass/Vol] 8.0 g/dL 6.4-8.2 [facility] Sodium [Moles/Vol] 137 mmol/L 136-145 [facility] WBC (Bld) [#/Vol] 5.4 10*3/uL 4.4-11.0 [facility] Blood erythrocytes count (nu mber/volume)Ordered By: Lala Hannah on 06-17-2022 RBC (Bld) [#/Vol] 5.50 10*6/uL 4.6-6.2 [facility] Blood hemoglobin measurement (mass/volume)Ordered By: Lala Hannah on 06-17-2022 Hemoglobin (Bld) [Mass/Vol] 16.2 g/dL 13.0-16.5 [facility] Blood lymphocytes/100 leukoc ytesOrdered By: Lala Hannah on 06-17-2022 Lymphocytes/100 WBC (Bld) 21.2 % 19-41 [facility] Blood manual differential co mment interpretation (narrative result)Ordered By: Lala Hannah on 06-17-2022 Manual differential comment Bj (Bld) [Interp] 5.4 [facility] Blood monocytes/100 leukocyt esOrdered By: Lala Hannah on 06-17-2022 Monocytes/100 WBC (Bld) 9.7 % 0-10 [facility] Blood platelet mean volumeOr dered By: Lala Hannah on 06-17-2022 Platelet mean volume (Bld) [Entitic vol] 9.5 fL 6.2-12.0 [facility] Determination of erythrocyte mean corpuscular volume (MCV)Ordered By: Lala Hannah on 06-17-2022 MCV (RBC) [Entitic vol] 86.4 fL 80-94 [facility] Dilute Miguel Angel's viper venom timeOrdered By: Melania aSnders on 06-17-2022 dRVVT Coag (PPP) [Time] 33.3 s 0.0-47.0 [facility] Erythrocyte sedimentation ra teOrdered By: Lala Hannah on 06-17-2022 ESR (Bld) [Velocity] 3 mm/h 0-20 [facility] Hematocrit Auto (Bld) [Volum e fraction]Ordered By: Lala Hannah on 06-17-2022 Hematocrit (Bld) [Volume fraction] 47.5 % 40-54 [facility] Interpretation of serum or p lasma protein pattern by immunofixation (narrative resultOrdered By: Lala Hannah on 06-17-2022 Protein Fractions Immunofixation Bj [Interp] See comment [facility] Comment on above: Result: Not Observed Laboratory - Chemistry and C hemistry - challengeOrdered By: Lala Hannah on 06-17-2022 ALP [Catalytic activity/Vol] 53 U/L 45-117 [facility] ALT [Catalytic activity/Vol] 46 U/L 16-61 [facility] CO2 [Moles/Vol] 27.0 mmol/L 21.0-32.0 [facility] Urea nitrogen/Creatinine [Mass ratio] 16.4 mg/mg 10-20 [facility] Laboratory - Hematology and Cell countsOrdered By: Lala Hannah on 06-17-2022 Erythrocyte distribution width (RBC) [Entitic vol] 38.3 fL 35.1-43.9 [facility] Erythrocyte distribution width (RBC) [Ratio] 12.1 % 11.6-14.6 [facility] Immature granulocytes/100 WBC (Bld) 0.200 % 0.0-0.9 [facility] Comment on above: IG% - Immature Granu locytes (promyelocytes, myelocytes and metamyelocytes) > 1% indicates that a LEFT SHIFT is Present. MCH (RBC) [Entitic mass] 29.5 pg 27.0-32.0 [facility] Nucleated RBC/100 WBC (Bld) [Ratio] 0 % 0-5 [facility] MCHC Auto (RBC) [Mass/Vol]Or dered By: Lala Hannah on 06-17-2022 MCHC (RBC) [Mass/Vol] 34.1 g/dL 32-36 [facility] No Panel InformationOrdered By: Lala Hannah on 06-17-2022 Addendum Document Comment . [facility] Comment on above: Protein electrophore sis scan will follow via computer,mail, or business development coordinator delivery. Centromere B Antibody <0.2 AI 0.0-0.9 [facility] Endomysial IgA Antibody Negative Negative [facility] Estimated GFR (MDRD) Amer 84 mL/min >60 [facility] Comment on above: GFR Calc Estimated GFR (MDRD) Non-Af Amer 69 mL/min >60 [facility] Comment on above: Non- GFR Calc Immunoglobulin E 36 IU/mL 6-495 [facility] Miscellaneous Test See comment [facility] Comment on above: TEST RESULT LIMITSIB D [...] developed and its performance characteristics determined by [facility]. It has not been cleared or approved by the Food and Drug Administration. The FDA has determined that such clearance or approval is not necessary.Atypical pANCA Negative Negative Comments Abnormal Suggestive of Crohn's Disease. Pattern is not conclusive for disease behavior risk stratification. TESTING PERFORMED AT [facility]. ORIGINAL REPORT ON FILE IN LAB CONTAINS ADDITIONAL TEST SITE INFORMATION. DREDGE PUMP OPERATOR Antibody <0.2 AI 0.0-0.9 [facility] Platelets bldOrdered By: Coreen Hannah on 06-17-2022 Platelets (Bld) [#/Vol] 151 10*3/uL 150-450 [facility] Serum DNA double strand anti body assay (units/volume)Ordered By: Lala Hannah on 06-17-2022 DNA double strand Ab Qn (S) [IU]/mL 0-9 [facility] Comment on above: Negative <5 Equivoca l 5 - 9 Positive >9 Serum Leonarda-1 antibody assay (u nits/volume)Ordered By: Lala Hannah on 06-17-2022 Leonarda-1 extractable nuclear Ab Qn (S) <0.2 AI 0.0-0.9 [facility] Serum Scl-70 extractable nuc lear antibody assay (units/volume)Ordered By: Lala Hannah on 06-17-2022 SCL-70 extractable nuclear Ab Qn (S) <0.2 AI 0.0-0.9 [facility] Serum Mcintyre extractable nucl ear antibody detectionOrdered By: Lala Hannah on 06-17-2022 Mcintyre extractable nuclear Ab Ql (S) <0.2 AI 0.0-0.9 [facility] Serum [id number] measu rement by electrophoresisOrdered By: Lala Hannah on 06-17-2022 Alpha 1 globulin Elph [Mass/Vol] 0.3 g/dL 0.0-0.4 [facility] Alpha 1 globulin Elph [Mass/Vol] 0.6 g/dL 0.4-1.0 [facility] Serum classic neutrophil cyt oplasmic antibody assay (units/volume)Ordered By: Lala Hannah on 06-17-2022 Neutrophil cytoplasmic Ab.classic Qn (S) <1:20 titer Neg:<1:20 [facility] Serum globulin measurement ( mass/volume)Ordered By: Lala Hannah on 06-17-2022 Globulin (S) [Mass/Vol] 3.0 g/dL 2.2-3.9 [facility] Serum or plasma C reactive p rotein measurement (mass/volume)Ordered By: Lala Hannah on 06-17-2022 CRP [Mass/Vol] mg/L 0.0-3.0 [facility] Comment on above: C-Reactive Protein ( CRP) provides useful information for thediagnosis, therapy and monitoring of inflammatory processesand associated diseases. For the evaluation of Relative Riskfor Cardiovascular Disease, a High Sensitivity CRP (HSCRP)should be ordered. Serum or plasma IgA measurem ent (mass/volume)Ordered By: Lala Hannah on 06-17-2022 IgA [Mass/Vol] 250 mg/dL 90-386 [facility] Serum or plasma IgG measurem ent (mass/volume)Ordered By: Lala Hannah on 06-17-2022 IgG [Mass/Vol] 1184 mg/dL 603-1613 [facility] Serum or plasma IgM measurem ent (mass/volume)Ordered By: Lala Hannah on 06-17-2022 IgM [Mass/Vol] 46 mg/dL 20-172 [facility] Serum or plasma albumin noy urement (mass/volume)Ordered By: Lala Hannah on 06-17-2022 Albumin [Mass/Vol] 4.5 g/dL 3.2-5.0 [facility] Serum or plasma albumin/glob ulin mass ratioOrdered By: Lala Hannah on 06-17-2022 Albumin/Globulin [Mass ratio] 1.3 {ratio} 0.9-2.4 [facility] Serum or plasma beta globuli n measurement by electrophoresis (mass/volume)Ordered By: Lala Hannah on 06-17-2022 Beta globulin Elph [Mass/Vol] 1.2 g/dL 0.7-1.3 [facility] Serum or plasma calcium noy urement (mass/volume)Ordered By: Lala Hannah on 06-17-2022 Calcium [Mass/Vol] 9.5 mg/dL 8.5-10.1 [facility] Serum or plasma creatinine m easurement (mass/volume)Ordered By: Lala Hannah on 06-17-2022 Creatinine [Mass/Vol] 1.16 mg/dL 0.70-1.30 [facility] Comment on above: The validity of the calculated GFR & GFRAA in patients over 70 years has not been determined. Clinical correlation is essential. Serum or plasma gamma globul in measurement by electrophoresis (mass/volume)Ordered By: Lala Hannah on 06-17-2022 Gamma globulin Elph [Mass/Vol] 1.0 g/dL 0.4-1.8 [facility] Serum or plasma immunoelectr ophoresis interpretation (nominal result)Ordered By: Lala Hannah on 06-17-2022 Interpretation IEP [Interp] Comment . [facility] Comment on above: No monoclonality det ected. Serum or plasma urea nitroge n measurement (mass/volume)Ordered By: Lala Hannah on 06-17-2022 Urea nitrogen [Mass/Vol] 19 mg/dL 7-18 [facility] Serum perinuclear neutrophil cytoplasmic antibody titer by immunofluorescenceOrdered By: Lala Hannah on 06-17-2022 Neutrophil cytoplasmic Ab.perinuclear IF (S) [Titer] <1:20 titer Neg:<1:20 [facility] Comment on above: The presence of posi tive fluorescence exhibiting P-ANCA orC-ANCA patterns alone is not specific for the diagnosis ofWegener's Granulomatosis (WG) or microscopic polyangiitis.Decisions about treatment should not be based solely onANCA IFA results. The International ANCA Group Consensusrecommends follow up testing of positive sera with both IN-3 and MPO-ANCA enzyme immunoassays. As many as 5% serumsamples are positive only by EIA. Ref. AM J Clin [id number];111:507-513. Serum tissue transglutaminas e IgA antibody assay (units/volume)Ordered By: Lala Hannah on 06-17-2022 tTG IgA Qn (S) <2 U/mL 0-3 [facility] Comment on above: Negative 0 - 3 Weak Positive 4 - 10 Positive >10 Tissue Transglutaminase (tTG) has been identified as the endomysial antigen. Studies have demonstr- ated that endomysial IgA antibodies have over 99% specificity for gluten sensitive enteropathy. Thin prep Papanicolaou smear with manual screeningOrdered By: Lala Hannah on 06-17-2022 Thin prep Papanicolaou smear with manual screening 25 U/L 15-37 [facility] Thin prep Papanicolaou smear with manual screening 4 5-15 [facility] Thin prep Papanicolaou smear with manual screening 1.5 0.7-1.7 [facility] Thin prep Papanicolaou smear with manual screeningOrdered By: Melania Sanders on 06-17-2022 Thin prep Papanicolaou smear with manual screening 38.2 sec 0.0-47.6 [facility] Thin prep Papanicolaou smear with manual screening 1.01 Ratio 0.00-1.34 [facility] Thin prep Papanicolaou smear with manual screening 36.6 sec 0.0-43.5 [facility] Thin prep Papanicolaou smear with manual screening Comment: . [facility] Comment on above: No lupus anticoagula nt was detected.Performed at: - [address] [id number] Director: Luis Alfaro MD, Phone: [phone] Thrombin time in platelet po or plasmaOrdered By: Melania Sanders on 06-17-2022 Thrombin time Coag (PPP) [Time] 18.2 sec 0.0-23.0 [facility] Total protein bloodOrdered B y: Lala Hannah on 06-17-2022 Protein [Mass/Vol] 7.2 g/dL 6.0-8.5 [facility] Absolute lymphocyte countOrd ered By: Dr. Rodriguez on 05-26-2022 Lymphocytes Auto (Unsp spec) [#/Vol] 1.50 10*3/uL 0.83-4.51 [facility] Basophil percentageOrdered B y: Dr. Rodriguez on 05-26-2022 Basophil percentage 0 SEEN /hpf 0-5 [facility] Basophils/100 WBC (Bld) 0.6 % 0-1 [facility] Chloride [Moles/Vol] 104 mmol/L 98-107 [facility] Eosinophils/100 WBC (Bld) 1.7 % 0-5 [facility] Glucose [Mass/Vol] 121 mg/dL 74-106 [facility] Comment on above: Fasting Glucose resu lt from 100 to 125 mg/dL suggests IMPAIRED HOMEOSTASIS per A.D.A. criteria. Neutrophils (Bld) [#/Vol] 4.8 10*3/uL 2.0-7.7 [facility] Neutrophils/100 WBC (Bld) 66.6 % 47-70 [facility] Potassium [Moles/Vol] 3.9 mmol/L 3.5-5.1 [facility] Sodium [Moles/Vol] 139 mmol/L 136-145 [facility] WBC (Bld) [#/Vol] 7.1 10*3/uL 4.4-11.0 [facility] Bilirubin Test strip Ql (U)O rdered By: Dr. Rodriguez on 05-26-2022 Bilirubin Ql (U) Negative Negative [facility] Blood erythrocytes count (nu mber/volume)Ordered By: Dr. Rodriguez on 05-26-2022 RBC (Bld) [#/Vol] 5.51 10*6/uL 4.6-6.2 [facility] Blood hemoglobin measurement (mass/volume)Ordered By: Dr. Rodriguez on 05-26-2022 Hemoglobin (Bld) [Mass/Vol] 16.1 g/dL 13.0-16.5 [facility] Blood lymphocytes/100 leukoc ytesOrdered By: Dr. Rodriguez on 05-26-2022 Lymphocytes/100 WBC (Bld) 21.1 % 19-41 [facility] Blood monocytes/100 leukocyt esOrdered By: Dr. Rodriguez on 05-26-2022 Monocytes/100 WBC (Bld) 9.6 % 0-10 [facility] Blood platelet mean volumeOr dered By: Dr. Rodriguez on 05-26-2022 Platelet mean volume (Bld) [Entitic vol] 9.6 fL 6.2-12.0 [facility] Determination of erythrocyte mean corpuscular volume (MCV)Ordered By: Dr. Rodriguez on 05-26-2022 MCV (RBC) [Entitic vol] 85.7 fL 80-94 [facility] Hematocrit Auto (Bld) [Volum e fraction]Ordered By: Dr. Rodriguez on 05-26-2022 Hematocrit (Bld) [Volume fraction] 47.2 % 40-54 [facility] Ketones Test strip Ql (U)Ord ered By: Dr. Rodriguez on 05-26-2022 Ketones Ql (U) Negative Negative [facility] - Chemistry and C hemistry - challengeOrdered By: Dr. Rodriguez on 05-26-2022 CO2 [Moles/Vol] 30.0 mmol/L 21.0-32.0 [facility] Urea nitrogen/Creatinine [Mass ratio] 14.2 mg/mg 10-20 [facility] - Hematology and Cell countsOrdered By: Dr. Rodriguez on 05-26-2022 Erythrocyte distribution width (RBC) [Entitic vol] 36.6 fL 35.1-43.9 [facility] Erythrocyte distribution width (RBC) [Ratio] 11.9 % 11.6-14.6 [facility] Immature granulocytes/100 WBC (Bld) 0.400 % 0.0-0.9 [facility] Comment on above: IG% - Immature Granu locytes (promyelocytes, myelocytes and metamyelocytes) > 1% indicates that a LEFT SHIFT is Present. MCH (RBC) [Entitic mass] 29.2 pg 27.0-32.0 [facility] Nucleated RBC/100 WBC (Bld) [Ratio] 0 % 0-5 [facility] MCHC Auto (RBC) [Mass/Vol]Or dered By: Dr. Rodriguez on 05-26-2022 MCHC (RBC) [Mass/Vol] 34.1 g/dL 32-36 [facility] Mucus LM Ql (Urine sed)Order ed By: Dr. Rodriguez on 05-26-2022 Mucus Ql (Urine sed) 0 SEEN /hpf [facility] Nitrite Test strip Ql (U)Ord ered By: Dr. Rodriguez on 05-26-2022 Nitrite Ql (U) Negative Negative [facility] No Panel InformationOrdered By: Dr. Rodriguez on 05-26-2022 Estimated Creatinine Clearance Calc 73.21 ml/min [facility] Estimated GFR (MDRD) Amer 80 mL/min >60 [facility] Comment on above: GFR Calc Estimated GFR (MDRD) Non-Af Amer 66 mL/min >60 [facility] Comment on above: Non- GFR Calc Platelets bldOrdered By: Dr. Rodriguez on 05-26-2022 Platelets (Bld) [#/Vol] 151 10*3/uL 150-450 [facility] Protein Test strip Ql (U)Ord ered By: Dr. Rodriguez on 05-26-2022 Protein Ql (U) Negative Negative [facility] Serum or plasma calcium noy urement (mass/volume)Ordered By: Dr. Rodriguez on 05-26-2022 Calcium [Mass/Vol] 9.2 mg/dL 8.5-10.1 [facility] Serum or plasma creatinine m easurement (mass/volume)Ordered By: Dr. Rodriguez on 05-26-2022 Creatinine [Mass/Vol] 1.20 mg/dL 0.70-1.30 [facility] Comment on above: The validity of the calculated GFR & GFRAA in patients over 70 years has not been determined. Clinical correlation is essential. Serum or plasma urea nitroge n measurement (mass/volume)Ordered By: Dr. Rodriguez on 05-26-2022 Urea nitrogen [Mass/Vol] 17 mg/dL 7-18 [facility] Squamous epithelial cells de tection in urine sediment by light microscopyOrdered By: Dr. Rodriguez on 05-26-2022 Epithelial cells.squamous LM Ql (Urine sed) 0 SEEN /hpf 0-5 [facility] Thin prep Papanicolaou smear with manual screeningOrdered By: Dr. Rodriguez on 05-26-2022 Thin prep Papanicolaou smear with manual screening 5 5-15 [facility] Urine blood detectionOrdered By: Dr. Rodriguez on 05-26-2022 RBC Ql (U) Negative Negative [facility] RBC Ql (U) 0 SEEN /hpf 0-5 [facility] Urine clarityOrdered By: Dr. Rodriguez on 05-26-2022 Clarity (U) Clear Clear [facility] Urine color determinationOrd ered By: Dr. Rodriguez on 05-26-2022 Color (U) Yellow Yellow [facility] Urine glucose detectionOrder ed By: Dr. Rodriguez on 05-26-2022 Glucose Ql (U) 1000 mg/dl Normal [facility] Urine leukocyte esterase det ection by dipstickOrdered By: Dr. Rodriguez on 05-26-2022 Leukocyte esterase Test strip Ql (U) Negative Negative [facility] Urine pHOrdered By: Dr. Wes helms on 05-26-2022 pH (U) 7.0 [pH] 5.0 - 8.0 [facility] Urine sediment bacteria coun t by microscopy (number/high power field)Ordered By: Dr. Rodriguez on 05-26-2022 Bacteria LM.HPF (Urine sed) [#/Area] 0 /[HPF] None Seen [facility] Urine specific gravity measu rementOrdered By: Dr. Rodriguez on 05-26-2022 Specific gravity (U) [Rel density] 1.010 1.002-1.03 0 [facility] Urobilinogen Auto test strip Ql (U)Ordered By: Dr. Rodriguez on 05-26-2022 Urobilinogen Ql (U) Normal mg/dl Normal [facility] Absolute lymphocyte countOrd ered By: Dr. Power on 03-24-2022 Lymphocytes Auto (Unsp spec) [#/Vol] 1.67 10*3/uL 0.83-4.51 [facility] Basophil percentageOrdered B y: Dr. Power on 03-24-2022 Basophils/100 WBC (Bld) 0.6 % 0-1 [facility] Bilirubin [Mass/Vol] 0.70 mg/dL 0.20-1.00 [facility] Comment on above: For patients on eltr ombopag therapy, use of Dimension [place] TBIL is not recommended. Chloride [Moles/Vol] 106 mmol/L 98-107 [facility] Eosinophils/100 WBC (Bld) 2.6 % 0-5 [facility] Glucose [Mass/Vol] 115 mg/dL 74-106 [facility] Comment on above: Fasting Glucose resu lt from 100 to 125 mg/dL suggests IMPAIRED HOMEOSTASIS per A.D.A. criteria. Neutrophils (Bld) [#/Vol] 4.3 10*3/uL 2.0-7.7 [facility] Neutrophils/100 WBC (Bld) 60.9 % 47-70 [facility] Potassium [Moles/Vol] 4.0 mmol/L 3.5-5.1 [facility] Protein [Mass/Vol] 7.5 g/dL 6.4-8.2 [facility] Sodium [Moles/Vol] 140 mmol/L 136-145 [facility] WBC (Bld) [#/Vol] 7.0 10*3/uL 4.4-11.0 [facility] Blood erythrocytes count (nu mber/volume)Ordered By: Dr. Power on 03-24-2022 RBC (Bld) [#/Vol] 5.53 10*6/uL 4.6-6.2 [facility] Blood hemoglobin measurement (mass/volume)Ordered By: Dr. Power on 03-24-2022 Hemoglobin (Bld) [Mass/Vol] 16.2 g/dL 13.0-16.5 [facility] Blood lymphocytes/100 leukoc ytesOrdered By: Dr. Power on 03-24-2022 Lymphocytes/100 WBC (Bld) 23.9 % 19-41 [facility] Blood monocytes/100 leukocyt esOrdered By: Dr. Power on 03-24-2022 Monocytes/100 WBC (Bld) 11.9 % 0-10 [facility] Blood platelet mean volumeOr dered By: Dr. Power on 03-24-2022 Platelet mean volume (Bld) [Entitic vol] 10.0 fL 6.2-12.0 [facility] Determination of erythrocyte mean corpuscular volume (MCV)Ordered By: Dr. Power on 03-24-2022 MCV (RBC) [Entitic vol] 87.3 fL 80-94 [facility] Direct bilirubinOrdered By: Dr. Power on 03-24-2022 Bilirubin.direct [Mass/Vol] 0.18 mg/dL 0.00-0.30 [facility] Hematocrit Auto (Bld) [Volum e fraction]Ordered By: Dr. Power on 03-24-2022 Hematocrit (Bld) [Volume fraction] 48.3 % 40-54 [facility] - Chemistry and C hemistry - challengeOrdered By: Dr. Power on 03-24-2022 ALP [Catalytic activity/Vol] 53 U/L 45-117 [facility] ALT [Catalytic activity/Vol] 32 U/L 16-61 [facility] CO2 [Moles/Vol] 27.0 mmol/L 21.0-32.0 [facility] Globulin (S) [Mass/Vol] 3.5 g/dL 2.2-4.2 [facility] Lipase [Catalytic activity/Vol] 195 U/L 73-393 [facility] Magnesium [Mass/Vol] 2.4 mg/dL 1.6-2.6 [facility] Urea nitrogen/Creatinine [Mass ratio] 18.4 mg/mg 10-20 [facility] - Hematology and Cell countsOrdered By: Dr. Power on 03-24-2022 Erythrocyte distribution width (RBC) [Entitic vol] 40.3 fL 35.1-43.9 [facility] Erythrocyte distribution width (RBC) [Ratio] 12.6 % 11.6-14.6 [facility] Immature granulocytes/100 WBC (Bld) 0.100 % 0.0-0.9 [facility] Comment on above: IG% - Immature Granu locytes (promyelocytes, myelocytes and metamyelocytes) > 1% indicates that a LEFT SHIFT is Present. MCH (RBC) [Entitic mass] 29.3 pg 27.0-32.0 [facility] Nucleated RBC/100 WBC (Bld) [Ratio] 0 % 0-5 [facility] MCHC Auto (RBC) [Mass/Vol]Or dered By: Dr. Power on 03-24-2022 MCHC (RBC) [Mass/Vol] 33.5 g/dL 32-36 [facility] No Panel InformationOrdered By: Dr. Power on 03-24-2022 Troponin I High Sensitivity 11 pg/mL 3.0-78.0 [facility] Comment on above: Please Note: New Ann[place] t Units and Gender Specific Reference Ranges. For more information see Policy Stat Procedure [place] High Sensitivity Troponin (TNIH) and attachments. Estimated Creatinine Clearance Calc 77.06 ml/min [facility] Estimated GFR (MDRD) Amer 85 mL/min >60 [facility] Comment on above: GFR Calc Estimated GFR (MDRD) Non-Af Amer 70 mL/min >60 [facility] Comment on above: Non- GFR Calc Platelets bldOrdered By: Dr. Power on 03-24-2022 Platelets (Bld) [#/Vol] 158 10*3/uL 150-450 [facility] Serum or plasma albumin noy urement (mass/volume)Ordered By: Dr. Power on 03-24-2022 Albumin [Mass/Vol] 4.0 g/dL 3.2-5.0 [facility] Serum or plasma calcium noy urement (mass/volume)Ordered By: Dr. Power on 03-24-2022 Calcium [Mass/Vol] 8.8 mg/dL 8.5-10.1 [facility] Serum or plasma creatinine m easurement (mass/volume)Ordered By: Dr. Power on 03-24-2022 Creatinine [Mass/Vol] 1.14 mg/dL 0.70-1.30 [facility] Comment on above: The validity of the calculated GFR & GFRAA in patients over 70 years has not been determined. Clinical correlation is essential. Serum or plasma urea nitroge n measurement (mass/volume)Ordered By: Dr. Power on 03-24-2022 Urea nitrogen [Mass/Vol] 21 mg/dL 7-18 [facility] Thin prep Papanicolaou smear with manual screeningOrdered By: Dr. Power on 03-24-2022 Thin prep Papanicolaou smear with manual screening 13 U/L 15-37 [facility] Thin prep Papanicolaou smear with manual screening 7 5-15 [facility] Dilute Miguel Angel's viper venom timeon 01-31-2022 dRVVT Coag (PPP) [Time] 44.7 s 0.0-47.0 [facility] Thin prep Papanicolaou smear with manual screeningon 01-31-2022 Thin prep Papanicolaou smear with manual screening 40.6 sec 0.0-47.6 [facility] Thin prep Papanicolaou smear with manual screening 1.12 Ratio 0.00-1.34 [facility] Thin prep Papanicolaou smear with manual screening 35.7 sec 0.0-51.9 [facility] Thin prep Papanicolaou smear with manual screening Comment: . [facility] Comment on above: No lupus anticoagula nt was detected.Performed at: [facility] [id number] Director: Luis Alfaro MD, Phone: [phone] Thrombin time in platelet po or plasmaon 01-31-2022 Thrombin time Coag (PPP) [Time] 20.3 sec 0.0-23.0 [facility] EP PanelOrdered By: Adi patino on 01-15-2022 Gastrointestinal pathogens panel GITA+probe (Stl) [facility] Absolute lymphocyte countOrd ered By: Adi Nevarez on 11-18-2022 Lymphocytes Auto (Unsp spec) [#/Vol] 0.97 10*3/uL 0.83-4.51 [facility] Basophil percentageOrdered B y: Adi Nevarez on 01-14-2022 Basophil percentage 0 SEEN /hpf 0-5 [facility] Basophils/100 WBC (Bld) 0.3 % 0-1 [facility] Bilirubin [Mass/Vol] 0.90 mg/dL 0.20-1.00 [facility] Comment on above: For patients on eltr ombopag therapy, use of Dimension [place] TBIL is not recommended. Chloride [Moles/Vol] 102 mmol/L 98-107 [facility] Eosinophils/100 WBC (Bld) 0.8 % 0-5 [facility] Glucose [Mass/Vol] 116 mg/dL 74-106 [facility] Comment on above: Fasting Glucose resu lt from 100 to 125 mg/dL suggests IMPAIRED HOMEOSTASIS per A.D.A. criteria. Neutrophils (Bld) [#/Vol] 4.4 10*3/uL 2.0-7.7 [facility] Neutrophils/100 WBC (Bld) 68.1 % 47-70 [facility] Potassium [Moles/Vol] 3.6 mmol/L 3.5-5.1 [facility] Protein [Mass/Vol] 7.8 g/dL 6.4-8.2 [facility] Sodium [Moles/Vol] 137 mmol/L 136-145 [facility] WBC (Bld) [#/Vol] 6.5 10*3/uL 4.4-11.0 [facility] Lactate [Moles/Vol] 0.7 mmol/L 0.4-2.0 [facility] Bilirubin Test strip Ql (U)O rdered By: Adi Nevarez on 01-14-2022 Bilirubin Ql (U) Negative Negative [facility] Blood erythrocytes count (nu mber/volume)Ordered By: Adi Nevarez on 01-14-2022 RBC (Bld) [#/Vol] 5.79 10*6/uL 4.6-6.2 [facility] Blood hemoglobin measurement (mass/volume)Ordered By: Adi Nevarez on 01-14-2022 Hemoglobin (Bld) [Mass/Vol] 16.7 g/dL 13.0-16.5 [facility] Blood lymphocytes/100 leukoc ytesOrdered By: Adi Nevarez on 01-14-2022 Lymphocytes/100 WBC (Bld) 14.9 % 19-41 [facility] Blood monocytes/100 leukocyt esOrdered By: Adi Nevarez on 01-14-2022 Monocytes/100 WBC (Bld) 15.7 % 0-10 [facility] Blood platelet mean volumeOr dered By: Adi Nevarez on 01-14-2022 Platelet mean volume (Bld) [Entitic vol] 10.1 fL 6.2-12.0 [facility] Determination of erythrocyte mean corpuscular volume (MCV)Ordered By: Adi Nevarez on 01-14-2022 MCV (RBC) [Entitic vol] 85.0 fL 80-94 [facility] Hematocrit Auto (Bld) [Volum e fraction]Ordered By: Adi Nevarez on 01-14-2022 Hematocrit (Bld) [Volume fraction] 49.2 % 40-54 [facility] INR in Blood by Coagulation assayOrdered By: Adi Nevarez on 01-14-2022 INR Coag (Bld) [Relative time] 1.1 {INR} [facility] Ketones Test strip Ql (U)Ord ered By: Adi Nevarez on 01-14-2022 Ketones Ql (U) 5 mg/dl Negative [facility] - Chemistry and C hemistry - challengeOrdered By: Adi Nevarez on 01-14-2022 ALP [Catalytic activity/Vol] 51 U/L 45-117 [facility] ALT [Catalytic activity/Vol] 51 U/L 16-61 [facility] CO2 [Moles/Vol] 27.0 mmol/L 21.0-32.0 [facility] Globulin (S) [Mass/Vol] 3.5 g/dL 2.2-4.2 [facility] Lipase [Catalytic activity/Vol] 72 U/L 73-393 [facility] Urea nitrogen/Creatinine [Mass ratio] 19.3 mg/mg 10-20 [facility] - CoagulationOrde red By: Adi Nevarez on 01-14-2022 PT Coag (PPP) [Time] 14.0 s 11.7-14.9 [facility] - Hematology and Cell countsOrdered By: Adi Nevarez on 01-14-2022 Erythrocyte distribution width (RBC) [Entitic vol] 39.5 fL 35.1-43.9 [facility] Erythrocyte distribution width (RBC) [Ratio] 13.0 % 11.6-14.6 [facility] Immature granulocytes/100 WBC (Bld) 0.200 % 0.0-0.9 [facility] Comment on above: IG% - Immature Granu locytes (promyelocytes, myelocytes and metamyelocytes) > 1% indicates that a LEFT SHIFT is Present. MCH (RBC) [Entitic mass] 28.8 pg 27.0-32.0 [facility] Nucleated RBC/100 WBC (Bld) [Ratio] 0 % 0-5 [facility] MCHC Auto (RBC) [Mass/Vol]Or dered By: Adi Nevarez on 01-14-2022 MCHC (RBC) [Mass/Vol] 33.9 g/dL 32-36 [facility] Mucus LM Ql (Urine sed)Order ed By: Adi Nevarez on 01-14-2022 Mucus Ql (Urine sed) 0 SEEN /hpf [facility] Nitrite Test strip Ql (U)Ord ered By: Adi Nevarez on 01-14-2022 Nitrite Ql (U) Negative Negative [facility] No Panel InformationOrdered By: Adi Nevarez on 01-14-2022 Estimated Creatinine Clearance Calc 80.60 ml/min [facility] Estimated GFR (MDRD) Amer 90 mL/min >60 [facility] Comment on above: GFR Calc Estimated GFR (MDRD) Non-Af Amer 74 mL/min >60 [facility] Comment on above: Non- GFR Calc Platelets bldOrdered By: Randa Nevarez on 01-14-2022 Platelets (Bld) [#/Vol] 144 10*3/uL 150-450 [facility] Protein Test strip Ql (U)Ord ered By: Adi Nevarez on 01-14-2022 Protein Ql (U) Negative Negative [facility] Serum or plasma albumin noy urement (mass/volume)Ordered By: Adi Nevarez on 01-14-2022 Albumin [Mass/Vol] 4.3 g/dL 3.2-5.0 [facility] Serum or plasma albumin/glob ulin mass ratioOrdered By: Adi Nevarez on 01-14-2022 Albumin/Globulin [Mass ratio] 1.2 {ratio} 0.9-2.4 [facility] Serum or plasma calcium noy urement (mass/volume)Ordered By: Adi Nevarez on 01-14-2022 Calcium [Mass/Vol] 9.0 mg/dL 8.5-10.1 [facility] Serum or plasma creatinine m easurement (mass/volume)Ordered By: Adi Nevarez on 01-14-2022 Creatinine [Mass/Vol] 1.09 mg/dL 0.70-1.30 [facility] Comment on above: The validity of the calculated GFR & GFRAA in patients over 70 years has not been determined. Clinical correlation is essential. Serum or plasma urea nitroge n measurement (mass/volume)Ordered By: Adi Nevarez on 01-14-2022 Urea nitrogen [Mass/Vol] 21 mg/dL 7- [facility] Squamous epithelial cells de tection in urine sediment by light microscopyOrdered By: Adi Nevarez on 01-14-2022 Epithelial cells.squamous LM Ql (Urine sed) 0 SEEN /hpf 0-5 [facility] Thin prep Papanicolaou smear with manual screeningOrdered By: Adi Nevarez on 01-14-2022 Thin prep Papanicolaou smear with manual screening 28 U/L 15-37 [facility] Thin prep Papanicolaou smear with manual screening 8 5-15 [facility] Urine blood detectionOrdered By: Adi Nevarez on 01-14-2022 RBC Ql (U) 10 /ul Negative [facility] RBC Ql (U) 0 SEEN /hpf 0-5 [facility] Urine clarityOrdered By: Randa Nevarez on 01-14-2022 Clarity (U) Clear Clear [facility] Urine color determinationOrd ered By: Adi Nevarez on 01-14-2022 Color (U) Straw Yellow [facility] Urine glucose detectionOrder ed By: Adi Nevarez on 01-14-2022 Glucose Ql (U) 1000 mg/dl Normal [facility] Urine leukocyte esterase det ection by dipstickOrdered By: Adi Nevarez on 01-14-2022 Leukocyte esterase Test strip Ql (U) Negative Negative [facility] Urine pHOrdered By: Adi patino on 01-14-2022 pH (U) 6.0 [pH] 5.0 - 8.0 [facility] Urine sediment bacteria coun t by microscopy (number/high power field)Ordered By: Adi Nevarez on 01-14-2022 Bacteria LM.HPF (Urine sed) [#/Area] 0 /[HPF] None Seen [facility] Urine specific gravity measu rementOrdered By: Adi Nevarez on 01-14-2022 Specific gravity (U) [Rel density] 1.015 1.002-1.03 0 [facility] Urobilinogen Auto test strip Ql (U)Ordered By: Adi Nevarez on 01-14-2022 Urobilinogen Ql (U) Normal mg/dl Normal [facility] Absolute lymphocyte countOrd ered By: Melania Sanders on 01-05-2022 Lymphocytes Auto (Unsp spec) [#/Vol] 1.37 10*3/uL 0.83-4.51 [facility] Basophil percentageOrdered B y: Melania Sanders on 01-05-2022 Basophils/100 WBC (Bld) 0.5 % 0-1 [facility] Bilirubin [Mass/Vol] 0.80 mg/dL 0.20-1.00 [facility] Comment on above: For patients on eltr ombopag therapy, use of Dimension [place] TBIL is not recommended. Chloride [Moles/Vol] 103 mmol/L 98-107 [facility] Cholesterol [Mass/Vol] 149 mg/dL <200 [facility] Comment on above: <200 mg/dL Desirable 200-240 mg/dL Borderline >240 mg/dL High Risk Eosinophils/100 WBC (Bld) 2.0 % 0-5 [facility] Glucose [Mass/Vol] 101 mg/dL 74-106 [facility] Comment on above: Fasting Glucose resu lt from 100 to 125 mg/dL suggests IMPAIRED HOMEOSTASIS per A.D.A. criteria. Neutrophils (Bld) [#/Vol] 4.3 10*3/uL 2.0-7.7 [facility] Neutrophils/100 WBC (Bld) 66.4 % 47-70 [facility] Potassium [Moles/Vol] 3.6 mmol/L 3.5-5.1 [facility] Protein [Mass/Vol] 7.8 g/dL 6.4-8.2 [facility] Sodium [Moles/Vol] 138 mmol/L 136-145 [facility] Triglyceride [Mass/Vol] 137 mg/dL <199 [facility] Comment on above: The drugs N-Acetylcy steine and Metamizole may falsely depress this assay.Serum Triglycerides Reference Interval Normal <150 mg/dL Borderline high 150 - 199 mg/dL High 200 - 499 mg/dL Very High > or = 500 mg/dL WBC (Bld) [#/Vol] 6.4 10*3/uL 4.4-11.0 [facility] Blood erythrocytes count (nu mber/volume)Ordered By: Melania Sanders on 01-05-2022 RBC (Bld) [#/Vol] 5.50 10*6/uL 4.6-6.2 [facility] Blood hemoglobin measurement (mass/volume)Ordered By: Melania Sanders on 01-05-2022 Hemoglobin (Bld) [Mass/Vol] 16.1 g/dL 13.0-16.5 [facility] Blood lymphocytes/100 leukoc ytesOrdered By: Melania Sanders on 01-05-2022 Lymphocytes/100 WBC (Bld) 21.3 % 19-41 [facility] Blood monocytes/100 leukocyt esOrdered By: Melania Sanders on 01-05-2022 Monocytes/100 WBC (Bld) 9.5 % 0-10 [facility] Blood or tissue coagulation factor II targeted mutation analysis by molecular geneticOrdered By: Melania Sanders on 01-05-2022 F2 gene targeted mutation analysis [employer] Nom (Bld/Tiss) Comment . [facility] Comment on above: Result: c.*97G>A - N [...] in theF2 gene and a c.1601G>A (p. [id number]) variant in the F5 gene(commonly referred to as Factor V Leiden) have an approximately 20-fold increased risk for venous thromboembolism. Risks are likely sedrick even higher in more complex genotype combinations involving theF2 c.*97G>A variant and Factor V Leiden (PMID: 39083912). Additionalrisk factors include but are not limited [...] for health care providers to discussresults at [phone] ([phone]).Test Details:Variant analyzed: c.*97G>A, previously referred to as [id number]/Limitations:DNA analysis of the F2 gene (NM_000506.5) was [...] was developed and its performance characteristics determinedby [employer]. It has not been cleared or approved by the Food and DrugAdministration.References:Ward S, Mahsa STOUT, Harinder R, Ashley WW, Jed JH; [employer] ProfessionalPractice and Guidelines Committee. Addendum: [place] [employer] consensus statement on factor V Leiden mutationtesting. [employer]. 2020May 01. doi: 10.1038/e35784-722-69743-a.PMID: 86471645.Leland SCHMIDT. Prothrombin Thrombophilia. 2005Sep 20[Updated 2020Apr 02]. In: Fredo MP, Ciro HH, Bo RA, et al.,editors. John(R) [Internet]. [place] ([place]): Merged with [facility]; [id number]. Available from:https://www.ncbi.nlm.nih.gov/books/OPN4630/Jamse S, Mahsa STOUT, Pablo X, Aldo B, Shahzad EB, Kika P, Jazmín POTTER;[facility] Laboratory Material Mover Committee. Venous thromboembolismlaboratory testing (factor V Leiden and factor II c.*97G>A),2018 update: a technical standard of the [place] [employer] ([employer]). [employer]. 2018 Jan;20(12):0793-9347.doi: 10.1038/y14872-062-7430-p. Epub 2017Dec 01. PMID: 67577020.Adrienne Carballo, PhD, Kishore Burgess PhDGreg Shields, PhD, Kory Garcia, PhD, Christel Anand, PhD, SOILA Caicedo, PhD, Katherine Warner, PhD, Lynn Chakraborty, PhD, [facility] Blood platelet mean volumeOr dered By: Melania Sanders on 01-05-2022 Platelet mean volume (Bld) [Entitic vol] 9.8 fL 6.2-12.0 [facility] Determination of erythrocyte mean corpuscular volume (MCV)Ordered By: Melania Sanders on 01-05-2022 MCV (RBC) [Entitic vol] 84.5 fL 80-94 [facility] Dilute Miguel Angel's viper venom timeOrdered By: Melania Sanders on 01-05-2022 dRVVT Coag (PPP) [Time] 47.6 s 0.0-47.0 [facility] Hematocrit Auto (Bld) [Volum e fraction]Ordered By: Melania Sanders on 01-05-2022 Hematocrit (Bld) [Volume fraction] 46.5 % 40-54 [facility] - Chemistry and C hemistry - challengeOrdered By: Melania [facility] on 01-05-2022 ALP [Catalytic activity/Vol] 54 U/L 45-117 [facility] ALT [Catalytic activity/Vol] 42 U/L 16-61 [facility] CO2 [Moles/Vol] 26.0 mmol/L 21.0-32.0 [facility] Globulin (S) [Mass/Vol] 3.6 g/dL 2.2-4.2 [facility] Urea nitrogen/Creatinine [Mass ratio] 21.0 mg/mg 10-20 [facility] - Hematology and Cell countsOrdered By: Melania [facility] on 01-05-2022 Erythrocyte distribution width (RBC) [Entitic vol] 39.9 fL 35.1-43.9 [facility] Erythrocyte distribution width (RBC) [Ratio] 13.2 % 11.6-14.6 [facility] Immature granulocytes/100 WBC (Bld) 0.300 % 0.0-0.9 [facility] Comment on above: IG% - Immature Granu locytes (promyelocytes, myelocytes and metamyelocytes) > 1% indicates that a LEFT SHIFT is Present. MCH (RBC) [Entitic mass] 29.3 pg 27.0-32.0 [facility] Nucleated RBC/100 WBC (Bld) [Ratio] 0 % 0-5 [facility] MCHC Auto (RBC) [Mass/Vol]Or dered By: Melania Sanders on 01-05-2022 MCHC (RBC) [Mass/Vol] 34.6 g/dL 32-36 [facility] No Panel InformationOrdered By: Melaniamirella Sanders on 01-05-2022 Anti-Cardiolipin IgM Antibody < 9 MPL U/mL 0-12 [facility] Comment on above: Negative: <13 Indete rminate: 13 - 20 Low-Med Positive: >20 - 80 High Positive: >80 Coagulation Factor VIII Activity 112 % 56-140 [facility] Estimated GFR (MDRD) Amer 100 mL/min >60 [facility] Comment on above: GFR Calc Estimated GFR (MDRD) Non-Af Amer 82 mL/min >60 [facility] Comment on above: Non- GFR Calc Factor V Leiden Mutation Comment . [facility] Comment on above: Result: c.1601G>A (p .[id number]) - Not DetectedThis result is not associated with an increased risk for venousthromboembolism. See Additional Clinical Information andComments.Additional Clinical Information:Venous thromboembolism is a multifactorial diseaseinfluenced by genetic, environmental, and circumstantialrisk factors. The c.1601G>A (p. [id number]) variant in theF5 gene, commonly referred to [...] F2 c.*97G>Avariant and Factor V Leiden (PMID: 15195256). Additionalrisk factors include but are not limited [...] for health careproviders to discuss results at [phone] ([id number]).Test Details:Variant Analyzed: c.1601G>A (p. [id number]), referred toas Factor V LeidenMethods/Limitations:DNA analysis of [...] was developed and its performance characteristicsdetermined by [employer] It has not been cleared orapproved by the Food and Drug Administration.References:Ward Escobedo, Mahsa STOUT, Harinder R, Ashley WW, Jed STONER; ACMGProfessional Practice and Guidelines Committee. Addendum:[employer] [employer] consensus statement onfactor V Leiden mutation testing. St[employer]. 2020May 01.doi: 10.1038/n03473-696-35727-r. PMID: 96308405.Leland SCHMIDT. Factor V Leiden Thrombophilia. 1998July 10[Updated 2017Mar 02]. In: Fredo MP, Ciro HH, Bo RA,et al., editors. John(R) [Internet]. [place] ([place]):[facility]; 5912-6238. Availablefrom: https://www.ncbi.nlm.nih.gov/books/WJM6353/James Escobedo, Mahsa STOUT, Pablo X, Aldo B, Shahzad EB, Kika P,Jazmín CS; ACMG Laboratory Material Mover Committee.Venous thromboembolism laboratory testing (factor V Leidenand factor II c.*97G>A), 2018 update: a technical standardof the [employer] [employer] and [employer](ACMG). Stacy [employer]. 2017;20(12):3345-8941. doi:10.1038/[id number]-n. Epub 2017Dec 01. PMID: 43769947.Adrienne Carballo, PhD, Kishore Burgess, PhDGreg Shields, PhD, Kory Garcia, PhD, Christel Anand, PhD, FACW Amanda Caicedo, PhD, Katherine Warner, PhD, Lynn Chakraborty, PhD, [facility] Homocysteine 9.4 umol/L 3.2-10.7 [facility] Platelet poor plasma antithr ombin actual/normal ratio by chromogenic method (relativeOrdered By: Melania Sanders on 01-05-2022 Antithrombin actual/normal Chromogenic method (PPP) [Rel catalytic activity/Vol] 95 % 75-135 [facility] Comment on above: Direct Xa inhibitor anticoagulants such as rivaroxaban,apixaban and edoxaban will lead to spuriously elevatedantithrombin activity levels possibly masking a deficiency. Platelet poor plasma antithr ombin antigen detection by immunoassayOrdered By: Melania Sanders on 01-05-2022 Antithrombin Ag IA Ql (PPP) 85 % 72-124 [facility] Comment on above: This test was kathrineeljoanne mane and its performance characteristicsdetermined by [employer] It has not been cleared orapproved by the Food and Drug Administration. Platelets bldOrdered By: Dustin Sanders on 01-05-2022 Platelets (Bld) [#/Vol] 140 10*3/uL 150-450 [facility] Protein C antigen assayOrder ed By: Melania Sanders on 01-05-2022 Protein C Ag actual/normal IA (PPP) [Relative mass conc] 97 % 60-150 [facility] Protein S measurement in cesario telet poor plasma by coagulation assay (units/volume)Ordered By: Melania Sanders on 01-05-2022 Protein S Coag Qn (PPP) 96 % 60-150 [facility] Comment on above: This test was develo ped and its performance characteristicsdetermined by [employer] It has not been cleared orapproved by the Food and Drug Administration. Protein S, freeOrdered By: Lionel Sanders on 01-05-2022 Protein S Free Ag IA Qn (PPP) 95 % 61-136 [facility] Serum beta 2 glycoprotein 1 IgA antibody detectionOrdered By: Melania Sanders on 01-05-2022 Beta 2 glycoprotein 1 IgA Ql (S) <9 0-25 [facility] Comment on above: Result Units: GPI Ig [...] glycoprotein 1 IgG Ql (S) <9 0-20 [facility] Comment on above: Result Units: GPI Ig [...] glycoprotein 1 IgM Ql (S) <9 0-32 [facility] Comment on above: Result Units: GPI Ig [...] Qn (S) < 9 GPL U/mL 0-14 [facility] Comment on above: Negative: <15 Indete rminate: 15 - 20 Low-Med Positive: >20 - 80 High Positive: >80 Serum or plasma albumin noy urement (mass/volume)Ordered By: Melania Sanders on 01-05-2022 Albumin [Mass/Vol] 4.2 g/dL 3.2-5.0 [facility] Serum or plasma albumin/glob ulin mass ratioOrdered By: Melania Sanders on 01-05-2022 Albumin/Globulin [Mass ratio] 1.2 {ratio} 0.9-2.4 [facility] Serum or plasma calcium noy urement (mass/volume)Ordered By: Melania Sanders on 01-05-2022 Calcium [Mass/Vol] 8.8 mg/dL 8.5-10.1 [facility] Serum or plasma cardiolipin IgA antibody assay (units/volume)Ordered By: Melania Sanders on 01-05-2022 Cardiolipin IgA Qn < 9 APL U/mL 0-11 [facility] Comment on above: Negative: <12 Indete rminate: 12 - 20 Low-Med Positive: >20 - 80 High Positive: >80 Serum or plasma cholesterol in HDL measurement (mass/volume)Ordered By: Melania Sanders on 01-05-2022 Cholesterol in HDL [Mass/Vol] 33 mg/dL >40 [facility] Comment on above: The drugs N-Acetylcy steine and Metamizole may falsely depress this assay. Reference Range HDL <40 mg/dL Low HDL Cholesterol HDL >or= 60 mg/dL High HDL Cholesterol Serum or plasma cholesterol in VLDL measurement (mass/volume)Ordered By: Melania Sanders on 01-05-2022 Cholesterol in VLDL [Mass/Vol] 27 mg/dL 5-40 [facility] Serum or plasma creatinine m easurement (mass/volume)Ordered By: Melania Sanders on 01-05-2022 Creatinine [Mass/Vol] 1.00 mg/dL 0.70-1.30 [facility] Comment on above: The validity of the calculated GFR & GFRAA in patients over 70 years has not been determined. Clinical correlation is essential. Serum or plasma low density lipoprotein (LDL) cholesterol measurement (mass/volume)Ordered By: Melania Sanders on 01-05-2022 Cholesterol in LDL [Mass/Vol] 89 mg/dL 0-130 [facility] Serum or plasma urea nitroge n measurement (mass/volume)Ordered By: Melania Sanders on 01-05-2022 Urea nitrogen [Mass/Vol] 21 mg/dL 7-18 [facility] Thin prep Papanicolaou smear with manual screeningOrdered By: Melania Sanders on 01-05-2022 Thin prep Papanicolaou smear with manual screening 26 U/L 15-37 [facility] Thin prep Papanicolaou smear with manual screening 9 5-15 [facility] Thin prep Papanicolaou smear with manual screening 45.1 sec 0.0-47.6 [facility] Thin prep Papanicolaou smear with manual screening 1.21 Ratio 0.00-1.34 [facility] Thin prep Papanicolaou smear with manual screening 35.8 sec 0.0-51.9 [facility] Thin prep Papanicolaou smear with manual screening Comment: . [facility] Comment on above: Results are consiste nt [...] time Coag (PPP) [Time] 18.8 sec 0.0-23.0 [facility] Von Willebrand factor (vWF) ristocetin cofactor actual/normal in platelet poor plasmaOrdered By: Melania Sanders on 01-05-2022 vWf ristocetin cofactor act actual/normal Platelet aggregation (PPP) [Relative time] 85 % 50-200 [facility] Comment on above: Performed at: [address] [id number] Director: Luis Alfaro MD, Phone: [phone] at: - [facility] [id number] Director: Jethro Saenz PhD, Phone: [phone] at: TG - [facility] [id number] [place], [place] [id number] Director: Fabián Wright [facility], Phone: [phone] Culture, urineOrdered By: Ra yoana Sanders on 12-02-2021 Bacteria identified Cx Nom (U) Culture exhibits no growth. [facility] Absolute lymphocyte countOrd ered By: Dr. Phillips on 12-01-2021 Lymphocytes Auto (Unsp spec) [#/Vol] 1.63 10*3/uL 0.83-4.51 [facility] Basophil percentageOrdered B y: Dr. Phillips on 12-01-2021 Basophils/100 WBC (Bld) 0.5 % 0-1 [facility] Bilirubin [Mass/Vol] 0.50 mg/dL 0.20-1.00 [facility] Comment on above: For patients on eltr ombopag therapy, use of Dimension [place] TBIL is not recommended. Chloride [Moles/Vol] 109 mmol/L 98-107 [facility] Cholesterol [Mass/Vol] 114 mg/dL <200 [facility] Comment on above: <200 mg/dL Desirable 200-240 mg/dL Borderline >240 mg/dL High Risk Eosinophils/100 WBC (Bld) 4.0 % 0-5 [facility] Glucose [Mass/Vol] 96 mg/dL 74-106 [facility] Neutrophils (Bld) [#/Vol] 3.9 10*3/uL 2.0-7.7 [facility] Neutrophils/100 WBC (Bld) 60.4 % 47-70 [facility] Potassium [Moles/Vol] 4.2 mmol/L 3.5-5.1 [facility] Protein [Mass/Vol] 6.8 g/dL 6.4-8.2 [facility] Sodium [Moles/Vol] 142 mmol/L 136-145 [facility] Triglyceride [Mass/Vol] 115 mg/dL <199 [facility] Comment on above: The drugs N-Acetylcy steine and Metamizole may falsely depress this assay.Serum Triglycerides Reference Interval Normal <150 mg/dL Borderline high 150 - 199 mg/dL High 200 - 499 mg/dL Very High > or = 500 mg/dL WBC (Bld) [#/Vol] 6.5 10*3/uL 4.4-11.0 [facility] Blood erythrocytes count (nu mber/volume)Ordered By: Dr. Phillips on 12-01-2021 RBC (Bld) [#/Vol] 5.43 10*6/uL 4.6-6.2 [facility] Blood hemoglobin measurement (mass/volume)Ordered By: Dr. Phillips on 12-01-2021 Hemoglobin (Bld) [Mass/Vol] 15.4 g/dL 13.0-16.5 [facility] Blood lymphocytes/100 leukoc ytesOrdered By: Dr. Phillips on 12-01-2021 Lymphocytes/100 WBC (Bld) 25.1 % 19-41 [facility] Blood monocytes/100 leukocyt esOrdered By: Dr. Phillips on 12-01-2021 Monocytes/100 WBC (Bld) 9.7 % 0-10 [facility] Blood platelet mean volumeOr dered By: Dr. Phillips on 12-01-2021 Platelet mean volume (Bld) [Entitic vol] 9.7 fL 6.2-12.0 [facility] Determination of erythrocyte mean corpuscular volume (MCV)Ordered By: Dr. Phillips on 12-01-2021 MCV (RBC) [Entitic vol] 84.5 fL 80-94 [facility] Glucose Glucometer (BldC) [M ass/Vol]Ordered By: Dr. Dunbar on 12-01-2021 Glucose [Mass/Vol] 110 mg/dL 74-106 [facility] Comment on above: MANAGEMENT OF PATIEN T CARE PER NURSING PROTOCOL Hematocrit Auto (Bld) [Volum e fraction]Ordered By: Dr. Phillips on 12-01-2021 Hematocrit (Bld) [Volume fraction] 45.9 % 40-54 [facility] Laboratory - Chemistry and C hemistry - challengeOrdered By: Dr. Phillips on 12-01-2021 ALP [Catalytic activity/Vol] 49 U/L 45-117 [facility] ALT [Catalytic activity/Vol] 12 U/L 16-61 [facility] CO2 [Moles/Vol] 27.0 mmol/L 21.0-32.0 [facility] Globulin (S) [Mass/Vol] 3.3 g/dL 2.2-4.2 [facility] Urea nitrogen/Creatinine [Mass ratio] 17.5 mg/mg 10-20 [facility] Laboratory - Hematology and Cell countsOrdered By: Dr. Phillips on 12-01-2021 Erythrocyte distribution width (RBC) [Entitic vol] 38.3 fL 35.1-43.9 [facility] Erythrocyte distribution width (RBC) [Ratio] 12.6 % 11.6-14.6 [facility] Immature granulocytes/100 WBC (Bld) 0.300 % 0.0-0.9 [facility] Comment on above: IG% - Immature Granu locytes (promyelocytes, myelocytes and metamyelocytes) > 1% indicates that a LEFT SHIFT is Present. MCH (RBC) [Entitic mass] 28.4 pg 27.0-32.0 [facility] Nucleated RBC/100 WBC (Bld) [Ratio] 0 % 0-5 [facility] MCHC Auto (RBC) [Mass/Vol]Or dered By: Dr. Phillips on 12-01-2021 MCHC (RBC) [Mass/Vol] 33.6 g/dL 32-36 [facility] No Panel InformationOrdered By: Dr. Phillips on 12-01-2021 Estimated Creatinine Clearance Calc 96.54 ml/min [facility] Estimated GFR (MDRD) Amer 110 mL/min >60 [facility] Comment on above: GFR Calc Estimated GFR (MDRD) Non-Af Amer 91 mL/min >60 [facility] Comment on above: Non- GFR Calc Thyroid Stimulating Hormone (TSH) 1.40 uIU/mL 0.358-3.74 [facility] Platelets bldOrdered By: Dr. Phillips on 12-01-2021 Platelets (Bld) [#/Vol] 167 10*3/uL 150-450 [facility] Serum or plasma albumin noy urement (mass/volume)Ordered By: Dr. Phillips on 12-01-2021 Albumin [Mass/Vol] 3.5 g/dL 3.2-5.0 [facility] Serum or plasma albumin/glob ulin mass ratioOrdered By: Dr. Phillips on 12-01-2021 Albumin/Globulin [Mass ratio] 1.1 {ratio} 0.9-2.4 [facility] Serum or plasma calcium noy urement (mass/volume)Ordered By: Dr. Phillips on 12-01-2021 Calcium [Mass/Vol] 8.5 mg/dL 8.5-10.1 [facility] Serum or plasma cholesterol in HDL measurement (mass/volume)Ordered By: Dr. Phillips on 12-01-2021 Cholesterol in HDL [Mass/Vol] 29 mg/dL >40 [facility] Comment on above: The drugs N-Acetylcy steine and Metamizole may falsely depress this assay. Reference Range HDL <40 mg/dL Low HDL Cholesterol HDL >or= 60 mg/dL High HDL Cholesterol Serum or plasma cholesterol in VLDL measurement (mass/volume)Ordered By: Dr. Phillips on 12-01-2021 Cholesterol in VLDL [Mass/Vol] 23 mg/dL 5-40 [facility] Serum or plasma creatinine m easurement (mass/volume)Ordered By: Dr. Phillips on 12-01-2021 Creatinine [Mass/Vol] 0.91 mg/dL 0.70-1.30 [facility] Comment on above: The validity of the calculated GFR & GFRAA in patients over 70 years has not been determined. Clinical correlation is essential. Serum or plasma low density lipoprotein (LDL) cholesterol measurement (mass/volume)Ordered By: Dr. Phillips on 12-01-2021 Cholesterol in LDL [Mass/Vol] 62 mg/dL 0-130 [facility] Serum or plasma urea nitroge n measurement (mass/volume)Ordered By: Dr. Phillips on 12-01-2021 Urea nitrogen [Mass/Vol] 16 mg/dL 7-18 [facility] Thin prep Papanicolaou smear with manual screeningOrdered By: Dr. Phillips on 12-01-2021 Thin prep Papanicolaou smear with manual screening 14 U/L 15-37 [facility] Thin prep Papanicolaou smear with manual screening 6 5-15 [facility] Whole blood hemoglobin A1c/t otal hemoglobin ratio (mass fraction)Ordered By: Dr. Phillips on 12-01-2021 HbA1c (Bld) [Mass fraction] 6.0 % 3.8-5.6 [facility] Comment on above: Normal < 5.7 % Predi abetic 5.7 - 6.4 % Diabetic >or= 6.5 % Please note range changes. Absolute lymphocyte counton 11-30-2021 Lymphocytes Auto (Unsp spec) [#/Vol] 1.80 10*3/uL 0.83-4.51 [facility] Work Phone: Basophil percentageon 2021 Basophils/100 WBC (Bld) 0.7 % 0-1 [facility] Work Phone: Chloride [Moles/Vol] 107 mmol/L 98-107 [facility] Work Phone: Eosinophils/100 WBC (Bld) 2.7 % 0-5 [facility] Work Phone: Glucose [Mass/Vol] 165 mg/dL 74-106 [facility] Work Phone: Comment on above: Fasting Glucose resu lt greater than or equal to 126 mg/dL suggests DIABETES MELLITUS per A.D.A. criteria. Neutrophils (Bld) [#/Vol] 5.3 10*3/uL 2.0-7.7 [facility] Work Phone: Neutrophils/100 WBC (Bld) 65.0 % 47-70 [facility] Work Phone: Potassium [Moles/Vol] 3.8 mmol/L 3.5-5.1 [facility] Work Phone: Comment on above: Slight Hemolysis, Re sult may be falsely increased. Sodium [Moles/Vol] 141 mmol/L 136-145 [facility] Work Phone: WBC (Bld) [#/Vol] 8.2 10*3/uL 4.4-11.0 [facility] Work Phone: Basophil percentageOrdered B y: Melania Sanders on 11-30-2021 Basophil percentage 0 SEEN /hpf 0-5 [facility] Bilirubin Test strip Ql (U)O rdered By: Melania Sanders on 11-30-2021 Bilirubin Ql (U) Negative Negative [facility] Blood erythrocytes count (nu mber/volume)on 11-30-2021 RBC (Bld) [#/Vol] 5.60 10*6/uL 4.6-6.2 [facility] Work Phone: Blood hemoglobin measurement (mass/volume)on 11-30-2021 Hemoglobin (Bld) [Mass/Vol] 15.8 g/dL 13.0-16.5 [facility] Work Phone: Blood lymphocytes/100 leukoc yteson 11-30-2021 Lymphocytes/100 WBC (Bld) 22.1 % 19-41 [facility] Work Phone: Blood monocytes/100 leukocyt eson 11-30-2021 Monocytes/100 WBC (Bld) 9.3 % 0-10 [facility] Work Phone: Blood platelet mean volumeon 11-30-2021 Platelet mean volume (Bld) [Entitic vol] 9.7 fL 6.2-12.0 [facility] Work Phone: Determination of erythrocyte mean corpuscular volume (MCV)on 11-30-2021 MCV (RBC) [Entitic vol] 85.4 fL 80-94 [facility] Work Phone: Glucose Glucometer (BldC) [M ass/Vol]on 11-30-2021 Glucose [Mass/Vol] 182 mg/dL 74-106 [facility] Work Phone: Comment on above: MANAGEMENT OF PATIEN T CARE PER NURSING PROTOCOL Hematocrit Auto (Bld) [Volum e fraction]on 11-30-2021 Hematocrit (Bld) [Volume fraction] 47.8 % 40-54 [facility] Work Phone: INR in Blood by Coagulation assayOrdered By: Dr. Concepcion on 11-30-2021 INR Coag (Bld) [Relative time] 1.0 {INR} [facility] Ketones Test strip Ql (U)Ord ered By: Melania Sanders on 11-30-2021 Ketones Ql (U) 5 mg/dl Negative [facility] Laboratory - Chemistry and C hemistry - challengeon 11-30-2021 CO2 [Moles/Vol] 28.0 mmol/L 21.0-32.0 [facility] Work Phone: Urea nitrogen/Creatinine [Mass ratio] 19.7 mg/mg 10 [facility] Work Phone: Laboratory - Chemistry and C hemistry - challengeOrdered By: Dr. Phillips on 11-30-2021 Magnesium [Mass/Vol] 2.3 mg/dL 1.6-2.6 [facility] Comment on above: Slight Hemolysis, Re sult may be falsely increased. Laboratory - CoagulationOrde red By: Dr. Concepcion on 11-30-2021 aPTT Coag (Bld) [Time] 27.9 s 24.1-36.2 [facility] PT Coag (PPP) [Time] 13.3 s 11.7-14.9 [facility] Laboratory - Hematology and Cell countson 11-30-2021 Erythrocyte distribution width (RBC) [Entitic vol] 38.6 fL 35.1-43.9 [facility] Work Phone: Erythrocyte distribution width (RBC) [Ratio] 12.6 % 11.6-14.6 [facility] Work Phone: Immature granulocytes/100 WBC (Bld) 0.200 % 0.0-0.9 [facility] Work Phone: Comment on above: IG% - Immature Granu locytes (promyelocytes, myelocytes and metamyelocytes) > 1% indicates that a LEFT SHIFT is Present. MCH (RBC) [Entitic mass] 28.2 pg 27.0-32.0 [facility] Work Phone: Nucleated RBC/100 WBC (Bld) [Ratio] 0 % 0-5 [facility] Work Phone: MCHC Auto (RBC) [Mass/Vol]on 11-30-2021 MCHC (RBC) [Mass/Vol] 33.1 g/dL 32-36 [facility] Work Phone: Mucus LM Ql (Urine sed)Order ed By: Melania Sanders on 11-30-2021 Mucus Ql (Urine sed) 0 SEEN /hpf [facility] Nitrite Test strip Ql (U)Ord ered By: Melania Sanders on 10-04-2022 Nitrite Ql (U) Negative Negative [facility] No Panel Informationon 11-30 Estimated Creatinine Clearance Calc 75.09 ml/min [facility] Work Phone: Estimated GFR (MDRD) Amer 83 mL/min >60 [facility] Work Phone: Comment on above: GFR Calc Estimated GFR (MDRD) Non-Af Amer 68 mL/min >60 [facility] Work Phone: Comment on above: Non- GFR Calc No Panel InformationOrdered By: Dr. Concepcion on 11-30-2021 Troponin I High Sensitivity 10 pg/mL 3.0-78.0 [facility] Comment on above: Please Note: [place] t Units and Gender Specific Reference Ranges. For more information see Policy Stat Procedure [place] High Sensitivity Troponin (TNIH) and attachments. Platelets bldon 11-30-2021 Platelets (Bld) [#/Vol] 194 10*3/uL 150-450 [facility] Work Phone: Protein Test strip Ql (U)Ord ered By: Melania Sanders on 11-30-2021 Protein Ql (U) Negative Negative [facility] Serum or plasma calcium noy urement (mass/volume)on 11-30-2021 Calcium [Mass/Vol] 9.3 mg/dL 8.5-10.1 [facility] Work Phone: Serum or plasma creatinine m easurement (mass/volume)on 11-30-2021 Creatinine [Mass/Vol] 1.17 mg/dL 0.70-1.30 [facility] Work Phone: Comment on above: The validity of the calculated GFR & GFRAA in patients over 70 years has not been determined. Clinical correlation is essential. Serum or plasma urea nitroge n measurement (mass/volume)on 11-30-2021 Urea nitrogen [Mass/Vol] 23 mg/dL 7-18 [facility] Work Phone: Squamous epithelial cells de tection in urine sediment by light microscopyOrdered By: Melania Sanders on 11-30-2021 Epithelial cells.squamous LM Ql (Urine sed) 0 SEEN /hpf 0-5 [facility] Thin prep Papanicolaou smear with manual screeningon 11-30-2021 Thin prep Papanicolaou smear with manual screening 6 5-15 [facility] Work Phone: Urine blood detectionOrdered By: Melania Sanders on 11-30-2021 RBC Ql (U) Negative Negative [facility] RBC Ql (U) 0 SEEN /hpf 0-5 [facility] Urine clarityOrdered By: Dustin Sanders on 11-30-2021 Clarity (U) Clear Clear [facility] Urine color determinationOrd ered By: Melania Sanders on 11-30-2021 Color (U) Yellow Yellow [facility] Urine glucose detectionOrder ed By: Melania Sanders on 11-30-2021 Glucose Ql (U) 1000 mg/dl Normal [facility] Urine leukocyte esterase det ection by dipstickOrdered By: Melania Sanders on 11-30-2021 Leukocyte esterase Test strip Ql (U) Negative Negative [facility] Urine pHOrdered By: Melania Sanders on 11-30-2021 pH (U) 6.5 [pH] 5.0 - 8.0 [facility] Urine sediment bacteria coun t by microscopy (number/high power field)Ordered By: Melania Sanders on 11-30-2021 Bacteria LM.HPF (Urine sed) [#/Area] 0 /[HPF] None Seen [facility] Urine specific gravity measu rementOrdered By: Melania Sanders on 11-30-2021 Specific gravity (U) [Rel density] 1.010 1.002-1.03 0 [facility] Urobilinogen Auto test strip Ql (U)Ordered By: Melania Sanders on 11-30-2021 Urobilinogen Ql (U) Normal mg/dl Normal [facility] Absolute lymphocyte counton 09-20-2021 Lymphocytes Auto (Unsp spec) [#/Vol] 1.39 10*3/uL 0.83-4.51 [facility] Work Phone: Basophil percentageon 2021 Basophils/100 WBC (Bld) 0.5 % 0-1 [facility] Work Phone: Bilirubin [Mass/Vol] 0.60 mg/dL 0.20-1.00 [facility] Work Phone: Comment on above: For patients on eltr ombopag therapy, use of Dimension [place] TBIL is not recommended. Chloride [Moles/Vol] 107 mmol/L 98-107 [facility] Work Phone: Cholesterol [Mass/Vol] 174 mg/dL <200 [facility] Work Phone: Comment on above: <200 mg/dL Desirable 200-240 mg/dL Borderline >240 mg/dL High Risk Eosinophils/100 WBC (Bld) 2.3 % 0-5 [facility] Work Phone: Glucose [Mass/Vol] 107 mg/dL 74-106 [facility] Work Phone: Comment on above: Fasting Glucose resu lt from 100 to 125 mg/dL suggests IMPAIRED HOMEOSTASIS per A.D.A. criteria. Neutrophils (Bld) [#/Vol] 4.3 10*3/uL 2.0-7.7 [facility] Work Phone: Neutrophils/100 WBC (Bld) 66.5 % 47-70 [facility] Work Phone: [phone] Potassium [Moles/Vol] 4.1 mmol/L 3.5-5.1 [facility] Work Phone: Protein [Mass/Vol] 7.6 g/dL 6.4-8.2 [facility] Work Phone: Sodium [Moles/Vol] 139 mmol/L 136-145 [facility] Work Phone: Triglyceride [Mass/Vol] 156 mg/dL <199 [facility] Work Phone: Comment on above: The drugs N-Acetylcy steine and Metamizole may falsely depress this assay.Serum Triglycerides Reference Interval Normal <150 mg/dL Borderline high 150 - 199 mg/dL High 200 - 499 mg/dL Very High > or = 500 mg/dL WBC (Bld) [#/Vol] 6.5 10*3/uL 4.4-11.0 [facility] Work Phone: Blood erythrocytes count (nu mber/volume)on 09-20-2021 RBC (Bld) [#/Vol] 5.58 10*6/uL 4.6-6.2 [facility] Work Phone: Blood hemoglobin measurement (mass/volume)on 09-20-2021 Hemoglobin (Bld) [Mass/Vol] 16.3 g/dL 13.0-16.5 [facility] Work Phone: Blood lymphocytes/100 leukoc yteson 09-20-2021 Lymphocytes/100 WBC (Bld) 21.4 % 19-41 [facility] Work Phone: Blood monocytes/100 leukocyt eson 09-20-2021 Monocytes/100 WBC (Bld) 9.1 % 0-10 [facility] Work Phone: Blood platelet mean volumeon 09-20-2021 Platelet mean volume (Bld) [Entitic vol] 10.0 fL 6.2-12.0 [facility] Work Phone: Determination of erythrocyte mean corpuscular volume (MCV)on 09-20-2021 MCV (RBC) [Entitic vol] 88.4 fL 80-94 [facility] Work Phone: Hematocrit Auto (Bld) [Volum e fraction]on 09-20-2021 Hematocrit (Bld) [Volume fraction] 49.3 % 40-54 [facility] Work Phone: Laboratory - Chemistry and C hemistry - challengeon 09-20-2021 ALP [Catalytic activity/Vol] 51 U/L 45-117 [facility] Work Phone: ALT [Catalytic activity/Vol] 30 U/L 16-61 [facility] Work Phone: [phone] CO2 [Moles/Vol] 26.0 mmol/L 21.0-32.0 [facility] Work Phone: Globulin (S) [Mass/Vol] 3.4 g/dL 2.2-4.2 [facility] Work Phone: Urea nitrogen/Creatinine [Mass ratio] 15.3 mg/mg 10-20 [facility] Work Phone: Laboratory - Hematology and Cell countson 09-20-2021 Erythrocyte distribution width (RBC) [Entitic vol] 39.9 fL 35.1-43.9 [facility] Work Phone: Erythrocyte distribution width (RBC) [Ratio] 12.2 % 11.6-14.6 [facility] Work Phone: Immature granulocytes/100 WBC (Bld) 0.200 % 0.0-0.9 [facility] Work Phone: Comment on above: IG% - Immature Granu locytes (promyelocytes, myelocytes and metamyelocytes) > 1% indicates that a LEFT SHIFT is Present. MCH (RBC) [Entitic mass] 29.2 pg 27.0-32.0 [facility] Work Phone: Nucleated RBC/100 WBC (Bld) [Ratio] 0 % 0-5 [facility] Work Phone: MCHC Auto (RBC) [Mass/Vol]on 09-20-2021 MCHC (RBC) [Mass/Vol] 33.1 g/dL 32-36 [facility] Work Phone: No Panel Informationon 09-20 Estimated GFR (MDRD) Amer 73 mL/min >60 [facility] Work Phone: Comment on above: GFR Calc Estimated GFR (MDRD) Non-Af Amer 60 mL/min >60 [facility] Work Phone: Comment on above: Non- GFR Calc Platelets bldon 09-20-2021 Platelets (Bld) [#/Vol] 166 10*3/uL 150-450 [facility] Work Phone: Serum or plasma albumin noy urement (mass/volume)on 09-20-2021 Albumin [Mass/Vol] 4.2 g/dL 3.2-5.0 [facility] Work Phone: Serum or plasma albumin/glob ulin mass ratioon 09-20-2021 Albumin/Globulin [Mass ratio] 1.2 {ratio} 0.9-2.4 [facility] Work Phone: Serum or plasma calcium noy urement (mass/volume)on 09-20-2021 Calcium [Mass/Vol] 9.0 mg/dL 8.5-10.1 [facility] Work Phone: Serum or plasma cholesterol in HDL measurement (mass/volume)on 09-20-2021 Cholesterol in HDL [Mass/Vol] 30 mg/dL >40 [facility] Work Phone: Comment on above: The drugs N-Acetylcy steine and Metamizole may falsely depress this assay. Reference Range HDL <40 mg/dL Low HDL Cholesterol HDL >or= 60 mg/dL High HDL Cholesterol Serum or plasma cholesterol in VLDL measurement (mass/volume)on 09-20-2021 Cholesterol in VLDL [Mass/Vol] 31 mg/dL 5-40 [facility] Work Phone: Serum or plasma creatinine m easurement (mass/volume)on 09-20-2021 Creatinine [Mass/Vol] 1.31 mg/dL 0.70-1.30 [facility] Work Phone: Comment on above: The validity of the calculated GFR & GFRAA in patients over 70 years has not been determined. Clinical correlation is essential. Serum or plasma low density lipoprotein (LDL) cholesterol measurement (mass/volume)on 09-20-2021 Cholesterol in LDL [Mass/Vol] 113 mg/dL 0-130 [facility] Work Phone: Serum or plasma urea nitroge n measurement (mass/volume)on 09-20-2021 Urea nitrogen [Mass/Vol] 20 mg/dL 7-18 [facility] Work Phone: Thin prep Papanicolaou smear with manual screeningon 09-20-2021 Thin prep Papanicolaou smear with manual screening 20 U/L 15-37 [facility] Work Phone: Thin prep Papanicolaou smear with manual screening 6 5-15 [facility] Work Phone: Whole blood hemoglobin A1c/t otal hemoglobin ratio (mass fraction)on 09-20-2021 HbA1c (Bld) [Mass fraction] 5.6 % 3.8-5.6 [facility] Work Phone: Comment on above: Normal < 5.7 % Predi abetic 5.7 - 6.4 % Diabetic >or= 6.5 % Please note range changes. Absolute lymphocyte counton 08-04-2021 Lymphocytes Auto (Unsp spec) [#/Vol] 1.49 10*3/uL 0.83-4.51 [facility] Work Phone: Basophil percentageon 2021 Basophils/100 WBC (Bld) 0.5 % 0-1 [facility] Work Phone: Bilirubin [Mass/Vol] 0.60 mg/dL 0.20-1.00 [facility] Work Phone: Comment on above: For patients on eltr ombopag therapy, use of Dimension [place] TBIL is not recommended. Chloride [Moles/Vol] 107 mmol/L 98-107 [facility] Work Phone: Eosinophils/100 WBC (Bld) 2.3 % 0-5 [facility] Work Phone: Glucose [Mass/Vol] 103 mg/dL 74-106 [facility] Work Phone: Comment on above: Fasting Glucose resu lt from 100 to 125 mg/dL suggests IMPAIRED HOMEOSTASIS per A.D.A. criteria. Neutrophils (Bld) [#/Vol] 6.6 10*3/uL 2.0-7.7 [facility] Work Phone: Neutrophils/100 WBC (Bld) 71.7 % 47-70 [facility] Work Phone: Potassium [Moles/Vol] 3.5 mmol/L 3.5-5.1 [facility] Work Phone: Protein [Mass/Vol] 7.3 g/dL 6.4-8.2 [facility] Work Phone: Sodium [Moles/Vol] 139 mmol/L 136-145 [facility] Work Phone: WBC (Bld) [#/Vol] 9.2 10*3/uL 4.4-11.0 [facility] Work Phone: Blood erythrocytes count (nu mber/volume)on 08-04-2021 RBC (Bld) [#/Vol] 5.43 10*6/uL 4.6-6.2 [facility] Work Phone: Blood hemoglobin measurement (mass/volume)on 08-04-2021 Hemoglobin (Bld) [Mass/Vol] 16.0 g/dL 13.0-16.5 [facility] Work Phone: Blood lymphocytes/100 leukoc yteson 08-04-2021 Lymphocytes/100 WBC (Bld) 16.2 % 19-41 [facility] Work Phone: Blood monocytes/100 leukocyt eson 08-04-2021 Monocytes/100 WBC (Bld) 9.1 % 0-10 [facility] Work Phone: Blood platelet mean volumeon 08-04-2021 Platelet mean volume (Bld) [Entitic vol] 9.7 fL 6.2-12.0 [facility] Work Phone: Determination of erythrocyte mean corpuscular volume (MCV)on 08-04-2021 MCV (RBC) [Entitic vol] 85.6 fL 80-94 [facility] Work Phone: Direct bilirubinon 2 Bilirubin.direct [Mass/Vol] 0.18 mg/dL 0.00-0.30 [facility] Work Phone: Hematocrit Auto (Bld) [Volum e fraction]on 08-04-2021 Hematocrit (Bld) [Volume fraction] 46.5 % 40-54 [facility] Work Phone: Laboratory - Chemistry and C hemistry - challengeon 08-04-2021 ALP [Catalytic activity/Vol] 53 U/L 45-117 [facility] Work Phone: ALT [Catalytic activity/Vol] 52 U/L 16-61 [facility] Work Phone: CO2 [Moles/Vol] 26.0 mmol/L 21.0-32.0 [facility] Work Phone: Globulin (S) [Mass/Vol] 3.3 g/dL 2.2-4.2 [facility] Work Phone: Lipase [Catalytic activity/Vol] 106 U/L 73-393 [facility] Work Phone: Urea nitrogen/Creatinine [Mass ratio] 12.5 mg/mg 10-20 [facility] Work Phone: Laboratory - Hematology and Cell countson 08-04-2021 Erythrocyte distribution width (RBC) [Entitic vol] 39.0 fL 35.1-43.9 [facility] Work Phone: Erythrocyte distribution width (RBC) [Ratio] 12.7 % 11.6-14.6 [facility] Work Phone: Immature granulocytes/100 WBC (Bld) 0.200 % 0.0-0.9 [facility] Work Phone: Comment on above: IG% - Immature Granu locytes (promyelocytes, myelocytes and metamyelocytes) > 1% indicates that a LEFT SHIFT is Present. MCH (RBC) [Entitic mass] 29.5 pg 27.0-32.0 [facility] Work Phone: Nucleated RBC/100 WBC (Bld) [Ratio] 0 % 0-5 [facility] Work Phone: MCHC Auto (RBC) [Mass/Vol]on 08-04-2021 MCHC (RBC) [Mass/Vol] 34.4 g/dL 32-36 [facility]: No Panel Informationon 06-08 -2022 Estimated Creatinine Clearance Calc 73.21 ml/min [facility] Work Phone: Estimated GFR (MDRD) Amer 81 mL/min >60 [facility] Work Phone: Comment on above: GFR Calc Estimated GFR (MDRD) Non-Af Amer 67 mL/min >60 [facility] Work Phone: Comment on above: Non- GFR Calc Troponin I High Sensitivity 12 pg/mL 3.0-78.0 [facility] Work Phone: Comment on above: Please Note: New Annel t Units and Gender Specific Reference Ranges. For more information see Policy Stat Procedure [place] High Sensitivity Troponin (TNIH) and attachments. Platelets bldon 08-04-2021 Platelets (Bld) [#/Vol] 174 10*3/uL 150-450 [facility] Work Phone: Serum or plasma albumin noy urement (mass/volume)on 08-04-2021 Albumin [Mass/Vol] 4.0 g/dL 3.2-5.0 [facility] Work Phone: Serum or plasma calcium noy urement (mass/volume)on 08-04-2021 Calcium [Mass/Vol] 9.1 mg/dL 8.5-10.1 [facility] Work Phone: Serum or plasma creatinine m easurement (mass/volume)on 08-04-2021 Creatinine [Mass/Vol] 1.20 mg/dL 0.70-1.30 [facility] Work Phone: Comment on above: The validity of the calculated GFR & GFRAA in patients over 70 years has not been determined. Clinical correlation is essential. Serum or plasma urea nitroge n measurement (mass/volume)on 08-04-2021 Urea nitrogen [Mass/Vol] 15 mg/dL 7-18 [facility] Work Phone: Thin prep Papanicolaou smear with manual screeningon 08-04-2021 Thin prep Papanicolaou smear with manual screening 34 U/L 15-37 [facility] Work Phone: Thin prep Papanicolaou smear with manual screening 6 5-15 [facility] Work Phone: Absolute lymphocyte counton 07-09-2021 Lymphocytes Auto (Unsp spec) [#/Vol] 1.65 10*3/uL 0.83-4.51 [facility] Work Phone: Basophil percentageon 2021 Basophils/100 WBC (Bld) 0.4 % 0-1 [facility] Work Phone: Bilirubin [Mass/Vol] 0.70 mg/dL 0.20-1.00 [facility] Work Phone: Comment on above: Slight Lipemia, Resu lt may be falsely increased. For patients on eltrombopag therapy, use of Dimension [place] TBIL is not recommended. Chloride [Moles/Vol] 105 mmol/L 98-107 [facility] Work Phone: Cholesterol [Mass/Vol] 131 mg/dL <200 [facility] Work Phone: Comment on above: Slight Lipemia, Resu lt may be falsely increased. <200 mg/dL Desirable 200-240 mg/dL Borderline >240 mg/dL High Risk Eosinophils/100 WBC (Bld) 3.4 % 0-5 [facility] Work Phone: Glucose [Mass/Vol] 188 mg/dL 74-106 [facility] Work Phone: Comment on above: Slight Lipemia, Resu lt may be falsely increased.Fasting Glucose result greater than or equal to 126 mg/dL suggests DIABETES MELLITUS per A.D.A. criteria. Neutrophils (Bld) [#/Vol] 4.7 10*3/uL 2.0-7.7 [facility] Work Phone: Neutrophils/100 WBC (Bld) 62.8 % 47-70 [facility] Work Phone: [phone] Potassium [Moles/Vol] 4.2 mmol/L 3.5-5.1 [facility] Work Phone: Comment on above: Slight Hemolysis, Re sult may be falsely increased.-Slight Lipemia, Result may be falsely increased. Protein [Mass/Vol] 6.8 g/dL 6.4-8.2 [facility] Work Phone: Sodium [Moles/Vol] 136 mmol/L 136-145 [facility] Work Phone: Triglyceride [Mass/Vol] 983 mg/dL <199 [facility] Work Phone: Comment on above: The drugs [...] mg/dL WBC (Bld) [#/Vol] 7.5 10*3/uL 4.4-11.0 [facility] Work Phone: Blood erythrocytes count (nu mber/volume)on 07-09-2021 RBC (Bld) [#/Vol] 5.51 10*6/uL 4.6-6.2 [facility] Work Phone: Blood hemoglobin measurement (mass/volume)on 07-09-2021 Hemoglobin (Bld) [Mass/Vol] 16.6 g/dL 13.0-16.5 [facility] Work Phone: Blood lymphocytes/100 leukoc yteson 07-09-2021 Lymphocytes/100 WBC (Bld) 22.1 % 19-41 [facility] Work Phone: Blood monocytes/100 leukocyt eson 07-09-2021 Monocytes/100 WBC (Bld) 10.9 % 0-10 [facility] Work Phone: Blood platelet mean volumeon 07-09-2021 Platelet mean volume (Bld) [Entitic vol] 10.0 fL 6.2-12.0 [facility] Work Phone: Determination of erythrocyte mean corpuscular volume (MCV)on 07-09-2021 MCV (RBC) [Entitic vol] 87.7 fL 80-94 [facility] Work Phone: Hematocrit Auto (Bld) [Volum e fraction]on 07-09-2021 Hematocrit (Bld) [Volume fraction] 48.3 % 40-54 [facility] Work Phone: Laboratory - Chemistry and C hemistry - challengeon 07-09-2021 ALP [Catalytic activity/Vol] 80 U/L 45-117 [facility] Work Phone: ALT [Catalytic activity/Vol] 41 U/L 16-61 [facility] Work Phone: CO2 [Moles/Vol] 23.0 mmol/L 21.0-32.0 [facility] Work Phone: Comment on above: Slight Lipemia, Resu lt may be falsely increased. Globulin (S) [Mass/Vol] 3.0 g/dL 2.2-4.2 [facility] Work Phone: Urea nitrogen/Creatinine [Mass ratio] 19.8 mg/mg 10-20 [facility] Work Phone: Laboratory - Hematology and Cell countson 07-09-2021 Erythrocyte distribution width (RBC) [Entitic vol] 39.9 fL 35.1-43.9 [facility] Work Phone: Erythrocyte distribution width (RBC) [Ratio] 12.5 % 11.6-14.6 [facility] Work Phone: Immature granulocytes/100 WBC (Bld) 0.400 % 0.0-0.9 [facility] Work Phone: Comment on above: IG% - Immature Granu locytes (promyelocytes, myelocytes and metamyelocytes) > 1% indicates that a LEFT SHIFT is Present. MCH (RBC) [Entitic mass] 30.1 pg 27.0-32.0 [facility] Work Phone: Nucleated RBC/100 WBC (Bld) [Ratio] 0 % 0-5 [facility] Work Phone: MCHC Auto (RBC) [Mass/Vol]on 07-09-2021 MCHC (RBC) [Mass/Vol] 34.4 g/dL 32-36 [facility] Work Phone: No Panel Informationon 07-09 Estimated GFR (MDRD) Amer 93 mL/min >60 [facility] Work Phone: Comment on above: GFR Calc Estimated GFR (MDRD) Non-Af Amer 77 mL/min >60 [facility] Work Phone: Comment on above: Non- GFR Calc Thyroid Stimulating Hormone (TSH) 1.29 uIU/mL 0.358-3.74 [facility] Work Phone: Platelets bldon 07-09-2021 Platelets (Bld) [#/Vol] 174 10*3/uL 150-450 [facility] Work Phone: Serum or plasma albumin noy urement (mass/volume)on 07-09-2021 Albumin [Mass/Vol] 3.8 g/dL 3.2-5.0 [facility] Work Phone: Serum or plasma albumin/glob ulin mass ratioon 07-09-2021 Albumin/Globulin [Mass ratio] 1.3 {ratio} 0.9-2.4 [facility] Work Phone: Serum or plasma calcium noy urement (mass/volume)on 07-09-2021 Calcium [Mass/Vol] 8.1 mg/dL 8.5-10.1 [facility] Work Phone: Comment on above: Slight Lipemia, Resu lt may be falsely increased. Serum or plasma cholesterol in HDL measurement (mass/volume)on 07-09-2021 Cholesterol in HDL [Mass/Vol] 19 mg/dL >40 [facility] Work Phone: Comment on above: The drugs N-Acetylcy steine and Metamizole may falsely depress this assay. Reference Range HDL <40 mg/dL Low HDL Cholesterol HDL >or= 60 mg/dL High HDL Cholesterol Serum or plasma cholesterol in VLDL measurement (mass/volume)on 07-09-2021 Cholesterol in VLDL [Mass/Vol] [facility] Work Phone: Comment on above: Test not performed Serum or plasma creatinine m easurement (mass/volume)on 07-09-2021 Creatinine [Mass/Vol] 1.06 mg/dL 0.70-1.30 [facility] Work Phone: Comment on above: Slight Lipemia, Resu lt may be falsely increased.The validity of the calculated GFR & GFRAA in patients over 70 years has not been determined. Clinical correlation is essential. Serum or plasma low density lipoprotein (LDL) cholesterol measurement (mass/volume)on 07-09-2021 Cholesterol in LDL [Mass/Vol] [facility] Work Phone: Comment on above: Test not performed Serum or plasma urea nitroge n measurement (mass/volume)on 07-09-2021 Urea nitrogen [Mass/Vol] 21 mg/dL 7-18 [facility] Work Phone: Thin prep Papanicolaou smear with manual screeningon 07-09-2021 Thin prep Papanicolaou smear with manual screening 27 U/L 15-37 [facility] Work Phone: Thin prep Papanicolaou smear with manual screening 8 5-15 [facility] Work Phone: Whole blood hemoglobin A1c/t otal hemoglobin ratio (mass fraction)on 07-09-2021 HbA1c (Bld) [Mass fraction] 6.8 % 3.8-5.6 [facility] Work Phone: Comment on above: Normal < 5.7 % Predi abetic 5.7 - 6.4 % Diabetic >or= 6.5 % Please note range changes. Basophil percentageon 2021 Chloride [Moles/Vol] 106 mmol/L 98-107 [facility] Work Phone: Glucose [Mass/Vol] 176 mg/dL 74-106 [facility] Work Phone: Comment on above: Fasting Glucose resu lt greater than or equal to 126 mg/dL suggests DIABETES MELLITUS per A.D.A. criteria. Potassium [Moles/Vol] 3.9 mmol/L 3.5-5.1 [facility] Work Phone: Sodium [Moles/Vol] 136 mmol/L 136-145 [facility] Work Phone: Laboratory - Chemistry and C hemistry - challengeon 03-19-2021 CO2 [Moles/Vol] 24.0 mmol/L 21.0-32.0 [facility] Work Phone: Urea nitrogen/Creatinine [Mass ratio] 12.1 mg/mg 10-20 [facility] Work Phone: No Panel Informationon 03-19 Estimated GFR (MDRD) Amer 84 mL/min >60 [facility] Work Phone: Comment on above: GFR Calc Estimated GFR (MDRD) Non-Af Amer 69 mL/min >60 [facility] Work Phone: Comment on above: Non- GFR Calc Serum or plasma calcium noy urement (mass/volume)on 03-19-2021 Calcium [Mass/Vol] 9.2 mg/dL 8.5-10.1 [facility] Work Phone: Serum or plasma creatinine m easurement (mass/volume)on 03-19-2021 Creatinine [Mass/Vol] 1.16 mg/dL 0.70-1.30 [facility] Work Phone: Comment on above: The validity of the calculated GFR & GFRAA in patients over 70 years has not been determined. Clinical correlation is essential. Serum or plasma urea nitroge n measurement (mass/volume)on 03-19-2021 Urea nitrogen [Mass/Vol] 14 mg/dL 7-18 [facility] Work Phone: Thin prep Papanicolaou smear with manual screeningon 03-19-2021 Thin prep Papanicolaou smear with manual screening 6 5-15 [facility] Work Phone: CORONAVIRUS 2019 BY PCRon SARS-CoV-2 (COVID-19) RNA GITA+probe Ql (Unsp spec) Not detected Normal Not Detected [facility] Comment on above: Result Comment: . This [...] patient management decisions. Fact sheet for providers: https://www.fda.gov/media/363743/download Fact sheet for patients: https://www.fda.gov/media/864266/download This test has received FDA Emergency Use Authorization (EUA) and has been verified by [facility] ([facility]). This test is only authorized for the duration of time that circumstances exist to justify the authorization of the emergency use of in vitro diagnostic tests for the detection of SARS-CoV-2 virus and/or diagnosis of COVID-19 infection under section 564(b)(1) of the Act, 21 U.S.C. 360bbb-3(b)(1), unless the authorization is terminated or revoked sooner. [facility] is certified under CLIA-88 as qualified to perform high complexity testing. Testing is performed in the [facility] laboratories located at [address] [place] [address]. Performed By: #### C OV19 #### [address] [place] [address] Covid 19 Resultson SARS-CoV-2 (COVID-19) RNA GITA+probe [...] You may also be contacted by the [facility] to see if any of your close [...] or Naproxen (Aleve) can also be used. Lllz-fgq-fmmjhah cough and cold medicines can be used according to the instructions on the package. Some uowj-zlw-msyfkmr medicines also contain acetaminophen. Make sure you [...] water are not available, use alcohol-based hand data librarian. Avoid touching your eyes, nose, and mouth [...] 24 stacey (more content not included)... Normal [facility] CORONAVIRUS 2019 BY PCRon Lab Specimen Source Nasal, Nasopharyngeal Normal [facility] Comment on above: Performed By: #### C OV19 #### [facility] [id number] [place] [address] DATE OF SYMPTOM ONSET [YYYYMMDD]? 20200921 Normal [facility] Comment on above: Performed By: #### C OV19 #### [facility] [address] [place] [address] Coronavirus 2019 RNA by PCR, Symptomaticon 09-24-2020 Date and time of symptom onset 20200921 1 [facility] Work Phone: Coronavirus 2019 RNA by PCR, Symptomatic Not detected Normal See Below [facility] Work Phone: [...] make patient management decisions.Fact sheet for providers: https://www.fda.gov/media/202245/downloadFact sheet for patients: https://www.fda.gov/media/494234/downloadThis test has received FDA Emergency Use Authorization (EUA) and has been verified by [facility] ([facility]). This test is only authorized for the duration of time that circumstances exist to justify the authorization of the emergency use of in vitro diagnostic tests for the detection of SARS-CoV-2 virus and/or diagnosis of COVID-19 infection under section 564(b)(1) of the Act, 21 U.S.C. 360bbb-3(b)(1), unless the authorization is terminated or revoked sooner. [facility] is certified under CLIA-88 as qualified to perform high complexity testing. Testing is performed in the [facility] laboratories located at [address] [place] [id number]. 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 : [...] level; BERNICE = N; Sent [facility]: [facility]; Last Updated By: [employer]; 09/23/2020 3:23:54 PM Pharyngitis Start: Amoxicillin 500 MG Oral Capsule; Take 1 capsule twice daily Rx By: Thuy Hannah; Dispense: 10 Days ; #:20 Capsule; Refill: 0; For: Pharyngitis; BERNICE = N; Sent To: [facility] [address]; Last Updated By: [employer]; 09/23/2020 3:23:55 PM Start: predniSONE 10 MG Oral Tablet; TAKE 3 TABLET Daily Rx By: Thuy Hannah; Dispense: 5 Days ; #:15 Tablet; Refill: 0; For: Pharyngitis; BERNICE = N; Sent To: AMMON RAMOS [facility]; Last Updated By: System, [facility]; 09/23/2020 3:23:55 PM Patient Discussion/Summary F/U BEFORE COVID TESTING Provider Impressions SCHEDULED FOR [facility] COVID-19 TESTING. INSTRUCTED TO SELF [...] PM , for a telehealth visit. VIRTUAL: [phone]. Congestion, PRADO, nausea. History of Present IllnessTELEPHONE [...] no zoie (more content not included)... Normal [facility] Tobacco Screening.on 021 Fall risk assessment a) No falls within the last year [facility] Work Phone: Tobacco use status [facility] b) No [facility] Work Phone: Office Visit (Internal Medic ine)on 09-10-2020 Follow-up visit Diagnoses/Problems Assessed BRITTANY on CPAP (327.23,V46.8) (G47.33,Z99.89) Primary Parkinson's disease (332.0) (G20) Primary Parkinson's disease Diverticulosis (562.10) (K57.90) Patient Discussion/Summary F/U 1.5 MONTH CPAP COMPLIANCE SEND CPAP TO [facility] Provider Impressions PLEASE MONITOR CLOSELY FOR ANY [...] PM , for a telehealth visit. VIRTUAL: [phone]. Cpap not working History of Present IllnessVIRTUAL [...] a) No falls within the last year [facility] Work Phone: Tobacco use status [facility] b) No [facility] Work Phone: Medicare Annual Wellness [...] Parkinson's disease (more content not included)... Normal [facility] Office Visit (Internal Medic ine)on 05-18-2020 Follow-up [...] illicit drugs (more content not included)... Normal [facility] CORONAVIRUS 2019 BY PCRon SARS-CoV-2 (COVID-19) RNA GITA+probe Ql (Unsp spec) Not detected Normal Not Detected [facility] Comment on above: Result Comment: This assay [...] patient management decisions. Fact sheet for providers: https://www.fda.gov/media/196125/download Fact sheet for patients: https://www.fda.gov/media/141415/download This test has received FDA Emergency Use Authorization (EUA) and has been verified by [facility] ([facility]). This test is only authorized for the duration of time that circumstances exist to justify the authorization of the emergency use of in vitro diagnostic tests for the detection of SARS-CoV-2 virus and/or diagnosis of COVID-19 infection under section 564(b)(1) of the Act, 21 U.S.C. 360bbb-3(b)(1), unless the authorization is terminated or revoked sooner. [facility] is certified under CLIA-88 as qualified to perform high complexity testing. Testing is performed in the [facility] laboratories located at [address] [place] [address]. Performed By: #### C OV19 #### [facility] [id number] [place] [address]. [place] [address] CORONAVIRUS 2019 BY PCRon Lab Specimen Source Nasal, Nasopharyngeal Normal [facility] Comment on above: Performed By: #### C OV19 #### [facility] [address] [place] [address] VL DUP LOWER EXTREMITY VENOU S RIGHTon 08-14-2018 VL DUP LOWER EXTREMITY VENOUS RIGHT Radiology exam is complete. No Radiologist dictation. Please follow up with ordering provider. Final result Normal [facility] Comp Metabolic Profon 2018 (cont.) Normal [facility] Comment on above: Result Comment: Aver age GFR for 50-59 years old: 93 mL/min/1.73sq m Chronic Kidney Disease: <60 mL/min/1.73sq m Kidney failure: <15 mL/min/1.73sq m eGFR calculated using average adult body mass. Additional eGFR calculator available at: http://[email or web address]/multiple_crcl_2011.htm Performed By: #### F T3, FT4, CDP, DIME, TROPI, CP, PTT, PT, TSH #### [facility] [address] [place] [address] Albumin mass conc 4.7 g/dL Normal 3.5-5.2 [facility] Comment on above: Performed By: #### F T3, FT4, CDP, DIME, TROPI, CP, PTT, PT, TSH #### [facility] [address] [place] [address] Alkaline Phos 70 U/L Normal 40-129 [facility] Comment on above: Performed By: #### F T3, FT4, CDP, DIME, TROPI, CP, PTT, PT, TSH #### [facility] [address] [place] [address] ALT enzyme act/vol 28 U/L Normal 5-41 [facility] Comment on above: Performed By: #### F T3, FT4, CDP, DIME, TROPI, CP, PTT, PT, TSH #### [facility] [address] [place] [address] Anion gap molar conc 11 mmol/L Normal 9-17 [facility] Comment on above: Performed By: #### F T3, FT4, CDP, DIME, TROPI, CP, PTT, PT, TSH #### [facility] [address] [facility] [place] [address] AST enzyme act/vol 18 U/L Normal <40 [facility] Comment on above: Performed By: #### F T3, FT4, CDP, DIME, TROPI, CP, PTT, PT, TSH #### [facility] [address] [facility] [place] [address] Bilirubin Ql (U) 0.48 mg/dL Normal 0.30-1.20 [facility] Comment on above: Performed By: #### F T3, FT4, CDP, DIME, TROPI, CP, PTT, PT, TSH #### [facility] [address] [facility] [place] [address] BUN/CRE Ratio 11 Normal 9-20 [facility] Comment on above: Performed By: #### F T3, FT4, CDP, DIME, TROPI, CP, PTT, PT, TSH #### [facility] [address] [facility] [place] [address] Calcium mass conc 9.1 mg/dL Normal 8.6-10.4 [facility] Comment on above: Performed By: #### F T3, FT4, CDP, DIME, TROPI, CP, PTT, PT, TSH #### [facility] [address] [facility] [place] [address] Chloride molar conc 104 mmol/L Normal 98-107 [facility] Comment on above: Performed By: #### F T3, FT4, CDP, DIME, TROPI, CP, PTT, PT, TSH #### [facility] [address] [facility] [place] [address] CO2 molar conc 26 mmol/L Normal 20-31 [facility] Comment on above: Performed By: #### F T3, FT4, CDP, DIME, TROPI, CP, PTT, PT, TSH #### [address] [place] [address] Creatinine mass conc 1.14 mg/dL Normal 0.70-1.20 [facility] Comment on above: Performed By: #### F T3, FT4, CDP, DIME, TROPI, CP, PTT, PT, TSH #### [facility] [address] [facility] [place] [address] GFR, Amer >60 Normal >60 [facility] Comment on above: Performed By: #### F T3, FT4, CDP, DIME, TROPI, CP, PTT, PT, TSH #### [facility] [address] [facility] [place] [address] GFR,non Amer >60 Normal >60 [facility] Comment on above: Performed By: #### F T3, FT4, CDP, DIME, TROPI, CP, PTT, PT, TSH #### [facility] [address] [facility] [place] [address] Glucose mass conc 133 mg/dL High 70-99 [facility] Comment on above: Performed By: #### F T3, FT4, CDP, DIME, TROPI, CP, PTT, PT, TSH #### [facility] [address] [facility] [place] [address] Potassium molar conc 4.9 mmol/L Normal 3.7-5.3 [facility] Comment on above: Performed By: #### F T3, FT4, CDP, DIME, TROPI, CP, PTT, PT, TSH #### [facility] [address] [facility] [place] [address] Protein mass conc 7.4 g/dL Normal 6.4-8.3 [facility] Comment on above: Performed By: #### F T3, FT4, CDP, DIME, TROPI, CP, PTT, PT, TSH #### [facility] [address] [facility] [place] [address] Sodium molar conc 141 mmol/L Normal 135-144 [facility] Comment on above: Performed By: #### F T3, FT4, CDP, DIME, TROPI, CP, PTT, PT, TSH #### [facility] [address] [facility] [place] [phone] Urea nitrogen mass conc 13 mg/dL Normal 6-20 M [facility] Comment on above: Performed By: #### F T3, FT4, CDP, DIME, TROPI, CP, PTT, PT, TSH #### [facility] [address] [facility] [place] [phone] Albumin/Globulin mass ratio NOT REPORTED Normal 1.0-2.5 [facility] Comment on above: Performed By: #### F T3, FT4, CDP, DIME, TROPI, CP, PTT, PT, TSH #### [facility] [address] [facility] [place] [address] Staging: NOT REPORTED Normal [facility] Comment on above: Performed By: #### F T3, FT4, CDP, DIME, TROPI, CP, PTT, PT, TSH #### [facility] [address] [facility] [place] [phone] Lipid Profileon 06-28-2018 Cholesterol in HDL mass conc 28 mg/dL Low >40 [facility] Comment on above: Result Comment: HDL Guidelines: <40 Undesirable 40-59 Borderline >59 Desirable Performed By: #### F T3, FT4, CDP, DIME, TROPI, CP, PTT, PT, TSH #### [facility] [address] [facility] [place] [address] [phone] Cholesterol in LDL mass conc 57 mg/dL Normal 0-130 [facility] Comment on above: Result Comment: LDL Guidelines: <100 Desirable 100-129 Near to/above Desirable 130-159 Borderline >159 Undesirable Direct (measured) LDL and calculated LDL are not interchangeable tests. Performed By: #### F T3, FT4, CDP, DIME, TROPI, CP, PTT, PT, TSH #### [facility] [address] [facility] [place] [address] Cholesterol mass conc 130 mg/dL Normal <200 [facility] Comment on above: Result Comment: Cholesterol Guidelines: <200 Desirable 200-240 Borderline >240 Undesirable Performed By: #### F T3, FT4, CDP, DIME, TROPI, CP, PTT, PT, TSH #### [facility] [address] [facility] [place] [phone] Cholesterol.total/Choles terol in HDL mass ratio 4.6 {ratio} Normal <5 [facility] Comment on above: Performed By: #### F T3, FT4, CDP, DIME, TROPI, CP, PTT, PT, TSH #### [facility] [address] [facility] [place] [address] Triglyceride mass conc 226 mg/dL High <150 [facility] Comment on above: Result Comment: Triglyceride Guidelines: <150 Desirable 150-199 Borderline 200-499 High >499 Very high Based on AHA Guidelines for fasting triglyceride, November 2011. Performed By: #### F T3, FT4, CDP, DIME, TROPI, CP, PTT, PT, TSH #### [facility] [address] [place] [address] Cholesterol in VLDL mass conc NOT REPORTED Normal - [facility] Comment on above: Performed By: #### F T3, FT4, CDP, DIME, TROPI, CP, PTT, PT, TSH #### [facility] [address] [place] [address] Patient fasting?on 9 Patient fasting? yes Normal [facility] Comment on above: Performed By: #### F T3, FT4, CDP, DIME, TROPI, CP, PTT, PT, TSH #### [facility] [address] [place] [address] TSH w/reflex to FT4on 2018 Thyrotropin Qn 1.28 m[IU]/L Normal 0.30-5.00 [facility] Comment on above: Performed By: #### F T3, FT4, CDP, DIME, TROPI, CP, PTT, PT, TSH #### [facility] [address] [facility] [place] [address] Vitamin D 25 OHon 06-28-2018 Vitamin D 25 [place] 34.9 ng/mL Normal 30.0-100.0 [facility] Comment on above: Result Comment: Reference Range: Vitamin D status Range Deficiency <20 ng/mL Mild Deficiency 20-30 ng/mL Sufficiency 30-100 ng/mL Toxicity >100 ng/mL Performed By: #### F T3, FT4, CDP, DIME, TROPI, CP, PTT, PT, TSH #### [facility] [address] [facility] [place] [address] FS CBCon 02-10-2018 Erythrocyte distribution width Auto Ratio (RBC) 13.0 % Normal 11.6-14.8 [facility] Comment on above: Performed By: #### F SCBC ####Unless otherwise noted, all testing performed by [address] [id number]: [id number] Director: Marino Gaitan M.D. Hematocrit Auto Volume Fraction (Bld) 39.3 % Low 41.0-53.0 [facility] Comment on above: Performed By: #### F SCBC ####Unless otherwise noted, all testing performed by [address] [phone]: [id number] Director: Marino Gaitan M.D. Hemoglobin mass conc (Bld) 13.9 g/dL Normal 13.5-17.5 [facility] Comment on above: Performed By: #### F SCBC ####Unless otherwise noted, all testing performed by [facility] [address] [phone]: [id number] Director: Marino Gaitan M.D. Lymphocytes Auto #/vol (Bld) 1.5 K/mcL Normal 0.90-4.00 [facility] Comment on above: Performed By: #### F SCBC ####Unless otherwise noted, all testing performed by [address] [phone]: [id number] Director: Marino Gaitan M.D. Lymphocytes/100 WBC Auto (Bld) 23.7 % Normal [facility] Comment on above: Performed By: #### F SCBC ####Unless otherwise noted, all testing performed by [address] [phone]: [id number] Director: Marino Gaitan M.D. MCH Auto Entitic mass (RBC) 30.5 pg Normal 26.0-34.0 [facility] Comment on above: Performed By: #### F SCBC ####Unless otherwise noted, all testing performed by [address] [phone]: [id number] Director: Marino Gaitan M.D. MCHC Auto mass conc (RBC) 35.4 g/dL Normal 31.0-37.0 [facility] Comment on above: Performed By: #### F SCBC ####Unless otherwise noted, all testing performed by [address] [id number]: [id number] Director: Marino Gaitan M.D. MCV Auto Entitic volume (RBC) 86.4 fL Normal 80-100 [facility] Comment on above: Performed By: #### F SCBC ####Unless otherwise noted, all testing performed by [address] [phone]: [id number] Director: Marino Gaitan M.D. Neutrophils Auto #/vol (Bld) 4.0 K/mcL Normal 1.70-7.00 [facility] Comment on above: Performed By: #### F SCBC ####Unless otherwise noted, all testing performed by [address]CLIA: [id number] Director: Marino Gaitan M.D. Platelet mean volume Auto Entitic volume (Bld) 10.4 fL Normal 9.0-15.5 [facility] Comment on above: Performed By: #### F SCBC ####Unless otherwise noted, all testing performed by [address]CLIA: [id number] Director: Marino Gaitan M.D. Platelets Auto #/vol (Bld) 153 K/mcL Normal 150-400 [facility] Comment on above: Performed By: #### F SCBC ####Unless otherwise noted, all testing performed by [address] [phone]: [id number] Director: Marino Gaitan M.D. RBC Auto #/vol (Bld) 4.55 M/mcL Normal 4.50-5.90 [facility] Comment on above: Performed By: #### F SCBC ####Unless otherwise noted, all testing performed by [place] [address] [place], [place] [phone]: [id number] Director: Marino Gaitan M.D. Segmented Neut % 64.5 % Normal [facility] Comment on above: Performed By: #### F SCBC ####Unless otherwise noted, all testing performed by [address] [phone]: [id number] Director: Marino Gaitan M.D. Testing performed [facility] FSED Normal [facility] Comment on above: Result Comment: Test ing performed at [facility], [address] [place] [address]; Medical Forest Technician Jarett Orantes Performed By: #### F SCBC ####Unless otherwise noted, all testing performed by [address] [phone]: [id number] Director: Marino Gaitan M.D. WBC Auto #/vol (Bld) 6.2 K/mcL Normal 4.5-11.0 [facility] Comment on above: Performed By: #### F SCBC ####Unless otherwise noted, all testing performed by [address] [phone]: [id number] Director: Marino Gaitan M.D. FS Comprehens Metabolic Pane shalom 02-10-2018 Albumin mass conc 3.8 g/dL Normal 3.2-5.2 [facility] Comment on above: Performed By: #### F SCMET ####Unless otherwise noted, all testing performed by [address] [phone]: [id number] Director: Marino Gaitan M.D. ALP enzyme act/vol 74 U/L Normal 40-150 [facility] Comment on above: Performed By: #### F SCMET ####Unless otherwise noted, all testing performed by [address] [phone]: [id number] Director: Marino Gaitan M.D. ALT enzyme act/vol 38 U/L Normal 0-40 [facility] Comment on above: Performed By: #### F SCMET ####Unless otherwise noted, all testing performed by [address] [phone]: [id number] Director: Marino Gaitan M.D. AST enzyme act/vol 28 U/L Normal 0-45 [facility] Comment on above: Performed By: #### F SCMET ####Unless otherwise noted, all testing performed by [address] [phone]: [id number] Director: Marino Gaitan M.D. Bilirubin mass conc 0.8 mg/dL Normal 0.0-1.3 [facility] Comment on above: Performed By: #### F SCMET ####Unless otherwise noted, all testing performed by [address] [phone]: [id number] Director: Marino Gaitan M.D. Calcium mass conc 9.4 mg/dL Normal 8.4-10.2 [facility] Comment on above: Performed By: #### F SCMET ####Unless otherwise noted, all testing performed by [address] [phone]: [id number] Director: Marino Gaitan M.D. Chloride molar conc 103 mmol/L Normal 98-108 [facility] Comment on above: Performed By: #### F SCMET ####Unless otherwise noted, all testing performed by [address] [phone]: [id number] Director: Marino Gaitan M.D. CO2 molar conc 29 mmol/L Normal 21-32 [facility] Comment on above: Performed By: #### F SCMET ####Unless otherwise noted, all testing performed by [address] [phone]: [id number] Director: Marino Gaitan M.D. Creatinine mass conc 1.4 mg/dL High 0.50-1.30 [facility] Comment on above: Performed By: #### F SCMET ####Unless otherwise noted, all testing performed by [address] [phone]: [id number] Director: Marino Gaitan M.D. Glucose mass conc 121 mg/dL High 65-99 [facility] Comment on above: Performed By: #### F SCMET ####Unless otherwise noted, all testing performed by [address] [phone]: [id number] Director: Marino Gaitan M.D. Potassium molar conc 4.1 mmol/L Normal 3.5-5.1 [facility] Comment on above: Performed By: #### F SCMET ####Unless otherwise noted, all testing performed by [address] [phone]: [id number] Director: Marino Gaitan M.D. Protein mass conc 6.6 g/dL Normal 6.0-8.0 [facility] Comment on above: Performed By: #### F SCMET ####Unless otherwise noted, all testing performed by [address] [phone]: [id number] Director: Marino Gaitan M.D. Sodium molar conc 144 mmol/L Normal 135-145 [facility] Comment on above: Performed By: #### F SCMET ####Unless otherwise noted, all testing performed by [address] [phone]: [id number] Director: Marino Gaitan M.D. Testing performed [facility] Comment on above: Result Comment: Test ing performed at [facility], [facility] [place], [place]; Medical Forest Technician Jarett Orantes Performed By: #### F SCMET ####Unless otherwise noted, all testing performed by [address] [phone]: [id number] Director: Marino Gaitan M.D. Urea nitrogen mass conc 12 mg/dL Normal 8-25 [facility] Comment on above: Performed By: #### F SCMET ####Unless otherwise noted, all testing performed by [place] [phone]: [id number] Director: Marino Gaitan M.D. FS Urinalysison 02-10-2018 Bilirubin,Urine Negative Normal Negative [facility] Comment on above: Performed By: #### F SUA ####Unless otherwise noted, all testing performed by [address] [phone]: [id number] Director: Marino Gaitan M.D. Blood,Urine Negative Normal Negative [facility] Comment on above: Performed By: #### F SUA ####Unless otherwise noted, all testing performed by [address] [phone]: [id number] Director: Marino Gaitan M.D. Character Clear Normal [facility] Comment on above: Performed By: #### F SUA ####Unless otherwise noted, all testing performed by [address] [phone]: [id number] Director: Marino Gaitan M.D. Color Nom (U) Yellow Normal [facility] Comment on above: Performed By: #### F SUA ####Unless otherwise noted, all testing performed by [address] [phone]: [id number] Director: Marino Gaitan M.D. Glucose Ql (U) Negative Normal Negative [facility] Comment on above: Performed By: #### F SUA ####Unless otherwise noted, all testing performed by [facility] [phone]: [id number] Director: Marino Gaitan M.D. Ketone,Urine Negative Normal Negative [facility] Comment on above: Performed By: #### F SUA ####Unless otherwise noted, all testing performed by [address] [phone]: [id number] Director: Marino Gaitan M.D. Leuk.Esterase,Urine Negative Normal Negative [facility] Comment on above: Performed By: #### F SUA ####Unless otherwise noted, all testing performed by [address]IA: [id number] Director: Marino Gaitan M.D. Nitrite,Urine Negative Normal NEG;NEGATI VE [facility] Comment on above: Performed By: #### F SUA ####Unless otherwise noted, all testing performed by [address]CLIA: [id number] Director: Marino Gaitan M.D. pH Test strip (U) 7.0 [pH] Normal 4.5-8.0 [facility] Comment on above: Performed By: #### F SUA ####Unless otherwise noted, all testing performed by [address]CLIA: [id number] Director: Marino Gaitan M.D. Protein,Urine Negative Normal Negative [facility] Comment on above: Performed By: #### F SUA ####Unless otherwise noted, all testing performed by [address] [phone]: [id number] Director: Marino Gaitan M.D. Specific Sloan,Urine 1.020 Normal 1.003 -1.02 9 [facility] Comment on above: Performed By: #### F SUA ####Unless otherwise noted, all testing performed by [address] [phone]: [id number] Director: Marino Gaitan M.D. Testing performed [facility] Comment on above: Result Comment: Test ing performed at [facility], [address] [place] [address]; Medical Forest Technician Jarett Orantes Performed By: #### F SUA ####Unless otherwise noted, all testing performed by [address] [phone]: [id number] Director: Marino Gaitan M.D. Urobilinogen,Urine 0.2 mg/dL Normal <2 [facility] Comment on above: Performed By: #### F SUA ####Unless otherwise noted, all testing performed by [address] [phone]: [id number] Director: Marino Gaitan M.D. Lactic Acidon 02-10-2018 Lactate molar conc 1.0 mmol/L Normal 0.6-2.0 [facility] Comment on above: Performed By: #### L A ####Unless otherwise noted, all testing performed by [address] [phone]: [id number] Director: Marino Gaitan M.D. CARDIAC STRESS TESTon 2017 CARDIAC STRESS TEST [address] [address] CARDIAC STRESS TEST PATIENT NAME: KRISHAN BURNHAM : 1965 MED REC NO: [id number] ROOM: ACCOUNT NO: [id number] ADMIT DATE: 12/29/2017 PROVIDER: Leif Mckeon DATE [...] JOBNO Doc#: Unknown CC: Steve Singh Normal [facility] CARDIAC STRESS TEST [facility] [address] [place] [address] CARDIAC STRESS TEST PATIENT NAME: KRISHAN BURNHAM : 1965 MED REC NO: [id number] ROOM: ACCOUNT NO: [id number] ADMIT DATE: 12/29/2017 PROVIDER: Josias Singh DATE [...] Cardiolite to follow. JOSIAS SINGH [id number] Doc#: [id number] CC: Normal [facility] NM MYOCARDIAL SPECT REST EXE RCISE OR RXon 12-29-2017 NM MYOCARDIAL SPECT REST EXERCISE OR RX Radiology exam is complete. No Radiologist dictation. Please follow up with ordering provider. Final result Normal [facility] Progress Noteon 12-22-2017 HIM IP Note OR Dispensing Lead Normal [facility] APTTon 12-09-2017 aPTT Coag time (Bld) 26.1 s Normal 21.0-33.0 [facility] Comment on above: Result Comment: PTT Therapeutic Range: 61.7-88.4 Therapeutic range corresponds to plasma heparin levels of 0.3-0.7 U/mL. Performed By: #### F T3, FT4, CDP, DIME, TROPI, CP, PTT, PT, TSH #### [address] [place] [address] CBC with Diffon 12-09-2017 Abs. Basophil 0.00 k/uL Normal 0.0-0.2 [facility] Comment on above: Performed By: #### F T3, FT4, CDP, DIME, TROPI, CP, PTT, PT, TSH #### [facility] [address] [facility] [place] [address] Abs.Neutrophil (Seg) 4.10 k/uL Normal 2.1-6.5 [facility] Comment on above: Performed By: #### F T3, FT4, CDP, DIME, TROPI, CP, PTT, PT, TSH #### [facility] [address] [facility] [place] [address] Auto Diff Performed YES Normal [facility] Comment on above: Performed By: #### F T3, FT4, CDP, DIME, TROPI, CP, PTT, PT, TSH #### [facility] [address] [facility] [place] [address] Basophils/100 WBC (Bld) 0 % Normal 0-2 M [facility] Comment on above: Performed By: #### F T3, FT4, CDP, DIME, TROPI, CP, PTT, PT, TSH #### [address] [place] [address] Eosinophils #/vol (Bld) 0.20 10*3/uL Normal 0.0-0.4 [facility] Comment on above: Performed By: #### F T3, FT4, CDP, DIME, TROPI, CP, PTT, PT, TSH #### [address] [place] [address] Eosinophils/100 WBC (Bld) 3 % Normal 0-5 [facility] Comment on above: Performed By: #### F T3, FT4, CDP, DIME, TROPI, CP, PTT, PT, TSH #### [address] [place] [address] Erythrocyte distribution width Ratio (RBC) 13.2 % Normal 12.1-15.2 [facility] Comment on above: Performed By: #### F T3, FT4, CDP, DIME, TROPI, CP, PTT, PT, TSH #### [address] [place] [address] Hematocrit Volume Fraction (Bld) 47.5 % Normal 41-53 [facility] Comment on above: Performed By: #### F T3, FT4, CDP, DIME, TROPI, CP, PTT, PT, TSH #### [facility] [address] [facility] [place] [address] Hemoglobin mass conc (Bld) 15.9 g/dL Normal 13.5-17.5 [facility] Comment on above: Performed By: #### F T3, FT4, CDP, DIME, TROPI, CP, PTT, PT, TSH #### [facility] [place] [address] [facility] [place] [address] Lymphocytes #/vol (Bld) 1.30 10*3/uL Normal 1.0-4.8 [facility] Comment on above: Performed By: #### F T3, FT4, CDP, DIME, TROPI, CP, PTT, PT, TSH #### [facility] [address] [place] [address] Lymphocytes/100 WBC (Bld) 22 % Normal 13-44 [facility] Comment on above: Performed By: #### F T3, FT4, CDP, DIME, TROPI, CP, PTT, PT, TSH #### [facility] [address] [place] [address] MCH Entitic mass (RBC) 29.9 pg Normal 26-34 [facility] Comment on above: Performed By: #### F T3, FT4, CDP, DIME, TROPI, CP, PTT, PT, TSH #### [facility] [place] [address] [place] [address] MCHC mass conc (RBC) 33.5 g/dL Normal 31-37 [facility] Comment on above: Performed By: #### F T3, FT4, CDP, DIME, TROPI, CP, PTT, PT, TSH #### [facility] [address] [facility] [place] [address] MCV Entitic volume (RBC) 89.3 fL Normal 80-100 [facility] Comment on above: Performed By: #### F T3, FT4, CDP, DIME, TROPI, CP, PTT, PT, TSH #### [facility] [address] [facility] [place] [address] Monocytes #/vol (Bld) 0.60 10*3/uL Normal 0.0-1.0 [facility] Comment on above: Performed By: #### F T3, FT4, CDP, DIME, TROPI, CP, PTT, PT, TSH #### [facility] [address] [facility] [place] [address] Monocytes/100 WBC (Bld) 10 % High 5-9 [facility] Comment on above: Performed By: #### F T3, FT4, CDP, DIME, TROPI, CP, PTT, PT, TSH #### [facility] [address] [facility] [place] [address] Neutrophil (Seg) 65 % Normal 39-75 [facility] Comment on above: Performed By: #### F T3, FT4, CDP, DIME, TROPI, CP, PTT, PT, TSH #### [address] [place] [address] Platelets #/vol (Bld) 157 10*3/uL Normal 140-450 [facility] Comment on above: Performed By: #### F T3, FT4, CDP, DIME, TROPI, CP, PTT, PT, TSH #### [facility] [address] [facility] [place] [address] RBC #/vol (Bld) 5.32 10*6/uL Normal 4.5-5.9 [facility] Comment on above: Performed By: #### F T3, FT4, CDP, DIME, TROPI, CP, PTT, PT, TSH #### [place] [address] WBC #/vol (Bld) 6.2 10*3/uL Normal 3.5-11.0 [facility] Comment on above: Performed By: #### F T3, FT4, CDP, DIME, TROPI, CP, PTT, PT, TSH #### [place] [address] Abs.Imm.Granulocyte NOT REPORTED Normal 0.00-0.30 [facility] Comment on above: Performed By: #### F T3, FT4, CDP, DIME, TROPI, CP, PTT, PT, TSH #### [place] [address] Immature granulocytes #/vol (Bld) NOT REPORTED Normal 0 [facility] Comment on above: Performed By: #### F T3, FT4, CDP, DIME, TROPI, CP, PTT, PT, TSH #### [place] [address] NRBC Automated NOT REPORTED Normal [facility] Comment on above: Performed By: #### F T3, FT4, CDP, DIME, TROPI, CP, PTT, PT, TSH #### [place] [address] Platelet mean volume Entitic volume (Bld) NOT REPORTED Normal 6.0-12.0 [facility] Comment on above: Performed By: #### F T3, FT4, CDP, DIME, TROPI, CP, PTT, PT, TSH #### [place] [address] Platelets #/vol (Bld) NOT REPORTED Normal [facility] Comment on above: Performed By: #### F T3, FT4, CDP, DIME, TROPI, CP, PTT, PT, TSH #### [place] [address] RBC morphology finding Nom (Bld) NOT REPORTED Normal [facility] Comment on above: Performed By: #### F T3, FT4, CDP, DIME, TROPI, CP, PTT, PT, TSH #### [facility] [address] [place] [address] WBC Morphology NOT REPORTED Normal [facility] Comment on above: Performed By: #### F T3, FT4, CDP, DIME, TROPI, CP, PTT, PT, TSH #### [facility] [address] [place] [address] CT HEAD WO CONTRASTon 2017 CT HEAD [...] Krishan Miranda MD 12/09/17 Final result Normal [facility] Comp Metabolic Profon 2017 (cont.) Normal [facility] Comment on above: Result Comment: Aver age GFR for 50-59 years old: 93 mL/min/1.73sq m Chronic Kidney Disease: <60 mL/min/1.73sq m Kidney failure: <15 mL/min/1.73sq m eGFR calculated using average adult body mass. Additional eGFR calculator available at: http://www.[employer]/multiple_crcl_2012.htm Performed By: #### F T3, FT4, CDP, DIME, TROPI, CP, PTT, PT, TSH #### [facility] [address] [place] [address] Albumin mass conc 4.4 g/dL Normal 3.5-5.2 [facility] Comment on above: Performed By: #### F T3, FT4, CDP, DIME, TROPI, CP, PTT, PT, TSH #### [facility] [address] [facility] [place] [address] Alkaline Phos 75 U/L Normal 40-129 [facility] Comment on above: Performed By: #### F T3, FT4, CDP, DIME, TROPI, CP, PTT, PT, TSH #### [facility] [address] [facility] [place] [address] ALT enzyme act/vol 38 U/L Normal 5-41 [facility] Comment on above: Performed By: #### F T3, FT4, CDP, DIME, TROPI, CP, PTT, PT, TSH #### [facility] [address] [facility] [place] [address] Anion gap molar conc 10 mmol/L Normal 9-17 [facility] Comment on above: Performed By: #### F T3, FT4, CDP, DIME, TROPI, CP, PTT, PT, TSH #### [facility] [address] [facility] [place] [address] AST enzyme act/vol 23 U/L Normal <40 [facility] Comment on above: Performed By: #### F T3, FT4, CDP, DIME, TROPI, CP, PTT, PT, TSH #### [facility] [address] [facility] [place] [address] Bilirubin Ql (U) 0.36 mg/dL Normal 0.30-1.20 [facility] Comment on above: Performed By: #### F T3, FT4, CDP, DIME, TROPI, CP, PTT, PT, TSH #### [facility] [address] [facility] [place] [address] BUN/CRE Ratio 16 Normal 9-20 [facility] Comment on above: Performed By: #### F T3, FT4, CDP, DIME, TROPI, CP, PTT, PT, TSH #### [facility] [address] [facility] [place] [address] Calcium mass conc 9.5 mg/dL Normal 8.6-10.4 [facility] Comment on above: Performed By: #### F T3, FT4, CDP, DIME, TROPI, CP, PTT, PT, TSH #### [facility] [address] [facility] [place] [address] Chloride molar conc 104 mmol/L Normal 98-107 [facility] Comment on above: Performed By: #### F T3, FT4, CDP, DIME, TROPI, CP, PTT, PT, TSH #### [address] [place] [address] CO2 molar conc 24 mmol/L Normal 20-31 [facility] Comment on above: Performed By: #### F T3, FT4, CDP, DIME, TROPI, CP, PTT, PT, TSH #### [facility] [address] [facility] [place] [address] Creatinine mass conc 0.93 mg/dL Normal 0.70-1.20 [facility] Comment on above: Performed By: #### F T3, FT4, CDP, DIME, TROPI, CP, PTT, PT, TSH #### [facility] [address] [facility] [place] [address] GFR, Amer >60 Normal >60 [facility] Comment on above: Performed By: #### F T3, FT4, CDP, DIME, TROPI, CP, PTT, PT, TSH #### [address] [place] [address] GFR,non Amer >60 Normal >60 [facility] Comment on above: Performed By: #### F T3, FT4, CDP, DIME, TROPI, CP, PTT, PT, TSH #### [facility] [address] [facility] [place] [address] Glucose mass conc 157 mg/dL High 70-99 [facility] Comment on above: Performed By: #### F T3, FT4, CDP, DIME, TROPI, CP, PTT, PT, TSH #### [facility] [address] [facility] [place] [address] Potassium molar conc 3.9 mmol/L Normal 3.7-5.3 [facility] Comment on above: Performed By: #### F T3, FT4, CDP, DIME, TROPI, CP, PTT, PT, TSH #### [facility] [address] [facility] [place] [address] Protein mass conc 7.2 g/dL Normal 6.4-8.3 [facility] Comment on above: Performed By: #### F T3, FT4, CDP, DIME, TROPI, CP, PTT, PT, TSH #### [facility] [address] [facility] [place] [address] Sodium molar conc 138 mmol/L Normal 135-144 [facility] Comment on above: Performed By: #### F T3, FT4, CDP, DIME, TROPI, CP, PTT, PT, TSH #### [facility] [address] [facility] [place] [address] Urea nitrogen mass conc 15 mg/dL Normal 6-20 M [facility] Comment on above: Performed By: #### F T3, FT4, CDP, DIME, TROPI, CP, PTT, PT, TSH #### [facility] [address] [facility] [place] [address] Albumin/Globulin mass ratio NOT REPORTED Normal 1.0-2.5 [facility] Comment on above: Performed By: #### F T3, FT4, CDP, DIME, TROPI, CP, PTT, PT, TSH #### [facility] [address] [place] [address] Staging: NOT REPORTED Normal [facility] Comment on above: Performed By: #### F T3, FT4, CDP, DIME, TROPI, CP, PTT, PT, TSH #### [facility] [address] [place] [address] D-Dimer Teston 12-09-2017 D-Dimer Test <0.19 Normal 0.00-0.50 [facility] Comment on above: Result Comment: Elevated levels [...] DIME, TROPI, CP, PTT, PT, TSH #### [facility] [address] [place] [address] PTon 12-09-2017 INR Coag RelTime (PPP) 1.1 {INR} Normal [facility] Comment on above: Result Comment: * THERAPY INDICATIONS * REFERENCE RANGES Pts not on anti-coagulants 1.0 - 1.5 INR Low risk pts on anti-coagulants 2.0 - 3.0 INR High risk pts on anti-coagulants 2.5 - 3.5 INR Prevention of atrial thrombo-embolism 3.0 - 4.5 INR Performed By: #### F T3, FT4, CDP, DIME, TROPI, CP, PTT, PT, TSH #### [facility] [address] [place] [address] Prothrombin time (PT) Coag time (PPP) 10.6 s Normal 9.0-11.6 [facility] Comment on above: Performed By: #### F T3, FT4, CDP, DIME, TROPI, CP, PTT, PT, TSH #### [facility] [address] [place] [id number] T3, Freeon 12-09-2017 T3 free mass conc 3.14 pg/mL Normal 2.02-4.43 [facility] Comment on above: Performed By: #### F T3, FT4, CDP, DIME, TROPI, CP, PTT, PT, TSH #### [facility] [address] [place] [id number] ([phone]) Thyroid Stim. Horm.on 2017 Thyrotropin Qn 1.44 m[IU]/L Normal 0.30-5.00 [facility] Comment on above: Performed By: #### F T3, FT4, CDP, DIME, TROPI, CP, PTT, PT, TSH #### [facility] [address] [place] [address] ([phone]) Thyroxine, Freeon 12-09-2017 Thyroxine, Free 1.03 ng/dL Normal 0.93-1.70 [facility] Comment on above: Performed By: #### F T3, FT4, CDP, DIME, TROPI, CP, PTT, PT, TSH #### [facility] [address] [place] [address] (223) Troponinon 12-09-2017 Troponin I.cardiac mass conc Normal [facility] Comment on above: Result Comment: Refe rence [...] DIME, TROPI, CP, PTT, PT, TSH #### [facility] [address] [place] [address] (132) Troponin I.cardiac mass conc ng/mL Normal <0.03 [facility] Comment on above: Result Comment: Trop onin T results cannot be compared to Troponin-I results. Performed By: #### F T3, FT4, CDP, DIME, TROPI, CP, PTT, PT, TSH #### [facility] [address] [place] [address] XR CHEST PORTABLEon 12-10-19 XR CHEST PORTABLE [...] Brittany Zamora DO 12/09/17 Final result Normal [facility] Progress Noteon 10-12-2017 HIM IP Note OR Dispensing Lead Normal [facility] Progress Noteon 08-17-2017 HIM IP Note OR Dispensing Lead Normal [facility] Discharge Summaryon 04-20-19 Discharge Summary [id number] Admitted: 04/16/2017 Discharged: [...] [facility], [facility] presentation to [facility], the patient was stable. Right-sided visionwas back [...] orneurologist for evaluation regarding headache treatment. Continue elmihzy50 mg daily. Follow with primary care physician or neurologist who treats Parkinson disease.DISCHARGE MEDICATIONS: Aspirin 81 mg everyday, carbidopa 25 mg, [id number] mg tablet every 4 hours. Clonazepam 0.5 [...] Dict: 04/19/2017/06:23 P/Genaro Mancera Trans: 04/20/2017 06:59 A/[id number] Normal [facility] EEG Reporton 04-19-2017 [facility] [id number] Age: 51 Physician: Date: 04/18/2017 Lab#: [id number] Date of : 1965 Patient Type: I [facility] [id number] [place], [place] [address] Board of the [place] [employer] Accredited LaboratoryTECHNOLOGIST: Guera Levy.EEG DURATION: 28 minutes and 06 seconds.CLINICAL HISTORY: This 51-year-old male presented from [facility] with chest pain, right-sided weakness, right-sided [...] Dict: 04/18/2017/07:02 P/MEGAN Byrdate Trans: 04/19/2017 03:05 P/[id number] Normal [facility] BASIC METABOLIC PANELon 02-2 Calcium 9.1 mg/dL Normal 8.6-10.3 [facility] Comment on above: Order Comment: No: D o not add to previous draw Performed By: #### 1 0070, 26510, 34421, 72171, 96784 ####[facility] [place] [address], [facility] Chloride 103 mmol/L Normal 98-107 [facility] Comment on above: Order Comment: No: D o not add to previous draw Performed By: #### 1 0070, 81975, 50933, 93286, 41228 ####[facility] [place] [address], [facility] CO2 26 mmol/L Normal 21-31 [facility] Comment on above: Order Comment: No: D o not add to previous draw Performed By: #### 1 0070, 79799, 58376, 78819, 97204 ####[facility] [place] [address], [facility] Creatinine 1.16 mg/dL Normal 0.70-1.30 [facility] Comment on above: Order Comment: No: D o not add to previous draw Performed By: #### 1 0070, 34145, 73569, 85992, 75297 ####[facility] [place] [address], [facility] eGFR (black) mL/min/{1.73_m2} Normal >60 [facility] Comment on above: Order Comment: No: D o not add to previous draw Performed By: #### 1 0070, 56224, 06898, 18035, 14996 ####[facility] [place] [address], [facility] eGFR (non-black) mL/min/{1.73_m2} Normal >60 [facility] Comment on above: Order Comment: No: D o not add to previous draw Performed By: #### 1 0070, 90032, 47822, 93071, 82927 ####[facility] [facility].[address] Glucose mass conc 111 mg/dL High 70-100 [facility] Comment on above: Order Comment: No: D o not add to previous draw Performed By: #### 1 0070, 67789, 50797, 86999, 77544 ####[facility] [facility].[address] Potassium molar conc 4.2 mmol/L Normal 3.5-5.1 [facility] Comment on above: Order Comment: No: D o not add to previous draw Performed By: #### 1 0070, 77720, 71853, 47443, 07414 ####[facility] [facility].[address] Sodium 137 mmol/L Normal 136-145 [facility] Comment on above: Order Comment: No: D o not add to previous draw Performed By: #### 1 0070, 95290, 97394, 61878, 62175 ####[facility] [facility].[address] Urea nitrogen 14 mg/dL Normal 7-25 [facility] Comment on above: Order Comment: No: D o not add to previous draw Performed By: #### 1 0070, 84872, 72561, 89452, 00034 ####[facility] [facility].[address] CBC W/DIFFon 04-18-2017 ABS BASOPHILS 0.0 10*3/uL Normal 0.0-0.2 [facility] Comment on above: Order Comment: No: D o not add to previous draw Performed By: #### 1 0070, 45471, 51515, 00112, 93129 ####[facility] [facility].[address] ABS IMM GRANS 0.0 10*3/uL Normal 0.0-0.2 [facility] Comment on above: Order Comment: No: D o not add to previous draw Performed By: #### 1 0070, 60943, 22576, 20354, 84911 ####[facility] ABS NEUTROPHILS 9.2 10*3/uL High 1.6-7.6 [facility] Comment on above: Order Comment: No: D o not add to previous draw Performed By: #### 1 0070, 28691, 86528, 27908, 39802 ####[facility] Basophils Auto #/vol (Bld) 0.3 % Normal 0.0-1.0 [facility] Comment on above: Order Comment: No: D o not add to previous draw Performed By: #### 1 0070, 03610, 04778, 53633, 66857 ####[facility] Eosinophils 0.1 10*3/uL Normal 0.0-0.5 [facility] Comment on above: Order Comment: No: D o not add to previous draw Performed By: #### 1 0070, 19340, 30437, 02285, 08411 ####[facility] [facility].[address] Eosinophils/100 leukocytes 1.0 % Normal 0.0-6.0 [facility] Comment on above: Order Comment: No: D o not add to previous draw Performed By: #### 1 0070, 32171, 85385, 50501, 58495 ####[facility] Erythrocyte distribution width Auto Ratio (RBC) 12.1 % Normal 11.5-15.0 [facility] Comment on above: Order Comment: No: D o not add to previous draw Performed By: #### 1 0070, 51936, 99234, 94489, 66053 ####[facility] Erythrocytes (RBC) 5.61 10*6/uL Normal 4.20-5.70 [facility] Comment on above: Order Comment: No: D o not add to previous draw Performed By: #### 1 0070, 77602, 42793, 61895, 12426 ####[facility] Hematocrit (HCT) 47.9 % Normal 39.0-50.0 [facility] Comment on above: Order Comment: No: D o not add to previous draw Performed By: #### 1 0070, 72384, 08362, 59716, 02227 ####[facility] Hemoglobin mass conc (Bld) 16.6 g/dL Normal 13.0-17.0 [facility] Comment on above: Order Comment: No: D o not add to previous draw Performed By: #### 1 0070, 23302, 28753, 57254, 05015 ####[facility] IMMATURE GRANS 0.3 % Normal 0.0-1.0 [facility] Comment on above: Order Comment: No: D o not add to previous draw Performed By: #### 1 0070, 60739, 36266, 10017, 84994 ####[facility] Lymphocytes 1.2 10*3/uL Normal 1.2-4.0 [facility] Comment on above: Order Comment: No: D o not add to previous draw Performed By: #### 1 0070, 13627, 28246, 42953, 30138 ####[facility] Lymphocytes/100 leukocytes 10.4 % Low 20.0-45.0 [facility] Comment on above: Order Comment: No: D o not add to previous draw Performed By: #### 1 0070, 37748, 55677, 23962, 43849 ####[facility] [facility].[address] MCH 29.6 pg Normal 27.0-33.0 [facility] Comment on above: Order Comment: No: D o not add to previous draw Performed By: #### 1 0070, 89166, 49321, 67380, 50231 ####[facility] [facility].[address] MCHC mass conc (RBC) 34.7 g/dL Normal 32.0-35.0 [facility] Comment on above: Order Comment: No: D o not add to previous draw Performed By: #### 1 0070, 69140, 31917, 88414, 99945 ####[facility] [facility].[address] MCV 85.4 fL Normal 82.0-98.0 [facility] Comment on above: Order Comment: No: D o not add to previous draw Performed By: #### 1 0070, 12719, 39095, 55496, 42486 ####[facility] [facility].[address] Monocytes 0.9 10*3/uL Normal 0.1-1.0 [facility] Comment on above: Order Comment: No: D o not add to previous draw Performed By: #### 1 0070, 94838, 89097, 98800, 78720 ####[facility] [facility].[address] MONOS 7.6 % Normal 5.0-12.0 [facility] Comment on above: Order Comment: No: D o not add to previous draw Performed By: #### 1 0070, 34710, 06470, 00959, 81991 ####[facility] [facility].[address] Neutrophils/100 leukocytes 80.4 % High 40.0-72.0 [facility] Comment on above: Order Comment: No: D o not add to previous draw Performed By: #### 1 0070, 86189, 77140, 56337, 67288 ####[facility] [facility].[address] NRBC 0 % Normal 0-0 [facility] Comment on above: Order Comment: No: D o not add to previous draw Performed By: #### 1 0070, 15347, 51973, 36754, 53493 ####[facility] [facility].[address] PLAT CNT 152 10*3/uL Normal 150-400 [facility] Comment on above: Order Comment: No: D o not add to previous draw Performed By: #### 1 0070, 14146, 37366, 72218, 58851 ####[facility] [facility].[address] WBC (Leukocytes) 11.5 10*3/uL High 4.0-10.6 [facility] Comment on above: Order Comment: No: D o not add to previous draw Performed By: #### 1 0070, 87923, 82963, 72807, 20079 ####[facility] [place] [address] BRAIN WO CONTRASTon 04-18 CT B[facility] [address] [place] [address] [id number] P atient Name: KRISHAN BURNHAM : 1965Sex: MAge: Race: WhiteMRN: [id number]. Location: [address] Status: IVisit #: [id number] Date: 04/17/2017 6:15:00 PMCompleted Date: 04/18/2017 12:41 AMRequesting Provider: ANA ZEPEDA Attending Provider: ELIER LU Report Copy To: Signs & Symptoms: Stroke(CVA)History: Patient history not availableComments: R/O CVAExam: CT BRAIN WO CONTRASTAccession #: [id number] ======CT BRAIN WO CONTRAST 04/18/2017 12:41 AM [...] findings. Electronically signed by:Kev Guallpa. Transcribed by: [email or web address], User Resident: MARIAM JUNEElectronically Signed by: KEV GUALLPA @ 04/18/2017 09:52 AMI personally read this/these film(s) with this resident Normal [facility] Comment on above: Order Comment: No: D o not add to previous draw MAGNESIUM BLOODon 04-18-2017 Magnesium 2.1 mg/dL Normal 1.9-2.7 [facility] Comment on above: Order Comment: No: D o not add to previous draw Performed By: #### 1 0070, 31249, 54467, 69573, 03478 ####[address] PORTABLE CHEST 1 VIEWon 03-31 PORTABLE CHEST 1 VIEW [facility] [address]ad[address]iv[address] [place] [id number] P atient Name: KRISHAN BURNHAM : 1965Sex: MAge: Race: WhiteMRN: [id number]. Location: [id number] Status: IVisit #: [id number] Date: 04/18/2017 11:00:00 AMCompleted Date: 04/18/2017 11:39 AMRequesting Provider: APRYL MARQUEZ Attending Provider: ELIER LU Report Copy To: Signs & Symptoms: OtherHistory: Patient history not availableComments: R/O Aspiration, H/O CVAExam: PORTABLE CHEST 1 VIEWAccession #: [id number] ======PORTABLE CHEST 1 VIEW 04/18/2017 11:39 AM [...] effort. Electronically signed by:Manjinder Hernandes. Transcribed by: [email or web address], User Resident: Electronically Signed by: MANJINDER HERNANDES @ 04/18/2017 12:20 PM Normal [facility] Comment on above: Order Comment: No: D o not add to previous draw BASIC METABOLIC PANELon - Calcium 8.9 mg/dL Normal 8.6-10.3 [facility] Comment on above: Order Comment: No: D o not add to previous draw Performed By: #### 1 0070, 36466, 75554, 87323, 64121 ####[facility] [place] [address], [facility] Chloride 106 mmol/L Normal 98-107 [facility] Comment on above: Order Comment: No: D o not add to previous draw Performed By: #### 1 0070, 07030, 10113, 90114, 78370 ####[facility] [place] [address], [facility] CO2 24 mmol/L Normal 21-31 [facility] Comment on above: Order Comment: No: D o not add to previous draw Performed By: #### 1 0070, 72126, 47322, 18406, 98467 ####[facility] [place] [address], [place] Creatinine 1.17 mg/dL Normal 0.70-1.30 [facility] Comment on above: Order Comment: No: D o not add to previous draw Performed By: #### 1 0070, 46483, 22016, 70783, 58205 ####[facility] eGFR (black) mL/min/{1.73_m2} Normal >60 [facility] Comment on above: Order Comment: No: D o not add to previous draw Performed By: #### 1 0070, 69373, 51407, 11617, 88968 ####[facility] eGFR (non-black) mL/min/{1.73_m2} Normal >60 Th [facility] Comment on above: Order Comment: No: D o not add to previous draw Performed By: #### 1 0070, 38638, 57205, 54924, 02854 ####[facility] [place] [address], [facility] Glucose mass conc 94 mg/dL Normal 70-100 [facility] Comment on above: Order Comment: No: D o not add to previous draw Performed By: #### 1 0070, 69558, 99926, 10822, 98898 ####[facility] [place] [address], [facility] Potassium molar conc 4.3 mmol/L Normal 3.5-5.1 [facility] Comment on above: Order Comment: No: D o not add to previous draw Performed By: #### 1 0070, 86675, 35185, 82586, 21610 ####[facility] [place] [address], [facility] Sodium 138 mmol/L Normal 136-145 [facility] Comment on above: Order Comment: No: D o not add to previous draw Performed By: #### 1 0070, 17169, 12682, 57604, 26774 ####[facility] Urea nitrogen 13 mg/dL Normal 7-25 [facility] Comment on above: Order Comment: No: D o not add to previous draw Performed By: #### 1 0070, 19584, 34922, 43594, 33084 ####[facility] CBC COMPLETE BLOOD COUNTon 0 - Erythrocyte distribution width Auto Ratio (RBC) 12.0 % Normal 11.5-15.0 [facility] Comment on above: Order Comment: No: D o not add to previous draw Performed By: #### 5 0608 ####[facility] Erythrocytes (RBC) 5.49 10*6/uL Normal 4.20-5.70 [facility] Comment on above: Order Comment: No: D o not add to previous draw Performed By: #### 5 0608 ####[facility] [facility] Hematocrit (HCT) 46.9 % Normal 39.0-50.0 [facility] Comment on above: Order Comment: No: D o not add to previous draw Performed By: #### 5 0608 ####[facility] Hemoglobin mass conc (Bld) 16.2 g/dL Normal 13.0-17.0 [facility] Comment on above: Order Comment: No: D o not add to previous draw Performed By: #### 5 0608 ####[facility] [facility].[address] MCH 29.5 pg Normal 27.0-33.0 [facility] Comment on above: Order Comment: No: D o not add to previous draw Performed By: #### 5 0608 ####[place] [address] MCHC mass conc (RBC) 34.5 g/dL Normal 32.0-35.0 [facility] Comment on above: Order Comment: No: D o not add to previous draw Performed By: #### 5 0608 ####[address] MCV 85.4 fL Normal 82.0-98.0 [facility] Comment on above: Order Comment: No: D o not add to previous draw Performed By: #### 5 0608 ####[address] NRBC 0 % Normal 0-0 [facility] Comment on above: Order Comment: No: D o not add to previous draw Performed By: #### 5 0608 ####[address] PLAT CNT 145 10*3/uL Low 150-400 [facility] Comment on above: Order Comment: No: D o not add to previous draw Performed By: #### 5 0608 ####[address] WBC (Leukocytes) 9.8 10*3/uL Normal 4.0-10.6 [facility] Comment on above: Order Comment: No: D o not add to previous draw Performed By: #### 5 0608 ####[address] CTA HEADon 04-17-2017 [facility] HEAD [facility] [place] [id number] P atient Name: KRISHAN BURNHAM : 1965Sex: MAge: Race: NAMRN: [id number]. Location: OUTPPatient Status: IVisit #: [id number] Date: 04/16/2017 10:10:00 PMCompleted Date: 04/16/2017 11:58 PMRequesting Provider: CHEO CRAMER Attending Provider: VINI KEY FA Report Copy To: Signs & Symptoms: Level 2 Stroke Alert R side weaknessHistory: Level 2 Stroke Alert R side weaknessComments: Level 2 Stroke Alert R side weaknessExam: CTA HEADAccession #: [id number] ======CTA HEAD, CTA NECK 04/16/2017 11:58 PM [...] disease Electronically signed by:Idania Geiger. Transcribed by: [email or web address], User Resident: Electronically Signed by: IDANIA GEIGER @ 04/17/2017 08:51 AM Normal [facility] Comment on above: Order Comment: Level 2 Stroke Alert R side weakness CTA NECKon 04-17-2017 [facility]ECK [facility] [address] [place] [address] P atient Name: KRISHAN BURNHAM : 1965Sex: MAge: Race: NAMRN: [id number]. Location: OUTPPatient Status: IVisit #: [id number] Date: 04/16/2017 10:15:00 PMCompleted Date: 04/16/2017 11:58 PMRequesting Provider: CHEO CRAMER Attending Provider: VINI KEY FA Report Copy To: Signs & Symptoms: Level 2 Stroke Alert R side weaknessHistory: Level 2 Stroke Alert R side weaknessComments: Level 2 Stroke Alert R side weaknessExam: CTA NECKAccession #: [id number] ======CTA HEAD, CTA NECK 04/16/2017 11:58 PM [...] disease Electronically signed by:Idania Geiger. Transcribed by: [email or web address], User Resident: Electronically Signed by: IDANIA GEIGER @ 04/17/2017 08:51 AM Normal [facility] Comment on above: Order Comment: Level 2 Stroke Alert R side weakness HEMOGLOBIN A1Con 04-17-2017 Glucose mass conc 105 mg/dL Normal 70-126 [facility] Comment on above: Order Comment: No: D o not add to previous draw Performed By: #### 1 0070, 28778, 67836, 28597, 97482 ####[facility] Hemoglobin A1c/Hemoglobin.total mass fraction (Bld) 5.3 % Normal 4.0-6.0 [facility] Comment on above: Order Comment: No: D o not add to previous draw Performed By: #### 1 0070, 95109, 04969, 33601, 52731 ####[facility] LIPID PROFILEon 04-17-2017 Cholesterol 120 mg/dL Normal 120-200 [facility] Comment on above: Result Comment: CHOL ESTEROL REFERENCE RANGE:20 YEARS AND OLDER CARDIOVASCULAR RISKLess than 200 mg/dl Low Ties467 to 239 mg/dl Borderline Sjca593 mg/dl and greater High Risk Performed By: #### 1 0070, 94381, 33488, 66503, 46765 ####[facility] [place] [address], [facility] Cholesterol to HDL Ratio 4.8 {ratio} High .0-4.5 [facility] Comment on above: Performed By: #### 1 0070, 10273, 31896, 77074, 97636 ####[facility] [place] [address], [facility] HDL Cholesterol 25 mg/dL Normal 23-92 [facility] Comment on above: Result Comment: Slig ht variation in normal range could be due to gender and/or age.HDL CHOLESTEROL REFERENCE RANGE:20 years and older Cardiovascular Risk> or =60 mg/dL Pvhprfdiz80 TO 59 mg/dL Low Risk<40 mg/dL High Risk Performed By: #### 1 0070, 37831, 32541, 57609, 76990 ####[facility] LDL Cholesterol 65 mg/dL Normal 0-130 [facility] Comment on above: Result Comment: LDL IS A CALCULATIONLDL IS ONLY VALID IF THE TRIG IS LESS THAN 400. Performed By: #### 1 0070, 45278, 02962, 08105, 47034 ####[facility] NON-HDL CHOLESTEROL 95 mg/dL Normal [facility] Comment on above: Performed By: #### 1 0070, 00728, 26024, 32671, 68349 ####[facility] Triglyceride 152 mg/dL High 40-149 [facility] Comment on above: Result Comment: TRIG LYCERIDE REFERENCE RANGE:20 YEARS AND OLDER CARDIOVASCULAR RISKLESS THAN 150 mg/dl LOW QTPR827 TO 199 mg/dl BORDERLINE HICF216 mg/dl AND GREATER HIGH RISK Performed By: #### 1 0070, 89656, 05143, 27880, 71277 ####[facility] VLDL CHOL 30 mg/dL Normal 0-40 [facility] Comment on above: Performed By: #### 1 0070, 00502, 50178, 71439, 07501 ####[facility] MAGNESIUM BLOODon 04-17-2017 Magnesium 1.9 mg/dL Normal 1.9-2.7 [facility] Comment on above: Order Comment: No: D o not add to previous draw Performed By: #### 1 0070, 49019, 93803, 01555, 53525 ####[facility] MRI BRAIN WO CONTRASTon 03-30 [facility] BRAIN [facility]AST [facility] Plremr[address] [place] [address] P atient Name: KRISHAN BURNHAM : 1965Sex: MAge: Race: WhiteMRN: [id number]. Location: [id number] Status: IVisit #: [id number] Date: 04/17/2017 8:50:00 AMCompleted Date: 04/17/2017 01:57 PMRequesting Provider: ANA ZEPEDA Attending Provider: ELIER LU Report Copy To: Signs & Symptoms: OtherHistory: Patient history not availableComments: R/O CVAExam: MRI BRAIN WO CONTRASTAccession #: [id number] ======MRI BRAIN WO CONTRAST 04/17/2017 1:58 PM [...] sinuses. Electronically signed by:Kev Guallpa. Transcribed by: [email or web address], User Resident: Electronically Signed by: KEV GUALLPA @ 04/17/2017 02:10 PM Normal [facility] Comment on above: Order Comment: R/O C VA PHOSPHORUS BLOODon 8 Phosphate 4.4 mg/dL Normal 2.5-5.0 [facility] Comment on above: Order Comment: No: D o not add to previous draw Performed By: #### 1 0070, 01010, 31521, 19364, 42583 ####[facility] PROTHROMBIN TIMEon 8 INR Coag RelTime (PPP) 1.11 {INR} Normal 0.91-1.16 Th [facility] Comment on above: Order Comment: No: [...] OF ACTION, CLINICALEFFECTIVENESS, AND OPTIMAL THERAPEUTIC RANGE. [id number];108:231S-246S. Performed By: #### 5 6101 ####[facility] [facility].[address] Prothrombin time (PT) Coag time (PPP) 14.4 s Normal 12.3-14.8 [facility] Comment on above: Order Comment: No: D o not add to previous draw Result Comment: ALL RESULTS MUST BE INTERPRETED WITH RESPECT TO BLOOD DRAWING ARTIFACTOR DILUTION ERROR OF ANTICOAGULANT AT THE TIME OF SAMPLING. Performed By: #### 5 6101 ####[facility] [facility].[address] TROPONIN-Ion 04-17-2017 Troponin I.cardiac mass conc 0.03 ng/mL Normal 0.00-0.04 [facility] Comment on above: Order Comment: No: D o not add to previous draw Result Comment: REFE RENCE RANGES: 0.00 - 0.04 ng/ml NORMAL 0.05 - 0.50 ng/ml INDETERMINATE > 0.50 ng/ml CONSISTENT WITH AN M.I. Performed By: #### 1 0070, 17343, 00973, 52584, 63958 ####[facility] [facility].[address] Testost Totalon 03-18-2017 Testoster Tot 412 ng/dL Normal [facility] Comment on above: Result Comment: MALE ELVIN [...] and 39 years old. ortiz Mares.al. JCEM 2017,102;1817-3347. PMID: [id number].Performed At: Lab[address] [id number] Vincent PhD Ph:[phone] Performed By: #### 2 [id number] ####[place] [address] [place] [address] Culture, urine Bacteria identified Cx Nom (U) Culture exhibits no growth. [facility] Work Phone: EP Panel Gastrointestinal pathogens panel GITA+probe (Stl) [facility] Work Phone: Vital Signs Date Time Vital Sign Value Performing Clinician Facility 11-25-2024 08:39-0400 Body height 180.34 cm [facility] 11-25-2024 08:39-0400 Body mass index (BMI) [Ratio] 33.3 kg/m2 [facility] 11-25-2024 08:39-0400 Body weight 108.4 kg [facility] 11-25-2024 08:39-0400 Diastolic blood pressure 77 mm[Hg] [facility] 11-25-2024 08:39-0400 Heart rate 66 /min [facility] 11-25-2024 08:39-0400 Respiratory rate 17 /min [facility] 11-25-2024 08:39-0400 SaO2% (BldA) [Mass fraction] 97 % [facility] 11-25-2024 08:39-0400 Systolic blood pressure 120 mm[Hg] [facility] 10-27-2024 17:20-0400 Body temperature 98.7 [degF] [facility] 10-27-2024 17:20-0400 Diastolic blood pressure 73 mm[Hg] [facility] 10-27-2024 17:20-0400 Heart rate 59 /min [facility] 10-27-2024 17:20-0400 Respiratory rate 16 /min [facility] 10-27-2024 17:20-0400 SaO2% (BldA) [Mass fraction] 100 % [facility] 10-27-2024 17:20-0400 Systolic blood pressure 100 mm[Hg] [facility] 10-27-2024 14:51-0400 Body height 180.34 cm [facility] 10-27-2024 14:51-0400 Body mass index (BMI) [Ratio] 33.3 kg/m2 [facility] 10-27-2024 14:51-0400 Body weight 108.5 kg [facility] 09-17-2024 14:56-0400 Body temperature 98.3 [degF] [facility] 09-17-2024 14:56-0400 Diastolic blood pressure 80 mm[Hg] [facility] 09-17-2024 14:56-0400 Heart rate 58 /min [facility] 09-17-2024 14:56-0400 Respiratory rate 14 /min [facility] 09-17-2024 14:56-0400 SaO2% (BldA) [Mass fraction] 94 % [facility] 09-17-2024 14:56-0400 Systolic blood pressure 136 mm[Hg] [facility] 09-17-2024 11:04-0400 Body height 180.34 cm [facility] 09-17-2024 11:04-0400 Body mass index (BMI) [Ratio] 33.9 kg/m2 [facility] 09-17-2024 11:04-0400 Body weight 110.3 kg [facility] 06-29-2024 22:45-0400 Diastolic Blood Pressure Non-Invasive 67 mm[Hg] CARMELA CORRALES DO [facility] 06-29-2024 22:45-0400 Heart rate 60 /min CARMELA CORRALES DO [facility] 06-29-2024 22:45-0400 Reason For Taking VItal Signs CARMELA CORRALES DO [facility] 06-29-2024 22:45-0400 Respiratory rate 18 /min CARMELA CORRALES DO [facility] 06-29-2024 22:45-0400 Systolic Blood Pressure Non-Invasive 127 mm[Hg] CARMELA CORRALES DO [facility] 06-29-2024 21:36-0400 Body temperature 97.88 [degF] CARMELA CORRALES DO [facility] 06-29-2024 21:36-0400 Body weight 108.6 kg CARMELA CORRALES DO [facility] 06-29-2024 21:36-0400 Diastolic Blood Pressure Non-Invasive 80 mm[Hg] CARMELA CORRALES DO [facility] 06-29-2024 21:36-0400 Heart rate 60 /min CARMELA CORRALES DO [facility] 06-29-2024 21:36-0400 Respiratory rate 16 /min CARMELA CORRALES DO [facility] 06-29-2024 21:36-0400 Systolic Blood Pressure Non-Invasive 144 mm[Hg] CARMELA CORRALES DO [facility] 06-01-2024 10:05-0400 Body temperature 97 [degF] Tila Reyes APRN.KEYPUNCH OPERATOR Work Phone: [facility] 06-01-2024 10:05-0400 Body weight 106 kg Tila Reyes APRN.KEYPUNCH OPERATOR Work Phone: [facility] 06-01-2024 10:05-0400 Diastolic blood pressure 77 mm[Hg] Tila Reyes APRN.KEYPUNCH OPERATOR Work Phone: [facility] 06-01-2024 10:05-0400 Heart rate 64 /min Tila Reyes APRN.KEYPUNCH OPERATOR Work Phone: [facility] 06-01-2024 10:05-0400 Respiratory rate 18 /min Tila Reyes APRN.KEYPUNCH OPERATOR Work Phone: [facility] 06-01-2024 10:05-0400 SaO2% (BldA) [Mass fraction] 99 % Tila Enrike OSBORNE.KEYPUNCH OPERATOR Work Phone: [facility] 06-01-2024 10:05-0400 Systolic blood pressure 143 mm[Hg] Tila Enrike OSBORNE.KEYPUNCH OPERATOR Work Phone: [facility] 04-26-2023 11:36-0500 Body height 180.34 cm [facility] 04-26-2023 11:36-0500 Body mass index (BMI) [Ratio] 32.6 kg/m2 [facility] 04-26-2023 11:36-0500 Body temperature 98.2 [degF] [facility] 04-26-2023 11:36-0500 Body weight 106.14 kg [facility] 04-26-2023 11:36-0500 Diastolic blood pressure 82 mm[Hg] [facility] 04-26-2023 11:36-0500 Heart rate 66 /min [facility] 04-26-2023 11:36-0500 Respiratory rate 16 /min [facility] 04-26-2023 11:36-0500 SaO2% (BldA) [Mass fraction] 96 % [facility] 04-26-2023 11:36-0500 Systolic blood pressure 148 mm[Hg] [facility] 03-20-2023 15:00-0500 Body temperature 97.7 [degF] [facility] 03-20-2023 15:00-0500 Diastolic blood pressure 71 mm[Hg] [facility] 03-20-2023 15:00-0500 Heart rate 54 /min [facility] 03-20-2023 15:00-0500 Respiratory rate 13 /min [facility] 03-20-2023 15:00-0500 SaO2% (BldA) [Mass fraction] 95 % [facility] 03-20-2023 15:00-0500 Systolic blood pressure 126 mm[Hg] [facility] 03-16-2023 21:54-0500 Body mass index (BMI) [Ratio] 32.8 kg/m2 [facility] 03-16-2023 21:54-0500 Body weight 107 kg [facility] 03-16-2023 21:00-0500 Diastolic blood pressure 80 mm[Hg] [facility] 03-16-2023 21:00-0500 Heart rate 74 /min [facility] 03-16-2023 21:00-0500 Respiratory rate 16 /min [facility] 03-16-2023 21:00-0500 SaO2% (BldA) [Mass fraction] 97 % [facility] 03-16-2023 21:00-0500 Systolic blood pressure 129 mm[Hg] [facility] 03-16-2023 16:42-0500 Body height 180.34 cm [facility] 03-16-2023 16:42-0500 Body mass index (BMI) [Ratio] 33.2 kg/m2 [facility] 03-16-2023 16:42-0500 Body temperature 96.4 [degF] [facility] 03-16-2023 16:42-0500 Body weight 107.95 kg [facility] 01-12-2023 14:32-0500 Body mass index (BMI) [Ratio] 33 kg/m2 [facility] 01-12-2023 14:32-0500 Body temperature 98.6 [degF] [facility] 01-12-2023 14:32-0500 Body weight 107.5 kg [facility] 01-12-2023 14:32-0500 Diastolic blood pressure 88 mm[Hg] [facility] 01-12-2023 14:32-0500 Heart rate 72 /min [facility] 01-12-2023 14:32-0500 Respiratory rate 16 /min [facility] 01-12-2023 14:32-0500 SaO2% (BldA) [Mass fraction] 97 % [facility] 01-12-2023 14:32-0500 Systolic blood pressure 138 mm[Hg] [facility] 01-12-2023 11:45-0500 Body mass index (BMI) [Ratio] 32.5 kg/m2 [facility] 01-12-2023 10:00-0500 Body temperature 98.2 [degF] [facility] 01-12-2023 10:00-0500 Diastolic blood pressure 74 mm[Hg] [facility] 01-12-2023 10:00-0500 Heart rate 71 /min [facility] 01-12-2023 10:00-0500 SaO2% (BldA) [Mass fraction] 96 % [facility] 01-12-2023 10:00-0500 Systolic blood pressure 146 mm[Hg] [facility] 01-12-2023 03:18-0500 Body weight 106 kg [facility] 01-10-2023 20:06-0500 Body temperature 98.6 [degF] NURSE MIDWIFE/CLINICAL INSTRUCTOR-C Kev Lugo NURSE MIDWIFE/CLINICAL INSTRUCTOR Work Phone: [facility] 01-10-2023 20:06-0500 Diastolic blood pressure 79 mm[Hg] NURSE MIDWIFE/CLINICAL INSTRUCTOR-C Kev Lugo NURSE MIDWIFE/CLINICAL INSTRUCTOR Work Phone: [facility] 01-10-2023 20:06-0500 Heart rate 63 /min NURSE MIDWIFE/CLINICAL INSTRUCTOR-C Kev Lugo NURSE MIDWIFE/CLINICAL INSTRUCTOR Work Phone: [facility] 01-10-2023 20:06-0500 Respiratory rate 12 /min NURSE MIDWIFE/CLINICAL INSTRUCTOR-C Kev Lugo NURSE MIDWIFE/CLINICAL INSTRUCTOR Work Phone: [facility] 01-10-2023 20:06-0500 SaO2% (BldA) [Mass fraction] 98 % NURSE MIDWIFE/CLINICAL INSTRUCTOR-C Kev Lugo NURSE MIDWIFE/CLINICAL INSTRUCTOR Work Phone: [facility] 01-10-2023 20:06-0500 Systolic blood pressure 139 mm[Hg] NURSE MIDWIFE/CLINICAL INSTRUCTOR-C Kev Lugo NURSE MIDWIFE/CLINICAL INSTRUCTOR Work Phone: [facility] 01-10-2023 17:58-0500 Body height 180.34 cm NURSE MIDWIFE/CLINICAL INSTRUCTOR-C Kev Lugo NURSE MIDWIFE/CLINICAL INSTRUCTOR Work Phone: [facility] 01-10-2023 17:58-0500 Body mass index (BMI) [Ratio] 32.8 kg/m2 NURSE MIDWIFE/CLINICAL INSTRUCTOR-C Kev Lugo NURSE MIDWIFE/CLINICAL INSTRUCTOR Work Phone: [facility] 01-10-2023 17:58-0500 Body weight 106.6 kg NURSE MIDWIFE/CLINICAL INSTRUCTOR-C Kev Lugo NURSE MIDWIFE/CLINICAL INSTRUCTOR Work Phone: [facility] 07-04-2022 10:23-0400 Body temperature 98 [degF] NURSE MIDWIFE/CLINICAL INSTRUCTOR-C Kev Lugo NURSE MIDWIFE/CLINICAL INSTRUCTOR Work Phone: [facility] 07-04-2022 10:23-0400 Diastolic blood pressure 55 mm[Hg] NURSE MIDWIFE/CLINICAL INSTRUCTOR-C Kev Lugo NURSE MIDWIFE/CLINICAL INSTRUCTOR Work Phone: [facility] 07-04-2022 10:23-0400 Heart rate 64 /min NURSE MIDWIFE/CLINICAL INSTRUCTOR-C Kev Lugo NURSE MIDWIFE/CLINICAL INSTRUCTOR Work Phone: [facility] 07-04-2022 10:23-0400 Respiratory rate 16 /min NURSE MIDWIFE/CLINICAL INSTRUCTOR-C Kev Lugo NURSE MIDWIFE/CLINICAL INSTRUCTOR Work Phone: [facility] 07-04-2022 10:23-0400 SaO2% (BldA) [Mass fraction] 96 % NURSE MIDWIFE/CLINICAL INSTRUCTOR-C Kev Lugo NURSE MIDWIFE/CLINICAL INSTRUCTOR Work Phone: [facility] 07-04-2022 10:23-0400 Systolic blood pressure 98 mm[Hg] NURSE MIDWIFE/CLINICAL INSTRUCTOR-C Kev Lugo NURSE MIDWIFE/CLINICAL INSTRUCTOR Work Phone: [facility] 07-04-2022 08:48-0400 Body height 180.34 cm NURSE MIDWIFE/CLINICAL INSTRUCTOR-C Kev Lugo NURSE MIDWIFE/CLINICAL INSTRUCTOR Work Phone: [facility] 07-04-2022 08:48-0400 Body mass index (BMI) [Ratio] 31.9 kg/m2 NURSE MIDWIFE/CLINICAL INSTRUCTOR-C Kev Lugo NURSE MIDWIFE/CLINICAL INSTRUCTOR Work Phone: [facility] 07-04-2022 08:48-0400 Body weight 103.87 kg NURSE MIDWIFE/CLINICAL INSTRUCTOR-C Kev Lugo NURSE MIDWIFE/CLINICAL INSTRUCTOR Work Phone: [facility] 06-17-2022 09:21-0400 Body height 180.34 cm NURSE MIDWIFE/CLINICAL INSTRUCTOR-C Kev Lugo NURSE MIDWIFE/CLINICAL INSTRUCTOR Work Phone: [facility] 06-17-2022 09:21-0400 Body mass index (BMI) [Ratio] 32.3 kg/m2 NURSE MIDWIFE/CLINICAL INSTRUCTOR-C Kev Linaresder NURSE MIDWIFE/CLINICAL INSTRUCTOR Work Phone: [facility] 06-17-2022 09:21-0400 Body weight 105.23 kg NURSE MIDWIFE/CLINICAL INSTRUCTOR-C Kev Linaresder NURSE MIDWIFE/CLINICAL INSTRUCTOR Work Phone: [facility] 06-17-2022 09:21-0400 Diastolic blood pressure 82 mm[Hg] NURSE MIDWIFE/CLINICAL INSTRUCTOR-C Kev Lugo NURSE MIDWIFE/CLINICAL INSTRUCTOR Work Phone: [facility] 06-17-2022 09:21-0400 Heart rate 63 /min NURSE MIDWIFE/CLINICAL INSTRUCTOR-C Kev Linaresder NURSE MIDWIFE/CLINICAL INSTRUCTOR Work Phone: [facility] 06-17-2022 09:21-0400 SaO2% (BldA) [Mass fraction] 96 % NURSE MIDWIFE/CLINICAL INSTRUCTOR-C Kev Linaresder NURSE MIDWIFE/CLINICAL INSTRUCTOR Work Phone: [facility] 06-17-2022 09:21-0400 Systolic blood pressure 128 mm[Hg] NURSE MIDWIFE/CLINICAL INSTRUCTOR-C Kev Linaresder NURSE MIDWIFE/CLINICAL INSTRUCTOR Work Phone: [facility] 05-26-2022 11:36-0400 Body height 180.34 cm [facility] 05-26-2022 11:36-0400 Body mass index (BMI) [Ratio] 32.4 kg/m2 [facility] 05-26-2022 11:36-0400 Body temperature 97.9 [degF] [facility] 05-26-2022 11:36-0400 Body weight 105.59 kg [facility] 05-26-2022 11:36-0400 Diastolic blood pressure 80 mm[Hg] [facility] 05-26-2022 11:36-0400 Heart rate 72 /min [facility] 05-26-2022 11:36-0400 Respiratory rate 20 /min [facility] 05-26-2022 11:36-0400 SaO2% (BldA) [Mass fraction] 96 % [facility] 05-26-2022 11:36-0400 Systolic blood pressure 122 mm[Hg] [facility] 03-24-2022 14:14-0500 Body temperature 98.2 [degF] NURSE MIDWIFE/CLINICAL INSTRUCTOR-C Kev Lugo NURSE MIDWIFE/CLINICAL INSTRUCTOR Work Phone: [facility] 03-24-2022 14:14-0500 Diastolic blood pressure 75 mm[Hg] NURSE MIDWIFE/CLINICAL INSTRUCTOR-C Kev Lugo NURSE MIDWIFE/CLINICAL INSTRUCTOR Work Phone: [facility] 03-24-2022 14:14-0500 Heart rate 74 /min NURSE MIDWIFE/CLINICAL INSTRUCTOR-C Kev Lugo NURSE MIDWIFE/CLINICAL INSTRUCTOR Work Phone: [facility] 03-24-2022 14:14-0500 Respiratory rate 16 /min NURSE MIDWIFE/CLINICAL INSTRUCTOR-C Kev Lugo NURSE MIDWIFE/CLINICAL INSTRUCTOR Work Phone: [facility] 03-24-2022 14:14-0500 SaO2% (BldA) [Mass fraction] 99 % NURSE MIDWIFE/CLINICAL INSTRUCTOR-C Kev Lugo NURSE MIDWIFE/CLINICAL INSTRUCTOR Work Phone: [facility] 03-24-2022 14:14-0500 Systolic blood pressure 119 mm[Hg] NURSE MIDWIFE/CLINICAL INSTRUCTOR-C Kev Lugo NURSE MIDWIFE/CLINICAL INSTRUCTOR Work Phone: [facility] 03-24-2022 09:18-0500 Body height 180.34 cm NURSE MIDWIFE/CLINICAL INSTRUCTOR-C Kev Lugo NURSE MIDWIFE/CLINICAL INSTRUCTOR Work Phone: [facility] 03-24-2022 09:18-0500 Body mass index (BMI) [Ratio] 32.5 kg/m2 NURSE MIDWIFE/CLINICAL INSTRUCTOR-C Kev Lugo NURSE MIDWIFE/CLINICAL INSTRUCTOR Work Phone: [facility] 03-24-2022 09:18-0500 Body weight 106 kg NURSE MIDWIFE/CLINICAL INSTRUCTOR-C Kev Lugo NURSE MIDWIFE/CLINICAL INSTRUCTOR Work Phone: [facility] 01-14-2022 18:31-0500 Diastolic blood pressure 73 mm[Hg] NURSE MIDWIFE/CLINICAL INSTRUCTOR-C Kev Lugo NURSE MIDWIFE/CLINICAL INSTRUCTOR Work Phone: [facility] 01-14-2022 18:31-0500 Heart rate 88 /min NURSE MIDWIFE/CLINICAL INSTRUCTOR-C Kev Lugo NURSE MIDWIFE/CLINICAL INSTRUCTOR Work Phone: [facility] 01-14-2022 18:31-0500 Respiratory rate 15 /min NURSE MIDWIFE/CLINICAL INSTRUCTOR-C Kev Lugo NURSE MIDWIFE/CLINICAL INSTRUCTOR Work Phone: [facility] 01-14-2022 18:31-0500 SaO2% (BldA) [Mass fraction] 99 % NURSE MIDWIFE/CLINICAL INSTRUCTOR-C Kev Lugo NURSE MIDWIFE/CLINICAL INSTRUCTOR Work Phone: [facility] 01-14-2022 18:31-0500 Systolic blood pressure 126 mm[Hg] NURSE MIDWIFE/CLINICAL INSTRUCTOR-C Kev Lugo NURSE MIDWIFE/CLINICAL INSTRUCTOR Work Phone: [facility] 01-14-2022 14:28-0500 Body height 180.34 cm NURSE MIDWIFE/CLINICAL INSTRUCTOR-C Kev Lugo NURSE MIDWIFE/CLINICAL INSTRUCTOR Work Phone: [facility] Work Phone: 01-14-2022 14:28-0500 Body mass index (BMI) [Ratio] 31.5 kg/m2 NURSE MIDWIFE/CLINICAL INSTRUCTOR-C Kev Lugo NURSE MIDWIFE/CLINICAL INSTRUCTOR Work Phone: [facility] 01-14-2022 14:28-0500 Body temperature 97.1 [degF] NURSE MIDWIFE/CLINICAL INSTRUCTOR-C Kev Lugo NURSE MIDWIFE/CLINICAL INSTRUCTOR Work Phone: [facility] 01-14-2022 14:28-0500 Body weight 102.6 kg NURSE MIDWIFE/CLINICAL INSTRUCTOR-C Kev Lugo NURSE MIDWIFE/CLINICAL INSTRUCTOR Work Phone: [facility] 12-02-2021 09:25-0400 Body temperature 97.8 [degF] NURSE MIDWIFE/CLINICAL INSTRUCTOR-C Kev Lugo NURSE MIDWIFE/CLINICAL INSTRUCTOR Work Phone: [facility] 12-02-2021 09:25-0400 Diastolic blood pressure 74 mm[Hg] NURSE MIDWIFE/CLINICAL INSTRUCTOR-C Kev Lugo NURSE MIDWIFE/CLINICAL INSTRUCTOR Work Phone: [facility] 12-02-2021 09:25-0400 Heart rate 67 /min NURSE MIDWIFE/CLINICAL INSTRUCTOR-C Kev Lugo NURSE MIDWIFE/CLINICAL INSTRUCTOR Work Phone: [facility] 12-02-2021 09:25-0400 Respiratory rate 14 /min NURSE MIDWIFE/CLINICAL INSTRUCTOR-C Kev Lugo NURSE MIDWIFE/CLINICAL INSTRUCTOR Work Phone: [facility] 12-02-2021 09:25-0400 SaO2% (BldA) [Mass fraction] 96 % NURSE MIDWIFE/CLINICAL INSTRUCTOR-C Kev Lugo NURSE MIDWIFE/CLINICAL INSTRUCTOR Work Phone: [facility] 12-02-2021 09:25-0400 Systolic blood pressure 118 mm[Hg] NURSE MIDWIFE/CLINICAL INSTRUCTOR-C Kev Lugo NURSE MIDWIFE/CLINICAL INSTRUCTOR Work Phone: [facility] 12-02-2021 05:07-0400 Body weight 100.3 kg NURSE MIDWIFE/CLINICAL INSTRUCTOR-C Kev Lugo NURSE MIDWIFE/CLINICAL INSTRUCTOR Work Phone: [facility] 12-01-2021 22:17-0400 Body mass index (BMI) [Ratio] 31.1 kg/m2 NURSE MIDWIFE/CLINICAL INSTRUCTOR-C Kev Lugo NURSE MIDWIFE/CLINICAL INSTRUCTOR Work Phone: [facility] 12-01-2021 11:32-0400 Body height 180.34 cm NURSE MIDWIFE/CLINICAL INSTRUCTOR-C Kev Lugo NURSE MIDWIFE/CLINICAL INSTRUCTOR Work Phone: [facility] Work Phone: 11-30-2021 17:03-0400 Body temperature 97.9 [degF] NURSE MIDWIFE/CLINICAL INSTRUCTOR-C Kev Lugo NURSE MIDWIFE/CLINICAL INSTRUCTOR Work Phone: [facility] Work Phone: 11-30-2021 17:03-0400 Heart rate 69 /min NURSE MIDWIFE/CLINICAL INSTRUCTOR-C Kev Lugo NURSE MIDWIFE/CLINICAL INSTRUCTOR Work Phone: [facility] Work Phone: 11-30-2021 17:03-0400 Respiratory rate 14 /min NURSE MIDWIFE/CLINICAL INSTRUCTOR-C Kev Lugo NURSE MIDWIFE/CLINICAL INSTRUCTOR Work Phone: [facility] Work Phone: 11-30-2021 17:03-0400 SaO2% (BldA) [Mass fraction] 96 % NURSE MIDWIFE/CLINICAL INSTRUCTOR-C Kev Lugo NURSE MIDWIFE/CLINICAL INSTRUCTOR Work Phone: [facility] Work Phone: 11-30-2021 17:01-0400 Diastolic blood pressure 85 mm[Hg] NURSE MIDWIFE/CLINICAL INSTRUCTOR-C Kev Lugo NURSE MIDWIFE/CLINICAL INSTRUCTOR Work Phone: [facility] Work Phone: 11-30-2021 17:01-0400 Systolic blood pressure 133 mm[Hg] NURSE MIDWIFE/CLINICAL INSTRUCTOR-C Kev Lugo NURSE MIDWIFE/CLINICAL INSTRUCTOR Work Phone: [facility] Work Phone: 11-30-2021 15:55-0400 Body height 180.34 cm NURSE MIDWIFE/CLINICAL INSTRUCTOR-C Kev Lugo NURSE MIDWIFE/CLINICAL INSTRUCTOR Work Phone: [facility] Work Phone: 11-30-2021 15:55-0400 Body mass index (BMI) [Ratio] 29.3 kg/m2 NURSE MIDWIFE/CLINICAL INSTRUCTOR-C Kev Lugo NURSE MIDWIFE/CLINICAL INSTRUCTOR Work Phone: [facility] Work Phone: 11-30-2021 15:55-0400 Body weight 95.5 kg NURSE MIDWIFE/CLINICAL INSTRUCTOR-C Kev Lugo NURSE MIDWIFE/CLINICAL INSTRUCTOR Work Phone: [facility] Work Phone: 11-30-2021 10:08-0400 Body temperature 98.1 [degF] NURSE MIDWIFE/CLINICAL INSTRUCTOR-C Kev Lugo NURSE MIDWIFE/CLINICAL INSTRUCTOR Work Phone: [facility] 11-30-2021 10:08-0400 Body weight 102.22 kg NURSE MIDWIFE/CLINICAL INSTRUCTOR-C Kev Lugo NURSE MIDWIFE/CLINICAL INSTRUCTOR Work Phone: [facility] 11-30-2021 10:08-0400 Diastolic blood pressure 84 mm[Hg] NURSE MIDWIFE/CLINICAL INSTRUCTOR-C Kev Lugo NURSE MIDWIFE/CLINICAL INSTRUCTOR Work Phone: [facility] 11-30-2021 10:08-0400 Heart rate 72 /min NURSE MIDWIFE/CLINICAL INSTRUCTOR-C Kev Lugo NURSE MIDWIFE/CLINICAL INSTRUCTOR Work Phone: [facility] 11-30-2021 10:08-0400 Respiratory rate 16 /min NURSE MIDWIFE/CLINICAL INSTRUCTOR-C Kev Lugo NURSE MIDWIFE/CLINICAL INSTRUCTOR Work Phone: [facility] 11-30-2021 10:08-0400 SaO2% (BldA) [Mass fraction] 97 % NURSE MIDWIFE/CLINICAL INSTRUCTOR-C Kev Lugo NURSE MIDWIFE/CLINICAL INSTRUCTOR Work Phone: [facility] 11-30-2021 10:08-0400 Systolic blood pressure 138 mm[Hg] NURSE MIDWIFE/CLINICAL INSTRUCTOR-C Kev Lugo NURSE MIDWIFE/CLINICAL INSTRUCTOR Work Phone: [facility] 09-20-2021 10:29-0400 Body height 180.[address] Di Walden Work Phone: [facility] Work Phone: 09-20-2021 10:29-0400 Body mass index (BMI) [Ratio] 31.6 kg/m2 Dr. Di Walden Work Phone: [facility] Work Phone: 09-20-2021 10:29-0400 Body temperature 98 [degF] Dr. Di Walden Work Phone: [facility] Work Phone: 09-20-2021 10:29-0400 Body weight 102.[address] Di Walden Work Phone: [facility] Work Phone: 09-20-2021 10:29-0400 Diastolic blood pressure 82 mm[Hg] Dr. Di Walden Work Phone: [facility] Work Phone: 09-20-2021 10:29-0400 Heart rate 68 /min Dr. Di Walden Work Phone: [facility] Work Phone: 09-20-2021 10:29-0400 Respiratory rate 16 /min Dr. Di Walden Work Phone: [facility] Work Phone: 09-20-2021 10:29-0400 SaO2% (BldA) [Mass fraction] 97 % Dr. Di Walden Work Phone: [facility] Work Phone: 09-20-2021 10:29-0400 Systolic blood pressure 128 mm[Hg] Dr. Di Walden Work Phone: [facility] Work Phone: 08-04-2021 19:32-0400 Diastolic blood pressure 82 mm[Hg] Dr. Di Walden Work Phone: [facility] Work Phone: 08-04-2021 19:32-0400 Heart rate 75 /min Dr. Di Walden Work Phone: [facility] Work Phone: 08-04-2021 19:32-0400 Respiratory rate 18 /min Dr. Di Walden Work Phone: [facility] Work Phone: 08-04-2021 19:32-0400 SaO2% (BldA) [Mass fraction] 97 % Dr. Di Walden Work Phone: [facility] Work Phone: 08-04-2021 19:32-0400 Systolic blood pressure 140 mm[Hg] Dr. Di Walden Work Phone: [facility] Work Phone: 08-04-2021 16:12-0400 Body height 180.[address] Di Walden Work Phone: [facility] Work Phone: 08-04-2021 16:12-0400 Body mass index (BMI) [Ratio] 33.9 kg/m2 Dr. Di Walden Work Phone: [facility] Work Phone: 08-04-2021 16:12-0400 Body temperature 98.8 [degF] Dr. Di Walden Work Phone: [facility] Work Phone: 08-04-2021 16:12-0400 Body weight 110.[address] Di Walden Work Phone: [facility] Work Phone: 07-08-2021 10:15-0400 Body mass index (BMI) [Ratio] 34.9 kg/m2 Dr. Di Walden Work Phone: [facility] Work Phone: 07-08-2021 10:15-0400 Body temperature 98.4 [degF] Dr. Di Walden Work Phone: [facility] Work Phone: 07-08-2021 10:15-0400 Body weight 113.[address] Di Walden Work Phone: [facility] Work Phone: 07-08-2021 10:15-0400 Diastolic blood pressure 68 mm[Hg] Dr. Di Walden Work Phone: [facility] Work Phone: 07-08-2021 10:15-0400 Heart rate 84 /min Dr. Di Walden Work Phone: [facility] Work Phone: 07-08-2021 10:15-0400 Respiratory rate 14 /min Dr. Di Walden Work Phone: [facility] Work Phone: 07-08-2021 10:15-0400 SaO2% (BldA) [Mass fraction] 97 % Dr. Di Walden Work Phone: [facility] Work Phone: 07-08-2021 10:15-0400 Systolic blood pressure 122 mm[Hg] Dr. Di Walden Work Phone: [facility] Work Phone: 07-08-2021 10:15-0400 Body height 180.[address] Di Walden Work Phone: [facility] Work Phone: 07-08-2021 10:15-0400 Body mass index (BMI) [Ratio] 34.9 kg/m2 Dr. Di Walden Work Phone: [facility] Work Phone: 07-08-2021 10:15-0400 Body temperature 98.4 [degF] Dr. Di Walden Work Phone: [facility] Work Phone: 07-08-2021 10:15-0400 Body weight 113.[address] Di Walden Work Phone: [facility] Work Phone: 07-08-2021 10:15-0400 Diastolic blood pressure 68 mm[Hg] Dr. Di Walden Work Phone: [facility] Work Phone: 07-08-2021 10:15-0400 Heart rate 84 /min Dr. Di Walden Work Phone: [facility] Work Phone: 07-08-2021 10:15-0400 Respiratory rate 14 /min Dr. Di Walden Work Phone: [facility] Work Phone: 07-08-2021 10:15-0400 SaO2% (BldA) [Mass fraction] 97 % Dr. Di Walden Work Phone: [facility] Work Phone: 07-08-2021 10:15-0400 Systolic blood pressure 122 mm[Hg] Dr. Di Walden Work Phone: [facility] Work Phone: 03-19-2021 08:22-0500 Body mass index (BMI) [Ratio] 0.4 kg/m2 Dr. Di Walden Work Phone: [facility] Work Phone: 03-19-2021 08:22-0500 Body temperature 98.2 [degF] Dr. Di Walden Work Phone: [facility] Work Phone: 03-19-2021 08:22-0500 Body weight 113.[address] iD Walden Work Phone: [facility] Work Phone: 03-19-2021 08:22-0500 Diastolic blood pressure 86 mm[Hg] Dr. Di Walden Work Phone: [facility] Work Phone: 03-19-2021 08:22-0500 Heart rate 75 /min Dr. Di Walden Work Phone: [facility] Work Phone: 03-19-2021 08:22-0500 Respiratory rate 14 /min Dr. Di Walden Work Phone: [facility] Work Phone: 03-19-2021 08:22-0500 SaO2% (BldA) [Mass fraction] 97 % Dr. Di Walden Work Phone: [facility] Work Phone: 03-19-2021 08:22-0500 Systolic blood pressure 128 mm[Hg] Dr. Di Walden Work Phone: [facility] Work Phone: 08-12-2019 16:44-0400 BMI (Body Mass Index) 32.65 kg/m2 Panchito Delatorre YL-Zddavia-Wpxduuk Work Phone: 08-12-2019 16:44-0400 Body Temperature 97.9 [degF] Panchitoangela Delatorre TK-Gmahfbg-Sb hland Work Phone: 08-12-2019 16:44-0400 Body weight 106.17 kg Panchitorani Delatorre ET-Jvvdesg-Wur land Work Phone: 08-12-2019 16:44-0400 BP Diastolic 82 mm[Hg] Panchito Delatorre EZ-Vylqshw-Nsz land Work Phone: 08-12-2019 16:44-0400 BP Systolic 136 mm[Hg] Panchito Tavallaee UC-Jzylndq-Dby land Work Phone: 08-12-2019 16:44-0400 BSA (Body Surface Area) 2.25 m2 Panchito Tavallaee EU-Wfneolp-Yfhjgjm Work Phone: 08-12-2019 16:44-0400 Height 180.34 cm Panchito Tavallaee AG-Xmcgbmt-Caq land Work Phone: 08-12-2019 16:44-0400 Pulse (Heart Rate) 82 /min Panchito Tavallaee MP-[facility]- [place] Work Phone: 08-12-2019 16:44-0400 Pulse Oximetry 96 % Panchito Tavallaee GJ-Hehnolu-Dtk land Work Phone: 08-12-2019 16:44-0400 Respiratory Rate 16 /min Panchito Tavallaee MF-Ogrhldv-Oz hland Work Phone: 08-12-2019 11:26-0400 BMI (Body Mass Index) 33.05 kg/m2 Panchito Tavallaee KY-Sfqztoe-Tixcltb Work Phone: 08-12-2019 11:26-0400 Body weight 107.5 kg Panchito Tavallaee UU-Gucotkh-Iba land Work Phone: 08-12-2019 11:26-0400 BP Diastolic 62 mm[Hg] Panchito Tavallaee OA-Szcrwyv-Mlf land Work Phone: 08-12-2019 11:26-0400 BP Systolic 154 mm[Hg] Panchito Tavallaee BF-Npibqab-Gat land Work Phone: 08-12-2019 11:26-0400 BSA (Body Surface Area) 2.27 m2 Panchito Tavallaee EV-Egoihor-Mdcgvzk Work Phone: 08-12-2019 11:26-0400 Height 180.34 cm Panchito Tavallaee ZS-Brqdxar-Wsi land Work Phone: 08-12-2019 11:26-0400 Pulse (Heart Rate) 115 /min Panchito Delatorre -[facility] [place] Work Phone: 04-26-2019 12:10-0500 BMI (Body Mass Index) 35.98 kg/m2 Thuy Hannah [facility] Work Phone: 04-26-2019 12:10-0500 Body weight 117.03 kg Thuy Delgadokins [facility] Work Phone: 04-26-2019 12:10-0500 BP Diastolic 84 mm[Hg] Thuy Delgadokins [facility] Work Phone: 04-26-2019 12:10-0500 BP Systolic 136 mm[Hg] Thuy Hannah [facility] Work Phone: 04-26-2019 12:10-0500 BSA (Body Surface Area) 2.35 m2 Thuy Delgadokins [facility] Work Phone: 04-26-2019 12:10-0500 Height 180.34 cm Thuy Delgadokins [facility] Work Phone: 04-26-2019 12:10-0500 Pulse (Heart Rate) 76 /min Thuy Hannah [facility] Work Phone: 07-04-2018 11:50-0400 BP Diastolic 68 mm[Hg] [facility] 07-04-2018 11:50-0400 BP Systolic 102 mm[Hg] [facility] 07-04-2018 11:50-0400 Pulse (Heart Rate) 57 /min [facility] 07-04-2018 11:50-0400 Pulse Oximetry 95 % [facility] 07-04-2018 09:50-0400 Respiratory Rate 18 /min [facility] 07-04-2018 07:26-0400 BMI (Body Mass Index) 33.91 kg/m2 [facility] 07-04-2018 07:26-0400 Height 182.9 cm [facility] 07-04-2018 07:26-0400 Weight 113.4 kg Josias Singh [facility] 07-04-2018 07:20-0400 Body Temperature 97.9 [degF] Josias Singh [facility] 02-01-2017 15:11-0500 BP Diastolic 77 mm[Hg] Nivia Cazares [facility] Work Phone: 02-01-2017 15:11-0500 BP Systolic 133 mm[Hg] Nivia Cazares [facility] Work Phone: 02-01-2017 15:11-0500 Pulse (Heart Rate) 66 /min Nivia Cazares [facility] Work Phone: 02-01-2017 15:09-0500 BMI (Body Mass Index) 35.55 kg/m2 Nivia Cazares [facility] Work Phone: 02-01-2017 15:09-0500 Height 180.3 cm Nivia Cazares [facility] Work Phone: 02-01-2017 15:09-0500 Respiratory Rate 16 /min Nivia Cazares [facility] Work Phone: 02-01-2017 15:09-0500 Weight 115.62 kg [facility]: Encounters Encounter Date Encounter Type Care Provider Facility Start: 12-10-2024 ambulatory [facility] Facility:[facility] Start: 11-25-2024 End: 11-25-[address] Jay Chavez [facility] Work Phone: Start: 11-25-2024 End: 11-25-2024 ambulatory [facility] Start: 10-27-2024 End: 10-27-2024 [facility] Start: 09-17-2024 End: 09-17-2024 [facility] Start: 06-29-2024 End: 06-30-2024 Emergency department patient visit CARMELA CORRALES DO [facility] Start: 06-01-2024 End: 06-01-2024 ambulatory JOSE MARIA FERRARA JIGNESHMelissa Facility:[facility] Start: 06-01-2024 End: 06-01-2024 Patient encounter procedure Tila Reyes APRN.KEYPUNCH OPERATOR Work Phone: [facility] Comment on above: Rhinosinusitis (Prim bar Dx) Start: 12-11-2023 ambulatory [facility] Facility:[facility] Start: 04-26-2023 End: 04-26-2023 ambulatory [facility] Work Phone: Start: 04-26-2023 End: 04-26-2023 Patient encounter procedure [facility]Laboratory, Specimen Work Phone: Start: 04-26-2023 End: 04-26-2023 Patient encounter procedure [facility] Work Phone: Start: 03-20-2023 Non-patient / Non-visit [facility] Start: 03-19-2023 Non-patient / Non-visit [facility] Start: 03-19-2023 Non-patient / Non-visit [facility] Work Phone: Start: 03-18-2023 Non-patient / Non-visit [facility] Start: 03-18-2023 Non-patient / Non-visit [facility] Work Phone: Start: 03-17-2023 End: 03-20-2023 Evaluation and management of inpatient [facility] Work Phone: Start: 03-17-2023 Non-patient / Non-visit [facility] Start: 03-16-2023 End: 03-16-2023 Non-patient / Non-visit [facility] Work Phone: Start: 03-16-2023 Evaluation and management of inpatient [facility] Work Phone: Start: 03-16-2023 Non-patient / Non-visit [facility] Work Phone: Start: 03-16-2023 observation encounter [facility] Work Phone: Start: 01-12-2023 End: 01-12-2023 Patient encounter procedure [facility] Work Phone: Start: 01-12-2023 Non-patient / Non-visit [facility] Work Phone: Start: 01-11-2023 Non-patient / Non-visit [facility] Start: 01-11-2023 Non-patient / Non-visit [facility] Work Phone: Start: 01-10-2023 End: 01-12-2023 Evaluation and management of inpatient NURSE MIDWIFE/CLINICAL INSTRUCTOR-C Kev Lugo NURSE MIDWIFE/CLINICAL INSTRUCTOR Work Phone: [facility]Int[facility] Unit Work Phone: Start: 10-18-2022 End: 10-18-2022 Discharged Recurring NURSE MIDWIFE/CLINICAL INSTRUCTOR-C Kev Lugo NURSE MIDWIFE/CLINICAL INSTRUCTOR Work Phone: [facility]-Physical Therapy Work Phone: Start: 09-16-2022 End: 09-16-2022 Patient encounter procedure NURSE MIDWIFE/CLINICAL INSTRUCTOR-C Kev Lugo NURSE MIDWIFE/CLINICAL INSTRUCTOR Work Phone: [facility] Work Phone: Start: 08-11-2022 End: 11-25-2022 Physical therapy management JAKE MCMAHON MD [facility] Start: 07-04-2022 Non-patient / Non-visit NURSE MIDWIFE/CLINICAL INSTRUCTOR-C Gisela adame Lugo NURSE MIDWIFE/CLINICAL INSTRUCTOR Work Phone: [facility] Start: 07-04-2022 End: 07-04-2022 Admission to same day surgery center NURSE MIDWIFE/CLINICAL INSTRUCTOR-C Kev Lugo NURSE MIDWIFE/CLINICAL INSTRUCTOR Work Phone: [facility]-Endoscopy Start: 07-04-2022 End: 07-04-2022 ambulatory NURSE MIDWIFE/CLINICAL INSTRUCTOR-C Kev Lugo NURSE MIDWIFE/CLINICAL INSTRUCTOR Work Phone: [facility] Work Phone: Start: 06-18-2022 End: 06-18-2022 ambulatory NURSE MIDWIFE/CLINICAL INSTRUCTOR-C Kev Lugo NURSE MIDWIFE/CLINICAL INSTRUCTOR Work Phone: [facility] Work Phone: Start: 06-18-2022 End: 06-18-2022 Patient encounter procedure NURSE MIDWIFE/CLINICAL INSTRUCTOR-C Kev Lugo NURSE MIDWIFE/CLINICAL INSTRUCTOR Work Phone: [facility]Laboratory, Specimen Start: 06-17-2022 End: 06-17-2022 ambulatory NURSE MIDWIFE/CLINICAL INSTRUCTOR-C Kev Lugo NURSE MIDWIFE/CLINICAL INSTRUCTOR Work Phone: [facility] Work Phone: Start: 06-17-2022 End: 06-17-2022 Patient encounter procedure NURSE MIDWIFE/CLINICAL INSTRUCTOR-C Kev Lugo NURSE MIDWIFE/CLINICAL INSTRUCTOR Work Phone: [facility]Laboratory Start: 05-26-2022 End: 05-26-2022 Emergency department patient visit [facility] Start: 03-24-2022 End: 03-24-2022 Emergency department patient visit NURSE MIDWIFE/CLINICAL INSTRUCTOR-C Kev Lugo NURSE MIDWIFE/CLINICAL INSTRUCTOR Work Phone: [facility]Emergency Department Start: 01-31-2022 End: 01-31-2022 ambulatory NURSE MIDWIFE/CLINICAL INSTRUCTOR-C Kev Lugo NURSE MIDWIFE/CLINICAL INSTRUCTOR Work Phone: [facility] Work Phone: Start: 01-31-2022 End: 01-31-2022 Patient encounter procedure NURSE MIDWIFE/CLINICAL INSTRUCTOR-C Kev Lugo NURSE MIDWIFE/CLINICAL INSTRUCTOR Work Phone: [facility] Start: 01-14-2022 End: 01-14-2022 Emergency department patient visit NURSE MIDWIFE/CLINICAL INSTRUCTOR-C Kev Lugo NURSE MIDWIFE/CLINICAL INSTRUCTOR Work Phone: [facility]Emergency Department Start: 01-13-2022 End: 01-13-2022 Patient encounter procedure NURSE MIDWIFE/CLINICAL INSTRUCTOR-C Kev Lugo NURSE MIDWIFE/CLINICAL INSTRUCTOR Work Phone: [facility] Start: 01-05-2022 End: 01-05-2022 ambulatory NURSE MIDWIFE/CLINICAL INSTRUCTOR-C Kev Lugo NURSE MIDWIFE/CLINICAL INSTRUCTOR Work Phone: [facility] Work Phone: Start: 01-05-2022 End: 01-05-2022 Patient encounter procedure NURSE MIDWIFE/CLINICAL INSTRUCTOR-C Kev Lugo NURSE MIDWIFE/CLINICAL INSTRUCTOR Work Phone: [facility] Start: 12-08-2021 Registered Referred NURSE MIDWIFE/CLINICAL INSTRUCTOR-C Kev Lugo NURSE MIDWIFE/CLINICAL INSTRUCTOR Work Phone: [facility]Cardi[facility] Services Start: 12-08-2021 Non-patient / Non-visit NURSE MIDWIFE/CLINICAL INSTRUCTOR-C M wendi Lugo NURSE MIDWIFE/CLINICAL INSTRUCTOR Work Phone: [facility] Start: 12-02-2021 Non-patient / Non-visit NURSE MIDWIFE/CLINICAL INSTRUCTOR-C M wendi Lugo NURSE MIDWIFE/CLINICAL INSTRUCTOR Work Phone: [facility] Start: 12-01-2021 Non-patient / Non-visit NURSE MIDWIFE/CLINICAL INSTRUCTOR-C M wendi Lugo NURSE MIDWIFE/CLINICAL INSTRUCTOR Work Phone: [facility] Start: 12-01-2021 Non-patient / Non-visit NURSE MIDWIFE/CLINICAL INSTRUCTOR-C M wendi Lugo NURSE MIDWIFE/CLINICAL INSTRUCTOR Work Phone: [facility] Start: 12-01-2021 Non-patient / Non-visit NURSE MIDWIFE/CLINICAL INSTRUCTOR-C M wendi Linaresder NURSE MIDWIFE/CLINICAL INSTRUCTOR Work Phone: [facility] Start: 11-30-2021 End: 12-02-2021 Evaluation and management of inpatient NURSE MIDWIFE/CLINICAL INSTRUCTOR-C Kev Lugo NURSE MIDWIFE/CLINICAL INSTRUCTOR Work Phone: [facility]Intensive Care Unit Start: 11-30-2021 End: 11-30-2021 ambulatory NURSE MIDWIFE/CLINICAL INSTRUCTOR-C Kev Lugo NURSE MIDWIFE/CLINICAL INSTRUCTOR Work Phone: [facility] Work Phone: Start: 11-30-2021 End: 11-30-2021 Patient encounter procedure NURSE MIDWIFE/CLINICAL INSTRUCTOR-Dimas Lugo NURSE MIDWIFE/CLINICAL INSTRUCTOR Work Phone: [facility] Start: 09-20-2021 End: 09-20-2021 Encounter for other preprocedural examination Dr. Di Walden Work Phone: [facility] Start: 09-20-2021 End: 09-20-[address] Di Walden Work Phone: [facility] Start: 08-04-2021 End: 08-04-2021 Emergency department patient visit Dr. Di Walden Work Phone: [facility]Emergency Department Start: 07-13-2021 End: 07-13-[address] Di Walden Work Phone: [facility] Start: 07-09-2021 End: 07-09-[address] Di Walden Work Phone: [facility] [place] Start: 07-08-2021 Non-patient / Non-visit Dr. Kalani Walden Work Phone: [facility] Start: 07-08-2021 End: 07-08-[address] Di Walden Work Phone: [facility]Cardi[facility] Start: 07-08-2021 End: 07-08-[address] Di Walden Work Phone: [facility] Start: 03-19-2021 End: 03-19-[address] Di Walden Work Phone: [facility] [place] Start: 09-25-2020 Chart Update Thuy Hannah Work Phone: [facility] Internal Medicine Work Phone: Start: 09-23-2020 Phys/qhp telephone evaluation 11-20 min Thuy Hannah Work Phone: [facility] Work Phone: Start: 09-10-2020 Office outpatient vi sit 15 minutes Thuy Hannah Work Phone: [facility] Work Phone: Start: 05-13-2020 End: 05-13-2020 Orders Only Mehnaz Vallejo Dee Work Phone: [facility] Start: 08-12-2019 Patient encounter procedure Panchito Tavallaee LU-Mhvviuw-Rkbshyy Work Phone: Start: 07-30-2019 Patient encounter procedure Panchito Tavallaee YY-Ccysbbi-Emhpwss Work Phone: Start: 07-08-2019 Patient encounter procedure Panchito Tavallaee HE-Nzvrudn-Lafbzus Work Phone: Start: 06-10-2019 Patient encounter procedure Panchito Tavallaee BZ-Egavabs-Zjrbbbx Work Phone: Start: 05-21-2019 Patient encounter procedure Thuy Hannah [facility] Work Phone: Start: 04-26-2019 Patient encounter procedure Thuy Delgadokins [facility] Work Phone: Start: 08-14-2018 End: 08-17-2018 Patient encounter procedure STEVE BARRIOS [facility] Start: 07-04-2018 End: 07-04-2018 Patient encounter procedure JOSIAS REYNOLDS [facility] Start: 07-04-2018 End: 07-04-2018 Patient encounter procedure Josias Reynolds [facility] Work Phone: [facility] Start: 06-28-2018 End: 06-29-2018 Patient encounter procedure KENDELL S VIGESAA [facility] Start: 02-10-2018 End: 02-10-2018 Emergency department patient visit Fernando KRobert Beaulieu Facility:[facility] Start: 12-29-2017 End: 01-01-2018 Patient encounter procedure STEVE [facility] Start: 12-09-2017 End: 12-09-2017 Emergency department patient visit [facility] Start: 09-21-2017 End: 09-21-2017 Patient encounter Mariam Roberts Mariscal Facility:[facility] angela Urology [facility] Start: 07-27-2017 End: 07-28-2017 Patient encounter Laci Higgins Nara Facility:[facility] Start: 06-05-2017 End: 06-06-2017 Patient encounter Mariam Mariscal Facility:[facility] angela Urology [facility] Start: 04-19-2017 End: 04-19-2017 Patient encounter MANGO ESPINAL Facility:[facility] Internal Medicine Start: 04-17-2017 End: 04-18-2017 Evaluation and management of inpatient PROVIDER UNKNOWN Facility:[facility] Start: 04-13-2017 End: 04-13-2017 Patient encounter MANGO ESPINAL Facility:[facility] Internal [facility] Start: 04-05-2017 Patient encounter procedure Alejandra Xavikeyla Oscarcb Facility:[facility] Start: 03-17-2017 End: 03-18-2017 Patient encounter MANGO ESPINAL Facility:[facility] Start: 03-08-2017 End: 03-09-2017 Patient encounter MANGO ESPINAL Facility:[facility] Internal Medicine Start: 02-01-2017 End: 02-01-2017 Ambulatory LISA Ambulato ry Start: 02-01-2017 Office outpatient ne w 30 minutes Lisa Henningy Work Phone: [facility] Start: 01-30-2017 [facility] Start: 12-19-2016 End: 12-20-2016 Ambulatory DEFAULT PHYSICIAN Facility:[facility] Patient encounter procedure Thuy Hannah Work Phone: -[facility] Internal [facility] Work Phone: Procedures Date Procedure Procedure Detail Performing Clinician Start: 10-27-2024 Computed tomography of abdomen and pelvis with intravenous contrast [facility] Start: 10-27-2024 Estimated creatinine clearance [facility] Start: 10-27-2024 Urnls dip stick/tabl et reagent auto microscopy [facility] Start: 09-17-2024 CT of thorax, abdome n and pelvis with contrast [facility] Start: 09-17-2024 Estimated creatinine clearance [facility] Start: 04-26-2023 SARS-CoV-2, Influenz a & RSV (PCR) [facility] Start: 03-17-2023 Cardiovascular stres s test using pharmacologic stress agent [facility] Start: 03-16-2023 Plain chest X-ray [facility] Start: 01-11-2023 MRI of brain without contrast [facility] Start: 01-11-2023 Plain x-ray of wrist [facility] Start: 01-10-2023 Plain chest X-ray NURSE MIDWIFE/CLINICAL INSTRUCTOR-C Kev Linaresder NURSE MIDWIFE/CLINICAL INSTRUCTOR Work Phone: Start: 01-10-2023 CT of head without contrast NURSE MIDWIFE/CLINICAL INSTRUCTOR-C Kev Linaresder NURSE MIDWIFE/CLINICAL INSTRUCTOR Work Phone: Start: 01-10-2023 CT angiography of he ad and neck NURSE MIDWIFE/CLINICAL INSTRUCTOR-C Kev Lugo NURSE MIDWIFE/CLINICAL INSTRUCTOR Work Phone: Start: 07-04-2022 Colonoscopy NURSE MIDWIFE/CLINICAL INSTRUCTOR-C Kev Linaresder NURSE MIDWIFE/CLINICAL INSTRUCTOR Work Phone: Start: 05-26-2022 CT of abdomen and pe lvis without contrast Start: 03-24-2022 Computed tomography of abdomen and pelvis with intravenous contrast NURSE MIDWIFE/CLINICAL INSTRUCTOR-C Kev Lugo NURSE MIDWIFE/CLINICAL INSTRUCTOR Work Phone: Start: 03-24-2022 Plain chest X-ray NURSE MIDWIFE/CLINICAL INSTRUCTOR-C Kev Linaresder NURSE MIDWIFE/CLINICAL INSTRUCTOR Work Phone: Start: 01-14-2022 Computed tomography of abdomen and pelvis with intravenous contrast NURSE MIDWIFE/CLINICAL INSTRUCTOR-C Kev Lugo NURSE MIDWIFE/CLINICAL INSTRUCTOR Work Phone: Start: 12-01-2021 MRI of brain without contrast NURSE MIDWIFE/CLINICAL INSTRUCTOR-C Kev Lugo NURSE MIDWIFE/CLINICAL INSTRUCTOR Work Phone: Start: 11-30-2021 Plain chest X-ray NURSE MIDWIFE/CLINICAL INSTRUCTOR-C Kev Lugo NURSE MIDWIFE/CLINICAL INSTRUCTOR Work Phone: Start: 11-30-2021 CT angiography of he ad and neck NURSE MIDWIFE/CLINICAL INSTRUCTOR-C Kev Lugo NURSE MIDWIFE/CLINICAL INSTRUCTOR Work Phone: Start: 11-30-2021 CT of head without contrast NURSE MIDWIFE/CLINICAL INSTRUCTOR-C Kev Lugo NURSE MIDWIFE/CLINICAL INSTRUCTOR Work Phone: Start: 08-04-2021 Computed tomography of [...] Start: 08-14-2018 Dup-scan xtr veins unilateral/limited study [facility] Start: 07-04-2018 Cardiac catheterization Josias Singh Work Phone: Start: 06-28-2018 25 hydroxy includes fractions if performed [facility] Start: 06-28-2018 Assay of thyroid sti mulating hormone tsh [facility] Start: 06-28-2018 Blood typing serologic abo [facility] Start: 06-28-2018 Comprehensive metabo lic panel [facility] Start: 06-28-2018 Lipid panel [facility] Start: 06-28-2018 Lipid 1996 panel - S treva or Plasma Tila Reyes APRN.[employer]CH OPERATOR Work Phone: Start: 12-29-2017 Myocardial spect mul tiple studies [facility] Start: 12-29-2017 Cv strs tst xers&/or rx cont ecg w/o i&r [facility] Start: 12-29-2017 Echo tthrc r-t 2d w/ wom-mode compl spec&colr d [facility] Start: 12-09-2017 Radiologic exam ches t single view [facility] Start: 12-09-2017 Ct head/brain w/o co ntrast material [facility] Start: 12-09-2017 Assay of free thyroxine [facility] Start: 12-09-2017 Assay of thyroid sti mulating hormone tsh [facility] Start: 12-09-2017 Blood count complete auto&auto difrntl wbc [facility] Start: 12-09-2017 Comprehensive metabo lic panel [facility] Start: 12-09-2017 D-DIMER, QUANTITATIVE G ALREZA [facility] Start: 12-09-2017 Prothrombin time [facility] Start: 12-09-2017 T3 free mass conc [facility] Start: 12-09-2017 Thromboplastin time partial plasma/whole blood [facility] Start: 12-09-2017 Troponin I.cardiac mass conc [facility] Start: 12-09-2017 EKG 12-LEAD [facility] Start: 04-18-2017 MEASUREMENT OF ASSISTANT ASSOCIATE PROFESSOR E LECTR ACTIVITY, FOREIGN BROADCAST SPECIALIST APPROACH SKY CARRILLO Start: 10-28-2016 Colonoscopy Thuy Noriega ns Work Phone: Comment on above: NORMAL PER PT; Start: 02-27-2015 Cholecystectomy Thuy wayins Work Phone: Start: 02-27-1982 Appendectomy Thuy Noriega ns Work Phone: Appendectomy Thuy Hannah Comment on above: Completed: 1982 Cholecystectomy Thuy Hannah Comment on above: Completed: 2015 End: 10-28-2016 Colonoscopy Thuy Hannah Enteric Bacteriology NURSE MIDWIFE/CLINICAL INSTRUCTOR-C Peter Lugo NURSE MIDWIFE/CLINICAL INSTRUCTOR Work Phone: Enteric Bacteriology NURSE MIDWIFE/CLINICAL INSTRUCTOR-C Peter Lugo NURSE MIDWIFE/CLINICAL INSTRUCTOR Work Phone: Lactoferrin measurement NURSE MIDWIFE/CLINICAL INSTRUCTOR-C Kev Lugo NURSE MIDWIFE/CLINICAL INSTRUCTOR Work Phone: Tonsillectomy Thuy Hannah Urine culture NURSE MIDWIFE/CLINICAL INSTRUCTOR-C Kev helms NURSE MIDWIFE/CLINICAL INSTRUCTOR Work Phone: Urine culture NURSE MIDWIFE/CLINICAL INSTRUCTOR-C Kev helms NURSE MIDWIFE/CLINICAL INSTRUCTOR Work Phone: Plan of Treatment Date Care Activity Detail Author Start: 11-20-2027 Tetanus vaccination [facility] Start: 11-20-2027 Urine microalbumin profile DTa P,Tdap,Td Vaccine (4 - Td or Tdap) [facility] Start: 11-25-2024 Colonoscopy [facility] Start: 11-25-2024 [facility] Start: 10-27-2024 [facility] Start: 09-17-2024 [facility] Start: 09-17-2024 [facility] Start: 09-17-2024 [facility] Start: 08-11-2024 Prostate specific an tigen measurement Prostate Cancer Screening Discussion [facility] Start: 10-29-2023 Covid-19 Vaccine () Covid-19 Vaccine () [facility] Start: 06-29-2023 Lipid panel Lipid Screening [facility] Start: 03-20-2023 Patient discharge [facility] Start: 03-20-2023 Notification of physician [facility] Start: 03-20-2023 Patient education [facility] Start: 03-20-2023 Provision of activit y privileges [facility] Start: 03-20-2023 Pulse taking [facility] Start: 03-20-2023 Taking patient vital signs [facility] Start: 03-20-2023 Wound care [facility] Start: 03-20-2023 [facility] Start: 03-18-2023 Provision of activit y privileges [facility] Start: 03-18-2023 [facility] Start: 03-17-2023 Admission procedure [facility] Start: 03-17-2023 Referral to wrapper cashier [facility] Start: 03-16-2023 Notification of physician [facility] Start: 03-16-2023 [facility] Start: 03-16-2023 Following clinical p athway protocol [facility] Start: 03-16-2023 Hospital admission, emergency, from emergency room, medical nature [facility] Start: 03-16-2023 Admission procedure [facility] Start: 03-16-2023 [facility] Start: 01-12-2023 Patient discharge [facility] Start: 01-11-2023 Care planning and pr oblem solving actions [facility] Start: 01-11-2023 CT Unspecified body region WO [facility] Start: 01-11-2023 STROKE Brain/Head wi thout Cont STROKE Brain/Head without Cont [facility] Start: 01-11-2023 Bleeding precautions [facility] Start: 01-11-2023 Thyroid stimulating hormone measurement [facility] Start: 01-11-2023 [facility] Start: 01-10-2023 Application of inter mittent pneumatic compression device [facility] Start: 01-10-2023 Following clinical p athway protocol [facility] Start: 01-10-2023 End: 01-11-2023 Troponin I measurement [facility] Start: 01-10-2023 Assessment of risk o f venous thromboembolism [facility] Start: 01-10-2023 Bedrest [facility] Start: 01-10-2023 Care regimes management [facility] Start: 01-10-2023 Consultation [facility] Start: 01-10-2023 Continuous positive airway pressure ventilation treatment [facility] Start: 01-10-2023 Continuous pulse oximetry [facility] Start: 01-10-2023 Electrocardiographic procedure [facility] Start: 01-10-2023 Incentive spirometry [facility] Start: 01-10-2023 Inhalation therapy procedure [facility] Start: 01-10-2023 Insertion of cathete r into peripheral vein [facility] Start: 01-10-2023 Introduction of urin bar catheter [facility] Start: 01-10-2023 Measuring intake and output [facility] Start: 01-10-2023 MRI of brain without contrast Brain without Contrast [facility] Start: 01-10-2023 Notification of physician [facility] Start: 01-10-2023 Oxygen therapy [facility] Start: 01-10-2023 Patient referral to dietitian [facility] Start: 01-10-2023 Providing care accor ding to standard [facility] Start: 01-10-2023 Provision of activit y privileges [facility] Start: 01-10-2023 Referral to occupati onal therapist [facility] Start: 01-10-2023 Referral to service [facility] Start: 01-10-2023 Speech therapy assessment [facility] Start: 01-10-2023 Telepractice consultation [facility] Start: 01-10-2023 Vital signs measurements [facility] Start: 01-10-2023 [facility] Start: 01-10-2023 Bleeding precautions [facility] Start: 01-10-2023 Verification routine [facility] Start: 01-10-2023 Admission procedure [facility] Start: 01-10-2023 Bleeding precautions [facility] Start: 01-10-2023 Consultation [facility] Start: 01-10-2023 Patient referral to dietitian [facility] Start: 07-04-2022 Patient discharge [facility] Start: 06-18-2022 Protein measurement [facility] Start: 03-24-2022 [facility] Start: 03-04-2022 Diabetes Screening Diabetes Screenin [facility] Start: 12-02-2021 Patient discharge [facility] Start: 12-01-2021 Care planning and pr oblem solving actions [facility] Start: 12-01-2021 [facility] Start: 11-30-2021 Application of inter mittent pneumatic compression device [facility] Start: 11-30-2021 Aspiration precautions [facility] Start: 11-30-2021 Assessment of risk o f venous thromboembolism [facility] Start: 11-30-2021 Bedrest [facility] Start: 11-30-2021 Care regimes management [facility] Start: 11-30-2021 Consultation [facility] Start: 11-30-2021 Continuous pulse oximetry [facility] Start: 11-30-2021 Elevation of head of bed [facility] Start: 11-30-2021 Fall prevention [facility] Start: 11-30-2021 Insertion of cathete r into peripheral vein [facility] Start: 11-30-2021 Measuring intake and output [facility] Start: 11-30-2021 Oxygen therapy [facility] Start: 11-30-2021 Providing care accor ding to standard [facility] Start: 11-30-2021 Provision of activit y privileges [facility] Start: 11-30-2021 Referral to occupati onal therapist [facility] Start: 11-30-2021 Referral to service [facility] Start: 11-30-2021 Speech therapy assessment [facility] Start: 11-30-2021 Vital signs measurements [facility] Start: 11-30-2021 End: 11-30-2021 [facility] Start: 11-30-2021 End: 11-30-2021 Following clinical pathway protocol [facility] Start: 11-30-2021 Verification routine [facility] Work Phone: Start: 11-30-2021 Admission procedure [facility] Start: 11-30-2021 Bleeding precautions [facility] Start: 11-30-2021 Consultation [facility] Start: 11-30-2021 Oxygen therapy [facility] Work Phone: Start: 11-30-2021 Plain chest X-ray Chest 1 View [facility] Work Phone: Start: 11-30-2021 End: 11-30-2021 [facility] Work Phone: Start: 11-30-2021 [facility] Work Phone: Start: 06-08-2021 Patient encounter procedure JASON ZAMORANO, Provider: Thuy Hannah, Status: Pen, Time: 9:20 AM [facility] Work Phone: Start: 01-28-2020 Assay of prostate sp ecific antigen total Prostate Specific Antigen ZH-Gnefczb-Zpjvyb d Work Phone: Start: 01-28-2020 Assay of testosterone total Testoste kandy, Level ZQ-Sqbosnk-Swpdby d Work Phone: Start: 01-28-2020 Measurement of total hemoglobin concentration and hematocrit Hemoglobin + Hematocrit MM-Xwcdgsl-Vdnrec d Work Phone: Start: 10-29-2019 Influenza vaccination given Se quential Influenza Vaccine (#1) [facility] Start: 10-28-2018 Influenza vaccination given SE QUENTIAL INFLUENZA VACCINE (Season Ended) [facility] Start: 04-05-2017 End: 04-05-2017 Ambulatory [facility] Start: 10-28-2016 Influenza vaccination SEQUENTI AL INFLUENZA VACCINE (#1) [facility] Work Phone: Start: 07-07-2015 Administration of he rpes zoster vaccine Zoster Vaccines (1 of 2) [facility] Start: 07-07-2015 Screening for malign ant neoplasm of colon [facility] Start: 2010 Screening for malign ant neoplasm of colon [facility] Start: 1984 Hepatitis B Vaccine (1 of 3 - 19+ 3-dose series) Hepatitis B Vaccine (1 of 3 - 19+ 3-dose series) [facility] Start: 07-07-1983 Anxiety Screening Anxiety Screening [facility] Start: 07-07-1983 Depression Screening Depression Scre ening [facility] Start: 07-07-1983 Hepatitis C antibody , confirmatory test Hepatitis C Screening [facility] Start: 07-07-1983 Hepatitis C screening Hepatitis C Sc reening [facility] Start: 07-07-1983 HIV screening HIV Screening [facility] Start: 1981 COVID-19 Vaccine (1 of 2) COVI D-19 Vaccine (1 of 2) [facility] Start: 1980 HIV screening HIV Screening [facility] Start: 1977 Adolescent depressio n screening assessment Depression Screening (PHQ9) [facility] Start: 1968 History and physical examination, annual for health maintenance Wellness Visit [facility] Start: 1965 Prostate specific an tigen measurement PSA Level [facility] Start: 1965 [facility] Work Phone: Start: 1965 Screening for malign ant neoplasm of colon Colorectal Cancer Screening: Colonoscopy [facility] Start: 1965 Tetanus vaccination TETANUS EVERY 10 YR [facility] Work Phone: Alanine aminotransfe rase [Enzymatic activity/volume] in Serum or Plasma [facility] Albumin [Mass/volume ] in Serum or Plasma [facility] Alkaline phosphatase [Enzymatic activity/volume] in Serum or Plasma [facility] Anion gap measurement [facility] Aspartate aminotrans ferase [Enzymatic activity/volume] in Serum or Plasma [facility] Bacteria identified in Urine by Culture Urine Culture [facility] Work Phone: Bilirubin, total measurement [facility] BUN/Creatinine ratio [facility] Calcium [Mass/volume ] in Serum or Plasma [facility] Carbon dioxide, tota l [Moles/volume] in Serum or Plasma [facility] Cardiac catheterization Cardiac Catheterization Routine 07/04/2018 9:24 AM EDT [facility] Cardiac event recording [facility] Work Phone: Chloride [Moles/volu me] in Serum or Plasma [facility] Cholesterol [Mass/vo lume] in Serum or Plasma [facility] Cholesterol in HDL [Mass/volume] in Serum or Plasma [facility] Cholesterol in LDL [Mass/volume] in Serum or Plasma [facility] Creatinine [Moles/vo lume] in Serum or Plasma [facility] Enteric Bacteriology Enteric Bacteriology [facility] Work Phone: Gastrointestinal pat hogens panel - Stool by GITA with probe detection [facility] Work Phone: Glucose [Mass/volume ] in Serum or Plasma [facility] Hematocrit [Volume Fraction] of Blood [facility] Hemoglobin [Mass/vol ume] in Blood [facility] Hemoglobin A1c/Hemoglobin.total in Blood [facility] Leukocytes [#/volume ] in Blood [facility] Magnesium [Mass/volu me] in Serum or Plasma [facility] Work Phone: Mean corpuscular hem oglobin concentration determination [facility] Mean corpuscular hem oglobin determination [facility] Measurement of renal function [facility] Neutrophil count [facility] Neutrophil percent differential count [facility] Patient Education [facility] Work Phone: Patient referral [facility] Work Phone: Platelets [#/volume] in Blood [facility] Potassium [Moles/vol ume] in Serum or Plasma [facility] Red blood cell count [facility] Red cell distributio n width determination [facility] Sodium [Moles/volume ] in Serum or Plasma [facility] Total protein measurement [facility] Triglycerides measurement [facility] End: 04-04-2018 Ultrasound venous insufficiency right leg Ultrasound venous insufficiency right leg Routine Varicose veins of leg with pain, right 1 Occurrences starting 02/01/2017 until 04/04/2018 [facility] Work Phone: Urea nitrogen [Mass/ volume] in Serum or Plasma [facility] VLDL cholesterol measurement [facility] NEGATED: Highlighted row has been ruled out! Planned Goals not documented XR-Koevney-Dthbwy d Work Phone: Immunizations Immunization Date Immunization Notes Care Provider Kathia huerta 12-02-2021 influenza, injectabl e, quadrivalent, preservative free NURSE MIDWIFE/CLINICAL INSTRUCTOR-C Kev Lugo NURSE MIDWIFE/CLINICAL INSTRUCTOR Work Phone: [facility] 12-02-2021 influenza, seasonal, injectable NURSE MIDWIFE/CLINICAL INSTRUCTOR-C Kev Lugo NURSE MIDWIFE/CLINICAL INSTRUCTOR Work Phone: [facility] 11-27-2020 Covid (Pfizer) Dr. Di Walden Work Phone: [facility] 11-27-[address] Di Walden Work Phone: [facility] 05-27-2020 Covid (Pfizer) Dr. Di Walden Work Phone: [facility] 05-16-2020 Pfizer-BioNTech COVID-19 Vacc 30 MCG/0.3ML Intramuscular Suspension Thuy Hannah Work Phone: [facility] Work Phone: 04-25-2020 Pfizer-BioNTech COVID-19 Vacc 30 MCG/0.3ML Intramuscular Suspension Thuy Hannah Work Phone: [facility] 12-10-2019 Influenza, injectabl e, Madin Roderfield Canine Kidney, preservative free, quadrivalent Thuy Hannah Work Phone: [facility] Work Phone: 11-28-2019 influenza, injectabl e, quadrivalent, preservative free NURSE MIDWIFE/CLINICAL INSTRUCTOR-C Kev Lugo NURSE MIDWIFE/CLINICAL INSTRUCTOR Work Phone: [facility] 11-28-2019 influenza, seasonal, injectable Dr. Di Walden Work Phone: [facility] 12-11-2018 influenza, injectabl e, quadrivalent, preservative free Thuy Hannah Work Phone: [facility] Work Phone: 11-27-2018 influenza, seasonal, injectable Thuy D Hannah Work Phone: [facility] Work Phone: Comment on above: Series: 11-27-2018 influenza, seasonal, injectable Thuy Hannah [facility] Work Phone: 12-02-2017 influenza nasal, unspecified formulation Tila Reyes APRN.[facility] Work Phone: [facility] 12-02-2017 influenza, injectabl e, quadrivalent, preservative free Thuy D Hannah Work Phone: [facility] Work Phone: 11-19-2017 tetanus toxoid, redu madhav diphtheria toxoid, and acellular pertussis vaccine, adsorbed Thuy D Hannah Work Phone: [facility] 11-16-2015 influenza, seasonal, injectable, preservative free Thuy D Hannah Work Phone: [facility] Work Phone: 04-04-2012 tetanus toxoid, redu madhav diphtheria toxoid, and acellular pertussis vaccine, adsorbed Thuy D Hannah Work Phone: [facility] Work Phone: Payers Date Payer Category Payer Unknown [id number] 2024 Medicare (Managed Care) [facility] MEDIC[facility] HMO [id number] 2024 Medicare [id number] 2023 Self-pay [id number] 2023 Medicare [id number] 2017 Unknown 2017 Medicare 2017 Unknown [id number] 3 2015 Medicare [id number] 2.16.840.1.325799.3.249.1 3 2013 Medicare MEDICARE MEDICAR E PART A & B xxxxxxxxxx 2013-Present [place] xxxxxxxxxx [id number] 2013 Medicare [id number] 2013 Medicare MEDICARE MEDICAR E PART A & B [id number] 2013-Present [place] [id number] .[id number] 1965 Unknown [id number] 2.16.840.1.352738.3.579.2 .174 1965 Unknown [id number] 2.16.840.1.940261.3.579.2 .1965 Unknown [id number] 2.16.840.1.037592.3.579.2 .174 1965 Unknown [id number] 2.16.840.1.508305.3.579.2 .174 1965 Unknown [id number] 2.16.840.1.697845.3.579.2 .174 1965 Unknown [id number] 2.16.840.1.812656.3.579.2 .174 1965 Unknown [id number] 2.16.840.1.506470.3.579.2 .174 1965 Unknown [id number] 2.16.840.1.062578.3.579.2 .174 1965 Unknown [id number] 2.16.840.1.703574.3.579.2 .903 1965 Unknown [id number] 2.16.840.1.014680.3.579.2 .627 Private Health Insurance [id number] Unknown [id number] 2.16.840.1.180545.3.579.2 .462 Unknown [id number] 2.16.840.1.906127.3.579.2 .462 Unknown [id number] 2.16.840.1.487774.3.579.2 .462 Unknown [id number] 2.16.840.1.684194.3.579.2 .462 Unknown [id number] 2.840.1.171823.3.579.2 .462 Social History Date Type Detail Facility Start: 02-01-2017 End: 06-01-2024 Tobacco smoking status NHIS Never smoker [facility] Work Phone: Start: 1965 Sex Assigned At Not on file O [facility] Work Phone: Start: 07-04-2018 End: 10-27-2024 Tobacco smoking status NHIS Former smoker [facility] End: 07-04-2005 History of tobacco use Current smoker [facility] Start: 07-04-2018 End: 02-05-2020 Cigarettes smoked current (pack per day) - Reported [facility] Start: 07-05-2018 End: 06-01-2024 Tobacco use and exposure Never used [facility] Start: 07-05-2018 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 intake 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) [facility] Start: 07-13-2021 End: 04-26-2023 Tobacco smoking status ILIS Unknown if ever smoked [facility] Start: 06-06-2020 None [facility] Start: 06-06-2020 Spouse/ Signif icant Other [facility] Start: 06-06-2020 Non-smoker [facility] Start: 1965 Sex Assigned At Male W [facility] Tobacco smoking status [facility] Start: 02-05-2020 End: 06-01-2024 Tobacco use panel [facility] National Score (1-100), lower number is lower risk Not on file [facility] Tobacco Nicotine Use: denies. [facility] Start: 07-13-2022 Sex Male (finding) [facility] Start: 08-02-2023 Tobacco Use Tobacco Use [facility] NEGATED: Highlighted row - - [facility] Work Phone: Medical Equipment Procedure Code Equipment Code Equipment Original Text Equipment Identifier Dates Laparoscopic-assisted sigmoidectomy SUPERVISOR TANK CLEANING,CLIP 5MM LIGAMAX FDA Start: 02-24-2020 Laparoscopic-assisted sigmoidectomy RELOAD,BLUE 60 FDA Start: 02-24-2020 Laparoscopic-assisted sigmoidectomy RELOAD,BLUE 60 FDA Start: 02-24-2020 Laparoscopic-assisted sigmoidectomy STAPLER,INTRA CDH29A ETHICON FDA Start: 02-24-2020 Laparoscopic-assisted sigmoidectomy SUPERVISOR TANK CLEANING,CLIP 5MM LIGAMAX FDA Start: 02-24-2020 Laparoscopic-assisted sigmoidectomy RELOAD,BLUE 60 FDA Start: 02-24-2020 Laparoscopic-assisted sigmoidectomy RELOAD,BLUE 60 FDA Start: 02-24-2020 Laparoscopic-assisted sigmoidectomy STAPLER,INTRA CDH29A ETHICON FDA Start: 02-24-2020 Laparoscopic-assisted sigmoidectomy SUPERVISOR TANK CLEANING,CLIP 5MM LIGAMAX FDA Start: 02-24-2020 Laparoscopic-assisted sigmoidectomy RELOAD,BLUE 60 FDA Start: 02-24-2020 Laparoscopic-assisted sigmoidectomy RELOAD,BLUE 60 FDA Start: 02-24-2020 Laparoscopic-assisted sigmoidectomy STAPLER,INTRA CDH29A ETHICON FDA Start: 02-24-2020 Laparoscopic-assisted sigmoidectomy SUPERVISOR TANK CLEANING,CLIP 5MM LIGAMAX FDA Start: 02-24-2020 Laparoscopic-assisted sigmoidectomy RELOAD,BLUE 60 FDA Start: 02-24-2020 Laparoscopic-assisted sigmoidectomy RELOAD,BLUE 60 FDA Start: 02-24-2020 Laparoscopic-assisted sigmoidectomy STAPLER,INTRA CDH29A ETHICON FDA Start: 02-24-2020 Laparoscopic-assisted sigmoidectomy SUPERVISOR TANK CLEANING,CLIP 5MM LIGAMAX FDA Start: 02-24-2020 Laparoscopic-assisted sigmoidectomy RELOAD,BLUE 60 FDA Start: 02-24-2020 Laparoscopic-assisted sigmoidectomy RELOAD,BLUE 60 FDA Start: 02-24-2020 Laparoscopic-assisted sigmoidectomy STAPLER,INTRA CDH29A ETHICON FDA Start: 02-24-2020 Laparoscopic-assisted sigmoidectomy SUPERVISOR TANK CLEANING,CLIP 5MM LIGAMAX FDA Start: 02-24-2020 Laparoscopic-assisted sigmoidectomy RELOAD,BLUE 60 FDA Start: 02-24-2020 Laparoscopic-assisted sigmoidectomy RELOAD,BLUE 60 FDA Start: 02-24-2020 Laparoscopic-assisted sigmoidectomy STAPLER,INTRA CDH29A ETHICON FDA Start: 02-24-2020 Laparoscopic-assisted sigmoidectomy SUPERVISOR TANK CLEANING,CLIP 5MM LIGAMAX FDA Start: 02-24-2020 Laparoscopic-assisted sigmoidectomy RELOAD,BLUE 60 FDA Start: 02-24-2020 Laparoscopic-assisted sigmoidectomy RELOAD,BLUE 60 FDA Start: 02-24-2020 Laparoscopic-assisted sigmoidectomy STAPLER,INTRA CDH29A ETHICON FDA Start: 02-24-2020 Laparoscopic-assisted sigmoidectomy SUPERVISOR TANK CLEANING,CLIP 5MM LIGAMAX FDA Start: 02-24-2020 Laparoscopic-assisted sigmoidectomy RELOAD,BLUE 60 FDA Start: 02-24-2020 Laparoscopic-assisted sigmoidectomy RELOAD,BLUE 60 FDA Start: 02-24-2020 Laparoscopic-assisted sigmoidectomy STAPLER,INTRA CDH29A ETHICON FDA Start: 02-24-2020 Laparoscopic-assisted sigmoidectomy SUPERVISOR TANK CLEANING,CLIP 5MM LIGAMAX FDA Start: 02-24-2020 Laparoscopic-assisted sigmoidectomy RELOAD,BLUE 60 FDA Start: 02-24-2020 Laparoscopic-assisted sigmoidectomy RELOAD,BLUE 60 FDA Start: 02-24-2020 Laparoscopic-assisted sigmoidectomy STAPLER,INTRA CDH29A ETHICON FDA Start: 02-24-2020 Laparoscopic-assisted sigmoidectomy SUPERVISOR TANK CLEANING,CLIP 5MM LIGAMAX FDA Start: 02-24-2020 Laparoscopic-assisted sigmoidectomy RELOAD,BLUE 60 FDA Start: 02-24-2020 Laparoscopic-assisted sigmoidectomy RELOAD,BLUE 60 FDA Start: 02-24-2020 Laparoscopic-assisted sigmoidectomy STAPLER,INTRA CDH29A ETHICON FDA Start: 02-24-2020 Laparoscopic-assisted sigmoidectomy SUPERVISOR TANK CLEANING,CLIP 5MM LIGAMAX FDA Start: 02-24-2020 Laparoscopic-assisted sigmoidectomy RELOAD,BLUE 60 FDA Start: 02-24-2020 Laparoscopic-assisted sigmoidectomy RELOAD,BLUE 60 FDA Start: 02-24-2020 Laparoscopic-assisted sigmoidectomy STAPLER,INTRA CDH29A ETHICON FDA Start: 02-24-2020 Laparoscopic-assisted sigmoidectomy SUPERVISOR TANK CLEANING,CLIP 5MM LIGAMAX FDA Start: 02-24-2020 Laparoscopic-assisted sigmoidectomy RELOAD,BLUE 60 FDA Start: 02-24-2020 Laparoscopic-assisted sigmoidectomy RELOAD,BLUE 60 FDA Start: 02-24-2020 Laparoscopic-assisted sigmoidectomy STAPLER,INTRA CDH29A ETHICON FDA Start: 02-24-2020 Laparoscopic-assisted sigmoidectomy SUPERVISOR TANK CLEANING,CLIP 5MM LIGAMAX FDA Start: 02-24-2020 Laparoscopic-assisted sigmoidectomy RELOAD,BLUE 60 FDA Start: 02-24-2020 Laparoscopic-assisted sigmoidectomy RELOAD,BLUE 60 FDA Start: 02-24-2020 Laparoscopic-assisted sigmoidectomy STAPLER,INTRA CDH29A ETHICON FDA Start: 02-24-2020 Laparoscopic-assisted sigmoidectomy SUPERVISOR TANK CLEANING,CLIP 5MM LIGAMAX FDA Start: 02-24-2020 Laparoscopic-assisted sigmoidectomy RELOAD,BLUE 60 FDA Start: 02-24-2020 Laparoscopic-assisted sigmoidectomy RELOAD,BLUE 60 FDA Start: 02-24-2020 Laparoscopic-assisted sigmoidectomy STAPLER,INTRA CDH29A ETHICON FDA Start: 02-24-2020 Laparoscopic-assisted sigmoidectomy SUPERVISOR TANK CLEANING,CLIP 5MM LIGAMAX FDA Start: 02-24-2020 Laparoscopic-assisted sigmoidectomy RELOAD,BLUE 60 FDA Start: 02-24-2020 Laparoscopic-assisted sigmoidectomy RELOAD,BLUE 60 FDA Start: 02-24-2020 Laparoscopic-assisted sigmoidectomy STAPLER,INTRA CDH29A ETHICON FDA Start: 02-24-2020 Laparoscopic-assisted sigmoidectomy SUPERVISOR TANK CLEANING,CLIP 5MM LIGAMAX FDA Start: 02-24-2020 Laparoscopic-assisted sigmoidectomy RELOAD,BLUE 60 FDA Start: 02-24-2020 Laparoscopic-assisted sigmoidectomy RELOAD,BLUE 60 FDA Start: 02-24-2020 Laparoscopic-assisted sigmoidectomy STAPLER,INTRA CDH29A ETHICON FDA Start: 02-24-2020 Laparoscopic-assisted sigmoidectomy SUPERVISOR TANK CLEANING,CLIP 5MM LIGAMAX FDA Start: 02-24-2020 Laparoscopic-assisted sigmoidectomy RELOAD,BLUE 60 FDA Start: 02-24-2020 Laparoscopic-assisted sigmoidectomy RELOAD,BLUE 60 FDA Start: 02-24-2020 Laparoscopic-assisted sigmoidectomy STAPLER,INTRA CDH29A ETHICON FDA Start: 02-24-2020 Laparoscopic-assisted sigmoidectomy SUPERVISOR TANK CLEANING,CLIP 5MM LIGAMAX FDA Start: 02-24-2020 Laparoscopic-assisted sigmoidectomy RELOAD,BLUE 60 FDA Start: 02-24-2020 Laparoscopic-assisted sigmoidectomy RELOAD,BLUE 60 FDA Start: 02-24-2020 Laparoscopic-assisted sigmoidectomy STAPLER,INTRA CDH29A ETHICON FDA Start: 02-24-2020 Laparoscopic-assisted sigmoidectomy SUPERVISOR TANK CLEANING,CLIP 5MM LIGAMAX FDA Start: 02-24-2020 Laparoscopic-assisted sigmoidectomy RELOAD,BLUE 60 FDA Start: 02-24-2020 Laparoscopic-assisted sigmoidectomy RELOAD,BLUE 60 FDA Start: 02-24-2020 Laparoscopic-assisted sigmoidectomy STAPLER,INTRA CDH29A ETHICON FDA Start: 02-24-2020 Laparoscopic-assisted sigmoidectomy SUPERVISOR TANK CLEANING,CLIP 5MM LIGAMAX FDA Start: 02-24-2020 Laparoscopic-assisted sigmoidectomy RELOAD,BLUE 60 FDA Start: 02-24-2020 Laparoscopic-assisted sigmoidectomy RELOAD,BLUE 60 FDA Start: 02-24-2020 Laparoscopic-assisted sigmoidectomy STAPLER,INTRA CDH29A ETHICON FDA Start: 02-24-2020 Laparoscopic-assisted sigmoidectomy SUPERVISOR TANK CLEANING,CLIP 5MM LIGAMAX FDA Start: 02-24-2020 Laparoscopic-assisted sigmoidectomy RELOAD,BLUE 60 FDA Start: 02-24-2020 Laparoscopic-assisted sigmoidectomy RELOAD,BLUE 60 FDA Start: 02-24-2020 Laparoscopic-assisted sigmoidectomy STAPLER,INTRA CDH29A ETHICON FDA Start: 02-24-2020 Closure 6fr Angioseal Vip - [id number] Start: 07-04-2018 Closure 6fr Angioseal Vip - [id number] Start: 07-04-2018 Goals Date Patient Goal Desired Activity /State Functional Status Date Assessment Result Facility 06-30-2024 Functional Status Up ad berhane [facility] 06-29-2024 Functional Status Standard Safet y ID band on, Call device within reach, Bed in low position, Wheels locked, Toileting device within reach, Visitor at bedside, Safety level maintained [facility] 03-20-2023 Functional status Ambulates;Up ad berhane [facility] Work Phone: 01-12-2023 Functional status Ambulates [facility] Work Phone: 08-11-2022 Functional Status Home [...] 56 Activity-Specific Balance Confidence Scale (ABC): 53% [facility] 12-02-2021 Functional status Ambulates;Up a d berhane;Chair [facility] Work Phone: NEGATED: Highlighted row Functional performance Functional status health issues are not documented Disease [facility] Internal Medicine Work Phone: Mental Status Date Assessment Result Facility 09-17-2024 Cognitive function Level Of Cons ciousness Awake;Alert;Appropriate ;Follows [facility] Work Phone: 06-30-2024 Mental Status Orientation Orie nted x 4 [facility] 06-29-2024 Mental Status [facility] 03-20-2023 Cognitive function Voice/Name [facility] Work Phone: 03-16-2023 Cognitive function Awake;Alert;A ppropriate ;Follows [facility] Work Phone: 01-12-2023 Cognitive function Voice/Name [facility] Work Phone: 01-10-2023 Cognitive function Voice/Name [facility] Work Phone: 07-04-2022 Cognitive function Voice/Name [facility] Work Phone: 07-04-2022 Cognitive function Patient [place] seymour Person;Place;Time [facility] Work Phone: 03-24-2022 Cognitive function Voice/Name [facility] Work Phone: 12-02-2021 Cognitive function Voice/Name [facility] Work Phone: 11-30-2021 Cognitive function Voice/Name [facility] Work Phone: NEGATED: Highlighted row Cognitive function [Interpretation] Cognitive status health issues are not documented Disease [facility] Internal Medicine Work Phone: Clinical Notes 09-10-2020 to 11-25-2024 Note Date & Type Note Facility 11-25-2024 Progress note [facility] 10-27-2024 Radiology Diagnostic study note [facility] Imaging Services [address] [place], [place] [address] Abdomen/Pelvis W IV Cont ONLY MR#: [id number] Acct: [id number] Name: KRISHAN BURNHAM Rep #: [id number] 8 : 1965 M 59 From: Dhiraj Beasley MD PCP: [facility] Status: REG ER Study:Abdomen/Pelvis W IV Cont ONLY Date of E xam: 10/27/24 Exam# [id number] Ordering Dr: Ramirez Navarro MD PROCEDURE: ABDOMEN/PELVIS [...] The lung bases are clear [facility] CC: Dr. Javy Navarro MD; [facility] ~ Electronic Design Engineer: Signed [facility] 09-17-2024 Radiology Diagnostic study note [facility] Imaging Services [address] [address] CTA Chst, Abd, Pel W and/or WO MR#: [id number] Acct: [id number] Name: KRISHAN BURNHAM Rep #: [id number] : 1965 M 59 From: Hero Gale MD PCP: [facility] Status: REG ER Study:CTA Chst, Abd, Pel W and/or WO Date of Exam: 09/17/24 Exam# [id number] Ordering Dr: Bib Beavers DO PROCEDURE: CTA [...] Location: [facility] CC: Dr. Bib Beavers DO; [facility] Electronic Design Engineer: Signed [facility] 06-30-2024 Hospital Discharge instructions Patient Education 06/29/2024 [...] face Sudden trouble with speech or vision [phone] [employer] [place] [address]58. All rights reserved. This information is not intended as a substitute for professional medical care. Always follow your healthcare professional's instructions. [facility] 06/29/2024 21:32:20 With:Go to emergency room if symptoms worsen Address:Unknown When:2-4 days With:VINOD ACUÑA CNP Address: [address] [place] [address] [id number] When:2-4 days [facility] 06-30-2024 Note Discharge Instructions Thank you for allowing [facility] to assist you with your healthcare needs. [...] ACUÑA CNP When:Within 2-4 days Where:[address] [place] [address] [id number] Allergies NKA Medications Please ask your primary [...] face Sudden trouble with speech or vision [phone] [employer]. [address] [place] [address]. All rights reserved. This information is not intended as a substitute for professional medical care. Always follow your healthcare professional's instructions. Additional Information VACCINATE! IT SAVES LIVES! Members of the community who have not yet received the COVID-19 vaccine and would like to receive it can visit one of [facility] vaccine clinics. There are many vaccine clinic locations within the [facility]. For locations and available times, please visit [email or web address].[place].gov/ . It is important to note that some COVID mobile vaccine clinics are held outdoors and may be canceled in rainy or stormy conditions. To learn more about pediatric vaccinations (ages 5-11), we invite you to visit the [facility] webpage. https://www.[email or web address]/pages /4819-Xmegd-Lxaqjyfebmc-Frequently-A sked-Questions.html To learn more about the COVID-19 vaccine, we invite you to visit the CDC website for a list of frequently asked questions. https://www.cdc.gov/coronavirus/2019 -ncov/vaccines/faq.html [facility] Patient Portal Access Instructions: Stay connected with your healthcare team and access your personal medical information anytime with the [facility] Patient Portal. If you would like a full copy of your medical records please contact the [facility] Medical Records Department Monday through Monday between 8a.m. and 4:30p.m. Please follow the directions below to access the portal: 1.Access the email account you provided upon registration to the hospital.2.Look for an invitation email from [facility].3.Open the email and access the invitation link: Accept Invitation to [facility]4.Fill in the required robles to create your account. Sign into www.[email or web address] with your username and password that you [...] you will allow to register on the [employer] Patient Portal for access to your information. You can also access the [employer] Patient Portal on the [employer]. Simply click on Health Records under Health Data and then click on the [employer] logo. HOW TO SAFELY DISPOSE OF PRESCRIPTION [...] Call your local pharmacy or go to [email or web address] [email or web address] to find one close to you.3.Make use of household items: Use cat litter or old coffee grounds to dispose medications if other options are not available. Mix your drugs with these household products, seal them in an airtight container and throw it into the garbage. Call [facility]: [phone] to be sure your drugs can be [...] aware that I should contact my doctor. Patient/Doctor Of Naprapathic Medicine Signature: ___ Date/Time: Relationship to Patient: _ Witness Name/Signature: Date/Time: [facility] 06-29-2024 Note Exam Date Time Procedure Performing Provider Status 06/29/24 10:[address] Head or Brain w/o Contrast EDWIN KHOURY MD; Auth (Verified) [id number] ORIGINAL EXAMINATION: CT OF THE HEAD WITHOUT [...] 06/29/2024 10:57:23 PM Ordering Provider: CARMELA CORRALES [facility]05-03-2025 Note* Exam Date Time Procedure Performing Provider Status 06/29/24 10:39 PM XR Chest 1 View TAY KHOURY MD; Macey h (Verified) [id number] ORIGINAL EXAMINATION: ONE XRAY VIEW OF THE [...] Report By: Eva Gutierrez Electronically signed By Tya Khoury Dictated Date: 06/29/2024 11:00:14 PM Prelim Date: 06/29/2024 11:02:01 PM Sign Date: 06/29/2024 11:06:58 PM Ordering Provider: CARMELA CORRALES [facility]05-03-2025 Note* Exam Date Time Procedure Performing Provider Status 06/29/24 9:56 PM EKG [ED AOH] - CV CARMELA CORRALES DO; Aut h (Verified) ECG Final Report Sinus rhythm Borderline left axis deviation RSR' in V1 or V2, right VCD or RVH Baseline wander in lead(s) V3 Electronic Signature: CARMELA CORRALES DO 06/29/2024 22:00:[address] [facility] [id number] NoteHNO ID: [id number] Author: TILA REYES APRN.KEYPUNCH OPERATOR Service: ? Author Type: Nurse Practitioner Type: [...] history is provided by the patient. No historical guide was used. Sinus Problem Associated symptoms include [...] prior records. Disposition [facility] of Present illness Narrative* Tila [...] history is provided by the patient. No historical guide was used. Sinus Problem Associated symptoms include [...] patient was discharged. [facility] Discharge summary Author Xavi Orlando [facility] March 16, 2023 8:24pm Note Date/Time March 16, 2023 5 :28pm [facility] Medical Records Department [address] [place] [address] Emergency Department Summary 03/16/23 MR#: [id number] Acct: [id number] Name: KRISHAN BURNHAM Rep #:[id number] : 1965 57 From: Xavi Orlando DO PCP: [facility] Status:REG ER Location: ED HPI History of [...] Carafate, Protonix 80 mg twice daily, Pepcid. [facility] Medical History (Updated 03/16/23 @ 19:37 [...] powder packet 17 g PO QHS PRN [id number]/04/22 [History Last Taken 03/15/23] prazosin 5 mg [...] Taken Unknown] sodium chloride-aloe vera nasal gel ([place] Saline nasal gel) 1 applic intranasal DAILY [...] % (Auto) 63.8 Lymph % (Auto) 23.2 [place] % (Auto) 9.7 Eos % (Auto) 2.5 [...] 100 mg/mL suspension 1 g PO 4X/DAY [place] Saline Gel 1 applic intranasal DAILY Primary Care Provider: [facility] Referrals: [facility] [Primary Care Provider] - Capacity Legal Doctor Of Naprapathic Medicine Reflex Medical hold order details:: IF a medical hold is selected below, a suggested order for a MEDICAL HOLD will reflex upon signing the document. Next of kin: [place] law dictates a PRIORITY LIST for identifying [...] problems, contact your Primary Care Provider. Call [facility] ([phone]) or report to the closest Emergency Room. Call 911 if necessary. 03/16/232023 <Electronically signed by Xavi Orlando DO> Cosigner Signature (if applicable): CC: [facility] ~ Signed [facility] Work Phone: 1(406) 341-956101-01-2024 Hospital Discharge instructionsAdditional Instructions Your cardiac workup [...] Monitor for any black or bloody stools. [facility] Work Phone: 1(311) 105-947911-14-2023 Discharge summary Author Flavio Concepcion [facility] January 10, 2023 6:59pm Note Date/Time January 10, 2023 5:45pm [facility] Medical Records Department [address] [place] [address] Emergency Department Summary 01/10/23 MR#: [id number] Acct: [id number] Name: CHACHAKRISHAN JOHANNY Rep #:[id number] 6 : 1965 57 From: Flavio Concepcion MD PCP: [facility] Status:REG ER Location: ED HPI History of [...] Prior similar symptoms: No Recent Illness/[facility]ospitalization[facility] Medical History Abdominal pain Acute cerebrovascular accident [...] % (Auto) 64.2 Lymph % (Auto) 23.5 [place] % (Auto) 10.0 Eos % (Auto) 1.8 [...] per computer.) Management Discussion w/another healthcare provider: Soda Dialyzer and Pharmacist Treatment and Re-Evaluation Narrative: Because [...] of CT and CTA.), Discussing w/Patient &/or Family/Asphalt Machine Operator (Regarding risk benefits of TNK.), Discussing w/Consultants (Radiologist for the unenhancedscan, a different radiologist for the CTA of the head neck, neurologist at [facility] and the hospitalist) and Arranging Admission or Transfer (Hospitalist and nurse supervisor for ICU bed) Discharge Plan Triage [...] Provider] - Disposition Disposition: [facility] What to do if you have Problems For any increased pain, shortness of breath, bleeding, nausea or vomiting, chestpain, or any unexpected problems, contact your Primary Care Provider. Call [facility] ([phone]) or report to the closest Emergency Room. Call 911 if necessary. 01/10/23 1383 <Electronically signed by Flavio Concepcion MD> Cosigner Signature (if applicable): CC: [facility] ~ Signed ADDENDUM by Dr. Flavio Concepcion MD on 01/10/23 at 1859 Repeat EKG was obtained because of persistent chest pain. EKG reveals a sinus rhythm with first-degree AV block. Rate 64. Parables 210 ms. Cures duration 92 ms. QT duration 382 ms. [place] is normal. Question of LVH by voltage criteria. 01/10/23 1859<Electronically signed by Flavio Concepcion MD> Cosigner Signature (if applicable): cc: [facility] ~* Signed [facility] Work Phone: 1(218) 682-994405-08-2023 History and physical note Author Timur Friend [facility] July 04, 2022 8:35am Note Date/Time July 04, 2022 8:35am [facility] Medical Records Department [address] [place] [address] History & Physical Exam 07/04/22 0834 MR#: [id number] Acct: [id number] Name: KRISHAN BURNHAM Rep #:[id number] 1 : 1965 56 From: Timur Abreu DO PCP: [facility] Status:[facility] Location: [place] [address] History and Physical Date of Admission: 07/04/22 [...] an hour, worse with GI cocktail at [place] cocktail, better with milk and a little [...] Mood: congruent mood Quality Reporting Tobacco Screening ([facility] 138) Smoking Status: Former smoker Assessment and [...] CC: ARGENTINA Lugo; Timur Abreu DO~ Signed [facility] Work Phone: 1(673) 836-308705-08-2023 Procedure [facility] 07-04-2022 Procedure [facility]05-08-2023 Procedure note [facility]05-08-2023 Procedure [facility] 09-10-2020 Chief complaint Narrative - Reported* An interactive audio and video telecommunication system which permits real time communications between the patient (at the originating site) and provider (at the distant site) was utilized to providethis telehealth service. * Verbal consent was requested and obtained from KRISHAN BURNHAM on this date, 09/10/2020 04:00 PM , fora telehealth visit. * VIRTUAL: [phone]. Cpap not working [facility] Work Phone: Evaluation + Plan note No data available for this section [facility] Evaluation note* Diagnosis Onset Date Resolution Status COVID-19 acute HTN (hypertension) chronic Type 2 diabetes mellitus acu te HLD (hyperlipidemia) [facility] Work Phone: Evaluation note* Diagnosis Onset Date Resolution Status Type 2 diabetes mellitus acu te HLD (hyperlipidemia) [facility] Work Phone: Evaluation note* Diagnosis Onset Date Resolution Status Pain of left calf noneactive Left knee pain noneactive Type 2 diabetes mellitus acu te HLD (hyperlipidemia) chronic Type 2 diabetes mellitus acu te HLD (hyperlipidemia) chronic HTN (hypertension) chronic Sleep apnea chronic Encounter for pre-operative examination noneactive [facility] Work Phone: Evaluation note* Diagnosis Onset Date Resolution Status Type 2 diabetes mellitus acu te HLD (hyperlipidemia) chronic HTN (hypertension) chronic Sleep apnea chronic Encounter for pre-operative examination noneactive Prostatitis, acute noneactiv e Acute cerebrovascular accident (CVA) due to ischemia acute Borderline type 2 diabetes mellitus [facility] Work Phone: Evaluation note* Diagnosis Onset Date Resolution Status Type 2 diabetes mellitus acu te HLD (hyperlipidemia) chronic HTN (hypertension) chronic Sleep apnea chronic Encounter for pre-operative examination noneactive Prostatitis, acute noneactiv e CVA (cerebral vascular accident) noneactive Acute diverticulitis noneact richard Nausea and vomiting noneacti ve [facility] Work Phone: Evaluation note* Diagnosis Onset Date Resolution Status Prostatitis, acute noneactiv e CVA (cerebral vascular accident) noneactive Acute diverticulitis noneact richard Nausea and vomiting noneacti ve [facility] Work Phone: Evaluation noteNo assessment information available [facility] Work Phone: Evaluation note* Diagnosis Onset Date Resolution Status Abdominal pain chronic Alternating constipation and diarrhea chronic GERD (gastroesophageal reflux disease) chronic [facility] Work Phone: Evaluation note* Diagnosis Onset Date Resolution Status Abdominal pain chronic Alternating constipation and diarrhea chronic GERD (gastroesophageal reflux disease) chronic Acute stroke due to ischemia acute Chest pressure acute Type 2 diabetes mellitus acu te HLD (hyperlipidemia) chronic HTN (hypertension) chronic Parkinsons disease chronic [facility] Work Phone: Evaluation note* Diagnosis Onset Date Resolution Status Wrist pain acute Chest pressure resolved Cellulitis of right wrist ac cheesh-na De Quervain's tenosynovitis, right acute Chest pain acute [facility] Work Phone: Evaluation note* Diagnosis Onset Date Resolution Status Wrist pain acute Chest pressure resolved Cellulitis of right wrist ac cheesh-na De Quervain's tenosynovitis, right acute Chest pain resolved [id number] resolved Cough acute [facility] Work Phone: Evaluation note* Diagnosis Rhinosinusitis- Primary Unspecified sinusitis (chronic) documented in this encounter [facility] Diagnosis Onset Date Resolution Status Admit Date Difficulty swallowing acute Oct 8:14am Melena acute October 8:14am [facility] Work Phone: History and physical note Author Jamee Phillips [facility] January 10, 2023 7:45pm Note Date/Time January 10, 2023 6:39pm [facility] Medical Records Department [address] [place] [id number] H&P Exam - Hospitalist 01/10/23 1839 MR#: [id number] Acct: [id number] Name: KRISHAN BURNHAM Rep #:[id number] : 1965 57 From: Jamee Phillips MD PCP: [facility] Status:ADM IN Location: ICU ICU04-1 HPI - [...] of demyelination who now [facility]-p[facility] to the [facility] on 01/10/23 withhistory of onset at [...] alert and TNK was recommended and initiated. [facility] Medical History Abdominal pain Acute cerebrovascular accident [...] upper extremity and right lower extremity, appropriate [id number]-[id number] and qmmkaf-fb-pejg, equivocal Babinski, sensation still with paresthesias to [...] % (Auto) 64.2, Lymph % (Auto) 23.5, [place] % (Auto) 10.0, Eos % (Auto) 1.8, [...] of demyelination who now re-presents to the [facility] ED on 01/10/23 withhistory of onset at [...] TNK administered in the ED, will request negotiations director consultation per protocol, will plan CT head [...] tPA administration. Charges/Coding Visit Charges Inpatient E&M: 28424 Init Hosp L3 01/10/231944 <Electronically signed by Jamee Phillips MD> Cosigner Signature (if applicable): CC: Dr. Jamee Phillips MD; [facility]~ Signed [facility] Work Phone: History of Present illness Narrative* [...] MACHINE. * PARKINSON'S- STABLE * DIVERTICULOSIS- STABLE [facility] Work Phone: [...] 20 G AND THEY HURT WHEN INJECTINGMED [facility] Work Phone: Hospital Discharge instructions Additional Instructions Please follow-up. Continue Augmentin until finished.[facility] Work Phone: Hospital Discharge instructions Additional Instructions [...] a progression or worsening of your symptoms. [facility] Work Phone: Hospital Discharge instructions No data available for this section [facility] Hospital Discharge instructionsAdditional Instructions Your labs and CAT scan look good. They do not see any signs of acute diverticulitis at this time. Plenty of fluids. Plenty of fiber to help with any constipation. Tylenol for pain. If not proving follow-up with your primary care provider. [facility] Work Phone: Progress note No data available for this section [facility] Proqoess note Author Jay Chavez [facility] Note Date/Time November 25, 2024 8:45am [facility] [address] [place] [address] OFFICE VISIT Date of Service: 11/25/24 MR#: [id number] Acct: [id number] Name: KRISHAN BURNHAM Rep #: [id number] : 1965 Provider: Dr. Mya Chavez MD Age/Sex: 59/M Location: [facility] Status: Signed Intake Vital Signs 10/27/24 [...] Q2W 5 11/25/24 History intramuscular oil (Depo-Testosterone) [facility] BMI 34.0-34.9,adult Left ventricular hypertrophy [...] all the risks. Jay Chavez MD Pager: [facility] [address] [place] [address], [address] [place] [address] Office: Coding Level of Care Code Off vis,est,level 3 Diagnoses Difficulty swallowing R13.10 Melena K92.1 11/25/24 0845 <Electronically signed by Jay elaine MD> Date _ Jay Chavez MD Cosigner Signature: Date (if applicable) CC: ~ [facility] Work Phone: Reason for referral (narrative)No reason for referral information availableWSelect [facility] Work Phone: Assessments Diagnosis Varicose veins of [...] Mother(V17.7, Z82.61) Status:Active H/O heart artery stent: [facility] er(V45.82, Z95.5) Status:Active Family history of ulcerative [...] Documents on File Type Date Recorded Patient Doctor Of Naprapathic Medicine Expl anation Advance Directives and Livin g Will 07/04/2018 7:02 AM Advance Directive Response Recorded Date/ Time Living Will No February 09 021 11:26pm Power of Composite Engineer No February 09, 2021 11:26pm Advance Directive Response Recorded Date/ Time Living Will No August 04, 2021 4 :48pm Power of Composite Engineer No August 04, 2021 4:48pm Advance Directive Response Recorded Date/ Time Living Will No November 30 2 3:49pm Power of Composite Engineer No November 30 022 3:49pm Advance Directive Response Recorded Date/ Time Living Will No November 30 2 5:34pm Power of Composite Engineer No November 30 5:34pm Advance Directive Response Recorded Date/ Time Living Will No November 30 4:34pm Power of Composite Engineer No November 30 4:34pm Advance Directive Response Recorded Date/ Time Living Will No January 14 3:05pm Power of Composite Engineer No January 14, 2022 3:05pm Advance Directive Response Recorded Date/ Time Living Will No March 24 9:24am Power of Composite Engineer No March 24, 2022 9:24am Advance Directive Response Recorded Date/ Time Living Will No May 26, 2022 11:45am Power of Composite Engineer No May 26 11:45am Advance Directive Response Recorded Date/ Time Living Will No June 29, 2022 11 :54am Power of Composite Engineer No June 29, 2022 11:54am Advance Directive Response Recorded Date/ Time Living Will No January 10 5:43pm Power of Composite Engineer No January 10, 2023 5:43pm Advance Directive Response Recorded Date/ Time Name of Medical Power of Composite Engineer GUERA/ March 16, 2023 5:09pm Living Will Yes March 16 5:09pm Power of Composite Engineer Yes March 16, 2023 5:09pm Advance Directive Response Recorded Date/ Time Name of Medical Power of Composite Engineer GUERA/ March 16, 2023 5:09pm Living Will No March 16 9:54pm Power of Composite Engineer No March 16, 2023 9:54pm Advance Directive Response Recorded Date/ Time Do you have a Healthcare Power of Composite Engineer? Yes September 17, 2024 11:06am Advance Directive Response Recorded Date/ Time Do you have a Healthcare Power of Composite Engineer? Yes September 17, 2024 11:06am Do you have a Healthcare Power of Composite Engineer? No October 27, 2024 5:20pm Discharge Instructions [...] through Care Everywhere. * CARDIAC CATHETERIZATION: LEFT (SAMI) documented in this encounter Chief Complaint * A telephone visit (audio only) between the patient (at the originating site) and the provider (at the distant site) was utilized to provide this telehealth service. * Verbal consent was requested and obtained from KRISHAN BURNHAM on this date, 09/23/2020 03:00 PM , fora telehealth visit. * VIRTUAL: [phone]. Congestion, PRADO, nausea. Chief Complaint and Reason [...] S/P TPA CVA S/P TPA [facility] FU. keep as 1hr diverticulitis Reason for Visit Type 2 diabetes britney itus HLD (hyperlipidemia) HTN (hypertension) Sleep apnea Encounter for pre-operative examination Prostatitis, acute CVA (cerebral vascular accident) Acute diverticulitis Nausea and vomiting Chief Complaint SURGICAL CLEARANCE - PPW RECIEVED PROSTATE OR BLADDER INFECTION CVA S/P TPA CVA S/P TPA CVA S/P TPA CVA S/P TPA CVA S/P TPA [facility] FU. keep as 1hr diverticulitis STOOL Reason for Visit Type 2 diabetes britney itus HLD (hyperlipidemia) HTN (hypertension) Sleep apnea Encounter for pre-operative examination Prostatitis, acute CVA (cerebral vascular accident) Acute diverticulitis Nausea and vomiting Chief Complaint PROSTATE OR BLADDER INFECTION CVA S/P TPA CVA S/P TPA CVA S/P TPA CVA S/P TPA CVA S/P TPA [facility] FU. keep as 1hr diverticulitis STOOL Reason for Visit Prostatitis, acute CVA (cerebral vascular accident) Acute diverticulitis Nausea and vomiting Chief Complaint PROSTATE OR BLADDER INFECTION CVA S/P TPA CVA S/P TPA CVA S/P TPA CVA S/P TPA CVA S/P TPA [facility] FU. keep as 1hr diverticulitis STOOL CP [...] wrist De Quervain's tenosynovitis, right Chest pain [id number] Cough Chief Complaint Admit Date chest September [...] section and content) DATE CREATED AUTHOR 08/22/2017 [facility] DATE CREATED AUTHOR AUTHOR'S ORGANIZ ATION 09/06/[address] [facility] DATE CREATED AUTHOR AUTHOR'S ORGANIZ ATION 12/15/2017 [facility] DATE CREATED AUTHOR AUTHOR'S ORGANIZ ATION 01/22/2018 [facility] DATE CREATED AUTHOR AUTHOR'S ORGANIZ ATION 02/16/2018 [facility] DATE CREATED AUTHOR AUTHOR'S ORGANIZ ATION 08/17/2018 [facility] DATE CREATED AUTHOR AUTHOR'S ORGANIZ ATION 10/05/2018 [facility] DATE CREATED AUTHOR AUTHOR'S ORGANIZ ATION 09/24/2020 [facility] DATE CREATED AUTHOR AUTHOR'S ORGANIZ ATION 09/26/2020 [facility] DATE CREATED AUTHOR AUTHOR'S ORGANIZ ATION 12/17/2022 [facility] DATE CREATED AUTHOR AUTHOR'S ORGANIZ ATION 06/03/2024 [facility] DATE CREATED AUTHOR AUTHOR'S ORGANIZ ATION 07/04/2024 [facility] DATE CREATED AUTHOR AUTHOR'S ORGANIZ ATION 11/30/2024 [facility] [place], Josias Reynolds MD - 07/03/2018 4:17 PM EDT H&P Notes (unrecognized sect ion and content) Josias Singh M.D. [facility] [place] [address] June 28, 2018 Steve Barrios MD [address] [place], [place] [id number] RE: Krishan Burnham : [address] Barrios: CHIEF COMPLAINT: 1. Chest pain. 2. Hospitalization at [facility] on 06/25, for chest discomfort. HISTORY [...] DC and had a cardiac catheterization in [place] at [facility] and he was told that it was [...] did not resolve and therefore, went to [facility] and was admitted overnight. His troponins [...] Other Family Members: Positive. Father had an DE at 52. Smoking: Negative. Diabetes: Negative. MEDICATIONS: [...] Catheterization is 2000 and on 09/24/2013, at [facility] and told it was okay.. 6. He has had cholecystectomy. 7. Vasectomy. 8. Appendectomy. FAMILY HISTORY: Father had DE at age 52. Mother had heart disease. Two brothers, 55 and 49, are in good health. SOCIAL HISTORY: He is for the second time for 13 years, has a total of 6 children with 4 children at home; ages 17, 15, 14, and 5; 17-year-old girl is a senior, goes to [employer] for nursing, will graduate within the next month. He does not smoke or drink alcohol. 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 LABORATORY DATA: From [facility] on 06/26/2018. His white count was [...] exercise consistent with angina. 2. Hospitalization at [facility] on 06/25/2018, being discharged on 06/26 with negative troponins. 3. Abnormal Myoview stress test with inferolateral ischemia on 12/29/2017. 4. Normal LV function, EF of 60% by an echocardiogram on 12/29/2017. 5. Normal cardiac catheterization in 2000. 6. Catheterization at [facility] in 2013, where he was told everything was okay, although I do not have the actual report. 7. Hypertension, well controlled. 8. Hyperlipidemia, well controlled. 9. Parkinsonism since 2010, well controlled. 10. Strong family history of coronary artery disease with father having a DE at 52. PLAN: Proceed with cardiac catheterization on 07/04 in [place]. DISCUSSION: Mr. Burnham is on full medical therapy with nitrates and beta blockers. However, he continues to have chest pain and was recently hospitalized at [facility] for chest pain. His stress test [...] contact me. Sincerely, JOSIAS SINGH [id number] Doc#: [id number] documented in this encounter Quick Note - Linda Corrales RN - 07/04/2018 1:02 PM EDTQuick Note - Linda Corrales RN - 07/04/2018 12:43 PM EDTQuick Note - Linda Corrales RN - 07/04/2018 9:45 AM EDT Miscellaneous Notes (unrecog nized section and content) Discharge instructions reviewed, instructed patient to STOP taking Imdur per Dr. Singh's orders, voiced understanding, copy of instructions given [...] Team Status: Active Member Role Status Dates [facility] Primary Care Provider Active Team Status: Active Member Role Status Dates [facility] Primary Care Provider Active Dr. Flavio Concepcion MD Emergency Provider Active Dr. Jamee Phillips MD Admit Provider, Other Provider Active Dr. Frankie Smith MD Other Provider Active Dr. Gamal French DO Attending Provider, Other Provide r Active Dr. Marylu Lynn MD Other Provider Active Dr. Manjinder Mcnally MD Other Provider Active Dr. Rory Garcia MD Other Provider Active Ana Lilia Whitaker NURSE MIDWIFE/CLINICAL INSTRUCTOR, NURSE MIDWIFE/CLINICAL INSTRUCTOR-C Other Provider Active Dr. Jose Maria Bedoya DO Referring Provider, Other Provid er Active Team Status: Active Member Role Status Dates [facility] Primary Care Provider Active Dr. Flavio Concepcion MD Emergency Provider Active Dr. Jamee Phillips MD Admit Provider, Other Provider Active Dr. Frankie Smith MD Other Provider Active Dr. Gamal French DO Other Provider Active Dr. Marylu Lynn MD Other Provider Active Dr. Manjinder Mcnally MD Other Provider Active Dr. Rory Garcia MD Other Provider Active Ana Lilia Whitaker NURSE MIDWIFE/CLINICAL INSTRUCTOR, NURSE MIDWIFE/CLINICAL INSTRUCTOR-C Other Provider Active Dr. Jose Maria Bedoya DO Attending Provider, Other Provid er Active Team Status: Active Member Role Status Dates [facility] Primary Care Provider Active Dr. Cristina Duncan MD Attending Provider Active Team Status: Inactive Member Role Status Dates [facility] Primary Care Provider, Referring Provider Active Collin MISHRA, PA Attending Provider Active Team Status: Inactive Member Role Status Dates [facility] Primary Care Provider Active Dr. Flavio Concepcion MD Emergency Provider Active Dr. Jamee Phillips MD Admit Provider, Other Provider Active Dr. Frankie Smith MD Other Provider Active Dr. Gamal French DO Other Provider Active Dr. Marylu Lynn MD Other Provider Active Dr. Manjinder Mcnally MD Other Provider Active Dr. Rory Garcia MD Other Provider Active Ana Lilia Whitaker NURSE MIDWIFE/CLINICAL INSTRUCTOR, NURSE MIDWIFE/CLINICAL INSTRUCTOR-C Other Provider Active Dr. Jose Maria Bedoya DO Attending Provider Active Team Status: Active Member Role Status Dates [facility] Primary Care Provider Active Dr. Xavi Orlando DO Emergency Provider Active Dr. Jake Franklin DO Admit Provider, Attending Pr ovider Active Team Status: Active Member Role Status Dates Kev Lugo NURSE MIDWIFE/CLINICAL INSTRUCTOR, NURSE MIDWIFE/CLINICAL INSTRUCTOR-C Primary Care Provider Active Team Status: Inactive Member Role Status Dates Kev Lugo NURSE MIDWIFE/CLINICAL INSTRUCTOR, NURSE MIDWIFE/CLINICAL INSTRUCTOR-C Primary Care Provider, Referring P rovider Active TAD Mills Attending Provider Active Team Status: Active Member Role Status Dates Kev Lugo NURSE MIDWIFE/CLINICAL INSTRUCTOR, NURSE MIDWIFE/CLINICAL INSTRUCTOR-C Primary Care Provider Active Dr. Flavio Concepcion MD Emergency Provider Active Dr. Jamee Phillips MD Admit Provider, Referring Provider, Other Provider Active Dr. Gamal French DO Attending Provider, Other Provide r Active Dr. Frankie Smith MD Other Provider Active Dr. Manjinder Mcnally MD Other Provider Active Dr. Rory Garcia MD Other Provider Active Ana Lilia Whitaker NURSE MIDWIFE/CLINICAL INSTRUCTOR, NURSE MIDWIFE/CLINICAL INSTRUCTOR-C Other Provider Active Dr. Leonora Dunbar DO Other Provider Active Team Status: Active Member Role Status Dates Kev Brittney NURSE MIDWIFE/CLINICAL INSTRUCTOR, NURSE MIDWIFE/CLINICAL INSTRUCTOR-C Primary Care Provider Active Dr. Jose Seth MD Attending Provider Active Team Status: Active Member Role Status Dates Kev Brittney NURSE MIDWIFE/CLINICAL INSTRUCTOR, NURSE MIDWIFE/CLINICAL INSTRUCTOR-C Primary Care Provider Active Dr. Flavio Concepcion MD Emergency Provider Active Dr. Jamee Phillips MD Admit Provider, Other Provider Active Dr. Gamal French DO Other Provider Active Dr. Frankie Smiht MD Other Provider Active Dr. Manjinder Mcnally MD Other Provider Active Dr. Rory Garcia MD Other Provider Active Ana Lilia Whitaker NURSE MIDWIFE/CLINICAL INSTRUCTOR, NURSE MIDWIFE/CLINICAL INSTRUCTOR-C Other Provider Active Dr. Leonora Dunbar DO Attending Provider, Other Provide r Active Team Status: Active Member Role Status Dates Kev Brittney NURSE MIDWIFE/CLINICAL INSTRUCTOR, NURSE MIDWIFE/CLINICAL INSTRUCTOR-C Primary Care Provider Active Dr. Flavio Concepcion MD Emergency Provider Active Dr. Jamee Phillips MD Admit Provider, Other Provider Active Dr. Gamal French DO Attending Provider, Other Provide r Active Dr. Frankie Smith MD Other Provider Active Dr. Manjinder Mcnally MD Other Provider Active Dr. Rory Garcia MD Other Provider Active Ana Lilia Whitaker NURSE MIDWIFE/CLINICAL INSTRUCTOR, NURSE MIDWIFE/CLINICAL INSTRUCTOR-C Other Provider Active Dr. Leonora Dunbar DO Other Provider Active Team Status: Inactive Member Role Status Dates Kev Linaresder NURSE MIDWIFE/CLINICAL INSTRUCTOR, NURSE MIDWIFE/CLINICAL INSTRUCTOR-C Primary Care Provide r, Attending Provider, Referring Provider Active Team Status: Inactive Member Role Status Dates Kev Linaresder NURSE MIDWIFE/CLINICAL INSTRUCTOR, NURSE MIDWIFE/CLINICAL INSTRUCTOR-C Primary Care Provider Active TAD Mills Attending Provider, Referring Pro vider Active Team Status: Inactive Member Role Status Dates Kev Linaresder NURSE MIDWIFE/CLINICAL INSTRUCTOR, NURSE MIDWIFE/CLINICAL INSTRUCTOR-C Primary Care Provider Active Dr. Flavio Concepcion MD Emergency Provider Active Dr. Jamee Phillips MD Admit Provider, Other Provider Active Dr. Gamal French DO Other Provider Active Dr. Frankie Smith MD Other Provider Active Dr. Manjinder Mcnally MD Other Provider Active Dr. Rory Garcia MD Other Provider Active Ana Lilia Whitaker NURSE MIDWIFE/CLINICAL INSTRUCTOR, NURSE MIDWIFE/CLINICAL INSTRUCTOR-C Other Provider Active Dr. Leonora Dunbar DO Attending Provider Active Team Status: Active Member Role Status Dates Kev Brittney NURSE MIDWIFE/CLINICAL INSTRUCTOR, NURSE MIDWIFE/CLINICAL INSTRUCTOR-C Primary Care Provider Active Dr. Leonora Dunbar DO Attending Provider, Referring Pro vider Active Team Status: Inactive Member Role Status Dates Kev Lugo NURSE MIDWIFE/CLINICAL INSTRUCTOR, NURSE MIDWIFE/CLINICAL INSTRUCTOR-C Primary Care Provider Active Dr. Bib Beavers DO Attending Provider, Emergency Provide r Active Team Status: Inactive Member Role Status Dates Kev Lugo NURSE MIDWIFE/CLINICAL INSTRUCTOR, NURSE MIDWIFE/CLINICAL INSTRUCTOR-C Primary Care Provider Active Dr. Tarsha Power DO Emergency Provider Active Team Status: Inactive Member Role Status Dates Kev Lugo NURSE MIDWIFE/CLINICAL INSTRUCTOR, NURSE MIDWIFE/CLINICAL INSTRUCTOR-C Primary Care Provider Active Dr. Tarsha Power DO Attending Provider, Emergency P rovider Active Team Status: Inactive Member Role Status Dates Kev Lugo NURSE MIDWIFE/CLINICAL INSTRUCTOR, NURSE MIDWIFE/CLINICAL INSTRUCTOR-C Primary Care Provider Active Dr. Deo Rodriguez DO Emergency Provider Active Team Status: Inactive Member Role Status Dates Kev Lugo NURSE MIDWIFE/CLINICAL INSTRUCTOR, NURSE MIDWIFE/CLINICAL INSTRUCTOR-C Primary Care Provider, Referring P rovider Active Lala Hannah NURSE MIDWIFE/CLINICAL INSTRUCTOR, NURSE MIDWIFE/CLINICAL INSTRUCTOR-C Attending Provider Active Team Status: Inactive Member Role Status Dates Kev Lugo NURSE MIDWIFE/CLINICAL INSTRUCTOR, NURSE MIDWIFE/CLINICAL INSTRUCTOR-C Primary Care Provider Active Dr. Deo Rodriguez DO Attending Provider, Emergency Pro vider Active Team Status: Active Member Role Status Dates Kev Lugo NURSE MIDWIFE/CLINICAL INSTRUCTOR, NURSE MIDWIFE/CLINICAL INSTRUCTOR-C Primary Care Provider Active Lala Hannah NURSE MIDWIFE/CLINICAL INSTRUCTOR, NURSE MIDWIFE/CLINICAL INSTRUCTOR-C Attending Provider, Referrin g Provider Active Team Status: Inactive Member Role Status Dates Kev Brittney NURSE MIDWIFE/CLINICAL INSTRUCTOR, NURSE MIDWIFE/CLINICAL INSTRUCTOR-C Primary Care Provider Active Lala Hannah NURSE MIDWIFE/CLINICAL INSTRUCTOR, NURSE MIDWIFE/CLINICAL INSTRUCTOR-C Attending Provider Active Team Status: Inactive Member Role Status Dates Kev Brittney NURSE MIDWIFE/CLINICAL INSTRUCTOR, NURSE MIDWIFE/CLINICAL INSTRUCTOR-C Primary Care Provider Active Lalaobed Hannah NURSE MIDWIFE/CLINICAL INSTRUCTOR, NURSE MIDWIFE/CLINICAL INSTRUCTOR-C Attending Provider, Referrin g Provider Active Team Status: Active Member Role Status Dates Kev Lugo NURSE MIDWIFE/CLINICAL INSTRUCTOR, NURSE MIDWIFE/CLINICAL INSTRUCTOR-C Primary Care Provider, Referring P rovider Active Dr. Timur Abreu DO Attending Provider, Other Prov ider Active Team Status: Inactive Member Role Status Dates Kev Lugo NURSE MIDWIFE/CLINICAL INSTRUCTOR, NURSE MIDWIFE/CLINICAL INSTRUCTOR-C Primary Care Provider, Referring P rovider Active Dr. Timur Abreu DO Attending Provider Active Team Status: Inactive Member Role Status Dates Kev Lugo NURSE MIDWIFE/CLINICAL INSTRUCTOR, NURSE MIDWIFE/CLINICAL INSTRUCTOR-C Referring Provider Active Dr. Timur Abreu DO Attending Provider Active [facility] Primary Care Provider Active Team Status: Inactive Member Role Status Dates [facility] Primary Care Provider Active [facility] Attending Provider, Referring Provider Active Team Status: Active Member Role Status Dates [facility] Primary Care Provider Active Dr. Flavio Concepcion MD Emergency Provider Active Dr. Jamee Phillips MD Admit Provider, Attending Prov ider Active Dr. Frankie Smith MD Other Provider Active Dr. Gamal French , Other Provider Active Dr. Marylu Lynn MD Other Provider Active Dr. Manjinder Mcnally MD Other Provider Active Dr. Rory Garcia MD Other Provider Active Ana Lilia Whitaker NURSE MIDWIFE/CLINICAL INSTRUCTOR, NURSE MIDWIFE/CLINICAL INSTRUCTOR-C Other Provider Active Team Status: Active Member Role Status Dates [facility] Primary Care Provider Active Dr. Xavi Orlando , DO Emergency Provider Active Dr. Jake Franklin , DO Admit Provider , Attending Provider, Other Provider Active Team Status: Active Member Role Status Dates [facility] Primary Care Provider Active Dr. Xavi Orlando DO Emergency Provider Active Dr. Jake Franklin DO Admit Provider, Other Provid er Active Dr. Temi Katz MD Attending Provider, Other Provid er Active Dr. Cristina Duncan MD Other Provider Active Team Status: Active Member Role Status Dates [facility] Primary Care Provider Active Dr. Xavi Orlando DO Emergency Provider Active Dr. Jake Franklin DO Admit Provider, Other Provid er Active Dr. Temi Katz MD Other Provider Active Dr. Cristina Duncan MD Attending Provider, Other Provid er Active Team Status: Active Member Role Status Dates [facility] Primary Care Provider Active Dr. Xavi Orlando DO Emergency Provider Active Dr. Jake Franklin DO Admit Provider, Other Provid er Active Dr. Cristina Duncan MD Other Provider Active Dr. Jake Cox MD Attending Provider, Other Provid er Active Dr. Temi Katz MD Other Provider Active Team Status: Active Member Role Status Dates [facility] Primary Care Provider Active Dr. Xavi Orlando DO Emergency Provider Active Dr. Jake Franklin DO Admit Provider, Other Provid er Active Dr. Cristina Duncan MD Other Provider Active Dr. Jake Cox MD Other Provider Active Dr. Temi Katz MD Other Provider Active Dr. Jose Seth MD Attending Provider Active Team Status: Active Member Role Status [facility] Primary Care Provider Active Dr. Jose Seth MD Attending Provider, Referring Pro vider Active Team Status: Inactive Member Role Status Dates [facility] Primary Care Provider Active Dr. Xavi Orlando DO Emergency Provider Active Dr. Jake Franklin DO Admit Provider, Other Provid er Active Dr. Cristina Duncan MD Other Provider Active Dr. Jake Cox MD Attending Provider Active Dr. Temi Katz MD Other Provider Active Team Status: Inactive Member Role Status Dates [facility] Primary Care Provider Active Collin MISHRA, PA Attending Provider Active Staff Nurse Midwife Relationship Specialty Start Date End Date Jose Maria Deras [facility] [place] [id number] PCP - General Family Medicine 11/26/10 Jorge Anguiano [facility] [address] Primary Staff Physician Cardiology 05/15/18 Team Status: Active Member Role/Relationship Status Dates [facility] Primary Care Provider Active Team Status: Inactive Member Role/Relationship Status Dates [facility] Primary Care Provider Active Start: September 17, 2024 End: September 17, 2024 Dr. Bib Beavers DO Emergency Provider Active Start : September 17, 2024 End: September 17, 2024 Team Status: Inactive Member Role/Relationship Status Dates [facility] Primary Care Provider Active Start: September 17, 2024 End: September 17, 2024 Dr. Bib Beavers DO Attending Provider Active Start : September 17, 2024 End: September 17, 2024 Dr. Bib Beavers DO Emergency Provider Active Start : September 17, 2024 End: September 17, 2024 Team Status: Inactive Member Role/Relationship Status Dates [facility] Primary Care Provider Active Start: October 27, 2024 End: October 27, 2024 Dr. aJvy Navarro MD Emergency Provider Active S tart: October 27, 2024 End: October 27, 2024 Team Status: Active Member Role/Relationship Status Dates [facility] Primary care physician Active Team Status: Inactive Member Role/Relationship Status Dates [facility] Primary care physician Active Start : September 17, 2024 End: September 17, 2024 Dr. Bib Beavers DO Attending physician Active Star t: September 17, 2024 End: September 17, 2024 Dr. Bib Beavers DO Emergency Department Physician Active Start: September 17, 2024 End: September 17, 2024 Team Status: Inactive Member Role/Relationship Status Dates [facility] Primary care physician Active Start : October 27, 2024 End: October 27, 2024 Dr. Javy Navarro MD Attending physician Active Start: October 27, 2024 End: October 27, 2024 Dr. Javy Navarro MD Emergency Department Physician Ac tive Start: October 27, 2024 End: October 27, 2024 Team Status: Inactive Member Role/Relationship Status Dates [facility] Primary care physician Active Start : November 25, 2024 End: November 25, 2024 [facility] Referring Provider Active Start: Se ptember 2024 [...] or prosecute any alcohol or drug abuse patient.[facility] Reason for Visit (unrecogniz ed section and [...] PRIMARY CLINICAL RECORDS. [facility] [facility]. provides no warranty or guarantee of the accuracy or completeness of information in this document.
--- NOTE | 2024-12-01 14:27 | MRI_ITS ---
PROCEDURE: BRAIN WITHOUT CONTRAST 12/02/2024 REASON FOR EXAM: CVA R/O, LEFT SIDED FACIAL PARASTHESIAS TECHNIQUE: Procedure Code: MRIBR Modality: MR Procedure: BRAIN WITHOUT CONTRAST Multiplanar and multisequence images were obtained. COMPARISON: CT brain without contrast, CTA head and neck, 12/01/2024. FINDINGS: There is a normal sulcal pattern and gyral configuration. There is no evidence of acute intracranial hemorrhage or infarction. The olguin-white differentiation is well preserved. There is no evidence of restricted diffusion. The ventricles and basilar cisterns are normal. There are normal flow voids demonstrated in the recognized intracranial vessels. The cerebellum and brainstem are unremarkable. The cerebellar pontine angles are normal. The craniovertebral junction is normal. The sella and suprasellar regions are normal. The orbits and retro-orbital regions are unremarkable. The nasal septum is deviated to the right. Status post bilateral uncinectomy and middle meatal antrostomy. There is pansinusitis with diffuse mucoperiosteal thickening and mucoceles in both maxillary sinuses. The mastoid air cells are clear. There is normal bone marrow signal in the skull base and calvarium. MRI/Brain without Contrast IMPRESSION: 1. No evidence of intracranial pathology. 2. Pansinusitis with bilateral maxillary mucoceles. 3. Status post FESS as described. Reading Location: [id number]
[2024-12-01 14:58] LABS: BETA-HYDROXYBUTYRATE 0.1 mmol/L (0.0-0.3)
[2024-12-01] MEDS: 0.9% Normal Saline (1000mL) 1,000 ML 75 ML IV (16:08)
[2024-12-01] MEDS: CARBIDOPA/LEVODOPA 1 EACH CAPSULE.ER 4 EACH PO (22:40)
--- NOTE | 2024-12-01 22:41 | NURSING ---
10/5 PM meds verified by Kaylie Grimaldo RN
[2024-12-02 02:00] VITALS: BP 113/70; PULSE 68; RESP 14; TEMP 36.6; O2SAT 96
[2024-12-02 05:57] LABS: Hematocrit 39.8 % (40-54); Hemoglobin 13.7 g/dL (13.0-16.5); Immature Granulocytes Count 0.030 X10^3/uL (0.0-0.0); Mean Corp Hgb Conc 34.4 g/dL (32-36); Mean Corpuscular Volume 84.5 fL (80-94); Mean Platelet Vol. 10.0 fl (6.2-12.0); NRBC Flagged by Analyzer 0 % (0-5); Platelet Count 131 K/mm3 (150-450); RBC Distribution Width CV 13.1 % (11.6-14.6); RBC Distribution Width SD 39.8 fl (35.1-43.9); Red Blood Count 4.71 M/mm3 (4.6-6.2); White Blood Count 5.9 K/mm3 (4.4-11.0)
[2024-12-02 06:00] VITALS: BP 101/64; PULSE 68; RESP 14; TEMP 36.4; O2SAT 97
[2024-12-02 06:15] LABS: Anion Gap 15 (5-15); BUN 16 mg/dL (4-19); BUN/Creat Ratio 18.3 RATIO (10-20); Calcium,Total 8.5 mg/dL (7.6-11.0); Carbon Dioxide 14.7 mmol/L (21.0-32.0); Chloride 106 mmol/L (98-108); Estimated Creatinine Clearance 111.36 ml/min (50-250); Glucose 142 mg/dL (70-99); Potassium 3.8 mmol/L (3.3-5.1)
[2024-12-02 06:27] LABS: Cholesterol 236 mg/dL (<=200); Low Density Lipoprotein Calc. 2 mg/dL; Triglycerides 1059 mg/dL; Very Low Density Lipoprotein 212 mg/dL (5-40); cholesterol:hdl ratio screen 10.73
[2024-12-02 07:25] VITALS: BP 110/72; PULSE 71; RESP 16; TEMP 36.4; O2SAT 94
[2024-12-02] MEDS: CARBIDOPA/LEVODOPA 1 EACH CAPSULE.ER 4 EACH PO ×2 (08:43→15:09)
--- NOTE | 2024-12-02 11:14 | NEURO.CONS ---
Assessment and Plan: Neuro Assessment/Plan KRISHAN BURNHAM is a 59 M with PD, being evaluated by Teleneurology for headache, left sided tunnelled vision and left sided facial tingling that lasted for couple of hours and now resolved. Also complained of swallowing difficulty for at least a year that is already been worked up as an outpatient. Also complained of joint pains. Symptoms concerning for migraine with aura vs TIA. Recommend ESR,CRP given headache with visual symptoms.Doesn't endorse jaw claudication however does endorse fatigue while chewing however at this point all symptoms resolved.Complete stroke work that include Echo,MRI brain (pending),LDL,HBA1C. Continue with aspirin and statin. I personally attended this patient and spent a total time of 55 minutes evaluating this patient including clinical assessment, review of chart, medical history imaging, and determining appropriate treatment and workup. HPI Consult Data Date of Consult: 12/02/24 HPI Narrative HPI Narrative: KRISHAN BURNHAM, is a 59 M who presents with left sided tunnelled vision along with headache and left facial tingling that lasted for couple of hours. Also complained of joint pains. Symptoms resolved on my evaluation. Also complained of difficulty swallowing that has been going on for last year and has already been worked up as an outpatient. Denies difficulty breathing. [facility] Medical History BMI 34.0-34.9,adult Left ventricular hypertrophy Chronic prescription benzodiazepine use Type 2 diabetes mellitus Testosterone deficiency in male Diverticulosis Sprain and strain of left hand COVID-19 Alternating constipation and diarrhea Wrist pain De Quervain's tenosynovitis, right Cough Cellulitis of right wrist Acute stroke due to ischemia Lupus Wears glasses History of hiatal hernia CPAP (continuous positive airway pressure) dependence Acute cerebrovascular accident (CVA) due to ischemia COVID-19 vaccine series completed Former smoker Hypertension Hyperlipidemia HTN (hypertension) Parkinsons disease GERD (gastroesophageal reflux disease) Constipation Sleep apnea Depression with anxiety Abdominal pain Diverticulitis Home Medications ?Medication ?Instructions ?Recorded ?Last Taken ?Type melatonin 3 mg tablet 9 mg PO QHS SLEEP 05/12/19 03/15/23 History trazodone 100 mg tablet 300 mg PO QHS SLEEP 05/12/19 08/01/23 History famotidine 20 mg tablet 20 mg PO BID GERD 02/17/20 08/02/23 History propranolol 10 mg tablet 10 mg PO BID HYPERTENSION AND 02/16/21 08/02/23 History ANXIETY carbidopa ER 36.25 mg-levodopa 145 4 cap PO 4X/DAY Parkinsons 11/30/21 08/02/23 History mg capsule,extended release (Rytary) cholecalciferol (vitamin D3) 50 50 mcg PO DAILY SUPPLEMENT 11/30/21 08/02/23 History mcg (2,000 unit) tablet diltiazem HCl 60 mg tablet 60 mg PO BID HYPERTENSION/AGINA 11/30/21 03/16/23 History empagliflozin 25 mg tablet 25 mg PO DAILY DIABETES 11/30/21 08/02/23 History (Jardiance) prazosin 5 mg capsule 10 mg PO QHS HYPERTENSION 11/30/21 08/02/23 History duloxetine 60 mg capsule,delayed 120 mg PO DAILY DEPRESSION 03/29/22 08/02/23 History release diclofenac sodium 1 % topical gel 4 g topical BID PRN OSTEOARTHRITIS 03/16/23 Unknown History gabapentin 300 mg capsule 300 mg PO QHS RESTLESS LEG SYNDROME 03/16/23 03/15/23 History sildenafil 100 mg tablet 100 mg PO DAILY PRN sexual activity 03/16/23 Unknown History pantoprazole 40 mg tablet,delayed 40 mg PO QDAY GERD 11/25/24 Unknown History release rosuvastatin 20 mg tablet 20 mg PO QDAY HIGH CHOLESTEROL 11/25/24 Unknown History testosterone cypionate 200 mg/mL 200 mg IM Q2W LOW TESTOSTERONE 11/25/24 Unknown History intramuscular oil (Depo-Testosterone) clonazepam 1 mg tablet (Klonopin) 1 mg PO QHS PANIC DISORDER 12/01/24 Unknown History clopidogrel 75 mg tablet 75 mg PO DAILY STROKE PREVENTION 12/01/24 Unknown History hydrochlorothiazide 12.5 mg capsule 12.5 mg PO DAILY HYPERTENSION 12/01/24 Unknown History quetiapine 25 mg tablet 75 mg PO QHS NIGHT TERRORS 12/01/24 Unknown History Allergy/AdvReac Type Severity Reaction Status Date / Time No Known Allergies Allergy Verified 12/01/24 12:27 Family History (Updated 11/25/24 @ 08:39 by Aisha Mckeon) Mother Heart disease Hypertension High cholesterol Cancer skin cancer Thyroid disorder Diabetes Father Heart disease High cholesterol Hypertension CVA (cerebral vascular accident) Surgical History S/P arthroscopic surgery of left knee History of colectomy (~02/2020) History of laparoscopic cholecystectomy History of appendectomy Social History household members: spouse number of children: 5 current occupational status: unemployed Smoking Status: Former smoker how long ago did patient quit smoking: Quit ~ 15 years prior, smoked socially only. alcohol intake: never substance use type: does not use Vital Signs Vital Signs Vital Signs: 12/01/24 12:26 12/01/24 12:26 12/01/24 12:28 Temperature 98.7 F Temperature Source Oral Pulse Rate 80 80 Pulse Strength Respiratory Rate 16 14 Respiratory Effort Respiratory Depth Respiratory Pattern Blood Pressure 155/90 H 155/90 H Blood Pressure Mean 111 111 Blood Pressure Source Blood Pressure Position Blood Pressure Location Pulse Ox 98 98 Oxygen Delivery Method Room Air Room Air Room Air 12/01/24 12:53 12/01/24 13:16 12/01/24 13:33 Temperature Temperature Source Pulse Rate 75 75 71 Pulse Strength Respiratory Rate 16 14 18 Respiratory Effort Respiratory Depth Respiratory Pattern Blood Pressure 153/83 H 106/74 129/76 H Blood Pressure Mean 106 84 93 Blood Pressure Source Blood Pressure Position Blood Pressure Location Pulse Ox 97 98 97 Oxygen Delivery Method Room Air Room Air Room Air 12/01/24 13:39 12/01/24 14:00 12/01/24 14:22 Temperature 98.2 F Temperature Source Pulse Rate 70 70 Pulse Strength Respiratory Rate 14 14 Respiratory Effort Normal Respiratory Depth Respiratory Pattern Normal Blood Pressure 146/84 H 155/84 H Blood Pressure Mean 104 107 Blood Pressure Source Blood Pressure Position Blood Pressure Location Pulse Ox 98 100 Oxygen Delivery Method Room Air 12/01/24 14:40 12/01/24 15:36 12/01/24 15:48 Temperature 97.9 F Temperature Source Temporal Pulse Rate 63 Pulse Strength Respiratory Rate 16 Respiratory Effort Normal Non-Labored Respiratory Depth Normal Respiratory Pattern Normal Blood Pressure 122/80 H Blood Pressure Mean 94 Blood Pressure Source Monitor Blood Pressure Position Semi-Fowlers Blood Pressure Location Left Arm Pulse Ox 97 94 Oxygen Delivery Method Room Air Nasal Cannula Room Air 12/01/24 18:30 12/01/24 22:00 12/01/24 22:00 Temperature 97.2 F L Temperature Source Temporal Pulse Rate 61 Pulse Strength Normal (2+) Respiratory Rate 15 Respiratory Effort Normal Non-Labored Respiratory Depth Normal Respiratory Pattern Normal Blood Pressure 136/79 H Blood Pressure Mean 98 Blood Pressure Source Monitor Blood Pressure Position Semi-Fowlers Blood Pressure Location Pulse Ox 98 Oxygen Delivery Method Room Air Room Air 12/01/24 22:00 12/02/24 02:00 12/02/24 03:30 Temperature 97.8 F 97.9 F Temperature Source Oral Oral Pulse Rate 65 68 Pulse Strength Respiratory Rate 16 14 Respiratory Effort Normal Non-Labored Respiratory Depth Normal Respiratory Pattern Normal Blood Pressure 128/88 H 113/70 Blood Pressure Mean 101 84 Blood Pressure Source Monitor Monitor Blood Pressure Position Semi-Fowlers Semi-Fowlers Blood Pressure Location Left Arm Left Arm Pulse Ox 97 96 Oxygen Delivery Method Room Air Room Air Room Air 12/02/24 06:00 12/02/24 07:25 12/02/24 07:58 Temperature 97.6 F L 97.5 F L Temperature Source Oral Oral Pulse Rate 68 71 Pulse Strength Respiratory Rate 14 16 Respiratory Effort Normal Non-Labored Respiratory Depth Normal Respiratory Pattern Normal Blood Pressure 101/64 110/72 Blood Pressure Mean 76 84 Blood Pressure Source Monitor Monitor Blood Pressure Position Semi-Fowlers Supine Blood Pressure Location Left Arm Pulse Ox 97 94 Oxygen Delivery Method Room Air Room Air Room Air 12/02/24 08:48 Temperature Temperature Source Pulse Rate Pulse Strength Respiratory Rate Respiratory Effort Respiratory Depth Respiratory Pattern Blood Pressure Blood Pressure Mean Blood Pressure Source Blood Pressure Position Blood Pressure Location Pulse Ox Oxygen Delivery Method Room Air Weight Weight: 105.8 kg Body Mass Index (BMI) 33.5 EEG Results Procedure Details EEG Procedure Details: KRISHAN BURNHAM is a 59 year old M with a past medical history of , who presents for evaluation of Electroencephalogram on DATE at TIME Physical Exam Neuro Neuro Narrative: -? General: Laying comfortably in bed; in no acute distress. -? HENT: Normal oropharynx and mucosa. Normal external appearance of ears and nose. Exophthalmos. -? Neck: Supple, no pain or tenderness -? CV:? No peripheral edema. -? Pulmonary:? Normal respiratory effort. -? Ext: No cyanosis, edema, or deformity -? Skin: No rash. Normal palpation of skin.? -? Musculoskeletal: full range of motion; no joint tenderness. Normal digits and nails by inspection. No clubbing. -? NEURO: -? Mental Status: The patient was alert and oriented to time, place, and person. Normal recent/remote memory, concentration, and general fund of knowledge. -? Language: speech is fluent..? Naming, repetition, fluency, and comprehension intact. -? Cranial Nerves: PERRL 3 mm/brisk. EOMI, visual robles full, no facial asymmetry, facial sensation intact, hearing intact, tongue midline, no evidence of atrophy or fibrillations. As performed by the nurse Sternocleidomastoid and trapezius were equally strong. Soft palate raises equally, no uvular deviations -? Motor: normal bulk, tone, and strength throughout. No pronator drift or satelliting. Upper and lower extremities equal bilaterally. Right upper extremity bradykinesia and tremor noted. -? Tone: is normal and bulk is normal -? Sensation- Intact to light touch bilaterally -? Coordination: No dysmetria on [id number], finger follow finger or [id number]. -? Lab / Micro Data 12/02/24 05:20 12/02/24 05:20 Labs: Laboratory Results - last 24 hr 12/01/24 12:28: b-Hydroxybutyric mmol/L 0.1 12/01/24 12:30: WBC 6.3, RBC 5.32, Hgb 15.7, Hct 43.6, MCV 82.0, MCH 29.5, MCHC 36.0, RDW Std Deviation 38.3, RDW Coeff of Gail 13.2, Plt Count 158, MPV 9.4, Immature Gran % (Auto) 0.200, Neut % (Auto) 62.1, Lymph % (Auto) 25.0, [place] % (Auto) 8.4, Eos % (Auto) 3.7, Baso % (Auto) 0.6, Absolute Neuts (auto) 3.9, Absolute Lymphs (auto) 1.57, Nucleated RBC % 0, PT 12.1, INR 0.9, APTT 26.1, Sodium 135, Potassium 4.3, Chloride 102, Carbon Dioxide 13.0 L, Anion Gap 20 H, BUN 14, Creatinine 1.05, Estim Creat Clear Calc 92.15, Est GFR (MDRD) Non-Af 82, BUN/Creatinine Ratio 13.4, Glucose 178 H, Calcium 9.2, Troponin T High Sens 9 D 12/01/24 14:00: Lactic Acid < 1.0 12/01/24 14:09: Urine Color Yellow, Urine Clarity Clear, Urine pH 5.0, Ur Specific Ferney 1.010, Urine Protein 15 H, Urine Glucose (UA) 1000 H, Urine Ketones 5 H, Urine Occult Blood Negative, Urine Nitrite Negative, Urine Bilirubin Negative, Urine Urobilinogen Normal, Ur Leukocyte Esterase Negative, Urine RBC 0 SEEN, Urine WBC 0 SEEN, Ur Squamous Epith Cells 0 SEEN, Urine Bacteria 0 SEEN, Urine Mucus 0 SEEN 12/01/24 16:51: POC Glucose 118 H 12/01/24 21:54: POC Glucose 123 H 12/02/24 05:20: WBC 5.9, RBC 4.71, Hgb 13.7, Hct 39.8 L, MCV 84.5, MCH 29.1, MCHC 34.4, RDW Std Deviation 39.8, RDW Coeff of Gail 13.1, Plt Count 131 L, MPV 10.0, Immature Gran % (Auto) 0.500, Neut % (Auto) 58.2, Lymph % (Auto) 26.4, [place] % (Auto) 9.6, Eos % (Auto) 4.6, Baso % (Auto) 0.7, Absolute Neuts (auto) 3.5, Absolute Lymphs (auto) 1.56, Nucleated RBC % 0, Sodium 136, Potassium 3.8, Chloride 106, Carbon Dioxide 14.7 L, Anion Gap 15, BUN 16, Creatinine 0.87, Estim Creat Clear Calc 111.36, Est GFR (MDRD) Non-Af 99, BUN/Creatinine Ratio 18.3, Glucose 142 H, Hemoglobin A1c 8.7 H, Calcium 8.5, Triglycerides 1059 H, Cholesterol 236 H, LDL Cholesterol, Calc 2, VLDL Cholesterol 212 H, HDL Cholesterol 22 L, Cholesterol/HDL Ratio 10.73 12/02/24 05:56: POC Glucose 128 H ABG Data ABG results: ABG 12/01/24 14:13 Specimen Type PETER Sample Site Not entered VBG pH 7.46 H VBG pO2 38 VBG HCO3 27 H VBG Total CO2 28 VBG O2 Sat (Calc) 76 H VBG Base Excess 3 POC Mix VBG pCO2 Pt Tmp 37.3 L O2 Delivery Device Not entered Imaging Radiology Impression Brain CT 12/01/24 12:28 IMPRESSION: No acute intracranial abnormality. No evidence of large territorial ischemic infarct. Normal CTA of the head and neck and [id number]. Stroke Alert: No acute intracranial abnormality. No large vessel occlusion. No large territorial infarct. The critical findings in the findings and impression above were relayed directly by me by telephone to Ermias German on 12/01/2024 at 12:58 pm with readback verification. Reading Location: [facility] Head/Neck CTA 12/01/24 12:28 IMPRESSION: No acute intracranial abnormality. No evidence of large territorial ischemic infarct. Normal CTA of the head and neck and [id number]. Stroke Alert: No acute intracranial abnormality. No large vessel occlusion. No large territorial infarct. The critical findings in the findings and impression above were relayed directly by me by telephone to Ermias German on 12/01/2024 at 12:58 pm with readback verification. Reading Location: [facility] Active Medications Active Medications Active Medications: Current Medications Generic Name Dose Route Start Last Admin Trade Name Freq PRN Reason Stop Dose Admin Acetaminophen 650 mg 12/01/24 14:37 Acetaminophen 325 Mg Tablet PO Q6H PRN PRN Pain 1-10 Or Fever >100.7 Albuterol Sulfate 2.5 mg 12/01/24 14:37 Albuterol 2.5 Mg/3 Ml Vial.Neb. INHALATION Q2H PRN PRN SOB &/OR WHEEZING Aspirin 81 mg 12/02/24 08:00 12/02/24 07:59 Aspirin 81 Mg Tab.Chew PO 81 mg BREAKFAST TAN Administration Atorvastatin Calcium 80 mg 12/01/24 22:00 12/01/24 22:40 Atorvastatin Calcium 80 Mg Tablet PO 80 mg QHS TAN Administration Atorvastatin Calcium 40 mg 12/02/24 22:00 Atorvastatin Calcium 40 Mg Tablet PO QHS TAN Carbidopa/Levodopa 4 each 12/01/24 18:00 12/02/24 08:43 Carbidopa/Levodopa 1 Each Capsule.Er PO 4 each 4X/DAY TAN Administration Clonazepam 1 mg 12/01/24 22:00 12/01/24 22:40 Clonazepam 1 Mg Tablet PO 1 mg QHS TAN Administration Clopidogrel Bisulfate 75 mg 12/02/24 10:00 12/02/24 08:43 Clopidogrel Bisulfate 75 Mg Tablet PO 75 mg DAILY TAN Administration Compound Med 2 click 12/01/24 22:00 12/02/24 08:41 Arthritis Pain Compound 60 Click Tube TOPICAL Not Given BID COUNT INCLUDES THE [facility] Protocol Duloxetine HCl 120 mg 12/02/24 10:00 12/02/24 08:42 Duloxetine Hcl 60 Mg Capsule PO 120 mg DAILY TAN Administration Famotidine 20 mg 12/01/24 22:00 12/02/24 08:43 Famotidine 20 Mg Tablet PO 20 mg BID TAN Administration Gabapentin 300 mg 12/01/24 22:00 12/01/24 22:40 Gabapentin 300 Mg Capsule PO 300 mg QHS TAN Administration Glucagon 1 mg 12/01/24 14:37 Glucagon 1 Mg/Ml Syringe IM X1 PRN HYPOGLYCEMIA Protocol Hydralazine HCl 5 mg 12/01/24 14:37 Hydralazine 20 Mg/Ml Vial IV 12/02/24 14:37 Q30M PRN maintain BP parameters with HR <60 Dextrose 250 mls @ 0 mls/hr 12/01/24 14:37 Dextrose 10%-Water IV .Q0M PRN HYPOGLYCEMIA Protocol As Directed Sodium Chloride 250 mls @ 15 mls/hr 12/01/24 15:17 IV .[id number] PRN Saline Flush Sodium Chloride 250 mls @ 15 mls/hr 12/01/24 15:17 IV .[id number] PRN Additional IVPB Infusion Insulin Human Lispro 0 unit 12/01/24 16:00 12/02/24 06:29 Insulin Lispro 100 Unit/Ml Insuln.Pen SC Not Given ACHS TAN Protocol Labetalol HCl 20 mg 12/01/24 12:28 Labetalol 20 Mg/4 Ml Vial IV 12/02/24 12:28 X1 PRN BLOOD PRESSURE Labetalol HCl 10 - 20 mg 12/01/24 14:37 Labetalol 20 Mg/4 Ml Vial IV 12/02/24 14:37 Q10M PRN PRN maintain BP parameters with HR >/=60 Lorazepam 0.5 mg 12/01/24 14:37 Lorazepam 0.5 Mg Tablet PO X1 PRN Anxiety with MRI Melatonin 10 mg 12/01/24 14:37 Melatonin 10 Mg Tablet PO QHS PRN PRN INSOMNIA Ondansetron HCl 4 mg 12/01/24 14:37 12/02/24 08:43 Ondansetron 4 Mg/2 Ml Vial IV 4 mg Q4H PRN PRN Administration NAUSEA/VOMITING Oxycodone HCl 2.5 mg 12/01/24 14:37 Oxycodone 5 Mg Tablet PO Q4H PRN PRN Pain Score 4-10 Pantoprazole Sodium 40 mg 12/01/24 14:37 12/02/24 08:43 Pantoprazole Sodium 40 Mg Tablet PO 40 mg DAILY TAN Administration Prazosin HCl 10 mg 12/01/24 22:00 12/01/24 22:40 Prazosin Hcl 5 Mg Capsule PO 10 mg QHS TAN Administration Propranolol HCl 10 mg 12/01/24 22:00 12/02/24 08:42 Propranolol 10 Mg Tablet PO 10 mg BID TAN Administration Protocol Quetiapine Fumarate 75 mg 12/01/24 22:00 12/01/24 22:40 Quetiapine 25 Mg Tablet PO 75 mg QHS TAN Administration Protocol Senna/Docusate Sodium 2 tablet 12/01/24 14:37 Senna/Docusate Sodium 1 Tablet PO BID PRN PRN Constipation Sodium Chloride 10 - 40 ml 12/01/24 15:17 0.9% Saline Lock 10 Ml Syringe IV UD PRN SALINE FLUSH Trazodone HCl 300 mg 12/01/24 22:00 12/01/24 22:39 Trazodone 100 Mg Tablet PO 300 mg QHS TAN Administration NIHSS NIHSS Nursing Documentation NIHSS Nursing Documentation: NIHSS: Ischemic Stroke/TIA Start: 12/01/24 14:37 Text: For PCU Patients: NIH and Neuro Check every 4 Status: Active hours, PRN and with change in RN caregiver. Freq: [id number] Protocol: Activity Type Activity Date Activity User E-sign Co-sign Detail Recorded Client Recorded Date Recorded By Document 12/02/24 07:25 KG [id number] 12/02/24 07:52 KG 12/02/24 07:25 NIH Stroke Scale [NIHSS] A score of 0 is normal or asymptomatic . Total possible score is 42. Inpatient: RN or Physician to activate a stroke alert for onset of new stroke symptoms or with NIHSS increase >/= 3 points. Following change in neurological status, NIHSS will be performed per physician order or more frequently PRN. -1a. Level of Consciousness 0 - Alert; keenly responsive -1b. LOC Questions 0 - Answers BOTH questions correctly -1c. LOC Commands 0 - Performs BOTH tasks correctly -2. Best Gaze 0 - Normal -3. Visual 0 - No visual loss -4. Facial Palsy 0 - Normal symmetrical movements -5a. Left Arm 0 - No drift; arm holds 90 ( or 45) degrees for full 10 seconds -5b. Right Arm 0 - No drift; arm holds 90 ( or 45) degrees for full 10 seconds -6a. Left Leg 0 - No drift; leg holds 30- degree position for full 5 seconds -6b. Right Leg 0 - No drift; leg holds 30- degree position for full 5 seconds -7. Limb Ataxia 0 - Absent -8. Sensory 0 - Normal; no sensory loss -9. Best Language 0 - No aphasia; normal -10. Dysarthria 1 = Mild-to- moderate dysarthria; -11. Extinction and Inattention 0 - No abnormality -Total 1 Query Text:A score of 0 is normal or asymptomatic. Total possible score is 42 . ED: Notify Physician for NIHSS increase by > / = 3 points. Inpatient: RN or Physician to activate a stroke alert for NIHSS increase of > / = 3 points. Coma Scale [Assess] -Eye Opening Spontaneous -Motor Obeys Commands -Verbal Oriented [Total] -Coma Scale Total 15
[2024-12-02 11:15] VITALS: BP 131/76; PULSE 66; RESP 18; TEMP 36.6; O2SAT 97
[2024-12-02 12:28] VITALS: BMI 33.5
--- NOTE | 2024-12-02 12:45 | CASEMGMT ---
Social Work Per imaging pt negative for stroke, therefore PHQ9 not completed. ANA ROSA Bosch
[2024-12-02 14:41] LABS: CRP < 3.00 mg/L (0.0-3.0)
--- NOTE | 2024-12-02 15:27 | CHAPLAIN ---
Type of Pastoral Visit _x__ Initial Visit ___ Follow-up Visit ___ On-call Visit ___ General Patient Visit ___ Spiritual Assessment ___ Family Conference ___ Bereavement ___ Rapid Response ___ Code Blue ___ Other (describe below) Pastoral Care Referral From _x__ Patient ___ Family ___ Nurse ___ Physician ___ Surveillance Agent ___ Liquid Fertilizer Servicer ___ Other (describe below) Sacrament/Intervention _x__ Active listening ___ Anointing ___ Muslim ___ Bereavement ___ Communion ___ Radha exploration ___ _x__ Life review _x__ Prayer ___ Reconciliation ___ Sacrament of Sick _x__ Supportive presence ___ Wedding ___ Other (describe below) Pastoral Comments patient and spouse are working on lunch together; pt is waiting for test results and gives update on his health needs and the loss of his parents last year in ; pt and family had moved away briefly but have returned to this area; 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
[2024-12-02] MEDS: FLU VACCINE 2025-26(6MOS UP) 45 MCG/0.5 ML SYRINGE IM (15:59)
--- NOTE | 2024-12-02 16:03 | DCINST_ITS ---
Discharge Instructions DC O2, CPAP, BIPAP needs Home O2 Discharge instructions: No Dressing / Incision Discharge Activity: - (Increase activity as tolerated) Follow Up Care Test Results: Test results from this visit will be discussed in further detail at your follow- up appointment, if applicable. Discharge Plan Admission Admit Date/Time: 12/01/24 14:10 Primary Reason for Your Visit: Abnormal neurological symptoms Attending Provider: Temi Katz Primary Care Provider: [facility] Consulting Providers: Nehemiah Metzger; Delores Mcclendon; Lily Smith; Judy Garcia; Liv Rm; Michael Hanna; Jaquelin Sloan; Dylan Tipton; Enrike Ulrich; Moe Herrera; Deya Woodward; Shelia Weathers; Collin Covington; Tracie Houston; John Escalona; Nelda Mason; Figueroa Joshi; Gareth Maya; Jimmie Chavez; Kellen Dunbar; Latricia Gross Instructions Patient Instructions: TIA Dc Additional Instructions / Restrictions: DISCHARGE INSTRUCTIONS PLEASE READ *Please take this with you to your next doctors appointment* -It is recommended that you take an aspirin daily, you indicated that you are not taking Plavix so this has been discontinued off of your medicine list - Advised that you follow-up with your primary care physician regarding your elevated cholesterol and continue to take your rosuvastatin, you also need to continue your Jardiance but will need to follow-up with your primary care doctor regarding your blood sugars still being elevated -Please call upon discharge to schedule a close follow-up with your neurologist -Please call your primary care provider's office upon discharge to schedule a hospital follow up within 1 week. -For any concerning signs or symptoms please call 911 or proceed to the nearest emergency department Discharge Orders/Prescriptions Prescriptions: New aspirin 81 mg Tablet,Chewable 81 mg PO BREAKFAST 30 Days Qty: 30 0RF Continued propranolol 10 mg tablet 10 mg PO BID duloxetine 60 mg capsule,delayed release(DR/EC) 120 mg PO DAILY pantoprazole 40 mg tablet,delayed release (DR/EC) 40 mg PO QDAY testosterone cypionate [Depo-Testosterone] 200 mg/mL oil 200 mg IM Q2W rosuvastatin 20 mg tablet 20 mg PO QDAY melatonin 3 MG tablet 9 mg PO QHS trazodone 100 MG tablet 300 mg PO QHS famotidine 20 MG tablet 20 mg PO BID prazosin 5 mg Capsule 10 mg PO QHS diltiazem HCl 60 mg Tablet 60 mg PO BID cholecalciferol (vitamin D3) 50 mcg (2,000 unit) Tablet 50 mcg PO DAILY Jardiance 25 mg Tablet 25 mg PO DAILY Rytary 36.25-145 mg Capsule, Extended Release 4 cap PO 4X/DAY Rx Instructions: takes at 7am,11am,3pm,7pm DO NOT CRUSH OR CHEW, SWALLOW WHOLE diclofenac sodium 1 % gel 4 g topical BID PRN (Reason: OSTEOARTHRITIS) gabapentin 300 mg capsule 300 mg PO QHS sildenafil 100 mg tablet 100 mg PO DAILY PRN (Reason: sexual activity) hydrochlorothiazide 12.5 mg capsule 12.5 mg PO DAILY Patient Comments: I DON'T TAKE IT BECAUSE IT MAKES ME PEE ALL THE TIME. Rx Instructions: TAKE WITH FOOD quetiapine 25 mg tablet 75 mg PO QHS clonazepam [Klonopin] 1 mg tablet 1 mg PO QHS Rx Instructions: administer 30 minutes before bedtime Discontinued clopidogrel 75 mg tablet 75 mg PO DAILY Patient Comments: NO ONE CAN AGREE UPON WHATEVER SO, I WON'T TAKE IT. HE WAS TRYING TO PUSH DEEP BRAIN STIMULATION, SO I WOULD'VE HAD TO COME OFF OF THAT Referrals / [facility] [Primary Care Provider, None] - Within 1 Week Disposition Disposition (needs filled in before D/C Order can be placed): Home, Self Care
[2024-12-02 16:04] VITALS: BP 141/86; PULSE 73; RESP 18; O2SAT 98
--- NOTE | 2024-12-02 16:05 | PCM.DC.SUM ---
Providers Date of Admission: 12/01/24 Date of Discharge: 12/02/24 Primary Care Physician: [facility] Consultations 12/01/24 14:37 Consult: Tele-Neurology Routine Consulting Provider: [facility] Reason for Consult: Acute Ischemic Stroke/TIA EMERGENT Consult: No MD Notified: Yes Date Notified: 12/01/24 Time Notified: 14:39 Method of Notification: Answering Service Nursing Unit Staff Notify [facility] of Tele-Neurology Consult: Yes Reason For Visit: CVA R/O Diagnosis Discharge Diagnosis (1) Neurologic abnormality: Status: Acute Code(s): R29.818 - Other symptoms and signs involving the nervous system Plan # Left-sided weakness and facial paresthesias- resolved # History of CVA # Parkinson's disease #Type 2 diabetes mellitus #Hypertension #Depression/anxiety #GERD Medications at Discharge Home Medications melatonin 3 mg tablet 9 mg PO QHS SLEEP 05/12/19 trazodone 100 mg tablet 300 mg PO QHS SLEEP 05/12/19 famotidine 20 mg tablet 20 mg PO BID GERD 02/17/20 propranolol 10 mg tablet 10 mg PO BID HYPERTENSION AND ANXIETY 02/16/21 carbidopa ER 36.25 mg-levodopa 145 mg capsule,extended release (Rytary) 4 cap PO 4X/DAY Parkinsons 11/30/21 cholecalciferol (vitamin D3) 50 mcg (2,000 unit) tablet 50 mcg PO DAILY SUPPLEMENT 11/30/21 diltiazem HCl 60 mg tablet 60 mg PO BID HYPERTENSION/AGINA 11/30/21 empagliflozin 25 mg tablet (Jardiance) 25 mg PO DAILY DIABETES 11/30/21 prazosin 5 mg capsule 10 mg PO QHS HYPERTENSION 11/30/21 duloxetine 60 mg capsule,delayed release 120 mg PO DAILY DEPRESSION 03/29/22 diclofenac sodium 1 % topical gel 4 g topical BID PRN OSTEOARTHRITIS 03/16/23 gabapentin 300 mg capsule 300 mg PO QHS RESTLESS LEG SYNDROME 03/16/23 sildenafil 100 mg tablet 100 mg PO DAILY PRN sexual activity 03/16/23 pantoprazole 40 mg tablet,delayed release 40 mg PO QDAY GERD 11/25/24 rosuvastatin 20 mg tablet 20 mg PO QDAY HIGH CHOLESTEROL 11/25/24 testosterone cypionate 200 mg/mL intramuscular oil (Depo-Testosterone) 200 mg IM Q2W LOW TESTOSTERONE 11/25/24 clonazepam 1 mg tablet (Klonopin) 1 mg PO QHS PANIC DISORDER 12/01/24 hydrochlorothiazide 12.5 mg capsule 12.5 mg PO DAILY HYPERTENSION 12/01/24 quetiapine 25 mg tablet 75 mg PO QHS NIGHT TERRORS 12/01/24 aspirin 81 mg chewable tablet 81 mg PO BREAKFAST 30 days #30 tabs 12/02/24 Hospital Course Procedures Transthoracic echo Summary of Care Provided Minutes Spent on Discharge: 33 Hospital Course: Per HPI: KRISHAN BURNHAM, is a 59-year-old male history of GERD, Parkinson's, hypertension, diabetes, CVA, depression and anxiety who presented [facility] ED 12/01/2024 due to waking up with left neck pain, left-sided tunnel vision, left-sided weakness and pain with swallowing. Stroke call made in the ED. Temp 98.7, heart rate of 80, blood pressure 155/98, respirate 16 pulse ox 98% on room air. CBC unremarkable, troponin 9, BMP with bicarb of 13 and a gap of 20 with glucose 178 otherwise within normal limits CT brain and CT head and neck no acute process, teleneurology evaluated and recommended admission for stroke rule out. Hospitalist contacted for admission. Patient evaluated at bedside. Pt reportedly woke up this AM with a right sided headache, left eye tunnel vision, whole left half of his face with tingling as well as reported weakness of left upper and lower extremity but primarily was reporting increase in joint pain in all of the joints on his left side. Additionally he reported some increased difficulty swallowing, has had difficulty swallowing recently and is supposed to undergo an outpatient swallow eval but said this morning he noticed it was worse. Presently in the ED still has slight headache and reports all of the symptoms are better than they were but still present. Denies fevers or chills, does have chronic abdominal pain with intermittent diarrhea and constipation and some nausea for which she is scheduled to undergo outpatient colonoscopy and upper endoscopy. Interval history: Patient's symptoms completely resolved overnight, MRI negative for CVA. Neurology evaluated and is unclear if patient had TIA versus migraine with aura, aspirin and statin recommended and it is recommended the patient follow-up with his neurologist. Patient had echo ordered on presentation however was unable to be done this morning, when they returned to do it in the afternoon patient refused and requested discharge, patient has had a previous negative bubble study, has no new cardiac complaints or other compelling indication for emergent repeat echocardiogram, given stability and patient's willingness to follow closely with his neurologist on discharge feel it is reasonable to discharge patient and advise to take aspirin, statin, and follow-up with neurology. Patient with no new or acute complaints on day of discharge, neurologic symptoms completely resolved aside from occasional difficulty with swallowing which is chronic and he is already scheduled for outpatient workup. Discussed his home Plavix which she has not been taking, he notes his neurologist told him to take aspirin but another doctor told him Plavix so he has been taking neither, or teleneurology also recommended aspirin and statin, discussed with patient he is agreeable to taking aspirin. Discharge instructions as follows: -It is recommended that you take an aspirin daily, you indicated that you are not taking Plavix so this has been discontinued off of your medicine list - Advised that you follow-up with your primary care physician regarding your elevated cholesterol and continue to take your rosuvastatin, you also need to continue your Jardiance but will need to follow-up with your primary care doctor regarding your blood sugars still being elevated -Please call upon discharge to schedule a close follow-up with your neurologist -Please call your primary care provider's office upon discharge to schedule a hospital follow up within 1 week. -For any concerning signs or symptoms please call 911 or proceed to the nearest emergency department Physical Exam Narrative General: Alert, oriented, no apparent distress HEENT: Atraumatic, normocephalic Eyes: Anicteric, normal conjunctiva, extraocular movements grossly intact Neck: Supple Respiratory: normal respiratory effort Cardiovascular: Regular rate and rhythm GI: Nondistended Extremities: No significant pitting edema Musculoskeletal: Moving all extremities symmetrically, 5 out of 5 strength in bilateral lower extremities Neuro: No overt focal neurological deficits Skin: No rashes appreciated Psych: Overall cooperative Weight / BMI Weight Weight: 105.8 kg Body Mass Index (BMI) 33.5 ABG / Lab / Microbiology Data 12/02/24 05:20 12/02/24 05:20 Laboratory: Laboratory Results - last 24 hr 12/01/24 16:51: POC Glucose 118 H 12/01/24 21:54: POC Glucose 123 H 12/02/24 05:20: WBC 5.9, RBC 4.71, Hgb 13.7, Hct 39.8 L, MCV 84.5, MCH 29.1, MCHC 34.4, RDW Std Deviation 39.8, RDW Coeff of Gail 13.1, Plt Count 131 L, MPV 10.0, Immature Gran % (Auto) 0.500, Neut % (Auto) 58.2, Lymph % (Auto) 26.4, Whitley % (Auto) 9.6, Eos % (Auto) 4.6, Baso % (Auto) 0.7, Absolute Neuts (auto) 3.5, Absolute Lymphs (auto) 1.56, Nucleated RBC % 0, Sodium 136, Potassium 3.8, Chloride 106, Carbon Dioxide 14.7 L, Anion Gap 15, BUN 16, Creatinine 0.87, Estim Creat Clear Calc 111.36, Est GFR (MDRD) Non-Af 99, BUN/Creatinine Ratio 18.3, Glucose 142 H, Hemoglobin A1c 8.7 H, Calcium 8.5, C-React Prot Ext Range < 3.00, Triglycerides 1059 H, Cholesterol 236 H, LDL Cholesterol, Calc 2, VLDL Cholesterol 212 H, HDL Cholesterol 22 L, Cholesterol/HDL Ratio 10.73 12/02/24 05:56: POC Glucose 128 H 12/02/24 12:20: POC Glucose 165 H 12/02/24 15:13: ESR 3 Radiography Diagnostic Testing: Radiology Impression Brain MRI 12/01/24 14:27 IMPRESSION: 1. No evidence of intracranial pathology. 2. Pansinusitis with bilateral maxillary mucoceles. 3. Status post FESS as described. Reading Location: [id number] D/C Instructions DC O2, CPAP, BIPAP Needs Home O2 Discharge instructions: No Meaningful Use Info Meaningful Use Meaningful Use Diagnoses (Choose all that apply): None applicable Discharge Plan Admission Admit Date/Time: 12/01/24 14:10 Primary Reason for Your Visit: Abnormal neurological symptoms Attending Provider: Temi Katz Primary Care Provider: [facility] Consulting Providers: Nehemiah Metzger; Delores Mcclendon; Lily Smith; Judy Garcia; Liv Rm; Michael Hnana; Jaquelin Sloan; Dylan Tipton; Enrike Ulrich; Moe Herrera; Deya Woodward; Shelia Weathers; Collin Covington; Tracie Houston; John Escalona; Nelda Ayala; Figueroa Joshi; Gareth Maya; Jimmie Chavez; Kellen Dunbar; Latricia Gross Instructions Patient Instructions: TIA Dc Additional Instructions / Restrictions: DISCHARGE INSTRUCTIONS PLEASE READ *Please take this with you to your next doctors appointment* -It is recommended that you take an aspirin daily, you indicated that you are not taking Plavix so this has been discontinued off of your medicine list - Advised that you follow-up with your primary care physician regarding your elevated cholesterol and continue to take your rosuvastatin, you also need to continue your Jardiance but will need to follow-up with your primary care doctor regarding your blood sugars still being elevated -Please call upon discharge to schedule a close follow-up with your neurologist -Please call your primary care provider's office upon discharge to schedule a hospital follow up within 1 week. -For any concerning signs or symptoms please call 911 or proceed to the nearest emergency department Discharge Orders/Prescriptions Prescriptions: New aspirin 81 mg Tablet,Chewable 81 mg PO BREAKFAST 30 Days Qty: 30 0RF Continued propranolol 10 mg tablet 10 mg PO BID duloxetine 60 mg capsule,delayed release(DR/EC) 120 mg PO DAILY pantoprazole 40 mg tablet,delayed release (DR/EC) 40 mg PO QDAY testosterone cypionate [Depo-Testosterone] 200 mg/mL oil 200 mg IM Q2W rosuvastatin 20 mg tablet 20 mg PO QDAY melatonin 3 MG tablet 9 mg PO QHS trazodone 100 MG tablet 300 mg PO QHS famotidine 20 MG tablet 20 mg PO BID prazosin 5 mg Capsule 10 mg PO QHS diltiazem HCl 60 mg Tablet 60 mg PO BID cholecalciferol (vitamin D3) 50 mcg (2,000 unit) Tablet 50 mcg PO DAILY Jardiance 25 mg Tablet 25 mg PO DAILY Rytary 36.25-145 mg Capsule, Extended Release 4 cap PO 4X/DAY Rx Instructions: takes at 7am,11am,3pm,7pm DO NOT CRUSH OR CHEW, SWALLOW WHOLE diclofenac sodium 1 % gel 4 g topical BID PRN (Reason: OSTEOARTHRITIS) gabapentin 300 mg capsule 300 mg PO QHS sildenafil 100 mg tablet 100 mg PO DAILY PRN (Reason: sexual activity) hydrochlorothiazide 12.5 mg capsule 12.5 mg PO DAILY Patient Comments: I DON'T TAKE IT BECAUSE IT MAKES ME PEE ALL THE TIME. Rx Instructions: TAKE WITH FOOD quetiapine 25 mg tablet 75 mg PO QHS clonazepam [Klonopin] 1 mg tablet 1 mg PO QHS Rx Instructions: administer 30 minutes before bedtime Discontinued clopidogrel 75 mg tablet 75 mg PO DAILY Patient Comments: NO ONE CAN AGREE UPON WHATEVER SO, I WON'T TAKE IT. HE WAS TRYING TO PUSH DEEP BRAIN STIMULATION, SO I WOULD'VE HAD TO COME OFF OF THAT Referrals [facility] [Primary Care Provider, None] - Within 1 Week Disposition Disposition (needs filled in before D/C Order can be placed): Home, Self Care Charges/Coding Visit Charges Inpatient E&M: 17266 Disch Hosp >30min
--- NOTE | 2024-12-02 16:15 | PHA.DC.MC.R ---
Pharmacy [facility] Counseling Pharmacy Service has performed discharge medication reconciliation and counseling for this patient. The patient's discharge medication list was reviewed for discrepancies and discrepancies were resolved. The patient was counseled on the following discharge medications and changes in medications for homegoing were reviewed. The Reason for Use, instructions for use, and potential side effects were reviewed for all new medications. The patient's questions regarding all of their medications were answered. 1. Aspirin 81 mg PO daily The patient was able to verbally demonstrate an understanding of their discharge medications. Medications at Discharge Home Medications melatonin 3 mg tablet 9 mg PO QHS SLEEP 05/12/19 trazodone 100 mg tablet 300 mg PO QHS SLEEP 05/12/19 famotidine 20 mg tablet 20 mg PO BID GERD 02/17/20 propranolol 10 mg tablet 10 mg PO BID HYPERTENSION AND ANXIETY 02/16/21 carbidopa ER 36.25 mg-levodopa 145 mg capsule,extended release (Rytary) 4 cap PO 4X/DAY Parkinsons 11/30/21 cholecalciferol (vitamin D3) 50 mcg (2,000 unit) tablet 50 mcg PO DAILY SUPPLEMENT 11/30/21 diltiazem HCl 60 mg tablet 60 mg PO BID HYPERTENSION/AGINA 11/30/21 empagliflozin 25 mg tablet (Jardiance) 25 mg PO DAILY DIABETES 11/30/21 prazosin 5 mg capsule 10 mg PO QHS HYPERTENSION 11/30/21 duloxetine 60 mg capsule,delayed release 120 mg PO DAILY DEPRESSION 03/29/22 diclofenac sodium 1 % topical gel 4 g topical BID PRN OSTEOARTHRITIS 03/16/23 gabapentin 300 mg capsule 300 mg PO QHS RESTLESS LEG SYNDROME 03/16/23 sildenafil 100 mg tablet 100 mg PO DAILY PRN sexual activity 03/16/23 pantoprazole 40 mg tablet,delayed release 40 mg PO QDAY GERD 11/25/24 rosuvastatin 20 mg tablet 20 mg PO QDAY HIGH CHOLESTEROL 11/25/24 testosterone cypionate 200 mg/mL intramuscular oil (Depo-Testosterone) 200 mg IM Q2W LOW TESTOSTERONE 11/25/24 clonazepam 1 mg tablet (Klonopin) 1 mg PO QHS PANIC DISORDER 12/01/24 hydrochlorothiazide 12.5 mg capsule 12.5 mg PO DAILY HYPERTENSION 12/01/24 quetiapine 25 mg tablet 75 mg PO QHS NIGHT TERRORS 12/01/24 aspirin 81 mg chewable tablet 81 mg PO BREAKFAST 30 days #30 tabs 12/02/24
== END 2024-12-02 16:16 | disposition home or self-care (01) ==
LOC: ED 14:17 → PCU 14:19
PROVIDERS: Admitting Provider Internal Medicine; Emergency Provider Emergency Medicine; Visit Provider Internal Medicine
DX: R29.818 Other symptoms and signs involving the nervous system (principal); G20.A1 Parkinson's disease without dyskinesia, without mention of fluctuations; E11.9 Type 2 diabetes mellitus without complications; Z87.891 Personal history of nicotine dependence; I10 Essential (primary) hypertension; E78.5 Hyperlipidemia, unspecified; Z82.49 Family history of ischemic heart disease and other diseases of the circulatory system; R13.10 Dysphagia, unspecified; R47.9 Unspecified speech disturbances; K21.9 Gastro-esophageal reflux disease without esophagitis; Z79.84 Long term (current) use of oral hypoglycemic drugs; F41.8 Other specified anxiety disorders; Z79.82 Long term (current) use of aspirin; R20.2 Paresthesia of skin; Z79.899 Other long term (current) drug therapy; G47.30 Sleep apnea, unspecified; Z79.02 Long term (current) use of antithrombotics/antiplatelets
CPT/HCPCS: 36415; 70450; 70496; 70498; 70551; 80048; 80061; 81001; 82010; 82803; 82962; 83036; 83605; 84484; 85025; 85610; 85652; 85730; 86140; 92610; 93005; 94762; 96361; 96374; 96375; 97161; 97165; 97802; 99221; 99285; Q9967; A4216; G0378; J2405

== ENCOUNTER 2025-02-11 06:46 | Day surgery (SDC) | payer OTHER, SELFPAY ==
--- NOTE | 2025-02-10 22:00 | PAT.ANE_ITS ---
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 When Was Last Pacemaker Check QUESTION #4 FULL TEXT: You/Your Family Experience fever (hyperthermia) with Anesthesia Last Oral Intake Last Oral intake: Last Oral Intake NPO since Meds taken in AM with sips of water? Meds patient instructed to take am of surgery PONV PONV - cloud security architect: PONV - cloud security architect Female No 02/10/25 10:51 HX of Motion Sickness No 02/10/25 10:51 HX of N/V After Surgery No 02/10/25 10:51 Non-Smoker Yes 02/10/25 10:51 Duration of Surgery greater No 02/10/25 10:51 than 60 minutes Number of Risk Factors 1 02/10/25 10:51 PONV Score Low Risk 02/10/25 10:51 Height & Weight Height & Weight: Anesthesia: Height & Weight Height 5 ft 10 in 12/02/24 11:46 Respiratory Assessment Respiratory Assessment - cloud security architect: Respiratory Tract Infection Hx - cloud security architect Hx Respiratory Tract Infection No 02/10/25 10:51 STOP Sleep Apnea STOP Sleep Apnea - cloud security architect: STOP Sleep Apnea - cloud security architect Hx Hypertension Yes: PER PT, CONTROLLED ON 02/10/25 10:51 MEDS Hx Sleep Apnea Yes 02/10/25 10:51 CPAP Yes 02/10/25 10:51 BIPAP No 02/10/25 10:51 Do you snore loudly (louder than talking or can be heard Do you often feel tired/ fatigued/ sleepy during daytime? Has anyone observed you stop breathing during sleep? STOP Results Positive 02/10/25 10:51 QUESTION #5 FULL TEXT : Do you snore loudly (louder than talking or can be heard through closed doors)? 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 Specify any problems Hx of Preganancy in last 3 N/A 02/10/25 10:51 Months Nurse Filling Out Transfusion DSCHRIBER 02/10/25 10:51 & Questions: Date: 02/10/25 02/10/25 10:51 Time: 10:52 02/10/25 10:51 Patient unable to answer at this time (ie. confused, unrespo /Reproduction History /Reproductive History - cloud security architect: /Reproductive Hx- cloud security architect Hx Now No 02/10/25 10:51 Gestational Age (in weeks): EDC: Hx Hx Para Hx Section SAB No 02/10/25 10:51 Does the father of the baby or his family experience fever w Father of the baby Malignant Hypertension history comment [facility] Medical History (Updated 02/10/25 @ 11:02 by Tabby Vila) Restless legs Diabetes Migraine headache Wears hearing aid Depression Anxiety Arthritis Fatty liver History of diverticulitis PONV (postoperative nausea and vomiting) Hypertension History of stress test History of echocardiogram Cardiology follow-up encounter Testosterone deficiency in male Lupus Wears glasses History of hiatal hernia CPAP (continuous positive airway pressure) dependence Former smoker Parkinsons disease Home Medications ?Medication ?Instructions ?Recorded ?Last Taken ?Type melatonin 3 mg tablet 9 mg PO QHS SLEEP 05/12/19 0 03/15/23 History trazodone 100 mg tablet 200 mg PO QHS SLEEP 05/12/19 08/01/23 History famotidine 20 mg tablet 20 mg PO BID GERD 02/17/20 0 08/02/23 History propranolol 10 mg tablet 10 mg PO BID HYPERTENSION AN D 02/16/21 08/02/23 History ANXIETY carbidopa ER 36.25 mg-levodopa 145 4 cap PO 4X/DAY Par kinsons 11/30/21 08/02/23 History mg capsule,extended release (Rytary) cholecalciferol (vitamin D3) 50 50 mcg PO DAILY SUPPLE MENT 11/30/21 08/02/23 History mcg (2,000 unit) tablet diltiazem HCl 60 mg tablet 60 mg PO BID HYPERTENSION/A DARRYL 11/30/21 03/16/23 History empagliflozin 25 mg tablet 25 mg PO DAILY DIABETES 06/1802/06/25 History (Jardiance) prazosin 5 mg capsule 10 mg PO QHS HYPERTENSION 08/02/23 History duloxetine 60 mg capsule,delayed 120 mg PO DAILY DEPRE SSION 03/29/22 08/02/23 History release diclofenac sodium 1 % topical gel 4 g topical BID PRN OSTEOARTHRITIS 03/16/23 Unknown History gabapentin 300 mg capsule 300 mg PO QHS RESTLESS LEG S YNDROME 03/16/23 03/15/23 History sildenafil 100 mg tablet 100 mg PO DAILY PRN sexual a ctivity 03/16/23 Unknown History pantoprazole 40 mg tablet,delayed 40 mg PO QDAY GERD 0 11/25/24 Unknown History release rosuvastatin 20 mg tablet 20 mg PO QHS HIGH CHOLESTERO L 11/25/24 Unknown History testosterone cypionate 200 mg/mL 200 mg IM Q2W LOW PARAM TOSTERONE 11/25/24 Unknown History intramuscular oil (Depo-Testosterone) clonazepam 1 mg tablet (Klonopin) 1 mg PO QHS PANIC DI SORDER 12/01/24 Unknown History quetiapine 25 mg tablet 75 mg PO QHS NIGHT TERRORS 1 Unknown History aspirin 81 mg chewable tablet 81 mg PO BREAKFAST 30 da ys #30 tabs 12/02/24 02/06/25 Rx ubrogepant 100 mg tablet (Ubrelvy) 100 mg PO DAILY PRN PRN MIGRAINES 02/10/25 Unknown History Allergy/AdvReac Type Severity Reaction Status Date / Time No Known Allergies Allergy Verified 02/10/25 10:48 Family History (Updated 11/25/24 @ 08:39 by Aisha Mckeon) Mother Heart disease Hypertension High cholesterol Cancer skin cancer Thyroid disorder Diabetes Father Heart disease High cholesterol Hypertension CVA (cerebral vascular accident) Surgical History (Updated 12/06/24 @ 09:17 by Sommer Kohli) History of cardiac catheterization History of esophagogastroduodenoscopy (EGD) History of colonoscopy S/P arthroscopic surgery of left knee History of colectomy (~02/2020) History of laparoscopic cholecystectomy History of appendectomy Social History household members: spouse number of children: 5 current occupational status: unemployed Smoking Status: Former smoker how long ago did patient quit smoking: Quit ~ 15 years prior, smoked socially only. alcohol intake: never substance use type: does not use Audit: Pertinent Findings Pertinent Findings EKG Perinent findings: 12/01/2024. Normal sinus rhythm. Stress test pertinent findings: 03/17/2023. EF is 61%. No evidence of reversible myocardial ischemia. Echo (EF%) pertinent findings: 07/31/2023. EF of 60%. PASP is 20 mmHg. No aortic stenosis noted. Heart catheterization pertinent findings: 03/20/2023. Normal coronary arteries. Normal LV size, wall motion and systolic function. Additional pertinent findings: 25-day event monitor. 12/08/2021. Baseline rhythm was sinus rhythm. 1 stable event with sinus rhythm. Recommendation Anesthesia Recommendation Anesthesia recommendation: OPTIMIZED for anesthesia
[2025-02-11] VITALS (9 sets, daily range): BP systolic 91–119; BP diastolic 70–77; PULSE 58–84; RESP 12–18; TEMP 36–36.2; O2SAT 92–97; BMI 33.2
--- NOTE | 2025-02-11 06:48 | PRE.ANES_ITS ---
ASA Classification* ASA Classification ASA Classification: 2 Assessment & Plan Anesthesia* Anesthesia Assessment Anesthesia Assessment: Discussed sedation and/or anesthesia options, risks, benefits, and alternatives with patient/parents/legal guardian/POA. Questions invited. The patient/parents/legal guardian/POA seems to understand and agrees to proceed with anesthesia plan. Reviewed the physical assessment, medical history, allergy history and patient home medications list prior to surgery/procedure/anesthetic and documented any changes. Performed airway and anesthesia risk assessments. Anesthesia Type Anesthesia Type: MAC Anesthesia Focused Assessment* Airway Assessment Mouth opens: >3 cm Mallampati Score: II Labs Anesthesia Preop lab: CBC WBC, (4.4-11.0) 5.9 K/mm3 12/02/24, 05:20 RBC, (4.6-6.2) 4.71 M/mm3 12/02/24, 05:20 Hgb, (13.0-16.5) 13.7 g/dL 12/02/24, 05:20 Hct, (40-54) 39.8 % L 12/02/24, 05:20 Plt Count, (150-450) 131 K/mm3 L 12/02/24, 05:20 CHEMISTRY Potassium, (3.3-5.1) 3.8 mmol/L 12/02/24, 05:20 Sodium, (133-145) 136 mmol/L 12/02/24, 05:20 Magnesium, (1.6-2.6) 2.3 mg/dL 08/03/23, 05:01 Phosphorus, (2.5-4.9) 4.3 mg/dL 08/03/23, 05:01 BUN, (4-19) 16 mg/dL 12/02/24, 05:20 Creatinine, (0.70-1.20) 0.87 mg/dL 12/02/24, 05:20 Glucose, (70-99) 142 mg/dL H 12/02/24, 05:20 POC Glucose, (74-106) 165 mg/dL H 12/02/24, 12:20 TSH, (0.358-3.74) 2.31 uIU/mL 07/31/23, 03:40 COAG PT, (11.7-14.9) 12.1 SECONDS 12/01/24, 12:30 Pre-Assessment Diagnosis/Proposed Procedure Planned Operative Procedure(s): CSCOPE EGD Anesthesia History 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 When Was Last Pacemaker Check QUESTION #4 FULL TEXT: You/Your Family Experience fever (hyperthermia) with Anesthesia Last Oral Intake Last Oral intake: Last Oral Intake NPO since Meds taken in AM with sips of water? Meds patient instructed to take am of surgery PONV PONV - weatherization technician: PONV - weatherization technician Female No 02/10/25 10:51 HX of Motion Sickness No 02/10/25 10:51 HX of N/V After Surgery No 02/10/25 10:51 Non-Smoker Yes 02/10/25 10:51 Duration of Surgery greater No 02/10/25 10:51 than 60 minutes Number of Risk Factors 1 02/10/25 10:51 PONV Score Low Risk 02/10/25 10:51 Height & Weight Height & Weight: Anesthesia: Height & Weight Height 5 ft 10 in 12/02/24 11:46 Respiratory Assessment Respiratory Assessment - weatherization technician: Respiratory Tract Infection Hx - weatherization technician Hx Respiratory Tract Infection No 02/10/25 10:51 STOP Sleep Apnea STOP Sleep Apnea - weatherization technician: STOP Sleep Apnea - weatherization technician Hx Hypertension Yes: PER PT, CONTROLLED ON 02/10/25 10:51 MEDS Hx Sleep Apnea Yes 02/10/25 10:51 CPAP Yes 02/10/25 10:51 BIPAP No 02/10/25 10:51 Do you snore loudly (louder than talking or can be heard Do you often feel tired/ fatigued/ sleepy during daytime? Has anyone observed you stop breathing during sleep? STOP Results Positive 02/10/25 10:51 QUESTION #5 FULL TEXT : Do you snore loudly (louder than talking or can be heard through closed doors)? 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 Specify any problems Hx of Preganancy in last 3 N/A 02/10/25 10:51 Months Nurse Filling Out Transfusion DSCHRIBER 02/10/25 10:51 & Questions: Date: 02/10/25 02/10/25 10:51 Time: 10:52 02/10/25 10:51 Patient unable to answer at this time (ie. confused, unrespo /Reproduction History /Reproductive History - weatherization technician: /Reproductive Hx- weatherization technician Hx Now No 02/10/25 10:51 Gestational Age (in weeks): EDC: Hx Hx Para Hx Section SAB No 02/10/25 10:51 Does the father of the baby or his family experience fever w Father of the baby Malignant Hypertension history comment PFSH Medical History Restless legs Diabetes Migraine headache Wears hearing aid Depression Anxiety Arthritis Fatty liver History of diverticulitis PONV (postoperative nausea and vomiting) Hypertension History of stress test History of echocardiogram Cardiology follow-up encounter Testosterone deficiency in male Lupus Wears glasses History of hiatal hernia CPAP (continuous positive airway pressure) dependence Former smoker Parkinsons disease Home Medications ?Medication ?Instructions ?Recorded ?Last Taken ?Type melatonin 3 mg tablet 9 mg PO QHS SLEEP 05/12/19 0 03/15/23 History trazodone 100 mg tablet 200 mg PO QHS SLEEP 05/12/19 08/01/23 History famotidine 20 mg tablet 20 mg PO BID GERD 02/17/20 0 08/02/23 History propranolol 10 mg tablet 10 mg PO BID HYPERTENSION AN D 02/16/21 08/02/23 History ANXIETY carbidopa ER 36.25 mg-levodopa 145 4 cap PO 4X/DAY Par kinsons 11/30/21 08/02/23 History mg capsule,extended release (Rytary) cholecalciferol (vitamin D3) 50 50 mcg PO DAILY SUPPLE MENT 11/30/21 08/02/23 History mcg (2,000 unit) tablet diltiazem HCl 60 mg tablet 60 mg PO BID HYPERTENSION/A DARRYL 11/30/21 03/16/23 History empagliflozin 25 mg tablet 25 mg PO DAILY DIABETES 06/1802/06/25 History (Jardiance) prazosin 5 mg capsule 10 mg PO QHS HYPERTENSION 08/02/23 History duloxetine 60 mg capsule,delayed 120 mg PO DAILY DEPRE SSION 03/29/22 08/02/23 History release diclofenac sodium 1 % topical gel 4 g topical BID PRN OSTEOARTHRITIS 03/16/23 Unknown History gabapentin 300 mg capsule 300 mg PO QHS RESTLESS LEG S YNDROME 03/16/23 03/15/23 History sildenafil 100 mg tablet 100 mg PO DAILY PRN sexual a ctivity 03/16/23 Unknown History pantoprazole 40 mg tablet,delayed 40 mg PO QDAY GERD 0 11/25/24 Unknown History release rosuvastatin 20 mg tablet 20 mg PO QHS HIGH CHOLESTERO L 11/25/24 Unknown History testosterone cypionate 200 mg/mL 200 mg IM Q2W LOW PARAM TOSTERONE 11/25/24 Unknown History intramuscular oil (Depo-Testosterone) clonazepam 1 mg tablet (Klonopin) 1 mg PO QHS PANIC DI SORDER 12/01/24 Unknown History quetiapine 25 mg tablet 75 mg PO QHS NIGHT TERRORS 1 Unknown History aspirin 81 mg chewable tablet 81 mg PO BREAKFAST 30 da ys #30 tabs 12/02/24 02/06/25 Rx ubrogepant 100 mg tablet (Ubrelvy) 100 mg PO DAILY PRN PRN MIGRAINES 02/10/25 Unknown History Allergy/AdvReac Type Severity Reaction Status Date / Time No Known Allergies Allergy Verified 02/10/25 10:48 Family History Mother Heart disease Hypertension High cholesterol Cancer skin cancer Thyroid disorder Diabetes Father Heart disease High cholesterol Hypertension CVA (cerebral vascular accident) Surgical History History of cardiac catheterization History of esophagogastroduodenoscopy (EGD) History of colonoscopy S/P arthroscopic surgery of left knee History of colectomy (~02/2020) History of laparoscopic cholecystectomy History of appendectomy Social History household members: spouse number of children: 5 current occupational status: unemployed Smoking Status: Former smoker how long ago did patient quit smoking: Quit ~ 15 years prior, smoked socially only. alcohol intake: never substance use type: does not use Review of Systems (Anesthesia) ROS Narrative System reviewed and no additional complaints, except as documented.
--- NOTE | 2025-02-11 06:52 | PCM.HP.BLA ---
History and Physical Date of Admission: 02/11/25 Intake Vital Signs 10/27/2513:51 11/26/2507:39 Height 5 ft 11 in 5 ft 11 in Weight: 239 lb BMI 33.3 BP 120/77 Blood Pressure Location Rt brachial Position Sitting Respiration 17 Pulse 66 Pulse Source Monitor Pulse Oximetry (%) 97 Oxygen Delivery Method room air Intake Visit Reasons: COLONOSCOPY Chief Complaint: colonoscopy Is patient in pain?: No Allergies No Known Allergies Allergy (Verified 11/25/24 08:40) Medications ?Medication ?Instructions ?Recorded ?Confirmed ?Type melatonin 3 mg tablet 9 mg PO QHS SLEEP 05/12/19 11/25/24 History trazodone 100 mg tablet 200 mg PO QHS SLEEP 05/12/19 11/25/24 History famotidine 20 mg tablet 20 mg PO BID GERD 02/17/20 11/25/24 History propranolol 10 mg tablet 10 mg PO BID HYPERTENSION 02/16/21 11/25/24 History carbidopa ER 36.25 mg-levodopa 145 4 cap PO 4X/DAY Parkinsons 11/30/21 11/25/24 History mg capsule,extended release (Rytary) cholecalciferol (vitamin D3) 50 50 mcg PO DAILY SUPPLEMENT 11/30/21 11/25/24 History mcg (2,000 unit) tablet diltiazem HCl 60 mg tablet 60 mg PO BID HYPERTENSION/AGINA 11/30/21 11/25/24 History empagliflozin 25 mg tablet 12.5 mg PO DAILY DIABETES 11/30/21 11/25/24 History (Jardiance) prazosin 5 mg capsule 10 mg PO QHS HYPERTENSION 11/30/21 11/25/24 History duloxetine 60 mg capsule,delayed 120 mg PO DAILY DEPRESSION 03/29/22 11/25/24 History release clonazepam 0.5 mg tablet 0.5 mg PO QHS PANIC ATTACKS 03/16/23 11/25/24 History diclofenac sodium 1 % topical gel 4 g topical BID PRN OSTEOARTHRITIS 03/16/23 08/02/23 History gabapentin 300 mg capsule 300 mg PO QHS RESTLESS LEG SYNDROME 03/16/23 11/25/24 History sildenafil 100 mg tablet 100 mg PO DAILY PRN sexual activity 03/16/23 11/25/24 History pantoprazole 40 mg tablet,delayed 40 mg PO QDAY 11/25/24 11/25/24 History release rosuvastatin 20 mg tablet 20 mg PO QDAY 11/25/24 11/25/24 History testosterone cypionate 200 mg/mL 200 mg IM Q2W 11/25/24 11/25/24 History intramuscular oil (Depo-Testosterone) [facility] Medical History BMI 34.0-34.9,adult Left ventricular hypertrophy Chronic prescription benzodiazepine use Type 2 diabetes mellitus Testosterone deficiency in male Diverticulosis Sprain and strain of left hand COVID-19 Alternating constipation and diarrhea Wrist pain De Quervain's tenosynovitis, right Cough Cellulitis of right wrist Acute stroke due to ischemia Lupus Wears glasses History of hiatal hernia CPAP (continuous positive airway pressure) dependence Acute cerebrovascular accident (CVA) due to ischemia COVID-19 vaccine series completed Former smoker Hypertension Hyperlipidemia HTN (hypertension) Parkinsons disease GERD (gastroesophageal reflux disease) Constipation Sleep apnea Depression with anxiety Abdominal pain Diverticulitis Surgical History S/P arthroscopic surgery of left knee History of colectomy (~02/2020) History of laparoscopic cholecystectomy History of appendectomy Family History (Updated 11/25/24 @ 08:39 by Aisha Mckeon) Mother Heart disease Hypertension High cholesterol Cancer skin cancer Thyroid disorder Diabetes Father Heart disease High cholesterol Hypertension CVA (cerebral vascular accident) Social History household members: spouse number of children: 5 current occupational status: unemployed Smoking Status: Former smoker how long ago did patient quit smoking: Quit ~ 15 years prior, smoked socially only. alcohol intake: never substance use type: does not use HPI HPI HPI: Patient is a 59-year-old male here with 2 issues. First he is having melanotic stools occasionally. He reports they are foul-smelling and he reports that he is having bloating and diarrhea after eating. He is on omeprazole and famotidine. He also reports he is having difficulty swallowing with food getting stuck in his esophagus. He is also having left lower quadrant pain that has been chronic since his colectomy 3 years ago. He reports normal stools except for the melena. ROS General General: Yes fatigue; No weight change, appetite, colon cancer, breast cancer or weakness HEENT HEENT: Yes difficulty swallowing; No eye injury, eye surgery, swollen glands or hoarseness Endo Endocrine: Yes diabetes mellitus; No thyroid disease, thyroid cancer, Hair loss, heat intolerance or cold intolerance Skin Skin: No rash or changing moles Musc Musculoskeletal: No back problems, arthritis, rheumatoid arthritis, gout or joint pain Cardio Cardiovascular: No murmur, pacemaker, heart disease, atrial fibrillation, high blood pressure, heart attack, heart stent, palpitations, shortness of breath with exertion or chest pain Psych Psychiatric: Yes depression and anxiety; No hearing voices Resp Respiratory: No shortness of breath, No sleep apnea, No cough, No COPD, No asthma, No emphysema and No wheezing Gastro Gastrointestinal: Yes abdominal pain, Yes nausea or vomiting, Yes diarrhea, Yes constipation, Yes blood in stool, Yes acid reflux, No hemorrhoids, Yes ulcers, No gallbladder problem and Yes black,tarry stools Skyler Hematologic: No blood thinners, No blood disorders, No bleeding, No anemia and No blood clots Neuro Neurologic: No system reviewed and no additional complaints, except as documented, No as per HPI, No abnormal gait, No abnormal hearing, No abnormal movements, No abnormal speech, No behavioral changes, No burning sensations, No confusion, No convulsions, No disequilibrium, No dizziness, No localized weakness, No frequent falls, No headache(s), No lack of coordination, No loss of vision, No memory loss, No numbness, No other visual disturbances, No radicular pain, No restless legs, No sensory deficit, No syncope, No tingling, No tremor(s), No weakness and No other Exam Const General: cooperative Orientation: alert and oriented x3 [facility] Head: normal to inspection Neck Neck: normal visual inspection and full ROM Chest Chest palpation & inspection: normal inspection of the chest Resp Effort & Inspection: normal respiratory effort Auscultation: clear to auscultation bilaterally Cardio Rate: regular rate Rhythm: regular rhythm GI Inspection: non-distended Palpation: soft and nontender Skin General: no rashes or lesions noted Neuro General: patient alert and patient oriented x3 Extrem General: full ROM Psych Appearance: grossly normal Mental Status: mental status grossly normal Assessment and Plan Assessment and Plan (1) Difficulty swallowing: Status: Acute (2) Melena: Status: Acute Orders: Orders Colonoscopy Today EGD Today Plan Patient is having difficulty swallowing and melanotic stools. I discussed performing EGD with possible dilation I would also like to evaluate his colon as he is having left lower quadrant pain. The patient may have anastomotic stenosis. I discussed both procedures with the patient in detail. I explained endoscopy in detail to the patient. I explained the risks including but not limited to stroke or heart attack with anesthesia, perforation of the GI tract, bleeding, infection. I explained that any of these could necessitate further emergency surgery. The patient understands and all questions were answered sufficiently. The patient wishes to proceed with procedure. I did explain the increased risk of bleeding and perforation with dilation of the esophagus. Patient understands all the risks. Jay Chavez MD Pager: [facility] [address] [place] [address], [address] [place] [address] Office: I have seen and examined the patient and reviewed the H&P. There are no clinical changes
--- OUTSIDE RECORDS SUMMARY | 2025-02-11 06:57 | XMS RPT_ITS | CCD ---
Author Organization [facility] Care Team Providers Care Oracle Ebs Architect Name Role Phone Maki, Sohail L Unavailable [...] Unavailable Unavailable ADRIAN, VENKATAKRISHNAN Unavailable Unavail able ME Unavailable Unavailable MAHFOOZ, SKY Unavailable Unavailable TEDDY, MANGO B Unavailable Unavailable TEDDY, MANGO B Unavailable Unavailable TEDDY, MANGO B Unavailable Unavailable TEDDY, MANGO B Unavailable Unavailable TEDDY, MANGO B Unavailable Unavailable TEDDY, MANGO B Unavailable Unavailable TEDDY, MANGO B Unavailable Unavailable TEDDY, MAGNO B Unavailable Unavailable TEDDY, MANGO B Unavailable Unavailable TEDDY, MANGO B Unavailable Unavailable Mariscal, Gumaro W Unavailable Unavailable Mariscal, Gumaro W Unavailable Unavailable Maki, Sohail L Unavailable Unavailable Mariscal, Gumaro W Unavailable Unavailable Maki, Sohail L Unavailable Unavailable Laci Bains Unavailable Unavailable Laci Bains Unavailable Unavailable Maki, Sohail L Unavailable Unavailable BeaulieuAkirai K. Unavailable Unavailable BeaulieuAkira radfordi K. Unavailable Unavailable Craske, W Xavi Unavailable Unavailable Craske, W Xavi Unavailable Unavailable Maki, Sohail L Primary Care Provider Unavailab Nivia Dai Unavailable GHAZARIAN, STEVE Primary Care Unavailable GREG MONTAÑO Attending Unavailable GHAZARIAN, STEVE Referring Unavailable GHAZARIAN, STEVE Primary Care Unavailable GHAZARIAN, STEVE Referring Unavailable GHAZARIAN, STEVE Primary Care Unavailable GHAZARIAN, STEVE Referring Unavailable GHAZARIAN, STEVE Primary Care Unavailable GHAZARIAN, STEVE Referring Unavailable GHAZARIAN, STEVE Primary Care Unavailable GHAZARIAN, STEVE Referring Unavailable GHAZARIAN, STEVE Primary Care Unavailable WINGESKENDELL HINOJOSA Referring Unavailable GHAZARIAN, STEVE Primary Care Unavailable GHAZARIAN, STEVE Referring Unavailable GHAZARIAN, STEVE Primary Care Unavailable JOSIAS SINGH Admitting Unavailab JOSIAS Rob Attending Unavailab SOHAIL Anna Primary Care Unavailable Hannah, Thuy Unavailable Unavailable Hannah, Thuy D Unavailable Unavailable Mango Espinal B Unavailable Unavailable Unknown, Referring Provider Unavailable Unav ailable Hannah, Thuy D Unavailable Unavailable Dustin Espinalhel B Unavailable Unavailable Tavallaee, Panchito Unavailable Unavailable Sohail Gambino Primary Care Provider Nivia Cazares Unavailable Hannah, Thuy D Unavailable Unavailable Unavailable Dr. Di Walden Primary Care Provider [phone] Dr. Di Walden Attending Provider [phone] Dr. Di Walden Referring Provider [phone] Brittney VP SITE, VP SITE-C Kev Attending Provider [phone] Dr. Tarun Farley Attending Provider [phone] Dr. Di Walden Primary Care Provider [phone] Dr. Di aWlden Referring Provider [phone] Brittney VP SITE, VP SITE-C Kev Referring Provider [phone] Brittney VP SITE, VP SITE-C Kev Primary Care Provider TAD Sanders Attending Provider Unavailab landry Lugo VP SITE, VP SITE-C Kev Referring Provider Dr. Flavio Concepcion Emergency Provider [phone] Dr. Jamee Phillips Admit Provider Dr. Jamee Phillips Other Provider Dr. Gamal French Attending Provider Dr. Gamal French Other Provider Dr. Frankie Smith Other Provider Dr. Manjinder Mcnally Other Provider Dr. Rory Garcia Other Provider Unavailab landry Whitaker VP SITE, VP SITE-C Ana Lilia Other Provider Dr. Leonora Dunbar Other Provider Dr. Jose Seth Attending Provider Dr. Leonora Dunbar Attending Provider Lugo VP SITE, VP SITE-C Kev Primary Care Provider Lugo VP SITE, VP SITE-C Kev Referring Provider [phone] TAD Sanders Attending Provider Unavailab Dr. Flavio Garcia Emergency Provider [phone] Dr. Jamee Phillips Admit Provider Dr. Jamee Phillips Referring Provider Dr. Jamee Phillips Other Provider Dr. Gamal French Attending Provider Dr. Gamal French Other Provider Dr. Frankie Smith Other Provider Dr. Manjinder Mcnally Other Provider Dr. Rory Garcia Other Provider Unavailab landry Whitaker VP SITE, VP SITE-C Ana Lilia Other Provider Dr. Leonora Dunbar Other Provider Dr. Jose Seth Attending Provider Dr. Leonora Dunbar Attending Provider Lugo VP SITE, VP SITE-C Kev Attending Provider [phone] Lugo VP SITE, VP SITE-C Kev Primary Care Provider Lugo VP SITE, VP SITE-C Kev Referring Provider [phone] TAD Sanders Attending Provider Unavailab le Lugo VP SITE, VP SITE-C Kev Primary Care Provider Lugo VP SITE, VP SITE-C Kev Referring Provider [phone] [place] VP SITE, VP SITE-C Lala Higgins Attending Provider [phone] Dr. Timur Abreu Attending Provider [phone] Dr. Timur Abreu Other Provider [phone] VINOD ACUÑA CNP Primary Care Physician Lugo VP SITE, VP SITE-C Kev Referring Provider [phone] Dr. Timur Abreu Attending Provider [phone] [facility], [place] Primary Care [place] [facility] Flavio Concepcion Emergency Provider Dr. Jamee Phillips Admit Provider Dr. Jamee Phillips Other Provider Dr. Frankie Smith Other Provider Dr. Gamal French Attending Provider Dr. Gamal French Other Provider Dr. Marylu Lynn Other Provider Unavailable Dr. Manjinder Mcnally Other Provider Dr. Rory Garcia Other Provider Unavailab landry Whitaker VP SITE, VP SITE-C Ana Lilia Other Provider Dr. Kev Bedoya Referring Provider Dr. Kev Bedoya Other Provider Dr. Kev Bedoya Attending Provider Dr. Cristina Duncan Attending [place], [place] Referring Provider Unavailable TAD Hillman Attending Provider Dr. Xavi [place] Emergency Provider [phone] Dr. Jake Franklin Admit Provider Unavailabl e Franklin, Dr. Joseph Attending Provider Unavail able Dr. Jake Franklin Other Provider Unavailabl e Rolo, Dr. Garcia Attending Provider Dr. Jose Seth Referring Provider Dr. Temi Katz Attending Provider Dr. Temi Katz Other Provider Dr. Cristina Duncan Other Provider Dr. Jake Cox Attending Provider Unavailable Dr. Jake Cox Other Provider Unavailable Kev Deras Primary Care Provider Jorge Anguiano Unavailable KEV DERAS Primary Care Unavailable [facility]USS[facility] Unavailab CARMELA Davis DO Attending Unavailable [place], [place] Primary Care Provider Unavailabl e Landry HAN, Dr. Mccartney Emergency Provider Dr. Bib Beavers DO Attending Provider Dr. Javy Navarro MD Emergency Provider [place] Primary Care Physician Unavailab Haider, Dr. Mccartney Attending Physician Dr. Bib Beavers DO Emergency Department Physician Dr. Javy Navarro MD Attending Physician Dr. Javy Navarro MD Emergency Department Physici an [place] Primary Care Physician Unavailab [place] Referring Provider Unavailable Scott REDD, Dr. Thompson Attending Physician Dr. Ermias German DO Emergency Department Physi kate Dr. Temi Katz MD Admitting Physician Dr. Temi Katz MD Attending Physician Nehemiah Metzger MD Nurse Practitioner Unavailable Danelle REDD, Dr. Estrella Nurse Practitioner [phone] Sarah REDD, Lily Nurse Practitioner Unavailab landry Garcia DO, Dr. Kim Nurse Practitioner Jag REDD, Dr. Peck Nurse Practitioner [phone] Jacques REDD, Dr. Rodriguez Nurse Practitioner Luther REDD, Dr. Hammer Nurse Practitioner Saeed REDD, Dr. Richardson Nurse Practitioner [phone] Serg REDD, Dr. Reyes Nurse Practitioner [phone] Javier REDD, Dr. Rosa Nurse Practitioner Trace HAN, Dr. Falk Nurse Practitioner Sarahy REDD, Shelia Nurse Practitioner Nadya REDD, Dr. Polanco Nurse Practitioner Celso REDD, Dr. Hodges Nurse Practitioner [phone] Pola REDD, Dr. Lopez Nurse Practitioner Jamie REDD, Dr. Nelda Linares Nurse Practitioner Adi REDD, Dr. Marti Nurse Practitioner Zulma REDD, Dr. Servin Nurse Practitioner Scott REDD, Dr. Samuel Nurse Practitioner Manjinder REDD, Dr. Foreman Nurse Practitioner Unavailarlen Gross MD, [facility] [place]itioner Unavailarlen Katz MD, Dr. Membreno Nurse Practitioner [phone] [place] Primary Care Unavailable Bib Beavers Attending [place]available [place] Unavailable Javy Navarro Attending Unavailable [facility] Primary [place] Unavailable Jay Chavez Attending Unavailable Jay Chavez Referring Unavailable Temi Katz Attending Unavailable Temi Katz Admitting Unavailable Nehemiah Metzger Consulting Unavailable [facility] [place] Primary Care Unavailable Adeli, Amir Consulting Unavailable Lily Smith Consulting Unavailable Judy Garcia Consulting Unavailable Liv Rm Consulting Unavailable Michael Hanna Consulting Unavailable Jaquelin Sloan Consulting Unavailable Dylan Tipton Consulting Unavailable Enrike Ulrich Consulting Unavailable Moe Herrera Consulting Unavailable Deya Woodward Consulting Unavailable Shelia Weathers Consulting Unavailable Collin Covington Consulting Unavailable Tracie Houston Consulting Unavailable John Escalona Consulting Unavailable Nelda Ayala Consulting UnavailFigueroa Sanchez Consulting Unavailable Zulma, Rami Consulting Unavailable Jimmie Chavez Consulting Unavailable Kellen Dunbar Consulting Unavailable Latricia Gross Consulting [place] [place] Ref[place] [facility] [place] [facility] Unavailable Jay Chavez Attending Unavailable Temi Katz Attending [facility]available [facility] [place] [facility] Unavailable Temi Katz Admitting Unavailable Nehemiah Metzger Consulting Unavailable Delores Mcclendon Consulting Unavailable Lily Smith Consulting Unavailable Judy Garcia Consulting Unavailable Liv Rm Consulting Unavailable Michael Hanna Consulting Unavailable Jaquelin Sloan Consulting Unavailable Dylan Tipton Consulting Unavailable Enrike Ulrich Consulting Unavailable Moe Herrera Consulting Unavailable Deya Woodward Consulting Unavailable Shelia Weathers Consulting Unavailable Collin Covington Consulting Unavailable Tracie Houston Consulting Unavailable John Escalona Consulting Unavailable Jamie, Nelda Linares Consulting UnavailFigueroa Sanchez Consulting Unavailable Zulma, Rami Consulting Unavailable Jimmie Chavez Consulting Unavailable Kellen Dunbar Consulting Unavailable Latricia Gross Consulting Unavailable Temi Katz Consulting Unavailable Allergies Allergy Classification Reported Allergen(s) Allergy Type Date of Onset Reaction(s) Facility (2 sources) No Known Allergies; Translations: [No Known Allergies] Propensity to adverse reactions (disorder) 8 [facility] Rep[facility] Medications Current Medications Medication Drug Class(es) [...] Start : 26-Apr-2019 Active aspirin 81 mg chewable tablet (20 sources) Nonsteroidal Anti-inflammatory Drug Start: 12-02-2024 take 1 tablet by mouth at breakfast Start: 01-12-2023 End: 04-26-2023 take 1 tablet [...] Refills: 0 Ordered: 26-Apr-2019 DO Active atorvastatin 20 mg oral tablet (20 sources) HMG-CoA Reductase Inhibitor Start: 01-07-2020 take 40 mg by mouth once daily Atorvastatin Active 40 MG PO DAILY January 07, 2020 1:40pm Start: 05-12-2019 End: 01-07-2020 take 1 tablet by mouth once daily Atorvastatin 20 MG tablet Discontinued 20 mg PO DAILY May 12, 2019 12:00am January 07, 2020 1:43pm take 1 tablet by tita once daily Atorvastatin Calcium 40 MG Oral Tablet Take 1 tablet daily Quantity: 0 Refills: 0 Ordered: 26-Apr-2019 DO Active atorvastatin (LI PITOR) 80 MG tablet Indications: hypercholesterolemia Take 20 mg by mouth daily Reasons: high cholesterol. 0 Active take 1 tablet by itta th once daily atorvastatin (LIPITOR) 80 MG [...] Aromatic Amino Acid Decarboxylation Inhibitor Start: 11-30-2021 Carbidopa-Levodop a (Rytary) 36.25-145 mg Capsule, Extended Release Active 4 NMA PO 4 TIMES DAILY November 30, 2021 12:00am Parkinsons takes at 7am,11am,3pm,7pm DO NOT CRUSH OR CHEW, SWALLOW WHOLE Complies with drug therapy Start: 02-16-2021 take 1 tablet by tita [...] 07, 2020 12:41pm take 4 capsules by m [facility] three times daily [...] D Start: 11-30-2021 take 1 tablet by mouth once daily Cholecalciferol (Vitamin D3) 50 mcg (2,000 unit) Tablet Active 50 ug PO DAILY November 30, 2021 12:00am SUPPLEMENT Complies with drug therapy Start: 05-12-2019 take 2000 [IU] by [facility] once daily Cholecalciferol (Vitamin D3) Active 2000 UNIT PO DAILY May 12, 2019 10:53pm take 1 tablet by [facility] once daily Vitamin D3 50 MCG (1999) Oral Tablet Take 1 tablet daily Quantity: 0 Refills: 0 Ordered: 25-Apr-2019 DO Active take 2 tablets by [facility] once daily cholecalciferol, vitamin D3, 1,000 unit tablet Take 2,000 Units by mouth daily. 0 Active clonazePAM 1 mg oral tablet (20 sources) Benzodiazepine Start: 12-01-2024 take 1 tablet by mouth 30 minutes before bedtime Clonazepam (Klonopin) 1 mg tablet Active 1 mg PO AT BEDTIME December 01, 2024 12:00am PANIC DISORDER administer 30 minutes before bedtime Complies with drug therapy Start: 02-16-2021 End: 07-30-2023 take 1 tablet by mouth at bedtime Clonazepam 0.5 mg tablet Discontinued 0.5 mg PO AT BEDTIME February 16, 2021 1:00am July 30, 2023 5:46pm SLEEP Start: 02-16-2021 take 0.5 mg by mouth at bedtim e Clonazepam Active 0.5 MG PO AT BEDTIME February 16, 2021 12:00am take 1 tablet by [facility] three times daily as needed for anxiety clonazePAM (KLONOPIN) 0.5 MG tablet Take 0.5 mg by mouth 3 (three) times a day as needed for anxiety. 0 Active diclofenac sodium 0.01 mg/mg topical gel (7 sources) Nonsteroidal Anti-inflammatory Drug Start: 03-16-2023 apply 4 g topically twice daily as needed Start: 03-16-2023 apply 4 g topically twice randy y Diclofenac Sodium Active 4 GM TOPICAL TWICE A DAY March 16, 2023 12:00am dilTIAZem hydrochloride 60 mg oral tablet (20 sources) Calcium Channel Kezia Start: 11-30-2021 take 1 tablet by mouth twice daily Diltiazem Hcl 60 mg Tablet Active 60 mg PO TWICE A DAY November 30, 2021 12:00am HYPERTENSION/AGINA Complies with drug therapy Start: 02-16-2021 take 60 mg by mouth [...] DULoxetine 60 mg delayed release oral capsule (12 sources) Serotonin and Norepinephrine Reuptake Inhibitor Start: 03-29-2022 take 2 capsules by mouth once daily Duloxetine 60 mg capsule,delayed release(DR/EC) Active 120 mg PO DAILY March 29, 2022 1:00am DEPRESSION Complies with drug therapy Start: 03-29-2022 take 120 mg by mouth once randy y Duloxetine Active 120 MG PO DAILY March 29, 2022 12:00am Start: 03-29-2022 take 60 mg by mouth once daily Duloxetine Active 60 MG PO DAILY March 29, 2022 12:00am empagliflozin 25 mg oral tablet (20 sources) Sodium-Glucose Cotransporter 2 Inhibitor Start: 11-30-2021 take 1 tablet by mouth once daily Empagliflozin (Jardiance) 25 mg Tablet Active 25 mg PO DAILY November 30, 2021 12:00am DIABETES Complies with drug therapy Start: 08-04-2021 take 1 tablet by tita th once daily Empagliflozin (Jardiance) 10 mg Tablet Active 0 MG PO DAILY August 04, 2021 5:05pm entacapone 200 mg oral tablet (3 sources) Svaphmtm-G-Sqemeyrefeukkkgrr Inhibitor take 1 tablet by mouth four times daily entacapone (COMTAN) 200 mg tablet Take 200 mg by mouth 4 (four) times a day. 0 Active famotidine 20 mg oral tablet (20 sources) Histamine-2 Receptor Antagonist Start: 2019 take 1 tablet by mouth twice daily Famotidine 20 MG tablet Active 20 mg PO TWICE A DAY February 17, 2020 1:00am GERD Complies with drug therapy Start: 05-12-2019 End: 01-07-2020 take 1 tablet [...] 2021 1:33pm gabapentin 300 mg oral capsule (7 sources) Anti-epileptic Agent Start: 03-16-2023 take 1 capsule by mouth at bedtime Gabapentin 300 mg capsule Active 300 mg PO AT BEDTIME March 16, 2023 1:00am RESTLESS LEG SYNDROME Complies with drug therapy guaiFENesin 400 mg oral tablet (2 sources) Start: 03-04-2021 take 400 mg by mouth three times daily Guaifenesin Active 400 MG PO THREE TIMES A DAY March 04, 2021 11:57am hydroCHLOROthiazide 12.5 mg oral capsule (20 sources) Thiazide Diuretic Start: 12-01-2024 take 1 capsule by mouth once daily at mealtime Hydrochlorothiazide 12.5 mg capsule Active 12.5 mg PO DAILY December 01, 2024 12:00am HYPERTENSION TAKE WITH FOOD Non-compliance of drug therapy Start: 02-16-2021 End: 07-30-2023 take 1 tablet by mouth once daily at mealtime Hydrochlorothiazide 12.5 mg tablet Discontinued 12.5 mg PO EVERY MORNING March 16, 2023 1:00am July 30, 2023 5:46pm BLOOD PRESSURE take with food hyoscyamine sulfate 0.125 mg sublingual tablet (2 [...] 05-12-2019 take 3 tablets by mouth at bedtime Melatonin 3 MG tablet Active 9 mg PO AT BEDTIME May 12, 2019 12:00am SLEEP Complies with drug therapy Start: 05-12-2019 take 9 mg by mouth at bedtime Melatonin Active 9 MG PO AT BEDTIME May 11, 2019 11:00pm mupirocin 0.02 mg/mg topical ointment (1 source) RNA Synthetase Inhibitor Antibacterial Start: 06-01-2024 End: 06-11-2024 mupirocin (BACTROBAN) 2 % ointment Indications: Rhinosinusitis Apply to affected area three times a day for 10 days. 15 g 06/01/2024 06/11/2024 Active Shreve-3 Fatty Acids (13 sources) Start: 11-30-2021 take 1000 mg by mouth once daily Shreve-3 Fatty Acids Active 1000 MG PO DAILY November 29, 2021 11:00pm Start: 11-30-2021 take 1000 mg by mouth once johan ly Shreve-3 Fatty Acids Active 1000 MG PO DAILY November 30, 2021 12:00am Shreve-3 Fatty Acids (Shreve 3) Capsule (1 source) Start: 11-30-2021 take 1 capsule by mouth once daily Shreve-3 Fatty Acids (Shreve 3) Capsule Active 1000 MG PO DAILY November 30, 2021 12:00am pantoprazole 40 mg delayed release oral tablet (20 sources) Proton Pump Inhibitor Start: 11-25-2024 take 1 tablet by mouth once daily Pantoprazole 40 mg tablet,delayed release (DR/EC) Active 40 mg PO daily November 25, 2024 12:00am GERD Complies with drug therapy Start: 08-04-2021 End: 11-30-2021 take 1 tablet by mouth once daily Pantoprazole (Protonix) 40 mg tablet,delayed release (DR/EC) Discontinued 40 mg PO DAILY 14 August 04, 2021 12:00am November 30, 2021 [...] 30, 2021 9:11am take 1 tablet by [facility] twice daily Pantoprazole Sodium 40 MG Oral [...] take 1 capsule by mouth at bedtime Prazosin 5 mg Capsule Active 10 mg PO AT BEDTIME November 30, 2021 12:00am HYPERTENSION Complies with drug therapy Start: 11-30-2021 take 10 mg by mouth [...] take 1 tablet by mouth twice daily Propranolol 10 mg tablet Active 10 mg PO TWICE A DAY February 16, 2021 1:00am HYPERTENSION AND ANXIETY Complies with drug therapy Start: 02-16-2021 take 10 mg by mouth [...] (TRI-MIX FORMULA CUSTOM) injection as needed. Active QUEtiapine 25 mg oral tablet (2 sources) Atypical Antipsychotic Start: 12-01-2024 take 3 tablets by mouth at bedtime Quetiapine 25 mg tablet Active 75 mg PO AT BEDTIME December 01, 2024 12:00am NIGHT TERRORS Complies with drug therapy raNITIdine 150 mg oral tablet (3 sources) [...] Active rosuvastatin calcium 20 mg oral tablet (20 sources) HMG-CoA Reductase Inhibitor Start: 11-25-2024 take 1 tablet by mouth once daily Rosuvastatin 20 mg tablet Active 20 mg PO daily November 25, 2024 12:00am HIGH CHOLESTEROL Complies with drug therapy Start: 11-30-2021 End: 08-07-2023 take 1 tablet by mouth at bedtime Rosuvastatin 20 mg Tablet Discontinued 20 mg PO AT BEDTIME November 30, 2021 12:00am August 07, 2023 4:07pm HIGH CHOLESTEROL sildenafil 100 mg oral tablet (8 sources) Phosphodiesterase 5 Inhibitor Start: 03-16-2023 take 1 tablet by mouth once daily as needed Sildenafil 100 mg tablet Active 100 mg PO DAILY as needed for sexual activity March 16, 2023 1:00am Complies with drug therapy End: 02-01-2017 take 1 tablet by mouth once daily as needed sildenafil (VIAGRA) 100 MG tablet Take 100 mg by mouth daily as needed for erectile dysfunction. 02/01/2017 Discontinued 1 ml testosterone cypionate 200 mg/ml injection (20 sources) Androgen Start: 11-25-2024 inject 200 mg by intramuscular injection every other week Testosterone Cypionate (Depo-Testosterone) 200 mg/mL oil Active 200 mg IM every 2 weeks November 25, 2024 12:00am LOW TESTOSTERONE Complies with drug therapy Start: 07-30-2023 End: 08-07-2023 inject 200 mg by intramuscular injection every other week Testosterone Cypionate (Depo-Testosterone) 200 mg/mL oil Discontinued 200 mg IM .[id number] July 30, 2023 12:00am August 07, 2023 [...] sources) Serotonin Reuptake Inhibitor Start: 05-12-2019 take 3 tablets by mouth at bedtime Trazodone 100 MG tablet Active 300 mg PO AT BEDTIME May 12, 2019 12:00am SLEEP Complies with drug therapy Start: 05-12-2019 take 2 tablets by mo uth at bedtime Start: 05-12-2019 take 200 mg [...] 23-Sep-2020 Thuy Mccord Start : 23-Sep-2020 Active cephalexin 500 mg oral capsule (7 sources) Cephalosporin Antibacterial Start: 01-12-2023 End: 03-16-2023 take 1 capsule by mouth every six hours Cephalexin 500 mg capsule Discontinued 500 mg PO EVERY 6 HOURS 40 0 January 12, 2023 1:00am March 16, 2023 8:11pm ciprofloxacin 500 mg oral tablet (20 sources) Quinolone Antimicrobial Start: 12-02-2021 End: 12-16-2021 take 1 tablet by mouth every twelve hours Ciprofloxacin Hcl 500 mg tablet Discontinued 500 mg PO Q12H 28 14 0 December 02, 2021 4:36pm December 15, 2021 12:00am December 16, 2021 12:03am Start: 10-26-2020 End: 11-16-2020 take 1 tablet by mouth twice daily Ciprofloxacin Hcl (Cipro) 500 mg tablet Discontinued 500 mg PO TWICE A DAY October 26, 2020 12:00am November 16, 2020 10:12am Diverticulitis clopidogrel 75 mg oral tablet (20 sources) [id number] Platelet Inhibitor Start: 12-01-2024 End: 12-02-2024 take 1 tablet by mouth once daily Clopidogrel 75 mg tablet Discontinued 75 mg PO DAILY December 01, 2024 12:00am December 02, 2024 4:01pm STROKE PREVENTION Start: 12-02-2021 End: 11-25-2024 take 1 tablet by mouth once daily Clopidogrel 75 mg Tablet Discontinued 75 mg PO DAILY January 12, 2023 12:07pm November 25, 2024 8:40am BLOOD THINNER dicyclomine hydrochloride 20 mg oral tablet (15 sources) Anticholinergic Start: 01-14-2022 End: 01-11-2023 take 1 tablet by mouth twice daily Dicyclomine 20 mg tablet Discontinued 20 mg PO TWICE A DAY January 14, 2022 1:00am January 11, 2023 3:36pm docusate sodium 100 mg oral capsule (5 sources) Start: 08-02-2023 End: 08-07-2023 take 1 capsule by mouth once daily Docusate Sodium 100 mg Capsule Discontinued 100 mg PO DAILY 0 August 02, 2023 12:00am August 07, 2023 4:03pm Constipation icosapent ethyl 1000 mg oral capsule (5 sources) Start: 07-30-2023 End: 11-25-2024 take 2 capsules by mouth twice daily Icosapent Ethyl 1 gram capsule Discontinued 2 g PO TWICE A DAY July 30, 2023 12:00am November 25, 2024 8:41am Cholesterol lactobacillus acidophilus [id number] unt oral capsule (6 sources) Start: 04-26-2019 take 1 capsule by mouth once daily Probiotic Acidophilus Oral Capsule TAKE 1 CAPSULE Daily Quantity: 90 Refills: 3 Ordered: 08-Jan-2020 Thuy Mccord Start : 26-Apr-2019 Active Start: 04-26-2019 take 1 capsule by mo uth once daily Probiotic Acidophilus Oral Capsule TAKE 1 CAPSULE Daily Quantity: 30 Refills: 0 [place] 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, Thuy Start : 26-Apr-2019 Active levodopa 42 [...] FOR 28 DAYS. Quantity: 28 Refills: 0 [place] 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, Thuy Start : 21-May-2019 Active lidocaine 0.05 mg/mg medicated patch (14 sources) Antiarrhythmic, Amide Local Anesthetic Start: 03-16-2023 [...] 07-04-2018 nitroGLYCERIN (NITROSTAT) SL tablet 0.4 mg Shreve-3 Fatty Acids Capsule (5 sources) Start: 11-30-2021 End: 11-25-2024 take 1 capsule by mouth once daily Shreve-3 Fatty Acids Capsule Discontinued 1000 mg PO DAILY November 30, 2021 12:00am November 25, 2024 8:41am SUPPLEMENT Start: 11-30-2021 take 1 capsule by mo [facility] once daily Shreve-3 Fatty Acids Capsule Active 1000 mg PO DAILY November 30, 2021 12:00am SUPPLEMENT ondansetron 4 mg disintegrating oral tablet (18 sources) Serotonin-3 Receptor Antagonist Start: 01-13-2022 End: [...] TABLET DAILY DIRECTED. Quantity: 30 Refills: 0 Panchito Delatorre MD Start : 10-Jun-2019 Active polyethylene glycol 3350 25360 mg powder for oral solution (20 sources) [...] Fiber (Psyllium-Aspart)) 3 gram Powder In Packet (5 sources) Start: 08-02-2023 End: 08-07-2023 Psyllium Husk [...] 12:00am September 20, 2021 10:34am Sodium Chloride (8 sources) Start: 03-16-2023 End: 03-16-2023 sodium chloride NASAL GEL ge l Discontinued NASAL DAILY March 16, 2023 1:00am March 16, 2023 8:55pm NASAL DRYNESS Start: 03-16-2023 End: 03-16-2023 sodium chloride NASAL GEL Di scontinued NASAL DAILY March 16, 2023 12:00am March 16, 2023 7:55pm Start: 07-04-2018 End: 07-04-2018 sodium chloride 0.9% (NS) Sodium Chloride-Aloe Vera (A yr Saline) gel (7 sources) Start: 03-16-2023 End: 07-30-2023 Sodium Chloride-Aloe Vera (A yr Saline) gel Discontinued 1 NMA INTRANASAL DAILY March 16, 2023 1:00am July 30, 2023 5:46pm NASAL DRYNESS Start: 03-16-2023 Sodium Chlorid e-Aloe Vera ([place] Saline) gel Active 1 APPLIC INTRANASAL DAILY March 16, 2023 12:00am sucralfate 100 mg/ml oral suspension (20 sources) Aluminum Complex Start: 03-16-2023 End: 07-30-2023 [...] pain; Translations: [Right upper quadrant pain] Onset: 5 03-24-2022 Episodic Acute cerebrovascular disease (20 sources) Cerebral [...] sources) Thrombocytopenic disorder; Translations: [Thrombocytopenia, unspecified] Onset: Chronic Complication of device; implant or graft (7 sources) 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; Translations: [Unstable angina due to arteriosclerosis of autologous artery coronary artery bypass g] 03-24-2023 Chronic Coronary atherosclerosis and other heart disease (6 sources) Coronary arteriosclerosis; Translations: [Coronary atherosclerosis of unspecified type of vessel, false pass or graft] Chronic Diabetes mellitus without complication [...] mention of hemorrhage)] Chronic E Codes: Fall (8 sources) Fall; Translations: [Unspecified fall, initial encounter] 08-14-2022 Episodic Esophageal disorders (20 sources) Gastroesophageal reflux disease; Translations: [Gastro-esophageal reflux disease without esophagitis] 06-06-2020 Chronic Essential hypertension (20 sources) Essential (primary) hypertension; Translations: [Benign essential hypertension] Onset: 8 Chronic Gastritis and duodenitis (5 sources) Gastritis; Translations: [Gastritis, unspecified, without bleeding] 09-17-2024 Episodic Gastrointestinal hemorrhage (7 sources) Melena; Translations: [Melena] Onset: 5 11-25-2024 [...] Translations: [Prostatitis, unspecified] Episodic Malaise and fatigue (15 sources) Fatigue; Translations: [Other malaise and fatigue] [...] D; Translations: [Vitamin deficiency] Episodic Other aftercare (5 sources) Long-term current use of benzodiazepine; Translations: [Other manager terminal (current) drug therapy] 08-10-2023 Episodic Other and ill-defined heart disease (5 sources) Left ventricular hypertrophy; Translations: [Cardiomegaly] 08-10-2023 Chronic Other and unspecified benign neoplasm (9 sources) History of polyp of colon; Translations: [Personal history of colonic polyps] 11-25-2024 Episodic Other circulatory disease (5 sources) Orthostatic hypotension; Translations: [Orthostatic hypotension] 08-04-2023 Episodic Comment on above: Likely due to the co mbined effects of high-dose Cardura and Parkinson's disease. Asymptomatic. Other connective tissue disease (20 sources) Pain in calf; Translations: [Pain in left lower leg] 02-17-2021 Episodic Other connective tissue disease (1 source) Pain in left lower leg; Translations: [Pain in limb] Episodic Other connective tissue disease (7 sources) Tenosynovitis of right radial styloid; Translations: [Radial styloid tenosynovitis [de Quervain]] 01-12-2023 Episodic Other connective tissue disease (2 sources) Radial styloid tenosynovitis [de Quervain]; Translations: [Radial styloid tenosynovitis] 01-12-2023 Episodic Other connective tissue disease (3 sources) Pain of left calf; Translations: [Pain in left lower leg] 02-17-2021 Episodic Other connective tissue disease (4 sources) Neurological deficit; Translations: [Other symptoms and signs involving the nervous system] 12-01-2024 Episodic Other connective tissue disease (1 source) Other symptoms and signs involving the nervous system; Translations: [Other symptoms and signs involving the nervous system] Onset: Episodic Other endocrine disorders (1 source) Hypogonadism; Translations: [Hypogonadism] Chronic Other endocrine disorders (6 sources) Testicular hypofunction; Translations: [Other testicular hypofunction] Chronic Other endocrine disorders (5 sources) Male hypogonadism; Translations: [Other testicular hypofunction] Chronic Other gastrointestinal disorders (5 sources) Splenomegaly; Translations: [Splenomegaly] Episodic Other gastrointestinal disorders (20 sources) Constipation; Translations: [Constipation, unspecified] 06-06-2020 Episodic Other gastrointestinal disorders (11 sources) Constipation alternates with diarrhea; Translations: [Other specified symptoms and signs involving the digestive system and abdomen] 06-17-2022 Episodic Other gastrointestinal disorders (4 sources) Other specified symptoms and signs involving the digestive system and abdomen; Translations: [Other symptoms involving digestive system] 06-17-2022 Episodic Other gastrointestinal disorders (6 sources) Dysphagia; Translations: [Dysphagia, unspecified] 11-25-2024 Episodic Other gastrointestinal disorders (1 source) Dysphagia, unspecified; Translations: [Dysphagia, unspecified] Onset: Episodic Other liver diseases (5 sources) Hepatic fibrosis; 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 Other liver diseases (5 sources) Steatosis of liver; Translations: [Other chronic nonalcoholic liver disease] Chronic Other lower respiratory disease (10 sources) Cough; Translations: [Cough] 04-26-2023 Episodic Other lower respiratory disease (5 sources) Solitary nodule of lung; Translations: [Solitary pulmonary nodule] 09-17-2024 Episodic Other male genital disorders (3 sources) Impotence; Translations: [Erectile dysfunction] Chronic Other male genital disorders (3 sources) Male erectile dysfunction, unspecified; Translations: [Erectile dysfunction] Chronic Other nervous system disorders (5 sources) Impaired cognition 08-04-2023 Episodic Other nervous system disorders (5 sources) H/O: brain disorder; Translations: [Personal history of other diseases of the nervous system and sense organs] 08-09-2023 Episodic Other nervous system disorders (1 source) Paresthesia of skin; Translations: [Paresthesia of skin] Onset: Episodic Other non-traumatic joint disorders (1 source) Pain in left knee; Translations: [Pain in joint, lower leg] Episodic Other non-traumatic joint disorders (7 sources) Pain in wrist; Translations: [Pain in [...] [HEMIPLEGIA, UNSPECIFIED AFFECTING RIGHT DOMINANT SIDE] Onset: Chronic Parkinson's disease (20 sources) Parkinson's disease; [...] 02-16-2021 Episodic Skin and subcutaneous tissue infections (9 sources) Cellulitis of right wrist; Translations: [Cellulitis of right upper limb] 01-12-2023 Episodic Sprains and strains (20 sources) Injury of left hand; Translations: [Sprain of unspecified part of left wrist and hand, initial encounter] 10-18-2020 Episodic Superficial injury; contusion (8 sources) Contusion of back; Translations: [Contusion of unspecified back wall of thorax, initial encounter] 08-14-2022 Episodic Unclassified (2 sources) Obstructive sleep apnea (adult) (pediatric); Translations: [Status post administration of tPA (rtPA) in a different facility within the last 24 hours prior to admission to current facility] Onset: 8 Chronic Unclassified (9 sources) Parkinson's disease; Translations: [Parkinson's disease] 01-10-2023 [...] Test Name Value Interpretation Reference Range Facility Bedside Glucoseon 12-05-2024 FINGERSTICK GLU 179 mg/dL High 74-106 [facility] Comment on above: Result Comment: LYNN LISA OF PATIENT CARE PER NURSING PROTOCOL Performed By: #### L 501.080 #### [facility] [address] [place], [place], [id number] Absolute lymphocyte countOrd ered By: Temi Katz on 12-02-2024 Lymphocytes Auto (Unsp spec) [#/Vol] 1.56 10*3/uL 0.83-4.51 [facility] Absolute neutrophil countOrd ered By: Temi Kazt on 12-02-2024 Neutrophils (Bld) [#/Vol] 3.5 10*3/uL 2.0-7.7 [facility] Anion gap in Serum or Plasma Ordered By: Temi Katz on 12-02-2024 Anion gap [Moles/Vol] 15 mmol/L 5-15 [facility] Automated lymphocyte count a s percentage of total leukocytesOrdered By: Temi Katz on 12-02-2024 Lymphocytes/100 WBC Auto (Unsp spec) 26.4 % 19-41 [facility] BUN/creatinine ratioOrdered By: Temi Katz on 12-02-2024 Urea nitrogen/Creatinine [Mass ratio] 18.3 mg/mg 10- [facility] Basic Metabolic Profile (BMP )on 12-02-2024 BUN/CRE 18.3 RATIO Normal - [facility] Comment on above: Order Comment: Comme nts: NPO at [place] prior to lipid panel Performed By: #### L 100.0100, L500.2500, L500.4100 #### [facility] [address] [place], [address] Calcium [Mass/Vol] 8.5 mg/dL Normal 7.6-11.0 [facility] Comment on above: Order Comment: Comme nts: NPO at [place] prior to lipid panel Performed By: #### L 100.0100, L500.2500, L500.4100 #### [facility] [address] [place], [address] Chloride [Moles/Vol] 106 mmol/L Normal 98-108 [facility] Comment on above: Order Comment: Comme nts: NPO at [place] prior to lipid panel Performed By: #### L 100.0100, L500.2500, L500.4100 #### [facility] [address] [place], [address] CO2 [Moles/Vol] 14.7 mmol/L Low 21.0-32.0 [facility] Comment on above: Order Comment: Comme nts: NPO at [place] prior to lipid panel Performed By: #### L 100.0100, L500.2500, L500.4100 #### [facility] [address] [place], [address] Creatinine [Mass/Vol] 0.87 mg/dL Normal 0.70-1.20 [facility] Comment on above: Order Comment: Comme nts: NPO at [place] prior to lipid panel Performed By: #### L 100.0100, L500.2500, L500.4100 #### [facility] [address] [place], [address] ECRCL 111.36 ml/min Normal 50-250 [facility] Comment on above: Order Comment: Comme nts: NPO at [place] prior to lipid panel Performed By: #### L 100.0100, L500.2500, L500.4100 #### [facility] [address] [place], [address] GAP 15 Normal 5-15 [facility] Comment on above: Order Comment: Comme nts: NPO at [place] prior to lipid panel Performed By: #### L 100.0100, L500.2500, L500.4100 #### [facility] [address] [place], [address] GFR/1.73 sq M.predicted among non-blacks MDRD (S/P/Bld) [Vol rate/Area] 99 mL/min/{1.73_m2} Normal >60 [facility] Comment on above: Order Comment: Comme nts: NPO at [place] prior to lipid panel Result Comment: mL/m in/1.73m2 CKD-EPI Creatinine Equation (2020) Performed By: #### L 100.0100, L500.2500, L500.4100 #### [facility] [address] [place], [address] Glucose [Mass/Vol] 142 mg/dL High 70-99 [facility] Comment on above: Order Comment: Comme nts: NPO at [place] prior to lipid panel Performed By: #### L 100.0100, L500.2500, L500.4100 #### [facility] [address] [place], [address] Potassium [Moles/Vol] 3.8 mmol/L Normal 3.3-5.1 [facility] Comment on above: Order Comment: Comme nts: NPO at [place] prior to lipid panel Performed By: #### L 100.0100, L500.2500, L500.4100 #### [facility] [address] [place], [address] Sodium [Moles/Vol] 136 mmol/L Normal 133-145 [facility] Comment on above: Order Comment: Comme nts: NPO at [place] prior to lipid panel Performed By: #### L 100.0100, L500.2500, L500.4100 #### [facility] [address] [place], [address] Urea nitrogen [Mass/Vol] 16 mg/dL Normal 4-19 [facility] Comment on above: Order Comment: Comme nts: NPO at [place] prior to lipid panel Performed By: #### L 100.0100, L500.2500, L500.4100 #### [facility] [address] [place], [address] Basophil percentageOrdered B y: Temiroverto Katz on 12-02-2024 Basophils/100 WBC (Bld) 0.7 % 0-[address] [facility] Bedside Glucoseon 12-02-2024 FINGERSTICK GLU 165 mg/dL High 74-106 [facility] Comment on above: Result Comment: LYNN GEMENT OF PATIENT CARE PER NURSING PROTOCOL Performed By: #### L 101.9900 #### [facility] [address] [place], [address] FINGERSTICK GLU 128 mg/dL High 74-106 [facility] Comment on above: Result Comment: LYNN GEMENT OF PATIENT CARE PER NURSING PROTOCOL Performed By: #### L 101.9900 #### [facility] [address] [place], [address] CBC W/Diff, Automatedon 10-0 Absolute Lymph 1.56 X10 3/uL Normal 0.83-4.51 [facility] Comment on above: Performed By: #### L 100.0100, L500.2500, L500.4100 #### [facility] [address] [place], [address] Absolute Neut 3.5 X10 3/uL Normal 2.0-7.7 [facility] Comment on above: Performed By: #### L 100.0100, L500.2500, L500.4100 #### [facility] [address] [place], [address] Basophils/100 WBC (Bld) 0.7 % Normal 0-[address] [facility] Comment on above: Performed By: #### L 100.0100, L500.2500, L500.4100 #### [facility] [address] [place], [address] Eosinophils/100 WBC (Bld) 4.6 % Normal 0-5 [facility] Comment on above: Performed By: #### L 100.0100, L500.2500, L500.4100 #### [facility] [address] [place], [address] Erythrocyte distribution width (RBC) [Ratio] 13.1 % Normal 11.6-14.6 [facility] Comment on above: Performed By: #### L 100.0100, L500.2500, L500.4100 #### [facility] [address] [place], [address] Hematocrit (Bld) [Volume fraction] 39.8 % Low 40-54 [facility] Comment on above: Performed By: #### L 100.0100, L500.2500, L500.4100 #### [facility] [address] [place], [address] Hemoglobin (Bld) [Mass/Vol] 13.7 g/dL Normal 13.0-16.5 [facility] Comment on above: Performed By: #### L 100.0100, L500.2500, L500.4100 #### [facility] [address] [place], [address] IG% 0.500 Normal 0.0-0.9 [facility] Comment on above: Result Comment: IG% - Immature Granulocytes (promyelocytes, myelocytes and metamyelocytes) > 1% indicates that a LEFT SHIFT is Present. Performed By: #### L 100.0100, L500.2500, L500.4100 #### [facility] [address] [place], [address] Lymphocytes/100 WBC (Bld) 26.4 % Normal 19-41 [facility] Comment on above: Performed By: #### L 100.0100, L500.2500, L500.4100 #### [facility] [address] [place], [address] MCH (RBC) [Entitic mass] 29.1 pg Normal 27.0-32.0 [facility] Comment on above: Performed By: #### L 100.0100, L500.2500, L500.4100 #### [facility] [address] [place], [address] MCHC (RBC) [Mass/Vol] 34.4 g/dL Normal 32-36 [facility] Comment on above: Performed By: #### L 100.0100, L500.2500, L500.4100 #### [facility] [address] [place], [address] MCV (RBC) [Entitic vol] 84.5 fL Normal 80-[address] [facility] Comment on above: Performed By: #### L 100.0100, L500.2500, L500.4100 #### [facility] [address] [place], [address] Monocytes/100 WBC (Bld) 9.6 % Normal 0-[address] [facility] Comment on above: Performed By: #### L 100.0100, L500.2500, L500.4100 #### [facility] [address] [place], [address] Neutrophils/100 WBC (Bld) 58.2 % Normal 47-70 [facility] Comment on above: Performed By: #### L 100.0100, L500.2500, L500.4100 #### [facility] [address] [place], [address] Nucleated RBC (Bld) [#/Vol] 0 10*3/uL Normal 0-5 [facility] Comment on above: Performed By: #### L 100.0100, L500.2500, L500.4100 #### [facility] [address] [place], [address] Platelet mean volume (Bld) [Entitic vol] 10.0 fL Normal 6.2-12.0 [facility] Comment on above: Performed By: #### L 100.0100, L500.2500, L500.4100 #### [facility] [address] [place], [address] Platelets (Bld) [#/Vol] 131 10*3/uL Low 150-450 [facility] Comment on above: Performed By: #### L 100.0100, L500.2500, L500.4100 #### [facility] [address] [place], [address] RBC (Bld) [#/Vol] 4.71 10*6/uL Normal 4.6-6.2 [facility] Comment on above: Performed By: #### L 100.0100, L500.2500, L500.4100 #### [facility] [address] [place], [address] RDW SD 39.8 fl Normal 35.1-43.9 [facility] Comment on above: Performed By: #### L 100.0100, L500.2500, L500.4100 #### [facility] [address] [place], [address] WBC (Bld) [#/Vol] 5.9 10*3/uL Normal 4.4-11.0 [facility] Comment on above: Performed By: #### L 100.0100, L500.2500, L500.4100 #### [facility] [address] [place], [place], [address] CRPon 12-02-2024 C-REACTIVE PROT < 3.00 Normal 0.0-3.0 [facility] Comment on above: Performed By: #### L 499.0042 #### [facility] [address] [place], [place], [address] Calculated very low density lipoprotein (VLDL) cholesterol measurementOrdered By: Temi Katz on 12-02-2024 Calculated very low density lipoprotein (VLDL) cholesterol measurement 212 mg/dL High 5-40 [facility] Carbon dioxide, total [Moles /volume] in Central venous bloodOrdered By: Temi Katz on 12-02-2024 CO2 [Moles/Vol] 14.7 mmol/L Low 21.0-32.0 [facility] Chloride assayOrdered By: Tad Katz on 12-02-2024 Chloride [Moles/Vol] 106 mmol/L 98-108 [facility] Discharge Instructionon Discharge Instruction [facility] Medical Records Department [address] [place] [address] Instructions for Home/Discharge Instructions 12/02/24 1603 MR#: [id number] Acct: [id number] Name: KRISHAN BURNHAM Rep #: [id number] : 1965 59 From: Temi Katz MD PCP: [facility] Status:ADM DAVIAN Discharge Instructions DC O2, CPAP, BIPAP needs Home O2 Discharge instructions: No Dressing / Incision Discharge Activity: - (Increase activity as tolerated) Follow Up Care Test Results: Test results from this visit will be discussed in further detail at your follow-up appointment, if applicable. Discharge Plan Admission Admit Date/Time: 12/01/24 14:10 Primary Reason for Your Visit: Abnormal neurological symptoms Attending Provider: Temi Katz Primary Care Provider: [facility] Consulting Providers: Nehemiah Metzger; Delores Mcclendon; Lily Smith; Judy Garcia; Liv Rm; Michael Hanna; Jaquelin Sloan; Dylan Tipton; Enrike Ulrich; Moe Herrera; Deya Woodward; Shelia Weathers; Collin Covington; Tracie Houston; John Escalona; Nelda Ayala; Figueroa Joshi; Gareth Maya; Jimmie Chavez; Kellen Dunbar; Latricia Gross Instructions Patient Instructions: TIA Dc Additional Instructions / Restrictions: DISCHARGE INSTRUCTIONS PLEASE READ *Please take this with you to your next doctors appointment* -It is recommended that you take an aspirin daily, you indicated that you are not taking Plavix so this has been discontinued off of your medicine list - Advised that you follow-up with your primary care physician regarding your elevated cholesterol and continue to take your rosuvastatin, you also need to continue your Jardiance but will need to follow-up with your primary care doctor regarding your blood sugars still being elevated -Please call upon discharge to schedule a close follow-up with your neurologist -Please call your primary care provider's office upon discharge to schedule a hospital follow up within 1 week. -For any concerning signs or symptoms please call 911 or proceed to the nearest emergency department Discharge Orders/Prescriptions Prescriptions: New aspirin 81 mg Tablet,Chewable 81 mg PO BREAKFAST 30 Days Qty: 30 0RF Continued propranolol 10 mg tablet 10 mg PO BID duloxetine 60 mg capsule,delayed release(DR/EC) 120 mg PO DAILY pantoprazole 40 mg tablet,delayed release (DR/EC) 40 mg PO QDAY testosterone cypionate [Depo-Testosterone] 200 mg/mL oil 200 mg IM Q2W rosuvastatin 20 mg tablet 20 mg PO QDAY melatonin 3 MG tablet 9 mg PO QHS trazodone 100 MG tablet 300 mg PO QHS famotidine 20 MG tablet 20 mg PO BID prazosin 5 mg Capsule 10 mg PO QHS diltiazem HCl 60 mg Tablet 60 mg PO BID cholecalciferol (vitamin D3) 50 mcg (2,000 unit) Tablet 50 mcg PO DAILY Jardiance 25 mg Tablet 25 mg PO DAILY Rytary 36.25-145 mg Capsule, Extended Release 4 cap PO 4X/DAY Rx Instructions: takes at 7am,11am,3pm,7pm DO NOT CRUSH OR CHEW, SWALLOW WHOLE diclofenac sodium 1 % gel 4 g topical BID PRN (Reason: OSTEOARTHRITIS) gabapentin 300 mg capsule 300 mg PO QHS sildenafil 100 mg tablet 100 mg PO DAILY PRN (Reason: sexual activity) hydrochlorothiazide 12.5 mg capsule 12.5 mg PO DAILY Patient Comments: I DON'T TAKE IT BECAUSE IT MAKES ME PEE ALL THE TIME. Rx Instructions: TAKE WITH FOOD quetiapine 25 mg tablet 75 mg PO QHS clonazepam [Klonopin] 1 mg tablet 1 mg PO QHS Rx Instructions: administer 30 minutes before bedtime Discontinued clopidogrel 75 mg tablet 75 mg PO DAILY Patient Comments: NO ONE CAN AGREE UPON WHATEVER SO, I WON'T TAKE IT. HE WAS TRYING TO PUSH DEEP BRAIN STIMULATION, SO I WOULD'VE HAD TO COME OFF OF THAT Referrals / Follow Up: [place] [Primary Care Provider, None] - Within 1 Week Disposition Disposition (needs filled in before D/C Order can be placed): Home, Self Care 12/02/24 1604 Temi Katz MD CC: Judy Garcia; Tracie Houston; Figueroa Joshi; Liv Rm MD; Lily Smith MD; Nehemiah Metzger MD; Dr. Delores Mcclendon MD; Dr. Michael Hanna MD; Dr. Jaquelin Sloan MD; Dr. Enrike Ulrich MD; Dr. Dylan Tipton MD; Dr. Moe Herrera MD; Dr. Deya Woodward DO; Dr. Collin Covington DO; Dr. Nelda Ayala MD; Dr. John Escalona MD; Dr. Gareth Maya MD; Dr. Jimmie Chavez MD; Dr. Kellen Dunbar MD; Shelia Weathers DO; [facility]; Latricia Gross MD Signed Normal [facility] Electrocardiogram reportOrde red By: Jose Seth on 12-02-2024 EKG study [facility] [address] [place] [address] 12 Lead EKG 12/01/24 1245 MR#: [id number] Acct: [id number] Name: KRISHAN BURNHAM Rep #:[id number] : 1965 59 From: Jose Seth MD Attending Dr: Dr. Temi Katz MD Status: ADM DAVIAN Ordering Dr: Ermias German DO Date: Location: [facility] Sex: M C Admitted: 12/01/24 Test Reason : Blood Pressure : */* mmHG Vent. Rate : 80 BPM Atrial Rate : 80 BPM P-R Int : 182 ms QRS Dur : 84 ms QT Int : 374 ms P-R-T Axes : 36 -19 -2 degrees QTcB Int : 431 ms Normal sinus rhythm Normal ECG Confirmed by ROLO REDD, JOSE ([id number]), writer editor BRET ARCOS ([id number]) on 12/02/2024 8:38:13 AM Referred By: Confirmed By: JOSE SETH MD 12/02/24 0838 Date _ Jose Seth MD CC: Dr. Temi Katz MD; Dr. Ermias German DO; [facility] ~ Signed [facility] Other Phone: Eosinophil percentageOrdered By: Temi Katz on 12-02-2024 Eosinophils/100 WBC (Bld) 4.6 % 0-5 [facility] Erythrocyte Sed Rateon 12-02 SED RATE 3 mm/hr Normal 0-20 [facility] Comment on above: Performed By: #### L 101.9900 #### [facility] [address] [place] [address], [address] Erythrocyte distribution wid th ratioOrdered By: Temi Katz on 12-02-2024 Erythrocyte distribution width (RBC) [Ratio] 13.1 % 11.6-14.6 [facility] Erythrocyte distribution wid th standard deviationOrdered By: Temi Katz on 12-02-2024 Erythrocyte distribution width (RBC) [Ratio] 39.8 fl 35.1-43.9 [facility] Erythrocyte sedimentation ra teOrdered By: Temi Katz on 12-02-2024 ESR (Bld) [Velocity] 3 mm/h 0-20 [facility] Glomerular filtration rate ( GFR) estimation/1.73 sq m using serum, plasma, or whole bOrdered By: Temi Katz on 12-02-2024 GFR/1.73 sq M.predicted among non-blacks MDRD (S/P/Bld) [Vol rate/Area] 99 mL/min/{1.73_m2} >60 [facility] Comment on above: mL/min/1.73m2 CKD-EP I Creatinine Equation (2020) Glucose measurement at [facility] deOrdered By: Temi Katz on 12-02-2024 Glucose [Mass/Vol] 165 mg/dL High 74-106 [facility] Comment on above: MANAGEMENT OF PATIEN T CARE PER NURSING PROTOCOL Glucose [Mass/Vol] 128 mg/dL High 74-106 [facility] Comment on above: MANAGEMENT OF PATIEN T CARE PER NURSING PROTOCOL Hematocrit Auto (Bld) [Volum e fraction]Ordered By: Temi Katz on 12-02-2024 Hematocrit (Bld) [Volume fraction] 39.8 % Low 40-54 [facility] Hemoglobin A1con 12-02-2024 HbA1c (Bld) [Mass fraction] 8.7 % High <=5.6 [facility] Comment on above: Result Comment: Norm al < 5.7 % Prediabetic 5.7 - 6.4 % Diabetic >or= 6.5 % Please note range changes. Performed By: #### L 501.9985 #### [facility] Laboratory [facility] [address] [place], [place], [id number] Hemoglobin A1c percentageOrd ered By: Temi Katz on 12-02-2024 HbA1c (Bld) [Mass fraction] 8.7 % High <5.7 [facility] Comment on above: Normal < 5.7 % Predi abetic 5.7 - 6.4 % Diabetic >or= 6.5 % Please note range changes. Hemoglobin measurementOrdere d By: Temi Katz on 12-02-2024 Hemoglobin (Bld) [Mass/Vol] 13.7 g/dL 13.0-16.5 [facility] Immature granulocytes/100 WB C Auto (Bld)Ordered By: Temi Katz on 12-02-2024 Immature granulocytes/100 WBC (Bld) 0.500 % 0.0-0.9 [facility] Comment on above: IG% - Immature Granu locytes (promyelocytes, myelocytes and metamyelocytes) > 1% indicates that a LEFT SHIFT is Present. LDL calc ser/plasOrdered By: Temi Katz on 12-02-2024 Cholesterol in LDL [Mass/Vol] 2 mg/dL [facility] Comment on above: Xaqvhsxlss=037-230 m g/dL & Higher Cijk=790 mg/dL or greaterFriedwald Equation for LDL-C Lipid Profileon 12-02-2024 CHOL:HDL 10.73 Normal [facility] Comment on above: Order Comment: Comme nts: NPO at [place] prior to lipid panel Performed By: #### L 499.0042 #### [facility] [address] [facility] [address] [facility] [id number] ([phone]) Cholesterol [Mass/Vol] 236 mg/dL High <=200 [facility] Comment on above: Order Comment: Comme nts: NPO at [place] prior to lipid panel Result Comment: Chol esterol level, Desirable <200 mg/dL Borderline high cholesterol 200-239 mg/dL High cholesterol >=240 mg/dL Recommendations of the NCEP Adult Treatment Panel for the following risk-cutoff thresholds for the [place] population. Performed By: #### L 499.0042 #### [facility] [address] [facility] [id number] ([phone]) Cholesterol in HDL [Mass/Vol] 22 mg/dL Low [facility] Comment on above: Order Comment: Comme nts: NPO at [place] prior to lipid panel Result Comment: Tona onal Cholesterol Education Program (NCEP) guidelines: <40 mg/dL: Low HDL-cholesterol (major risk factor for CHD) >= 60 mg/dL: High HDL-cholesterol (negative risk factor for CHD) HDL-cholesterol is affected by a number of factors, e.g. smoking, exercise, hormones, sex and age. Performed By: #### L 499.0042 #### [facility] [address] [place], [address] Cholesterol in LDL [Mass/Vol] 2 mg/dL Normal [facility] Comment on above: Order Comment: Comme nts: NPO at [place] prior to lipid panel Result Comment: Bord lidzli=526-484 mg/dL Higher Beji=717 mg/dL or greater Friedwald Equation for LDL-C Performed By: #### L 499.0042 #### [facility] [address] [place], [address] Cholesterol in VLDL [Mass/Vol] 212 mg/dL High 5-40 [facility] Comment on above: Order Comment: Comme nts: NPO at [place] prior to lipid panel Performed By: #### L 499.0042 #### [facility] [address] [place], [address] Triglyceride [Mass/Vol] 1059 mg/dL High [facility] Comment on above: Order Comment: Comme nts: NPO at [place] prior to lipid panel Result Comment: The drugs N-Acetylcysteine and Metamizole may falsely depress this assay. Normal range: <150 mg/dL Borderline High: 150-199 mg/dL High: 200-499 mg/dL Very High: >500 mg/dL Performed By: #### L 499.0042 #### [facility] [address] [place], [address] MCV (mean corpuscular volume ) determinationOrdered By: Temi Katz on 12-02-2024 MCV (RBC) [Entitic vol] 84.5 fL 80-[address] [facility] MR/CON.PCM.NEon 12-02-2024 MR/CON.PCM.NE [facility] Medical Records Department [address] [place] [address] Consultation - Neurology 12/02/24 1114 MR#: [id number] Acct: [id number] Name: KRISHAN BURNHAM Rep #: [id number] : 1965 59 From: Tracie Houston MD PCP: [facility] Status:ADM DAVIAN Location: [place] [address] Assessment and Plan: Neuro Assessment/Plan KRISHAN BURNHAM is a 59 M with PD, being evaluated by Teleneurology for headache, left sided tunnelled vision and left sided facial tingling that lasted for couple of hours and now resolved. Also complained of swallowing difficulty for at least a year that is already been worked up as an outpatient. Also complained of joint pains. Symptoms concerning for migraine with aura vs TIA. Recommend ESR,CRP given headache with visual symptoms.Doesn't endorse jaw claudication however does endorse fatigue while chewing however at this point all symptoms resolved.Complete stroke work that include Echo,MRI brain (pending),LDL,HBA1C. Continue with aspirin and statin. I personally attended this patient and spent a total time of 55 minutes evaluating this patient including clinical assessment, review of chart, medical history imaging, and determining appropriate treatment and workup. HPI Consult Data Date of Consult: 12/02/24 HPI Narrative HPI Narrative: KRISHAN BURNHAM, is a 59 M who presents with left sided tunnelled vision along with headache and left facial tingling that lasted for couple of hours. Also complained of joint pains. Symptoms resolved on my evaluation. Also complained of difficulty swallowing that has been going on for last year and has already been worked up as an outpatient. Denies difficulty breathing. [facility] Medical History BMI 34.0-34.9,adult Left ventricular hypertrophy [...] 05/12/19 4 History trazodone 100 mg tablet 300 mg PO QHS SLEEP 05/12/1907/31 History famotidine 20 mg tablet 20 mg PO BID GERD 02/17/20 4 History propranolol 10 mg tablet 10 mg PO BID HYPERTENSION AND 01/2808/02/23 History ANXIETY carbidopa ER 36.25 mg-levodopa 145 4 cap PO 4X/DAY Parkinsons 11/3008/02/23 History mg capsule,extended release (Rytary) cholecalciferol (vitamin D3) 50 50 mcg PO DAILY SUPPLEMENT 2 08/02/23 History mcg (2,000 unit) tablet diltiazem HCl 60 mg tablet 60 mg PO BID HYPERTENSION/AGINA 03/16/23 History empagliflozin 25 mg tablet 25 mg PO DAILY DIABETES 11/30/21 0 08/02/23 History (Jardiance) prazosin 5 mg capsule 10 mg PO QHS HYPERTENSION 11/30/21 08/02/23 History duloxetine 60 mg capsule,delayed 120 mg PO DAILY DEPRESSION 3 08/02/23 History release diclofenac sodium 1 % topical gel 4 g topical BID PRN OSTEOARTHRITI S 03/16/23 Unknown History gabapentin 300 mg capsule 300 mg PO QHS RESTLESS LEG SYNDROM E 03/16/23 03/15/23 History sildenafil 100 mg tablet 100 mg PO DAILY PRN sexual activit y 03/16/23 Unknown History pantoprazole 40 mg tablet,delayed 40 mg PO QDAY GERD 11/25/24 Unkno wn History release rosuvastatin 20 mg tablet 20 mg PO QDAY HIGH CHOLESTEROL Unknown History testosterone cypionate 200 mg/mL 200 mg IM Q2W LOW TESTOSTERONE Unknown History intramuscular oil (Depo-Testosterone) clonazepam 1 mg tablet (Klonopin) 1 mg PO QHS PANIC DISORDER Unknown History clopidogrel 75 mg tablet 75 mg PO DAILY STROKE PREVENTION 1 Unknown History hydrochlorothiazide 12.5 mg capsule 12.5 mg PO DAILY HYPERTENSION 1 Unknown History quetiapine 25 mg tablet 75 mg PO QHS NIGHT TERRORS 5 Unknown History Allergy/AdvReac Type Severity Reaction Status Date / Time No Known Allergies Allergy Verified 12/01/24 12:27 Family History (Updated 11/25/24 @ 08:39 by Aisha Mckeon) Mother Heart disease Hypertension High cholesterol Cancer skin cancer Thyroid disorder Diabetes Father Hea (more content not included)... Normal [facility] Magnetic resonance imaging r eportOrdered By: David Shore on 12-02-2024 Study report [facility] [address] [place] [address] Brain without Contrast MR#: [id number] Acct: [id number] Name: KRISHAN BURNHAM Rep #: [id number] : 1965 M 59 From: Salvador Shore MD PCP: [facility] Status: ADM DAVIAN Study:Brain without Contrast Date of Exam: 12/01/24 Exam# [id number] Ordering Dr: Srinivas Katz MD PROCEDURE: BRAIN WITHOUT CONTRAST 12/02/2024 REASON FOR EXAM: CVA R/O, LEFT SIDED FACIAL PARASTHESIAS TECHNIQUE: Procedure Code: MRIBR Modality: MR Procedure: BRAIN WITHOUT CONTRAST Multiplanar and multisequence images were obtained. COMPARISON: CT brain without contrast, CTA head and neck, 12/01/2024. FINDINGS: There is a normal sulcal pattern and gyral configuration. There is no evidence of acute intracranial hemorrhage or infarction. The olguin-white differentiation is well preserved. There is no evidence of restricted diffusion. The ventricles and basilar cisterns are normal. There are normal flow voids demonstrated in the recognized intracranial vessels. The cerebellum and brainstem are unremarkable. The cerebellar pontine angles arenormal. The craniovertebral junction is normal. The sella and suprasellar regions are normal. The orbits and retro-orbital regions are unremarkable. The nasal septum is deviated to the right. Status post bilateral uncinectomy and middle meatal antrostomy. There is pansinusitis with diffuse mucoperiosteal thickening and mucoceles in both maxillary sinuses. The mastoid air cells are clear. There is normal bone marrow signal in the skull base and calvarium. MRI/Brain without Contrast IMPRESSION: 1. No evidence of intracranial pathology. 2. Pansinusitis with bilateral maxillary mucoceles. 3. Status post FESS as described. Reading Location: [id number] CC: Dr. Temi Katz MD; [facility] ~ Space Control Agent: Signed [facility] Work Phone: Mean corpuscular hemoglobin (MCH) determinationOrdered By: Temi Katz on 12-02-2024 MCH (RBC) [Entitic mass] 29.1 pg 27.0-32.0 [facility] Mean corpuscular hemoglobin concentration (MCHC) determinationOrdered By: Temi Katz on 12-02-2024 MCHC (RBC) [Mass/Vol] 34.4 g/dL 32-36 [facility] Mean platelet volume determi nationOrdered By: Temi Katz on 12-02-2024 Platelet mean volume (Bld) [Entitic vol] 10.0 fL 6.2-12.0 [facility] Monocyte percentageOrdered B y: Temi Katz on 12-02-2024 Monocytes/100 WBC (Bld) 9.6 % 0-[address] [facility] Neutrophil percentageOrdered By: Temi Katz on 12-02-2024 Neutrophils/100 WBC (Bld) 58.2 % 47-70 [facility] Nucleated red blood cell per centageOrdered By: Temi Katz on 12-02-2024 Nucleated RBC/100 WBC (Bld) [Ratio] 0 % 0-5 [facility] Platelet countOrdered By: Tad Katz on 12-02-2024 Platelets (Bld) [#/Vol] 131 10*3/uL Low 150-450 [facility] Potassium measurement (mass/ volume)Ordered By: Temi Katz on 12-02-2024 Potassium (Unsp spec) [Mass/Vol] 3.8 mmol/L 3.3-5.1 [facility] RBC Auto (Bld) [#/Vol]Ordere d By: Temi Katz on 12-02-2024 RBC (Bld) [#/Vol] 4.71 10*6/uL 4.6-6.2 [facility] Screening total cholesterol/ high density lipoprotein (HDL) cholesterol ratioOrdered By: Temi Katz on 12-02-2024 Cholesterol.total/Choles terol in HDL [Mass ratio] 10.73 {ratio} [facility] Serum creatinine measurement (mass/volume)Ordered By: Temi Katz on 12-02-2024 Creatinine [Mass/Vol] 0.87 mg/dL 0.70-1.20 [facility] Serum glucose measurement (m ass/volume)Ordered By: Temi Katz on 12-02-2024 Glucose [Mass/Vol] 142 mg/dL High 70-99 [facility] Serum or plasma C reactive p rotein measurement (mass/volume)Ordered By: Temi Katz on 12-02-2024 CRP [Mass/Vol] mg/L 0.0-3.0 [facility] Serum or plasma calcium noy urement (mass/volume)Ordered By: Temi Katz on 12-02-2024 Calcium [Mass/Vol] 8.5 mg/dL 7.6-11.0 [facility] Serum or plasma cholesterol in HDL measurement (mass/volume)Ordered By: Temi Katz on 12-02-2024 Cholesterol in HDL [Mass/Vol] 22 mg/dL Low >40 [facility] Comment on above: National Cholesterol Education Program (NCEP) guidelines:<40 mg/dL: Low HDL-cholesterol (major risk factor for CHD)>= 60 mg/dL: High HDL-cholesterol (negative risk factor for CHD)HDL-cholesterol is affected by a number of factors, e.g. smoking, exercise, hormones, sex and age. Serum or plasma cholesterol measurement (mass/volume)Ordered By: Temi Katz on 12-02-2024 Cholesterol [Mass/Vol] 236 mg/dL High <201 [facility] Comment on above: Cholesterol level, D esirable <200 mg/dLBorderline high cholesterol 200-239 mg/dLHigh cholesterol >=240 mg/dLRecommendations of the NCEP Adult Treatment Panel for the following risk-cutoff thresholds for the [place] population. Serum or plasma urea nitroge n measurement (mass/volume)Ordered By: Temi Katz on 12-02-2024 Urea nitrogen [Mass/Vol] 16 mg/dL 4-19 [facility] Sodium levelOrdered By: Adama Katz on 12-02-2024 Sodium [Moles/Vol] 136 mmol/L 133-145 [facility] Triglycerides measurementOrd ered By: Temi Katz on 12-02-2024 Triglyceride [Mass/Vol] 1059 mg/dL High <[address] [facility] Comment on above: The drugs N-Acetylcy steine and Metamizole may falsely depress this assay. Normal range: <150 mg/dLBorderline High: 150-199 mg/dLHigh: 200-499 mg/dLVery High: >500 mg/dL White blood cell (WBC) count Ordered By: Temi Katz on 12-02-2024 WBC (Bld) [#/Vol] 5.9 10*3/uL 4.4-11.0 [facility] 12 Lead EKGon 12-01-2024 12 Lead EKG [facility] [address] [place] [address] 12 Lead EKG 12/01/24 1245 MR#: [id number] Acct: [id number] Name: KRISHAN BURNHAM Rep #: [id number] : 1965 59 From: Jose Seth MD Attending Dr: Dr. Temi Katz MD Status: ADM DAVIAN Ordering Dr: Ermias German DO Date: 12/01/24 Location: [facility] Sex: M C Admitted: 12/01/24 Test Reason : Blood Pressure : */* mmHG Vent. Rate : 80 BPM Atrial Rate : 80 BPM P-R Int : 182 ms QRS Dur : 84 ms QT Int : 374 ms P-R-T Axes : 36 -19 -2 degrees QTcB Int : 431 ms Normal sinus rhythm Normal ECG Confirmed by ROLO REDD, JOSE ([id number]), writer editor BRET ARCOS ([id number]) on 12/02/2024 8:38:13 AM Referred By: Confirmed By: JOSE SETH MD 12/02/24 0838 Date Jose Seth MD CC: Dr. Temi Katz MD; Dr. Ermias German DO; [facility] Signed Normal [facility] Activated partial thrombopla stin time (aPTT) in platelet poor plasma by coagulation aOrdered By: Ermias German on 12-01-2024 aPTT Coag (PPP) [Time] 26.1 s 24.1-36.2 [facility] Basic Metabolic Profile (BMP )on 12-01-2024 BUN/CRE 13.4 RATIO Normal 12-16 [facility] Comment on above: Performed By: #### L 501.080 #### [facility] [address] [place], [address] Calcium [Mass/Vol] 9.2 mg/dL Normal 7.6-11.0 [facility] Comment on above: Performed By: #### L 501.080 #### [facility] [address] [place], [address] Chloride [Moles/Vol] 102 mmol/L Normal 98-108 [facility] Comment on above: Performed By: #### L 501.080 #### [facility] [address] [place], [address] CO2 [Moles/Vol] 13.0 mmol/L Low 21.0-32.0 [facility] Comment on above: Performed By: #### L 501.080 #### [facility] [address] [place], [address] Creatinine [Mass/Vol] 1.05 mg/dL Normal 0.70-1.20 [facility] Comment on above: Performed By: #### L 501.080 #### [facility] [address] [place], [address] ECRCL 92.15 ml/min Normal 50-250 [facility] Comment on above: Performed By: #### L 501.080 #### [facility] [address] [place], [address] GAP 20 High 5-15 [facility] Comment on above: Performed By: #### L 501.080 #### [facility] [address] [place], [address] GFR/1.73 sq M.predicted among non-blacks MDRD (S/P/Bld) [Vol rate/Area] 82 mL/min/{1.73_m2} Normal >60 [facility] Comment on above: Result Comment: mL/m in/1.73m2 CKD-EPI Creatinine Equation (2020) Performed By: #### L 501.080 #### [facility] [address] [place], [address] Glucose [Mass/Vol] 178 mg/dL High 70-99 [facility] Comment on above: Performed By: #### L 501.080 #### [facility] [address] [place], [address] Potassium [Moles/Vol] 4.3 mmol/L Normal 3.3-5.1 [facility] Comment on above: Result Comment: Hemo lysis present, Results??could be affected. ?? Performed By: #### L 501.080 #### [facility] [address] [place], [address] Sodium [Moles/Vol] 135 mmol/L Normal 133-145 [facility] Comment on above: Performed By: #### L 501.080 #### [facility] [address] [place], [address] Urea nitrogen [Mass/Vol] 14 mg/dL Normal 4-19 [facility] Comment on above: Performed By: #### L 501.080 #### [facility] [address] [place], [address] Bedside Glucoseon 12-01-2024 FINGERSTICK GLU 123 mg/dL High 74-106 [facility] Comment on above: Result Comment: LYNN GEMENT OF PATIENT CARE PER NURSING PROTOCOL Performed By: #### L 501.080 ####[facility] [address] [place], [address] FINGERSTICK GLU 118 mg/dL High 74-106 [facility] Comment on above: Result Comment: LYNN GEMENT OF PATIENT CARE PER NURSING PROTOCOL Performed By: #### L 501.080 #### [facility] [address] [place], [address] Beta-Hydroxbytyrateon 2024 BETA-HYDROXYBUT 0.1 mmol/L Normal 0.0-0.3 [facility] Comment on above: Performed By: #### L 501.080 #### [facility] [address] [place], [place], [address] Beta-hydroxybutyrateOrdered By: Temi Katz on 12-01-2024 Beta hydroxybutyrate [Mass/Vol] 0.1 mmol/L 0.0-0.3 [facility] Bilirubin Test strip Ql (U)O rdered By: Temi Katz on 12-01-2024 Bilirubin Ql (U) Negative Negative [facility] Brain without Contraston Brain without Contrast [facility] [address] [place], [place] [address] Brain without Contrast MR#: [id number] Acct: [id number] Name: KRISHAN BURNHAM Rep #: [id number] : 1965 M 59 From: David Shore MD PCP: [facility] Status: ADM DAVIAN Study: Brain without Contrast Date of Exam: 12/01/24 Exam# [id number] Ordering Dr: Temi Katz MD PROCEDURE: BRAIN WITHOUT CONTRAST 12/02/2024 REASON FOR EXAM: CVA R/O, LEFT SIDED FACIAL PARASTHESIAS TECHNIQUE: Procedure Code: MRIBR Modality: MR Procedure: BRAIN WITHOUT CONTRAST Multiplanar and multisequence images were obtained. COMPARISON: CT brain without contrast, CTA head and neck, 12/01/2024. FINDINGS: There is a normal sulcal pattern and gyral configuration. There is no evidence of acute intracranial hemorrhage or infarction. The olguin-white differentiation is well preserved. There is no evidence of restricted diffusion. The ventricles and basilar cisterns are normal. There are normal flow voids demonstrated in the recognized intracranial vessels. The cerebellum and brainstem are unremarkable. The cerebellar pontine angles are normal. The craniovertebral junction is normal. The sella and suprasellar regions are normal. The orbits and retro-orbital regions are unremarkable. The nasal septum is deviated to the right. Status post bilateral uncinectomy and middle meatal antrostomy. There is pansinusitis with diffuse mucoperiosteal thickening and mucoceles in both maxillary sinuses. The mastoid air cells are clear. There is normal bone marrow signal in the skull base and calvarium. MRI/Brain without Contrast IMPRESSION: 1. No evidence of intracranial pathology. 2. Pansinusitis with bilateral maxillary mucoceles. 3. Status post FESS as described. Reading Location: [id number] CC: Dr. Temi Katz MD; [facility] Space Control Agent: Signed Normal [facility] CBC W/Diff, Automatedon 10-0 -2024 Absolute Lymph 1.57 X10 3/uL Normal 0.83-4.51 [facility] Comment on above: Performed By: #### L 501.080 #### [facility] [address] [place], [address] Absolute Neut 3.9 X10 3/uL Normal 2.0-7.7 [facility] Comment on above: Performed By: #### L 501.080 #### [facility] [address] [place], [address] Basophils/100 WBC (Bld) 0.6 % Normal 0-[address] [facility] Comment on above: Performed By: #### L 501.080 #### [facility] [address] [place], [address] Eosinophils/100 WBC (Bld) 3.7 % Normal 0-5 [facility] Comment on above: Performed By: #### L 501.080 #### [facility] [address] [place], [address] Erythrocyte distribution width (RBC) [Ratio] 13.2 % Normal 11.6-14.6 [facility] Comment on above: Performed By: #### L 501.080 #### [facility] [address] [place], [address] Hematocrit (Bld) [Volume fraction] 43.6 % Normal 40-54 [facility] Comment on above: Performed By: #### L 501.080 #### [facility] [address] [place], [address] Hemoglobin (Bld) [Mass/Vol] 15.7 g/dL Normal 13.0-16.5 [facility] Comment on above: Performed By: #### L 501.080 #### [facility] [address] [place], [address] IG% 0.200 Normal 0.0-0.9 [facility] Comment on above: Result Comment: IG% - Immature Granulocytes (promyelocytes, myelocytes and metamyelocytes) > 1% indicates that a LEFT SHIFT is Present. Performed By: #### L 501.080 #### [facility] [address] [place], [address] Lymphocytes/100 WBC (Bld) 25.0 % Normal 19-41 [facility] Comment on above: Performed By: #### L 501.080 #### [facility] [address] [place], [address] MCH (RBC) [Entitic mass] 29.5 pg Normal 27.0-32.0 [facility] Comment on above: Performed By: #### L 501.080 #### [facility] [address] [place], [address] MCHC (RBC) [Mass/Vol] 36.0 g/dL Normal 32-36 [facility] Comment on above: Performed By: #### L 501.080 #### [facility] [address] [place], [address] MCV (RBC) [Entitic vol] 82.0 fL Normal 80-[address] [facility] Comment on above: Performed By: #### L 501.080 #### [facility] [address] [place], [address] Monocytes/100 WBC (Bld) 8.4 % Normal 0-[address] [facility] Comment on above: Performed By: #### L 501.080 #### [facility] [address] [place], [address] Neutrophils/100 WBC (Bld) 62.1 % Normal 47-70 [facility] Comment on above: Performed By: #### L 501.080 #### [facility] [address] [place], [address] Nucleated RBC (Bld) [#/Vol] 0 10*3/uL Normal 0-5 [facility] Comment on above: Performed By: #### L 501.080 #### [facility] [address] [place], [address] Platelet mean volume (Bld) [Entitic vol] 9.4 fL Normal 6.2-12.0 [facility] Comment on above: Performed By: #### L 501.080 #### [facility] [address] [place], [address] Platelets (Bld) [#/Vol] 158 10*3/uL Normal 150-450 [facility] Comment on above: Performed By: #### L 501.080 #### [facility] [address] [place], [address] RBC (Bld) [#/Vol] 5.32 10*6/uL Normal 4.6-6.2 [facility] Comment on above: Performed By: #### L 501.080 #### [facility] [address] [place], [address] RDW SD 38.3 fl Normal 35.1-43.9 [facility] Comment on above: Performed By: #### L 501.080 #### [facility] [address] [place], [address] WBC (Bld) [#/Vol] 6.3 10*3/uL Normal 4.4-11.0 [facility] Comment on above: Performed By: #### L 501.080 #### [facility] [address] [place], [address] CO2 (BldV) [Moles/Vol]Ordere d By: Ermias German on 12-01-2024 CO2 [Moles/Vol] 28 mmol/L 23-33 [facility] Emergency Department Summary on 12-01-2024 Emergency Department Summary [facility] Medical Records Department [address] [place] [address] Emergency Department Summary 12/01/24 MR#: [id number] Acct: [id number] Name: KRISHAN BURNHAM Rep #: [id number] : 1965 59 From: Ermias German DO PCP: [facility] Status:ADM DAVIAN Location: [address] History of Present Illness Chief Complaint: Stroke Alert [facility] Medical History BMI 34.0-34.9,adult Left ventricular hypertrophy [...] 05/12/19 4 History trazodone 100 mg tablet 300 mg PO QHS SLEEP 05/12/1907/31 History famotidine 20 mg tablet 20 mg PO BID GERD 02/17/20 4 History propranolol 10 mg tablet 10 mg PO BID HYPERTENSION AND 01/2808/02/23 History ANXIETY carbidopa ER 36.25 mg-levodopa 145 4 cap PO 4X/DAY Parkinsons 11/3008/02/23 History mg capsule,extended release (Rytary) cholecalciferol (vitamin D3) 50 50 mcg PO DAILY SUPPLEMENT 2 08/02/23 History mcg (2,000 unit) tablet diltiazem HCl 60 mg tablet 60 mg PO BID HYPERTENSION/AGINA 03/16/23 History empagliflozin 25 mg tablet 25 mg PO DAILY DIABETES 11/30/21 0 08/02/23 History (Jardiance) prazosin 5 mg capsule 10 mg PO QHS HYPERTENSION 11/30/21 08/02/23 History duloxetine 60 mg capsule,delayed 120 mg PO DAILY DEPRESSION 3 08/02/23 History release diclofenac sodium 1 % topical gel 4 g topical BID PRN OSTEOARTHRITI S 03/16/23 Unknown History gabapentin 300 mg capsule 300 mg PO QHS RESTLESS LEG SYNDROM E 03/16/23 03/15/23 History sildenafil 100 mg tablet 100 mg PO DAILY PRN sexual activit y 03/16/23 Unknown History pantoprazole 40 mg tablet,delayed 40 mg PO QDAY GERD 11/25/24 Unkno wn History release rosuvastatin 20 mg tablet 20 mg PO QDAY HIGH CHOLESTEROL Unknown History testosterone cypionate 200 mg/mL 200 mg IM Q2W LOW TESTOSTERONE Unknown History intramuscular oil (Depo-Testosterone) clonazepam 1 mg tablet (Klonopin) 1 mg PO QHS PANIC DISORDER Unknown History clopidogrel 75 mg tablet 75 mg PO DAILY STROKE PREVENTION 1 Unknown History hydrochlorothiazide 12.5 mg capsule 12.5 mg PO DAILY HYPERTENSION 1 Unknown History quetiapine 25 mg tablet 75 mg PO QHS NIGHT TERRORS 5 Unknown History Allergy/AdvReac Type Severity Reaction Status Date / Time No Known Allergies Allergy Verified 12/01/24 12:27 Family History (Updated 11/25/24 @ 08:39 by [...] never substance use type: does not use EXAM Physical Exam Const Vital Signs: 12/01/24 12:26 12/01/24 12:26 12/01/24 12:28 Temperature 98.7 F Temperature Source Oral Pulse Rate 80 80 Respiratory Rate 16 14 Respiratory Effort Respiratory Pattern Blood Pressure 155/90 H 155/90 H Blood Pressure Mean 111 111 Pulse Ox 98 98 Oxygen Delivery Method Room Air Room Air Room Air 12/01/24 12:53 12/01/24 13:16 12/01/24 13:33 Temperature Temperature Source Pulse Rate 75 75 71 Respiratory Rate 16 14 18 Respiratory Effort Respiratory Pattern Blood Pressure 153/83 H 106/74 129/76 H Blood Pressure Mean 106 84 93 Pulse Ox 97 98 97 Oxygen Delivery Meth (more content not included)... Normal [facility] H AND P Exam - Hospitaliston 12-01-2024 H&P Exam - Hospitalist [facility] Medical Records Department [address] [place] [address] H P Exam - Hospitalist 12/01/24 1409 MR#: [id number] Acct: [id number] Name: KRISHAN BURNHAM Rep #: [id number] : 1965 59 From: Temi Katz MD PCP: [facility] Status:ADM DAVIAN Location: [place] [address]-1 HPI - General General Date of Admission: 12/01/24 Date of Service: 12/01/24 Chief Complaint: Left sided weakness HPI Narrative KRISHAN BURNHAM, is a 59-year-old male history of GERD, Parkinson's, hypertension, diabetes, CVA, depression and anxiety who presented [facility] ED 12/01/2024 due to waking up with left neck pain, left-sided tunnel vision, left-sided weakness and pain with swallowing. Stroke call made in the ED. Temp 98.7, heart rate of 80, blood pressure 155/98, respirate 16 pulse ox 98% on room air. CBC unremarkable, troponin 9, BMP with bicarb of 13 and a gap of 20 with glucose 178 otherwise within normal limits CT brain and CT head and neck no acute process, teleneurology evaluated and recommended admission for stroke rule out. Hospitalist contacted for admission. Patient evaluated at bedside. Pt reportedly woke up this AM with a right sided headache, left eye tunnel vision, whole left half of his face with tingling as well as reported weakness of left upper and lower extremity but primarily was reporting increase in joint pain in all of the joints on his left side. Additionally he reported some increased difficulty swallowing, has had difficulty swallowing recently and is supposed to undergo an outpatient swallow eval but said this morning he noticed it was worse. Presently in the ED still has slight headache and reports all of the symptoms are better than they were but still present. Denies fevers or chills, does have chronic abdominal pain with intermittent diarrhea and constipation and some nausea for which she is scheduled to undergo outpatient colonoscopy and upper endoscopy. [facility] Medical History BMI 34.0-34.9,adult Left ventricular hypertrophy [...] 05/12/19 4 History trazodone 100 mg tablet 300 mg PO QHS SLEEP 05/12/1907/31 History famotidine 20 mg tablet 20 mg PO BID GERD 02/17/20 4 History propranolol 10 mg tablet 10 mg PO BID HYPERTENSION AND 01/2808/02/23 History ANXIETY carbidopa ER 36.25 mg-levodopa 145 4 cap PO 4X/DAY Parkinsons 11/3008/02/23 History mg capsule,extended release (Rytary) cholecalciferol (vitamin D3) 50 50 mcg PO DAILY SUPPLEMENT 2 08/02/23 History mcg (2,000 unit) tablet diltiazem HCl 60 mg tablet 60 mg PO BID HYPERTENSION/AGINA 03/16/23 History empagliflozin 25 mg tablet 25 mg PO DAILY DIABETES 11/30/21 0 08/02/23 History (Jardiance) prazosin 5 mg capsule 10 mg PO QHS HYPERTENSION 11/30/21 08/02/23 History duloxetine 60 mg capsule,delayed 120 mg PO DAILY DEPRESSION 3 08/02/23 History release diclofenac sodium 1 % topical gel 4 g topical BID PRN OSTEOARTHRITI S 03/16/23 Unknown History gabapentin 300 mg capsule 300 mg PO QHS RESTLESS LEG SYNDROM E 03/16/23 03/15/23 History sildenafil 100 mg tablet 100 mg PO DAILY PRN sexual activit y 03/16/23 Unknown History pantoprazole 40 mg tablet,delayed 40 mg PO QDAY GERD 11/25/24 Unkno wn History release rosuvastatin 20 mg tablet 20 mg PO QDAY HIGH CHOLESTEROL Unknown History testosterone cypionate 200 mg/mL 200 mg IM Q2W LOW TESTOSTERONE Unknown History intramuscular oil (Depo-Testosterone) clonazepam 1 mg tablet (Klonopin) 1 mg PO QHS PANIC DISORDER Unknown History clopidogrel 75 mg tablet 75 mg PO DAILY STROKE PREVENTION 1 Unknown History hydrochlorothiazide 12.5 mg capsule 12.5 mg PO DAILY HYPERTENSION 1 Unknown History quetiapine 25 mg tablet 75 mg PO QHS NIGHT TERRORS 5 Unknown History Allergy/AdvReac Type Severity Reaction Status Date / Ti (more content not included)... Normal [facility] normalized rat io (INR) calculationOrdered By: Ermias German on 12-01-2024 INR Coag (Bld) [Relative time] 0.9 {INR} [facility] Ketones Test strip Ql (U)Ord ered By: Temi Katz on 12-01-2024 Ketones Ql (U) 5 mg/dl High Negative [facility] L501.4021on 12-01-2024 Trop T High Sen 9 ng/L Normal <=22 [facility] Comment on above: Performed By: #### L 501.080 #### [facility] [address] [place], [address] Lactic acid measurementOrder ed By: Temi Katz on 12-01-2024 Lactate [Moles/Vol] mmol/L Normal 0.0-2.0 [facility] Comment on above: Order Comment: Y Performed By: #### L 101.9900 #### [facility] [address] [place], [address] Microscopic analysis of urin e for red blood cells (RBC)Ordered By: Temi Katz on 12-01-2024 Microscopic analysis of urine for red blood cells (RBC) 0 SEEN /hpf 0-5 [facility] Mucus LM Ql (Urine sed)Order ed By: Temi Katz on 12-01-2024 Mucus Ql (Urine sed) 0 SEEN /hpf [facility] Nitrite Test strip Ql (U)Ord ered By: Temi Katz on 12-01-2024 Nitrite Ql (U) Negative Negative [facility] No Panel InformationOrdered By: Ermias German on 12-01-2024 Blood Gas Sample Site Not entered [facility] Blood Gas Specimen Type PETER [facility] Oxygen Delivery Device Not entered [facility] Partial Thromboplast Timeon 12-01-2024 aPTT Coag (Bld) [Time] 26.1 s Normal 24.1-36.2 [facility] Comment on above: Performed By: #### L 501.080 #### [facility] [address] [place], [address] Protein Test strip Ql (U)Ord ered By: Temi Katz on 12-01-2024 Protein Ql (U) 15 mg/dl High Negative [facility] Prothrombin Time w/INRon INR Coag (PPP) [Relative time] 0.9 {INR} Normal [facility] Comment on above: Performed By: #### L 501.080 #### [facility] [address] [place], [place], [address] PT Coag (PPP) [Time] 12.1 s Normal 11.7-14.9 [facility] Comment on above: Performed By: #### L 501.080 #### [facility] [address] [place], [place], [address] Prothrombin timeOrdered By: Ermias German on 12-01-2024 PT Coag (PPP) [Time] 12.1 s 11.7-14.9 [facility] STROKE Brain/Head without Co nton 12-01-2024 STROKE Brain/Head without Cont [facility] [address] [place], [place] [address] STROKE Brain/Head without Cont MR#: [id number] Acct: [id number] Name: KRISHAN BURNHAM Rep #: [id number] : 1965 M 59 From: Jason rausch MD PCP: [facility] Status: REG ER Study: STROKE Brain/Head without Cont Date of Exam: Exam# [id number] Ordering Dr: Ermias German DO PROCEDURE: STROKE BRAIN/HEAD WITHOUT CONT; STROKE CTA HEAD AND NECK W/CON 12/01/2024 REASON FOR EXAM: NEURO DEFICIT, ACUTE, STROKE SUSPECTED TECHNIQUE: Procedure Code: CTBR.ST; CTCTA.ST.HN Modality: CT Procedure: STROKE BRAIN/HEAD WITHOUT CONT; STROKE CTA HEAD AND NECK W/CON Initially a noncontrast CT of the brain is performed. Sagittal axial and reformatted images are submitted for interpretation. CTA of the head and neck is performed after intravenous administration of 100 cc of Isovue 370. Sagittal axial and coronal reformatted images are submitted for interpretation. 3D surface rendered imaging through the vasculature is obtained. Sagittal coronal reformatted MIP images are submitted for interpretation One or more dose reduction techniques were used (e.g., Automated exposure control, adjustment of the mA and/or kV according to patient size, use of iterative reconstruction technique. RADIATION DOSE SUMMARY: Head CT: DLP: 796.11 MGycm CTA head and neck: DLP: 828.51 MGycm FINDINGS: CT brain: No acute intracranial hemorrhage midline shift or mass effect is appreciated. The ventricles are normal in size and contour. There is no intra-axial mass. No subarachnoid or subdural hematoma seen. No extra-axial fluid collection or mass appreciated. Orbits are intact. Pituitary fossa is within normal limits. Posterior fossa and brainstem and cerebellar hemispheres appear normal. Mucoperiosteal thickening and opacification of the maxillary sinuses noted bilaterally. There is slight nasal septal deviation to the right of midline. Mastoid air cells are well aerated. Base of the skull and visible osseous structures appear normal. No soft tissue abnormality seen. CTA NECK: The origins of the vessels arising from the aortic arch are patent without high-grade stenosis. Right carotid artery: The right common carotid artery is patent without high-grade stenosis. The right cervical internal carotid artery is patent without hemodynamically significant stenosis. Left carotid artery: The left common carotid artery is patent without high-grade stenosis. The left cervical internal carotid artery is patent without hemodynamically significant stenosis. Cervical vertebral arteries: The cervical vertebral arteries are patent without high-grade stenosis. Assessment for carotid stenosis is performed utilizing NASCET criteria. NASCET carotid stenosis criteria: 0% - none, 1-49% - mild, 50-69% - moderate, 70-89% - severe, 90-99% - critical. % ICA stenosis = (normal distal cervical ICA diameter - narrowest cervical ICA diameter / normal distal cervical ICA diameter) x 100. CTA Head: The petrous, cavernous, and intracranial internal carotid arteries are patent without high-grade stenosis. The proximal anterior cerebral arteries are patent without high-grade stenosis. The proximal middle cerebral arteries are patent without high-grade stenosis. The intradural vertebral arteries are patent without high-grade stenosis. The basilar artery is patent without high-grade stenosis. The proximal posterior cerebral arteries are patent without high-grade stenosis. No dominant intracranial aneurysm or high flow arteriovenous malformation is identified. Ancillary findings: None. Mild degenerative disc disease at C5-6 and C6-7. CT/STROKE Brain/Head without Cont IMPRESSION: No acute intracranial abnormality. No evidence of large territorial ischemic infarct. Normal CTA of the head and neck and [id number]. Stroke Alert: No acute intracranial abnormality. No large vessel occlusion. No large territorial infarct. The critical findings in the findings and impression above were relayed directly by me by telephone to Ermias German on 12/01/2024 at 12:58 pm with readback verification. Reading Location: [facility] CC: Dr. Ermias German DO; [facility] Space Control Agent: Signed Normal [facility] STROKE CTA Head AND Neck W/C onon 12-01-2024 STROKE CTA Head AND Neck W/Con [facility] [address], [place] [address] STROKE CTA Head AND Neck W/Con MR#: [id number] Acct: [id number] Name: KRISHAN BURNHAM Rep #: [id number] : 1965 M 59 From: Jason rausch MD PCP: [facility] Status: REG ER Study: STROKE CTA Head AND Neck W/Con Date of Exam: Exam# [id number] Ordering Dr: Ermias German DO PROCEDURE: STROKE BRAIN/HEAD WITHOUT CONT; STROKE CTA HEAD AND NECK W/CON 12/01/2024 REASON FOR EXAM: NEURO DEFICIT, ACUTE, STROKE SUSPECTED TECHNIQUE: Procedure Code: CTBR.ST; CTCTA.ST.HN Modality: CT Procedure: STROKE BRAIN/HEAD WITHOUT CONT; STROKE CTA HEAD AND NECK W/CON Initially a noncontrast CT of the brain is performed. Sagittal axial and reformatted images are submitted for interpretation. CTA of the head and neck is performed after intravenous administration of 100 cc of Isovue 370. Sagittal axial and coronal reformatted images are submitted for interpretation. 3D surface rendered imaging through the vasculature is obtained. Sagittal coronal reformatted MIP images are submitted for interpretation One or more dose reduction techniques were used (e.g., Automated exposure control, adjustment of the mA and/or kV according to patient size, use of iterative reconstruction technique. RADIATION DOSE SUMMARY: Head CT: DLP: 796.11 MGycm CTA head and neck: DLP: 828.51 MGycm FINDINGS: CT brain: No acute intracranial hemorrhage midline shift or mass effect is appreciated. The ventricles are normal in size and contour. There is no intra-axial mass. No subarachnoid or subdural hematoma seen. No extra-axial fluid collection or mass appreciated. Orbits are intact. Pituitary fossa is within normal limits. Posterior fossa and brainstem and cerebellar hemispheres appear normal. Mucoperiosteal thickening and opacification of the maxillary sinuses noted bilaterally. There is slight nasal septal deviation to the right of midline. Mastoid air cells are well aerated. Base of the skull and visible osseous structures appear normal. No soft tissue abnormality seen. CTA NECK: The origins of the vessels arising from the aortic arch are patent without high-grade stenosis. Right carotid artery: The right common carotid artery is patent without high-grade stenosis. The right cervical internal carotid artery is patent without hemodynamically significant stenosis. Left carotid artery: The left common carotid artery is patent without high-grade stenosis. The left cervical internal carotid artery is patent without hemodynamically significant stenosis. Cervical vertebral arteries: The cervical vertebral arteries are patent without high-grade stenosis. Assessment for carotid stenosis is performed utilizing NASCET criteria. NASCET carotid stenosis criteria: 0% - none, 1-49% - mild, 50-69% - moderate, 70-89% - severe, 90-99% - critical. % ICA stenosis = (normal distal cervical ICA diameter - narrowest cervical ICA diameter / normal distal cervical ICA diameter) x 100. CTA Head: The petrous, cavernous, and intracranial internal carotid arteries are patent without high-grade stenosis. The proximal anterior cerebral arteries are patent without high-grade stenosis. The proximal middle cerebral arteries are patent without high-grade stenosis. The intradural vertebral arteries are patent without high-grade stenosis. The basilar artery is patent without high-grade stenosis. The proximal posterior cerebral arteries are patent without high-grade stenosis. No dominant intracranial aneurysm or high flow arteriovenous malformation is identified. Ancillary findings: None. Mild degenerative disc disease at C5-6 and C6-7. CT/STROKE CTA Head AND Neck W/Con IMPRESSION: No acute intracranial abnormality. No evidence of large territorial ischemic infarct. Normal CTA of the head and neck and [id number]-Yqbtik. Stroke Alert: No acute intracranial abnormality. No large vessel occlusion. No large territorial infarct. The critical findings in the findings and impression above were relayed directly by me by telephone to Ermias German on 12/01/2024 at 12:58 pm with readback verification. Reading Location: [facility] CC: Dr. Ermias German, DO; [facility] Space Control Agent: Signed Normal [facility] Squamous epithelial cells de tection in urine sediment by light microscopyOrdered By: Temi Katz on 12-01-2024 Epithelial cells.squamous LM Ql (Urine sed) 0 SEEN /hpf 0-5 [facility] Troponin T HS 2 HRon 025 Trop T High Sen Normal <=22 [facility] Comment on above: Result Comment: Canc elled via OM: Ordered Performed By: #### L 501.080 #### [facility] [address] [place], [place], [id number] Troponin T HS 4 HRon 025 Trop T High Sen Normal <=22 [facility] Comment on above: Result Comment: Canc elled via OM: MD Ordered Performed By: #### L 499.0043 #### [facility] [address] [place], [address] Troponin T.cardiac [Mass/vol ume] in Serum or Plasma by High sensitivity methodOrdered By: Ermias German on 12-01-2024 Troponin T.cardiac High sensitivity method [Mass/Vol] 9 ng/L Invalid Interpretation Code <22 [facility] Comment on above: Delta: 11 on 5-1109 Urinalysis, Completeon 12-01 BACTERIA 0 SEEN Normal None Seen [facility] Comment on above: Order Comment: TAZ CTOR TO SPECIFY Performed By: #### L 400.0001 #### [facility] [address] [place], [address] EPI,SQUAMOUS 0 SEEN Normal 0-5 [facility] Comment on above: Order Comment: TAZ CTOR TO SPECIFY Performed By: #### L 400.0001 #### [facility] [address] [place], [address] Mucus Ql (Urine sed) 0 SEEN Normal [facility] Comment on above: Order Comment: COLLE CTOR TO SPECIFY Performed By: #### L 400.0001 #### [facility] [address] [place], [place], [id number] RBC 0 SEEN Normal 0-5 [facility] Comment on above: Order Comment: TAZ CTOR TO SPECIFY Performed By: #### L 400.0001 #### [facility] [address] [place], [place], [address] WBC 0 SEEN Normal 0-5 [facility] Comment on above: Order Comment: TAZ CTOR TO SPECIFY Performed By: #### L 400.0001 #### [facility] [address] [place], [place], [address] Urine clarityOrdered By: Venice Katz on 12-01-2024 Clarity (U) Clear Clear [facility] Urine color determinationOrd ered By: Temi Katz on 12-01-2024 Color (U) Yellow Yellow [facility] Urine glucose detectionOrder ed By: Temi Katz on 12-01-2024 Glucose Ql (U) 1000 mg/dl High Normal [facility] Urine leukocyte esterase det ection by dipstickOrdered By: Temi Katz on 12-01-2024 Leukocyte esterase Test strip Ql (U) Negative Negative [facility] Urine pHOrdered By: Temi william on 12-01-2024 pH (U) 5.0 [pH] 5.0 - 8.0 [facility] Urine sediment bacteria coun t by microscopy (number/high power field)Ordered By: Temi Katz on 12-01-2024 Bacteria LM.HPF (Urine sed) [#/Area] 0 /[HPF] None Seen [facility] Urine specific gravity measu rementOrdered By: Temi Katz on 12-01-2024 Specific gravity (U) [Rel density] 1.010 1.002-1.03 0 [facility] Urine urobilinogen measureme ntOrdered By: Temi Katz on 12-01-2024 Urobilinogen Ql (U) Normal mg/dl Normal [facility] Venous Blood Gason Blood Gas Type PETER Normal [facility] Comment on above: Performed By: #### L 101.9900 #### [facility] [address] [place], [address] CO2 [Moles/Vol] 28 mmol/L Normal 23-33 [facility] Comment on above: Performed By: #### L 101.9900 #### [facility] [address] [place], [address] HCO3 (Bld) [Moles/Vol] 27 mmol/L High 22-26 [facility] Comment on above: Performed By: #### L 101.9900 #### [facility] [address] [place], [address] O2 Delivery Dev Not entered Normal [facility] Comment on above: Performed By: #### L 101.9900 #### [facility] [address] [place], [address] SITE Not entered Normal [facility] Comment on above: Performed By: #### L 101.9900 #### [facility] [address] [place], [address] VBG BE 3 mmol/L Normal -1.0-3.5 [facility] Comment on above: Performed By: #### L 101.9900 #### [facility] [address] [place], [address] VBG pCO2 37.3 mmHg Low 41-51 [facility] Comment on above: Performed By: #### L 101.9900 #### [facility] [address] [place], [address] VBG pH 7.46 High 7.32-7.42 [facility] Comment on above: Performed By: #### L 101.9900 #### [facility] [address] [place], [address] VBG PO2 38 mmHg Normal 25-40 [facility] Comment on above: Performed By: #### L 101.9900 #### [facility] [address] [place], [address] VBG SO2 76 High 50-70 [facility] Comment on above: Performed By: #### L 101.9900 #### [facility] [address] [place], [address] Venous blood base excess deshaun surementOrdered By: Ermias German on 12-01-2024 Base excess Calc (BldV) [Moles/Vol] 3 mmol/L -1.0-3.5 [facility] Venous blood bicarbonate deshaun surementOrdered By: Ermias German on 12-01-2024 HCO3 (Bld) [Moles/Vol] 27 mmol/L High 22-26 [facility] Venous blood oxygen saturati on measurementOrdered By: Ermias German on 12-01-2024 Oxygen saturation in Blood 76 % High 50-70 [facility] Venous blood pH measurementO rdered By: Ermias German on 12-01-2024 pH (BldV) 7.46 [pH] High 7.32-7.42 [facility] Venous blood partial pressur e of carbon dioxide measurementOrdered By: Ermias German on 12-01-2024 CO2 (BldV) [Partial pressure] 37.3 mm[Hg] Low 41-51 [facility] Venous blood partial pressur e of oxygen measurementOrdered By: Ermias German on 12-01-2024 Oxygen (BldV) [Partial pressure] 38 mm[Hg] 25-40 [facility] White blood cell countOrdere d By: Temi Katz on 12-01-2024 White blood cell count 0 SEEN /hpf 0-[address] [facility] Surgery Visit Reporton 11-25 Surgery Visit Report [facility] [address] [place] [address] OFFICE VISIT Date of Service: 11/25/24 MR#: [id number] Acct: [id number] Name: KRISHAN BURNHAM Rep #: [id number] : 1965 Provider: Dr. Jay hayes MD Age/Sex: 59/M Location: [facility] Status: Signed Intake Vital Signs 10/27/24 14:51 [...] 11/25/24 11/25/24 Hi story intramuscular oil (Depo-Testosterone) [facility] Medical History BMI 34.0-34.9,adult Left ventricular hypertrophy [...] or hoarseness (more content not included)... Normal [facility] Abdomen/Pelvis W IV Cont ONL Yon 10-27-2024 Abdomen/Pelvis W IV Cont ONLY [facility] [address] [place] [address] Abdomen/Pelvis W IV Cont ONLY MR#: [id number] Acct: [id number] Name: KRSIHAN BURNHAM Rep #: [id number] : 1965 M 59 From: William Beasley MD PCP: [facility] Status: REG ER Study: Abdomen/Pelvis W IV Cont ONLY Date of Exam: Exam# [id number] Ordering Dr: Javy Navarro MD PROCEDURE: ABDOMEN/PELVIS [...] The lung bases are clear Reading Location: [facility] CC: Dr. Javy Navarro MD; [facility] Space Control Agent: Signed Normal [facility] Absolute lymphocyte countOrd ered By: Javy Navarro on 10-27-2024 Lymphocytes Auto (Unsp spec) [#/Vol] 1.29 10*3/uL 0.83-4.51 [facility] Absolute neutrophil countOrd ered By: Javy Navarro on 10-27-2024 Neutrophils (Bld) [#/Vol] 3.8 10*3/uL 2.0-7.7 [facility] Anion gap in Serum or Plasma Ordered By: Javy Navarro on 10-27-2024 Anion gap [Moles/Vol] 16 mmol/L High 5-15 [facility] Automated lymphocyte count a s percentage of total leukocytesOrdered By: Javy Navarro on 10-27-2024 Lymphocytes/100 WBC Auto (Unsp spec) 22.0 % 19-41 [facility] BUN/creatinine ratioOrdered By: Javy Navarro on 10-27-2024 Urea nitrogen/Creatinine [Mass ratio] 10.9 mg/mg 10-20 [facility] Basophil percentageOrdered B y: Javy Navarro on 10-27-2024 Basophils/100 WBC (Bld) 0.7 % 0-[address] [facility] Bilirubin Test strip Ql (U)O rdered By: Javy Navarro on 10-27-2024 Bilirubin Ql (U) Negative Negative [facility] Bilirubin, totalOrdered By: Javy Navarro on 10-27-2024 Bilirubin [Mass/Vol] 0.42 mg/dL 0.00-1.30 [facility] CBC W/Diff, Automatedon 09-29 Absolute Lymph 1.29 X10 3/uL Normal 0.83-4.51 [facility] Comment on above: Performed By: #### L 501.080 #### [facility] [address] [place], [address] Absolute Neut 3.8 X10 3/uL Normal 2.0-7.7 [facility] Comment on above: Performed By: #### L 501.080 #### [facility] [address] [place], [address] Basophils/100 WBC (Bld) 0.7 % Normal 0-[address] [facility] Comment on above: Performed By: #### L 501.080 #### [facility] [address] [place], [address] Eosinophils/100 WBC (Bld) 3.9 % Normal 0-5 [facility] Comment on above: Performed By: #### L 501.080 #### [facility] [address] [place], [address] Erythrocyte distribution width (RBC) [Ratio] 12.6 % Normal 11.6-14.6 [facility] Comment on above: Performed By: #### L 501.080 #### [facility] [address] [place], [address] Hematocrit (Bld) [Volume fraction] 41.8 % Normal 40-54 [facility] Comment on above: Performed By: #### L 501.080 #### [facility] [address] [place], [address] Hemoglobin (Bld) [Mass/Vol] 14.5 g/dL Normal 13.0-16.5 [facility] Comment on above: Performed By: #### L 501.080 #### [facility] [address] [place], [address] IG% 0.300 Normal 0.0-0.9 [facility] Comment on above: Result Comment: IG% - Immature Granulocytes (promyelocytes, myelocytes and metamyelocytes) > 1% indicates that a LEFT SHIFT is Present. Performed By: #### L 501.080 #### [facility] [address] [place], [address] Lymphocytes/100 WBC (Bld) 22.0 % Normal 19-41 [facility] Comment on above: Performed By: #### L 501.080 #### [facility] [address] [place], [address] MCH (RBC) [Entitic mass] 29.4 pg Normal 27.0-32.0 [facility] Comment on above: Performed By: #### L 501.080 #### [facility] [address] [place], [address] MCHC (RBC) [Mass/Vol] 34.7 g/dL Normal 32-36 [facility] Comment on above: Performed By: #### L 501.080 #### [facility] [address] [place], [address] MCV (RBC) [Entitic vol] 84.8 fL Normal 80-[address] [facility] Comment on above: Performed By: #### L 501.080 #### [facility] [address] [place], [address] Monocytes/100 WBC (Bld) 9.2 % Normal 0-[address] [facility] Comment on above: Performed By: #### L 501.080 #### [facility] [address] [place], [address] Neutrophils/100 WBC (Bld) 63.9 % Normal 47-70 [facility] Comment on above: Performed By: #### L 501.080 #### [facility] [address] [place], [address] Nucleated RBC (Bld) [#/Vol] 0 10*3/uL Normal 0-5 [facility] Comment on above: Performed By: #### L 501.080 #### [facility] [address] [place], [address] Platelet mean volume (Bld) [Entitic vol] 9.5 fL Normal 6.2-12.0 [facility] Comment on above: Performed By: #### L 501.080 #### [facility] [address] [place], [address] Platelets (Bld) [#/Vol] 146 10*3/uL Low 150-450 [facility] Comment on above: Performed By: #### L 501.080 #### [facility] [address] [place], [address] RBC (Bld) [#/Vol] 4.93 10*6/uL Normal 4.6-6.2 [facility] Comment on above: Performed By: #### L 501.080 #### [facility] [address] [place], [address] RDW SD 37.9 fl Normal 35.1-43.9 [facility] Comment on above: Performed By: #### L 501.080 #### [facility] [address] [place], [address] WBC (Bld) [#/Vol] 5.9 10*3/uL Normal 4.4-11.0 [facility] Comment on above: Performed By: #### L 501.080 #### [facility] [address] [place], [address] Carbon dioxide, total [Moles /volume] in Central venous bloodOrdered By: Javy Navarro on 10-27-2024 CO2 [Moles/Vol] 16.5 mmol/L Low 21.0-32.0 [facility] Chloride assayOrdered By: Juanito Navarro on 10-27-2024 Chloride [Moles/Vol] 103 mmol/L 98-108 [facility] Comprehensive Metabolic Prof ilon 10-27-2024 Albumin [Mass/Vol] 4.3 g/dL Normal 3.5-5.0 [facility] Comment on above: Performed By: #### L 501.080 #### [facility] [address] [place], [address] Albumin/Globulin [Mass ratio] 1.7 {ratio} Normal 0.9-2.4 [facility] Comment on above: Performed By: #### L 501.080 #### [facility] [address] [place], [address] ALK PHOS 76 U/L Normal 40-129 [facility] Comment on above: Performed By: #### L 501.080 #### [facility] [address] [place], [address] ALT [Catalytic activity/Vol] 24 U/L Normal <=46 [facility] Comment on above: Performed By: #### L 501.080 #### [facility] [address] [place], [address] AST [Catalytic activity/Vol] 21 U/L Normal <=37 [facility] Comment on above: Performed By: #### L 501.080 #### [facility] [address] [place], [address] Bilirubin [Mass/Vol] 0.42 mg/dL Normal 0.00-1.30 [facility] Comment on above: Performed By: #### L 501.080 #### [facility] [address] [place], [address] BUN/CRE 10.9 RATIO Normal 10-20 [facility] Comment on above: Performed By: #### L 501.080 #### [facility] [address] [place], [address] Calcium [Mass/Vol] 8.8 mg/dL Normal 7.6-11.0 [facility] Comment on above: Performed By: #### L 501.080 #### [facility] [address] [place], [address] Chloride [Moles/Vol] 103 mmol/L Normal 98-108 [facility] Comment on above: Performed By: #### L 501.080 #### [facility] [address] [place], [address] CO2 [Moles/Vol] 16.5 mmol/L Low 21.0-32.0 [facility] Comment on above: Performed By: #### L 501.080 #### [facility] [address] [place], [address] Creatinine [Mass/Vol] 1.03 mg/dL Normal 0.70-1.20 [facility] Comment on above: Performed By: #### L 501.080 #### [facility] [address] [place], [address] ECRCL 96.75 ml/min Normal 50-250 [facility] Comment on above: Performed By: #### L 501.080 #### [facility] [address] [place], [address] GAP 16 High 5-15 [facility] Comment on above: Performed By: #### L 501.080 #### [facility] [address] [place], [address] GFR/1.73 sq M.predicted among non-blacks MDRD (S/P/Bld) [Vol rate/Area] 84 mL/min/{1.73_m2} Normal >60 [facility] Comment on above: Result Comment: mL/m in/1.73m2 CKD-EPI Creatinine Equation (2020) Performed By: #### L 501.080 #### [facility] [address] [place], [address] Globulin (S) [Mass/Vol] 2.5 g/dL Normal 2.2-4.2 [facility] Comment on above: Performed By: #### L 501.080 #### [facility] [address] [place], [address] Glucose [Mass/Vol] 269 mg/dL High 70-99 [facility] Comment on above: Performed By: #### L 501.080 #### [facility] [address] [place], [address] Potassium [Moles/Vol] 3.7 mmol/L Normal 3.3-5.1 [facility] Comment on above: Performed By: #### L 501.080 #### [facility] [address] [place], [place], [address] Sodium [Moles/Vol] 135 mmol/L Normal 133-145 [facility] Comment on above: Performed By: #### L 501.080 #### [facility] [address] [place], [place], [address] T PROT 6.8 g/dL Normal 5.9-8.4 [facility] Comment on above: Performed By: #### L 501.080 #### [facility] [address] [place], [place], [address] Urea nitrogen [Mass/Vol] 11 mg/dL Normal 4-19 [facility] Comment on above: Performed By: #### L 501.080 #### [facility] [address] [place], [place], [address] Emergency Department Summary on 10-27-2024 Emergency Department Summary [facility] Medical Records Department [address] [place] [address] Emergency Department Summary 10/27/24 MR#: [id number] Acct: [id number] Name: KRISHAN BURNHAM Rep #: [id number] : 1965 59 From: Javy Navarro MD PCP: [facility] Status:DEP ER Location: ED HPI [...] similar symptoms: Yes Recent Illness/Hospitalization: No PFSH PFS Medical History BMI 34.0-34.9,adult Left ventricular hypertrophy [...] Former smoker (more content not included)... Normal [facility] Eosinophil percentageOrdered By: Javy Navarro on 10-27-2024 Eosinophils/100 WBC (Bld) 3.9 % 0-5 [facility] Erythrocyte distribution wid th ratioOrdered By: Javy Navarro on 10-27-2024 Erythrocyte distribution width (RBC) [Ratio] 12.6 % 11.6-14.6 [facility] Erythrocyte distribution wid th standard deviationOrdered By: Javy Navarro on 10-27-2024 Erythrocyte distribution width (RBC) [Ratio] 37.9 fl 35.1-43.9 [facility] Glomerular filtration rate ( GFR) estimation/1.73 sq m using serum, plasma, or whole bOrdered By: Javy Navarro on 10-27-2024 GFR/1.73 sq M.predicted among non-blacks MDRD (S/P/Bld) [Vol rate/Area] 84 mL/min/{1.73_m2} >60 [facility] Comment on above: mL/min/1.73m2 CKD-EP I Creatinine Equation (2020) Hematocrit Auto (Bld) [Volum e fraction]Ordered By: Javy Navarro on 10-27-2024 Hematocrit (Bld) [Volume fraction] 41.8 % 40-54 [facility] Hemoglobin measurementOrdere d By: Javy Navarro on 10-27-2024 Hemoglobin (Bld) [Mass/Vol] 14.5 g/dL 13.0-16.5 [facility] Immature granulocytes/100 WB C Auto (Bld)Ordered By: Jayv Navarro on 10-27-2024 Immature granulocytes/100 WBC (Bld) 0.300 % 0.0-0.9 [facility] Comment on above: IG% - Immature Granu locytes (promyelocytes, myelocytes and metamyelocytes) > 1% indicates that a LEFT SHIFT is Present. Ketones Test strip Ql (U)Ord ered By: Javy Navarro on 10-27-2024 Ketones Ql (U) Negative Negative [facility] - Chemistry and C hemistry - challengeOrdered By: Javy Navarro on 10-27-2024 AST [Catalytic activity/Vol] 21 U/L <38 [facility] Lipaseon 10-27-2024 Lipase [Catalytic activity/Vol] 29 U/L Normal 13-75 [facility] Comment on above: Result Comment: Homar james note: LIPASE revised reference range effective 22. New Lipase methodology. Expected to produce lower values than the previous assay method. NEW Reference Range: 13 - 75 U/L Performed By: #### L 501.080 #### [facility] [address] [place], [address] Lipase measurementOrdered By : Javy Navarro on 10-27-2024 Lipase [Catalytic activity/Vol] 29 U/L 13-75 [facility] Comment on above: Please note:LIPASE r evised reference range effective 22. New Lipase methodology. Expected to produce lower values than the previous assay method. NEW Reference Range: 13 - 75 U/L MCV (mean corpuscular volume ) determinationOrdered By: Javy Navarro on 10-27-2024 MCV (RBC) [Entitic vol] 84.8 fL 80-[address] [facility] Mean corpuscular hemoglobin (MCH) determinationOrdered By: Javy Navarro on 10-27-2024 MCH (RBC) [Entitic mass] 29.4 pg 27.0-32.0 [facility] Mean corpuscular hemoglobin concentration (MCHC) determinationOrdered By: Javy Navarro on 10-27-2024 MCHC (RBC) [Mass/Vol] 34.7 g/dL 32-36 [facility] Mean platelet volume determi nationOrdered By: Javy Navarro on 10-27-2024 Platelet mean volume (Bld) [Entitic vol] 9.5 fL 6.2-12.0 [facility] Microscopic analysis of urin e for red blood cells (RBC)Ordered By: Javy Navarro on 10-27-2024 Microscopic analysis of urine for red blood cells (RBC) 0 SEEN /hpf 0-5 [facility] Monocyte percentageOrdered B y: Javy Navarro on 10-27-2024 Monocytes/100 WBC (Bld) 9.2 % 0-[address] [facility] Mucus LM Ql (Urine sed)Order ed By: Javy Navarro on 10-27-2024 Mucus Ql (Urine sed) 0 SEEN /hpf [facility] Neutrophil percentageOrdered By: Javy Navarro on 10-27-2024 Neutrophils/100 WBC (Bld) 63.9 % 47-70 [facility] Nitrite Test strip Ql (U)Ord ered By: Javy Navarro on 10-27-2024 Nitrite Ql (U) Negative Negative [facility] Nucleated red blood cell per centageOrdered By: Javy Navarro on 10-27-2024 Nucleated RBC/100 WBC (Bld) [Ratio] 0 % 0-5 [facility] Platelet countOrdered By: Juanito Navarro on 10-27-2024 Platelets (Bld) [#/Vol] 146 10*3/uL Low 150-450 [facility] Potassium measurement (mass/ volume)Ordered By: Javy Navarro on 10-27-2024 Potassium (Unsp spec) [Mass/Vol] 3.7 mmol/L 3.3-5.1 [facility] Protein Test strip Ql (U)Ord ered By: Javy Navarro on 10-27-2024 Protein Ql (U) Negative Negative [facility] RBC Auto (Bld) [#/Vol]Ordere d By: Javy Navarro on 10-27-2024 RBC (Bld) [#/Vol] 4.93 10*6/uL 4.6-6.2 [facility] Serum creatinine measurement (mass/volume)Ordered By: Javy Navarro on 10-27-2024 Creatinine [Mass/Vol] 1.03 mg/dL 0.70-1.20 [facility] Serum globulin measurementOr dered By: Javy Navarro on 10-27-2024 Globulin (S) [Mass/Vol] 2.5 g/dL 2.2-4.[address] [facility] Serum glucose measurement (m ass/volume)Ordered By: Javy Navarro on 10-27-2024 Glucose [Mass/Vol] 269 mg/dL High 70-99 [facility] Serum or plasma alanine layton otransferase (ALT) measurementOrdered By: Javy Navarro on 10-27-2024 ALT [Catalytic activity/Vol] 24 U/L <47 [facility] Serum or plasma albumin noy urement (mass/volume)Ordered By: Javy Navarro on 10-27-2024 Albumin [Mass/Vol] 4.3 g/dL 3.5-5.0 [facility] Serum or plasma albumin/glob ulin mass ratioOrdered By: Javy Navarro on 10-27-2024 Albumin/Globulin [Mass ratio] 1.7 {ratio} 0.9-2.4 [facility] Serum or plasma alkaline usha sphatase measurementOrdered By: Javy Navarro on 10-27-2024 ALP [Catalytic activity/Vol] 76 U/L 40-129 [facility] Serum or plasma calcium noy urement (mass/volume)Ordered By: Javy Navarro on 10-27-2024 Calcium [Mass/Vol] 8.8 mg/dL 7.6-11.0 [facility] Serum or plasma urea nitroge n measurement (mass/volume)Ordered By: Javy Navarro on 10-27-2024 Urea nitrogen [Mass/Vol] 11 mg/dL 4-19 [facility] Sodium levelOrdered By: Javy Navarro on 10-27-2024 Sodium [Moles/Vol] 135 mmol/L 133-145 [facility] Squamous epithelial cells de tection in urine sediment by light microscopyOrdered By: Javy Navarro on 10-27-2024 Epithelial cells.squamous LM Ql (Urine sed) 0-5 SEEN /hpf 0-5 [facility] Total proteinOrdered By: Angel Navarro on 10-27-2024 Protein [Mass/Vol] 6.8 g/dL 5.9-8.4 [facility] Urinalysis, Completeon 10-27 EPI,SQUAMOUS 0-5 SEEN Normal 0-5 [facility] Comment on above: Order Comment: CLEAN CATCH Performed By: #### L 499.0042 #### [facility] [address] [place], [address] WBC 0-5 SEEN Normal 0-5 [facility] Comment on above: Order Comment: CLEAN CATCH Performed By: #### L 499.0042 #### [facility] [address] [place], [address] BACTERIA 0 SEEN Normal None Seen [facility] Comment on above: Order Comment: CLEAN CATCH Performed By: #### L 499.0042 #### [facility] [address] [place], [address] Mucus Ql (Urine sed) 0 SEEN Normal [facility] Comment on above: Order Comment: CLEAN CATCH Performed By: #### L 499.0042 #### [facility] [address] [place], [address] RBC 0 SEEN Normal 0-5 [facility] Comment on above: Order Comment: CLEAN CATCH Performed By: #### L 499.0042 #### [facility] [address] [place], [address] Urine clarityOrdered By: Angel Navarro on 10-27-2024 Clarity (U) Clear Clear [facility] Urine color determinationOrd ered By: Javy Navarro on 10-27-2024 Color (U) Yellow Yellow [facility] Urine glucose detectionOrder ed By: Javy Navarro on 10-27-2024 Glucose Ql (U) 1000 mg/dl High Normal [facility] Urine leukocyte esterase det ection by dipstickOrdered By: Javy Navarro on 10-27-2024 Leukocyte esterase Test strip Ql (U) Negative Negative [facility] Urine pHOrdered By: Javy quintanilla on 10-27-2024 pH (U) 6.0 [pH] 5.0 - 8.0 [facility] Urine sediment bacteria coun t by microscopy (number/high power field)Ordered By: Javy Navarro on 10-27-2024 Bacteria LM.HPF (Urine sed) [#/Area] 0 /[HPF] None Seen [facility] Urine specific gravity measu rementOrdered By: Javy Navarro on 10-27-2024 Specific gravity (U) [Rel density] 1.015 1.002-1.03 0 [facility] Urine urobilinogen measureme ntOrdered By: Javy Navarro on 10-27-2024 Urobilinogen Ql (U) Normal mg/dl Normal [facility] White blood cell (WBC) count Ordered By: Javy Navarro on 10-27-2024 WBC (Bld) [#/Vol] 5.9 10*3/uL 4.4-11.0 [facility] White blood cell countOrdere d By: Javy Navarro on 10-27-2024 White blood cell count 0-5 SEEN /hpf 0-5 [facility] 12 Lead EKGon 09-17-2024 12 Lead EKG [facility] [address] [place] [address] 12 Lead EKG 09/17/24 1112 MR#: [id number] Acct: [id number] Name: KRISHAN BURNHAM Rep #: [id number] : 1965 59 From: Jhony Ortiz MD [...] ) Borderline ECG Confirmed by Jhony Ortiz ([id number]), writer editor BRET ARCOS ([id number]) on 09/18/2024 1:47:09 PM Referred By: Confirmed By: Jhony Ortiz 09/18/24 1347 Date Jhony Ortiz MD CC: Dr. Bib Beavers, DO; [facility] Signed Normal [facility] Absolute lymphocyte countOrd ered By: Bib Beavers on 09-17-2024 Lymphocytes Auto (Unsp spec) [#/Vol] 1.66 10*3/uL 0.83-4.51 [facility] Absolute neutrophil countOrd ered By: Bib Beavers on 09-17-2024 Neutrophils (Bld) [#/Vol] 3.7 10*3/uL 2.0-7.7 [facility] Activated partial thrombopla stin time (aPTT) in platelet poor plasma by coagulation aOrdered By: Bib Beavers on 09-17-2024 aPTT Coag (PPP) [Time] 24.1 s 24.1-36.2 [facility] Anion gap in Serum or Plasma Ordered By: Bib Beavers on 09-17-2024 Anion gap [Moles/Vol] 15 mmol/L 5- [facility] Automated lymphocyte count a s percentage of total leukocytesOrdered By: Bib Beavers on 09-17-2024 Lymphocytes/100 WBC Auto (Unsp spec) 26.2 % [facility] BUN/creatinine ratioOrdered By: Bib Beavers on 09-17-2024 Urea nitrogen/Creatinine [Mass ratio] 14.1 mg/mg 12-16 [facility] Basic Metabolic Profile (BMP )on 09-17-2024 BUN/CRE 14.1 RATIO Normal 12-16 [facility] Comment on above: Performed By: #### L 101.9900 #### [facility] [address] [place], [address] Calcium [Mass/Vol] 9.2 mg/dL Normal 7.6-11.0 [facility] Comment on above: Performed By: #### L 101.9900 #### [facility] [address] [place], [address] Chloride [Moles/Vol] 101 mmol/L Normal 98-108 [facility] Comment on above: Performed By: #### L 101.9900 #### [facility] [address] [place], [address] CO2 [Moles/Vol] 21.5 mmol/L Normal 21.0-32.0 [facility] Comment on above: Performed By: #### L 101.9900 #### [facility] [address] [place], [address] Creatinine [Mass/Vol] 1.05 mg/dL Normal 0.70-1.20 [facility] Comment on above: Performed By: #### L 101.9900 #### [facility] [address] [place], [address] ECRCL 95.68 ml/min Normal 50-250 [facility] Comment on above: Performed By: #### L 101.9900 #### [facility] [address] [place], [address] GAP 15 Normal 5-15 [facility] Comment on above: Performed By: #### L 101.9900 #### [facility] [address] [place], [address] GFR/1.73 sq M.predicted among non-blacks MDRD (S/P/Bld) [Vol rate/Area] 82 mL/min/{1.73_m2} Normal >60 [facility] Comment on above: Result Comment: mL/m in/1.73m2 CKD-EPI Creatinine Equation (2020) Performed By: #### L 101.9900 #### [facility] [address] [place], [address] Glucose [Mass/Vol] 205 mg/dL High 70-99 [facility] Comment on above: Performed By: #### L 101.9900 #### [facility] [address] [place], [address] Potassium [Moles/Vol] 3.9 mmol/L Normal 3.3-5.1 [facility] Comment on above: Result Comment: Hemo lysis present, Results??could be affected. ?? Performed By: #### L 101.9900 #### [facility] [address] [place], [address] Sodium [Moles/Vol] 138 mmol/L Normal 133-145 [facility] Comment on above: Performed By: #### L 101.9900 #### [facility] [address] [place], [address] Urea nitrogen [Mass/Vol] 15 mg/dL Normal 4-19 [facility] Comment on above: Performed By: #### L 101.9900 #### [facility] [address] [place], [address] Basophil percentageOrdered B y: Bib Beavers on 09-17-2024 Basophils/100 WBC (Bld) 0.6 % 0-[address] [facility] Bilirubin directOrdered By: Bib Beavers on 09-17-2024 Bilirubin.direct [Mass/Vol] 0.13 mg/dL 0.00-0.30 [facility] Comment on above: Hemolysis present, R esults could be affected. Bilirubin, totalOrdered By: Bib Beavers on 09-17-2024 Bilirubin [Mass/Vol] 0.41 mg/dL 0.00-1.30 [facility] CBC W/Diff, Automatedon 08-28 Absolute Lymph 1.66 X10 3/uL Normal 0.83-4.51 [facility] Comment on above: Performed By: #### L 101.9900 #### [facility] [address] [place], [address] Absolute Neut 3.7 X10 3/uL Normal 2.0-7.7 [facility] Comment on above: Performed By: #### L 101.9900 #### [facility] [address] [place], [address] Basophils/100 WBC (Bld) 0.6 % Normal 0-[address] [facility] Comment on above: Performed By: #### L 101.9900 #### [facility] [address] [place], [address] Eosinophils/100 WBC (Bld) 2.7 % Normal 0-5 [facility] Comment on above: Performed By: #### L 101.9900 #### [facility] [address] [place], [address] Erythrocyte distribution width (RBC) [Ratio] 12.7 % Normal 11.6-14.6 [facility] Comment on above: Performed By: #### L 101.9900 #### [facility] [address] [place], [address] Hematocrit (Bld) [Volume fraction] 43.4 % Normal 40-54 [facility] Comment on above: Performed By: #### L 101.9900 #### [facility] [address] [place], [address] Hemoglobin (Bld) [Mass/Vol] 15.1 g/dL Normal 13.0-16.5 [facility] Comment on above: Performed By: #### L 101.9900 #### [facility] [address] [place], [address] IG% 0.600 Normal 0.0-0.9 [facility] Comment on above: Result Comment: IG% - Immature Granulocytes (promyelocytes, myelocytes and metamyelocytes) > 1% indicates that a LEFT SHIFT is Present. Performed By: #### L 101.9900 #### [facility] [address] [place], [address] Lymphocytes/100 WBC (Bld) 26.2 % Normal 19-41 [facility] Comment on above: Performed By: #### L 101.9900 #### [facility] [address] [place], [address] MCH (RBC) [Entitic mass] 29.6 pg Normal 27.0-32.0 [facility] Comment on above: Performed By: #### L 101.9900 #### [facility] [address] [place], [address] MCHC (RBC) [Mass/Vol] 34.8 g/dL Normal 32-36 [facility] Comment on above: Performed By: #### L 101.9900 #### [facility] [address] [place], [address] MCV (RBC) [Entitic vol] 85.1 fL Normal 80-94 [facility] Comment on above: Performed By: #### L 101.9900 #### [facility] [address] [place], [address] Monocytes/100 WBC (Bld) 11.5 % High 0-[address] [facility] Comment on above: Performed By: #### L 101.9900 #### [facility] [address] [place], [address] Neutrophils/100 WBC (Bld) 58.4 % Normal 47-70 [facility] Comment on above: Performed By: #### L 101.9900 #### [facility] [address] [place], [address] Nucleated RBC (Bld) [#/Vol] 0 10*3/uL Normal 0-5 [facility] Comment on above: Performed By: #### L 101.9900 #### [facility] [address] [place], [address] Platelet mean volume (Bld) [Entitic vol] 10.3 fL Normal 6.2-12.0 [facility] Comment on above: Performed By: #### L 101.9900 #### [facility] [address] [place], [address] Platelets (Bld) [#/Vol] 144 10*3/uL Low 150-450 [facility] Comment on above: Performed By: #### L 101.9900 #### [facility] [address] [place], [address] RBC (Bld) [#/Vol] 5.10 10*6/uL Normal 4.6-6.2 [facility] Comment on above: Performed By: #### L 101.9900 #### [facility] [address] [place], [address] RDW SD 38.8 fl Normal 35.1-43.9 [facility] Comment on above: Performed By: #### L 101.9900 #### [facility] [address] [place], [address] WBC (Bld) [#/Vol] 6.3 10*3/uL Normal 4.4-11.0 [facility] Comment on above: Performed By: #### L 101.9900 #### [facility] [address] [place], [address] CTA Chst, Abd, Pel W and/or WOon 09-17-2024 CTA Chst, Abd, Pel W and/or WO [facility] [address] [place] [address] CTA Chst, Abd, Pel W and/or WO MR#: [id number] Acct: [id number] Name: KRISHAN BURNHAM Rep #: [id number] : 1965 M 59 From: Paulie Gale MD PCP: [facility] Status: REG ER Study: CTA Chst, Abd, Pel W and/or WO Date of Exam: 0 09/17/24 Exam# [id number] Ordering Dr: Bib Beavers DO PROCEDURE: CTA [...] Location: [place] CC: Dr. Bib Beavers DO; [facility] Space Control Agent: Signed Normal [facility] Carbon dioxide, total [Moles /volume] in Central venous bloodOrdered By: Bib Beavers on 09-17-2024 CO2 [Moles/Vol] 21.5 mmol/L 21.0-32.0 [facility] Chloride assayOrdered By: Andrei Beavers on 09-17-2024 Chloride [Moles/Vol] 101 mmol/L 98-108 [facility] Emergency Department Summary on 09-17-2024 Emergency Department Summary [facility] Medical Records Department [address] [place] [address] Emergency Department Summary 09/17/24 MR#: [id number] Acct: [id number] Name: KRISHAN BURNHAM Rep #: [id number] : 1965 59 From: Bib Lopez PCP: [facility] Status:DEP ER Location: ED HPI History of [...] Recent Immobilization or Prior DVT or PE PFSH PFS Medical History BMI 34.0-34.9,adult Left ventricular hypertrophy [...] throat Cardiovas (more content not included)... Normal [facility] Eosinophil percentageOrdered By: Bib Beavers on 09-17-2024 Eosinophils/100 WBC (Bld) 2.7 % 0-5 [facility] Erythrocyte distribution wid th ratioOrdered By: Bib Beavers on 09-17-2024 Erythrocyte distribution width (RBC) [Ratio] 12.7 % 11.6-14.6 [facility] Erythrocyte distribution wid th standard deviationOrdered By: Bib Beavers on 09-17-2024 Erythrocyte distribution width (RBC) [Ratio] 38.8 fl 35.1-43.9 [facility] Glomerular filtration rate ( GFR) estimation/1.73 sq m using serum, plasma, or whole bOrdered By: Bib Beavers on 09-17-2024 GFR/1.73 sq M.predicted among non-blacks MDRD (S/P/Bld) [Vol rate/Area] 82 mL/min/{1.73_m2} >60 [facility] Comment on above: mL/min/1.73m2 CKD-EP I Creatinine Equation (2020) Hematocrit Auto (Bld) [Volum e fraction]Ordered By: Bib Beavers on 09-17-2024 Hematocrit (Bld) [Volume fraction] 43.4 % 40-54 [facility] Hemoglobin measurementOrdere d By: Bib Beavers on 09-17-2024 Hemoglobin (Bld) [Mass/Vol] 15.1 g/dL 13.0-16.5 [facility] Immature granulocytes/100 WB C Auto (Bld)Ordered By: Bib Beavers on 09-17-2024 Immature granulocytes/100 WBC (Bld) 0.600 % 0.0-0.9 [facility] Comment on above: IG% - Immature Granu locytes (promyelocytes, myelocytes and metamyelocytes) > 1% indicates that a LEFT SHIFT is Present. International normalized rat io (INR) calculationOrdered By: Bib Beavers on 09-17-2024 INR Coag (Bld) [Relative time] 0.9 {INR} [facility] L501.4021on 09-17-2024 Trop T High Sen 11 ng/L Normal <=22 [facility] Comment on above: Performed By: #### L 101.9900 #### [facility] [address] [place], [place], [id number] Laboratory - Chemistry and C hemistry - challengeOrdered By: Bib Beavers on 09-17-2024 AST [Catalytic activity/Vol] 22 U/L <38 [facility] Comment on above: Hemolysis present, R esults could be affected. Lipaseon 09-17-2024 Lipase [Catalytic activity/Vol] 25 U/L Normal 13-75 [facility] Comment on above: Result Comment: Homar james note: LIPASE revised reference range effective 22. New Lipase methodology. Expected to produce lower values than the previous assay method. NEW Reference Range: 13 - 75 U/L Performed By: #### L 499.0042 #### [facility] [address] [place], [address] Lipase measurementOrdered By : Bib Beavers on 09-17-2024 Lipase [Catalytic activity/Vol] 25 U/L 13-75 [facility] Comment on above: Please note:LIPASE r evised reference range effective 22. New Lipase methodology. Expected to produce lower values than the previous assay method. NEW Reference Range: 13 - 75 U/L Liver Profileon 09-17-2024 Albumin [Mass/Vol] 4.6 g/dL Normal 3.5-5.0 [facility] Comment on above: Performed By: #### L 499.0042 #### [facility] [address] [place], [address] ALK PHOS 81 U/L Normal 40-129 [facility] Comment on above: Performed By: #### L 499.0042 #### [facility] [address] [place], [address] ALT [Catalytic activity/Vol] 28 U/L Normal <=46 [facility] Comment on above: Performed By: #### L 499.0042 #### [facility] [address] [place], [address] AST [Catalytic activity/Vol] 22 U/L Normal <=37 [facility] Comment on above: Result Comment: Hemo lysis present, Results??could be affected. ?? Performed By: #### L 499.0042 #### [facility] [address] [place], [address] Bilirubin [Mass/Vol] 0.41 mg/dL Normal 0.00-1.30 [facility] Comment on above: Performed By: #### L 499.0042 #### [facility] [address] [place], [place], [id number] Bilirubin.direct [Mass/Vol] 0.13 mg/dL Normal 0.00-0.30 [facility] Comment on above: Result Comment: Hemo lysis present, Results??could be affected. ?? Performed By: #### L 499.0042 #### [facility] [address] [place], [address] Globulin (S) [Mass/Vol] 2.9 g/dL Normal 2.2-4.2 [facility] Comment on above: Performed By: #### L 499.0042 #### [facility] [address] [place], [place], [address] T PROT 7.4 g/dL Normal 5.9-8.4 [facility] Comment on above: Performed By: #### L 499.0042 #### [facility] [address] [place], [address] MCV (mean corpuscular volume ) determinationOrdered By: Bib Beavers on 09-17-2024 MCV (RBC) [Entitic vol] 85.1 fL 80-[address] [facility] Mean corpuscular hemoglobin (MCH) determinationOrdered By: Bib Beavers on 09-17-2024 MCH (RBC) [Entitic mass] 29.6 pg 27.0-32.0 [facility] Mean corpuscular hemoglobin concentration (MCHC) determinationOrdered By: Bib Beavers on 09-17-2024 MCHC (RBC) [Mass/Vol] 34.8 g/dL 32-36 [facility] Mean platelet volume determi nationOrdered By: Bib Beavers on 09-17-2024 Platelet mean volume (Bld) [Entitic vol] 10.3 fL 6.2-12.0 [facility] Monocyte percentageOrdered B y: Bib Beavers on 09-17-2024 Monocytes/100 WBC (Bld) 11.5 % High 0-[address] [facility] Neutrophil percentageOrdered By: Bib Beavers on 09-17-2024 Neutrophils/100 WBC (Bld) 58.4 % 47-70 [facility] Nucleated red blood cell per centageOrdered By: iBb Beavers on 09-17-2024 Nucleated RBC/100 WBC (Bld) [Ratio] 0 % 0-5 [facility] Partial Thromboplast Timeon 09-17-2024 aPTT Coag (Bld) [Time] 24.1 s Normal 24.1-36.2 [facility] Comment on above: Performed By: #### L 101.9900 #### [facility] [address] [place], [place], [id number] Platelet countOrdered By: Andrei Beavers on 09-17-2024 Platelets (Bld) [#/Vol] 144 10*3/uL Low 150-450 [facility] Potassium measurement (mass/ volume)Ordered By: Bib Beavers on 09-17-2024 Potassium (Unsp spec) [Mass/Vol] 3.9 mmol/L 3.3-5.1 [facility] Comment on above: Hemolysis present, R esults could be affected. Prothrombin Time w/INRon INR Coag (PPP) [Relative time] 0.9 {INR} Normal [facility] Comment on above: Performed By: #### L 101.9900 #### [facility] [address] [place], [place], [id number] [phone] PT Coag (PPP) [Time] 12.5 s Normal 11.7-14.9 [facility] Comment on above: Performed By: #### L 101.9900 #### [facility] [address] [place], [address] Prothrombin timeOrdered By: Bib Beavers on 09-17-2024 PT Coag (PPP) [Time] 12.5 s 11.7-14.9 [facility] RBC Auto (Bld) [#/Vol]Ordere d By: Bib Beavers on 09-17-2024 RBC (Bld) [#/Vol] 5.10 10*6/uL 4.6-6.2 [facility] Serum creatinine measurement (mass/volume)Ordered By: Bib Beavers on 09-17-2024 Creatinine [Mass/Vol] 1.05 mg/dL 0.70-1.20 [facility] Serum globulin measurementOr dered By: Bib Beavers on 09-17-2024 Globulin (S) [Mass/Vol] 2.9 g/dL 2.2-4.[address] [facility] Serum glucose measurement (m ass/volume)Ordered By: Bib Beavers on 09-17-2024 Glucose [Mass/Vol] 205 mg/dL High 70-99 [facility] Serum or plasma alanine layton otransferase (ALT) measurementOrdered By: Bib Beavers on 09-17-2024 ALT [Catalytic activity/Vol] 28 U/L <47 [facility] Serum or plasma albumin noy urement (mass/volume)Ordered By: Bib Beavers on 09-17-2024 Albumin [Mass/Vol] 4.6 g/dL 3.5-5.0 [facility] Serum or plasma alkaline usha sphatase measurementOrdered By: Bib Beavers on 09-17-2024 ALP [Catalytic activity/Vol] 81 U/L 40-129 [facility] Serum or plasma calcium noy urement (mass/volume)Ordered By: Bib Beavers on 09-17-2024 Calcium [Mass/Vol] 9.2 mg/dL 7.6-11.0 [facility] Serum or plasma urea nitroge n measurement (mass/volume)Ordered By: Bib Beavers on 09-17-2024 Urea nitrogen [Mass/Vol] 15 mg/dL 4-19 [facility] Sodium levelOrdered By: Bib Beavers on 09-17-2024 Sodium [Moles/Vol] 138 mmol/L 133-145 [facility] Total proteinOrdered By: Rito Beavers on 09-17-2024 Protein [Mass/Vol] 7.4 g/dL 5.9-8.4 [facility] Troponin T HS 2 HRon 025 Trop T High Sen 11 ng/L Normal <=22 [facility] Comment on above: Performed By: #### L 499.0042 #### [facility] [place], [address] Troponin T HS 4 HRon 025 Trop T High Sen Normal <=22 [facility] Comment on above: Result Comment: Canc elled via OM: Order cancelled - Patient discharged Performed By: #### L 101.9900 #### [facility] [place], [address] Troponin T.cardiac [Mass/vol ume] in Serum or Plasma by High sensitivity methodOrdered By: Bib Beavers on 09-17-2024 Troponin T.cardiac High sensitivity method [Mass/Vol] 11 ng/L <22 [facility] Troponin T.cardiac High sensitivity method [Mass/Vol] 11 ng/L <22 [facility] White blood cell (WBC) count Ordered By: Bib Beavers on 09-17-2024 WBC (Bld) [#/Vol] 6.3 10*3/uL 4.4-11.0 [facility] .Auto Diffon 06-29-2024 Basophil, Absolute 0.0 10 3/mcL Normal 0.0-0.3 [facility] Comment on above: Performed By: #### B NELLIE WONG, GFR, ADIFF, TROPHS, CBC, ANEU, MG #### [address] [address] Basophils/100 WBC (Bld) 0.6 % Normal 0.0-2.5 [facility] Comment on above: Performed By: #### B NELLIE WONG, GFR, ADIFF, TROPHS, CBC, ANEU, MG #### [address] [address] Eosinophil, Absolute 0.1 10 3/mcL Normal 0.0-0.7 [facility] Comment on above: Performed By: #### B NELLIE WONG, GFR, ADIFF, TROPHS, CBC, ANEU, MG #### [address] [address] Eosinophils/100 WBC (Bld) 2.7 % Normal 0.0-6.0 [facility] Comment on above: Performed By: #### B NELLIE WONG, GFR, ADIFF, TROPHS, CBC, ANEU, MG #### [address] [address] Lymphocyte, Absolute 1.6 10 3/mcL Normal 0.9-4.3 [facility] Comment on above: Performed By: #### B MARVIN, W, GFR, ADIFF, TROPHS, CBC, ANEU, MG #### [address] [address] Lymphocytes/100 WBC (Bld) 29.2 % Normal 20.0-40.0 [facility] Comment on above: Performed By: #### B MARVIN, W, GFR, ADIFF, TROPHS, CBC, ANEU, MG #### [address] [address] Monocyte, Absolute 0.5 10 3/mcL Normal 0.1-1.4 [facility] Comment on above: Performed By: #### B NELLIE WONG, GFR, ADIFF, TROPHS, CBC, ANEU, MG #### [address] [address] Monocytes/100 WBC (Bld) 9.5 % Normal 2.0-13.0 [facility] Comment on above: Performed By: #### B NELLIE WONG, GFR, ADIFF, TROPHS, CBC, ANEU, MG #### [address] [address] Neutrophils/100 WBC (Bld) 58.0 % Normal 50.0-75.0 [facility] Comment on above: Performed By: #### B NELLIE WONG, GFR, ADIFF, TROPHS, CBC, ANEU, MG #### [address] [address] .GFRon 06-29-2024 Estimated Glomerular Filtration Rate 101 ml/min/1.73sqm Normal [facility] Comment on above: Result Comment: Stages [...] the eGFR results. Performed By: #### B MP, MDW, GFR, ADIFF, TROPHS, CBC, ANEU, MG #### [address] [address] .MDWon 06-29-2024 Monocyte Distribution Width 17.20 Normal 0.00-20.00 [facility] Comment on above: Result Comment: For ED adult patients suspected of sepsis, MDW<=20.0 does not rule out sepsis or risk of sepsis Performed By: #### B MARVIN, MDW, GFR, ADIFF, TROPHS, CBC, ANEU, MG #### [address] [address] .NEUABSon 06-29-2024 Neutrophil, Absolute 3.2 10 3/mcL Normal 2.3-8.1 [facility] Comment on above: Performed By: #### B MARVIN, W, GFR, ADIFF, TROPHS, CBC, ANEU, MG #### [address] [address] BMPon 06-29-2024 BUN/Creatinine Ratio 21 ratio Normal 7-27 [facility] Comment on above: Performed By: #### B MARVIN, W, GFR, ADIFF, TROPHS, CBC, ANEU, MG #### [address] [address] Calcium [Mass/Vol] 8.9 mg/dL Normal 8.4-10.2 [facility] Comment on above: Performed By: #### B MARVIN, MDW, GFR, ADIFF, TROPHS, CBC, ANEU, MG #### [address] [address] Chloride [Moles/Vol] 106 mmol/L Normal 98-107 [facility] Comment on above: Performed By: #### B MARVIN, NELLIE, GFR, ADIFF, TROPHS, CBC, ANEU, MG #### [address] [address] CO2 [Moles/Vol] 29 mmol/L Normal 22-29 [facility] Comment on above: Performed By: #### B MARVIN, W, GFR, ADIFF, TROPHS, CBC, ANEU, MG #### [address] [address] Creatinine [Mass/Vol] 0.84 mg/dL Normal 0.67-1.17 [facility] Comment on above: Performed By: #### B MARVIN, NELLIE, GFR, ADIFF, TROPHS, CBC, ANEU, MG #### [address] [address] Electrolyte Balance 5.0 mEq/L Normal 4.0-15.0 [facility] Comment on above: Performed By: #### B NELLIE WONG, GFR, ADIFF, TROPHS, CBC, ANEU, MG #### [address] [address] Glucose [Mass/Vol] 297 mg/dL High 70-105 [facility] Comment on above: Performed By: #### B NELLIE WONG, GFR, ADIFF, TROPHS, CBC, ANEU, MG #### [address] [address] Potassium [Moles/Vol] 3.7 mmol/L Normal 3.5-5.1 [facility] Comment on above: Performed By: #### B NELLIE WONG, GFR, ADIFF, TROPHS, CBC, ANEU, MG #### [address] [address] Sodium [Moles/Vol] 140 mmol/L Normal 136-145 [facility] Comment on above: Performed By: #### B MD MARVINW, GFR, ADIFF, TROPHS, CBC, ANEU, MG #### [place] [id number] Urea nitrogen [Mass/Vol] 18 mg/dL Normal 7-18 [facility] Comment on above: Performed By: #### B NELLIE WONG, GFR, ADIFF, TROPHS, CBC, ANEU, MG #### [address] [address] CBCon 06-29-2024 Erythrocyte distribution width (RBC) [Ratio] 13.3 % Normal 11.5-15.5 [facility] Comment on above: Performed By: #### B NELLIE WONG, GFR, ADIFF, TROPHS, CBC, ANEU, MG #### [place] [id number] Hematocrit (Bld) [Volume fraction] 40.5 % Normal 40.0-52.0 [facility] Comment on above: Performed By: #### B NELLIE WONG, GFR, ADIFF, TROPHS, CBC, ANEU, MG #### [place] [address] Hgb 14.5 G/dL Normal 13.0-17.5 [facility] Comment on above: Performed By: #### B NELLIE WONG, GFR, ADIFF, TROPHS, CBC, ANEU, MG #### [place] [id number] MCH (RBC) [Entitic mass] 30.2 pg Normal 27.0-33.0 [facility] Comment on above: Performed By: #### B NELLIE WONG, GFR, ADIFF, TROPHS, CBC, ANEU, MG #### [place] [address] MCHC 35.9 G/dL Normal 32.0-36.0 [facility] Comment on above: Performed By: #### B NELLIE WONG, GFR, ADIFF, TROPHS, CBC, ANEU, MG #### [place] [id number] MCV (RBC) [Entitic vol] 84.2 fL Normal 81.0-100.0 [facility] Comment on above: Performed By: #### B NELLIE WONG, GFR, ADIFF, TROPHS, CBC, ANEU, MG #### [address] [address] Platelet 142 10 3/mcL Low 150-450 [facility] Comment on above: Performed By: #### B MARVIN, MDW, GFR, ADIFF, TROPHS, CBC, ANEU, MG #### [address] [address] Platelet mean volume (Bld) [Entitic vol] 7.7 fL Normal 6.4-10.5 [facility] Comment on above: Performed By: #### B MARVIN, NELLIE, GFR, ADIFF, TROPHS, CBC, ANEU, MG #### [address] [address] RBC 4.81 10 6/mcL Normal 4.50-6.00 [facility] Comment on above: Performed By: #### B MARVIN, NELLIE, GFR, ADIFF, TROPHS, CBC, ANEU, MG #### [address] [address] WBC 5.6 10 3/mcL Normal 4.5-10.8 [facility] Comment on above: Performed By: #### B NELLIE WOGN, GFR, ADIFF, TROPHS, CBC, ANEU, MG #### [address] [address] [address] HEAD OR BRAIN W/O CONTRAS Ton [...] the resident's findings and interpretation. Interpreted by: Henry Khoury Preliminary Report By: Eva Gutierrez Electronically signed By Henry Khoury Dictated Date: 06/29/2024 10:49:34 PM Prelim Date: 06/29/2024 10:52:30 PM Sign Date: 06/29/2024 10:57:23 PM Ordering Provider: CARMELA Madsen [facility] LABORATORYOrdered By: Dale Moyer on 06-29-2024 Glucose [Mass/Vol] 166 mg/dL High 70 - 110 mg/dL [facility] Work Phone: Glucose [Mass/Vol] 266 mg/dL High 70 - 110 mg/dL [facility] Work Phone: LABORATORYOrdered By: Janet Velazquez on [...] a homogeneous sandwich chemiluminescent immunoassay based on GIROPTIC technology. Urea nitrogen [Mass/Vol] 18 mg/dL Normal 7 - 18 mg/dL AO ADM SS Urea nitrogen/Creatinine [Mass ratio] 21 ratio Normal 7 - 27 ratio AO ADM SS WBC (Bld) [#/Vol] 5.6 103/mcL Normal 4.5 - 10.8 10^3/mcL AO Workflow SS MGon 06-29-2024 Magnesium [Mass/Vol] 1.9 mg/dL Normal 1.8-2.4 [facility] Comment on above: Performed By: #### B NELLIE WONG, GFR, ADIFF, TROPHS, CBC, ANEU, MG #### [address] [address] [facility] 06-29-2024 High Sensitivity Troponin I 11 ng/L Normal 0-76 [facility] Comment on above: Result Comment: High Sensitive Troponin I Reference Ranges: Female: 0-51 ng/L Male: 0-76 ng/L Testing performed on [facility] using a homogeneous sandwich chemiluminescent immunoassay based on GIROPTIC technology. Performed By: #### B NELLIE WONG, GFR, ADIFF, TROPHS, CBC, ANEU, MG #### [address] [address] [facility] 06-29-2024 Color (U) Yellow Normal [facility] Comment on above: Performed By: #### U A #### [address] [address] Glucose (U) [Mass/Vol] mg/dL Abnormal Negative [facility] Comment on above: Performed By: #### U A #### [address] [address] Ketones Ql (U) Negative Normal Negative [facility] Comment on above: Performed By: #### U A #### [place] [address] UA Appear Clear Normal Clear [facility] Comment on above: Performed By: #### U A #### [place] [address] UA Blood Negative Normal Negative [facility] Comment on above: Performed By: #### U A #### [place] [address] UA Leuk Est Negative Normal Negative [facility] Comment on above: Performed By: #### U A #### [place] [address] UA Nitrite Negative Normal Negative [facility] Comment on above: Performed By: #### U A #### [place] [address] UA pH 6.5 Normal 5.0 - 8.0 [facility] Comment on above: Performed By: #### U A #### [place] [address] UA Protein Negative Normal Negative [facility] Comment on above: Performed By: #### U A #### [place] [address] UA Spec Grav 1.015 Normal 1.015-1.02 5 [facility] Comment on above: Performed By: #### U A #### [place] [address] UA Specimen Type Not Given Normal [facility] Comment on above: Performed By: #### U A #### [place] [address] UA Urobilinogen 0.2 E.U./dL Normal 0.2-1.0 [facility] Comment on above: Performed By: #### U A #### [place] [address] Urobilinogen (U) [Mass/Vol] Negative Normal Negative [facility] Comment on above: Performed By: #### U A #### [facility] [address] [place], [place] [address] XR CHEST 1 VIEWon 06-29-2024 XR CHEST [...] the resident's findings and interpretation. Interpreted by: Henry Khoury Preliminary Report By: Eva Gutierrez Electronically signed By Henry Khoury Dictated Date: 06/29/2024 11:00:14 PM Prelim Date: 06/29/2024 11:02:01 PM Sign Date: 06/29/2024 11:06:58 PM Ordering Provider: CARMELA Madsen [facility] CNOVleonila 06-01-2024 CNOV Office Visit (UCWSTR ) ----- KRISHAN BURNHAM ([id number]) 1965 M Date Time Provider Department 06/01/24 10:15 AM TILA REYES [facility] During your visit today, we recorded the following information about you: Temperature Pulse Respiration Blood pressure 97 degrees 64/minute 18/minute 143/77 Weight 106 kg Tila Reyes APRN.[facility] 06/01/2024 10:15 AM Signed [facility] Subjective Krishan Aaliyah Burnham is a 58 year old male. [...] history is provided by the patient. No educational speech language clinician was used. Sinus Problem Associated symptoms include [...] Patient agreeable to care plan. Tila Reyes APRN.[employer] History and Record Review External record(s) reviewed: [...] Status:Closed by TILA REYES on 06/01/24 Normal [facility] - Microbiology an d Antimicrobial susceptibilityOrdered By: Collin Burciaga on 04-26-2023 SARS-CoV-2 (COVID-19) RNA GITA+probe Ql (Unsp spec) [facility] Absolute lymphocyte countOrd ered By: Temi Katz on 03-20-2023 Lymphocytes Auto (Unsp spec) [#/Vol] 1.27 10*3/uL 0.83-4.51 [facility] Automated lymphocyte count a s percentage of total leukocytesOrdered By: Temi Katz on 03-20-2023 Lymphocytes/100 WBC Auto (Unsp spec) 24.8 % 19-41 [facility] Basophil percentageOrdered B y: Temi Katz on 03-20-2023 Basophils/100 WBC (Bld) 0.6 % 0-[address] [facility] Chloride [Moles/Vol] 105 mmol/L 98-107 [facility] Eosinophils/100 WBC (Bld) 3.5 % 0-5 [facility] Glucose [Mass/Vol] 144 mg/dL 74-106 [facility] Comment on above: Fasting Glucose resu lt greater than or equal to 126 mg/dL suggests DIABETES MELLITUS per A.D.A. criteria. Hemoglobin (Bld) [Mass/Vol] 14.1 g/dL 13.0-16.5 [facility] Monocytes/100 WBC (Bld) 12.1 % 0-[address] [facility] Neutrophils (Bld) [#/Vol] 3.0 10*3/uL 2.0-7.7 [facility] Neutrophils/100 WBC (Bld) 58.8 % 47-70 [facility] Potassium [Moles/Vol] 3.4 mmol/L 3.5-5.1 [facility] Sodium [Moles/Vol] 139 mmol/L 136-145 [facility] WBC (Bld) [#/Vol] 5.1 10*3/uL 4.4-11.0 [facility] Determination of erythrocyte mean corpuscular volume (MCV)Ordered By: Temi Katz on 03-20-2023 MCV (RBC) [Entitic vol] 84.8 fL 80-[address] [facility] Erythrocyte distribution wid th ratioOrdered By: Temi Katz on 03-20-2023 Erythrocyte distribution width (RBC) [Ratio] 12.3 % 11.6-14.6 [facility] Erythrocyte distribution wid th standard deviationOrdered By: Temi Katz on 03-20-2023 Erythrocyte distribution width (RBC) [Entitic vol] 37.8 fL 35.1-43.9 [facility] Hematocrit Auto (Bld) [Volum e fraction]Ordered By: Temi Katz on 03-20-2023 Hematocrit (Bld) [Volume fraction] 41.2 % 40-54 [facility] Immature granulocytes/100 WB C Auto (Bld)Ordered By: eTmi Katz on 03-20-2023 Immature granulocytes/100 WBC (Bld) 0.200 % 0.0-0.9 [facility] Comment on above: IG% - Immature Granu locytes (promyelocytes, myelocytes and metamyelocytes) > 1% indicates that a LEFT SHIFT is Present. Laboratory - Chemistry and C hemistry - challengeOrdered By: Temi Katz on 03-20-2023 CO2 [Moles/Vol] 28.0 mmol/L 21.0-32.0 [facility] Urea nitrogen/Creatinine [Mass ratio] 19.7 mg/mg 10-20 [facility] Laboratory - Hematology and Cell countsOrdered By: Temi Katz on 03-20-2023 MCH (RBC) [Entitic mass] 29.0 pg 27.0-32.0 [facility] MCHC (RBC) [Mass/Vol] 34.2 g/dL 32-36 [facility] Nucleated RBC/100 WBC (Bld) [Ratio] 0 % 0-5 [facility] Platelets (Bld) [#/Vol] 135 10*3/uL 150-450 [facility] No Panel InformationOrdered By: Temi Katz on 03-20-2023 Estimated Creatinine Clearance Calc 105.65 ml/min [facility] Estimated GFR (MDRD) Amer 103 mL/min >60 [facility] Comment on above: GFR Calc Estimated GFR (MDRD) Non-Af Amer 85 mL/min >60 [facility] Comment on above: Non- GFR Calc Platelet mean volume Parajmit-Ec ker (Bld) [Entitic vol]Ordered By: Temi Katz on 03-20-2023 Platelet mean volume (Bld) [Entitic vol] 9.7 fL 6.2-12.0 [facility] RBC Auto (Bld) [#/Vol]Ordere d By: Temi Katz on 03-20-2023 RBC (Bld) [#/Vol] 4.86 10*6/uL 4.6-6.2 [facility] Serum or plasma calcium noy urement (mass/volume)Ordered By: Temi Katz on 03-20-2023 Calcium [Mass/Vol] 8.9 mg/dL 8.5-10.1 [facility] Serum or plasma creatinine m easurement (mass/volume)Ordered By: Temi Katz on 03-20-2023 Creatinine [Mass/Vol] 0.96 mg/dL 0.70-1.30 [facility] Comment on above: The validity of the calculated GFR & GFRAA in patients over 70 years has not been determined. Clinical correlation is essential. Serum or plasma urea nitroge n measurement (mass/volume)Ordered By: Temi Katz on 03-20-2023 Urea nitrogen [Mass/Vol] 19 mg/dL 7 [facility] Thin prep Papanicolaou smear with manual screeningOrdered By: Temi Katz on 03-20-2023 Thin prep Papanicolaou smear with manual screening 6 07-11 [facility] Laboratory - CoagulationOrde red By: Temi Katz on 03-18-2023 PT Coag (PPP) [Time] 13.6 s 11.7-14.9 [facility] Platelet poor plasma interna tional normalized ratio (INR)Ordered By: Temi Katz on 03-18-2023 INR Coag (PPP) [Relative time] 1.0 {INR} [facility] Whole blood hemoglobin A1c/t otal hemoglobin ratio (mass fraction)Ordered By: Temi Katz on 03-18-2023 HbA1c (Bld) [Mass fraction] 6.4 % 3.8-5.6 [facility] Comment on above: Normal < 5.7 % Predi abetic 5.7 - 6.4 % Diabetic >or= 6.5 % Please note range changes. Basophil percentageOrdered B y: Jake Campbell on 03-17-2023 Cholesterol [Mass/Vol] 146 mg/dL <200 [facility] Comment on above: <200 mg/dL Desirable 200-240 mg/dL Borderline >240 mg/dL High Risk Triglyceride [Mass/Vol] 302 mg/dL <[address] [facility] Comment on above: The drugs N-Acetylcy steine and Metamizole may falsely depress this assay.Serum Triglycerides Reference Interval Normal <150 mg/dL Borderline high 150 - 199 mg/dL High 200 - 499 mg/dL Very High > or = 500 mg/dL Laboratory - Chemistry and C hemistry - challengeOrdered By: Jake Campbell on 03-17-2023 Cholesterol in HDL (Body fld) [Mass/Vol] 32 mg/dL >40 [facility] Comment on above: The drugs N-Acetylcy steine and Metamizole may falsely depress this assay. Reference Range HDL <40 mg/dL Low HDL Cholesterol HDL >or= 60 mg/dL High HDL Cholesterol Cholesterol in LDL (Body fld) [Moles/Vol] 54 mg/dL 0-130 [facility] Cholesterol in VLDL Calc [Moles/Vol] 60 mg/dL 5-40 [facility] Absolute lymphocyte countOrd ered By: Xavi Orlando on 03-16-2023 Lymphocytes Auto (Unsp spec) [#/Vol] 1.51 10*3/uL 0.83-4.51 [facility] Automated lymphocyte count a s percentage of total leukocytesOrdered By: Xavi Orlando on 03-16-2023 Lymphocytes/100 WBC Auto (Unsp spec) 23.2 % 19-41 [facility] Basophil percentageOrdered B y: Xavi Orlando on 03-16-2023 Basophils/100 WBC (Bld) 0.5 % 0-[address] [facility] Chloride [Moles/Vol] 106 mmol/L 98-107 [facility] Eosinophils/100 WBC (Bld) 2.5 % 0-5 [facility] Glucose [Mass/Vol] 173 mg/dL 74-106 [facility] Comment on above: Fasting Glucose resu lt greater than or equal to 126 mg/dL suggests DIABETES MELLITUS per A.D.A. criteria. Hemoglobin (Bld) [Mass/Vol] 15.2 g/dL 13.0-16.5 [facility] Monocytes/100 WBC (Bld) 9.7 % 0-[address] [facility] Neutrophils (Bld) [#/Vol] 4.2 10*3/uL 2.0-7.7 [facility] Neutrophils/100 WBC (Bld) 63.8 % 47-70 [facility] Potassium [Moles/Vol] 3.5 mmol/L 3.5-5.1 [facility] Sodium [Moles/Vol] 138 mmol/L 136-145 [facility] WBC (Bld) [#/Vol] 6.5 10*3/uL 4.4-11.0 [facility] Determination of erythrocyte mean corpuscular volume (MCV)Ordered By: Xavi Orlando on 03-16-2023 MCV (RBC) [Entitic vol] 85.9 fL 80-[address] [facility] Erythrocyte distribution wid th ratioOrdered By: Xavi Orlando on 03-16-2023 Erythrocyte distribution width (RBC) [Ratio] 12.4 % 11.6-14.6 [facility] Erythrocyte distribution wid th standard deviationOrdered By: Xavi Orlando on 03-16-2023 Erythrocyte distribution width (RBC) [Entitic vol] 38.6 fL 35.1-43.9 [facility] Hematocrit Auto (Bld) [Volum e fraction]Ordered By: Xavi Orlando on 03-16-2023 Hematocrit (Bld) [Volume fraction] 44.0 % 40-54 [facility] Immature granulocytes/100 WB C Auto (Bld)Ordered By: Xavi Orlando on 03-16-2023 Immature granulocytes/100 WBC (Bld) 0.300 % 0.0-0.9 [facility] Comment on above: IG% - Immature Granu locytes (promyelocytes, myelocytes and metamyelocytes) > 1% indicates that a LEFT SHIFT is Present. Laboratory - Chemistry and C hemistry - challengeOrdered By: Xavi Orlando on 03-16-2023 Natriuretic peptide B (Bld) [Mass/Vol] 5.2 pg/mL 0-100 [facility] CO2 [Moles/Vol] 28.0 mmol/L 21.0-32.0 [facility] Urea nitrogen/Creatinine [Mass ratio] 18.4 mg/mg 10-20 [facility] Laboratory - Hematology and Cell countsOrdered By: Xavi Orlando on 03-16-2023 MCH (RBC) [Entitic mass] 29.7 pg 27.0-32.0 [facility] MCHC (RBC) [Mass/Vol] 34.5 g/dL 32-36 [facility] Nucleated RBC/100 WBC (Bld) [Ratio] 0 % 0-5 [facility] Platelets (Bld) [#/Vol] 147 10*3/uL 150-450 [facility] No Panel InformationOrdered By: Jake Campbell on 03-16-2023 Troponin I High Sensitivity 14 pg/mL 3.0-78.0 [facility] Comment on above: Please Note: New Annel t Units and Gender Specific Reference Ranges. For more information see Policy Stat Procedure [place] High Sensitivity Troponin (TNIH) and attachments. No Panel InformationOrdered By: Xavi Orlando on 03-16-2023 Troponin I High Sensitivity 10 pg/mL 3.0-78.0 [facility] Comment on above: Please Note: New Annel t Units and Gender Specific Reference Ranges. For more information see Policy Stat Procedure [place] High Sensitivity Troponin (TNIH) and attachments. Estimated Creatinine Clearance Calc 81.49 ml/min [facility] Estimated GFR (MDRD) Amer 76 mL/min >60 [facility] Comment on above: GFR Calc Estimated GFR (MDRD) Non-Af Amer 63 mL/min >60 [facility] Comment on above: Non- GFR Calc Platelet mean volume Paramjit-Ec ker (Bld) [Entitic vol]Ordered By: Xavi Orlando on 03-16-2023 Platelet mean volume (Bld) [Entitic vol] 10.1 fL 6.2-12.0 [facility] RBC Auto (Bld) [#/Vol]Ordere d By: Xavi Orlando on 03-16-2023 RBC (Bld) [#/Vol] 5.12 10*6/uL 4.6-6.2 [facility] Serum or plasma calcium noy urement (mass/volume)Ordered By: Xavi Orlando on 03-16-2023 Calcium [Mass/Vol] 9.3 mg/dL 8.5-10.1 [facility] Serum or plasma creatinine m easurement (mass/volume)Ordered By: Xavi Orlando on 03-16-2023 Creatinine [Mass/Vol] 1.25 mg/dL 0.70-1.30 [facility] Comment on above: The validity of the calculated GFR & GFRAA in patients over 70 years has not been determined. Clinical correlation is essential. Serum or plasma urea nitroge n measurement (mass/volume)Ordered By: Xavi Orlando on 03-16-2023 Urea nitrogen [Mass/Vol] 23 mg/dL - [facility] Thin prep Papanicolaou smear with manual screeningOrdered By: Xavi Orlando on 03-16-2023 Thin prep Papanicolaou smear with manual screening 4 5-15 [facility] Absolute lymphocyte countOrd ered By: Kev Bedoya on 01-12-2023 Lymphocytes Auto (Unsp spec) [#/Vol] 1.38 10*3/uL 0.83-4.51 [facility] Basophil percentageOrdered B y: Kev Bedoya on 01-12-2023 Basophils/100 WBC (Bld) 0.4 % 0-[address] [facility] Chloride [Moles/Vol] 107 mmol/L 98-107 [facility] Eosinophils/100 WBC (Bld) 1.3 % 0-5 [facility] Glucose [Mass/Vol] 102 mg/dL 74-106 [facility] Comment on above: Fasting Glucose resu lt from 100 to 125 mg/dL suggests IMPAIRED HOMEOSTASIS per A.D.A. criteria. Neutrophils (Bld) [#/Vol] 6.6 10*3/uL 2.0-7.7 [facility] Neutrophils/100 WBC (Bld) 73.4 % 47-70 [facility] Potassium [Moles/Vol] 3.7 mmol/L 3.5-5.1 [facility] Sodium [Moles/Vol] 141 mmol/L 136-145 [facility] WBC (Bld) [#/Vol] 9.0 10*3/uL 4.4-11.0 [facility] Blood erythrocytes count (nu mber/volume)Ordered By: Kev Bedoya on 01-12-2023 RBC (Bld) [#/Vol] 4.99 10*6/uL 4.6-6.2 [facility] Blood hemoglobin measurement (mass/volume)Ordered By: Kev Bedoya on 01-12-2023 Hemoglobin (Bld) [Mass/Vol] 14.7 g/dL 13.0-16.5 [facility] Blood lymphocytes/100 leukoc ytesOrdered By: Kev Bedoya on 01-12-2023 Lymphocytes/100 WBC (Bld) 15.3 % 19-41 [facility] Blood monocytes/100 leukocyt esOrdered By: Kev Bedoya on 01-12-2023 Monocytes/100 WBC (Bld) 9.4 % 0-[address] [facility] Blood platelet mean volumeOr dered By: Kev Bedoya on 01-12-2023 Platelet mean volume (Bld) [Entitic vol] 9.8 fL 6.2-12.0 [facility] Determination of erythrocyte mean corpuscular volume (MCV)Ordered By: Kev Bedoya on 01-12-2023 MCV (RBC) [Entitic vol] 86.8 fL 80-[address] [facility] Glucose Glucometer (BldC) [M ass/Vol]Ordered By: Kev Bedoya on 01-12-2023 Glucose [Mass/Vol] 116 mg/dL 74-106 [facility] Comment on above: MANAGEMENT OF PATIEN T CARE PER NURSING PROTOCOL Hematocrit Auto (Bld) [Volum e fraction]Ordered By: Kev Bedoya on 01-12-2023 Hematocrit (Bld) [Volume fraction] 43.3 % 40-54 [facility] Laboratory - Chemistry and C hemistry - challengeOrdered By: Kev Bedoya on 01-12-2023 CO2 [Moles/Vol] 28.0 mmol/L 21.0-32.0 [facility] Urea nitrogen/Creatinine [Mass ratio] 20.5 mg/mg 10-20 [facility] Laboratory - Hematology and Cell countsOrdered By: Kev Bedoya on 01-12-2023 Erythrocyte distribution width (RBC) [Entitic vol] 39.1 fL 35.1-43.9 [facility] Erythrocyte distribution width (RBC) [Ratio] 12.5 % 11.6-14.6 [facility] Immature granulocytes/100 WBC (Bld) 0.200 % 0.0-0.9 [facility] Comment on above: IG% - Immature Granu locytes (promyelocytes, myelocytes and metamyelocytes) > 1% indicates that a LEFT SHIFT is Present. MCH (RBC) [Entitic mass] 29.5 pg 27.0-32.0 [facility] Nucleated RBC/100 WBC (Bld) [Ratio] 0 % 0-5 [facility] MCHC Auto (RBC) [Mass/Vol]Or dered By: Kev Bedoya on 01-12-2023 MCHC (RBC) [Mass/Vol] 33.9 g/dL 32-36 [facility] No Panel InformationOrdered By: Kev Bedoya on 01-12-2023 Estimated Creatinine Clearance Calc 98.64 ml/min [facility] Estimated GFR (MDRD) Amer 115 mL/min >60 [facility] Comment on above: GFR Calc Estimated GFR (MDRD) Non-Af Amer 95 mL/min >60 [facility] Comment on above: Non- GFR Calc Platelets bldOrdered By: Prerna Bedoya on 01-12-2023 Platelets (Bld) [#/Vol] 129 10*3/uL 150-450 [facility] Serum or plasma calcium noy urement (mass/volume)Ordered By: Kev Bedoya on 01-12-2023 Calcium [Mass/Vol] 8.7 mg/dL 8.5-10.1 [facility] Serum or plasma creatinine m easurement (mass/volume)Ordered By: Kev Bedoya on 01-12-2023 Creatinine [Mass/Vol] 0.88 mg/dL 0.70-1.30 [facility] Comment on above: The validity of the calculated GFR & GFRAA in patients over 70 years has not been determined. Clinical correlation is essential. Serum or plasma urea nitroge n measurement (mass/volume)Ordered By: Kev Bedoya on 01-12-2023 Urea nitrogen [Mass/Vol] 18 mg/dL 7-18 [facility] Thin prep Papanicolaou smear with manual screeningOrdered By: Kev Bedoya on 01-12-2023 Thin prep Papanicolaou smear with manual screening 6 5-15 [facility] Basophil percentageOrdered B y: Jamee White on 01-11-2023 Bilirubin [Mass/Vol] 0.70 mg/dL 0.20-1.00 [facility] Comment on above: For patients on eltr ombopag therapy, use of Dimension [place] TBIL is not recommended. Cholesterol [Mass/Vol] 117 mg/dL <200 [facility] Comment on above: <200 mg/dL Desirable 200-240 mg/dL Borderline >240 mg/dL High Risk Protein [Mass/Vol] 6.6 g/dL 6.4-8.2 [facility] Triglyceride [Mass/Vol] 176 mg/dL <[address] [facility] Comment on above: The drugs N-Acetylcy steine and Metamizole may falsely depress this assay.Serum Triglycerides Reference Interval Normal <150 mg/dL Borderline high 150 - 199 mg/dL High 200 - 499 mg/dL Very High > or = 500 mg/dL Laboratory - Chemistry and C hemistry - challengeOrdered By: [facility] Alan on 01-11-2023 ALP [Catalytic activity/Vol] 53 U/L 45-117 [facility] ALT [Catalytic activity/Vol] 11 U/L 16-61 [facility] Globulin (S) [Mass/Vol] 3.0 g/dL 2.2-4.[address] [facility] No Panel InformationOrdered By: Jamee Alan on 01-11-2023 Thyroid Stimulating Hormone (TSH) 1.95 uIU/mL 0.358-3.74 [facility] Troponin I High Sensitivity 18 pg/mL 3.0-78.0 [facility] Comment on above: Please Note: New Annel t Units and Gender Specific Reference Ranges. For more information see Policy Stat Procedure [place] High Sensitivity Troponin (TNIH) and attachments. Serum or plasma albumin noy urement (mass/volume)Ordered By: Jamee Alan 01-11-2023 Albumin [Mass/Vol] 3.6 g/dL 3.2-5.0 [facility] Serum or plasma albumin/glob ulin mass ratioOrdered By: Jamee Alan 01-11-2023 Albumin/Globulin [Mass ratio] 1.2 {ratio} 0.9-2.4 [facility] Serum or plasma cholesterol in HDL measurement (mass/volume)Ordered By: Jamee Phillips 01-11-2023 Cholesterol in HDL [Mass/Vol] 32 mg/dL >40 [facility] Comment on above: The drugs N-Acetylcy steine and Metamizole may falsely depress this assay. Reference Range HDL <40 mg/dL Low HDL Cholesterol HDL >or= 60 mg/dL High HDL Cholesterol Serum or plasma cholesterol in VLDL measurement (mass/volume)Ordered By: Jamee Phillips 01-11-2023 Cholesterol in VLDL [Mass/Vol] 35 mg/dL 5-40 [facility] Serum or plasma low density lipoprotein (LDL) cholesterol measurement (mass/volume)Ordered By: Jamee Phillips 01-11-2023 Cholesterol in LDL [Mass/Vol] 50 mg/dL 0-130 [facility] Thin prep Papanicolaou smear with manual screeningOrdered By: Jamee Phillips on 01-11-2023 Thin prep Papanicolaou smear with manual screening 27 U/L 15-37 [facility] Whole blood hemoglobin A1c/t otal hemoglobin ratio (mass fraction)Ordered By: Jamee Phillips on 01-11-2023 HbA1c (Bld) [Mass fraction] 6.0 % 3.8-5.6 [facility] Comment on above: Normal < 5.7 % Predi abetic 5.7 - 6.4 % Diabetic >or= 6.5 % Please note range changes. Absolute lymphocyte countOrd ered By: Flavio Concepcion on 01-10-2023 Lymphocytes Auto (Unsp spec) [#/Vol] 1.57 10*3/uL 0.83-4.51 [facility] Basophil percentageOrdered B y: Flavio Concepcion on 01-10-2023 Basophils/100 WBC (Bld) 0.4 % 0-1 [facility] Chloride [Moles/Vol] 103 mmol/L 98-107 [facility] Eosinophils/100 WBC (Bld) 1.8 % 0-5 [facility] Glucose [Mass/Vol] 159 mg/dL 74-106 [facility] Comment on above: Fasting Glucose resu lt greater than or equal to 126 mg/dL suggests DIABETES MELLITUS per A.D.A. criteria. Neutrophils (Bld) [#/Vol] 4.3 10*3/uL 2.0-7.7 [facility] Neutrophils/100 WBC (Bld) 64.2 % 47-70 [facility] Potassium [Moles/Vol] 3.2 mmol/L 3.5-5.1 [facility] Sodium [Moles/Vol] 138 mmol/L 136-145 [facility] WBC (Bld) [#/Vol] 6.7 10*3/uL 4.4-11.0 [facility] Blood erythrocytes count (nu mber/volume)Ordered By: Flavio Concepcion on 01-10-2023 RBC (Bld) [#/Vol] 4.71 10*6/uL 4.6-6.2 [facility] Blood hemoglobin measurement (mass/volume)Ordered By: Flavio Concepcion on 01-10-2023 Hemoglobin (Bld) [Mass/Vol] 13.8 g/dL 13.0-16.5 [facility] Blood lymphocytes/100 leukoc ytesOrdered By: Flavio Concepcion on 01-10-2023 Lymphocytes/100 WBC (Bld) 23.5 % 19-41 [facility] Blood monocytes/100 leukocyt esOrdered By: Flavio Concepcion on 01-10-2023 Monocytes/100 WBC (Bld) 10.0 % 0-[address] [facility] Blood platelet mean volumeOr dered By: Flavio Concepcion on 01-10-2023 Platelet mean volume (Bld) [Entitic vol] 9.7 fL 6.2-12.0 [facility] Determination of erythrocyte mean corpuscular volume (MCV)Ordered By: Flavio Concepcion on 01-10-2023 MCV (RBC) [Entitic vol] 84.9 fL 80-[address] [facility] Glucose Glucometer (dC) [M ass/Vol]Ordered By: Flavio Concepcion on 01-10-2023 Glucose [Mass/Vol] 167 mg/dL 74-106 [facility] Comment on above: MANAGEMENT OF PATIEN T CARE PER NURSING PROTOCOL Hematocrit Auto (Bld) [Volum e fraction]Ordered By: Flavio Concepcion on 01-10-2023 Hematocrit (Bld) [Volume fraction] 40.0 % 40-54 [facility] INR in Blood by Coagulation assayOrdered By: Flavio Concepcion on 01-10-2023 INR Coag (Bld) [Relative time] 1.1 {INR} [facility] Laboratory - Chemistry and C hemistry - challengeOrdered By: Flavio Concepcion on 01-10-2023 CO2 [Moles/Vol] 31.0 mmol/L 21.0-32.0 [facility] Urea nitrogen/Creatinine [Mass ratio] 14.5 mg/mg 10-20 [facility] Laboratory - Chemistry and C hemistry - challengeOrdered By: Jamee Phillips on 01-10-2023 Magnesium [Mass/Vol] 2.2 mg/dL 1.6-2.6 [facility] Laboratory - CoagulationOrde red By: Flavio Concepcion on 01-10-2023 aPTT Coag (Bld) [Time] 28.1 s 24.1-36.2 [facility] PT Coag (PPP) [Time] 13.9 s 11.7-14.9 [facility] Laboratory - Hematology and Cell countsOrdered By: Flavio Concepcion on 01-10-2023 Erythrocyte distribution width (RBC) [Entitic vol] 37.9 fL 35.1-43.9 [facility] Erythrocyte distribution width (RBC) [Ratio] 12.3 % 11.6-14.6 [facility] Immature granulocytes/100 WBC (Bld) 0.100 % 0.0-0.9 [facility] Comment on above: IG% - Immature Granu locytes (promyelocytes, myelocytes and metamyelocytes) > 1% indicates that a LEFT SHIFT is Present. MCH (RBC) [Entitic mass] 29.3 pg 27.0-32.0 [facility] Nucleated RBC/100 WBC (Bld) [Ratio] 0 % 0-5 [facility] MCHC Auto (RBC) [Mass/Vol]Or dered By: Flavio Concepcion on 01-10-2023 MCHC (RBC) [Mass/Vol] 34.5 g/dL 32-36 [facility] No Panel InformationOrdered By: Flavio Concepcion on 01-10-2023 Estimated Creatinine Clearance Calc 66.26 ml/min [facility] Estimated GFR (MDRD) Amer 72 mL/min >60 [facility] Comment on above: GFR Calc Estimated GFR (MDRD) Non-Af Amer 60 mL/min >60 [facility] Comment on above: Non- GFR Calc Troponin I High Sensitivity 12 pg/mL 3.0-78.0 [facility] Comment on above: Please Note: New Annel t Units and Gender Specific Reference Ranges. For more information see Policy Stat Procedure [place] High Sensitivity Troponin (TNIH) and attachments. Platelets bldOrdered By: Flavio Concepcion on 01-10-2023 Platelets (Bld) [#/Vol] 127 10*3/uL 150-450 [facility] Serum or plasma calcium noy urement (mass/volume)Ordered By: Flavio Concepcion on 01-10-2023 Calcium [Mass/Vol] 8.2 mg/dL 8.5-10.1 [facility] Serum or plasma creatinine m easurement (mass/volume)Ordered By: Flavio Concepcion on 01-10-2023 Creatinine [Mass/Vol] 1.31 mg/dL 0.70-1.30 [facility] Comment on above: The validity of the calculated GFR & GFRAA in patients over 70 years has not been determined. Clinical correlation is essential. Serum or plasma urea nitroge n measurement (mass/volume)Ordered By: Flavio Concepcion on 01-10-2023 Urea nitrogen [Mass/Vol] 19 mg/dL 09-13 [facility] Thin prep Papanicolaou smear with manual screeningOrdered By: Flavio Concepcion on 01-10-2023 Thin prep Papanicolaou smear with manual screening 07-11 [facility] Reminderson 12-16-2022 Reminders - From: Shelly Munguia MA To: Shelly Munguia MA; Sent: 12/15/2022 13:50:33 EDT Show up: 12/15/2022 13:51:00 EDT Subject: colon recall Reminder Message [address] [facility] 12/11/17 first recall letter sent [facility] Patient Letter FTon 2022 Patient Letter [facility] (Inserted Image. Bouchra ble to display) December 15, 2022 KRISHAN BURNHAM [address] [place] [address] : 1965 Dear Krishan, This is a reminder that you are due for an appointment with [facility]. Please contact our office at [phone] to schedule your 5 year colon recall Thank you, [facility] Glucose Glucometer (BldC) [M ass/Vol]Ordered By: Timur Abreu on 07-04-2022 Glucose [Mass/Vol] 131 mg/dL 74-106 [facility] Comment on above: MANAGEMENT OF PATIEN T CARE PER NURSING PROTOCOL No Panel InformationOrdered By: Lala Hannah on 06-18-2022 Stool Calprotectin 90 ug/g 0-120 [facility] Comment on above: Concentration Interp retation Follow-Up<16 - 50 ug/g Normal None>50 -120 ug/g Borderline Re-evaluate in 4-6 weeks >120 ug/g Abnormal Repeat as clinically indicatedPerformed at: [facility] [id number] Director: Luis Alfaro MD, Phone: [phone] Stool lactoferrin detection by immunoassayOrdered By: Lala Hannah on 06-18-2022 Lactoferrin IA Ql (Stl) [facility] Absolute lymphocyte countOrd ered By: Lala Hannah on 06-17-2022 Lymphocytes Auto (Unsp spec) [#/Vol] 1.14 10*3/uL 0.83-4.51 [facility] Albumin Elph [Mass/Vol]Order ed By: Lala Hannah on 06-17-2022 Albumin [Mass/Vol] 4.2 g/dL 2.9-4.4 [facility] Atypical perinuclear antineu trophil cytoplasmic antibodies measurementOrdered By: Lala Hannah on 06-17-2022 Neutrophil cytoplasmic Ab.perinuclear.atypical IF (S) [Titer] <1:20 titer Neg:<1:20 [facility] Comment on above: The atypical pANCA p attern has been observed in asignificant percentage of patients with ulcerative colitis,primary sclerosing cholangitis and autoimmune hepatitis.Performed at: [facility] [id number] Director: Jethro Saenz PhD, Phone: [phone] at: [employer] [id number] Director: Luis Alfaro MD, Phone: [phone] Basophil percentageOrdered B y: Lala Hannah on 06-17-2022 Basophil percentage < 0.2 AI 0.0-0.9 [facility] Basophils/100 WBC (Bld) 0.7 % 0-[address] [facility] Bilirubin [Mass/Vol] 0.70 mg/dL 0.20-1.00 [facility] Comment on above: For patients on eltr ombopag therapy, use of Dimension [place] TBIL is not recommended. Chloride [Moles/Vol] 106 mmol/L 98-107 [facility] Eosinophils/100 WBC (Bld) 3.0 % 0-5 [facility] Glucose [Mass/Vol] 131 mg/dL 74-106 [facility] Comment on above: Fasting Glucose resu lt greater than or equal to 126 mg/dL suggests DIABETES MELLITUS per A.D.A. criteria. LDH [Catalytic activity/Vol] 165 U/L 87-241 [facility] Neutrophils (Bld) [#/Vol] 3.5 10*3/uL 2.0-7.7 [facility] Neutrophils/100 WBC (Bld) 65.2 % 47-70 [facility] Potassium [Moles/Vol] 3.8 mmol/L 3.5-5.1 [facility] Protein [Mass/Vol] 8.0 g/dL 6.4-8.2 [facility] Sodium [Moles/Vol] 137 mmol/L 136-145 [facility] WBC (Bld) [#/Vol] 5.4 10*3/uL 4.4-11.0 [facility] Blood erythrocytes count (nu mber/volume)Ordered By: Lala Hannah on 06-17-2022 RBC (Bld) [#/Vol] 5.50 10*6/uL 4.6-6.2 [facility] Blood hemoglobin measurement (mass/volume)Ordered By: Lala Hannah on 06-17-2022 Hemoglobin (Bld) [Mass/Vol] 16.2 g/dL 13.0-16.5 [facility] Blood lymphocytes/100 leukoc ytesOrdered By: Lala Hannah on 06-17-2022 Lymphocytes/100 WBC (Bld) 21.2 % 19-41 [facility] Blood manual differential co mment interpretation (narrative result)Ordered By: Lala Hannah on 06-17-2022 Manual differential comment Bj (Bld) [Interp] 5.4 [facility] Blood monocytes/100 leukocyt esOrdered By: Lala Hannah on 06-17-2022 Monocytes/100 WBC (Bld) 9.7 % 0-10 [facility] Blood platelet mean volumeOr dered By: Lala Hannah on 06-17-2022 Platelet mean volume (Bld) [Entitic vol] 9.5 fL 6.2-12.0 [facility] Determination of erythrocyte mean corpuscular volume (MCV)Ordered By: Lala Hannah on 06-17-2022 MCV (RBC) [Entitic vol] 86.4 fL 80-[address] [facility] Dilute Miguel Angel's viper venom timeOrdered By: Melania Sanders on 06-17-2022 dRVVT Coag (PPP) [Time] 33.3 s 0.0-47.[address] [facility] Erythrocyte sedimentation ra teOrdered By: Lala Hannah on 06-17-2022 ESR (Bld) [Velocity] 3 mm/h 0-20 [facility] Hematocrit Auto (Bld) [Volum e fraction]Ordered By: Lala Hannah on 06-17-2022 Hematocrit (Bld) [Volume fraction] 47.5 % 40-54 [facility] Interpretation of serum or p lasma protein pattern by immunofixation (narrative resultOrdered By: Lala Hannah on 06-17-2022 Protein Fractions Immunofixation Bj [Interp] See comment [facility] Comment on above: Result: Not Observed Laboratory - Chemistry and C hemistry - challengeOrdered By: Lala Hannah on 06-17-2022 ALP [Catalytic activity/Vol] 53 U/L 45-117 [facility] ALT [Catalytic activity/Vol] 46 U/L 16-61 [facility] CO2 [Moles/Vol] 27.0 mmol/L 21.0-32.0 [facility] Urea nitrogen/Creatinine [Mass ratio] 16.4 mg/mg 10-20 [facility] Laboratory - Hematology and Cell countsOrdered By: Lala Hannah on 06-17-2022 Erythrocyte distribution width (RBC) [Entitic vol] 38.3 fL 35.1-43.9 [facility] Erythrocyte distribution width (RBC) [Ratio] 12.1 % 11.6-14.6 [facility] Immature granulocytes/100 WBC (Bld) 0.200 % 0.0-0.9 [facility] Comment on above: IG% - Immature Granu locytes (promyelocytes, myelocytes and metamyelocytes) > 1% indicates that a LEFT SHIFT is Present. MCH (RBC) [Entitic mass] 29.5 pg 27.0-32.0 [facility] Nucleated RBC/100 WBC (Bld) [Ratio] 0 % 0-5 [facility] MCHC Auto (RBC) [Mass/Vol]Or dered By: Lala Hannah on 06-17-2022 MCHC (RBC) [Mass/Vol] 34.1 g/dL 32-36 [facility] No Panel InformationOrdered By: Lala Hannah on 06-17-2022 Addendum Document Comment . [facility] Comment on above: Protein electrophore sis scan will follow via computer,mail, or completion engineer delivery. Centromere B Antibody <0.2 AI 0.0-0.9 [facility] Endomysial IgA Antibody Negative Negative [facility] Estimated GFR (MDRD) Amer 84 mL/min >60 [facility] Comment on above: GFR Calc Estimated GFR (MDRD) Non-Af Amer 69 mL/min >60 [facility] Comment on above: Non- GFR Calc Immunoglobulin E 36 IU/mL 6-495 [facility] Miscellaneous Test See comment [facility] Comment on above: TEST RESULT LIMITSIB [...] developed and its performance characteristics determined by [employer]. It has not been cleared or approved by the Food and Drug Administration. The FDA has determined that such clearance or approval is not necessary.Atypical pANCA Negative Negative Comments Abnormal Suggestive of Crohn's Disease. Pattern is not conclusive for disease behavior risk stratification. TESTING PERFORMED AT [facility]. ORIGINAL REPORT ON FILE IN LAB CONTAINS ADDITIONAL TEST SITE INFORMATION. GUT SORTER Antibody <0.2 AI 0.0-0.9 [facility] Platelets bldOrdered By: Coreen Hannah on 06-17-2022 Platelets (Bld) [#/Vol] 151 10*3/uL 150-450 [facility] Serum DNA double strand anti body assay (units/volume)Ordered By: Lala Hannah on 06-17-2022 DNA double strand Ab Qn (S) [IU]/mL 0-9 [facility] Comment on above: Negative <5 Equivoca l 5 - 9 Positive >9 Serum Leonarda-1 antibody assay (u nits/volume)Ordered By: Lala Hannah on 06-17-2022 Leonarda-1 extractable nuclear Ab Qn (S) <0.2 AI 0.0-0.9 [facility] Serum Scl-70 extractable nuc lear antibody assay (units/volume)Ordered By: Lala Hannah on 06-17-2022 SCL-70 extractable nuclear Ab Qn (S) <0.2 AI 0.0-0.9 [facility] Serum Mcintyre extractable nucl ear antibody detectionOrdered By: Lala Hannah on 06-17-2022 Mcintyre extractable nuclear Ab Ql (S) <0.2 AI 0.0-0.9 [facility] Serum wgtda-3-fwihdsmn measu rement by electrophoresisOrdered By: Lala Hannah on 06-17-2022 Alpha 1 globulin Elph [Mass/Vol] 0.3 g/dL 0.0-0.4 [facility] Alpha 1 globulin Elph [Mass/Vol] 0.6 g/dL 0.4-1.0 [facility] Serum classic neutrophil cyt oplasmic antibody assay (units/volume)Ordered By: Lala Hannah on 06-17-2022 Neutrophil cytoplasmic Ab.classic Qn (S) <1:20 titer Neg:<1:20 [facility] Serum globulin measurement ( mass/volume)Ordered By: Lala Hannah on 06-17-2022 Globulin (S) [Mass/Vol] 3.0 g/dL 2.2-3.[address] [facility] Serum or plasma C reactive p rotein measurement (mass/volume)Ordered By: Lala Hannah on 06-17-2022 CRP [Mass/Vol] mg/L 0.0-3.0 [facility] Comment on above: C-Reactive Protein ( CRP) provides useful information for thediagnosis, therapy and monitoring of inflammatory processesand associated diseases. For the evaluation of Relative Riskfor Cardiovascular Disease, a High Sensitivity CRP (HSCRP)should be ordered. Serum or plasma IgA measurem ent (mass/volume)Ordered By: Lala Hannah on 06-17-2022 IgA [Mass/Vol] 250 mg/dL 90-386 [facility] Serum or plasma IgG measurem ent (mass/volume)Ordered By: Lala Hannah on 06-17-2022 IgG [Mass/Vol] 1184 mg/dL 603-1613 [facility] Serum or plasma IgM measurem ent (mass/volume)Ordered By: Lala Hannah on 06-17-2022 IgM [Mass/Vol] 46 mg/dL 20-172 [facility] Serum or plasma albumin noy urement (mass/volume)Ordered By: Lala Hannah on 06-17-2022 Albumin [Mass/Vol] 4.5 g/dL 3.2-5.0 [facility] Serum or plasma albumin/glob ulin mass ratioOrdered By: Lala Hannah on 06-17-2022 Albumin/Globulin [Mass ratio] 1.3 {ratio} 0.9-2.4 [facility] Serum or plasma beta globuli n measurement by electrophoresis (mass/volume)Ordered By: Lala Hannah on 06-17-2022 Beta globulin Elph [Mass/Vol] 1.2 g/dL 0.7-1.3 [facility] Serum or plasma calcium noy urement (mass/volume)Ordered By: Lala Hannah on 06-17-2022 Calcium [Mass/Vol] 9.5 mg/dL 8.5-10.1 [facility] Serum or plasma creatinine m easurement (mass/volume)Ordered By: Lala Hannah on 06-17-2022 Creatinine [Mass/Vol] 1.16 mg/dL 0.70-1.30 [facility] Comment on above: The validity of the calculated GFR & GFRAA in patients over 70 years has not been determined. Clinical correlation is essential. Serum or plasma gamma globul in measurement by electrophoresis (mass/volume)Ordered By: Lala Hannah on 06-17-2022 Gamma globulin Elph [Mass/Vol] 1.0 g/dL 0.4-1.8 [facility] Serum or plasma immunoelectr ophoresis interpretation (nominal result)Ordered By: Lala Hannah on 06-17-2022 Interpretation IEP [Interp] Comment . [facility] Comment on above: No monoclonality det ected. Serum or plasma urea nitroge n measurement (mass/volume)Ordered By: Lala Hannah on 06-17-2022 Urea nitrogen [Mass/Vol] 19 mg/dL 7-18 [facility] Serum perinuclear neutrophil cytoplasmic antibody titer by immunofluorescenceOrdered By: Lala Hannah on 06-17-2022 Neutrophil cytoplasmic Ab.perinuclear IF (S) [Titer] <1:20 titer Neg:<1:20 [facility] Comment on above: The presence of posi tive fluorescence exhibiting P-ANCA orC-ANCA patterns alone is not specific for the diagnosis ofWegener's Granulomatosis (WG) or microscopic polyangiitis.Decisions about treatment should not be based solely onANCA IFA results. The [employer] ANCA Group Consensusrecommends follow up testing of positive sera with both ME-3 and MPO-ANCA enzyme immunoassays. As many as 5% serumsamples are positive only by EIA. Ref. AM J Clin [id number];111:507-513. Serum tissue transglutaminas e IgA antibody assay (units/volume)Ordered By: Lala Hannah on 06-17-2022 tTG IgA Qn (S) <2 U/mL 0-3 [facility] Comment on above: Negative 0 - 3 Weak Positive 4 - 10 Positive >10 Tissue Transglutaminase (tTG) has been identified as the endomysial antigen. Studies have demonstr- ated that endomysial IgA antibodies have over 99% specificity for gluten sensitive enteropathy. Thin prep Papanicolaou smear with manual screeningOrdered By: Lala Hannah on 06-17-2022 Thin prep Papanicolaou smear with manual screening 25 U/L 15-37 [facility] Thin prep Papanicolaou smear with manual screening 4 5-15 [facility] Thin prep Papanicolaou smear with manual screening 1.5 0.7-1.7 [facility] Thin prep Papanicolaou smear with manual screeningOrdered By: Melania Sanders on 06-17-2022 Thin prep Papanicolaou smear with manual screening 38.2 sec 0.0-47.6 [facility] Thin prep Papanicolaou smear with manual screening 1.01 Ratio 0.00-1.34 [facility] Thin prep Papanicolaou smear with manual screening 36.6 sec 0.0-43.5 [facility] Thin prep Papanicolaou smear with manual screening Comment: . [facility] Comment on above: No lupus anticoagula nt was detected.Performed at: [facility] [id number] Director: Luis Alfaro MD, Phone: [phone] Thrombin time in platelet po or plasmaOrdered By: Melania Sanders on 06-17-2022 Thrombin time Coag (PPP) [Time] 18.2 sec 0.0-23.0 [facility] Total protein bloodOrdered B y: Lala Camden on 06-17-2022 Protein [Mass/Vol] 7.2 g/dL 6.0-8.5 [facility] Absolute lymphocyte countOrd ered By: Dr. Rodriguez on 05-26-2022 Lymphocytes Auto (Unsp spec) [#/Vol] 1.50 10*3/uL 0.83-4.51 [facility] Basophil percentageOrdered B y: Dr. Rodriguez on 05-26-2022 Basophil percentage 0 SEEN /hpf 0-5 [facility] Basophils/100 WBC (Bld) 0.6 % 0-1 [facility] Chloride [Moles/Vol] 104 mmol/L 98-107 [facility] Eosinophils/100 WBC (Bld) 1.7 % 0-5 [facility] Glucose [Mass/Vol] 121 mg/dL 74-106 [facility] Comment on above: Fasting Glucose resu lt from 100 to 125 mg/dL suggests IMPAIRED HOMEOSTASIS per A.D.A. criteria. Neutrophils (Bld) [#/Vol] 4.8 10*3/uL 2.0-7.7 [facility] Neutrophils/100 WBC (Bld) 66.6 % 47-70 [facility] Potassium [Moles/Vol] 3.9 mmol/L 3.5-5.1 [facility] Sodium [Moles/Vol] 139 mmol/L 136-145 [facility] WBC (Bld) [#/Vol] 7.1 10*3/uL 4.4-11.0 [facility] Bilirubin Test strip Ql (U)O rdered By: Dr. Rodriguez on 05-26-2022 Bilirubin Ql (U) Negative Negative [facility] Blood erythrocytes count (nu mber/volume)Ordered By: Dr. Rodriguez on 05-26-2022 RBC (Bld) [#/Vol] 5.51 10*6/uL 4.6-6.2 [facility] Blood hemoglobin measurement (mass/volume)Ordered By: Dr. Rodriguez on 05-26-2022 Hemoglobin (Bld) [Mass/Vol] 16.1 g/dL 13.0-16.5 [facility] Blood lymphocytes/100 leukoc ytesOrdered By: Dr. Rodriguez on 05-26-2022 Lymphocytes/100 WBC (Bld) 21.1 % 19-41 [facility] Blood monocytes/100 leukocyt esOrdered By: Dr. Rodriguez on 05-26-2022 Monocytes/100 WBC (Bld) 9.6 % 0-[address] [facility] Blood platelet mean volumeOr dered By: Dr. Rodriguez on 05-26-2022 Platelet mean volume (Bld) [Entitic vol] 9.6 fL 6.2-12.0 [facility] Determination of erythrocyte mean corpuscular volume (MCV)Ordered By: Dr. Rodriguez on 05-26-2022 MCV (RBC) [Entitic vol] 85.7 fL 80-[address] [facility] Hematocrit Auto (Bld) [Volum e fraction]Ordered By: Dr. Rodriguez on 05-26-2022 Hematocrit (Bld) [Volume fraction] 47.2 % 40-54 [facility] Ketones Test strip Ql (U)Ord ered By: Dr. Rodriguez on 05-26-2022 Ketones Ql (U) Negative Negative [facility] Laboratory - Chemistry and C hemistry - challengeOrdered By: Dr. Rodriguez on 05-26-2022 CO2 [Moles/Vol] 30.0 mmol/L 21.0-32.0 [facility] Urea nitrogen/Creatinine [Mass ratio] 14.2 mg/mg 10-20 [facility] Laboratory - Hematology and Cell countsOrdered By: Dr. Rodriguez on 05-26-2022 Erythrocyte distribution width (RBC) [Entitic vol] 36.6 fL 35.1-43.9 [facility] Erythrocyte distribution width (RBC) [Ratio] 11.9 % 11.6-14.6 [facility] Immature granulocytes/100 WBC (Bld) 0.400 % 0.0-0.9 [facility] Comment on above: IG% - Immature Granu locytes (promyelocytes, myelocytes and metamyelocytes) > 1% indicates that a LEFT SHIFT is Present. MCH (RBC) [Entitic mass] 29.2 pg 27.0-32.0 [facility] Nucleated RBC/100 WBC (Bld) [Ratio] 0 % 0-5 [facility] MCHC Auto (RBC) [Mass/Vol]Or dered By: Dr. Rodriguez on 05-26-2022 MCHC (RBC) [Mass/Vol] 34.1 g/dL 32-36 [facility] Mucus LM Ql (Urine sed)Order ed By: Dr. Rodriguez on 05-26-2022 Mucus Ql (Urine sed) 0 SEEN /hpf [facility] Nitrite Test strip Ql (U)Ord ered By: Dr. Rodriguez on 05-26-2022 Nitrite Ql (U) Negative Negative [facility] No Panel InformationOrdered By: Dr. Rodriguez on 05-26-2022 Estimated Creatinine Clearance Calc 73.21 ml/min [facility] Estimated GFR (MDRD) Amer 80 mL/min >60 [facility] Comment on above: GFR Calc Estimated GFR (MDRD) Non-Af Amer 66 mL/min >60 [facility] Comment on above: Non- GFR Calc Platelets bldOrdered By: Dr. Rodriguez on 05-26-2022 Platelets (Bld) [#/Vol] 151 10*3/uL 150-450 [facility] Protein Test strip Ql (U)Ord ered By: Dr. Rodriguez on 05-26-2022 Protein Ql (U) Negative Negative [facility] Serum or plasma calcium noy urement (mass/volume)Ordered By: Dr. Rodriguez on 05-26-2022 Calcium [Mass/Vol] 9.2 mg/dL 8.5-10.1 [facility] Serum or plasma creatinine m easurement (mass/volume)Ordered By: Dr. Rodriguez on 05-26-2022 Creatinine [Mass/Vol] 1.20 mg/dL 0.70-1.30 [facility] Comment on above: The validity of the calculated GFR & GFRAA in patients over 70 years has not been determined. Clinical correlation is essential. Serum or plasma urea nitroge n measurement (mass/volume)Ordered By: Dr. Rodriguez on 05-26-2022 Urea nitrogen [Mass/Vol] 17 mg/dL 7-18 [facility] Squamous epithelial cells de tection in urine sediment by light microscopyOrdered By: Dr. Rodriguez on 05-26-2022 Epithelial cells.squamous LM Ql (Urine sed) 0 SEEN /hpf 0-5 [facility] Thin prep Papanicolaou smear with manual screeningOrdered By: Dr. Rodriguez on 05-26-2022 Thin prep Papanicolaou smear with manual screening 5 5-15 [facility] Urine blood detectionOrdered By: Dr. Rodriguez on 05-26-2022 RBC Ql (U) Negative Negative [facility] RBC Ql (U) 0 SEEN /hpf 0-5 [facility] Urine clarityOrdered By: Dr. Rodriguez on 05-26-2022 Clarity (U) Clear Clear [facility] Urine color determinationOrd ered By: Dr. Rodriguez on 05-26-2022 Color (U) Yellow Yellow [facility] Urine glucose detectionOrder ed By: Dr. Rodriguez on 05-26-2022 Glucose Ql (U) 1000 mg/dl Normal [facility] Urine leukocyte esterase det ection by dipstickOrdered By: Dr. Rodriguez on 05-26-2022 Leukocyte esterase Test strip Ql (U) Negative Negative [facility] Urine pHOrdered By: Dr. Wes helms on 05-26-2022 pH (U) 7.0 [pH] 5.0 - 8.0 [facility] Urine sediment bacteria coun t by microscopy (number/high power field)Ordered By: Dr. Rodriguez on 05-26-2022 Bacteria LM.HPF (Urine sed) [#/Area] 0 /[HPF] None Seen [facility] Urine specific gravity measu rementOrdered By: Dr. Rodriguez on 05-26-2022 Specific gravity (U) [Rel density] 1.010 1.002-1.03 0 [facility] Urobilinogen Auto test strip Ql (U)Ordered By: Dr. Rodriguez on 05-26-2022 Urobilinogen Ql (U) Normal mg/dl Normal [facility] Absolute lymphocyte countOrd ered By: Dr. Power on 03-24-2022 Lymphocytes Auto (Unsp spec) [#/Vol] 1.67 10*3/uL 0.83-4.51 [facility] Basophil percentageOrdered B y: Dr. Power on 03-24-2022 Basophils/100 WBC (Bld) 0.6 % 0-[address] [facility] Bilirubin [Mass/Vol] 0.70 mg/dL 0.20-1.00 [facility] Comment on above: For patients on eltr ombopag therapy, use of Dimension [place] TBIL is not recommended. Chloride [Moles/Vol] 106 mmol/L 98-107 [facility] Eosinophils/100 WBC (Bld) 2.6 % 0-5 [facility] Glucose [Mass/Vol] 115 mg/dL 74-106 [facility] Comment on above: Fasting Glucose resu lt from 100 to 125 mg/dL suggests IMPAIRED HOMEOSTASIS per A.D.A. criteria. Neutrophils (Bld) [#/Vol] 4.3 10*3/uL 2.0-7.7 [facility] Neutrophils/100 WBC (Bld) 60.9 % 47-70 [facility] Potassium [Moles/Vol] 4.0 mmol/L 3.5-5.1 [facility] Protein [Mass/Vol] 7.5 g/dL 6.4-8.2 [facility] Sodium [Moles/Vol] 140 mmol/L 136-145 [facility] WBC (Bld) [#/Vol] 7.0 10*3/uL 4.4-11.0 [facility] Blood erythrocytes count (nu mber/volume)Ordered By: Dr. Power on 03-24-2022 RBC (Bld) [#/Vol] 5.53 10*6/uL 4.6-6.2 [facility] Blood hemoglobin measurement (mass/volume)Ordered By: Dr. Power on 03-24-2022 Hemoglobin (Bld) [Mass/Vol] 16.2 g/dL 13.0-16.5 [facility] Blood lymphocytes/100 leukoc ytesOrdered By: Dr. Power on 03-24-2022 Lymphocytes/100 WBC (Bld) 23.9 % 19-41 [facility] Blood monocytes/100 leukocyt esOrdered By: Dr. Power on 03-24-2022 Monocytes/100 WBC (Bld) 11.9 % 0-[address] [facility] Blood platelet mean volumeOr dered By: Dr. Power on 03-24-2022 Platelet mean volume (Bld) [Entitic vol] 10.0 fL 6.2-12.0 [facility] Determination of erythrocyte mean corpuscular volume (MCV)Ordered By: Dr. Power on 03-24-2022 MCV (RBC) [Entitic vol] 87.3 fL 80-[address] [facility] Direct bilirubinOrdered By: Dr. Power on 03-24-2022 Bilirubin.direct [Mass/Vol] 0.18 mg/dL 0.00-0.30 [facility] Hematocrit Auto (Bld) [Volum e fraction]Ordered By: Dr. Power on 03-24-2022 Hematocrit (Bld) [Volume fraction] 48.3 % 40-54 [facility] Laboratory - Chemistry and C hemistry - challengeOrdered By: Dr. Power on 03-24-2022 ALP [Catalytic activity/Vol] 53 U/L 45-117 [facility] ALT [Catalytic activity/Vol] 32 U/L 16-61 [facility] CO2 [Moles/Vol] 27.0 mmol/L 21.0-32.0 [facility] Globulin (S) [Mass/Vol] 3.5 g/dL 2.2-4.[address] [facility] Lipase [Catalytic activity/Vol] 195 U/L 73-393 [facility] Magnesium [Mass/Vol] 2.4 mg/dL 1.6-2.6 [facility] Urea nitrogen/Creatinine [Mass ratio] 18.4 mg/mg 10-20 [facility] Laboratory - Hematology and Cell countsOrdered By: Dr. Power on 03-24-2022 Erythrocyte distribution width (RBC) [Entitic vol] 40.3 fL 35.1-43.9 [facility] Erythrocyte distribution width (RBC) [Ratio] 12.6 % 11.6-14.6 [facility] Immature granulocytes/100 WBC (Bld) 0.100 % 0.0-0.9 [facility] Comment on above: IG% - Immature Granu locytes (promyelocytes, myelocytes and metamyelocytes) > 1% indicates that a LEFT SHIFT is Present. MCH (RBC) [Entitic mass] 29.3 pg 27.0-32.0 [facility] Nucleated RBC/100 WBC (Bld) [Ratio] 0 % 0-5 [facility] MCHC Auto (RBC) [Mass/Vol]Or dered By: Dr. Power on 03-24-2022 MCHC (RBC) [Mass/Vol] 33.5 g/dL 32-36 [facility] No Panel InformationOrdered By: Dr. Power on 03-24-2022 Troponin I High Sensitivity 11 pg/mL 3.0-78.0 [facility] Comment on above: Please Note: New Annel t Units and Gender Specific Reference Ranges. For more information see Policy Stat Procedure [place] High Sensitivity Troponin (TNIH) and attachments. Estimated Creatinine Clearance Calc 77.06 ml/min [facility] Estimated GFR (MDRD) Amer 85 mL/min >60 [facility] Comment on above: GFR Calc Estimated GFR (MDRD) Non-Af Amer 70 mL/min >60 [facility] Comment on above: Non- GFR Calc Platelets bldOrdered By: Dr. Power on 03-24-2022 Platelets (Bld) [#/Vol] 158 10*3/uL 150-450 [facility] Serum or plasma albumin noy urement (mass/volume)Ordered By: Dr. Power on 03-24-2022 Albumin [Mass/Vol] 4.0 g/dL 3.2-5.0 [facility] Serum or plasma calcium noy urement (mass/volume)Ordered By: Dr. Power on 03-24-2022 Calcium [Mass/Vol] 8.8 mg/dL 8.5-10.1 [facility] Serum or plasma creatinine m easurement (mass/volume)Ordered By: Dr. Power on 03-24-2022 Creatinine [Mass/Vol] 1.14 mg/dL 0.70-1.30 [facility] Comment on above: The validity of the calculated GFR & GFRAA in patients over 70 years has not been determined. Clinical correlation is essential. Serum or plasma urea nitroge n measurement (mass/volume)Ordered By: Dr. Power on 03-24-2022 Urea nitrogen [Mass/Vol] 21 mg/dL 7-18 [facility] Thin prep Papanicolaou smear with manual screeningOrdered By: Dr. Power on 03-24-2022 Thin prep Papanicolaou smear with manual screening 13 U/L 15-37 [facility] Thin prep Papanicolaou smear with manual screening 7 5-15 [facility] Dilute Miguel Angel's viper venom timeon 01-31-2022 dRVVT Coag (PPP) [Time] 44.7 s 0.0-47.[address] [facility] Thin prep Papanicolaou smear with manual screeningon 01-31-2022 Thin prep Papanicolaou smear with manual screening 40.6 sec 0.0-47.6 [facility] Thin prep Papanicolaou smear with manual screening 1.12 Ratio 0.00-1.34 [facility] Thin prep Papanicolaou smear with manual screening 35.7 sec 0.0-51.9 [facility] Thin prep Papanicolaou smear with manual screening Comment: . [facility] Comment on above: No lupus anticoagula nt was detected.Performed at: [facility] [id number] Director: Luis Alfaro MD, Phone: [phone] Thrombin time in platelet po or plasmaon 01-31-2022 Thrombin time Coag (PPP) [Time] 20.3 sec 0.0-23.0 [facility] EP PanelOrdered By: Adi Carranza carey on 01-15-2022 Gastrointestinal pathogens panel GITA+probe (Stl) [facility] Absolute lymphocyte countOrd ered By: Adi Nevarez on 01-14-2022 Lymphocytes Auto (Unsp spec) [#/Vol] 0.97 10*3/uL 0.83-4.51 [facility] Basophil percentageOrdered B y: Adi Nevarez on 01-14-2022 Basophil percentage 0 SEEN /hpf 0-5 [facility] Basophils/100 WBC (Bld) 0.3 % 0-[address] [facility] Bilirubin [Mass/Vol] 0.90 mg/dL 0.20-1.00 [facility] Comment on above: For patients on eltr ombopag therapy, use of Dimension [place] TBIL is not recommended. Chloride [Moles/Vol] 102 mmol/L 98-107 [facility] Eosinophils/100 WBC (Bld) 0.8 % 0-5 [facility] Glucose [Mass/Vol] 116 mg/dL 74-106 [facility] Comment on above: Fasting Glucose resu lt from 100 to 125 mg/dL suggests IMPAIRED HOMEOSTASIS per A.D.A. criteria. Neutrophils (Bld) [#/Vol] 4.4 10*3/uL 2.0-7.7 [facility] Neutrophils/100 WBC (Bld) 68.1 % 47-70 [facility] Potassium [Moles/Vol] 3.6 mmol/L 3.5-5.1 [facility] Protein [Mass/Vol] 7.8 g/dL 6.4-8.2 [facility] Sodium [Moles/Vol] 137 mmol/L 136-145 [facility] WBC (Bld) [#/Vol] 6.5 10*3/uL 4.4-11.0 [facility] Lactate [Moles/Vol] 0.7 mmol/L 0.4-2.0 [facility] Bilirubin Test strip Ql (U)O rdered By: Adi Peraleskwaku on 01-14-2022 Bilirubin Ql (U) Negative Negative [facility] Blood erythrocytes count (nu mber/volume)Ordered By: Adi Nevarez on 01-14-2022 RBC (Bld) [#/Vol] 5.79 10*6/uL 4.6-6.2 [facility] Blood hemoglobin measurement (mass/volume)Ordered By: Adi Nevarez on 01-14-2022 Hemoglobin (Bld) [Mass/Vol] 16.7 g/dL 13.0-16.5 [facility] Blood lymphocytes/100 leukoc ytesOrdered By: Adi Nevarez on 01-14-2022 Lymphocytes/100 WBC (Bld) 14.9 % 19-41 [facility] Blood monocytes/100 leukocyt esOrdered By: Adi Nevarez on 01-14-2022 Monocytes/100 WBC (Bld) 15.7 % 0-[address] [facility] Blood platelet mean volumeOr dered By: Adi Nevarez on 01-14-2022 Platelet mean volume (Bld) [Entitic vol] 10.1 fL 6.2-12.0 [facility] Determination of erythrocyte mean corpuscular volume (MCV)Ordered By: Adi Nevarez on 01-14-2022 MCV (RBC) [Entitic vol] 85.0 fL 80-[address] [facility] Hematocrit Auto (Bld) [Volum e fraction]Ordered By: Adi Nevarez on 01-14-2022 Hematocrit (Bld) [Volume fraction] 49.2 % 40-54 [facility] INR in Blood by Coagulation assayOrdered By: Adi Nevarez on 01-14-2022 INR Coag (Bld) [Relative time] 1.1 {INR} [facility] Ketones Test strip Ql (U)Ord ered By: Adi Nevarez on 01-14-2022 Ketones Ql (U) 5 mg/dl Negative [facility] Laboratory - Chemistry and C hemistry - challengeOrdered By: Adi Nevarez on 01-14-2022 ALP [Catalytic activity/Vol] 51 U/L 45-117 [facility] ALT [Catalytic activity/Vol] 51 U/L 16-61 [facility] CO2 [Moles/Vol] 27.0 mmol/L 21.0-32.0 [facility] Globulin (S) [Mass/Vol] 3.5 g/dL 2.2-4.[address] [facility] Lipase [Catalytic activity/Vol] 72 U/L 73-393 [facility] Urea nitrogen/Creatinine [Mass ratio] 19.3 mg/mg 10-20 [facility] Laboratory - CoagulationOrde red By: Adi Nevarez on 01-14-2022 PT Coag (PPP) [Time] 14.0 s 11.7-14.9 [facility] Laboratory - Hematology and Cell countsOrdered By: Adi Nevarez on 01-14-2022 Erythrocyte distribution width (RBC) [Entitic vol] 39.5 fL 35.1-43.9 [facility] Erythrocyte distribution width (RBC) [Ratio] 13.0 % 11.6-14.6 [facility] Immature granulocytes/100 WBC (Bld) 0.200 % 0.0-0.9 [facility] Comment on above: IG% - Immature Granu locytes (promyelocytes, myelocytes and metamyelocytes) > 1% indicates that a LEFT SHIFT is Present. MCH (RBC) [Entitic mass] 28.8 pg 27.0-32.0 [facility] Nucleated RBC/100 WBC (Bld) [Ratio] 0 % 0-5 [facility] MCHC Auto (RBC) [Mass/Vol]Or dered By: Adi Nevarez on 01-14-2022 MCHC (RBC) [Mass/Vol] 33.9 g/dL 32-36 [facility] Mucus LM Ql (Urine sed)Order ed By: Adi Nevarez on 01-14-2022 Mucus Ql (Urine sed) 0 SEEN /hpf [facility] Nitrite Test strip Ql (U)Ord ered By: Adi Nevarez on 01-14-2022 Nitrite Ql (U) Negative Negative [facility] No Panel InformationOrdered By: Adi Nevarez on 01-14-2022 Estimated Creatinine Clearance Calc 80.60 ml/min [facility] Estimated GFR (MDRD) Amer 90 mL/min >60 [facility] Comment on above: GFR Calc Estimated GFR (MDRD) Non-Af Amer 74 mL/min >60 [facility] Comment on above: Non- GFR Calc Platelets bldOrdered By: Randa Nevarez on 01-14-2022 Platelets (Bld) [#/Vol] 144 10*3/uL 150-450 [facility] Protein Test strip Ql (U)Ord ered By: Adi Nevarez on 01-14-2022 Protein Ql (U) Negative Negative [facility] Serum or plasma albumin noy urement (mass/volume)Ordered By: Adi Nevarez on 01-14-2022 Albumin [Mass/Vol] 4.3 g/dL 3.2-5.0 [facility] Serum or plasma albumin/glob ulin mass ratioOrdered By: Adi Nevarez on 01-14-2022 Albumin/Globulin [Mass ratio] 1.2 {ratio} 0.9-2.4 [facility] Serum or plasma calcium noy urement (mass/volume)Ordered By: Adi Nevarez on 01-14-2022 Calcium [Mass/Vol] 9.0 mg/dL 8.5-10.1 [facility] Serum or plasma creatinine m easurement (mass/volume)Ordered By: Adi Nevarez on 01-14-2022 Creatinine [Mass/Vol] 1.09 mg/dL 0.70-1.30 [facility] Comment on above: The validity of the calculated GFR & GFRAA in patients over 70 years has not been determined. Clinical correlation is essential. Serum or plasma urea nitroge n measurement (mass/volume)Ordered By: Adi Nevarez on 01-14-2022 Urea nitrogen [Mass/Vol] 21 mg/dL 7-18 [facility] Squamous epithelial cells de tection in urine sediment by light microscopyOrdered By: Adi Nevarez on 01-14-2022 Epithelial cells.squamous LM Ql (Urine sed) 0 SEEN /hpf 0-5 [facility] Thin prep Papanicolaou smear with manual screeningOrdered By: Adi Nevarez on 01-14-2022 Thin prep Papanicolaou smear with manual screening 28 U/L 15-37 [facility] Thin prep Papanicolaou smear with manual screening 8 5-15 [facility] Urine blood detectionOrdered By: Adi Nevarez on 01-14-2022 RBC Ql (U) 10 /ul Negative [facility] RBC Ql (U) 0 SEEN /hpf 0-5 [facility] Urine clarityOrdered By: Randa Nevarez on 01-14-2022 Clarity (U) Clear Clear [facility] Urine color determinationOrd ered By: Adi Nevarez on 01-14-2022 Color (U) Straw Yellow [facility] Urine glucose detectionOrder ed By: Adi Nevarez on 01-14-2022 Glucose Ql (U) 1000 mg/dl Normal [facility] Urine leukocyte esterase det ection by dipstickOrdered By: Adi Nevarez on 01-14-2022 Leukocyte esterase Test strip Ql (U) Negative Negative [facility] Urine pHOrdered By: Adi patino on 01-14-2022 pH (U) 6.0 [pH] 5.0 - 8.0 [facility] Urine sediment bacteria coun t by microscopy (number/high power field)Ordered By: Adi Nevarez on 01-14-2022 Bacteria LM.HPF (Urine sed) [#/Area] 0 /[HPF] None Seen [facility] Urine specific gravity measu rementOrdered By: Adi Nevarez on 01-14-2022 Specific gravity (U) [Rel density] 1.015 1.002-1.03 0 [facility] Urobilinogen Auto test strip Ql (U)Ordered By: Adi Nevarez on 01-14-2022 Urobilinogen Ql (U) Normal mg/dl Normal [facility] Absolute lymphocyte countOrd ered By: Melania Sanders on 01-05-2022 Lymphocytes Auto (Unsp spec) [#/Vol] 1.37 10*3/uL 0.83-4.51 [facility] Basophil percentageOrdered B y: Melania Sanders on 01-05-2022 Basophils/100 WBC (Bld) 0.5 % 0-[address] [facility] Bilirubin [Mass/Vol] 0.80 mg/dL 0.20-1.00 [facility] Comment on above: For patients on eltr ombopag therapy, use of Dimension [place] TBIL is not recommended. Chloride [Moles/Vol] 103 mmol/L 98-107 [facility] Cholesterol [Mass/Vol] 149 mg/dL <200 [facility] Comment on above: <200 mg/dL Desirable 200-240 mg/dL Borderline >240 mg/dL High Risk Eosinophils/100 WBC (Bld) 2.0 % 0-5 [facility] Glucose [Mass/Vol] 101 mg/dL 74-106 [facility] Comment on above: Fasting Glucose resu lt from 100 to 125 mg/dL suggests IMPAIRED HOMEOSTASIS per A.D.A. criteria. Neutrophils (Bld) [#/Vol] 4.3 10*3/uL 2.0-7.7 [facility] Neutrophils/100 WBC (Bld) 66.4 % 47-70 [facility] Potassium [Moles/Vol] 3.6 mmol/L 3.5-5.1 [facility] Protein [Mass/Vol] 7.8 g/dL 6.4-8.2 [facility] Sodium [Moles/Vol] 138 mmol/L 136-145 [facility] Triglyceride [Mass/Vol] 137 mg/dL <[address] [facility] Comment on above: The drugs N-Acetylcy steine and Metamizole may falsely depress this assay.Serum Triglycerides Reference Interval Normal <150 mg/dL Borderline high 150 - 199 mg/dL High 200 - 499 mg/dL Very High > or = 500 mg/dL WBC (Bld) [#/Vol] 6.4 10*3/uL 4.4-11.0 [facility] Blood erythrocytes count (nu mber/volume)Ordered By: Melania Sanders on 01-05-2022 RBC (Bld) [#/Vol] 5.50 10*6/uL 4.6-6.2 [facility] Blood hemoglobin measurement (mass/volume)Ordered By: Melania aSnders on 01-05-2022 Hemoglobin (Bld) [Mass/Vol] 16.1 g/dL 13.0-16.5 [facility] Blood lymphocytes/100 leukoc ytesOrdered By: Melania Sanders on 01-05-2022 Lymphocytes/100 WBC (Bld) 21.3 % 19-41 [facility] Blood monocytes/100 leukocyt esOrdered By: Melania Sanders on 01-05-2022 Monocytes/100 WBC (Bld) 9.5 % 0-10 [facility] Blood or tissue coagulation factor II targeted mutation analysis by molecular geneticOrdered By: Melania Sanders on 01-05-2022 F2 gene targeted mutation analysis Angel Corral (Bld/Tiss) Comment . [facility] Comment on above: Result: c.*97G>A - [...] in theF2 gene and a c.1601G>A (p. [id number]) variant in the F5 gene(commonly referred to as Factor V Leiden) have an approximately 20-fold increased risk for venous thromboembolism. Risks are likely sedrick even higher in more complex genotype combinations involving theF2 c.*97G>A variant and Factor V Leiden (PMID: 18712129). Additionalrisk factors include but are not limited [...] for health care providers to discussresults at [phone] ([phone]).Test Details:Variant analyzed: c.*97G>A, previously referred to as [id number]/Limitations:DNA analysis of the F2 gene (NM_000506.5) was [...] was developed and its performance characteristics determinedby [facility]. It has not been cleared or approved by the Food and DrugAdministration.References:Ward Escobedo, Mahsa STOUT, Harinder R, Ashley WW, Jed JH; [employer] ProfessionalPractice and Guidelines Committee. Addendum: [employer] [place] [employer] consensus statement on factor V Leiden mutationtesting. St[employer] Med. 2020May 01. doi: 10.1038/s77271-913-48444-l.PMID: 69578150.Leland SCHMIDT. Prothrombin Thrombophilia. 2005Sep 20[Updated 2020Apr 02]. In: Fredo MP, Ciro HH, Bo RA, et al.,editors. John(R) [Internet]. [place] ([place]): [facility]; 5619-2956. Available from:https://www.ncbi.nlm.nih.gov/books/SCK5669/James S, Mahsa STOUT, Pablo X, Aldo B, Shahzad EB, Kika P, Jazmín CS;[facility] Laboratory Milk Processing Worker Committee. Venous thromboembolismlaboratory testing (factor V Leiden and factor II c.*97G>A),2018 update: a technical standard of the [place] [employer] ([employer]). [employer]. 2017;20(12):9299-2368.doi: 10.1038/c28633-799-8441-u. Epub 2017Dec 01. PMID: 40143029.Adrienne Carballo, PhD, Kishore Burgess, PhDGreg Shields, PhD, Kory Garcia, PhD, Christel Anand, PhD, FACW Amanda Caicedo, PhD, Katherine Warner, PhD, Lynn Chakraborty, PhD, FACMG Blood platelet mean volumeOr dered By: Melania Sanders on 01-05-2022 Platelet mean volume (Bld) [Entitic vol] 9.8 fL 6.2-12.0 [facility] Determination of erythrocyte mean corpuscular volume (MCV)Ordered By: Melania Sanders on 01-05-2022 MCV (RBC) [Entitic vol] 84.5 fL 80-[address] [facility] Dilute Miguel Angel's viper venom timeOrdered By: Melania Sanders on 01-05-2022 dRVVT Coag (PPP) [Time] 47.6 s 0.0-47.[address] [facility] Hematocrit Auto (Bld) [Volum e fraction]Ordered By: Melania Sanders on 01-05-2022 Hematocrit (Bld) [Volume fraction] 46.5 % 40-54 [facility] Laboratory - Chemistry and C hemistry - challengeOrdered By: Melania [facility] on 01-05-2022 ALP [Catalytic activity/Vol] 54 U/L 45-117 [facility] ALT [Catalytic activity/Vol] 42 U/L 16-61 [facility] CO2 [Moles/Vol] 26.0 mmol/L 21.0-32.0 [facility] Globulin (S) [Mass/Vol] 3.6 g/dL 2.2-4.[address] [facility] Urea nitrogen/Creatinine [Mass ratio] 21.0 mg/mg 10-20 [facility] Laboratory - Hematology and Cell countsOrdered By: Melania Sanders on 01-05-2022 Erythrocyte distribution width (RBC) [Entitic vol] 39.9 fL 35.1-43.9 [facility] Erythrocyte distribution width (RBC) [Ratio] 13.2 % 11.6-14.6 [facility] Immature granulocytes/100 WBC (Bld) 0.300 % 0.0-0.9 [facility] Comment on above: IG% - Immature Granu locytes (promyelocytes, myelocytes and metamyelocytes) > 1% indicates that a LEFT SHIFT is Present. MCH (RBC) [Entitic mass] 29.3 pg 27.0-32.0 [facility] Nucleated RBC/100 WBC (Bld) [Ratio] 0 % 0-5 [facility] Auto (RBC) [Mass/Vol]Or dered By: Melania Aliciastacia on 01-05-2022 MCHC (RBC) [Mass/Vol] 34.6 g/dL 32-36 [facility] No Panel InformationOrdered By: Melania Sanders on 01-05-2022 Anti-Cardiolipin IgM Antibody < 9 MPL U/mL 0-12 [facility] Comment on above: Negative: <13 Indete rminate: 13 - 20 Low-Med Positive: >20 - 80 High Positive: >80 Coagulation Factor VIII Activity 112 % 56-140 [facility] Estimated GFR (MDRD) Amer 100 mL/min >60 [facility] Comment on above: GFR Calc Estimated GFR (MDRD) Non-Af Amer 82 mL/min >60 [facility] Comment on above: Non- GFR Calc Factor V Leiden Mutation Comment . [facility] Comment on above: Result: c.1601G>A (p .[id number]) - Not DetectedThis result is not associated with an increased risk for venousthromboembolism. See Additional Clinical Information andComments.Additional Clinical Information:Venous thromboembolism is a multifactorial diseaseinfluenced by genetic, environmental, and circumstantialrisk factors. The c.1601G>A (p. [id number]) variant in theF5 gene, commonly referred to [...] F2 c.*97G>Avariant and Factor V Leiden (PMID: [id number]). Additionalrisk factors include but are not limited [...] for health careproviders to discuss results at [phone] ([phone]).Test Details:Variant Analyzed: c.1601G>A (p. [id number]), referred toas Factor V LeidenMethods/Limitations:DNA analysis of [...] was developed and its performance characteristicsdetermined by [employer] [facility]. It has not been cleared orapproved by the Food and Drug Administration.References:Ward Escobedo, Mahsa STOUT, Harinder R, Ashley WW, Jde JH; ACMGProfessional Practice and Guidelines Committee. Addendum:[employer] [place] [employer] consensus statement onfactor V Leiden mutation testing. [facility]. 2020May 01.doi: 10.1038/[id number]. PMID: [id number].Leland SCHMIDT. Factor V Leiden Thrombophilia. 1998July 10[Updated 2017Mar 02]. In: Fredo MP, Ciro HH, Bo RA,et al., editors. John(R) [Internet]. [place] ([place]):[facility]; 2207-9306. Availablefrom: https://www.ncbi.nlm.nih.gov/books/VLL8481/James Escobedo, Mahsa STOUT, Pablo X, Aldo B, Shahzad EB, Kika P,Jazmín POTTER; [facility] Laboratory Milk Processing Worker Committee.Venous thromboembolism laboratory testing (factor V Leidenand factor II c.*97G>A), 2018 update: a technical standardof the [employer] [place] [employer]). [facility]. 2018 Jan;20(12):9185-4916. doi:10.1038/[id number]. Epub 2017Dec 01. PMID: [id number].Adrienne Carballo, PhD, Kishore Burgess, PhDGreg Shields, PhD, Kory Garcia, PhD, Christel Anand, PhD, FACW Amanda Caicedo, PhD, Katherine Warner, PhD, Lynn Chakraborty, PhD, [facility] Homocysteine 9.4 umol/L 3.2-10.7 [facility] Platelet poor plasma antithr ombin actual/normal ratio by chromogenic method (relativeOrdered By: Melania Sanders on 01-05-2022 Antithrombin actual/normal Chromogenic method (PPP) [Rel catalytic activity/Vol] 95 % 75-135 [facility] Comment on above: Direct Xa inhibitor anticoagulants such as rivaroxaban,apixaban and edoxaban will lead to spuriously elevatedantithrombin activity levels possibly masking a deficiency. Platelet poor plasma antithr ombin antigen detection by immunoassayOrdered By: Melania Sanders on 01-05-2022 Antithrombin Ag IA Ql (PPP) 85 % 72-124 [facility] Comment on above: This test was develo antonietta and its performance characteristicsdetermined by [employer]. It has not been cleared orapproved by the Food and Drug Administration. Platelets bldOrdered By: Dustin Sanders on 01-05-2022 Platelets (Bld) [#/Vol] 140 10*3/uL 150-450 [facility] Protein C antigen assayOrder ed By: Melania Sanders on 01-05-2022 Protein C Ag actual/normal IA (PPP) [Relative mass conc] 97 % 60-150 [facility] Protein S measurement in cesario telet poor plasma by coagulation assay (units/volume)Ordered By: Melania Sanders on 01-05-2022 Protein S Coag Qn (PPP) 96 % 60-[address] [facility] Comment on above: This test was develo ped and its performance characteristicsdetermined by [facility]. It has not been cleared orapproved by the Food and Drug Administration. Protein S, freeOrdered By: Lionel Sanders on 01-05-2022 Protein S Free Ag IA Qn (PPP) 95 % 61-136 [facility] Serum beta 2 glycoprotein 1 IgA antibody detectionOrdered By: Melania Sanders on 01-05-2022 Beta 2 glycoprotein 1 IgA Ql (S) <9 0-25 [facility] Comment on above: Result Units: GPI [...] glycoprotein 1 IgG Ql (S) <9 0-20 [facility] Comment on above: Result Units: GPI [...] glycoprotein 1 IgM Ql (S) <9 0-32 [facility] Comment on above: Result Units: GPI [...] Qn (S) < 9 GPL U/mL 0-14 [facility] Comment on above: Negative: <15 Indete rminate: 15 - 20 Low-Med Positive: >20 - 80 High Positive: >80 Serum or plasma albumin noy urement (mass/volume)Ordered By: Melania Sanders on 01-05-2022 Albumin [Mass/Vol] 4.2 g/dL 3.2-5.0 [facility] Serum or plasma albumin/glob ulin mass ratioOrdered By: Melania Tommy on 01-05-2022 Albumin/Globulin [Mass ratio] 1.2 {ratio} 0.9-2.4 [facility] Serum or plasma calcium noy urement (mass/volume)Ordered By: Melania Sanders on 01-05-2022 Calcium [Mass/Vol] 8.8 mg/dL 8.5-10.1 [facility] Serum or plasma cardiolipin IgA antibody assay (units/volume)Ordered By: Melania Sanders on 01-05-2022 Cardiolipin IgA Qn < 9 APL U/mL 0-11 [facility] Comment on above: Negative: <12 Indete rminate: 12 - 20 Low-Med Positive: >20 - 80 High Positive: >80 Serum or plasma cholesterol in HDL measurement (mass/volume)Ordered By: Melania Sanders on 01-05-2022 Cholesterol in HDL [Mass/Vol] 33 mg/dL >40 [facility] Comment on above: The drugs N-Acetylcy steine and Metamizole may falsely depress this assay. Reference Range HDL <40 mg/dL Low HDL Cholesterol HDL >or= 60 mg/dL High HDL Cholesterol Serum or plasma cholesterol in VLDL measurement (mass/volume)Ordered By: Melania Sanders on 01-05-2022 Cholesterol in VLDL [Mass/Vol] 27 mg/dL 5-40 [facility] Serum or plasma creatinine m easurement (mass/volume)Ordered By: Melania Sanders on 01-05-2022 Creatinine [Mass/Vol] 1.00 mg/dL 0.70-1.30 [facility] Comment on above: The validity of the calculated GFR & GFRAA in patients over 70 years has not been determined. Clinical correlation is essential. Serum or plasma low density lipoprotein (LDL) cholesterol measurement (mass/volume)Ordered By: Melania Sanders on 01-05-2022 Cholesterol in LDL [Mass/Vol] 89 mg/dL 0-130 [facility] Serum or plasma urea nitroge n measurement (mass/volume)Ordered By: Melania Sanders on 01-05-2022 Urea nitrogen [Mass/Vol] 21 mg/dL 7-18 [facility] Thin prep Papanicolaou smear with manual screeningOrdered By: Melania Sanders on 01-05-2022 Thin prep Papanicolaou smear with manual screening 26 U/L 15-37 [facility] Thin prep Papanicolaou smear with manual screening 9 5-15 [facility] Thin prep Papanicolaou smear with manual screening 45.1 sec 0.0-47.6 [facility] Thin prep Papanicolaou smear with manual screening 1.21 Ratio 0.00-1.34 [facility] Thin prep Papanicolaou smear with manual screening 35.8 sec 0.0-51.9 [facility] Thin prep Papanicolaou smear with manual screening Comment: . [facility] Comment on above: Results are consiste [...] time Coag (PPP) [Time] 18.8 sec 0.0-23.0 [facility] Von Willebrand factor (vWF) ristocetin cofactor actual/normal in platelet poor plasmaOrdered By: Melania Sanders on 01-05-2022 vWf ristocetin cofactor act actual/normal Platelet aggregation (PPP) [Relative time] 85 % 50-200 [facility] Comment on above: Performed at: [address] [id number] Director: Luis Alfaro MD, Phone: [phone] at: CB - [facility] [id number] [place], [place] [id number] Director: Jethro Saenz PhD, Phone: [phone] at: TG - [facility] [id number] [place], [place] [id number] Director: Fabián Wright [facility], Phone: [phone] Culture, urineOrdered By: Ra yoana Sanders on 12-02-2021 Bacteria identified Cx Nom (U) Culture exhibits no growth. [facility] Absolute lymphocyte countOrd ered By: Dr. Phillips on 12-01-2021 Lymphocytes Auto (Unsp spec) [#/Vol] 1.63 10*3/uL 0.83-4.51 [facility] Basophil percentageOrdered B y: Dr. Phillips on 12-01-2021 Basophils/100 WBC (Bld) 0.5 % 0-[address] [facility] Bilirubin [Mass/Vol] 0.50 mg/dL 0.20-1.00 [facility] Comment on above: For patients on eltr ombopag therapy, use of Dimension [place] TBIL is not recommended. Chloride [Moles/Vol] 109 mmol/L 98-107 [facility] Cholesterol [Mass/Vol] 114 mg/dL <200 [facility] Comment on above: <200 mg/dL Desirable 200-240 mg/dL Borderline >240 mg/dL High Risk Eosinophils/100 WBC (Bld) 4.0 % 0-5 [facility] Glucose [Mass/Vol] 96 mg/dL 74-106 [facility] Neutrophils (Bld) [#/Vol] 3.9 10*3/uL 2.0-7.7 [facility] Neutrophils/100 WBC (Bld) 60.4 % 47-70 [facility] Potassium [Moles/Vol] 4.2 mmol/L 3.5-5.1 [facility] Protein [Mass/Vol] 6.8 g/dL 6.4-8.2 [facility] Sodium [Moles/Vol] 142 mmol/L 136-145 [facility] Triglyceride [Mass/Vol] 115 mg/dL <[address] [facility] Comment on above: The drugs N-Acetylcy steine and Metamizole may falsely depress this assay.Serum Triglycerides Reference Interval Normal <150 mg/dL Borderline high 150 - 199 mg/dL High 200 - 499 mg/dL Very High > or = 500 mg/dL WBC (Bld) [#/Vol] 6.5 10*3/uL 4.4-11.0 [facility] Blood erythrocytes count (nu mber/volume)Ordered By: Dr. Phillips on 12-01-2021 RBC (Bld) [#/Vol] 5.43 10*6/uL 4.6-6.2 [facility] Blood hemoglobin measurement (mass/volume)Ordered By: Dr. Phillips on 12-01-2021 Hemoglobin (Bld) [Mass/Vol] 15.4 g/dL 13.0-16.5 [facility] Blood lymphocytes/100 leukoc ytesOrdered By: Dr. Phillips on 12-01-2021 Lymphocytes/100 WBC (Bld) 25.1 % 19-41 [facility] Blood monocytes/100 leukocyt esOrdered By: Dr. Phillips on 12-01-2021 Monocytes/100 WBC (Bld) 9.7 % 0-[address] [facility] Blood platelet mean volumeOr dered By: Dr. Phillips on 12-01-2021 Platelet mean volume (Bld) [Entitic vol] 9.7 fL 6.2-12.0 [facility] Determination of erythrocyte mean corpuscular volume (MCV)Ordered By: Dr. Phillips on 12-01-2021 MCV (RBC) [Entitic vol] 84.5 fL 80-[address] [facility] Glucose Glucometer (BldC) [M ass/Vol]Ordered By: Dr. Dunbar on 12-01-2021 Glucose [Mass/Vol] 110 mg/dL 74-106 [facility] Comment on above: MANAGEMENT OF PATIEN T CARE PER NURSING PROTOCOL Hematocrit Auto (Bld) [Volum e fraction]Ordered By: Dr. Phillips on 12-01-2021 Hematocrit (Bld) [Volume fraction] 45.9 % 40-54 [facility] Laboratory - Chemistry and C hemistry - challengeOrdered By: Dr. Phillips on 12-01-2021 ALP [Catalytic activity/Vol] 49 U/L 45-117 [facility] ALT [Catalytic activity/Vol] 12 U/L 16-61 [facility] CO2 [Moles/Vol] 27.0 mmol/L 21.0-32.0 [facility] Globulin (S) [Mass/Vol] 3.3 g/dL 2.2-4.[address] [facility] Urea nitrogen/Creatinine [Mass ratio] 17.5 mg/mg 10-20 [facility] Laboratory - Hematology and Cell countsOrdered By: Dr. Phillips on 12-01-2021 Erythrocyte distribution width (RBC) [Entitic vol] 38.3 fL 35.1-43.9 [facility] Erythrocyte distribution width (RBC) [Ratio] 12.6 % 11.6-14.6 [facility] Immature granulocytes/100 WBC (Bld) 0.300 % 0.0-0.9 [facility] Comment on above: IG% - Immature Granu locytes (promyelocytes, myelocytes and metamyelocytes) > 1% indicates that a LEFT SHIFT is Present. MCH (RBC) [Entitic mass] 28.4 pg 27.0-32.0 [facility] Nucleated RBC/100 WBC (Bld) [Ratio] 0 % 0-5 [facility] MCHC Auto (RBC) [Mass/Vol]Or dered By: Dr. Phillips on 12-01-2021 MCHC (RBC) [Mass/Vol] 33.6 g/dL 32-36 [facility] No Panel InformationOrdered By: Dr. Phillips on 12-01-2021 Estimated Creatinine Clearance Calc 96.54 ml/min [facility] Estimated GFR (MDRD) Amer 110 mL/min >60 [facility] Comment on above: GFR Calc Estimated GFR (MDRD) Non-Af Amer 91 mL/min >60 [facility] Comment on above: Non- GFR Calc Thyroid Stimulating Hormone (TSH) 1.40 uIU/mL 0.358-3.74 [facility] Platelets bldOrdered By: Dr. Phillips on 12-01-2021 Platelets (Bld) [#/Vol] 167 10*3/uL 150-450 [facility] Serum or plasma albumin noy urement (mass/volume)Ordered By: Dr. Phillips on 12-01-2021 Albumin [Mass/Vol] 3.5 g/dL 3.2-5.0 [facility] Serum or plasma albumin/glob ulin mass ratioOrdered By: Dr. Phillips on 12-01-2021 Albumin/Globulin [Mass ratio] 1.1 {ratio} 0.9-2.4 [facility] Serum or plasma calcium noy urement (mass/volume)Ordered By: Dr. Phillips on 12-01-2021 Calcium [Mass/Vol] 8.5 mg/dL 8.5-10.1 [facility] Serum or plasma cholesterol in HDL measurement (mass/volume)Ordered By: Dr. Phillips on 12-01-2021 Cholesterol in HDL [Mass/Vol] 29 mg/dL >40 [facility] Comment on above: The drugs N-Acetylcy steine and Metamizole may falsely depress this assay. Reference Range HDL <40 mg/dL Low HDL Cholesterol HDL >or= 60 mg/dL High HDL Cholesterol Serum or plasma cholesterol in VLDL measurement (mass/volume)Ordered By: Dr. Phillips on 12-01-2021 Cholesterol in VLDL [Mass/Vol] 23 mg/dL 5-40 [facility] Serum or plasma creatinine m easurement (mass/volume)Ordered By: Dr. Phillips on 12-01-2021 Creatinine [Mass/Vol] 0.91 mg/dL 0.70-1.30 [facility] Comment on above: The validity of the calculated GFR & GFRAA in patients over 70 years has not been determined. Clinical correlation is essential. Serum or plasma low density lipoprotein (LDL) cholesterol measurement (mass/volume)Ordered By: Dr. Phillips on 12-01-2021 Cholesterol in LDL [Mass/Vol] 62 mg/dL 0-130 [facility] Serum or plasma urea nitroge n measurement (mass/volume)Ordered By: Dr. Phillips on 12-01-2021 Urea nitrogen [Mass/Vol] 16 mg/dL 7-18 [facility] Thin prep Papanicolaou smear with manual screeningOrdered By: Dr. Phillips on 12-01-2021 Thin prep Papanicolaou smear with manual screening 14 U/L 15-37 [facility] Thin prep Papanicolaou smear with manual screening 6 5-15 [facility] Whole blood hemoglobin A1c/t otal hemoglobin ratio (mass fraction)Ordered By: Dr. Phillips on 12-01-2021 HbA1c (Bld) [Mass fraction] 6.0 % 3.8-5.6 [facility] Comment on above: Normal < 5.7 % Predi abetic 5.7 - 6.4 % Diabetic >or= 6.5 % Please note range changes. Absolute lymphocyte counton 11-30-2021 Lymphocytes Auto (Unsp spec) [#/Vol] 1.80 10*3/uL 0.83-4.51 [facility] Work Phone: Basophil percentageon 2021 Basophils/100 WBC (Bld) 0.7 % 0-[address] [facility] Work Phone: Chloride [Moles/Vol] 107 mmol/L 98-107 [facility] Work Phone: Eosinophils/100 WBC (Bld) 2.7 % 0-5 [facility] Work Phone: [phone] Glucose [Mass/Vol] 165 mg/dL 74-106 [facility] Work Phone: Comment on above: Fasting Glucose resu lt greater than or equal to 126 mg/dL suggests DIABETES MELLITUS per A.D.A. criteria. Neutrophils (Bld) [#/Vol] 5.3 10*3/uL 2.0-7.7 [facility] Work Phone: Neutrophils/100 WBC (Bld) 65.0 % 47-70 [facility] Work Phone: Potassium [Moles/Vol] 3.8 mmol/L 3.5-5.1 [facility] Work Phone: Comment on above: Slight Hemolysis, Re sult may be falsely increased. Sodium [Moles/Vol] 141 mmol/L 136-145 [facility] Work Phone: WBC (Bld) [#/Vol] 8.2 10*3/uL 4.4-11.0 [facility] Work Phone: Basophil percentageOrdered B y: Melania McGoron on 11-30-2021 Basophil percentage 0 SEEN /hpf 0-5 [facility] Bilirubin Test strip Ql (U)O rdered By: Melania Sanders on 11-30-2021 Bilirubin Ql (U) Negative Negative [facility] Blood erythrocytes count (nu mber/volume)on 11-30-2021 RBC (Bld) [#/Vol] 5.60 10*6/uL 4.6-6.2 [facility] Work Phone: Blood hemoglobin measurement (mass/volume)on 11-30-2021 Hemoglobin (Bld) [Mass/Vol] 15.8 g/dL 13.0-16.5 [facility] Work Phone: Blood lymphocytes/100 leukoc yteson 11-30-2021 Lymphocytes/100 WBC (Bld) 22.1 % 19-41 [facility] Work Phone: Blood monocytes/100 leukocyt eson 11-30-2021 Monocytes/100 WBC (Bld) 9.3 % 0-[address] [facility] Work Phone: Blood platelet mean volumeon 11-30-2021 Platelet mean volume (Bld) [Entitic vol] 9.7 fL 6.2-12.0 [facility] Work Phone: Determination of erythrocyte mean corpuscular volume (MCV)on 11-30-2021 MCV (RBC) [Entitic vol] 85.4 fL 80-[address] [facility] Work Phone: Glucose Glucometer (BldC) [M ass/Vol]on 11-30-2021 Glucose [Mass/Vol] 182 mg/dL 74-106 [facility] Work Phone: Comment on above: MANAGEMENT OF PATIEN T CARE PER NURSING PROTOCOL Hematocrit Auto (Bld) [Volum e fraction]on 11-30-2021 Hematocrit (Bld) [Volume fraction] 47.8 % 40-54 [facility] Work Phone: INR in Blood by Coagulation assayOrdered By: Dr. Concepcion on 11-30-2021 INR Coag (Bld) [Relative time] 1.0 {INR} [facility] Ketones Test strip Ql (U)Ord ered By: Melania Sanders on 11-30-2021 Ketones Ql (U) 5 mg/dl Negative [facility] Laboratory - Chemistry and C hemistry - challengeon 11-30-2021 CO2 [Moles/Vol] 28.0 mmol/L 21.0-32.0 [facility] Work Phone: Urea nitrogen/Creatinine [Mass ratio] 19.7 mg/mg 10-20 [facility] Work Phone: Laboratory - Chemistry and C hemistry - challengeOrdered By: Dr. Phillips on 11-30-2021 Magnesium [Mass/Vol] 2.3 mg/dL 1.6-2.6 [facility] Comment on above: Slight Hemolysis, Re sult may be falsely increased. Laboratory - CoagulationOrde red By: Dr. Concepcion on 11-30-2021 aPTT Coag (Bld) [Time] 27.9 s 24.1-36.2 [facility] PT Coag (PPP) [Time] 13.3 s 11.7-14.9 [facility] Laboratory - Hematology and Cell countson 11-30-2021 Erythrocyte distribution width (RBC) [Entitic vol] 38.6 fL 35.1-43.9 [facility] Work Phone: Erythrocyte distribution width (RBC) [Ratio] 12.6 % 11.6-14.6 [facility] Work Phone: [phone] Immature granulocytes/100 WBC (Bld) 0.200 % 0.0-0.9 [facility] Work Phone: Comment on above: IG% - Immature Granu locytes (promyelocytes, myelocytes and metamyelocytes) > 1% indicates that a LEFT SHIFT is Present. MCH (RBC) [Entitic mass] 28.2 pg 27.0-32.0 [facility] Work Phone: Nucleated RBC/100 WBC (Bld) [Ratio] 0 % 0-5 [facility] Work Phone: MCHC Auto (RBC) [Mass/Vol]on 11-30-2021 MCHC (RBC) [Mass/Vol] 33.1 g/dL 32-36 [facility] Work Phone: Mucus LM Ql (Urine sed)Order ed By: Melania Sanders on 11-30-2021 Mucus Ql (Urine sed) 0 SEEN /hpf [facility] Nitrite Test strip Ql (U)Ord ered By: Melania Sanders on 11-30-2021 Nitrite Ql (U) Negative Negative [facility] No Panel Informationon 11-30 Estimated Creatinine Clearance Calc 75.09 ml/min [facility] Work Phone: Estimated GFR (MDRD) Amer 83 mL/min >60 [facility] Work Phone: Comment on above: GFR Calc Estimated GFR (MDRD) Non-Af Amer 68 mL/min >60 [facility] Work Phone: Comment on above: Non- GFR Calc No Panel InformationOrdered By: Dr. Concepcion on 11-30-2021 Troponin I High Sensitivity 10 pg/mL 3.0-78.0 [facility] Comment on above: Please Note: New [place] t Units and Gender Specific Reference Ranges. For more information see Policy Stat Procedure [place] High Sensitivity Troponin (TNIH) and attachments. Platelets bldon 11-30-2021 Platelets (Bld) [#/Vol] 194 10*3/uL 150-450 [facility] Work Phone: Protein Test strip Ql (U)Ord ered By: Melania Sanders on 11-30-2021 Protein Ql (U) Negative Negative [facility] Serum or plasma calcium noy urement (mass/volume)on 11-30-2021 Calcium [Mass/Vol] 9.3 mg/dL 8.5-10.1 [facility] Work Phone: Serum or plasma creatinine m easurement (mass/volume)on 11-30-2021 Creatinine [Mass/Vol] 1.17 mg/dL 0.70-1.30 [facility] Work Phone: Comment on above: The validity of the calculated GFR & GFRAA in patients over 70 years has not been determined. Clinical correlation is essential. Serum or plasma urea nitroge n measurement (mass/volume)on 11-30-2021 Urea nitrogen [Mass/Vol] 23 mg/dL 7-18 [facility] Work Phone: Squamous epithelial cells de tection in urine sediment by light microscopyOrdered By: Melania Sanders on 11-30-2021 Epithelial cells.squamous LM Ql (Urine sed) 0 SEEN /hpf 0-5 [facility] Thin prep Papanicolaou smear with manual screeningon 11-30-2021 Thin prep Papanicolaou smear with manual screening 6 5-15 [facility] Work Phone: Urine blood detectionOrdered By: Melania Sanders on 11-30-2021 RBC Ql (U) Negative Negative [facility] RBC Ql (U) 0 SEEN /hpf 0-5 [facility] Urine clarityOrdered By: Dustin Sanders on 11-30-2021 Clarity (U) Clear Clear [facility] Urine color determinationOrd ered By: Melania Sanders on 11-30-2021 Color (U) Yellow Yellow [facility] Urine glucose detectionOrder ed By: Melanai Sanders on 11-30-2021 Glucose Ql (U) 1000 mg/dl Normal [facility] Urine leukocyte esterase det ection by dipstickOrdered By: Melania Sanders on 11-30-2021 Leukocyte esterase Test strip Ql (U) Negative Negative [facility] Urine pHOrdered By: Melania Sanders on 11-30-2021 pH (U) 6.5 [pH] 5.0 - 8.0 [facility] Urine sediment bacteria coun t by microscopy (number/high power field)Ordered By: Melania Sanders on 11-30-2021 Bacteria LM.HPF (Urine sed) [#/Area] 0 /[HPF] None Seen [facility] Urine specific gravity measu rementOrdered By: Melania Sanders on 11-30-2021 Specific gravity (U) [Rel density] 1.010 1.002-1.03 0 [facility] Urobilinogen Auto test strip Ql (U)Ordered By: Melania Sanders on 11-30-2021 Urobilinogen Ql (U) Normal mg/dl Normal [facility] Absolute lymphocyte counton 07-25-2022 Lymphocytes Auto (Unsp spec) [#/Vol] 1.39 10*3/uL 0.83-4.51 [facility] Work Phone: Basophil percentageon 2021 Basophils/100 WBC (Bld) 0.5 % 0-[address] [facility] Work Phone: Bilirubin [Mass/Vol] 0.60 mg/dL 0.20-1.00 [facility] Work Phone: Comment on above: For patients on eltr ombopag therapy, use of Dimension [place] TBIL is not recommended. Chloride [Moles/Vol] 107 mmol/L 98-107 [facility] Work Phone: Cholesterol [Mass/Vol] 174 mg/dL <200 [facility] Work Phone: Comment on above: <200 mg/dL Desirable 200-240 mg/dL Borderline >240 mg/dL High Risk Eosinophils/100 WBC (Bld) 2.3 % 0-5 [facility] Work Phone: Glucose [Mass/Vol] 107 mg/dL 74-106 [facility] Work Phone: Comment on above: Fasting Glucose resu lt from 100 to 125 mg/dL suggests IMPAIRED HOMEOSTASIS per A.D.A. criteria. Neutrophils (Bld) [#/Vol] 4.3 10*3/uL 2.0-7.7 [facility] Work Phone: Neutrophils/100 WBC (Bld) 66.5 % 47-70 [facility] Work Phone: Potassium [Moles/Vol] 4.1 mmol/L 3.5-5.1 [facility] Work Phone: Protein [Mass/Vol] 7.6 g/dL 6.4-8.2 [facility] Work Phone: Sodium [Moles/Vol] 139 mmol/L 136-145 [facility] Work Phone: Triglyceride [Mass/Vol] 156 mg/dL <[address] [facility] Work Phone: Comment on above: The drugs N-Acetylcy steine and Metamizole may falsely depress this assay.Serum Triglycerides Reference Interval Normal <150 mg/dL Borderline high 150 - 199 mg/dL High 200 - 499 mg/dL Very High > or = 500 mg/dL WBC (Bld) [#/Vol] 6.5 10*3/uL 4.4-11.0 [facility] Work Phone: Blood erythrocytes count (nu mber/volume)on 09-20-2021 RBC (Bld) [#/Vol] 5.58 10*6/uL 4.6-6.2 [facility] Work Phone: Blood hemoglobin measurement (mass/volume)on 09-20-2021 Hemoglobin (Bld) [Mass/Vol] 16.3 g/dL 13.0-16.5 [facility] Work Phone: Blood lymphocytes/100 leukoc yteson 09-20-2021 Lymphocytes/100 WBC (Bld) 21.4 % 19-41 [facility] Work Phone: Blood monocytes/100 leukocyt eson 09-20-2021 Monocytes/100 WBC (Bld) 9.1 % 0-[address] [facility] Work Phone: Blood platelet mean volumeon 09-20-2021 Platelet mean volume (Bld) [Entitic vol] 10.0 fL 6.2-12.0 [facility] Work Phone: Determination of erythrocyte mean corpuscular volume (MCV)on 09-20-2021 MCV (RBC) [Entitic vol] 88.4 fL 80-[address] [facility] Work Phone: Hematocrit Auto (Bld) [Volum e fraction]on 09-20-2021 Hematocrit (Bld) [Volume fraction] 49.3 % 40-54 [facility] Work Phone: Laboratory - Chemistry and C hemistry - challengeon 09-20-2021 ALP [Catalytic activity/Vol] 51 U/L 45-117 [facility] Work Phone: ALT [Catalytic activity/Vol] 30 U/L 16-61 [facility] Work Phone: CO2 [Moles/Vol] 26.0 mmol/L 21.0-32.0 [facility] Work Phone: Globulin (S) [Mass/Vol] 3.4 g/dL 2.2-4.[address] [facility] Work Phone: Urea nitrogen/Creatinine [Mass ratio] 15.3 mg/mg 10-20 [facility] Work Phone: Laboratory - Hematology and Cell countson 09-20-2021 Erythrocyte distribution width (RBC) [Entitic vol] 39.9 fL 35.1-43.9 [facility] Work Phone: Erythrocyte distribution width (RBC) [Ratio] 12.2 % 11.6-14.6 [facility] Work Phone: Immature granulocytes/100 WBC (Bld) 0.200 % 0.0-0.9 [facility] Work Phone: Comment on above: IG% - Immature Granu locytes (promyelocytes, myelocytes and metamyelocytes) > 1% indicates that a LEFT SHIFT is Present. MCH (RBC) [Entitic mass] 29.2 pg 27.0-32.0 [facility] Work Phone: Nucleated RBC/100 WBC (Bld) [Ratio] 0 % 0-5 [facility] Work Phone: MCHC Auto (RBC) [Mass/Vol]on 09-20-2021 MCHC (RBC) [Mass/Vol] 33.1 g/dL 32-36 [facility] Work Phone: No Panel Informationon 09-20 Estimated GFR (MDRD) Amer 73 mL/min >60 [facility] Work Phone: Comment on above: GFR Calc Estimated GFR (MDRD) Non-Af Amer 60 mL/min >60 [facility] Work Phone: Comment on above: Non- GFR Calc Platelets bldon 09-20-2021 Platelets (Bld) [#/Vol] 166 10*3/uL 150-450 [facility] Work Phone: Serum or plasma albumin noy urement (mass/volume)on 09-20-2021 Albumin [Mass/Vol] 4.2 g/dL 3.2-5.0 [facility] Work Phone: Serum or plasma albumin/glob ulin mass ratioon 09-20-2021 Albumin/Globulin [Mass ratio] 1.2 {ratio} 0.9-2.4 [facility] Work Phone: Serum or plasma calcium noy urement (mass/volume)on 09-20-2021 Calcium [Mass/Vol] 9.0 mg/dL 8.5-10.1 [facility] Work Phone: Serum or plasma cholesterol in HDL measurement (mass/volume)on 09-20-2021 Cholesterol in HDL [Mass/Vol] 30 mg/dL >40 [facility] Work Phone: Comment on above: The drugs N-Acetylcy steine and Metamizole may falsely depress this assay. Reference Range HDL <40 mg/dL Low HDL Cholesterol HDL >or= 60 mg/dL High HDL Cholesterol Serum or plasma cholesterol in VLDL measurement (mass/volume)on 09-20-2021 Cholesterol in VLDL [Mass/Vol] 31 mg/dL 5-40 [facility] Work Phone: Serum or plasma creatinine m easurement (mass/volume)on 09-20-2021 Creatinine [Mass/Vol] 1.31 mg/dL 0.70-1.30 [facility] Work Phone: Comment on above: The validity of the calculated GFR & GFRAA in patients over 70 years has not been determined. Clinical correlation is essential. Serum or plasma low density lipoprotein (LDL) cholesterol measurement (mass/volume)on 09-20-2021 Cholesterol in LDL [Mass/Vol] 113 mg/dL 0-130 [facility] Work Phone: Serum or plasma urea nitroge n measurement (mass/volume)on 09-20-2021 Urea nitrogen [Mass/Vol] 20 mg/dL 7-18 [facility] Work Phone: Thin prep Papanicolaou smear with manual screeningon 09-20-2021 Thin prep Papanicolaou smear with manual screening 20 U/L 15-37 [facility] Work Phone: Thin prep Papanicolaou smear with manual screening 6 5-15 [facility] Work Phone: Whole blood hemoglobin A1c/t otal hemoglobin ratio (mass fraction)on 09-20-2021 HbA1c (Bld) [Mass fraction] 5.6 % 3.8-5.6 [facility] Work Phone: Comment on above: Normal < 5.7 % Predi abetic 5.7 - 6.4 % Diabetic >or= 6.5 % Please note range changes. Absolute lymphocyte counton 08-04-2021 Lymphocytes Auto (Unsp spec) [#/Vol] 1.49 10*3/uL 0.83-4.51 [facility] Work Phone: Basophil percentageon 2021 Basophils/100 WBC (Bld) 0.5 % 0-[address] [facility] Work Phone: Bilirubin [Mass/Vol] 0.60 mg/dL 0.20-1.00 [facility] Work Phone: Comment on above: For patients on eltr ombopag therapy, use of Dimension [place] TBIL is not recommended. Chloride [Moles/Vol] 107 mmol/L 98-107 [facility] Work Phone: Eosinophils/100 WBC (Bld) 2.3 % 0-5 [facility] Work Phone: Glucose [Mass/Vol] 103 mg/dL 74-106 [facility] Work Phone: Comment on above: Fasting Glucose resu lt from 100 to 125 mg/dL suggests IMPAIRED HOMEOSTASIS per A.D.A. criteria. Neutrophils (Bld) [#/Vol] 6.6 10*3/uL 2.0-7.7 [facility] Work Phone: Neutrophils/100 WBC (Bld) 71.7 % 47-70 [facility] Work Phone: Potassium [Moles/Vol] 3.5 mmol/L 3.5-5.1 [facility] Work Phone: Protein [Mass/Vol] 7.3 g/dL 6.4-8.2 [facility] Work Phone: [phone] Sodium [Moles/Vol] 139 mmol/L 136-145 [facility] Work Phone: [phone] WBC (Bld) [#/Vol] 9.2 10*3/uL 4.4-11.0 [facility] Work Phone: Blood erythrocytes count (nu mber/volume)on 08-04-2021 RBC (Bld) [#/Vol] 5.43 10*6/uL 4.6-6.2 [facility] Work [facility]: Blood hemoglobin measurement (mass/volume)on 08-04-2021 Hemoglobin (Bld) [Mass/Vol] 16.0 g/dL 13.0-16.5 [facility] Work Phone: Blood lymphocytes/100 leukoc yteson 08-04-2021 Lymphocytes/100 WBC (Bld) 16.2 % 19-41 [facility] Work Phone: [phone] Blood monocytes/100 leukocyt eson 08-04-2021 Monocytes/100 WBC (Bld) 9.1 % 0-[address] [facility] Work Phone: Blood platelet mean volumeon 08-04-2021 Platelet mean volume (Bld) [Entitic vol] 9.7 fL 6.2-12.0 [facility] Work Phone: Determination of erythrocyte mean corpuscular volume (MCV)on 08-04-2021 MCV (RBC) [Entitic vol] 85.6 fL 80-[address] [facility] Work Phone: Direct bilirubinon 06-08-202 2 Bilirubin.direct [Mass/Vol] 0.18 mg/dL 0.00-0.30 [facility] Work Phone: Hematocrit Auto (Bld) [Volum e fraction]on 08-04-2021 Hematocrit (Bld) [Volume fraction] 46.5 % 40-54 [facility] Work Phone: Laboratory - Chemistry and C hemistry - challengeon 08-04-2021 ALP [Catalytic activity/Vol] 53 U/L 45-117 [facility] Work Phone: ALT [Catalytic activity/Vol] 52 U/L 16-61 [facility] Work Phone: CO2 [Moles/Vol] 26.0 mmol/L 21.0-32.0 [facility] Work Phone: Globulin (S) [Mass/Vol] 3.3 g/dL 2.2-4.[address] [facility] Work Phone: Lipase [Catalytic activity/Vol] 106 U/L 73-393 [facility] Work Phone: Urea nitrogen/Creatinine [Mass ratio] 12.5 mg/mg 10-20 [facility] Work Phone: Laboratory - Hematology and Cell countson 08-04-2021 Erythrocyte distribution width (RBC) [Entitic vol] 39.0 fL 35.1-43.9 [facility] Work Phone: Erythrocyte distribution width (RBC) [Ratio] 12.7 % 11.6-14.6 [facility] Work Phone: Immature granulocytes/100 WBC (Bld) 0.200 % 0.0-0.9 [facility] Work Phone: Comment on above: IG% - Immature Granu locytes (promyelocytes, myelocytes and metamyelocytes) > 1% indicates that a LEFT SHIFT is Present. MCH (RBC) [Entitic mass] 29.5 pg 27.0-32.0 [facility] Work Phone: Nucleated RBC/100 WBC (Bld) [Ratio] 0 % 0-5 [facility] Work Phone: MCHC Auto (RBC) [Mass/Vol]on 08-04-2021 MCHC (RBC) [Mass/Vol] 34.4 g/dL 32-36 [facility] Work Phone: No Panel Informationon 08-04 Estimated Creatinine Clearance Calc 73.21 ml/min [facility] Work Phone: Estimated GFR (MDRD) Amer 81 mL/min >60 [facility] Work Phone: Comment on above: GFR Calc Estimated GFR (MDRD) Non-Af Amer 67 mL/min >60 [facility] Work Phone: Comment on above: Non- GFR Calc Troponin I High Sensitivity 12 pg/mL 3.0-78.0 [facility] Work Phone: Comment on above: Please Note: New Annel t Units and Gender Specific Reference Ranges. For more information see Policy Stat Procedure [place] High Sensitivity Troponin (TNIH) and attachments. Platelets bldon 08-04-2021 Platelets (Bld) [#/Vol] 174 10*3/uL 150-450 [facility] Work Phone: Serum or plasma albumin noy urement (mass/volume)on 08-04-2021 Albumin [Mass/Vol] 4.0 g/dL 3.2-5.0 [facility] Work Phone: Serum or plasma calcium noy urement (mass/volume)on 08-04-2021 Calcium [Mass/Vol] 9.1 mg/dL 8.5-10.1 [facility] Work Phone: Serum or plasma creatinine m easurement (mass/volume)on 08-04-2021 Creatinine [Mass/Vol] 1.20 mg/dL 0.70-1.30 [facility] Work Phone: Comment on above: The validity of the calculated GFR & GFRAA in patients over 70 years has not been determined. Clinical correlation is essential. Serum or plasma urea nitroge n measurement (mass/volume)on 08-04-2021 Urea nitrogen [Mass/Vol] 15 mg/dL 7-18 [facility] Work Phone: Thin prep Papanicolaou smear with manual screeningon 08-04-2021 Thin prep Papanicolaou smear with manual screening 34 U/L 15-37 [facility] Work Phone: Thin prep Papanicolaou smear with manual screening 6 5-15 [facility] Work Phone: Absolute lymphocyte counton 07-09-2021 Lymphocytes Auto (Unsp spec) [#/Vol] 1.65 10*3/uL 0.83-4.51 [facility] Work Phone: Basophil percentageon 2021 Basophils/100 WBC (Bld) 0.4 % 0-[address] [facility] Work Phone: Bilirubin [Mass/Vol] 0.70 mg/dL 0.20-1.00 [facility] Work Phone: Comment on above: Slight Lipemia, Resu lt may be falsely increased. For patients on eltrombopag therapy, use of Dimension [place] TBIL is not recommended. Chloride [Moles/Vol] 105 mmol/L 98-107 [facility] Work Phone: Cholesterol [Mass/Vol] 131 mg/dL <200 [facility] Work Phone: Comment on above: Slight Lipemia, Resu lt may be falsely increased. <200 mg/dL Desirable 200-240 mg/dL Borderline >240 mg/dL High Risk Eosinophils/100 WBC (Bld) 3.4 % 0-5 [facility] Work Phone: Glucose [Mass/Vol] 188 mg/dL 74-106 [facility] Work Phone: Comment on above: Slight Lipemia, Resu lt may be falsely increased.Fasting Glucose result greater than or equal to 126 mg/dL suggests DIABETES MELLITUS per A.D.A. criteria. Neutrophils (Bld) [#/Vol] 4.7 10*3/uL 2.0-7.7 [facility] Work Phone: Neutrophils/100 WBC (Bld) 62.8 % 47-70 [facility] Work Phone: Potassium [Moles/Vol] 4.2 mmol/L 3.5-5.1 [facility] Work Phone: Comment on above: Slight Hemolysis, Re sult may be falsely increased.-Slight Lipemia, Result may be falsely increased. Protein [Mass/Vol] 6.8 g/dL 6.4-8.2 [facility] Work Phone: Sodium [Moles/Vol] 136 mmol/L 136-145 [facility] Work Phone: Triglyceride [Mass/Vol] 983 mg/dL <[address] [facility] Work Phone: Comment on above: [...] mg/dL WBC (Bld) [#/Vol] 7.5 10*3/uL 4.4-11.0 [facility] Work Phone: Blood erythrocytes count (nu mber/volume)on 07-09-2021 RBC (Bld) [#/Vol] 5.51 10*6/uL 4.6-6.2 [facility] Work Phone: Blood hemoglobin measurement (mass/volume)on 07-09-2021 Hemoglobin (Bld) [Mass/Vol] 16.6 g/dL 13.0-16.5 [facility] Work Phone: Blood lymphocytes/100 leukoc yteson 07-09-2021 Lymphocytes/100 WBC (Bld) 22.1 % 19-41 [facility] Work Phone: Blood monocytes/100 leukocyt eson 07-09-2021 Monocytes/100 WBC (Bld) 10.9 % 0-[address] [facility] Work Phone: Blood platelet mean volumeon 07-09-2021 Platelet mean volume (Bld) [Entitic vol] 10.0 fL 6.2-12.0 [facility] Work Phone: Determination of erythrocyte mean corpuscular volume (MCV)on 07-09-2021 MCV (RBC) [Entitic vol] 87.7 fL 80-[address] [facility] Work Phone: Hematocrit Auto (Bld) [Volum e fraction]on 07-09-2021 Hematocrit (Bld) [Volume fraction] 48.3 % 40-54 [facility] Work Phone: Laboratory - Chemistry and C hemistry - challengeon 07-09-2021 ALP [Catalytic activity/Vol] 80 U/L 45-117 [facility] Work Phone: ALT [Catalytic activity/Vol] 41 U/L 16-61 [facility] Work Phone: CO2 [Moles/Vol] 23.0 mmol/L 21.0-32.0 [facility] Work Phone: Comment on above: Slight Lipemia, Resu lt may be falsely increased. Globulin (S) [Mass/Vol] 3.0 g/dL 2.2-4.[address] [facility] Work Phone: Urea nitrogen/Creatinine [Mass ratio] 19.8 mg/mg 10-20 [facility] Work Phone: Laboratory - Hematology and Cell countson 07-09-2021 Erythrocyte distribution width (RBC) [Entitic vol] 39.9 fL 35.1-43.9 [facility] Work Phone: Erythrocyte distribution width (RBC) [Ratio] 12.5 % 11.6-14.6 [facility] Work Phone: Immature granulocytes/100 WBC (Bld) 0.400 % 0.0-0.9 [facility] Work Phone: Comment on above: IG% - Immature Granu locytes (promyelocytes, myelocytes and metamyelocytes) > 1% indicates that a LEFT SHIFT is Present. MCH (RBC) [Entitic mass] 30.1 pg 27.0-32.0 [facility] Work Phone: Nucleated RBC/100 WBC (Bld) [Ratio] 0 % 0-5 [facility] Work Phone: MCHC Auto (RBC) [Mass/Vol]on 07-09-2021 MCHC (RBC) [Mass/Vol] 34.4 g/dL 32-36 [facility] Work Phone: No Panel Informationon 07-09 Estimated GFR (MDRD) Amer 93 mL/min >60 [facility] Work Phone: Comment on above: GFR Calc Estimated GFR (MDRD) Non-Af Amer 77 mL/min >60 [facility] Work Phone: Comment on above: Non- GFR Calc Thyroid Stimulating Hormone (TSH) 1.29 uIU/mL 0.358-3.74 [facility] Work Phone: Platelets bldon 07-09-2021 Platelets (Bld) [#/Vol] 174 10*3/uL 150-450 [facility] Work Phone: Serum or plasma albumin noy urement (mass/volume)on 07-09-2021 Albumin [Mass/Vol] 3.8 g/dL 3.2-5.0 [facility] Work Phone: Serum or plasma albumin/glob ulin mass ratioon 07-09-2021 Albumin/Globulin [Mass ratio] 1.3 {ratio} 0.9-2.4 [facility] Work Phone: Serum or plasma calcium noy urement (mass/volume)on 07-09-2021 Calcium [Mass/Vol] 8.1 mg/dL 8.5-10.1 [facility] Work Phone: Comment on above: Slight Lipemia, Resu lt may be falsely increased. Serum or plasma cholesterol in HDL measurement (mass/volume)on 07-09-2021 Cholesterol in HDL [Mass/Vol] 19 mg/dL >40 [facility] Work Phone: Comment on above: The drugs N-Acetylcy steine and Metamizole may falsely depress this assay. Reference Range HDL <40 mg/dL Low HDL Cholesterol HDL >or= 60 mg/dL High HDL Cholesterol Serum or plasma cholesterol in VLDL measurement (mass/volume)on 07-09-2021 Cholesterol in VLDL [Mass/Vol] [facility] Work Phone: Comment on above: Test not performed Serum or plasma creatinine m easurement (mass/volume)on 07-09-2021 Creatinine [Mass/Vol] 1.06 mg/dL 0.70-1.30 [facility] Work Phone: Comment on above: Slight Lipemia, Resu lt may be falsely increased.The validity of the calculated GFR & GFRAA in patients over 70 years has not been determined. Clinical correlation is essential. Serum or plasma low density lipoprotein (LDL) cholesterol measurement (mass/volume)on 07-09-2021 Cholesterol in LDL [Mass/Vol] [facility] Work Phone: Comment on above: Test not performed Serum or plasma urea nitroge n measurement (mass/volume)on 07-09-2021 Urea nitrogen [Mass/Vol] 21 mg/dL 7-18 [facility] Work Phone: Thin prep Papanicolaou smear with manual screeningon 07-09-2021 Thin prep Papanicolaou smear with manual screening 27 U/L 15-37 [facility] Work Phone: Thin prep Papanicolaou smear with manual screening 8 5-15 [facility] Work Phone: Whole blood hemoglobin A1c/t otal hemoglobin ratio (mass fraction)on 07-09-2021 HbA1c (Bld) [Mass fraction] 6.8 % 3.8-5.6 [facility] Work Phone: Comment on above: Normal < 5.7 % Predi abetic 5.7 - 6.4 % Diabetic >or= 6.5 % Please note range changes. Basophil percentageon 2021 Chloride [Moles/Vol] 106 mmol/L 98-107 [facility] Work Phone: Glucose [Mass/Vol] 176 mg/dL 74-106 [facility] Work Phone: Comment on above: Fasting Glucose resu lt greater than or equal to 126 mg/dL suggests DIABETES MELLITUS per A.D.A. criteria. Potassium [Moles/Vol] 3.9 mmol/L 3.5-5.1 [facility] Work Phone: Sodium [Moles/Vol] 136 mmol/L 136-145 [facility] Work Phone: Laboratory - Chemistry and C hemistry - challengeon 03-19-2021 CO2 [Moles/Vol] 24.0 mmol/L 21.0-32.0 [facility] Work Phone: Urea nitrogen/Creatinine [Mass ratio] 12.1 mg/mg 10-20 [facility] Work Phone: No Panel Informationon 03-19 Estimated GFR (MDRD) Amer 84 mL/min >60 [facility] Work Phone: Comment on above: GFR Calc Estimated GFR (MDRD) Non-Af Amer 69 mL/min >60 [facility] Work Phone: Comment on above: Non- GFR Calc Serum or plasma calcium noy urement (mass/volume)on 03-19-2021 Calcium [Mass/Vol] 9.2 mg/dL 8.5-10.1 [facility] Work Phone: Serum or plasma creatinine m easurement (mass/volume)on 03-19-2021 Creatinine [Mass/Vol] 1.16 mg/dL 0.70-1.30 [facility] Work Phone: Comment on above: The validity of the calculated GFR & GFRAA in patients over 70 years has not been determined. Clinical correlation is essential. Serum or plasma urea nitroge n measurement (mass/volume)on 03-19-2021 Urea nitrogen [Mass/Vol] 14 mg/dL 7-18 [facility] Work Phone: Thin prep Papanicolaou smear with manual screeningon 03-19-2021 Thin prep Papanicolaou smear with manual screening 6 5-15 [facility] Work Phone: CORONAVIRUS 2019 BY PCRon SARS-CoV-2 (COVID-19) RNA GITA+probe Ql (Unsp spec) Not detected Normal Not Detected [facility] Comment on above: Result Comment: . This [...] patient management decisions. Fact sheet for providers: https://www.fda.gov/media/782635/download Fact sheet for patients: https://www.fda.gov/media/186280/download This test has received FDA Emergency Use Authorization (EUA) and has been verified by [facility] ([facility]). This test is only authorized for the duration of time that circumstances exist to justify the authorization of the emergency use of in vitro diagnostic tests for the detection of SARS-CoV-2 virus and/or diagnosis of COVID-19 infection under section 564(b)(1) of the Act, 21 U.S.C. 360bbb-3(b)(1), unless the authorization is terminated or revoked sooner. [facility] is certified under CLIA-88 as qualified to perform high complexity testing. Testing is performed in the [facility] laboratories located at [address] [place] [address]. Performed By: #### C OV19 #### [place] [address] Covid 19 Resultson 07-30-202 1 SARS-CoV-2 (COVID-19) RNA GITA+probe Ql (Unsp spec) [...] You may also be contacted by the [facility] to see if any of your close [...] or Naproxen (Aleve) can also be used. Acvc-qmm-jglrxrt cough and cold medicines can be used according to the instructions on the package. Some hsiy-xor-ckzvbnv medicines also contain acetaminophen. Make sure you [...] water are not available, use alcohol-based hand gas turbine assembler. Avoid touching your eyes, nose, and mouth [...] 24 stacey (more content not included)... Normal [facility] CORONAVIRUS 2019 BY PCRon Lab Specimen Source Nasal, Nasopharyngeal Normal [facility] Comment on above: Performed By: #### C OV19 #### [facility] [id number] [place] [address] DATE OF SYMPTOM ONSET [YYYYMMDD]? 20200921 Normal [facility] Comment on above: Performed By: #### C OV19 #### [facility] [address] [place], [place] Coronavirus 2019 RNA by PCR, Symptomaticon 09-24-2020 Date and time of symptom onset 20200921 1 [facility] Work Phone: Coronavirus 2019 RNA by PCR, Symptomatic Not detected Normal See Below [facility] Work Phone: Comment on above: [...] make patient management decisions.Fact sheet for providers: https://www.fda.gov/media/327623/downloadFact sheet for patients: https://www.fda.gov/media/569055/downloadThis test has received FDA Emergency Use Authorization (EUA) and has been verified by [facility] ([facility]). This test is only authorized for the duration of time that circumstances exist to justify the authorization of the emergency use of in vitro diagnostic tests for the detection of SARS-CoV-2 virus and/or diagnosis of COVID-19 infection under section 564(b)(1) of the Act, 21 U.S.C. 360bbb-3(b)(1), unless the authorization is terminated or revoked sooner. [facility] is certified under CLIA-88 as qualified to perform high complexity testing. Testing is performed in the [facility] laboratories located at [address] [place] [address]. Office Visit (Internal Medic ine)on 09-23-2020 Follow-up [...] level; BERNICE = N; Sent To: AMMON DRUMMOND ; Last Updated By: Support Your App; 09/23/2020 3:23:54 PM Pharyngitis Start: Amoxicillin 500 MG Oral Capsule; Take 1 capsule twice daily Rx By: Thuy Hannah; Dispense: 10 Days ; #:20 Capsule; Refill: 0; For: Pharyngitis; BERNICE = N; Sent To: [address]; Last Updated By: System, Weight Winser; 09/23/2020 3:23:55 PM Start: predniSONE 10 MG Oral Tablet; TAKE 3 TABLET Daily Rx By: Thuy Hannah; Dispense: 5 Days ; #:15 Tablet; Refill: 0; For: Pharyngitis; BERNICE = N; Sent To: [facility] [address]; Last Updated By: Support Your App; 09/23/2020 3:23:55 PM Patient Discussion/Summary F/U BEFORE COVID TESTING Provider Impressions SCHEDULED FOR [facility] COVID-19 TESTING. INSTRUCTED TO SELF QUARANTINE [...] PM , for a telehealth visit. VIRTUAL: [phone]. Congestion, PRADO, nausea. History of Present IllnessTELEPHONE [...] no zoie (more content not included)... Normal [employer] Tobacco Screening.on 021 Fall risk assessment a) No falls within the last year [facility] Work Phone: Tobacco use status [facility] b) No [facility] Work Phone: Office Visit (Internal Medic ine)on 09-10-2020 Follow-up visit Diagnoses/Problems Assessed BRITTANY on CPAP (327.23,V46.8) (G47.33,Z99.89) Primary Parkinson's disease (332.0) (G20) Primary Parkinson's disease Diverticulosis (562.10) (K57.90) Patient Discussion/Summary F/U 1.5 MONTH CPAP COMPLIANCE SEND CPAP TO DME Provider Impressions PLEASE MONITOR CLOSELY FOR ANY [...] PM , for a telehealth visit. VIRTUAL: [phone]. Cpap not working History of Present IllnessVIRTUAL [...] a) No falls within the last year [facility] Work Phone: Tobacco use status [facility] b) No [facility] Work Phone: Medicare Annual Wellness Vis ishan 06-03-2020 Medicare Annual Wellness Visit *Chief Complaint [...] Parkinson's disease (more content not included)... Normal [employer] Office Visit (Internal Medic ine)on 05-18-2020 Follow-up [...] illicit drugs (more content not included)... [facility] BY PCRon SARS-CoV-2 (COVID-19) RNA GITA+probe Ql (Unsp spec) Not detected Normal Not Detected [facility] Comment on above: Result Comment: This assay [...] patient management decisions. Fact sheet for providers: https://www.fda.gov/media/969690/download Fact sheet for patients: https://www.fda.gov/media/493488/download This test has received FDA Emergency Use Authorization (EUA) and has been verified by [facility] ([facility]). This test is only authorized for the duration of time that circumstances exist to justify the authorization of the emergency use of in vitro diagnostic tests for the detection of SARS-CoV-2 virus and/or diagnosis of COVID-19 infection under section 564(b)(1) of the Act, 21 U.S.C. 360bbb-3(b)(1), unless the authorization is terminated or revoked sooner. [facility] is certified under CLIA-88 as qualified to perform high complexity testing. Testing is performed in the [facility] laboratories located at [address] [place] [address]. Performed By: #### C OV19 #### [facility] [address] [facility] [place] [address] CORONAVIRUS 2019 BY PCRon Lab Specimen Source Nasal, Nasopharyngeal Normal [facility] Comment on above: Performed By: #### C OV19 #### [facility] [address] [facility] [place] [id number] VL DUP LOWER EXTREMITY VENOU S RIGHTon 08-14-2018 VL DUP LOWER EXTREMITY VENOUS RIGHT Radiology exam is complete. No Radiologist dictation. Please follow up with ordering provider. Final result Normal [facility] Comp Metabolic Profon 2018 (cont.) Normal [facility] Comment on above: Result Comment: Aver age GFR for 50-59 years old: 93 mL/min/1.73sq m Chronic Kidney Disease: <60 mL/min/1.73sq m Kidney failure: <15 mL/min/1.73sq m eGFR calculated using average adult body mass. Additional eGFR calculator available at: http://www.MediaPass/multiple_crcl_2012.htm Performed By: #### F T3, FT4, CDP, DIME, TROPI, CP, PTT, PT, TSH #### [facility] [address] [place] [address] Albumin mass conc 4.7 g/dL Normal 3.5-5.2 [facility] Comment on above: Performed By: #### F T3, FT4, CDP, DIME, TROPI, CP, PTT, PT, TSH #### [facility] [address] [place] [address] Alkaline Phos 70 U/L Normal 40-129 [facility] Comment on above: Performed By: #### F T3, FT4, CDP, DIME, TROPI, CP, PTT, PT, TSH #### [facility] [address] [place] [address] ALT enzyme act/vol 28 U/L Normal 5-41 [facility] Comment on above: Performed By: #### F T3, FT4, CDP, DIME, TROPI, CP, PTT, PT, TSH #### [facility] [address] [facility] [place] [address] Anion gap molar conc 11 mmol/L Normal 9-17 [facility] Comment on above: Performed By: #### F T3, FT4, CDP, DIME, TROPI, CP, PTT, PT, TSH #### [facility] [address] [facility] [place] [address] AST enzyme act/vol 18 U/L Normal <40 [facility] Comment on above: Performed By: #### F T3, FT4, CDP, DIME, TROPI, CP, PTT, PT, TSH #### [facility] [address] [place] [address] Bilirubin Ql (U) 0.48 mg/dL Normal 0.30-1.20 [facility] Comment on above: Performed By: #### F T3, FT4, CDP, DIME, TROPI, CP, PTT, PT, TSH #### [facility] [address] [place] [address] BUN/CRE Ratio 11 Normal 9-20 [facility] Comment on above: Performed By: #### F T3, FT4, CDP, DIME, TROPI, CP, PTT, PT, TSH #### [facility] [address] [place] [address] Calcium mass conc 9.1 mg/dL Normal 8.6-10.4 [facility] Comment on above: Performed By: #### F T3, FT4, CDP, DIME, TROPI, CP, PTT, PT, TSH #### [facility] [address] [place] [address] Chloride molar conc 104 mmol/L Normal 98-107 [facility] Comment on above: Performed By: #### F T3, FT4, CDP, DIME, TROPI, CP, PTT, PT, TSH #### [facility] [address] [facility] [place] [address] CO2 molar conc 26 mmol/L Normal 20-31 [facility] Comment on above: Performed By: #### F T3, FT4, CDP, DIME, TROPI, CP, PTT, PT, TSH #### [facility] [address] [facility] [place] [address] Creatinine mass conc 1.14 mg/dL Normal 0.70-1.20 [facility] Comment on above: Performed By: #### F T3, FT4, CDP, DIME, TROPI, CP, PTT, PT, TSH #### [facility] [address] [facility] [place] [address] GFR, Amer >60 Normal >60 [facility] Comment on above: Performed By: #### F T3, FT4, CDP, DIME, TROPI, CP, PTT, PT, TSH #### [facility] [address] [facility] [place] [address] GFR,non Amer >60 Normal >60 [facility] Comment on above: Performed By: #### F T3, FT4, CDP, DIME, TROPI, CP, PTT, PT, TSH #### [facility] [address] [facility] [place] [address] Glucose mass conc 133 mg/dL High 70-99 [facility] Comment on above: Performed By: #### F T3, FT4, CDP, DIME, TROPI, CP, PTT, PT, TSH #### [facility] [address] [facility] [place] [address] Potassium molar conc 4.9 mmol/L Normal 3.7-5.3 [facility] Comment on above: Performed By: #### F T3, FT4, CDP, DIME, TROPI, CP, PTT, PT, TSH #### [facility] [address] [facility] [place] [address] Protein mass conc 7.4 g/dL Normal 6.4-8.3 [facility] Comment on above: Performed By: #### F T3, FT4, CDP, DIME, TROPI, CP, PTT, PT, TSH #### [facility] [address] [facility] [place] [address] Sodium molar conc 141 mmol/L Normal 135-144 [facility] Comment on above: Performed By: #### F T3, FT4, CDP, DIME, TROPI, CP, PTT, PT, TSH #### [facility] [address] [facility] [place] [address] Urea nitrogen mass conc 13 mg/dL Normal 6-20 [facility] Comment on above: Performed By: #### F T3, FT4, CDP, DIME, TROPI, CP, PTT, PT, TSH #### [facility] [address] [facility] [place] [address] Albumin/Globulin mass ratio NOT REPORTED Normal 1.0-2.5 [facility] Comment on above: Performed By: #### F T3, FT4, CDP, DIME, TROPI, CP, PTT, PT, TSH #### [facility] [address] [facility] [place] [address] Staging: NOT REPORTED Normal [facility] Comment on above: Performed By: #### F T3, FT4, CDP, DIME, TROPI, CP, PTT, PT, TSH #### [facility] [address] [facility]. [place] [id number] Lipid Profileon 06-28-2018 Cholesterol in HDL mass conc 28 mg/dL Low >40 [facility] Comment on above: Result Comment: HDL Guidelines: <40 Undesirable 40-59 Borderline >59 Desirable Performed By: #### F T3, FT4, CDP, DIME, TROPI, CP, PTT, PT, TSH #### [facility] [address] [facility] [place] [address] Cholesterol in LDL mass conc 57 mg/dL Normal 0-130 [facility] Comment on above: Result Comment: LDL Guidelines: <100 Desirable 100-129 Near to/above Desirable 130-159 Borderline >159 Undesirable Direct (measured) LDL and calculated LDL are not interchangeable tests. Performed By: #### F T3, FT4, CDP, DIME, TROPI, CP, PTT, PT, TSH #### [facility] [address] [facility] [place] [address] Cholesterol mass conc 130 mg/dL Normal <200 [facility] Comment on above: Result Comment: Cholesterol Guidelines: <200 Desirable 200-240 Borderline >240 Undesirable Performed By: #### F T3, FT4, CDP, DIME, TROPI, CP, PTT, PT, TSH #### [facility] [address] [facility] [place] [address] Cholesterol.total/Choles terol in HDL mass ratio 4.6 {ratio} Normal <5 [facility] Comment on above: Performed By: #### F T3, FT4, CDP, DIME, TROPI, CP, PTT, PT, TSH #### [facility] [address] [facility] [place] [address] Triglyceride mass conc 226 mg/dL High <150 [facility] Comment on above: Result Comment: Triglyceride Guidelines: <150 Desirable 150-199 Borderline 200-499 High >499 Very high Based on AHA Guidelines for fasting triglyceride, November 2011. Performed By: #### F T3, FT4, CDP, DIME, TROPI, CP, PTT, PT, TSH #### [facility] [address] [facility] [place] [address] Cholesterol in VLDL mass conc NOT REPORTED Normal - [facility] Comment on above: Performed By: #### F T3, FT4, CDP, DIME, TROPI, CP, PTT, PT, TSH #### [facility] [address] [facility]. [place] [id number] (430 Patient fasting?on 9 Patient fasting? yes Normal [facility] Comment on above: Performed By: #### F T3, FT4, CDP, DIME, TROPI, CP, PTT, PT, TSH #### [facility] [address] [facility] [place] [address] TSH w/reflex to FT4on 2018 Thyrotropin Qn 1.28 m[IU]/L Normal 0.30-5.00 [facility] Comment on above: Performed By: #### F T3, FT4, CDP, DIME, TROPI, CP, PTT, PT, TSH #### [facility] [address] [place] [address] Vitamin D 25 OHon 06-28-2018 Vitamin D 25 [place] 34.9 ng/mL Normal 30.0-100.0 [facility] Comment on above: Result Comment: Reference Range: Vitamin D status Range Deficiency <20 ng/mL Mild Deficiency 20-30 ng/mL Sufficiency 30-100 ng/mL Toxicity >100 ng/mL Performed By: #### F T3, FT4, CDP, DIME, TROPI, CP, PTT, PT, TSH #### [facility] [address] [facility] [place] [address] FS CBCon 02-10-2018 Erythrocyte distribution width Auto Ratio (RBC) 13.0 % Normal 11.6-14.8 [facility] Comment on above: Performed By: #### F SCBC ####Unless otherwise noted, all testing performed by [address] [id number]: [id number] Director: Marino Gaitan M.D. Hematocrit Auto Volume Fraction (Bld) 39.3 % Low 41.0-53.0 [facility] Comment on above: Performed By: #### F SCBC ####Unless otherwise noted, all testing performed by [address] [phone]: [id number] Director: Marino Gaitan M.D. Hemoglobin mass conc (Bld) 13.9 g/dL Normal 13.5-17.5 [facility] Comment on above: Performed By: #### F SCBC ####Unless otherwise noted, all testing performed by [address] [phone]: [id number] Director: Marino Gaitan M.D. Lymphocytes Auto #/vol (Bld) 1.5 K/mcL Normal 0.90-4.00 [facility] Comment on above: Performed By: #### F SCBC ####Unless otherwise noted, all testing performed by [address] [phone]: [id number] Director: Marino Gaitan M.D. Lymphocytes/100 WBC Auto (Bld) 23.7 % Normal [facility] Comment on above: Performed By: #### F SCBC ####Unless otherwise noted, all testing performed by [address] [id number]: [id number] Director: Marino Gaitan M.D. MCH Auto Entitic mass (RBC) 30.5 pg Normal 26.0-34.0 [facility] Comment on above: Performed By: #### F SCBC ####Unless otherwise noted, all testing performed by [address] [phone]: [id number] Director: Marino Gaitan M.D. MCHC Auto mass conc (RBC) 35.4 g/dL Normal 31.0-37.0 [facility] Comment on above: Performed By: #### F SCBC ####Unless otherwise noted, all testing performed by [address] [phone]: [id number] Director: Marino Gaitan M.D. MCV Auto Entitic volume (RBC) 86.4 fL Normal 80-100 [facility] Comment on above: Performed By: #### F SCBC ####Unless otherwise noted, all testing performed by [address] [id number]: [id number] Director: Marino Gaitan M.D. Neutrophils Auto #/vol (Bld) 4.0 K/mcL Normal 1.70-7.00 [facility] Comment on above: Performed By: #### F SCBC ####Unless otherwise noted, all testing performed by [address] [phone]: [id number] Director: Marino Gaitan M.D. Platelet mean volume Auto Entitic volume (Bld) 10.4 fL Normal 9.0-15.5 [facility] Comment on above: Performed By: #### F SCBC ####Unless otherwise noted, all testing performed by [address] [phone]: [id number] Director: Marino Gaitan M.D. Platelets Auto #/vol (Bld) 153 K/mcL Normal 150-400 [facility] Comment on above: Performed By: #### F SCBC ####Unless otherwise noted, all testing performed by [address] [phone]: [id number] Director: Marino Gaitan M.D. RBC Auto #/vol (Bld) 4.55 M/mcL Normal 4.50-5.[address] [facility] Comment on above: Performed By: #### F SCBC ####Unless otherwise noted, all testing performed by [address] [phone]: [id number] Director: Mairno Gaitan M.D. Segmented Neut % 64.5 % Normal [facility] Comment on above: Performed By: #### F SCBC ####Unless otherwise noted, all testing performed by [address] [phone]: [id number] Director: Marino Gaitan M.D. Testing performed CBC - [place] FSED Normal [facility] Comment on above: Result Comment: Test ing performed at [facility], [address] [place] [address]; [employer] Jarett Orantes Performed By: #### F SCBC ####Unless otherwise noted, all testing performed by [address] [phone]: [id number] Director: Marino Gaitan M.D. WBC Auto #/vol (Bld) 6.2 K/mcL Normal 4.5-11.[address] [facility] Comment on above: Performed By: #### F SCBC ####Unless otherwise noted, all testing performed by [address] [phone]: [id number] Director: Marino Gaitan M.D. FS Comprehens Metabolic Pane shalom 02-10-2018 Albumin mass conc 3.8 g/dL Normal 3.2-5.2 [facility] Comment on above: Performed By: #### F SCMET ####Unless otherwise noted, all testing performed by [address] [phone]: [id number] Director: Marino Gaitan M.D. ALP enzyme act/vol 74 U/L Normal 40-150 [place] Comment on above: Performed By: #### F SCMET ####Unless otherwise noted, all testing performed by [address] [phone]: [id number] Director: Marino Gaitan M.D. ALT enzyme act/vol 38 U/L Normal 0-40 [place] Comment on above: Performed By: #### F SCMET ####Unless otherwise noted, all testing performed by [address] [phone]: [id number] Director: Marino Gaitan M.D. AST enzyme act/vol 28 U/L Normal 0-45 [place] Comment on above: Performed By: #### F SCMET ####Unless otherwise noted, all testing performed by [address] [phone]: [id number] Director: Marino Gaitan M.D. Bilirubin mass conc 0.8 mg/dL Normal 0.0-1.[address] [facility] Comment on above: Performed By: #### F SCMET ####Unless otherwise noted, all testing performed by [address] [place] [phone]: [id number] Director: Marino Gaitan M.D. Calcium mass conc 9.4 mg/dL Normal 8.4-10.2 [facility] Comment on above: Performed By: #### F SCMET ####Unless otherwise noted, all testing performed by [place] [phone]: [id number] Director: Marino Gaitan M.D. Chloride molar conc 103 mmol/L Normal 98-[address] [facility] Comment on above: Performed By: #### F SCMET ####Unless otherwise noted, all testing performed by [place] [phone]: [id number] Director: Marino Gaitan M.D. CO2 molar conc 29 mmol/L Normal 21-32 [facility] Comment on above: Performed By: #### F SCMET ####Unless otherwise noted, all testing performed by [place] [phone]: [id number] Director: Marino Gaitan M.D. Creatinine mass conc 1.4 mg/dL High 0.50-1.[address] [facility] Comment on above: Performed By: #### F SCMET ####Unless otherwise noted, all testing performed by [place] [phone]: [id number] Director: Marino Gaitan M.D. Glucose mass conc 121 mg/dL High 65-99 [facility] Comment on above: Performed By: #### F SCMET ####Unless otherwise noted, all testing performed by [address] [phone]: [id number] Director: Marino Gaitan M.D. Potassium molar conc 4.1 mmol/L Normal 3.5-5.[address] [facility] Comment on above: Performed By: #### F SCMET ####Unless otherwise noted, all testing performed by [address] [phone]: [id number] Director: Marino Gaitan M.D. Protein mass conc 6.6 g/dL Normal 6.0-8.0 [facility] Comment on above: Performed By: #### F SCMET ####Unless otherwise noted, all testing performed by [address] [phone]: [id number] Director: Marino Gaitan M.D. Sodium molar conc 144 mmol/L Normal 135-145 [facility] Comment on above: Performed By: #### F SCMET ####Unless otherwise noted, all testing performed by [address] [phone]: [id number] Director: Marino Gaitan M.D. Testing performed [facility] FS Normal [facility] Comment on above: Result Comment: Test ing performed at [facility], [facility], [place], [place]; Medical [employer] Jarett Orantes Performed By: #### F SCMET ####Unless otherwise noted, all testing performed by [address] [phone]: [id number] Director: Marino Gaitan M.D. Urea nitrogen mass conc 12 mg/dL Normal 8-25 O [facility] Comment on above: Performed By: #### F SCMET ####Unless otherwise noted, all testing performed by [address]8[address]CLIA: [id number] Director: Marino Gaitan M.D. FS Urinalysison 02-10-2018 Bilirubin,Urine Negative Normal Negative [facility] Comment on above: Performed By: #### F SUA ####Unless otherwise noted, all testing performed by [address]8[address]CLIA: [id number] Director: Marino Gaitan M.D. Blood,Urine Negative Normal Negative [facility] Comment on above: Performed By: #### F SUA ####Unless otherwise noted, all testing performed by [address]8509CLIA: [id number] Director: Marino Gaitan M.D. Character Clear Normal [facility] Comment on above: Performed By: #### F SUA ####Unless otherwise noted, all testing performed by [place] [phone]: [id number] Director: Marino Gaitan M.D. Color Nom (U) Yellow Normal [facility] Comment on above: Performed By: #### F SUA ####Unless otherwise noted, all testing performed by [place] [phone]: [id number] Director: Marino Gaitan M.D. Glucose Ql (U) Negative Normal Negative [facility] Comment on above: Performed By: #### F SUA ####Unless otherwise noted, all testing performed by [place] [phone]: [id number] Director: Marino Gaitan M.D. Ketone,Urine Negative Normal Negative [facility] Comment on above: Performed By: #### F SUA ####Unless otherwise noted, all testing performed by [address]8509[address]IA: [id number] Director: Marino Gaitan M.D. Leuk.Esterase,Urine Negative Normal Negative [facility] Comment on above: Performed By: #### F SUA ####Unless otherwise noted, all testing performed by [address]8509CLIA: [id number] Director: Marino Gaitan M.D. Nitrite,Urine Negative Normal NEG;NEGATI VE [facility] Comment on above: Performed By: #### F SUA ####Unless otherwise noted, all testing performed by [address] [phone]: [id number] Director: Marino Gaitan M.D. pH Test strip (U) 7.0 [pH] Normal 4.5-8.0 [facility] Comment on above: Performed By: #### F SUA ####Unless otherwise noted, all testing performed by [place] [address], [place] [phone]: [id number] Director: Marino Gaitan M.D. Protein,Urine Negative Normal Negative [facility] Comment on above: Performed By: #### F SUA ####Unless otherwise noted, all testing performed by [address] [phone]: [id number] Director: Marino Gaitan M.D. Specific [place],Urine 1.020 Normal 1.003 -1.02 9 [facility] Comment on above: Performed By: #### F SUA ####Unless otherwise noted, all testing performed by [address] [phone]: [id number] Director: Marino Gaitan M.D. Testing performed [facility] FSED Normal [facility] Comment on above: Result Comment: Test ing performed at [facility], [address] [place] [address]; Medical [employer] Jarett Orantes Performed By: #### F SUA ####Unless otherwise noted, all testing performed by [address] [phone]: [id number] Director: Marino Gaitan M.D. Urobilinogen,Urine 0.2 mg/dL Normal <2 [place] Comment on above: Performed By: #### F SUA ####Unless otherwise noted, all testing performed by [address] [phone]: [id number] Director: Marino Gaitan M.D. Lactic Acidon 02-10-2018 Lactate molar conc 1.0 mmol/L Normal 0.6-2.0 [place] Comment on above: Performed By: #### L A ####Unless otherwise noted, all testing performed by [facility] [place], [place] [phone]: [id number] Director: Marino Gaitan M.D. CARDIAC STRESS TESTon 2017 CARDIAC STRESS TEST [facility] [address] [place] [address] CARDIAC STRESS TEST PATIENT NAME: KRISHAN BURNHAM : 1965 MED REC NO: [id number] ROOM: ACCOUNT NO: [id number] ADMIT DATE: 12/29/2017 PROVIDER: Leif Mckeon DATE [...] with Dr. Singh on 12/29/2017. LEIF MCKEON MARTHA Job#: [id number] Doc#: Unknown CC: Steve Singh [facility] CARDIAC STRESS TEST [facility] [address] [place] [address] CARDIAC STRESS TEST PATIENT NAME: KRISHAN BURNHAM : 1965 MED REC NO: [id number] ROOM: ACCOUNT NO: [id number] ADMIT DATE: 12/29/2017 PROVIDER: Josias Singh DATE [...] test. 6. Cardiolite to follow. JOSIAS SINGH SHERRY/[email or web address] Doc#: [id number] CC: Normal [facility] NM MYOCARDIAL SPECT REST EXE RCISE OR RXon 12-29-2017 NM MYOCARDIAL SPECT REST EXERCISE OR RX Radiology exam is complete. No Radiologist dictation. Please follow up with ordering provider. Final result Normal [facility] Progress Noteon 12-22-2017 HIM IP Note OR Sodder Normal [facility] APTTon 12-09-2017 aPTT Coag time (Bld) 26.1 s Normal 21.0-33.0 [facility] Comment on above: Result Comment: PTT Therapeutic Range: 61.7-88.4 Therapeutic range corresponds to plasma heparin levels of 0.3-0.7 U/mL. Performed By: #### F T3, FT4, CDP, DIME, TROPI, CP, PTT, PT, TSH #### [facility] [address] [place] [address] CBC with Diffon 12-09-2017 Abs. Basophil 0.00 k/uL Normal 0.0-0.2 [facility] Comment on above: Performed By: #### F T3, FT4, CDP, DIME, TROPI, CP, PTT, PT, TSH #### [facility] [address] [facility] [place] [address] Abs.Neutrophil (Seg) 4.10 k/uL Normal 2.1-6.5 [facility] Comment on above: Performed By: #### F T3, FT4, CDP, DIME, TROPI, CP, PTT, PT, TSH #### [place] [address] Auto Diff Performed YES Normal [facility] Comment on above: Performed By: #### F T3, FT4, CDP, DIME, TROPI, CP, PTT, PT, TSH #### [place] [address] Basophils/100 WBC (Bld) 0 % Normal 0-2 [facility] Comment on above: Performed By: #### F T3, FT4, CDP, DIME, TROPI, CP, PTT, PT, TSH #### [place] [address] Eosinophils #/vol (Bld) 0.20 10*3/uL Normal 0.0-0.4 [facility] Comment on above: Performed By: #### F T3, FT4, CDP, DIME, TROPI, CP, PTT, PT, TSH #### [facility] [address] [facility] [place] [address] Eosinophils/100 WBC (Bld) 3 % Normal 0-5 [facility] Comment on above: Performed By: #### F T3, FT4, CDP, DIME, TROPI, CP, PTT, PT, TSH #### [address] [address] Erythrocyte distribution width Ratio (RBC) 13.2 % Normal 12.1-15.2 [facility] Comment on above: Performed By: #### F T3, FT4, CDP, DIME, TROPI, CP, PTT, PT, TSH #### [facility] [address] [facility] [place] [address] Hematocrit Volume Fraction (Bld) 47.5 % Normal 41-53 [facility] Comment on above: Performed By: #### F T3, FT4, CDP, DIME, TROPI, CP, PTT, PT, TSH #### [facility] [address] [facility] [place] [address] Hemoglobin mass conc (Bld) 15.9 g/dL Normal 13.5-17.5 [facility] Comment on above: Performed By: #### F T3, FT4, CDP, DIME, TROPI, CP, PTT, PT, TSH #### [facility] [address] [place] [address] Lymphocytes #/vol (Bld) 1.30 10*3/uL Normal 1.0-4.8 [facility] Comment on above: Performed By: #### F T3, FT4, CDP, DIME, TROPI, CP, PTT, PT, TSH #### [facility] [address] [place] [address] Lymphocytes/100 WBC (Bld) 22 % Normal 13-44 [facility] Comment on above: Performed By: #### F T3, FT4, CDP, DIME, TROPI, CP, PTT, PT, TSH #### [facility] [address] [facility] [place] [address] MCH Entitic mass (RBC) 29.9 pg Normal 26-34 [facility] Comment on above: Performed By: #### F T3, FT4, CDP, DIME, TROPI, CP, PTT, PT, TSH #### [facility] [address] [facility] [place] [address] MCHC mass conc (RBC) 33.5 g/dL Normal 31-37 [facility] Comment on above: Performed By: #### F T3, FT4, CDP, DIME, TROPI, CP, PTT, PT, TSH #### [facility] [address] [facility] [place] [address] MCV Entitic volume (RBC) 89.3 fL Normal 80-100 [facility] Comment on above: Performed By: #### F T3, FT4, CDP, DIME, TROPI, CP, PTT, PT, TSH #### [facility] [address] [facility] [place] [address] Monocytes #/vol (Bld) 0.60 10*3/uL Normal 0.0-1.0 [facility] Comment on above: Performed By: #### F T3, FT4, CDP, DIME, TROPI, CP, PTT, PT, TSH #### [facility] [address] [facility] [place] [address] Monocytes/100 WBC (Bld) 10 % High 5-9 [facility] Comment on above: Performed By: #### F T3, FT4, CDP, DIME, TROPI, CP, PTT, PT, TSH #### [place] [address] Neutrophil (Seg) 65 % Normal 39-75 [facility] Comment on above: Performed By: #### F T3, FT4, CDP, DIME, TROPI, CP, PTT, PT, TSH #### [address] [place] [address] Platelets #/vol (Bld) 157 10*3/uL Normal 140-450 [facility] Comment on above: Performed By: #### F T3, FT4, CDP, DIME, TROPI, CP, PTT, PT, TSH #### [address] [place] [address] RBC #/vol (Bld) 5.32 10*6/uL Normal 4.5-5.9 [facility] Comment on above: Performed By: #### F T3, FT4, CDP, DIME, TROPI, CP, PTT, PT, TSH #### [place] [address] WBC #/vol (Bld) 6.2 10*3/uL Normal 3.5-11.0 [facility] Comment on above: Performed By: #### F T3, FT4, CDP, DIME, TROPI, CP, PTT, PT, TSH #### [place] [address] Abs.Imm.Granulocyte NOT REPORTED Normal 0.00-0.30 [facility] Comment on above: Performed By: #### F T3, FT4, CDP, DIME, TROPI, CP, PTT, PT, TSH #### [place] [address] Immature granulocytes #/vol (Bld) NOT REPORTED Normal 0 [facility] Comment on above: Performed By: #### F T3, FT4, CDP, DIME, TROPI, CP, PTT, PT, TSH #### [place] [address] NRBC Automated NOT REPORTED Normal [facility] Comment on above: Performed By: #### F T3, FT4, CDP, DIME, TROPI, CP, PTT, PT, TSH #### [place] [address] Platelet mean volume Entitic volume (Bld) NOT REPORTED Normal 6.0-12.0 [facility] Comment on above: Performed By: #### F T3, FT4, CDP, DIME, TROPI, CP, PTT, PT, TSH #### [address] [address] Platelets #/vol (Bld) NOT REPORTED Normal [facility] Comment on above: Performed By: #### F T3, FT4, CDP, DIME, TROPI, CP, PTT, PT, TSH #### [facility] [address] [place] [id number] RBC morphology finding Nom (Bld) NOT REPORTED Normal [facility] Comment on above: Performed By: #### F T3, FT4, CDP, DIME, TROPI, CP, PTT, PT, TSH #### [facility] [address] [facility] [place] [address] WBC Morphology NOT REPORTED Normal [facility] Comment on above: Performed By: #### F T3, FT4, CDP, DIME, TROPI, CP, PTT, PT, TSH #### [facility] [address] [facility] [place] [address] CT HEAD WO CONTRASTon 2017 CT HEAD [...] Krishan Miranda MD 12/09/17 Final result Normal [facility] Comp Metabolic Profon 2017 (cont.) Normal [facility] Comment on above: Result Comment: Aver age GFR for 50-59 years old: 93 mL/min/1.73sq m Chronic Kidney Disease: <60 mL/min/1.73sq m Kidney failure: <15 mL/min/1.73sq m eGFR calculated using average adult body mass. Additional eGFR calculator available at: http://www.MODIZY.COM.PUSH Wellness/multiple_crcl_2012.htm Performed By: #### F T3, FT4, CDP, DIME, TROPI, CP, PTT, PT, TSH #### [facility] [address] [facility] [place] [address] Albumin mass conc 4.4 g/dL Normal 3.5-5.2 [facility] Comment on above: Performed By: #### F T3, FT4, CDP, DIME, TROPI, CP, PTT, PT, TSH #### [facility] [address] [facility] [place] [address] Alkaline Phos 75 U/L Normal 40-129 [facility] Comment on above: Performed By: #### F T3, FT4, CDP, DIME, TROPI, CP, PTT, PT, TSH #### [facility] [address] [place] [address] ALT enzyme act/vol 38 U/L Normal 5-41 [facility] Comment on above: Performed By: #### F T3, FT4, CDP, DIME, TROPI, CP, PTT, PT, TSH #### [facility] [address] [place] [address] Anion gap molar conc 10 mmol/L Normal 9-17 [facility] Comment on above: Performed By: #### F T3, FT4, CDP, DIME, TROPI, CP, PTT, PT, TSH #### [facility] [address] [place] [address] AST enzyme act/vol 23 U/L Normal <40 [facility] Comment on above: Performed By: #### F T3, FT4, CDP, DIME, TROPI, CP, PTT, PT, TSH #### [facility] [address] [place] [address] Bilirubin Ql (U) 0.36 mg/dL Normal 0.30-1.20 [facility] Comment on above: Performed By: #### F T3, FT4, CDP, DIME, TROPI, CP, PTT, PT, TSH #### [facility] [address] [facility] [place] [address] BUN/CRE Ratio 16 Normal 9-20 [facility] Comment on above: Performed By: #### F T3, FT4, CDP, DIME, TROPI, CP, PTT, PT, TSH #### [facility] [address] [facility] [place] [address] Calcium mass conc 9.5 mg/dL Normal 8.6-10.4 [facility] Comment on above: Performed By: #### F T3, FT4, CDP, DIME, TROPI, CP, PTT, PT, TSH #### [facility] [address] [facility] [place] [address] Chloride molar conc 104 mmol/L Normal 98-107 [facility] Comment on above: Performed By: #### F T3, FT4, CDP, DIME, TROPI, CP, PTT, PT, TSH #### [facility] [address] [place] [address] CO2 molar conc 24 mmol/L Normal 20-31 [facility] Comment on above: Performed By: #### F T3, FT4, CDP, DIME, TROPI, CP, PTT, PT, TSH #### [facility] [address] [place] [address] Creatinine mass conc 0.93 mg/dL Normal 0.70-1.20 [facility] Comment on above: Performed By: #### F T3, FT4, CDP, DIME, TROPI, CP, PTT, PT, TSH #### [facility] [address] [facility] [place] [address] GFR, Amer >60 Normal >60 [facility] Comment on above: Performed By: #### F T3, FT4, CDP, DIME, TROPI, CP, PTT, PT, TSH #### [facility] [address] [facility] [place] [address] GFR,non Amer >60 Normal >60 [facility] Comment on above: Performed By: #### F T3, FT4, CDP, DIME, TROPI, CP, PTT, PT, TSH #### [facility] [address] [facility] [place] [address] Glucose mass conc 157 mg/dL High 70-99 [facility] Comment on above: Performed By: #### F T3, FT4, CDP, DIME, TROPI, CP, PTT, PT, TSH #### [facility] [address] [facility] [place] [address] Potassium molar conc 3.9 mmol/L Normal 3.7-5.3 [facility] Comment on above: Performed By: #### F T3, FT4, CDP, DIME, TROPI, CP, PTT, PT, TSH #### [facility] [address] [facility] [place] [address] Protein mass conc 7.2 g/dL Normal 6.4-8.3 [facility] Comment on above: Performed By: #### F T3, FT4, CDP, DIME, TROPI, CP, PTT, PT, TSH #### [facility] [address] [facility] [place] [address] Sodium molar conc 138 mmol/L Normal 135-144 [facility] Comment on above: Performed By: #### F T3, FT4, CDP, DIME, TROPI, CP, PTT, PT, TSH #### [facility] [address] [facility] [place] [address] Urea nitrogen mass conc 15 mg/dL Normal 6-20 [facility] Comment on above: Performed By: #### F T3, FT4, CDP, DIME, TROPI, CP, PTT, PT, TSH #### [address] [place] [address] Albumin/Globulin mass ratio NOT REPORTED Normal 1.0-2.5 [facility] Comment on above: Performed By: #### F T3, FT4, CDP, DIME, TROPI, CP, PTT, PT, TSH #### [facility] [address] [facility] [place] [id number] Staging: NOT REPORTED Normal [facility] Comment on above: Performed By: #### F T3, FT4, CDP, DIME, TROPI, CP, PTT, PT, TSH #### [address] [address] D-Dimer Teston 12-09-2017 D-Dimer Test <0.19 Normal 0.00-0.50 [facility] Comment on above: Result Comment: Elevated levels [...] DIME, TROPI, CP, PTT, PT, TSH #### [address] [place] [address] PTon 12-09-2017 INR Coag RelTime (PPP) 1.1 {INR} Normal [facility] Comment on above: Result Comment: * THERAPY INDICATIONS * REFERENCE RANGES Pts not on anti-coagulants 1.0 - 1.5 INR Low risk pts on anti-coagulants 2.0 - 3.0 INR High risk pts on anti-coagulants 2.5 - 3.5 INR Prevention of atrial thrombo-embolism 3.0 - 4.5 INR Performed By: #### F T3, FT4, CDP, DIME, TROPI, CP, PTT, PT, TSH #### [facility] [address] [place] [id number] Prothrombin time (PT) Coag time (PPP) 10.6 s Normal 9.0-11.6 [facility] Comment on above: Performed By: #### F T3, FT4, CDP, DIME, TROPI, CP, PTT, PT, TSH #### [facility] [address] [place] [phone] T3, Freeon 12-09-2017 T3 free mass conc 3.14 pg/mL Normal 2.02-4.43 [facility] Comment on above: Performed By: #### F T3, FT4, CDP, DIME, TROPI, CP, PTT, PT, TSH #### [facility] [address] [place] [address] Thyroid Stim. Horm.on 2017 Thyrotropin Qn 1.44 m[IU]/L Normal 0.30-5.00 [facility] Comment on above: Performed By: #### F T3, FT4, CDP, DIME, TROPI, CP, PTT, PT, TSH #### [facility] [address] [place] [address] [phone] Thyroxine, Freeon 12-09-2017 Thyroxine, Free 1.03 ng/dL Normal 0.93-1.70 [facility] Comment on above: Performed By: #### F T3, FT4, CDP, DIME, TROPI, CP, PTT, PT, TSH #### [facility] [address] [place] [phone] Troponinon 12-09-2017 Troponin I.cardiac mass conc Normal [facility] Comment on above: Result Comment: Refe rence [...] DIME, TROPI, CP, PTT, PT, TSH #### [facility] [address] [place] [address] Troponin I.cardiac mass conc ng/mL Normal <0.03 [facility] Comment on above: Result Comment: Trop onin T results cannot be compared to Troponin-I results. Performed By: #### F T3, FT4, CDP, DIME, TROPI, CP, PTT, PT, TSH #### [facility] [address] [place] [address] XR CHEST PORTABLEon 12-10-19 XR CHEST PORTABLE [...] Brittany Zamora DO 12/09/17 Final result Normal [facility] Progress Noteon 10-12-2017 HIM IP Note OR Sodder Normal [facility] Progress Noteon 08-17-2017 HIM IP Note OR Sodder Normal [facility] Discharge Summaryon 04-20-19 Discharge Summary MR#: [id number] [facility] Name: Krishan Burnham Admitted: 04/16/2017 [...] t[facility], [facility], the patient was stable. Right-sided visionwas back [...] orneurologist for evaluation regarding headache treatment. Continue [id number] mg daily. Follow with primary care physician or neurologist who treats Parkinson disease.DISCHARGE MEDICATIONS: Aspirin 81 mg everyday, carbidopa 25 mg, [id number] mg tablet every 4 hours. Clonazepam 0.5 [...] Dict: 04/19/2017/06:23 P/Genaro Mancera Trans: 04/20/2017 06:59 [id number] Normal [facility] EEG Reporton 04-19-2017 [facility] [id number] Age: 51 Physician: Date: 04/18/2017 Lab#: [id number] Date of : 1965 Patient Type: I [facility] [id number], [place] [address] Board of the [employer] [place] Electroencephalographic Society Accredited LaboratoryTECHNOLOGIST: Guera Levy.EEG DURATION: 28 minutes and 06 seconds.CLINICAL HISTORY: This 51-year-old male presented from [facility] with chest pain, right-sided weakness, right-sided vision [...] Signed by:Sky Carrillo MD 04/24/2017 07:43 P Sky Carrillo MDDate Dict: 04/18/2017/07:02 P/Sky Carrillo MDDate Trans: 04/19/2017 03:05 [id number] Normal [facility] BASIC METABOLIC PANELon 02-2 Calcium 9.1 mg/dL Normal 8.6-10.3 [facility] Comment on above: Order Comment: No: D o not add to previous draw Performed By: #### 1 0070, 30422, 06045, 22892, 70136 ####[facility] [place] [address], [facility] Chloride 103 mmol/L Normal 98-107 [facility] Comment on above: Order Comment: No: D o not add to previous draw Performed By: #### 1 0070, 96832, 71305, 27042, 28990 ####[facility] [place] [address], [facility] CO2 26 mmol/L Normal 21-31 [facility] Comment on above: Order Comment: No: D o not add to previous draw Performed By: #### 1 0070, 08698, 34534, 35002, 04543 ####[facility] [place] [address], [facility] Creatinine 1.16 mg/dL Normal 0.70-1.30 [facility] Comment on above: Order Comment: No: D o not add to previous draw Performed By: #### 1 0070, 69782, 73468, 64368, 37363 ####[facility] [place] [address], [facility] eGFR (black) mL/min/{1.73_m2} Normal >60 [facility] Comment on above: Order Comment: No: D o not add to previous draw Performed By: #### 1 0070, 60865, 29505, 74415, 36823 ####[facility] eGFR (non-black) mL/min/{1.73_m2} Normal >60 [facility] Comment on above: Order Comment: No: D o not add to previous draw Performed By: #### 1 0070, 54438, 53090, 02161, 85935 ####[facility] Glucose mass conc 111 mg/dL High 70-100 [facility] Comment on above: Order Comment: No: D o not add to previous draw Performed By: #### 1 0070, 31706, 84260, 00946, 79861 ####[facility] Potassium molar conc 4.2 mmol/L Normal 3.5-5.1 [facility] Comment on above: Order Comment: No: D o not add to previous draw Performed By: #### 1 0070, 58420, 67949, 12291, 75092 ####[facility] [facility] Sodium 137 mmol/L Normal 136-145 [facility] Comment on above: Order Comment: No: D o not add to previous draw Performed By: #### 1 0070, 04212, 90736, 28857, 69983 ####[facility] [place] [address], [facility] Urea nitrogen 14 mg/dL Normal 7-25 [facility] Comment on above: Order Comment: No: D o not add to previous draw Performed By: #### 1 0070, 30850, 76513, 85612, 47379 ####[facility] [place] [address], [facility] CBC W/DIFFon 04-18-2017 ABS BASOPHILS 0.0 10*3/uL Normal 0.0-0.2 [facility] Comment on above: Order Comment: No: D o not add to previous draw Performed By: #### 1 0070, 62742, 50163, 12030, 36683 ####[facility] ABS IMM GRANS 0.0 10*3/uL Normal 0.0-0.2 [facility] Comment on above: Order Comment: No: D o not add to previous draw Performed By: #### 1 0070, 64229, 93255, 96479, 17646 ####[facility] ABS NEUTROPHILS 9.2 10*3/uL High 1.6-7.6 [facility] Comment on above: Order Comment: No: D o not add to previous draw Performed By: #### 1 0070, 08120, 27570, 83626, 11123 ####[facility] Basophils Auto #/vol (Bld) 0.3 % Normal 0.0-1.0 [facility] Comment on above: Order Comment: No: D o not add to previous draw Performed By: #### 1 0070, 31722, 88877, 37903, 13299 ####[facility] Eosinophils 0.1 10*3/uL Normal 0.0-0.5 [facility] Comment on above: Order Comment: No: D o not add to previous draw Performed By: #### 1 0070, 94685, 01444, 72220, 75389 ####[facility] Eosinophils/100 leukocytes 1.0 % Normal 0.0-6.0 [facility] Comment on above: Order Comment: No: D o not add to previous draw Performed By: #### 1 0070, 72140, 69539, 08885, 85745 ####[facility] [facility].[address] Erythrocyte distribution width Auto Ratio (RBC) 12.1 % Normal 11.5-15.0 [facility] Comment on above: Order Comment: No: D o not add to previous draw Performed By: #### 1 0070, 89031, 17086, 67797, 62735 ####[facility] [facility].[address] Erythrocytes (RBC) 5.61 10*6/uL Normal 4.20-5.70 [facility] Comment on above: Order Comment: No: D o not add to previous draw Performed By: #### 1 0070, 46862, 19192, 85985, 49245 ####[facility] [facility].[address] Hematocrit (HCT) 47.9 % Normal 39.0-50.0 [facility] Comment on above: Order Comment: No: D o not add to previous draw Performed By: #### 1 0070, 43240, 42421, 70570, 90204 ####[facility] [facility].[address] Hemoglobin mass conc (Bld) 16.6 g/dL Normal 13.0-17.0 [facility] Comment on above: Order Comment: No: D o not add to previous draw Performed By: #### 1 0070, 29155, 88463, 94797, 22327 ####[facility] [facility].[address] IMMATURE GRANS 0.3 % Normal 0.0-1.0 [facility] Comment on above: Order Comment: No: D o not add to previous draw Performed By: #### 1 0070, 53809, 05529, 15496, 19407 ####[facility] Lymphocytes 1.2 10*3/uL Normal 1.2-4.0 [facility] Comment on above: Order Comment: No: D o not add to previous draw Performed By: #### 1 0070, 29547, 15187, 91854, 04805 ####[facility] Lymphocytes/100 leukocytes 10.4 % Low 20.0-45.0 [facility] Comment on above: Order Comment: No: D o not add to previous draw Performed By: #### 1 0070, 31319, 47585, 18302, 09764 ####[facility] MCH 29.6 pg Normal 27.0-33.0 [facility] Comment on above: Order Comment: No: D o not add to previous draw Performed By: #### 1 0070, 59932, 31070, 65170, 48475 ####[facility] MCHC mass conc (RBC) 34.7 g/dL Normal 32.0-35.0 [facility] Comment on above: Order Comment: No: D o not add to previous draw Performed By: #### 1 0070, 46477, 21450, 63290, 15812 ####[facility] [facility].[address] MCV 85.4 fL Normal 82.0-98.0 [facility] Comment on above: Order Comment: No: D o not add to previous draw Performed By: #### 1 0070, 22227, 74589, 13560, 60186 ####[facility] Monocytes 0.9 10*3/uL Normal 0.1-1.0 [facility] Comment on above: Order Comment: No: D o not add to previous draw Performed By: #### 1 0070, 24317, 36162, 80414, 68055 ####[facility] [place] [address], [facility] MONOS 7.6 % Normal 5.0-12.0 [facility] Comment on above: Order Comment: No: D o not add to previous draw Performed By: #### 1 0070, 39276, 76210, 05894, 12372 ####[facility] [place] [address], [facility] Neutrophils/100 leukocytes 80.4 % High 40.0-72.0 [facility] Comment on above: Order Comment: No: D o not add to previous draw Performed By: #### 1 0070, 03693, 58996, 08238, 89286 ####[facility] NRBC 0 % Normal 0-0 [facility] Comment on above: Order Comment: No: D o not add to previous draw Performed By: #### 1 0070, 49808, 71316, 56065, 24554 ####[facility] PLAT CNT 152 10*3/uL Normal 150-400 [facility] Comment on above: Order Comment: No: D o not add to previous draw Performed By: #### 1 0070, 31654, 25748, 12035, 98801 ####[facility] [place] [address], [facility] WBC (Leukocytes) 11.5 10*3/uL High 4.0-10.6 [facility] Comment on above: Order Comment: No: D o not add to previous draw Performed By: #### 1 0070, 19574, 99604, 17369, 33959 ####[facility] [address] CT BRAIN WO CONTRASTon 04-18 CT [facility]AST [facility] Dwsmsesjn280[address] [place] [address] P atient Name: KRISHAN BURNHAM : 1965Sex: MAge: Race: WhiteMRN: [id number]. Location: [id number] Status: IVisit #: [id number] Date: 04/17/2017 6:15:00 PMCompleted Date: 04/18/2017 12:41 AMRequesting Provider: ANA ZEPEDA Attending Provider: ELIER LU Report Copy To: Signs & Symptoms: Stroke(CVA)History: Patient history not availableComments: R/O CVAExam: CT BRAIN WO CONTRASTAccession #: [id number] ======CT BRAIN WO CONTRAST 04/18/2017 12:41 AM [...] disease and status post maxillary antrectomy. Approved by:Gumaro June on 04/18/2017 8:02 AM EST. I, Kev Guallpa, have reviewed the images and report and concur with these findings. Electronically signed by:Kev Guallpa. Transcribed by: [email or web address], User Resident: GUMARO JUNEElectronically Signed by: KEV GUALLPA @ 04/18/2017 09:52 AMI personally read this/these film(s) with this resident Normal [facility] Comment on above: Order Comment: No: D o not add to previous draw MAGNESIUM BLOODon 04-18-2017 Magnesium 2.1 mg/dL Normal 1.9-2.7 [facility] Comment on above: Order Comment: No: D o not add to previous draw Performed By: #### 1 0070, 84137, 30603, 02551, 96503 ####[address] PORTABLE CHEST 1 VIEWon 03-31 PORTABLE CHEST 1 VIEW [facility] Qxgrphmds8[address] [place] [address] P atient Name: KRISHAN BURNHAM : 1965Sex: MAge: Race: WhiteMRN: [id number]. Location: [id number] Status: IVisit #: [id number] Date: 04/18/2017 11:00:00 AMCompleted Date: 04/18/2017 11:39 AMRequesting Provider: APRYL MARQUEZ Attending Provider: ELIER LU Report Copy To: Signs & Symptoms: OtherHistory: Patient history not availableComments: R/O Aspiration, H/O CVAExam: PORTABLE CHEST 1 VIEWAccession #: [id number] ======PORTABLE CHEST 1 VIEW 04/18/2017 11:39 AM [...] effort. Electronically signed by:Manjinder Hernandes. Transcribed by: [email or web address], User Resident: Electronically Signed by: MANJINDER HERNANDES @ 04/18/2017 12:20 PM Normal [facility] Comment on above: Order Comment: No: D o not add to previous draw BASIC METABOLIC PANELon 03-30 Calcium 8.9 mg/dL Normal 8.6-10.3 [facility] Comment on above: Order Comment: No: D o not add to previous draw Performed By: #### 1 0070, 01343, 92103, 81480, 14284 ####[facility] [place] [address], [facility] Chloride 106 mmol/L Normal 98-107 [facility] Comment on above: Order Comment: No: D o not add to previous draw Performed By: #### 1 0070, 70257, 14982, 65206, 89786 ####[facility] [place] [address], [place] CO2 24 mmol/L Normal 21-31 [facility] Comment on above: Order Comment: No: D o not add to previous draw Performed By: #### 1 0070, 01334, 59978, 69594, 10307 ####[facility] Creatinine 1.17 mg/dL Normal 0.70-1.30 [facility] Comment on above: Order Comment: No: D o not add to previous draw Performed By: #### 1 0070, 67061, 76524, 96032, 34239 ####[facility] [facility] eGFR (black) mL/min/{1.73_m2} Normal >60 [facility] Comment on above: Order Comment: No: D o not add to previous draw Performed By: #### 1 0070, 44242, 13644, 80640, 55198 ####[facility] [facility] eGFR (non-black) mL/min/{1.73_m2} Normal >60 [facility] Comment on above: Order Comment: No: D o not add to previous draw Performed By: #### 1 0070, 81383, 76671, 93102, 05858 ####[facility] [facility] Glucose mass conc 94 mg/dL Normal 70-100 [facility] Comment on above: Order Comment: No: D o not add to previous draw Performed By: #### 1 0070, 73593, 14767, 60821, 52930 ####[facility] [place] [address], [facility] Potassium molar conc 4.3 mmol/L Normal 3.5-5.1 [facility] Comment on above: Order Comment: No: D o not add to previous draw Performed By: #### 1 0070, 68780, 74782, 98646, 46908 ####[facility] Sodium 138 mmol/L Normal 136-145 [facility] Comment on above: Order Comment: No: D o not add to previous draw Performed By: #### 1 0070, 56334, 12559, 72268, 74294 ####[facility] Urea nitrogen 13 mg/dL Normal 7-25 [facility] Comment on above: Order Comment: No: D o not add to previous draw Performed By: #### 1 0070, 47100, 63588, 86508, 29316 ####[facility] CBC COMPLETE BLOOD COUNTon 0 - Erythrocyte distribution width Auto Ratio (RBC) 12.0 % Normal 11.5-15.0 [facility] Comment on above: Order Comment: No: D o not add to previous draw Performed By: #### 5 0608 ####[facility] [facility] Erythrocytes (RBC) 5.49 10*6/uL Normal 4.20-5.70 [facility] Comment on above: Order Comment: No: D o not add to previous draw Performed By: #### 5 0608 ####[facility] Hematocrit (HCT) 46.9 % Normal 39.0-50.0 [facility] Comment on above: Order Comment: No: D o not add to previous draw Performed By: #### 5 0608 ####[facility] Hemoglobin mass conc (Bld) 16.2 g/dL Normal 13.0-17.0 [facility] Comment on above: Order Comment: No: D o not add to previous draw Performed By: #### 5 0608 ####[facility] MCH 29.5 pg Normal 27.0-33.0 [facility] Comment on above: Order Comment: No: D o not add to previous draw Performed By: #### 5 0608 ####[facility] MCHC mass conc (RBC) 34.5 g/dL Normal 32.0-35.0 [facility] Comment on above: Order Comment: No: D o not add to previous draw Performed By: #### 5 0608 ####[facility] [facility].[address] MCV 85.4 fL Normal 82.0-98.0 [facility] Comment on above: Order Comment: No: D o not add to previous draw Performed By: #### 5 0608 ####[facility] NRBC 0 % Normal 0-0 [facility] Comment on above: Order Comment: No: D o not add to previous draw Performed By: #### 5 0608 ####[facility] [facility] PLAT CNT 145 10*3/uL Low 150-400 [facility] Comment on above: Order Comment: No: D o not add to previous draw Performed By: #### 5 0608 ####[facility] WBC (Leukocytes) 9.8 10*3/uL Normal 4.0-10.6 [facility] Comment on above: Order Comment: No: D o not add to previous draw Performed By: #### 5 0608 ####[facility] [place] [address], [facility] CTA HEADon 04-17-2017 CTA HEAD [facility] Xyvutddzh[address] [place] [address] P atient Name: KRISHAN BURNHAM : 1965Sex: MAge: Race: NAMRN: [id number]. Location: OUTPPatient Status: IVisit #: [id number] Date: 04/16/2017 10:10:00 PMCompleted Date: 04/16/2017 11:58 PMRequesting Provider: CHEO CRAMER Attending Provider: VINI KEY FA Report Copy To: Signs & Symptoms: Level 2 Stroke Alert R side weaknessHistory: Level 2 Stroke Alert R side weaknessComments: Level 2 Stroke Alert R side weaknessExam: CTA HEADAccession #: [id number] ======CTA HEAD, CTA NECK 04/16/2017 11:58 PM [...] and chronic maxillary sinus disease Electronically signed by:Gabino Geiger. Transcribed by: [email or web address], User Resident: Electronically Signed by: GABINO GEIGER @ 04/17/2017 08:51 AM Normal [facility] Comment on above: Order Comment: Level 2 Stroke Alert R side weakness CTA NECKon 04-17-2017 CTA NECK [facility] Aqeyasoko[address] [place] [address] P atient Name: KRISHAN BURNHAM : 1965Sex: MAge: Race: NAMRN: [id number]. Location: OUTPPatient Status: IVisit #: [id number] Date: 04/16/2017 10:15:00 PMCompleted Date: 04/16/2017 11:58 PMRequesting Provider: CHEO CRAMER Attending Provider: VINI KEY FA Report Copy To: Signs & Symptoms: Level 2 Stroke Alert R side weaknessHistory: Level 2 Stroke Alert R side weaknessComments: Level 2 Stroke Alert R side weaknessExam: CTA NECKAccession #: [id number] ======CTA HEAD, CTA NECK 04/16/2017 11:58 PM [...] and chronic maxillary sinus disease Electronically signed by:Gabino Geiger. Transcribed by: [email or web address], User Resident: Electronically Signed by: GABINO GEIGER @ 04/17/2017 08:51 AM Normal [facility] Comment on above: Order Comment: Level 2 Stroke Alert R side weakness HEMOGLOBIN A1Con 04-17-2017 Glucose mass conc 105 mg/dL Normal 70-126 [facility] Comment on above: Order Comment: No: D o not add to previous draw Performed By: #### 1 0070, 74707, 53420, 19430, 62370 ####[facility] [facility].[address] Hemoglobin A1c/Hemoglobin.total mass fraction (Bld) 5.3 % Normal 4.0-6.0 [facility] Comment on above: Order Comment: No: D o not add to previous draw Performed By: #### 1 0070, 81433, 96914, 55241, 35908 ####[facility] [place] [address], [facility] LIPID PROFILEon 04-17-2017 Cholesterol 120 mg/dL Normal 120-200 [facility] Comment on above: Result Comment: CHOL ESTEROL REFERENCE RANGE:20 YEARS AND OLDER CARDIOVASCULAR RISKLess than 200 mg/dl Low Trpt923 to 239 mg/dl Borderline Vcmk585 mg/dl and greater High Risk Performed By: #### 1 0070, 97206, 60291, 93890, 82286 ####[facility] [place] [address], [facility] Cholesterol to HDL Ratio 4.8 {ratio} High .0-4.5 [facility] Comment on above: Performed By: #### 1 0070, 51697, 91169, 90411, 85949 ####[facility] HDL Cholesterol 25 mg/dL Normal 23-92 [facility] Comment on above: Result Comment: Slig ht variation in normal range could be due to gender and/or age.HDL CHOLESTEROL REFERENCE RANGE:20 years and older Cardiovascular Risk> or =60 mg/dL Pamymdmys02 TO 59 mg/dL Low Risk<40 mg/dL High Risk Performed By: #### 1 0070, 11685, 08161, 27934, 71452 ####[facility] LDL Cholesterol 65 mg/dL Normal 0-130 [facility] Comment on above: Result Comment: LDL IS A CALCULATIONLDL IS ONLY VALID IF THE TRIG IS LESS THAN 400. Performed By: #### 1 0070, 57329, 23925, 45198, 55139 ####[facility] NON-HDL CHOLESTEROL 95 mg/dL Normal [facility] Comment on above: Performed By: #### 1 0070, 41051, 37651, 18739, 17858 ####[facility] [facility] Triglyceride 152 mg/dL High 40-149 [facility] Comment on above: Result Comment: TRIG LYCERIDE REFERENCE RANGE:20 YEARS AND OLDER CARDIOVASCULAR RISKLESS THAN 150 mg/dl LOW MADO182 TO 199 mg/dl BORDERLINE ZXNG114 mg/dl AND GREATER HIGH RISK Performed By: #### 1 0070, 51829, 95139, 06717, 98508 ####[facility] [place] [address], [facility] VLDL CHOL 30 mg/dL Normal 0-40 [facility] Comment on above: Performed By: #### 1 0070, 05386, 62102, 01785, 46667 ####[facility] [place] [address], [facility] MAGNESIUM BLOODon 04-17-2017 Magnesium 1.9 mg/dL Normal 1.9-2.7 [facility] Comment on above: Order Comment: No: D o not add to previous draw Performed By: #### 1 0070, 07116, 07390, 23629, 28136 ####[facility] MRI BRAIN WO CONTRASTon 03-30 MRI BRAIN WO CONTRAST [facility] Gtebnbqol[address] [place] [address] P atient Name: KRISHAN BURNHAM : 1965Sex: MAge: Race: WhiteMRN: [id number]. Location: [id number] Status: IVisit #: [id number] Date: 04/17/2017 8:50:00 AMCompleted Date: 04/17/2017 01:57 PMRequesting Provider: ANA ZEPEDA Attending Provider: ELIER LU Report Copy To: Signs & Symptoms: OtherHistory: Patient history not availableComments: R/O CVAExam: MRI BRAIN WO CONTRASTAccession #: [id number] ======MRI BRAIN WO CONTRAST 04/17/2017 1:58 PM [...] sinuses. Electronically signed by:Kev Guallpa. Transcribed by: [email or web address], User Resident: Electronically Signed by: KEV GUALLPA @ 04/17/2017 02:10 PM Normal [facility] Comment on above: Order Comment: R/O C VA PHOSPHORUS BLOODon 8 Phosphate 4.4 mg/dL Normal 2.5-5.0 [facility] Comment on above: Order Comment: No: D o not add to previous draw Performed By: #### 1 0070, 11253, 42267, 31423, 97105 ####[facility] PROTHROMBIN TIMEon 8 INR Coag RelTime (PPP) 1.11 {INR} Normal 0.91-1.16 [facility] Comment on above: Order Comment: No: D [...] OF ACTION, CLINICALEFFECTIVENESS, AND OPTIMAL THERAPEUTIC RANGE. [id number];108:231S-246S. Performed By: #### 5 6101 ####[facility] [facility].[address] Prothrombin time (PT) Coag time (PPP) 14.4 s Normal 12.3-14.8 [facility] Comment on above: Order Comment: No: D o not add to previous draw Result Comment: ALL RESULTS MUST BE INTERPRETED WITH RESPECT TO BLOOD DRAWING ARTIFACTOR DILUTION ERROR OF ANTICOAGULANT AT THE TIME OF SAMPLING. Performed By: #### 5 6101 ####[facility] [facility] [place] [address], [facility] TROPONIN-Ion 04-17-2017 Troponin I.cardiac mass conc 0.03 ng/mL Normal 0.00-0.04 [facility] Comment on above: Order Comment: No: D o not add to previous draw Result Comment: REFE RENCE RANGES: 0.00 - 0.04 ng/ml NORMAL 0.05 - 0.50 ng/ml INDETERMINATE > 0.50 ng/ml CONSISTENT WITH AN M.I. Performed By: #### 1 0070, 17381, 59851, 46222, 10857 ####[facility] [facility] [place] [address], [facility] Testost Totalon 03-18-2017 Testoster Tot 412 ng/dL Normal [facility] Comment on above: Result [...] <30) between 19 and 39 years old. Suzan et.al. JCEM 2017,102;0103-9774. PMID: [id number].Performed At: [facility] [id number] [place], [place] [id number] Vincent PhD Ph:[phone] Performed By: #### 2 370338 ####[facility] [address] [address] Culture, urine Bacteria identified Cx Nom (U) Culture exhibits no growth. [facility] Work Phone: EP Panel Gastrointestinal pathogens panel GITA+probe (Stl) [facility] Work Phone: Vital Signs Date Time Vital Sign Value Performing Clinician Facility 12-02-2024 16:04-0400 Diastolic blood pressure 86 mm[Hg] [facility] 12-02-2024 16:04-0400 Heart rate 73 /min [facility] 12-02-2024 16:04-0400 Respiratory rate 18 /min [facility] 12-02-2024 16:04-0400 SaO2% (BldA) [Mass fraction] 98 % [facility] 12-02-2024 16:04-0400 Systolic blood pressure 141 mm[Hg] [facility] 12-02-2024 12:28-0400 Body mass index (BMI) [Ratio] 33.5 kg/m2 [facility] 12-02-2024 11:46-0400 Body height 177.8 cm [facility] 12-02-2024 11:46-0400 Body weight 105.8 kg [facility] 12-02-2024 11:15-0400 Body temperature 98 [degF] [facility] 12-02-2024 07:25-0400 Body temperature 97.5 [degF] [facility] 12-02-2024 07:25-0400 Diastolic blood pressure 72 mm[Hg] [facility] 12-02-2024 07:25-0400 Heart rate 71 /min [facility] 12-02-2024 07:25-0400 Respiratory rate 16 /min [facility] 12-02-2024 07:25-0400 SaO2% (BldA) [Mass fraction] 94 % [facility] 12-02-2024 07:25-0400 Systolic blood pressure 110 mm[Hg] [facility] 12-01-2024 23:32-0400 Body mass index (BMI) [Ratio] 33.5 kg/m2 [facility] 12-01-2024 14:38-0400 Body height 177.8 cm [facility] 12-01-2024 14:38-0400 Body weight 105.8 kg [facility] 11-25-2024 08:39-0400 Body height 180.34 cm [facility] 11-25-2024 08:39-0400 Body mass index (BMI) [Ratio] 33.3 kg/m2 [facility] 11-25-2024 08:39-0400 Body weight 108.4 kg [facility] 11-25-2024 08:39-0400 Diastolic blood pressure 77 mm[Hg] [facility] 11-25-2024 08:39-0400 Heart rate 66 /min [facility] 11-25-2024 08:39-0400 Respiratory rate 17 /min [facility] 11-25-2024 08:39-0400 SaO2% (BldA) [Mass fraction] 97 % [facility] 11-25-2024 08:39-0400 Systolic blood pressure 120 mm[Hg] [facility] 10-27-2024 17:20-0400 Body temperature 98.7 [degF] [facility] 10-27-2024 17:20-0400 Diastolic blood pressure 73 mm[Hg] [facility] 10-27-2024 17:20-0400 Heart rate 59 /min [facility] 10-27-2024 17:20-0400 Respiratory rate 16 /min [facility] 10-27-2024 17:20-0400 SaO2% (BldA) [Mass fraction] 100 % [facility] 10-27-2024 17:20-0400 Systolic blood pressure 100 mm[Hg] [facility] 10-27-2024 14:51-0400 Body height 180.34 cm [facility] 10-27-2024 14:51-0400 Body mass index (BMI) [Ratio] 33.3 kg/m2 [facility] 10-27-2024 14:51-0400 Body weight 108.5 kg [facility] 09-17-2024 14:56-0400 Body temperature 98.3 [degF] [facility] 09-17-2024 14:56-0400 Diastolic blood pressure 80 mm[Hg] [facility] 09-17-2024 14:56-0400 Heart rate 58 /min [facility] 09-17-2024 14:56-0400 Respiratory rate 14 /min [facility] 09-17-2024 14:56-0400 SaO2% (BldA) [Mass fraction] 94 % [facility] 09-17-2024 14:56-0400 Systolic blood pressure 136 mm[Hg] [facility] 09-17-2024 11:04-0400 Body height 180.34 cm [facility] 09-17-2024 11:04-0400 Body mass index (BMI) [Ratio] 33.9 kg/m2 [facility] 09-17-2024 11:04-0400 Body weight 110.3 kg [facility] 06-29-2024 22:45-0400 Diastolic Blood Pressure Non-Invasive 67 mm[Hg] CARMELA CORRALES DO [facility] 06-29-2024 22:45-0400 Heart rate 60 /min CARMELA CORRALES DO [facility] 06-29-2024 22:45-0400 Reason For Taking VItal Signs CARMELA CORRALES DO [facility] 06-29-2024 22:45-0400 Respiratory rate 18 /min CARMELA CORRALES DO [facility] 06-29-2024 22:45-0400 Systolic Blood Pressure Non-Invasive 127 mm[Hg] CARMELA CORRALES DO [facility] 06-29-2024 21:36-0400 Body temperature 97.88 [degF] CARMELA CORRALES DO [facility] 06-29-2024 21:36-0400 Body weight 108.6 kg CARMELA CORRALES DO [facility] 06-29-2024 21:36-0400 Diastolic Blood Pressure Non-Invasive 80 mm[Hg] CARMELA CORRALES DO [facility] 06-29-2024 21:36-0400 Heart rate 60 /min CARMELA CORRALES DO [facility] 06-29-2024 21:36-0400 Respiratory rate 16 /min CARMELA CORRALES DO [facility] 06-29-2024 21:36-0400 Systolic Blood Pressure Non-Invasive 144 mm[Hg] CARMELA CORRALES DO [facility] 06-01-2024 10:05-0400 Body temperature 97 [degF] Tila Reyes APRN.FURNACE SETTER Work Phone: [facility] 06-01-2024 10:05-0400 Body weight 106 kg Tila Reyes APRN.FURNACE SETTER Work Phone: [facility] 06-01-2024 10:05-0400 Diastolic blood pressure 77 mm[Hg] Tila Reyes APRN.FURNACE SETTER Work Phone: [facility] 06-01-2024 10:05-0400 Heart rate 64 /min 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.FURNACE SETTER Work Phone: [facility] 06-01-2024 10:05-0400 Respiratory rate 18 /min 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 Reyes 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.FURNACE SETTER Work Phone: [facility] 06-01-2024 10:05-0400 SaO2% (BldA) [Mass fraction] 99 % Tila Reyes APRN.FURNACE SETTER Work Phone: [facility] 06-01-2024 10:05-0400 Systolic blood pressure 143 mm[Hg] 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.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 SETTER Work Phone: [facility] 04-26-2023 11:36-0500 Body height 180.34 cm [facility] 04-26-2023 11:36-0500 Body mass index (BMI) [Ratio] 32.6 kg/m2 [facility] 04-26-2023 11:36-0500 Body temperature 98.2 [degF] [facility] 04-26-2023 11:36-0500 Body weight 106.14 kg [facility] 04-26-2023 11:36-0500 Diastolic blood pressure 82 mm[Hg] [facility] 04-26-2023 11:36-0500 Heart rate 66 /min [facility] 04-26-2023 11:36-0500 Respiratory rate 16 /min [facility] 04-26-2023 11:36-0500 SaO2% (BldA) [Mass fraction] 96 % [facility] 04-26-2023 11:36-0500 Systolic blood pressure 148 mm[Hg] [facility] 03-20-2023 15:00-0500 Body temperature 97.7 [degF] [facility] 03-20-2023 15:00-0500 Diastolic blood pressure 71 mm[Hg] [facility] 03-20-2023 15:00-0500 Heart rate 54 /min [facility] 03-20-2023 15:00-0500 Respiratory rate 13 /min [facility] 03-20-2023 15:00-0500 SaO2% (BldA) [Mass fraction] 95 % [facility] 03-20-2023 15:00-0500 Systolic blood pressure 126 mm[Hg] [facility] 03-16-2023 21:54-0500 Body mass index (BMI) [Ratio] 32.8 kg/m2 [facility] 03-16-2023 21:54-0500 Body weight 107 kg [facility] 03-16-2023 21:00-0500 Diastolic blood pressure 80 mm[Hg] [facility] 03-16-2023 21:00-0500 Heart rate 74 /min [facility] 03-16-2023 21:00-0500 Respiratory rate 16 /min [facility] 03-16-2023 21:00-0500 SaO2% (BldA) [Mass fraction] 97 % [facility] 03-16-2023 21:00-0500 Systolic blood pressure 129 mm[Hg] [facility] 03-16-2023 16:42-0500 Body height 180.34 cm [facility] 03-16-2023 16:42-0500 Body mass index (BMI) [Ratio] 33.2 kg/m2 [facility] 03-16-2023 16:42-0500 Body temperature 96.4 [degF] [facility] 03-16-2023 16:42-0500 Body weight 107.95 kg [facility] 01-12-2023 14:32-0500 Body mass index (BMI) [Ratio] 33 kg/m2 [facility] 01-12-2023 14:32-0500 Body temperature 98.6 [degF] [facility] 01-12-2023 14:32-0500 Body weight 107.5 kg [facility] 01-12-2023 14:32-0500 Diastolic blood pressure 88 mm[Hg] [facility] 01-12-2023 14:32-0500 Heart rate 72 /min [facility] 01-12-2023 14:32-0500 Respiratory rate 16 /min [facility] 01-12-2023 14:32-0500 SaO2% (BldA) [Mass fraction] 97 % [facility] 01-12-2023 14:32-0500 Systolic blood pressure 138 mm[Hg] [facility] 01-12-2023 11:45-0500 Body mass index (BMI) [Ratio] 32.5 kg/m2 [facility] 01-12-2023 10:00-0500 Body temperature 98.2 [degF] [facility] 01-12-2023 10:00-0500 Diastolic blood pressure 74 mm[Hg] [facility] 01-12-2023 10:00-0500 Heart rate 71 /min [facility] 01-12-2023 10:00-0500 SaO2% (BldA) [Mass fraction] 96 % [facility] 01-12-2023 10:00-0500 Systolic blood pressure 146 mm[Hg] [facility] 01-12-2023 03:18-0500 Body weight 106 kg [facility] 01-10-2023 20:06-0500 Body temperature 98.6 [degF] VP SITE-C Kev Lugo VP SITE Work Phone: [facility] 01-10-2023 20:06-0500 Diastolic blood pressure 79 mm[Hg] VP SITE-C Kev Lugo VP SITE Work Phone: [facility] 01-10-2023 20:06-0500 Heart rate 63 /min VP SITE-C Kev Lugo VP SITE Work Phone: [facility] 01-10-2023 20:06-0500 Respiratory rate 12 /min VP SITE-C Kev Lugo VP SITE Work Phone: [facility] 01-10-2023 20:06-0500 SaO2% (BldA) [Mass fraction] 98 % VP SITE-C Kev Lugo VP SITE Work Phone: [facility] 01-10-2023 20:06-0500 Systolic blood pressure 139 mm[Hg] VP SITE-C Kev Lugo VP SITE Work Phone: [facility] 01-10-2023 17:58-0500 Body height 180.34 cm VP SITE-C Kev Lugo VP SITE Work Phone: [facility] 01-10-2023 17:58-0500 Body mass index (BMI) [Ratio] 32.8 kg/m2 VP SITE-C Kev Lugo VP SITE Work Phone: [facility] 01-10-2023 17:58-0500 Body weight 106.6 kg VP SITE-C Kev Lugo VP SITE Work Phone: [facility] 07-04-2022 10:23-0400 Body temperature 98 [degF] VP SITE-C Kev Lugo VP SITE Work Phone: [facility] 07-04-2022 10:23-0400 Diastolic blood pressure 55 mm[Hg] VP SITE-C Kev Lugo VP SITE Work Phone: [facility] 07-04-2022 10:23-0400 Heart rate 64 /min VP SITE-C Kev Lugo VP SITE Work Phone: [facility] 07-04-2022 10:23-0400 Respiratory rate 16 /min VP SITE-C Kev Lugo VP SITE Work Phone: [facility] 07-04-2022 10:23-0400 SaO2% (BldA) [Mass fraction] 96 % VP SITE-C Kev Lugo VP SITE Work Phone: [facility] 07-04-2022 10:23-0400 Systolic blood pressure 98 mm[Hg] VP SITE-C Kev Lugo VP SITE Work Phone: [facility] 07-04-2022 08:48-0400 Body height 180.34 cm VP SITE-C Kev Lugo VP SITE Work Phone: [facility] 07-04-2022 08:48-0400 Body mass index (BMI) [Ratio] 31.9 kg/m2 VP SITE-C Kev Lugo VP SITE Work Phone: [facility] 07-04-2022 08:48-0400 Body weight 103.87 kg VP SITE-C Kev Lugo VP SITE Work Phone: [facility] 06-17-2022 09:21-0400 Body height 180.34 cm VP SITE-C Kev Lugo VP SITE Work Phone: [facility] 06-17-2022 09:21-0400 Body mass index (BMI) [Ratio] 32.3 kg/m2 VP SITE-C Kev Lugo VP SITE Work Phone: [facility] 06-17-2022 09:21-0400 Body weight 105.23 kg VP SITE-C Kev Lugo VP SITE Work Phone: [facility] 06-17-2022 09:21-0400 Diastolic blood pressure 82 mm[Hg] VP SITE-C Kev Lugo VP SITE Work Phone: [facility] 06-17-2022 09:21-0400 Heart rate 63 /min VP SITE-C Kev Lugo VP SITE Work Phone: [facility] 06-17-2022 09:21-0400 SaO2% (BldA) [Mass fraction] 96 % VP SITE-C Kev Lugo VP SITE Work Phone: [facility] 06-17-2022 09:21-0400 Systolic blood pressure 128 mm[Hg] VP SITE-C Kev Lugo VP SITE Work Phone: [facility] 05-26-2022 11:36-0400 Body height 180.34 cm [facility] 05-26-2022 11:36-0400 Body mass index (BMI) [Ratio] 32.4 kg/m2 [facility] 05-26-2022 11:36-0400 Body temperature 97.9 [degF] [facility] 05-26-2022 11:36-0400 Body weight 105.59 kg [facility] 05-26-2022 11:36-0400 Diastolic blood pressure 80 mm[Hg] [facility] 05-26-2022 11:36-0400 Heart rate 72 /min [facility] 05-26-2022 11:36-0400 Respiratory rate 20 /min [facility] 05-26-2022 11:36-0400 SaO2% (BldA) [Mass fraction] 96 % [facility] 05-26-2022 11:36-0400 Systolic blood pressure 122 mm[Hg] [facility] 03-24-2022 14:14-0500 Body temperature 98.2 [degF] VP SITE-C Kev Lugo VP SITE Work Phone: [facility] 03-24-2022 14:14-0500 Diastolic blood pressure 75 mm[Hg] VP SITE-C Kev Lugo VP SITE Work Phone: [facility] 03-24-2022 14:14-0500 Heart rate 74 /min VP SITE-C Kev Lugo VP SITE Work Phone: [facility] 03-24-2022 14:14-0500 Respiratory rate 16 /min VP SITE-C Kev Lugo VP SITE Work Phone: [facility] 03-24-2022 14:14-0500 SaO2% (BldA) [Mass fraction] 99 % VP SITE-C Kev Lugo VP SITE Work Phone: [facility] 03-24-2022 14:14-0500 Systolic blood pressure 119 mm[Hg] VP SITE-C Kev Lugo VP SITE Work Phone: [facility] 03-24-2022 09:18-0500 Body height 180.34 cm VP SITE-C Kev Lugo VP SITE Work Phone: [facility] 03-24-2022 09:18-0500 Body mass index (BMI) [Ratio] 32.5 kg/m2 VP SITE-C Kev Lugo VP SITE Work Phone: [facility] 03-24-2022 09:18-0500 Body weight 106 kg VP SITE-C Kev Lugo VP SITE Work Phone: [facility] 01-14-2022 18:31-0500 Diastolic blood pressure 73 mm[Hg] VP SITE-C Kev Lugo VP SITE Work Phone: [facility] 01-14-2022 18:31-0500 Heart rate 88 /min VP SITE-C Kev Lugo VP SITE Work Phone: [facility] 01-14-2022 18:31-0500 Respiratory rate 15 /min VP SITE-C Kev Lugo VP SITE Work Phone: [facility] 01-14-2022 18:31-0500 SaO2% (BldA) [Mass fraction] 99 % VP SITE-C Kev Lugo VP SITE Work Phone: [facility] 01-14-2022 18:31-0500 Systolic blood pressure 126 mm[Hg] VP SITE-C Kev Lugo VP SITE Work Phone: [facility] 01-14-2022 14:28-0500 Body height 180.34 cm VP SITE-C Kev Lugo VP SITE Work Phone: [facility] Work Phone: 01-14-2022 14:28-0500 Body mass index (BMI) [Ratio] 31.5 kg/m2 VP SITE-C Kev Lugo VP SITE Work Phone: [facility] 01-14-2022 14:28-0500 Body temperature 97.1 [degF] VP SITE-C Kev Lugo VP SITE Work Phone: [facility] 01-14-2022 14:28-0500 Body weight 102.6 kg VP SITE-C Kev Lugo VP SITE Work Phone: [facility] 12-02-2021 09:25-0400 Body temperature 97.8 [degF] VP SITE-C Kev Lugo VP SITE Work Phone: [facility] 12-02-2021 09:25-0400 Diastolic blood pressure 74 mm[Hg] VP SITE-C Kev Lugo VP SITE Work Phone: [facility] 12-02-2021 09:25-0400 Heart rate 67 /min VP SITE-C Kev Lugo VP SITE Work Phone: [facility] 12-02-2021 09:25-0400 Respiratory rate 14 /min VP SITE-C Kev Lugo VP SITE Work Phone: [facility] 12-02-2021 09:25-0400 SaO2% (BldA) [Mass fraction] 96 % VP SITE-C Kev Lugo VP SITE Work Phone: [facility] 12-02-2021 09:25-0400 Systolic blood pressure 118 mm[Hg] VP SITE-C Kev Lugo VP SITE Work Phone: [facility] 12-02-2021 05:07-0400 Body weight 100.3 kg VP SITE-C Kev Lugo VP SITE Work Phone: [facility] 12-01-2021 22:17-0400 Body mass index (BMI) [Ratio] 31.1 kg/m2 VP SITE-C Kev Lugo VP SITE Work Phone: [facility] 12-01-2021 11:32-0400 Body height 180.34 cm VP SITE-C Kev Lugo VP SITE Work Phone: [facility] Work Phone: 11-30-2021 17:03-0400 Body temperature 97.9 [degF] VP SITE-C Kev Lugo VP SITE Work Phone: [facility] Work Phone: 11-30-2021 17:03-0400 Heart rate 69 /min VP SITE-C Kev Lugo VP SITE Work Phone: [facility] Work Phone: 11-30-2021 17:03-0400 Respiratory rate 14 /min VP SITE-C Kev Lugo VP SITE Work Phone: [facility] Work Phone: 11-30-2021 17:03-0400 SaO2% (BldA) [Mass fraction] 96 % VP SITE-C Kev Lugo VP SITE Work Phone: [facility] Work Phone: 11-30-2021 17:01-0400 Diastolic blood pressure 85 mm[Hg] VP SITE-C Kev Lugo VP SITE Work Phone: [facility] Work Phone: 11-30-2021 17:01-0400 Systolic blood pressure 133 mm[Hg] VP SITE-C Kev Lugo VP SITE Work Phone: [facility] Work Phone: 11-30-2021 15:55-0400 Body height 180.34 cm VP SITE-C Kev Lugo VP SITE Work Phone: [facility] Work Phone: 11-30-2021 15:55-0400 Body mass index (BMI) [Ratio] 29.3 kg/m2 VP SITE-C Kev Lugo VP SITE Work Phone: [facility] Work Phone: 11-30-2021 15:55-0400 Body weight 95.5 kg VP SITE-C Kev Lugo VP SITE Work Phone: [facility] Work Phone: 11-30-2021 10:08-0400 Body temperature 98.1 [degF] VP SITE-C Kev Lugo VP SITE Work Phone: [facility] 11-30-2021 10:08-0400 Body weight 102.22 kg VP SITE-C Kev Lugo VP SITE Work Phone: [facility] 11-30-2021 10:08-0400 Diastolic blood pressure 84 mm[Hg] VP SITE-C Kev Lugo VP SITE Work Phone: [facility] 11-30-2021 10:08-0400 Heart rate 72 /min VP SITE-C Kev Lugo VP SITE Work Phone: [facility] 11-30-2021 10:08-0400 Respiratory rate 16 /min VP SITE-C Kev Lugo VP SITE Work Phone: [facility] 11-30-2021 10:08-0400 SaO2% (BldA) [Mass fraction] 97 % VP SITE-C Kev Lugo VP SITE Work Phone: [facility] 11-30-2021 10:08-0400 Systolic blood pressure 138 mm[Hg] VP SITE-C Kev Lugo VP SITE Work Phone: [facility] 09-20-2021 10:29-0400 Body height 180.[address] Di Walden Work Phone: [facility] Work Phone: 09-20-2021 10:29-0400 Body mass index (BMI) [Ratio] 31.6 kg/m2 Dr. Di Walden Work Phone: [facility] Work Phone: 09-20-2021 10:29-0400 Body temperature 98 [degF] Dr. Di Walden Work Phone: [facility] Work Phone: 09-20-2021 10:29-0400 Body weight 102.[address] Di Walden Work Phone: [facility] Work Phone: 09-20-2021 10:29-0400 Diastolic blood pressure 82 mm[Hg] Dr. Di Walden Work Phone: [facility] Work Phone: 09-20-2021 10:29-0400 Heart rate 68 /min Dr. Di Walden Work Phone: [facility] Work Phone: 09-20-2021 10:29-0400 Respiratory rate 16 /min Dr. Di Walden Work Phone: [facility] Work Phone: 09-20-2021 10:29-0400 SaO2% (BldA) [Mass fraction] 97 % Dr. Di Walden Work Phone: [facility] Work Phone: 09-20-2021 10:29-0400 Systolic blood pressure 128 mm[Hg] Dr. Di Walden Work Phone: [facility] Work Phone: 08-04-2021 19:32-0400 Diastolic blood pressure 82 mm[Hg] Dr. Di Walden Work Phone: [facility] Work Phone: 08-04-2021 19:32-0400 Heart rate 75 /min Dr. Di Walden Work Phone: [facility] Work Phone: 08-04-2021 19:32-0400 Respiratory rate 18 /min Dr. Di Walden Work Phone: [facility] Work Phone: 08-04-2021 19:32-0400 SaO2% (BldA) [Mass fraction] 97 % Dr. Di Walden Work Phone: [facility] Work Phone: 08-04-2021 19:32-0400 Systolic blood pressure 140 mm[Hg] Dr. Di Walden Work Phone: [facility] Work Phone: 08-04-2021 16:12-0400 Body height 180.[address] Di Walden Work Phone: [facility] Work Phone: 08-04-2021 16:12-0400 Body mass index (BMI) [Ratio] 33.9 kg/m2 Dr. Di Walden Work Phone: [facility] Work Phone: 08-04-2021 16:12-0400 Body temperature 98.8 [degF] Dr. Di Walden Work Phone: [facility] Work Phone: 08-04-2021 16:12-0400 Body weight 110.[address] Di Walden Work Phone: [facility] Work Phone: 07-08-2021 10:15-0400 Body mass index (BMI) [Ratio] 34.9 kg/m2 Dr. Di Walden Work Phone: [facility] Work Phone: 07-08-2021 10:15-0400 Body temperature 98.4 [degF] Dr. Di Walden Work Phone: [facility] Work Phone: 07-08-2021 10:15-0400 Body weight 113.[address] Di Walden Work Phone: [facility] Work Phone: 07-08-2021 10:15-0400 Diastolic blood pressure 68 mm[Hg] Dr. Di Walden Work Phone: [facility] Work Phone: 07-08-2021 10:15-0400 Heart rate 84 /min Dr. Di Walden Work Phone: [facility] Work Phone: 07-08-2021 10:15-0400 Respiratory rate 14 /min Dr. Di Walden Work Phone: [facility] Work Phone: 07-08-2021 10:15-0400 SaO2% (BldA) [Mass fraction] 97 % Dr. Di Walden Work Phone: [facility] Work Phone: 07-08-2021 10:15-0400 Systolic blood pressure 122 mm[Hg] Dr. Di Walden Work Phone: [facility] Work Phone: 07-08-2021 10:15-0400 Body height 180.[address] Di Walden Work Phone: [facility] Work Phone: 07-08-2021 10:15-0400 Body mass index (BMI) [Ratio] 34.9 kg/m2 Dr. Di Walden Work Phone: [facility] Work Phone: 07-08-2021 10:15-0400 Body temperature 98.4 [degF] Dr. Di Walden Work Phone: [facility] Work Phone: 07-08-2021 10:15-0400 Body weight 113.[address] Di Walden Work Phone: [facility] Work Phone: 07-08-2021 10:15-0400 Diastolic blood pressure 68 mm[Hg] Dr. Di Walden Work Phone: [facility] Work Phone: 07-08-2021 10:15-0400 Heart rate 84 /min Dr. Di Walden Work Phone: [facility] Work Phone: 07-08-2021 10:15-0400 Respiratory rate 14 /min Dr. Di Walden Work Phone: [facility] Work Phone: 07-08-2021 10:15-0400 SaO2% (BldA) [Mass fraction] 97 % Dr. Di Walden Work Phone: [facility] Work Phone: 07-08-2021 10:15-0400 Systolic blood pressure 122 mm[Hg] Dr. Di Walden Work Phone: [facility] Work Phone: 03-19-2021 08:22-0500 Body mass index (BMI) [Ratio] 0.4 kg/m2 Dr. iD Walden Work Phone: [facility] Work Phone: 03-19-2021 08:22-0500 Body temperature 98.2 [degF] Dr. Di Walden Work Phone: [facility] Work Phone: 03-19-2021 08:22-0500 Body weight 113.[address] Di Walden Work Phone: [facility] Work Phone: 03-19-2021 08:22-0500 Diastolic blood pressure 86 mm[Hg] Dr. Di Walden Work Phone: [facility] Work Phone: 03-19-2021 08:22-0500 Heart rate 75 /min Dr. Di Walden Work Phone: [facility] Work Phone: 03-19-2021 08:22-0500 Respiratory rate 14 /min Dr. Di Walden Work Phone: [facility] Work Phone: 03-19-2021 08:22-0500 SaO2% (BldA) [Mass fraction] 97 % Dr. Di Walden Work Phone: [facility] Work Phone: 03-19-2021 08:22-0500 Systolic blood pressure 128 mm[Hg] Dr. Di Walden Work Phone: [facility] Work Phone: 08-12-2019 16:44-0400 BMI (Body Mass Index) 32.65 kg/m2 Panchito Delatorre [facility] Work Phone: 08-12-2019 16:44-0400 Body Temperature 97.9 [degF] Panchito Delatorre [facility] Work Phone: 08-12-2019 16:44-0400 Body weight 106.17 kg Panchito Tavallaee RR-Hyxjgwm-Ztl land Work Phone: 08-12-2019 16:44-0400 BP Diastolic 82 mm[Hg] Panchito Tavallaee TD-Bmemymw-Ihg land Work Phone: 08-12-2019 16:44-0400 BP Systolic 136 mm[Hg] Panchito Tavallaee XG-Vmtzxyl-Iji land Work Phone: 08-12-2019 16:44-0400 BSA (Body Surface Area) 2.25 m2 Panchito Tavallaee AB-Xxnprkz-Jgcigkg Work Phone: 08-12-2019 16:44-0400 Height 180.34 cm Panchito Tavallaee IV-Wwkmzty-Toj land Work Phone: 08-12-2019 16:44-0400 Pulse (Heart Rate) 82 /min Panchito Tavallaee [facility] [place] Work Phone: 08-12-2019 16:44-0400 Pulse Oximetry 96 % Panchito Tavallaee UE-Tfueqwa-Hqt land Work Phone: 08-12-2019 16:44-0400 Respiratory Rate 16 /min Panchito Tavallaee LA-Ijyctwh-Wl [place] Work Phone: 08-12-2019 11:26-0400 BMI (Body Mass Index) 33.05 kg/m2 Panchito Tavallaee PO-Goephlk-Lxdplyf Work Phone: 08-12-2019 11:26-0400 Body weight 107.5 kg Panchito Tavallaee RE-Ldrpbve-Pbm land Work Phone: 08-12-2019 11:26-0400 BP Diastolic 62 mm[Hg] Panchito Tavallaee TE-Kyvnieq-Adt land Work Phone: 08-12-2019 11:26-0400 BP Systolic 154 mm[Hg] Panchito Tavallaee TM-Chxywjq-Orz land Work Phone: 08-12-2019 11:26-0400 BSA (Body Surface Area) 2.[address]-Tirigsx-Xsrywgv Work Phone: 08-12-2019 11:26-0400 Height 180.34 cm Panchito Rodrigueze TK-Jomnzhs-Cmn land Work Phone: 08-12-2019 11:26-0400 Pulse (Heart Rate) 115 /min Panchito Delatorre -[facility] [place] Work Phone: 04-26-2019 12:10-0500 BMI (Body Mass Index) 35.98 kg/m2 Thuy Hannah [facility] Work Phone: 04-26-2019 12:10-0500 Body weight 117.03 kg Thuy Hannah [facility] Work Phone: 04-26-2019 12:10-0500 BP Diastolic 84 mm[Hg] Thuy Hannah [facility] Work Phone: 04-26-2019 12:10-0500 BP Systolic 136 mm[Hg] Thuy Hannah [facility] Work Phone: 04-26-2019 12:10-0500 BSA (Body Surface Area) 2.35 m2 Thuy Hannah [facility] Work Phone: 04-26-2019 12:10-0500 Height 180.34 cm Thuy Hannah [facility] Work Phone: 04-26-2019 12:10-0500 Pulse (Heart Rate) 76 /min Thuy Hannah [facility] Work Phone: 07-04-2018 11:50-0400 BP Diastolic 68 mm[Hg] Josias Vigesaa [facility] 07-04-2018 11:50-0400 BP Systolic 102 mm[Hg] Josias Vigesaa [facility] 07-04-2018 11:50-0400 Pulse (Heart Rate) 57 /min Josias Vigesaa [facility] 07-04-2018 11:50-0400 Pulse Oximetry 95 % Josias Singh [facility] 07-04-2018 09:50-0400 Respiratory Rate 18 /min Josias Singh [facility] 07-04-2018 07:26-0400 BMI (Body Mass Index) 33.91 kg/m2 Josias Singh [facility] 07-04-2018 07:26-0400 Height 182.9 cm Josias Singh [facility] 07-04-2018 07:26-0400 [facility] 113.4 [facility] 07:20-0400 Body Temperature 97.9 [degF] [facility] 02-01-2017 15:11-0500 BP Diastolic 77 mm[Hg] Nivia Cazares [facility] Work Phone: 02-01-2017 15:11-0500 BP Systolic 133 mm[Hg] Nivia Cazares [facility] Work Phone: 02-01-2017 15:11-0500 Pulse (Heart Rate) 66 /min Nivia Cazares [facility] Work Phone: 02-01-2017 15:09-0500 BMI (Body Mass Index) 35.55 kg/m2 Nivia Cazares [facility] Work Phone: 02-01-2017 15:09-0500 Height 180.3 cm Nivia Cazares [facility] Work Phone: 02-01-2017 15:09-0500 Respiratory Rate 16 /min Nivia Cazares [facility] Work Phone: 02-01-2017 15:09-0500 Weight 115.62 kg Nivia Cazares [facility] Work Phone: Encounters Encounter Date Encounter Type Care Provider Facility Start: 12-10-2024 ambulatory [facility] Facility:[facility] Start: 12-02-2024 Non-patient / Non-visit Dr. Temi william MD -[place] [facility] Work Phone: Start: 12-01-2024 End: 12-02-2024 ambulatory Temi Katz Facility:[facility] Start: 12-01-2024 End: 12-02-2024 Evaluation and management of inpatient Dr. Temi Katz MD -[facility] Work Phone: Start: 12-01-2024 End: 12-02-2024 observation encounter [facility] Start: 11-25-2024 End: 11-25-[address] Jay Chavez MD [facility] Work Phone: Start: 11-25-2024 End: 11-25-2024 ambulatory [facility] Start: 10-27-2024 End: 10-27-2024 [facility] Start: 09-17-2024 End: 09-17-2024 [facility] Start: 06-29-2024 End: 06-30-2024 Emergency department patient visit CARMELA CORRALES DO [facility] Start: 06-01-2024 End: 06-01-2024 ambulatory [facility] Start: 06-01-2024 End: 06-01-2024 Patient encounter procedure Tila Reyes APRN.[employer]NA[employer]TER Work Phone: [facility] Comment on above: Rhinosinusitis (Prim bar Dx) Start: 04-26-2023 End: 04-26-2023 ambulatory [facility] Work Phone: Start: 04-26-2023 End: 04-26-2023 Patient encounter procedure [facility]-Laboratory, Specimen Work Phone: Start: 04-26-2023 End: 04-26-2023 Patient encounter procedure [facility] Work Phone: Start: 03-20-2023 Non-patient / Non-visit [facility] Start: 03-19-2023 Non-patient / Non-visit [facility] Start: 03-19-2023 Non-patient / Non-visit [facility] Work Phone: Start: 03-18-2023 Non-patient / Non-visit [facility] Start: 03-18-2023 Non-patient / Non-visit [facility] [facility] Work Phone: Start: 03-17-2023 End: 03-20-2023 Evaluation and management of inpatient [facility] Work Phone: Start: 03-17-2023 Non-patient / Non-visit [facility] Start: 03-16-2023 End: 03-16-2023 Non-patient / Non-visit [facility] Work Phone: Start: 03-16-2023 Evaluation and management of inpatient [facility] Work Phone: Start: 03-16-2023 Non-patient / Non-visit [facility] [facility] Work Phone: Start: 03-16-2023 observation encounter [facility] Work Phone: Start: 01-12-2023 End: 01-12-2023 Patient encounter procedure [facility] Work Phone: Start: 01-12-2023 Non-patient / Non-visit [facility] [facility] Work Phone: Start: 01-11-2023 Non-patient / Non-visit [facility] Start: 01-11-2023 Non-patient / Non-visit [facility] [facility] Work Phone: Start: 01-10-2023 End: 01-12-2023 Evaluation and management of inpatient [facility] Kev Lugo NP Work Phone: [facility]-Intensive Care Unit Work Phone: Start: 10-18-2022 End: 10-18-2022 Discharged Recurring [facility]C Kev Lugo VP SITE Work Phone: [facility]-Physical Therapy Work Phone: Start: 09-16-2022 End: 09-16-2022 Patient encounter procedure [facility]C Kev Lugo VP SITE Work Phone: [facility] Work Phone: Start: 08-11-2022 End: 11-25-2022 Physical therapy management JAKE MCMAHON MD [facility] Start: 07-04-2022 Non-patient / Non-visit [facility] Gisela Lugo VP SITE Work Phone: [facility] Start: 07-04-2022 End: 07-04-2022 Admission to same day surgery center [facility]C Kev Lugo VP SITE Work Phone: [facility]-Endoscopy Start: 07-04-2022 End: 07-04-2022 ambulatory [facility]C Kev Lugo VP SITE Work Phone: [facility] Work Phone: Start: 06-18-2022 End: 06-18-2022 ambulatory [facility]C Kev Lugo VP SITE Work Phone: [facility] Work Phone: Start: 06-18-2022 End: 06-18-2022 Patient encounter procedure [facility]C Kev Lugo VP SITE Work Phone: [facility]-Laboratory, Specimen Start: 06-17-2022 End: 06-17-2022 ambulatory [facility]C Kev Lugo VP SITE Work Phone: [facility] Work Phone: Start: 06-17-2022 End: 06-17-2022 Patient encounter procedure [facility]C Kev Lugo VP SITE [facility] Start: 05-26-2022 End: 05-26-2022 Emergency department patient visit [facility]Emergency Department Start: 03-24-2022 End: 03-24-2022 Emergency department patient visit [facility]C Kev Brittney VP SITE Work Phone: [facility]-Emergency Department Start: 01-31-2022 End: 01-31-2022 ambulatory [facility]C Kev Lugo VP SITE Work Phone: [facility] Work Phone: Start: 01-31-2022 End: 01-31-2022 Patient encounter procedure [facility]C Kev Lugo VP SITE [facility] [place] Start: 01-14-2022 End: 01-14-2022 Emergency department patient visit [facility]-C Kev Lugo VP SITE Work Phone: [facility]-Emergency Department Start: 01-13-2022 End: 01-13-2022 Patient encounter procedure VP SITE-C Kev Lugo VP SITE Work Phone: [facility] Start: 01-05-2022 End: 01-05-2022 ambulatory VP SITE-C Kev Lugo VP SITE Work Phone: [facility] Work Phone: Start: 01-05-2022 End: 01-05-2022 Patient encounter procedure VP SITE-C Kev Lugo VP SITE Work Phone: [facility] Start: 12-08-2021 Registered Referred VP SITE-C Kev Lugo VP SITE Work Phone: [facility] Start: 12-08-2021 Non-patient / Non-visit VP SITE-C Gisela Lugo VP SITE Work Phone: [facility] Start: 12-02-2021 Non-patient / Non-visit VP SITE-C Gisela Lugo VP SITE Work Phone: [facility] Start: 12-01-2021 Non-patient / Non-visit VP SITE-C Gisela mccauleysunil Lugo VP SITE Work Phone: [facility] Start: 12-01-2021 Non-patient / Non-visit VP SITE-C Gisela mccauleysunil Lugo VP SITE Work Phone: [facility] Start: 12-01-2021 Non-patient / Non-visit VP SITE-C Gisela adame Brittney VP SITE Work Phone: [facility] Start: 11-30-2021 End: 12-02-2021 Evaluation and management of inpatient VP SITE-C Kev Lugo VP SITE Work Phone: [facility] Start: 11-30-2021 End: 11-30-2021 ambulatory VP SITE-C Kev Lugo VP SITE Work Phone: [facility] Work Phone: Start: 11-30-2021 End: 11-30-2021 Patient encounter procedure VP SITE-C Kev Lugo VP SITE Work Phone: [facility] Start: 09-20-2021 End: 09-20-2021 Encounter for other preprocedural examination Dr. Di Walden Work Phone: [facility] Start: 09-20-2021 End: 09-20-[address] Di Walden Work Phone: [facility] Start: 08-04-2021 End: 08-04-2021 Emergency department patient visit Dr. Di Walden Work Phone: [facility] Start: 07-13-2021 End: 07-13-[address] Di Walden Work Phone: [facility] Start: 07-09-2021 End: 07-09-[address] [facility] Start: 07-08-2021 Non-patient / Non-visit Dr. Kalani Walden Work Phone: [facility] Start: 07-08-2021 End: 07-08-[address] Di Walden Work Phone: [facility] Start: 07-08-2021 End: 07-08-[address] Di Walden Work Phone: [facility] Start: 03-19-2021 End: 03-19-[address] Di Walden [facility] Start: 09-25-2020 Chart Update Thuy Hannah Work Phone: [facility] Work Phone: Start: 09-23-2020 Phys/qhp telephone evaluation 11-20 min Thuy Hannah Work Phone: [facility] Work Phone: Start: 09-10-2020 Office outpatient vi sit 15 minutes Thuy Hannah Work Phone: [facility] Work Phone: Start: 05-13-2020 End: 05-13-2020 Orders Only Mehnaz Genevieve Price Work Phone: [facility] Start: 08-12-2019 Patient encounter procedure Panchito Tavallaee FR-Yoeeykj-Hkyevur Work Phone: Start: 07-30-2019 Patient encounter procedure Panchito Tavallaee LG-Duuncws-Gaxrdsc Work Phone: Start: 07-08-2019 Patient encounter procedure Panchito Tavallaee TW-Ayfzhnd-Umapjwz Work Phone: Start: 06-10-2019 Patient encounter procedure Panchito Tavallaee PH-Pqclgne-Hiiwcsg Work Phone: Start: 05-21-2019 Patient encounter procedure Thuy Hannah [facility] Work Phone: Start: 04-26-2019 Patient encounter procedure Thuy Hannah [facility] Medicine Work Phone: Start: 08-14-2018 End: 08-17-2018 Patient encounter procedure [facility] Start: 07-04-2018 End: 07-04-2018 Patient encounter procedure JOSIAS REYNOLDS [facility] Start: 07-04-2018 End: 07-04-2018 Patient encounter procedure Josias Reynolds [facility] Work Phone: [facility] Start: 06-28-2018 End: 06-29-2018 Patient encounter procedure KENDELL Escobedo [facility] Start: 02-10-2018 End: 02-10-2018 Emergency department patient visit Fernando Beaulieu Facility:[facility] Start: 12-29-2017 End: 01-01-2018 Patient encounter procedure [facility] Start: 12-09-2017 End: 12-09-2017 Emergency department patient visit [facility] Start: 09-21-2017 End: 09-21-2017 Patient encounter [facility]umaro Mariscal [facility] Start: 07-27-2017 End: 07-28-2017 Patient encounter Laci Bains Facility:[facility] Start: 06-05-2017 End: 06-06-2017 Patient encounter Gumaro Mariscal [facility] Start: 04-19-2017 End: 04-19-2017 Patient encounter MANGO ESPINAL Facility:[facility] Start: 04-17-2017 End: 04-18-2017 Evaluation and management of inpatient PROVIDER UNKNOWN [facility] Start: 04-13-2017 End: 04-13-2017 Patient encounter MANGO ESPINAL Facility:[facility] Start: 04-05-2017 Patient encounter procedure Alejandra Cazares Facility:[facility] Start: 03-17-2017 End: 03-18-2017 Patient encounter MANGO ESPINAL Facility:[facility] Start: 03-08-2017 End: 03-09-2017 Patient encounter MANGO ESPINAL Facility:[facility] Start: 02-01-2017 End: 02-01-2017 Ambulatory SOHAIL GAMBINO [facility] Start: 02-01-2017 Office outpatient ne w 30 minutes Sohail Gambino Work Phone: [facility] Start: 01-30-2017 [facility] Start: 12-19-2016 End: 12-20-2016 Ambulatory DEFAULT PHYSICIAN [facility] Patient encounter procedure Thuy Granado Hannah Work Phone: [facility] Work Phone: Procedures Date Procedure Procedure Detail Performing Clinician Start: 12-02-2024 Estimated creatinine clearance [facility] Start: 12-01-2024 MRI of brain without contrast [facility] Start: 12-01-2024 Urnls dip stick/tabl et reagent auto microscopy [facility] Start: 12-01-2024 CT angiography of he ad and neck [facility] Start: 12-01-2024 CT of head without contrast [facility] Start: 10-27-2024 Computed tomography of abdomen and pelvis with intravenous contrast [facility] Start: 10-27-2024 Estimated creatinine clearance [facility] Start: 10-27-2024 Urnls dip stick/tabl et reagent auto microscopy [facility] Start: 09-17-2024 CT of thorax, abdome n and pelvis with contrast [facility] Start: 09-17-2024 Estimated creatinine clearance [facility] Start: 04-26-2023 SARS-CoV-2, Influenz a & RSV (PCR) [facility] Start: 03-17-2023 Cardiovascular stres s test using pharmacologic stress agent [facility] Start: 03-16-2023 Plain chest X-ray [facility] Start: 01-11-2023 MRI of brain without contrast [facility] Start: 01-11-2023 Plain x-ray of wrist [facility] Start: 01-10-2023 Plain chest X-ray VP SITE-C Kev Lugo VP SITE Work Phone: Start: 01-10-2023 CT of head without contrast VP SITE-C Kev Lugo VP SITE Work Phone: Start: 01-10-2023 CT angiography of he ad and neck VP SITE-C Kev Linaresder VP SITE Work Phone: Start: 07-04-2022 Colonoscopy VP SITE-C Kev Linaresder VP SITE Work Phone: Start: 05-26-2022 CT of abdomen and pe lvis without contrast Start: 03-24-2022 Computed tomography of abdomen and pelvis with intravenous contrast VP SITE-C Kev Linaresder VP SITE Work Phone: Start: 03-24-2022 Plain chest X-ray VP SITE-C Kev Linaresder VP SITE Work Phone: Start: 01-14-2022 Computed tomography of abdomen and pelvis with intravenous contrast VP SITE-C Kev Linaresder VP SITE Work Phone: Start: 12-01-2021 MRI of brain without contrast VP SITE-C Kev Lugo VP SITE Work Phone: Start: 11-30-2021 Plain chest X-ray VP SITE-C Kev Linaresder VP SITE Work Phone: Start: 11-30-2021 CT angiography of he ad and neck VP SITE-C Kev Lugo VP SITE Work Phone: Start: 11-30-2021 CT of head without contrast VP SITE-C Kev Linaresder VP SITE Work Phone: Start: 08-04-2021 Computed tomography of [...] Start: 08-14-2018 Dup-scan xtr veins unilateral/limited study STEVE BARRIOS Start: 07-04-2018 Cardiac catheterization Josias Singh Work Phone: Start: 06-28-2018 25 hydroxy includes fractions if performed [facility] Start: 06-28-2018 Assay of thyroid sti mulating hormone tsh [facility] Start: 06-28-2018 Blood typing serologic abo [facility] Start: 06-28-2018 Comprehensive metabo lic panel [facility] Start: 06-28-2018 Lipid panel [facility] Start: 06-28-2018 Lipid 1996 panel - S treva or Plasma Tila Reyes APRN.FURNACE SETTER Work Phone: Start: 12-29-2017 Myocardial spect mul tiple studies [facility] Start: 12-29-2017 Cv strs tst xers&/or rx cont ecg w/o i&r [facility] Start: 12-29-2017 Echo tthrc r-t 2d w/ wom-mode compl spec&colr d [facility] Start: 12-09-2017 Radiologic exam ches t single view [facility] Start: 12-09-2017 Ct head/brain w/o co ntrast material [facility] Start: 12-09-2017 Assay of free thyroxine [facility] Start: 12-09-2017 Assay of thyroid sti mulating hormone tsh [facility] Start: 12-09-2017 Blood count complete auto&auto difrntl wbc [facility] Start: 12-09-2017 Comprehensive metabo lic panel [facility] Start: 12-09-2017 D-DIMER, QUANTITATIVE G [facility] Start: 12-09-2017 Prothrombin time [facility] Start: 12-09-2017 T3 free mass conc [facility] Start: 12-09-2017 Thromboplastin time partial plasma/whole blood [facility] Start: 12-09-2017 Troponin I.cardiac mass conc [facility] Start: 12-09-2017 EKG 12-LEAD [facility] Start: 04-18-2017 MEASUREMENT OF PATIENT ACCOUNT REPRESENTATIVE E LECTR ACTIVITY, HEAD OF SALES AND MARKETING APPROACH SKY CARRILLO Start: 10-28-2016 Colonoscopy Thuy pennington Work Phone: Comment on above: NORMAL PER PT; Start: 02-27-2015 Cholecystectomy Thuy haines Work Phone: Start: 02-27-1982 Appendectomy Thuy Vannesa Noriega ns Work Phone: Appendectomy Thuy Hannah Comment on above: Completed: 1982 Cholecystectomy Thuy Hannah Comment on above: Completed: 2015 End: 10-28-2016 Colonoscopy Thuy Hannah [facility] Bacteriology VP SITE-C Peter Lugo VP SITE Work Phone: Enteric Bacteriology VP SITE-C Peter yeboah Lugo VP SITE Work Phone: Lactoferrin measurement VP SITE-C Kev Lugo VP SITE Work Phone: Tonsillectomy Thuy Hannah Urine culture VP SITE-C Kev Casarez r VP SITE Work Phone: Urine culture VP SITE-C Kev Casarez r VP SITE Work Phone: Plan of Treatment Date Care Activity Detail Author Start: 11-20-2027 Tetanus vaccination [facility] Start: 11-20-2027 Urine microalbumin profile DTa P,Tdap,Td Vaccine (4 - Td or Tdap) [facility] Start: 12-02-2024 Patient discharge [facility] Start: 12-02-2024 [facility] Start: 12-01-2024 Application of inter mittent pneumatic compression device [facility] Start: 12-01-2024 Following clinical p athway protocol [facility] Start: 12-01-2024 Aspiration precautions [facility] Start: 12-01-2024 Assessment of risk o f venous thromboembolism [facility] Start: 12-01-2024 Cardiac monitoring [facility] Start: 12-01-2024 Care regimes management [facility] Start: 12-01-2024 Catheterization of vein [facility] Start: 12-01-2024 Consultation [facility] Start: 12-01-2024 Continuous pulse oximetry [facility] Start: 12-01-2024 Elevation of head of bed [facility] Start: 12-01-2024 Exercises [facility] Start: 12-01-2024 Inhalation therapy procedure [facility] Start: 12-01-2024 Insertion of cathete r into peripheral vein [facility] Start: 12-01-2024 Notification of physician [facility] Start: 12-01-2024 Oxygen therapy [facility] Start: 12-01-2024 Patient referral to dietitian [facility] Start: 12-01-2024 Providing care accor ding to standard [facility] Start: 12-01-2024 Provision of activit y privileges [facility] Start: 12-01-2024 Referral for physica l therapy [facility] Start: 12-01-2024 Referral to occupati onal therapist [facility] Start: 12-01-2024 Referral to service [facility] Start: 12-01-2024 Speech therapy assessment [facility] Start: 12-01-2024 Telemedicine consult ation with patient [facility] Start: 12-01-2024 Tobacco use cessatio n education [facility] Start: 12-01-2024 End: 12-01-2024 [facility] Start: 12-01-2024 Vital signs measurements [facility] Start: 12-01-2024 MR Brain WO contrast [facility] Start: 12-01-2024 MRI of brain without contrast Brain without Contrast [facility] Start: 12-01-2024 Verification routine [facility] Start: 12-01-2024 Admission procedure [facility] Start: 12-01-2024 [facility] Start: 11-25-2024 Colonoscopy [facility] Start: 11-25-2024 [facility] Start: 10-27-2024 [facility] Start: 09-17-2024 [facility] Start: 09-17-2024 [facility] Start: 09-17-2024 [facility] Start: 08-11-2024 Prostate specific an tigen measurement Prostate Cancer Screening Discussion [facility] Start: 10-29-2023 Covid-19 Vaccine () Covid-19 Vaccine ( season) [facility] Start: 06-29-2023 Lipid panel Lipid Screening [facility] Start: 03-20-2023 Patient discharge [facility] Start: 03-20-2023 Notification of physician [facility] Start: 03-20-2023 Patient education [facility] Start: 03-20-2023 Provision of activit y privileges [facility] Start: 03-20-2023 Pulse taking [facility] Start: 03-20-2023 Taking patient vital signs [facility] Start: 03-20-2023 Wound care [facility] Start: 03-20-2023 [facility] Start: 03-18-2023 Provision of activit y privileges [facility] Start: 03-18-2023 [facility] Start: 03-17-2023 Admission procedure [facility] Start: 03-17-2023 Referral to therapy aide [facility] Start: 03-16-2023 Notification of physician [facility] Start: 03-16-2023 [facility] Start: 03-16-2023 Following clinical p athway protocol [facility] Start: 03-16-2023 Hospital admission, emergency, from emergency room, medical nature [facility] Start: 03-16-2023 Admission procedure [facility] Start: 03-16-2023 [facility] Start: 01-12-2023 Patient discharge [facility] Start: 01-11-2023 Care planning and pr oblem solving actions [facility] Start: 01-11-2023 CT Unspecified body region [facility] Start: 01-11-2023 STROKE Brain/Head wi thout Cont STROKE Brain/Head without Cont [facility] Start: 01-11-2023 Bleeding precautions [facility] Start: 01-11-2023 Thyroid stimulating hormone measurement [facility] Start: 01-11-2023 [facility] Start: 01-10-2023 Application of inter mittent pneumatic compression device [facility] Start: 01-10-2023 Following clinical p athway protocol [facility] Start: 01-10-2023 End: 01-11-2023 Troponin I measurement [facility] Start: 01-10-2023 Assessment of risk o f venous thromboembolism [facility] Start: 01-10-2023 Bedrest [facility] Start: 01-10-2023 Care regimes management [facility] Start: 01-10-2023 Consultation [facility] Start: 01-10-2023 Continuous positive airway pressure ventilation treatment [facility] Start: 01-10-2023 Continuous pulse oximetry [facility] Start: 01-10-2023 Electrocardiographic procedure [facility] Start: 01-10-2023 Incentive spirometry [facility] Start: 01-10-2023 Inhalation therapy procedure [facility] Start: 01-10-2023 Insertion of cathete r into peripheral vein [facility] Start: 01-10-2023 Introduction of urin bar catheter [facility] Start: 01-10-2023 Measuring intake and output [facility] Start: 01-10-2023 MRI of brain without contrast Brain without Contrast [facility] Start: 01-10-2023 Notification of physician [facility] Start: 01-10-2023 Oxygen therapy [facility] Start: 01-10-2023 Patient referral to dietitian [facility] Start: 01-10-2023 Providing care accor ding to standard [facility] Start: 01-10-2023 Provision of activit y privileges [facility] Start: 01-10-2023 Referral to occupati onal therapist [facility] Start: 01-10-2023 Referral to service [facility] Start: 01-10-2023 Speech therapy assessment [facility] Start: 01-10-2023 Telepractice consultation [facility] Start: 01-10-2023 Vital signs measurements [facility] Start: 01-10-2023 [facility] Start: 01-10-2023 Bleeding precautions [facility] Start: 01-10-2023 Verification routine [facility] Start: 01-10-2023 Admission procedure [facility] Start: 01-10-2023 Bleeding precautions [facility] Start: 01-10-2023 Consultation [facility] Start: 01-10-2023 Patient referral to dietitian [facility] Start: 07-04-2022 Patient discharge [facility] Start: 06-18-2022 Protein measurement [facility] Start: 03-24-2022 [facility] Start: 03-04-2022 Diabetes Screening Diabetes Screenin [facility] Start: 12-02-2021 Patient discharge [facility] Start: 12-01-2021 Care planning and pr oblem solving actions [facility] Start: 12-01-2021 [facility] Start: 11-30-2021 Application of inter mittent pneumatic compression device [facility] Start: 11-30-2021 Aspiration precautions [facility] Start: 11-30-2021 Assessment of risk o f venous thromboembolism [facility] Start: 11-30-2021 Bedrest [facility] Start: 11-30-2021 Care regimes management [facility] Start: 11-30-2021 Consultation [facility] Start: 11-30-2021 Continuous pulse oximetry [facility] Start: 11-30-2021 Elevation of head of bed [facility] Start: 11-30-2021 Fall prevention [facility] Start: 11-30-2021 Insertion of cathete r into peripheral vein [facility] Start: 11-30-2021 Measuring intake and output [facility] Start: 11-30-2021 Oxygen therapy [facility] Start: 11-30-2021 Providing care accor ding to standard [facility] Start: 11-30-2021 Provision of activit y privileges [facility] Start: 11-30-2021 Referral to occupati onal therapist [facility] Start: 11-30-2021 Referral to service [facility] Start: 11-30-2021 Speech therapy assessment [facility] Start: 11-30-2021 Vital signs measurements [facility] Start: 11-30-2021 End: 11-30-2021 [facility] Start: 11-30-2021 End: 11-30-2021 Following clinical pathway protocol [facility] Start: 11-30-2021 Verification routine [facility] Work Phone: Start: 11-30-2021 Admission procedure [facility] Start: 11-30-2021 Bleeding precautions [facility] Start: 11-30-2021 Consultation [facility] Start: 11-30-2021 Oxygen therapy [facility] Work Phone: Start: 11-30-2021 [facility] Work Phone: Start: 11-30-2021 End: 11-30-2021 [facility] Work Phone: Start: 11-30-2021 [facility] Work Phone: Start: 06-08-2021 Patient encounter procedure JASON ZAMORANO, Provider: Thuy Hannah, Status: Pen, Time: 9:20 AM [facility] Work Phone: Start: 01-28-2020 Assay of prostate sp ecific antigen total Prostate Specific Antigen TQ-Mrbkwbd-Feesze d Work Phone: Start: 01-28-2020 Assay of testosterone total Testoste kandy, Level QK-Jhwgnep-Yksxuk d Work Phone: Start: 01-28-2020 Measurement of total hemoglobin concentration and hematocrit Hemoglobin + Hematocrit IG-Uhblhpa-Wfzfjs d Work Phone: Start: 10-29-2019 Influenza vaccination given Se quential Influenza Vaccine (#1) [facility] Start: 10-28-2018 Influenza vaccination given SE QUENTIAL INFLUENZA VACCINE (Season Ended) [facility] Start: 04-05-2017 End: 04-05-2017 Ambulatory [facility] Start: 10-28-2016 Influenza vaccination SEQUENTI AL INFLUENZA VACCINE (#1) [facility] Work Phone: Start: 07-07-2015 Administration of he rpes zoster vaccine Zoster Vaccines (1 of 2) [facility] Start: 07-07-2015 Screening for malign ant neoplasm of colon [facility] Start: 2010 Screening for malign ant neoplasm of colon [facility] Start: 1984 Hepatitis B Vaccine (1 of 3 - 19+ 3-dose series) Hepatitis B Vaccine (1 of 3 - 19+ 3-dose series) [facility] Start: 07-07-1983 Anxiety Screening Anxiety Screening [facility] Start: 07-07-1983 Depression Screening Depression Scre ening [facility] Start: 07-07-1983 Hepatitis C antibody , confirmatory test Hepatitis C Screening [facility] Start: 07-07-1983 Hepatitis C screening Hepatitis C Sc reening [facility] Start: 07-07-1983 HIV screening HIV Screening [facility] Start: 1981 COVID-19 Vaccine (1 of 2) COVI D-19 Vaccine (1 of 2) [facility] Start: 1980 HIV screening HIV Screening [facility] Start: 1977 Adolescent depressio n screening assessment Depression Screening (PHQ9) [facility] Start: 1968 History and physical examination, annual for health maintenance Wellness Visit [facility] Start: 1965 Prostate specific an tigen measurement PSA Level [facility] Start: 1965 Screening colonoscopy COLONOSCOPY [facility] Work Phone: Start: 1965 Screening for malign ant neoplasm of colon Colorectal Cancer Screening: Colonoscopy [facility] Start: 1965 Tetanus vaccination TETANUS EVERY 10 YR [facility] Work Phone: Alanine aminotransfe rase [Enzymatic activity/volume] in Serum or Plasma [facility] Albumin [Mass/volume ] in Serum or Plasma [facility] Alkaline phosphatase [Enzymatic activity/volume] in Serum or Plasma [facility] Anion gap measurement [facility] Aspartate aminotrans ferase [Enzymatic activity/volume] in Serum or Plasma [facility] Bacteria identified in Urine by Culture Urine Culture [facility] Work Phone: Bilirubin, total measurement [facility] BUN/Creatinine ratio [facility] Calcium [Mass/volume ] in Serum or Plasma [facility] Carbon dioxide, tota l [Moles/volume] in Serum or Plasma [facility] Cardiac catheterization Cardiac Catheterization Routine 07/04/2018 9:24 AM EDT [facility] Cardiac event recording [facility] Work Phone: Chloride [Moles/volu me] in Serum or Plasma [facility] Cholesterol [Mass/vo lume] in Serum or Plasma [facility] Cholesterol in HDL [Mass/volume] in Serum or Plasma [facility] Cholesterol in LDL [Mass/volume] in Serum or Plasma [facility] Creatinine [Moles/vo lume] in Serum or Plasma [facility] Enteric Bacteriology Enteric Bacteriology [facility] Work Phone: Gastrointestinal pat hogens panel - Stool by GITA with probe detection [facility] Work Phone: Glucose [Mass/volume ] in Serum or Plasma [facility] Hematocrit [Volume Fraction] of Blood [facility] Hemoglobin [Mass/vol ume] in Blood [facility] Hemoglobin A1c/Hemoglobin.total in Blood [facility] Leukocytes [#/volume ] in Blood [facility] Magnesium [Mass/volu me] in Serum or Plasma [facility] Work Phone: Mean corpuscular hem oglobin concentration determination [facility] Mean corpuscular hem oglobin determination [facility] Measurement of renal function [facility] Neutrophil count [facility] Neutrophil percent differential count [facility] Patient Education [facility] Work Phone: Patient referral [facility] Work Phone: Platelets [#/volume] in Blood [facility] Potassium [Moles/vol ume] in Serum or Plasma [facility] Red blood cell count [facility] Red cell distributio n width determination [facility] Sodium [Moles/volume ] in Serum or Plasma [facility] Total protein measurement [facility] Triglycerides measurement [facility] End: 04-04-2018 Ultrasound venous insufficiency right leg Ultrasound venous insufficiency right leg Routine Varicose veins of leg with pain, right 1 Occurrences starting 02/01/2017 until 04/04/2018 [facility] Work Phone: Urea nitrogen [Mass/ volume] in Serum or Plasma [facility] VLDL cholesterol measurement [facility] NEGATED: Highlighted row has been ruled out! Planned Goals not documented [id number] Work Phone: Immunizations Immunization Date Immunization Notes Care Provider Kathia huerta 12-02-2024 influenza, seasonal, injectable, preservative free [facility] 12-02-2021 influenza, injectabl e, quadrivalent, preservative free [facility] Kev Lugo [facility] Work Phone: [facility] 12-02-2021 influenza, seasonal, injectable [facility] Kev Lugo [facility] Work Phone: [facility] 11-27-2020 Covid (Pfizer) Dr. Di Walden Work Phone: [facility] 11-27-[address] Di Walden Work Phone: [facility] 05-27-2020 Covid (Pfizer) Dr. Di Walden Work Phone: [facility] 05-16-2020 Pfizer-BioNTech COVID-19 Vacc 30 MCG/0.3ML Intramuscular Suspension Thuy Hannah Work Phone: [facility] Work Phone: 04-25-2020 Pfizer-BioNTech COVID-19 Vacc 30 MCG/0.3ML Intramuscular Suspension Thuy Hannah Work Phone: [facility] 12-10-2019 Influenza, injectabl e, Madin [facility] [employer] Canine Kidney, preservative free, quadrivalent Thuy Hannah Work Phone: [facility] Work Phone: 11-28-2019 influenza, injectabl e, quadrivalent, preservative free [facility] Kev Lugo [facility] Work Phone: [facility] 11-28-2019 influenza, seasonal, injectable Dr. Di Walden Work Phone: [facility] 12-11-2018 influenza, injectabl e, quadrivalent, preservative free Thuy Hannah Work Phone: [facility] Work Phone: 11-27-2018 influenza, seasonal, injectable Thuy Hannah Work Phone: [facility] Work Phone: Comment on above: Series: 11-27-2018 influenza, seasonal, injectable Thuy Hannha [facility] Work Phone: 12-02-2017 influenza nasal, unspecified formulation Tila Reyes APRN.FURNACE SETTER Work Phone: [facility] 12-02-2017 influenza, injectabl e, quadrivalent, preservative free Thuy D Hannah Work Phone: [facility] Work Phone: 11-19-2017 tetanus toxoid, redu madhav diphtheria toxoid, and acellular pertussis vaccine, adsorbed Thuy D Hannah Work Phone: [facility] 11-16-2015 influenza, seasonal, injectable, preservative free Thuy D Hannah Work Phone: [facility] Work Phone: 04-04-2012 tetanus toxoid, redu madhav diphtheria toxoid, and acellular pertussis vaccine, adsorbed Thuy D Hannah Work Phone: [facility] Work Phone: Payers Date Payer Category Payer Self-pay [id number] 2024 Unknown [id number] 2024 Medicare [id number] 2024 Medicare (Managed Care) [facility] MEDICARE HMO [id number] 2024 Medicare [id number] 2017 Unknown 2017 Medicare 2017 Unknown [id number] 3 2015 Medicare [id number] 3 2013 Medicare MEDICARE MEDICAR E PART A & B xxxxxxxxxx 2013-Present [place] xxxxxxxxxx [id number] 2013 Medicare [id number] 2013 Medicare MEDICARE MEDICAR E PART A & B [id number] 2013-Present [place] [id number] 1965 Unknown [id number] .174 1965 Unknown [id number] [id number] .174 1965 Unknown [id number] 2.840.1.693036.3.579.2 .174 1965 Unknown [id number] 2.840.1.112434.3.579.2 .174 1965 Unknown [id number] 2.840.1.958770.3.579.2 .174 1965 Unknown [id number] 2.840.1.957427.3.579.2 .174 1965 Unknown [id number] 2.840.1.528107.3.579.2 .174 1965 Unknown [id number] 2.840.1.646607.3.579.2 .174 1965 Unknown [id number] 2.840.1.449779.3.579.2 .903 1965 Unknown [id number] [id number] .627 Private Health Insurance [id number] Unknown [id number] [id number] .462 Unknown [id number] [id number] .462 Unknown [id number] 2.16.840.1.833483.3.579.2 .462 Unknown [id number] [id number] .462 Unknown [id number] [id number] .462 Unknown [id number] [id number] .462 Unknown [id number] .462 Social History Date Type Detail Facility Start: 02-01-2017 End: 06-01-2024 Tobacco smoking status NHIS Never smoker [facility] Work Phone: Start: 1965 Sex Assigned At Not on file [facility] Work Phone: Start: 07-04-2018 End: 12-02-2024 Tobacco smoking status AKIS Former smoker [facility] End: 07-04-2005 History of tobacco use Current smoker [facility] Start: 07-04-2018 End: 02-05-2020 Cigarettes smoked current (pack per day) - Reported [facility] Start: 07-05-2018 End: 06-01-2024 Tobacco use and exposure Never used [facility] Start: 07-05-2018 Alcohol intake 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 Tobacco smoking status [facility] Start: 02-05-2020 End: 06-01-2024 Tobacco use panel [facility] National Score (1-100), lower number is lower risk Not on file [facility] Tobacco Nicotine Use: denies. [facility] Start: 07-13-2022 Sex Male (finding) [facility] Start: 08-02-2023 Tobacco Use Tobacco Use [facility] NEGATED: Highlighted row - - -[facility] Work Phone: Medical Equipment Procedure Code Equipment Code Equipment Original Text Equipment Identifier Dates Laparoscopic-assisted sigmoidectomy OUTBOUND SALES REPRESENTATIVE,CLIP 5MM LIGAMAX FDA Start: 02-24-2020 Laparoscopic-assisted sigmoidectomy RELOAD,BLUE 60 FDA Start: 02-24-2020 Laparoscopic-assisted sigmoidectomy RELOAD,BLUE 60 FDA Start: 02-24-2020 Laparoscopic-assisted sigmoidectomy STAPLER,INTRA CDH29A ETHICON FDA Start: 02-24-2020 Laparoscopic-assisted sigmoidectomy OUTBOUND SALES REPRESENTATIVE,CLIP 5MM LIGAMAX FDA Start: 02-24-2020 Laparoscopic-assisted sigmoidectomy RELOAD,BLUE 60 FDA Start: 02-24-2020 Laparoscopic-assisted sigmoidectomy RELOAD,BLUE 60 FDA Start: 02-24-2020 Laparoscopic-assisted sigmoidectomy STAPLER,INTRA CDH29A ETHICON FDA Start: 02-24-2020 Laparoscopic-assisted sigmoidectomy OUTBOUND SALES REPRESENTATIVE,CLIP 5MM LIGAMAX FDA Start: 02-24-2020 Laparoscopic-assisted sigmoidectomy RELOAD,BLUE 60 FDA Start: 02-24-2020 Laparoscopic-assisted sigmoidectomy RELOAD,BLUE 60 FDA Start: 02-24-2020 Laparoscopic-assisted sigmoidectomy STAPLER,INTRA CDH29A ETHICON FDA Start: 02-24-2020 Laparoscopic-assisted sigmoidectomy OUTBOUND SALES REPRESENTATIVE,CLIP 5MM LIGAMAX FDA Start: 02-24-2020 Laparoscopic-assisted sigmoidectomy RELOAD,BLUE 60 FDA Start: 02-24-2020 Laparoscopic-assisted sigmoidectomy RELOAD,BLUE 60 FDA Start: 02-24-2020 Laparoscopic-assisted sigmoidectomy STAPLER,INTRA CDH29A ETHICON FDA Start: 02-24-2020 Laparoscopic-assisted sigmoidectomy OUTBOUND SALES REPRESENTATIVE,CLIP 5MM LIGAMAX FDA Start: 02-24-2020 Laparoscopic-assisted sigmoidectomy RELOAD,BLUE 60 FDA Start: 02-24-2020 Laparoscopic-assisted sigmoidectomy RELOAD,BLUE 60 FDA Start: 02-24-2020 Laparoscopic-assisted sigmoidectomy STAPLER,INTRA CDH29A ETHICON FDA Start: 02-24-2020 Laparoscopic-assisted sigmoidectomy OUTBOUND SALES REPRESENTATIVE,CLIP 5MM LIGAMAX FDA Start: 02-24-2020 Laparoscopic-assisted sigmoidectomy RELOAD,BLUE 60 FDA Start: 02-24-2020 Laparoscopic-assisted sigmoidectomy RELOAD,BLUE 60 FDA Start: 02-24-2020 Laparoscopic-assisted sigmoidectomy STAPLER,INTRA CDH29A ETHICON FDA Start: 02-24-2020 Laparoscopic-assisted sigmoidectomy OUTBOUND SALES REPRESENTATIVE,CLIP 5MM LIGAMAX FDA Start: 02-24-2020 Laparoscopic-assisted sigmoidectomy RELOAD,BLUE 60 FDA Start: 02-24-2020 Laparoscopic-assisted sigmoidectomy RELOAD,BLUE 60 FDA Start: 02-24-2020 Laparoscopic-assisted sigmoidectomy STAPLER,INTRA CDH29A ETHICON FDA Start: 02-24-2020 Laparoscopic-assisted sigmoidectomy OUTBOUND SALES REPRESENTATIVE,CLIP 5MM LIGAMAX FDA Start: 02-24-2020 Laparoscopic-assisted sigmoidectomy RELOAD,BLUE 60 FDA Start: 02-24-2020 Laparoscopic-assisted sigmoidectomy RELOAD,BLUE 60 FDA Start: 02-24-2020 Laparoscopic-assisted sigmoidectomy STAPLER,INTRA CDH29A ETHICON FDA Start: 02-24-2020 Laparoscopic-assisted sigmoidectomy OUTBOUND SALES REPRESENTATIVE,CLIP 5MM LIGAMAX FDA Start: 02-24-2020 Laparoscopic-assisted sigmoidectomy RELOAD,BLUE 60 FDA Start: 02-24-2020 Laparoscopic-assisted sigmoidectomy RELOAD,BLUE 60 FDA Start: 02-24-2020 Laparoscopic-assisted sigmoidectomy STAPLER,INTRA CDH29A ETHICON FDA Start: 02-24-2020 Laparoscopic-assisted sigmoidectomy OUTBOUND SALES REPRESENTATIVE,CLIP 5MM LIGAMAX FDA Start: 02-24-2020 Laparoscopic-assisted sigmoidectomy RELOAD,BLUE 60 FDA Start: 02-24-2020 Laparoscopic-assisted sigmoidectomy RELOAD,BLUE 60 FDA Start: 02-24-2020 Laparoscopic-assisted sigmoidectomy STAPLER,INTRA CDH29A ETHICON FDA Start: 02-24-2020 Laparoscopic-assisted sigmoidectomy OUTBOUND SALES REPRESENTATIVE,CLIP 5MM LIGAMAX FDA Start: 02-24-2020 Laparoscopic-assisted sigmoidectomy RELOAD,BLUE 60 FDA Start: 02-24-2020 Laparoscopic-assisted sigmoidectomy RELOAD,BLUE 60 FDA Start: 02-24-2020 Laparoscopic-assisted sigmoidectomy STAPLER,INTRA CDH29A ETHICON FDA Start: 02-24-2020 Laparoscopic-assisted sigmoidectomy OUTBOUND SALES REPRESENTATIVE,CLIP 5MM LIGAMAX FDA Start: 02-24-2020 Laparoscopic-assisted sigmoidectomy RELOAD,BLUE 60 FDA Start: 02-24-2020 Laparoscopic-assisted sigmoidectomy RELOAD,BLUE 60 FDA Start: 02-24-2020 Laparoscopic-assisted sigmoidectomy STAPLER,INTRA CDH29A ETHICON FDA Start: 02-24-2020 Laparoscopic-assisted sigmoidectomy OUTBOUND SALES REPRESENTATIVE,CLIP 5MM LIGAMAX FDA Start: 02-24-2020 Laparoscopic-assisted sigmoidectomy RELOAD,BLUE 60 FDA Start: 02-24-2020 Laparoscopic-assisted sigmoidectomy RELOAD,BLUE 60 FDA Start: 02-24-2020 Laparoscopic-assisted sigmoidectomy STAPLER,INTRA CDH29A ETHICON FDA Start: 02-24-2020 Laparoscopic-assisted sigmoidectomy OUTBOUND SALES REPRESENTATIVE,CLIP 5MM LIGAMAX FDA Start: 02-24-2020 Laparoscopic-assisted sigmoidectomy RELOAD,BLUE 60 FDA Start: 02-24-2020 Laparoscopic-assisted sigmoidectomy RELOAD,BLUE 60 FDA Start: 02-24-2020 Laparoscopic-assisted sigmoidectomy STAPLER,INTRA CDH29A ETHICON FDA Start: 02-24-2020 Laparoscopic-assisted sigmoidectomy OUTBOUND SALES REPRESENTATIVE,CLIP 5MM LIGAMAX FDA Start: 02-24-2020 Laparoscopic-assisted sigmoidectomy RELOAD,BLUE 60 FDA Start: 02-24-2020 Laparoscopic-assisted sigmoidectomy RELOAD,BLUE 60 FDA Start: 02-24-2020 Laparoscopic-assisted sigmoidectomy STAPLER,INTRA CDH29A ETHICON FDA Start: 02-24-2020 Laparoscopic-assisted sigmoidectomy OUTBOUND SALES REPRESENTATIVE,CLIP 5MM LIGAMAX FDA Start: 02-24-2020 Laparoscopic-assisted sigmoidectomy RELOAD,BLUE 60 FDA Start: 02-24-2020 Laparoscopic-assisted sigmoidectomy RELOAD,BLUE 60 FDA Start: 02-24-2020 Laparoscopic-assisted sigmoidectomy STAPLER,INTRA CDH29A ETHICON FDA Start: 02-24-2020 Laparoscopic-assisted sigmoidectomy OUTBOUND SALES REPRESENTATIVE,CLIP 5MM LIGAMAX FDA Start: 02-24-2020 Laparoscopic-assisted sigmoidectomy RELOAD,BLUE 60 FDA Start: 02-24-2020 Laparoscopic-assisted sigmoidectomy RELOAD,BLUE 60 FDA Start: 02-24-2020 Laparoscopic-assisted sigmoidectomy STAPLER,INTRA CDH29A ETHICON FDA Start: 02-24-2020 Laparoscopic-assisted sigmoidectomy OUTBOUND SALES REPRESENTATIVE,CLIP 5MM LIGAMAX FDA Start: 02-24-2020 Laparoscopic-assisted sigmoidectomy RELOAD,BLUE 60 FDA Start: 02-24-2020 Laparoscopic-assisted sigmoidectomy RELOAD,BLUE 60 FDA Start: 02-24-2020 Laparoscopic-assisted sigmoidectomy STAPLER,INTRA CDH29A ETHICON FDA Start: 02-24-2020 Laparoscopic-assisted sigmoidectomy OUTBOUND SALES REPRESENTATIVE,CLIP 5MM LIGAMAX FDA Start: 02-24-2020 Laparoscopic-assisted sigmoidectomy RELOAD,BLUE 60 FDA Start: 02-24-2020 Laparoscopic-assisted sigmoidectomy RELOAD,BLUE 60 FDA Start: 02-24-2020 Laparoscopic-assisted sigmoidectomy STAPLER,INTRA CDH29A ETHICON FDA Start: 02-24-2020 Laparoscopic-assisted sigmoidectomy OUTBOUND SALES REPRESENTATIVE,CLIP 5MM LIGAMAX FDA Start: 02-24-2020 Laparoscopic-assisted sigmoidectomy RELOAD,BLUE 60 FDA Start: 02-24-2020 Laparoscopic-assisted sigmoidectomy RELOAD,BLUE 60 FDA Start: 02-24-2020 Laparoscopic-assisted sigmoidectomy STAPLER,INTRA CDH29A ETHICON FDA Start: 02-24-2020 Laparoscopic-assisted sigmoidectomy OUTBOUND SALES REPRESENTATIVE,CLIP 5MM LIGAMAX FDA Start: 02-24-2020 Laparoscopic-assisted sigmoidectomy RELOAD,BLUE 60 FDA Start: 02-24-2020 Laparoscopic-assisted sigmoidectomy RELOAD,BLUE 60 FDA Start: 02-24-2020 Laparoscopic-assisted sigmoidectomy STAPLER,INTRA CDH29A ETHICON FDA Start: 02-24-2020 Laparoscopic-assisted sigmoidectomy OUTBOUND SALES REPRESENTATIVE,CLIP 5MM LIGAMAX FDA Start: 02-24-2020 Laparoscopic-assisted sigmoidectomy RELOAD,BLUE 60 FDA Start: 02-24-2020 Laparoscopic-assisted sigmoidectomy RELOAD,BLUE 60 FDA Start: 02-24-2020 Laparoscopic-assisted sigmoidectomy STAPLER,INTRA CDH29A ETHICON FDA Start: 02-24-2020 Laparoscopic-assisted sigmoidectomy OUTBOUND SALES REPRESENTATIVE,CLIP 5MM LIGAMAX FDA Start: 02-24-2020 Laparoscopic-assisted sigmoidectomy RELOAD,BLUE 60 FDA Start: 02-24-2020 Laparoscopic-assisted sigmoidectomy RELOAD,BLUE 60 FDA Start: 02-24-2020 Laparoscopic-assisted sigmoidectomy STAPLER,INTRA CDH29A ETHICON FDA Start: 02-24-2020 Closure 6fr Angioseal Vip - [id number] Start: 07-04-2018 Closure 6fr Angioseal Vip - [id number] Start: 07-04-2018 Goals Date Patient Goal Desired Activity /State Functional Status Date Assessment Result Facility 12-02-2024 Functional status Ambulates [facility] Work Phone: 06-30-2024 Functional Status Up ad berhane [facility] 06-29-2024 Functional Status Standard Safet y ID band on, Call device within reach, Bed in low position, Wheels locked, Toileting device within reach, Visitor at bedside, Safety level maintained [facility] 03-20-2023 Functional status Ambulates;Up ad berhane [facility] Work Phone: 01-12-2023 Functional status Ambulates [facility] Work Phone: 08-11-2022 Functional Status Home Living [...] 56 Activity-Specific Balance Confidence Scale (ABC): 53% [facility] 12-02-2021 Functional status Ambulates;Up a d berhane;Chair [facility] Work Phone: NEGATED: Highlighted row Functional performance Functional status health issues are not documented Disease [facility] Work Phone: Mental Status Date Assessment Result Facility 12-02-2024 Cognitive function Voice/Name [facility] Work Phone: 09-17-2024 Cognitive function Level Of Cons ciousness Awake;Alert;Appropriate ;Follows Commands [facility] Work Phone: 06-30-2024 Mental Status Orientation Orie nted x 4 [facility] 06-29-2024 Mental Status [facility] 03-20-2023 Cognitive function Voice/Name [facility] Work Phone: 03-16-2023 Cognitive function Awake;Alert;A ppropriate ;Follows Commands [facility] Work Phone: 01-12-2023 Cognitive function Voice/Name [facility] Work Phone: 01-10-2023 Cognitive function Voice/Name [facility] Work Phone: 07-04-2022 Cognitive function Voice/Name [facility] Work Phone: 07-04-2022 Cognitive function Patient [place] Person;Place;Time [facility] Work Phone: 03-24-2022 Cognitive function Voice/Name [facility] Work Phone: 12-02-2021 Cognitive function Voice/Name [facility] Work Phone: 11-30-2021 Cognitive function Voice/Name [facility] Work Phone: NEGATED: Highlighted row Cognitive function [Interpretation] Cognitive status health issues are not documented Disease [facility] Work Phone: Clinical Notes 09-10-2020 to 12-02-2024 Note Date & Type Note Facility 12-02-2024 Consult note [facility] 12-02-2024 Discharge summary [facility] 12-02-2024 Note [facility] Medical Records Department [address] [place] [address] Discharge Summary 12/02/24 1605 MR#: [id number] Acct: [id number] Name: KRISHAN BURNHAM Rep #: [id number] : 1965 59 From: Temi Katz MD PCP: [facility] Status:DIS DAVIAN Location: [facility] [id number] Providers Date of Admission: 12/01/24 Date of Discharge: 12/02/24 Primary Care Physician: [facility] Consultations 12/01/24 14:37 Consult: Tele-Neurology Routine Consulting Provider: [facility] Reason for Consult: Acute Ischemic Stroke/TIA EMERGENT Consult: No Notified: Yes Date Notified: 12/01/24 Time Notified: 14:39 Method of Notification: Answering Service Nursing Unit Staff Notify [facility] of Tele-Neurology Consult: Yes Reason For Visit: CVA R/O Diagnosis Discharge Diagnosis (1) Neurologic abnormality: Status: Acute Code(s): R29.818 - Other symptoms and signs involving the nervous system Plan # Left-sided weakness and facial paresthesias- resolved # History of CVA # Parkinson's disease #Type 2 diabetes mellitus #Hypertension #Depression/anxiety #GERD Medications at Discharge Home Medications melatonin 3 mg tablet 9 mg PO QHS SLEEP 05/12/19 trazodone 100 mg tablet 300 mg PO QHS SLEEP 05/12/19 famotidine 20 mg tablet 20 mg PO BID GERD 02/17/20 propranolol 10 mg tablet 10 mg PO BID HYPERTENSION AND ANXIETY 02/16/21 carbidopa ER 36.25 mg-levodopa 145 mg capsule,extended release (Rytary) 4 cap PO 4X/DAY Parkinsons 11/30/21 cholecalciferol (vitamin D3) 50 mcg (2,000 unit) tablet 50 mcg PO DAILY SUPPLEMENT 11/30/21 diltiazem HCl 60 mg tablet 60 mg PO BID HYPERTENSION/AGINA 11/30/21 empagliflozin 25 mg tablet (Jardiance) 25 mg PO DAILY DIABETES 11/30/21 prazosin 5 mg capsule 10 mg PO QHS HYPERTENSION 11/30/21 duloxetine 60 mg capsule,delayed release 120 mg PO DAILY DEPRESSION 03/29/22 diclofenac sodium 1 % topical gel 4 g topical BID PRN OSTEOARTHRITIS 03/16/23 gabapentin 300 mg capsule 300 mg PO QHS RESTLESS LEG SYNDROME 03/16/23 sildenafil 100 mg tablet 100 mg PO DAILY PRN sexual activity 03/16/23 pantoprazole 40 mg tablet,delayed release 40 mg PO QDAY GERD 11/25/24 rosuvastatin 20 mg tablet 20 mg PO QDAY HIGH CHOLESTEROL 11/25/24 testosterone cypionate 200 mg/mL intramuscular oil (Depo-Testosterone) 200 mg IM Q2W LOW TESTOSTERONE 11/25/24 clonazepam 1 mg tablet (Klonopin) 1 mg PO QHS PANIC DISORDER 12/01/24 hydrochlorothiazide 12.5 mg capsule 12.5 mg PO DAILY HYPERTENSION 12/01/24 quetiapine 25 mg tablet 75 mg PO QHS NIGHT TERRORS 12/01/24 aspirin 81 mg chewable tablet 81 mg PO BREAKFAST 30 days #30 tabs 12/02/24 Hospital Course Procedures Transthoracic echo Summary of Care Provided Minutes Spent on Discharge: 33 Hospital Course: Per HPI: KRISHAN BURNHAM, is a 59-year-old male history of GERD, Parkinson's, hypertension, diabetes, CVA, depression and anxiety who presented [facility] ED 12/01/2024 due to waking up with left neck pain, left-sided tunnel vision, left-sided weakness and pain with swallowing. Stroke call made in the ED. Temp 98.7, heart rate of 80, blood pressure 155/98, respirate 16 pulse ox 98% on room air. CBC unremarkable, troponin 9, BMP with bicarb of 13 and a gap of 20 with glucose 178 otherwise within normal limits CT brain and CT head and neck no acute process, teleneurology evaluated and recommended admission for stroke rule out. Hospitalist contacted for admission. Patient evaluated at bedside. Pt reportedly woke up this AM with a right sided headache, left eye tunnel vision, whole left half of his face with tingling as well as reported weakness of left upper and lower extremity but primarily was reporting increase in joint pain in all of the joints on his left side. Additionally he reported some increased difficulty swallowing, has had difficulty swallowing recently and is supposed to undergo an outpatient swallow eval but said this morning he noticed it was worse. Presently in the ED still has slight headache and reports all of the symptoms are better than they were but still present. Denies fevers or chills, does have chronic abdominal pain with intermittent diarrhea and constipation and some nausea for which she is scheduled to undergo outpatient colonoscopy and upper endoscopy. Interval history: Patient's symptoms completely resolved overnight, MRI negative for CVA. Neurology evaluated and is unclear if patient had TIA versus migraine with aura, aspirin and statin recommended and it is recommended the patient follow-up with his neurologist. Patient had echo ordered on presentation however was unable to be done this morning, when they returned to do it in the afternoon patient refused and requested discharge, patient has had a previous negative bubble study, has no new cardiac complaints or other compelling indication for emergent repeat (more content not included)... [facility] 12-02-2024 Discharge summary [facility] 12-02-2024 Consult note Note Date/Time December 02, 2024 1:40pm [facility] Medical Records Department [address] [place] [address] Consultation - Neurology 12/02/24 1114 MR#: [id number] Acct: [id number] Name: CHACHAKRISHAN JOHANNY Rep #:[id number] : 1965 59 From: Tracie Houstno MD PCP: [facility] Status:ADM DAVIAN Location: [place] [address] Assessment and Plan: Neuro Assessment/Plan KRISHAN BURNHAM is a 59 M with PD, being evaluated by Teleneurology for headache, left sided tunnelled vision and left sided facial tingling that lastedfor couple of hours and now resolved. Also complained of swallowing difficulty for at least a year that is already been worked up as an outpatient. Also complained of joint pains. Symptoms concerning for migraine with aura vs TIA. Recommend ESR,CRP given headache with visual symptoms.Doesn't endorse jaw claudication however does endorse fatigue while chewing however at this point all symptoms resolved.Complete stroke work that include Echo,MRI brain (pending),LDL,HBA1C. Continue with aspirin and statin. I personally attended this patient and spent a total time of 55 minutes evaluating this patient including clinical assessment, review of chart, medical history imaging, and determining appropriate treatment and workup. HPI Consult Data Date of Consult: 12/02/24 HPI Narrative HPI Narrative: KRISHAN BURNHAM, is a 59 M who presents with left sided tunnelled vision along withheadache and left facial tingling that lasted for couple of hours. Also complained of joint pains. Symptoms resolved on my evaluation. Also complained of difficulty swallowing that has been going on for last year and has already been worked up as an outpatient. Denies difficulty breathing. [facility] Medical History BMI 34.0-34.9,adult Left ventricular hypertrophy [...] with anxiety Abdominal pain Diverticulitis Home Medications ?Medication ?Instructions ?Recorded ?Last Taken ?Type melatonin 3 mg tablet 9 mg PO QHS SLEEP 05/12/19 0 03/15/23 History trazodone 100 mg tablet 300 mg PO QHS SLEEP 05/12/19 08/01/23 History famotidine 20 mg tablet 20 mg PO BID GERD 02/17/20 0 08/02/23 History propranolol 10 mg tablet 10 mg PO BID HYPERTENSION AN D 02/16/21 08/02/23 History ANXIETY carbidopa ER 36.25 mg-levodopa 145 4 cap PO 4X/DAY Par kinsons 11/30/21 08/02/23 History mg capsule,extended release (Rytary) cholecalciferol (vitamin D3) 50 50 mcg PO DAILY SUPPLE MENT 11/30/21 08/02/23 History mcg (2,000 unit) tablet diltiazem HCl 60 mg tablet 60 mg PO BID HYPERTENSION/A DARRYL 11/30/21 03/16/23 History empagliflozin 25 mg tablet 25 mg PO DAILY DIABETES 06/1808/02/23 History (Jardiance) prazosin 5 mg capsule 10 mg PO QHS HYPERTENSION 08/02/23 History duloxetine 60 mg capsule,delayed 120 mg PO DAILY DEPRE SSION 03/29/22 08/02/23 History release diclofenac sodium 1 % topical gel 4 g topical BID PRN OSTEOARTHRITIS 03/16/23 Unknown History gabapentin 300 mg capsule 300 mg PO QHS RESTLESS LEG S YNDROME 03/16/23 03/15/23 History sildenafil 100 mg tablet 100 mg PO DAILY PRN sexual a ctivity 03/16/23 Unknown History pantoprazole 40 mg tablet,delayed 40 mg PO QDAY GERD 0 11/25/24 Unknown History release rosuvastatin 20 mg tablet 20 mg PO QDAY HIGH CHOLESTER OL 11/25/24 Unknown History testosterone cypionate 200 mg/mL 200 mg IM Q2W LOW ANNEL TOSTERONE 11/25/24 Unknown History intramuscular oil (Depo-Testosterone) clonazepam 1 mg tablet (Klonopin) 1 mg PO QHS PANIC DI SORDER 12/01/24 Unknown History clopidogrel 75 mg tablet 75 mg PO DAILY STROKE PREVEN TION 12/01/24 Unknown History hydrochlorothiazide 12.5 mg capsule 12.5 mg PO DAILY H YPERTENSION 12/01/24 Unknown History quetiapine 25 mg tablet 75 mg PO QHS NIGHT TERRORS 1 Unknown History Allergy/AdvReac Type Severity Reaction Status Date / Time No Known Allergies Allergy Verified 12/01/24 12:27 Family History (Updated 11/25/24 @ 08:39 by [...] never substance use type: does not use Vital Signs Vital Signs Vital Signs: 12/01/24 12:26 12/01/24 12:26 12/01/24 12:28 Temperature 98.7 F Temperature Source Oral Pulse Rate 80 80 Pulse Strength Respiratory Rate 16 14 Respiratory Effort Respiratory Depth Respiratory Pattern Blood Pressure 155/90 H 155/90 H Blood Pressure Mean 111 111 Blood Pressure Source Blood Pressure Position Blood Pressure Location Pulse Ox 98 98 Oxygen Delivery Method Room Air Room Air Room Air 12/01/24 12:53 12/01/24 13:16 12/01/24 13:33 Temperature Temperature Source Pulse Rate 75 75 71 Pulse Strength Respiratory Rate 16 14 18 Respiratory Effort Respiratory Depth Respiratory Pattern Blood Pressure 153/83 H 106/74 129/76 H Blood Pressure Mean 106 84 93 Blood Pressure Source Blood Pressure Position Blood Pressure Location Pulse Ox 97 98 97 Oxygen Delivery Method Room Air Room Air Room Air 12/01/24 13:39 12/01/24 14:00 12/01/24 14:22 Temperature 98.2 F Temperature Source Pulse Rate 70 70 Pulse Strength Respiratory Rate 14 14 Respiratory Effort Normal Respiratory Depth Respiratory Pattern Normal Blood Pressure 146/84 H 155/84 H Blood Pressure Mean 104 107 Blood Pressure Source Blood Pressure Position Blood Pressure Location Pulse Ox 98 100 Oxygen Delivery Method Room Air 12/01/24 14:40 12/01/24 15:36 12/01/24 15:48 Temperature 97.9 F Temperature Source Temporal Pulse Rate 63 Pulse Strength Respiratory Rate 16 Respiratory Effort Normal Non-Labored Respiratory Depth Normal Respiratory Pattern Normal Blood Pressure 122/80 H Blood Pressure Mean 94 Blood Pressure Source Monitor Blood Pressure Position Semi-Fowlers Blood Pressure Location Left Arm Pulse Ox 97 94 Oxygen Delivery Method Room Air Nasal Cannula Room Air 12/01/24 18:30 12/01/24 22:00 12/01/24 22:00 Temperature 97.2 F L Temperature Source Temporal Pulse Rate 61 Pulse Strength Normal (2+) Respiratory Rate 15 Respiratory Effort Normal Non-Labored Respiratory Depth Normal Respiratory Pattern Normal Blood Pressure 136/79 H Blood Pressure Mean 98 Blood Pressure Source Monitor Blood Pressure Position Semi-Fowlers Blood Pressure Location Pulse Ox 98 Oxygen Delivery Method Room Air Room Air 12/01/24 22:00 12/02/24 02:00 12/02/24 03:30 Temperature 97.8 F 97.9 F Temperature Source Oral Oral Pulse Rate 65 68 Pulse Strength Respiratory Rate 16 14 Respiratory Effort Normal Non-Labored Respiratory Depth Normal Respiratory Pattern Normal Blood Pressure 128/88 H 113/70 Blood Pressure Mean 101 84 Blood Pressure Source Monitor Monitor Blood Pressure Position Semi-Fowlers Semi-Fowlers Blood Pressure Location Left Arm Left Arm Pulse Ox 97 96 Oxygen Delivery Method Room Air Room Air Room Air 12/02/24 06:00 12/02/24 07:25 12/02/24 07:58 Temperature 97.6 F L 97.5 F L Temperature Source Oral Oral Pulse Rate 68 71 Pulse Strength Respiratory Rate 14 16 Respiratory Effort Normal Non-Labored Respiratory Depth Normal Respiratory Pattern Normal Blood Pressure 101/64 110/72 Blood Pressure Mean 76 84 Blood Pressure Source Monitor Monitor Blood Pressure Position Semi-Fowlers Supine Blood Pressure Location Left Arm Pulse Ox 97 94 Oxygen Delivery Method Room Air Room Air Room Air 12/02/24 08:48 Temperature Temperature Source Pulse Rate Pulse Strength Respiratory Rate Respiratory Effort Respiratory Depth Respiratory Pattern Blood Pressure Blood Pressure Mean Blood Pressure Source Blood Pressure Position Blood Pressure Location Pulse Ox Oxygen Delivery Method Room Air Weight Weight: 105.8 kg Body Mass Index (BMI) 33.5 EEG Results Procedure Details EEG Procedure Details: KRISHAN BURNHAM is a 59 year old M with a past medical history of , who presents for evaluation of Electroencephalogram on DATE at TIME Physical Exam Neuro Neuro Narrative: -? General: Laying comfortably in bed; in no acute distress. -? HENT: Normal oropharynx and mucosa. Normal external appearance of ears and nose. Exophthalmos. -? Neck: Supple, no pain or tenderness -? CV:? No peripheral edema. -? Pulmonary:? Normal respiratory effort. -? Ext: No cyanosis, edema, or deformity -? Skin: No rash. Normal palpation of skin.? -? Musculoskeletal: full range of motion; no joint tenderness. Normal digits and nails by inspection. No clubbing. -? NEURO: -? Mental Status: The patient was alert and oriented to time, place, andperson. Normal recent/remote memory, concentration, and general fund of knowledge. -? Language: speech is fluent..? Naming, repetition, fluency, and comprehension intact. -? Cranial Nerves: PERRL 3 mm/brisk. EOMI, visual robles full, no facialasymmetry, facial sensation intact, hearing intact, tongue midline, no evidence of atrophy or fibrillations. As performed by the nurse Sternocleidomastoid and trapezius were equally strong. Soft palate raisesequally, no uvular deviations -? Motor: normal bulk, tone, and strength throughout. No pronator drift or satelliting. Upper and lower extremities equal bilaterally. Right upper extremity bradykinesia and tremor noted. l l -? Tone: is normal and bulk is normal -? Sensation- Intact to light touch bilaterally -? Coordination: No dysmetria on [id number], finger follow finger or fcto-exmj-mbne. -? Lab / Micro Data 12/02/24 05:20 12/02/24 05:20 Labs: Laboratory Results - last 24 hr 12/01/24 12:28: b-Hydroxybutyric mmol/L 0.1 12/01/24 12:30: WBC 6.3, RBC 5.32, Hgb 15.7, Hct 43.6, MCV 82.0, MCH 29.5, MCHC 36.0, RDW Std Deviation 38.3, RDW Coeff of Gail 13.2, Plt Count 158, MPV 9.4, Immature Gran % (Auto) 0.200, Neut % (Auto) 62.1, Lymph % (Auto) 25.0, [place] % (Auto) 8.4, Eos % (Auto) 3.7, Baso % (Auto) 0.6, Absolute Neuts (auto) 3.9, Absolute Lymphs (auto) 1.57, Nucleated RBC % 0, PT 12.1, INR 0.9, APTT 26.1, Sodium 135, Potassium 4.3, Chloride 102, Carbon Dioxide 13.0 L, Anion Gap 20 H, BUN 14, Creatinine 1.05, Estim Creat Clear Calc 92.15, Est GFR (MDRD) Non-Af 82,BUN/Creatinine Ratio 13.4, Glucose 178 H, Calcium 9.2, Troponin T High Sens 9 D 12/01/24 14:00: Lactic Acid < 1.0 12/01/24 14:09: Urine Color Yellow, Urine Clarity Clear, Urine pH 5.0, Ur Specific [place] 1.010, Urine Protein 15 H, Urine Glucose (UA) 1000 H, Urine Ketones 5 H, Urine Occult Blood Negative, Urine Nitrite Negative, Urine Bilirubin Negative, Urine Urobilinogen Normal, Ur Leukocyte Esterase Negative, Urine RBC 0 SEEN, Urine WBC 0 SEEN, Ur Squamous Epith Cells 0 SEEN, Urine Bacteria 0 SEEN, Urine Mucus 0 SEEN 12/01/24 16:51: POC Glucose 118 H 12/01/24 21:54: POC Glucose 123 H 12/02/24 05:20: WBC 5.9, RBC 4.71, Hgb 13.7, Hct 39.8 L, MCV 84.5, MCH 29.1, MCHC 34.4, RDW Std Deviation 39.8, RDW Coeff of Gail 13.1, Plt Count 131 L, MPV 10.0, Immature Gran % (Auto) 0.500, Neut % (Auto) 58.2, Lymph % (Auto) 26.4, [place] % (Auto) 9.6, Eos % (Auto) 4.6, Baso % (Auto) 0.7, Absolute Neuts (auto) 3.5, Absolute Lymphs (auto) 1.56, Nucleated RBC % 0, Sodium 136, Potassium 3.8, Chloride 106, Carbon Dioxide 14.7 L, Anion Gap 15, BUN 16, Creatinine 0.87, Estim Creat Clear Calc 111.36, Est GFR (MDRD) Non-Af 99, BUN/Creatinine Ratio 18.3, Glucose 142 H, Hemoglobin A1c 8.7 H, Calcium 8.5, Triglycerides 1059 H, Cholesterol 236 H, LDL Cholesterol, Calc 2, VLDL Cholesterol 212 H, HDL Cholesterol 22 L, Cholesterol/HDL Ratio 10.73 12/02/24 05:56: POC Glucose 128 H ABG Data ABG results: ABG 12/01/24 14:13 Specimen Type PETER Sample Site Not entered VBG pH 7.46 H VBG pO2 38 VBG HCO3 27 H VBG Total CO2 28 VBG O2 Sat (Calc) 76 H VBG Base Excess 3 POC Mix VBG pCO2 Pt Tmp 37.3 L O2 Delivery Device Not entered Imaging Radiology Impression Brain CT 12/01/24 12:28 IMPRESSION: No acute intracranial abnormality. No evidence of large territorial ischemic infarct. Normal CTA of the head and neck and [id number]. Stroke Alert: No acute intracranial abnormality. No large vessel occlusion. No large territorial infarct. The critical findings in the findings and impression above were relayed directlyby me by telephone to Ermias German on 12/01/2024 at 12:58 pm with readback verification. Reading Location: [facility] Head/Neck CTA 12/01/24 12:28 IMPRESSION: No acute intracranial abnormality. No evidence of large territorial ischemic infarct. Normal CTA of the head and neck and ktesjr-[id number]. Stroke Alert: No acute intracranial abnormality. No large vessel occlusion. No large territorial infarct. The critical findings in the findings and impression above were relayed directlyby me by telephone to Ermias German on 12/01/2024 at 12:58 pm with readback verification. Reading Location: [facility] Active Medications Active Medications Active Medications: Current Medications Generic Name Dose Route Start Last Admin Trade Name Freq PRN Reason Stop Dose Admin Acetaminophen 650 mg 12/01/24 14:37 Acetaminophen 325 Mg Tablet PO Q6H PRN PRN Pain 1-10 Or Fever >100.7 Albuterol Sulfate 2.5 mg 12/01/24 14:37 Albuterol 2.5 Mg/3 Ml Vial.Neb. INHALATION Q2H PRN PRN SOB &/OR WHEEZING Aspirin 81 mg 12/02/24 08:00 12/02/24 07:59 Aspirin 81 Mg Tab.Chew PO 81 mg BREAKFAST TAN Administration Atorvastatin Calcium 80 mg 12/01/24 22:00 12/01/24 22:40 Atorvastatin Calcium 80 Mg Tablet PO 80 mg QHS TAN Administration Atorvastatin Calcium 40 mg 12/02/24 22:00 Atorvastatin Calcium 40 Mg Tablet PO QHS TAN Carbidopa/Levodopa 4 each 12/01/24 18:00 12/02/24 08:43 Carbidopa/Levodopa 1 Each Capsule.Er PO 4 each 4X/DAY TAN Administration Clonazepam 1 mg 12/01/24 22:00 12/01/24 22:40 Clonazepam 1 Mg Tablet PO 1 mg QHS TAN Administration Clopidogrel Bisulfate 75 mg 12/02/24 10:00 12/02/24 08:43 Clopidogrel Bisulfate 75 Mg Tablet PO 75 mg DAILY TAN Administration Compound Med 2 click 12/01/24 22:00 12/02/24 08:41 Arthritis Pain Compound 60 Click Tube TOPICAL Not Given BID TAN Protocol Duloxetine HCl 120 mg 12/02/24 10:00 12/02/24 08:42 Duloxetine Hcl 60 Mg Capsule PO 120 mg DAILY TAN Administration Famotidine 20 mg 12/01/24 22:00 12/02/24 08:43 Famotidine 20 Mg Tablet PO 20 mg BID TAN Administration Gabapentin 300 mg 12/01/24 22:00 12/01/24 22:40 Gabapentin 300 Mg Capsule PO 300 mg QHS TAN Administration Glucagon 1 mg 12/01/24 14:37 Glucagon 1 Mg/Ml Syringe IM X1 PRN HYPOGLYCEMIA Protocol Hydralazine HCl 5 mg 12/01/24 14:37 Hydralazine 20 Mg/Ml Vial IV 12/02/24 14:37 Q30M PRN maintain BP parameters with HR <60 Dextrose 250 mls @ 0 mls/hr 12/01/24 14:37 Dextrose 10%-Water IV .Q0M PRN HYPOGLYCEMIA Protocol As Directed Sodium Chloride 250 mls @ 15 mls/hr 12/01/24 15:17 IV .[id number] PRN Saline Flush Sodium Chloride 250 mls @ 15 mls/hr 12/01/24 15:17 IV .[id number] PRN Additional IVPB Infusion Insulin Human Lispro 0 unit 12/01/24 16:00 12/02/24 06:29 Insulin Lispro 100 Unit/Ml Insuln.Pen SC Not Given ACHS TAN Protocol Labetalol HCl 20 mg 12/01/24 12:28 Labetalol 20 Mg/4 Ml Vial IV 12/02/24 12:28 X1 PRN BLOOD PRESSURE Labetalol HCl 10 - 20 mg 12/01/24 14:37 Labetalol 20 Mg/4 Ml Vial IV 12/02/24 14:37 Q10M PRN PRN maintain BP parameters with HR >/=60 Lorazepam 0.5 mg 12/01/24 14:37 Lorazepam 0.5 Mg Tablet PO X1 PRN Anxiety with MRI Melatonin 10 mg 12/01/24 14:37 Melatonin 10 Mg Tablet PO QHS PRN PRN INSOMNIA Ondansetron HCl 4 mg 12/01/24 14:37 12/02/24 08:43 Ondansetron 4 Mg/2 Ml Vial IV 4 mg Q4H PRN PRN Administration NAUSEA/VOMITING Oxycodone HCl 2.5 mg 12/01/24 14:37 Oxycodone 5 Mg Tablet PO Q4H PRN PRN Pain Score 4-10 Pantoprazole Sodium 40 mg 12/01/24 14:37 12/02/24 08:43 Pantoprazole Sodium 40 Mg Tablet PO 40 mg DAILY TAN Administration Prazosin HCl 10 mg 12/01/24 22:00 12/01/24 22:40 Prazosin Hcl 5 Mg Capsule PO 10 mg QHS TAN Administration Propranolol HCl 10 mg 12/01/24 22:00 12/02/24 08:42 Propranolol 10 Mg Tablet PO 10 mg BID TAN Administration Protocol Quetiapine Fumarate 75 mg 12/01/24 22:00 12/01/24 22:40 Quetiapine 25 Mg Tablet PO 75 mg QHS TAN Administration Protocol Senna/Docusate Sodium 2 tablet 12/01/24 14:37 Senna/Docusate Sodium 1 Tablet PO BID PRN PRN Constipation Sodium Chloride 10 - 40 ml 12/01/24 15:17 0.9% Saline Lock 10 Ml Syringe IV UD PRN SALINE FLUSH Trazodone HCl 300 mg 12/01/24 22:00 12/01/24 22:39 Trazodone 100 Mg Tablet PO 300 mg QHS TAN Administration NIHSS NIHSS Nursing Documentation NIHSS Nursing Documentation: NIHSS: Ischemic Stroke/TIA Start: 12/01/24 14:37 Text: For PCU Patients: NIH and Neuro Check every 4 Status: Active hours, PRN and with change in RN caregiver. Freq: [id number] Protocol: Activity Type Activity Date Activity User E-sign Co-sign Detail Recorded Client Recorded Date Recorded By Document 12/02/24 07:25 KG [id number] 12/02/24 07:52 KG 12/02/24 07:25 NIH Stroke Scale [NIHSS] A score of 0 is normal or asymptomatic . Total possible score is 42. Inpatient: RN or Physician to activate a stroke alert for onset of new stroke symptoms or with NIHSS increase >/= 3 points. Following change in neurological status, NIHSS will be performed per physician order or more frequently PRN. -1a. Level of Consciousness 0 - Alert; keenly responsive -1b. LOC Questions 0 - Answers BOTH questions correctly -1c. LOC Commands 0 - Performs BOTH tasks correctly -2. Best Gaze 0 - Normal -3. Visual 0 - No visual loss -4. Facial Palsy 0 - Normal symmetrical movements -5a. Left Arm 0 - No drift; arm holds 90 ( or 45) degrees for full 10 seconds -5b. Right Arm 0 - No drift; arm holds 90 ( or 45) degrees for full 10 seconds -6a. Left Leg 0 - No drift; leg holds 30- degree position for full 5 seconds -6b. Right Leg 0 - No drift; leg holds 30- degree position for full 5 seconds -7. Limb Ataxia 0 - Absent -8. Sensory 0 - Normal; no sensory loss -9. Best Language 0 - No aphasia; normal -10. Dysarthria 1 = Mild-to- moderate dysarthria; -11. Extinction and Inattention 0 - No abnormality -Total 1 Query Text:A score of 0 is normal or asymptomatic. Total possible score is 42 . ED: Notify Physician for NIHSS increase by > / = 3 points. Inpatient: RN or Physician to activate a stroke alert for NIHSS increase of > / = 3 points. Coma Scale [Assess] -Eye Opening Spontaneous -Motor Obeys Commands -Verbal Oriented [Total] -Coma Scale Total 15 12/02/24 1340 <Electronically signed by Tracie Houston MD> Cosigner Signature (if applicable): CC: [facility]~ Signed [facility] Work Phone: [phone]) 631-891210-06-2025 Consult note [facility] Medical Records Department [address] [place] [address] Consultation - Neurology 12/02/24 1114 MR#: [id number] Acct: [id number] Name: KRISHAN BURNHAM Rep #:[id number] 3 : 1965 59 From: Tracie Houston MD PCP: [facility] Status:ADM DAVIAN Location: [place] [address] Assessment and Plan: Neuro Assessment/Plan KRISHAN BURNHAM is a 59 M with PD, being evaluated by Teleneurology for headache, left sided tunnelled vision and left sided facial tingling that lastedfor couple of hours and now resolved. Also complained of swallowing difficulty for at least a year that is already been worked up as an outpatient. Also complained of joint pains. Symptoms concerning for migraine with aura vs TIA. Recommend ESR,CRP given headache with visual symptoms.Doesn't endorse jaw claudication however does endorse fatigue while chewing however at this point all symptoms resolved.Complete stroke work that include Echo,MRI brain (pending),LDL,HBA1C. Continue with aspirin and statin. I personally attended this patient and spent a total time of 55 minutes evaluating this patient including clinical assessment, review of chart, medical history imaging, and determining appropriate treatment and workup. HPI Consult Data Date of Consult: 12/02/24 HPI Narrative HPI Narrative: KRISHAN BURNHAM, is a 59 M who presents with left sided tunnelled vision along withheadache and left facial tingling that lasted for couple of hours. Also complained of joint pains. Symptoms resolved onmy evaluation. Also complained of difficulty swallowing that has been going on for last year and has already been worked up as an outpatient. Denies difficulty breathing. [facility] Medical History BMI 34.0-34.9,adult Left ventricular hypertrophy [...] with anxiety Abdominal pain Diverticulitis Home Medications ?Medication ?Instructions ?Recorded ?Last Taken ?Type melatonin 3 mg tablet 9 mg PO QHS SLEEP 05/12/19 0 03/15/23 History trazodone 100 mg tablet 300 mg PO QHS SLEEP 05/12/19 08/01/23 History famotidine 20 mg tablet 20 mg PO BID GERD 02/17/20 0 08/02/23 History propranolol 10 mg tablet 10 mg PO BID HYPERTENSION AN D 02/16/21 08/02/23 History ANXIETY carbidopa ER 36.25 mg-levodopa 145 4 cap PO 4X/DAY Par kinsons 11/30/21 08/02/23 History mg capsule,extended release (Rytary) cholecalciferol (vitamin D3) 50 50 mcg PO DAILY SUPPLE MENT 11/30/21 08/02/23 History mcg (2,000 unit) tablet diltiazem HCl 60 mg tablet 60 mg PO BID HYPERTENSION/A DARRYL 11/30/21 03/16/23 History empagliflozin 25 mg tablet 25 mg PO DAILY DIABETES 06/1808/02/23 History (Jardiance) prazosin 5 mg capsule 10 mg PO QHS HYPERTENSION 08/02/23 History duloxetine 60 mg capsule,delayed 120 mg PO DAILY DEPRE SSION 03/29/22 08/02/23 History release diclofenac sodium 1 % topical gel 4 g topical BID PRN OSTEOARTHRITIS 03/16/23 Unknown History gabapentin 300 mg capsule 300 mg PO QHS RESTLESS LEG S YNDROME 03/16/23 03/15/23 History sildenafil 100 mg tablet 100 mg PO DAILY PRN sexual a ctivity 03/16/23 Unknown History pantoprazole 40 mg tablet,delayed 40 mg PO QDAY GERD 0 11/25/24 Unknown History release rosuvastatin 20 mg tablet 20 mg PO QDAY HIGH CHOLESTER OL 11/25/24 Unknown History testosterone cypionate 200 mg/mL 200 mg IM Q2W LOW ANNEL TOSTERONE 11/25/24 Unknown History intramuscular oil (Depo-Testosterone) clonazepam 1 mg tablet (Klonopin) 1 mg PO QHS PANIC DI SORDER 12/01/24 Unknown History clopidogrel 75 mg tablet 75 mg PO DAILY STROKE PREVEN TION 12/01/24 Unknown History hydrochlorothiazide 12.5 mg capsule 12.5 mg PO DAILY H YPERTENSION 12/01/24 Unknown History quetiapine 25 mg tablet 75 mg PO QHS NIGHT TERRORS 1 Unknown History Allergy/AdvReac Type Severity Reaction Status Date / Time No Known Allergies Allergy Verified 12/01/24 12:27 Family History (Updated 11/25/24 @ 08:39 by [...] never substance use type: does not use Vital Signs Vital Signs Vital Signs: 12/01/24 12:26 12/01/24 12:26 12/01/24 12:28 Temperature 98.7 F Temperature Source Oral Pulse Rate 80 80 Pulse Strength Respiratory Rate 16 14 Respiratory Effort Respiratory Depth Respiratory Pattern Blood Pressure 155/90 H 155/90 H Blood Pressure Mean 111 111 Blood Pressure Source Blood Pressure Position Blood Pressure Location Pulse Ox 98 98 Oxygen Delivery Method Room Air Room Air Room Air 12/01/24 12:53 12/01/24 13:16 12/01/24 13:33 Temperature Temperature Source Pulse Rate 75 75 71 Pulse Strength Respiratory Rate 16 14 18 Respiratory Effort Respiratory Depth Respiratory Pattern Blood Pressure 153/83 H 106/74 129/76 H Blood Pressure Mean 106 84 93 Blood Pressure Source Blood Pressure Position Blood Pressure Location Pulse Ox 97 98 97 Oxygen Delivery Method Room Air Room Air Room Air 12/01/24 13:39 12/01/24 14:00 12/01/24 14:22 Temperature 98.2 F Temperature Source Pulse Rate 70 70 Pulse Strength Respiratory Rate 14 14 Respiratory Effort Normal Respiratory Depth Respiratory Pattern Normal Blood Pressure 146/84 H 155/84 H Blood Pressure Mean 104 107 Blood Pressure Source Blood Pressure Position Blood Pressure Location Pulse Ox 98 100 Oxygen Delivery Method Room Air 12/01/24 14:40 12/01/24 15:36 12/01/24 15:48 Temperature 97.9 F Temperature Source Temporal Pulse Rate 63 Pulse Strength Respiratory Rate 16 Respiratory Effort Normal Non-Labored Respiratory Depth Normal Respiratory Pattern Normal Blood Pressure 122/80 H Blood Pressure Mean 94 Blood Pressure Source Monitor Blood Pressure Position Semi-Fowlers Blood Pressure Location Left Arm Pulse Ox 97 94 Oxygen Delivery Method Room Air Nasal Cannula Room Air 12/01/24 18:30 12/01/24 22:00 12/01/24 22:00 Temperature 97.2 F L Temperature Source Temporal Pulse Rate 61 Pulse Strength Normal (2+) Respiratory Rate 15 Respiratory Effort Normal Non-Labored Respiratory Depth Normal Respiratory Pattern Normal Blood Pressure 136/79 H Blood Pressure Mean 98 Blood Pressure Source Monitor Blood Pressure Position Semi-Fowlers Blood Pressure Location Pulse Ox 98 Oxygen Delivery Method Room Air Room Air 12/01/24 22:00 12/02/24 02:00 12/02/24 03:30 Temperature 97.8 F 97.9 F Temperature Source Oral Oral Pulse Rate 65 68 Pulse Strength Respiratory Rate 16 14 Respiratory Effort Normal Non-Labored Respiratory Depth Normal Respiratory Pattern Normal Blood Pressure 128/88 H 113/70 Blood Pressure Mean 101 84 Blood Pressure Source Monitor Monitor Blood Pressure Position Semi-Fowlers Semi-Fowlers Blood Pressure Location Left Arm Left Arm Pulse Ox 97 96 Oxygen Delivery Method Room Air Room Air Room Air 12/02/24 06:00 12/02/24 07:25 12/02/24 07:58 Temperature 97.6 F L 97.5 F L Temperature Source Oral Oral Pulse Rate 68 71 Pulse Strength Respiratory Rate 14 16 Respiratory Effort Normal Non-Labored Respiratory Depth Normal Respiratory Pattern Normal Blood Pressure 101/64 110/72 Blood Pressure Mean 76 84 Blood Pressure Source Monitor Monitor Blood Pressure Position Semi-Fowlers Supine Blood Pressure Location Left Arm Pulse Ox 97 94 Oxygen Delivery Method Room Air Room Air Room Air 12/02/24 08:48 Temperature Temperature Source Pulse Rate Pulse Strength Respiratory Rate Respiratory Effort Respiratory Depth Respiratory Pattern Blood Pressure Blood Pressure Mean Blood Pressure Source Blood Pressure Position Blood Pressure Location Pulse Ox Oxygen Delivery Method Room Air Weight Weight: 105.8 kg Body Mass Index (BMI) 33.5 EEG Results Procedure Details EEG Procedure Details: KRISHAN BURNHAM is a 59 year old M with a past medical history of , who presents for evaluation of Electroencephalogram on DATE at TIME Physical Exam Neuro Neuro Narrative: -? General: Laying comfortably in bed; in no acute distress. -? HENT: Normal oropharynx and mucosa. Normal external appearance of ears and nose. Exophthalmos. -? Neck: Supple, no pain or tenderness -? CV:? No peripheral edema. -? Pulmonary:? Normal respiratory effort. -? Ext: No cyanosis, edema, or deformity -? Skin: No rash. Normal palpation of skin.? -? Musculoskeletal: full range of motion; no joint tenderness. Normal digits and nails by inspection. No clubbing. -? NEURO: -? Mental Status: The patient was alert and oriented to time, place, andperson. Normal recent/remote memory, concentration, and general fund of knowledge. -? Language: speech is fluent..? Naming, repetition, fluency, and comprehension intact. -? Cranial Nerves: PERRL 3 mm/brisk. EOMI, visual robles full, no facialasymmetry, facial sensation intact, hearing intact, tongue midline, no evidence of atrophy or fibrillations. As performed by the nurse Sternocleidomastoid and trapezius were equally strong. Soft palate raisesequally, no uvular deviations -? Motor: normal bulk, tone, and strength throughout. No pronator drift or satelliting. Upper and lower extremities equal bilaterally. Right upper extremity bradykinesia and tremor noted. l l -? Tone: is normal and bulk is normal -? Sensation- Intact to light touch bilaterally -? Coordination: No dysmetria on naijwu-zmrt-[id number], finger follow finger or [id number]. -? Lab / Micro Data 12/02/24 05:20 12/02/24 05:20 Labs: Laboratory Results - last 24 hr 12/01/24 12:28: b-Hydroxybutyric mmol/L 0.1 12/01/24 12:30: WBC 6.3, RBC 5.32, Hgb 15.7, Hct 43.6, MCV 82.0, MCH 29.5, MCHC 36.0, RDW Std Deviation 38.3, RDW Coeff of Gail 13.2, Plt Count 158, MPV 9.4, Immature Gran % (Auto) 0.200, Neut % (Auto) 62.1, Lymph % (Auto) 25.0, [place] % (Auto) 8.4, Eos % (Auto) 3.7, Baso % (Auto) 0.6, Absolute Neuts (auto) 3.9, Absolute Lymphs (auto) 1.57, Nucleated RBC % 0, PT 12.1, INR 0.9, APTT 26.1, Sodium 135,Potassium 4.3, Chloride 102, Carbon Dioxide 13.0 L, Anion Gap 20 H, BUN 14, Creatinine 1.05, Estim Creat Clear Calc 92.15, Est GFR (MDRD) Non-Af 82,BUN/Creatinine Ratio 13.4, Glucose 178 H, Calcium 9.2, Troponin T High Sens 9 D 12/01/24 14:00: Lactic Acid < 1.0 12/01/24 14:09: Urine Color Yellow, Urine Clarity Clear, Urine pH 5.0, Ur Specific [place] 1.010, Urine Protein 15 H, Urine Glucose (UA) 1000 H, Urine Ketones 5 H, Urine Occult Blood Negative, Urine Nitrite Negative, Urine Bilirubin Negative, Urine Urobilinogen Normal, Ur Leukocyte Esterase Negative, Urine RBC 0 SEEN, Urine WBC 0 SEEN, Ur Squamous Epith Cells 0 SEEN, Urine Bacteria 0 SEEN, Urine Mucus 0 SEEN 12/01/24 16:51: POC Glucose 118 H 12/01/24 21:54: POC Glucose 123 H 12/02/24 05:20: WBC 5.9, RBC 4.71, Hgb 13.7, Hct 39.8 L, MCV 84.5, MCH 29.1, MCHC 34.4, RDW Std Deviation 39.8, RDW Coeff of Gail 13.1, Plt Count 131 L, MPV 10.0, Immature Gran % (Auto) 0.500, Neut % (Auto) 58.2, Lymph % (Auto) 26.4, [place] % (Auto) 9.6, Eos % (Auto) 4.6, Baso % (Auto) 0.7, Absolute Neuts (auto) 3.5, Absolute Lymphs (auto) 1.56, Nucleated RBC % 0, Sodium 136, Potassium 3.8, [id number], Carbon Dioxide 14.7 L, Anion Gap 15, BUN 16, Creatinine 0.87, Estim Creat Clear Calc 111.36, Est GFR (MDRD) Non-Af 99, BUN/Creatinine Ratio 18.3, Glucose 142 H, Hemoglobin A1c 8.7 H, Calcium 8.5, Triglycerides 1059 H, Cholesterol 236 H, LDL Cholesterol, Calc 2, VLDL Cholesterol 212 H, HDL Rekha sterol 22 L, Cholesterol/HDL Ratio 10.73 12/02/24 05:56: POC Glucose 128 H ABG Data ABG results: ABG 12/01/24 14:13 Specimen Type PETER Sample Site Not entered VBG pH 7.46 H VBG pO2 38 VBG HCO3 27 H VBG Total CO2 28 VBG O2 Sat (Calc) 76 H VBG Base Excess 3 POC Mix VBG pCO2 Pt Tmp 37.3 L O2 Delivery Device Not entered Imaging Radiology Impression Brain CT 12/01/24 12:28 IMPRESSION: No acute intracranial abnormality. No evidence of large territorial ischemic infarct. Normal CTA of the head and neck and [id number]. Stroke Alert: No acute intracranial abnormality. No large vessel occlusion. No large territorial infarct. The critical findings in the findings and impression above were relayed directlyby me by telephone to Ermias German on 12/01/2024 at 12:58 pm with readback verification. Reading Location: [facility] Head/Neck CTA 12/01/24 12:28 IMPRESSION: No acute intracranial abnormality. No evidence of large territorial ischemic infarct. Normal CTA of the head and neck and [id number]. Stroke Alert: No acute intracranial abnormality. No large vessel occlusion. No large territorial infarct. The critical findings in the findings and impression above were relayed directlyby me by telephone to Ermias German on 12/01/2024 at 12:58 pm with readback verification. Reading Location: [facility] Active Medications Active Medications Active Medications: Current Medications Generic Name Dose Route Start Last Admin Trade Name Freq PRN Reason Stop Dose Admin Acetaminophen 650 mg 12/01/24 14:37 Acetaminophen 325 Mg Tablet PO Q6H PRN PRN Pain 1-10 Or Fever >100.7 Albuterol Sulfate 2.5 mg 12/01/24 14:37 Albuterol 2.5 Mg/3 Ml Vial.Neb. INHALATION Q2H PRN PRN SOB &/OR WHEEZING Aspirin 81 mg 12/02/24 08:00 12/02/24 07:59 Aspirin 81 Mg Tab.Chew PO 81 mg BREAKFAST TAN Administration Atorvastatin Calcium 80 mg 12/01/24 22:00 12/01/24 22:40 Atorvastatin Calcium 80 Mg Tablet PO 80 mg QHS TAN Administration Atorvastatin Calcium 40 mg 12/02/24 22:00 Atorvastatin Calcium 40 Mg Tablet PO QHS TAN Carbidopa/Levodopa 4 each 12/01/24 18:00 12/02/24 08:43 Carbidopa/Levodopa 1 Each Capsule.Er PO 4 each 4X/DAY TAN Administration Clonazepam 1 mg 12/01/24 22:00 12/01/24 22:40 Clonazepam 1 Mg Tablet PO 1 mg QHS TAN Administration Clopidogrel Bisulfate 75 mg 12/02/24 10:00 12/02/24 08:43 Clopidogrel Bisulfate 75 Mg Tablet PO 75 mg DAILY TAN Administration Compound Med 2 click 12/01/24 22:00 12/02/24 08:41 Arthritis Pain Compound 60 Click Tube TOPICAL Not Given BID TAN Protocol Duloxetine HCl 120 mg 12/02/24 10:00 12/02/24 08:42 Duloxetine Hcl 60 Mg Capsule PO 120 mg DAILY TAN Administration Famotidine 20 mg 12/01/24 22:00 12/02/24 08:43 Famotidine 20 Mg Tablet PO 20 mg BID TAN Administration Gabapentin 300 mg 12/01/24 22:00 12/01/24 22:40 Gabapentin 300 Mg Capsule PO 300 mg QHS TAN Administration Glucagon 1 mg 12/01/24 14:37 Glucagon 1 Mg/Ml Syringe IM X1 PRN HYPOGLYCEMIA Protocol Hydralazine HCl 5 mg 12/01/24 14:37 Hydralazine 20 Mg/Ml Vial IV 12/02/24 14:37 Q30M PRN maintain BP parameters with HR <60 Dextrose 250 mls @ 0 mls/hr 12/01/24 14:37 Dextrose 10%-Water IV .Q0M PRN HYPOGLYCEMIA Protocol As Directed Sodium Chloride 250 mls @ 15 mls/hr 12/01/24 15:17 IV .[id number] PRN Saline Flush Sodium Chloride 250 mls @ 15 mls/hr 12/01/24 15:17 IV .[id number] PRN Additional IVPB Infusion Insulin Human Lispro 0 unit 12/01/24 16:00 12/02/24 06:29 Insulin Lispro 100 Unit/Ml Insuln.Pen SC Not Given ACHS TAN Protocol Labetalol HCl 20 mg 12/01/24 12:28 Labetalol 20 Mg/4 Ml Vial IV 12/02/24 12:28 X1 PRN BLOOD PRESSURE Labetalol HCl 10 - 20 mg 12/01/24 14:37 Labetalol 20 Mg/4 Ml Vial IV 12/02/24 14:37 Q10M PRN PRN maintain BP parameters with HR >/=60 Lorazepam 0.5 mg 12/01/24 14:37 Lorazepam 0.5 Mg Tablet PO X1 PRN Anxiety with MRI Melatonin 10 mg 12/01/24 14:37 Melatonin 10 Mg Tablet PO QHS PRN PRN INSOMNIA Ondansetron HCl 4 mg 12/01/24 14:37 12/02/24 08:43 Ondansetron 4 Mg/2 Ml Vial IV 4 mg Q4H PRN PRN Administration NAUSEA/VOMITING Oxycodone HCl 2.5 mg 12/01/24 14:37 Oxycodone 5 Mg Tablet PO Q4H PRN PRN Pain Score 4-10 Pantoprazole Sodium 40 mg 12/01/24 14:37 12/02/24 08:43 Pantoprazole Sodium 40 Mg Tablet PO 40 mg DAILY TAN Administration Prazosin HCl 10 mg 12/01/24 22:00 12/01/24 22:40 Prazosin Hcl 5 Mg Capsule PO 10 mg QHS TAN Administration Propranolol HCl 10 mg 12/01/24 22:00 12/02/24 08:42 Propranolol 10 Mg Tablet PO 10 mg BID TAN Administration Protocol Quetiapine Fumarate 75 mg 12/01/24 22:00 12/01/24 22:40 Quetiapine 25 Mg Tablet PO 75 mg QHS TAN Administration Protocol Senna/Docusate Sodium 2 tablet 12/01/24 14:37 Senna/Docusate Sodium 1 Tablet PO BID PRN PRN Constipation Sodium Chloride 10 - 40 ml 12/01/24 15:17 0.9% Saline Lock 10 Ml Syringe IV UD PRN SALINE FLUSH Trazodone HCl 300 mg 12/01/24 22:00 12/01/24 22:39 Trazodone 100 Mg Tablet PO 300 mg QHS TAN Administration NIHSS NIHSS Nursing Documentation NIHSS Nursing Documentation: NIHSS: Ischemic Stroke/TIA Start: 12/01/24 14:37 Text: For PCU Patients: NIH and Neuro Check every 4 Status: Active hours, PRN and with change in RN caregiver. Freq: [id number] Protocol: Activity Type Activity Date Activity User E-sign Co-sign Detail Recorded Client Recorded Date Recorded By Document 12/02/24 07:25 KG [id number] 12/02/24 07:52 KG 12/02/24 07:25 NIH Stroke Scale [NIHSS] A score of 0 is normal or asymptomatic . Total possible score is 42. Inpatient: RN or Physician to activate a stroke alert for onset of new stroke symptoms or with NIHSS increase >/= 3 points. Following change in neurological status, NIHSS will be performed per physician order or more frequently PRN. -1a. Level of Consciousness 0 - Alert; keenly responsive -1b. LOC Questions 0 - Answers BOTH questions correctly -1c. LOC Commands 0 - Performs BOTH tasks correctly -2. Best Gaze 0 - Normal -3. Visual 0 - No visual loss -4. Facial Palsy 0 - Normal symmetrical movements -5a. Left Arm 0 - No drift; arm holds 90 ( or 45) degrees for full 10 seconds -5b. Right Arm 0 - No drift; arm holds 90 ( or 45) degrees for full 10 seconds -6a. Left Leg 0 - No drift; leg holds 30- degree position for full 5 seconds -6b. Right Leg 0 - No drift; leg holds 30- degree position for full 5 seconds -7. Limb Ataxia 0 - Absent -8. Sensory 0 - Normal; no sensory loss -9. Best Language 0 - No aphasia; normal -10. Dysarthria 1 = Mild-to- moderate dysarthria; -11. Extinction and Inattention 0 - No abnormality -Total 1 Query Text:A score of 0 is normal or asymptomatic. Total possible score is 42 . ED: Notify Physician for NIHSS increase by > / = 3 points. Inpatient: RN or Physician to activate a stroke alert for NIHSS increase of > / = 3 points. Coma Scale [Assess] -Eye Opening Spontaneous -Motor Obeys Commands -Verbal Oriented [Total] -Coma Scale Total 15 12/02/24 1340 Cosigner Signature (if applicable): CC: [facility]~ Signed [facility]10-05-2025 Discharge summary Author Ermias German [facility] Note Date/Time December 01, 2024 9: 48pm [facility] Medical Records Department [address] [place] [address] Emergency Department Summary 12/01/24 MR#: [id number] Acct: [id number] Name: KRISHAN BURNHAM Rep #:[id number] 8 : 1965 59 From: Ermias Rincon PCP: [facility] Status:ADM DAVIAN Location: [address] History of Present Illness Chief Complaint: Stroke Alert [facility] Medical History BMI 34.0-34.9,adult Left ventricular hypertrophy [...] with anxiety Abdominal pain Diverticulitis Home Medications ?Medication ?Instructions ?Recorded ?Last Taken ?Type melatonin 3 mg tablet 9 mg PO QHS SLEEP 05/12/19 0 03/15/23 History trazodone 100 mg tablet 300 mg PO QHS SLEEP 05/12/19 08/01/23 History famotidine 20 mg tablet 20 mg PO BID GERD 02/17/20 0 08/02/23 History propranolol 10 mg tablet 10 mg PO BID HYPERTENSION AN D 02/16/21 08/02/23 History ANXIETY carbidopa ER 36.25 mg-levodopa 145 4 cap PO 4X/DAY Par kinsons 11/30/21 08/02/23 History mg capsule,extended release (Rytary) cholecalciferol (vitamin D3) 50 50 mcg PO DAILY SUPPLE MENT 11/30/21 08/02/23 History mcg (2,000 unit) tablet diltiazem HCl 60 mg tablet 60 mg PO BID HYPERTENSION/A DARRYL 11/30/21 03/16/23 History empagliflozin 25 mg tablet 25 mg PO DAILY DIABETES 06/1808/02/23 History (Jardiance) prazosin 5 mg capsule 10 mg PO QHS HYPERTENSION 08/02/23 History duloxetine 60 mg capsule,delayed 120 mg PO DAILY DEPRE SSION 03/29/22 08/02/23 History release diclofenac sodium 1 % topical gel 4 g topical BID PRN OSTEOARTHRITIS 03/16/23 Unknown History gabapentin 300 mg capsule 300 mg PO QHS RESTLESS LEG S YNDROME 03/16/23 03/15/23 History sildenafil 100 mg tablet 100 mg PO DAILY PRN sexual a ctivity 03/16/23 Unknown History pantoprazole 40 mg tablet,delayed 40 mg PO QDAY GERD 0 11/25/24 Unknown History release rosuvastatin 20 mg tablet 20 mg PO QDAY HIGH CHOLESTER OL 11/25/24 Unknown History testosterone cypionate 200 mg/mL 200 mg IM Q2W LOW ANNEL TOSTERONE 11/25/24 Unknown History intramuscular oil (Depo-Testosterone) clonazepam 1 mg tablet (Klonopin) 1 mg PO QHS PANIC DI SORDER 12/01/24 Unknown History clopidogrel 75 mg tablet 75 mg PO DAILY STROKE PREVEN TION 12/01/24 Unknown History hydrochlorothiazide 12.5 mg capsule 12.5 mg PO DAILY H YPERTENSION 12/01/24 Unknown History quetiapine 25 mg tablet 75 mg PO QHS NIGHT TERRORS 1 Unknown History Allergy/AdvReac Type Severity Reaction Status Date / Time No Known Allergies Allergy Verified 12/01/24 12:27 Family History (Updated 11/25/24 @ 08:39 by [...] never substance use type: does not use EXAM Physical Exam Const Vital Signs: 12/01/24 12:26 12/01/24 12:26 12/01/24 12:28 Temperature 98.7 F Temperature Source Oral Pulse Rate 80 80 Respiratory Rate 16 14 Respiratory Effort Respiratory Pattern Blood Pressure 155/90 H 155/90 H Blood Pressure Mean 111 111 Pulse Ox 98 98 Oxygen Delivery Method Room Air Room Air Room Air 12/01/24 12:53 12/01/24 13:16 12/01/24 13:33 Temperature Temperature Source Pulse Rate 75 75 71 Respiratory Rate 16 14 18 Respiratory Effort Respiratory Pattern Blood Pressure 153/83 H 106/74 129/76 H Blood Pressure Mean 106 84 93 Pulse Ox 97 98 97 Oxygen Delivery Method Room Air Room Air Room Air 12/01/24 13:39 12/01/24 14:00 Temperature Temperature Source Pulse Rate 70 Respiratory Rate 14 Respiratory Effort Normal Respiratory Pattern Normal Blood Pressure 146/84 H Blood Pressure Mean 104 Pulse Ox 98 Oxygen Delivery Method Room Air MDM MDM MDM Narrative Medical decision making narrative: HISTORY OF PRESENT ILLNESS: Chief complaint: Speech difficulty, swallowing difficulty, left-sided weakness 59-year-old male history of CVA, Parkinson's disease, hypertension, type 2 diabetes, former smoker presents with difficulty swallowing, left-sided facial sensory changes, left upper and lower extremity weakness. Last known well was at 10:30 PM on 11/2024. No falls or trauma noted. No chest pain or headache noted REVIEW OF SYSTEMS: Pertinent positives: Left-sided weakness, difficulty swallowing Pertinent negatives: Chest pain, headache PHYSICAL EXAM: Nursing triage notes reviewed, Vital signs reviewed Constitutional: [facility] see [facility] HENT: MMM Eyes: Pupils equal round and reactive to light, Extraocular muscles intact Neck: No stridor, no JVD, full neck ROM Lungs: Clear to auscultation, No wheezing or rales. No increased work of breathing, no conversational dyspnea, no accessory muscle use, no nasal flaring. No respiratory distress noted Heart: Regular rate and rhythm, No murmurs, No rubs and No gallops, 2+ distal pulses (radial, femoral, posterior tibial) in all extremities Abdomen: Soft, there is no tenderness, rigidity, rebound or guarding, no obviousperitoneal signs, no palpable pulsatile abdominal masses, no auscultated abdominal bruit : No CVAT Extremities: No edema Neuro: Patient was alert, he was oriented, he had no obvious aphasia or dysarthria, no obvious facial drooping. His visual robles were intact and extraocular muscles were intact. He had subjective sensory changes in the left side of his face. He also had weakness and drift in left upper and lower extremity. He had no loss of coordination or ataxia. His initial NIH was 3. Skin: No rash or lesions noted MEDICAL DECISION MAKING: Chief Complaint: please see [facility] External records reviewed: Reviewed prior imaging studies: Reviewed MRI from 2023 which showed no intracranial mass, hemorrhage or acute surgical infarct Factors affecting care: As per [facility] Social determinants of health: Former smoker History obtained from others: The patient's Consults: Stroke radiology, stroke neurology, internal medicine [facility] Narrative: Patient was initially hemodynamically stable, afebrile and nontoxic-appearing. Initial NIH of 3 with left-sided subjective sensory changes and slight drift in left upper and lower extremity. Given the patient's positive NIH stroke scale and last known well within 24 hours a stroke alert was called. I considered the following differential diagnosis: Acute CVA, TIA, focal seizure, ICH, Johanny's paralysis I obtained a broad lab and imaging workup to further determine if the patient was suffering from a life-threatening etiology. ALL IMAGES (IF OBTAINED) HAVE BEEN PERSONALLY REVIEWED AND INTERPRETED BY MYSELF. EKG with normal sinus rhythm rate of 80, left ax deviation, normal intervals, noSTEMI CT scan of the brain shows no acute hemorrhage or shift CTA head and neck shows no evidence of large vessel occlusion Given last known well greater than 4-1/2 hours prior to arrival, low NIH and no sign of large vessel occlusion patient not a candidate for TNK or thrombectomy. High-sensitivity troponin is negative, no evidence of myocardial ischemia No obvious coagulopathy CBC with no leukocytosis, anemia or thrombocytopenia BMP without significant electrolyte maladies, there is a metabolic acidosis as well as elevated anion gap. There is unclear clinical significance as the patient presents with strokelike symptoms. He does not have any nausea or vomiting is not particular hyperglycemic with a blood sugar of 178. I do not suspect this related to DKA. He has no infectious signs or symptoms to suggest lactic acidosis. Will discuss this with hospitalist and continue workup as an inpatient. Discussed with stroke neurologist (Dr. Winston) Who noted no obvious ICH, mass. No obvious large vessel occlusion. Notes patient is Discussed with stroke neurologist (Dr. Hanna) who recommended no TNK or thrombectomy. He further recommended admission here was given a hospital for MRI, risk factor modification. He recommended patient continue Plavix that is already prescribed Discussed case with internal medicine physician . She agreed admit the patient to PCU observation. The patient and/or family, caregivers express understanding. The patient and/orfamily, caregivers agrees with the plan. Shared decision making: I will have a discussion with the patient and or visitors regarding risk/benefits of further testing or admission. They will be made aware of of the risk/benefits inherent in this decision they will be given the opportunity to voice understanding. Total critical care time today provided was at least 35 minutes. This excludes separately billable procedures. Critical care time (if documented) is secondary to the patient having high probability of clinically significant/life threatening deterioration in the patient's condition which required my urgent intervention. Impression: 1. Acute CVA 2. History of hypertension 3. History of hyperlipidemia Dispo: Admit to PCU This note was generated with [employer] dictation software. It may contain incorrectwords, spelling, and punctuation that were not noted in review of the chart prior to signing. Lab Data Labs: Laboratory Results - last 24 hr 12/01/24 12/01/24 12/01/24 12:28 12:30 14:00 WBC 6.3 RBC 5.32 Hgb 15.7 Hct 43.6 MCV 82.0 MCH 29.5 MCHC 36.0 RDW Std Deviation 38.3 RDW Coeff of Gail 13.2 Plt Count 158 MPV 9.4 Immature Gran % (Auto) 0.200 Neut % (Auto) 62.1 Lymph % (Auto) 25.0 [place] % (Auto) 8.4 Eos % (Auto) 3.7 Baso % (Auto) 0.6 Absolute Neuts (auto) 3.9 Absolute Lymphs (auto) 1.57 Nucleated RBC % 0 PT 12.1 INR 0.9 APTT 26.1 Sodium 135 Potassium 4.3 Chloride 102 Carbon Dioxide 13.0 L Anion Gap 20 H BUN 14 Creatinine 1.05 Estim Creat Clear Calc 92.15 Est GFR (MDRD) Non-Af 82 BUN/Creatinine Ratio 13.4 Glucose 178 H Lactic Acid < 1.0 Calcium 9.2 Troponin T High Sens 9 D b-Hydroxybutyric mmol/L 0.1 Urine Color Urine Clarity Urine pH Ur Specific [place] Urine Protein Urine Glucose (UA) Urine Ketones Urine Occult Blood Urine Nitrite Urine Bilirubin Urine Urobilinogen Ur Leukocyte Esterase Urine RBC Urine WBC Ur Squamous Epith Cells Urine Bacteria Urine Mucus 12/01/24 14:09 WBC RBC Hgb Hct MCV MCH MCHC RDW Std Deviation RDW Coeff of Gail Plt Count MPV Immature Gran % (Auto) Neut % (Auto) Lymph % (Auto) [place] % (Auto) Eos % (Auto) Baso % (Auto) Absolute Neuts (auto) Absolute Lymphs (auto) Nucleated RBC % PT INR APTT Sodium Potassium Chloride Carbon Dioxide Anion Gap BUN Creatinine Estim Creat Clear Calc Est GFR (MDRD) Non-Af BUN/Creatinine Ratio Glucose Lactic Acid Calcium Troponin T High Sens b-Hydroxybutyric mmol/L Urine Color Yellow Urine Clarity Clear Urine pH 5.0 Ur Specific [place] 1.010 Urine Protein 15 H Urine Glucose (UA) 1000 H Urine Ketones 5 H Urine Occult Blood Negative Urine Nitrite Negative Urine Bilirubin Negative Urine Urobilinogen Normal Ur Leukocyte Esterase Negative Urine RBC 0 SEEN Urine WBC 0 SEEN Ur Squamous Epith Cells 0 SEEN Urine Bacteria 0 SEEN Urine Mucus 0 SEEN Radiography Diagnostic Testing: Clinical Impression(s) from Imaging Studies Brain CT 12/01/24 12:28 IMPRESSION: No acute intracranial abnormality. No evidence of large territorial ischemic infarct. Normal CTA of the head and neck and [id number]. Stroke Alert: No acute intracranial abnormality. No large vessel occlusion. No large territorial infarct. The critical findings in the findings and impression above were relayed directlyby me by telephone to Ermias German on 12/01/2024 at 12:58 pm with readback verification. Reading Location: [facility] Head/Neck CTA 12/01/24 12:28 IMPRESSION: No acute intracranial abnormality. No evidence of large territorial ischemic infarct. Normal CTA of the head and neck and [id number]. Stroke Alert: No acute intracranial abnormality. No large vessel occlusion. No large territorial infarct. The critical findings in the findings and impression above were relayed directlyby me by telephone to Ermias German on 12/01/2024 at 12:58 pm with readback verification. Reading Location: [facility] Discharge Plan Disposition Disposition: Acute Care Hospital [facility] Discharge Date/Time: 12/01/24 14:28 What to do if you have Problems For any increased pain, shortness of breath, bleeding, nausea or vomiting, chestpain, or any unexpected problems, contact your Primary Care Provider. Call [facility] ([phone]) or report to the closest Emergency Room. Call 911 if necessary. 12/01/242147 <Electronically signed by Ermias German DO> Cosigner Signature (if applicable): CC: [facility] ~ Signed [facility] Work Phone: [phone]charge [address] [facility] Medical Records Department [address] [place] [address] Emergency Department Summary 12/01/24 MR#: [id number] Acct: [id number] Name: KRISHAN BURNHAM Rep #:[id number] : 1965 59 From: Ermias Rincon PCP: [facility] Status:ADM DAVIAN Location: [address] History of Present Illness Chief Complaint: Stroke Alert [facility] Medical History BMI 34.0-34.9,adult Left ventricular hypertrophy [...] with anxiety Abdominal pain Diverticulitis Home Medications ?Medication ?Instructions ?Recorded ?Last Taken ?Type melatonin 3 mg tablet 9 mg PO QHS SLEEP 05/12/19 0 03/15/23 History trazodone 100 mg tablet 300 mg PO QHS SLEEP 05/12/19 08/01/23 History famotidine 20 mg tablet 20 mg PO BID GERD 02/17/20 0 08/02/23 History propranolol 10 mg tablet 10 mg PO BID HYPERTENSION AN D 02/16/21 08/02/23 History ANXIETY carbidopa ER 36.25 mg-levodopa 145 4 cap PO 4X/DAY Par kinsons 11/30/21 08/02/23 History mg capsule,extended release (Rytary) cholecalciferol (vitamin D3) 50 50 mcg PO DAILY SUPPLE MENT 11/30/21 08/02/23 History mcg (2,000 unit) tablet diltiazem HCl 60 mg tablet 60 mg PO BID HYPERTENSION/A DARRYL 11/30/21 03/16/23 History empagliflozin 25 mg tablet 25 mg PO DAILY DIABETES 06/1808/02/23 History (Jardiance) prazosin 5 mg capsule 10 mg PO QHS HYPERTENSION 08/02/23 History duloxetine 60 mg capsule,delayed 120 mg PO DAILY DEPRE SSION 03/29/22 08/02/23 History release diclofenac sodium 1 % topical gel 4 g topical BID PRN OSTEOARTHRITIS 03/16/23 Unknown History gabapentin 300 mg capsule 300 mg PO QHS RESTLESS LEG S YNDROME 03/16/23 03/15/23 History sildenafil 100 mg tablet 100 mg PO DAILY PRN sexual a ctivity 03/16/23 Unknown History pantoprazole 40 mg tablet,delayed 40 mg PO QDAY GERD 0 11/25/24 Unknown History release rosuvastatin 20 mg tablet 20 mg PO QDAY HIGH CHOLESTER OL 11/25/24 Unknown History testosterone cypionate 200 mg/mL 200 mg IM Q2W LOW ANNEL TOSTERONE 11/25/24 Unknown History intramuscular oil (Depo-Testosterone) clonazepam 1 mg tablet (Klonopin) 1 mg PO QHS PANIC DI SORDER 12/01/24 Unknown History clopidogrel 75 mg tablet 75 mg PO DAILY STROKE PREVEN TION 12/01/24 Unknown History hydrochlorothiazide 12.5 mg capsule 12.5 mg PO DAILY H YPERTENSION 12/01/24 Unknown History quetiapine 25 mg tablet 75 mg PO QHS NIGHT TERRORS 1 Unknown History Allergy/AdvReac Type Severity Reaction Status Date / Time No Known Allergies Allergy Verified 12/01/24 12:27 Family History (Updated 11/25/24 @ 08:39 by [...] never substance use type: does not use EXAM Physical Exam Const Vital Signs: 12/01/24 12:26 12/01/24 12:26 12/01/24 12:28 Temperature 98.7 F Temperature Source Oral Pulse Rate 80 80 Respiratory Rate 16 14 Respiratory Effort Respiratory Pattern Blood Pressure 155/90 H 155/90 H Blood Pressure Mean 111 111 Pulse Ox 98 98 Oxygen Delivery Method Room Air Room Air Room Air 12/01/24 12:53 12/01/24 13:16 12/01/24 13:33 Temperature Temperature Source Pulse Rate 75 75 71 Respiratory Rate 16 14 18 Respiratory Effort Respiratory Pattern Blood Pressure 153/83 H 106/74 129/76 H Blood Pressure Mean 106 84 93 Pulse Ox 97 98 97 Oxygen Delivery Method Room Air Room Air Room Air 12/01/24 13:39 12/01/24 14:00 Temperature Temperature Source Pulse Rate 70 Respiratory Rate 14 Respiratory Effort Normal Respiratory Pattern Normal Blood Pressure 146/84 H Blood Pressure Mean 104 Pulse Ox 98 Oxygen Delivery Method Room Air [facility] Narrative Medical decision making narrative: HISTORY OF PRESENT ILLNESS: Chief complaint: Speech difficulty, swallowing difficulty, left-sided weakness 59-year-old male history of CVA, Parkinson's disease, hypertension, type 2 diabetes, former smoker presents with difficulty swallowing, left-sided facial sensory changes, left upper and lower extremity weakness. Last known well was at 10:30 PM on 11/2024. No falls or trauma noted. No chest pain orheadache noted REVIEW OF SYSTEMS: Pertinent positives: Left-sided weakness, difficulty swallowing Pertinent negatives: Chest pain, headache PHYSICAL EXAM: Nursing triage notes reviewed, Vital signs reviewed Constitutional: [facility] see [facility] HENT: MMM Eyes: Pupils equal round and reactive to light, Extraocular muscles intact Neck: No stridor, no JVD, full neck ROM Lungs: Clear to auscultation, No wheezing or rales. No increased work of breathing, no conversational dyspnea, no accessory muscle use, no nasal flaring. No respiratory distress noted Heart: Regular rate and rhythm, No murmurs, No rubs and No gallops, 2+ distal pulses (radial, femoral, posterior tibial) in all extremities Abdomen: Soft, there is no tenderness, rigidity, rebound or guarding, no obviousperitoneal signs, no palpable pulsatile abdominal masses, no auscultated abdominal bruit : No CVAT Extremities: No edema Neuro: Patient was alert, he was oriented, he had no obvious aphasia or dysarthria, no obvious facial drooping. His visual robles were intact and extraocular muscles were intact. He had subjective sensory changes in the left side of his face. He also had weakness and drift in left upper and lower ex tremity. He had no loss of coordination or ataxia. His initial NIH was 3. Skin: No rash or lesions noted MEDICAL DECISION MAKING: Chief Complaint: please see [facility] External records reviewed: Reviewed prior imaging studies: Reviewed MRI from 2023 which showed no intracranial mass, hemorrhage or acute surgical infarct Factors affecting care: As per HPI Social determinants of health: Former smoker History obtained from others: The patient's Consults: Stroke radiology, stroke neurology, internal medicine [facility] Narrative: Patient was initially hemodynamically stable, afebrile and nontoxic-appearing. Initial NIH of 3 with left-sided subjective sensory changes and slight drift in left upper and lower extremity. Given the patient's positive NIH stroke scale and last known well within 24 hours a stroke alert was called. I considered the following differential diagnosis: Acute CVA, TIA, focal seizure, ICH, Johanny's paralysis I obtained a broad lab and imaging workup to further determine if the patient was suffering from a life-threatening etiology. ALL IMAGES (IF OBTAINED) HAVE BEEN PERSONALLY REVIEWED AND INTERPRETED BY MYSELF. EKG with normal sinus rhythm rate of 80, left ax deviation, normal intervals, noSTEMI CT scan of the brain shows no acute hemorrhage or shift CTA head and neck shows no evidence of large vessel occlusion Given last known well greater than 4-1/2 hours prior to arrival, low NIH and no sign of large vessel occlusion patient not a candidate for TNK or thrombectomy. High-sensitivity troponin is negative, no evidence of myocardial ischemia No obvious coagulopathy CBC with no leukocytosis, anemia or thrombocytopenia BMP without significant electrolyte maladies, there is a metabolic acidosis as well as elevated anion gap. There is unclear clinical significance as the patient presents with strokelike symptoms. He does not have any nausea or vomiting is not particular hyperglycemic with a blood sugar of 178. I donot suspect this related to DKA. He has no infectious signs or symptoms to suggest lactic acidosis.Will discuss this with hospitalist and continue workup as an inpatient. Discussed with stroke neurologist (Dr. Winston) Who noted no obvious ICH, mass. No obvious large vessel occlusion. Notes patient is Discussed with stroke neurologist (Dr. Hanna) who recommended no TNK or thrombectomy. He further recommended admission here was given a hospital for MRI, risk factor modification. He recommended patient continue Plavix that is already prescribed Discussed case with internal medicine physician . She agreed admit the patient to PCU observation. The patient and/or family, caregivers express understanding. The patient and/orfamily, caregivers agrees with the plan. Shared decision making: I will have a discussion with the patient and or visitors regarding risk/benefits of further testing or admission. They will be made aware of of the risk/benefits inherent in this decision they will be given the opportunity to voice understanding. Total critical care time today provided was at least 35 minutes. This excludes separately billable procedures. Critical care time (if documented) is secondary to the patient having high probability of clinically significant/life threatening deterioration in the patient's condition which required myurgent intervention. Impression: 1. Acute CVA 2. History of hypertension 3. History of hyperlipidemia Dispo: Admit to PCU This note was generated with [employer] dictation software. It may contain incorrectwords, spelling, and punctuation that were not noted in review of the chart prior to signing. Lab Data Labs: Laboratory Results - last 24 hr 12/01/24 12/01/24 12/01/24 12:28 12:30 14:00 WBC 6.3 RBC 5.32 Hgb 15.7 Hct 43.6 MCV 82.0 MCH 29.5 MCHC 36.0 RDW Std Deviation 38.3 RDW Coeff of Gail 13.2 Plt Count 158 MPV 9.4 Immature Gran % (Auto) 0.200 Neut % (Auto) 62.1 Lymph % (Auto) 25.0 [place] % (Auto) 8.4 Eos % (Auto) 3.7 Baso % (Auto) 0.6 Absolute Neuts (auto) 3.9 Absolute Lymphs (auto) 1.57 Nucleated RBC % 0 PT 12.1 INR 0.9 APTT 26.1 Sodium 135 Potassium 4.3 Chloride 102 Carbon Dioxide 13.0 L Anion Gap 20 H BUN 14 Creatinine 1.05 Estim Creat Clear Calc 92.15 Est GFR (MDRD) Non-Af 82 BUN/Creatinine Ratio 13.4 Glucose 178 H Lactic Acid < 1.0 Calcium 9.2 Troponin T High Sens 9 D b-Hydroxybutyric mmol/L 0.1 Urine Color Urine Clarity Urine pH Ur Specific [place] Urine Protein Urine Glucose (UA) Urine Ketones Urine Occult Blood Urine Nitrite Urine Bilirubin Urine Urobilinogen Ur Leukocyte Esterase Urine RBC Urine WBC Ur Squamous Epith Cells Urine Bacteria Urine Mucus 12/01/24 14:09 WBC RBC Hgb Hct MCV MCH MCHC RDW Std Deviation RDW Coeff of Gail Plt Count MPV Immature Gran % (Auto) Neut % (Auto) Lymph % (Auto) [place] % (Auto) Eos % (Auto) Baso % (Auto) Absolute Neuts (auto) Absolute Lymphs (auto) Nucleated RBC % PT INR APTT Sodium Potassium Chloride Carbon Dioxide Anion Gap BUN Creatinine Estim Creat Clear Calc Est GFR (MDRD) Non-Af BUN/Creatinine Ratio Glucose Lactic Acid Calcium Troponin T High Sens b-Hydroxybutyric mmol/L Urine Color Yellow Urine Clarity Clear Urine pH 5.0 Ur Specific [place] 1.010 Urine Protein 15 H Urine Glucose (UA) 1000 H Urine Ketones 5 H Urine Occult Blood Negative Urine Nitrite Negative Urine Bilirubin Negative Urine Urobilinogen Normal Ur Leukocyte Esterase Negative Urine RBC 0 SEEN Urine WBC 0 SEEN Ur Squamous Epith Cells 0 SEEN Urine Bacteria 0 SEEN Urine Mucus 0 SEEN Radiography Diagnostic Testing: Clinical Impression(s) from Imaging Studies Brain CT 12/01/24 12:28 IMPRESSION: No acute intracranial abnormality. No evidence of large territorial ischemic infarct. Normal CTA of the head and neck and [id number]. Stroke Alert: No acute intracranial abnormality. No large vessel occlusion. No large territorial infarct. The critical findings in the findings and impression above were relayed directlyby me by telephone to Ermias German on 12/01/2024 at 12:58 pm with readback verification. Reading Location: [facility] Head/Neck CTA 12/01/24 12:28 IMPRESSION: No acute intracranial abnormality. No evidence of large territorial ischemic infarct. Normal CTA of the head and neck and [id number]. Stroke Alert: No acute intracranial abnormality. No large vessel occlusion. No large territorial infarct. The critical findings in the findings and impression above were relayed directlyby me by telephone to Ermias German on 12/01/2024 at 12:58 pm with readback verification. Reading Location: [facility] Discharge Plan Disposition Disposition: Acute Care Hospital [facility] Discharge Date/Time: 12/01/24 14:28 What to do if you have Problems For any increased pain, shortness of breath, bleeding, nausea or vomiting, chestpain, or any unexpected problems, contact your Primary Care Provider. Call [facility] ([phone]) or report tothe closest Emergency Room. Call 911 if necessary. 12/01/242147 Cosigner Signature (if applicable): CC: [facility] ~ Signed [facility]10-05-2025 History and physical note Author Temi Katz [facility] Note Date/Time December 01, 2024 4: 21pm [facility] Medical Records Department [address] [place] [address] H&P Exam - Hospitalist 12/01/24 1409 MR#: [id number] Acct: [id number] Name: KRISHAN BURNHAM Rep #:[id number] 1 : 1965 59 From: Temi Katz MD PCP: [facility] Status:ADM DAVIAN Location: [place] [address] HPI - General General Date of Admission: 12/01/24 Date of Service: 12/01/24 Chief Complaint: Left sided weakness HPI Narrative KRISHAN BURNHAM, is a 59-year-old male history of GERD, Parkinson's, hypertension, diabetes, CVA, depression and anxiety who presented [facility] ED 12/01/2024 due to waking up with left neck pain, left-sided tunnel vision, left- sided weakness and pain with swallowing. Stroke call made in the ED. Temp98.7, heart rate of 80, blood pressure 155/98, respirate 16 pulse ox 98% on roomair. CBC unremarkable, troponin 9, BMP with bicarb of 13 and a gap of 20 with glucose 178 otherwise within normal limits CT brain and CT head and neck no acute process, teleneurology evaluated and recommended admission for stroke ruleout. Hospitalist contacted for admission. Patient evaluated at bedside. Pt reportedly woke up this AM with a right sided headache, left eye tunnel vision, whole left half of his face with tingling as well as reported weakness of left upper and lower extremity but primarily was reporting increase in joint pain in all of the joints on his left side. Additionally he reported some increased difficulty swallowing, has had difficulty swallowing recently and is supposed toundergo an outpatient swallow eval but said this morning he noticed it was worse. Presently in the ED still has slight headache and reports all of the symptoms are better than they were but still present. Denies fevers or chills, does have chronic abdominal pain with intermittent diarrhea and constipation andsome nausea for which she is scheduled to undergo outpatient colonoscopy and upper endoscopy. [facility] Medical History BMI 34.0-34.9,adult Left ventricular hypertrophy [...] with anxiety Abdominal pain Diverticulitis Home Medications ?Medication ?Instructions ?Recorded ?Last Taken ?Type melatonin 3 mg tablet 9 mg PO QHS SLEEP 05/12/19 0 03/15/23 History trazodone 100 mg tablet 300 mg PO QHS SLEEP 05/12/19 08/01/23 History famotidine 20 mg tablet 20 mg PO BID GERD 02/17/20 0 08/02/23 History propranolol 10 mg tablet 10 mg PO BID HYPERTENSION AN D 02/16/21 08/02/23 History ANXIETY carbidopa ER 36.25 mg-levodopa 145 4 cap PO 4X/DAY Par kinsons 11/30/21 08/02/23 History mg capsule,extended release (Rytary) cholecalciferol (vitamin D3) 50 50 mcg PO DAILY SUPPLE MENT 11/30/21 08/02/23 History mcg (2,000 unit) tablet diltiazem HCl 60 mg tablet 60 mg PO BID HYPERTENSION/A DARRYL 11/30/21 03/16/23 History empagliflozin 25 mg tablet 25 mg PO DAILY DIABETES 06/1808/02/23 History (Jardiance) prazosin 5 mg capsule 10 mg PO QHS HYPERTENSION 08/02/23 History duloxetine 60 mg capsule,delayed 120 mg PO DAILY DEPRE SSION 03/29/22 08/02/23 History release diclofenac sodium 1 % topical gel 4 g topical BID PRN OSTEOARTHRITIS 03/16/23 Unknown History gabapentin 300 mg capsule 300 mg PO QHS RESTLESS LEG S YNDROME 03/16/23 03/15/23 History sildenafil 100 mg tablet 100 mg PO DAILY PRN sexual a ctivity 03/16/23 Unknown History pantoprazole 40 mg tablet,delayed 40 mg PO QDAY GERD 0 11/25/24 Unknown History release rosuvastatin 20 mg tablet 20 mg PO QDAY HIGH CHOLESTER OL 11/25/24 Unknown History testosterone cypionate 200 mg/mL 200 mg IM Q2W LOW ANNEL TOSTERONE 11/25/24 Unknown History intramuscular oil (Depo-Testosterone) clonazepam 1 mg tablet (Klonopin) 1 mg PO QHS PANIC DI SORDER 12/01/24 Unknown History clopidogrel 75 mg tablet 75 mg PO DAILY STROKE PREVEN TION 12/01/24 Unknown History hydrochlorothiazide 12.5 mg capsule 12.5 mg PO DAILY H YPERTENSION 12/01/24 Unknown History quetiapine 25 mg tablet 75 mg PO QHS NIGHT TERRORS 1 Unknown History Allergy/AdvReac Type Severity Reaction Status Date / Time No Known Allergies Allergy Verified 12/01/24 12:27 Family History (Updated 11/25/24 @ 08:39 by [...] type: does not use ROS ROS Narrative General: Denies fever/chills HENT: Right posterior headache, denies stuffy nose, denies sore throat but does report trouble swallowing EYES: Tunnel vision left eye Resp: Denies cough, denies shortness of breath Cardiac: Denies chest pain GI: Has had chronic abdominal pain and intermittent diarrhea and constipation for which she is being worked up on an outpatient basis : Denies changes in urination Extremity: Denies swelling MSK: Weakness in upper and lower left extremities, joint pains on all of the joints on the left Neuro: Reports some paresthesias on left side of face Heme: Denies any bleeding or bruising Skin: Denies rashes Psychiatric: No complaints voiced Vital Signs Vital Signs Vital Signs: 12/01/24 12:26 12/01/24 12:26 12/01/24 12:28 Temperature 98.7 F Temperature Source Oral Pulse Rate 80 80 Respiratory Rate 16 14 Respiratory Effort Respiratory Pattern Blood Pressure 155/90 H 155/90 H Blood Pressure Mean 111 111 Pulse Ox 98 98 Oxygen Delivery Method Room Air Room Air Room Air 12/01/24 12:53 12/01/24 13:16 12/01/24 13:33 Temperature Temperature Source Pulse Rate 75 75 71 Respiratory Rate 16 14 18 Respiratory Effort Respiratory Pattern Blood Pressure 153/83 H 106/74 129/76 H Blood Pressure Mean 106 84 93 Pulse Ox 97 98 97 Oxygen Delivery Method Room Air Room Air Room Air 12/01/24 13:39 Temperature Temperature Source Pulse Rate Respiratory Rate Respiratory Effort Normal Respiratory Pattern Normal Blood Pressure Blood Pressure Mean Pulse Ox Oxygen Delivery Method Weight Weight: 102.058 kg Body Mass Index (BMI) 31.4 Physical Exam Narrative General: Alert, oriented, no apparent distress HEENT: Atraumatic, normocephalic Eyes: Anicteric, normal conjunctiva, extraocular movements intact, pupils equal Neck: Supple Respiratory: Clear to auscultation bilaterally, normal respiratory effort Cardiovascular: Regular rate and rhythm GI: Soft, mild tenderness without rebound, guarding, rigidity Extremities: No edema Musculoskeletal: Strength 5 out of 5 in right upper extremity, 5 out of 5 left upper extremity, 5 out of 5 right lower extremity, 4+ out of 5 left lower extremity though there seem to be effort with 5 out of 5 at the beginning of left lower extremity test with subsequent decrease and drop Neuro: Subjective decreased sensation on entire left side of face, aside from the above otherwise cranial nerves II through XII intact, [id number] withoutsignificant difficulty bilaterally Skin: No rashes appreciated Psych: Cooperative Results Lab / Micro Data 12/01/24 12:30 12/01/24 12:30 Labs: Laboratory Results - last 24 hr 12/01/24 12:30: WBC 6.3, RBC 5.32, Hgb 15.7, Hct 43.6, MCV 82.0, MCH 29.5, MCHC 36.0, RDW Std Deviation 38.3, RDW Coeff of Gail 13.2, Plt Count 158, MPV 9.4, Immature Gran % (Auto) 0.200, Neut % (Auto) 62.1, Lymph % (Auto) 25.0, [place] % (Auto) 8.4, Eos % (Auto) 3.7, Baso % (Auto) 0.6, Absolute Neuts (auto) 3.9, Absolute Lymphs (auto) 1.57, Nucleated RBC % 0, PT 12.1, INR 0.9, APTT 26.1, Sodium 135, Potassium 4.3, Chloride 102, Carbon Dioxide 13.0 L, Anion Gap 20 H, BUN 14, Creatinine 1.05, Estim Creat Clear Calc 92.15, Est GFR (MDRD) Non-Af 82,BUN/Creatinine Ratio 13.4, Glucose 178 H, Calcium 9.2, Troponin T High Sens 9 D Imaging Radiology Impression Brain CT 12/01/24 12:28 IMPRESSION: No acute intracranial abnormality. No evidence of large territorial ischemic infarct. Normal CTA of the head and neck and [id number]. Stroke Alert: No acute intracranial abnormality. No large vessel occlusion. No large territorial infarct. The critical findings in the findings and impression above were relayed directlyby me by telephone to Ermias German on 12/01/2024 at 12:58 pm with readback verification. Reading Location: [facility] Head/Neck CTA 12/01/24 12:28 IMPRESSION: No acute intracranial abnormality. No evidence of large territorial ischemic infarct. Normal CTA of the head and neck and [id number]. Stroke Alert: No acute intracranial abnormality. No large vessel occlusion. No large territorial infarct. The critical findings in the findings and impression above were relayed directlyby me by telephone to Ermias German on 12/01/2024 at 12:58 pm with readback verification. Reading Location: [facility] Assessment & Plan Assessment/Plan (1) Neurologic abnormality: PLAN: Plan # Left-sided weakness and facial paresthesias -Patient multiple complaints, left-sided weakness, joint pain in his left joints, difficulty swallowing, paresthesias on the entire left side of his head,right sided headache -Admit to tele -CT head w/ no acute process -CTA head and neck no LVO -MRI ordered -NIH q4hr -asa, Plavix statin -Echo -PT/OT/Speech eval -Teleneuro consult placed -Hold BP medications to allow for permissive hypertension for 24 hours unless SBP greater than 220 or DBP greater than 120 or until stroke is ruled out # History of CVA - Previously got TNK and was admitted to our med rehab - Continue statin, patient on aspirin and Plavix, appears he was not actually taking Plavix at home # Parkinson's disease - continue home Sinemet - supportive care #Type 2 diabetes mellitus -Glucose checks and sliding scale insulin #Hypertension - Holding home meds as above #Depression/anxiety -Continue home medications #GERD -Continue PPI #DVT ppx: SCDs Temi Katz MD Charges/Coding Visit Charges Inpatient E&M: 91910 Init Hosp L2 12/01/24 1621 <Electronically signed by Temi Katz MD> Cosigner Signature (if applicable): CC: Dr. Temi Katz MD; [facility]~ Signed [facility] Work Phone: 1(594) 439-238210-05-2025 History and physical note [facility] Medical Records Department [address] [place] [address] H&P Exam - Hospitalist 12/01/24 1409 MR#: [id number] Acct: [id number] Name: KRISHAN BURNHAM Rep #:[id number] 1 : 1965 59 From: Temi Katz MD PCP: [facility] Status:ADM DAVIAN Location: [place] [address] HPI - General General Date of Admission: 12/01/24 Date of Service: 12/01/24 Chief Complaint: Left sided weakness HPI Narrative KRISHAN BURNHAM, is a 59-year-old male history of GERD, Parkinson's, hypertension, diabetes, CVA, depression and anxiety who presented [facility] ED 12/01/2024 due to waking up with left neck pain, left-sided tunnel vision, left-sided weakness and pain with swallowing. Stroke call made in the ED. Temp98.7, heart rate of 80, blood pressure 155/98, respirate 16 pulse ox 98% on roomair. CBC unremarkable, troponin 9, BMP with bicarb of 13 and a gap of 20 with glucose 178 otherwise within normal limits CT brain and CT head and neck no acute process, teleneurology evaluated and recommended admission for stroke ruleout. Hospitalist contacted for admission. Patient evaluated at bedside.Pt reportedly woke up this AM with a right sided headache, left eye tunnel vision, whole left half of his face with tingling as well as reported weakness of left upper and lower extremity but primarily was reporting increase in joint pain in all of the joints on his left side. Additionally he reported some increased difficulty swallowing, has had difficulty swallowing recently and is supposed toundergo an outpatient swallow eval but said this morning he noticed it was worse. Presently in the EDstill has slight headache and reports all of the symptoms are better than they were but still present. Denies fevers or chills, does have chronic abdominal pain with intermittent diarrhea and constipation andsome nausea for which she is scheduled to undergo outpatient colonoscopy and upper endoscopy. [facility] Medical History BMI 34.0-34.9,adult Left ventricular hypertrophy [...] with anxiety Abdominal pain Diverticulitis Home Medications ?Medication ?Instructions ?Recorded ?Last Taken ?Type melatonin 3 mg tablet 9 mg PO QHS SLEEP 05/12/19 0 03/15/23 History trazodone 100 mg tablet 300 mg PO QHS SLEEP 05/12/19 08/01/23 History famotidine 20 mg tablet 20 mg PO BID GERD 02/17/20 0 08/02/23 History propranolol 10 mg tablet 10 mg PO BID HYPERTENSION AN D 02/16/21 08/02/23 History ANXIETY carbidopa ER 36.25 mg-levodopa 145 4 cap PO 4X/DAY Par kinsons 11/30/21 08/02/23 History mg capsule,extended release (Rytary) cholecalciferol (vitamin D3) 50 50 mcg PO DAILY SUPPLE MENT 11/30/21 08/02/23 History mcg (2,000 unit) tablet diltiazem HCl 60 mg tablet 60 mg PO BID HYPERTENSION/A DARRYL 10/04/22 01/18/24 History empagliflozin 25 mg tablet 25 mg PO DAILY DIABETES 06/1808/02/23 History (Jardiance) prazosin 5 mg capsule 10 mg PO QHS HYPERTENSION 08/02/23 History duloxetine 60 mg capsule,delayed 120 mg PO DAILY DEPRE SSION 03/29/22 08/02/23 History release diclofenac sodium 1 % topical gel 4 g topical BID PRN OSTEOARTHRITIS 03/16/23 Unknown History gabapentin 300 mg capsule 300 mg PO QHS RESTLESS LEG S YNDROME 03/16/23 03/15/23 History sildenafil 100 mg tablet 100 mg PO DAILY PRN sexual a ctivity 03/16/23 Unknown History pantoprazole 40 mg tablet,delayed 40 mg PO QDAY GERD 0 11/25/24 Unknown History release rosuvastatin 20 mg tablet 20 mg PO QDAY HIGH CHOLESTER OL 11/25/24 Unknown History testosterone cypionate 200 mg/mL 200 mg IM Q2W LOW ANNEL TOSTERONE 11/25/24 Unknown History intramuscular oil (Depo-Testosterone) clonazepam 1 mg tablet (Klonopin) 1 mg PO QHS PANIC DI SORDER 12/01/24 Unknown History clopidogrel 75 mg tablet 75 mg PO DAILY STROKE PREVEN TION 12/01/24 Unknown History hydrochlorothiazide 12.5 mg capsule 12.5 mg PO DAILY H YPERTENSION 12/01/24 Unknown History quetiapine 25 mg tablet 75 mg PO QHS NIGHT TERRORS 1 Unknown History Allergy/AdvReac Type Severity Reaction Status Date / Time No Known Allergies Allergy Verified 12/01/24 12:27 Family History (Updated 11/25/24 @ 08:39 by [...] type: does not use ROS ROS Narrative General: Denies fever/chills HENT: Right posterior headache, denies stuffy nose, denies sore throat but does report trouble swallowing EYES: Tunnel vision left eye Resp: Denies cough, denies shortness of breath Cardiac: Denies chest pain GI: Has had chronic abdominal pain and intermittent diarrhea and constipation for which she is being worked up on an outpatient basis : Denies changes in urination Extremity: Denies swelling MSK: Weakness in upper and lower left extremities, joint pains on all of the joints on the left Neuro: Reports some paresthesias on left side of face Heme: Denies any bleeding or bruising Skin: Denies rashes Psychiatric: No complaints voiced Vital Signs Vital Signs Vital Signs: 12/01/24 12:26 12/01/24 12:26 12/01/24 12:28 Temperature 98.7 F Temperature Source Oral Pulse Rate 80 80 Respiratory Rate 16 14 Respiratory Effort Respiratory Pattern Blood Pressure 155/90 H 155/90 H Blood Pressure Mean 111 111 Pulse Ox 98 98 Oxygen Delivery Method Room Air Room Air Room Air 12/01/24 12:53 12/01/24 13:16 12/01/24 13:33 Temperature Temperature Source Pulse Rate 75 75 71 Respiratory Rate 16 14 18 Respiratory Effort Respiratory Pattern Blood Pressure 153/83 H 106/74 129/76 H Blood Pressure Mean 106 84 93 Pulse Ox 97 98 97 Oxygen Delivery Method Room Air Room Air Room Air 12/01/24 13:39 Temperature Temperature Source Pulse Rate Respiratory Rate Respiratory Effort Normal Respiratory Pattern Normal Blood Pressure Blood Pressure Mean Pulse Ox Oxygen Delivery Method Weight Weight: 102.058 kg Body Mass Index (BMI) 31.4 Physical Exam Narrative General: Alert, oriented, no apparent distress HEENT: Atraumatic, normocephalic Eyes: Anicteric, normal conjunctiva, extraocular movements intact, pupils equal Neck: Supple Respiratory: Clear to auscultation bilaterally, normal respiratory effort Cardiovascular: Regular rate and rhythm GI: Soft, mild tenderness without rebound, guarding, rigidity Extremities: No edema Musculoskeletal: Strength 5 out of 5 in right upper extremity, 5 out of 5 left upper extremity, 5 out of 5 right lower extremity, 4+ out of 5 left lower extremity though there seem to be effort with 5 out of 5 at the beginning of left lower extremity test with subsequent decrease and drop Neuro: Subjective decreased sensation on entire left side of face, aside from the above otherwise cranial nerves II through XII intact, [id number] withoutsignificant difficulty bilaterally Skin: No rashes appreciated Psych: Cooperative Results Lab / Micro Data 12/01/24 12:30 12/01/24 12:30 Labs: Laboratory Results - last 24 hr 12/01/24 12:30: WBC 6.3, RBC 5.32, Hgb 15.7, Hct 43.6, MCV 82.0, MCH 29.5, MCHC 36.0, RDW Std Deviation 38.3, RDW Coeff of Gail 13.2, Plt Count 158, MPV 9.4, Immature Gran % (Auto) 0.200, Neut % (Auto) 62.1, Lymph % (Auto) 25.0, [place]amo % (Auto) 8.4, Eos % (Auto) 3.7, Baso % (Auto) 0.6, Absolute Neuts (auto) 3.9, Absolute Lymphs (auto) 1.57, Nucleated RBC % 0, PT 12.1, INR 0.9, APTT 26.1, Sodium 135,Potassium 4.3, Chloride 102, Carbon Dioxide 13.0 L, Anion Gap 20 H, BUN 14, Creatinine 1.05, Estim Creat Clear Calc 92.15, Est GFR (MDRD) Non-Af 82,BUN/Creatinine Ratio 13.4, Glucose 178 H, Calcium 9.2, Troponin T High Sens 9 D Imaging Radiology Impression Brain CT 12/01/24 12:28 IMPRESSION: No acute intracranial abnormality. No evidence of large territorial ischemic infarct. Normal CTA of the head and neck and [id number]. Stroke Alert: No acute intracranial abnormality. No large vessel occlusion. No large territorial infarct. The critical findings in the findings and impression above were relayed directlyby me by telephone to Ermias German on 12/01/2024 at 12:58 pm with readback verification. Reading Location: [facility] Head/Neck CTA 12/01/24 12:28 IMPRESSION: No acute intracranial abnormality. No evidence of large territorial ischemic infarct. Normal CTA of the head and neck and gnjfqy-[id number]. Stroke Alert: No acute intracranial abnormality. No large vessel occlusion. No large territorial infarct. The critical findings in the findings and impression above were relayed directlyby me by telephone to Ermias German on 12/01/2024 at 12:58 pm with readback verification. Reading Location: [facility] Assessment & Plan Assessment/Plan (1) Neurologic abnormality: PLAN: Plan # Left-sided weakness and facial paresthesias -Patient multiple complaints, left-sided weakness, joint pain in his left joints, difficulty swallowing, paresthesias on the entire left side of his head,right sided headache -Admit to tele -CT head w/ no acute process -CTA head and neck no LVO -MRI ordered -NIH q4hr -asa, Plavix statin -Echo -PT/OT/Speech eval -Teleneuro consult placed -Hold BP medications to allow for permissive hypertension for 24 hours unless SBP greater than 220 or DBP greater than 120 or until stroke is ruled out # History of CVA - Previously got TNK and was admitted to our med rehab - Continue statin, patient on aspirin and Plavix, appears he was not actually taking Plavix at home # Parkinson's disease - continue home Sinemet - supportive care #Type 2 diabetes mellitus -Glucose checks and sliding scale insulin #Hypertension - Holding home meds as above #Depression/anxiety -Continue home medications #GERD -Continue PPI #DVT ppx: SCDs Temi Katz MD Charges/Coding Visit Charges Inpatient E&M: 76227 Init Hosp L2 12/01/24 1621 Cosigner Signature (if applicable): CC: Dr. Temi Katz MD; [facility]~ Signed [facility]10-05-2025 Discharge summary Author Ermias German [facility] Note Date/Time December 01, 2024 9: 48pm [facility] Medical Records Department [address] [place] [address] Emergency Department Summary 12/01/24 MR#: [id number] Acct: [id number] Name: KRISHAN BURNHAM Rep #:[id number] : 1965 59 From: Ermias Rincon PCP: [facility] Status:ADM DAVIAN Location: [place] [address] HPI History of Present Illness Chief Complaint: Stroke Alert PFSH [facility] Medical History BMI 34.0-34.9,adult Left ventricular hypertrophy [...] with anxiety Abdominal pain Diverticulitis Home Medications ?Medication ?Instructions ?Recorded ?Last Taken ?Type melatonin 3 mg tablet 9 mg PO QHS SLEEP 05/12/19 0 03/15/23 History trazodone 100 mg tablet 300 mg PO QHS SLEEP 05/12/19 08/01/23 History famotidine 20 mg tablet 20 mg PO BID GERD 02/17/20 0 08/02/23 History propranolol 10 mg tablet 10 mg PO BID HYPERTENSION AN D 02/16/21 08/02/23 History ANXIETY carbidopa ER 36.25 mg-levodopa 145 4 cap PO 4X/DAY Par kinsons 11/30/21 08/02/23 History mg capsule,extended release (Rytary) cholecalciferol (vitamin D3) 50 50 mcg PO DAILY SUPPLE MENT 11/30/21 08/02/23 History mcg (2,000 unit) tablet diltiazem HCl 60 mg tablet 60 mg PO BID HYPERTENSION/A DARRYL 11/30/21 03/16/23 History empagliflozin 25 mg tablet 25 mg PO DAILY DIABETES 06/1808/02/23 History (Jardiance) prazosin 5 mg capsule 10 mg PO QHS HYPERTENSION 08/02/23 History duloxetine 60 mg capsule,delayed 120 mg PO DAILY DEPRE SSION 03/29/22 08/02/23 History release diclofenac sodium 1 % topical gel 4 g topical BID PRN OSTEOARTHRITIS 03/16/23 Unknown History gabapentin 300 mg capsule 300 mg PO QHS RESTLESS LEG S YNDROME 03/16/23 03/15/23 History sildenafil 100 mg tablet 100 mg PO DAILY PRN sexual a ctivity 03/16/23 Unknown History pantoprazole 40 mg tablet,delayed 40 mg PO QDAY GERD 0 11/25/24 Unknown History release rosuvastatin 20 mg tablet 20 mg PO QDAY HIGH CHOLESTER OL 11/25/24 Unknown History testosterone cypionate 200 mg/mL 200 mg IM Q2W LOW ANNEL TOSTERONE 11/25/24 Unknown History intramuscular oil (Depo-Testosterone) clonazepam 1 mg tablet (Klonopin) 1 mg PO QHS PANIC DI SORDER 12/01/24 Unknown History clopidogrel 75 mg tablet 75 mg PO DAILY STROKE PREVEN TION 12/01/24 Unknown History hydrochlorothiazide 12.5 mg capsule 12.5 mg PO DAILY H YPERTENSION 12/01/24 Unknown History quetiapine 25 mg tablet 75 mg PO QHS NIGHT TERRORS 1 Unknown History Allergy/AdvReac Type Severity Reaction Status Date / Time No Known Allergies Allergy Verified 12/01/24 12:27 Family History (Updated 11/25/24 @ 08:39 by [...] never substance use type: does not use EXAM Physical Exam Const Vital Signs: 12/01/24 12:26 12/01/24 12:26 12/01/24 12:28 Temperature 98.7 F Temperature Source Oral Pulse Rate 80 80 Respiratory Rate 16 14 Respiratory Effort Respiratory Pattern Blood Pressure 155/90 H 155/90 H Blood Pressure Mean 111 111 Pulse Ox 98 98 Oxygen Delivery Method Room Air Room Air Room Air 12/01/24 12:53 12/01/24 13:16 12/01/24 13:33 Temperature Temperature Source Pulse Rate 75 75 71 Respiratory Rate 16 14 18 Respiratory Effort Respiratory Pattern Blood Pressure 153/83 H 106/74 129/76 H Blood Pressure Mean 106 84 93 Pulse Ox 97 98 97 Oxygen Delivery Method Room Air Room Air Room Air 12/01/24 13:39 12/01/24 14:00 Temperature Temperature Source Pulse Rate 70 Respiratory Rate 14 Respiratory Effort Normal Respiratory Pattern Normal Blood Pressure 146/84 H Blood Pressure Mean 104 Pulse Ox 98 Oxygen Delivery Method Room Air [facility] Narrative Medical decision making narrative: HISTORY OF PRESENT ILLNESS: Chief complaint: Speech difficulty, swallowing difficulty, left-sided weakness 59-year-old male history of CVA, Parkinson's disease, hypertension, type 2 diabetes, former smoker presents with difficulty swallowing, left-sided facial sensory changes, left upper and lower extremity weakness. Last known well was at 10:30 PM on 11/2024. No falls or trauma noted. No chest pain or headache noted REVIEW OF SYSTEMS: Pertinent positives: Left-sided weakness, difficulty swallowing Pertinent negatives: Chest pain, headache PHYSICAL EXAM: Nursing triage notes reviewed, Vital signs reviewed Constitutional: [facility] see [facility] HENT: MMM Eyes: Pupils equal round and reactive to light, Extraocular muscles intact Neck: No stridor, no JVD, full neck ROM Lungs: Clear to auscultation, No wheezing or rales. No increased work of breathing, no conversational dyspnea, no accessory muscle use, no nasal flaring. No respiratory distress noted Heart: Regular rate and rhythm, No murmurs, No rubs and No gallops, 2+ distal pulses (radial, femoral, posterior tibial) in all extremities Abdomen: Soft, there is no tenderness, rigidity, rebound or guarding, no obviousperitoneal signs, no palpable pulsatile abdominal masses, no auscultated abdominal bruit : No CVAT Extremities: No edema Neuro: Patient was alert, he was oriented, he had no obvious aphasia or dysarthria, no obvious facial drooping. His visual robles were intact and extraocular muscles were intact. He had subjective sensory changes in the left side of his face. He also had weakness and drift in left upper and lower extremity. He had no loss of coordination or ataxia. His initial NIH was 3. Skin: No rash or lesions noted MEDICAL DECISION MAKING: Chief Complaint: please see [facility] External records reviewed: Reviewed prior imaging studies: Reviewed MRI from 2023 which showed no intracranial mass, hemorrhage or acute surgical infarct Factors affecting care: As per HPI Social determinants of health: Former smoker History obtained from others: The patient's Consults: Stroke radiology, stroke neurology, internal medicine MDM Narrative: Patient was initially hemodynamically stable, afebrile and nontoxic-appearing. Initial NIH of 3 with left-sided subjective sensory changes and slight drift in left upper and lower extremity. Given the patient's positive NIH stroke scale and last known well within 24 hours a stroke alert was called. I considered the following differential diagnosis: Acute CVA, TIA, focal seizure, ICH, Johanny's paralysis I obtained a broad lab and imaging workup to further determine if the patient was suffering from a life-threatening etiology. ALL IMAGES (IF OBTAINED) HAVE BEEN PERSONALLY REVIEWED AND INTERPRETED BY MYSELF. EKG with normal sinus rhythm rate of 80, left ax deviation, normal intervals, noSTEMI CT scan of the brain shows no acute hemorrhage or shift CTA head and neck shows no evidence of large vessel occlusion Given last known well greater than 4-1/2 hours prior to arrival, low NIH and no sign of large vessel occlusion patient not a candidate for TNK or thrombectomy. High-sensitivity troponin is negative, no evidence of myocardial ischemia No obvious coagulopathy CBC with no leukocytosis, anemia or thrombocytopenia BMP without significant electrolyte maladies, there is a metabolic acidosis as well as elevated anion gap. There is unclear clinical significance as the patient presents with strokelike symptoms. He does not have any nausea or vomiting is not particular hyperglycemic with a blood sugar of 178. I do not suspect this related to DKA. He has no infectious signs or symptoms to suggest lactic acidosis. Will discuss this with hospitalist and continue workup as an inpatient. Discussed with stroke neurologist (Dr. Winston) Who noted no obvious ICH, mass. No obvious large vessel occlusion. Notes patient is Discussed with stroke neurologist (Dr. Hanna) who recommended no TNK or thrombectomy. He further recommended admission here was given a hospital for MRI, risk factor modification. He recommended patient continue Plavix that is already prescribed Discussed case with internal medicine physician . She agreed admit the patient to PCU observation. The patient and/or family, caregivers express understanding. The patient and/orfamily, caregivers agrees with the plan. Shared decision making: I will have a discussion with the patient and or visitors regarding risk/benefits of further testing or admission. They will be made aware of of the risk/benefits inherent in this decision they will be given the opportunity to voice understanding. Total critical care time today provided was at least 35 minutes. This excludes separately billable procedures. Critical care time (if documented) is secondary to the patient having high probability of clinically significant/life threatening deterioration in the patient's condition which required my urgent intervention. Impression: 1. Acute CVA 2. History of hypertension 3. History of hyperlipidemia Dispo: Admit to PCU This note was generated with [employer] dictation software. It may contain incorrectwords, spelling, and punctuation that were not noted in review of the chart prior to signing. Lab Data Labs: Laboratory Results - last 24 hr 12/01/24 12/01/24 12/01/24 12:28 12:30 14:00 WBC 6.3 RBC 5.32 Hgb 15.7 Hct 43.6 MCV 82.0 MCH 29.5 MCHC 36.0 RDW Std Deviation 38.3 RDW Coeff of Gail 13.2 Plt Count 158 MPV 9.4 Immature Gran % (Auto) 0.200 Neut % (Auto) 62.1 Lymph % (Auto) 25.0 [place] % (Auto) 8.4 Eos % (Auto) 3.7 Baso % (Auto) 0.6 Absolute Neuts (auto) 3.9 Absolute Lymphs (auto) 1.57 Nucleated RBC % 0 PT 12.1 INR 0.9 APTT 26.1 Sodium 135 Potassium 4.3 Chloride 102 Carbon Dioxide 13.0 L Anion Gap 20 H BUN 14 Creatinine 1.05 Estim Creat Clear Calc 92.15 Est GFR (MDRD) Non-Af 82 BUN/Creatinine Ratio 13.4 Glucose 178 H Lactic Acid < 1.0 Calcium 9.2 Troponin T High Sens 9 D b-Hydroxybutyric mmol/L 0.1 Urine Color Urine Clarity Urine pH Ur Specific [place] Urine Protein Urine Glucose (UA) Urine Ketones Urine Occult Blood Urine Nitrite Urine Bilirubin Urine Urobilinogen Ur Leukocyte Esterase Urine RBC Urine WBC Ur Squamous Epith Cells Urine Bacteria Urine Mucus 12/01/24 14:09 WBC RBC Hgb Hct MCV MCH MCHC RDW Std Deviation RDW Coeff of Gail Plt Count MPV Immature Gran % (Auto) Neut % (Auto) Lymph % (Auto) [place] % (Auto) Eos % (Auto) Baso % (Auto) Absolute Neuts (auto) Absolute Lymphs (auto) Nucleated RBC % PT INR APTT Sodium Potassium Chloride Carbon Dioxide Anion Gap BUN Creatinine Estim Creat Clear Calc Est GFR (MDRD) Non-Af BUN/Creatinine Ratio Glucose Lactic Acid Calcium Troponin T High Sens b-Hydroxybutyric mmol/L Urine Color Yellow Urine Clarity Clear Urine pH 5.0 Ur Specific [place] 1.010 Urine Protein 15 H Urine Glucose (UA) 1000 H Urine Ketones 5 H Urine Occult Blood Negative Urine Nitrite Negative Urine Bilirubin Negative Urine Urobilinogen Normal Ur Leukocyte Esterase Negative Urine RBC 0 SEEN Urine WBC 0 SEEN Ur Squamous Epith Cells 0 SEEN Urine Bacteria 0 SEEN Urine Mucus 0 SEEN Radiography Diagnostic Testing: Clinical Impression(s) from Imaging Studies Brain CT 12/01/24 12:28 IMPRESSION: No acute intracranial abnormality. No evidence of large territorial ischemic infarct. Normal CTA of the head and neck and [id number]. Stroke Alert: No acute intracranial abnormality. No large vessel occlusion. No large territorial infarct. The critical findings in the findings and impression above were relayed directlyby me by telephone to Ermias German on 12/01/2024 at 12:58 pm with readback verification. Reading Location: [facility] Head/Neck CTA 12/01/24 12:28 IMPRESSION: No acute intracranial abnormality. No evidence of large territorial ischemic infarct. Normal CTA of the head and neck and [id number]. Stroke Alert: No acute intracranial abnormality. No large vessel occlusion. No large territorial infarct. The critical findings in the findings and impression above were relayed directlyby me by telephone to Ermias German on 12/01/2024 at 12:58 pm with readback verification. Reading Location: [facility] Discharge Plan Disposition Disposition: Acute Care Hospital [facility] Discharge Date/Time: 12/01/24 14:28 What to do if you have Problems For any increased pain, shortness of breath, bleeding, nausea or vomiting, chestpain, or any unexpected problems, contact your Primary Care Provider. Call [facility] ([phone]) or report to the closest Emergency Room. Call 911 if necessary. 12/01/242 <Electronically signed by Ermias German DO> Cosigner Signature (if applicable): CC: [facility] ~ Signed [facility] Work Phone: [phone] 424-177310-05-2025 Radiology Diagnostic study note [facility] [address] [place], [place] [address] STROKE Brain/Head without Cont MR#: [id number] Acct: [id number] Name: KRISHAN BURNHAM Rep #: [id number] : 1965 M 59 From: Renny Winston MD PCP: [facility] Status: REG ER Study:STROKE Brain/Head without Cont Date of Exam: 12/01/24 Exam# [id number] Ordering Dr: Aaliyah German DO PROCEDURE: STROKE BRAIN/HEAD WITHOUT CONT; STROKE CTA HEAD AND NECK W/CON 12/01/2024 REASON FOR EXAM: NEURO DEFICIT, ACUTE, STROKE SUSPECTED TECHNIQUE: Procedure Code: CTBR.ST; CTCTA.ST.HN Modality: CT Procedure: STROKE BRAIN/HEAD WITHOUT CONT; STROKECTA HEAD AND NECK W/CON Initially a noncontrast CT of the brain is performed. Sagittal axial and reformatted images are submitted for interpretation. CTA of the head and neck is performed after intravenous administration of 100 ccof Isovue 370. Sagittal axial and coronal reformatted images are submitted for interpretation. 3D surface rendered imaging through the vasculature is obtained. Sagittal coronal reformatted MIP images are submitted for interpretation One or more dose reduction techniques were used (e.g., Automated exposure control, adjustment of the mA and/or kV according to patient size, use of iterative reconstruction technique. RADIATION DOSE SUMMARY: Head CT: DLP: 796.11 MGycm CTA head and neck: DLP: 828.51 MGycm FINDINGS: CT brain: No acute intracranial hemorrhage midline shift or mass effect is appreciated. The ventricles are normal in size and contour. There is no intra-axial mass. No subarachnoid or subdural hematoma seen. No extra-axial fluid collection or mass appreciated. Orbits are intact. Pituitary fossa is within normal limits. Posterior fossa and brainstem and cerebellar hemispheres appear normal. Mucoperiosteal thickening and opacification of the maxillary sinuses noted bilaterally. There is slight nasal septal deviation to the right of midline. Mastoid air cells are well aerated. Base of the skulland visible osseous structures appear normal. No soft tissue abnormality seen. CTA NECK: The origins of the vessels arising from the aortic arch are patent without high- grade stenosis. Right carotid artery: The right common carotid artery is patent without high- grade stenosis. The right cervical internal carotid artery is patent without hemodynamically significant stenosis. Left carotid artery: The left common carotid artery is patent without high- gradestenosis. The left cervical internal carotid artery is patent without hemodynamically significant stenosis. Cervical vertebral arteries: The cervical vertebral arteries are patent without high-grade stenosis. Assessment for carotid stenosis is performed utilizing NASCET criteria. NASCET carotid stenosis criteria: 0% - none, 1-49% - mild, 50-69% - moderate, 70-89% - severe, 90-99% - critical. % ICA stenosis = (normal distal cervical ICA diameter - narrowest cervical ICA diameter / normal distal cervical ICA diameter) x 100. CTA Head: The petrous, cavernous, and intracranial internal carotid arteries are patent without high-grade stenosis. The proximal anterior cerebral arteries are patent without high-grade stenosis. The proximal middle cerebral arteries are patent without high-grade stenosis. The intradural vertebral arteries are patent without high-grade stenosis. The basilar artery is patent without high-grade stenosis. The proximal posterior cerebral arteries are patent without high-grade stenosis. No dominant intracranial aneurysm or high flow arteriovenous malformation is identified. Ancillary findings: None. Mild degenerative disc disease at C5-6 and C6-7. CT/STROKE Brain/Head without Cont IMPRESSION: No acute intracranial abnormality. No evidence of large territorial ischemic infarct. Normal CTA of the head and neck and iagupj-vi-Cvahbx. Stroke Alert: No acute intracranial abnormality. No large vessel occlusion. No large territorial infarct. The critical findings in the findings and impression above were relayed directlyby me by telephone to Ermias German on 12/01/2024 at 12:58 pm with readback verification. Reading Location: [id number] CC: Dr. Ermias German DO; [facility] ~ Space Control Agent: Signed [facility]10-05-2025 Radiology Diagnostic study note [facility] [address] [place] [address] STROKE CTA Head AND Neck W/Con MR#: [id number] Acct: [id number] Name: KRISHAN BURNHAM Rep #: [id number] : 1965 M 59 From: Renny Winston MD PCP: [facility] Status: REG ER Study:STROKE CTA Head AND Neck W/Con Date of Exam: 12/01/24 Exam# [id number] Ordering Dr: Aaliyah German DO PROCEDURE: STROKE BRAIN/HEAD WITHOUT CONT; STROKE CTA HEAD AND NECK W/CON 12/01/2024 REASON FOR EXAM: NEURO DEFICIT, ACUTE, STROKE SUSPECTED TECHNIQUE: Procedure Code: CTBR.ST; CTCTA.ST.HN Modality: CT Procedure: STROKE BRAIN/HEAD WITHOUT CONT; STROKECTA HEAD AND NECK W/CON Initially a noncontrast CT of the brain is performed. Sagittal axial and reformatted images are submitted for interpretation. CTA of the head and neck is performed after intravenous administration of 100 ccof Isovue 370. Sagittal axial and coronal reformatted images are submitted for interpretation. 3D surface rendered imaging through the vasculature is obtained. Sagittal coronal reformatted MIP images are submitted for interpretation One or more dose reduction techniques were used (e.g., Automated exposure control, adjustment of the mA and/or kV according to patient size, use of iterative reconstruction technique. RADIATION DOSE SUMMARY: Head CT: DLP: 796.11 MGycm CTA head and neck: DLP: 828.51 MGycm FINDINGS: CT brain: No acute intracranial hemorrhage midline shift or mass effect is appreciated. The ventricles are normal in size and contour. There is no intra-axial mass. No subarachnoid or subdural hematoma seen. No extra-axial fluid collection or mass appreciated. Orbits are intact. Pituitary fossa is within normal limits. Posterior fossa and brainstem and cerebellar hemispheres appear normal. Mucoperiosteal thickening and opacification of the maxillary sinuses noted bilaterally. There is slight nasal septal deviation to the right of midline. Mastoid air cells are well aerated. Base of the skulland visible osseous structures appear normal. No soft tissue abnormality seen. CTA NECK: The origins of the vessels arising from the aortic arch are patent without high- grade stenosis. Right carotid artery: The right common carotid artery is patent without high- grade stenosis. The right cervical internal carotid artery is patent without hemodynamically significant stenosis. Left carotid artery: The left common carotid artery is patent without high- gradestenosis. The left cervical internal carotid artery is patent without hemodynamically significant stenosis. Cervical vertebral arteries: The cervical vertebral arteries are patent without high-grade stenosis. Assessment for carotid stenosis is performed utilizing NASCET criteria. NASCET carotid stenosis criteria: 0% - none, 1-49% - mild, 50-69% - moderate, 70-89% - severe, 90-99% - critical. % ICA stenosis = (normal distal cervical ICA diameter - narrowest cervical ICA diameter / normal distal cervical ICA diameter) x 100. CTA Head: The petrous, cavernous, and intracranial internal carotid arteries are patent without high-grade stenosis. The proximal anterior cerebral arteries are patent without high-grade stenosis. The proximal middle cerebral arteries are patent without high-grade stenosis. The intradural vertebral arteries are patent without high-grade stenosis. The basilar artery is patent without high-grade stenosis. The proximal posterior cerebral arteries are patent without high-grade stenosis. No dominant intracranial aneurysm or high flow arteriovenous malformation is identified. Ancillary findings: None. Mild degenerative disc disease at C5-6 and C6-7. CT/STROKE CTA Head AND Neck W/Con IMPRESSION: No acute intracranial abnormality. No evidence of large territorial ischemic infarct. Normal CTA of the head and neck and dhubua-kb-Zcagcq. Stroke Alert: No acute intracranial abnormality. No large vessel occlusion. No large territorial infarct. The critical findings in the findings and impression above were relayed directlyby me by telephone to Ermias German on 12/01/2024 at 12:58 pm with readback verification. Reading Location: [facility] CC: Dr. Ermias German DO; [facility] ~ Space Control Agent: Signed [facility]09-29-2025 Evaluation note* Diagnosis Onset Date Resolution Status Admit Date Difficulty swallowing acute Sep 2024 8:14am Melena acute October 8:14am Neurologic abnormality acute Oc tober 2024 2:10pm [facility] Work Phone: 1(461) 416-617009-29-2025 [facility] [address] [place] [address] OFFICE VISIT Date of Service: 11/25/24 MR#: [id number] Acct: [id number] Name: KRISHAN BURNHAM Rep #: [id number] : 1965 Provider: Dr. Mya Chavez MD Age/Sex: 59/M Location: [facility] Status: Signed Intake Vital Signs 10/27/24 14:51 [...] Q2W 5 11/25/24 History intramuscular oil (Depo-Testosterone) PFSH Medical History BMI [...] issues. First he is having melanotic stools occasionally.He reports they are foul-smelling and he reports that he is having bloating and diarrhea after eating. He is on omeprazole and famotidine. He also reports he is having difficulty swallowing with foodgetting stuck in his esophagus. He is also having left lower quadrant pain thathas been chronic sinc e his colectomy 3 years ago. He reports [...] cough, No COPD, No asthma, No emphysema andNo wheezing Gastro Gastrointestinal: Yes abdominal pain, Yes [...] lack of coordination, No loss ofvision, No memoryloss, No numbness, No other visual disturbances, No [...] proceed with procedure. I did explain the increasedrisk of bleeding and perforation with dilation of the esophagus. Patient understands all the risks. Jay Chavez MD Pager: [facility] [address] [place] [address], [address] [place] [address] Office: Coding Level of Care Code Off vis,est,level 3 Diagnoses Difficulty swallowing R13.10 Melena K92.1 11/25/24 0845 chele REDD> Date _ Jay Chavez MD Cosigner Signature: Date (if applicable) CC: ~ [facility]08-31-2025 Radiology Diagnostic study note [facility] [address] [place] [address] Abdomen/Pelvis W IV Cont ONLY MR#: [id number] Acct: [id number] Name: KRISHAN BURNHAM Rep #: [id number] : 1965 M 59 From: Dhiraj Beasley MD PCP: [facility] Status: REG ER Study:Abdomen/Pelvis W IV Cont ONLY Date of E xam: 10/27/24 Exam# [id number] Ordering Dr: Ramirez Navarro MD PROCEDURE: ABDOMEN/PELVIS [...] The lung bases are clear [facility] CC: Dr. Javy Navarro MD; [facility] ~ Space Control Agent: Signed [facility]07-22-2025 Radiology Diagnostic study note [facility] [address], [place] [id number] CTA Chst, Abd, Pel W and/or WO MR#: [id number] Acct: [id number] Name: KRISHAN BURNHAM Rep #: [id number] : 1965 M 59 From: Hero Gale MD PCP: [facility] Status: REG ER Study:CTA Chst, Abd, Pel W and/or WO Date of Exam: 09/17/24 Exam# [id number] Ordering Dr: Bib Beavers DO PROCEDURE: CTA [...] Location: [facility] CC: Dr. Bib Beavers DO; [facility] ~ Space Control Agent: Signed [facility]05-04-2025 Hospital Discharge instructions Patient Education 06/29/2024 23:48:29 [...] your healthcare provider, go to a hospital emergencyroom or urgent care center. Call 911 Call 911 if you have any of the following: Confusion Dizziness, lightheadedness, or loss of consciousness Shortness of breath Chest pain Weakness of an arm, leg, or one side of the face Sudden trouble with speech or vision [phone] [employer]. [address] [place] [address], [place] [address]. All rights reserved. This information is not intended as a substitute for professional medical care. Always follow yourhealthcare professional's instructions. Follow Up Care 06/29/2024 21:32:20 With:Go to emergency room if symptoms worsen Address:Unknown When:2-4 days With:VINOD ACUÑA CNP Address: [address] [place] [address], [place] [address] [id number] When:2-4 days [facility] 05-04-2025 Note Discharge Instructions Thank you for allowing [facility] to assist you with your healthcare needs. The following is importantdischarge information regarding your hospital visit. Diagnosis from [...] emergency department for more emergent evaluation. Please noteyour platelets were below the normal range and your PCP may want to repeat blood counts to further evaluate this. No qualifying data available. Post Acute Orders No qualifying data available. You Need to Schedule the Following Appointments Follow Up with Go to emergency room if symptoms worsen When:Within 2-4 days Follow Up with VINOD ACUÑA CNP When:Within 2-4 days Where:[address] [place] [address], [place] [address] [phone] Allergies NKA Medications Please ask your primary doctor or pharmacist before taking any other medication not listed, including over the counter drugs, herbal medications, vitamins and or supplements as they may interact withyour home medications. Please take this list to [...] your healthcare provider, go to a hospital emergencyroom or urgent care center. Call 911 Call 911 if you have any of the following: Confusion Dizziness, lightheadedness, or loss of consciousness Shortness of breath Chest pain Weakness of an arm, leg, or one side of the face Sudden trouble with speech or vision [phone] [employer]. [address] [place] [address], [place] [address]. All rights reserved. This information is not intended as a substitute for professional medical care. Always follow yourhealthcare professional's instructions. Additional Information VACCINATE! IT SAVES LIVES! Members of the community who have not yet received the COVID-19 vaccine and would like to receive it can visit one of [facility] vaccine clinics. There are many vaccine clinic locations within the [facility]. For locations and available times, please visit www.gettheshot.coronavirus.[place].gov/. It is important to note that some COVID mobile vaccine clinics are held outdoors and may be canceled in rainy or stormy conditions. To learn more about pediatric vaccinations (ages 5-11), we invite you to visit the [facility] webpage. https://www.[facility].org/pages/0631-Wkkfg-Ukyptdfsedt-Gtbudijbzw-Qtbpe-Jqv stions.htmlTo learn more about the COVID-19 vaccine, we invite you to visit the CDC website for a list of frequently asked questions. https://www.cdc.gov/coronavirus/2019-ncov/vaccines/faq.html [facility] Patient Portal Access Instructions: Stay connected with your healthcare team and access your personal medical information anytime with the [facility] Patient Portal. If you would like a full copy of your medical records please contact the [facility] Medical Records Department Monday through Monday between 8a.m. and 4:30p.m. Please follow the directions below to access the portal: 1.Access the email account you provided upon registration to the [facility].2.Look for an invitation email from [facility].3.Open the email and access the invitation link: Accept Invitation to [facility]4.Fill in the required robles to create your account. Sign into www.Gradeable with your username and password that you [...] you will allow to register on the [facility] Patient Portal for access to your information. You can also access the [facility] Patient Portal on the [employer] luli. Simply click on Health Records under [employer] and then click on the [facility] logo. HOW TO SAFELY DISPOSE OF PRESCRIPTION MEDICATIONS Please use one of the following methods to safely dispose of your unused medications. 1.Use a drug disposal kit: the drug disposal pouch allows you to safely discard your old and unuseddrugs. Ask your nurse to give you one when you are discharged.2.Visit a local take-back location: Many local pharmacies and police departments have programs that collect old and unwanted prescriptiondrugs. Call your local pharmacy or go to http://[employer].Aunt Group/3R5Yt1f to find one close to you.3.Make use of household items: Use cat litter or old coffee grounds to dispose medications if other options arenot available. Mix your drugs with these household products, seal them in an airtight container andthrow it into the garbage. Call [facility]: [phone] to be sure your drugs can be [...] drowsiness, such as benzodiazepines, also known as benzos,including diazepam and alprazolam, muscle relaxants or sleep aids. Never sell or share prescriptionopioids. This is illegal. Store opioids in a secure place and out of reach of others (including children, family, friends and visitors). The last page(s) of this document has been signed and retained as a CHART COPY Signatures Patient Education Materials Diabetes with High Blood Sugar Medication Leaflets My discharge plan and instructions have been reviewed and explained to me and I,KRISHAN BURNHAM understand my current condition and have read and understand these discharge instructions. I have received a written copy of the plan/instructions. If I have questions, I am aware that I should contact my d octor. 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 Interpreted by: Henry Khoury Preliminary Report By: Eva Gutierrez Electronically signed By Henry Khoury Dictated Date: 06/29/2024 10:49:34 PM Prelim Date: 06/29/2024 10:52:30 PM Sign Date: 06/29/2024 10:57:23 PM Ordering Provider: CARMELA CORRALES [facility]05-03-2025 Note* Exam Date Time Procedure Performing Provider Status 06/29/24 10:39 PM XR Chest 1 View HENRY KHOURY MD; Aut h (Verified) [id number] ORIGINAL EXAMINATION: ONE XRAY VIEW OF THE [...] the resident's findings and interpretation. Interpreted by: Henry Khoury Preliminary Report By: Eva Gutierrez Electronically signed By Henry Khoury Dictated Date: 06/29/2024 11:00:14 PM Prelim Date: 06/29/2024 11:02:01 PM Sign Date: 06/29/2024 11:06:58 PM Ordering Provider: CARMELA CORRALES [facility]05-03-2025 Note* Exam Date Time Procedure Performing Provider Status 06/29/24 9:56 PM EKG [ED AOH] - CV CARMELA CORRALES ; Macey h (Verified) ECG Final Report Sinus rhythm Borderline left axis deviation RSR' in V1 or V2, right VCD or RVH Baseline wander in lead(s) V3 Electronic Signature: BOYD CORRALESILY 06/29/2024 22:00:54 [facility]04-05-2025 NoteHNO ID: [id number] Author: TILA REYES APRN.[facility] Service: ? Author Type: Nurse Practitioner Type: [...] history is provided by the patient. No educational speech language clinician was used. Sinus Problem Associated symptoms include [...] Patient agreeable to care plan. Tila Reyes APRN.CNP History and Record Review External record(s) reviewed: no prior records. Disposition [facility] was [facility]. [facility] of Present illness Narrative* Tila Reyes APRN.CNP - 06/01/2024 10:10 AM EDT [facility] [...] history is provided by the patient. No educational speech language clinician was used. Sinus Problem Associated symptoms include [...] Patient agreeable to care plan. Tila Reyes APRN.CNP History and Record Review External record(s) reviewed: no prior records. Disposition The patient was discharged. [facility] Discharge summary Author Xavi Orlando [facility] March 16, 2023 8:24pm Note Date/Time March 16, 2023 5 :28pm [facility] Medical Records Department [address] [place] [address] Emergency Department Summary 03/16/23 MR#: [id number] Acct: [id number] Name: KRISHAN BURNHAM Rep #:[id number] : 1965 57 From: Xavi Orlando DO [facility] Status:REG ER Location: ED HPI History of [...] Carafate, Protonix 80 mg twice daily, Pepcid. [facility] Medical History (Updated 03/16/23 @ 19:37 by [...] powder packet 17 g PO QHS PRN [id number]/04/22 [History Last Taken 03/15/23] prazosin 5 mg [...] Taken Unknown] sodium chloride-aloe vera nasal gel (Grabill Saline nasal gel) 1 applic intranasal DAILY [...] % (Auto) 63.8 Lymph % (Auto) 23.2 Coamo % (Auto) 9.7 Eos % (Auto) 2.5 [...] Signed: Marlon Alex MD at 17:47 EST Reading Location ID and State: [facility] / [place] Tel , Service support , Discharge Plan Triage Chief Complaint: Chest [...] 100 mg/mL suspension 1 g PO 4X/DAY Grabill Saline Gel 1 applic intranasal DAILY [facility] [Primary Care Provider] - Capacity Legal Machine Ii Cutter Reflex Medical hold order details:: IF a medical hold is selected below, a suggested order for a MEDICAL HOLD will reflex upon signing the document. Next of kin: [place] law dictates a PRIORITY LIST for identifying [...] your Primary Care Provider. Call [facility] ([phone]) or report to the closest Emergency Room. Call 911 if necessary. 03/16/232023 <Electronically signed by Xavi Orlando DO> Cosigner Signature (if applicable): CC: [facility] ~ Signed [facility] Work Phone: 1(296) 747-208501-01-2024 Hospital Discharge instructionsAdditional Instructions Your cardiac workup [...] Monitor for any black or bloody stools. [facility] Work Phone: 1(637) 317-822811-14-2023 Discharge summary Author Flavio Concepcion [facility] January 10, 2023 6:59pm Note Date/Time January 10, 2023 5:45pm [facility] Medical Records Department [address] [place] [address] Emergency Department Summary 01/10/23 MR#: [id number] Acct: [id number] Name: KRISHAN BURNHAM Rep #:[id number] : 1965 57 From: Flavio Concepcion MD [facility]CP: [facility] Status:REG ER Location: ED HPI History of [...] presents with strokelike symptoms that started at 1644. He has altered sensation and weaknesson the [...] Prior similar symptoms: No Recent Illness/Hospitalization: No PFSH [facility] Medical History Abdominal pain Acute cerebrovascular accident [...] bilaterally and No no sensory deficits noted [place] Coma Scale: document GCS findings Spontaneous Obeys [...] % (Auto) 64.2 Lymph % (Auto) 23.5 Coamo % (Auto) 10.0 Eos % (Auto) 1.8 [...] CTA 01/10/23 17:34 IMPRESSION: undefined ADDENDUM: 01/10/23 1822 IMPRESSION: undefined Brain CT 01/10/23 17:35 IMPRESSION: [...] per computer.) Management Discussion w/another healthcare provider: Project Manager/Design Manager and Pharmacist Treatment and Re-Evaluation Narrative: Because [...] of CT and CTA.), Discussing w/Patient &/or Family/Lock Tender Chief Operator (Regarding risk benefits of TNK.), Discussing w/Consultants (Radiologist for the unenhancedscan, a different radiologist for the CTA of the head neck, neurologist at [facility] and the hospitalist) and Arranging Admission or Transfer (Hospitalist and billing department supervisor for ICU bed) Discharge Plan Triage [...] Q6H Qty: 28 0RF [facility] [facility] [Primary Care Provider] - Disposition Disposition: Acute Care Hospital [facility] What to do if you have Problems For any increased pain, shortness of breath, bleeding, nausea or vomiting, chestpain, or any unexpected problems, contact your Primary Care Provider. Call [facility] ([phone]) or report to the closest Emergency Room. Call 911 if necessary. 01/10/231835 <Electronically signed by Flaivo Concepcion MD> Cosigner Signature (if applicable): CC: [facility] ~ Signed ADDENDUM by Dr. Flavio Concepcion MD on 01/10/23 at 1859 Repeat EKG was obtained because of persistent chest pain. EKG reveals a sinus rhythm with first-degree AV block. Rate 64. Parables 210 ms. Cures duration 92 ms. QT duration 382 ms. [place] is normal. Question of LVH by voltage criteria. 01/10/231858<Electronically signed by Flavio Concepcion MD> Cosigner Signature (if applicable): cc: [facility] ~* Signed [facility] Work Phone: 1(552) 603-479105-08-2023 History and physical note Author Timur Friend [facility] July 04, 2022 8:35am Note Date/Time July 04, 2022 8:35am [facility] Medical Records Department [address] [place] [address] History & Physical Exam 07/04/22 0834 MR#: [id number] Acct: [id number] Name: KRISHAN BURNHAM Rep #:[id number] : 1965 56 From: Timur Abreu DO PCP: [facility] Status:REG [facility] Location: [place] [address] History and Physical Date of Admission: 07/04/22 [...] an hour, worse with GI cocktail at [place] cocktail, better with milk and a little [...] Mood: congruent mood Quality Reporting Tobacco Screening ([facility] 138) Smoking Status: Former smoker Assessment and [...] CC: ARGENTINA Lugo; Timur Abreu DO~ Signed [facility] Work Phone: 1(346) 937-789105-08-2023 Procedure [facility] 07-04-2022 Procedure [facility]05-08-2023 Procedure note [facility]05-08-2023 Procedure [facility] 09-10-2020 Chief complaint Narrative - Reported* An interactive audio and video telecommunication system which permits real time communications between the patient (at the originating site) and provider (at the distant site) was utilized to providethis telehealth service. * Verbal consent was requested and obtained from KRISHAN BURNHAM on this date, 09/10/2020 04:00 PM , fora telehealth visit. * VIRTUAL: [id number]. Cpap not working [facility] Work Phone: consult note Author Dimitrios Shafer [facility] Note Date/Time December 02, 2024 4: 16pm [facility] Medical Records Department [address] [place] [address] Counseling Note - Pharmacy 12/02/24 1615 MR#: [id number] Acct: [id number] Name: KRISHAN BURNHAM Rep #:[id number] : 1965 59 From: Dimitrios Shafer PCP: [facility] Status:ADM DAVIAN Y Location: [place] [address] [facility] Counseling Pharmacy Service has performed discharge medication reconciliation and counseling for this patient. The patient's discharge medication list was reviewed for discrepancies and discrepancies were resolved. The patient was counseled on the following discharge medications and changes in medications for homegoing were reviewed. The Reason for Use, instructions for use, and potential side effects were reviewed for all new medications. The patient's questions regarding all of their medications were answered. 1. Aspirin 81 mg PO daily The patient was able to verbally demonstrate an understanding of their dischargemedications. Medications at Discharge Home Medications melatonin 3 mg tablet 9 mg PO QHS SLEEP 05/12/19 trazodone 100 mg tablet 300 mg PO QHS SLEEP 05/12/19 famotidine 20 mg tablet 20 mg PO BID GERD 02/17/20 propranolol 10 mg tablet 10 mg PO BID HYPERTENSION AND ANXIETY 02/16/21 carbidopa ER 36.25 mg-levodopa 145 mg capsule,extended release (Rytary) 4 cap PO4X/DAY Parkinsons 11/30/21 cholecalciferol (vitamin D3) 50 mcg (2,000 unit) tablet 50 mcg PO DAILY SUPPLEMENT 11/30/21 diltiazem HCl 60 mg tablet 60 mg PO BID HYPERTENSION/AGINA 11/30/21 empagliflozin 25 mg tablet (Jardiance) 25 mg PO DAILY DIABETES 11/30/21 prazosin 5 mg capsule 10 mg PO QHS HYPERTENSION 11/30/21 duloxetine 60 mg capsule,delayed release 120 mg PO DAILY DEPRESSION 03/29/22 diclofenac sodium 1 % topical gel 4 g topical BID PRN OSTEOARTHRITIS 03/16/23 gabapentin 300 mg capsule 300 mg PO QHS RESTLESS LEG SYNDROME 03/16/23 sildenafil 100 mg tablet 100 mg PO DAILY PRN sexual activity 03/16/23 pantoprazole 40 mg tablet,delayed release 40 mg PO QDAY GERD 11/25/24 rosuvastatin 20 mg tablet 20 mg PO QDAY HIGH CHOLESTEROL 11/25/24 testosterone cypionate 200 mg/mL intramuscular oil (Depo-Testosterone) 200 mg IMQ2W LOW TESTOSTERONE 11/25/24 clonazepam 1 mg tablet (Klonopin) 1 mg PO QHS PANIC DISORDER 12/01/24 hydrochlorothiazide 12.5 mg capsule 12.5 mg PO DAILY HYPERTENSION 12/01/24 quetiapine 25 mg tablet 75 mg PO QHS NIGHT TERRORS 12/01/24 aspirin 81 mg chewable tablet 81 mg PO BREAKFAST 30 days #30 tabs 12/02/24 12/02/24 1616 <Electronically signed by Dimitrios Hartzle r> Date _ Dimitrios Fajardo Signature (if applicable): Date CC: ~ Signed [facility] Work Phone: Discharge summary Author Temi Katz [facility] Note Date/Time December 02, 2024 4: 04pm [facility] Medical Records Department [address] [place] [address] Instructions for Home/Discharge Instructions 12/02/24 1603 MR#: [id number] Acct: [id number] Name: KRISHAN BURNHAM Rep #:[id number] : 1965 59 From: Temi Katz MD [place]CP: [facility] Status:ADM DAVIAN Discharge Instructions DC O2, CPAP, BIPAP needs Home O2 Discharge instructions: No Dressing / Incision Discharge Activity: - (Increase activity as tolerated) Follow Up Care Test Results: Test results from this visit will be discussed in further detail at your follow- up appointment, if applicable. Discharge Plan Admission Admit Date/Time: 12/01/24 14:10 Primary Reason for Your Visit: Abnormal neurological symptoms Attending Provider: Temi Katz Primary Care Provider: [facility] Consulting Providers: Nehemiah Metzger; Delores Mcclendon; Lily Smith; Judy Garcia; Liv Rm; Michael Hanna; Jaquelin Sloan; Dylan Tipton; Enrike Ulrich; Moe Herrera; Deya Woodward; Shelia Weathers; Collin Covington; Tracie Houston; John Escalona; Nelda Ayala; Figueroa Joshi; Gareth Maya; Jimmie Chavez; Kellen Dunbar; Latricia Gross Instructions Patient Instructions: TIA Dc Additional Instructions / Restrictions: DISCHARGE INSTRUCTIONS PLEASE READ *Please take this with you to your next doctors appointment* -It is recommended that you take an aspirin daily, you indicated that you are not taking Plavix so this has been discontinued off of your medicine list - Advised that you follow-up with your primary care physician regarding your elevated cholesterol and continue to take your rosuvastatin, you also need to continue your Jardiance but will need to follow-up with your primary care doctorregarding your blood sugars still being elevated -Please call upon discharge to schedule a close follow-up with your neurologist -Please call your primary care provider's office upon discharge to schedule a hospital follow up within 1 week. -For any concerning signs or symptoms please call 911 or proceed to the nearest emergency department Discharge Orders/Prescriptions Prescriptions: New aspirin 81 mg Tablet,Chewable 81 mg PO BREAKFAST 30 Days Qty: 30 0RF Continued propranolol 10 mg tablet 10 mg PO BID duloxetine 60 mg capsule,delayed release(DR/EC) 120 mg PO DAILY pantoprazole 40 mg tablet,delayed release (DR/EC) 40 mg PO QDAY testosterone cypionate [Depo-Testosterone] 200 mg/mL oil 200 mg IM Q2W rosuvastatin 20 mg tablet 20 mg PO QDAY melatonin 3 MG tablet 9 mg PO QHS trazodone 100 MG tablet 300 mg PO QHS famotidine 20 MG tablet 20 mg PO BID prazosin 5 mg Capsule 10 mg PO QHS diltiazem HCl 60 mg Tablet 60 mg PO BID cholecalciferol (vitamin D3) 50 mcg (2,000 unit) Tablet 50 mcg PO DAILY Jardiance 25 mg Tablet 25 mg PO DAILY Rytary 36.25-145 mg Capsule, Extended Release 4 cap PO 4X/DAY Rx Instructions: takes at 7am,11am,3pm,7pm DO NOT CRUSH OR CHEW, SWALLOW WHOLE diclofenac sodium 1 % gel 4 g topical BID PRN (Reason: OSTEOARTHRITIS) gabapentin 300 mg capsule 300 mg PO QHS sildenafil 100 mg tablet 100 mg PO DAILY PRN (Reason: sexual activity) hydrochlorothiazide 12.5 mg capsule 12.5 mg PO DAILY Patient Comments: I DON'T TAKE IT BECAUSE IT MAKES ME PEE ALL THE TIME. Rx Instructions: TAKE WITH FOOD quetiapine 25 mg tablet 75 mg PO QHS clonazepam [Klonopin] 1 mg tablet 1 mg PO QHS Rx Instructions: administer 30 minutes before bedtime Discontinued clopidogrel 75 mg tablet 75 mg PO DAILY Patient Comments: NO ONE CAN AGREE UPON WHATEVER SO, I WON'T TAKE IT. HE WAS TRYING TO PUSH DEEP BRAIN STIMULATION, SO I WOULD'VE HAD TO COME OFF OF THAT Referrals / [place] [Primary Care Provider, None] - Within 1 Week Disposition Disposition (needs filled in before D/C Order can be placed): Home, Self Care 12/02/244<Electronically signed by Temi Katz MD>Temi Katz MD CC: Judy Garcia; Tracie Houston; Figueroa Joshi; Liv Rm MD; Lily Smith MD; Nehemiah Metzger MD; Dr. Delores Mcclendon MD; Dr. Michael Hanna MD; Dr. Lizzette MD; Dr. Enrike Ulrich MD; Dr. Dylan Tipton MD; Dr. Moe Herrera MD; Dr. Deya Woodward DO; Dr. Collin Covington DO; Dr. Nelda Ayala MD; Dr. John Escalona MD; Dr. Gareth Maya MD; Dr. Jimmie Chavez MD; Dr. Kellen Dunbar MD; Shelia Weathers DO; [facility]; Latricia Gross MD ~ Signed [facility] Work Phone: Discharge summary Author Temi [facility] Note Date/Time December 02, 2024 4: 16pm [facility] Medical Records Department [address] [place] [id number] Discharge Summary 12/02/24 1605 MR#: [id number] Acct: [id number] Name: KRISHAN BURNHAM Rep #:[id number] : 1965 59 From: Temi Katz MD [facility] Status:DIS DAVIAN Location: [place] [id number] Providers Date of Admission: 12/01/24 Date of Discharge: 12/02/24 Primary Care Physician: [facility] Consultations 12/01/24 14:37 Consult: Tele-Neurology Routine Consulting Provider: [facility] Reason for Consult: Acute Ischemic Stroke/TIA EMERGENT Consult: No MD Notified: Yes Date Notified: 12/01/24 Time Notified: 14:39 Method of Notification: Answering Service Nursing Unit Staff Notify [facility] of Tele-Neurology Consult: Yes Reason For Visit: CVA R/O Diagnosis Discharge Diagnosis (1) Neurologic abnormality: Status: Acute Code(s): R29.818 - Other symptoms and signs involving the nervous system Plan # Left-sided weakness and facial paresthesias- resolved # History of CVA # Parkinson's disease #Type 2 diabetes mellitus #Hypertension #Depression/anxiety #GERD Medications at Discharge Home Medications melatonin 3 mg tablet 9 mg PO QHS SLEEP 05/12/19 trazodone 100 mg tablet 300 mg PO QHS SLEEP 05/12/19 famotidine 20 mg tablet 20 mg PO BID GERD 02/17/20 propranolol 10 mg tablet 10 mg PO BID HYPERTENSION AND ANXIETY 02/16/21 carbidopa ER 36.25 mg-levodopa 145 mg capsule,extended release (Rytary) 4 cap PO4X/DAY Parkinsons 11/30/21 cholecalciferol (vitamin D3) 50 mcg (2,000 unit) tablet 50 mcg PO DAILY SUPPLEMENT 11/30/21 diltiazem HCl 60 mg tablet 60 mg PO BID HYPERTENSION/AGINA 11/30/21 empagliflozin 25 mg tablet (Jardiance) 25 mg PO DAILY DIABETES 11/30/21 prazosin 5 mg capsule 10 mg PO QHS HYPERTENSION 11/30/21 duloxetine 60 mg capsule,delayed release 120 mg PO DAILY DEPRESSION 03/29/22 diclofenac sodium 1 % topical gel 4 g topical BID PRN OSTEOARTHRITIS 03/16/23 gabapentin 300 mg capsule 300 mg PO QHS RESTLESS LEG SYNDROME 03/16/23 sildenafil 100 mg tablet 100 mg PO DAILY PRN sexual activity 03/16/23 pantoprazole 40 mg tablet,delayed release 40 mg PO QDAY GERD 11/25/24 rosuvastatin 20 mg tablet 20 mg PO QDAY HIGH CHOLESTEROL 11/25/24 testosterone cypionate 200 mg/mL intramuscular oil (Depo-Testosterone) 200 mg IMQ2W LOW TESTOSTERONE 11/25/24 clonazepam 1 mg tablet (Klonopin) 1 mg PO QHS PANIC DISORDER 12/01/24 hydrochlorothiazide 12.5 mg capsule 12.5 mg PO DAILY HYPERTENSION 12/01/24 quetiapine 25 mg tablet 75 mg PO QHS NIGHT TERRORS 12/01/24 aspirin 81 mg chewable tablet 81 mg PO BREAKFAST 30 days #30 tabs 10/06/25 Hospital Course Procedures Transthoracic echo Summary of Care Provided Minutes Spent on Discharge: 33 Hospital Course: Per HPI: KRISHAN BURNHAM, is a 59-year-old male history of GERD, Parkinson's, hypertension, diabetes, CVA, depression and anxiety who presented [facility] ED 12/01/2024 due to waking up with left neck pain, left-sidedtunnel vision, left-sided weakness and pain with swallowing. Stroke call made in the ED. Temp 98.7, heart rate of 80, blood pressure 155/98, respirate 16 pulse ox 98% on room air. CBC unremarkable, troponin 9, BMP with bicarb of 13 and a gap of 20 with glucose 178 otherwise within normal limits CT brain and CT head and neck no acute process, teleneurology evaluated and recommended admission for stroke rule out. Hospitalist contacted for admission. Patient evaluated at bedside. Pt reportedly woke up this AM with a right sided headache,left eye tunnel vision, whole left half of his face with tingling as well as reported weakness of left upper and lower extremity but primarily was reporting increase in joint pain in all of the joints on his left side. Additionally he reported some increased difficulty swallowing, has had difficulty swallowing recently and is supposed to undergo an outpatient swallow eval but said this morning he noticed it was worse. Presently in the ED still has slight headache and reports all of the symptoms are better than they were but still present. Denies fevers or chills, does have chronic abdominal pain with intermittent diarrhea and constipation and some nausea for which she is scheduled to undergo outpatient colonoscopy and upper endoscopy. Interval history: Patient's symptoms completely resolved overnight, MRI negativefor CVA. Neurology evaluated and is unclear if patient had TIA versus migraine with aura, aspirin and statin recommended and it is recommended the patient follow-up with his neurologist. Patient had echo ordered on presentation however was unable to be done this morning, when they returned to do it in the afternoon patient refused and requested discharge, patient has had a previous negative bubble study, has no new cardiac complaints or other compelling indication for emergent repeat echocardiogram, given stability and patient's willingness to follow closely with his neurologist on discharge feel it is reasonable to discharge patient and advise to take aspirin, statin, and follow-up with neurology. Patient with no new or acute complaints on day of discharge,neurologic symptoms completely resolved aside from occasional difficulty with swallowing which is chronic and he is already scheduled for outpatient workup. Discussed his home Plavix which she has not been taking, he notes his neurologist told him to take aspirin but another doctor told him Plavix so he has been taking neither, or teleneurology also recommended aspirin and statin, discussed with patient he is agreeable to taking aspirin. Discharge instructions as follows: -It is recommended that you take an aspirin daily, you indicated that you are not taking Plavix so this has been discontinued off of your medicine list - Advised that you follow-up with your primary care physician regarding your elevated cholesterol and continue to take your rosuvastatin, you also need to continue your Jardiance but will need to follow-up with your primary care doctorregarding your blood sugars still being elevated -Please call upon discharge to schedule a close follow-up with your neurologist -Please call your primary care provider's office upon discharge to schedule a hospital follow up within 1 week. -For any concerning signs or symptoms please call 911 or proceed to the nearest emergency department Physical Exam Narrative General: Alert, oriented, no apparent distress HEENT: Atraumatic, normocephalic Eyes: Anicteric, normal conjunctiva, extraocular movements grossly intact Neck: Supple Respiratory: normal respiratory effort Cardiovascular: Regular rate and rhythm GI: Nondistended Extremities: No significant pitting edema Musculoskeletal: Moving all extremities symmetrically, 5 out of 5 strength in bilateral lower extremities Neuro: No overt focal neurological deficits Skin: No rashes appreciated Psych: Overall cooperative Weight / BMI Weight Weight: 105.8 kg Body Mass Index (BMI) 33.5 ABG / Lab / Microbiology Data 12/02/24 05:20 12/02/24 05:20 Laboratory: Laboratory Results - last 24 hr 12/01/24 16:51: POC Glucose 118 H 12/01/24 21:54: POC Glucose 123 H 12/02/24 05:20: WBC 5.9, RBC 4.71, Hgb 13.7, Hct 39.8 L, MCV 84.5, MCH 29.1, MCHC 34.4, RDW Std Deviation 39.8, RDW Coeff of Gail 13.1, Plt Count 131 L, MPV 10.0, Immature Gran % (Auto) 0.500, Neut % (Auto) 58.2, Lymph % (Auto) 26.4, Coamo % (Auto) 9.6, Eos % (Auto) 4.6, Baso % (Auto) 0.7, Absolute Neuts (auto) 3.5, Absolute Lymphs (auto) 1.56, Nucleated RBC % 0, Sodium 136, Potassium 3.8, Chloride 106, Carbon Dioxide 14.7 L, Anion Gap 15, BUN 16, Creatinine 0.87, Estim Creat Clear Calc 111.36, Est GFR (MDRD) Non-Af 99, BUN/Creatinine Ratio 18.3, Glucose 142 H, Hemoglobin A1c 8.7 H, Calcium 8.5, C-React Prot Ext Range <3.00, Triglycerides 1059 H, Cholesterol 236 H, LDL Cholesterol, Calc 2, VLDL Cholesterol 212 H, HDL Cholesterol 22 L, Cholesterol/HDL Ratio 10.73 12/02/24 05:56: POC Glucose 128 H 12/02/24 12:20: POC Glucose 165 H 12/02/24 15:13: ESR 3 Radiography Diagnostic Testing: Radiology Impression Brain MRI 12/01/24 14:27 IMPRESSION: 1. No evidence of intracranial pathology. 2. Pansinusitis with bilateral maxillary mucoceles. 3. Status post FESS as described. Reading Location: [id number] D/C Instructions DC O2, CPAP, BIPAP Needs Home O2 Discharge instructions: No Meaningful Use Info Meaningful Use Meaningful Use Diagnoses (Choose all that apply): None applicable Discharge Plan Admission Admit Date/Time: 12/01/24 14:10 Primary Reason for Your Visit: Abnormal neurological symptoms Attending Provider: Temi Katz Primary Care Provider: [facility] Consulting Providers: Nehemiah Metzger; Delores Mcclendon; Lily Smith; Judy Garcia; Liv Rm; Michael Hanna; Jaquelin Sloan; Dylan Tipton; Enrike Ulrich; Moe Herrera; Deya Woodward; Shelia Weathers; Collin Covington; Tracie Houston; John Escalona; Nelda Ayala; Figueroa Joshi; Gareth Maya; Jimmie Chavez; Kellen Dunbar; Hannawi,Yousef Instructions Patient Instructions: TIA Dc Additional Instructions / Restrictions: DISCHARGE INSTRUCTIONS PLEASE READ *Please take this with you to your next doctors appointment* -It is recommended that you take an aspirin daily, you indicated that you are not taking Plavix so this has been discontinued off of your medicine list - Advised that you follow-up with your primary care physician regarding your elevated cholesterol and continue to take your rosuvastatin, you also need to continue your Jardiance but will need to follow-up with your primary care doctorregarding your blood sugars still being elevated -Please call upon discharge to schedule a close follow-up with your neurologist -Please call your primary care provider's office upon discharge to schedule a hospital follow up within 1 week. -For any concerning signs or symptoms please call 911 or proceed to the nearest emergency department Discharge Orders/Prescriptions Prescriptions: New aspirin 81 mg Tablet,Chewable 81 mg PO BREAKFAST 30 Days Qty: 30 0RF Continued propranolol 10 mg tablet 10 mg PO BID duloxetine 60 mg capsule,delayed release(DR/EC) 120 mg PO DAILY pantoprazole 40 mg tablet,delayed release (DR/EC) 40 mg PO QDAY testosterone cypionate [Depo-Testosterone] 200 mg/mL oil 200 mg IM Q2W rosuvastatin 20 mg tablet 20 mg PO QDAY melatonin 3 MG tablet 9 mg PO QHS trazodone 100 MG tablet 300 mg PO QHS famotidine 20 MG tablet 20 mg PO BID prazosin 5 mg Capsule 10 mg PO QHS diltiazem HCl 60 mg Tablet 60 mg PO BID cholecalciferol (vitamin D3) 50 mcg (2,000 unit) Tablet 50 mcg PO DAILY Jardiance 25 mg Tablet 25 mg PO DAILY Rytary 36.25-145 mg Capsule, Extended Release 4 cap PO 4X/DAY Rx Instructions: takes at 7am,11am,3pm,7pm DO NOT CRUSH OR CHEW, SWALLOW WHOLE diclofenac sodium 1 % gel 4 g topical BID PRN (Reason: OSTEOARTHRITIS) gabapentin 300 mg capsule 300 mg PO QHS sildenafil 100 mg tablet 100 mg PO DAILY PRN (Reason: sexual activity) hydrochlorothiazide 12.5 mg capsule 12.5 mg PO DAILY Patient Comments: I DON'T TAKE IT BECAUSE IT MAKES ME PEE ALL THE TIME. Rx Instructions: TAKE WITH FOOD quetiapine 25 mg tablet 75 mg PO QHS clonazepam [Klonopin] 1 mg tablet 1 mg PO QHS Rx Instructions: administer 30 minutes before bedtime Discontinued clopidogrel 75 mg tablet 75 mg PO DAILY Patient Comments: NO ONE CAN AGREE UPON WHATEVER SO, I WON'T TAKE IT. HE WAS TRYING TO PUSH DEEP BRAIN STIMULATION, SO I WOULD'VE HAD TO COME OFF OF THAT Referrals / [place] [Primary Care Provider, None] - Within 1 Week Disposition Disposition (needs filled in before D/C Order can be placed): Home, Self Care Charges/Coding Visit Charges Inpatient E&M: 91866 Disch Hosp >30min 12/02/24 1638 <Electronically signed by Temi Katz MD> Cosigner Signature (if applicable): CC: Dr. Temi Katz MD; [facility]~ Signed [facility] Work Phone: evaluation + Plan note No data available for this section [facility] Evaluation note* Diagnosis Onset Date Resolution Status COVID-19 acute HTN (hypertension) chronic Type 2 diabetes mellitus acu te HLD (hyperlipidemia) [facility] Work Phone: Evaluation note* Diagnosis Onset Date Resolution Status Type 2 diabetes mellitus acu te HLD (hyperlipidemia) [facility] Work Phone: Evaluation note* Diagnosis Onset Date Resolution Status Pain of left calf noneactive Left knee pain noneactive Type 2 diabetes mellitus acu te HLD (hyperlipidemia) chronic Type 2 diabetes mellitus acu te HLD (hyperlipidemia) chronic HTN (hypertension) chronic Sleep apnea chronic Encounter for pre-operative examination noneactive [facility] Work Phone: Evaluation note* Diagnosis Onset Date Resolution Status Type 2 diabetes mellitus acu te HLD (hyperlipidemia) chronic HTN (hypertension) chronic Sleep apnea chronic Encounter for pre-operative examination noneactive Prostatitis, acute noneactiv e Acute cerebrovascular accident (CVA) due to ischemia acute Borderline type 2 diabetes mellitus [facility] Work Phone: Evaluation note* Diagnosis Onset Date Resolution Status Type 2 diabetes mellitus acu te HLD (hyperlipidemia) chronic HTN (hypertension) chronic Sleep apnea chronic Encounter for pre-operative examination noneactive Prostatitis, acute noneactiv e CVA (cerebral vascular accident) noneactive Acute diverticulitis noneact richard Nausea and vomiting noneacti ve [facility] Work Phone: Evaluation note* Diagnosis Onset Date Resolution Status Prostatitis, acute noneactiv e CVA (cerebral vascular accident) noneactive Acute diverticulitis noneact richard Nausea and vomiting noneacti ve [facility] Work Phone: Evaluation noteNo assessment information available [facility] Work Phone: evaluation note* Diagnosis Onset Date Resolution Status Abdominal pain chronic Alternating constipation and diarrhea chronic GERD (gastroesophageal reflux disease) chronic [facility] Work Phone: Evaluation note* Diagnosis Onset Date Resolution Status Abdominal pain chronic Alternating constipation and diarrhea chronic GERD (gastroesophageal reflux disease) chronic Acute stroke due to ischemia acute Chest pressure acute Type 2 diabetes mellitus acu te HLD (hyperlipidemia) chronic HTN (hypertension) chronic Parkinsons disease chronic [facility] Work Phone: Evaluation note* Diagnosis Onset Date Resolution Status Wrist pain acute Chest pressure resolved Cellulitis of right wrist ac ruby De Quervain's tenosynovitis, right acute Chest pain acute [facility] Work Phone: evaluation note* Diagnosis Onset Date Resolution Status Wrist pain acute Chest pressure resolved Cellulitis of right wrist ac ruby De Quervain's tenosynovitis, right acute Chest pain resolved [id number] resolved Cough acute [facility] Work Phone: Evaluation note* Diagnosis Rhinosinusitis- Primary Unspecified sinusitis (chronic) [facility] Diagnosis Onset Date Resolution Status Admit Date Difficulty swallowing acute Sep 2024 8:14am Melena acute October 8:14am [facility] Work Phone: History and physical note Author Jamee Phillips [facility] January 10, 2023 7:45pm Note Date/Time January 10, 2023 6:39pm [facility] Medical Records Department [address] [place] [address] H&P Exam - Hospitalist 01/10/23 2266 MR#: [id number] Acct: [id number] Name: KRISHAN BURNHAM Rep #:[id number] : 1965 57 From: Jamee Phillips MD PCP: [place] Status:ADM IN Location: ICU [id number] HPI - [...] of demyelination who now re-presents to the [facility] ED on 01/10/23 withhistory of onset [...] alert and TNK was recommended and initiated. [facility] Medical History Abdominal pain Acute cerebrovascular accident [...] upper extremity and right lower extremity, appropriate [id number] and [id number], equivocal Babinski, sensation still with paresthesias to [...] % (Auto) 64.2, Lymph % (Auto) 23.5, Coamo % (Auto) 10.0, Eos % (Auto) 1.8, [...] CTA 01/10/23 17:34 IMPRESSION: undefined ADDENDUM: 01/10/23 1822 IMPRESSION: undefined Brain CT 01/10/23 17:35 IMPRESSION: [...] of demyelination who now re-presents to the [facility] ED on 01/10/23 withhistory of onset [...] TNK administered in the ED, will request automation qa analyst consultation per protocol, will plan CT head [...] tPA administration. Charges/Coding Visit Charges Inpatient E&M: 03955 Init Hosp L3 01/10/231944 <Electronically signed by Jamee Phillips MD> Cosigner Signature (if applicable): CC: Dr. Jamee Phillips MD; [facility]~ Signed [facility] Work Phone: History and physical note Author Temi Katz [facility] Note Date/Time December 01, 2024 4: 21pm [facility] Medical Records Department [address] [place] [address] H&P Exam - Hospitalist 12/01/24 1409 MR#: [id number] Acct: [id number] Name: KRISHAN BURNHAM Rep #:[id number] : 1965 59 From: Temi Katz MD PCP: [facility] Status:ADM DAVIAN Location: [place] [address] HPI - General General Date of Admission: 12/01/24 Date of Service: 12/01/24 Chief Complaint: Left sided weakness HPI Narrative KRISHAN BURNHAM, is a 59-year-old male history of GERD, Parkinson's, hypertension, diabetes, CVA, depression and anxiety who presented [facility] ED 12/01/2024 due to waking up with left neck pain, left-sided tunnel vision, left- sided weakness and pain with swallowing. Stroke call made in the ED. Temp98.7, heart rate of 80, blood pressure 155/98, respirate 16 pulse ox 98% on roomair. CBC unremarkable, troponin 9, BMP with bicarb of 13 and a gap of 20 with glucose 178 otherwise within normal limits CT brain and CT head and neck no acute process, teleneurology evaluated and recommended admission for stroke ruleout. Hospitalist contacted for admission. Patient evaluated at bedside. Pt reportedly woke up this AM with a right sided headache, left eye tunnel vision, whole left half of his face with tingling as well as reported weakness of left upper and lower extremity but primarily was reporting increase in joint pain in all of the joints on his left side. Additionally he reported some increased difficulty swallowing, has had difficulty swallowing recently and is supposed toundergo an outpatient swallow eval but said this morning he noticed it was worse. Presently in the ED still has slight headache and reports all of the symptoms are better than they were but still present. Denies fevers or chills, does have chronic abdominal pain with intermittent diarrhea and constipation andsome nausea for which she is scheduled to undergo outpatient colonoscopy and upper endoscopy. [facility] Medical History BMI 34.0-34.9,adult Left ventricular hypertrophy [...] with anxiety Abdominal pain Diverticulitis Home Medications ?Medication ?Instructions ?Recorded ?Last Taken ?Type melatonin 3 mg tablet 9 mg PO QHS SLEEP 05/12/19 0 03/15/23 History trazodone 100 mg tablet 300 mg PO QHS SLEEP 05/12/19 08/01/23 History famotidine 20 mg tablet 20 mg PO BID GERD 02/17/20 0 08/02/23 History propranolol 10 mg tablet 10 mg PO BID HYPERTENSION AN D 02/16/21 08/02/23 History ANXIETY carbidopa ER 36.25 mg-levodopa 145 4 cap PO 4X/DAY Par kinsons 11/30/21 08/02/23 History mg capsule,extended release (Rytary) cholecalciferol (vitamin D3) 50 50 mcg PO DAILY SUPPLE MENT 11/30/21 08/02/23 History mcg (2,000 unit) tablet diltiazem HCl 60 mg tablet 60 mg PO BID HYPERTENSION/A DARRYL 11/30/21 03/16/23 History empagliflozin 25 mg tablet 25 mg PO DAILY DIABETES 06/1808/02/23 History (Jardiance) prazosin 5 mg capsule 10 mg PO QHS HYPERTENSION 08/02/23 History duloxetine 60 mg capsule,delayed 120 mg PO DAILY DEPRE SSION 03/29/22 08/02/23 History release diclofenac sodium 1 % topical gel 4 g topical BID PRN OSTEOARTHRITIS 03/16/23 Unknown History gabapentin 300 mg capsule 300 mg PO QHS RESTLESS LEG S YNDROME 03/16/23 03/15/23 History sildenafil 100 mg tablet 100 mg PO DAILY PRN sexual a ctivity 03/16/23 Unknown History pantoprazole 40 mg tablet,delayed 40 mg PO QDAY GERD 0 11/25/24 Unknown History release rosuvastatin 20 mg tablet 20 mg PO QDAY HIGH CHOLESTER OL 11/25/24 Unknown History testosterone cypionate 200 mg/mL 200 mg IM Q2W LOW ANNEL TOSTERONE 11/25/24 Unknown History intramuscular oil (Depo-Testosterone) clonazepam 1 mg tablet (Klonopin) 1 mg PO QHS PANIC DI SORDER 12/01/24 Unknown History clopidogrel 75 mg tablet 75 mg PO DAILY STROKE PREVEN TION 12/01/24 Unknown History hydrochlorothiazide 12.5 mg capsule 12.5 mg PO DAILY H YPERTENSION 12/01/24 Unknown History quetiapine 25 mg tablet 75 mg PO QHS NIGHT TERRORS 1 Unknown History Allergy/AdvReac Type Severity Reaction Status Date / Time No Known Allergies Allergy Verified 12/01/24 12:27 Family History (Updated 11/25/24 @ 08:39 by [...] type: does not use ROS ROS Narrative General: Denies fever/chills HENT: Right posterior headache, denies stuffy nose, denies sore throat but does report trouble swallowing EYES: Tunnel vision left eye Resp: Denies cough, denies shortness of breath Cardiac: Denies chest pain GI: Has had chronic abdominal pain and intermittent diarrhea and constipation for which she is being worked up on an outpatient basis : Denies changes in urination Extremity: Denies swelling MSK: Weakness in upper and lower left extremities, joint pains on all of the joints on the left Neuro: Reports some paresthesias on left side of face Heme: Denies any bleeding or bruising Skin: Denies rashes Psychiatric: No complaints voiced Vital Signs Vital Signs Vital Signs: 12/01/24 12:26 12/01/24 12:26 12/01/24 12:28 Temperature 98.7 F Temperature Source Oral Pulse Rate 80 80 Respiratory Rate 16 14 Respiratory Effort Respiratory Pattern Blood Pressure 155/90 H 155/90 H Blood Pressure Mean 111 111 Pulse Ox 98 98 Oxygen Delivery Method Room Air Room Air Room Air 12/01/24 12:53 12/01/24 13:16 12/01/24 13:33 Temperature Temperature Source Pulse Rate 75 75 71 Respiratory Rate 16 14 18 Respiratory Effort Respiratory Pattern Blood Pressure 153/83 H 106/74 129/76 H Blood Pressure Mean 106 84 93 Pulse Ox 97 98 97 Oxygen Delivery Method Room Air Room Air Room Air 12/01/24 13:39 Temperature Temperature Source Pulse Rate Respiratory Rate Respiratory Effort Normal Respiratory Pattern Normal Blood Pressure Blood Pressure Mean Pulse Ox Oxygen Delivery Method Weight Weight: 102.058 kg Body Mass Index (BMI) 31.4 Physical Exam Narrative General: Alert, oriented, no apparent distress HEENT: Atraumatic, normocephalic Eyes: Anicteric, normal conjunctiva, extraocular movements intact, pupils equal Neck: Supple Respiratory: Clear to auscultation bilaterally, normal respiratory effort Cardiovascular: Regular rate and rhythm GI: Soft, mild tenderness without rebound, guarding, rigidity Extremities: No edema Musculoskeletal: Strength 5 out of 5 in right upper extremity, 5 out of 5 left upper extremity, 5 out of 5 right lower extremity, 4+ out of 5 left lower extremity though there seem to be effort with 5 out of 5 at the beginning of left lower extremity test with subsequent decrease and drop Neuro: Subjective decreased sensation on entire left side of face, aside from the above otherwise cranial nerves II through XII intact, [id number] withoutsignificant difficulty bilaterally Skin: No rashes appreciated Psych: Cooperative Results Lab / Micro Data 12/01/24 12:30 12/01/24 12:30 Labs: Laboratory Results - last 24 hr 12/01/24 12:30: WBC 6.3, RBC 5.32, Hgb 15.7, Hct 43.6, MCV 82.0, MCH 29.5, MCHC 36.0, RDW Std Deviation 38.3, RDW Coeff of Gail 13.2, Plt Count 158, MPV 9.4, Immature Gran % (Auto) 0.200, Neut % (Auto) 62.1, Lymph % (Auto) 25.0, Coamo % (Auto) 8.4, Eos % (Auto) 3.7, Baso % (Auto) 0.6, Absolute Neuts (auto) 3.9, Absolute Lymphs (auto) 1.57, Nucleated RBC % 0, PT 12.1, INR 0.9, APTT 26.1, Sodium 135, Potassium 4.3, Chloride 102, Carbon Dioxide 13.0 L, Anion Gap 20 H, BUN 14, Creatinine 1.05, Estim Creat Clear Calc 92.15, Est GFR (MDRD) Non-Af 82,BUN/Creatinine Ratio 13.4, Glucose 178 H, Calcium 9.2, Troponin T High Sens 9 D Imaging Radiology Impression Brain CT 12/01/24 12:28 IMPRESSION: No acute intracranial abnormality. No evidence of large territorial ischemic infarct. Normal CTA of the head and neck and [id number]. Stroke Alert: No acute intracranial abnormality. No large vessel occlusion. No large territorial infarct. The critical findings in the findings and impression above were relayed directlyby me by telephone to Ermias German on 12/01/2024 at 12:58 pm with readback verification. Reading Location: [id number] Head/Neck CTA 12/01/24 12:28 IMPRESSION: No acute intracranial abnormality. No evidence of large territorial ischemic infarct. Normal CTA of the head and neck and [id number]. Stroke Alert: No acute intracranial abnormality. No large vessel occlusion. No large territorial infarct. The critical findings in the findings and impression above were relayed directlyby me by telephone to Ermias German on 12/01/2024 at 12:58 pm with readback verification. Reading Location: [facility] Assessment & Plan Assessment/Plan (1) Neurologic abnormality: PLAN: Plan # Left-sided weakness and facial paresthesias -Patient multiple complaints, left-sided weakness, joint pain in his left joints, difficulty swallowing, paresthesias on the entire left side of his head,right sided headache -Admit to tele -CT head w/ no acute process -CTA head and neck no LVO -MRI ordered -NIH q4hr -asa, Plavix statin -Echo -PT/OT/Speech eval -Teleneuro consult placed -Hold BP medications to allow for permissive hypertension for 24 hours unless SBP greater than 220 or DBP greater than 120 or until stroke is ruled out # History of CVA - Previously got TNK and was admitted to our med rehab - Continue statin, patient on aspirin and Plavix, appears he was not actually taking Plavix at home # Parkinson's disease - continue home Sinemet - supportive care #Type 2 diabetes mellitus -Glucose checks and sliding scale insulin #Hypertension - Holding home meds as above #Depression/anxiety -Continue home medications #GERD -Continue PPI #DVT ppx: SCDs Temi Katz MD Charges/Coding Visit Charges Inpatient E&M: 35742 Init Hosp L2 12/01/24 1621 <Electronically signed by Temi Katz MD> Cosigner Signature (if applicable): CC: Dr. Temi Katz MD; [facility]~ Signed [facility] Work Phone: History of Present illness [...] MACHINE. * PARKINSON'S- STABLE * DIVERTICULOSIS- STABLE [facility] Work Phone: History of [...] 21 G NEEDLES BE SENT TO [place]. [place] GIVES HIM 20 G AND THEY HURT WHEN INJECTINGMED [facility] Work Phone: Hospital Discharge instructions Additional Instructions Please follow-up. Continue Augmentin until finished.[facility] Work Phone: Hospital Discharge instructions Additional [...] a progression or worsening of your symptoms. [facility] Work Phone: Hospital Discharge instructions No data available for this section [facility] Hospital Discharge instructionsAdditional Instructions Your labs and CAT scan look good. They do not see any signs of acute diverticulitis at this time. Plenty of fluids. Plenty of fiber to help with any constipation. Tylenol for pain. If not proving follow-up with your primary care provider. [facility] Work Phone: Hospital Discharge instructionsAdditional Instructions DISCHARGE INSTRUCTIONS PLEASE READ *Please take this with you to your next doctors appointment* -It is recommended that you take an aspirin daily, you indicated that you are not taking Plavix so this has been discontinued off of your medicine list - Advised that you follow-up with your primary care physician regarding your elevated cholesterol and continue to take your rosuvastatin, you also need to continue your Jardiance but will need to follow-up with your primary care doctor regarding your blood sugars still being elevated -Please call upon discharge to schedule a close follow-up with your neurologist -Please call your primary care provider's office upon discharge to schedule a hospital follow up within 1 week. -For any concerning signs or symptoms please call 911 or proceed to the nearest emergency department Date of Discharge: 12/02/24[facility] Work Phone: Progress note No data available for this section [facility] Progress note Author Jay Chavez [facility] Note Date/Time November 25, 2024 8:45am [facility] [address] [place] [address] OFFICE VISIT Date of Service: 11/25/24 MR#: [id number] Acct: [id number] Name: KRISHAN BURNHAM Rep #: [id number] : 1965 Provider: Dr. Mya Chavez MD Age/Sex: 59/M Location: [facility] Status: Signed Intake Vital Signs 10/27/24 14:51 [...] 50 50 mcg PO DAILY SUPPLE MENT 10/04/22 09/29/25 History mcg (2,000 unit) tablet diltiazem HCl [...] Q2W 5 11/25/24 History intramuscular oil (Depo-Testosterone) PFSH Medical History BMI [...] General: cooperative Orientation: alert and oriented x3 HENNY Head: normal to inspection Neck Neck: normal [...] all the risks. Jay Chavez MD Pager: [facility] [address] [place] [address], [address] [place] [address] Office: Coding Level of Care Code Off vis,est,level 3 Diagnoses Difficulty swallowing R13.10 Melena K92.1 11/25/24 0845 <Electronically signed by Jay elaine MD> Date _ Jay Fajardo Signature: Date (if applicable) CC: ~ [facility] Work Phone: Reason for referral (narrative)No reason for referral information [facility]WSt[facility] Work Phone: Assessments Diagnosis Varicose [...] Mother(V17.7, Z82.61) Status:Active H/O heart artery stent: Fat er(V45.82, Z95.5) Status:Active Family history of ulcerative [...] Documents on File Type Date Recorded Patient Machine Ii Cutter Expl anation Advance Directives and Livin g Will 07/04/2018 7:02 AM Advance Directive Response Recorded Date/ Time Living Will No February 09, 11:26pm Power of Electric Motorman No February 09, 2021 11:26pm Advance Directive Response Recorded Date/ Time Living Will No August 04, 2021 4 :48pm Power of Electric Motorman No August 04, 2021 4:48pm Advance Directive Response Recorded Date/ Time Living Will No November 30 3:49pm Power of Electric Motorman No November 30 3:49pm Advance Directive Response Recorded Date/ Time Living Will No November 30 5:34pm Power of Electric Motorman No November 30 5:34pm Advance Directive Response Recorded Date/ Time Living Will No November 30 4:34pm Power of Electric Motorman No November 30 4:34pm Advance Directive Response Recorded Date/ Time Living Will No January 14 3:05pm Power of Electric Motorman No January 14, 2022 3:05pm Advance Directive Response Recorded Date/ Time Living Will No March 24 9:24am Power of Electric Motorman No March 24, 2022 9:24am Advance Directive Response Recorded Date/ Time Living Will No May 26, 2022 11:45am Power of Electric Motorman No May 26 11:45am Advance Directive Response Recorded Date/ Time Living Will No June 29, 2022 11 :54am Power of Electric Motorman No June 29, 2022 11:54am Advance Directive Response Recorded Date/ Time Living Will No January 10 5:43pm Power of Electric Motorman No January 10, 2023 5:43pm Advance Directive Response Recorded Date/ Time Name of Medical Power of Electric Motorman GUERA/ March 16, 2023 5:09pm Living Will Yes March 16 5:09pm Power of Electric Motorman Yes March 16, 2023 5:09pm Advance Directive Response Recorded Date/ Time Name of Medical Power of Electric Motorman GUERA/ March 16, 2023 5:09pm Living Will No March 16 9:54pm Power of Electric Motorman No March 16, 2023 9:54pm Advance Directive Response Recorded Date/ Time Do you have a Healthcare Power of Electric Motorman? Yes September 17, 2024 11:06am Advance Directive Response Recorded Date/ Time Do you have a Healthcare Power of Electric Motorman? Yes September 17, 2024 11:06am Do you have a Healthcare Power of Electric Motorman? No October 27, 2024 5:20pm Advance Directive Response Recorded Date/ Time Do you have a Healthcare Power of Electric Motorman? Yes September 17, 2024 11:06am Do you have a Healthcare Power of Electric Motorman? No October 27, 2024 5:20pm Do you have a Healthcare Power of Electric Motorman? Yes December 01, 2024 2:38pm Name of Medical Power of Electric Motorman Guera Burnham December 01, 2024 2:38pm Discharge Instructions * Instructions* Linda Corrales RN [...] through Care Everywhere. * CARDIAC CATHETERIZATION: LEFT (TAJIK) documented in this encounter Chief Complaint * A telephone visit (audio only) between the patient (at the originating site) and the provider (at the distant site) was utilized to provide this telehealth service. * Verbal consent was requested and obtained from KRISHAN BURNHAM on this date, 09/23/2020 03:00 PM , fora telehealth visit. * VIRTUAL: [phone]. Congestion, PRADO, nausea. Chief Complaint and Reason [...] S/P TPA CVA S/P TPA [facility] FU. 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 keep as 1hr diverticulitis STOOL Reason for Visit Type 2 diabetes britney itus HLD (hyperlipidemia) HTN (hypertension) Sleep apnea Encounter for pre-operative examination Prostatitis, acute CVA (cerebral vascular accident) Acute diverticulitis Nausea and vomiting Chief Complaint PROSTATE OR BLADDER INFECTION CVA S/P TPA CVA S/P TPA CVA S/P TPA CVA S/P TPA CVA S/P TPA H[facility] STROKE [facility] FU. 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 keep as 1hr diverticulitis STOOL [...] wrist De Quervain's tenosynovitis, right Chest pain [id number] Cough Chief Complaint Admit Date chest September [...] 25 8:14am Melena November 25, 2024 8:14am Chief Complaint Admit Date chest September 17, 2024 11:0 4am abd pain October 27, 2024 2: 50pm COLONOSCOPY November 25, 2024 8:14am CVA R/O December 01, 2024 2: 10pm Reason for Visit Admit Date Difficulty swallowing November 25 8:14am Melena November 25, 2024 8:14am Neurologic abnormality December 01, 2024 2:10pm Chief Complaint Admit Date chest September 17, 2024 11:0 4am abd pain October 27, 2024 2: 50pm COLONOSCOPY November 25, 2024 8:14am CVA R/O December 01, 2024 2: 10pm CVA R/O December 02, 2024 4: 05pm Additional Source Comments (unrecognized sect ion and content) No Status Records FoundNo Status Records FoundNo Status Records FoundNo Status Records FoundNo Status Records FoundNo Status Records FoundNo Status Records FoundNo Status Records FoundNo Status Records FoundNo Status Records FoundNo Status Records FoundNo Status Records FoundNo Status Records Found INFORMATION SOURCE (unrecogn ized section and content) DATE CREATED AUTHOR 08/22/2017 [facility] DATE CREATED AUTHOR AUTHOR'S ORGANIZ ATION 09/06/2017 [facility] DATE CREATED AUTHOR AUTHOR'S ORGANIZ ATION 12/15/2017 [facility] DATE CREATED AUTHOR AUTHOR'S ORGANIZ ATION 01/22/2018 [facility] DATE CREATED AUTHOR AUTHOR'S ORGANIZ ATION 02/16/2018 [facility] DATE CREATED AUTHOR AUTHOR[facility]S ORGANIZ ATION [facility]/17/2018 [facility] DATE CREATED AUTHOR AUTHOR'S ORGANIZ ATION 10/05/2018 [facility] DATE CREATED AUTHOR AUTHOR'S ORGANIZ ATION 09/24/2020 [facility] DATE CREATED AUTHOR AUTHOR'S ORGANIZ ATION 09/26/2020 [facility] DATE CREATED AUTHOR AUTHOR'S ORGANIZ ATION 12/17/2022 Aubrey Gutierrez [facility] DATE CREATED AUTHOR AUTHOR'S ORGANIZ ATION 06/03/2024 [facility] DATE CREATED AUTHOR AUTHOR'S ORGANIZ ATION 07/04/2024 [facility] DATE CREATED AUTHOR AUTHOR'S ORGANIZ ATION 12/15/2024 [facility] Josias Singh MD - 07/03/2018 4:17 PM EDT H&P Notes (unrecognized sect ion and content) Josias Singh M.D. [facility] [place] [address] June 28, 2018 Steve Barrios MD [address] [place], [place] [id number] RE: Krishan Burnham : [address] Barrios: CHIEF COMPLAINT: 1. Chest pain. 2. Hospitalization at [facility] on 06/25, for chest discomfort. HISTORY OF [...] 05/23/2013, was abnormal. He went to the [place] and had a cardiac catheterization in [place] at [facility] and he was told that it [...] did not resolve and therefore, went to [facility] and was admitted overnight. His troponins were [...] Other Family Members: Positive. Father had an OH at 52. Smoking: Negative. Diabetes: Negative. MEDICATIONS: [...] Catheterization is 2000 and on 09/24/2013, at [facility] and told it was okay.. 6. He has had cholecystectomy. 7. Vasectomy. 8. Appendectomy. FAMILY HISTORY: Father had OH at age 52. Mother had heart disease. Two brothers, 55 and 49, are in good health. SOCIAL HISTORY: He is for the second time for 13 years, has a total of 6 children with 4 children at home; ages 17, 15, 14, and 5; 17-year-old girl is a senior, goes to [employer] for nursing, will graduate within the next month. He does not smoke or drink alcohol. 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 LABORATORY DATA: From [facility] on 06/26/2018. His white count was 7.9, [...] exercise consistent with angina. 2. Hospitalization at [facility] on 06/25/2018, being discharged on 06/26 with negative troponins. 3. Abnormal Myoview stress test with inferolateral ischemia on 12/29/2017. 4. Normal LV function, EF of 60% by an echocardiogram on 12/29/2017. 5. Normal cardiac catheterization in 2000. 6. Catheterization at [facility] in 2013, where he was told everything was okay, although I do not have the actual report. 7. Hypertension, well controlled. 8. Hyperlipidemia, well controlled. 9. Parkinsonism since 2010, well controlled. 10. Strong family history of coronary artery disease with father having a OH at 52. PLAN: Proceed with cardiac catheterization on 07/04 in [employer]. DISCUSSION: Mr. Burnham is on full medical therapy with nitrates and beta blockers. However, he continues to have chest pain and was recently hospitalized at [facility] for chest pain. His stress test was [...] contact me. Sincerely, JOSIAS SINGH [id number] Doc#: [id number] documented in this encounter Quick Note - [...] Team Status: Active Member Role Status Dates [facility] Primary Care Provider Active Team Status: Active Member Role Status [facility] Primary Care Provider Active Dr. Flavio Concepcion MD Emergency Provider Active Dr. Jamee Phillips MD Admit Provider, Other Provider Active Dr. Frankie Smith MD Other Provider Active Dr. Gamal French DO Attending Provider, Other Provide r Active Dr. Marylu Lynn MD Other Provider Active Dr. Manjinder Mcnally MD Other Provider Active Dr. Rory Garcia MD Other Provider Active Ana Lilia Whitaker VP SITE, VP SITE-C Other Provider Active Dr. Kev Bedoya DO Referring Provider, Other Provid er Active Team Status: Active Member Role Status [facility] Primary Care Provider Active Dr. Flavio Concepcion MD Emergency Provider Active Dr. Jamee Phillips MD Admit Provider, Other Provider Active Dr. Frankie Smith MD Other Provider Active Dr. Gamal French DO Other Provider Active Dr. Marylu Lynn MD Other Provider Active Dr. Manjinder Mcnally MD Other Provider Active Dr. Rory Garcia MD Other Provider Active Ana Lilia Whitaker NP, VP SITE-C Other Provider Active Dr. Kev Bedoya DO Attending Provider, Other Provid er Active Team Status: Active Member Role Status [facility] Primary Care Provider Active Dr. Cristina Duncan MD Attending Provider Active Team Status: Inactive Member Role Status Dates [facility] Primary Care Provider, Referring Provider Active Collin MISHRA, PA Attending Provider Active Team Status: Inactive Member Role Status Dates [facility] Primary Care Provider Active Dr. Flavio Concepcion MD Emergency Provider Active Dr. Jamee Phillips MD Admit Provider, Other Provider Active Dr. Frankie Smith MD Other Provider Active Dr. Gamal French DO Other Provider Active Dr. Marylu Lynn MD Other Provider Active Dr. Manjinder Mcnally MD Other Provider Active Dr. Rory Garcia MD Other Provider Active Ana Lilia Whitaker VP SITE, VP SITE-C Other Provider Active Dr. Kev Bedoya , Attending Provider Active Team Status: Active Member Role Status Dates [facility] Primary Care Provider Active Dr. Xavi Orlando , Emergency Provider Active Dr. Jake Franklin DO Admit Provider, Attending Pr ovider Active Team Status: Active Member Role Status Dates Kev Brittney VP SITE, VP SITE-C Primary Care Provider Active Team Status: Inactive Member Role Status Dates Kev Lugo VP SITE, VP SITE-C Primary Care Provider, Referring P rovider Active [facility] Attending Provider Active Team Status: Active Member Role Status Dates Kev Brittney VP SITE, VP SITE-C Primary Care Provider Active Dr. Flavio Concepcion MD Emergency Provider Active Dr. Jamee Phillips MD Admit Provider, Referring Provider, Other Provider Active Dr. Gamal French DO Attending Provider, Other Provide r Active Dr. Frankie Smith MD Other Provider Active Dr. Manjinder Mcnally MD Other Provider Active Dr. Rory Garcia MD Other Provider Active Ana Lilia Whitaker VP SITE, VP SITE-C Other Provider Active Dr. Leonora Dunbar DO Other Provider Active Team Status: Active Member Role Status Dates Kev Lugo VP SITE, VP SITE-C Primary Care Provider Active Dr. Jose Seth MD Attending Provider Active Team Status: Active Member Role Status Dates Kev Lugo VP SITE, VP SITE-C Primary Care Provider Active Dr. Flavio Concepcion MD Emergency Provider Active Dr. Jamee Phillips MD Admit Provider, Other Provider Active Dr. Gamal French DO Other Provider Active Dr. Frankie Smith MD Other Provider Active Dr. Manjinder Mcnally MD Other Provider Active Dr. Rory Garcia MD Other Provider Active Ana Lilia Whitaker VP SITE, VP SITE-C Other Provider Active Dr. Leonora Dunbar DO Attending Provider, Other Provide r Active Team Status: Active Member Role Status Dates Kev Lugo VP SITE, VP SITE-C Primary Care Provider Active Dr. Flavio Concepcion MD Emergency Provider Active Dr. Jamee Phillips MD Admit Provider, Other Provider Active Dr. Gamal French DO Attending Provider, Other Provide r Active Dr. Frankie Smith MD Other Provider Active Dr. Manjinder Mcnally MD Other Provider Active Dr. Rory Garcia MD Other Provider Active Ana Lilia Whitaker VP SITE, VP SITE-C Other Provider Active Dr. Leonora Dunbar DO Other Provider Active Team Status: Inactive Member Role Status Dates Kev Brittney VP SITE, VP SITE-C Primary Care Provide r, Attending Provider, Referring Provider Active Team Status: Inactive Member Role Status Dates Kev Lugo VP SITE, VP SITE-C Primary Care Provider Active [facility] Attending Provider, Referring Pro vider Active Team Status: Inactive Member Role Status Dates Kev Lugo VP SITE, VP SITE-C Primary Care Provider Active Dr. Flavio Concepcion MD Emergency Provider Active Dr. Jamee Phillips MD Admit Provider, Other Provider Active Dr. Gamal French DO Other Provider Active Dr. Frankie Smith MD Other Provider Active Dr. Manjinder Mcnally MD Other Provider Active Dr. Rory Garcia MD Other Provider Active Ana Lilia Whitaker VP SITE, VP SITE-C Other Provider Active Dr. Leonora Dunbar DO Attending Provider Active Team Status: Active Member Role Status Dates Kev Brittney VP SITE, VP SITE-C Primary Care Provider Active Dr. Leonora Dunbar DO Attending Provider, Referring Pro vider Active Team Status: Inactive Member Role Status Dates Kev Lugo VP SITE, VP SITE-C Primary Care Provider Active Dr. Bib Beavers DO Attending Provider, Emergency Provide r Active Team Status: Inactive Member Role Status Dates Kev Lugo VP SITE, VP SITE-C Primary Care Provider Active Dr. Tarsha Power DO Emergency Provider Active Team Status: Inactive Member Role Status Dates Kev Linaresder VP SITE, VP SITE-C Primary Care Provider Active Dr. Tarsha Power DO Attending Provider, Emergency P rovider Active Team Status: Inactive Member Role Status Dates Kev Lugo VP SITE, VP SITE-C Primary Care Provider Active Dr. Deo Rodriguez DO Emergency Provider Active Team Status: Inactive Member Role Status Dates Kev Lugo VP SITE, VP SITE-C Primary Care Provider, Referring P rovider Active Lala M Camden VP SITE, VP SITE-C Attending Provider Active Team Status: Inactive Member Role Status Dates Kev Brittney VP SITE, VP SITE-C Primary Care Provider Active Dr. Deo Rodriguez , Attending Provider, Emergency Pro vider Active Team Status: Active Member Role Status Dates Kev Linaresder VP SITE, VP SITE-C Primary Care Provider Active Lalaobed Hannah VP SITE, VP SITE-C Attending Provider, Referrin g Provider Active Team Status: Inactive Member Role Status Dates Kev Linaresder VP SITE, VP SITE-C Primary Care Provider Active Lala Hannah VP SITE, VP SITE-C Attending Provider Active Team Status: Inactive Member Role Status Dates Kev Linaresder VP SITE, VP SITE-C Primary Care Provider Active Lalaobed Hannah VP SITE, VP SITE-C Attending Provider, Referrin g Provider Active Team Status: Active Member Role Status Dates Kev Brittney VP SITE, VP SITE-C Primary Care Provider, Referring P rovider Active Dr. Timur Abreu DO Attending Provider, Other Prov ider Active Team Status: Inactive Member Role Status Dates Kev Brittney VP SITE, VP SITE-C Primary Care Provider, Referring P rovider Active Dr. Timur Abreu DO Attending Provider Active Team Status: Inactive Member Role Status Dates Kev Brittney VP SITE, VP SITE-C Referring Provider Active Dr. Timur Abreu DO Attending Provider Active [facility] Primary Care Provider Active Team Status: Inactive Member Role Status Dates [facility] Primary Care Provider Active [facility] Attending Provider, Referring Provider Active Team Status: Active Member Role Status Dates [facility] Primary Care Provider Active Dr. Flavio Concepcion MD Emergency Provider Active Dr. Jamee Phillips MD Admit Provider, Attending Prov ider Active Dr. Frankie Smith MD Other Provider Active Dr. Gamal French , Other Provider Active Dr. Marylu Lynn MD Other Provider Active Dr. Manjinder Mcnally MD Other Provider Active Dr. Rory Garcia MD Other Provider Active Ana Lilia Whitaker VP SITE, VP SITE-C Other Provider Active Team Status: Active Member Role Status Dates [facility] Primary Care Provider Active Dr. Xavi Orlando , Emergency Provider Active Dr. Jake Franklin DO Admit Provider , Attending Provider, Other Provider Active Team Status: Active Member Role Status Dates [facility] Primary Care Provider Active Dr. Xavi Orlando , Emergency Provider Active Dr. Jake Franklin DO Admit Provider, Other Provid er Active Dr. Tmei Katz MD Attending Provider, Other Provid er Active Dr. Cristina Duncan MD Other Provider Active Team Status: Active Member Role Status Dates [facility] Primary Care Provider Active Dr. Xavi Orlando , DO Emergency Provider Active Dr. Jake Franklin , DO Admit Provider, Other Provid er Active Dr. Temi Katz MD Other Provider Active Dr. Cristina Duncan MD Attending Provider, Other Provid er Active Team Status: Active Member Role Status Dates [facility] Primary Care Provider Active Dr. Xavi Orlando , DO Emergency Provider Active Dr. Jake Franklin , DO Admit Provider, Other Provid er Active Dr. Cristina Duncan MD Other Provider Active Dr. Jake Cox MD Attending Provider, Other Provid er Active Dr. Temi Katz MD Other Provider Active Team Status: Active Member Role Status Dates [facility] Primary Care Provider Active Dr. Xavi Orlando , Emergency Provider Active Dr. Jake Franklin DO Admit Provider, Other Provid er Active Dr. Cristina Duncan MD Other Provider Active Dr. Jake Cox MD Other Provider Active Dr. Temi Katz MD Other Provider Active Dr. Jose Seth MD Attending Provider Active Team Status: Active Member Role Status Dates [facility] Primary Care Provider Active Dr. Jose Seth MD Attending Provider, Referring Pro vider Active Team Status: Inactive Member Role Status Dates [facility] Primary Care Provider Active Dr. Xavi Orlando , Emergency Provider Active Dr. Jake Franklin DO Admit Provider, Other Provid er Active Dr. Cristina Duncan MD Other Provider Active Dr. Jake Cox MD Attending Provider Active Dr. Temi Katz MD Other Provider Active Team Status: Inactive Member Role Status Dates [facility] Primary Care Provider Active Collin MISHRA, [place] Attending Provider Active [employer] Relationship Specialty Start Date End Date Kev [place] [address] PCP - General Family Medicine 11/26/10 Jorge [place] [address] Primary Staff Physician Cardiology 05/15/18 Team Status: Active Member Role/Relationship Status Dates [facility] Primary Care Provider Active Team Status: Inactive Member Role/Relationship Status Dates [facility] Primary Care Provider Active Start: September 17, 2024 End: September 17, 2024 Dr. Bib Beavers DO Emergency Provider Active Start : September 17, 2024 End: September 17, 2024 Team Status: Inactive Member Role/Relationship Status Dates [facility] Primary Care Provider Active Start: September 17, 2024 End: September 17, 2024 Dr. Bib Beavers DO Attending Provider Active Start : September 17, 2024 End: September 17, 2024 Dr. Bib Beavers DO Emergency Provider Active Start : September 17, 2024 End: September 17, 2024 Team Status: Inactive Member Role/Relationship Status Dates [facility] Primary Care Provider Active Start: October 27, 2024 End: October 27, 2024 Dr. Javy Navarro MD Emergency Provider Active S tart: October 27, 2024 End: October 27, 2024 Team Status: Active Member Role/Relationship Status Dates [facility] Primary care physician Active Team Status: Inactive Member Role/Relationship Status Dates [facility] Primary care physician Active Start : September 17, 2024 End: September 17, 2024 Dr. Bib Beavers DO Attending physician Active Star t: September 17, 2024 End: September 17, 2024 Dr. Bib Beavers DO Emergency Department Physician Active Start: September 17, 2024 End: September 17, 2024 Team Status: Inactive Member Role/Relationship Status Dates [facility] Primary care physician Active Start : October 27, 2024 End: October 27, 2024 Dr. Javy Navarro MD Attending physician Active Start: October 27, 2024 End: October 27, 2024 Dr. Javy Navarro MD Emergency Department Physician Ac tive Start: October 27, 2024 End: October 27, 2024 Team Status: Inactive Member Role/Relationship Status Dates [facility] Primary care physician Active Start : November 25, 2024 End: November 25, 2024 [facility] Referring Provider Active Start: Se ptember 2024 End: November 25, 2024 Dr. Jya Chavez MD Attending physician Active Start: November 25, 2024 End: November 25, 2024 Team Status: Active Member Role/Relationship Status Dates [facility] Primary care physician Active Start : December 01, 2024 Dr. Ermias German , Emergency Departm ent Physician Active Start: December 01, 2024 Dr. Temi Katz MD Admitting physician Active Start: December 01, 2024 Dr. Temi Katz MD Attending physician Active Start: December 01, 2024 Nehemiah Metzger MD Nurse Practitioner Active Start : December 01, 2024 Dr. Delores Mcclendon MD Nurse Practitioner Active St art: December 01, 2024 Lily Smith MD Nurse Practitioner Active S tart: December 01, 2024 Dr. Judy Garcia DO Nurse Practitioner Active Start: December 01, 2024 Dr. Liv Rm MD Nurse Practitioner Active St art: December 01, 2024 Dr. Michael Hanna MD Nurse Practitioner Active Start: December 01, 2024 Dr. Jaquelin Sloan MD Nurse Practitioner Active S tart: December 01, 2024 Dr. Dylan Tipton MD Nurse Practitioner Active St art: December 01, 2024 Dr. Enrike Ulrich MD Nurse Practitioner Active S tart: December 01, 2024 Dr. Moe Herrera MD Nurse Practitioner Active Start: December 01, 2024 Dr. Deya Woodward DO Nurse Practitioner Active Start: December 01, 2024 Shelia Weathers MD Nurse Practitioner Active S tart: December 01, 2024 Dr. Collin Covington MD Nurse Practitioner Active Start: December 01, 2024 Dr. Tracie Houston MD Nurse Practitioner Active S tart: December 01, 2024 Dr. John Escalona MD Nurse Practitioner Active Start: December 01, 2024 Dr. Nelda Ayala MD Nurse Practitioner Active Start: December 01, 2024 Dr. Figueroa Joshi MD Nurse Practitioner Active Start: December 01, 2024 Dr. Gareth Maya MD Nurse Practitioner Active Start: December 01, 2024 Dr. Jimmie Chavez MD Nurse Practitioner Active Start: December 01, 2024 Dr. Kellen Dunbar MD Nurse Practitioner Active St art: December 01, 2024 Latricia Gross MD Nurse Practitioner Active St art: December 01, 2024 Team Status: Inactive Member Role/Relationship Status Dates [facility] Primary care physician Active Start : December 01, 2024 End: December 02, 2024 Dr. Ermias German , DO Emergency Departm ent Physician Active Start: December 01, 2024 End: December 02, 2024 Dr. Temi Katz MD Admitting physician Active Start: December 01, 2024 End: December 02, 2024 Dr. Temi Katz MD Attending physician Active Start: December 01, 2024 End: December 02, 2024 Nehemiah Metzger MD Nurse Practitioner Active Start : December 01, 2024 End: December 02, 2024 Dr. Delores Mcclendon MD Nurse Practitioner Active St art: December 01, 2024 End: December 02, 2024 Lily Smith MD Nurse Practitioner Active S tart: December 01, 2024 End: December 02, 2024 Dr. Judy Garcia , Nurse Practitioner Active Start: December 01, 2024 End: December 02, 2024 Dr. Liv Rm MD Nurse Practitioner Active St art: December 01, 2024 End: December 02, 2024 Dr. Michael Hanna MD Nurse Practitioner Active Start: December 01, 2024 End: December 02, 2024 Dr. Jaquelin Sloan MD Nurse Practitioner Active S tart: December 01, 2024 End: December 02, 2024 Dr. Dylan Tipton MD Nurse Practitioner Active St art: December 01, 2024 End: December 02, 2024 Dr. Enrike Ulrich MD Nurse Practitioner Active S tart: December 01, 2024 End: December 02, 2024 Dr. Moe Herrera MD Nurse Practitioner Active Start: December 01, 2024 End: December 02, 2024 Dr. Deya Woodward , Nurse Practitioner Active Start: December 01, 2024 End: December 02, 2024 Shelia Weathers MD Nurse Practitioner Active S tart: December 01, 2024 End: December 02, 2024 Dr. Collin Covington MD Nurse Practitioner Active Start: December 01, 2024 End: December 02, 2024 Dr. Tracie Houston MD Nurse Practitioner Active S tart: December 01, 2024 End: December 02, 2024 Dr. John Escalona MD Nurse Practitioner Active Start: December 01, 2024 End: December 02, 2024 Dr. Nelda Ayala MD Nurse Practitioner Active Start: December 01, 2024 End: December 02, 2024 Dr. Figueroa Joshi MD Nurse Practitioner Active Start: December 01, 2024 End: December 02, 2024 Dr. Gareth Maya MD Nurse Practitioner Active Start: December 01, 2024 End: December 02, 2024 Dr. Jimmie Chavez MD Nurse Practitioner Active Start: December 01, 2024 End: December 02, 2024 Dr. Kellen Dunbar MD Nurse Practitioner Active St art: December 01, 2024 End: December 02, 2024 Latricia Gross MD Nurse Practitioner Active St art: December 01, 2024 End: December 02, 2024 Latricia Gross MD Nurse Practitioner Active St art: December 01, 2024 Team Status: Active Member Role/Relationship Status Dates [facility] Primary care physician Active Start : December 02, 2024 Dr. Ermias German , Emergency Depart ent Physician Active Start: December 02, 2024 Dr. Temi Katz MD Admitting physician Active Start: December 02, 2024 Dr. Temi Katz MD Attending physician Active Start: December 02, 2024 Dr. Temi Katz MD Nurse Practitioner Active Start: December 02, 2024 Nehemiah Metzger MD Nurse Practitioner Active Start : December 02, 2024 Dr. Delores Mcclendon MD Nurse Practitioner Active St art: December 02, 2024 Lily Smith MD Nurse Practitioner Active S tart: December 02, 2024 Dr. Judy Garcia DO Nurse Practitioner Active Start: December 02, 2024 Dr. Liv Rm MD Nurse Practitioner Active St art: December 02, 2024 Dr. Michael Hanna MD Nurse Practitioner Active Start: December 02, 2024 Dr. Jaquelin Sloan MD Nurse Practitioner Active S tart: December 02, 2024 Dr. Dylan Tipton MD Nurse Practitioner Active St art: December 02, 2024 Dr. Enrike Ulrich MD Nurse Practitioner Active S tart: December 02, 2024 Dr. Moe Herrera MD Nurse Practitioner Active Start: December 02, 2024 Dr. Deya Woodward DO Nurse Practitioner Active Start: December 02, 2024 Shelia Weathers MD Nurse Practitioner Active S tart: December 02, 2024 Dr. Collin Covington MD Nurse Practitioner Active Start: December 02, 2024 Dr. Tracie Houston MD Nurse Practitioner Active S tart: December 02, 2024 Dr. John Escalona MD Nurse Practitioner Active Start: December 02, 2024 Dr. Nelda Ayala MD Nurse Practitioner Active Start: December 02, 2024 Dr. Figueroa Joshi MD Nurse Practitioner Active Start: December 02, 2024 Dr. Gareth Maya MD Nurse Practitioner Active Start: December 02, 2024 Dr. Jimmie Chavez MD Nurse Practitioner Active Start: December 02, 2024 Dr. Kellen Dunbar MD Nurse Practitioner Active St art: December 02, 2024 Latricia Gross MD Nurse Practitioner Active St art: December 02, 2024 Source Comments (unrecognize d section and content) In the event this informatio n is protected by the Federal Confidentiality of Alcohol and Drug Abuse Patient Records regulations: The Federal rules restrict any use of the information to criminally investigate or prosecute any alcohol or drug abuse patient.[facility] Reason for Visit (unrecogniz ed section and [...] BE BASED ON THE PRIMARY CLINICAL RECORDS. [employer] provides no warranty or guarantee of the accuracy or completeness of information in this document.
[2025-02-11] MEDS: Lactated Ringers 1,000 ML 15 ML IV (07:18)
--- NOTE | 2025-02-11 08:22 | OP.PROVAT_ITS ---
02/11/2025 Brad Verdin Re : Upper GI endoscopy procedure for Arcenio Hernández Dear Janak This procedure was performed on Tuesday, February 11, 2025. My impressions and recommendations are as follows: Impressions : - Normal esophagus. - Normal stomach. - Normal examined duodenum. - Benign-appearing esophageal stenosis. Dilated. - No specimens collected. Recommendations : - Discharge patient to home. - Resume previous diet. - Continue present medications. My findings are described in the full procedure note, which is enclosed. If I can be of further assistance, please feel free to contact me at Doctor phone number(s): , Work: . Sincerely, Jay Chavez MD 02/11/2025 8:22:14 AM This report has been signed electronically.
--- NOTE | 2025-02-11 08:22 | OP.EGD_ITS ---
Patient Name: Arcenio Hernández Procedure Date: 02/11/2025 7:48 AM Date of : 1965 Age: 59 Procedure: Upper GI endoscopy Indications: Dysphagia Providers: Jay Chavez MD Referring MD: Rito Briceno, Stacker-c Medicines: Propofol per Anesthesia Patient Profile: This is a 59 year old male. Refer to note in patient chart for documentation of history and physical. Complications: No immediate complications. Estimated blood loss: Minimal. Procedure: Pre-Anesthesia Assessment: - Prior to the procedure, a History and Physical was performed, and patient medications and allergies were reviewed. The patient's tolerance of previous anesthesia was also reviewed. The risks and benefits of the procedure and the sedation options and risks were discussed with the patient. All questions were answered, and informed consent was obtained. Prior Anticoagulants: The patient has taken no anticoagulant or antiplatelet agents. After reviewing the risks and benefits, the patient was deemed in satisfactory condition to undergo the procedure. After obtaining informed consent, the endoscope was passed under direct vision. Throughout the procedure, the patient's blood pressure, pulse, and oxygen saturations were monitored continuously. The Endoscope was introduced through the mouth, and advanced to the fourth part of duodenum. The upper GI endoscopy was accomplished without difficulty. The patient tolerated the procedure well. Scope In: 7:57:35 AM Scope Out: 8:06:46 AM Total Procedure Duration Time 0 hours 9 minutes 11 seconds Findings: The esophagus was normal. The stomach was normal. The examined duodenum was normal. One benign-appearing, intrinsic mild stenosis was found at the gastroesophageal junction. This stenosis measured less than one cm (in length). The stenosis was traversed. A TTS dilator was passed through the scope. Dilation with an 18-19-20 mm balloon dilator was performed to 20 mm. The dilation site was examined following endoscope reinsertion and showed no change. Estimated blood loss was minimal. A small hiatal hernia was present. Impression: - Normal esophagus. - Normal stomach. - Normal examined duodenum. - Benign-appearing esophageal stenosis. Dilated. - No specimens collected. Recommendation: - Discharge patient to home. - Resume previous diet. - Continue present medications. Procedure Code(s): --- Professional --- 89440, Esophagogastroduodenoscopy, flexible, transoral; with transendoscopic balloon dilation of esophagus (less than 30 mm diameter) Diagnosis Code(s): --- Professional --- K22.2, Esophageal obstruction R13.10, Dysphagia, unspecified CPT copyright 2021 [employer]. All rights reserved. The codes documented in this report are preliminary and upon plant associate review may be revised to meet current compliance requirements. Jay Chavez MD 02/11/2025 8:22:14 AM This report has been signed electronically. Number of Addenda: 0 Note Initiated On: 02/11/2025 7:48 AM
--- NOTE | 2025-02-11 08:24 | OP.PROVAT_ITS ---
02/11/2025 Brad Verdin Re : Colonoscopy procedure for Arcenio Hernández Dear Janak This procedure was performed on Tuesday, February 11, 2025. My impressions and recommendations are as follows: Impressions : - The entire examined colon is normal on direct and retroflexion views. - No specimens collected. Recommendations : - Discharge patient to home. - Resume previous diet. - Continue present medications. - Repeat colonoscopy in 10 years for screening purposes. My findings are described in the full procedure note, which is enclosed. If I can be of further assistance, please feel free to contact me at Doctor phone number(s): , Work: . Sincerely, Jay Chavez MD 02/11/2025 8:23:41 AM This report has been signed electronically.
--- NOTE | 2025-02-11 08:24 | OP.COLON_ITS ---
Patient Name: Arcenio Hernández Procedure Date: 02/11/2025 8:06 AM Date of : 1965 Age: 59 Procedure: Colonoscopy Indications: Abdominal pain in the left lower quadrant Providers: Jay Chavez MD Referring MD: Brad Verdin Medicines: Propofol per Anesthesia Patient Profile: This is a 59 year old male. Refer to note in patient chart for documentation of history and physical. Last Colonoscopy: more than 3 years ago. Complications: No immediate complications. Procedure: Pre-Anesthesia Assessment: - Prior to the procedure, a History and Physical was performed, and patient medications and allergies were reviewed. The patient's tolerance of previous anesthesia was also reviewed. The risks and benefits of the procedure and the sedation options and risks were discussed with the patient. All questions were answered, and informed consent was obtained. Prior Anticoagulants: The patient has taken no anticoagulant or antiplatelet agents. After reviewing the risks and benefits, the patient was deemed in satisfactory condition to undergo the procedure. After I obtained informed consent, the scope was passed under direct vision. Throughout the procedure, the patient's blood pressure, pulse, and oxygen saturations were monitored continuously. The colonoscope was introduced through the anus and advanced to the cecum, identified by appendiceal orifice and ileocecal valve. The colonoscopy was performed without difficulty. The patient tolerated the procedure well. The quality of the bowel preparation was good. The ileocecal valve, appendiceal orifice, and rectum were photographed. Scope In: 8:10:20 AM Scope Withdrawal Time 0 hours 6 minutes 18 seconds Scope Out: 8:18:31 AM Total Procedure Duration Time 0 hours 8 minutes 11 seconds Findings: The entire examined colon appeared normal on direct and retroflexion views. Impression: - The entire examined colon is normal on direct and retroflexion views. - No specimens collected. Recommendation: - Discharge patient to home. - Resume previous diet. - Continue present medications. - Repeat colonoscopy in 10 years for screening purposes. Procedure Code(s): --- Professional --- 62310, Colonoscopy, flexible; diagnostic, including collection of specimen(s) by brushing or washing, when performed (separate procedure) Diagnosis Code(s): --- Professional --- R10.32, Left lower quadrant pain CPT copyright 2021 [employer]. All rights reserved. The codes documented in this report are preliminary and upon partnership marketing manager review may be revised to meet current compliance requirements. Jay Chavez MD 02/11/2025 8:23:41 AM This report has been signed electronically. Number of Addenda: 0 Note Initiated On: 02/11/2025 8:06 AM
--- NOTE | 2025-02-11 08:35 | PCM.POST.ANE ---
Anesthesia: Postop Eval I Current Vital Signs Temperature: 97 F Pulse Rate: 84 Blood Pressure: 105/73 Respiratory Rate: 16 Pulse Ox: 97 Oxygen Delivery Method: Room Air Assessment Airway patent: Yes Spontaneous unlabored respirations: Yes Mental status: Awake and Calm nausea: No Vomiting: Yes Anesthesia Complication: Yes Anesthesia Complication Comment:: pt emesis prior to scope insertion and despite anti-emetic tx with metoclopromide, diphenhydramine, ondansetron, and dexamethasone Fluid Hydration Crystalloid volume administer (ml): 400 Total IV fluid infused: 400 Progress Note Anesthesia document: Postop Eval 1 completed: Yes
--- NOTE | 2025-02-11 08:56 | PCM.POSTANE2 ---
Anesthesia Postop Eval I Sum Postop Eval Completion status Anesthesia document: Postop Eval 1 completed: Yes Anesthesia Postop Eval I Summary Anesthesia Postop Eval I Summary: Anesthesia Postop Eval I: Assessment Summary Airway patent Yes 02/11/25 08:36 [email or web address] Spontaneous unlabored Yes 02/11/25 08:36 [email or web address] respirations Mental status Awake,Calm 02/11/25 08:36 [email or web address] nausea No 02/11/25 08:36 [email or web address] Vomiting Yes 02/11/25 08:36 [email or web address] Anesthesia Postop Eval I: Fluid Summary Crystalloid volume administer 400 02/11/25 08:36 [email or web address] (ml) Colloids volume administered ( ml) Blood Product volume administered (ml) Total IV fluid infused 400 02/11/25 08:36 [email or web address] Anesthesia Postop Eval I: Summary Notes Anesthesia Complication Yes 02/11/25 08:36 [email or web address] Anesthesia Complication pt emesis prior to 02/11/25 08:36 [email or web address] Comment: scope insertion and despite anti- emetic tx with metoclopromide, diphenhydramine, ondansetron, and dexamethasone Post-operative progress note Anesthesia: Postop Eval II Evaluation Mental status: Awake Pain Level: 0 nausea: No Vomiting: No
== END 2025-02-11 09:54 | disposition home or self-care (01) ==
LOC: EN 06:47 → AC 06:48
PROVIDERS: PCP Nurse Practitioner Family; Referring Provider Nurse Practitioner Family; Visit Provider Surgery
PROC: 0DJD8ZZ Inspection of Lower Intestinal Tract, Via Natural or Artificial Opening Endoscopic (ICD-10-PCS; CPT 45378; principal; 2025-02-11 07:55)
DX: K22.2 Esophageal obstruction (principal); E11.9 Type 2 diabetes mellitus without complications; Z79.899 Other long term (current) drug therapy; E78.5 Hyperlipidemia, unspecified; Z87.891 Personal history of nicotine dependence; I10 Essential (primary) hypertension; K21.9 Gastro-esophageal reflux disease without esophagitis; Z79.82 Long term (current) use of aspirin
CPT/HCPCS: 43249; 45378; 82962; 94640; J2405